=== PATIENT | male | born 1960 | race African-American/Black ===

== ENCOUNTER 2017-03-24 17:47 | Inpatient (IN) | payer SELFPAY ==
--- NOTE | 2017-03-24 20:07 | PDOC ---
History of Present Illness <Ghassan Black - Last Filed: 03/24/17 22:18> - General History Source: Patient, Family (Daughter ) Exam Limitations: No Limitations - History of Present Illness Initial Comments: 03/24/17 21:46 The patient is a 56 year old male, with a significant past medical history of hypertension (on dialysis with recent placement of a dialysis catheter in the right chest), who presents to the emergency department with weakness. The patients daughter is at the bedside. She reports that the patient was discharged 4 days ago from a hospital in [place] (where she lives) after a two week admission. She reports that the patient was initially seen at that hospital due to persistent hypertension and was ultimately admitted because it was found that he needed to have emergent dialysis. While the patient was admitted to the hospital in [place], he had a dialysis catheter placed in the right chest. The patients daughter states that the patient most recently received dialysis 5 days ago while he was admitted to the hospital. After being discharged from the hospital in [place], the patient came home to [place] but has not followed up regarding dialysis nor does he have a PMD to follow-up with. The patient's daughter came to visit the patient today. The patient reported feeling generally weak today so his daughter brought him to the ED for evaluation. Currently in the ED, the patient reports feeling nauseous. The patient denies chest pain or shortness of breath. The patient denies fever, chills, vomiting, diarrhea, melena/bpr or dysuria. The patient is a poor historian, most of the history is provided by the patient's daughter. Allergies: None reported. Past Surgical History: Right Chest Shunt Social History: Non smoker. Denies alcohol or drug use. <Obdulia Lemos - Last Filed: 03/25/17 03:22> - General Chief Complaint: Pain Stated Complaint: WEAK/NAUSEA Past History - Past Medical History Dialysis: Yes (Rt chest shunt) HTN: Yes - Psycho/Social/Smoking Cessation Hx Suicidal Ideation: No Smoking History: Never smoked Information on smoking cessation initiated: No Hx Alcohol Use: No Drug/Substance Use Hx: No Substance Use Type: None <Ghassan Black - Last Filed: 03/24/17 22:18> <Obdulia Lemos - Last Filed: 03/25/17 03:22> - Past Medical History Allergies/Adverse Reactions: Allergies Allergy/AdvReac Type Severity Reaction Status Date / Time No Known Allergies Allergy Verified 03/24/17 17:58 Home Medications: Ambulatory Orders Amlodipine Besylate 10 mg PO DAILY 03/24/17 Calcitriol [Rocaltrol -] 0.25 mcg PO DAILY 03/24/17 Carvedilol 25 mg PO BID 03/24/17 Pantoprazole Sodium 40 mg PO DAILY 03/24/17 Review of Systems - Review of Systems Able to Perform ROS?: Yes Comments:: 03/24/17 20:15 GENERAL/CONSTITUTIONAL: +Weakness. No fever or chills. HEAD, EYES, EARS, NOSE AND THROAT: No change in vision. No ear pain or discharge. No sore throat. CARDIOVASCULAR: No chest pain or shortness of breath. RESPIRATORY: No cough, wheezing, or hemoptysis. GASTROINTESTINAL: +Nausea. No vomiting, diarrhea or constipation. GENITOURINARY: No dysuria, frequency, or change in urination. MUSCULOSKELETAL: No joint or muscle swelling or pain. No neck or back pain. SKIN: No rash. NEUROLOGIC: No headache, vertigo, loss of consciousness, or change in strength/ sensation. ENDOCRINE: No increased thirst. No abnormal weight change. HEMATOLOGIC/LYMPHATIC: No anemia, easy bleeding, or history of blood clots. ALLERGIC/IMMUNOLOGIC: No hives or skin allergy. <Obdulia Lemos - Last Filed: 03/25/17 03:22> *Physical Exam - Vital Signs Last Vital Signs Temp Pulse Resp BP Pulse Ox 98.1 F 81 18 150/97 100 03/24/17 17:56 03/24/17 17:56 03/24/17 17:56 03/24/17 17:56 03/24/17 17:56 <Ghassan Black - Last Filed: 03/24/17 22:18> - Vital Signs Last Vital Signs Temp Pulse Resp BP Pulse Ox 98.1 F 81 18 150/97 100 03/24/17 17:56 03/24/17 17:56 03/24/17 17:56 03/24/17 17:56 03/24/17 17:56 - Physical Exam Comments: 03/24/17 21:11 GENERAL: Awake, alert, and fully oriented, in no acute distress. HEAD: No signs of trauma. EYES: Scleral icterus. PERRLA, EOMI, conjunctiva clear. ENT: Auricles normal inspection, hearing grossly normal, nares patent, oropharynx clear without exudates. Moist mucosa. NECK: Normal ROM, supple, no lymphadenopathy, JVD, or masses. CHEST: Dialysis catheter placed in the right chest. Catheter site is clean, dry and intact with no signs of infection. LUNGS: Breath sounds equal, clear to auscultation bilaterally. No wheezes, and no crackles. HEART: Regular rate and rhythm, normal S1 and S2, no murmurs, rubs or gallops. ABDOMEN: Soft, nontender, normoactive bowel sounds. No guarding, no rebound. No masses. EXTREMITIES: Normal range of motion, no edema. No clubbing or cyanosis. No cords , erythema, or tenderness. NEUROLOGICAL: Cranial nerves II through XII intact. Normal speech, gait deferred. SKIN: Warm, dry, normal turgor, no rashes or lesions noted. <Obdulia Lemos - Last Filed: 03/25/17 03:22> Heart Score/ECG Review #1 ECG reviewed & interpreted by me at: 20:43 (Vent Rate: 68 bpm. Normal sinus rhythm. T wave abnormality, consider lateral ischemia.) <Obdulia Lemos - Last Filed: 03/25/17 03:22> ED Treatment Course - LABORATORY CBC & Chemistry Diagram: 03/24/17 20:30 03/24/17 20:30 <Ghassan Black - Last Filed: 03/24/17 22:18> - LABORATORY CBC & Chemistry Diagram: 03/24/17 20:30 03/24/17 20:30 <Obdulia Lemos - Last Filed: 03/25/17 03:22> Medical Decision Making - Medical Decision Making 03/24/17 22:13 EXAM: RAD/CHEST PA & LAT Reviewed By: Dr. Elaina Manzo IMPRESSION: Borderline cardiomegaly likely due to magnification without evidence of acute lung disease. Call placed to Dr. Adame at 22:08. Connected and case discussed. Call placed to Dr. Ramos at at 22:08. Referred to answering service, awaiting callback. Dr. Damico returned call at 22:11, case discussed. <Obdulia Lemos - Last Filed: 03/25/17 03:22> *DC/Admit/Observation/Transfer - Discharge Dispostion Admit: Yes - Attestations Physician Attestion: 03/24/17 19:58 I, Dr. Ghassan Black, attest that this document has been prepared under my direction and personally reviewed by me in its entirety. I further attest, that it accurately reflects all work, treatment, procedures and medical decision -making performed by me. <Ghassan Black - Last Filed: 03/24/17 22:18> - Attestations Scribe Attestion: 03/24/17 20:14 Documentation prepared by Obdulia Lemos, acting as senior medical technologist for Ghassan Black MD/DO. <Obdulia Lemos - Last Filed: 03/25/17 03:22> Diagnosis at time of Disposition: Hyperkalemia, diminished renal excretion, Acute on chronic kidney failure - Discharge Dispostion Condition at time of disposition: Unchanged/Unknown
[2017-03-24 20:48] LABS: BASOPHIL 1.2 % (0-2.0); EOSINOPHIL 1.5 % (0-4.5); MCH 27.5 pg (25.7-33.7); MCHC 32.8 g/dl (32.0-35.9); MEAN CELL VOLUME 83.8 fl (80-96); MEAN PLT VOLUME 7.2 fl (7.5-11.1); NEUTROPHILS 63.3 % (42.8-82.8); PLATELET COUNT 457 K/MM3 (134-434); RDW 20.3 % (11.9-15.9); WHITE BLOOD COUNT 6.1 K/mm3 (4.0-10.0)
[2017-03-24 20:59] LABS: INR 1.07 (0.82-1.09); PROTHROMBIN TIME (PATIENT) 11.8 SEC (9.98-11.88)
[2017-03-24 21:02] LABS: ACTIVATED PTT 31.5 SECONDS (26.9-34.4)
[2017-03-24 21:05] LABS: VENOUS BLOOD GAS HCO3 20.9 meq/L (19-25); VENOUS PH 7.28 (7.32-7.42)
[2017-03-24 21:08] LABS: ALBUMIN 2.9 g/dl (3.4-5.0); BILIRUBIN,TOTAL 0.3 mg/dL (0.2-1.0)
[2017-03-24 21:13] LABS: COCKROFT - GAULT 6.58; TROPONIN I 0.25 ng/ml (0.00-0.05)
[2017-03-24 22:03] LABS: CREATININE 14.4 mg/dL (0.7-1.3)
[2017-03-24 22:04] LABS: CALCIUM 6.6 mg/dL (8.5-10.1)
[2017-03-25 02:24] VITALS: BMI 23.3
[2017-03-25] MEDS ORDERED: CARVEDILOL 25 MG TABLET (FP) PO ONE (03:00)
--- NOTE | 2017-03-25 09:21 | PN ---
Progress Note (short form) - Note Progress Note: Chief Complaint: Events noted, notes reviewed, progressive weakness with elevated Troponin I level History of Present Illness: Seen and examined on telemetry. Full consult dictated Medications: Current Medications Amlodipine Besylate (Norvasc -) 10 mg PO DAILY [facility] Carvedilol (Coreg -) 25 mg PO BID [facility] Review of Systems - Review of Systems Constitutional: denies: Chills, Fever Cardiovascular: As noted above Respiratory: denies: Cough or Sputum Production Gastrointestinal: denies: Nausea, Vomiting, Diarrhea, Constipation or Abdominal Pain Musculoskeletal: No symptoms reported Neurological: denies: Dizziness or Headaches Vital Signs: Last Vital Signs Temp Pulse Resp BP Pulse Ox 98.6 F 72 18 152/90 100 03/25/17 06:00 03/25/17 06:00 03/25/17 06:00 03/25/17 06:00 03/25/17 02:23 Intake & Output 03/22/17 03/23/17 03/24/17 03/25/17 23:59 23:59 23:59 23:59 Weight 175 lb 162 lb 12.8 oz Constitutional: No Distress, Calm Neck: Supple Negative JVD Respiratory: Clear to A&P Bilaterally Cardiovascular: S1 S2 Regular Rate and Rhythm Gastrointestinal: Soft Benign Normal Bowel Sounds Ext: Negative Edema Lab Data: CBC, BMP 03/24/17 20:30 03/24/17 20:30 Hepatic Panel Total Bilirubin 0.3 mg/dL (0.2-1.0) 03/24/17 20:30 AST 9 U/L (15-37) L 03/24/17 20:30 ALT 12 U/L (12-78) 03/24/17 20:30 Alkaline Phosphatase 76 U/L (45-117) 03/24/17 20:30 Albumin 2.9 g/dl (3.4-5.0) L 03/24/17 20:30 Assessment/Plan ASSESSMENT: 1. Progressive weakness related to acute renal failure, recently initiated on HD , missed dialysis sessions 2. Probable diastolic LV dysfunction with class I-II NYHA classification LV failure, compensated 3. CAD angina pectoris abnormal EKG with evidence of demand ischemia 4. HTN 5. Anemia PLAN: 1. Continue Coreg 2. Continue Norvasc 3. Add ACEI or ARBS since patient has been initiated on HD 4. Echocardiography to evaluate LV function and valvular function 5. HD as per renal service Isabelle Murcia MD
[2017-03-25] MEDS: amLODIPine BESYLATE 5 MG TABLET (FP) PO SCH (09:44)
[2017-03-25] MEDS: CARVEDILOL 25 MG TABLET (FP) PO SCH ×2 (09:44→21:27)
--- NOTE | 2017-03-25 10:49 | CONS ---
DATE OF CONSULTATION: 03/25/2017 REQUESTING PHYSICIAN: Kai Adame MD CHIEF COMPLAINT: Progressive weakness, elevated troponin I, cardiovascular evaluation. HISTORY OF PRESENT ILLNESS: History was obtained from the patient, a 56-year-old male of -[place] descent, with known history of hypertensive cardiovascular disease, recently noted acute renal failure initiated on hemodialysis, who denied diabetes mellitus, hypercholesterolemia, tobacco abuse, or family history of premature coronary artery disease, who presented to [facility] with progressive weakness. Patient apparently was recently hospitalized at a hospital in the [facility] where hemodialysis was initiated in view of progressive renal failure. Patient subsequently was discharged after placement of a permacath. Presenting to [facility] with progressive weakness. Patient denied any chest discomfort. Patient denied any dyspnea, orthopnea, paroxysmal nocturnal dyspnea, or peripheral edema. Patient denied any palpitations, dizziness, lightheadedness, or syncope. PAST MEDICAL HISTORY: Hypertensive cardiovascular disease, recently initiated hemodialysis for progressive renal failure. PAST SURGICAL HISTORY: None. SOCIAL HISTORY: Remote history of tobacco abuse. FAMILY HISTORY: No history of premature coronary artery disease. ALLERGIES: None reported. MEDICAL THERAPY: Currently includes: 1. Coreg 25 mg twice a day. 2. Amlodipine 10 mg once a day. REVIEW OF SYSTEMS: Head and neck: Denies headache, photophobia, blurring of vision. Respiratory: No cough or sputum production. Cardiovascular: As noted above. Gastrointestinal: Denies nausea, vomiting, diarrhea, abdominal discomfort. Genitourinary: No symptoms reported. Musculoskeletal: No symptoms reported. PHYSICAL EXAMINATION: Vital signs: Blood pressure is 152/90 mmHg, pulse rate is 72 beats per minute. Head and neck: Pupils are equally reactive to light and accommodation. Extraocular muscles are intact. Anicteric sclerae. Negative JVD. No bruit appreciated. Chest: Clear to auscultation and percussion. Cardiovascular: S1, S2 regular. No murmurs, clicks, or gallops. Abdomen: Soft, benign. Normoactive bowel sounds. Extremities: Negative edema. Intact distal pulses. No calf tenderness. STUDIES: Electrocardiogram reveals sinus rhythm, poor R-wave progression with non-specific T-wave abnormality. No prior EKG available for comparison. CBC revealed a white cell count of 6.1, hemoglobin 9.9, platelet count 457. Basic metabolic profile revealed a sodium 140, potassium 5.0, BUN 66, creatinine 14.4, glucose 113, AST 9, ALT 12. ASSESSMENT: 1. Progressive weakness, related to acute renal failure. Recently initiated on hemodialysis. Missed dialysis sessions. 2. Probable diastolic left ventricular dysfunction with class 1-2 [place] [employer] classification left ventricular failure, compensated. 3. Coronary artery disease angina pectoris, abnormal electrocardiogram with evidence of demand ischemia. 4. Hypertensive cardiovascular disease. 5. Anemia. PLAN: 1. Continuation of Coreg. 2. Continuation of Norvasc. 3. Addition of LARRY inhibitors or angiotensin receptor blockers since patient has been initiated on hemodialysis. 4. Echocardiography to evaluate left ventricular size and function and valvular function. 5. Hemodialysis as per renal service. Thank you for the kind referral. ONEYDA MENDOZA M.D. [id number]
[2017-03-25] MEDS: VALSARTAN 80 MG TABLET (UD) PO SCH ×2 (12:16→21:27)
[2017-03-25] MEDS ORDERED: HEPARIN NA (PORCINE) 5,000 UNITS/ML 1ML VIAL IVPUSH ONE (12:59)
--- NOTE | 2017-03-25 14:46 | CONSULT ---
Consult Consult Specialty:: Nephrology Reason for Consultation:: ESRD - History of Present Illness Chief Complaint: ESRD on HD History of Present Illness: Pt is a 56 year old male with pmhx of HTN and ESRD who presents to the ER last night as he has not had HD in five days. He was hospitalized in [place] for hypertensive urgency. He was started on HD in the hospital and discharged with a permacath. He has not followed up with anyone. He last dialyzed on . He denies chest pain or shortness of breath. He is a poor historian. He lives in [place] and will need HD placement. - History Source History Provided By: Patient, Medical Record - Past Medical History Cardio/Vascular: Yes: HTN Gastrointestinal: Yes: GERD Renal/: Yes: Renal Failure, Hemodialysis - Past Surgical History Additional Surgical History: permacath - Alcohol/Substance Use Hx Alcohol Use: No - Smoking History Smoking history: Never smoked Have you smoked in the past 12 months: No Home Medications - Allergies Allergies/Adverse Reactions: Allergies Allergy/AdvReac Type Severity Reaction Status Date / Time No Known Allergies Allergy Verified 03/24/17 17:58 - Home Medications Home Medications: Ambulatory Orders Amlodipine Besylate 10 mg PO DAILY 03/24/17 Calcitriol [Rocaltrol -] 0.25 mcg PO DAILY 03/24/17 Carvedilol 25 mg PO BID 03/24/17 Pantoprazole Sodium 40 mg PO DAILY 03/24/17 Family Disease History - Family Disease History Family History: Denies Review of Systems - Review of Systems Constitutional: reports: Malaise Eyes: reports: No Symptoms HENT: reports: No Symptoms Neck: reports: No Symptoms Cardiovascular: reports: No Symptoms Respiratory: reports: No Symptoms Gastrointestinal: reports: No Symptoms Genitourinary: reports: No Symptoms Musculoskeletal: reports: No Symptoms Integumentary: reports: No Symptoms Neurological: reports: No Symptoms Endocrine: reports: No Symptoms Hematology/Lymphatic: reports: No Symptoms Psychiatric: reports: No Symptoms Physical Exam Vital Signs: Vital Signs Temperature 97.8 F 03/25/17 09:00 Pulse Rate 79 03/25/17 09:00 Respiratory Rate 18 03/25/17 09:00 Blood Pressure 121/63 03/25/17 09:00 O2 Sat by Pulse Oximetry (%) 100 03/25/17 09:00 Constitutional: Yes: Calm Eyes: Yes: Conjunctiva Clear HENT: Yes: Atraumatic Neck: Yes: Supple Cardiovascular: Yes: S1, S2 Respiratory: Yes: CTA Bilaterally Gastrointestinal: Yes: Normal Bowel Sounds, Soft Renal/: Yes: WNL Musculoskeletal: Yes: WNL Edema: No Neurological: Yes: Oriented Psychiatric: Yes: Oriented Labs: Laboratory Tests 03/24/17 03/24/17 20:30 20:30 WBC 6.1 Hgb 9.9 L Plt Count 457 H Sodium 140 Potassium 5.0 Chloride 105 Carbon Dioxide 23 Anion Gap 12 BUN 66 H Creatinine 14.4 H* Calcium 6.6 L* Imaging - Results Chest X-ray: Report Reviewed Problem List - Problems (1) ESRD (end stage renal disease) Code(s): N18.6 - END STAGE RENAL DISEASE (2) Hypertension Code(s): I10 - ESSENTIAL (PRIMARY) HYPERTENSION Assessment/Plan Current Medications Generic Name Dose Route Start Last Admin Trade Name Freq PRN Reason Stop Dose Admin Amlodipine Besylate 10 mg 03/25/17 10:00 03/25/17 09:44 Norvasc - PO 10 mg DAILY [facility]TER Administration Carvedilol 25 mg 03/25/17 10:00 03/25/17 09:44 Coreg - PO 25 mg BID WALTER Administration Valsartan 80 mg 03/25/17 10:00 03/25/17 12:16 Diovan - PO 80 mg BID WALTER Administration Impression 1. ESRD 2. HTN 3. hypocalcemia 4. anemia Plan - will arrange for HD today - monitor bp - check phos level - start calcitriol and calcium supplements - check pth level - will need outpt records - check iron studies - please send packet to Jeannie Ramos
[2017-03-25 15:13] LABS: URINE APPEARANCE CLEAR; URINE BILIRUBIN NEGATIVE (NEGATIVE); URINE COLOR STRAW; URINE GLUCOSE (UA) NEGATIVE (NEGATIVE); URINE KETONE NEGATIVE (NEGATIVE); URINE LEUK ESTERASE NEGATIVE (NEGATIVE); URINE NITRITE NEGATIVE (NEGATIVE); URINE UROBILINOGEN NEGATIVE E.U./dl (0.2-1.0)
[2017-03-25 15:27] LABS: URINE BLOOD 1+ (NEGATIVE); URINE PROTEIN 2+ (NEGATIVE)
--- NOTE | 2017-03-25 15:31 | HP ---
Admitting History and Physical - Primary Care Physician PCP: Campos Adame - Admission History of Present Illness: -56 year old male with pmhx of HTN and ESRD who presents to the ER last night as he has not had HD in five days. He was hospitalized in [place] for hypertensive urgency. He was started on HD in the hospital and discharged with a permacath. He has not followed up with anyone. He last dialyzed on . He denies chest pain or shortness of breath. He is a poor historian. He lives in [place] and will need HD placement. - Past Medical History Cardiovascular: Yes: HTN Gastrointestinal: Yes: GERD Renal/: Yes: Renal Failure, Hemodialysis - Smoking History Smoking history: Never smoked Have you smoked in the past 12 months: No - Alcohol/Substance Use Hx Alcohol Use: No Home Medications - Allergies Allergies/Adverse Reactions: Allergies Allergy/AdvReac Type Severity Reaction Status Date / Time No Known Allergies Allergy Verified 03/24/17 17:58 - Home Medications Home Medications: Ambulatory Orders Amlodipine Besylate 10 mg PO DAILY 03/24/17 Calcitriol [Rocaltrol -] 0.25 mcg PO DAILY 03/24/17 Carvedilol 25 mg PO BID 03/24/17 Pantoprazole Sodium 40 mg PO DAILY 03/24/17 Family Disease History - Family Disease History Family History: Denies Physical Examination Vital Signs: Vital Signs Temperature 98.1 F 03/25/17 14:48 Pulse Rate 60 03/25/17 14:50 Respiratory Rate 18 03/25/17 14:50 Blood Pressure 155/100 03/25/17 14:50 O2 Sat by Pulse Oximetry (%) 100 03/25/17 09:00 Constitutional: Yes: No Distress HENT: Yes: Atraumatic Neck: Yes: Supple Cardiovascular: Yes: Regular Rate and Rhythm Respiratory: Yes: CTA Bilaterally Gastrointestinal: Yes: Normal Bowel Sounds Extremities: Yes: WNL Neurological: Yes: Alert, Oriented Problem List - Problems (1) Acute on chronic kidney failure Assessment/Plan: ON HD WILL GET RENAL INVOLVED Code(s): N17.9 - ACUTE KIDNEY FAILURE, UNSPECIFIED N18.9 - CHRONIC KIDNEY DISEASE, UNSPECIFIED (2) ESRD (end stage renal disease) Code(s): N18.6 - END STAGE RENAL DISEASE (3) Hypertension Assessment/Plan: ON MEDS STABLE Code(s): I10 - ESSENTIAL (PRIMARY) HYPERTENSION Assessment/Plan Laboratory Tests 03/24/17 03/24/17 03/24/17 20:30 20:30 20:30 WBC 6.1 RBC 3.60 L Hgb 9.9 L Hct 30.2 L MCV 83.8 MCHC 32.8 RDW 20.3 H Plt Count 457 H MPV 7.2 L Neutrophils % 63.3 Lymphocytes % 21.9 Monocytes % 12.1 H Eosinophils % 1.5 Basophils % 1.2 INR 1.07 PTT (Actin FS) 31.5 VBG pH POC VBG pCO2 POC VBG pO2 Mixed VBG HCO3 Sodium 140 Potassium 5.0 Chloride 105 Carbon Dioxide 23 Anion Gap 12 BUN 66 H Creatinine 14.4 H* Creat Clearance w eGFR 3.59 Random Glucose 113 H Lactic Acid Calcium 6.6 L* Total Bilirubin 0.3 AST 9 L ALT 12 Alkaline Phosphatase 76 Creatine Kinase 66 Troponin I 0.25 H Total Protein 6.0 L Albumin 2.9 L Urine Color Urine Appearance Urine pH Ur Specific Jordan Urine Protein Urine Glucose (UA) Urine Ketones Urine Blood Urine Nitrite Urine Bilirubin Urine Urobilinogen Ur Leukocyte Esterase Blood Type Antibody Screen 03/24/17 03/24/17 03/24/17 20:30 20:30 20:53 WBC RBC Hgb Hct MCV MCHC RDW Plt Count MPV Neutrophils % Lymphocytes % Monocytes % Eosinophils % Basophils % INR PTT (Actin FS) VBG pH 7.28 L POC VBG pCO2 45.9 POC VBG pO2 32.0 Mixed VBG HCO3 20.9 Sodium Potassium Chloride Carbon Dioxide Anion Gap BUN Creatinine Creat Clearance w eGFR Random Glucose Lactic Acid 0.698 Calcium Total Bilirubin AST ALT Alkaline Phosphatase Creatine Kinase Troponin I Total Protein Albumin Urine Color Urine Appearance Urine pH Ur Specific Jordan Urine Protein Urine Glucose (UA) Urine Ketones Urine Blood Urine Nitrite Urine Bilirubin Urine Urobilinogen Ur Leukocyte Esterase Blood Type B POSITIVE Antibody Screen Negative 03/25/17 14:30 WBC RBC Hgb Hct MCV MCHC RDW Plt Count MPV Neutrophils % Lymphocytes % Monocytes % Eosinophils % Basophils % INR PTT (Actin FS) VBG pH POC VBG pCO2 POC VBG pO2 Mixed VBG HCO3 Sodium Potassium Chloride Carbon Dioxide Anion Gap BUN Creatinine Creat Clearance w eGFR Random Glucose Lactic Acid Calcium Total Bilirubin AST ALT Alkaline Phosphatase Creatine Kinase Troponin I Total Protein Albumin Urine Color Straw Urine Appearance Clear Urine pH 6.0 Ur Specific Jordan 1.009 Urine Protein 2+ H Urine Glucose (UA) Negative Urine Ketones Negative Urine Blood 1+ H Urine Nitrite Negative Urine Bilirubin Negative Urine Urobilinogen Negative Ur Leukocyte Esterase Negative Blood Type Antibody Screen Active Medications Generic Name Dose Route Start Last Admin Trade Name Freq PRN Reason Stop Dose Admin Amlodipine Besylate 10 mg 03/25/17 10:00 03/25/17 09:44 Norvasc - PO 10 mg DAILY [facility] Administration Calcitriol 0.25 mcg 03/25/17 15:00 Rocaltrol - PO DAILY [facility] Calcium Acetate 667 mg 03/25/17 17:30 Phoslo - PO TIDCM [facility] Calcium Carbonate/Cholecalciferol 2 tab 03/25/17 15:00 Os-Justin 500+D - PO DAILY [facility] Carvedilol 25 mg 03/25/17 10:00 03/25/17 09:44 Coreg - PO 25 mg BID [facility] Administration Valsartan 80 mg 03/25/17 10:00 03/25/17 12:16 Diovan - PO 80 mg BID [facility] Administration
[2017-03-25 15:57] LABS: COCKROFT - GAULT 5.88
[2017-03-25] MEDS: CALCIUM ACETATE 667 MG CAPSULE (FP) PO SCH (17:57)
[2017-03-25] MEDS: CALCITRIOL 0.25 MCG CAPSULE (FP) PO SCH (17:58)
[2017-03-25] MEDS: CALCIUM 500MG/VIT-D 200 UNITS COMBO TABLET (FP) PO SCH (17:58)
[2017-03-25 19:08] LABS: CALCIUM 7.1 mg/dL (8.5-10.1); COCKROFT - GAULT 13.56; CREATININE 6.5 mg/dL (0.7-1.3)
[2017-03-26] MEDS: CALCIUM ACETATE 667 MG CAPSULE (FP) PO SCH ×3 (07:59→17:26)
--- NOTE | 2017-03-26 08:19 | EKG ---
Test Reason : Blood Pressure : / mmHG Vent. Rate : 068 BPM Atrial Rate : 068 BPM P-R Int : 170 ms QRS Dur : 074 ms QT Int : 408 ms P-R-T Axes : 068 -29 103 degrees QTc Int : 433 ms NORMAL SINUS RHYTHM T WAVE ABNORMALITY, CONSIDER LATERAL ISCHEMIA ABNORMAL ECG NO PREVIOUS ECGS AVAILABLE Confirmed by FRANKIE GARCIA MD ([id number]) on 03/26/2017 8:19:12 AM Referred By: Confirmed By:FRANKIE GARCIA MD
[2017-03-26 09:12] LABS: ALBUMIN 2.6 g/dl (3.4-5.0); BILIRUBIN,TOTAL 0.4 mg/dL (0.2-1.0); CALCIUM 7.1 mg/dL (8.5-10.1); COCKROFT - GAULT 8.25; TOT PROT 5.6 g/dl (6.4-8.2)
[2017-03-26 09:24] LABS: CREATININE 10.5 mg/dL (0.7-1.3)
--- NOTE | 2017-03-26 09:55 | PN ---
Progress Note, Physician History of Present Illness: No chest pain or dyspnea. - Current Medication List Current Medications: Active Medications Amlodipine Besylate (Norvasc -) 10 mg PO DAILY [facility] Last Admin: 03/25/17 09:44 Dose: 10 mg Calcitriol (Rocaltrol -) 0.25 mcg PO DAILY [facility] Last Admin: 03/25/17 17:58 Dose: 0.25 mcg Calcium Acetate (Phoslo -) 667 mg PO TIDCM [facility] Last Admin: 03/26/17 07:59 Dose: 667 mg Calcium Carbonate/Cholecalciferol (Os-Justin 500+D -) 2 tab PO DAILY [facility] Last Admin: 03/25/17 17:58 Dose: 2 tab Carvedilol (Coreg -) 25 mg PO BID [facility] Last Admin: 03/25/17 21:27 Dose: 25 mg Valsartan (Diovan -) 80 mg PO BID [facility] Last Admin: 03/25/17 21:27 Dose: 80 mg - Objective Vital Signs: Vital Signs Temperature 98.5 F 03/26/17 06:00 Pulse Rate 91 H 03/26/17 06:00 Respiratory Rate 18 03/26/17 06:00 Blood Pressure 156/72 03/26/17 06:00 O2 Sat by Pulse Oximetry (%) 98 03/26/17 06:00 Constitutional: Yes: No Distress, Calm Neck: Yes: Supple Cardiovascular: Yes: Regular Rate and Rhythm Respiratory: Yes: Regular, Diminished Gastrointestinal: Yes: Normal Bowel Sounds, Soft Edema: No Labs: CBC, BMP 03/26/17 05:40 INR, PTT INR 1.07 (0.82-1.09) 03/24/17 20:30 - ....Imaging EKG: Report Reviewed (Tele: [facility]) Problem List - Problems (1) Acute on chronic kidney failure Code(s): N17.9 - ACUTE KIDNEY FAILURE, UNSPECIFIED N18.9 - CHRONIC KIDNEY DISEASE, UNSPECIFIED (2) ESRD (end stage renal disease) Code(s): N18.6 - END STAGE RENAL DISEASE (3) Hypertensive cardiomyopathy Code(s): I11.9 - HYPERTENSIVE HEART DISEASE WITHOUT HEART FAILURE I42.9 - CARDIOMYOPATHY, UNSPECIFIED Qualifiers: Heart failure presence: without heart failure Qualified Code(s): I11.9 - Hypertensive heart disease without heart failure (4) Diastolic dysfunction Code(s): I51.9 - HEART DISEASE, UNSPECIFIED (5) Hypocalcemia Code(s): E83.51 - HYPOCALCEMIA Assessment/Plan 03/25/2017 Echo: Normal LV size and fxn, mod cLVH, mild LAE, mild TR, RVSP 30-40 mmHg, mild AR, Tr-mild MI 1. Progressive weakness related to acute renal failure, recently initiated on HD , missed dialysis sessions 2. LV diastolic dysfunction with class I-II NYHA classification LV failure, compensated 3. CAD angina pectoris abnormal EKG with evidence of demand ischemia 4. HTN/HCVD 5. Anemia 6. Hypocalcemia PLAN: 1. Continue Coreg 25 bid 2. Continue Norvasc 10 qd 3. Diovan 80 bid since patient has been initiated on HD 4. HD as per renal service
[2017-03-26] MEDS: VALSARTAN 80 MG TABLET (UD) PO SCH ×2 (09:56→21:43)
[2017-03-26] MEDS: amLODIPine BESYLATE 5 MG TABLET (FP) PO SCH (09:56)
[2017-03-26] MEDS: CALCIUM 500MG/VIT-D 200 UNITS COMBO TABLET (FP) PO SCH (09:56)
[2017-03-26] MEDS: CALCITRIOL 0.25 MCG CAPSULE (FP) PO SCH (09:56)
[2017-03-26] MEDS: CARVEDILOL 25 MG TABLET (FP) PO SCH ×2 (09:56→21:43)
--- NOTE | 2017-03-26 12:45 | PN ---
Progress Note, Physician History of Present Illness: Pt seen and examined at bedside. He is awake and alert. He denies shortness of breath. - Current Medication List Current Medications: Active Medications Amlodipine Besylate (Norvasc -) 10 mg PO DAILY [facility] Last Admin: 03/26/17 09:56 Dose: 10 mg Calcitriol (Rocaltrol -) 0.25 mcg PO DAILY [facility] Last Admin: 03/26/17 09:56 Dose: 0.25 mcg Calcium Acetate (Phoslo -) 667 mg PO TIDCM [facility] Last Admin: 03/26/17 12:07 Dose: 667 mg Calcium Carbonate/Cholecalciferol (Os-Justin 500+D -) 2 tab PO DAILY [facility] Last Admin: 03/26/17 09:56 Dose: 2 tab Carvedilol (Coreg -) 25 mg PO BID [facility] Last Admin: 03/26/17 09:56 Dose: 25 mg Valsartan (Diovan -) 80 mg PO BID [facility] Last Admin: 03/26/17 09:56 Dose: 80 mg - Objective Vital Signs: Vital Signs Temperature 98.7 F 03/26/17 09:00 Pulse Rate 74 03/26/17 09:00 Respiratory Rate 18 03/26/17 09:00 Blood Pressure 135/81 03/26/17 09:00 O2 Sat by Pulse Oximetry (%) 98 03/26/17 09:00 Constitutional: Yes: Calm Eyes: Yes: Conjunctiva Clear HENT: Yes: Atraumatic Cardiovascular: Yes: S1, S2 Respiratory: Yes: CTA Bilaterally Gastrointestinal: Yes: Soft Genitourinary: Yes: WNL Extremities: Yes: WNL Edema: No Neurological: Yes: Oriented Psychiatric: Yes: Oriented Labs: CBC, BMP 03/26/17 05:40 INR, PTT INR 1.07 (0.82-1.09) 03/24/17 20:30 Problem List - Problems (1) ESRD (end stage renal disease) Code(s): N18.6 - END STAGE RENAL DISEASE (2) Hypertension Code(s): I10 - ESSENTIAL (PRIMARY) HYPERTENSION Assessment/Plan Current Medications Generic Name Dose Route Start Last Admin Trade Name Freq PRN Reason Stop Dose Admin Amlodipine Besylate 10 mg 03/25/17 10:00 03/26/17 09:56 Norvasc - PO 10 mg DAILY [facility] Administration Calcitriol 0.25 mcg 03/25/17 15:00 03/26/17 09:56 Rocaltrol - PO 0.25 mcg DAILY [facility] Administration Calcium Acetate 667 mg 03/25/17 17:30 03/26/17 12:07 Phoslo - PO 667 mg TIDCM [facility] Administration Calcium Carbonate/Cholecalciferol 2 tab 03/25/17 15:00 03/26/17 09:56 Os-Justin 500+D - PO 2 tab DAILY [facility] Administration Carvedilol 25 mg 03/25/17 10:00 03/26/17 09:56 Coreg - PO 25 mg BID [facility] Administration Valsartan 80 mg 03/25/17 10:00 03/26/17 09:56 Diovan - PO 80 mg BID [facility] Administration Laboratory Tests 03/25/17 03/26/17 15:45 05:40 Phospholipids Pending PTH Intact Pending PTH Intact Intraop 0 m Pending Impression 1. ESRD 2. HTN 3. hypocalcemia 4. anemia Plan - pt tolerated HD yesterday - will arrange for HD in am - discussed with returned case inspector - will need outpt HD to be set up - check phos levels - monitor bp - will need outpt records - check iron studies Dr Ramos
--- NOTE | 2017-03-26 18:09 | PN ---
Progress Note, Physician - Current Medication List Current Medications: Active Medications Amlodipine Besylate (Norvasc -) 10 mg PO DAILY [facility] Last Admin: 03/26/17 09:56 Dose: 10 mg Calcitriol (Rocaltrol -) 0.25 mcg PO DAILY [facility] Last Admin: 03/26/17 09:56 Dose: 0.25 mcg Calcium Acetate (Phoslo -) 667 mg PO TIDCM [facility] Last Admin: 03/26/17 17:26 Dose: 667 mg Calcium Carbonate/Cholecalciferol (Os-Justin 500+D -) 2 tab PO DAILY [facility] Last Admin: 03/26/17 09:56 Dose: 2 tab Carvedilol (Coreg -) 25 mg PO BID [facility] Last Admin: 03/26/17 09:56 Dose: 25 mg Valsartan (Diovan -) 80 mg PO BID [facility] Last Admin: 03/26/17 09:56 Dose: 80 mg - Objective Vital Signs: Vital Signs Temperature 98 F 03/26/17 14:10 Pulse Rate 71 03/26/17 14:10 Respiratory Rate 18 03/26/17 14:10 Blood Pressure 142/80 03/26/17 14:10 O2 Sat by Pulse Oximetry (%) 98 03/26/17 09:00 Constitutional: Yes: No Distress HENT: Yes: Atraumatic Neck: Yes: Supple Cardiovascular: Yes: Regular Rate and Rhythm Respiratory: Yes: CTA Bilaterally Gastrointestinal: Yes: Normal Bowel Sounds Extremities: Yes: WNL Neurological: Yes: Alert, Oriented Labs: CBC, BMP 03/26/17 05:40 INR, PTT INR 1.07 (0.82-1.09) 03/24/17 20:30 Problem List - Problems (1) Acute on chronic kidney failure Assessment/Plan: ON HD WILL GET RENAL INVOLVED Code(s): N17.9 - ACUTE KIDNEY FAILURE, UNSPECIFIED N18.9 - CHRONIC KIDNEY DISEASE, UNSPECIFIED (2) ESRD (end stage renal disease) Code(s): N18.6 - END STAGE RENAL DISEASE (3) Hypertension Assessment/Plan: ON MEDS STABLE Code(s): I10 - ESSENTIAL (PRIMARY) HYPERTENSION
[2017-03-27 06:11] LABS: HEP B SURFACE AB Non Reactive (.)
[2017-03-27 07:44] LABS: BASOPHIL 1.6 % (0-2.0); MEAN CELL VOLUME 84.3 fl (80-96); MEAN PLT VOLUME 7.4 fl (7.5-11.1); PLATELET COUNT 300 K/MM3 (134-434); RDW 19.8 % (11.9-15.9); WHITE BLOOD COUNT 6.9 K/mm3 (4.0-10.0)
[2017-03-27 08:36] LABS: CALCIUM 7.1 mg/dL (8.5-10.1); COCKROFT - GAULT 7.25; FERRITIN 69.461 ng/ml (16.4-293.9); PHOSPHOROUS 5.4 mg/dL (2.5-4.9)
[2017-03-27 08:57] LABS: CREATININE 12.1 mg/dL (0.7-1.3)
[2017-03-27] MEDS: amLODIPine BESYLATE 5 MG TABLET (FP) PO SCH (09:28)
[2017-03-27] MEDS: CALCITRIOL 0.25 MCG CAPSULE (FP) PO SCH (09:28)
[2017-03-27] MEDS: CALCIUM 500MG/VIT-D 200 UNITS COMBO TABLET (FP) PO SCH (09:28)
[2017-03-27] MEDS: CALCIUM ACETATE 667 MG CAPSULE (FP) PO SCH ×3 (09:28→18:33)
[2017-03-27] MEDS: CARVEDILOL 25 MG TABLET (FP) PO SCH ×2 (09:28→21:22)
[2017-03-27] MEDS: VALSARTAN 80 MG TABLET (UD) PO SCH (09:28)
--- NOTE | 2017-03-27 11:49 | PN ---
Progress Note, Physician History of Present Illness: No chest pain or dyspnea. - Current Medication List Current Medications: Active Medications Amlodipine Besylate (Norvasc -) 10 mg PO DAILY [facility] Last Admin: 03/27/17 09:28 Dose: 10 mg Calcitriol (Rocaltrol -) 0.25 mcg PO DAILY [facility] Last Admin: 03/27/17 09:28 Dose: 0.25 mcg Calcium Acetate (Phoslo -) 667 mg PO TIDCM [facility] Last Admin: 03/27/17 09:28 Dose: 667 mg Calcium Carbonate/Cholecalciferol (Os-Justin 500+D -) 2 tab PO DAILY [facility] Last Admin: 03/27/17 09:28 Dose: 2 tab Carvedilol (Coreg -) 25 mg PO BID [facility] Last Admin: 03/27/17 09:28 Dose: 25 mg Valsartan (Diovan -) 80 mg PO BID [facility] Last Admin: 03/27/17 09:28 Dose: 80 mg - Objective Vital Signs: Vital Signs Temperature 97.8 F 03/27/17 10:57 Pulse Rate 63 03/27/17 10:35 Respiratory Rate 18 03/27/17 10:35 Blood Pressure 152/103 03/27/17 10:35 O2 Sat by Pulse Oximetry (%) 97 03/27/17 09:00 Constitutional: Yes: No Distress, Calm Neck: Yes: Supple Cardiovascular: Yes: Regular Rate and Rhythm Respiratory: Yes: Regular, Diminished Gastrointestinal: Yes: Normal Bowel Sounds, Soft Edema: No Labs: CBC, BMP 03/27/17 05:35 03/27/17 05:35 INR, PTT INR 1.07 (0.82-1.09) 03/24/17 20:30 - ....Imaging EKG: [place] Reviewed [place] [facility] [place] Problem List - Problems (1) Acute on chronic kidney failure Code(s): N17.9 - ACUTE KIDNEY FAILURE, UNSPECIFIED N18.9 - CHRONIC KIDNEY DISEASE, UNSPECIFIED (2) ESRD (end stage renal disease) Code(s): N18.6 - END STAGE RENAL DISEASE (3) Hypertensive cardiomyopathy Code(s): I11.9 - HYPERTENSIVE HEART DISEASE WITHOUT HEART FAILURE I42.9 - CARDIOMYOPATHY, UNSPECIFIED Qualifiers: Heart failure presence: without heart failure Qualified Code(s): I11.9 - Hypertensive heart disease without heart failure (4) Diastolic dysfunction Code(s): I51.9 - HEART DISEASE, UNSPECIFIED (5) Hypocalcemia Code(s): E83.51 - HYPOCALCEMIA Assessment/Plan 03/25/2017 Echo: Normal LV size and fxn, mod cLVH, mild LAE, mild TR, RVSP 30-40 mmHg, mild AR, Tr-mild [place] 1. Progressive weakness related to acute renal failure, recently initiated on HD , missed dialysis sessions 2. LV diastolic dysfunction with class I-II NYHA classification LV failure, compensated 3. CAD angina pectoris abnormal EKG with evidence of demand ischemia 4. HTN/HCVD, BP not at goal 5. Anemia 6. Hypocalcemia PLAN: 1. Continue Coreg 25 bid 2. Continue Norvasc 10 qd 3. Increase Diovan 160 bid as patient has been initiated on HD 4. HD as per renal service, outpatient HD arrangement pending insurance coverage , d/c telemetry
[2017-03-27] MEDS ORDERED: VALSARTAN 80 MG TABLET (UD) PO ONE (12:00)
--- NOTE | 2017-03-27 13:39 | PN ---
Progress Note, Physician History of Present Illness: Pt seen and examined at bedside. He is awake and alert. He tolerated HD today. - Current Medication List Current Medications: Active Medications Amlodipine Besylate (Norvasc -) 10 mg PO DAILY [facility] Last Admin: 03/27/17 09:28 Dose: 10 mg Calcitriol (Rocaltrol -) 0.25 mcg PO DAILY [facility] Last Admin: 03/27/17 09:28 Dose: 0.25 mcg Calcium Acetate (Phoslo -) 667 mg PO TIDCM [facility] Last Admin: 03/27/17 12:22 Dose: 667 mg Calcium Carbonate/Cholecalciferol (Os-Justin 500+D -) 2 tab PO DAILY [facility] Last Admin: 03/27/17 09:28 Dose: 2 tab Carvedilol (Coreg -) 25 mg PO BID [facility] Last Admin: 03/27/17 09:28 Dose: 25 mg Valsartan (Diovan -) 160 mg PO BID [facility] - Objective Vital Signs: Vital Signs Temperature 97.8 F 03/27/17 10:57 Pulse Rate 63 03/27/17 10:35 Respiratory Rate 18 03/27/17 10:35 Blood Pressure 152/103 03/27/17 10:35 O2 Sat by Pulse Oximetry (%) 97 03/27/17 09:00 Constitutional: Yes: Calm Eyes: Yes: Conjunctiva Clear HENT: Yes: Atraumatic Neck: Yes: Supple Cardiovascular: Yes: S1, S2 Respiratory: Yes: CTA Bilaterally Genitourinary: Yes: WNL Musculoskeletal: Yes: WNL Edema: No Neurological: Yes: Oriented Psychiatric: Yes: Oriented Labs: CBC, BMP 03/27/17 05:35 03/27/17 05:35 INR, PTT INR 1.07 (0.82-1.09) 03/24/17 20:30 Problem List - Problems (1) ESRD (end stage renal disease) Code(s): N18.6 - END STAGE RENAL DISEASE (2) Hypertension Code(s): I10 - ESSENTIAL (PRIMARY) HYPERTENSION Assessment/Plan Current Medications Generic Name Dose Route Start Last Admin Trade Name Freq PRN Reason Stop Dose Admin Amlodipine Besylate 10 mg 03/25/17 10:00 03/27/17 09:28 Norvasc - PO 10 mg DAILY [facility] Administration Calcitriol 0.25 mcg 03/25/17 15:00 03/27/17 09:28 Rocaltrol - PO 0.25 mcg DAILY [facility] Administration Calcium Acetate 667 mg 03/25/17 17:30 03/27/17 12:22 Phoslo - PO 667 mg TIDCM [facility] Administration Calcium Carbonate/Cholecalciferol 2 tab 03/25/17 15:00 03/27/17 09:28 Os-Justin 500+D - PO 2 tab DAILY [facility] Administration Carvedilol 25 mg 03/25/17 10:00 03/27/17 09:28 Coreg - PO 25 mg BID [facility] Administration Valsartan 160 mg 03/27/17 22:00 Diovan - PO BID [facility] Laboratory Tests 03/25/17 03/26/17 03/27/17 15:45 05:40 05:35 Phosphorus 5.4 H Phospholipids Pending PTH Intact Pending PTH Intact Intraop 0 m Pending Laboratory Tests 03/27/17 03/27/17 05:35 05:35 Iron Pending Ferritin 69.461 Impression 1. ESRD 2. HTN 3. hypocalcemia 4. anemia Plan - pt tolerated HD - will seed HD set up for outpt - cont current meds - diovan dose increasd - cont phoslo - monitor bp - will need outpt records - check iron studies Dr Ramos
[2017-03-27 14:13] LABS: CALCIUM 7.3 mg/dL (8.7-10.2)
--- NOTE | 2017-03-27 17:31 | PN ---
Progress Note, Physician - Current Medication List Current Medications: Active Medications Amlodipine Besylate (Norvasc -) 10 mg PO DAILY [facility] Last Admin: 03/27/17 09:28 Dose: 10 mg Calcitriol (Rocaltrol -) 0.25 mcg PO DAILY [facility] Last Admin: 03/27/17 09:28 Dose: 0.25 mcg Calcium Acetate (Phoslo -) 667 mg PO TIDCM [facility] Last Admin: 03/27/17 12:22 Dose: 667 mg Calcium Carbonate/Cholecalciferol (Os-Justin 500+D -) 2 tab PO DAILY [facility] Last Admin: 03/27/17 09:28 Dose: 2 tab Carvedilol (Coreg -) 25 mg PO BID [facility] Last Admin: 03/27/17 09:28 Dose: 25 mg Valsartan (Diovan -) 160 mg PO BID [facility] - Objective Vital Signs: Vital Signs Temperature 99.2 F 03/27/17 15:52 Pulse Rate 73 03/27/17 15:52 Respiratory Rate 18 03/27/17 15:52 Blood Pressure 153/95 03/27/17 15:52 O2 Sat by Pulse Oximetry (%) 97 03/27/17 09:00 Constitutional: Yes: No Distress HENT: Yes: Atraumatic Neck: Yes: Supple Cardiovascular: Yes: Regular Rate and Rhythm Respiratory: Yes: CTA Bilaterally Gastrointestinal: Yes: Normal Bowel Sounds Extremities: Yes: WNL Neurological: Yes: Alert, Oriented Labs: CBC, BMP 03/27/17 05:35 03/27/17 05:35 INR, PTT INR 1.07 (0.82-1.09) 03/24/17 20:30 Problem List - Problems (1) Acute on chronic kidney failure Assessment/Plan: ON HD WILL GET RENAL INVOLVED Code(s): N17.9 - ACUTE KIDNEY FAILURE, UNSPECIFIED N18.9 - CHRONIC KIDNEY DISEASE, UNSPECIFIED (2) ESRD (end stage renal disease) Code(s): N18.6 - END STAGE RENAL DISEASE (3) Hypertension Assessment/Plan: ON MEDS STABLE Code(s): I10 - ESSENTIAL (PRIMARY) HYPERTENSION Assessment/Plan pt awaiting insurance...dc planning
[2017-03-27] MEDS: VALSARTAN 160 MG TABLET (UD) PO SCH (21:22)
[2017-03-28] MEDS: CALCIUM ACETATE 667 MG CAPSULE (FP) PO SCH ×3 (08:50→17:29)
[2017-03-28] MEDS: CALCIUM 500MG/VIT-D 200 UNITS COMBO TABLET (FP) PO SCH (09:10)
[2017-03-28] MEDS: amLODIPine BESYLATE 5 MG TABLET (FP) PO SCH (09:10)
[2017-03-28] MEDS: CARVEDILOL 25 MG TABLET (FP) PO SCH ×2 (09:10→21:48)
[2017-03-28] MEDS: VALSARTAN 160 MG TABLET (UD) PO SCH ×2 (09:11→21:48)
[2017-03-28] MEDS: CALCITRIOL 0.25 MCG CAPSULE (FP) PO SCH (09:11)
[2017-03-28] MEDS ORDERED: PT OWN MED DRAWER 7, Y5N ONE (10:02)
--- NOTE | 2017-03-28 15:15 | PN ---
Progress Note, Physician History of Present Illness: No chest pain or dyspnea. - Current Medication List Current Medications: Active Medications Amlodipine Besylate (Norvasc -) 10 mg PO DAILY [facility] Last Admin: 03/28/17 09:10 Dose: 10 mg Calcitriol (Rocaltrol -) 0.25 mcg PO DAILY [facility] Last Admin: 03/28/17 09:11 Dose: 0.25 mcg Calcium Acetate (Phoslo -) 667 mg PO TIDCM [facility] Last Admin: 03/28/17 13:12 Dose: 667 mg Calcium Carbonate/Cholecalciferol (Os-Justin 500+D -) 2 tab PO DAILY [facility] Last Admin: 03/28/17 09:10 Dose: 2 tab Carvedilol (Coreg -) 25 mg PO BID [facility] Last Admin: 03/28/17 09:10 Dose: 25 mg Valsartan (Diovan -) 160 mg PO BID [facility] Last Admin: 03/28/17 09:11 Dose: 160 mg - Objective Vital Signs: Vital Signs Temperature 98.6 F 03/28/17 14:08 Pulse Rate 69 03/28/17 14:08 Respiratory Rate 20 03/28/17 14:08 Blood Pressure 141/89 03/28/17 14:08 O2 Sat by Pulse Oximetry (%) 98 03/28/17 09:00 Constitutional: Yes: No Distress, Calm Neck: Yes: Supple Cardiovascular: Yes: Regular Rate and Rhythm, Murmur (1/6 SM) Respiratory: Yes: Regular, Diminished Gastrointestinal: Yes: Normal Bowel Sounds, Soft Edema: No Labs: CBC, BMP 03/27/17 05:35 03/27/17 05:35 INR, PTT INR 1.07 (0.82-1.09) 03/24/17 20:30 Problem List - Problems (1) Acute on chronic kidney failure Code(s): N17.9 - ACUTE KIDNEY FAILURE, UNSPECIFIED N18.9 - CHRONIC KIDNEY DISEASE, UNSPECIFIED (2) ESRD (end stage renal disease) Code(s): N18.6 - END STAGE RENAL DISEASE (3) Hypertensive cardiomyopathy Code(s): I11.9 - HYPERTENSIVE HEART DISEASE WITHOUT HEART FAILURE I42.9 - CARDIOMYOPATHY, UNSPECIFIED Qualifiers: Heart failure presence: without heart failure Qualified Code(s): I11.9 - Hypertensive heart disease without heart failure (4) Diastolic dysfunction Code(s): I51.9 - HEART DISEASE, UNSPECIFIED (5) Hypocalcemia Code(s): E83.51 - HYPOCALCEMIA Assessment/Plan 03/25/2017 Echo: Normal LV size and fxn, mod cLVH, mild LAE, mild TR, RVSP 30-40 mmHg, mild AR, Tr-mild [place] 1. Progressive weakness related to acute renal failure, recently initiated on HD , missed dialysis sessions 2. LV diastolic dysfunction with class I-II NYHA classification LV failure, compensated 3. CAD angina pectoris abnormal EKG with evidence of demand ischemia 4. HTN/HCVD, BP control improved 5. Anemia 6. Hypocalcemia PLAN: 1. Continue Coreg 25 bid 2. Continue Norvasc 10 qd 3. Maintain on Diovan 160 bid as patient has been initiated on HD 4. HD as per renal service, outpatient HD arrangement pending insurance coverage
--- NOTE | 2017-03-28 15:47 | PN ---
Progress Note, Physician History of Present Illness: Pt seen and examined at bedside. He is awake and alert. - Current Medication List Current Medications: Active Medications Amlodipine Besylate (Norvasc -) 10 mg PO DAILY [facility] Last Admin: 03/28/17 09:10 Dose: 10 mg Calcitriol (Rocaltrol -) 0.25 mcg PO DAILY [facility] Last Admin: 03/28/17 09:11 Dose: 0.25 mcg Calcium Acetate (Phoslo -) 667 mg PO TIDCM [facility] Last Admin: 03/28/17 13:12 Dose: 667 mg Calcium Carbonate/Cholecalciferol (Os-Justin 500+D -) 2 tab PO DAILY [facility] Last Admin: 03/28/17 09:10 Dose: 2 tab Carvedilol (Coreg -) 25 mg PO BID [facility] Last Admin: 03/28/17 09:10 Dose: 25 mg Valsartan (Diovan -) 160 mg PO BID [facility] Last Admin: 03/28/17 09:11 Dose: 160 mg - Objective Vital Signs: Vital Signs Temperature 98.6 F 03/28/17 14:08 Pulse Rate 69 03/28/17 14:08 Respiratory Rate 20 03/28/17 14:08 Blood Pressure 141/89 03/28/17 14:08 O2 Sat by Pulse Oximetry (%) 98 03/28/17 09:00 Constitutional: Yes: Calm Eyes: Yes: Conjunctiva Clear HENT: Yes: Atraumatic Neck: Yes: Supple Cardiovascular: Yes: S1, S2 Respiratory: Yes: CTA Bilaterally Gastrointestinal: Yes: Soft Musculoskeletal: Yes: WNL Edema: No Neurological: Yes: Oriented Psychiatric: Yes: Oriented Labs: CBC, BMP 03/27/17 05:35 03/27/17 05:35 INR, PTT INR 1.07 (0.82-1.09) 03/24/17 20:30 Problem List - Problems (1) ESRD (end stage renal disease) Code(s): N18.6 - END STAGE RENAL DISEASE (2) Hypertension Code(s): I10 - ESSENTIAL (PRIMARY) HYPERTENSION Assessment/Plan Current Medications Generic Name Dose Route Start Last Admin Trade Name Freq PRN Reason Stop Dose Admin Amlodipine Besylate 10 mg 03/25/17 10:00 03/28/17 09:10 Norvasc - PO 10 mg DAILY [facility] Administration Calcitriol 0.25 mcg 03/25/17 15:00 03/28/17 09:11 Rocaltrol - PO 0.25 mcg DAILY [facility] Administration Calcium Acetate 667 mg 03/25/17 17:30 03/28/17 13:12 Phoslo - PO 667 mg TIDCM [facility] Administration Calcium Carbonate/Cholecalciferol 2 tab 03/25/17 15:00 03/28/17 09:10 Os-Justin 500+D - PO 2 tab DAILY [facility] Administration Carvedilol 25 mg 03/25/17 10:00 03/28/17 09:10 Coreg - PO 25 mg BID [facility] Administration Valsartan 160 mg 03/27/17 22:00 03/28/17 09:11 Diovan - PO 160 mg BID [facility] Administration Laboratory Tests 03/25/17 15:45 PTH Intact 746 H Laboratory Tests 03/27/17 03/27/17 05:35 05:35 Iron 34 L Ferritin 69.461 Impression 1. ESRD 2. HTN 3. hypocalcemia 4. anemia Plan - HD in am - cont calcitriol - pending outpt HD placement - cont phoslo - monitor bp - start iron supplements Dr Ramos
[2017-03-28] MEDS: FERROUS SO4 325 MG TABLET (FP) PO SCH (17:29)
--- NOTE | 2017-03-28 19:55 | PN ---
Progress Note, Physician History of Present Illness: no complaints - Current Medication List Current Medications: Active Medications Amlodipine Besylate (Norvasc -) 10 mg PO DAILY [facility] Last Admin: 03/28/17 09:10 Dose: 10 mg Calcitriol (Rocaltrol -) 0.25 mcg PO DAILY [facility] Last Admin: 03/28/17 09:11 Dose: 0.25 mcg Calcium Acetate (Phoslo -) 667 mg PO TIDCM [facility] Last Admin: 03/28/17 17:29 Dose: 667 mg Calcium Carbonate/Cholecalciferol (Os-Justin 500+D -) 2 tab PO DAILY [facility] Last Admin: 03/28/17 09:10 Dose: 2 tab Carvedilol (Coreg -) 25 mg PO BID [facility] Last Admin: 03/28/17 09:10 Dose: 25 mg Ferrous Sulfate (Feosol -) 325 mg PO BIDWM [facility] Last Admin: 03/28/17 17:29 Dose: 325 mg Valsartan (Diovan -) 160 mg PO BID [facility] Last Admin: 03/28/17 09:11 Dose: 160 mg - Objective Vital Signs: Vital Signs Temperature 98.6 F 03/28/17 14:08 Pulse Rate 69 03/28/17 14:08 Respiratory Rate 20 03/28/17 14:08 Blood Pressure 141/89 03/28/17 14:08 O2 Sat by Pulse Oximetry (%) 98 03/28/17 09:00 Constitutional: Yes: No Distress HENT: Yes: Atraumatic Neck: Yes: Supple Cardiovascular: Yes: Regular Rate and Rhythm Respiratory: Yes: CTA Bilaterally Gastrointestinal: Yes: Normal Bowel Sounds Extremities: Yes: WNL Neurological: Yes: Alert, Oriented Labs: CBC, BMP 03/27/17 05:35 03/27/17 05:35 INR, PTT INR 1.07 (0.82-1.09) 03/24/17 20:30 Problem List - Problems (1) Acute on chronic kidney failure Assessment/Plan: ON HD renal on board Code(s): N17.9 - ACUTE KIDNEY FAILURE, UNSPECIFIED N18.9 - CHRONIC KIDNEY DISEASE, UNSPECIFIED (2) ESRD (end stage renal disease) Code(s): N18.6 - END STAGE RENAL DISEASE (3) Hypertension Assessment/Plan: ON MEDS STABLE Code(s): I10 - ESSENTIAL (PRIMARY) HYPERTENSION
[2017-03-29 07:39] LABS: BASOPHIL 1.5 % (0-2.0); EOSINOPHIL 1.4 % (0-4.5); MCHC 32.3 g/dl (32.0-35.9); MEAN CELL VOLUME 83.5 fl (80-96); MEAN PLT VOLUME 7.4 fl (7.5-11.1); NEUTROPHILS 67.4 % (42.8-82.8); PLATELET COUNT 239 K/MM3 (134-434); RDW 19.1 % (11.9-15.9); WHITE BLOOD COUNT 8.6 K/mm3 (4.0-10.0)
[2017-03-29 08:04] LABS: CALCIUM 7.7 mg/dL (8.5-10.1)
[2017-03-29 08:14] LABS: COCKROFT - GAULT 8.51
[2017-03-29 08:17] LABS: CREATININE 10.5 mg/dL (0.7-1.3)
--- NOTE | 2017-03-29 10:50 | PN ---
Progress Note, Physician Chief Complaint: Events noted Seen during dialysis History of Present Illness: Patient was seen and examined. Awake and alert. Chart was reviewed Denies chest pain, SOB or palpitations - Current Medication List Current Medications: Active Medications Amlodipine Besylate (Norvasc -) 10 mg PO DAILY [facility] Last Admin: 03/28/17 09:10 Dose: 10 mg Calcitriol (Rocaltrol -) 0.25 mcg PO DAILY [facility] Last Admin: 03/28/17 09:11 Dose: 0.25 mcg Calcium Acetate (Phoslo -) 667 mg PO TIDCM [facility] Last Admin: 03/28/17 17:29 Dose: 667 mg Calcium Carbonate/Cholecalciferol (Os-Justin 500+D -) 2 tab PO DAILY [facility] Last Admin: 03/28/17 09:10 Dose: 2 tab Carvedilol (Coreg -) 25 mg PO BID [facility] Last Admin: 03/28/17 21:48 Dose: 25 mg Ferrous Sulfate (Feosol -) 325 mg PO BIDWM [facility] Last Admin: 03/28/17 17:29 Dose: 325 mg Valsartan (Diovan -) 160 mg PO BID [facility] Last Admin: 03/28/17 21:48 Dose: 160 mg - Objective Vital Signs: Vital Signs Temperature 97.8 F H 03/29/17 07:10 Pulse Rate 70 03/29/17 10:45 Respiratory Rate 18 03/29/17 10:45 Blood Pressure 162/103 03/29/17 10:45 O2 Sat by Pulse Oximetry (%) 99 03/28/17 21:00 Neck: Yes: Supple Cardiovascular: Yes: Regular Rate and Rhythm, Murmur (aSoft SM), S1, S2 Respiratory: Yes: Diminished Gastrointestinal: Yes: Normal Bowel Sounds, Soft. No: Tenderness Edema: No Labs: CBC, BMP 03/29/17 07:20 03/29/17 07:20 Problem List - Problems (1) Acute on chronic kidney failure Code(s): N17.9 - ACUTE KIDNEY FAILURE, UNSPECIFIED N18.9 - CHRONIC KIDNEY DISEASE, UNSPECIFIED (2) Diastolic dysfunction Code(s): I51.9 - HEART DISEASE, UNSPECIFIED (3) Hypertension Code(s): I10 - ESSENTIAL (PRIMARY) HYPERTENSION Qualifiers: Hypertension type: essential hypertension Qualified Code(s): I10 - Essential (primary) hypertension Assessment/Plan 1. Progressive weakness related to acute renal failure, recently initiated on HD 2. LV diastolic dysfunction with class I-II NYHA classification LV failure, compensated 3. CAD angina pectoris abnormal EKG with evidence of demand ischemia 4. HTN/HCVD 5. Anemia 6. Hypocalcemia PLAN: 1. Continue Coreg 25 mg bid 2. Continue Norvasc 10 mg qd and Diovan 160 bid 3. HD as per renal service Further plans are to follow Mateus Singh MD
[2017-03-29] MEDS: amLODIPine BESYLATE 5 MG TABLET (FP) PO SCH (11:48)
[2017-03-29] MEDS: FERROUS SO4 325 MG TABLET (FP) PO SCH ×2 (11:49→17:21)
[2017-03-29] MEDS: VALSARTAN 160 MG TABLET (UD) PO SCH ×2 (11:49→21:56)
[2017-03-29] MEDS: CALCIUM ACETATE 667 MG CAPSULE (FP) PO SCH ×3 (11:49→17:21)
[2017-03-29] MEDS: CALCIUM 500MG/VIT-D 200 UNITS COMBO TABLET (FP) PO SCH (11:49)
[2017-03-29] MEDS: CARVEDILOL 25 MG TABLET (FP) PO SCH ×2 (11:49→21:56)
[2017-03-29] MEDS: CALCITRIOL 0.25 MCG CAPSULE (FP) PO SCH (11:50)
--- NOTE | 2017-03-29 18:08 | PN ---
Progress Note, Physician History of Present Illness: Pt seen and examined at bedside. He is awake and alert. - Current Medication List Current Medications: Active Medications Amlodipine Besylate (Norvasc -) 10 mg PO DAILY [facility] Last Admin: 03/29/17 11:48 Dose: 10 mg Calcitriol (Rocaltrol -) 0.25 mcg PO DAILY [facility] Last Admin: 03/29/17 11:50 Dose: 0.25 mcg Calcium Acetate (Phoslo -) 667 mg PO TIDCM [facility] Last Admin: 03/29/17 17:21 Dose: 667 mg Calcium Carbonate/Cholecalciferol (Os-Justin 500+D -) 2 tab PO DAILY [facility] Last Admin: 03/29/17 11:49 Dose: 2 tab Carvedilol (Coreg -) 25 mg PO BID [facility] Last Admin: 03/29/17 11:49 Dose: 25 mg Ferrous Sulfate (Feosol -) 325 mg PO BIDWM [facility] Last Admin: 03/29/17 17:21 Dose: 325 mg Valsartan (Diovan -) 160 mg PO BID [facility] Last Admin: 03/29/17 11:49 Dose: 160 mg - Objective Vital Signs: Vital Signs Temperature 98.2 F 03/29/17 17:25 Pulse Rate 72 03/29/17 17:25 Respiratory Rate 20 03/29/17 17:25 Blood Pressure 128/71 03/29/17 17:25 O2 Sat by Pulse Oximetry (%) 99 03/29/17 09:00 Constitutional: Yes: Calm Eyes: Yes: Conjunctiva Clear HENT: Yes: Atraumatic Neck: Yes: Supple Cardiovascular: Yes: S1, S2 Respiratory: Yes: CTA Bilaterally Gastrointestinal: Yes: Normal Bowel Sounds, Soft Genitourinary: Yes: WNL Musculoskeletal: Yes: WNL Edema: No Neurological: Yes: Oriented Psychiatric: Yes: Oriented Labs: CBC, BMP 03/29/17 07:20 03/29/17 07:20 INR, PTT INR 1.07 (0.82-1.09) 03/24/17 20:30 Problem List - Problems (1) ESRD (end stage renal disease) Code(s): N18.6 - END STAGE RENAL DISEASE (2) Hypertension Code(s): I10 - ESSENTIAL (PRIMARY) HYPERTENSION Assessment/Plan Current Medications Generic Name Dose Route Start Last Admin Trade Name Freq PRN Reason Stop Dose Admin Amlodipine Besylate 10 mg 03/25/17 10:00 03/29/17 11:48 Norvasc - PO 10 mg DAILY [facility] Administration Calcitriol 0.25 mcg 03/25/17 15:00 03/29/17 11:50 Rocaltrol - PO 0.25 mcg DAILY [facility] Administration Calcium Acetate 667 mg 03/25/17 17:30 03/29/17 17:21 Phoslo - PO 667 mg TIDCM [facility] Administration Calcium Carbonate/Cholecalciferol 2 tab 03/25/17 15:00 03/29/17 11:49 Os-Justin 500+D - PO 2 tab DAILY [facility] Administration Carvedilol 25 mg 03/25/17 10:00 03/29/17 11:49 Coreg - PO 25 mg BID [facility] Administration Ferrous Sulfate 325 mg 03/28/17 17:30 03/29/17 17:21 Feosol - PO 325 mg BIDWM [facility] Administration Valsartan 160 mg 03/27/17 22:00 03/29/17 11:49 Diovan - PO 160 mg BID [facility] Administration Impression 1. ESRD 2. HTN 3. hypocalcemia improving 4. anemia Plan - pt tolerated HD - blood pressure is improved - cont current meds - cont phoslo - cont iron supplements Dr Ramos
--- NOTE | 2017-03-29 18:23 | PN ---
Progress Note, Physician History of Present Illness: no complaints - Current Medication List Current Medications: Active Medications Amlodipine Besylate (Norvasc -) 10 mg PO DAILY [facility] Last Admin: 03/29/17 11:48 Dose: 10 mg Calcitriol (Rocaltrol -) 0.25 mcg PO DAILY [facility] Last Admin: 03/29/17 11:50 Dose: 0.25 mcg Calcium Acetate (Phoslo -) 667 mg PO TIDCM [facility] Last Admin: 03/29/17 17:21 Dose: 667 mg Calcium Carbonate/Cholecalciferol (Os-Justin 500+D -) 2 tab PO DAILY [facility] Last Admin: 03/29/17 11:49 Dose: 2 tab Carvedilol (Coreg -) 25 mg PO BID [facility] Last Admin: 03/29/17 11:49 Dose: 25 mg Ferrous Sulfate (Feosol -) 325 mg PO BIDWM [facility] Last Admin: 03/29/17 17:21 Dose: 325 mg Valsartan (Diovan -) 160 mg PO BID [facility] Last Admin: 03/29/17 11:49 Dose: 160 mg - Objective Vital Signs: Vital Signs Temperature 98.2 F 03/29/17 17:25 Pulse Rate 72 03/29/17 17:25 Respiratory Rate 20 03/29/17 17:25 Blood Pressure 128/71 03/29/17 17:25 O2 Sat by Pulse Oximetry (%) 99 03/29/17 09:00 Constitutional: Yes: No Distress HENT: Yes: Atraumatic Neck: Yes: Supple Cardiovascular: Yes: Regular Rate and Rhythm Respiratory: Yes: CTA Bilaterally Gastrointestinal: Yes: Normal Bowel Sounds Extremities: Yes: WNL Labs: CBC, BMP 03/29/17 07:20 03/29/17 07:20 INR, PTT INR 1.07 (0.82-1.09) 03/24/17 20:30 Problem List - Problems (1) Acute on chronic kidney failure Assessment/Plan: ON HD renal on board Code(s): N17.9 - ACUTE KIDNEY FAILURE, UNSPECIFIED N18.9 - CHRONIC KIDNEY DISEASE, UNSPECIFIED (2) ESRD (end stage renal disease) Code(s): N18.6 - END STAGE RENAL DISEASE (3) Hypertension Assessment/Plan: ON MEDS STABLE Code(s): I10 - ESSENTIAL (PRIMARY) HYPERTENSION Qualifiers: Hypertension type: essential hypertension Qualified Code(s): I10 - Essential (primary) hypertension Assessment/Plan pt awaiting insurance...dc planning
[2017-03-30] MEDS: FERROUS SO4 325 MG TABLET (FP) PO SCH ×2 (08:52→17:12)
[2017-03-30] MEDS: CALCIUM ACETATE 667 MG CAPSULE (FP) PO SCH ×3 (08:52→17:12)
[2017-03-30] MEDS: CALCIUM 500MG/VIT-D 200 UNITS COMBO TABLET (FP) PO SCH (09:01)
[2017-03-30] MEDS: VALSARTAN 160 MG TABLET (UD) PO SCH ×2 (09:01→21:38)
[2017-03-30] MEDS: CALCITRIOL 0.25 MCG CAPSULE (FP) PO SCH (09:01)
[2017-03-30] MEDS: amLODIPine BESYLATE 5 MG TABLET (FP) PO SCH (09:01)
[2017-03-30] MEDS: CARVEDILOL 25 MG TABLET (FP) PO SCH ×2 (09:01→21:38)
--- NOTE | 2017-03-30 10:23 | PN ---
Progress Note, Physician History of Present Illness: Pt seen and examined. No new events. - Current Medication List Current Medications: Active Medications Amlodipine Besylate (Norvasc -) 10 mg PO DAILY [facility] Last Admin: 03/30/17 09:01 Dose: 10 mg Calcitriol (Rocaltrol -) 0.25 mcg PO DAILY [facility] Last Admin: 03/30/17 09:01 Dose: 0.25 mcg Calcium Acetate (Phoslo -) 667 mg PO TIDCM [facility] Last Admin: 03/30/17 08:52 Dose: 667 mg Calcium Carbonate/Cholecalciferol (Os-Justin 500+D -) 2 tab PO DAILY [facility] Last Admin: 03/30/17 09:01 Dose: 2 tab Carvedilol (Coreg -) 25 mg PO BID [facility] Last Admin: 03/30/17 09:01 Dose: 25 mg Ferrous Sulfate (Feosol -) 325 mg PO BIDWM [facility] Last Admin: 03/30/17 08:52 Dose: 325 mg Valsartan (Diovan -) 160 mg PO BID [facility] Last Admin: 03/30/17 09:01 Dose: 160 mg - Objective Vital Signs: Vital Signs Temperature 98.8 F 03/30/17 06:00 Pulse Rate 72 03/30/17 06:00 Respiratory Rate 18 03/30/17 06:00 Blood Pressure 152/96 03/30/17 06:00 O2 Sat by Pulse Oximetry (%) 998 H 03/29/17 21:00 Constitutional: Yes: Calm Eyes: Yes: Conjunctiva Clear HENT: Yes: Atraumatic Cardiovascular: Yes: S1, S2 Respiratory: Yes: CTA Bilaterally Gastrointestinal: Yes: Soft Genitourinary: Yes: WNL Edema: No Neurological: Yes: Oriented Psychiatric: Yes: Oriented Labs: CBC, BMP 03/29/17 07:20 03/29/17 07:20 INR, PTT INR 1.07 (0.82-1.09) 03/24/17 20:30 Problem List - Problems (1) ESRD (end stage renal disease) Code(s): N18.6 - END STAGE RENAL DISEASE (2) Hypertension Code(s): I10 - ESSENTIAL (PRIMARY) HYPERTENSION Qualifiers: Hypertension type: essential hypertension Qualified Code(s): I10 - Essential (primary) hypertension (3) Hyperparathyroidism due to renal insufficiency Code(s): N25.81 - SECONDARY HYPERPARATHYROIDISM OF RENAL ORIGIN Assessment/Plan Current Medications Generic Name Dose Route Start Last Admin Trade Name Jenelle PRN Reason Stop Dose Admin Amlodipine Besylate 10 mg 03/25/17 10:00 03/30/17 09:01 Norvasc - PO 10 mg DAILY [facility] Administration Calcitriol 0.25 mcg 03/25/17 15:00 03/30/17 09:01 Rocaltrol - PO 0.25 mcg DAILY [facility] Administration Calcium Acetate 667 mg 03/25/17 17:30 03/30/17 08:52 Phoslo - PO 667 mg TIDCM [facility] Administration Calcium Carbonate/Cholecalciferol 2 tab 03/25/17 15:00 03/30/17 09:01 Os-Justin 500+D - PO 2 tab DAILY [facility] Administration Carvedilol 25 mg 03/25/17 10:00 03/30/17 09:01 Coreg - PO 25 mg BID [facility] Administration Ferrous Sulfate 325 mg 03/28/17 17:30 03/30/17 08:52 Feosol - PO 325 mg BIDWM [facility] Administration Valsartan 160 mg 03/27/17 22:00 03/30/17 09:01 Diovan - PO 160 mg BID [facility] Administration Laboratory Tests 03/25/17 15:45 PTH Intact 746 H Impression 1. ESRD 2. HTN 3. hypocalcemia improving 4. anemia 5. hyperparathyroidism due to renal disease Plan - next Friday - cont current meds - repeat BP after am meds - cont phoslo - cont iron supplements Dr Ramos
--- NOTE | 2017-03-30 14:19 | PN ---
Progress Note, Physician History of Present Illness: no complaints - Current Medication List Current Medications: Active Medications Amlodipine Besylate (Norvasc -) 10 mg PO DAILY [facility] Last Admin: 03/30/17 09:01 Dose: 10 mg Calcitriol (Rocaltrol -) 0.25 mcg PO DAILY [facility] Last Admin: 03/30/17 09:01 Dose: 0.25 mcg Calcium Acetate (Phoslo -) 667 mg PO TIDCM [facility] Last Admin: 03/30/17 12:14 Dose: 667 mg Calcium Carbonate/Cholecalciferol (Os-Justin 500+D -) 2 tab PO DAILY [facility] Last Admin: 03/30/17 09:01 Dose: 2 tab Carvedilol (Coreg -) 25 mg PO BID [facility] Last Admin: 03/30/17 09:01 Dose: 25 mg Ferrous Sulfate (Feosol -) 325 mg PO BIDWM [facility] Last Admin: 03/30/17 08:52 Dose: 325 mg Valsartan (Diovan -) 160 mg PO BID [facility] Last Admin: 03/30/17 09:01 Dose: 160 mg - Objective Vital Signs: Vital Signs Temperature 98.8 F 03/30/17 06:00 Pulse Rate 72 03/30/17 06:00 Respiratory Rate 18 03/30/17 06:00 Blood Pressure 152/96 03/30/17 06:00 O2 Sat by Pulse Oximetry (%) 998 H 03/29/17 21:00 HENT: Yes: Atraumatic Neck: Yes: Supple Cardiovascular: Yes: Regular Rate and Rhythm Respiratory: Yes: CTA Bilaterally Gastrointestinal: Yes: Normal Bowel Sounds Extremities: Yes: WNL Neurological: Yes: Alert, Oriented Labs: CBC, BMP 03/29/17 07:20 03/29/17 07:20 INR, PTT INR 1.07 (0.82-1.09) 03/24/17 20:30 Problem List - Problems (1) Acute on chronic kidney failure Assessment/Plan: ON HD renal on board Code(s): N17.9 - ACUTE KIDNEY FAILURE, UNSPECIFIED N18.9 - CHRONIC KIDNEY DISEASE, UNSPECIFIED (2) ESRD (end stage renal disease) Code(s): N18.6 - END STAGE RENAL DISEASE (3) Hypertension Assessment/Plan: ON MEDS STABLE Code(s): I10 - ESSENTIAL (PRIMARY) HYPERTENSION Qualifiers: Hypertension type: essential hypertension Qualified Code(s): I10 - Essential (primary) hypertension
[2017-03-31] MEDS: CALCIUM ACETATE 667 MG CAPSULE (FP) PO SCH ×3 (08:16→17:40)
[2017-03-31] MEDS: FERROUS SO4 325 MG TABLET (FP) PO SCH ×2 (08:16→17:41)
[2017-03-31] MEDS: amLODIPine BESYLATE 5 MG TABLET (FP) PO SCH (09:41)
[2017-03-31] MEDS: CALCITRIOL 0.25 MCG CAPSULE (FP) PO SCH (09:41)
[2017-03-31] MEDS: CARVEDILOL 25 MG TABLET (FP) PO SCH ×2 (09:42→21:27)
[2017-03-31] MEDS: CALCIUM 500MG/VIT-D 200 UNITS COMBO TABLET (FP) PO SCH (09:42)
[2017-03-31] MEDS: VALSARTAN 160 MG TABLET (UD) PO SCH ×2 (09:42→21:27)
--- NOTE | 2017-03-31 11:08 | PN ---
Progress Note, Physician History of Present Illness: No chest pain or dyspnea. - Current Medication List Current Medications: Active Medications Amlodipine Besylate (Norvasc -) 10 mg PO DAILY [facility] Last Admin: 03/31/17 09:41 Dose: 10 mg Calcitriol (Rocaltrol -) 0.25 mcg PO DAILY [facility] Last Admin: 03/31/17 09:41 Dose: 0.25 mcg Calcium Acetate (Phoslo -) 667 mg PO TIDCM [facility] Last Admin: 03/31/17 08:16 Dose: 667 mg Calcium Carbonate/Cholecalciferol (Os-Justin 500+D -) 2 tab PO DAILY [facility] Last Admin: 03/31/17 09:42 Dose: 2 tab Carvedilol (Coreg -) 25 mg PO BID [facility] Last Admin: 03/31/17 09:42 Dose: 25 mg Ferrous Sulfate (Feosol -) 325 mg PO BIDWM [facility] Last Admin: 03/31/17 08:16 Dose: 325 mg Valsartan (Diovan -) 160 mg PO BID [facility] Last Admin: 03/31/17 09:42 Dose: 160 mg - Objective Vital Signs: Vital Signs Temperature 98.1 F 03/31/17 06:00 Pulse Rate 72 03/31/17 06:00 Respiratory Rate 16 03/31/17 06:00 Blood Pressure 144/86 03/31/17 06:00 O2 Sat by Pulse Oximetry (%) 100 03/30/17 21:00 Constitutional: Yes: No Distress, Calm Neck: Yes: Supple Cardiovascular: Yes: Regular Rate and Rhythm Respiratory: Yes: Regular, Diminished Gastrointestinal: Yes: Normal Bowel Sounds, Soft Edema: No Labs: CBC, BMP 03/29/17 07:20 03/29/17 07:20 INR, PTT INR 1.07 (0.82-1.09) 03/24/17 20:30 Problem List - Problems (1) Acute on chronic kidney failure Code(s): N17.9 - ACUTE KIDNEY FAILURE, UNSPECIFIED N18.9 - CHRONIC KIDNEY DISEASE, UNSPECIFIED (2) ESRD (end stage renal disease) Code(s): N18.6 - END STAGE RENAL DISEASE (3) Hypertensive cardiomyopathy Code(s): I11.9 - HYPERTENSIVE HEART DISEASE WITHOUT HEART FAILURE I42.9 - CARDIOMYOPATHY, UNSPECIFIED Qualifiers: Heart failure presence: without heart failure Qualified Code(s): I11.9 - Hypertensive heart disease without heart failure (4) Diastolic dysfunction Code(s): I51.9 - HEART DISEASE, UNSPECIFIED (5) Hypocalcemia Code(s): E83.51 - HYPOCALCEMIA (6) Hyperparathyroidism due to renal insufficiency Code(s): N25.81 - SECONDARY HYPERPARATHYROIDISM OF RENAL ORIGIN Assessment/Plan 03/25/2017 Echo: Normal LV size and fxn, mod cLVH, mild LAE, mild TR, RVSP 30-40 mmHg, mild [place], Tr-mild [place] 1. Progressive weakness related to acute renal failure, recently initiated on HD , missed dialysis sessions 2. LV diastolic dysfunction with class I-II NYHA classification LV failure, compensated 3. CAD angina pectoris abnormal EKG with evidence of demand ischemia 4. HTN/HCVD, BP control improved 5. Anemia 6. Hypocalcemia 7. Hyperparathyroidism due to renal disease PLAN: 1. Continue Coreg 25 mg bid 2. Continue Norvasc 10 mg qd and Diovan 160 bid 3. HD as per renal service, outpatient HD arrangement pending insurance coverage
--- NOTE | 2017-03-31 15:59 | PN ---
Progress Note, Physician History of Present Illness: Pt seen and examined at bedside. He is awake and alert. - Current Medication List Current Medications: Active Medications Amlodipine Besylate (Norvasc -) 10 mg PO DAILY [facility] Last Admin: 03/31/17 09:41 Dose: 10 mg Calcitriol (Rocaltrol -) 0.25 mcg PO DAILY [facility] Last Admin: 03/31/17 09:41 Dose: 0.25 mcg Calcium Acetate (Phoslo -) 667 mg PO TIDCM [facility] Last Admin: 03/31/17 12:47 Dose: 667 mg Calcium Carbonate/Cholecalciferol (Os-Justin 500+D -) 2 tab PO DAILY [facility] Last Admin: 03/31/17 09:42 Dose: 2 tab Carvedilol (Coreg -) 25 mg PO BID [facility] Last Admin: 03/31/17 09:42 Dose: 25 mg Ferrous Sulfate (Feosol -) 325 mg PO BIDWM [facility] Last Admin: 03/31/17 08:16 Dose: 325 mg Valsartan (Diovan -) 160 mg PO BID [facility] Last Admin: 03/31/17 09:42 Dose: 160 mg - Objective Vital Signs: Vital Signs Temperature 98.2 F 03/31/17 14:31 Pulse Rate 70 03/31/17 14:31 Respiratory Rate 18 03/31/17 14:31 Blood Pressure 148/82 03/31/17 14:31 O2 Sat by Pulse Oximetry (%) 100 03/31/17 09:00 Constitutional: Yes: Calm Eyes: Yes: Conjunctiva Clear HENT: Yes: Atraumatic Neck: Yes: Supple Cardiovascular: Yes: S1, S2 Respiratory: Yes: CTA Bilaterally Gastrointestinal: Yes: Normal Bowel Sounds, Soft Genitourinary: Yes: WNL Musculoskeletal: Yes: WNL Extremities: Yes: WNL Edema: No Neurological: Yes: Oriented Psychiatric: Yes: Oriented Labs: CBC, BMP 03/29/17 07:20 03/29/17 07:20 INR, PTT INR 1.07 (0.82-1.09) 03/24/17 20:30 Problem List - Problems (1) ESRD (end stage renal disease) Code(s): N18.6 - END STAGE RENAL DISEASE (2) Hypertension Code(s): I10 - ESSENTIAL (PRIMARY) HYPERTENSION Qualifiers: Hypertension type: essential hypertension Qualified Code(s): I10 - Essential (primary) hypertension (3) Hyperparathyroidism due to renal insufficiency Code(s): N25.81 - SECONDARY HYPERPARATHYROIDISM OF RENAL ORIGIN Assessment/Plan Current Medications Generic Name Dose Route Start Last Admin Trade Name Jenelle PRN Reason Stop Dose Admin Amlodipine Besylate 10 mg 03/25/17 10:00 03/31/17 09:41 Norvasc - PO 10 mg DAILY [facility] Administration Calcitriol 0.25 mcg 03/25/17 15:00 03/31/17 09:41 Rocaltrol - PO 0.25 mcg DAILY [facility] Administration Calcium Acetate 667 mg 03/25/17 17:30 03/31/17 12:47 Phoslo - PO 667 mg TIDCM [facility] Administration Calcium Carbonate/Cholecalciferol 2 tab 03/25/17 15:00 03/31/17 09:42 Os-Justin 500+D - PO 2 tab DAILY [facility] Administration Carvedilol 25 mg 03/25/17 10:00 03/31/17 09:42 Coreg - PO 25 mg BID [facility] Administration Ferrous Sulfate 325 mg 03/28/17 17:30 03/31/17 08:16 Feosol - PO 325 mg BIDWM [facility] Administration Valsartan 160 mg 03/27/17 22:00 03/31/17 09:42 Diovan - PO 160 mg BID [facility] Administration Impression 1. ESRD 2. HTN 3. hypocalcemia improving 4. anemia 5. hyperparathyroidism due to renal disease Plan - HD in am - cont current meds - cont phoslo - cont iron supplements Dr Ramos
--- NOTE | 2017-03-31 19:52 | PN ---
Progress Note, Physician History of Present Illness: no complaints - Current Medication List Current Medications: Active Medications Amlodipine Besylate (Norvasc -) 10 mg PO DAILY [facility] Last Admin: 03/31/17 09:41 Dose: 10 mg Calcitriol (Rocaltrol -) 0.25 mcg PO DAILY [facility] Last Admin: 03/31/17 09:41 Dose: 0.25 mcg Calcium Acetate (Phoslo -) 667 mg PO TIDCM [facility] Last Admin: 03/31/17 17:40 Dose: 667 mg Calcium Carbonate/Cholecalciferol (Os-Justin 500+D -) 2 tab PO DAILY [facility] Last Admin: 03/31/17 09:42 Dose: 2 tab Carvedilol (Coreg -) 25 mg PO BID [facility] Last Admin: 03/31/17 09:42 Dose: 25 mg Ferrous Sulfate (Feosol -) 325 mg PO BIDWM [facility] Last Admin: 03/31/17 17:41 Dose: 325 mg Heparin Sodium (Porcine) (Heparin -) 1,000 unit IVPUSH ONCE ONE Stop: 04/01/17 16:00 Paricalcitol (Zemplar -) 2 mcg IVPUSH ONCE ONE Stop: 04/01/17 16:00 Valsartan (Diovan -) 160 mg PO BID [facility] Last Admin: 03/31/17 09:42 Dose: 160 mg - Objective Vital Signs: Vital Signs Temperature 97.0 F L 03/31/17 17:45 Pulse Rate 66 03/31/17 17:45 Respiratory Rate 18 03/31/17 17:45 Blood Pressure 140/78 03/31/17 17:45 O2 Sat by Pulse Oximetry (%) 100 03/31/17 09:00 Constitutional: Yes: No Distress HENT: Yes: Atraumatic Neck: Yes: Supple Cardiovascular: Yes: Regular Rate and Rhythm Respiratory: Yes: CTA Bilaterally Gastrointestinal: Yes: Normal Bowel Sounds Extremities: Yes: WNL Neurological: Yes: Alert, Oriented Labs: CBC, BMP 03/29/17 07:20 03/29/17 07:20 INR, PTT INR 1.07 (0.82-1.09) 03/24/17 20:30 Problem List - Problems (1) Acute on chronic kidney failure Assessment/Plan: ON HD renal on board Code(s): N17.9 - ACUTE KIDNEY FAILURE, UNSPECIFIED N18.9 - CHRONIC KIDNEY DISEASE, UNSPECIFIED (2) ESRD (end stage renal disease) Code(s): N18.6 - END STAGE RENAL DISEASE (3) Hypertension Assessment/Plan: ON MEDS STABLE Code(s): I10 - ESSENTIAL (PRIMARY) HYPERTENSION Qualifiers: Hypertension type: essential hypertension Qualified Code(s): I10 - Essential (primary) hypertension Assessment/Plan pt awaiting insurance...dc planning
[2017-04-01] MEDS: VALSARTAN 160 MG TABLET (UD) PO SCH ×2 (09:12→22:11)
[2017-04-01] MEDS: CALCIUM ACETATE 667 MG CAPSULE (FP) PO SCH ×3 (09:12→18:19)
[2017-04-01] MEDS: CARVEDILOL 25 MG TABLET (FP) PO SCH ×2 (09:12→22:11)
[2017-04-01] MEDS: CALCIUM 500MG/VIT-D 200 UNITS COMBO TABLET (FP) PO SCH (09:12)
[2017-04-01] MEDS: FERROUS SO4 325 MG TABLET (FP) PO SCH ×2 (09:12→18:19)
[2017-04-01] MEDS: CALCITRIOL 0.25 MCG CAPSULE (FP) PO SCH (09:12)
[2017-04-01] MEDS: amLODIPine BESYLATE 5 MG TABLET (FP) PO SCH (09:13)
[2017-04-01 15:35] LABS: MCH 26.7 pg (25.7-33.7); MCHC 32.1 g/dl (32.0-35.9); MEAN CELL VOLUME 83.2 fl (80-96); MEAN PLT VOLUME 7.8 fl (7.5-11.1); PLATELET COUNT 239 K/MM3 (134-434); RDW 17.9 % (11.9-15.9); WHITE BLOOD COUNT 5.4 K/mm3 (4.0-10.0)
[2017-04-01] MEDS ORDERED: PARICALCITOL 5 MCG/ML VIAL IVPUSH ONE (15:59)
[2017-04-01] MEDS ORDERED: HEPARIN NA (PORCINE) 5,000 UNITS/ML 1ML VIAL IVPUSH ONE (15:59)
[2017-04-01 16:02] LABS: ALBUMIN 2.8 g/dl (3.4-5.0); BILIRUBIN,TOTAL 0.3 mg/dL (0.2-1.0); CALCIUM 7.5 mg/dL (8.5-10.1); COCKROFT - GAULT 8.13; TOT PROT 6.1 g/dl (6.4-8.2)
--- NOTE | 2017-04-01 17:39 | PN ---
Progress Note, Physician History of Present Illness: Pt seen and examined at bedside. He tolerated HD today. - Current Medication List Current Medications: Active Medications Amlodipine Besylate (Norvasc -) 10 mg PO DAILY [facility] Last Admin: 04/01/17 09:13 Dose: 10 mg Calcitriol (Rocaltrol -) 0.25 mcg PO DAILY [facility] Last Admin: 04/01/17 09:12 Dose: 0.25 mcg Calcium Acetate (Phoslo -) 667 mg PO TIDCM [facility] Last Admin: 04/01/17 12:02 Dose: 667 mg Calcium Carbonate/Cholecalciferol (Os-Justin 500+D -) 2 tab PO DAILY [facility] Last Admin: 04/01/17 09:12 Dose: 2 tab Carvedilol (Coreg -) 25 mg PO BID [facility] Last Admin: 04/01/17 09:12 Dose: 25 mg Ferrous Sulfate (Feosol -) 325 mg PO BIDWM [facility] Last Admin: 04/01/17 09:12 Dose: 325 mg Valsartan (Diovan -) 160 mg PO BID [facility] Last Admin: 04/01/17 09:12 Dose: 160 mg - Objective Vital Signs: Vital Signs Temperature 97.9 F 04/01/17 14:25 Pulse Rate 68 04/01/17 17:00 Respiratory Rate 18 04/01/17 17:00 Blood Pressure 157/102 04/01/17 17:00 O2 Sat by Pulse Oximetry (%) 100 04/01/17 09:00 Constitutional: Yes: Calm Eyes: Yes: Conjunctiva Clear HENT: Yes: Atraumatic Neck: Yes: Supple Cardiovascular: Yes: S1, S2 Respiratory: Yes: CTA Bilaterally Gastrointestinal: Yes: Normal Bowel Sounds, Soft Genitourinary: Yes: WNL Musculoskeletal: Yes: WNL Edema: No Neurological: Yes: Oriented Psychiatric: Yes: Oriented Labs: CBC, BMP 04/01/17 14:45 04/01/17 14:45 INR, PTT INR 1.07 (0.82-1.09) 03/24/17 20:30 Problem List - Problems (1) ESRD (end stage renal disease) Code(s): N18.6 - END STAGE RENAL DISEASE (2) Hypertension Code(s): I10 - ESSENTIAL (PRIMARY) HYPERTENSION Qualifiers: Hypertension type: essential hypertension Qualified Code(s): I10 - Essential (primary) hypertension (3) Hyperparathyroidism due to renal insufficiency Code(s): N25.81 - SECONDARY HYPERPARATHYROIDISM OF RENAL ORIGIN Assessment/Plan Current Medications Generic Name Dose Route Start Last Admin Trade Name Jenelle PRN Reason Stop Dose Admin Amlodipine Besylate 10 mg 03/25/17 10:00 04/01/17 09:13 Norvasc - PO 10 mg DAILY [facility] Administration Calcitriol 0.25 mcg 03/25/17 15:00 04/01/17 09:12 Rocaltrol - PO 0.25 mcg DAILY [facility] Administration Calcium Acetate 667 mg 03/25/17 17:30 04/01/17 12:02 Phoslo - PO 667 mg TIDCM [facility] Administration Calcium Carbonate/Cholecalciferol 2 tab 03/25/17 15:00 04/01/17 09:12 Os-Justin 500+D - PO 2 tab DAILY [facility] Administration Carvedilol 25 mg 03/25/17 10:00 04/01/17 09:12 Coreg - PO 25 mg BID [facility] Administration Ferrous Sulfate 325 mg 03/28/17 17:30 04/01/17 09:12 Feosol - PO 325 mg BIDWM [facility] Administration Valsartan 160 mg 03/27/17 22:00 04/01/17 09:12 Diovan - PO 160 mg BID [facility] Administration Impression 1. ESRD 2. HTN 3. hypocalcemia improving 4. anemia 5. hyperparathyroidism due to renal disease Plan - pt tolerated HD - cont current meds - still pending outp placement - cont phoslo - cont iron supplements Dr Ramos
--- NOTE | 2017-04-01 18:58 | PN ---
Progress Note, Physician History of Present Illness: no complaints - Current Medication List Current Medications: Active Medications Amlodipine Besylate (Norvasc -) 10 mg PO DAILY [facility] Last Admin: 04/01/17 09:13 Dose: 10 mg Calcitriol (Rocaltrol -) 0.25 mcg PO DAILY [facility] Last Admin: 04/01/17 09:12 Dose: 0.25 mcg Calcium Acetate (Phoslo -) 667 mg PO TIDCM [facility] Last Admin: 04/01/17 18:19 Dose: 667 mg Calcium Carbonate/Cholecalciferol (Os-Justin 500+D -) 2 tab PO DAILY [facility] Last Admin: 04/01/17 09:12 Dose: 2 tab Carvedilol (Coreg -) 25 mg PO BID [facility] Last Admin: 04/01/17 09:12 Dose: 25 mg Ferrous Sulfate (Feosol -) 325 mg PO BIDWM [facility] Last Admin: 04/01/17 18:19 Dose: 325 mg Valsartan (Diovan -) 160 mg PO BID [facility] Last Admin: 04/01/17 09:12 Dose: 160 mg - Objective Vital Signs: Vital Signs Temperature 97.9 F 04/01/17 14:25 Pulse Rate 62 04/01/17 17:35 Respiratory Rate 18 04/01/17 17:35 Blood Pressure 163/106 04/01/17 17:35 O2 Sat by Pulse Oximetry (%) 100 04/01/17 09:00 Constitutional: Yes: No Distress HENT: Yes: Atraumatic Neck: Yes: Supple Cardiovascular: Yes: Regular Rate and Rhythm Respiratory: Yes: CTA Bilaterally Gastrointestinal: Yes: Normal Bowel Sounds Extremities: Yes: WNL Neurological: Yes: Alert, Oriented Labs: CBC, BMP 04/01/17 14:45 04/01/17 14:45 INR, PTT INR 1.07 (0.82-1.09) 03/24/17 20:30 Problem List - Problems (1) Acute on chronic kidney failure Assessment/Plan: ON HD renal on board Code(s): N17.9 - ACUTE KIDNEY FAILURE, UNSPECIFIED N18.9 - CHRONIC KIDNEY DISEASE, UNSPECIFIED (2) ESRD (end stage renal disease) Code(s): N18.6 - END STAGE RENAL DISEASE (3) Hypertension Assessment/Plan: ON MEDS STABLE Code(s): I10 - ESSENTIAL (PRIMARY) HYPERTENSION Qualifiers: Hypertension type: essential hypertension Qualified Code(s): I10 - Essential (primary) hypertension Assessment/Plan pt awaiting insurance...dc planning
[2017-04-02] MEDS: CALCIUM ACETATE 667 MG CAPSULE (FP) PO SCH ×3 (09:23→17:04)
[2017-04-02] MEDS: FERROUS SO4 325 MG TABLET (FP) PO SCH ×2 (09:23→17:04)
[2017-04-02] MEDS: CALCITRIOL 0.25 MCG CAPSULE (FP) PO SCH (09:37)
[2017-04-02] MEDS: VALSARTAN 160 MG TABLET (UD) PO SCH ×2 (09:37→22:10)
[2017-04-02] MEDS: CARVEDILOL 25 MG TABLET (FP) PO SCH ×2 (09:37→22:10)
[2017-04-02] MEDS: CALCIUM 500MG/VIT-D 200 UNITS COMBO TABLET (FP) PO SCH (09:37)
[2017-04-02] MEDS: amLODIPine BESYLATE 5 MG TABLET (FP) PO SCH (09:37)
--- NOTE | 2017-04-02 12:28 | PN ---
Progress Note, Physician History of Present Illness: No chest pain or dyspnea. - Current Medication List Current Medications: Active Medications Amlodipine Besylate (Norvasc -) 10 mg PO DAILY [facility] Last Admin: 04/02/17 09:37 Dose: 10 mg Calcitriol (Rocaltrol -) 0.25 mcg PO DAILY [facility] Last Admin: 04/02/17 09:37 Dose: 0.25 mcg Calcium Acetate (Phoslo -) 667 mg PO TIDCM [facility] Last Admin: 04/02/17 09:23 Dose: 667 mg Calcium Carbonate/Cholecalciferol (Os-Justin 500+D -) 2 tab PO DAILY [facility] Last Admin: 04/02/17 09:37 Dose: 2 tab Carvedilol (Coreg -) 25 mg PO BID [facility] Last Admin: 04/02/17 09:37 Dose: 25 mg Ferrous Sulfate (Feosol -) 325 mg PO BIDWM [facility] Last Admin: 04/02/17 09:23 Dose: 325 mg Valsartan (Diovan -) 160 mg PO BID [facility] Last Admin: 04/02/17 09:37 Dose: 160 mg - Objective Vital Signs: Vital Signs Temperature 97.7 F 04/02/17 10:00 Pulse Rate 70 04/02/17 10:00 Respiratory Rate 20 04/02/17 10:00 Blood Pressure 154/112 04/02/17 10:00 O2 Sat by Pulse Oximetry (%) 100 04/02/17 09:00 Constitutional: Yes: No Distress, Calm Neck: Yes: Supple Cardiovascular: Yes: Regular Rate and Rhythm Respiratory: Yes: Regular, CTA Bilaterally Gastrointestinal: Yes: Normal Bowel Sounds, Soft Edema: No Labs: CBC, BMP 04/01/17 14:45 04/01/17 14:45 INR, PTT INR 1.07 (0.82-1.09) 03/24/17 20:30 Problem List - Problems (1) Acute on chronic kidney failure Code(s): N17.9 - ACUTE KIDNEY FAILURE, UNSPECIFIED N18.9 - CHRONIC KIDNEY DISEASE, UNSPECIFIED (2) ESRD (end stage renal disease) Code(s): N18.6 - END STAGE RENAL DISEASE (3) Hypertensive cardiomyopathy Code(s): I11.9 - HYPERTENSIVE HEART DISEASE WITHOUT HEART FAILURE I42.9 - CARDIOMYOPATHY, UNSPECIFIED Qualifiers: Heart failure presence: without heart failure Qualified Code(s): I11.9 - Hypertensive heart disease without heart failure (4) Diastolic dysfunction Code(s): I51.9 - HEART DISEASE, UNSPECIFIED (5) Hypocalcemia Code(s): E83.51 - HYPOCALCEMIA (6) Hyperparathyroidism due to renal insufficiency Code(s): N25.81 - SECONDARY HYPERPARATHYROIDISM OF RENAL ORIGIN Assessment/Plan 03/25/2017 Echo: Normal LV size and fxn, mod cLVH, mild LAE, mild TR, RVSP 30-40 mmHg, mild [place], Tr-mild [place] 1. Progressive weakness related to acute renal failure, recently initiated on HD , missed dialysis sessions 2. LV diastolic dysfunction with class I-II NYHA classification LV failure, compensated 3. CAD angina pectoris abnormal EKG with evidence of demand ischemia 4. HTN/HCVD, BP control improved 5. Anemia 6. Hypocalcemia 7. Hyperparathyroidism due to renal disease PLAN: 1. Continue Coreg 25 mg bid 2. Continue Norvasc 10 mg qd and Diovan 160 bid 3. HD as per renal service, outpatient HD arrangement pending insurance coverage
--- NOTE | 2017-04-02 12:46 | PN ---
Progress Note, Physician History of Present Illness: Pt seen and examined at bedside. He is awake and alert. He tolerated HD yesterday. - Current Medication List Current Medications: Active Medications Amlodipine Besylate (Norvasc -) 10 mg PO DAILY [facility] Last Admin: 04/02/17 09:37 Dose: 10 mg Calcitriol (Rocaltrol -) 0.25 mcg PO DAILY [facility] Last Admin: 04/02/17 09:37 Dose: 0.25 mcg Calcium Acetate (Phoslo -) 667 mg PO TIDCM [facility] Last Admin: 04/02/17 09:23 Dose: 667 mg Calcium Carbonate/Cholecalciferol (Os-Justin 500+D -) 2 tab PO DAILY [facility] Last Admin: 04/02/17 09:37 Dose: 2 tab Carvedilol (Coreg -) 25 mg PO BID [facility] Last Admin: 04/02/17 09:37 Dose: 25 mg Ferrous Sulfate (Feosol -) 325 mg PO BIDWM [facility] Last Admin: 04/02/17 09:23 Dose: 325 mg Valsartan (Diovan -) 160 mg PO BID [facility] Last Admin: 04/02/17 09:37 Dose: 160 mg - Objective Vital Signs: Vital Signs Temperature 97.7 F 04/02/17 10:00 Pulse Rate 70 04/02/17 10:00 Respiratory Rate 20 04/02/17 10:00 Blood Pressure 154/112 04/02/17 10:00 O2 Sat by Pulse Oximetry (%) 100 04/02/17 09:00 Constitutional: Yes: Calm Eyes: Yes: Conjunctiva Clear HENT: Yes: Atraumatic Neck: Yes: Supple Cardiovascular: Yes: S1, S2 Respiratory: Yes: CTA Bilaterally Gastrointestinal: Yes: Soft Genitourinary: Yes: WNL Musculoskeletal: Yes: WNL Edema: No Neurological: Yes: Oriented Psychiatric: Yes: Oriented Labs: CBC, BMP 04/01/17 14:45 04/01/17 14:45 INR, PTT INR 1.07 (0.82-1.09) 03/24/17 20:30 Problem List - Problems (1) ESRD (end stage renal disease) Code(s): N18.6 - END STAGE RENAL DISEASE (2) Hypertension Code(s): I10 - ESSENTIAL (PRIMARY) HYPERTENSION Qualifiers: Hypertension type: essential hypertension Qualified Code(s): I10 - Essential (primary) hypertension (3) Hyperparathyroidism due to renal insufficiency Code(s): N25.81 - SECONDARY HYPERPARATHYROIDISM OF RENAL ORIGIN Assessment/Plan Current Medications Generic Name Dose Route Start Last Admin Trade Name Jenelle PRN Reason Stop Dose Admin Amlodipine Besylate 10 mg 03/25/17 10:00 04/02/17 09:37 Norvasc - PO 10 mg DAILY [facility] Administration Calcitriol 0.25 mcg 03/25/17 15:00 04/02/17 09:37 Rocaltrol - PO 0.25 mcg DAILY [facility] Administration Calcium Acetate 667 mg 03/25/17 17:30 04/02/17 09:23 Phoslo - PO 667 mg TIDCM [facility] Administration Calcium Carbonate/Cholecalciferol 2 tab 03/25/17 15:00 04/02/17 09:37 Os-Justin 500+D - PO 2 tab DAILY [facility] Administration Carvedilol 25 mg 03/25/17 10:00 04/02/17 09:37 Coreg - PO 25 mg BID [facility] Administration Ferrous Sulfate 325 mg 03/28/17 17:30 04/02/17 09:23 Feosol - PO 325 mg BIDWM [facility] Administration Valsartan 160 mg 03/27/17 22:00 04/02/17 09:37 Diovan - PO 160 mg BID [facility] Administration Impression 1. ESRD 2. HTN 3. hypocalcemia improving 4. anemia 5. hyperparathyroidism due to renal disease Plan - HD tomorrow - pending placement - cont phoslo - cont iron supplements Dr Ramos
--- NOTE | 2017-04-02 18:12 | PN ---
Progress Note, Physician History of Present Illness: no complaints - Current Medication List Current Medications: Active Medications Amlodipine Besylate (Norvasc -) 10 mg PO DAILY [facility] Last Admin: 04/02/17 09:37 Dose: 10 mg Calcitriol (Rocaltrol -) 0.25 mcg PO DAILY [facility] Last Admin: 04/02/17 09:37 Dose: 0.25 mcg Calcium Acetate (Phoslo -) 667 mg PO TIDCM [facility] Last Admin: 04/02/17 17:04 Dose: 667 mg Calcium Carbonate/Cholecalciferol (Os-Justin 500+D -) 2 tab PO DAILY [facility] Last Admin: 04/02/17 09:37 Dose: 2 tab Carvedilol (Coreg -) 25 mg PO BID [facility] Last Admin: 04/02/17 09:37 Dose: 25 mg Ferrous Sulfate (Feosol -) 325 mg PO BIDWM [facility] Last Admin: 04/02/17 17:04 Dose: 325 mg Valsartan (Diovan -) 160 mg PO BID [facility] Last Admin: 04/02/17 09:37 Dose: 160 mg - Objective Vital Signs: Vital Signs Temperature 98.8 F 04/02/17 14:35 Pulse Rate 80 04/02/17 14:35 Respiratory Rate 20 04/02/17 14:35 Blood Pressure 154/112 04/02/17 10:00 O2 Sat by Pulse Oximetry (%) 100 04/02/17 09:00 Constitutional: Yes: No Distress HENT: Yes: Atraumatic Neck: Yes: Supple Cardiovascular: Yes: Regular Rate and Rhythm Respiratory: Yes: CTA Bilaterally Gastrointestinal: Yes: Normal Bowel Sounds Extremities: Yes: WNL Neurological: Yes: Alert, Oriented Labs: CBC, BMP 04/01/17 14:45 04/01/17 14:45 INR, PTT INR 1.07 (0.82-1.09) 03/24/17 20:30 Problem List - Problems (1) Acute on chronic kidney failure Assessment/Plan: ON HD renal on board Code(s): N17.9 - ACUTE KIDNEY FAILURE, UNSPECIFIED N18.9 - CHRONIC KIDNEY DISEASE, UNSPECIFIED (2) ESRD (end stage renal disease) Code(s): N18.6 - END STAGE RENAL DISEASE (3) Hypertension Assessment/Plan: ON MEDS STABLE Code(s): I10 - ESSENTIAL (PRIMARY) HYPERTENSION Qualifiers: Hypertension type: essential hypertension Qualified Code(s): I10 - Essential (primary) hypertension Assessment/Plan pt awaiting insurance...dc planning
[2017-04-03] MEDS: FERROUS SO4 325 MG TABLET (FP) PO SCH ×2 (09:41→18:04)
[2017-04-03] MEDS: CALCIUM ACETATE 667 MG CAPSULE (FP) PO SCH ×3 (09:41→18:04)
--- NOTE | 2017-04-03 12:35 | PN ---
Progress Note, Physician History of Present Illness: No chest pain or dyspnea. - Current Medication List Current Medications: Active Medications Amlodipine Besylate (Norvasc -) 10 mg PO DAILY [facility] Last Admin: 04/02/17 09:37 Dose: 10 mg Calcitriol (Rocaltrol -) 0.25 mcg PO DAILY [facility] Last Admin: 04/02/17 09:37 Dose: 0.25 mcg Calcium Acetate (Phoslo -) 667 mg PO TIDCM [facility] Last Admin: 04/03/17 09:41 Dose: Not Given Calcium Carbonate/Cholecalciferol (Os-Justin 500+D -) 2 tab PO DAILY [facility] Last Admin: 04/02/17 09:37 Dose: 2 tab Carvedilol (Coreg -) 25 mg PO BID [facility] Last Admin: 04/02/17 22:10 Dose: 25 mg Ferrous Sulfate (Feosol -) 325 mg PO BIDWM [facility] Last Admin: 04/03/17 09:41 Dose: Not Given Valsartan (Diovan -) 160 mg PO BID [facility] Last Admin: 04/02/17 22:10 Dose: 160 mg - Objective Vital Signs: Vital Signs Temperature 97.8 F 04/03/17 09:25 Pulse Rate 62 04/03/17 12:00 Respiratory Rate 18 04/03/17 12:00 Blood Pressure 162/105 04/03/17 12:00 O2 Sat by Pulse Oximetry (%) 100 04/02/17 21:00 Constitutional: Yes: No Distress, Calm Neck: Yes: Supple Cardiovascular: Yes: Regular Rate and Rhythm Respiratory: Yes: Regular, CTA Bilaterally Gastrointestinal: Yes: Normal Bowel Sounds, Soft Edema: No Labs: CBC, BMP 04/01/17 14:45 04/01/17 14:45 INR, PTT INR 1.07 (0.82-1.09) 03/24/17 20:30 Problem List - Problems (1) Acute on chronic kidney failure Code(s): N17.9 - ACUTE KIDNEY FAILURE, UNSPECIFIED N18.9 - CHRONIC KIDNEY DISEASE, UNSPECIFIED (2) ESRD (end stage renal disease) Code(s): N18.6 - END STAGE RENAL DISEASE (3) Hypertensive cardiomyopathy Code(s): I11.9 - HYPERTENSIVE HEART DISEASE WITHOUT HEART FAILURE I42.9 - CARDIOMYOPATHY, UNSPECIFIED Qualifiers: Heart failure presence: without heart failure Qualified Code(s): I11.9 - Hypertensive heart disease without heart failure (4) Diastolic dysfunction Code(s): I51.9 - HEART DISEASE, UNSPECIFIED (5) Hypocalcemia Code(s): E83.51 - HYPOCALCEMIA (6) Hyperparathyroidism due to renal insufficiency Code(s): N25.81 - SECONDARY HYPERPARATHYROIDISM OF RENAL ORIGIN Assessment/Plan 03/25/2017 Echo: Normal LV size and fxn, mod cLVH, mild LAE, mild TR, RVSP 30-40 mmHg, mild [place], Tr-mild [place] 1. Progressive weakness related to acute renal failure, recently initiated on HD , missed dialysis sessions 2. LV diastolic dysfunction with class I-II NYHA classification LV failure, compensated 3. CAD angina pectoris abnormal EKG with evidence of demand ischemia 4. HTN/HCVD, BP control improved 5. Anemia 6. Hypocalcemia 7. Hyperparathyroidism due to renal disease PLAN: 1. Continue Coreg 25 mg bid 2. Change Norvasc to Procardia XL 60 qd and Diovan 160 bid and uptitrate as tolerated 3. HD as per renal service, outpatient HD arrangement pending insurance coverage
[2017-04-03] MEDS: amLODIPine BESYLATE 5 MG TABLET (FP) PO SCH (13:23)
[2017-04-03] MEDS: VALSARTAN 160 MG TABLET (UD) PO SCH ×2 (14:52→22:26)
[2017-04-03] MEDS: CALCIUM 500MG/VIT-D 200 UNITS COMBO TABLET (FP) PO SCH (14:53)
[2017-04-03] MEDS: CARVEDILOL 25 MG TABLET (FP) PO SCH ×2 (14:54→22:26)
[2017-04-03] MEDS: CALCITRIOL 0.25 MCG CAPSULE (FP) PO SCH (14:54)
--- NOTE | 2017-04-03 15:30 | PN ---
Progress Note, Physician History of Present Illness: Pt seen and examined at bedside. He is awake and alert. He tolerated HD. - Current Medication List Current Medications: Active Medications Calcitriol (Rocaltrol -) 0.25 mcg PO DAILY [facility] Last Admin: 04/03/17 14:54 Dose: 0.25 mcg Calcium Acetate (Phoslo -) 667 mg PO TIDCM [facility] Last Admin: 04/03/17 13:22 Dose: Not Given Calcium Carbonate/Cholecalciferol (Os-Justin 500+D -) 2 tab PO DAILY [facility] Last Admin: 04/03/17 14:53 Dose: 2 tab Carvedilol (Coreg -) 25 mg PO BID [facility] Last Admin: 04/03/17 14:54 Dose: 25 mg Ferrous Sulfate (Feosol -) 325 mg PO BIDWM [facility] Last Admin: 04/03/17 09:41 Dose: Not Given Nifedipine (Procardia Xl -) 60 mg PO DAILY [facility] Valsartan (Diovan -) 160 mg PO BID [facility] Last Admin: 04/03/17 14:52 Dose: 160 mg - Objective Vital Signs: Vital Signs Temperature 98.2 F 04/03/17 15:16 Pulse Rate 88 04/03/17 15:16 Respiratory Rate 16 04/03/17 15:16 Blood Pressure 141/69 04/03/17 15:16 O2 Sat by Pulse Oximetry (%) 100 04/02/17 21:00 Constitutional: Yes: Calm Eyes: Yes: Conjunctiva Clear HENT: Yes: Atraumatic Neck: Yes: Supple Cardiovascular: Yes: S1, S2 Respiratory: Yes: CTA Bilaterally Gastrointestinal: Yes: Soft Genitourinary: Yes: WNL Musculoskeletal: Yes: WNL Edema: No Neurological: Yes: Oriented Psychiatric: Yes: Oriented Labs: CBC, BMP 04/01/17 14:45 04/01/17 14:45 INR, PTT INR 1.07 (0.82-1.09) 03/24/17 20:30 Problem List - Problems (1) ESRD (end stage renal disease) Code(s): N18.6 - END STAGE RENAL DISEASE (2) Hypertension Code(s): I10 - ESSENTIAL (PRIMARY) HYPERTENSION Qualifiers: Hypertension type: essential hypertension Qualified Code(s): I10 - Essential (primary) hypertension (3) Hyperparathyroidism due to renal insufficiency Code(s): N25.81 - SECONDARY HYPERPARATHYROIDISM OF RENAL ORIGIN Assessment/Plan Current Medications Generic Name Dose Route Start Last Admin Trade Name Jenelle PRN Reason Stop Dose Admin Calcitriol 0.25 mcg 03/25/17 15:00 04/03/17 14:54 Rocaltrol - PO 0.25 mcg DAILY [facility] Administration Calcium Acetate 667 mg 03/25/17 17:30 04/03/17 13:22 Phoslo - PO Not Given TIDCM [facility] Calcium Carbonate/Cholecalciferol 2 tab 03/25/17 15:00 04/03/17 14:53 Os-Justin 500+D - PO 2 tab DAILY [facility] Administration Carvedilol 25 mg 03/25/17 10:00 04/03/17 14:54 Coreg - PO 25 mg BID [facility] Administration Ferrous Sulfate 325 mg 03/28/17 17:30 04/03/17 09:41 Feosol - PO Not Given BIDWM [facility] Nifedipine 60 mg 04/04/17 10:00 Procardia Xl - PO DAILY [facility] Valsartan 160 mg 03/27/17 22:00 04/03/17 14:52 Diovan - PO 160 mg BID [facility] Administration Impression 1. ESRD 2. HTN 3. hypocalcemia improving 4. anemia 5. hyperparathyroidism due to renal disease Plan - HD today - cardio input appreciated - pending placement - cont phoslo - cont iron supplements Dr Ramos
--- NOTE | 2017-04-03 16:08 | PN ---
Progress Note, Physician History of Present Illness: no complaints - Current Medication List Current Medications: Active Medications Calcitriol (Rocaltrol -) 0.25 mcg PO DAILY [facility] Last Admin: 04/03/17 14:54 Dose: 0.25 mcg Calcium Acetate (Phoslo -) 667 mg PO TIDCM [facility] Last Admin: 04/03/17 13:22 Dose: Not Given Calcium Carbonate/Cholecalciferol (Os-Justin 500+D -) 2 tab PO DAILY [facility] Last Admin: 04/03/17 14:53 Dose: 2 tab Carvedilol (Coreg -) 25 mg PO BID [facility] Last Admin: 04/03/17 14:54 Dose: 25 mg Ferrous Sulfate (Feosol -) 325 mg PO BIDWM [facility] Last Admin: 04/03/17 09:41 Dose: Not Given Nifedipine (Procardia Xl -) 60 mg PO DAILY [facility] Valsartan (Diovan -) 160 mg PO BID [facility] Last Admin: 04/03/17 14:52 Dose: 160 mg - Objective Vital Signs: Vital Signs Temperature 98.2 F 04/03/17 15:16 Pulse Rate 88 04/03/17 15:16 Respiratory Rate 16 04/03/17 15:16 Blood Pressure 141/69 04/03/17 15:16 O2 Sat by Pulse Oximetry (%) 100 04/02/17 21:00 Constitutional: Yes: No Distress HENT: Yes: Atraumatic Neck: Yes: Supple Cardiovascular: Yes: Regular Rate and Rhythm Respiratory: Yes: CTA Bilaterally Gastrointestinal: Yes: Normal Bowel Sounds Extremities: Yes: WNL Neurological: Yes: Alert, Oriented Labs: CBC, BMP 04/01/17 14:45 04/01/17 14:45 INR, PTT INR 1.07 (0.82-1.09) 03/24/17 20:30 Problem List - Problems (1) Acute on chronic kidney failure Assessment/Plan: ON HD renal on board Code(s): N17.9 - ACUTE KIDNEY FAILURE, UNSPECIFIED N18.9 - CHRONIC KIDNEY DISEASE, UNSPECIFIED (2) ESRD (end stage renal disease) Code(s): N18.6 - END STAGE RENAL DISEASE (3) Hypertension Assessment/Plan: ON MEDS STABLE Code(s): I10 - ESSENTIAL (PRIMARY) HYPERTENSION Qualifiers: Hypertension type: essential hypertension Qualified Code(s): I10 - Essential (primary) hypertension Assessment/Plan pt awaiting insurance...dc planning
[2017-04-04] MEDS: CALCITRIOL 0.25 MCG CAPSULE (FP) PO SCH ×2 (08:45→11:36)
[2017-04-04] MEDS: CARVEDILOL 25 MG TABLET (FP) PO SCH ×3 (08:45→21:31)
[2017-04-04] MEDS: FERROUS SO4 325 MG TABLET (FP) PO SCH ×2 (08:45→18:08)
[2017-04-04] MEDS: CALCIUM 500MG/VIT-D 200 UNITS COMBO TABLET (FP) PO SCH ×2 (08:45→11:36)
[2017-04-04] MEDS: CALCIUM ACETATE 667 MG CAPSULE (FP) PO SCH ×3 (08:45→18:08)
[2017-04-04] MEDS: NIFEdipine E.R 60 MG TABLET (UD) PO SCH ×2 (08:46→11:36)
[2017-04-04] MEDS: VALSARTAN 160 MG TABLET (UD) PO SCH ×3 (08:46→21:31)
--- NOTE | 2017-04-04 15:24 | PN ---
Progress Note, Physician History of Present Illness: Pt seen and examined at bedside. He is awake and alert. He denies shortness of breath. - Current Medication List Current Medications: Active Medications Calcitriol (Rocaltrol -) 0.25 mcg PO DAILY [facility] Last Admin: 04/04/17 11:36 Dose: Not Given Calcium Acetate (Phoslo -) 667 mg PO TIDCM [facility] Last Admin: 04/04/17 13:08 Dose: 667 mg Calcium Carbonate/Cholecalciferol (Os-Justin 500+D -) 2 tab PO DAILY [facility] Last Admin: 04/04/17 11:36 Dose: Not Given Carvedilol (Coreg -) 25 mg PO BID [facility] Last Admin: 04/04/17 11:36 Dose: Not Given Ferrous Sulfate (Feosol -) 325 mg PO BIDWM [facility] Last Admin: 04/04/17 08:45 Dose: 325 mg Nifedipine (Procardia Xl -) 60 mg PO DAILY [facility] Last Admin: 04/04/17 11:36 Dose: Not Given Valsartan (Diovan -) 160 mg PO BID [facility] Last Admin: 04/04/17 11:36 Dose: Not Given - Objective Vital Signs: Vital Signs Temperature 98.7 F 04/04/17 15:09 Pulse Rate 74 04/04/17 15:09 Respiratory Rate 18 04/04/17 15:09 Blood Pressure 124/76 04/04/17 15:09 O2 Sat by Pulse Oximetry (%) 100 04/04/17 10:00 Constitutional: Yes: Calm Eyes: Yes: Conjunctiva Clear HENT: Yes: Atraumatic Cardiovascular: Yes: S1, S2 Respiratory: Yes: CTA Bilaterally Gastrointestinal: Yes: Normal Bowel Sounds, Soft Genitourinary: Yes: WNL Musculoskeletal: Yes: WNL Edema: No Neurological: Yes: Oriented Psychiatric: Yes: Oriented Labs: CBC, BMP 04/01/17 14:45 04/01/17 14:45 INR, PTT INR 1.07 (0.82-1.09) 03/24/17 20:30 Problem List - Problems (1) ESRD (end stage renal disease) Code(s): N18.6 - END STAGE RENAL DISEASE (2) Hypertension Code(s): I10 - ESSENTIAL (PRIMARY) HYPERTENSION Qualifiers: Hypertension type: essential hypertension Qualified Code(s): I10 - Essential (primary) hypertension (3) Hyperparathyroidism due to renal insufficiency Code(s): N25.81 - SECONDARY HYPERPARATHYROIDISM OF RENAL ORIGIN Assessment/Plan Current Medications Generic Name Dose Route Start Last Admin Trade Name Jenelle PRN Reason Stop Dose Admin Calcitriol 0.25 mcg 03/25/17 15:00 04/04/17 11:36 Rocaltrol - PO Not Given DAILY [facility] Calcium Acetate 667 mg 03/25/17 17:30 04/04/17 13:08 Phoslo - PO 667 mg TIDCM [facility] Administration Calcium Carbonate/Cholecalciferol 2 tab 03/25/17 15:00 04/04/17 11:36 Os-Justin 500+D - PO Not Given DAILY [facility] Carvedilol 25 mg 03/25/17 10:00 04/04/17 11:36 Coreg - PO Not Given BID [facility] Ferrous Sulfate 325 mg 03/28/17 17:30 04/04/17 08:45 Feosol - PO 325 mg BIDWM [facility] Administration Nifedipine 60 mg 04/04/17 10:00 04/04/17 11:36 Procardia Xl - PO Not Given DAILY [facility] Valsartan 160 mg 03/27/17 22:00 04/04/17 11:36 Diovan - PO Not Given BID [facility] Selected Entries 04/04/17 04/04/17 10:00 15:09 Blood Pressure 167/97 124/76 Impression 1. ESRD 2. HTN 3. hypocalcemia improving 4. anemia 5. hyperparathyroidism due to renal disease Plan - cont current meds - can increase procardia to 90 mg - HD in am - pending placement - cont phoslo - cont iron supplements Dr Ramos
--- NOTE | 2017-04-04 16:56 | PN ---
Progress Note, Physician History of Present Illness: no complaints - Current Medication List Current Medications: Active Medications Calcitriol (Rocaltrol -) 0.25 mcg PO DAILY [facility] Last Admin: 04/04/17 11:36 Dose: Not Given Calcium Acetate (Phoslo -) 667 mg PO TIDCM [facility] Last Admin: 04/04/17 13:08 Dose: 667 mg Calcium Carbonate/Cholecalciferol (Os-Justin 500+D -) 2 tab PO DAILY [facility] Last Admin: 04/04/17 11:36 Dose: Not Given Carvedilol (Coreg -) 25 mg PO BID [facility] Last Admin: 04/04/17 11:36 Dose: Not Given Ferrous Sulfate (Feosol -) 325 mg PO BIDWM [facility] Last Admin: 04/04/17 08:45 Dose: 325 mg Nifedipine (Procardia Xl -) 90 mg PO DAILY [facility] Valsartan (Diovan -) 160 mg PO BID [facility] Last Admin: 04/04/17 11:36 Dose: Not Given - Objective Vital Signs: Vital Signs Temperature 98.7 F 04/04/17 15:09 Pulse Rate 74 04/04/17 15:09 Respiratory Rate 18 04/04/17 15:09 Blood Pressure 124/76 04/04/17 15:09 O2 Sat by Pulse Oximetry (%) 100 04/04/17 10:00 Constitutional: Yes: No Distress Eyes: Yes: Conjunctiva Clear HENT: Yes: Atraumatic Neck: Yes: Supple Cardiovascular: Yes: Regular Rate and Rhythm Respiratory: Yes: CTA Bilaterally Gastrointestinal: Yes: Normal Bowel Sounds Extremities: Yes: WNL Neurological: Yes: Alert, Oriented Labs: CBC, BMP 04/01/17 14:45 04/01/17 14:45 INR, PTT INR 1.07 (0.82-1.09) 03/24/17 20:30 Problem List - Problems (1) Acute on chronic kidney failure Assessment/Plan: ON HD renal on board Code(s): N17.9 - ACUTE KIDNEY FAILURE, UNSPECIFIED N18.9 - CHRONIC KIDNEY DISEASE, UNSPECIFIED (2) ESRD (end stage renal disease) Code(s): N18.6 - END STAGE RENAL DISEASE (3) Hypertension Assessment/Plan: ON MEDS STABLE Code(s): I10 - ESSENTIAL (PRIMARY) HYPERTENSION Qualifiers: Hypertension type: essential hypertension Qualified Code(s): I10 - Essential (primary) hypertension Assessment/Plan pt awaiting insurance...dc planning
--- NOTE | 2017-04-04 16:59 | PN ---
Progress Note, Physician History of Present Illness: No chest pain or dyspnea. - Current Medication List Current Medications: Active Medications Calcitriol (Rocaltrol -) 0.25 mcg PO DAILY [facility] Last Admin: 04/04/17 11:36 Dose: Not Given Calcium Acetate (Phoslo -) 667 mg PO TIDCM [facility] Last Admin: 04/04/17 13:08 Dose: 667 mg Calcium Carbonate/Cholecalciferol (Os-Justin 500+D -) 2 tab PO DAILY [facility] Last Admin: 04/04/17 11:36 Dose: Not Given Carvedilol (Coreg -) 25 mg PO BID [facility] Last Admin: 04/04/17 11:36 Dose: Not Given Ferrous Sulfate (Feosol -) 325 mg PO BIDWM [facility] Last Admin: 04/04/17 08:45 Dose: 325 mg Nifedipine (Procardia Xl -) 90 mg PO DAILY [facility] Valsartan (Diovan -) 160 mg PO BID [facility] Last Admin: 04/04/17 11:36 Dose: Not Given - Objective Vital Signs: Vital Signs Temperature 98.7 F 04/04/17 15:09 Pulse Rate 74 04/04/17 15:09 Respiratory Rate 18 04/04/17 15:09 Blood Pressure 124/76 04/04/17 15:09 O2 Sat by Pulse Oximetry (%) 100 04/04/17 10:00 Constitutional: Yes: No Distress, Calm Neck: Yes: Supple Cardiovascular: Yes: Regular Rate and Rhythm Respiratory: Yes: Regular, CTA Bilaterally Gastrointestinal: Yes: Normal Bowel Sounds, Soft Edema: No Labs: CBC, BMP 04/01/17 14:45 04/01/17 14:45 INR, PTT INR 1.07 (0.82-1.09) 03/24/17 20:30 Problem List - Problems (1) Acute on chronic kidney failure Code(s): N17.9 - ACUTE KIDNEY FAILURE, UNSPECIFIED N18.9 - CHRONIC KIDNEY DISEASE, UNSPECIFIED (2) ESRD (end stage renal disease) Code(s): N18.6 - END STAGE RENAL DISEASE (3) Hypertensive cardiomyopathy Code(s): I11.9 - HYPERTENSIVE HEART DISEASE WITHOUT HEART FAILURE I42.9 - CARDIOMYOPATHY, UNSPECIFIED Qualifiers: Heart failure presence: without heart failure Qualified Code(s): I11.9 - Hypertensive heart disease without heart failure (4) Diastolic dysfunction Code(s): I51.9 - HEART DISEASE, UNSPECIFIED (5) Hypocalcemia Code(s): E83.51 - HYPOCALCEMIA (6) Hyperparathyroidism due to renal insufficiency Code(s): N25.81 - SECONDARY HYPERPARATHYROIDISM OF RENAL ORIGIN Assessment/Plan 03/25/2017 Echo: Normal LV size and fxn, mod cLVH, mild LAE, mild TR, RVSP 30-40 mmHg, mild AR, Tr-mild [place] 1. Progressive weakness related to acute renal failure, recently initiated on HD , missed dialysis sessions 2. LV diastolic dysfunction with class I-II NYHA classification LV failure, compensated 3. CAD angina pectoris abnormal EKG with evidence of demand ischemia 4. HTN/HCVD, BP control improved 5. Anemia 6. Hypocalcemia 7. Hyperparathyroidism due to renal disease PLAN: 1. Continue Coreg 25 mg bid 2. Increased Procardia XL 90 qd and Diovan 160 bid 3. HD as per renal service, outpatient HD arrangement pending insurance coverage
[2017-04-05] MEDS: CARVEDILOL 25 MG TABLET (FP) PO SCH ×2 (09:25→21:43)
--- NOTE | 2017-04-05 09:54 | PN ---
Progress Note (short form) - Note Progress Note: RENAL Pt is awake and alert denies complaints he is currently on hemodialysis BP is high 170/122 Last Vital Signs Temp Pulse Resp BP Pulse Ox 98.3 F 67 18 177/102 99 04/05/17 06:40 04/05/17 09:11 04/05/17 09:11 04/05/17 09:11 04/04/17 21:00 lungs clear cvs s1s2 rr abd soft ext no edema has a perm cath on right neuro a+o CBC, BMP 04/01/17 14:45 04/01/17 14:45 Current Medications Generic Name Dose Route Start Last Admin Trade Name Frevidya PRN Reason Stop Dose Admin Calcitriol 0.25 mcg 03/25/17 15:00 04/04/17 11:36 Rocaltrol - PO Not Given DAILY [facility] Calcium Acetate 667 mg 03/25/17 17:30 04/04/17 18:08 Phoslo - PO 667 mg TIDCM [facility] Administration Calcium Carbonate/Cholecalciferol 2 tab 03/25/17 15:00 04/04/17 11:36 Os-Justin 500+D - PO Not Given DAILY [facility] Carvedilol 25 mg 03/25/17 10:00 04/05/17 09:25 Coreg - PO 25 mg BID [facility] Administration Ferrous Sulfate 325 mg 03/28/17 17:30 04/04/17 18:08 Feosol - PO 325 mg BIDWM [facility] Administration Nifedipine 90 mg 04/05/17 10:00 Procardia Xl - PO DAILY [facility] Valsartan 160 mg 03/27/17 22:00 04/04/17 21:31 Diovan - PO 160 mg BID [facility] Administration Impression 1. ESRD 2. HTN 3. hypocalcemia improving 4. anemia 5. hyperparathyroidism due to renal disease Plan - cont current meds - can increase procardia to 90 mg - pending placement - cont phoslo - cont iron supplements - will give carvedilol now and add more meds if BP remains high. He is on schedule to have 2.5 kg removed which will help his BP MV
[2017-04-05] MEDS: NIFEdipine E.R. 90 MG TABLET (FP) PO SCH (10:19)
[2017-04-05] MEDS: FERROUS SO4 325 MG TABLET (FP) PO SCH ×2 (10:19→17:14)
[2017-04-05] MEDS: CALCIUM ACETATE 667 MG CAPSULE (FP) PO SCH ×3 (10:20→17:14)
[2017-04-05] MEDS: CALCIUM 500MG/VIT-D 200 UNITS COMBO TABLET (FP) PO SCH (11:11)
[2017-04-05] MEDS: CALCITRIOL 0.25 MCG CAPSULE (FP) PO SCH (11:12)
[2017-04-05] MEDS: VALSARTAN 160 MG TABLET (UD) PO SCH ×2 (11:12→21:43)
--- NOTE | 2017-04-05 13:35 | PN ---
Progress Note (short form) - Note Progress Note: Chief Complaint: Events noted, notes reviewed, denies any chest pain or dyspnea , seen in HD unit earlier History of Present Illness: Seen and examined on telemetry. Events noted, notes reviewed, denies any chest pain or dyspnea, seen in HD unit earlier Echocardiography dated 03/25/2017 revealed normal LV size and function, moderate cLVH, mild LAE, mild AR and TR, RVSP 30-40 mmHg Medications: Current Medications Calcitriol (Rocaltrol -) 0.25 mcg PO DAILY [facility] Last Admin: 04/05/17 11:12 Dose: 0.25 mcg Calcium Acetate (Phoslo -) 667 mg PO TIDCM [facility] Last Admin: 04/05/17 11:11 Dose: 667 mg Calcium Carbonate/Cholecalciferol (Os-Justin 500+D -) 2 tab PO DAILY [facility] Last Admin: 04/05/17 11:11 Dose: 2 tab Carvedilol (Coreg -) 25 mg PO BID [facility] Last Admin: 04/05/17 09:25 Dose: 25 mg Ferrous Sulfate (Feosol -) 325 mg PO BIDWM [facility] Last Admin: 04/05/17 10:19 Dose: Not Given Nifedipine (Procardia Xl -) 90 mg PO DAILY [facility] Last Admin: 04/05/17 10:19 Dose: 90 mg Valsartan (Diovan -) 160 mg PO BID [facility] Last Admin: 04/05/17 11:12 Dose: 160 mg Vital Signs: Last Vital Signs Temp Pulse Resp BP Pulse Ox 98.6 F 72 18 152/90 100 03/25/17 06:00 03/25/17 06:00 03/25/17 06:00 03/25/17 06:00 03/25/17 02:23 Intake & Output 03/22/17 03/23/17 03/24/17 03/25/17 23:59 23:59 23:59 23:59 Weight 175 lb 162 lb 12.8 oz Constitutional: No Distress, Calm Neck: Supple Negative JVD Respiratory: Clear to A&P Bilaterally Cardiovascular: S1 S2 Regular Rate and Rhythm Gastrointestinal: Soft Benign Normal Bowel Sounds Ext: Negative Edema Lab Data: CBC, BMP 04/01/17 14:45 04/01/17 14:45 Hepatic Panel Total Bilirubin 0.3 mg/dL (0.2-1.0) D 04/01/17 14:45 AST 12 U/L (15-37) L D 04/01/17 14:45 ALT 11 U/L (12-78) L 04/01/17 14:45 Alkaline Phosphatase 74 U/L (45-117) 04/01/17 14:45 Albumin 2.8 g/dl (3.4-5.0) L 04/01/17 14:45 Assessment/Plan ASSESSMENT: 1. Acute renal failure on HD 2. Diastolic LV dysfunction with class I-II NYHA classification LV failure, compensated 3. CAD angina pectoris abnormal EKG with evidence of demand ischemia 4. HTN 5. Anemia PLAN: 1. Continue Coreg 2. Continue Procardia XL 3. Continue Diovan 4. Add Hydralazine 5. HD as per renal service Isabelle Murcia MD
--- NOTE | 2017-04-05 17:18 | PN ---
Progress Note, Physician History of Present Illness: no complaints - Current Medication List Current Medications: Active Medications Calcitriol (Rocaltrol -) 0.25 mcg PO DAILY [facility] Last Admin: 04/05/17 11:12 Dose: 0.25 mcg Calcium Acetate (Phoslo -) 667 mg PO TIDCM [facility] Last Admin: 04/05/17 17:14 Dose: 667 mg Calcium Carbonate/Cholecalciferol (Os-Justin 500+D -) 2 tab PO DAILY [facility] Last Admin: 04/05/17 11:11 Dose: 2 tab Carvedilol (Coreg -) 25 mg PO BID [facility] Last Admin: 04/05/17 09:25 Dose: 25 mg Ferrous Sulfate (Feosol -) 325 mg PO BIDWM [facility] Last Admin: 04/05/17 17:14 Dose: 325 mg Hydralazine HCl (Apresoline -) 25 mg PO BID [facility] Nifedipine (Procardia Xl -) 90 mg PO DAILY [facility] Last Admin: 04/05/17 10:19 Dose: 90 mg Valsartan (Diovan -) 160 mg PO BID [facility] Last Admin: 04/05/17 11:12 Dose: 160 mg - Objective Vital Signs: Vital Signs Temperature 98.7 F 04/05/17 17:15 Pulse Rate 66 04/05/17 17:15 Respiratory Rate 18 04/05/17 17:15 Blood Pressure 152/99 04/05/17 17:15 O2 Sat by Pulse Oximetry (%) 99 04/05/17 09:00 Constitutional: Yes: No Distress HENT: Yes: Atraumatic Neck: Yes: Supple Cardiovascular: Yes: Regular Rate and Rhythm Respiratory: Yes: CTA Bilaterally Gastrointestinal: Yes: Normal Bowel Sounds Extremities: Yes: WNL Labs: CBC, BMP 04/01/17 14:45 04/01/17 14:45 INR, PTT INR 1.07 (0.82-1.09) 03/24/17 20:30 Problem List - Problems (1) Acute on chronic kidney failure Assessment/Plan: ON HD renal on board Code(s): N17.9 - ACUTE KIDNEY FAILURE, UNSPECIFIED N18.9 - CHRONIC KIDNEY DISEASE, UNSPECIFIED (2) ESRD (end stage renal disease) Assessment/Plan: on hd Code(s): N18.6 - END STAGE RENAL DISEASE (3) Hypertension Assessment/Plan: ON MEDS STABLE Code(s): I10 - ESSENTIAL (PRIMARY) HYPERTENSION Qualifiers: Hypertension type: essential hypertension Qualified Code(s): I10 - Essential (primary) hypertension Assessment/Plan pt awaiting insurance...dc planning
[2017-04-05] MEDS ORDERED: hydrALAZINE HCL 25 MG TABLET (FP) PO SCH (22:00)
--- NOTE | 2017-04-06 08:44 | PN ---
Progress Note (short form) - Note Progress Note: Chief Complaint: Events noted, notes reviewed, denies any chest pain or dyspnea History of Present Illness: Seen and examined. Events noted, notes reviewed, denies any chest pain or dyspnea Echocardiography dated 03/25/2017 revealed normal LV size and function, moderate cLVH, mild LAE, mild AR and TR, RVSP 30-40 mmHg Medications: Current Medications Calcitriol (Rocaltrol -) 0.25 mcg PO DAILY [facility] Last Admin: 04/05/17 11:12 Dose: 0.25 mcg Calcium Acetate (Phoslo -) 667 mg PO TIDCM [facility] Last Admin: 04/05/17 17:14 Dose: 667 mg Calcium Carbonate/Cholecalciferol (Os-Justin 500+D -) 2 tab PO DAILY [facility] Last Admin: 04/05/17 11:11 Dose: 2 tab Carvedilol (Coreg -) 25 mg PO BID [facility] Last Admin: 04/05/17 21:43 Dose: 25 mg Ferrous Sulfate (Feosol -) 325 mg PO BIDWM [facility] Last Admin: 04/05/17 17:14 Dose: 325 mg Hydralazine HCl (Apresoline -) 25 mg PO BID [facility] Last Admin: 04/05/17 21:44 Dose: 25 mg Nifedipine (Procardia Xl -) 90 mg PO DAILY [facility] Last Admin: 04/05/17 10:19 Dose: 90 mg Valsartan (Diovan -) 160 mg PO BID [facility] Last Admin: 04/05/17 21:43 Dose: 160 mg Vital Signs: Last Vital Signs Temp Pulse Resp BP Pulse Ox 99.2 F 72 18 151/98 99 04/06/17 06:00 04/06/17 06:00 04/06/17 06:00 04/06/17 06:00 04/05/17 21:00 Intake & Output 04/03/17 04/04/17 04/05/17 04/06/17 23:59 23:59 23:59 23:59 Intake Total 0 520 690 Balance 0 520 690 Weight 163 lb 6 oz 161 lb 161 lb 7 oz 163 lb 5 oz Constitutional: No Distress, Calm Neck: Supple Negative JVD Respiratory: Clear to A&P Bilaterally Cardiovascular: S1 S2 Regular Rate and Rhythm Gastrointestinal: Soft Benign Normal Bowel Sounds Ext: Negative Edema Lab Data: CBC, BMP 04/01/17 14:45 05/02/17 14:45 Assessment/Plan ASSESSMENT: 1. Acute renal failure on HD 2. Diastolic LV dysfunction with class I-II NYHA classification LV failure, compensated 3. CAD angina pectoris abnormal EKG with evidence of demand ischemia 4. HTN, not at goal 5. Anemia PLAN: 1. Continue Coreg 2. Continue Procardia XL 3. Continue Diovan 4. Continue Hydralazine and titrate 5. HD as per renal service Isabelle Murcia MD
[2017-04-06] MEDS ORDERED: PT OWN MED DRAWER 7, Y5N ONE (09:54)
[2017-04-06] MEDS: CARVEDILOL 25 MG TABLET (FP) PO SCH ×2 (09:56→21:32)
[2017-04-06] MEDS: CALCITRIOL 0.25 MCG CAPSULE (FP) PO SCH (09:56)
[2017-04-06] MEDS: VALSARTAN 160 MG TABLET (UD) PO SCH ×2 (09:56→21:33)
[2017-04-06] MEDS: CALCIUM 500MG/VIT-D 200 UNITS COMBO TABLET (FP) PO SCH (09:56)
[2017-04-06] MEDS: NIFEdipine E.R. 90 MG TABLET (FP) PO SCH (09:56)
[2017-04-06] MEDS: FERROUS SO4 325 MG TABLET (FP) PO SCH ×2 (09:56→17:03)
[2017-04-06] MEDS: CALCIUM ACETATE 667 MG CAPSULE (FP) PO SCH ×3 (09:56→17:03)
--- NOTE | 2017-04-06 11:41 | PN ---
Progress Note (short form) - Note Progress Note: RENAL Pt is awake and alert denies complaints he is currently in bed Last Vital Signs Temp Pulse Resp BP Pulse Ox 98.2 F 64 16 154/91 99 04/06/17 09:46 04/06/17 09:46 04/06/17 09:46 04/06/17 09:46 04/05/17 21:00 lungs clear cvs s1s2 rr abd soft ext no edema has a perm cath on right neuro a+o CBC, BMP 04/01/17 14:45 04/01/17 14:45 Current Medications Generic Name Dose Route Start Last Admin Trade Name Jenelle PRN Reason Stop Dose Admin Calcitriol 0.25 mcg 03/25/17 15:00 04/06/17 09:56 Rocaltrol - PO 0.25 mcg DAILY [facility] Administration Calcium Acetate 667 mg 03/25/17 17:30 04/06/17 09:56 Phoslo - PO 667 mg TIDCM [facility] Administration Calcium Carbonate/Cholecalciferol 2 tab 03/25/17 15:00 04/06/17 09:56 Os-Justin 500+D - PO 2 tab DAILY [facility] Administration Carvedilol 25 mg 03/25/17 10:00 04/06/17 09:56 Coreg - PO 25 mg BID [facility] Administration Ferrous Sulfate 325 mg 03/28/17 17:30 04/06/17 09:56 Feosol - PO 325 mg BIDWM [facility] Administration Hydralazine HCl 50 mg 04/06/17 14:00 Apresoline - PO TID [facility] Nifedipine 90 mg 04/05/17 10:00 04/06/17 09:56 Procardia Xl - PO 90 mg DAILY [facility] Administration Valsartan 160 mg 03/27/17 22:00 04/06/17 09:56 Diovan - PO 160 mg BID [facility] Administration Impression 1. ESRD 2. HTN better controlled 3. hypocalcemia improving 4. anemia 5. hyperparathyroidism due to renal disease Plan - cont current meds - can increase procardia to 90 mg - pending placement - cont phoslo - cont iron supplements -increase calcitriol MV
[2017-04-06] MEDS: hydrALAZINE HCL 25 MG TABLET (FP) PO SCH ×2 (14:59→21:32)
--- NOTE | 2017-04-06 20:55 | PN ---
Progress Note, Physician History of Present Illness: no complaints - Current Medication List Current Medications: Active Medications Calcitriol (Rocaltrol -) 0.5 mcg PO DAILY [facility] Calcium Acetate (Phoslo -) 667 mg PO TIDCM [facility] Last Admin: 04/06/17 17:03 Dose: 667 mg Calcium Carbonate/Cholecalciferol (Os-Justin 500+D -) 2 tab PO DAILY [facility] Last Admin: 04/06/17 09:56 Dose: 2 tab Carvedilol (Coreg -) 25 mg PO BID [facility] Last Admin: 04/06/17 09:56 Dose: 25 mg Ferrous Sulfate (Feosol -) 325 mg PO BIDWM [facility] Last Admin: 04/06/17 17:03 Dose: 325 mg Hydralazine HCl (Apresoline -) 50 mg PO TID [facility] Last Admin: 04/06/17 14:59 Dose: 50 mg Nifedipine (Procardia Xl -) 90 mg PO DAILY [facility] Last Admin: 04/06/17 09:56 Dose: 90 mg Valsartan (Diovan -) 160 mg PO BID [facility] Last Admin: 04/06/17 09:56 Dose: 160 mg - Objective Vital Signs: Vital Signs Temperature 97.7 F 04/06/17 17:13 Pulse Rate 66 04/06/17 17:13 Respiratory Rate 18 04/06/17 17:13 Blood Pressure 143/86 04/06/17 17:13 O2 Sat by Pulse Oximetry (%) 97 04/06/17 09:00 Constitutional: Yes: No Distress HENT: Yes: Atraumatic Neck: Yes: Supple Cardiovascular: Yes: Regular Rate and Rhythm Respiratory: Yes: CTA Bilaterally Gastrointestinal: Yes: Normal Bowel Sounds Extremities: Yes: WNL Neurological: Yes: Alert, Oriented Labs: CBC, BMP 04/01/17 14:45 04/01/17 14:45 INR, PTT INR 1.07 (0.82-1.09) 03/24/17 20:30 Problem List - Problems (1) Acute on chronic kidney failure Assessment/Plan: ON HD renal on board Code(s): N17.9 - ACUTE KIDNEY FAILURE, UNSPECIFIED N18.9 - CHRONIC KIDNEY DISEASE, UNSPECIFIED (2) ESRD (end stage renal disease) Assessment/Plan: on hd Code(s): N18.6 - END STAGE RENAL DISEASE (3) Hypertension Assessment/Plan: ON MEDS STABLE Code(s): I10 - ESSENTIAL (PRIMARY) HYPERTENSION Qualifiers: Hypertension type: essential hypertension Qualified Code(s): I10 - Essential (primary) hypertension Assessment/Plan pt awaiting insurance...dc planning
[2017-04-07] MEDS: hydrALAZINE HCL 25 MG TABLET (FP) PO SCH ×3 (06:18→21:57)
[2017-04-07] MEDS ORDERED: PT OWN MED DRAWER 7, Y5N ONE (08:33)
[2017-04-07] MEDS: CALCIUM ACETATE 667 MG CAPSULE (FP) PO SCH ×3 (08:37→18:03)
[2017-04-07] MEDS: FERROUS SO4 325 MG TABLET (FP) PO SCH ×2 (08:37→18:03)
[2017-04-07] MEDS: NIFEdipine E.R. 90 MG TABLET (FP) PO SCH (10:05)
[2017-04-07] MEDS: CALCIUM 500MG/VIT-D 200 UNITS COMBO TABLET (FP) PO SCH (10:05)
[2017-04-07] MEDS: VALSARTAN 160 MG TABLET (UD) PO SCH ×2 (10:05→21:56)
[2017-04-07] MEDS: CARVEDILOL 25 MG TABLET (FP) PO SCH ×2 (10:05→21:57)
[2017-04-07] MEDS: CALCITRIOL 0.25 MCG CAPSULE (FP) PO SCH (10:08)
--- NOTE | 2017-04-07 11:47 | PN ---
Progress Note, Physician History of Present Illness: No chest pain or dyspnea. BP improved. - Current Medication List Current Medications: Active Medications Calcitriol (Rocaltrol -) 0.5 mcg PO DAILY [facility] Last Admin: 04/07/17 10:08 Dose: 0.5 mcg Calcium Acetate (Phoslo -) 667 mg PO TIDCM [facility] Last Admin: 04/07/17 08:37 Dose: 667 mg Calcium Carbonate/Cholecalciferol (Os-Justin 500+D -) 2 tab PO DAILY [facility] Last Admin: 04/07/17 10:05 Dose: 2 tab Carvedilol (Coreg -) 25 mg PO BID [facility] Last Admin: 04/07/17 10:05 Dose: 25 mg Ferrous Sulfate (Feosol -) 325 mg PO BIDWM [facility] Last Admin: 04/07/17 08:37 Dose: 325 mg Hydralazine HCl (Apresoline -) 50 mg PO TID [facility] Last Admin: 04/07/17 06:18 Dose: 50 mg Nifedipine (Procardia Xl -) 90 mg PO DAILY [facility] Last Admin: 04/07/17 10:05 Dose: 90 mg Valsartan (Diovan -) 160 mg PO BID [facility] Last Admin: 04/07/17 10:05 Dose: 160 mg - Objective Vital Signs: Vital Signs Temperature 97.9 F 04/07/17 06:00 Pulse Rate 70 04/07/17 06:00 Respiratory Rate 20 04/07/17 06:00 Blood Pressure 143/79 04/07/17 06:00 O2 Sat by Pulse Oximetry (%) 97 04/06/17 21:00 Constitutional: Yes: No Distress, Calm Neck: Yes: Supple Cardiovascular: Yes: Regular Rate and Rhythm Respiratory: Yes: Regular, CTA Bilaterally Gastrointestinal: Yes: Normal Bowel Sounds, Soft Edema: No Labs: CBC, BMP 04/01/17 14:45 04/01/17 14:45 INR, PTT INR 1.07 (0.82-1.09) 03/24/17 20:30 Problem List - Problems (1) Acute on chronic kidney failure Code(s): N17.9 - ACUTE KIDNEY FAILURE, UNSPECIFIED N18.9 - CHRONIC KIDNEY DISEASE, UNSPECIFIED (2) ESRD (end stage renal disease) Code(s): N18.6 - END STAGE RENAL DISEASE (3) Hypertensive cardiomyopathy Code(s): I11.9 - HYPERTENSIVE HEART DISEASE WITHOUT HEART FAILURE I42.9 - CARDIOMYOPATHY, UNSPECIFIED Qualifiers: Heart failure presence: without heart failure Qualified Code(s): I11.9 - Hypertensive heart disease without heart failure (4) Diastolic dysfunction Code(s): I51.9 - HEART DISEASE, UNSPECIFIED (5) Hypocalcemia Code(s): E83.51 - HYPOCALCEMIA (6) Hyperparathyroidism due to renal insufficiency Code(s): N25.81 - SECONDARY HYPERPARATHYROIDISM OF RENAL ORIGIN Assessment/Plan 03/25/2017 Echo: Normal LV size and fxn, mod cLVH, mild LAE, mild TR, RVSP 30-40 mmHg, mild AR, Tr-mild [place] 1. Progressive weakness related to acute renal failure, recently initiated on HD , missed dialysis sessions 2. LV diastolic dysfunction with class I-II NYHA classification LV failure, compensated 3. CAD angina pectoris abnormal EKG with evidence of demand ischemia 4. HTN/HCVD, BP control improved 5. Anemia 6. Hypocalcemia improving 7. Hyperparathyroidism due to renal disease PLAN: 1. Continue Coreg 25 mg bid, Procardia XL 90 qd, Diovan 160 bid and hydralazine 50 tid 2. HD as per renal service, outpatient HD arrangement pending insurance coverage
--- NOTE | 2017-04-07 12:28 | PN ---
Progress Note, Physician History of Present Illness: Pt seen and examined at bedside. He has no complaints. - Current Medication List Current Medications: Active Medications Calcitriol (Rocaltrol -) 0.5 mcg PO DAILY [facility] Last Admin: 04/07/17 10:08 Dose: 0.5 mcg Calcium Acetate (Phoslo -) 667 mg PO TIDCM [facility] Last Admin: 04/07/17 08:37 Dose: 667 mg Calcium Carbonate/Cholecalciferol (Os-Justin 500+D -) 2 tab PO DAILY [facility] Last Admin: 04/07/17 10:05 Dose: 2 tab Carvedilol (Coreg -) 25 mg PO BID [facility] Last Admin: 04/07/17 10:05 Dose: 25 mg Ferrous Sulfate (Feosol -) 325 mg PO BIDWM [facility] Last Admin: 04/07/17 08:37 Dose: 325 mg Hydralazine HCl (Apresoline -) 50 mg PO TID [facility] Last Admin: 04/07/17 06:18 Dose: 50 mg Nifedipine (Procardia Xl -) 90 mg PO DAILY [facility] Last Admin: 04/07/17 10:05 Dose: 90 mg Valsartan (Diovan -) 160 mg PO BID [facility] Last Admin: 04/07/17 10:05 Dose: 160 mg - Objective Vital Signs: Vital Signs Temperature 97.9 F 04/07/17 06:00 Pulse Rate 70 04/07/17 06:00 Respiratory Rate 20 04/07/17 06:00 Blood Pressure 143/79 04/07/17 06:00 O2 Sat by Pulse Oximetry (%) 97 04/06/17 21:00 Constitutional: Yes: Calm Eyes: Yes: Conjunctiva Clear HENT: Yes: Atraumatic Cardiovascular: Yes: S1, S2 Respiratory: Yes: CTA Bilaterally Gastrointestinal: Yes: Soft Genitourinary: Yes: WNL Musculoskeletal: Yes: WNL Edema: No Neurological: Yes: Oriented Psychiatric: Yes: Oriented Labs: CBC, BMP 04/01/17 14:45 04/01/17 14:45 INR, PTT INR 1.07 (0.82-1.09) 03/24/17 20:30 Problem List - Problems (1) ESRD (end stage renal disease) Code(s): N18.6 - END STAGE RENAL DISEASE (2) Hypertension Code(s): I10 - ESSENTIAL (PRIMARY) HYPERTENSION Qualifiers: Hypertension type: essential hypertension Qualified Code(s): I10 - Essential (primary) hypertension (3) Hyperparathyroidism due to renal insufficiency Code(s): N25.81 - SECONDARY HYPERPARATHYROIDISM OF RENAL ORIGIN Assessment/Plan Current Medications Generic Name Dose Route Start Last Admin Trade Name Freq PRN Reason Stop Dose Admin Calcitriol 0.5 mcg 04/06/17 11:42 04/07/17 10:08 Rocaltrol - PO 0.5 mcg DAILY [facility] Administration Calcium Acetate 667 mg 03/25/17 17:30 04/07/17 08:37 Phoslo - PO 667 mg TIDCM [facility] Administration Calcium Carbonate/Cholecalciferol 2 tab 03/25/17 15:00 04/07/17 10:05 Os-Justin 500+D - PO 2 tab DAILY [facility] Administration Carvedilol 25 mg 03/25/17 10:00 04/07/17 10:05 Coreg - PO 25 mg BID [facility] Administration Ferrous Sulfate 325 mg 03/28/17 17:30 04/07/17 08:37 Feosol - PO 325 mg BIDWM [facility] Administration Hydralazine HCl 50 mg 04/06/17 14:00 04/07/17 06:18 Apresoline - PO 50 mg TID [facility] Administration Nifedipine 90 mg 04/05/17 10:00 04/07/17 10:05 Procardia Xl - PO 90 mg DAILY [facility] Administration Valsartan 160 mg 03/27/17 22:00 04/07/17 10:05 Diovan - PO 160 mg BID [facility] Administration Impression 1. ESRD 2. HTN 3. hypocalcemia improving 4. anemia 5. hyperparathyroidism due to renal disease Plan - cont current meds - will arrange for HD in am - bp is better controlled - pending placement - cont phoslo - cont iron supplements Dr Ramos
--- NOTE | 2017-04-07 18:12 | PN ---
Progress Note, Physician History of Present Illness: no complaints - Current Medication List Current Medications: Active Medications Calcitriol (Rocaltrol -) 0.5 mcg PO DAILY [facility] Last Admin: 04/07/17 10:08 Dose: 0.5 mcg Calcium Acetate (Phoslo -) 667 mg PO TIDCM [facility] Last Admin: 04/07/17 18:03 Dose: 667 mg Calcium Carbonate/Cholecalciferol (Os-Justin 500+D -) 2 tab PO DAILY [facility] Last Admin: 04/07/17 10:05 Dose: 2 tab Carvedilol (Coreg -) 25 mg PO BID [facility] Last Admin: 04/07/17 10:05 Dose: 25 mg Ferrous Sulfate (Feosol -) 325 mg PO BIDWM [facility] Last Admin: 04/07/17 18:03 Dose: 325 mg Hydralazine HCl (Apresoline -) 50 mg PO TID [facility] Last Admin: 04/07/17 13:23 Dose: 50 mg Nifedipine (Procardia Xl -) 90 mg PO DAILY [facility] Last Admin: 04/07/17 10:05 Dose: 90 mg Valsartan (Diovan -) 160 mg PO BID [facility] Last Admin: 04/07/17 10:05 Dose: 160 mg - Objective Vital Signs: Vital Signs Temperature 97.9 F 04/07/17 14:40 Pulse Rate 90 04/07/17 14:40 Respiratory Rate 16 04/07/17 14:40 Blood Pressure 130/82 04/07/17 14:40 O2 Sat by Pulse Oximetry (%) 97 04/06/17 21:00 Constitutional: Yes: No Distress HENT: Yes: Atraumatic Neck: Yes: Supple Cardiovascular: Yes: Regular Rate and Rhythm Respiratory: Yes: CTA Bilaterally Gastrointestinal: Yes: Normal Bowel Sounds Extremities: Yes: WNL Neurological: Yes: Alert, Oriented Labs: CBC, BMP 04/01/17 14:45 04/01/17 14:45 INR, PTT INR 1.07 (0.82-1.09) 03/24/17 20:30 Problem List - Problems (1) Acute on chronic kidney failure Assessment/Plan: ON HD renal on board Code(s): N17.9 - ACUTE KIDNEY FAILURE, UNSPECIFIED N18.9 - CHRONIC KIDNEY DISEASE, UNSPECIFIED (2) ESRD (end stage renal disease) Assessment/Plan: on hd Code(s): N18.6 - END STAGE RENAL DISEASE (3) Hypertension Assessment/Plan: ON MEDS STABLE Code(s): I10 - ESSENTIAL (PRIMARY) HYPERTENSION Qualifiers: Hypertension type: essential hypertension Qualified Code(s): I10 - Essential (primary) hypertension Assessment/Plan pt awaiting insurance...dc planning
[2017-04-08] MEDS: hydrALAZINE HCL 25 MG TABLET (FP) PO SCH ×3 (06:04→21:31)
[2017-04-08] MEDS ORDERED: HEPARIN NA (PORCINE) 5,000 UNITS/ML 1ML VIAL IVPUSH ONE ×2 (07:30)
[2017-04-08] MEDS: FERROUS SO4 325 MG TABLET (FP) PO SCH ×2 (08:02→18:09)
[2017-04-08] MEDS: CALCIUM ACETATE 667 MG CAPSULE (FP) PO SCH ×3 (08:03→18:09)
[2017-04-08 09:17] LABS: CALCIUM 8.1 mg/dL (8.5-10.1)
[2017-04-08] MEDS: CARVEDILOL 25 MG TABLET (FP) PO SCH ×2 (10:11→21:31)
[2017-04-08] MEDS: VALSARTAN 160 MG TABLET (UD) PO SCH ×2 (10:12→21:31)
[2017-04-08] MEDS: CALCITRIOL 0.25 MCG CAPSULE (FP) PO SCH (10:12)
[2017-04-08] MEDS: NIFEdipine E.R. 90 MG TABLET (FP) PO SCH ×2 (10:12→12:53)
[2017-04-08] MEDS: CALCIUM 500MG/VIT-D 200 UNITS COMBO TABLET (FP) PO SCH ×2 (10:12→12:54)
[2017-04-08 10:14] LABS: CREATININE 10.8 mg/dL (0.7-1.3)
[2017-04-08] MEDS ORDERED: PT OWN MED DRAWER 7, Y5N ONE (12:44)
--- NOTE | 2017-04-08 14:55 | PN ---
Progress Note, Physician History of Present Illness: Pt seen and examined at bedside. He tolerated HD today. - Current Medication List Current Medications: Active Medications Calcitriol (Rocaltrol -) 0.5 mcg PO DAILY [facility] Last Admin: 04/08/17 10:12 Dose: Not Given Calcium Acetate (Phoslo -) 667 mg PO TIDCM [facility] Last Admin: 04/08/17 12:52 Dose: 667 mg Calcium Carbonate/Cholecalciferol (Os-Justin 500+D -) 2 tab PO DAILY [facility] Last Admin: 04/08/17 12:54 Dose: 2 tab Carvedilol (Coreg -) 25 mg PO BID [facility] Last Admin: 04/08/17 10:11 Dose: Not Given Ferrous Sulfate (Feosol -) 325 mg PO BIDWM [facility] Last Admin: 04/08/17 08:02 Dose: Not Given Hydralazine HCl (Apresoline -) 50 mg PO TID [facility] Last Admin: 04/08/17 13:01 Dose: 50 mg Nifedipine (Procardia Xl -) 90 mg PO DAILY [facility] Last Admin: 04/08/17 12:53 Dose: 90 mg Valsartan (Diovan -) 160 mg PO BID [facility] Last Admin: 04/08/17 10:12 Dose: Not Given - Objective Vital Signs: Vital Signs Temperature 98.1 F 04/08/17 14:35 Pulse Rate 75 04/08/17 14:35 Respiratory Rate 16 04/08/17 14:35 Blood Pressure 174/71 04/08/17 14:35 O2 Sat by Pulse Oximetry (%) 97 04/08/17 09:00 Constitutional: Yes: Calm Eyes: Yes: Conjunctiva Clear HENT: Yes: Atraumatic Neck: Yes: Supple Cardiovascular: Yes: S1, S2 Respiratory: Yes: CTA Bilaterally Gastrointestinal: Yes: Soft Genitourinary: Yes: WNL Musculoskeletal: Yes: WNL Edema: No Neurological: Yes: Oriented Psychiatric: Yes: Oriented Labs: CBC, BMP 04/01/17 14:45 04/08/17 08:00 INR, PTT INR 1.07 (0.82-1.09) 03/24/17 20:30 Problem List - Problems (1) ESRD (end stage renal disease) Code(s): N18.6 - END STAGE RENAL DISEASE (2) Hypertension Code(s): I10 - ESSENTIAL (PRIMARY) HYPERTENSION Qualifiers: Hypertension type: essential hypertension Qualified Code(s): I10 - Essential (primary) hypertension (3) Hyperparathyroidism due to renal insufficiency Code(s): N25.81 - SECONDARY HYPERPARATHYROIDISM OF RENAL ORIGIN Assessment/Plan Current Medications Generic Name Dose Route Start Last Admin Trade Name Freq PRN Reason Stop Dose Admin Calcitriol 0.5 mcg 04/06/17 11:42 04/08/17 10:12 Rocaltrol - PO Not Given DAILY [facility] Calcium Acetate 667 mg 03/25/17 17:30 04/08/17 12:52 Phoslo - PO 667 mg TIDCM [facility] Administration Calcium Carbonate/Cholecalciferol 2 tab 03/25/17 15:00 04/08/17 12:54 Os-Justin 500+D - PO 2 tab DAILY [facility] Administration Carvedilol 25 mg 03/25/17 10:00 04/08/17 10:11 Coreg - PO Not Given BID [facility] Ferrous Sulfate 325 mg 03/28/17 17:30 04/08/17 08:02 Feosol - PO Not Given BIDWM [facility] Hydralazine HCl 50 mg 04/06/17 14:00 04/08/17 13:01 Apresoline - PO 50 mg TID [facility] Administration Nifedipine 90 mg 04/05/17 10:00 04/08/17 12:53 Procardia Xl - PO 90 mg DAILY [facility] Administration Valsartan 160 mg 03/27/17 22:00 04/08/17 10:12 Diovan - PO Not Given BID [facility] Impression 1. ESRD 2. HTN 3. hypocalcemia improving 4. anemia 5. hyperparathyroidism due to renal disease Plan - HD today - pending outpt placement - will need fistula - cont phoslo - cont iron supplements Dr Ramos
--- NOTE | 2017-04-08 17:00 | PN ---
Progress Note, Physician History of Present Illness: no complaints - Current Medication List Current Medications: Active Medications Calcitriol (Rocaltrol -) 0.5 mcg PO DAILY [facility] Last Admin: 04/08/17 10:12 Dose: Not Given Calcium Acetate (Phoslo -) 667 mg PO TIDCM [facility] Last Admin: 04/08/17 12:52 Dose: 667 mg Calcium Carbonate/Cholecalciferol (Os-Justin 500+D -) 2 tab PO DAILY [facility] Last Admin: 04/08/17 12:54 Dose: 2 tab Carvedilol (Coreg -) 25 mg PO BID [facility] Last Admin: 04/08/17 10:11 Dose: Not Given Ferrous Sulfate (Feosol -) 325 mg PO BIDWM [facility] Last Admin: 04/08/17 08:02 Dose: Not Given Hydralazine HCl (Apresoline -) 50 mg PO TID [facility] Last Admin: 04/08/17 13:01 Dose: 50 mg Nifedipine (Procardia Xl -) 90 mg PO DAILY [facility] Last Admin: 04/08/17 12:53 Dose: 90 mg Valsartan (Diovan -) 160 mg PO BID [facility] Last Admin: 04/08/17 10:12 Dose: Not Given - Objective Vital Signs: Vital Signs Temperature 98.1 F 04/08/17 14:35 Pulse Rate 75 04/08/17 14:35 Respiratory Rate 16 04/08/17 14:35 Blood Pressure 174/71 04/08/17 14:35 O2 Sat by Pulse Oximetry (%) 97 04/08/17 09:00 Constitutional: Yes: No Distress HENT: Yes: Atraumatic Neck: Yes: Supple Cardiovascular: Yes: Regular Rate and Rhythm Respiratory: Yes: CTA Bilaterally Gastrointestinal: Yes: Normal Bowel Sounds Extremities: Yes: WNL Neurological: Yes: Alert, Oriented Labs: CBC, BMP 04/01/17 14:45 04/08/17 08:00 INR, PTT INR 1.07 (0.82-1.09) 03/24/17 20:30 Problem List - Problems (1) Acute on chronic kidney failure Assessment/Plan: ON HD renal on board Code(s): N17.9 - ACUTE KIDNEY FAILURE, UNSPECIFIED N18.9 - CHRONIC KIDNEY DISEASE, UNSPECIFIED (2) ESRD (end stage renal disease) Assessment/Plan: on hd Code(s): N18.6 - END STAGE RENAL DISEASE (3) Hypertension Assessment/Plan: ON MEDS STABLE Code(s): I10 - ESSENTIAL (PRIMARY) HYPERTENSION Qualifiers: Hypertension type: essential hypertension Qualified Code(s): I10 - Essential (primary) hypertension Assessment/Plan pt awaiting insurance...dc planning
[2017-04-09] MEDS: hydrALAZINE HCL 25 MG TABLET (FP) PO SCH ×3 (09:21→21:43)
[2017-04-09] MEDS: FERROUS SO4 325 MG TABLET (FP) PO SCH ×2 (09:21→17:29)
[2017-04-09] MEDS: CALCIUM ACETATE 667 MG CAPSULE (FP) PO SCH ×3 (09:21→17:29)
[2017-04-09] MEDS: CALCIUM 500MG/VIT-D 200 UNITS COMBO TABLET (FP) PO SCH (10:19)
[2017-04-09] MEDS: CARVEDILOL 25 MG TABLET (FP) PO SCH ×2 (10:19→21:43)
[2017-04-09] MEDS: VALSARTAN 160 MG TABLET (UD) PO SCH ×2 (10:19→21:43)
[2017-04-09] MEDS: CALCITRIOL 0.25 MCG CAPSULE (FP) PO SCH (10:19)
[2017-04-09] MEDS: NIFEdipine E.R. 90 MG TABLET (FP) PO SCH (10:20)
--- NOTE | 2017-04-09 11:10 | PN ---
Progress Note, Physician History of Present Illness: No chest pain or dyspnea. BP improved. - Current Medication List Current Medications: Active Medications Calcitriol (Rocaltrol -) 0.5 mcg PO DAILY [facility] Last Admin: 04/09/17 10:19 Dose: 0.5 mcg Calcium Acetate (Phoslo -) 667 mg PO TIDCM [facility] Last Admin: 04/09/17 09:21 Dose: 667 mg Calcium Carbonate/Cholecalciferol (Os-Justin 500+D -) 2 tab PO DAILY [facility] Last Admin: 04/09/17 10:19 Dose: 2 tab Carvedilol (Coreg -) 25 mg PO BID [facility] Last Admin: 04/09/17 10:19 Dose: 25 mg Ferrous Sulfate (Feosol -) 325 mg PO BIDWM [facility] Last Admin: 04/09/17 09:21 Dose: 325 mg Hydralazine HCl (Apresoline -) 50 mg PO TID [facility] Last Admin: 04/09/17 09:21 Dose: 50 mg Nifedipine (Procardia Xl -) 90 mg PO DAILY [facility] Last Admin: 04/09/17 10:20 Dose: 90 mg Valsartan (Diovan -) 160 mg PO BID [facility] Last Admin: 04/09/17 10:19 Dose: 160 mg - Objective Vital Signs: Vital Signs Temperature 98.7 F 04/09/17 08:36 Pulse Rate 77 04/09/17 08:36 Respiratory Rate 18 04/09/17 08:36 Blood Pressure 150/87 04/09/17 08:36 O2 Sat by Pulse Oximetry (%) 100 04/09/17 09:00 Constitutional: Yes: No Distress, Calm, Thin Neck: Yes: Supple Cardiovascular: Yes: Regular Rate and Rhythm Respiratory: Yes: Regular, CTA Bilaterally Gastrointestinal: Yes: Normal Bowel Sounds, Soft Edema: No Labs: CBC, BMP 04/01/17 14:45 04/08/17 08:00 INR, PTT INR 1.07 (0.82-1.09) 03/24/17 20:30 Problem List - Problems (1) Acute on chronic kidney failure Code(s): N17.9 - ACUTE KIDNEY FAILURE, UNSPECIFIED N18.9 - CHRONIC KIDNEY DISEASE, UNSPECIFIED (2) ESRD (end stage renal disease) Code(s): N18.6 - END STAGE RENAL DISEASE (3) Hypertensive cardiomyopathy Code(s): I11.9 - HYPERTENSIVE HEART DISEASE WITHOUT HEART FAILURE I42.9 - CARDIOMYOPATHY, UNSPECIFIED Qualifiers: Heart failure presence: without heart failure Qualified Code(s): I11.9 - Hypertensive heart disease without heart failure; I43 - Cardiomyopathy in diseases classified elsewhere (4) Diastolic dysfunction Code(s): I51.9 - HEART DISEASE, UNSPECIFIED (5) Hypocalcemia Code(s): E83.51 - HYPOCALCEMIA (6) Hyperparathyroidism due to renal insufficiency Code(s): N25.81 - SECONDARY HYPERPARATHYROIDISM OF RENAL ORIGIN Assessment/Plan 03/25/2017 Echo: Normal LV size and fxn, mod cLVH, mild LAE, mild TR, RVSP 30-40 mmHg, mild AR, Tr-mild IA 1. Progressive weakness related to acute renal failure, recently initiated on HD , missed dialysis sessions 2. LV diastolic dysfunction with class I-II NYHA classification LV failure, compensated 3. CAD angina pectoris abnormal EKG with evidence of demand ischemia 4. HTN/HCVD, BP control improved 5. Anemia 6. Hypocalcemia improving 7. Hyperparathyroidism due to renal disease PLAN: 1. Continue Coreg 25 mg bid, Procardia XL 90 qd, Diovan 160 bid and hydralazine 50 tid 2. HD as per renal service, outpatient HD arrangement pending insurance coverage
--- NOTE | 2017-04-09 17:43 | PN ---
Progress Note, Physician History of Present Illness: no complaints - Current Medication List Current Medications: Active Medications Calcitriol (Rocaltrol -) 0.5 mcg PO DAILY [facility] Last Admin: 04/09/17 10:19 Dose: 0.5 mcg Calcium Acetate (Phoslo -) 667 mg PO TIDCM [facility] Last Admin: 04/09/17 17:29 Dose: 667 mg Calcium Carbonate/Cholecalciferol (Os-Justin 500+D -) 2 tab PO DAILY [facility] Last Admin: 04/09/17 10:19 Dose: 2 tab Carvedilol (Coreg -) 25 mg PO BID [facility] Last Admin: 04/09/17 10:19 Dose: 25 mg Ferrous Sulfate (Feosol -) 325 mg PO BIDWM [facility] Last Admin: 04/09/17 17:29 Dose: 325 mg Hydralazine HCl (Apresoline -) 50 mg PO TID [facility] Last Admin: 04/09/17 15:05 Dose: 50 mg Nifedipine (Procardia Xl -) 90 mg PO DAILY [facility] Last Admin: 04/09/17 10:20 Dose: 90 mg Valsartan (Diovan -) 160 mg PO BID [facility] Last Admin: 04/09/17 10:19 Dose: 160 mg - Objective Vital Signs: Vital Signs Temperature 98.4 F 04/09/17 17:00 Pulse Rate 69 04/09/17 17:00 Respiratory Rate 20 04/09/17 17:00 Blood Pressure 121/66 04/09/17 17:00 O2 Sat by Pulse Oximetry (%) 100 04/09/17 09:00 Constitutional: Yes: No Distress HENT: Yes: Atraumatic Neck: Yes: Supple Cardiovascular: Yes: Regular Rate and Rhythm Respiratory: Yes: CTA Bilaterally Gastrointestinal: Yes: Normal Bowel Sounds Extremities: Yes: WNL Neurological: Yes: Alert, Oriented Labs: CBC, BMP 04/01/17 14:45 04/08/17 08:00 INR, PTT INR 1.07 (0.82-1.09) 03/24/17 20:30 Problem List - Problems (1) Acute on chronic kidney failure Assessment/Plan: ON HD renal on board Code(s): N17.9 - ACUTE KIDNEY FAILURE, UNSPECIFIED N18.9 - CHRONIC KIDNEY DISEASE, UNSPECIFIED (2) ESRD (end stage renal disease) Assessment/Plan: on hd Code(s): N18.6 - END STAGE RENAL DISEASE (3) Hypertension Assessment/Plan: ON MEDS STABLE Code(s): I10 - ESSENTIAL (PRIMARY) HYPERTENSION Qualifiers: Hypertension type: essential hypertension Qualified Code(s): I10 - Essential (primary) hypertension Assessment/Plan pt awaiting insurance...dc planning CM NOTES REVIEWED
--- NOTE | 2017-04-09 18:00 | PN ---
Progress Note, Physician History of Present Illness: Pt seen and examined at bedside. He is awake and alert. - Current Medication List Current Medications: Active Medications Calcitriol (Rocaltrol -) 0.5 mcg PO DAILY [facility] Last Admin: 04/09/17 10:19 Dose: 0.5 mcg Calcium Acetate (Phoslo -) 667 mg PO TIDCM [facility] Last Admin: 04/09/17 17:29 Dose: 667 mg Calcium Carbonate/Cholecalciferol (Os-Justin 500+D -) 2 tab PO DAILY [facility] Last Admin: 04/09/17 10:19 Dose: 2 tab Carvedilol (Coreg -) 25 mg PO BID [facility] Last Admin: 04/09/17 10:19 Dose: 25 mg Ferrous Sulfate (Feosol -) 325 mg PO BIDWM [facility] Last Admin: 04/09/17 17:29 Dose: 325 mg Hydralazine HCl (Apresoline -) 50 mg PO TID [facility] Last Admin: 04/09/17 15:05 Dose: 50 mg Nifedipine (Procardia Xl -) 90 mg PO DAILY [facility] Last Admin: 04/09/17 10:20 Dose: 90 mg Valsartan (Diovan -) 160 mg PO BID [facility] Last Admin: 04/09/17 10:19 Dose: 160 mg - Objective Vital Signs: Vital Signs Temperature 98.4 F 04/09/17 17:00 Pulse Rate 69 04/09/17 17:00 Respiratory Rate 20 04/09/17 17:00 Blood Pressure 121/66 04/09/17 17:00 O2 Sat by Pulse Oximetry (%) 100 04/09/17 09:00 Constitutional: Yes: Calm Eyes: Yes: Conjunctiva Clear HENT: Yes: Atraumatic Neck: Yes: Supple Cardiovascular: Yes: S1, S2 Respiratory: Yes: CTA Bilaterally Gastrointestinal: Yes: Normal Bowel Sounds, Soft Genitourinary: Yes: WNL Musculoskeletal: Yes: WNL Neurological: Yes: Oriented Psychiatric: Yes: Oriented Labs: CBC, BMP 04/01/17 14:45 04/08/17 08:00 INR, PTT INR 1.07 (0.82-1.09) 03/24/17 20:30 Problem List - Problems (1) ESRD (end stage renal disease) Code(s): N18.6 - END STAGE RENAL DISEASE (2) Hypertension Code(s): I10 - ESSENTIAL (PRIMARY) HYPERTENSION Qualifiers: Hypertension type: essential hypertension Qualified Code(s): I10 - Essential (primary) hypertension (3) Hyperparathyroidism due to renal insufficiency Code(s): N25.81 - SECONDARY HYPERPARATHYROIDISM OF RENAL ORIGIN Assessment/Plan Current Medications Generic Name Dose Route Start Last Admin Trade Name Freq PRN Reason Stop Dose Admin Calcitriol 0.5 mcg 04/06/17 11:42 04/09/17 10:19 Rocaltrol - PO 0.5 mcg DAILY [facility] Administration Calcium Acetate 667 mg 03/25/17 17:30 04/09/17 17:29 Phoslo - PO 667 mg TIDCM [facility] Administration Calcium Carbonate/Cholecalciferol 2 tab 03/25/17 15:00 04/09/17 10:19 Os-Justin 500+D - PO 2 tab DAILY [facility] Administration Carvedilol 25 mg 03/25/17 10:00 04/09/17 10:19 Coreg - PO 25 mg BID [facility] Administration Ferrous Sulfate 325 mg 03/28/17 17:30 04/09/17 17:29 Feosol - PO 325 mg BIDWM [facility] Administration Hydralazine HCl 50 mg 04/06/17 14:00 04/09/17 15:05 Apresoline - PO 50 mg TID [facility] Administration Nifedipine 90 mg 04/05/17 10:00 04/09/17 10:20 Procardia Xl - PO 90 mg DAILY [facility] Administration Valsartan 160 mg 03/27/17 22:00 04/09/17 10:19 Diovan - PO 160 mg BID [facility] Administration Impression 1. ESRD 2. HTN 3. hypocalcemia improving 4. anemia 5. hyperparathyroidism due to renal disease Plan - HD in am - orders written - will need fistula - cont phoslo - cont iron supplements Dr Ramos
[2017-04-10] MEDS: hydrALAZINE HCL 25 MG TABLET (FP) PO SCH ×3 (06:08→21:31)
[2017-04-10] MEDS ORDERED: HEPARIN NA (PORCINE) 5,000 UNITS/ML 1ML VIAL IVPUSH ONE ×3 (07:00→18:00)
[2017-04-10 07:04] LABS: MCH 26.7 pg (25.7-33.7); MCHC 32.9 g/dl (32.0-35.9); MEAN CELL VOLUME 81.1 fl (80-96); PLATELET COUNT 185 K/MM3 (134-434); RDW 18.1 % (11.9-15.9); WHITE BLOOD COUNT 5.8 K/mm3 (4.0-10.0)
[2017-04-10 07:44] LABS: ALBUMIN 3.1 g/dl (3.4-5.0); CALCIUM 8.3 mg/dL (8.5-10.1)
[2017-04-10 07:56] LABS: BILIRUBIN,TOTAL 0.3 mg/dL (0.2-1.0); COCKROFT - GAULT 8.49; TOT PROT 6.2 g/dl (6.4-8.2)
[2017-04-10] MEDS: CALCIUM ACETATE 667 MG CAPSULE (FP) PO SCH ×3 (08:34→17:56)
[2017-04-10] MEDS: FERROUS SO4 325 MG TABLET (FP) PO SCH ×2 (08:34→17:56)
[2017-04-10 09:20] LABS: CREATININE 9.7 mg/dL (0.7-1.3)
[2017-04-10] MEDS: VALSARTAN 160 MG TABLET (UD) PO SCH ×3 (12:44→21:32)
[2017-04-10] MEDS: CARVEDILOL 25 MG TABLET (FP) PO SCH ×3 (12:44→21:32)
[2017-04-10] MEDS: NIFEdipine E.R. 90 MG TABLET (FP) PO SCH (12:45)
[2017-04-10] MEDS: CALCIUM 500MG/VIT-D 200 UNITS COMBO TABLET (FP) PO SCH (12:45)
[2017-04-10] MEDS: CALCITRIOL 0.25 MCG CAPSULE (FP) PO SCH (12:45)
--- NOTE | 2017-04-10 13:44 | PN ---
Progress Note, Physician History of Present Illness: Pt seen and examined at bedside. He has no complaints. - Current Medication List Current Medications: Active Medications Calcitriol (Rocaltrol -) 0.5 mcg PO DAILY [facility] Last Admin: 04/10/17 12:45 Dose: 0.5 mcg Calcium Acetate (Phoslo -) 667 mg PO TIDCM [facility] Last Admin: 04/10/17 12:45 Dose: 667 mg Calcium Carbonate/Cholecalciferol (Os-Justin 500+D -) 2 tab PO DAILY [facility] Last Admin: 04/10/17 12:45 Dose: 2 tab Carvedilol (Coreg -) 25 mg PO BID [facility] Last Admin: 04/10/17 12:44 Dose: Not Given Ferrous Sulfate (Feosol -) 325 mg PO BIDWM [facility] Last Admin: 04/10/17 08:34 Dose: Not Given Hydralazine HCl (Apresoline -) 50 mg PO TID [facility] Last Admin: 04/10/17 06:08 Dose: Not Given Nifedipine (Procardia Xl -) 90 mg PO DAILY [facility] Last Admin: 04/10/17 12:45 Dose: 90 mg Valsartan (Diovan -) 160 mg PO BID [facility] Last Admin: 04/10/17 12:44 Dose: Not Given - Objective Vital Signs: Vital Signs Temperature 98 F 04/10/17 10:00 Pulse Rate 78 04/10/17 10:45 Respiratory Rate 18 04/10/17 10:45 Blood Pressure 120/72 04/10/17 10:45 O2 Sat by Pulse Oximetry (%) 98 04/10/17 09:00 Constitutional: Yes: Calm Eyes: Yes: Conjunctiva Clear HENT: Yes: Atraumatic Neck: Yes: Supple Cardiovascular: Yes: S1, S2 Respiratory: Yes: CTA Bilaterally Gastrointestinal: Yes: Soft Genitourinary: Yes: WNL Musculoskeletal: Yes: WNL Edema: No Neurological: Yes: Oriented Psychiatric: Yes: Oriented Labs: CBC, BMP 04/10/17 06:30 04/10/17 06:30 INR, PTT INR 1.07 (0.82-1.09) 03/24/17 20:30 Problem List - Problems (1) ESRD (end stage renal disease) Code(s): N18.6 - END STAGE RENAL DISEASE (2) Hypertension Code(s): I10 - ESSENTIAL (PRIMARY) HYPERTENSION Qualifiers: Hypertension type: essential hypertension Qualified Code(s): I10 - Essential (primary) hypertension (3) Hyperparathyroidism due to renal insufficiency Code(s): N25.81 - SECONDARY HYPERPARATHYROIDISM OF RENAL ORIGIN Assessment/Plan Current Medications Generic Name Dose Route Start Last Admin Trade Name Freq PRN Reason Stop Dose Admin Calcitriol 0.5 mcg 04/06/17 11:42 04/10/17 12:45 Rocaltrol - PO 0.5 mcg DAILY [facility] Administration Calcium Acetate 667 mg 03/25/17 17:30 04/10/17 12:45 Phoslo - PO 667 mg TIDCM [facility] Administration Calcium Carbonate/Cholecalciferol 2 tab 03/25/17 15:00 04/10/17 12:45 Os-Justin 500+D - PO 2 tab DAILY [facility] Administration Carvedilol 25 mg 03/25/17 10:00 04/10/17 12:44 Coreg - PO Not Given BID [facility] Ferrous Sulfate 325 mg 03/28/17 17:30 04/10/17 08:34 Feosol - PO Not Given BIDWM [facility] Hydralazine HCl 50 mg 04/06/17 14:00 04/10/17 06:08 Apresoline - PO Not Given TID [facility] Nifedipine 90 mg 04/05/17 10:00 04/10/17 12:45 Procardia Xl - PO 90 mg DAILY [facility] Administration Valsartan 160 mg 03/27/17 22:00 04/10/17 12:44 Diovan - PO Not Given BID [facility] Impression 1. ESRD 2. HTN 3. hypocalcemia improving 4. anemia 5. hyperparathyroidism due to renal disease Plan - HD today - monitor bp after hd - will need fistula - cont phoslo - cont iron supplements Dr Ramos
--- NOTE | 2017-04-10 16:44 | PN ---
Progress Note, Physician History of Present Illness: No chest pain or dyspnea. BP improved. - Current Medication List Current Medications: Active Medications Calcitriol (Rocaltrol -) 0.5 mcg PO DAILY [facility] Last Admin: 04/10/17 12:45 Dose: 0.5 mcg Calcium Acetate (Phoslo -) 667 mg PO TIDCM [facility] Last Admin: 04/10/17 12:45 Dose: 667 mg Calcium Carbonate/Cholecalciferol (Os-Justin 500+D -) 2 tab PO DAILY [facility] Last Admin: 04/10/17 12:45 Dose: 2 tab Carvedilol (Coreg -) 25 mg PO BID [facility] Last Admin: 04/10/17 12:44 Dose: Not Given Ferrous Sulfate (Feosol -) 325 mg PO BIDWM [facility] Last Admin: 04/10/17 08:34 Dose: Not Given Hydralazine HCl (Apresoline -) 50 mg PO TID [facility] Last Admin: 04/10/17 14:36 Dose: 50 mg Nifedipine (Procardia Xl -) 90 mg PO DAILY [facility] Last Admin: 04/10/17 12:45 Dose: 90 mg Valsartan (Diovan -) 160 mg PO BID [facility] Last Admin: 04/10/17 12:44 Dose: Not Given - Objective Vital Signs: Vital Signs Temperature 98.0 F 04/10/17 14:16 Pulse Rate 92 H 04/10/17 14:16 Respiratory Rate 16 04/10/17 14:16 Blood Pressure 118/87 04/10/17 14:16 O2 Sat by Pulse Oximetry (%) 98 04/10/17 09:00 Constitutional: Yes: No Distress, Calm Neck: Yes: Supple Cardiovascular: Yes: Regular Rate and Rhythm Respiratory: Yes: Regular, CTA Bilaterally Gastrointestinal: Yes: Normal Bowel Sounds, Soft Edema: No Labs: CBC, BMP 04/10/17 06:30 04/10/17 06:30 INR, PTT INR 1.07 (0.82-1.09) 03/24/17 20:30 Problem List - Problems (1) Acute on chronic kidney failure Code(s): N17.9 - ACUTE KIDNEY FAILURE, UNSPECIFIED N18.9 - CHRONIC KIDNEY DISEASE, UNSPECIFIED (2) ESRD (end stage renal disease) Code(s): N18.6 - END STAGE RENAL DISEASE (3) Hypertensive cardiomyopathy Code(s): I11.9 - HYPERTENSIVE HEART DISEASE WITHOUT HEART FAILURE I42.9 - CARDIOMYOPATHY, UNSPECIFIED Qualifiers: Heart failure presence: without heart failure Qualified Code(s): I11.9 - Hypertensive heart disease without heart failure; I43 - Cardiomyopathy in diseases classified elsewhere (4) Diastolic dysfunction Code(s): I51.9 - HEART DISEASE, UNSPECIFIED (5) Hypocalcemia Code(s): E83.51 - HYPOCALCEMIA (6) Hyperparathyroidism due to renal insufficiency Code(s): N25.81 - SECONDARY HYPERPARATHYROIDISM OF RENAL ORIGIN Assessment/Plan 03/25/2017 Echo: Normal LV size and fxn, mod cLVH, mild LAE, mild TR, RVSP 30-40 mmHg, mild AR, Tr-mild IA 1. Progressive weakness related to acute renal failure, recently initiated on HD , missed dialysis sessions 2. LV diastolic dysfunction with class I-II NYHA classification LV failure, compensated 3. CAD angina pectoris abnormal EKG with evidence of demand ischemia 4. HTN/HCVD, BP control improved 5. Anemia 6. Hypocalcemia improving 7. Hyperparathyroidism due to renal disease PLAN: 1. Continue Coreg 25 mg bid, Procardia XL 90 qd, Diovan 160 bid and hydralazine 50 tid 2. HD as per renal service, outpatient HD arrangement pending insurance coverage
[2017-04-10] MEDS ORDERED: CARVEDILOL 25 MG TABLET (FP) PO ONE (18:00)
[2017-04-10] MEDS ORDERED: VALSARTAN 160 MG TABLET (UD) PO ONE (18:00)
--- NOTE | 2017-04-10 19:43 | PN ---
Progress Note, Physician History of Present Illness: no complaints - Current Medication List Current Medications: Active Medications Calcitriol (Rocaltrol -) 0.5 mcg PO DAILY [facility] Last Admin: 04/10/17 12:45 Dose: 0.5 mcg Calcium Acetate (Phoslo -) 667 mg PO TIDCM [facility] Last Admin: 04/10/17 17:56 Dose: 667 mg Calcium Carbonate/Cholecalciferol (Os-Justin 500+D -) 2 tab PO DAILY [facility] Last Admin: 04/10/17 12:45 Dose: 2 tab Carvedilol (Coreg -) 25 mg PO BID [facility] Last Admin: 04/10/17 17:56 Dose: 25 mg Ferrous Sulfate (Feosol -) 325 mg PO BIDWM [facility] Last Admin: 04/10/17 17:56 Dose: Not Given Hydralazine HCl (Apresoline -) 50 mg PO TID [facility] Last Admin: 04/10/17 14:36 Dose: 50 mg Nifedipine (Procardia Xl -) 90 mg PO DAILY [facility] Last Admin: 04/10/17 12:45 Dose: 90 mg Valsartan (Diovan -) 160 mg PO BID [facility] Last Admin: 04/10/17 17:56 Dose: 160 mg - Objective Vital Signs: Vital Signs Temperature 98.4 F 04/10/17 17:23 Pulse Rate 84 04/10/17 18:13 Respiratory Rate 18 04/10/17 18:13 Blood Pressure 194/107 04/10/17 18:13 O2 Sat by Pulse Oximetry (%) 98 04/10/17 09:00 Constitutional: Yes: No Distress HENT: Yes: Atraumatic Neck: Yes: Supple Cardiovascular: Yes: Regular Rate and Rhythm Respiratory: Yes: CTA Bilaterally Gastrointestinal: Yes: Normal Bowel Sounds Extremities: Yes: WNL Neurological: Yes: Alert, Oriented Labs: CBC, BMP 04/10/17 06:30 04/10/17 06:30 INR, PTT INR 1.07 (0.82-1.09) 03/24/17 20:30 Problem List - Problems (1) Acute on chronic kidney failure Assessment/Plan: ON HD renal on board Code(s): N17.9 - ACUTE KIDNEY FAILURE, UNSPECIFIED N18.9 - CHRONIC KIDNEY DISEASE, UNSPECIFIED (2) ESRD (end stage renal disease) Assessment/Plan: on hd Code(s): N18.6 - END STAGE RENAL DISEASE (3) Hypertension Assessment/Plan: ON MEDS STABLE Code(s): I10 - ESSENTIAL (PRIMARY) HYPERTENSION Qualifiers: Hypertension type: essential hypertension Qualified Code(s): I10 - Essential (primary) hypertension Assessment/Plan pt awaiting insurance...dc planning CM NOTES REVIEWED
[2017-04-11] MEDS: hydrALAZINE HCL 25 MG TABLET (FP) PO SCH ×3 (06:07→21:46)
[2017-04-11] MEDS: FERROUS SO4 325 MG TABLET (FP) PO SCH ×2 (08:03→16:54)
[2017-04-11] MEDS: CALCIUM ACETATE 667 MG CAPSULE (FP) PO SCH ×3 (08:03→16:54)
[2017-04-11] MEDS ORDERED: PT OWN MED DRAWER 7, Y5N ONE (09:33)
[2017-04-11] MEDS: NIFEdipine E.R. 90 MG TABLET (FP) PO SCH (09:35)
[2017-04-11] MEDS: CARVEDILOL 25 MG TABLET (FP) PO SCH ×2 (09:35→21:47)
[2017-04-11] MEDS: VALSARTAN 160 MG TABLET (UD) PO SCH ×2 (09:35→21:50)
[2017-04-11] MEDS: CALCITRIOL 0.25 MCG CAPSULE (FP) PO SCH (09:35)
[2017-04-11] MEDS: CALCIUM 500MG/VIT-D 200 UNITS COMBO TABLET (FP) PO SCH (09:35)
--- NOTE | 2017-04-11 13:07 | PN ---
Progress Note, Physician History of Present Illness: No chest pain or dyspnea. BP improved. - Current Medication List Current Medications: Active Medications Calcitriol (Rocaltrol -) 0.5 mcg PO DAILY [facility] Last Admin: 04/11/17 09:35 Dose: 0.5 mcg Calcium Acetate (Phoslo -) 667 mg PO TIDCM [facility] Last Admin: 04/11/17 11:57 Dose: 667 mg Calcium Carbonate/Cholecalciferol (Os-Justin 500+D -) 2 tab PO DAILY [facility] Last Admin: 04/11/17 09:35 Dose: 2 tab Carvedilol (Coreg -) 25 mg PO BID [facility] Last Admin: 04/11/17 09:35 Dose: 25 mg Ferrous Sulfate (Feosol -) 325 mg PO BIDWM [facility] Last Admin: 04/11/17 08:03 Dose: 325 mg Hydralazine HCl (Apresoline -) 50 mg PO TID [facility] Last Admin: 04/11/17 06:07 Dose: 50 mg Nifedipine (Procardia Xl -) 90 mg PO DAILY [facility] Last Admin: 04/11/17 09:35 Dose: 90 mg Valsartan (Diovan -) 160 mg PO BID [facility] Last Admin: 04/11/17 09:35 Dose: 160 mg - Objective Vital Signs: Vital Signs Temperature 98.8 F 04/11/17 10:20 Pulse Rate 78 04/11/17 10:20 Respiratory Rate 16 04/11/17 10:20 Blood Pressure 140/101 04/11/17 10:20 O2 Sat by Pulse Oximetry (%) 100 04/11/17 09:00 Constitutional: Yes: No Distress, Calm Neck: Yes: Supple Cardiovascular: Yes: Regular Rate and Rhythm Respiratory: Yes: Regular, CTA Bilaterally Gastrointestinal: Yes: Normal Bowel Sounds, Soft Edema: No Labs: CBC, BMP 04/10/17 06:30 04/10/17 06:30 INR, PTT INR 1.07 (0.82-1.09) 03/24/17 20:30 Problem List - Problems (1) Acute on chronic kidney failure Code(s): N17.9 - ACUTE KIDNEY FAILURE, UNSPECIFIED N18.9 - CHRONIC KIDNEY DISEASE, UNSPECIFIED (2) ESRD (end stage renal disease) Code(s): N18.6 - END STAGE RENAL DISEASE (3) Hypertensive cardiomyopathy Code(s): I11.9 - HYPERTENSIVE HEART DISEASE WITHOUT HEART FAILURE I42.9 - CARDIOMYOPATHY, UNSPECIFIED Qualifiers: Heart failure presence: without heart failure Qualified Code(s): I11.9 - Hypertensive heart disease without heart failure; I43 - Cardiomyopathy in diseases classified elsewhere (4) Diastolic dysfunction Code(s): I51.9 - HEART DISEASE, UNSPECIFIED (5) Hypocalcemia Code(s): E83.51 - HYPOCALCEMIA (6) Hyperparathyroidism due to renal insufficiency Code(s): N25.81 - SECONDARY HYPERPARATHYROIDISM OF RENAL ORIGIN Assessment/Plan 03/25/2017 Echo: Normal LV size and fxn, mod cLVH, mild LAE, mild TR, RVSP 30-40 mmHg, mild [place], Tr-mild [place] 1. Progressive weakness related to acute renal failure, recently initiated on HD , missed dialysis sessions 2. LV diastolic dysfunction with class I-II NYHA classification LV failure, compensated 3. CAD angina pectoris abnormal EKG with evidence of demand ischemia 4. HTN/HCVD, BP control improved 5. Anemia 6. Hypocalcemia improving 7. Hyperparathyroidism due to renal disease PLAN: 1. Continue Coreg 25 mg bid, Procardia XL 90 qd, Diovan 160 bid and hydralazine 50 tid 2. HD as per renal service, outpatient HD arrangement pending insurance coverage
--- NOTE | 2017-04-11 18:56 | PN ---
Progress Note, Physician History of Present Illness: no complaints - Current Medication List Current Medications: Active Medications Calcitriol (Rocaltrol -) 0.5 mcg PO DAILY [facility] Last Admin: 04/11/17 09:35 Dose: 0.5 mcg Calcium Acetate (Phoslo -) 667 mg PO TIDCM [facility] Last Admin: 04/11/17 16:54 Dose: 667 mg Calcium Carbonate/Cholecalciferol (Os-Justin 500+D -) 2 tab PO DAILY [facility] Last Admin: 04/11/17 09:35 Dose: 2 tab Carvedilol (Coreg -) 25 mg PO BID [facility] Last Admin: 04/11/17 09:35 Dose: 25 mg Ferrous Sulfate (Feosol -) 325 mg PO BIDWM [facility] Last Admin: 04/11/17 16:54 Dose: 325 mg Hydralazine HCl (Apresoline -) 50 mg PO TID [facility] Last Admin: 04/11/17 13:50 Dose: 50 mg Nifedipine (Procardia Xl -) 90 mg PO DAILY [facility] Last Admin: 04/11/17 09:35 Dose: 90 mg Valsartan (Diovan -) 160 mg PO BID [facility] Last Admin: 04/11/17 09:35 Dose: 160 mg - Objective Vital Signs: Vital Signs Temperature 98.6 F 04/11/17 15:11 Pulse Rate 75 04/11/17 15:11 Respiratory Rate 16 04/11/17 15:11 Blood Pressure 126/68 04/11/17 15:11 O2 Sat by Pulse Oximetry (%) 100 04/11/17 09:00 Constitutional: Yes: No Distress HENT: Yes: Atraumatic Neck: Yes: Supple Cardiovascular: Yes: Regular Rate and Rhythm Respiratory: Yes: CTA Bilaterally Gastrointestinal: Yes: Normal Bowel Sounds Extremities: Yes: WNL Neurological: Yes: Alert, Oriented Labs: CBC, BMP 04/10/17 06:30 04/10/17 06:30 INR, PTT INR 1.07 (0.82-1.09) 03/24/17 20:30 Problem List - Problems (1) Acute on chronic kidney failure Assessment/Plan: ON HD renal on board Code(s): N17.9 - ACUTE KIDNEY FAILURE, UNSPECIFIED N18.9 - CHRONIC KIDNEY DISEASE, UNSPECIFIED (2) ESRD (end stage renal disease) Assessment/Plan: on hd Code(s): N18.6 - END STAGE RENAL DISEASE (3) Hypertension Assessment/Plan: ON MEDS STABLE Code(s): I10 - ESSENTIAL (PRIMARY) HYPERTENSION Qualifiers: Hypertension type: essential hypertension Qualified Code(s): I10 - Essential (primary) hypertension Assessment/Plan pt awaiting insurance...dc planning CM NOTES REVIEWED
--- NOTE | 2017-04-11 19:12 | PN ---
Progress Note, Physician History of Present Illness: Pt seen and examined at bedside. He is awake and alert. He has no complaints. - Current Medication List Current Medications: Active Medications Calcitriol (Rocaltrol -) 0.5 mcg PO DAILY [facility] Last Admin: 04/11/17 09:35 Dose: 0.5 mcg Calcium Acetate (Phoslo -) 667 mg PO TIDCM [facility] Last Admin: 04/11/17 16:54 Dose: 667 mg Calcium Carbonate/Cholecalciferol (Os-Justin 500+D -) 2 tab PO DAILY [facility] Last Admin: 04/11/17 09:35 Dose: 2 tab Carvedilol (Coreg -) 25 mg PO BID [facility] Last Admin: 04/11/17 09:35 Dose: 25 mg Ferrous Sulfate (Feosol -) 325 mg PO BIDWM [facility] Last Admin: 04/11/17 16:54 Dose: 325 mg Hydralazine HCl (Apresoline -) 50 mg PO TID [facility] Last Admin: 04/11/17 13:50 Dose: 50 mg Nifedipine (Procardia Xl -) 90 mg PO DAILY [facility] Last Admin: 04/11/17 09:35 Dose: 90 mg Valsartan (Diovan -) 160 mg PO BID [facility] Last Admin: 04/11/17 09:35 Dose: 160 mg - Objective Vital Signs: Vital Signs Temperature 98.6 F 04/11/17 15:11 Pulse Rate 75 04/11/17 15:11 Respiratory Rate 16 04/11/17 15:11 Blood Pressure 126/68 04/11/17 15:11 O2 Sat by Pulse Oximetry (%) 100 04/11/17 09:00 Constitutional: Yes: Calm Eyes: Yes: Conjunctiva Clear HENT: Yes: Atraumatic Neck: Yes: Supple Cardiovascular: Yes: S1, S2 Respiratory: Yes: CTA Bilaterally Gastrointestinal: Yes: Soft Genitourinary: Yes: WNL Musculoskeletal: Yes: WNL Edema: No Neurological: Yes: Oriented Psychiatric: Yes: Oriented Labs: CBC, BMP 04/10/17 06:30 04/10/17 06:30 INR, PTT INR 1.07 (0.82-1.09) 03/24/17 20:30 Problem List - Problems (1) ESRD (end stage renal disease) Code(s): N18.6 - END STAGE RENAL DISEASE (2) Hypertension Code(s): I10 - ESSENTIAL (PRIMARY) HYPERTENSION Qualifiers: Hypertension type: essential hypertension Qualified Code(s): I10 - Essential (primary) hypertension (3) Hyperparathyroidism due to renal insufficiency Code(s): N25.81 - SECONDARY HYPERPARATHYROIDISM OF RENAL ORIGIN Assessment/Plan Current Medications Generic Name Dose Route Start Last Admin Trade Name Murtazaq PRN Reason Stop Dose Admin Calcitriol 0.5 mcg 04/06/17 11:42 04/11/17 09:35 Rocaltrol - PO 0.5 mcg DAILY [facility] Administration Calcium Acetate 667 mg 03/25/17 17:30 04/11/17 16:54 Phoslo - PO 667 mg TIDCM [facility] Administration Calcium Carbonate/Cholecalciferol 2 tab 03/25/17 15:00 04/11/17 09:35 Os-Justin 500+D - PO 2 tab DAILY [facility] Administration Carvedilol 25 mg 03/25/17 10:00 04/11/17 09:35 Coreg - PO 25 mg BID [facility] Administration Ferrous Sulfate 325 mg 03/28/17 17:30 04/11/17 16:54 Feosol - PO 325 mg BIDWM [facility] Administration Hydralazine HCl 50 mg 04/06/17 14:00 04/11/17 13:50 Apresoline - PO 50 mg TID [facility] Administration Nifedipine 90 mg 04/05/17 10:00 04/11/17 09:35 Procardia Xl - PO 90 mg DAILY [facility] Administration Valsartan 160 mg 03/27/17 22:00 04/11/17 09:35 Diovan - PO 160 mg BID [facility] Administration Impression 1. ESRD 2. HTN 3. hypocalcemia improving 4. anemia 5. hyperparathyroidism due to renal disease Plan - will arrange for HD in am - cont current meds - bp is better controlled - will need fistula - cont phoslo - cont iron supplements Dr Ramos
[2017-04-12] MEDS: hydrALAZINE HCL 25 MG TABLET (FP) PO SCH ×3 (05:58→21:31)
[2017-04-12] MEDS ORDERED: HEPARIN NA (PORCINE) 5,000 UNITS/ML 1ML VIAL IVPUSH ONE (07:30)
[2017-04-12] MEDS ORDERED: PARICALCITOL 5 MCG/ML VIAL IVPUSH ONE (07:30)
[2017-04-12 08:48] LABS: MCH 26.3 pg (25.7-33.7); MEAN CELL VOLUME 82.1 fl (80-96); MEAN PLT VOLUME 8.8 fl (7.5-11.1); PLATELET COUNT 209 K/MM3 (134-434); RDW 17.8 % (11.9-15.9); WHITE BLOOD COUNT 5.9 K/mm3 (4.0-10.0)
[2017-04-12 09:05] LABS: ALBUMIN 3.2 g/dl (3.4-5.0); CALCIUM 8.6 mg/dL (8.5-10.1); COCKROFT - GAULT 8.89
[2017-04-12 09:12] LABS: BILIRUBIN,TOTAL 0.6 mg/dL (0.2-1.0); PHOSPHOROUS 4.1 mg/dL (2.5-4.9); TOT PROT 6.3 g/dl (6.4-8.2)
[2017-04-12 09:36] LABS: CREATININE 9.4 mg/dL (0.7-1.3)
[2017-04-12] MEDS: CARVEDILOL 25 MG TABLET (FP) PO SCH ×2 (10:18→21:31)
[2017-04-12] MEDS: FERROUS SO4 325 MG TABLET (FP) PO SCH ×2 (10:18→17:45)
[2017-04-12] MEDS: VALSARTAN 160 MG TABLET (UD) PO SCH ×2 (10:18→21:31)
[2017-04-12] MEDS: CALCIUM ACETATE 667 MG CAPSULE (FP) PO SCH ×3 (10:19→17:45)
[2017-04-12] MEDS ORDERED: PT OWN MED DRAWER 7, Y5N ONE (11:16)
[2017-04-12] MEDS: NIFEdipine E.R. 90 MG TABLET (FP) PO SCH (11:17)
[2017-04-12] MEDS: CALCIUM 500MG/VIT-D 200 UNITS COMBO TABLET (FP) PO SCH (11:17)
[2017-04-12] MEDS: CALCITRIOL 0.25 MCG CAPSULE (FP) PO SCH (11:17)
--- NOTE | 2017-04-12 12:43 | PN ---
Progress Note, Physician History of Present Illness: Pt seen and examined at bedside at bedside. He tolerated HD today. - Current Medication List Current Medications: Active Medications Calcitriol (Rocaltrol -) 0.5 mcg PO DAILY [facility] Last Admin: 04/12/17 11:17 Dose: 0.5 mcg Calcium Acetate (Phoslo -) 667 mg PO TIDCM [facility] Last Admin: 04/12/17 12:37 Dose: 667 mg Calcium Carbonate/Cholecalciferol (Os-Justin 500+D -) 2 tab PO DAILY [facility] Last Admin: 04/12/17 11:17 Dose: 2 tab Carvedilol (Coreg -) 25 mg PO BID [facility] Last Admin: 04/12/17 10:18 Dose: Not Given Ferrous Sulfate (Feosol -) 325 mg PO BIDWM [facility] Last Admin: 04/12/17 10:18 Dose: Not Given Hydralazine HCl (Apresoline -) 50 mg PO TID [facility] Last Admin: 04/12/17 05:58 Dose: 50 mg Nifedipine (Procardia Xl -) 90 mg PO DAILY [facility] Last Admin: 04/12/17 11:17 Dose: 90 mg Valsartan (Diovan -) 160 mg PO BID [facility] Last Admin: 04/12/17 10:18 Dose: Not Given - Objective Vital Signs: Vital Signs Temperature 97.2 F L 04/12/17 11:10 Pulse Rate 69 04/12/17 11:10 Respiratory Rate 18 04/12/17 11:10 Blood Pressure 143/84 04/12/17 11:10 O2 Sat by Pulse Oximetry (%) 100 04/11/17 21:00 Constitutional: Yes: Calm Cardiovascular: Yes: S1, S2 Respiratory: Yes: CTA Bilaterally Gastrointestinal: Yes: Soft Genitourinary: Yes: WNL Musculoskeletal: Yes: WNL Extremities: Yes: WNL Edema: No Integumentary: Yes: WNL Neurological: Yes: Oriented Psychiatric: Yes: Oriented Labs: CBC, BMP 04/12/17 08:33 04/12/17 08:33 INR, PTT INR 1.07 (0.82-1.09) 03/24/17 20:30 Problem List - Problems (1) ESRD (end stage renal disease) Code(s): N18.6 - END STAGE RENAL DISEASE (2) Hypertension Code(s): I10 - ESSENTIAL (PRIMARY) HYPERTENSION Qualifiers: Hypertension type: essential hypertension Qualified Code(s): I10 - Essential (primary) hypertension (3) Hyperparathyroidism due to renal insufficiency Code(s): N25.81 - SECONDARY HYPERPARATHYROIDISM OF RENAL ORIGIN Assessment/Plan Current Medications Generic Name Dose Route Start Last Admin Trade Name Freq PRN Reason Stop Dose Admin Calcitriol 0.5 mcg 04/06/17 11:42 04/12/17 11:17 Rocaltrol - PO 0.5 mcg DAILY [facility] Administration Calcium Acetate 667 mg 03/25/17 17:30 04/12/17 12:37 Phoslo - PO 667 mg TIDCM [facility] Administration Calcium Carbonate/Cholecalciferol 2 tab 03/25/17 15:00 04/12/17 11:17 Os-Justin 500+D - PO 2 tab DAILY [facility] Administration Carvedilol 25 mg 03/25/17 10:00 04/12/17 10:18 Coreg - PO Not Given BID [facility] Ferrous Sulfate 325 mg 03/28/17 17:30 04/12/17 10:18 Feosol - PO Not Given BIDWM [facility] Hydralazine HCl 50 mg 04/06/17 14:00 04/12/17 05:58 Apresoline - PO 50 mg TID [facility] Administration Nifedipine 90 mg 04/05/17 10:00 04/12/17 11:17 Procardia Xl - PO 90 mg DAILY [facility] Administration Valsartan 160 mg 03/27/17 22:00 04/12/17 10:18 Diovan - PO Not Given BID [facility] Impression 1. ESRD 2. HTN 3. hypocalcemia improving 4. anemia 5. hyperparathyroidism due to renal disease Plan - HD today - cont current meds - BP is stable - will need fistula - cont phoslo - cont iron supplements - pending placement Dr Ramos
--- NOTE | 2017-04-12 13:23 | PN ---
Progress Note, Physician Chief Complaint: THIS IS MY FIRST ENCOUNTER WITH THIS PATIENT PATIENT'S CHART AND EVENTS REVIEWED COMFORTABLE COMPLETE HD SESSION TODAY - Current Medication List Current Medications: Active Medications Calcitriol (Rocaltrol -) 0.5 mcg PO DAILY [facility] Last Admin: 04/12/17 11:17 Dose: 0.5 mcg Calcium Acetate (Phoslo -) 667 mg PO TIDCM [facility] Last Admin: 04/12/17 12:37 Dose: 667 mg Calcium Carbonate/Cholecalciferol (Os-Justin 500+D -) 2 tab PO DAILY [facility] Last Admin: 04/12/17 11:17 Dose: 2 tab Carvedilol (Coreg -) 25 mg PO BID [facility] Last Admin: 04/12/17 10:18 Dose: Not Given Ferrous Sulfate (Feosol -) 325 mg PO BIDWM [facility] Last Admin: 04/12/17 10:18 Dose: Not Given Hydralazine HCl (Apresoline -) 50 mg PO TID [facility] Last Admin: 04/12/17 05:58 Dose: 50 mg Nifedipine (Procardia Xl -) 90 mg PO DAILY [facility] Last Admin: 04/12/17 11:17 Dose: 90 mg Valsartan (Diovan -) 160 mg PO BID [facility] Last Admin: 04/12/17 10:18 Dose: Not Given - Objective Vital Signs: Vital Signs Temperature 97.2 F L 04/12/17 11:10 Pulse Rate 69 04/12/17 11:10 Respiratory Rate 18 04/12/17 11:10 Blood Pressure 143/84 04/12/17 11:10 O2 Sat by Pulse Oximetry (%) 100 04/11/17 21:00 Constitutional: Yes: No Distress Eyes: Yes: WNL HENT: Yes: WNL Neck: Yes: WNL Cardiovascular: Yes: WNL Respiratory: Yes: WNL Gastrointestinal: Yes: WNL Genitourinary: Yes: Other Musculoskeletal: Yes: Muscle Weakness Extremities: Yes: WNL Edema: No Peripheral Pulses WNL: Yes Integumentary: Yes: WNL Wound/Incision: Yes: Clean/Dry Neurological: Yes: Pre-Existing Deficit ...Motor Strength: LLE, RLE Psychiatric: Yes: Other Labs: CBC, BMP 04/12/17 08:33 04/12/17 08:33 INR, PTT INR 1.07 (0.82-1.09) 04/24/17 20:30 Problem List - Problems (1) Acute on chronic kidney failure Code(s): N17.9 - ACUTE KIDNEY FAILURE, UNSPECIFIED N18.9 - CHRONIC KIDNEY DISEASE, UNSPECIFIED (2) Diastolic dysfunction Code(s): I51.9 - HEART DISEASE, UNSPECIFIED (3) ESRD (end stage renal disease) Code(s): N18.6 - END STAGE RENAL DISEASE (4) Hyperparathyroidism due to renal insufficiency Code(s): N25.81 - SECONDARY HYPERPARATHYROIDISM OF RENAL ORIGIN (5) Hypertension Code(s): I10 - ESSENTIAL (PRIMARY) HYPERTENSION Qualifiers: Hypertension type: essential hypertension Qualified Code(s): I10 - Essential (primary) hypertension (6) Hypertensive cardiomyopathy Code(s): I11.9 - HYPERTENSIVE HEART DISEASE WITHOUT HEART FAILURE I42.9 - CARDIOMYOPATHY, UNSPECIFIED Qualifiers: Heart failure presence: without heart failure Qualified Code(s): I11.9 - Hypertensive heart disease without heart failure; I43 - Cardiomyopathy in diseases classified elsewhere Assessment/Plan ESRD ON HD RENAL F/U APPRECCIATED POOR PO INTAKE TODAY, I HAVE ASKED THE NURSES AIDS TO ASSIST IN FEEDS PLACEMENT TO SNF WITH HD OUTPATIENT
[2017-04-13] MEDS: hydrALAZINE HCL 25 MG TABLET (FP) PO SCH ×3 (06:27→21:37)
[2017-04-13] MEDS: FERROUS SO4 325 MG TABLET (FP) PO SCH ×2 (08:09→17:57)
[2017-04-13] MEDS: CALCIUM ACETATE 667 MG CAPSULE (FP) PO SCH ×3 (08:10→17:57)
[2017-04-13] MEDS: CARVEDILOL 25 MG TABLET (FP) PO SCH ×2 (09:14→21:37)
[2017-04-13] MEDS: CALCITRIOL 0.25 MCG CAPSULE (FP) PO SCH (09:15)
[2017-04-13] MEDS: VALSARTAN 160 MG TABLET (UD) PO SCH ×2 (09:15→21:37)
[2017-04-13] MEDS: CALCIUM 500MG/VIT-D 200 UNITS COMBO TABLET (FP) PO SCH (09:15)
[2017-04-13] MEDS ORDERED: PT OWN MED DRAWER 7, Y5N ONE (09:16)
[2017-04-13] MEDS: NIFEdipine E.R. 90 MG TABLET (FP) PO SCH (09:17)
--- NOTE | 2017-04-13 13:10 | PN ---
Progress Note, Physician History of Present Illness: No chest pain or dyspnea. BP improved. - Current Medication List Current Medications: Active Medications Calcitriol (Rocaltrol -) 0.5 mcg PO DAILY [facility] Last Admin: 04/13/17 09:15 Dose: 0.5 mcg Calcium Acetate (Phoslo -) 667 mg PO TIDCM [facility] Last Admin: 04/13/17 12:28 Dose: 667 mg Calcium Carbonate/Cholecalciferol (Os-Justin 500+D -) 2 tab PO DAILY [facility] Last Admin: 04/13/17 09:15 Dose: 2 tab Carvedilol (Coreg -) 25 mg PO BID [facility] Last Admin: 04/13/17 09:14 Dose: 25 mg Ferrous Sulfate (Feosol -) 325 mg PO BIDWM [facility] Last Admin: 04/13/17 08:09 Dose: 325 mg Hydralazine HCl (Apresoline -) 50 mg PO TID [facility] Last Admin: 04/13/17 06:27 Dose: 50 mg Nifedipine (Procardia Xl -) 90 mg PO DAILY [facility] Last Admin: 04/13/17 09:17 Dose: 90 mg Valsartan (Diovan -) 160 mg PO BID [facility] Last Admin: 04/13/17 09:15 Dose: 160 mg - Objective Vital Signs: Vital Signs Temperature 98.1 F 04/13/17 08:45 Pulse Rate 76 04/13/17 08:45 Respiratory Rate 19 04/13/17 08:45 Blood Pressure 145/85 04/13/17 08:45 O2 Sat by Pulse Oximetry (%) 100 04/12/17 21:00 Constitutional: Yes: No Distress, Calm Neck: Yes: Supple Cardiovascular: Yes: Regular Rate and Rhythm Respiratory: Yes: Regular, CTA Bilaterally Gastrointestinal: Yes: Normal Bowel Sounds, Soft Edema: No Labs: CBC, BMP 04/12/17 08:33 04/12/17 08:33 INR, PTT INR 1.07 (0.82-1.09) 03/24/17 20:30 Problem List - Problems (1) Acute on chronic kidney failure Code(s): N17.9 - ACUTE KIDNEY FAILURE, UNSPECIFIED N18.9 - CHRONIC KIDNEY DISEASE, UNSPECIFIED (2) ESRD (end stage renal disease) Code(s): N18.6 - END STAGE RENAL DISEASE (3) Hypertensive cardiomyopathy Code(s): I11.9 - HYPERTENSIVE HEART DISEASE WITHOUT HEART FAILURE I42.9 - CARDIOMYOPATHY, UNSPECIFIED Qualifiers: Heart failure presence: without heart failure Qualified Code(s): I11.9 - Hypertensive heart disease without heart failure; I43 - Cardiomyopathy in diseases classified elsewhere (4) Diastolic dysfunction Code(s): I51.9 - HEART DISEASE, UNSPECIFIED (5) Hypocalcemia Code(s): E83.51 - HYPOCALCEMIA (6) Hyperparathyroidism due to renal insufficiency Code(s): N25.81 - SECONDARY HYPERPARATHYROIDISM OF RENAL ORIGIN Assessment/Plan 03/25/2017 Echo: Normal LV size and fxn, mod cLVH, mild LAE, mild TR, RVSP 30-40 mmHg, mild [place], Tr-mild [place] 1. ESRD->HD 2. LV diastolic dysfunction with class I-II NYHA classification LV failure, compensated 3. CAD angina pectoris abnormal EKG with evidence of demand ischemia 4. HTN/HCVD, BP control improved 5. Anemia 6. Hypocalcemia improving 7. Hyperparathyroidism due to renal disease PLAN: 1. Continue Coreg 25 mg bid, Procardia XL 90 qd, Diovan 160 bid and hydralazine 50 tid 2. HD as per renal service, outpatient HD arrangement pending insurance coverage
--- NOTE | 2017-04-13 21:38 | PN ---
Progress Note, Physician Chief Complaint: THIS IS MY FIRST ENCOUNTER WITH THIS PATIENT PATIENT'S CHART AND EVENTS REVIEWED COMFORTABLE COMPLETE HD SESSION TODAY - Current Medication List Current Medications: Active Medications Calcitriol (Rocaltrol -) 0.5 mcg PO DAILY [facility] Last Admin: 04/13/17 09:15 Dose: 0.5 mcg Calcium Acetate (Phoslo -) 667 mg PO TIDCM [facility] Last Admin: 04/13/17 17:57 Dose: 667 mg Calcium Carbonate/Cholecalciferol (Os-Justin 500+D -) 2 tab PO DAILY [facility] Last Admin: 04/13/17 09:15 Dose: 2 tab Carvedilol (Coreg -) 25 mg PO BID [facility] Last Admin: 04/13/17 09:14 Dose: 25 mg Ferrous Sulfate (Feosol -) 325 mg PO BIDWM [facility] Last Admin: 04/13/17 17:57 Dose: 325 mg Hydralazine HCl (Apresoline -) 50 mg PO TID [facility] Last Admin: 04/13/17 13:28 Dose: 50 mg Nifedipine (Procardia Xl -) 90 mg PO DAILY [facility] Last Admin: 04/13/17 09:17 Dose: 90 mg Valsartan (Diovan -) 160 mg PO BID [facility] Last Admin: 04/13/17 09:15 Dose: 160 mg - Objective Vital Signs: Vital Signs Temperature 97.4 F L 04/13/17 18:00 Pulse Rate 77 04/13/17 18:00 Respiratory Rate 21 04/13/17 18:00 Blood Pressure 130/75 04/13/17 18:00 O2 Sat by Pulse Oximetry (%) 100 04/12/17 21:00 Constitutional: Yes: No Distress Eyes: Yes: WNL HENT: Yes: WNL Neck: Yes: WNL Cardiovascular: Yes: WNL Respiratory: Yes: WNL Gastrointestinal: Yes: WNL Genitourinary: Yes: Other Musculoskeletal: Yes: Muscle Weakness Extremities: Yes: WNL Edema: No Peripheral Pulses WNL: Yes Integumentary: Yes: WNL Wound/Incision: Yes: Clean/Dry Neurological: Yes: Other ...Motor Strength: LLE, RLE Psychiatric: Yes: Other Labs: CBC, BMP 04/12/17 08:33 04/12/17 08:33 INR, PTT INR 1.07 (0.82-1.09) 03/24/17 20:30 Problem List - Problems (1) Acute on chronic kidney failure Code(s): N17.9 - ACUTE KIDNEY FAILURE, UNSPECIFIED N18.9 - CHRONIC KIDNEY DISEASE, UNSPECIFIED (2) Diastolic dysfunction Code(s): I51.9 - HEART DISEASE, UNSPECIFIED (3) ESRD (end stage renal disease) Code(s): N18.6 - END STAGE RENAL DISEASE (4) Hyperparathyroidism due to renal insufficiency Code(s): N25.81 - SECONDARY HYPERPARATHYROIDISM OF RENAL ORIGIN (5) Hypertension Code(s): I10 - ESSENTIAL (PRIMARY) HYPERTENSION Qualifiers: Hypertension type: essential hypertension Qualified Code(s): I10 - Essential (primary) hypertension (6) Hypertensive cardiomyopathy Code(s): I11.9 - HYPERTENSIVE HEART DISEASE WITHOUT HEART FAILURE I42.9 - CARDIOMYOPATHY, UNSPECIFIED Qualifiers: Heart failure presence: without heart failure Qualified Code(s): I11.9 - Hypertensive heart disease without heart failure; I43 - Cardiomyopathy in diseases classified elsewhere Assessment/Plan ESRD ON HD RENAL F/U APPRECCIATED POOR PO INTAKE TODAY, I HAVE ASKED THE NURSES AIDS TO ASSIST IN FEEDS PLACEMENT TO SNF WITH HD OUTPATIENT
[2017-04-14] MEDS: hydrALAZINE HCL 25 MG TABLET (FP) PO SCH ×3 (06:10→22:52)
[2017-04-14] MEDS: FERROUS SO4 325 MG TABLET (FP) PO SCH ×2 (08:24→17:36)
[2017-04-14] MEDS: CALCIUM ACETATE 667 MG CAPSULE (FP) PO SCH ×3 (08:25→17:36)
[2017-04-14] MEDS ORDERED: PT OWN MED DRAWER 7, Y5N ONE (08:46)
[2017-04-14] MEDS: CALCITRIOL 0.25 MCG CAPSULE (FP) PO SCH (09:23)
[2017-04-14] MEDS: VALSARTAN 160 MG TABLET (UD) PO SCH ×2 (09:24→22:53)
[2017-04-14] MEDS: CALCIUM 500MG/VIT-D 200 UNITS COMBO TABLET (FP) PO SCH (09:24)
[2017-04-14] MEDS: CARVEDILOL 25 MG TABLET (FP) PO SCH ×2 (09:25→22:52)
[2017-04-14] MEDS: NIFEdipine E.R. 90 MG TABLET (FP) PO SCH ×2 (09:26→12:12)
--- NOTE | 2017-04-14 11:08 | PN ---
Progress Note, Physician History of Present Illness: No chest pain or dyspnea. - Current Medication List Current Medications: Active Medications Calcitriol (Rocaltrol -) 0.5 mcg PO DAILY [facility] Last Admin: 04/14/17 09:23 Dose: 0.5 mcg Calcium Acetate (Phoslo -) 667 mg PO TIDCM [facility] Last Admin: 04/14/17 08:25 Dose: 667 mg Calcium Carbonate/Cholecalciferol (Os-Justin 500+D -) 2 tab PO DAILY [facility] Last Admin: 04/14/17 09:24 Dose: 2 tab Carvedilol (Coreg -) 25 mg PO BID [facility] Last Admin: 04/14/17 09:25 Dose: 25 mg Ferrous Sulfate (Feosol -) 325 mg PO BIDWM [facility] Last Admin: 04/14/17 08:24 Dose: 325 mg Hydralazine HCl (Apresoline -) 50 mg PO TID [facility] Last Admin: 04/14/17 06:10 Dose: 50 mg Nifedipine (Procardia Xl -) 90 mg PO DAILY [facility] Last Admin: 04/14/17 09:26 Dose: Not Given Valsartan (Diovan -) 160 mg PO BID [facility] Last Admin: 04/14/17 09:24 Dose: 160 mg - Objective Vital Signs: Vital Signs Temperature 98.9 F 04/14/17 05:59 Pulse Rate 70 04/14/17 05:59 Respiratory Rate 20 04/14/17 05:59 Blood Pressure 182/98 04/14/17 05:59 O2 Sat by Pulse Oximetry (%) 100 04/12/17 21:00 Constitutional: Yes: No Distress, Calm Neck: Yes: Supple Cardiovascular: Yes: Regular Rate and Rhythm Respiratory: Yes: Regular, Diminished Gastrointestinal: Yes: Normal Bowel Sounds, Soft Edema: No Labs: CBC, BMP 04/12/17 08:33 04/12/17 08:33 INR, PTT INR 1.07 (0.82-1.09) 03/24/17 20:30 Problem List - Problems (1) Acute on chronic kidney failure Code(s): N17.9 - ACUTE KIDNEY FAILURE, UNSPECIFIED N18.9 - CHRONIC KIDNEY DISEASE, UNSPECIFIED (2) ESRD (end stage renal disease) Code(s): N18.6 - END STAGE RENAL DISEASE (3) Hypertensive cardiomyopathy Code(s): I11.9 - HYPERTENSIVE HEART DISEASE WITHOUT HEART FAILURE I42.9 - CARDIOMYOPATHY, UNSPECIFIED Qualifiers: Heart failure presence: without heart failure Qualified Code(s): I11.9 - Hypertensive heart disease without heart failure; I43 - Cardiomyopathy in diseases classified elsewhere (4) Diastolic dysfunction Code(s): I51.9 - HEART DISEASE, UNSPECIFIED (5) Hypocalcemia Code(s): E83.51 - HYPOCALCEMIA (6) Hyperparathyroidism due to renal insufficiency Code(s): N25.81 - SECONDARY HYPERPARATHYROIDISM OF RENAL ORIGIN Assessment/Plan 03/25/2017 Echo: Normal LV size and fxn, mod cLVH, mild LAE, mild TR, RVSP 30-40 mmHg, mild [place], Tr-mild [place] 1. ESRD->HD 2. LV diastolic dysfunction with class I-II NYHA classification LV failure, compensated 3. CAD angina pectoris abnormal EKG with evidence of demand ischemia 4. HTN/HCVD, BP control improved 5. Anemia 6. Hypocalcemia improving 7. Hyperparathyroidism due to renal disease PLAN: 1. Continue Coreg 25 mg bid, Procardia XL 90 qd, Diovan 160 bid and hydralazine 50 tid 2. HD as per renal service, outpatient HD arrangement pending insurance coverage
--- NOTE | 2017-04-14 15:03 | PN ---
Progress Note, Physician History of Present Illness: Pt seen and examined at bedside. He is awake and alert. - Current Medication List Current Medications: Active Medications Calcitriol (Rocaltrol -) 0.5 mcg PO DAILY [facility] Last Admin: 04/14/17 09:23 Dose: 0.5 mcg Calcium Acetate (Phoslo -) 667 mg PO TIDCM [facility] Last Admin: 04/14/17 12:12 Dose: 667 mg Calcium Carbonate/Cholecalciferol (Os-Ujstin 500+D -) 2 tab PO DAILY [facility] Last Admin: 04/14/17 09:24 Dose: 2 tab Carvedilol (Coreg -) 25 mg PO BID [facility] Last Admin: 04/14/17 09:25 Dose: 25 mg Ferrous Sulfate (Feosol -) 325 mg PO BIDWM [facility] Last Admin: 04/14/17 08:24 Dose: 325 mg Hydralazine HCl (Apresoline -) 50 mg PO TID [facility] Last Admin: 04/14/17 06:10 Dose: 50 mg Nifedipine (Procardia Xl -) 90 mg PO DAILY [facility] Last Admin: 04/14/17 12:12 Dose: 90 mg Valsartan (Diovan -) 160 mg PO BID [facility] Last Admin: 04/14/17 09:24 Dose: 160 mg - Objective Vital Signs: Vital Signs Temperature 99.0 F 04/14/17 14:51 Pulse Rate 82 04/14/17 14:51 Respiratory Rate 18 04/14/17 14:51 Blood Pressure 152/86 04/14/17 14:51 O2 Sat by Pulse Oximetry (%) 100 04/12/17 21:00 Constitutional: Yes: Calm Eyes: Yes: Conjunctiva Clear HENT: Yes: Atraumatic Neck: Yes: Supple Cardiovascular: Yes: S1, S2 Respiratory: Yes: CTA Bilaterally Gastrointestinal: Yes: Soft Genitourinary: Yes: WNL Musculoskeletal: Yes: WNL Edema: No Integumentary: Yes: WNL Neurological: Yes: Oriented Psychiatric: Yes: Oriented Labs: CBC, BMP 04/12/17 08:33 04/12/17 08:33 INR, PTT INR 1.07 (0.82-1.09) 03/24/17 20:30 Problem List - Problems (1) ESRD (end stage renal disease) Code(s): N18.6 - END STAGE RENAL DISEASE (2) Hypertension Code(s): I10 - ESSENTIAL (PRIMARY) HYPERTENSION Qualifiers: Hypertension type: essential hypertension Qualified Code(s): I10 - Essential (primary) hypertension (3) Hyperparathyroidism due to renal insufficiency Code(s): N25.81 - SECONDARY HYPERPARATHYROIDISM OF RENAL ORIGIN Assessment/Plan Current Medications Generic Name Dose Route Start Last Admin Trade Name Jenelle PRN Reason Stop Dose Admin Calcitriol 0.5 mcg 04/06/17 11:42 04/14/17 09:23 Rocaltrol - PO 0.5 mcg DAILY [facility] Administration Calcium Acetate 667 mg 03/25/17 17:30 04/14/17 12:12 Phoslo - PO 667 mg TIDCM [facility] Administration Calcium Carbonate/Cholecalciferol 2 tab 03/25/17 15:00 04/14/17 09:24 Os-Justin 500+D - PO 2 tab DAILY [facility] Administration Carvedilol 25 mg 03/25/17 10:00 04/14/17 09:25 Coreg - PO 25 mg BID [facility] Administration Ferrous Sulfate 325 mg 03/28/17 17:30 04/14/17 08:24 Feosol - PO 325 mg BIDWM [facility] Administration Hydralazine HCl 50 mg 04/06/17 14:00 04/14/17 06:10 Apresoline - PO 50 mg TID [facility] Administration Nifedipine 90 mg 04/05/17 10:00 04/14/17 12:12 Procardia Xl - PO 90 mg DAILY [facility] Administration Valsartan 160 mg 03/27/17 22:00 04/14/17 09:24 Diovan - PO 160 mg BID [facility] Administration Impression 1. ESRD 2. HTN 3. hypocalcemia improving 4. anemia 5. hyperparathyroidism due to renal disease Plan - will arrange for HD in am - check labs tomorrow - check phos level - will follow - cont current meds - cont iron supplements - pending placement Dr aRmos
--- NOTE | 2017-04-14 19:51 | PN ---
Progress Note, Physician History of Present Illness: no complaints - Current Medication List Current Medications: Active Medications Calcitriol (Rocaltrol -) 0.5 mcg PO DAILY [facility] Last Admin: 04/14/17 09:23 Dose: 0.5 mcg Calcium Acetate (Phoslo -) 667 mg PO TIDCM [facility] Last Admin: 04/14/17 17:36 Dose: 667 mg Calcium Carbonate/Cholecalciferol (Os-Justin 500+D -) 2 tab PO DAILY [facility] Last Admin: 04/14/17 09:24 Dose: 2 tab Carvedilol (Coreg -) 25 mg PO BID [facility] Last Admin: 04/14/17 09:25 Dose: 25 mg Ferrous Sulfate (Feosol -) 325 mg PO BIDWM [facility] Last Admin: 04/14/17 17:36 Dose: 325 mg Heparin Sodium (Porcine) (Heparin -) 1,000 unit IVPUSH ONCE ONE Stop: 04/15/17 15:04 Hydralazine HCl (Apresoline -) 50 mg PO TID [facility] Last Admin: 04/14/17 15:26 Dose: 50 mg Nifedipine (Procardia Xl -) 90 mg PO DAILY [facility] Last Admin: 04/14/17 12:12 Dose: 90 mg Valsartan (Diovan -) 160 mg PO BID [facility] Last Admin: 04/14/17 09:24 Dose: 160 mg - Objective Vital Signs: Vital Signs Temperature 99.0 F 04/14/17 14:51 Pulse Rate 82 04/14/17 14:51 Respiratory Rate 18 04/14/17 14:51 Blood Pressure 152/86 04/14/17 14:51 O2 Sat by Pulse Oximetry (%) 100 04/12/17 21:00 Constitutional: Yes: No Distress HENT: Yes: Atraumatic Neck: Yes: Supple Cardiovascular: Yes: Regular Rate and Rhythm Respiratory: Yes: Rhonchi Gastrointestinal: Yes: Normal Bowel Sounds Extremities: Yes: WNL Neurological: Yes: Alert, Oriented Labs: CBC, BMP 04/12/17 08:33 04/12/17 08:33 INR, PTT INR 1.07 (0.82-1.09) 03/24/17 20:30 Problem List - Problems (1) Acute on chronic kidney failure Assessment/Plan: ON HD renal on board Code(s): N17.9 - ACUTE KIDNEY FAILURE, UNSPECIFIED N18.9 - CHRONIC KIDNEY DISEASE, UNSPECIFIED (2) ESRD (end stage renal disease) Assessment/Plan: on hd Code(s): N18.6 - END STAGE RENAL DISEASE (3) Hypertension Assessment/Plan: ON MEDS STABLE Code(s): I10 - ESSENTIAL (PRIMARY) HYPERTENSION Qualifiers: Hypertension type: essential hypertension Qualified Code(s): I10 - Essential (primary) hypertension Assessment/Plan pt awaiting insurance...dc planning CM NOTES REVIEWED
[2017-04-15] MEDS: hydrALAZINE HCL 25 MG TABLET (FP) PO SCH ×3 (06:52→21:42)
[2017-04-15] MEDS: CALCIUM ACETATE 667 MG CAPSULE (FP) PO SCH ×3 (08:30→17:29)
[2017-04-15] MEDS: FERROUS SO4 325 MG TABLET (FP) PO SCH ×2 (08:30→17:29)
[2017-04-15] MEDS: CARVEDILOL 25 MG TABLET (FP) PO SCH ×3 (09:04→21:42)
[2017-04-15] MEDS: CALCIUM 500MG/VIT-D 200 UNITS COMBO TABLET (FP) PO SCH ×2 (09:05→14:55)
[2017-04-15] MEDS: VALSARTAN 160 MG TABLET (UD) PO SCH ×2 (09:05→21:42)
[2017-04-15] MEDS: CALCITRIOL 0.25 MCG CAPSULE (FP) PO SCH ×2 (09:05→14:56)
[2017-04-15] MEDS: NIFEdipine E.R. 90 MG TABLET (FP) PO SCH (09:05)
[2017-04-15] MEDS ORDERED: HEPARIN NA (PORCINE) 5,000 UNITS/ML 1ML VIAL IVPUSH ONE (09:30)
[2017-04-15 09:47] LABS: BASOPHIL 2.8 % (0-2.0); EOSINOPHIL 5.3 % (0-4.5); MCH 26.6 pg (25.7-33.7); MCHC 32.8 g/dl (32.0-35.9); MEAN PLT VOLUME 8.3 fl (7.5-11.1); NEUTROPHILS 53.6 % (42.8-82.8); PLATELET COUNT 264 K/MM3 (134-434); RDW 17.8 % (11.9-15.9); WHITE BLOOD COUNT 5.2 K/mm3 (4.0-10.0)
[2017-04-15 10:17] LABS: ALBUMIN 3.4 g/dl (3.4-5.0); BILIRUBIN,TOTAL 0.3 mg/dL (0.2-1.0); CALCIUM 8.4 mg/dL (8.5-10.1); PHOSPHOROUS 4.6 mg/dL (2.5-4.9); TOT PROT 6.8 g/dl (6.4-8.2)
[2017-04-15 10:22] LABS: COCKROFT - GAULT 7.74
[2017-04-15 10:42] LABS: CREATININE 10.8 mg/dL (0.7-1.3)
--- NOTE | 2017-04-15 13:31 | PN ---
Progress Note, Physician History of Present Illness: Pt seen and examined at bedside. He is awake and alert. He is currently getting HD. - Current Medication List Current Medications: Active Medications Calcitriol (Rocaltrol -) 0.5 mcg PO DAILY [facility] Last Admin: 04/15/17 09:05 Dose: Not Given Calcium Acetate (Phoslo -) 667 mg PO TIDCM [facility] Last Admin: 04/15/17 08:30 Dose: 667 mg Calcium Carbonate/Cholecalciferol (Os-Justin 500+D -) 2 tab PO DAILY [facility] Last Admin: 04/15/17 09:05 Dose: Not Given Carvedilol (Coreg -) 25 mg PO BID [facility] Last Admin: 04/15/17 09:04 Dose: Not Given Ferrous Sulfate (Feosol -) 325 mg PO BIDWM [facility] Last Admin: 04/15/17 08:30 Dose: 325 mg Hydralazine HCl (Apresoline -) 50 mg PO TID [facility] Last Admin: 04/15/17 06:52 Dose: 50 mg Nifedipine (Procardia Xl -) 90 mg PO DAILY [facility] Last Admin: 04/15/17 09:05 Dose: Not Given Valsartan (Diovan -) 160 mg PO BID [facility] Last Admin: 04/15/17 09:05 Dose: Not Given - Objective Vital Signs: Vital Signs Temperature 97.8 F 04/15/17 08:45 Pulse Rate 67 04/15/17 13:00 Respiratory Rate 18 04/15/17 13:00 Blood Pressure 151/90 04/15/17 13:00 O2 Sat by Pulse Oximetry (%) 99 04/15/17 09:00 Constitutional: Yes: Calm Eyes: Yes: Conjunctiva Clear HENT: Yes: Atraumatic Neck: Yes: Supple Cardiovascular: Yes: S1, S2 Respiratory: Yes: CTA Bilaterally Gastrointestinal: Yes: Normal Bowel Sounds, Soft Genitourinary: Yes: WNL Musculoskeletal: Yes: WNL Edema: No Neurological: Yes: Oriented Psychiatric: Yes: Oriented Labs: CBC, BMP 04/15/17 08:50 04/15/17 08:50 INR, PTT INR 1.07 (0.82-1.09) 03/24/17 20:30 Problem List - Problems (1) ESRD (end stage renal disease) Code(s): N18.6 - END STAGE RENAL DISEASE (2) Hypertension Code(s): I10 - ESSENTIAL (PRIMARY) HYPERTENSION Qualifiers: Hypertension type: essential hypertension Qualified Code(s): I10 - Essential (primary) hypertension (3) Hyperparathyroidism due to renal insufficiency Code(s): N25.81 - SECONDARY HYPERPARATHYROIDISM OF RENAL ORIGIN Assessment/Plan Current Medications Generic Name Dose Route Start Last Admin Trade Name Freq PRN Reason Stop Dose Admin Calcitriol 0.5 mcg 04/06/17 11:42 04/15/17 09:05 Rocaltrol - PO Not Given DAILY [facility] Calcium Acetate 667 mg 03/25/17 17:30 04/15/17 08:30 Phoslo - PO 667 mg TIDCM [facility] Administration Calcium Carbonate/Cholecalciferol 2 tab 03/25/17 15:00 04/15/17 09:05 Os-Justin 500+D - PO Not Given DAILY [facility] Carvedilol 25 mg 03/25/17 10:00 04/15/17 09:04 Coreg - PO Not Given BID [facility] Ferrous Sulfate 325 mg 03/28/17 17:30 04/15/17 08:30 Feosol - PO 325 mg BIDWM [facility] Administration Hydralazine HCl 50 mg 04/06/17 14:00 04/15/17 06:52 Apresoline - PO 50 mg TID [facility] Administration Nifedipine 90 mg 04/05/17 10:00 04/15/17 09:05 Procardia Xl - PO Not Given DAILY [facility] Valsartan 160 mg 03/27/17 22:00 04/15/17 09:05 Diovan - PO Not Given BID [facility] Laboratory Tests 04/15/17 04/15/17 08:50 08:50 Hgb 9.9 L Phosphorus 4.6 Impression 1. ESRD 2. HTN 3. hypocalcemia improving 4. anemia 5. hyperparathyroidism due to renal disease Plan - HD today - cont current meds - labs reviewed - cont current meds - cont iron supplements - pending placement Dr Ramos
--- NOTE | 2017-04-15 14:39 | PN ---
Progress Note, Physician History of Present Illness: no complaints - Current Medication List Current Medications: Active Medications Calcitriol (Rocaltrol -) 0.5 mcg PO DAILY [facility] Last Admin: 04/15/17 09:05 Dose: Not Given Calcium Acetate (Phoslo -) 667 mg PO TIDCM [facility] Last Admin: 04/15/17 08:30 Dose: 667 mg Calcium Carbonate/Cholecalciferol (Os-Justin 500+D -) 2 tab PO DAILY [facility] Last Admin: 04/15/17 09:05 Dose: Not Given Carvedilol (Coreg -) 25 mg PO BID [facility] Last Admin: 04/15/17 09:04 Dose: Not Given Ferrous Sulfate (Feosol -) 325 mg PO BIDWM [facility] Last Admin: 04/15/17 08:30 Dose: 325 mg Hydralazine HCl (Apresoline -) 50 mg PO TID [facility] Last Admin: 04/15/17 06:52 Dose: 50 mg Nifedipine (Procardia Xl -) 90 mg PO DAILY [facility] Last Admin: 04/15/17 09:05 Dose: Not Given Valsartan (Diovan -) 160 mg PO BID [facility] Last Admin: 04/15/17 09:05 Dose: Not Given - Objective Vital Signs: Vital Signs Temperature 97.8 F 04/15/17 08:45 Pulse Rate 67 04/15/17 13:00 Respiratory Rate 18 04/15/17 13:00 Blood Pressure 151/90 04/15/17 13:00 O2 Sat by Pulse Oximetry (%) 99 04/15/17 09:00 Constitutional: Yes: No Distress HENT: Yes: Atraumatic Neck: Yes: Supple Cardiovascular: Yes: Regular Rate and Rhythm Respiratory: Yes: CTA Bilaterally Gastrointestinal: Yes: Normal Bowel Sounds Extremities: Yes: WNL Neurological: Yes: Alert, Oriented Labs: CBC, BMP 04/15/17 08:50 04/15/17 08:50 INR, PTT INR 1.07 (0.82-1.09) 03/24/17 20:30 Problem List - Problems (1) Acute on chronic kidney failure Assessment/Plan: ON HD renal on board Code(s): N17.9 - ACUTE KIDNEY FAILURE, UNSPECIFIED N18.9 - CHRONIC KIDNEY DISEASE, UNSPECIFIED (2) ESRD (end stage renal disease) Assessment/Plan: on hd Code(s): N18.6 - END STAGE RENAL DISEASE (3) Hypertension Assessment/Plan: ON MEDS STABLE Code(s): I10 - ESSENTIAL (PRIMARY) HYPERTENSION Qualifiers: Hypertension type: essential hypertension Qualified Code(s): I10 - Essential (primary) hypertension Assessment/Plan pt awaiting insurance...dc planning CM NOTES REVIEWED
[2017-04-16] MEDS: hydrALAZINE HCL 25 MG TABLET (FP) PO SCH ×3 (05:55→21:00)
[2017-04-16] MEDS: CALCIUM ACETATE 667 MG CAPSULE (FP) PO SCH ×3 (08:27→17:34)
[2017-04-16] MEDS: FERROUS SO4 325 MG TABLET (FP) PO SCH ×2 (08:27→17:34)
[2017-04-16] MEDS: CALCIUM 500MG/VIT-D 200 UNITS COMBO TABLET (FP) PO SCH (09:35)
[2017-04-16] MEDS: CALCITRIOL 0.25 MCG CAPSULE (FP) PO SCH (09:35)
[2017-04-16] MEDS: VALSARTAN 160 MG TABLET (UD) PO SCH ×2 (09:35→21:00)
[2017-04-16] MEDS: CARVEDILOL 25 MG TABLET (FP) PO SCH ×2 (09:36→21:00)
[2017-04-16] MEDS ORDERED: PT OWN MED DRAWER 7, Y5N ONE (09:37)
[2017-04-16] MEDS: NIFEdipine E.R. 90 MG TABLET (FP) PO SCH (09:38)
--- NOTE | 2017-04-16 12:07 | PN ---
Progress Note, Physician History of Present Illness: Pt seen and examined at bedside. He is awake and alert. He has no complaints. - Current Medication List Current Medications: Active Medications Calcitriol (Rocaltrol -) 0.5 mcg PO DAILY [facility] Last Admin: 04/16/17 09:35 Dose: 0.5 mcg Calcium Acetate (Phoslo -) 667 mg PO TIDCM [facility] Last Admin: 04/16/17 08:27 Dose: 667 mg Calcium Carbonate/Cholecalciferol (Os-Justin 500+D -) 2 tab PO DAILY [facility] Last Admin: 04/16/17 09:35 Dose: 2 tab Carvedilol (Coreg -) 25 mg PO BID [facility] Last Admin: 04/16/17 09:36 Dose: 25 mg Ferrous Sulfate (Feosol -) 325 mg PO BIDWM [facility] Last Admin: 04/16/17 08:27 Dose: 325 mg Hydralazine HCl (Apresoline -) 50 mg PO TID [facility] Last Admin: 04/16/17 05:55 Dose: 50 mg Nifedipine (Procardia Xl -) 90 mg PO DAILY [facility] Last Admin: 04/16/17 09:38 Dose: 90 mg Valsartan (Diovan -) 160 mg PO BID [facility] Last Admin: 04/16/17 09:35 Dose: 160 mg - Objective Vital Signs: Vital Signs Temperature 98.4 F 04/16/17 09:00 Pulse Rate 78 04/16/17 09:00 Respiratory Rate 16 04/16/17 09:00 Blood Pressure 130/72 04/16/17 09:00 O2 Sat by Pulse Oximetry (%) 99 04/16/17 09:00 Constitutional: Yes: Calm Eyes: Yes: Conjunctiva Clear HENT: Yes: Atraumatic Neck: Yes: Supple Cardiovascular: Yes: S1, S2 Respiratory: Yes: CTA Bilaterally Gastrointestinal: Yes: Normal Bowel Sounds, Soft Genitourinary: Yes: WNL Musculoskeletal: Yes: WNL Edema: No Neurological: Yes: Oriented Psychiatric: Yes: Oriented Labs: CBC, BMP 04/15/17 08:50 04/15/17 08:50 INR, PTT INR 1.07 (0.82-1.09) 03/24/17 20:30 Problem List - Problems (1) ESRD (end stage renal disease) Code(s): N18.6 - END STAGE RENAL DISEASE (2) Hypertension Code(s): I10 - ESSENTIAL (PRIMARY) HYPERTENSION Qualifiers: Hypertension type: essential hypertension Qualified Code(s): I10 - Essential (primary) hypertension (3) Hyperparathyroidism due to renal insufficiency Code(s): N25.81 - SECONDARY HYPERPARATHYROIDISM OF RENAL ORIGIN Assessment/Plan Current Medications Generic Name Dose Route Start Last Admin Trade Name Murtazaq PRN Reason Stop Dose Admin Calcitriol 0.5 mcg 04/06/17 11:42 04/16/17 09:35 Rocaltrol - PO 0.5 mcg DAILY [facility] Administration Calcium Acetate 667 mg 03/25/17 17:30 04/16/17 08:27 Phoslo - PO 667 mg TIDCM [facility] Administration Calcium Carbonate/Cholecalciferol 2 tab 03/25/17 15:00 04/16/17 09:35 Os-Justin 500+D - PO 2 tab DAILY [facility] Administration Carvedilol 25 mg 03/25/17 10:00 04/16/17 09:36 Coreg - PO 25 mg BID [facility] Administration Ferrous Sulfate 325 mg 03/28/17 17:30 04/16/17 08:27 Feosol - PO 325 mg BIDWM [facility] Administration Hydralazine HCl 50 mg 04/06/17 14:00 04/16/17 05:55 Apresoline - PO 50 mg TID [facility] Administration Nifedipine 90 mg 04/05/17 10:00 04/16/17 09:38 Procardia Xl - PO 90 mg DAILY [facility] Administration Valsartan 160 mg 03/27/17 22:00 04/16/17 09:35 Diovan - PO 160 mg BID [facility] Administration Impression 1. ESRD 2. HTN 3. hypocalcemia improving 4. anemia 5. hyperparathyroidism due to renal disease Plan - HD in am - cont current meds - cont iron supplements - pending placement Dr Ramos
--- NOTE | 2017-04-16 12:23 | PN ---
Progress Note, Physician History of Present Illness: No chest pain or dyspnea. - Current Medication List Current Medications: Active Medications Calcitriol (Rocaltrol -) 0.5 mcg PO DAILY [facility] Last Admin: 04/16/17 09:35 Dose: 0.5 mcg Calcium Acetate (Phoslo -) 667 mg PO TIDCM [facility] Last Admin: 04/16/17 08:27 Dose: 667 mg Calcium Carbonate/Cholecalciferol (Os-Justin 500+D -) 2 tab PO DAILY [facility] Last Admin: 04/16/17 09:35 Dose: 2 tab Carvedilol (Coreg -) 25 mg PO BID [facility] Last Admin: 04/16/17 09:36 Dose: 25 mg Ferrous Sulfate (Feosol -) 325 mg PO BIDWM [facility] Last Admin: 04/16/17 08:27 Dose: 325 mg Heparin Sodium (Porcine) (Heparin -) 1,000 unit IVPUSH ONCE ONE Stop: 04/17/17 12:08 Hydralazine HCl (Apresoline -) 50 mg PO TID [facility] Last Admin: 04/16/17 05:55 Dose: 50 mg Nifedipine (Procardia Xl -) 90 mg PO DAILY [facility] Last Admin: 04/16/17 09:38 Dose: 90 mg Valsartan (Diovan -) 160 mg PO BID [facility] Last Admin: 04/16/17 09:35 Dose: 160 mg - Objective Vital Signs: Vital Signs Temperature 98.4 F 04/16/17 09:00 Pulse Rate 78 04/16/17 09:00 Respiratory Rate 16 04/16/17 09:00 Blood Pressure 130/72 04/16/17 09:00 O2 Sat by Pulse Oximetry (%) 99 04/16/17 09:00 Constitutional: Yes: No Distress, Calm, Thin Neck: Yes: Supple Cardiovascular: Yes: Regular Rate and Rhythm Respiratory: Yes: Regular, CTA Bilaterally Gastrointestinal: Yes: Normal Bowel Sounds, Soft Edema: No Labs: CBC, BMP 04/15/17 08:50 04/15/17 08:50 INR, PTT INR 1.07 (0.82-1.09) 03/24/17 20:30 Problem List - Problems (1) Acute on chronic kidney failure Code(s): N17.9 - ACUTE KIDNEY FAILURE, UNSPECIFIED N18.9 - CHRONIC KIDNEY DISEASE, UNSPECIFIED (2) ESRD (end stage renal disease) Code(s): N18.6 - END STAGE RENAL DISEASE (3) Hypertensive cardiomyopathy Code(s): I11.9 - HYPERTENSIVE HEART DISEASE WITHOUT HEART FAILURE I42.9 - CARDIOMYOPATHY, UNSPECIFIED Qualifiers: Heart failure presence: without heart failure Qualified Code(s): I11.9 - Hypertensive heart disease without heart failure; I43 - Cardiomyopathy in diseases classified elsewhere (4) Diastolic dysfunction Code(s): I51.9 - HEART DISEASE, UNSPECIFIED (5) Hypocalcemia Code(s): E83.51 - HYPOCALCEMIA (6) Hyperparathyroidism due to renal insufficiency Code(s): N25.81 - SECONDARY HYPERPARATHYROIDISM OF RENAL ORIGIN Assessment/Plan 03/25/2017 Echo: Normal LV size and fxn, mod cLVH, mild LAE, mild TR, RVSP 30-40 mmHg, mild [place], Tr-mild [place] 1. ESRD->HD 2. LV diastolic dysfunction with class I-II NYHA classification LV failure, compensated 3. CAD angina pectoris abnormal EKG with evidence of demand ischemia 4. HTN/HCVD, BP control improved 5. Anemia 6. Hypocalcemia improving 7. Hyperparathyroidism due to renal disease PLAN: 1. Continue Coreg 25 mg bid, Procardia XL 90 qd, Diovan 160 bid and hydralazine 50 tid 2. HD as per renal service, outpatient HD arrangement pending insurance coverage
--- NOTE | 2017-04-16 18:39 | PN ---
Progress Note, Physician History of Present Illness: no complaints - Current Medication List Current Medications: Active Medications Calcitriol (Rocaltrol -) 0.5 mcg PO DAILY [facility] Last Admin: 04/16/17 09:35 Dose: 0.5 mcg Calcium Acetate (Phoslo -) 667 mg PO TIDCM [facility] Last Admin: 04/16/17 17:34 Dose: 667 mg Calcium Carbonate/Cholecalciferol (Os-Justin 500+D -) 2 tab PO DAILY [facility] Last Admin: 04/16/17 09:35 Dose: 2 tab Carvedilol (Coreg -) 25 mg PO BID [facility] Last Admin: 04/16/17 09:36 Dose: 25 mg Ferrous Sulfate (Feosol -) 325 mg PO BIDWM [facility] Last Admin: 04/16/17 17:34 Dose: 325 mg Heparin Sodium (Porcine) (Heparin -) 1,000 unit IVPUSH ONCE ONE Stop: 04/17/17 12:08 Hydralazine HCl (Apresoline -) 50 mg PO TID [facility] Last Admin: 04/16/17 12:59 Dose: 50 mg Nifedipine (Procardia Xl -) 90 mg PO DAILY [facility] Last Admin: 04/16/17 09:38 Dose: 90 mg Valsartan (Diovan -) 160 mg PO BID [facility] Last Admin: 04/16/17 09:35 Dose: 160 mg - Objective Vital Signs: Vital Signs Temperature 98.1 F 04/16/17 17:25 Pulse Rate 77 04/16/17 17:25 Respiratory Rate 20 04/16/17 17:25 Blood Pressure 130/83 04/16/17 17:25 O2 Sat by Pulse Oximetry (%) 99 04/16/17 09:00 Constitutional: Yes: No Distress HENT: Yes: Atraumatic Neck: Yes: Supple Cardiovascular: Yes: Regular Rate and Rhythm Respiratory: Yes: CTA Bilaterally Gastrointestinal: Yes: Normal Bowel Sounds Extremities: Yes: WNL Neurological: Yes: Alert, Oriented Labs: CBC, BMP 04/15/17 08:50 04/15/17 08:50 INR, PTT INR 1.07 (0.82-1.09) 03/24/17 20:30 Problem List - Problems (1) Acute on chronic kidney failure Assessment/Plan: ON HD renal on board Code(s): N17.9 - ACUTE KIDNEY FAILURE, UNSPECIFIED N18.9 - CHRONIC KIDNEY DISEASE, UNSPECIFIED (2) ESRD (end stage renal disease) Assessment/Plan: on hd Code(s): N18.6 - END STAGE RENAL DISEASE (3) Hypertension Assessment/Plan: ON MEDS STABLE Code(s): I10 - ESSENTIAL (PRIMARY) HYPERTENSION Qualifiers: Hypertension type: essential hypertension Qualified Code(s): I10 - Essential (primary) hypertension Assessment/Plan pt awaiting insurance...dc planning CM NOTES REVIEWED
[2017-04-17] MEDS: hydrALAZINE HCL 25 MG TABLET (FP) PO SCH ×3 (05:55→21:20)
[2017-04-17] MEDS: CALCIUM ACETATE 667 MG CAPSULE (FP) PO SCH ×3 (08:35→18:23)
[2017-04-17] MEDS: FERROUS SO4 325 MG TABLET (FP) PO SCH ×2 (08:35→18:23)
[2017-04-17] MEDS ORDERED: HEPARIN NA (PORCINE) 5,000 UNITS/ML 1ML VIAL IVPUSH ONE (09:00)
[2017-04-17] MEDS ORDERED: PT OWN MED DRAWER 7, Y5N ONE (11:04)
[2017-04-17] MEDS: CARVEDILOL 25 MG TABLET (FP) PO SCH ×2 (11:16→21:20)
[2017-04-17] MEDS: NIFEdipine E.R. 90 MG TABLET (FP) PO SCH (11:16)
[2017-04-17] MEDS: CALCITRIOL 0.25 MCG CAPSULE (FP) PO SCH (11:16)
[2017-04-17] MEDS: VALSARTAN 160 MG TABLET (UD) PO SCH ×2 (11:16→21:20)
[2017-04-17] MEDS: CALCIUM 500MG/VIT-D 200 UNITS COMBO TABLET (FP) PO SCH (11:16)
--- NOTE | 2017-04-17 15:48 | PN ---
Progress Note, Physician History of Present Illness: No chest pain or dyspnea. - Current Medication List Current Medications: Active Medications Calcitriol (Rocaltrol -) 0.5 mcg PO DAILY [facility] Last Admin: 04/17/17 11:16 Dose: 0.5 mcg Calcium Acetate (Phoslo -) 667 mg PO TIDCM [facility] Last Admin: 04/17/17 12:43 Dose: 667 mg Calcium Carbonate/Cholecalciferol (Os-Justin 500+D -) 2 tab PO DAILY [facility] Last Admin: 04/17/17 11:16 Dose: 2 tab Carvedilol (Coreg -) 25 mg PO BID [facility] Last Admin: 04/17/17 11:16 Dose: 25 mg Ferrous Sulfate (Feosol -) 325 mg PO BIDWM [facility] Last Admin: 04/17/17 08:35 Dose: 325 mg Hydralazine HCl (Apresoline -) 50 mg PO TID [facility] Last Admin: 04/17/17 15:18 Dose: 50 mg Nifedipine (Procardia Xl -) 90 mg PO DAILY [facility] Last Admin: 04/17/17 11:16 Dose: 90 mg Valsartan (Diovan -) 160 mg PO BID [facility] Last Admin: 04/17/17 11:16 Dose: 160 mg - Objective Vital Signs: Vital Signs Temperature 98.6 F 04/17/17 14:50 Pulse Rate 74 04/17/17 14:50 Respiratory Rate 18 04/17/17 14:50 Blood Pressure 130/78 04/17/17 14:50 O2 Sat by Pulse Oximetry (%) 98 04/17/17 11:35 Constitutional: Yes: No Distress, Calm Neck: Yes: Supple Cardiovascular: Yes: Regular Rate and Rhythm Respiratory: Yes: Regular, CTA Bilaterally Gastrointestinal: Yes: Normal Bowel Sounds, Soft Edema: No Labs: CBC, BMP 04/15/17 08:50 04/15/17 08:50 INR, PTT INR 1.07 (0.82-1.09) 03/24/17 20:30 Problem List - Problems (1) Acute on chronic kidney failure Code(s): N17.9 - ACUTE KIDNEY FAILURE, UNSPECIFIED N18.9 - CHRONIC KIDNEY DISEASE, UNSPECIFIED (2) ESRD (end stage renal disease) Code(s): N18.6 - END STAGE RENAL DISEASE (3) Hypertensive cardiomyopathy Code(s): I11.9 - HYPERTENSIVE HEART DISEASE WITHOUT HEART FAILURE I42.9 - CARDIOMYOPATHY, UNSPECIFIED Qualifiers: Heart failure presence: without heart failure Qualified Code(s): I11.9 - Hypertensive heart disease without heart failure; I43 - Cardiomyopathy in diseases classified elsewhere (4) Diastolic dysfunction Code(s): I51.9 - HEART DISEASE, UNSPECIFIED (5) Hypocalcemia Code(s): E83.51 - HYPOCALCEMIA (6) Hyperparathyroidism due to renal insufficiency Code(s): N25.81 - SECONDARY HYPERPARATHYROIDISM OF RENAL ORIGIN Assessment/Plan 03/25/2017 Echo: Normal LV size and fxn, mod cLVH, mild LAE, mild TR, RVSP 30-40 mmHg, mild [place], Tr-mild [place] 1. ESRD->HD 2. LV diastolic dysfunction with class I-II NYHA classification LV failure, compensated 3. CAD angina pectoris abnormal EKG with evidence of demand ischemia 4. HTN/HCVD, BP control improved 5. Anemia 6. Hypocalcemia improving 7. Hyperparathyroidism due to renal disease PLAN: 1. Continue Coreg 25 mg bid, Procardia XL 90 qd, Diovan 160 bid and hydralazine 50 tid 2. HD as per renal service, outpatient HD arrangement pending insurance coverage
--- NOTE | 2017-04-17 16:57 | PN ---
Progress Note, Physician History of Present Illness: Pt seen and examined at bedside. He is awake and alert. He denies shortness of breath. - Current Medication List Current Medications: Active Medications Calcitriol (Rocaltrol -) 0.5 mcg PO DAILY [facility] Last Admin: 04/17/17 11:16 Dose: 0.5 mcg Calcium Acetate (Phoslo -) 667 mg PO TIDCM [facility] Last Admin: 04/17/17 12:43 Dose: 667 mg Calcium Carbonate/Cholecalciferol (Os-Justin 500+D -) 2 tab PO DAILY [facility] Last Admin: 04/17/17 11:16 Dose: 2 tab Carvedilol (Coreg -) 25 mg PO BID [facility] Last Admin: 04/17/17 11:16 Dose: 25 mg Ferrous Sulfate (Feosol -) 325 mg PO BIDWM [facility] Last Admin: 04/17/17 08:35 Dose: 325 mg Hydralazine HCl (Apresoline -) 50 mg PO TID [facility] Last Admin: 04/17/17 15:18 Dose: 50 mg Nifedipine (Procardia Xl -) 90 mg PO DAILY [facility] Last Admin: 04/17/17 11:16 Dose: 90 mg Valsartan (Diovan -) 160 mg PO BID [facility] Last Admin: 04/17/17 11:16 Dose: 160 mg - Objective Vital Signs: Vital Signs Temperature 98.6 F 04/17/17 14:50 Pulse Rate 74 04/17/17 14:50 Respiratory Rate 18 04/17/17 14:50 Blood Pressure 130/78 04/17/17 14:50 O2 Sat by Pulse Oximetry (%) 98 04/17/17 11:35 Constitutional: Yes: Calm Eyes: Yes: Conjunctiva Clear HENT: Yes: Atraumatic Neck: Yes: Supple Cardiovascular: Yes: S1, S2 Respiratory: Yes: CTA Bilaterally Gastrointestinal: Yes: Soft Genitourinary: Yes: WNL Musculoskeletal: Yes: WNL Edema: No Neurological: Yes: Oriented Psychiatric: Yes: Oriented Labs: CBC, BMP 04/15/17 08:50 04/15/17 08:50 INR, PTT INR 1.07 (0.82-1.09) 03/24/17 20:30 Problem List - Problems (1) ESRD (end stage renal disease) Code(s): N18.6 - END STAGE RENAL DISEASE (2) Hypertension Code(s): I10 - ESSENTIAL (PRIMARY) HYPERTENSION Qualifiers: Hypertension type: essential hypertension Qualified Code(s): I10 - Essential (primary) hypertension (3) Hyperparathyroidism due to renal insufficiency Code(s): N25.81 - SECONDARY HYPERPARATHYROIDISM OF RENAL ORIGIN Assessment/Plan Current Medications Generic Name Dose Route Start Last Admin Trade Name Murtazaq PRN Reason Stop Dose Admin Calcitriol 0.5 mcg 04/06/17 11:42 04/17/17 11:16 Rocaltrol - PO 0.5 mcg DAILY [facility] Administration Calcium Acetate 667 mg 03/25/17 17:30 04/17/17 12:43 Phoslo - PO 667 mg TIDCM [facility] Administration Calcium Carbonate/Cholecalciferol 2 tab 03/25/17 15:00 04/17/17 11:16 Os-Justin 500+D - PO 2 tab DAILY [facility] Administration Carvedilol 25 mg 03/25/17 10:00 04/17/17 11:16 Coreg - PO 25 mg BID [facility] Administration Ferrous Sulfate 325 mg 03/28/17 17:30 04/17/17 08:35 Feosol - PO 325 mg BIDWM [facility] Administration Hydralazine HCl 50 mg 04/06/17 14:00 04/17/17 15:18 Apresoline - PO 50 mg TID [facility] Administration Nifedipine 90 mg 04/05/17 10:00 04/17/17 11:16 Procardia Xl - PO 90 mg DAILY [facility] Administration Valsartan 160 mg 03/27/17 22:00 04/17/17 11:16 Diovan - PO 160 mg BID [facility] Administration Impression 1. ESRD 2. HTN 3. hypocalcemia improving 4. anemia 5. hyperparathyroidism due to renal disease Plan - pt tolerated HD - cont current meds - cont iron supplements - pending placement Dr Ramos
--- NOTE | 2017-04-17 17:02 | PN ---
Progress Note, Physician History of Present Illness: no complaints - Current Medication List Current Medications: Active Medications Calcitriol (Rocaltrol -) 0.5 mcg PO DAILY [facility] Last Admin: 04/17/17 11:16 Dose: 0.5 mcg Calcium Acetate (Phoslo -) 667 mg PO TIDCM [facility] Last Admin: 04/17/17 12:43 Dose: 667 mg Calcium Carbonate/Cholecalciferol (Os-Justin 500+D -) 2 tab PO DAILY [facility] Last Admin: 04/17/17 11:16 Dose: 2 tab Carvedilol (Coreg -) 25 mg PO BID [facility] Last Admin: 04/17/17 11:16 Dose: 25 mg Ferrous Sulfate (Feosol -) 325 mg PO BIDWM [facility] Last Admin: 04/17/17 08:35 Dose: 325 mg Hydralazine HCl (Apresoline -) 50 mg PO TID [facility] Last Admin: 04/17/17 15:18 Dose: 50 mg Nifedipine (Procardia Xl -) 90 mg PO DAILY [facility] Last Admin: 04/17/17 11:16 Dose: 90 mg Valsartan (Diovan -) 160 mg PO BID [facility] Last Admin: 04/17/17 11:16 Dose: 160 mg - Objective Vital Signs: Vital Signs Temperature 98.6 F 04/17/17 14:50 Pulse Rate 74 04/17/17 14:50 Respiratory Rate 18 04/17/17 14:50 Blood Pressure 130/78 04/17/17 14:50 O2 Sat by Pulse Oximetry (%) 98 04/17/17 11:35 Constitutional: Yes: No Distress HENT: Yes: Atraumatic Neck: Yes: Supple Cardiovascular: Yes: Regular Rate and Rhythm Respiratory: Yes: CTA Bilaterally Gastrointestinal: Yes: Normal Bowel Sounds Extremities: Yes: WNL Neurological: Yes: Alert, Oriented Labs: CBC, BMP 04/15/17 08:50 04/15/17 08:50 INR, PTT INR 1.07 (0.82-1.09) 03/24/17 20:30 Problem List - Problems (1) Acute on chronic kidney failure Assessment/Plan: ON HD renal on board Code(s): N17.9 - ACUTE KIDNEY FAILURE, UNSPECIFIED N18.9 - CHRONIC KIDNEY DISEASE, UNSPECIFIED (2) ESRD (end stage renal disease) Assessment/Plan: on hd Code(s): N18.6 - END STAGE RENAL DISEASE (3) Hypertension Assessment/Plan: ON MEDS STABLE Code(s): I10 - ESSENTIAL (PRIMARY) HYPERTENSION Qualifiers: Hypertension type: essential hypertension Qualified Code(s): I10 - Essential (primary) hypertension Assessment/Plan pt awaiting insurance...dc planning CM NOTES REVIEWED
[2017-04-18] MEDS: hydrALAZINE HCL 25 MG TABLET (FP) PO SCH ×3 (05:34→21:29)
[2017-04-18] MEDS: FERROUS SO4 325 MG TABLET (FP) PO SCH ×2 (08:17→17:32)
[2017-04-18] MEDS: CALCIUM ACETATE 667 MG CAPSULE (FP) PO SCH ×3 (08:18→17:32)
[2017-04-18] MEDS ORDERED: PT OWN MED DRAWER 7, Y5N ONE (09:49)
[2017-04-18] MEDS: NIFEdipine E.R. 90 MG TABLET (FP) PO SCH (09:53)
[2017-04-18] MEDS: CALCITRIOL 0.25 MCG CAPSULE (FP) PO SCH (09:54)
[2017-04-18] MEDS: CARVEDILOL 25 MG TABLET (FP) PO SCH ×2 (09:54→21:29)
[2017-04-18] MEDS: VALSARTAN 160 MG TABLET (UD) PO SCH ×2 (09:54→21:29)
[2017-04-18] MEDS: CALCIUM 500MG/VIT-D 200 UNITS COMBO TABLET (FP) PO SCH (09:54)
--- NOTE | 2017-04-18 14:29 | PN ---
Progress Note, Physician History of Present Illness: No chest pain or dyspnea. - Current Medication List Current Medications: Active Medications Calcitriol (Rocaltrol -) 0.5 mcg PO DAILY [facility] Last Admin: 04/18/17 09:54 Dose: 0.5 mcg Calcium Acetate (Phoslo -) 667 mg PO TIDCM [facility] Last Admin: 04/18/17 13:42 Dose: 667 mg Calcium Carbonate/Cholecalciferol (Os-Justin 500+D -) 2 tab PO DAILY [facility] Last Admin: 04/18/17 09:54 Dose: 2 tab Carvedilol (Coreg -) 25 mg PO BID [facility] Last Admin: 04/18/17 09:54 Dose: 25 mg Ferrous Sulfate (Feosol -) 325 mg PO BIDWM [facility] Last Admin: 04/18/17 08:17 Dose: 325 mg Hydralazine HCl (Apresoline -) 50 mg PO TID [facility] Last Admin: 04/18/17 13:42 Dose: 50 mg Nifedipine (Procardia Xl -) 90 mg PO DAILY [facility] Last Admin: 04/18/17 09:53 Dose: 90 mg Valsartan (Diovan -) 160 mg PO BID [facility] Last Admin: 04/18/17 09:54 Dose: 160 mg - Objective Vital Signs: Vital Signs Temperature 98.4 F 04/18/17 06:24 Pulse Rate 77 04/18/17 06:24 Respiratory Rate 20 04/18/17 06:24 Blood Pressure 164/92 04/18/17 06:24 O2 Sat by Pulse Oximetry (%) 98 04/17/17 21:00 Constitutional: Yes: No Distress, Calm Neck: Yes: Supple Cardiovascular: Yes: Regular Rate and Rhythm Respiratory: Yes: Regular, CTA Bilaterally Gastrointestinal: Yes: Normal Bowel Sounds, Soft Edema: No Labs: CBC, BMP 04/15/17 08:50 04/15/17 08:50 INR, PTT INR 1.07 (0.82-1.09) 03/24/17 20:30 Problem List - Problems (1) Acute on chronic kidney failure Code(s): N17.9 - ACUTE KIDNEY FAILURE, UNSPECIFIED N18.9 - CHRONIC KIDNEY DISEASE, UNSPECIFIED (2) ESRD (end stage renal disease) Code(s): N18.6 - END STAGE RENAL DISEASE (3) Hypertensive cardiomyopathy Code(s): I11.9 - HYPERTENSIVE HEART DISEASE WITHOUT HEART FAILURE I42.9 - CARDIOMYOPATHY, UNSPECIFIED Qualifiers: Heart failure presence: without heart failure Qualified Code(s): I11.9 - Hypertensive heart disease without heart failure; I43 - Cardiomyopathy in diseases classified elsewhere (4) Diastolic dysfunction Code(s): I51.9 - HEART DISEASE, UNSPECIFIED (5) Hypocalcemia Code(s): E83.51 - HYPOCALCEMIA (6) Hyperparathyroidism due to renal insufficiency Code(s): N25.81 - SECONDARY HYPERPARATHYROIDISM OF RENAL ORIGIN Assessment/Plan 03/25/2017 Echo: Normal LV size and fxn, mod cLVH, mild LAE, mild TR, RVSP 30-40 mmHg, mild AR, Tr-mild NM 1. ESRD->HD 2. LV diastolic dysfunction with class I-II NYHA classification LV failure, compensated 3. CAD angina pectoris abnormal EKG with evidence of demand ischemia 4. HTN/HCVD, BP control improved 5. Anemia 6. Hypocalcemia improving 7. Hyperparathyroidism due to renal disease PLAN: 1. Continue Coreg 25 mg bid, Procardia XL 90 qd, Diovan 160 bid and hydralazine 50 tid 2. HD as per renal service, outpatient HD arrangement pending insurance coverage
--- NOTE | 2017-04-18 15:27 | PN ---
Progress Note, Physician History of Present Illness: Pt seen and examined, he has no complaints. - Current Medication List Current Medications: Active Medications Calcitriol (Rocaltrol -) 0.5 mcg PO DAILY [facility] Last Admin: 04/18/17 09:54 Dose: 0.5 mcg Calcium Acetate (Phoslo -) 667 mg PO TIDCM [facility] Last Admin: 04/18/17 13:42 Dose: 667 mg Calcium Carbonate/Cholecalciferol (Os-Justin 500+D -) 2 tab PO DAILY [facility] Last Admin: 04/18/17 09:54 Dose: 2 tab Carvedilol (Coreg -) 25 mg PO BID [facility] Last Admin: 04/18/17 09:54 Dose: 25 mg Ferrous Sulfate (Feosol -) 325 mg PO BIDWM [facility] Last Admin: 04/18/17 08:17 Dose: 325 mg Hydralazine HCl (Apresoline -) 50 mg PO TID [facility] Last Admin: 04/18/17 13:42 Dose: 50 mg Nifedipine (Procardia Xl -) 90 mg PO DAILY [facility] Last Admin: 04/18/17 09:53 Dose: 90 mg Valsartan (Diovan -) 160 mg PO BID [facility] Last Admin: 04/18/17 09:54 Dose: 160 mg - Objective Vital Signs: Vital Signs Temperature 98.4 F 04/18/17 06:24 Pulse Rate 77 04/18/17 06:24 Respiratory Rate 20 04/18/17 06:24 Blood Pressure 164/92 04/18/17 06:24 O2 Sat by Pulse Oximetry (%) 98 04/17/17 21:00 Constitutional: Yes: Calm Eyes: Yes: Conjunctiva Clear HENT: Yes: Atraumatic Neck: Yes: Supple Cardiovascular: Yes: S1, S2 Respiratory: Yes: CTA Bilaterally Gastrointestinal: Yes: Normal Bowel Sounds, Soft Musculoskeletal: Yes: WNL Extremities: Yes: WNL Edema: No Neurological: Yes: Oriented Psychiatric: Yes: Oriented Labs: CBC, BMP 04/15/17 08:50 04/15/17 08:50 INR, PTT INR 1.07 (0.82-1.09) 03/24/17 20:30 Problem List - Problems (1) ESRD (end stage renal disease) Code(s): N18.6 - END STAGE RENAL DISEASE (2) Hypertension Code(s): I10 - ESSENTIAL (PRIMARY) HYPERTENSION Qualifiers: Hypertension type: essential hypertension Qualified Code(s): I10 - Essential (primary) hypertension (3) Hyperparathyroidism due to renal insufficiency Code(s): N25.81 - SECONDARY HYPERPARATHYROIDISM OF RENAL ORIGIN Assessment/Plan Current Medications Generic Name Dose Route Start Last Admin Trade Name Freq PRN Reason Stop Dose Admin Calcitriol 0.5 mcg 04/06/17 11:42 04/18/17 09:54 Rocaltrol - PO 0.5 mcg DAILY [facility] Administration Calcium Acetate 667 mg 03/25/17 17:30 04/18/17 13:42 Phoslo - PO 667 mg TIDCM [facility] Administration Calcium Carbonate/Cholecalciferol 2 tab 03/25/17 15:00 04/18/17 09:54 Os-Justin 500+D - PO 2 tab DAILY [facility] Administration Carvedilol 25 mg 03/25/17 10:00 04/18/17 09:54 Coreg - PO 25 mg BID [facility] Administration Ferrous Sulfate 325 mg 03/28/17 17:30 04/18/17 08:17 Feosol - PO 325 mg BIDWM [facility] Administration Hydralazine HCl 50 mg 04/06/17 14:00 04/18/17 13:42 Apresoline - PO 50 mg TID [facility] Administration Nifedipine 90 mg 04/05/17 10:00 04/18/17 09:53 Procardia Xl - PO 90 mg DAILY [facility] Administration Valsartan 160 mg 03/27/17 22:00 04/18/17 09:54 Diovan - PO 160 mg BID [facility] Administration Impression 1. ESRD 2. HTN 3. hypocalcemia improving 4. anemia 5. hyperparathyroidism due to renal disease Plan - HD in am - orders written - cont current meds - cont iron supplements - pending placement Dr Ramos
--- NOTE | 2017-04-18 16:36 | PN ---
Progress Note, Physician History of Present Illness: no complaints - Current Medication List Current Medications: Active Medications Calcitriol (Rocaltrol -) 0.5 mcg PO DAILY [facility] Last Admin: 04/18/17 09:54 Dose: 0.5 mcg Calcium Acetate (Phoslo -) 667 mg PO TIDCM [facility] Last Admin: 04/18/17 13:42 Dose: 667 mg Calcium Carbonate/Cholecalciferol (Os-Justin 500+D -) 2 tab PO DAILY [facility] Last Admin: 04/18/17 09:54 Dose: 2 tab Carvedilol (Coreg -) 25 mg PO BID [facility] Last Admin: 04/18/17 09:54 Dose: 25 mg Ferrous Sulfate (Feosol -) 325 mg PO BIDWM [facility] Last Admin: 04/18/17 08:17 Dose: 325 mg Hydralazine HCl (Apresoline -) 50 mg PO TID [facility] Last Admin: 04/18/17 13:42 Dose: 50 mg Nifedipine (Procardia Xl -) 90 mg PO DAILY [facility] Last Admin: 04/18/17 09:53 Dose: 90 mg Valsartan (Diovan -) 160 mg PO BID [facility] Last Admin: 04/18/17 09:54 Dose: 160 mg - Objective Vital Signs: Vital Signs Temperature 97.8 F 04/18/17 10:00 Pulse Rate 74 04/18/17 10:00 Respiratory Rate 18 04/18/17 10:00 Blood Pressure 136/77 04/18/17 10:00 O2 Sat by Pulse Oximetry (%) 99 04/18/17 09:00 Constitutional: Yes: No Distress HENT: Yes: Atraumatic Neck: Yes: Supple Cardiovascular: Yes: Regular Rate and Rhythm Respiratory: Yes: CTA Bilaterally Gastrointestinal: Yes: Normal Bowel Sounds Extremities: Yes: WNL Neurological: Yes: Alert, Oriented Labs: CBC, BMP 04/15/17 08:50 04/15/17 08:50 INR, PTT INR 1.07 (0.82-1.09) 03/24/17 20:30 Problem List - Problems (1) Acute on chronic kidney failure Assessment/Plan: ON HD renal on board Code(s): N17.9 - ACUTE KIDNEY FAILURE, UNSPECIFIED N18.9 - CHRONIC KIDNEY DISEASE, UNSPECIFIED (2) ESRD (end stage renal disease) Assessment/Plan: on hd Code(s): N18.6 - END STAGE RENAL DISEASE (3) Hypertension Assessment/Plan: ON MEDS STABLE Code(s): I10 - ESSENTIAL (PRIMARY) HYPERTENSION Qualifiers: Hypertension type: essential hypertension Qualified Code(s): I10 - Essential (primary) hypertension Assessment/Plan pt awaiting insurance...dc planning CM NOTES REVIEWED
[2017-04-19] MEDS: hydrALAZINE HCL 25 MG TABLET (FP) PO SCH ×3 (06:06→20:59)
[2017-04-19] MEDS: CALCIUM ACETATE 667 MG CAPSULE (FP) PO SCH ×3 (08:38→17:26)
[2017-04-19] MEDS: FERROUS SO4 325 MG TABLET (FP) PO SCH ×2 (08:38→17:26)
[2017-04-19] MEDS ORDERED: PT OWN MED DRAWER 7, Y5N ONE (09:35)
[2017-04-19] MEDS: CALCITRIOL 0.25 MCG CAPSULE (FP) PO SCH (09:36)
[2017-04-19] MEDS: NIFEdipine E.R. 90 MG TABLET (FP) PO SCH (09:36)
[2017-04-19] MEDS: CALCIUM 500MG/VIT-D 200 UNITS COMBO TABLET (FP) PO SCH (09:36)
[2017-04-19] MEDS: CARVEDILOL 25 MG TABLET (FP) PO SCH ×2 (09:36→20:59)
[2017-04-19] MEDS: VALSARTAN 160 MG TABLET (UD) PO SCH ×2 (09:36→20:59)
--- NOTE | 2017-04-19 12:08 | PN ---
Progress Note, Physician History of Present Illness: no complaints - Current Medication List Current Medications: Active Medications Calcitriol (Rocaltrol -) 0.5 mcg PO DAILY [facility] Last Admin: 04/19/17 09:36 Dose: 0.5 mcg Calcium Acetate (Phoslo -) 667 mg PO TIDCM [facility] Last Admin: 04/19/17 08:38 Dose: 667 mg Calcium Carbonate/Cholecalciferol (Os-Justin 500+D -) 2 tab PO DAILY [facility] Last Admin: 04/19/17 09:36 Dose: 2 tab Carvedilol (Coreg -) 25 mg PO BID [facility] Last Admin: 04/19/17 09:36 Dose: 25 mg Ferrous Sulfate (Feosol -) 325 mg PO BIDWM [facility] Last Admin: 04/19/17 08:38 Dose: 325 mg Hydralazine HCl (Apresoline -) 50 mg PO TID [facility] Last Admin: 04/19/17 06:06 Dose: Not Given Nifedipine (Procardia Xl -) 90 mg PO DAILY [facility] Last Admin: 04/19/17 09:36 Dose: 90 mg Valsartan (Diovan -) 160 mg PO BID [facility] Last Admin: 04/19/17 09:36 Dose: 160 mg - Objective Vital Signs: Vital Signs Temperature 97.5 F L 04/19/17 06:00 Pulse Rate 68 04/19/17 06:00 Respiratory Rate 18 04/19/17 06:00 Blood Pressure 145/90 04/19/17 06:00 O2 Sat by Pulse Oximetry (%) 99 04/18/17 21:00 Constitutional: Yes: No Distress HENT: Yes: Atraumatic Neck: Yes: Supple Cardiovascular: Yes: Regular Rate and Rhythm Respiratory: Yes: CTA Bilaterally Gastrointestinal: Yes: Normal Bowel Sounds Extremities: Yes: WNL Neurological: Yes: Alert, Oriented Labs: CBC, BMP 04/15/17 08:50 04/15/17 08:50 INR, PTT INR 1.07 (0.82-1.09) 03/24/17 20:30 Problem List - Problems (1) Acute on chronic kidney failure Assessment/Plan: ON HD renal on board Code(s): N17.9 - ACUTE KIDNEY FAILURE, UNSPECIFIED N18.9 - CHRONIC KIDNEY DISEASE, UNSPECIFIED (2) ESRD (end stage renal disease) Assessment/Plan: on hd Code(s): N18.6 - END STAGE RENAL DISEASE (3) Hypertension Assessment/Plan: ON MEDS STABLE Code(s): I10 - ESSENTIAL (PRIMARY) HYPERTENSION Qualifiers: Hypertension type: essential hypertension Qualified Code(s): I10 - Essential (primary) hypertension Assessment/Plan pt awaiting insurance...dc planning CM NOTES REVIEWED
[2017-04-19 14:08] LABS: CALCIUM 8.5 mg/dL (8.5-10.1); COCKROFT - GAULT 8.21
[2017-04-19 14:28] LABS: CREATININE 10.5 mg/dL (0.7-1.3)
--- NOTE | 2017-04-19 17:16 | PN ---
Progress Note, Physician History of Present Illness: Pt seen and examined on HD. He is awake and alert. - Current Medication List Current Medications: Active Medications Calcitriol (Rocaltrol -) 0.5 mcg PO DAILY [facility] Last Admin: 04/19/17 09:36 Dose: 0.5 mcg Calcium Acetate (Phoslo -) 667 mg PO TIDCM [facility] Last Admin: 04/19/17 12:08 Dose: 667 mg Calcium Carbonate/Cholecalciferol (Os-Justin 500+D -) 2 tab PO DAILY [facility] Last Admin: 04/19/17 09:36 Dose: 2 tab Carvedilol (Coreg -) 25 mg PO BID [facility] Last Admin: 04/19/17 09:36 Dose: 25 mg Ferrous Sulfate (Feosol -) 325 mg PO BIDWM [facility] Last Admin: 04/19/17 08:38 Dose: 325 mg Hydralazine HCl (Apresoline -) 50 mg PO TID [facility] Last Admin: 04/19/17 14:16 Dose: Not Given Nifedipine (Procardia Xl -) 90 mg PO DAILY [facility] Last Admin: 04/19/17 09:36 Dose: 90 mg Valsartan (Diovan -) 160 mg PO BID [facility] Last Admin: 04/19/17 09:36 Dose: 160 mg - Objective Vital Signs: Vital Signs Temperature 97.9 F 04/19/17 16:25 Pulse Rate 62 04/19/17 16:40 Respiratory Rate 18 04/19/17 16:40 Blood Pressure 128/95 04/19/17 16:40 O2 Sat by Pulse Oximetry (%) 100 04/19/17 09:00 Constitutional: Yes: Calm Eyes: Yes: Conjunctiva Clear HENT: Yes: Atraumatic Neck: Yes: Supple Cardiovascular: Yes: S1, S2 Respiratory: Yes: CTA Bilaterally Gastrointestinal: Yes: Soft Musculoskeletal: Yes: WNL Extremities: Yes: WNL Edema: No Neurological: Yes: Oriented Psychiatric: Yes: Oriented Labs: CBC, BMP 04/15/17 08:50 04/19/17 12:30 INR, PTT INR 1.07 (0.82-1.09) 03/24/17 20:30 Problem List - Problems (1) ESRD (end stage renal disease) Code(s): N18.6 - END STAGE RENAL DISEASE (2) Hypertension Code(s): I10 - ESSENTIAL (PRIMARY) HYPERTENSION Qualifiers: Hypertension type: essential hypertension Qualified Code(s): I10 - Essential (primary) hypertension (3) Hyperparathyroidism due to renal insufficiency Code(s): N25.81 - SECONDARY HYPERPARATHYROIDISM OF RENAL ORIGIN Assessment/Plan Current Medications Generic Name Dose Route Start Last Admin Trade Name Freq PRN Reason Stop Dose Admin Calcitriol 0.5 mcg 04/06/17 11:42 04/19/17 09:36 Rocaltrol - PO 0.5 mcg DAILY [facility] Administration Calcium Acetate 667 mg 03/25/17 17:30 04/19/17 12:08 Phoslo - PO 667 mg TIDCM [facility] Administration Calcium Carbonate/Cholecalciferol 2 tab 03/25/17 15:00 04/19/17 09:36 Os-Justin 500+D - PO 2 tab DAILY [facility] Administration Carvedilol 25 mg 03/25/17 10:00 04/19/17 09:36 Coreg - PO 25 mg BID [facility] Administration Ferrous Sulfate 325 mg 03/28/17 17:30 04/19/17 08:38 Feosol - PO 325 mg BIDWM [facility] Administration Hydralazine HCl 50 mg 04/06/17 14:00 04/19/17 14:16 Apresoline - PO Not Given TID [facility] Nifedipine 90 mg 04/05/17 10:00 04/19/17 09:36 Procardia Xl - PO 90 mg DAILY [facility] Administration Valsartan 160 mg 03/27/17 22:00 04/19/17 09:36 Diovan - PO 160 mg BID [facility] Administration Impression 1. ESRD 2. HTN 3. hypocalcemia improving 4. anemia 5. hyperparathyroidism due to renal disease Plan - HD today - cont current meds - cont iron supplements - pending placement Dr Ramos
[2017-04-20] MEDS: hydrALAZINE HCL 25 MG TABLET (FP) PO SCH ×3 (06:13→21:21)
[2017-04-20] MEDS: CALCIUM ACETATE 667 MG CAPSULE (FP) PO SCH ×3 (08:37→16:44)
[2017-04-20] MEDS: FERROUS SO4 325 MG TABLET (FP) PO SCH ×2 (08:38→16:44)
[2017-04-20] MEDS: CARVEDILOL 25 MG TABLET (FP) PO SCH ×2 (09:37→21:22)
[2017-04-20] MEDS: CALCIUM 500MG/VIT-D 200 UNITS COMBO TABLET (FP) PO SCH (09:37)
[2017-04-20] MEDS: VALSARTAN 160 MG TABLET (UD) PO SCH ×2 (09:38→21:22)
[2017-04-20] MEDS: CALCITRIOL 0.25 MCG CAPSULE (FP) PO SCH (09:38)
[2017-04-20] MEDS: NIFEdipine E.R. 90 MG TABLET (FP) PO SCH (09:42)
[2017-04-20] MEDS ORDERED: PT OWN MED DRAWER 7, Y5N ONE (09:42)
--- NOTE | 2017-04-20 15:49 | PN ---
Progress Note, Physician History of Present Illness: Pt has no complaints. - Current Medication List Current Medications: Active Medications Calcitriol (Rocaltrol -) 0.5 mcg PO DAILY [facility] Last Admin: 04/20/17 09:38 Dose: 0.5 mcg Calcium Acetate (Phoslo -) 667 mg PO TIDCM [facility] Last Admin: 04/20/17 12:57 Dose: 667 mg Calcium Carbonate/Cholecalciferol (Os-Justin 500+D -) 2 tab PO DAILY [facility] Last Admin: 04/20/17 09:37 Dose: 2 tab Carvedilol (Coreg -) 25 mg PO BID [facility] Last Admin: 04/20/17 09:37 Dose: 25 mg Ferrous Sulfate (Feosol -) 325 mg PO BIDWM [facility] Last Admin: 04/20/17 08:38 Dose: 325 mg Hydralazine HCl (Apresoline -) 50 mg PO TID [facility] Last Admin: 04/20/17 13:01 Dose: 50 mg Nifedipine (Procardia Xl -) 90 mg PO DAILY [facility] Last Admin: 04/20/17 09:42 Dose: 90 mg Valsartan (Diovan -) 160 mg PO BID [facility] Last Admin: 04/20/17 09:38 Dose: 160 mg - Objective Vital Signs: Vital Signs Temperature 98.5 F 04/20/17 14:13 Pulse Rate 75 04/20/17 14:13 Respiratory Rate 16 04/20/17 14:13 Blood Pressure 124/81 04/20/17 14:13 O2 Sat by Pulse Oximetry (%) 100 04/20/17 09:00 Constitutional: Yes: Calm Eyes: Yes: Conjunctiva Clear HENT: Yes: Atraumatic Neck: Yes: Supple Cardiovascular: Yes: S1, S2 Respiratory: Yes: CTA Bilaterally Gastrointestinal: Yes: WNL Genitourinary: Yes: WNL Musculoskeletal: Yes: WNL Edema: No Neurological: Yes: Oriented Psychiatric: Yes: Oriented Labs: CBC, BMP 04/15/17 08:50 04/19/17 12:30 INR, PTT INR 1.07 (0.82-1.09) 03/24/17 20:30 Problem List - Problems (1) ESRD (end stage renal disease) Code(s): N18.6 - END STAGE RENAL DISEASE (2) Hypertension Code(s): I10 - ESSENTIAL (PRIMARY) HYPERTENSION Qualifiers: Hypertension type: essential hypertension Qualified Code(s): I10 - Essential (primary) hypertension (3) Hyperparathyroidism due to renal insufficiency Code(s): N25.81 - SECONDARY HYPERPARATHYROIDISM OF RENAL ORIGIN Assessment/Plan Current Medications Generic Name Dose Route Start Last Admin Trade Name Jenelle PRN Reason Stop Dose Admin Calcitriol 0.5 mcg 04/06/17 11:42 04/20/17 09:38 Rocaltrol - PO 0.5 mcg DAILY [facility] Administration Calcium Acetate 667 mg 03/25/17 17:30 04/20/17 12:57 Phoslo - PO 667 mg TIDCM [facility] Administration Calcium Carbonate/Cholecalciferol 2 tab 03/25/17 15:00 04/20/17 09:37 Os-Justin 500+D - PO 2 tab DAILY [facility] Administration Carvedilol 25 mg 03/25/17 10:00 04/20/17 09:37 Coreg - PO 25 mg BID [facility] Administration Ferrous Sulfate 325 mg 03/28/17 17:30 04/20/17 08:38 Feosol - PO 325 mg BIDWM [facility] Administration Hydralazine HCl 50 mg 04/06/17 14:00 04/20/17 13:01 Apresoline - PO 50 mg TID [facility] Administration Nifedipine 90 mg 04/05/17 10:00 04/20/17 09:42 Procardia Xl - PO 90 mg DAILY [facility] Administration Valsartan 160 mg 03/27/17 22:00 04/20/17 09:38 Diovan - PO 160 mg BID [facility] Administration Impression 1. ESRD 2. HTN 3. hypocalcemia improving 4. anemia 5. hyperparathyroidism due to renal disease Plan - next HD friday - cont current meds - cont iron supplements - BP is stable - pending placement Dr Ramos
--- NOTE | 2017-04-20 22:01 | PN ---
Progress Note, Physician History of Present Illness: No new complaints - Current Medication List Current Medications: Active Medications Calcitriol (Rocaltrol -) 0.5 mcg PO DAILY [facility] Last Admin: 04/20/17 09:38 Dose: 0.5 mcg Calcium Acetate (Phoslo -) 667 mg PO TIDCM [facility] Last Admin: 04/20/17 16:44 Dose: 667 mg Calcium Carbonate/Cholecalciferol (Os-Justin 500+D -) 2 tab PO DAILY [facility] Last Admin: 04/20/17 09:37 Dose: 2 tab Carvedilol (Coreg -) 25 mg PO BID [facility] Last Admin: 04/20/17 21:22 Dose: 25 mg Ferrous Sulfate (Feosol -) 325 mg PO BIDWM [facility] Last Admin: 04/20/17 16:44 Dose: 325 mg Hydralazine HCl (Apresoline -) 50 mg PO TID [facility] Last Admin: 04/20/17 21:21 Dose: 50 mg Nifedipine (Procardia Xl -) 90 mg PO DAILY [facility] Last Admin: 04/20/17 09:42 Dose: 90 mg Valsartan (Diovan -) 160 mg PO BID [facility] Last Admin: 04/20/17 21:22 Dose: 160 mg - Objective Vital Signs: Vital Signs Temperature 97.7 F 04/20/17 17:25 Pulse Rate 67 04/20/17 17:25 Respiratory Rate 18 04/20/17 17:25 Blood Pressure 141/97 04/20/17 17:25 O2 Sat by Pulse Oximetry (%) 100 04/20/17 09:00 Constitutional: Yes: Well Nourished Eyes: Yes: WNL HENT: Yes: Pharyngeal Erythema Neck: Yes: WNL, Supple Respiratory: Yes: WNL, Regular, CTA Bilaterally Gastrointestinal: Yes: WNL, Normal Bowel Sounds, Soft Labs: CBC, BMP 04/15/17 08:50 04/19/17 12:30 INR, PTT INR 1.07 (0.82-1.09) 03/24/17 20:30 Problem List - Problems (1) Anemia Code(s): D64.9 - ANEMIA, UNSPECIFIED (2) ESRD (end stage renal disease) Code(s): N18.6 - END STAGE RENAL DISEASE (3) Hypertension Code(s): I10 - ESSENTIAL (PRIMARY) HYPERTENSION Qualifiers: Hypertension type: essential hypertension Qualified Code(s): I10 - Essential (primary) hypertension (4) Hypocalcemia Code(s): E83.51 - HYPOCALCEMIA
[2017-04-21] MEDS: hydrALAZINE HCL 25 MG TABLET (FP) PO SCH ×3 (06:15→22:21)
[2017-04-21] MEDS ORDERED: PT OWN MED DRAWER 7, Y5N ONE (09:17)
[2017-04-21] MEDS: FERROUS SO4 325 MG TABLET (FP) PO SCH ×2 (09:18→17:52)
[2017-04-21] MEDS: CALCITRIOL 0.25 MCG CAPSULE (FP) PO SCH (09:18)
[2017-04-21] MEDS: CALCIUM 500MG/VIT-D 200 UNITS COMBO TABLET (FP) PO SCH (09:18)
[2017-04-21] MEDS: VALSARTAN 160 MG TABLET (UD) PO SCH ×2 (09:19→22:22)
[2017-04-21] MEDS: NIFEdipine E.R. 90 MG TABLET (FP) PO SCH (09:19)
[2017-04-21] MEDS: CALCIUM ACETATE 667 MG CAPSULE (FP) PO SCH ×3 (09:19→17:52)
[2017-04-21] MEDS: CARVEDILOL 25 MG TABLET (FP) PO SCH ×2 (09:19→22:22)
--- NOTE | 2017-04-21 12:02 | PN ---
Progress Note, Physician History of Present Illness: No chest pain or dyspnea. - Current Medication List Current Medications: Active Medications Calcitriol (Rocaltrol -) 0.5 mcg PO DAILY [facility] Last Admin: 04/21/17 09:18 Dose: 0.5 mcg Calcium Acetate (Phoslo -) 667 mg PO TIDCM [facility] Last Admin: 04/21/17 09:19 Dose: 667 mg Calcium Carbonate/Cholecalciferol (Os-Justin 500+D -) 2 tab PO DAILY [facility] Last Admin: 04/21/17 09:18 Dose: 2 tab Carvedilol (Coreg -) 25 mg PO BID [facility] Last Admin: 04/21/17 09:19 Dose: 25 mg Ferrous Sulfate (Feosol -) 325 mg PO BIDWM [facility] Last Admin: 04/21/17 09:18 Dose: 325 mg Hydralazine HCl (Apresoline -) 50 mg PO TID [facility] Last Admin: 04/21/17 06:15 Dose: 50 mg Nifedipine (Procardia Xl -) 90 mg PO DAILY [facility] Last Admin: 04/21/17 09:19 Dose: 90 mg Valsartan (Diovan -) 160 mg PO BID [facility] Last Admin: 04/21/17 09:19 Dose: 160 mg - Objective Vital Signs: Vital Signs Temperature 98.3 F 04/21/17 10:00 Pulse Rate 75 04/21/17 10:00 Respiratory Rate 18 04/21/17 10:00 Blood Pressure 164/92 04/21/17 10:00 O2 Sat by Pulse Oximetry (%) 100 04/21/17 09:00 Constitutional: Yes: No Distress, Calm Neck: Yes: Supple Cardiovascular: Yes: Regular Rate and Rhythm Respiratory: Yes: Regular, CTA Bilaterally Gastrointestinal: Yes: Normal Bowel Sounds, Soft Edema: No Labs: CBC, BMP 04/15/17 08:50 04/19/17 12:30 INR, PTT INR 1.07 (0.82-1.09) 03/24/17 20:30 Problem List - Problems (1) Acute on chronic kidney failure Code(s): N17.9 - ACUTE KIDNEY FAILURE, UNSPECIFIED N18.9 - CHRONIC KIDNEY DISEASE, UNSPECIFIED (2) ESRD (end stage renal disease) Code(s): N18.6 - END STAGE RENAL DISEASE (3) Hypertensive cardiomyopathy Code(s): I11.9 - HYPERTENSIVE HEART DISEASE WITHOUT HEART FAILURE I42.9 - CARDIOMYOPATHY, UNSPECIFIED Qualifiers: Heart failure presence: without heart failure Qualified Code(s): I11.9 - Hypertensive heart disease without heart failure; I43 - Cardiomyopathy in diseases classified elsewhere (4) Diastolic dysfunction Code(s): I51.9 - HEART DISEASE, UNSPECIFIED (5) Hypocalcemia Code(s): E83.51 - HYPOCALCEMIA (6) Hyperparathyroidism due to renal insufficiency Code(s): N25.81 - SECONDARY HYPERPARATHYROIDISM OF RENAL ORIGIN Assessment/Plan 03/25/2017 Echo: Normal LV size and fxn, mod cLVH, mild LAE, mild TR, RVSP 30-40 mmHg, mild AR, Tr-mild MA 1. ESRD->HD 2. LV diastolic dysfunction with class I-II NYHA classification LV failure, compensated 3. CAD angina pectoris abnormal EKG with evidence of demand ischemia 4. HTN/HCVD, BP control improved 5. Anemia 6. Hypocalcemia improving 7. Hyperparathyroidism due to renal disease PLAN: 1. Continue Coreg 25 mg bid, Procardia XL 90 qd, Diovan 160 bid and hydralazine 50 tid 2. HD as per renal service, outpatient HD arrangement pending insurance coverage
--- NOTE | 2017-04-21 14:50 | PN ---
Progress Note, Physician History of Present Illness: Pt seen and examined at bedside. He is awake and alert. - Current Medication List Current Medications: Active Medications Calcitriol (Rocaltrol -) 0.5 mcg PO DAILY [facility] Last Admin: 04/21/17 09:18 Dose: 0.5 mcg Calcium Acetate (Phoslo -) 667 mg PO TIDCM [facility] Last Admin: 04/21/17 12:49 Dose: 667 mg Calcium Carbonate/Cholecalciferol (Os-Justin 500+D -) 2 tab PO DAILY [facility] Last Admin: 04/21/17 09:18 Dose: 2 tab Carvedilol (Coreg -) 25 mg PO BID [facility] Last Admin: 04/21/17 09:19 Dose: 25 mg Ferrous Sulfate (Feosol -) 325 mg PO BIDWM [facility] Last Admin: 04/21/17 09:18 Dose: 325 mg Hydralazine HCl (Apresoline -) 50 mg PO TID [facility] Last Admin: 04/21/17 13:21 Dose: 50 mg Nifedipine (Procardia Xl -) 90 mg PO DAILY [facility] Last Admin: 04/21/17 09:19 Dose: 90 mg Valsartan (Diovan -) 160 mg PO BID [facility] Last Admin: 04/21/17 09:19 Dose: 160 mg - Objective Vital Signs: Vital Signs Temperature 98.3 F 04/21/17 14:43 Pulse Rate 81 04/21/17 14:43 Respiratory Rate 18 04/21/17 14:43 Blood Pressure 130/91 04/21/17 14:43 O2 Sat by Pulse Oximetry (%) 100 04/21/17 09:00 Constitutional: Yes: Calm Eyes: Yes: Conjunctiva Clear HENT: Yes: Atraumatic Neck: Yes: Supple Cardiovascular: Yes: S1, S2 Respiratory: Yes: CTA Bilaterally Gastrointestinal: Yes: Normal Bowel Sounds, Soft Genitourinary: Yes: WNL Musculoskeletal: Yes: WNL Edema: No Neurological: Yes: Oriented Psychiatric: Yes: Oriented Labs: CBC, BMP 04/15/17 08:50 04/19/17 12:30 INR, PTT INR 1.07 (0.82-1.09) 03/24/17 20:30 Problem List - Problems (1) ESRD (end stage renal disease) Code(s): N18.6 - END STAGE RENAL DISEASE (2) Hypertension Code(s): I10 - ESSENTIAL (PRIMARY) HYPERTENSION Qualifiers: Hypertension type: essential hypertension Qualified Code(s): I10 - Essential (primary) hypertension (3) Hyperparathyroidism due to renal insufficiency Code(s): N25.81 - SECONDARY HYPERPARATHYROIDISM OF RENAL ORIGIN Assessment/Plan Current Medications Generic Name Dose Route Start Last Admin Trade Name Murtazaq PRN Reason Stop Dose Admin Calcitriol 0.5 mcg 04/06/17 11:42 04/21/17 09:18 Rocaltrol - PO 0.5 mcg DAILY [facility] Administration Calcium Acetate 667 mg 03/25/17 17:30 04/21/17 12:49 Phoslo - PO 667 mg TIDCM [facility] Administration Calcium Carbonate/Cholecalciferol 2 tab 03/25/17 15:00 04/21/17 09:18 Os-Justin 500+D - PO 2 tab DAILY [facility] Administration Carvedilol 25 mg 03/25/17 10:00 04/21/17 09:19 Coreg - PO 25 mg BID [facility] Administration Ferrous Sulfate 325 mg 03/28/17 17:30 04/21/17 09:18 Feosol - PO 325 mg BIDWM [facility] Administration Hydralazine HCl 50 mg 04/06/17 14:00 04/21/17 13:21 Apresoline - PO 50 mg TID [facility] Administration Nifedipine 90 mg 04/05/17 10:00 04/21/17 09:19 Procardia Xl - PO 90 mg DAILY [facility] Administration Valsartan 160 mg 03/27/17 22:00 04/21/17 09:19 Diovan - PO 160 mg BID [facility] Administration Impression 1. ESRD 2. HTN 3. hypocalcemia improving 4. anemia 5. hyperparathyroidism due to renal disease Plan - HD in am - cont current meds - cont iron supplements - BP is stable - pending placement Dr Ramos
--- NOTE | 2017-04-21 17:52 | PN ---
Progress Note, Physician History of Present Illness: no complaints - Current Medication List Current Medications: Active Medications Calcitriol (Rocaltrol -) 0.5 mcg PO DAILY [facility] Last Admin: 04/21/17 09:18 Dose: 0.5 mcg Calcium Acetate (Phoslo -) 667 mg PO TIDCM [facility] Last Admin: 04/21/17 12:49 Dose: 667 mg Calcium Carbonate/Cholecalciferol (Os-Justin 500+D -) 2 tab PO DAILY [facility] Last Admin: 04/21/17 09:18 Dose: 2 tab Carvedilol (Coreg -) 25 mg PO BID [facility] Last Admin: 04/21/17 09:19 Dose: 25 mg Ferrous Sulfate (Feosol -) 325 mg PO BIDWM [facility] Last Admin: 04/21/17 09:18 Dose: 325 mg Heparin Sodium (Porcine) (Heparin -) 1,000 unit IVPUSH ONCE ONE Stop: 04/22/17 14:52 Hydralazine HCl (Apresoline -) 50 mg PO TID [facility] Last Admin: 04/21/17 13:21 Dose: 50 mg Nifedipine (Procardia Xl -) 90 mg PO DAILY [facility] Last Admin: 04/21/17 09:19 Dose: 90 mg Valsartan (Diovan -) 160 mg PO BID [facility] Last Admin: 04/21/17 09:19 Dose: 160 mg - Objective Vital Signs: Vital Signs Temperature 99 F 04/21/17 17:15 Pulse Rate 83 04/21/17 17:15 Respiratory Rate 20 04/21/17 17:15 Blood Pressure 124/81 04/21/17 17:15 O2 Sat by Pulse Oximetry (%) 100 04/21/17 09:00 Constitutional: Yes: No Distress HENT: Yes: Atraumatic Neck: Yes: Supple Cardiovascular: Yes: Regular Rate and Rhythm Respiratory: Yes: CTA Bilaterally Gastrointestinal: Yes: Normal Bowel Sounds Extremities: Yes: WNL Neurological: Yes: Alert, Oriented Labs: CBC, BMP 04/15/17 08:50 04/19/17 12:30 INR, PTT INR 1.07 (0.82-1.09) 03/24/17 20:30 Problem List - Problems (1) Acute on chronic kidney failure Assessment/Plan: ON HD renal on board Code(s): N17.9 - ACUTE KIDNEY FAILURE, UNSPECIFIED N18.9 - CHRONIC KIDNEY DISEASE, UNSPECIFIED (2) ESRD (end stage renal disease) Assessment/Plan: on hd Code(s): N18.6 - END STAGE RENAL DISEASE (3) Hypertension Assessment/Plan: ON MEDS STABLE Code(s): I10 - ESSENTIAL (PRIMARY) HYPERTENSION Qualifiers: Hypertension type: essential hypertension Qualified Code(s): I10 - Essential (primary) hypertension Assessment/Plan pt awaiting insurance...dc planning CM NOTES REVIEWED
[2017-04-22] MEDS: hydrALAZINE HCL 25 MG TABLET (FP) PO SCH ×4 (06:00→21:46)
[2017-04-22] MEDS: FERROUS SO4 325 MG TABLET (FP) PO SCH ×2 (08:48→17:07)
[2017-04-22] MEDS: CALCIUM ACETATE 667 MG CAPSULE (FP) PO SCH ×3 (08:48→17:07)
[2017-04-22] MEDS: CALCIUM 500MG/VIT-D 200 UNITS COMBO TABLET (FP) PO SCH ×3 (08:49→12:07)
[2017-04-22] MEDS: CALCITRIOL 0.25 MCG CAPSULE (FP) PO SCH ×2 (08:49→12:07)
[2017-04-22] MEDS: VALSARTAN 160 MG TABLET (UD) PO SCH ×3 (08:49→21:46)
[2017-04-22] MEDS: CARVEDILOL 25 MG TABLET (FP) PO SCH ×3 (08:50→21:46)
[2017-04-22 10:25] LABS: MCH 26.3 pg (25.7-33.7); MCHC 32.8 g/dl (32.0-35.9); MEAN CELL VOLUME 80.2 fl (80-96); MEAN PLT VOLUME 7.3 fl (7.5-11.1); PLATELET COUNT 178 K/MM3 (134-434); RDW 17.6 % (11.9-15.9); WHITE BLOOD COUNT 4.6 K/mm3 (4.0-10.0)
[2017-04-22 11:59] LABS: ALBUMIN 3.3 g/dl (3.4-5.0); BILIRUBIN,TOTAL 0.3 mg/dL (0.2-1.0); CALCIUM 8.1 mg/dL (8.5-10.1); COCKROFT - GAULT 11.44; TOT PROT 6.6 g/dl (6.4-8.2)
[2017-04-22 12:02] LABS: CREATININE 7.7 mg/dL (0.7-1.3)
[2017-04-22] MEDS ORDERED: HEPARIN NA (PORCINE) 5,000 UNITS/ML 1ML VIAL IVPUSH ONE (12:15)
[2017-04-22] MEDS: NIFEdipine E.R. 90 MG TABLET (FP) PO SCH (14:23)
--- NOTE | 2017-04-22 15:04 | PN ---
Progress Note, Physician History of Present Illness: Pt seen and examined at bedside. He is awake and alert. He is currently getting HD. - Current Medication List Current Medications: Active Medications Calcitriol (Rocaltrol -) 0.5 mcg PO DAILY [facility] Last Admin: 04/22/17 12:07 Dose: Not Given Calcium Acetate (Phoslo -) 667 mg PO TIDCM [facility] Last Admin: 04/22/17 14:19 Dose: Not Given Calcium Carbonate/Cholecalciferol (Os-Justin 500+D -) 2 tab PO DAILY [facility] Last Admin: 04/22/17 12:07 Dose: Not Given Carvedilol (Coreg -) 25 mg PO BID [facility] Last Admin: 04/22/17 12:07 Dose: Not Given Ferrous Sulfate (Feosol -) 325 mg PO BIDWM [facility] Last Admin: 04/22/17 08:48 Dose: 325 mg Hydralazine HCl (Apresoline -) 50 mg PO TID [facility] Last Admin: 04/22/17 08:50 Dose: 50 mg Nifedipine (Procardia Xl -) 90 mg PO DAILY [facility] Last Admin: 04/22/17 14:23 Dose: 90 mg Valsartan (Diovan -) 160 mg PO BID [facility] Last Admin: 04/22/17 12:07 Dose: Not Given - Objective Vital Signs: Vital Signs Temperature 97.7 F 04/22/17 10:00 Pulse Rate 64 04/22/17 14:30 Respiratory Rate 18 04/22/17 14:30 Blood Pressure 150/99 04/22/17 14:30 O2 Sat by Pulse Oximetry (%) 100 04/21/17 21:00 Constitutional: Yes: Calm Eyes: Yes: Conjunctiva Clear HENT: Yes: Atraumatic Neck: Yes: Supple Cardiovascular: Yes: S1, S2 Respiratory: Yes: CTA Bilaterally Gastrointestinal: Yes: Normal Bowel Sounds Genitourinary: Yes: WNL Musculoskeletal: Yes: WNL Edema: No Neurological: Yes: Oriented Psychiatric: Yes: Oriented Labs: CBC, BMP 04/22/17 10:00 04/22/17 10:00 INR, PTT INR 1.07 (0.82-1.09) 03/24/17 20:30 Problem List - Problems (1) ESRD (end stage renal disease) Code(s): N18.6 - END STAGE RENAL DISEASE (2) Hypertension Code(s): I10 - ESSENTIAL (PRIMARY) HYPERTENSION Qualifiers: Hypertension type: essential hypertension Qualified Code(s): I10 - Essential (primary) hypertension (3) Hyperparathyroidism due to renal insufficiency Code(s): N25.81 - SECONDARY HYPERPARATHYROIDISM OF RENAL ORIGIN Assessment/Plan Current Medications Generic Name Dose Route Start Last Admin Trade Name Freq PRN Reason Stop Dose Admin Calcitriol 0.5 mcg 04/06/17 11:42 04/22/17 12:07 Rocaltrol - PO Not Given DAILY [facility] Calcium Acetate 667 mg 03/25/17 17:30 04/22/17 14:19 Phoslo - PO Not Given TIDCM [facility] Calcium Carbonate/Cholecalciferol 2 tab 03/25/17 15:00 04/22/17 12:07 Os-Justin 500+D - PO Not Given DAILY [facility] Carvedilol 25 mg 03/25/17 10:00 04/22/17 12:07 Coreg - PO Not Given BID [facility] Ferrous Sulfate 325 mg 03/28/17 17:30 04/22/17 08:48 Feosol - PO 325 mg BIDWM [facility] Administration Hydralazine HCl 50 mg 04/06/17 14:00 04/22/17 08:50 Apresoline - PO 50 mg TID [facility] Administration Nifedipine 90 mg 04/05/17 10:00 04/22/17 14:23 Procardia Xl - PO 90 mg DAILY [facility] Administration Valsartan 160 mg 03/27/17 22:00 04/22/17 12:07 Diovan - PO Not Given BID [facility] Impression 1. ESRD 2. HTN 3. hypocalcemia improving 4. anemia 5. hyperparathyroidism due to renal disease Plan - HD today - cont current meds - cont iron supplements - BP is stable - pending placement Dr Ramos
--- NOTE | 2017-04-22 16:32 | PN ---
Progress Note, Physician History of Present Illness: no complaints - Current Medication List Current Medications: Active Medications Calcitriol (Rocaltrol -) 0.5 mcg PO DAILY [facility] Last Admin: 04/22/17 12:07 Dose: Not Given Calcium Acetate (Phoslo -) 667 mg PO TIDCM [facility] Last Admin: 04/22/17 14:19 Dose: Not Given Calcium Carbonate/Cholecalciferol (Os-Justin 500+D -) 2 tab PO DAILY [facility] Last Admin: 04/22/17 12:07 Dose: Not Given Carvedilol (Coreg -) 25 mg PO BID [facility] Last Admin: 04/22/17 12:07 Dose: Not Given Ferrous Sulfate (Feosol -) 325 mg PO BIDWM [facility] Last Admin: 04/22/17 08:48 Dose: 325 mg Hydralazine HCl (Apresoline -) 50 mg PO TID [facility] Last Admin: 04/22/17 15:39 Dose: 50 mg Nifedipine (Procardia Xl -) 90 mg PO DAILY [facility] Last Admin: 04/22/17 14:23 Dose: 90 mg Valsartan (Diovan -) 160 mg PO BID [facility] Last Admin: 04/22/17 12:07 Dose: Not Given - Objective Vital Signs: Vital Signs Temperature 97.7 F 04/22/17 10:00 Pulse Rate 64 04/22/17 14:30 Respiratory Rate 18 04/22/17 14:30 Blood Pressure 150/99 04/22/17 14:30 O2 Sat by Pulse Oximetry (%) 100 04/22/17 09:00 Constitutional: Yes: No Distress HENT: Yes: Atraumatic Neck: Yes: Supple Cardiovascular: Yes: Regular Rate and Rhythm Respiratory: Yes: CTA Bilaterally Gastrointestinal: Yes: Normal Bowel Sounds Extremities: Yes: WNL Neurological: Yes: Alert, Oriented Labs: CBC, BMP 04/22/17 10:00 04/22/17 10:00 INR, PTT INR 1.07 (0.82-1.09) 03/24/17 20:30 Problem List - Problems (1) Acute on chronic kidney failure Assessment/Plan: ON HD renal on board Code(s): N17.9 - ACUTE KIDNEY FAILURE, UNSPECIFIED N18.9 - CHRONIC KIDNEY DISEASE, UNSPECIFIED (2) ESRD (end stage renal disease) Assessment/Plan: on hd Code(s): N18.6 - END STAGE RENAL DISEASE (3) Hypertension Assessment/Plan: ON MEDS STABLE Code(s): I10 - ESSENTIAL (PRIMARY) HYPERTENSION Qualifiers: Hypertension type: essential hypertension Qualified Code(s): I10 - Essential (primary) hypertension Assessment/Plan pt awaiting insurance...dc planning CM NOTES REVIEWED
[2017-04-23] MEDS: hydrALAZINE HCL 25 MG TABLET (FP) PO SCH ×3 (06:10→21:19)
[2017-04-23] MEDS ORDERED: PT OWN MED DRAWER 7, Y5N ONE (08:35)
[2017-04-23] MEDS: CALCIUM ACETATE 667 MG CAPSULE (FP) PO SCH ×3 (08:42→18:04)
[2017-04-23] MEDS: FERROUS SO4 325 MG TABLET (FP) PO SCH ×2 (08:42→18:04)
[2017-04-23] MEDS: CALCIUM 500MG/VIT-D 200 UNITS COMBO TABLET (FP) PO SCH ×2 (08:43→11:59)
[2017-04-23] MEDS: CARVEDILOL 25 MG TABLET (FP) PO SCH ×3 (08:44→21:19)
[2017-04-23] MEDS: CALCITRIOL 0.25 MCG CAPSULE (FP) PO SCH ×2 (08:44→12:00)
[2017-04-23] MEDS: VALSARTAN 160 MG TABLET (UD) PO SCH ×3 (08:44→21:19)
[2017-04-23] MEDS: NIFEdipine E.R. 90 MG TABLET (FP) PO SCH ×2 (08:45→11:59)
--- NOTE | 2017-04-23 11:50 | PN ---
Progress Note (short form) - Note Progress Note: S: 56 year male, with history of end stage renal disease, hemodialysis dependent, hypertension, hypertensive cardiovascular disease, anemia, history of hypocalcemia. Patient denies having chest pain or discomfort no history of dyspnea, PND or orthopnea, no palpitations were reported. Active Medications Generic Name Dose Route Start Last Admin Trade Name Freq PRN Reason Stop Dose Admin Calcitriol 0.5 mcg 04/06/17 11:42 04/23/17 08:44 Rocaltrol - PO 0.5 mcg DAILY [facility] Administration Calcium Acetate 667 mg 03/25/17 17:30 04/23/17 08:42 Phoslo - PO 667 mg TIDCM [facility] Administration Calcium Carbonate/Cholecalciferol 2 tab 03/25/17 15:00 04/23/17 08:43 Os-Justin 500+D - PO 2 tab DAILY [facility] Administration Carvedilol 25 mg 03/25/17 10:00 04/23/17 08:44 Coreg - PO 25 mg BID [facility] Administration Ferrous Sulfate 325 mg 03/28/17 17:30 04/23/17 08:42 Feosol - PO 325 mg BIDWM [facility] Administration Hydralazine HCl 50 mg 04/06/17 14:00 04/23/17 06:10 Apresoline - PO 50 mg TID [facility] Administration Nifedipine 90 mg 04/05/17 10:00 04/23/17 08:45 Procardia Xl - PO 90 mg DAILY [facility] Administration Valsartan 160 mg 03/27/17 22:00 04/23/17 08:44 Diovan - PO 160 mg BID [facility] Administration O: 56 year old male was in no acute distress, no pallor, cyanosis, clubbing, or jaundice. Last Vital Signs Temp Pulse Resp BP Pulse Ox 98 F 70 Regular 20 137/89 100 04/23/17 06:00 04/23/17 06:00 04/23/17 06:00 04/23/17 06:00 04/22/17 21:00 Neck: Supple, no JVD, negative HJR, carotids were equal and upstrokes were normal, no thyromegaly appreciated. Heart: PMI was in the 5th intercostal space, no heaves or thrills, S1 and S2 were normal. Grade I/ apical systolic murmur. No gallops were appreciated. Lungs: Clear on auscultation bilaterally. Chest: Right upper chest permacath, expansion is symmetrical. Abdomen: Soft, nontender, no hepatosplenomegaly appreciated, and no palpable masses were felt. Extremities: No calf tenderness or dependent edema. Pulses are normal. CBC, BMP 04/22/17 10:00 04/22/17 10:00 Laboratory Results - last 24 hr 04/22/17 10:00 Sodium 139 Potassium 3.9 Chloride 99 Carbon Dioxide 30 Anion Gap 10 BUN 68 H D Creatinine 7.7 H* D Creat Clearance w eGFR 7.39 Random Glucose 140 H D Calcium 8.1 L Total Bilirubin 0.3 AST 14 L ALT 14 D Alkaline Phosphatase 98 Total Protein 6.6 Albumin 3.3 L Impression: (1) Hypertension, Hypertensive cardiovascular disease Code(s): I11.9 - HYPERTENSIVE HEART DISEASE WITHOUT HEART FAILURE I42.9 - CARDIOMYOPATHY, UNSPECIFIED Qualifiers: Heart failure presence: without heart failure Qualified Code(s): I11.9 - Hypertensive heart disease without heart failure; I43 - Cardiomyopathy in diseases classified elsewhere (2) ESRD (end stage renal disease) Code(s): N18.6 - END STAGE RENAL DISEASE (4) Diastolic dysfunction Code(s): I51.9 - HEART DISEASE, UNSPECIFIED (5) Hypocalcemia Code(s): E83.51 - HYPOCALCEMIA (6) Hyperparathyroidism due to renal insufficiency Code(s): N25.81 - SECONDARY HYPERPARATHYROIDISM OF RENAL ORIGIN Recommendations: 1. Continue antihypertensive medications. 2. Risk modifications. 3. Increase ambulation. Attestation: Documentation prepared by Valente Reyes, acting as medical technologist prn for Cresencio Salgado MD.
--- NOTE | 2017-04-23 13:05 | PN ---
Progress Note, Physician History of Present Illness: Pt seen and examined at bedside. He is awake and alert. - Current Medication List Current Medications: Active Medications Calcitriol (Rocaltrol -) 0.5 mcg PO DAILY [facility] Last Admin: 04/23/17 12:00 Dose: Not Given Calcium Acetate (Phoslo -) 667 mg PO TIDCM [facility] Last Admin: 04/23/17 12:00 Dose: 667 mg Calcium Carbonate/Cholecalciferol (Os-Justin 500+D -) 2 tab PO DAILY [facility] Last Admin: 04/23/17 11:59 Dose: Not Given Carvedilol (Coreg -) 25 mg PO BID [facility] Last Admin: 04/23/17 11:59 Dose: Not Given Ferrous Sulfate (Feosol -) 325 mg PO BIDWM [facility] Last Admin: 04/23/17 08:42 Dose: 325 mg Hydralazine HCl (Apresoline -) 50 mg PO TID [facility] Last Admin: 04/23/17 06:10 Dose: 50 mg Nifedipine (Procardia Xl -) 90 mg PO DAILY [facility] Last Admin: 04/23/17 11:59 Dose: Not Given Valsartan (Diovan -) 160 mg PO BID [facility] Last Admin: 04/23/17 11:59 Dose: Not Given - Objective Vital Signs: Vital Signs Temperature 97.7 F 04/23/17 10:00 Pulse Rate 72 04/23/17 10:00 Respiratory Rate 18 04/23/17 10:00 Blood Pressure 137/82 04/23/17 10:00 O2 Sat by Pulse Oximetry (%) 100 04/22/17 21:00 Constitutional: Yes: Calm Eyes: Yes: Conjunctiva Clear HENT: Yes: Atraumatic Neck: Yes: Supple Cardiovascular: Yes: S1, S2 Respiratory: Yes: CTA Bilaterally Genitourinary: Yes: WNL Musculoskeletal: Yes: WNL Extremities: Yes: WNL Edema: No Neurological: Yes: Oriented Psychiatric: Yes: Oriented Labs: CBC, BMP 04/22/17 10:00 04/22/17 10:00 INR, PTT INR 1.07 (0.82-1.09) 03/24/17 20:30 Problem List - Problems (1) ESRD (end stage renal disease) Code(s): N18.6 - END STAGE RENAL DISEASE (2) Hypertension Code(s): I10 - ESSENTIAL (PRIMARY) HYPERTENSION Qualifiers: Hypertension type: essential hypertension Qualified Code(s): I10 - Essential (primary) hypertension (3) Hyperparathyroidism due to renal insufficiency Code(s): N25.81 - SECONDARY HYPERPARATHYROIDISM OF RENAL ORIGIN Assessment/Plan Current Medications Generic Name Dose Route Start Last Admin Trade Name Freq PRN Reason Stop Dose Admin Calcitriol 0.5 mcg 04/06/17 11:42 04/23/17 12:00 Rocaltrol - PO Not Given DAILY [facility] Calcium Acetate 667 mg 03/25/17 17:30 04/23/17 12:00 Phoslo - PO 667 mg TIDCM [facility] Administration Calcium Carbonate/Cholecalciferol 2 tab 03/25/17 15:00 04/23/17 11:59 Os-Justin 500+D - PO Not Given DAILY [facility] Carvedilol 25 mg 03/25/17 10:00 04/23/17 11:59 Coreg - PO Not Given BID [facility] Ferrous Sulfate 325 mg 03/28/17 17:30 04/23/17 08:42 Feosol - PO 325 mg BIDWM [facility] Administration Hydralazine HCl 50 mg 04/06/17 14:00 04/23/17 06:10 Apresoline - PO 50 mg TID [facility] Administration Nifedipine 90 mg 04/05/17 10:00 04/23/17 11:59 Procardia Xl - PO Not Given DAILY [facility] Valsartan 160 mg 03/27/17 22:00 04/23/17 11:59 Diovan - PO Not Given BID [facility] Impression 1. ESRD 2. HTN 3. hypocalcemia improving 4. anemia 5. hyperparathyroidism due to renal disease Plan - HD in am - orders written - cont current meds - cont iron supplements - BP is stable - pending placement Dr Ramos
--- NOTE | 2017-04-23 17:00 | PN ---
Progress Note, Physician History of Present Illness: no complaints - Current Medication List Current Medications: Active Medications Calcitriol (Rocaltrol -) 0.5 mcg PO DAILY [facility] Last Admin: 04/23/17 12:00 Dose: Not Given Calcium Acetate (Phoslo -) 667 mg PO TIDCM [facility] Last Admin: 04/23/17 12:00 Dose: 667 mg Calcium Carbonate/Cholecalciferol (Os-Justin 500+D -) 2 tab PO DAILY [facility] Last Admin: 04/23/17 11:59 Dose: Not Given Carvedilol (Coreg -) 25 mg PO BID [facility] Last Admin: 04/23/17 11:59 Dose: Not Given Ferrous Sulfate (Feosol -) 325 mg PO BIDWM [facility] Last Admin: 04/23/17 08:42 Dose: 325 mg Heparin Sodium (Porcine) (Heparin -) 1,000 unit IVPUSH ONCE ONE Stop: 04/24/17 13:06 Hydralazine HCl (Apresoline -) 50 mg PO TID [facility] Last Admin: 04/23/17 14:44 Dose: 50 mg Nifedipine (Procardia Xl -) 90 mg PO DAILY [facility] Last Admin: 04/23/17 11:59 Dose: Not Given Valsartan (Diovan -) 160 mg PO BID [facility] Last Admin: 04/23/17 11:59 Dose: Not Given - Objective Vital Signs: Vital Signs Temperature 98.0 F 04/23/17 14:48 Pulse Rate 86 04/23/17 14:48 Respiratory Rate 16 04/23/17 14:48 Blood Pressure 120/76 04/23/17 14:48 O2 Sat by Pulse Oximetry (%) 100 04/23/17 09:00 Constitutional: Yes: No Distress HENT: Yes: Atraumatic Neck: Yes: Supple Cardiovascular: Yes: Regular Rate and Rhythm Respiratory: Yes: CTA Bilaterally Gastrointestinal: Yes: Normal Bowel Sounds Extremities: Yes: WNL Neurological: Yes: Alert, Oriented Labs: CBC, BMP 04/22/17 10:00 04/22/17 10:00 INR, PTT INR 1.07 (0.82-1.09) 03/24/17 20:30 Problem List - Problems (1) Acute on chronic kidney failure Assessment/Plan: ON HD renal on board Code(s): N17.9 - ACUTE KIDNEY FAILURE, UNSPECIFIED N18.9 - CHRONIC KIDNEY DISEASE, UNSPECIFIED (2) ESRD (end stage renal disease) Assessment/Plan: on hd Code(s): N18.6 - END STAGE RENAL DISEASE (3) Hypertension Assessment/Plan: ON MEDS STABLE Code(s): I10 - ESSENTIAL (PRIMARY) HYPERTENSION Qualifiers: Hypertension type: essential hypertension Qualified Code(s): I10 - Essential (primary) hypertension Assessment/Plan pt awaiting insurance...dc planning CM NOTES REVIEWED
[2017-04-24] MEDS: hydrALAZINE HCL 25 MG TABLET (FP) PO SCH ×4 (06:23→21:16)
[2017-04-24] MEDS: HEPARIN NA (PORCINE) 5,000 UNITS/ML 1ML VIAL IVPUSH ONE ×2 (06:50→09:42)
[2017-04-24] MEDS ORDERED: PT OWN MED DRAWER 7, Y5N ONE (09:39)
[2017-04-24] MEDS: FERROUS SO4 325 MG TABLET (FP) PO SCH ×2 (09:40→17:40)
[2017-04-24] MEDS: VALSARTAN 160 MG TABLET (UD) PO SCH ×3 (09:41→21:17)
[2017-04-24] MEDS: CALCIUM 500MG/VIT-D 200 UNITS COMBO TABLET (FP) PO SCH ×2 (09:41→11:43)
[2017-04-24] MEDS: NIFEdipine E.R. 90 MG TABLET (FP) PO SCH ×2 (09:41→11:43)
[2017-04-24] MEDS: CARVEDILOL 25 MG TABLET (FP) PO SCH ×3 (09:41→21:16)
[2017-04-24] MEDS: CALCITRIOL 0.25 MCG CAPSULE (FP) PO SCH ×2 (09:41→11:43)
[2017-04-24] MEDS: CALCIUM ACETATE 667 MG CAPSULE (FP) PO SCH ×3 (09:41→17:40)
--- NOTE | 2017-04-24 13:48 | PN ---
Progress Note, Physician History of Present Illness: No chest pain or dyspnea. - Current Medication List Current Medications: Active Medications Calcitriol (Rocaltrol -) 0.5 mcg PO DAILY [facility] Last Admin: 04/24/17 11:43 Dose: 0.5 mcg Calcium Acetate (Phoslo -) 667 mg PO TIDCM [facility] Last Admin: 04/24/17 11:42 Dose: 667 mg Calcium Carbonate/Cholecalciferol (Os-Justin 500+D -) 2 tab PO DAILY [facility] Last Admin: 04/24/17 11:43 Dose: 2 tab Carvedilol (Coreg -) 25 mg PO BID [facility] Last Admin: 04/24/17 11:42 Dose: 25 mg Ferrous Sulfate (Feosol -) 325 mg PO BIDWM [facility] Last Admin: 04/24/17 09:40 Dose: Not Given Hydralazine HCl (Apresoline -) 50 mg PO TID [facility] Last Admin: 04/24/17 06:37 Dose: Not Given Nifedipine (Procardia Xl -) 90 mg PO DAILY [facility] Last Admin: 04/24/17 11:43 Dose: 90 mg Valsartan (Diovan -) 160 mg PO BID [facility] Last Admin: 04/24/17 11:43 Dose: 160 mg - Objective Vital Signs: Vital Signs Temperature 98.2 F 04/24/17 10:00 Pulse Rate 62 04/24/17 11:00 Respiratory Rate 18 04/24/17 11:00 Blood Pressure 144/105 04/24/17 11:00 O2 Sat by Pulse Oximetry (%) 98 04/24/17 09:00 Constitutional: Yes: No Distress, Calm Neck: Yes: Supple Cardiovascular: Yes: Regular Rate and Rhythm Respiratory: Yes: Regular, CTA Bilaterally Gastrointestinal: Yes: Normal Bowel Sounds, Soft Edema: No Labs: CBC, BMP 04/22/17 10:00 04/22/17 10:00 INR, PTT INR 1.07 (0.82-1.09) 03/24/17 20:30 Problem List - Problems (1) Acute on chronic kidney failure Code(s): N17.9 - ACUTE KIDNEY FAILURE, UNSPECIFIED N18.9 - CHRONIC KIDNEY DISEASE, UNSPECIFIED (2) ESRD (end stage renal disease) Code(s): N18.6 - END STAGE RENAL DISEASE (3) Hypertensive cardiomyopathy Code(s): I11.9 - HYPERTENSIVE HEART DISEASE WITHOUT HEART FAILURE I42.9 - CARDIOMYOPATHY, UNSPECIFIED Qualifiers: Heart failure presence: without heart failure Qualified Code(s): I11.9 - Hypertensive heart disease without heart failure; I43 - Cardiomyopathy in diseases classified elsewhere (4) Diastolic dysfunction Code(s): I51.9 - HEART DISEASE, UNSPECIFIED (5) Hypocalcemia Code(s): E83.51 - HYPOCALCEMIA (6) Hyperparathyroidism due to renal insufficiency Code(s): N25.81 - SECONDARY HYPERPARATHYROIDISM OF RENAL ORIGIN Assessment/Plan 03/25/2017 Echo: Normal LV size and fxn, mod cLVH, mild LAE, mild TR, RVSP 30-40 mmHg, mild [place], Tr-mild [place] 1. ESRD->HD 2. LV diastolic dysfunction with class I-II NYHA classification LV failure, compensated 3. CAD angina pectoris abnormal EKG with evidence of demand ischemia 4. HTN/HCVD, BP control improved 5. Anemia 6. Hypocalcemia improving 7. Hyperparathyroidism due to renal disease PLAN: 1. Continue Coreg 25 mg bid, Procardia XL 90 qd, Diovan 160 bid and hydralazine 50 tid 2. HD as per renal service, outpatient HD arrangement pending insurance coverage
--- NOTE | 2017-04-24 14:33 | PN ---
Progress Note, Physician History of Present Illness: Pt seen and examined at bedside. He is awake and alert. He tolerated HD today. - Current Medication List Current Medications: Active Medications Calcitriol (Rocaltrol -) 0.5 mcg PO DAILY [facility] Last Admin: 04/24/17 11:43 Dose: 0.5 mcg Calcium Acetate (Phoslo -) 667 mg PO TIDCM [facility] Last Admin: 04/24/17 11:42 Dose: 667 mg Calcium Carbonate/Cholecalciferol (Os-Justin 500+D -) 2 tab PO DAILY [facility] Last Admin: 04/24/17 11:43 Dose: 2 tab Carvedilol (Coreg -) 25 mg PO BID [facility] Last Admin: 04/24/17 11:42 Dose: 25 mg Ferrous Sulfate (Feosol -) 325 mg PO BIDWM [facility] Last Admin: 04/24/17 09:40 Dose: Not Given Hydralazine HCl (Apresoline -) 50 mg PO TID [facility] Last Admin: 04/24/17 14:08 Dose: 50 mg Nifedipine (Procardia Xl -) 90 mg PO DAILY [facility] Last Admin: 04/24/17 11:43 Dose: 90 mg Valsartan (Diovan -) 160 mg PO BID [facility] Last Admin: 04/24/17 11:43 Dose: 160 mg - Objective Vital Signs: Vital Signs Temperature 98.5 F 04/24/17 14:08 Pulse Rate 82 04/24/17 14:08 Respiratory Rate 16 04/24/17 14:08 Blood Pressure 123/82 04/24/17 14:08 O2 Sat by Pulse Oximetry (%) 98 04/24/17 09:00 Constitutional: Yes: Calm Eyes: Yes: Conjunctiva Clear HENT: Yes: Atraumatic Neck: Yes: Supple Cardiovascular: Yes: S1, S2 Respiratory: Yes: CTA Bilaterally Gastrointestinal: Yes: WNL Genitourinary: Yes: WNL Edema: No Neurological: Yes: Oriented Psychiatric: Yes: Oriented Labs: CBC, BMP 04/22/17 10:00 04/22/17 10:00 INR, PTT INR 1.07 (0.82-1.09) 03/24/17 20:30 Problem List - Problems (1) ESRD (end stage renal disease) Code(s): N18.6 - END STAGE RENAL DISEASE (2) Hypertension Code(s): I10 - ESSENTIAL (PRIMARY) HYPERTENSION Qualifiers: Hypertension type: essential hypertension Qualified Code(s): I10 - Essential (primary) hypertension (3) Hyperparathyroidism due to renal insufficiency Code(s): N25.81 - SECONDARY HYPERPARATHYROIDISM OF RENAL ORIGIN Assessment/Plan Current Medications Generic Name Dose Route Start Last Admin Trade Name Freq PRN Reason Stop Dose Admin Calcitriol 0.5 mcg 04/06/17 11:42 04/24/17 11:43 Rocaltrol - PO 0.5 mcg DAILY [facility] Administration Calcium Acetate 667 mg 03/25/17 17:30 04/24/17 11:42 Phoslo - PO 667 mg TIDCM [facility] Administration Calcium Carbonate/Cholecalciferol 2 tab 03/25/17 15:00 04/24/17 11:43 Os-Justin 500+D - PO 2 tab DAILY [facility] Administration Carvedilol 25 mg 03/25/17 10:00 04/24/17 11:42 Coreg - PO 25 mg BID [facility] Administration Ferrous Sulfate 325 mg 03/28/17 17:30 04/24/17 09:40 Feosol - PO Not Given BIDWM [facility] Hydralazine HCl 50 mg 04/06/17 14:00 04/24/17 14:08 Apresoline - PO 50 mg TID [facility] Administration Nifedipine 90 mg 04/05/17 10:00 04/24/17 11:43 Procardia Xl - PO 90 mg DAILY [facility] Administration Valsartan 160 mg 03/27/17 22:00 04/24/17 11:43 Diovan - PO 160 mg BID [facility] Administration Impression 1. ESRD 2. HTN 3. hypocalcemia improving 4. anemia 5. hyperparathyroidism due to renal disease Plan - pt tolerated HD - cont iron supplements - BP is stable - pending placement - cont current meds Dr aRmos
--- NOTE | 2017-04-24 18:59 | PN ---
Progress Note, Physician History of Present Illness: no complaints - Current Medication List Current Medications: Active Medications Calcitriol (Rocaltrol -) 0.5 mcg PO DAILY [facility] Last Admin: 04/24/17 11:43 Dose: 0.5 mcg Calcium Acetate (Phoslo -) 667 mg PO TIDCM [facility] Last Admin: 04/24/17 17:40 Dose: 667 mg Calcium Carbonate/Cholecalciferol (Os-Justin 500+D -) 2 tab PO DAILY [facility] Last Admin: 04/24/17 11:43 Dose: 2 tab Carvedilol (Coreg -) 25 mg PO BID [facility] Last Admin: 04/24/17 11:42 Dose: 25 mg Ferrous Sulfate (Feosol -) 325 mg PO BIDWM [facility] Last Admin: 04/24/17 17:40 Dose: 325 mg Hydralazine HCl (Apresoline -) 50 mg PO TID [facility] Last Admin: 04/24/17 14:08 Dose: 50 mg Nifedipine (Procardia Xl -) 90 mg PO DAILY [facility] Last Admin: 04/24/17 11:43 Dose: 90 mg Valsartan (Diovan -) 160 mg PO BID [facility] Last Admin: 04/24/17 11:43 Dose: 160 mg - Objective Vital Signs: Vital Signs Temperature 98.4 F 04/24/17 17:01 Pulse Rate 76 04/24/17 17:01 Respiratory Rate 20 04/24/17 17:01 Blood Pressure 135/81 04/24/17 17:01 O2 Sat by Pulse Oximetry (%) 98 04/24/17 09:00 Constitutional: Yes: No Distress HENT: Yes: Atraumatic Neck: Yes: Supple Cardiovascular: Yes: Regular Rate and Rhythm Respiratory: Yes: CTA Bilaterally Gastrointestinal: Yes: Normal Bowel Sounds Extremities: Yes: WNL Neurological: Yes: Alert, Oriented Labs: CBC, BMP 04/22/17 10:00 04/22/17 10:00 INR, PTT INR 1.07 (0.82-1.09) 03/24/17 20:30 Problem List - Problems (1) Acute on chronic kidney failure Assessment/Plan: ON HD renal on board Code(s): N17.9 - ACUTE KIDNEY FAILURE, UNSPECIFIED N18.9 - CHRONIC KIDNEY DISEASE, UNSPECIFIED (2) ESRD (end stage renal disease) Assessment/Plan: on hd Code(s): N18.6 - END STAGE RENAL DISEASE (3) Hypertension Assessment/Plan: ON MEDS STABLE Code(s): I10 - ESSENTIAL (PRIMARY) HYPERTENSION Qualifiers: Hypertension type: essential hypertension Qualified Code(s): I10 - Essential (primary) hypertension Assessment/Plan pt awaiting insurance...dc planning CM NOTES REVIEWED
[2017-04-25] MEDS: hydrALAZINE HCL 25 MG TABLET (FP) PO SCH ×3 (06:18→21:41)
[2017-04-25] MEDS: FERROUS SO4 325 MG TABLET (FP) PO SCH ×2 (08:39→17:32)
[2017-04-25] MEDS: CALCIUM ACETATE 667 MG CAPSULE (FP) PO SCH ×3 (08:39→17:32)
[2017-04-25] MEDS ORDERED: PT OWN MED DRAWER 7, Y5N ONE (09:04)
[2017-04-25] MEDS: CALCIUM 500MG/VIT-D 200 UNITS COMBO TABLET (FP) PO SCH (09:14)
[2017-04-25] MEDS: CARVEDILOL 25 MG TABLET (FP) PO SCH ×2 (09:14→21:41)
[2017-04-25] MEDS: VALSARTAN 160 MG TABLET (UD) PO SCH ×2 (09:14→21:41)
[2017-04-25] MEDS: CALCITRIOL 0.25 MCG CAPSULE (FP) PO SCH (09:14)
[2017-04-25] MEDS: NIFEdipine E.R. 90 MG TABLET (FP) PO SCH (09:15)
--- NOTE | 2017-04-25 12:03 | PN ---
Progress Note, Physician History of Present Illness: No chest pain or dyspnea. - Current Medication List Current Medications: Active Medications Calcitriol (Rocaltrol -) 0.5 mcg PO DAILY [facility] Last Admin: 04/25/17 09:14 Dose: 0.5 mcg Calcium Acetate (Phoslo -) 667 mg PO TIDCM [facility] Last Admin: 04/25/17 08:39 Dose: 667 mg Calcium Carbonate/Cholecalciferol (Os-Justin 500+D -) 2 tab PO DAILY [facility] Last Admin: 04/25/17 09:14 Dose: 2 tab Carvedilol (Coreg -) 25 mg PO BID [facility] Last Admin: 04/25/17 09:14 Dose: 25 mg Ferrous Sulfate (Feosol -) 325 mg PO BIDWM [facility] Last Admin: 04/25/17 08:39 Dose: 325 mg Hydralazine HCl (Apresoline -) 50 mg PO TID [facility] Last Admin: 04/25/17 06:18 Dose: 50 mg Nifedipine (Procardia Xl -) 90 mg PO DAILY [facility] Last Admin: 04/25/17 09:15 Dose: 90 mg Valsartan (Diovan -) 160 mg PO BID [facility] Last Admin: 04/25/17 09:14 Dose: 160 mg - Objective Vital Signs: Vital Signs Temperature 98.2 F 04/25/17 10:00 Pulse Rate 71 04/25/17 10:00 Respiratory Rate 18 04/25/17 10:00 Blood Pressure 144/87 04/25/17 10:00 O2 Sat by Pulse Oximetry (%) 98 04/25/17 09:00 Constitutional: Yes: No Distress, Calm, Thin Neck: Yes: Supple Cardiovascular: Yes: Regular Rate and Rhythm Respiratory: Yes: Regular, CTA Bilaterally Gastrointestinal: Yes: Normal Bowel Sounds, Soft Edema: No Labs: CBC, BMP 04/22/17 10:00 04/22/17 10:00 INR, PTT INR 1.07 (0.82-1.09) 03/24/17 20:30 Problem List - Problems (1) Acute on chronic kidney failure Code(s): N17.9 - ACUTE KIDNEY FAILURE, UNSPECIFIED N18.9 - CHRONIC KIDNEY DISEASE, UNSPECIFIED (2) ESRD (end stage renal disease) Code(s): N18.6 - END STAGE RENAL DISEASE (3) Hypertensive cardiomyopathy Code(s): I11.9 - HYPERTENSIVE HEART DISEASE WITHOUT HEART FAILURE I42.9 - CARDIOMYOPATHY, UNSPECIFIED Qualifiers: Heart failure presence: without heart failure Qualified Code(s): I11.9 - Hypertensive heart disease without heart failure; I43 - Cardiomyopathy in diseases classified elsewhere (4) Diastolic dysfunction Code(s): I51.9 - HEART DISEASE, UNSPECIFIED (5) Hypocalcemia Code(s): E83.51 - HYPOCALCEMIA (6) Hyperparathyroidism due to renal insufficiency Code(s): N25.81 - SECONDARY HYPERPARATHYROIDISM OF RENAL ORIGIN Assessment/Plan 03/25/2017 Echo: Normal LV size and fxn, mod cLVH, mild LAE, mild TR, RVSP 30-40 mmHg, mild [place], Tr-mild [place] 1. ESRD->HD 2. LV diastolic dysfunction with class I-II NYHA classification LV failure, compensated 3. CAD angina pectoris abnormal EKG with evidence of demand ischemia 4. HTN/HCVD, BP control improved 5. Anemia 6. Hypocalcemia improving 7. Hyperparathyroidism due to renal disease PLAN: 1. Continue Coreg 25 mg bid, Procardia XL 90 qd, Diovan 160 bid and hydralazine 50 tid 2. HD as per renal service, outpatient HD arrangement pending insurance coverage
--- NOTE | 2017-04-25 12:20 | PN ---
Progress Note, Physician History of Present Illness: Pt seen and examined at bedside. He is awake and alert. - Current Medication List Current Medications: Active Medications Calcitriol (Rocaltrol -) 0.5 mcg PO DAILY [facility] Last Admin: 04/25/17 09:14 Dose: 0.5 mcg Calcium Acetate (Phoslo -) 667 mg PO TIDCM [facility] Last Admin: 04/25/17 08:39 Dose: 667 mg Calcium Carbonate/Cholecalciferol (Os-Justin 500+D -) 2 tab PO DAILY [facility] Last Admin: 04/25/17 09:14 Dose: 2 tab Carvedilol (Coreg -) 25 mg PO BID [facility] Last Admin: 04/25/17 09:14 Dose: 25 mg Ferrous Sulfate (Feosol -) 325 mg PO BIDWM [facility] Last Admin: 04/25/17 08:39 Dose: 325 mg Hydralazine HCl (Apresoline -) 50 mg PO TID [facility] Last Admin: 04/25/17 06:18 Dose: 50 mg Nifedipine (Procardia Xl -) 90 mg PO DAILY [facility] Last Admin: 04/25/17 09:15 Dose: 90 mg Valsartan (Diovan -) 160 mg PO BID [facility] Last Admin: 04/25/17 09:14 Dose: 160 mg - Objective Vital Signs: Vital Signs Temperature 98.2 F 04/25/17 10:00 Pulse Rate 71 04/25/17 10:00 Respiratory Rate 18 04/25/17 10:00 Blood Pressure 144/87 04/25/17 10:00 O2 Sat by Pulse Oximetry (%) 98 04/25/17 09:00 Constitutional: Yes: Calm Eyes: Yes: Conjunctiva Clear HENT: Yes: Atraumatic Neck: Yes: Supple Cardiovascular: Yes: S1, S2 Respiratory: Yes: CTA Bilaterally Gastrointestinal: Yes: Soft Genitourinary: Yes: WNL Extremities: Yes: WNL Edema: No Neurological: Yes: Oriented Psychiatric: Yes: Oriented Labs: CBC, BMP 04/22/17 10:00 04/22/17 10:00 INR, PTT INR 1.07 (0.82-1.09) 03/24/17 20:30 Problem List - Problems (1) ESRD (end stage renal disease) Code(s): N18.6 - END STAGE RENAL DISEASE (2) Hypertension Code(s): I10 - ESSENTIAL (PRIMARY) HYPERTENSION Qualifiers: Hypertension type: essential hypertension Qualified Code(s): I10 - Essential (primary) hypertension (3) Hyperparathyroidism due to renal insufficiency Code(s): N25.81 - SECONDARY HYPERPARATHYROIDISM OF RENAL ORIGIN Assessment/Plan Current Medications Generic Name Dose Route Start Last Admin Trade Name Freq PRN Reason Stop Dose Admin Calcitriol 0.5 mcg 04/06/17 11:42 04/25/17 09:14 Rocaltrol - PO 0.5 mcg DAILY [facility] Administration Calcium Acetate 667 mg 03/25/17 17:30 04/25/17 08:39 Phoslo - PO 667 mg TIDCM [facility] Administration Calcium Carbonate/Cholecalciferol 2 tab 03/25/17 15:00 04/25/17 09:14 Os-Justin 500+D - PO 2 tab DAILY [facility] Administration Carvedilol 25 mg 03/25/17 10:00 04/25/17 09:14 Coreg - PO 25 mg BID [facility] Administration Ferrous Sulfate 325 mg 03/28/17 17:30 04/25/17 08:39 Feosol - PO 325 mg BIDWM [facility] Administration Hydralazine HCl 50 mg 04/06/17 14:00 04/25/17 06:18 Apresoline - PO 50 mg TID [facility] Administration Nifedipine 90 mg 04/05/17 10:00 04/25/17 09:15 Procardia Xl - PO 90 mg DAILY [facility] Administration Valsartan 160 mg 03/27/17 22:00 04/25/17 09:14 Diovan - PO 160 mg BID [facility] Administration Impression 1. ESRD 2. HTN 3. hypocalcemia improving 4. anemia 5. hyperparathyroidism due to renal disease Plan - HD in am - orders written - cont iron supplements - BP is stable - pending placement - cont current meds Dr Ramos
--- NOTE | 2017-04-25 18:15 | PN ---
Progress Note, Physician History of Present Illness: no complaints - Current Medication List Current Medications: Active Medications Calcitriol (Rocaltrol -) 0.5 mcg PO DAILY [facility] Last Admin: 04/25/17 09:14 Dose: 0.5 mcg Calcium Acetate (Phoslo -) 667 mg PO TIDCM [facility] Last Admin: 04/25/17 17:32 Dose: 667 mg Calcium Carbonate/Cholecalciferol (Os-Justin 500+D -) 2 tab PO DAILY [facility] Last Admin: 04/25/17 09:14 Dose: 2 tab Carvedilol (Coreg -) 25 mg PO BID [facility] Last Admin: 04/25/17 09:14 Dose: 25 mg Ferrous Sulfate (Feosol -) 325 mg PO BIDWM [facility] Last Admin: 04/25/17 17:32 Dose: 325 mg Heparin Sodium (Porcine) (Heparin -) 1,000 unit IVPUSH ONCE ONE Stop: 04/26/17 12:21 Hydralazine HCl (Apresoline -) 50 mg PO TID [facility] Last Admin: 04/25/17 14:07 Dose: 50 mg Nifedipine (Procardia Xl -) 90 mg PO DAILY [facility] Last Admin: 04/25/17 09:15 Dose: 90 mg Valsartan (Diovan -) 160 mg PO BID [facility] Last Admin: 04/25/17 09:14 Dose: 160 mg - Objective Vital Signs: Vital Signs Temperature 98.4 F 04/25/17 14:08 Pulse Rate 76 04/25/17 14:08 Respiratory Rate 18 04/25/17 14:08 Blood Pressure 143/90 04/25/17 14:08 O2 Sat by Pulse Oximetry (%) 98 04/25/17 09:00 Constitutional: Yes: No Distress HENT: Yes: Atraumatic Neck: Yes: Supple Cardiovascular: Yes: Regular Rate and Rhythm Respiratory: Yes: CTA Bilaterally Gastrointestinal: Yes: Normal Bowel Sounds Extremities: Yes: WNL Neurological: Yes: Alert, Oriented Labs: CBC, BMP 04/22/17 10:00 04/22/17 10:00 INR, PTT INR 1.07 (0.82-1.09) 03/24/17 20:30 Problem List - Problems (1) Acute on chronic kidney failure Assessment/Plan: ON HD renal on board Code(s): N17.9 - ACUTE KIDNEY FAILURE, UNSPECIFIED N18.9 - CHRONIC KIDNEY DISEASE, UNSPECIFIED (2) ESRD (end stage renal disease) Assessment/Plan: on hd Code(s): N18.6 - END STAGE RENAL DISEASE (3) Hypertension Assessment/Plan: ON MEDS STABLE Code(s): I10 - ESSENTIAL (PRIMARY) HYPERTENSION Qualifiers: Hypertension type: essential hypertension Qualified Code(s): I10 - Essential (primary) hypertension Assessment/Plan pt awaiting insurance...dc planning CM NOTES REVIEWED
[2017-04-26 00:06] LABS: HEP B SURFACE AB Non Reactive (.)
[2017-04-26] MEDS: hydrALAZINE HCL 25 MG TABLET (FP) PO SCH ×3 (05:40→21:08)
[2017-04-26 08:45] LABS: MCH 26.2 pg (25.7-33.7); MCHC 32.7 g/dl (32.0-35.9); MEAN CELL VOLUME 80.2 fl (80-96); MEAN PLT VOLUME 8.5 fl (7.5-11.1); PLATELET COUNT 172 K/MM3 (134-434); RDW 17.8 % (11.9-15.9); WHITE BLOOD COUNT 4.9 K/mm3 (4.0-10.0)
[2017-04-26] MEDS: CALCIUM ACETATE 667 MG CAPSULE (FP) PO SCH ×3 (08:45→18:06)
[2017-04-26] MEDS: FERROUS SO4 325 MG TABLET (FP) PO SCH ×2 (08:45→18:06)
[2017-04-26] MEDS ORDERED: HEPARIN NA (PORCINE) 5,000 UNITS/ML 1ML VIAL IVPUSH ONE (09:00)
[2017-04-26 09:58] LABS: CALCIUM 8.8 mg/dL (8.5-10.1); COCKROFT - GAULT 8.13
[2017-04-26 10:16] LABS: CREATININE 10.4 mg/dL (0.7-1.3)
--- NOTE | 2017-04-26 10:17 | PN ---
Progress Note (short form) - Note Progress Note: RENAL Pt is awake and alert denies complaints he is currently on HD Last Vital Signs Temp Pulse Resp BP Pulse Ox 97.7 F 61 18 154/105 98 04/26/17 06:24 04/26/17 08:30 04/26/17 08:30 04/26/17 08:30 04/25/17 21:00 lungs clear cvs s1s2 rr abd soft ext no edema has a perm cath on right neuro a+o CBC, BMP 04/26/17 08:36 Current Medications Generic Name Dose Route Start Last Admin Trade Name Jenelle PRN Reason Stop Dose Admin Calcitriol 0.5 mcg 04/06/17 11:42 04/25/17 09:14 Rocaltrol - PO 0.5 mcg DAILY [facility] Administration Calcium Acetate 667 mg 03/25/17 17:30 04/26/17 08:45 Phoslo - PO 667 mg TIDCM [facility] Administration Calcium Carbonate/Cholecalciferol 2 tab 03/25/17 15:00 04/25/17 09:14 Os-Justin 500+D - PO 2 tab DAILY [facility] Administration Carvedilol 25 mg 03/25/17 10:00 04/25/17 21:41 Coreg - PO 25 mg BID [facility] Administration Ferrous Sulfate 325 mg 03/28/17 17:30 04/26/17 08:45 Feosol - PO 325 mg BIDWM [facility] Administration Hydralazine HCl 50 mg 04/06/17 14:00 04/26/17 05:40 Apresoline - PO Not Given TID [facility] Nifedipine 90 mg 04/05/17 10:00 04/25/17 09:15 Procardia Xl - PO 90 mg DAILY [facility] Administration Valsartan 160 mg 03/27/17 22:00 04/25/17 21:41 Diovan - PO 160 mg BID [facility] Administration Impression 1. ESRD 2. HTN better controlled 3. hypocalcemia improving 4. anemia 5. hyperparathyroidism due to renal disease Plan HD tiw BP currently on HD is 138/89 awaiting placement will need more fluid removal with HD MV
[2017-04-26] MEDS ORDERED: PT OWN MED DRAWER 7, Y5N ONE (11:40)
[2017-04-26] MEDS: CALCITRIOL 0.25 MCG CAPSULE (FP) PO SCH (11:45)
[2017-04-26] MEDS: VALSARTAN 160 MG TABLET (UD) PO SCH ×2 (11:45→21:08)
[2017-04-26] MEDS: NIFEdipine E.R. 90 MG TABLET (FP) PO SCH (11:45)
[2017-04-26] MEDS: CARVEDILOL 25 MG TABLET (FP) PO SCH ×2 (11:46→21:08)
[2017-04-26] MEDS: CALCIUM 500MG/VIT-D 200 UNITS COMBO TABLET (FP) PO SCH (11:46)
--- NOTE | 2017-04-26 11:54 | PN ---
Progress Note, Physician History of Present Illness: No new complaints - Current Medication List Current Medications: Active Medications Calcitriol (Rocaltrol -) 0.5 mcg PO DAILY [facility] Last Admin: 04/26/17 11:45 Dose: 0.5 mcg Calcium Acetate (Phoslo -) 667 mg PO TIDCM [facility] Last Admin: 04/26/17 11:46 Dose: 667 mg Calcium Carbonate/Cholecalciferol (Os-Justin 500+D -) 2 tab PO DAILY [facility] Last Admin: 04/26/17 11:46 Dose: 2 tab Carvedilol (Coreg -) 25 mg PO BID [facility] Last Admin: 04/26/17 11:46 Dose: 25 mg Ferrous Sulfate (Feosol -) 325 mg PO BIDWM [facility] Last Admin: 04/26/17 08:45 Dose: 325 mg Hydralazine HCl (Apresoline -) 50 mg PO TID [facility] Last Admin: 04/26/17 05:40 Dose: Not Given Nifedipine (Procardia Xl -) 90 mg PO DAILY [facility] Last Admin: 04/26/17 11:45 Dose: 90 mg Valsartan (Diovan -) 160 mg PO BID [facility] Last Admin: 04/26/17 11:45 Dose: 160 mg - Objective Vital Signs: Vital Signs Temperature 97.7 F 04/26/17 06:24 Pulse Rate 66 04/26/17 10:00 Respiratory Rate 18 04/26/17 10:00 Blood Pressure 138/89 04/26/17 10:00 O2 Sat by Pulse Oximetry (%) 98 04/25/17 21:00 Constitutional: Yes: No Distress HENT: Yes: WNL Neck: Yes: WNL, Supple Cardiovascular: Yes: WNL, Regular Rate and Rhythm Respiratory: Yes: WNL, Regular, CTA Bilaterally Gastrointestinal: Yes: WNL, Normal Bowel Sounds, Soft Labs: CBC, BMP 04/26/17 08:36 04/26/17 08:36 INR, PTT INR 1.07 (0.82-1.09) 03/24/17 20:30 Problem List - Problems (1) Anemia Code(s): D64.9 - ANEMIA, UNSPECIFIED (2) ESRD (end stage renal disease) Code(s): N18.6 - END STAGE RENAL DISEASE (3) Hypertension Code(s): I10 - ESSENTIAL (PRIMARY) HYPERTENSION Qualifiers: Hypertension type: essential hypertension Qualified Code(s): I10 - Essential (primary) hypertension (4) Hypocalcemia Code(s): E83.51 - HYPOCALCEMIA
--- NOTE | 2017-04-26 12:47 | PN ---
Progress Note, Physician History of Present Illness: No chest pain or dyspnea. - Current Medication List Current Medications: Active Medications Calcitriol (Rocaltrol -) 0.5 mcg PO DAILY [facility] Last Admin: 04/26/17 11:45 Dose: 0.5 mcg Calcium Acetate (Phoslo -) 667 mg PO TIDCM [facility] Last Admin: 04/26/17 11:46 Dose: 667 mg Calcium Carbonate/Cholecalciferol (Os-Justin 500+D -) 2 tab PO DAILY [facility] Last Admin: 04/26/17 11:46 Dose: 2 tab Carvedilol (Coreg -) 25 mg PO BID [facility] Last Admin: 04/26/17 11:46 Dose: 25 mg Ferrous Sulfate (Feosol -) 325 mg PO BIDWM [facility] Last Admin: 04/26/17 08:45 Dose: 325 mg Hydralazine HCl (Apresoline -) 50 mg PO TID [facility] Last Admin: 04/26/17 05:40 Dose: Not Given Nifedipine (Procardia Xl -) 90 mg PO DAILY [facility] Last Admin: 04/26/17 11:45 Dose: 90 mg Valsartan (Diovan -) 160 mg PO BID [facility] Last Admin: 04/26/17 11:45 Dose: 160 mg - Objective Vital Signs: Vital Signs Temperature 97.7 F 04/26/17 06:24 Pulse Rate 72 04/26/17 11:20 Respiratory Rate 18 04/26/17 12:00 Blood Pressure 135/85 04/26/17 11:20 O2 Sat by Pulse Oximetry (%) 98 04/26/17 12:00 Constitutional: Yes: No Distress, Calm, Thin Neck: Yes: Supple Cardiovascular: Yes: Regular Rate and Rhythm Respiratory: Yes: Regular, CTA Bilaterally Gastrointestinal: Yes: Normal Bowel Sounds, Soft Edema: No Labs: CBC, BMP 04/26/17 08:36 04/26/17 08:36 INR, PTT INR 1.07 (0.82-1.09) 03/24/17 20:30 Problem List - Problems (1) Acute on chronic kidney failure Code(s): N17.9 - ACUTE KIDNEY FAILURE, UNSPECIFIED N18.9 - CHRONIC KIDNEY DISEASE, UNSPECIFIED (2) ESRD (end stage renal disease) Code(s): N18.6 - END STAGE RENAL DISEASE (3) Hypertensive cardiomyopathy Code(s): I11.9 - HYPERTENSIVE HEART DISEASE WITHOUT HEART FAILURE I42.9 - CARDIOMYOPATHY, UNSPECIFIED Qualifiers: Heart failure presence: without heart failure Qualified Code(s): I11.9 - Hypertensive heart disease without heart failure; I43 - Cardiomyopathy in diseases classified elsewhere (4) Diastolic dysfunction Code(s): I51.9 - HEART DISEASE, UNSPECIFIED (5) Hypocalcemia Code(s): E83.51 - HYPOCALCEMIA (6) Hyperparathyroidism due to renal insufficiency Code(s): N25.81 - SECONDARY HYPERPARATHYROIDISM OF RENAL ORIGIN Assessment/Plan 03/25/2017 Echo: Normal LV size and fxn, mod cLVH, mild LAE, mild TR, RVSP 30-40 mmHg, mild AR, Tr-mild [place] 1. ESRD->HD 2. LV diastolic dysfunction with class I-II NYHA classification LV failure, compensated 3. CAD angina pectoris abnormal EKG with evidence of demand ischemia 4. HTN/HCVD, BP control improved 5. Anemia 6. Hypocalcemia improving 7. Hyperparathyroidism due to renal disease PLAN: 1. Continue Coreg 25 mg bid, Procardia XL 90 qd, Diovan 160 bid and hydralazine 50 tid 2. HD as per renal service, outpatient HD arrangement pending insurance coverage
[2017-04-27] MEDS: hydrALAZINE HCL 25 MG TABLET (FP) PO SCH ×3 (05:53→21:33)
[2017-04-27] MEDS ORDERED: PT OWN MED DRAWER 7, Y5N ONE (10:31)
[2017-04-27] MEDS: NIFEdipine E.R. 90 MG TABLET (FP) PO SCH (10:34)
[2017-04-27] MEDS: VALSARTAN 160 MG TABLET (UD) PO SCH ×2 (10:34→21:33)
[2017-04-27] MEDS: CALCIUM 500MG/VIT-D 200 UNITS COMBO TABLET (FP) PO SCH (10:34)
[2017-04-27] MEDS: CALCITRIOL 0.25 MCG CAPSULE (FP) PO SCH (10:34)
[2017-04-27] MEDS: CARVEDILOL 25 MG TABLET (FP) PO SCH ×2 (10:34→21:33)
[2017-04-27] MEDS: FERROUS SO4 325 MG TABLET (FP) PO SCH ×2 (10:34→17:47)
[2017-04-27] MEDS: CALCIUM ACETATE 667 MG CAPSULE (FP) PO SCH ×3 (10:35→17:48)
--- NOTE | 2017-04-27 13:12 | PN ---
Progress Note, Physician History of Present Illness: No chest pain or dyspnea. - Current Medication List Current Medications: Active Medications Calcitriol (Rocaltrol -) 0.5 mcg PO DAILY [facility] Last Admin: 04/27/17 10:34 Dose: 0.5 mcg Calcium Acetate (Phoslo -) 667 mg PO TIDCM [facility] Last Admin: 04/27/17 12:42 Dose: 667 mg Calcium Carbonate/Cholecalciferol (Os-Justin 500+D -) 2 tab PO DAILY [facility] Last Admin: 04/27/17 10:34 Dose: 2 tab Carvedilol (Coreg -) 25 mg PO BID [facility] Last Admin: 04/27/17 10:34 Dose: 25 mg Ferrous Sulfate (Feosol -) 325 mg PO BIDWM [facility] Last Admin: 04/27/17 10:34 Dose: 325 mg Hydralazine HCl (Apresoline -) 50 mg PO TID [facility] Last Admin: 04/27/17 05:53 Dose: 50 mg Nifedipine (Procardia Xl -) 90 mg PO DAILY [facility] Last Admin: 04/27/17 10:34 Dose: 90 mg Valsartan (Diovan -) 160 mg PO BID [facility] Last Admin: 04/27/17 10:34 Dose: 160 mg - Objective Vital Signs: Vital Signs Temperature 98.0 F 04/27/17 10:00 Pulse Rate 84 04/27/17 10:00 Respiratory Rate 20 04/27/17 10:00 Blood Pressure 131/83 04/27/17 10:00 O2 Sat by Pulse Oximetry (%) 98 04/26/17 21:00 Constitutional: Yes: No Distress, Calm Neck: Yes: Supple Cardiovascular: Yes: Regular Rate and Rhythm Respiratory: Yes: Regular, CTA Bilaterally Gastrointestinal: Yes: Normal Bowel Sounds, Soft Edema: No Labs: CBC, BMP 04/26/17 08:36 04/26/17 08:36 INR, PTT INR 1.07 (0.82-1.09) 03/24/17 20:30 Problem List - Problems (1) Acute on chronic kidney failure Code(s): N17.9 - ACUTE KIDNEY FAILURE, UNSPECIFIED N18.9 - CHRONIC KIDNEY DISEASE, UNSPECIFIED (2) ESRD (end stage renal disease) Code(s): N18.6 - END STAGE RENAL DISEASE (3) Hypertensive cardiomyopathy Code(s): I11.9 - HYPERTENSIVE HEART DISEASE WITHOUT HEART FAILURE I42.9 - CARDIOMYOPATHY, UNSPECIFIED Qualifiers: Heart failure presence: without heart failure Qualified Code(s): I11.9 - Hypertensive heart disease without heart failure; I43 - Cardiomyopathy in diseases classified elsewhere (4) Diastolic dysfunction Code(s): I51.9 - HEART DISEASE, UNSPECIFIED (5) Hypocalcemia Code(s): E83.51 - HYPOCALCEMIA (6) Hyperparathyroidism due to renal insufficiency Code(s): N25.81 - SECONDARY HYPERPARATHYROIDISM OF RENAL ORIGIN Assessment/Plan 03/25/2017 Echo: Normal LV size and fxn, mod cLVH, mild LAE, mild TR, RVSP 30-40 mmHg, mild AR, Tr-mild [place] 1. ESRD->HD 2. LV diastolic dysfunction with class I-II NYHA classification LV failure, compensated 3. CAD angina pectoris abnormal EKG with evidence of demand ischemia 4. HTN/HCVD, BP control improved 5. Anemia 6. Hypocalcemia improving 7. Hyperparathyroidism due to renal disease PLAN: 1. Continue Coreg 25 mg bid, Procardia XL 90 qd, Diovan 160 bid and hydralazine 50 tid 2. HD as per renal service, outpatient HD arrangement pending insurance coverage
--- NOTE | 2017-04-27 21:11 | PN ---
Progress Note, Physician History of Present Illness: No new complaints - Current Medication List Current Medications: Active Medications Calcitriol (Rocaltrol -) 0.5 mcg PO DAILY [facility] Last Admin: 04/27/17 10:34 Dose: 0.5 mcg Calcium Acetate (Phoslo -) 667 mg PO TIDCM [facility] Last Admin: 04/27/17 17:48 Dose: 667 mg Calcium Carbonate/Cholecalciferol (Os-Justin 500+D -) 2 tab PO DAILY [facility] Last Admin: 04/27/17 10:34 Dose: 2 tab Carvedilol (Coreg -) 25 mg PO BID [facility] Last Admin: 04/27/17 10:34 Dose: 25 mg Ferrous Sulfate (Feosol -) 325 mg PO BIDWM [facility] Last Admin: 04/27/17 17:47 Dose: 325 mg Hydralazine HCl (Apresoline -) 50 mg PO TID [facility] Last Admin: 04/27/17 15:32 Dose: 50 mg Nifedipine (Procardia Xl -) 90 mg PO DAILY [facility] Last Admin: 04/27/17 10:34 Dose: 90 mg Valsartan (Diovan -) 160 mg PO BID [facility] Last Admin: 04/27/17 10:34 Dose: 160 mg - Objective Vital Signs: Vital Signs Temperature 98.0 F 04/27/17 14:58 Pulse Rate 74 04/27/17 14:58 Respiratory Rate 16 04/27/17 14:58 Blood Pressure 137/77 04/27/17 14:58 O2 Sat by Pulse Oximetry (%) 99 04/27/17 09:00 Constitutional: Yes: No Distress Eyes: Yes: WNL HENT: Yes: WNL Neck: Yes: WNL, Supple Cardiovascular: Yes: WNL, Regular Rate and Rhythm Respiratory: Yes: WNL, Regular, CTA Bilaterally Labs: CBC, BMP 04/26/17 08:36 04/26/17 08:36 INR, PTT INR 1.07 (0.82-1.09) 03/24/17 20:30
[2017-04-28] MEDS: hydrALAZINE HCL 25 MG TABLET (FP) PO SCH ×3 (05:55→22:04)
[2017-04-28] MEDS: FERROUS SO4 325 MG TABLET (FP) PO SCH ×2 (07:56→16:47)
[2017-04-28] MEDS: CALCIUM ACETATE 667 MG CAPSULE (FP) PO SCH ×3 (07:56→16:48)
[2017-04-28] MEDS ORDERED: PT OWN MED DRAWER 7, Y5N ONE (09:57)
[2017-04-28] MEDS: CALCITRIOL 0.25 MCG CAPSULE (FP) PO SCH (10:00)
[2017-04-28] MEDS: NIFEdipine E.R. 90 MG TABLET (FP) PO SCH (10:01)
[2017-04-28] MEDS: CARVEDILOL 25 MG TABLET (FP) PO SCH ×2 (10:01→22:04)
[2017-04-28] MEDS: VALSARTAN 160 MG TABLET (UD) PO SCH ×2 (10:01→22:04)
[2017-04-28] MEDS: CALCIUM 500MG/VIT-D 200 UNITS COMBO TABLET (FP) PO SCH (10:01)
--- NOTE | 2017-04-28 10:28 | PN ---
Progress Note (short form) - Note Progress Note: RENAL Pt is awake and alert denies complaints Last Vital Signs Temp Pulse Resp BP Pulse Ox 97.7 F 70 18 140/93 99 04/28/17 06:00 04/28/17 06:00 04/28/17 06:00 04/28/17 06:00 04/27/17 21:00 lungs clear cvs s1s2 rr abd soft ext no edema has a perm cath on right neuro a+o CBC, BMP 04/26/17 08:36 04/26/17 08:36 Current Medications Generic Name Dose Route Start Last Admin Trade Name Jenelle PRN Reason Stop Dose Admin Calcitriol 0.5 mcg 04/06/17 11:42 04/28/17 10:00 Rocaltrol - PO 0.5 mcg DAILY [facility] Administration Calcium Acetate 667 mg 03/25/17 17:30 04/28/17 07:56 Phoslo - PO 667 mg TIDCM [facility] Administration Calcium Carbonate/Cholecalciferol 2 tab 03/25/17 15:00 04/28/17 10:01 Os-Justin 500+D - PO 2 tab DAILY [facility] Administration Carvedilol 25 mg 03/25/17 10:00 04/28/17 10:01 Coreg - PO 25 mg BID [facility] Administration Ferrous Sulfate 325 mg 03/28/17 17:30 04/28/17 07:56 Feosol - PO 325 mg BIDWM [facility] Administration Hydralazine HCl 50 mg 04/06/17 14:00 04/28/17 05:55 Apresoline - PO 50 mg TID [facility] Administration Nifedipine 90 mg 04/05/17 10:00 04/28/17 10:01 Procardia Xl - PO 90 mg DAILY [facility] Administration Valsartan 160 mg 03/27/17 22:00 04/28/17 10:01 Diovan - PO 160 mg BID [facility] Administration Impression 1. ESRD 2. HTN better controlled 3. hypocalcemia improving 4. anemia 5. hyperparathyroidism due to renal disease Plan HD tiw awaiting placement re hd tomorrow MV
--- NOTE | 2017-04-28 13:15 | PN ---
Progress Note, Physician History of Present Illness: No chest pain or dyspnea. - Current Medication List Current Medications: Active Medications Calcitriol (Rocaltrol -) 0.5 mcg PO DAILY [facility] Last Admin: 04/28/17 10:00 Dose: 0.5 mcg Calcium Acetate (Phoslo -) 667 mg PO TIDCM [facility] Last Admin: 04/28/17 11:44 Dose: 667 mg Calcium Carbonate/Cholecalciferol (Os-Justin 500+D -) 2 tab PO DAILY [facility] Last Admin: 04/28/17 10:01 Dose: 2 tab Carvedilol (Coreg -) 25 mg PO BID [facility] Last Admin: 04/28/17 10:01 Dose: 25 mg Ferrous Sulfate (Feosol -) 325 mg PO BIDWM [facility] Last Admin: 04/28/17 07:56 Dose: 325 mg Hydralazine HCl (Apresoline -) 50 mg PO TID [facility] Last Admin: 04/28/17 05:55 Dose: 50 mg Nifedipine (Procardia Xl -) 90 mg PO DAILY [facility] Last Admin: 04/28/17 10:01 Dose: 90 mg Valsartan (Diovan -) 160 mg PO BID [facility] Last Admin: 04/28/17 10:01 Dose: 160 mg - Objective Vital Signs: Vital Signs Temperature 97.7 F 04/28/17 09:00 Pulse Rate 65 04/28/17 09:00 Respiratory Rate 18 04/28/17 09:00 Blood Pressure 142/87 04/28/17 09:00 O2 Sat by Pulse Oximetry (%) 99 04/28/17 09:00 Constitutional: Yes: No Distress, Calm, Thin Neck: Yes: Supple Cardiovascular: Yes: Regular Rate and Rhythm Respiratory: Yes: Regular, CTA Bilaterally Gastrointestinal: Yes: Normal Bowel Sounds, Soft Edema: No Labs: CBC, BMP 04/26/17 08:36 04/26/17 08:36 INR, PTT INR 1.07 (0.82-1.09) 03/24/17 20:30 Problem List - Problems (1) Acute on chronic kidney failure Code(s): N17.9 - ACUTE KIDNEY FAILURE, UNSPECIFIED N18.9 - CHRONIC KIDNEY DISEASE, UNSPECIFIED (2) ESRD (end stage renal disease) Code(s): N18.6 - END STAGE RENAL DISEASE (3) Hypertensive cardiomyopathy Code(s): I11.9 - HYPERTENSIVE HEART DISEASE WITHOUT HEART FAILURE I42.9 - CARDIOMYOPATHY, UNSPECIFIED Qualifiers: Heart failure presence: without heart failure Qualified Code(s): I11.9 - Hypertensive heart disease without heart failure; I43 - Cardiomyopathy in diseases classified elsewhere (4) Diastolic dysfunction Code(s): I51.9 - HEART DISEASE, UNSPECIFIED (5) Hypocalcemia Code(s): E83.51 - HYPOCALCEMIA (6) Hyperparathyroidism due to renal insufficiency Code(s): N25.81 - SECONDARY HYPERPARATHYROIDISM OF RENAL ORIGIN Assessment/Plan 03/25/2017 Echo: Normal LV size and fxn, mod cLVH, mild LAE, mild TR, RVSP 30-40 mmHg, mild [place], Tr-mild [place] 1. ESRD->HD 2. LV diastolic dysfunction with class I-II NYHA classification LV failure, compensated 3. CAD angina pectoris abnormal EKG with evidence of demand ischemia 4. HTN/HCVD, BP control improved 5. Anemia 6. Hypocalcemia improving 7. Hyperparathyroidism due to renal disease PLAN: 1. Continue Coreg 25 mg bid, Procardia XL 90 qd, Diovan 160 bid and hydralazine 50 tid 2. HD as per renal service, outpatient HD arrangement pending insurance coverage
--- NOTE | 2017-04-28 22:30 | PN ---
Progress Note, Physician History of Present Illness: no complaints - Current Medication List Current Medications: Active Medications Calcitriol (Rocaltrol -) 0.5 mcg PO DAILY [facility] Last Admin: 04/28/17 10:00 Dose: 0.5 mcg Calcium Acetate (Phoslo -) 667 mg PO TIDCM [facility] Last Admin: 04/28/17 16:48 Dose: 667 mg Calcium Carbonate/Cholecalciferol (Os-Justin 500+D -) 2 tab PO DAILY [facility] Last Admin: 04/28/17 10:01 Dose: 2 tab Carvedilol (Coreg -) 25 mg PO BID [facility] Last Admin: 04/28/17 22:04 Dose: 25 mg Ferrous Sulfate (Feosol -) 325 mg PO BIDWM [facility] Last Admin: 04/28/17 16:47 Dose: 325 mg Hydralazine HCl (Apresoline -) 50 mg PO TID [facility] Last Admin: 04/28/17 22:04 Dose: 50 mg Nifedipine (Procardia Xl -) 90 mg PO DAILY [facility] Last Admin: 04/28/17 10:01 Dose: 90 mg Valsartan (Diovan -) 160 mg PO BID [facility] Last Admin: 04/28/17 22:04 Dose: 160 mg - Objective Vital Signs: Vital Signs Temperature 97.6 F 04/28/17 16:15 Pulse Rate 76 04/28/17 16:15 Respiratory Rate 20 04/28/17 21:00 Blood Pressure 140/85 04/28/17 16:15 O2 Sat by Pulse Oximetry (%) 99 04/28/17 21:00 Constitutional: Yes: No Distress HENT: Yes: Atraumatic Neck: Yes: Supple Cardiovascular: Yes: Regular Rate and Rhythm Respiratory: Yes: CTA Bilaterally Gastrointestinal: Yes: Normal Bowel Sounds Extremities: Yes: WNL Neurological: Yes: Alert, Oriented Labs: CBC, BMP 04/26/17 08:36 04/26/17 08:36 INR, PTT INR 1.07 (0.82-1.09) 03/24/17 20:30 Problem List - Problems (1) Acute on chronic kidney failure Assessment/Plan: ON HD renal on board Code(s): N17.9 - ACUTE KIDNEY FAILURE, UNSPECIFIED N18.9 - CHRONIC KIDNEY DISEASE, UNSPECIFIED (2) ESRD (end stage renal disease) Assessment/Plan: on hd Code(s): N18.6 - END STAGE RENAL DISEASE (3) Hypertension Assessment/Plan: ON MEDS STABLE Code(s): I10 - ESSENTIAL (PRIMARY) HYPERTENSION Qualifiers: Hypertension type: essential hypertension Qualified Code(s): I10 - Essential (primary) hypertension Assessment/Plan pt awaiting insurance...dc planning CM NOTES REVIEWED
[2017-04-29] MEDS: hydrALAZINE HCL 25 MG TABLET (FP) PO SCH ×3 (06:11→21:23)
[2017-04-29] MEDS: FERROUS SO4 325 MG TABLET (FP) PO SCH ×2 (08:41→17:22)
[2017-04-29] MEDS: CALCIUM ACETATE 667 MG CAPSULE (FP) PO SCH ×3 (08:42→17:23)
[2017-04-29] MEDS ORDERED: EPOETIN ALFA 3,000 UNIT/1 ML ML IVPUSH ONE (12:30)
--- NOTE | 2017-04-29 14:19 | PN ---
Progress Note, Physician History of Present Illness: Pt seen and examined at bedside. He is getting HD. - Current Medication List Current Medications: Active Medications Calcitriol (Rocaltrol -) 0.5 mcg PO DAILY [facility] Last Admin: 04/28/17 10:00 Dose: 0.5 mcg Calcium Acetate (Phoslo -) 667 mg PO TIDCM [facility] Last Admin: 04/29/17 12:59 Dose: 667 mg Calcium Carbonate/Cholecalciferol (Os-Justin 500+D -) 2 tab PO DAILY [facility] Last Admin: 04/28/17 10:01 Dose: 2 tab Carvedilol (Coreg -) 25 mg PO BID [facility] Last Admin: 04/28/17 22:04 Dose: 25 mg Ferrous Sulfate (Feosol -) 325 mg PO BIDWM [facility] Last Admin: 04/29/17 08:41 Dose: 325 mg Hydralazine HCl (Apresoline -) 50 mg PO TID [facility] Last Admin: 04/29/17 06:11 Dose: 50 mg Nifedipine (Procardia Xl -) 90 mg PO DAILY [facility] Last Admin: 04/28/17 10:01 Dose: 90 mg Valsartan (Diovan -) 160 mg PO BID [facility] Last Admin: 04/28/17 22:04 Dose: 160 mg - Objective Vital Signs: Vital Signs Temperature 97.8 F 04/29/17 10:00 Pulse Rate 62 04/29/17 13:30 Respiratory Rate 18 04/29/17 13:30 Blood Pressure 155/102 04/29/17 13:30 O2 Sat by Pulse Oximetry (%) 99 04/28/17 21:00 Constitutional: Yes: Calm Eyes: Yes: Conjunctiva Clear HENT: Yes: Atraumatic Neck: Yes: Supple Cardiovascular: Yes: S1, S2 Respiratory: Yes: CTA Bilaterally Gastrointestinal: Yes: Normal Bowel Sounds, Soft Genitourinary: Yes: WNL Edema: No Neurological: Yes: Oriented Psychiatric: Yes: Oriented Labs: CBC, BMP 04/26/17 08:36 04/26/17 08:36 INR, PTT INR 1.07 (0.82-1.09) 03/24/17 20:30 Problem List - Problems (1) ESRD (end stage renal disease) Code(s): N18.6 - END STAGE RENAL DISEASE (2) Hypertension Code(s): I10 - ESSENTIAL (PRIMARY) HYPERTENSION Qualifiers: Hypertension type: essential hypertension Qualified Code(s): I10 - Essential (primary) hypertension (3) Hyperparathyroidism due to renal insufficiency Code(s): N25.81 - SECONDARY HYPERPARATHYROIDISM OF RENAL ORIGIN Assessment/Plan Current Medications Generic Name Dose Route Start Last Admin Trade Name Freq PRN Reason Stop Dose Admin Calcitriol 0.5 mcg 04/06/17 11:42 04/28/17 10:00 Rocaltrol - PO 0.5 mcg DAILY [facility] Administration Calcium Acetate 667 mg 03/25/17 17:30 04/29/17 12:59 Phoslo - PO 667 mg TIDCM [facility] Administration Calcium Carbonate/Cholecalciferol 2 tab 03/25/17 15:00 04/28/17 10:01 Os-Justin 500+D - PO 2 tab DAILY [facility] Administration Carvedilol 25 mg 03/25/17 10:00 04/28/17 22:04 Coreg - PO 25 mg BID [facility] Administration Ferrous Sulfate 325 mg 03/28/17 17:30 04/29/17 08:41 Feosol - PO 325 mg BIDWM [facility] Administration Hydralazine HCl 50 mg 04/06/17 14:00 04/29/17 06:11 Apresoline - PO 50 mg TID [facility] Administration Nifedipine 90 mg 04/05/17 10:00 04/28/17 10:01 Procardia Xl - PO 90 mg DAILY [facility] Administration Valsartan 160 mg 03/27/17 22:00 04/28/17 22:04 Diovan - PO 160 mg BID [facility] Administration Impression 1. ESRD 2. HTN 3. hypocalcemia improving 4. anemia 5. hyperparathyroidism due to renal disease Plan - HD today - cont iron supplements - BP is stable - pending placement - cont current meds Dr Ramos
[2017-04-29] MEDS ORDERED: PT OWN MED DRAWER 7, Y5N ONE (15:07)
[2017-04-29] MEDS: CALCIUM 500MG/VIT-D 200 UNITS COMBO TABLET (FP) PO SCH (15:18)
[2017-04-29] MEDS: CARVEDILOL 25 MG TABLET (FP) PO SCH ×2 (15:18→21:24)
[2017-04-29] MEDS: CALCITRIOL 0.25 MCG CAPSULE (FP) PO SCH (15:18)
[2017-04-29] MEDS: VALSARTAN 160 MG TABLET (UD) PO SCH ×2 (15:19→21:23)
[2017-04-29] MEDS: NIFEdipine E.R. 90 MG TABLET (FP) PO SCH (15:19)
--- NOTE | 2017-04-29 19:15 | PN ---
Progress Note, Physician History of Present Illness: no complaints - Current Medication List Current Medications: Active Medications Calcitriol (Rocaltrol -) 0.5 mcg PO DAILY [facility] Last Admin: 04/29/17 15:18 Dose: 0.5 mcg Calcium Acetate (Phoslo -) 667 mg PO TIDCM [facility] Last Admin: 04/29/17 17:23 Dose: 667 mg Calcium Carbonate/Cholecalciferol (Os-Justin 500+D -) 2 tab PO DAILY [facility] Last Admin: 04/29/17 15:18 Dose: 2 tab Carvedilol (Coreg -) 25 mg PO BID [facility] Last Admin: 04/29/17 15:18 Dose: 25 mg Ferrous Sulfate (Feosol -) 325 mg PO BIDWM [facility] Last Admin: 04/29/17 17:22 Dose: 325 mg Hydralazine HCl (Apresoline -) 50 mg PO TID [facility] Last Admin: 04/29/17 15:18 Dose: 50 mg Nifedipine (Procardia Xl -) 90 mg PO DAILY [facility] Last Admin: 04/29/17 15:19 Dose: 90 mg Valsartan (Diovan -) 160 mg PO BID [facility] Last Admin: 04/29/17 15:19 Dose: 160 mg - Objective Vital Signs: Vital Signs Temperature 98.2 F 04/29/17 15:18 Pulse Rate 64 04/29/17 15:18 Respiratory Rate 18 04/29/17 15:18 Blood Pressure 155/93 04/29/17 15:18 O2 Sat by Pulse Oximetry (%) 99 04/29/17 09:00 Constitutional: Yes: No Distress HENT: Yes: Atraumatic Neck: Yes: Supple Cardiovascular: Yes: Regular Rate and Rhythm Respiratory: Yes: CTA Bilaterally Gastrointestinal: Yes: Normal Bowel Sounds Extremities: Yes: WNL Edema: No Neurological: Yes: Alert, Oriented Labs: CBC, BMP 04/26/17 08:36 04/26/17 08:36 INR, PTT INR 1.07 (0.82-1.09) 03/24/17 20:30 Problem List - Problems (1) Acute on chronic kidney failure Assessment/Plan: ON HD renal on board Code(s): N17.9 - ACUTE KIDNEY FAILURE, UNSPECIFIED N18.9 - CHRONIC KIDNEY DISEASE, UNSPECIFIED (2) ESRD (end stage renal disease) Assessment/Plan: on hd Code(s): N18.6 - END STAGE RENAL DISEASE (3) Hypertension Assessment/Plan: ON MEDS STABLE Code(s): I10 - ESSENTIAL (PRIMARY) HYPERTENSION Qualifiers: Hypertension type: essential hypertension Qualified Code(s): I10 - Essential (primary) hypertension Assessment/Plan pt awaiting insurance...dc planning CM NOTES REVIEWED
[2017-04-30] MEDS: hydrALAZINE HCL 25 MG TABLET (FP) PO SCH ×3 (06:03→21:57)
[2017-04-30] MEDS: FERROUS SO4 325 MG TABLET (FP) PO SCH ×2 (08:31→18:03)
[2017-04-30] MEDS: CALCIUM ACETATE 667 MG CAPSULE (FP) PO SCH ×3 (08:31→18:03)
[2017-04-30] MEDS: CARVEDILOL 25 MG TABLET (FP) PO SCH ×2 (10:16→21:57)
[2017-04-30] MEDS: VALSARTAN 160 MG TABLET (UD) PO SCH ×2 (10:16→21:57)
[2017-04-30] MEDS: CALCITRIOL 0.25 MCG CAPSULE (FP) PO SCH (10:17)
[2017-04-30] MEDS: CALCIUM 500MG/VIT-D 200 UNITS COMBO TABLET (FP) PO SCH (10:17)
[2017-04-30] MEDS: NIFEdipine E.R. 90 MG TABLET (FP) PO SCH (10:17)
--- NOTE | 2017-04-30 13:11 | PN ---
Progress Note, Physician History of Present Illness: Pt has no complaints. - Current Medication List Current Medications: Active Medications Calcitriol (Rocaltrol -) 0.5 mcg PO DAILY [facility] Last Admin: 04/30/17 10:17 Dose: 0.5 mcg Calcium Acetate (Phoslo -) 667 mg PO TIDCM [facility] Last Admin: 04/30/17 11:52 Dose: 667 mg Calcium Carbonate/Cholecalciferol (Os-Justin 500+D -) 2 tab PO DAILY [facility] Last Admin: 04/30/17 10:17 Dose: 2 tab Carvedilol (Coreg -) 25 mg PO BID [facility] Last Admin: 04/30/17 10:16 Dose: 25 mg Ferrous Sulfate (Feosol -) 325 mg PO BIDWM [facility] Last Admin: 04/30/17 08:31 Dose: 325 mg Hydralazine HCl (Apresoline -) 50 mg PO TID [facility] Last Admin: 04/30/17 06:03 Dose: 50 mg Nifedipine (Procardia Xl -) 90 mg PO DAILY [facility] Last Admin: 04/30/17 10:17 Dose: 90 mg Valsartan (Diovan -) 160 mg PO BID [facility] Last Admin: 04/30/17 10:16 Dose: 160 mg - Objective Vital Signs: Vital Signs Temperature 98.7 F 04/30/17 06:29 Pulse Rate 72 04/30/17 06:29 Respiratory Rate 20 04/30/17 06:29 Blood Pressure 135/85 04/30/17 06:29 O2 Sat by Pulse Oximetry (%) 99 04/30/17 12:43 Constitutional: Yes: Calm Eyes: Yes: Conjunctiva Clear HENT: Yes: Atraumatic Neck: Yes: Supple Cardiovascular: Yes: S1, S2 Gastrointestinal: Yes: Normal Bowel Sounds Musculoskeletal: Yes: WNL Extremities: Yes: WNL Neurological: Yes: Oriented Labs: CBC, BMP 04/26/17 08:36 04/26/17 08:36 INR, PTT INR 1.07 (0.82-1.09) 03/24/17 20:30 Problem List - Problems (1) ESRD (end stage renal disease) Code(s): N18.6 - END STAGE RENAL DISEASE (2) Hypertension Code(s): I10 - ESSENTIAL (PRIMARY) HYPERTENSION Qualifiers: Hypertension type: essential hypertension Qualified Code(s): I10 - Essential (primary) hypertension (3) Hyperparathyroidism due to renal insufficiency Code(s): N25.81 - SECONDARY HYPERPARATHYROIDISM OF RENAL ORIGIN Assessment/Plan Current Medications Generic Name Dose Route Start Last Admin Trade Name Jenelle PRN Reason Stop Dose Admin Calcitriol 0.5 mcg 04/06/17 11:42 04/30/17 10:17 Rocaltrol - PO 0.5 mcg DAILY [facility] Administration Calcium Acetate 667 mg 03/25/17 17:30 04/30/17 11:52 Phoslo - PO 667 mg TIDCM [facility] Administration Calcium Carbonate/Cholecalciferol 2 tab 03/25/17 15:00 04/30/17 10:17 Os-Justin 500+D - PO 2 tab DAILY [facility] Administration Carvedilol 25 mg 03/25/17 10:00 04/30/17 10:16 Coreg - PO 25 mg BID [facility] Administration Ferrous Sulfate 325 mg 03/28/17 17:30 04/30/17 08:31 Feosol - PO 325 mg BIDWM [facility] Administration Hydralazine HCl 50 mg 04/06/17 14:00 04/30/17 06:03 Apresoline - PO 50 mg TID [facility] Administration Nifedipine 90 mg 04/05/17 10:00 04/30/17 10:17 Procardia Xl - PO 90 mg DAILY [facility] Administration Valsartan 160 mg 03/27/17 22:00 04/30/17 10:16 Diovan - PO 160 mg BID [facility] Administration Impression 1. ESRD 2. HTN 3. hypocalcemia improving 4. anemia 5. hyperparathyroidism due to renal disease Plan - HD In am - cont iron supplements - BP is stable - pending placement - cont current meds Dr Ramos
--- NOTE | 2017-04-30 18:00 | PN ---
Progress Note, Physician History of Present Illness: no complaints - Current Medication List Current Medications: Active Medications Calcitriol (Rocaltrol -) 0.5 mcg PO DAILY [facility] Last Admin: 04/30/17 10:17 Dose: 0.5 mcg Calcium Acetate (Phoslo -) 667 mg PO TIDCM [facility] Last Admin: 04/30/17 11:52 Dose: 667 mg Calcium Carbonate/Cholecalciferol (Os-Justin 500+D -) 2 tab PO DAILY [facility] Last Admin: 04/30/17 10:17 Dose: 2 tab Carvedilol (Coreg -) 25 mg PO BID [facility] Last Admin: 04/30/17 10:16 Dose: 25 mg Epoetin Refugio (Procrit -) 3,000 unit IVPUSH ONCE ONE Stop: 05/01/17 13:12 Ferrous Sulfate (Feosol -) 325 mg PO BIDWM [facility] Last Admin: 04/30/17 08:31 Dose: 325 mg Heparin Sodium (Porcine) (Heparin -) 1,000 unit IVPUSH ONCE ONE Stop: 05/01/17 13:12 Hydralazine HCl (Apresoline -) 50 mg PO TID [facility] Last Admin: 04/30/17 14:38 Dose: 50 mg Nifedipine (Procardia Xl -) 90 mg PO DAILY [facility] Last Admin: 04/30/17 10:17 Dose: 90 mg Valsartan (Diovan -) 160 mg PO BID [facility] Last Admin: 04/30/17 10:16 Dose: 160 mg - Objective Vital Signs: Vital Signs Temperature 98.4 F 04/30/17 14:54 Pulse Rate 75 04/30/17 14:54 Respiratory Rate 18 04/30/17 14:54 Blood Pressure 130/73 04/30/17 14:54 O2 Sat by Pulse Oximetry (%) 99 04/30/17 12:43 Constitutional: Yes: No Distress HENT: Yes: Atraumatic Neck: Yes: Supple Cardiovascular: Yes: Regular Rate and Rhythm Respiratory: Yes: CTA Bilaterally Gastrointestinal: Yes: Normal Bowel Sounds Extremities: Yes: WNL Neurological: Yes: Alert, Oriented Labs: CBC, BMP 04/26/17 08:36 04/26/17 08:36 INR, PTT INR 1.07 (0.82-1.09) 03/24/17 20:30 Problem List - Problems (1) Acute on chronic kidney failure Assessment/Plan: ON HD renal on board Code(s): N17.9 - ACUTE KIDNEY FAILURE, UNSPECIFIED N18.9 - CHRONIC KIDNEY DISEASE, UNSPECIFIED (2) ESRD (end stage renal disease) Assessment/Plan: on hd Code(s): N18.6 - END STAGE RENAL DISEASE (3) Hypertension Assessment/Plan: ON MEDS STABLE Code(s): I10 - ESSENTIAL (PRIMARY) HYPERTENSION Qualifiers: Hypertension type: essential hypertension Qualified Code(s): I10 - Essential (primary) hypertension Assessment/Plan pt awaiting insurance...dc planning CM NOTES REVIEWED
[2017-05-01] MEDS: hydrALAZINE HCL 25 MG TABLET (FP) PO SCH ×3 (05:31→21:25)
[2017-05-01] MEDS: FERROUS SO4 325 MG TABLET (FP) PO SCH ×3 (07:59→17:47)
[2017-05-01] MEDS: CALCIUM ACETATE 667 MG CAPSULE (FP) PO SCH ×4 (07:59→17:47)
[2017-05-01] MEDS ORDERED: EPOETIN ALFA 3,000 UNIT/1 ML ML IVPUSH ONE (09:00)
[2017-05-01] MEDS ORDERED: HEPARIN NA (PORCINE) 5,000 UNITS/ML 1ML VIAL IVPUSH ONE (09:00)
[2017-05-01] MEDS: CARVEDILOL 25 MG TABLET (FP) PO SCH ×2 (12:59→21:25)
[2017-05-01] MEDS: VALSARTAN 160 MG TABLET (UD) PO SCH ×2 (13:00→21:25)
[2017-05-01] MEDS: CALCIUM 500MG/VIT-D 200 UNITS COMBO TABLET (FP) PO SCH (13:00)
[2017-05-01] MEDS: NIFEdipine E.R. 90 MG TABLET (FP) PO SCH (13:01)
[2017-05-01] MEDS: CALCITRIOL 0.25 MCG CAPSULE (FP) PO SCH (13:01)
--- NOTE | 2017-05-01 14:43 | PN ---
Progress Note, Physician History of Present Illness: Pt seen and examined at bedside. He is awake and alert. He is currently getting HD. - Current Medication List Current Medications: Active Medications Calcitriol (Rocaltrol -) 0.5 mcg PO DAILY [facility] Last Admin: 05/01/17 13:01 Dose: 0.5 mcg Calcium Acetate (Phoslo -) 667 mg PO TIDCM [facility] Last Admin: 05/01/17 13:02 Dose: 667 mg Calcium Carbonate/Cholecalciferol (Os-Justin 500+D -) 2 tab PO DAILY [facility] Last Admin: 05/01/17 13:00 Dose: 2 tab Carvedilol (Coreg -) 25 mg PO BID [facility] Last Admin: 05/01/17 12:59 Dose: Not Given Ferrous Sulfate (Feosol -) 325 mg PO BIDWM [facility] Last Admin: 05/01/17 08:31 Dose: 325 mg Hydralazine HCl (Apresoline -) 50 mg PO TID [facility] Last Admin: 05/01/17 13:05 Dose: 50 mg Nifedipine (Procardia Xl -) 90 mg PO DAILY [facility] Last Admin: 05/01/17 13:01 Dose: Not Given Valsartan (Diovan -) 160 mg PO BID [facility] Last Admin: 05/01/17 13:00 Dose: Not Given - Objective Vital Signs: Vital Signs Temperature 97.4 F L 05/01/17 06:55 Pulse Rate 67 05/01/17 11:30 Respiratory Rate 18 05/01/17 11:30 Blood Pressure 141/93 05/01/17 11:30 O2 Sat by Pulse Oximetry (%) 99 04/30/17 21:00 Constitutional: Yes: Calm Eyes: Yes: Conjunctiva Clear HENT: Yes: Atraumatic Neck: Yes: Supple Cardiovascular: Yes: S1, S2 Respiratory: Yes: CTA Bilaterally Gastrointestinal: Yes: Soft Genitourinary: Yes: WNL Musculoskeletal: Yes: WNL Edema: No Neurological: Yes: Oriented Psychiatric: Yes: Oriented Labs: CBC, BMP 04/26/17 08:36 04/26/17 08:36 INR, PTT INR 1.07 (0.82-1.09) 03/24/17 20:30 Problem List - Problems (1) ESRD (end stage renal disease) Code(s): N18.6 - END STAGE RENAL DISEASE (2) Hypertension Code(s): I10 - ESSENTIAL (PRIMARY) HYPERTENSION Qualifiers: Hypertension type: essential hypertension Qualified Code(s): I10 - Essential (primary) hypertension (3) Hyperparathyroidism due to renal insufficiency Code(s): N25.81 - SECONDARY HYPERPARATHYROIDISM OF RENAL ORIGIN Assessment/Plan Current Medications Generic Name Dose Route Start Last Admin Trade Name Murtazaq PRN Reason Stop Dose Admin Calcitriol 0.5 mcg 04/06/17 11:42 05/01/17 13:01 Rocaltrol - PO 0.5 mcg DAILY [facility] Administration Calcium Acetate 667 mg 03/25/17 17:30 05/01/17 13:02 Phoslo - PO 667 mg TIDCM [facility] Administration Calcium Carbonate/Cholecalciferol 2 tab 03/25/17 15:00 05/01/17 13:00 Os-Justin 500+D - PO 2 tab DAILY [facility] Administration Carvedilol 25 mg 03/25/17 10:00 05/01/17 12:59 Coreg - PO Not Given BID [facility] Ferrous Sulfate 325 mg 03/28/17 17:30 05/01/17 08:31 Feosol - PO 325 mg BIDWM [facility] Administration Hydralazine HCl 50 mg 04/06/17 14:00 05/01/17 13:05 Apresoline - PO 50 mg TID [facility] Administration Nifedipine 90 mg 04/05/17 10:00 05/01/17 13:01 Procardia Xl - PO Not Given DAILY [facility] Valsartan 160 mg 03/27/17 22:00 05/01/17 13:00 Diovan - PO Not Given BID [facility] Impression 1. ESRD 2. HTN 3. hypocalcemia improving 4. anemia 5. hyperparathyroidism due to renal disease Plan - HD today - cont iron supplements - BP is stable - pending placement - cont current meds Dr Ramos
--- NOTE | 2017-05-01 20:06 | PN ---
Progress Note, Physician History of Present Illness: no complaints - Current Medication List Current Medications: Active Medications Calcitriol (Rocaltrol -) 0.5 mcg PO DAILY [facility] Last Admin: 05/01/17 13:01 Dose: 0.5 mcg Calcium Acetate (Phoslo -) 667 mg PO TIDCM [facility] Last Admin: 05/01/17 17:47 Dose: 667 mg Calcium Carbonate/Cholecalciferol (Os-Justin 500+D -) 2 tab PO DAILY [facility] Last Admin: 05/01/17 13:00 Dose: 2 tab Carvedilol (Coreg -) 25 mg PO BID [facility] Last Admin: 05/01/17 12:59 Dose: Not Given Ferrous Sulfate (Feosol -) 325 mg PO BIDWM [facility] Last Admin: 05/01/17 17:47 Dose: 325 mg Hydralazine HCl (Apresoline -) 50 mg PO TID [facility] Last Admin: 05/01/17 13:05 Dose: 50 mg Nifedipine (Procardia Xl -) 90 mg PO DAILY [facility] Last Admin: 05/01/17 13:01 Dose: Not Given Valsartan (Diovan -) 160 mg PO BID [facility] Last Admin: 05/01/17 13:00 Dose: Not Given - Objective Vital Signs: Vital Signs Temperature 98.3 F 05/01/17 14:46 Pulse Rate 69 05/01/17 14:46 Respiratory Rate 18 05/01/17 14:46 Blood Pressure 146/91 05/01/17 14:46 O2 Sat by Pulse Oximetry (%) 99 05/01/17 09:00 Constitutional: Yes: No Distress HENT: Yes: Atraumatic Neck: Yes: Supple Cardiovascular: Yes: Regular Rate and Rhythm Respiratory: Yes: CTA Bilaterally Gastrointestinal: Yes: Normal Bowel Sounds Extremities: Yes: WNL Peripheral Pulses WNL: Yes Neurological: Yes: Alert, Oriented Labs: CBC, BMP 04/26/17 08:36 04/26/17 08:36 INR, PTT INR 1.07 (0.82-1.09) 03/24/17 20:30 Problem List - Problems (1) Acute on chronic kidney failure Assessment/Plan: ON HD renal on board Code(s): N17.9 - ACUTE KIDNEY FAILURE, UNSPECIFIED N18.9 - CHRONIC KIDNEY DISEASE, UNSPECIFIED (2) ESRD (end stage renal disease) Assessment/Plan: on hd Code(s): N18.6 - END STAGE RENAL DISEASE (3) Hypertension Assessment/Plan: ON MEDS STABLE Code(s): I10 - ESSENTIAL (PRIMARY) HYPERTENSION Qualifiers: Hypertension type: essential hypertension Qualified Code(s): I10 - Essential (primary) hypertension Assessment/Plan pt awaiting insurance...dc planing pt [facility] [place] [facility] [facility]
[2017-05-02] MEDS: hydrALAZINE HCL 25 MG TABLET (FP) PO SCH ×3 (05:59→22:12)
[2017-05-02] MEDS: CALCIUM ACETATE 667 MG CAPSULE (FP) PO SCH ×3 (08:54→17:11)
[2017-05-02] MEDS: FERROUS SO4 325 MG TABLET (FP) PO SCH ×2 (08:54→17:11)
[2017-05-02] MEDS ORDERED: PT OWN MED DRAWER 7, Y5N ONE (09:27)
[2017-05-02] MEDS: CALCIUM 500MG/VIT-D 200 UNITS COMBO TABLET (FP) PO SCH (09:33)
[2017-05-02] MEDS: VALSARTAN 160 MG TABLET (UD) PO SCH ×2 (09:33→22:14)
[2017-05-02] MEDS: CARVEDILOL 25 MG TABLET (FP) PO SCH ×2 (09:33→22:12)
[2017-05-02] MEDS: NIFEdipine E.R. 90 MG TABLET (FP) PO SCH (09:33)
[2017-05-02] MEDS: CALCITRIOL 0.25 MCG CAPSULE (FP) PO SCH (09:33)
--- NOTE | 2017-05-02 14:38 | PN ---
Progress Note, Physician History of Present Illness: Pt has no complaints. - Current Medication List Current Medications: Active Medications Calcitriol (Rocaltrol -) 0.5 mcg PO DAILY [facility] Last Admin: 05/02/17 09:33 Dose: 0.5 mcg Calcium Acetate (Phoslo -) 667 mg PO TIDCM [facility] Last Admin: 05/02/17 11:45 Dose: 667 mg Calcium Carbonate/Cholecalciferol (Os-Justin 500+D -) 2 tab PO DAILY [facility] Last Admin: 05/02/17 09:33 Dose: 2 tab Carvedilol (Coreg -) 25 mg PO BID [facility] Last Admin: 05/02/17 09:33 Dose: 25 mg Ferrous Sulfate (Feosol -) 325 mg PO BIDWM [facility] Last Admin: 05/02/17 08:54 Dose: 325 mg Hydralazine HCl (Apresoline -) 50 mg PO TID [facility] Last Admin: 05/02/17 13:33 Dose: 50 mg Nifedipine (Procardia Xl -) 90 mg PO DAILY [facility] Last Admin: 05/02/17 09:33 Dose: 90 mg Valsartan (Diovan -) 160 mg PO BID [facility] Last Admin: 05/02/17 09:33 Dose: 160 mg - Objective Vital Signs: Vital Signs Temperature 98.8 F 05/02/17 13:48 Pulse Rate 80 05/02/17 13:48 Respiratory Rate 18 05/02/17 13:48 Blood Pressure 133/88 05/02/17 13:48 O2 Sat by Pulse Oximetry (%) 99 05/02/17 09:00 Constitutional: Yes: Calm Eyes: Yes: Conjunctiva Clear HENT: Yes: Atraumatic Neck: Yes: Supple Cardiovascular: Yes: S1, S2 Respiratory: Yes: CTA Bilaterally Gastrointestinal: Yes: Normal Bowel Sounds, Soft Genitourinary: Yes: WNL Musculoskeletal: Yes: WNL Edema: No Neurological: Yes: Oriented Psychiatric: Yes: Oriented Labs: CBC, BMP 04/26/17 08:36 04/26/17 08:36 INR, PTT INR 1.07 (0.82-1.09) 03/24/17 20:30 Problem List - Problems (1) ESRD (end stage renal disease) Code(s): N18.6 - END STAGE RENAL DISEASE (2) Hypertension Code(s): I10 - ESSENTIAL (PRIMARY) HYPERTENSION Qualifiers: Hypertension type: essential hypertension Qualified Code(s): I10 - Essential (primary) hypertension (3) Hyperparathyroidism due to renal insufficiency Code(s): N25.81 - SECONDARY HYPERPARATHYROIDISM OF RENAL ORIGIN Assessment/Plan Current Medications Generic Name Dose Route Start Last Admin Trade Name Freq PRN Reason Stop Dose Admin Calcitriol 0.5 mcg 04/06/17 11:42 05/02/17 09:33 Rocaltrol - PO 0.5 mcg DAILY [facility] Administration Calcium Acetate 667 mg 03/25/17 17:30 05/02/17 11:45 Phoslo - PO 667 mg TIDCM [facility] Administration Calcium Carbonate/Cholecalciferol 2 tab 03/25/17 15:00 05/02/17 09:33 Os-Justin 500+D - PO 2 tab DAILY [facility] Administration Carvedilol 25 mg 03/25/17 10:00 05/02/17 09:33 Coreg - PO 25 mg BID [facility] Administration Ferrous Sulfate 325 mg 03/28/17 17:30 05/02/17 08:54 Feosol - PO 325 mg BIDWM [facility] Administration Hydralazine HCl 50 mg 04/06/17 14:00 05/02/17 13:33 Apresoline - PO 50 mg TID [facility] Administration Nifedipine 90 mg 04/05/17 10:00 05/02/17 09:33 Procardia Xl - PO 90 mg DAILY [facility] Administration Valsartan 160 mg 03/27/17 22:00 05/02/17 09:33 Diovan - PO 160 mg BID [facility] Administration Impression 1. ESRD 2. HTN 3. hypocalcemia improving 4. anemia 5. hyperparathyroidism due to renal disease Plan - will arrange for HD in am - cont iron supplements - BP is stable - pending placement - cont current meds Dr Ramos
--- NOTE | 2017-05-02 15:42 | PN ---
Progress Note, Physician History of Present Illness: No chest pain or dyspnea. - Current Medication List Current Medications: Active Medications Calcitriol (Rocaltrol -) 0.5 mcg PO DAILY [facility] Last Admin: 05/02/17 09:33 Dose: 0.5 mcg Calcium Acetate (Phoslo -) 667 mg PO TIDCM [facility] Last Admin: 05/02/17 11:45 Dose: 667 mg Calcium Carbonate/Cholecalciferol (Os-Justin 500+D -) 2 tab PO DAILY [facility] Last Admin: 05/02/17 09:33 Dose: 2 tab Carvedilol (Coreg -) 25 mg PO BID [facility] Last Admin: 05/02/17 09:33 Dose: 25 mg Epoetin Refugio (Epogen -) 3,000 units IVPUSH ONCE ONE Stop: 05/03/17 14:39 Ferrous Sulfate (Feosol -) 325 mg PO BIDWM [facility] Last Admin: 05/02/17 08:54 Dose: 325 mg Heparin Sodium (Porcine) (Heparin -) 1,000 unit IVPUSH ONCE ONE Stop: 05/03/17 14:39 Hydralazine HCl (Apresoline -) 50 mg PO TID [facility] Last Admin: 05/02/17 13:33 Dose: 50 mg Nifedipine (Procardia Xl -) 90 mg PO DAILY [facility] Last Admin: 05/02/17 09:33 Dose: 90 mg Valsartan (Diovan -) 160 mg PO BID [facility] Last Admin: 05/02/17 09:33 Dose: 160 mg - Objective Vital Signs: Vital Signs Temperature 98.8 F 05/02/17 13:48 Pulse Rate 80 05/02/17 13:48 Respiratory Rate 18 05/02/17 13:48 Blood Pressure 133/88 05/02/17 13:48 O2 Sat by Pulse Oximetry (%) 99 05/02/17 09:00 Constitutional: Yes: No Distress, Calm Neck: Yes: Supple Cardiovascular: Yes: Regular Rate and Rhythm Respiratory: Yes: Regular, CTA Bilaterally Gastrointestinal: Yes: Normal Bowel Sounds, Soft Edema: No Labs: CBC, BMP 04/26/17 08:36 04/26/17 08:36 INR, PTT INR 1.07 (0.82-1.09) 03/24/17 20:30 Problem List - Problems (1) Acute on chronic kidney failure Code(s): N17.9 - ACUTE KIDNEY FAILURE, UNSPECIFIED N18.9 - CHRONIC KIDNEY DISEASE, UNSPECIFIED (2) ESRD (end stage renal disease) Code(s): N18.6 - END STAGE RENAL DISEASE (3) Hypertensive cardiomyopathy Code(s): I11.9 - HYPERTENSIVE HEART DISEASE WITHOUT HEART FAILURE I42.9 - CARDIOMYOPATHY, UNSPECIFIED Qualifiers: Heart failure presence: without heart failure Qualified Code(s): I11.9 - Hypertensive heart disease without heart failure; I43 - Cardiomyopathy in diseases classified elsewhere (4) Diastolic dysfunction Code(s): I51.9 - HEART DISEASE, UNSPECIFIED (5) Hypocalcemia Code(s): E83.51 - HYPOCALCEMIA (6) Hyperparathyroidism due to renal insufficiency Code(s): N25.81 - SECONDARY HYPERPARATHYROIDISM OF RENAL ORIGIN Assessment/Plan 03/25/2017 Echo: Normal LV size and fxn, mod cLVH, mild LAE, mild TR, RVSP 30-40 mmHg, mild AR, Tr-mild FL 1. ESRD->HD 2. LV diastolic dysfunction with class I-II NYHA classification LV failure, compensated 3. CAD angina pectoris abnormal EKG with evidence of demand ischemia 4. HTN/HCVD, BP control improved 5. Anemia 6. Hypocalcemia improving 7. Hyperparathyroidism due to renal disease PLAN: 1. Continue Coreg 25 mg bid, Procardia XL 90 qd, Diovan 160 bid and hydralazine 50 tid 2. HD as per renal service, outpatient HD arrangement pending insurance coverage
--- NOTE | 2017-05-02 18:41 | PN ---
Progress Note, Physician History of Present Illness: no complaints - Current Medication List Current Medications: Active Medications Calcitriol (Rocaltrol -) 0.5 mcg PO DAILY [facility] Last Admin: 05/02/17 09:33 Dose: 0.5 mcg Calcium Acetate (Phoslo -) 667 mg PO TIDCM [facility] Last Admin: 05/02/17 17:11 Dose: 667 mg Calcium Carbonate/Cholecalciferol (Os-Justin 500+D -) 2 tab PO DAILY [facility] Last Admin: 05/02/17 09:33 Dose: 2 tab Carvedilol (Coreg -) 25 mg PO BID [facility] Last Admin: 05/02/17 09:33 Dose: 25 mg Epoetin Refugio (Epogen -) 3,000 units IVPUSH ONCE ONE Stop: 05/03/17 14:39 Ferrous Sulfate (Feosol -) 325 mg PO BIDWM [facility] Last Admin: 05/02/17 17:11 Dose: 325 mg Heparin Sodium (Porcine) (Heparin -) 1,000 unit IVPUSH ONCE ONE Stop: 05/03/17 14:39 Hydralazine HCl (Apresoline -) 50 mg PO TID [facility] Last Admin: 05/02/17 13:33 Dose: 50 mg Nifedipine (Procardia Xl -) 90 mg PO DAILY [facility] Last Admin: 05/02/17 09:33 Dose: 90 mg Valsartan (Diovan -) 160 mg PO BID [facility] Last Admin: 05/02/17 09:33 Dose: 160 mg - Objective Vital Signs: Vital Signs Temperature 98.8 F 05/02/17 13:48 Pulse Rate 80 05/02/17 13:48 Respiratory Rate 18 05/02/17 13:48 Blood Pressure 133/88 05/02/17 13:48 O2 Sat by Pulse Oximetry (%) 99 05/02/17 09:00 Constitutional: Yes: No Distress HENT: Yes: Atraumatic Neck: Yes: Supple Cardiovascular: Yes: Regular Rate and Rhythm Respiratory: Yes: CTA Bilaterally Gastrointestinal: Yes: Normal Bowel Sounds Extremities: Yes: WNL Neurological: Yes: Alert, Oriented Labs: CBC, BMP 04/26/17 08:36 04/26/17 08:36 INR, PTT INR 1.07 (0.82-1.09) 03/24/17 20:30 Problem List - Problems (1) Acute on chronic kidney failure Assessment/Plan: ON HD renal on board Code(s): N17.9 - ACUTE KIDNEY FAILURE, UNSPECIFIED N18.9 - CHRONIC KIDNEY DISEASE, UNSPECIFIED (2) ESRD (end stage renal disease) Assessment/Plan: on hd Code(s): N18.6 - END STAGE RENAL DISEASE (3) Hypertension Assessment/Plan: ON MEDS STABLE Code(s): I10 - ESSENTIAL (PRIMARY) HYPERTENSION Qualifiers: Hypertension type: essential hypertension Qualified Code(s): I10 - Essential (primary) hypertension Assessment/Plan pt awaiting insurance...dc planing [facility]
[2017-05-03] MEDS: hydrALAZINE HCL 25 MG TABLET (FP) PO SCH ×3 (05:32→22:09)
[2017-05-03] MEDS: CALCIUM ACETATE 667 MG CAPSULE (FP) PO SCH ×3 (08:29→17:40)
[2017-05-03] MEDS: FERROUS SO4 325 MG TABLET (FP) PO SCH ×2 (08:29→17:40)
[2017-05-03] MEDS ORDERED: HEPARIN NA (PORCINE) 5,000 UNITS/ML 1ML VIAL IVPUSH ONE (08:30)
[2017-05-03] MEDS ORDERED: EPOETIN ALFA 3,000 UNIT/1 ML ML IVPUSH ONE (09:00)
[2017-05-03 09:39] LABS: MCH 26.4 pg (25.7-33.7); MCHC 32.9 g/dl (32.0-35.9); MEAN CELL VOLUME 80.1 fl (80-96); MEAN PLT VOLUME 8.2 fl (7.5-11.1); PLATELET COUNT 196 K/MM3 (134-434); RDW 17.8 % (11.9-15.9); WHITE BLOOD COUNT 5.5 K/mm3 (4.0-10.0)
[2017-05-03] MEDS: VALSARTAN 160 MG TABLET (UD) PO SCH ×2 (10:14→22:09)
[2017-05-03] MEDS: CARVEDILOL 25 MG TABLET (FP) PO SCH ×2 (10:14→22:09)
[2017-05-03] MEDS: NIFEdipine E.R. 90 MG TABLET (FP) PO SCH (10:15)
[2017-05-03] MEDS: CALCITRIOL 0.25 MCG CAPSULE (FP) PO SCH (10:15)
[2017-05-03] MEDS: CALCIUM 500MG/VIT-D 200 UNITS COMBO TABLET (FP) PO SCH (10:15)
[2017-05-03 10:23] LABS: ALBUMIN 3.7 g/dl (3.4-5.0); CALCIUM 8.7 mg/dL (8.5-10.1)
[2017-05-03 10:34] LABS: BILIRUBIN,TOTAL 0.3 mg/dL (0.2-1.0); COCKROFT - GAULT 8.4
[2017-05-03 10:52] LABS: CREATININE 9.7 mg/dL (0.7-1.3)
--- NOTE | 2017-05-03 11:32 | PN ---
Progress Note, Physician History of Present Illness: Renal f/u Pt seen at HD earlier No complaints offered at that time BP diastolic was ~ 100 - Current Medication List Current Medications: Active Medications Calcitriol (Rocaltrol -) 0.5 mcg PO DAILY [facility] Last Admin: 05/03/17 10:15 Dose: Not Given Calcium Acetate (Phoslo -) 667 mg PO TIDCM [facility] Last Admin: 05/03/17 08:29 Dose: 667 mg Calcium Carbonate/Cholecalciferol (Os-Justin 500+D -) 2 tab PO DAILY [facility] Last Admin: 05/03/17 10:15 Dose: Not Given Carvedilol (Coreg -) 25 mg PO BID [facility] Last Admin: 05/03/17 10:14 Dose: Not Given Ferrous Sulfate (Feosol -) 325 mg PO BIDWM [facility] Last Admin: 05/03/17 08:29 Dose: 325 mg Hydralazine HCl (Apresoline -) 50 mg PO TID [facility] Last Admin: 05/03/17 05:32 Dose: 50 mg Nifedipine (Procardia Xl -) 90 mg PO DAILY [facility] Last Admin: 05/03/17 10:15 Dose: Not Given Valsartan (Diovan -) 160 mg PO BID [facility] Last Admin: 05/03/17 10:14 Dose: Not Given - Objective Vital Signs: Vital Signs Temperature 98.3 F 05/03/17 08:55 Pulse Rate 73 05/03/17 09:00 Respiratory Rate 18 05/03/17 09:00 Blood Pressure 167/104 05/03/17 09:00 O2 Sat by Pulse Oximetry (%) 99 05/02/17 09:00 Constitutional: Yes: No Distress Cardiovascular: Yes: Murmur, S1, S2 Respiratory: Yes: CTA Bilaterally Gastrointestinal: Yes: Soft. No: Tenderness, Rebound Edema: No Labs: CBC, BMP 05/03/17 09:00 05/03/17 09:00 INR, PTT INR 1.07 (0.82-1.09) 03/24/17 20:30 Assessment/Plan Impression 1. ESRD 2. HTN 3. S/P hypocalcemia 4. Anemia stable 5. Secondary hyperparathyroidism Plan - Increase hydralazine to [address] Damico
--- NOTE | 2017-05-03 17:03 | PN ---
Progress Note, Physician History of Present Illness: no complaints - Current Medication List Current Medications: Active Medications Calcitriol (Rocaltrol -) 0.5 mcg PO DAILY [facility] Last Admin: 05/03/17 10:15 Dose: Not Given Calcium Acetate (Phoslo -) 667 mg PO TIDCM [facility] Last Admin: 05/03/17 12:30 Dose: Not Given Calcium Carbonate/Cholecalciferol (Os-Justin 500+D -) 2 tab PO DAILY [facility] Last Admin: 05/03/17 10:15 Dose: Not Given Carvedilol (Coreg -) 25 mg PO BID [facility] Last Admin: 05/03/17 10:14 Dose: Not Given Ferrous Sulfate (Feosol -) 325 mg PO BIDWM [facility] Last Admin: 05/03/17 08:29 Dose: 325 mg Hydralazine HCl (Apresoline -) 100 mg PO TID [facility] Last Admin: 05/03/17 14:32 Dose: 100 mg Nifedipine (Procardia Xl -) 90 mg PO DAILY [facility] Last Admin: 05/03/17 10:15 Dose: Not Given Valsartan (Diovan -) 160 mg PO BID [facility] Last Admin: 05/03/17 10:14 Dose: Not Given - Objective Vital Signs: Vital Signs Temperature 97.5 F L 05/03/17 14:49 Pulse Rate 72 05/03/17 14:49 Respiratory Rate 18 05/03/17 14:49 Blood Pressure 145/82 05/03/17 14:49 O2 Sat by Pulse Oximetry (%) 99 05/03/17 14:48 Constitutional: Yes: No Distress HENT: Yes: Atraumatic Neck: Yes: Supple Cardiovascular: Yes: Regular Rate and Rhythm Respiratory: Yes: CTA Bilaterally Gastrointestinal: Yes: Normal Bowel Sounds Extremities: Yes: WNL Neurological: Yes: Alert, Oriented Labs: CBC, BMP 05/03/17 09:00 05/03/17 09:00 INR, PTT INR 1.07 (0.82-1.09) 03/24/17 20:30 Problem List - Problems (1) Acute on chronic kidney failure Assessment/Plan: ON HD renal on board Code(s): N17.9 - ACUTE KIDNEY FAILURE, UNSPECIFIED N18.9 - CHRONIC KIDNEY DISEASE, UNSPECIFIED (2) ESRD (end stage renal disease) Assessment/Plan: on hd Code(s): N18.6 - END STAGE RENAL DISEASE (3) Hypertension Assessment/Plan: ON MEDS STABLE Code(s): I10 - ESSENTIAL (PRIMARY) HYPERTENSION Qualifiers: Hypertension type: essential hypertension Qualified Code(s): I10 - Essential (primary) hypertension Assessment/Plan pt awaiting insurance...dc planing [facility]
--- NOTE | 2017-05-03 20:25 | PN ---
Progress Note, Physician Chief Complaint: Events noted Seen during dialysis History of Present Illness: Patient was seen and examined. Awake and alert. Chart was reviewed Denies chest pain, SOB or palpitations - Current Medication List Current Medications: Active Medications Calcitriol (Rocaltrol -) 0.5 mcg PO DAILY [facility] Last Admin: 05/03/17 10:15 Dose: Not Given Calcium Acetate (Phoslo -) 667 mg PO TIDCM [facility] Last Admin: 05/03/17 17:40 Dose: 667 mg Calcium Carbonate/Cholecalciferol (Os-Justin 500+D -) 2 tab PO DAILY [facility] Last Admin: 05/03/17 10:15 Dose: Not Given Carvedilol (Coreg -) 25 mg PO BID [facility] Last Admin: 05/03/17 10:14 Dose: Not Given Ferrous Sulfate (Feosol -) 325 mg PO BIDWM [facility] Last Admin: 05/03/17 17:40 Dose: 325 mg Hydralazine HCl (Apresoline -) 100 mg PO TID [facility] Last Admin: 05/03/17 14:32 Dose: 100 mg Nifedipine (Procardia Xl -) 90 mg PO DAILY [facility] Last Admin: 05/03/17 10:15 Dose: Not Given Valsartan (Diovan -) 160 mg PO BID [facility] Last Admin: 05/03/17 10:14 Dose: Not Given - Objective Vital Signs: Vital Signs Temperature 98.8 F 05/03/17 17:06 Pulse Rate 72 05/03/17 14:49 Respiratory Rate 18 05/03/17 14:49 Blood Pressure 145/82 05/03/17 14:49 O2 Sat by Pulse Oximetry (%) 99 05/03/17 14:48 HENT: Yes: Atraumatic Neck: Yes: Supple Cardiovascular: Yes: Regular Rate and Rhythm, S1, S2. No: Murmur Respiratory: Yes: CTA Bilaterally Gastrointestinal: Yes: Normal Bowel Sounds, Soft. No: Tenderness Edema: No Labs: CBC, BMP 05/03/17 09:00 05/03/17 09:00 Problem List - Problems (1) Acute on chronic kidney failure Code(s): N17.9 - ACUTE KIDNEY FAILURE, UNSPECIFIED N18.9 - CHRONIC KIDNEY DISEASE, UNSPECIFIED (2) Diastolic dysfunction Code(s): I51.9 - HEART DISEASE, UNSPECIFIED (3) Hypertension Code(s): I10 - ESSENTIAL (PRIMARY) HYPERTENSION Qualifiers: Hypertension type: essential hypertension Qualified Code(s): I10 - Essential (primary) hypertension Assessment/Plan 1. ESRD on HD 2. LV diastolic dysfunction with class I-II NYHA classification LV failure, compensated 3. CAD angina pectoris abnormal EKG with evidence of demand ischemia 4. HTN/HCVD 5. Anemia 6. Hypocalcemia improving 7. Hyperparathyroidism due to renal disease PLAN: 1. Continue Coreg, Procardia XL, Diovan and Hydralazine 2. HD as per renal service, outpatient HD arrangement pending insurance coverage Mateus Singh MD
[2017-05-04] MEDS: hydrALAZINE HCL 25 MG TABLET (FP) PO SCH ×3 (06:00→21:38)
[2017-05-04] MEDS: FERROUS SO4 325 MG TABLET (FP) PO SCH ×2 (08:04→17:54)
[2017-05-04] MEDS: CALCIUM ACETATE 667 MG CAPSULE (FP) PO SCH ×3 (08:04→17:54)
[2017-05-04] MEDS ORDERED: PT OWN MED DRAWER 7, Y5N ONE (08:52)
[2017-05-04] MEDS: CALCIUM 500MG/VIT-D 200 UNITS COMBO TABLET (FP) PO SCH (09:20)
[2017-05-04] MEDS: CALCITRIOL 0.25 MCG CAPSULE (FP) PO SCH (09:20)
[2017-05-04] MEDS: VALSARTAN 160 MG TABLET (UD) PO SCH ×2 (09:20→21:38)
[2017-05-04] MEDS: NIFEdipine E.R. 90 MG TABLET (FP) PO SCH (09:20)
[2017-05-04] MEDS: CARVEDILOL 25 MG TABLET (FP) PO SCH ×2 (09:20→21:38)
--- NOTE | 2017-05-04 11:12 | PN ---
Progress Note, Physician - Current Medication List Current Medications: Active Medications Calcitriol (Rocaltrol -) 0.5 mcg PO DAILY [facility] Last Admin: 05/04/17 09:20 Dose: 0.5 mcg Calcium Acetate (Phoslo -) 667 mg PO TIDCM [facility] Last Admin: 05/04/17 08:04 Dose: 667 mg Calcium Carbonate/Cholecalciferol (Os-Justin 500+D -) 2 tab PO DAILY [facility] Last Admin: 05/04/17 09:20 Dose: 2 tab Carvedilol (Coreg -) 25 mg PO BID [facility] Last Admin: 05/04/17 09:20 Dose: 25 mg Ferrous Sulfate (Feosol -) 325 mg PO BIDWM [facility] Last Admin: 05/04/17 08:04 Dose: 325 mg Hydralazine HCl (Apresoline -) 100 mg PO TID [facility] Last Admin: 05/04/17 06:00 Dose: 100 mg Nifedipine (Procardia Xl -) 90 mg PO DAILY [facility] Last Admin: 05/04/17 09:20 Dose: 90 mg Valsartan (Diovan -) 160 mg PO BID [facility] Last Admin: 05/04/17 09:20 Dose: 160 mg - Objective Vital Signs: Vital Signs Temperature 98.4 F 05/04/17 10:00 Pulse Rate 81 05/04/17 10:00 Respiratory Rate 18 05/04/17 10:00 Blood Pressure 150/94 05/04/17 10:00 O2 Sat by Pulse Oximetry (%) 99 05/03/17 21:00 Constitutional: Yes: No Distress HENT: Yes: Atraumatic Neck: Yes: Supple Cardiovascular: Yes: Regular Rate and Rhythm Respiratory: Yes: CTA Bilaterally Gastrointestinal: Yes: Normal Bowel Sounds Extremities: Yes: WNL Neurological: Yes: Alert, Oriented Labs: CBC, BMP 05/03/17 09:00 05/03/17 09:00 INR, PTT INR 1.07 (0.82-1.09) 03/24/17 20:30 Problem List - Problems (1) Acute on chronic kidney failure Assessment/Plan: ON HD renal on board Code(s): N17.9 - ACUTE KIDNEY FAILURE, UNSPECIFIED N18.9 - CHRONIC KIDNEY DISEASE, UNSPECIFIED (2) ESRD (end stage renal disease) Assessment/Plan: on hd Code(s): N18.6 - END STAGE RENAL DISEASE (3) Hypertension Assessment/Plan: ON MEDS STABLE Code(s): I10 - ESSENTIAL (PRIMARY) HYPERTENSION Qualifiers: Hypertension type: essential hypertension Qualified Code(s): I10 - Essential (primary) hypertension Assessment/Plan pt awaiting insurance...dc planing pt [place] with her dc planning please
--- NOTE | 2017-05-04 13:08 | PN ---
Progress Note, Physician History of Present Illness: Renal f/u Pt without complaints BP better today - Current Medication List Current Medications: Active Medications Calcitriol (Rocaltrol -) 0.5 mcg PO DAILY [facility] Last Admin: 05/04/17 09:20 Dose: 0.5 mcg Calcium Acetate (Phoslo -) 667 mg PO TIDCM [facility] Last Admin: 05/04/17 11:58 Dose: 667 mg Calcium Carbonate/Cholecalciferol (Os-Justin 500+D -) 2 tab PO DAILY [facility] Last Admin: 05/04/17 09:20 Dose: 2 tab Carvedilol (Coreg -) 25 mg PO BID [facility] Last Admin: 05/04/17 09:20 Dose: 25 mg Ferrous Sulfate (Feosol -) 325 mg PO BIDWM [facility] Last Admin: 05/04/17 08:04 Dose: 325 mg Hydralazine HCl (Apresoline -) 100 mg PO TID [facility] Last Admin: 05/04/17 06:00 Dose: 100 mg Nifedipine (Procardia Xl -) 90 mg PO DAILY [facility] Last Admin: 05/04/17 09:20 Dose: 90 mg Valsartan (Diovan -) 160 mg PO BID [facility] Last Admin: 05/04/17 09:20 Dose: 160 mg - Objective Vital Signs: Vital Signs Temperature 98.4 F 05/04/17 10:00 Pulse Rate 81 05/04/17 10:00 Respiratory Rate 18 05/04/17 11:31 Blood Pressure 150/94 05/04/17 10:00 O2 Sat by Pulse Oximetry (%) 99 05/04/17 11:31 Constitutional: Yes: No Distress Cardiovascular: Yes: S1, S2 Respiratory: Yes: CTA Bilaterally Gastrointestinal: Yes: Soft. No: Tenderness, Rebound Edema: No Labs: CBC, BMP 05/03/17 09:00 05/03/17 09:00 INR, PTT INR 1.07 (0.82-1.09) 03/24/17 20:30 Assessment/Plan Impression 1. ESRD 2. HTN 3. S/P hypocalcemia 4. Anemia stable 5. Secondary hyperparathyroidism Plan - Next HD 05/06 Dr Damico
[2017-05-05] MEDS: hydrALAZINE HCL 25 MG TABLET (FP) PO SCH ×3 (06:20→21:37)
[2017-05-05] MEDS: CALCIUM ACETATE 667 MG CAPSULE (FP) PO SCH ×3 (08:25→17:21)
[2017-05-05] MEDS: FERROUS SO4 325 MG TABLET (FP) PO SCH ×2 (08:25→17:21)
[2017-05-05] MEDS ORDERED: PT OWN MED DRAWER 7, Y5N ONE (09:28)
[2017-05-05] MEDS: CALCIUM 500MG/VIT-D 200 UNITS COMBO TABLET (FP) PO SCH (09:30)
[2017-05-05] MEDS: NIFEdipine E.R. 90 MG TABLET (FP) PO SCH (09:30)
[2017-05-05] MEDS: CALCITRIOL 0.25 MCG CAPSULE (FP) PO SCH (09:30)
[2017-05-05] MEDS: VALSARTAN 160 MG TABLET (UD) PO SCH ×2 (09:30→21:37)
[2017-05-05] MEDS: CARVEDILOL 25 MG TABLET (FP) PO SCH ×2 (09:30→21:37)
--- NOTE | 2017-05-05 12:41 | PN ---
Progress Note, Physician History of Present Illness: Pt seen and examined. He has no complaints. - Current Medication List Current Medications: Active Medications Calcitriol (Rocaltrol -) 0.5 mcg PO DAILY [facility] Last Admin: 05/05/17 09:30 Dose: 0.5 mcg Calcium Acetate (Phoslo -) 667 mg PO TIDCM [facility] Last Admin: 05/05/17 12:11 Dose: 667 mg Calcium Carbonate/Cholecalciferol (Os-Justin 500+D -) 2 tab PO DAILY [facility] Last Admin: 05/05/17 09:30 Dose: 2 tab Carvedilol (Coreg -) 25 mg PO BID [facility] Last Admin: 05/05/17 09:30 Dose: 25 mg Ferrous Sulfate (Feosol -) 325 mg PO BIDWM [facility] Last Admin: 05/05/17 08:25 Dose: 325 mg Hydralazine HCl (Apresoline -) 100 mg PO TID [facility] Last Admin: 05/05/17 06:20 Dose: 100 mg Nifedipine (Procardia Xl -) 90 mg PO DAILY [facility] Last Admin: 05/05/17 09:30 Dose: 90 mg Valsartan (Diovan -) 160 mg PO BID [facility] Last Admin: 05/05/17 09:30 Dose: 160 mg - Objective Vital Signs: Vital Signs Temperature 97.9 F 05/05/17 06:00 Pulse Rate 68 05/05/17 06:00 Respiratory Rate 18 05/05/17 06:00 Blood Pressure 138/84 05/05/17 06:00 O2 Sat by Pulse Oximetry (%) 99 05/04/17 21:00 Constitutional: Yes: Calm Eyes: Yes: Conjunctiva Clear HENT: Yes: Atraumatic Neck: Yes: Supple Cardiovascular: Yes: S1, S2 Gastrointestinal: Yes: Normal Bowel Sounds Genitourinary: Yes: WNL Musculoskeletal: Yes: WNL Edema: No Neurological: Yes: Oriented Psychiatric: Yes: Oriented Labs: CBC, BMP 05/03/17 09:00 05/03/17 09:00 INR, PTT INR 1.07 (0.82-1.09) 03/24/17 20:30 Problem List - Problems (1) ESRD (end stage renal disease) Code(s): N18.6 - END STAGE RENAL DISEASE (2) Hypertension Code(s): I10 - ESSENTIAL (PRIMARY) HYPERTENSION Qualifiers: Hypertension type: essential hypertension Qualified Code(s): I10 - Essential (primary) hypertension (3) Hyperparathyroidism due to renal insufficiency Code(s): N25.81 - SECONDARY HYPERPARATHYROIDISM OF RENAL ORIGIN Assessment/Plan Current Medications Generic Name Dose Route Start Last Admin Trade Name Jenelle PRN Reason Stop Dose Admin Calcitriol 0.5 mcg 04/06/17 11:42 05/05/17 09:30 Rocaltrol - PO 0.5 mcg DAILY [facility] Administration Calcium Acetate 667 mg 03/25/17 17:30 05/05/17 12:11 Phoslo - PO 667 mg TIDCM [facility] Administration Calcium Carbonate/Cholecalciferol 2 tab 03/25/17 15:00 05/05/17 09:30 Os-Justin 500+D - PO 2 tab DAILY [facility] Administration Carvedilol 25 mg 03/25/17 10:00 05/05/17 09:30 Coreg - PO 25 mg BID [facility] Administration Ferrous Sulfate 325 mg 03/28/17 17:30 05/05/17 08:25 Feosol - PO 325 mg BIDWM [facility] Administration Hydralazine HCl 100 mg 05/03/17 11:36 05/05/17 06:20 Apresoline - PO 100 mg TID [facility] Administration Nifedipine 90 mg 04/05/17 10:00 05/05/17 09:30 Procardia Xl - PO 90 mg DAILY [facility] Administration Valsartan 160 mg 03/27/17 22:00 05/05/17 09:30 Diovan - PO 160 mg BID [facility] Administration Impression 1. ESRD 2. HTN 3. hypocalcemia improving 4. anemia 5. hyperparathyroidism due to renal disease Plan - HD tomorrow - cont iron supplements - pending placement - cont current meds Dr Ramos
--- NOTE | 2017-05-05 20:29 | PN ---
Progress Note, Physician History of Present Illness: no complaints - Current Medication List Current Medications: Active Medications Calcitriol (Rocaltrol -) 0.5 mcg PO DAILY [facility] Last Admin: 05/05/17 09:30 Dose: 0.5 mcg Calcium Acetate (Phoslo -) 667 mg PO TIDCM [facility] Last Admin: 05/05/17 17:21 Dose: 667 mg Calcium Carbonate/Cholecalciferol (Os-Justin 500+D -) 2 tab PO DAILY [facility] Last Admin: 05/05/17 09:30 Dose: 2 tab Carvedilol (Coreg -) 25 mg PO BID [facility] Last Admin: 05/05/17 09:30 Dose: 25 mg Epoetin Refugio (Epogen -) 3,000 units IVPUSH ONCE ONE Stop: 05/06/17 12:42 Ferrous Sulfate (Feosol -) 325 mg PO BIDWM [facility] Last Admin: 05/05/17 17:21 Dose: 325 mg Heparin Sodium (Porcine) (Heparin -) 1,000 unit IVPUSH ONCE ONE Stop: 05/06/17 12:42 Hydralazine HCl (Apresoline -) 100 mg PO TID [facility] Last Admin: 05/05/17 15:06 Dose: 100 mg Nifedipine (Procardia Xl -) 90 mg PO DAILY [facility] Last Admin: 05/05/17 09:30 Dose: 90 mg Valsartan (Diovan -) 160 mg PO BID [facility] Last Admin: 05/05/17 09:30 Dose: 160 mg - Objective Vital Signs: Vital Signs Temperature 98.9 F 05/05/17 17:11 Pulse Rate 83 05/05/17 17:11 Respiratory Rate 20 05/05/17 17:11 Blood Pressure 141/90 05/05/17 17:11 O2 Sat by Pulse Oximetry (%) 100 05/05/17 09:00 Constitutional: Yes: No Distress HENT: Yes: Atraumatic Neck: Yes: Supple Cardiovascular: Yes: Regular Rate and Rhythm Respiratory: Yes: CTA Bilaterally Gastrointestinal: Yes: Normal Bowel Sounds Extremities: Yes: WNL Neurological: Yes: Alert, Oriented Labs: CBC, BMP 05/03/17 09:00 05/03/17 09:00 INR, PTT INR 1.07 (0.82-1.09) 03/24/17 20:30 Problem List - Problems (1) Acute on chronic kidney failure Assessment/Plan: ON HD renal on board Code(s): N17.9 - ACUTE KIDNEY FAILURE, UNSPECIFIED N18.9 - CHRONIC KIDNEY DISEASE, UNSPECIFIED (2) ESRD (end stage renal disease) Assessment/Plan: on hd Code(s): N18.6 - END STAGE RENAL DISEASE (3) Hypertension Assessment/Plan: ON MEDS STABLE Code(s): I10 - ESSENTIAL (PRIMARY) HYPERTENSION Qualifiers: Hypertension type: essential hypertension Qualified Code(s): I10 - Essential (primary) hypertension Assessment/Plan pt awaiting insurance...dc planing [place] [facility] [place] [facility] dc planning please
[2017-05-06] MEDS ORDERED: PT OWN MED DRAWER 7, Y5N ONE ×2 (05:29→12:45)
[2017-05-06] MEDS: hydrALAZINE HCL 50 MG TABLET (FP) PO SCH ×3 (05:41→21:39)
[2017-05-06] MEDS: CALCIUM ACETATE 667 MG CAPSULE (FP) PO SCH ×3 (08:29→18:53)
[2017-05-06] MEDS: FERROUS SO4 325 MG TABLET (FP) PO SCH ×2 (08:30→18:53)
[2017-05-06] MEDS ORDERED: HEPARIN NA (PORCINE) 5,000 UNITS/ML 1ML VIAL IVPUSH ONE (09:00)
[2017-05-06] MEDS ORDERED: EPOETIN ALFA 3,000 UNIT/1 ML ML IVPUSH ONE (09:00)
[2017-05-06 10:21] LABS: MCH 26.6 pg (25.7-33.7); MEAN CELL VOLUME 80.4 fl (80-96); MEAN PLT VOLUME 7.8 fl (7.5-11.1); PLATELET COUNT 183 K/MM3 (134-434); RDW 17.5 % (11.9-15.9); WHITE BLOOD COUNT 6.1 K/mm3 (4.0-10.0)
[2017-05-06 10:42] LABS: CALCIUM 8.8 mg/dL (8.5-10.1); COCKROFT - GAULT 7.54
[2017-05-06 11:00] LABS: CREATININE 11.7 mg/dL (0.7-1.3)
[2017-05-06] MEDS: CARVEDILOL 25 MG TABLET (FP) PO SCH ×2 (12:46→21:39)
[2017-05-06] MEDS: CALCITRIOL 0.25 MCG CAPSULE (FP) PO SCH (12:46)
[2017-05-06] MEDS: VALSARTAN 160 MG TABLET (UD) PO SCH ×2 (12:46→21:39)
[2017-05-06] MEDS: NIFEdipine E.R. 90 MG TABLET (FP) PO SCH (12:46)
[2017-05-06] MEDS: CALCIUM 500MG/VIT-D 200 UNITS COMBO TABLET (FP) PO SCH (12:46)
[2017-05-06 13:34] LABS: CREATININE 4.1 mg/dL (0.7-1.3)
--- NOTE | 2017-05-06 14:30 | PN ---
Progress Note, Physician History of Present Illness: Pt seen and examined at bedside. He tolerated HD today. - Current Medication List Current Medications: Active Medications Calcitriol (Rocaltrol -) 0.5 mcg PO DAILY [facility] Last Admin: 05/06/17 12:46 Dose: 0.5 mcg Calcium Acetate (Phoslo -) 667 mg PO TIDCM [facility] Last Admin: 05/06/17 12:46 Dose: 667 mg Calcium Carbonate/Cholecalciferol (Os-Justin 500+D -) 2 tab PO DAILY [facility] Last Admin: 05/06/17 12:46 Dose: 2 tab Carvedilol (Coreg -) 25 mg PO BID [facility] Last Admin: 05/06/17 12:46 Dose: 25 mg Ferrous Sulfate (Feosol -) 325 mg PO BIDWM [facility] Last Admin: 05/06/17 08:30 Dose: 325 mg Hydralazine HCl (Apresoline -) 100 mg PO TID [facility] Last Admin: 05/06/17 05:41 Dose: 100 mg Nifedipine (Procardia Xl -) 90 mg PO DAILY [facility] Last Admin: 05/06/17 12:46 Dose: 90 mg Valsartan (Diovan -) 160 mg PO BID [facility] Last Admin: 05/06/17 12:46 Dose: 160 mg - Objective Vital Signs: Vital Signs Temperature 99.1 F 05/06/17 12:52 Pulse Rate 61 05/06/17 12:52 Respiratory Rate 20 05/06/17 12:52 Blood Pressure 168/106 05/06/17 12:52 O2 Sat by Pulse Oximetry (%) 100 05/05/17 21:00 Constitutional: Yes: Calm Eyes: Yes: Conjunctiva Clear HENT: Yes: Atraumatic Neck: Yes: Supple Cardiovascular: Yes: S1, S2 Respiratory: Yes: CTA Bilaterally Gastrointestinal: Yes: Normal Bowel Sounds, Soft Genitourinary: Yes: WNL Musculoskeletal: Yes: WNL Edema: No Neurological: Yes: Oriented Psychiatric: Yes: Oriented Labs: CBC, BMP 05/06/17 07:30 05/06/17 11:55 INR, PTT INR 1.07 (0.82-1.09) 03/24/17 20:30 Problem List - Problems (1) ESRD (end stage renal disease) Code(s): N18.6 - END STAGE RENAL DISEASE (2) Hypertension Code(s): I10 - ESSENTIAL (PRIMARY) HYPERTENSION Qualifiers: Hypertension type: essential hypertension Qualified Code(s): I10 - Essential (primary) hypertension (3) Hyperparathyroidism due to renal insufficiency Code(s): N25.81 - SECONDARY HYPERPARATHYROIDISM OF RENAL ORIGIN Assessment/Plan Current Medications Generic Name Dose Route Start Last Admin Trade Name Murtazaq PRN Reason Stop Dose Admin Calcitriol 0.5 mcg 04/06/17 11:42 05/06/17 12:46 Rocaltrol - PO 0.5 mcg DAILY [facility] Administration Calcium Acetate 667 mg 03/25/17 17:30 05/06/17 12:46 Phoslo - PO 667 mg TIDCM [facility] Administration Calcium Carbonate/Cholecalciferol 2 tab 03/25/17 15:00 05/06/17 12:46 Os-Justin 500+D - PO 2 tab DAILY [facility] Administration Carvedilol 25 mg 03/25/17 10:00 05/06/17 12:46 Coreg - PO 25 mg BID [facility] Administration Ferrous Sulfate 325 mg 03/28/17 17:30 05/06/17 08:30 Feosol - PO 325 mg BIDWM [facility] Administration Hydralazine HCl 100 mg 05/06/17 05:31 05/06/17 05:41 Apresoline - PO 100 mg TID [facility] Administration Nifedipine 90 mg 04/05/17 10:00 05/06/17 12:46 Procardia Xl - PO 90 mg DAILY [facility] Administration Valsartan 160 mg 03/27/17 22:00 05/06/17 12:46 Diovan - PO 160 mg BID [facility] Administration Impression 1. ESRD 2. HTN 3. hypocalcemia improving 4. anemia 5. hyperparathyroidism due to renal disease Plan - pt tolerated HD - epogen for anemia - cont iron supplements - pending placement - cont current meds Dr Ramos
--- NOTE | 2017-05-06 16:57 | PN ---
Progress Note, Physician Chief Complaint: Events noted Not in distress History of Present Illness: Patient was seen and examined. Awake and alert. Chart was reviewed Denies chest pain, SOB or palpitations - Current Medication List Current Medications: Active Medications Calcitriol (Rocaltrol -) 0.5 mcg PO DAILY [facility] Last Admin: 05/06/17 12:46 Dose: 0.5 mcg Calcium Acetate (Phoslo -) 667 mg PO TIDCM [facility] Last Admin: 05/06/17 12:46 Dose: 667 mg Calcium Carbonate/Cholecalciferol (Os-Justin 500+D -) 2 tab PO DAILY [facility] Last Admin: 05/06/17 12:46 Dose: 2 tab Carvedilol (Coreg -) 25 mg PO BID [facility] Last Admin: 05/06/17 12:46 Dose: 25 mg Ferrous Sulfate (Feosol -) 325 mg PO BIDWM [facility] Last Admin: 05/06/17 08:30 Dose: 325 mg Hydralazine HCl (Apresoline -) 100 mg PO TID [facility] Last Admin: 05/06/17 15:29 Dose: 100 mg Nifedipine (Procardia Xl -) 90 mg PO DAILY [facility] Last Admin: 05/06/17 12:46 Dose: 90 mg Valsartan (Diovan -) 160 mg PO BID [facility] Last Admin: 05/06/17 12:46 Dose: 160 mg - Objective Vital Signs: Vital Signs Temperature 98.6 F 05/06/17 15:59 Pulse Rate 90 05/06/17 15:59 Respiratory Rate 16 05/06/17 15:59 Blood Pressure 116/78 05/06/17 15:59 O2 Sat by Pulse Oximetry (%) 100 05/06/17 12:30 Neck: Yes: Supple Cardiovascular: Yes: Regular Rate and Rhythm, S1, S2 Respiratory: Yes: CTA Bilaterally Gastrointestinal: Yes: Normal Bowel Sounds, Soft. No: Tenderness Edema: No Labs: CBC, BMP 05/06/17 07:30 05/06/17 11:55 Problem List - Problems (1) Acute on chronic kidney failure Code(s): N17.9 - ACUTE KIDNEY FAILURE, UNSPECIFIED N18.9 - CHRONIC KIDNEY DISEASE, UNSPECIFIED (2) Diastolic dysfunction Code(s): I51.9 - HEART DISEASE, UNSPECIFIED (3) Hypertension Code(s): I10 - ESSENTIAL (PRIMARY) HYPERTENSION Qualifiers: Hypertension type: essential hypertension Qualified Code(s): I10 - Essential (primary) hypertension Assessment/Plan 1. ESRD on HD 2. LV diastolic dysfunction with class I-II NYHA classification LV failure, compensated 3. CAD angina pectoris abnormal EKG with evidence of demand ischemia 4. HTN/HCVD 5. Anemia 6. Hypocalcemia improving 7. Hyperparathyroidism due to renal disease PLAN: 1. Continue Coreg, Procardia XL, Diovan and Hydralazine 2. HD as per renal service, outpatient HD arrangement pending insurance coverage Mateus Singh MD
--- NOTE | 2017-05-06 16:58 | PN ---
Progress Note, Physician History of Present Illness: no complaints - Current Medication List Current Medications: Active Medications Calcitriol (Rocaltrol -) 0.5 mcg PO DAILY [facility] Last Admin: 05/06/17 12:46 Dose: 0.5 mcg Calcium Acetate (Phoslo -) 667 mg PO TIDCM [facility] Last Admin: 05/06/17 12:46 Dose: 667 mg Calcium Carbonate/Cholecalciferol (Os-Justin 500+D -) 2 tab PO DAILY [facility] Last Admin: 05/06/17 12:46 Dose: 2 tab Carvedilol (Coreg -) 25 mg PO BID [facility] Last Admin: 05/06/17 12:46 Dose: 25 mg Ferrous Sulfate (Feosol -) 325 mg PO BIDWM [facility] Last Admin: 05/06/17 08:30 Dose: 325 mg Hydralazine HCl (Apresoline -) 100 mg PO TID [facility] Last Admin: 05/06/17 15:29 Dose: 100 mg Nifedipine (Procardia Xl -) 90 mg PO DAILY [facility] Last Admin: 05/06/17 12:46 Dose: 90 mg Valsartan (Diovan -) 160 mg PO BID [facility] Last Admin: 05/06/17 12:46 Dose: 160 mg - Objective Vital Signs: Vital Signs Temperature 98.6 F 05/06/17 15:59 Pulse Rate 90 05/06/17 15:59 Respiratory Rate 16 05/06/17 15:59 Blood Pressure 116/78 05/06/17 15:59 O2 Sat by Pulse Oximetry (%) 100 05/06/17 12:30 HENT: Yes: Atraumatic Neck: Yes: Supple Cardiovascular: Yes: Regular Rate and Rhythm Respiratory: Yes: CTA Bilaterally Gastrointestinal: Yes: Normal Bowel Sounds Extremities: Yes: WNL Neurological: Yes: Alert, Oriented Labs: CBC, BMP 05/06/17 07:30 05/06/17 11:55 INR, PTT INR 1.07 (0.82-1.09) 03/24/17 20:30 Problem List - Problems (1) Acute on chronic kidney failure Assessment/Plan: ON HD renal on board Code(s): N17.9 - ACUTE KIDNEY FAILURE, UNSPECIFIED N18.9 - CHRONIC KIDNEY DISEASE, UNSPECIFIED (2) ESRD (end stage renal disease) Assessment/Plan: on hd Code(s): N18.6 - END STAGE RENAL DISEASE (3) Hypertension Assessment/Plan: ON MEDS STABLE Code(s): I10 - ESSENTIAL (PRIMARY) HYPERTENSION Qualifiers: Qualified Code(s): I10 - Essential (primary) hypertension Assessment/Plan pt awaiting insurance...dc planing [place] [facility] [place] [facility] dc planning please
[2017-05-07] MEDS: hydrALAZINE HCL 50 MG TABLET (FP) PO SCH ×3 (06:10→21:49)
[2017-05-07] MEDS: CALCIUM ACETATE 667 MG CAPSULE (FP) PO SCH ×3 (08:44→17:49)
[2017-05-07] MEDS: FERROUS SO4 325 MG TABLET (FP) PO SCH ×2 (08:44→17:48)
[2017-05-07] MEDS ORDERED: PT OWN MED DRAWER 7, Y5N ONE (09:10)
[2017-05-07] MEDS: CARVEDILOL 25 MG TABLET (FP) PO SCH ×2 (09:12→21:49)
[2017-05-07] MEDS: CALCIUM 500MG/VIT-D 200 UNITS COMBO TABLET (FP) PO SCH (09:12)
[2017-05-07] MEDS: VALSARTAN 160 MG TABLET (UD) PO SCH ×2 (09:12→21:49)
[2017-05-07] MEDS: NIFEdipine E.R. 90 MG TABLET (FP) PO SCH (09:12)
[2017-05-07] MEDS: CALCITRIOL 0.25 MCG CAPSULE (FP) PO SCH (09:12)
--- NOTE | 2017-05-07 11:23 | PN ---
Progress Note, Physician History of Present Illness: Pt seen and examined at bedside. He has no complaints. - Current Medication List Current Medications: Active Medications Calcitriol (Rocaltrol -) 0.5 mcg PO DAILY [facility] Last Admin: 05/07/17 09:12 Dose: 0.5 mcg Calcium Acetate (Phoslo -) 667 mg PO TIDCM [facility] Last Admin: 05/07/17 08:44 Dose: 667 mg Calcium Carbonate/Cholecalciferol (Os-Justin 500+D -) 2 tab PO DAILY [facility] Last Admin: 05/07/17 09:12 Dose: 2 tab Carvedilol (Coreg -) 25 mg PO BID [facility] Last Admin: 05/07/17 09:12 Dose: 25 mg Ferrous Sulfate (Feosol -) 325 mg PO BIDWM [facility] Last Admin: 05/07/17 08:44 Dose: 325 mg Hydralazine HCl (Apresoline -) 100 mg PO TID [facility] Last Admin: 05/07/17 06:10 Dose: 100 mg Nifedipine (Procardia Xl -) 90 mg PO DAILY [facility] Last Admin: 05/07/17 09:12 Dose: 90 mg Valsartan (Diovan -) 160 mg PO BID [facility] Last Admin: 05/07/17 09:12 Dose: 160 mg - Objective Vital Signs: Vital Signs Temperature 98.6 F 05/07/17 09:05 Pulse Rate 82 05/07/17 09:05 Respiratory Rate 20 05/07/17 09:05 Blood Pressure 136/90 05/07/17 09:05 O2 Sat by Pulse Oximetry (%) 100 05/06/17 21:00 Constitutional: Yes: Calm Eyes: Yes: Conjunctiva Clear Neck: Yes: Supple Cardiovascular: Yes: S1, S2 Respiratory: Yes: CTA Bilaterally Gastrointestinal: Yes: Normal Bowel Sounds, Soft Genitourinary: Yes: WNL Musculoskeletal: Yes: WNL Edema: No Neurological: Yes: Oriented Psychiatric: Yes: Oriented Labs: CBC, BMP 05/06/17 07:30 05/06/17 11:55 INR, PTT INR 1.07 (0.82-1.09) 03/24/17 20:30 Problem List - Problems (1) ESRD (end stage renal disease) Code(s): N18.6 - END STAGE RENAL DISEASE (2) Hypertension Code(s): I10 - ESSENTIAL (PRIMARY) HYPERTENSION Qualifiers: Hypertension type: essential hypertension Qualified Code(s): I10 - Essential (primary) hypertension (3) Hyperparathyroidism due to renal insufficiency Code(s): N25.81 - SECONDARY HYPERPARATHYROIDISM OF RENAL ORIGIN Assessment/Plan Current Medications Generic Name Dose Route Start Last Admin Trade Name Murtazaq PRN Reason Stop Dose Admin Calcitriol 0.5 mcg 04/06/17 11:42 05/07/17 09:12 Rocaltrol - PO 0.5 mcg DAILY [facility] Administration Calcium Acetate 667 mg 03/25/17 17:30 05/07/17 08:44 Phoslo - PO 667 mg TIDCM [facility] Administration Calcium Carbonate/Cholecalciferol 2 tab 03/25/17 15:00 05/07/17 09:12 Os-Justin 500+D - PO 2 tab DAILY [facility] Administration Carvedilol 25 mg 03/25/17 10:00 05/07/17 09:12 Coreg - PO 25 mg BID [facility] Administration Ferrous Sulfate 325 mg 03/28/17 17:30 05/07/17 08:44 Feosol - PO 325 mg BIDWM [facility] Administration Hydralazine HCl 100 mg 05/06/17 05:31 05/07/17 06:10 Apresoline - PO 100 mg TID [facility] Administration Nifedipine 90 mg 04/05/17 10:00 05/07/17 09:12 Procardia Xl - PO 90 mg DAILY [facility] Administration Valsartan 160 mg 03/27/17 22:00 05/07/17 09:12 Diovan - PO 160 mg BID [facility] Administration Impression 1. ESRD 2. HTN 3. hypocalcemia improving 4. anemia 5. hyperparathyroidism due to renal disease Plan - HD in am - epogen for anemia - cont iron supplements - pending placement - cont current meds Dr Ramos
--- NOTE | 2017-05-07 13:03 | PN ---
Progress Note, Physician History of Present Illness: No chest pain or dyspnea. - Current Medication List Current Medications: Active Medications Calcitriol (Rocaltrol -) 0.5 mcg PO DAILY [facility] Last Admin: 05/07/17 09:12 Dose: 0.5 mcg Calcium Acetate (Phoslo -) 667 mg PO TIDCM [facility] Last Admin: 05/07/17 08:44 Dose: 667 mg Calcium Carbonate/Cholecalciferol (Os-Justin 500+D -) 2 tab PO DAILY [facility] Last Admin: 05/07/17 09:12 Dose: 2 tab Carvedilol (Coreg -) 25 mg PO BID [facility] Last Admin: 05/07/17 09:12 Dose: 25 mg Epoetin Refugio (Epogen -) 5,000 units IVPUSH ONCE ONE Stop: 05/08/17 11:24 Ferrous Sulfate (Feosol -) 325 mg PO BIDWM [facility] Last Admin: 05/07/17 08:44 Dose: 325 mg Heparin Sodium (Porcine) (Heparin -) 1,000 unit IVPUSH ONCE ONE Stop: 05/08/17 11:24 Hydralazine HCl (Apresoline -) 100 mg PO TID [facility] Last Admin: 05/07/17 06:10 Dose: 100 mg Nifedipine (Procardia Xl -) 90 mg PO DAILY [facility] Last Admin: 05/07/17 09:12 Dose: 90 mg Valsartan (Diovan -) 160 mg PO BID [facility] Last Admin: 05/07/17 09:12 Dose: 160 mg - Objective Vital Signs: Vital Signs Temperature 98.6 F 05/07/17 09:05 Pulse Rate 82 05/07/17 09:05 Respiratory Rate 20 05/07/17 09:05 Blood Pressure 136/90 05/07/17 09:05 O2 Sat by Pulse Oximetry (%) 99 05/07/17 09:00 Constitutional: Yes: No Distress, Calm Neck: Yes: Supple Cardiovascular: Yes: Regular Rate and Rhythm Respiratory: Yes: Regular, CTA Bilaterally Gastrointestinal: Yes: Normal Bowel Sounds, Soft Edema: No Labs: CBC, BMP 05/06/17 07:30 05/06/17 11:55 INR, PTT INR 1.07 (0.82-1.09) 03/24/17 20:30 Problem List - Problems (1) Acute on chronic kidney failure Code(s): N17.9 - ACUTE KIDNEY FAILURE, UNSPECIFIED N18.9 - CHRONIC KIDNEY DISEASE, UNSPECIFIED (2) ESRD (end stage renal disease) Code(s): N18.6 - END STAGE RENAL DISEASE (3) Hypertensive cardiomyopathy Code(s): I11.9 - HYPERTENSIVE HEART DISEASE WITHOUT HEART FAILURE I42.9 - CARDIOMYOPATHY, UNSPECIFIED Qualifiers: Heart failure presence: without heart failure Qualified Code(s): I11.9 - Hypertensive heart disease without heart failure; I43 - Cardiomyopathy in diseases classified elsewhere (4) Diastolic dysfunction Code(s): I51.9 - HEART DISEASE, UNSPECIFIED (5) Hypocalcemia Code(s): E83.51 - HYPOCALCEMIA (6) Hyperparathyroidism due to renal insufficiency Code(s): N25.81 - SECONDARY HYPERPARATHYROIDISM OF RENAL ORIGIN Assessment/Plan 03/25/2017 Echo: Normal LV size and fxn, mod cLVH, mild LAE, mild TR, RVSP 30-40 mmHg, mild AR, Tr-mild [place] 1. ESRD->HD 2. LV diastolic dysfunction with class I-II NYHA classification LV failure, compensated 3. CAD angina pectoris abnormal EKG with evidence of demand ischemia 4. HTN/HCVD, BP control improved 5. Anemia 6. Hypocalcemia improving 7. Hyperparathyroidism due to renal disease PLAN: 1. Continue Coreg 25 mg bid, Procardia XL 90 qd, Diovan 160 bid and hydralazine 50 tid 2. HD as per renal service, outpatient HD arrangement pending insurance coverage
--- NOTE | 2017-05-07 14:38 | PN ---
Progress Note, Physician History of Present Illness: no complaints - Current Medication List Current Medications: Active Medications Calcitriol (Rocaltrol -) 0.5 mcg PO DAILY [facility] Last Admin: 05/07/17 09:12 Dose: 0.5 mcg Calcium Acetate (Phoslo -) 667 mg PO TIDCM [facility] Last Admin: 05/07/17 13:34 Dose: 667 mg Calcium Carbonate/Cholecalciferol (Os-Justin 500+D -) 2 tab PO DAILY [facility] Last Admin: 05/07/17 09:12 Dose: 2 tab Carvedilol (Coreg -) 25 mg PO BID [facility] Last Admin: 05/07/17 09:12 Dose: 25 mg Epoetin Refugio (Epogen -) 5,000 units IVPUSH ONCE ONE Stop: 05/08/17 11:24 Ferrous Sulfate (Feosol -) 325 mg PO BIDWM [facility] Last Admin: 05/07/17 08:44 Dose: 325 mg Heparin Sodium (Porcine) (Heparin -) 1,000 unit IVPUSH ONCE ONE Stop: 05/08/17 11:24 Hydralazine HCl (Apresoline -) 100 mg PO TID [facility] Last Admin: 05/07/17 13:34 Dose: 100 mg Nifedipine (Procardia Xl -) 90 mg PO DAILY [facility] Last Admin: 05/07/17 09:12 Dose: 90 mg Valsartan (Diovan -) 160 mg PO BID [facility] Last Admin: 05/07/17 09:12 Dose: 160 mg - Objective Vital Signs: Vital Signs Temperature 98.7 F 05/07/17 14:28 Pulse Rate 72 05/07/17 14:28 Respiratory Rate 16 05/07/17 14:28 Blood Pressure 125/80 05/07/17 14:28 O2 Sat by Pulse Oximetry (%) 99 05/07/17 09:00 Constitutional: Yes: No Distress HENT: Yes: Atraumatic Neck: Yes: Supple Cardiovascular: Yes: Regular Rate and Rhythm Respiratory: Yes: CTA Bilaterally Gastrointestinal: Yes: Normal Bowel Sounds Extremities: Yes: WNL Neurological: Yes: Alert, Oriented Labs: CBC, BMP 05/06/17 07:30 05/06/17 11:55 INR, PTT INR 1.07 (0.82-1.09) 03/24/17 20:30 Problem List - Problems (1) Acute on chronic kidney failure Assessment/Plan: ON HD renal on board Code(s): N17.9 - ACUTE KIDNEY FAILURE, UNSPECIFIED N18.9 - CHRONIC KIDNEY DISEASE, UNSPECIFIED (2) ESRD (end stage renal disease) Assessment/Plan: on hd Code(s): N18.6 - END STAGE RENAL DISEASE (3) Hypertension Assessment/Plan: ON MEDS STABLE Code(s): I10 - ESSENTIAL (PRIMARY) HYPERTENSION Qualifiers: Hypertension type: essential hypertension Qualified Code(s): I10 - Essential (primary) hypertension Assessment/Plan pt awaiting insurance...[facility] plan[facility] please
[2017-05-08] MEDS: hydrALAZINE HCL 50 MG TABLET (FP) PO SCH ×3 (06:41→22:02)
[2017-05-08] MEDS: CALCIUM ACETATE 667 MG CAPSULE (FP) PO SCH ×3 (08:25→17:50)
[2017-05-08] MEDS: FERROUS SO4 325 MG TABLET (FP) PO SCH ×2 (08:26→17:50)
[2017-05-08] MEDS ORDERED: EPOETIN ALFA 3,000 UNIT/1 ML ML IVPUSH ONE (11:30)
[2017-05-08] MEDS ORDERED: HEPARIN NA (PORCINE) 5,000 UNITS/ML 1ML VIAL IVPUSH ONE (11:30)
[2017-05-08] MEDS ORDERED: EPOETIN ALFA 2,000 UNITS/1 ML VIAL IVPUSH ONE (11:30)
--- NOTE | 2017-05-08 14:44 | PN ---
Progress Note, Physician History of Present Illness: no complaints - Current Medication List Current Medications: Active Medications Calcitriol (Rocaltrol -) 0.5 mcg PO DAILY [facility] Last Admin: 05/07/17 09:12 Dose: 0.5 mcg Calcium Acetate (Phoslo -) 667 mg PO TIDCM [facility] Last Admin: 05/08/17 12:21 Dose: 667 mg Calcium Carbonate/Cholecalciferol (Os-Justin 500+D -) 2 tab PO DAILY [facility] Last Admin: 05/07/17 09:12 Dose: 2 tab Carvedilol (Coreg -) 25 mg PO BID [facility] Last Admin: 05/07/17 21:49 Dose: 25 mg Ferrous Sulfate (Feosol -) 325 mg PO BIDWM [facility] Last Admin: 05/08/17 08:26 Dose: 325 mg Hydralazine HCl (Apresoline -) 100 mg PO TID [facility] Last Admin: 05/08/17 06:41 Dose: 100 mg Nifedipine (Procardia Xl -) 90 mg PO DAILY [facility] Last Admin: 05/07/17 09:12 Dose: 90 mg Valsartan (Diovan -) 160 mg PO BID [facility] Last Admin: 05/07/17 21:49 Dose: 160 mg - Objective Vital Signs: Vital Signs Temperature 97.9 F 05/08/17 09:50 Pulse Rate 78 05/08/17 14:00 Respiratory Rate 18 05/08/17 14:00 Blood Pressure 134/85 05/08/17 14:00 O2 Sat by Pulse Oximetry (%) 99 05/07/17 21:00 Constitutional: Yes: No Distress HENT: Yes: Atraumatic Neck: Yes: Supple Cardiovascular: Yes: Regular Rate and Rhythm Respiratory: Yes: CTA Bilaterally Gastrointestinal: Yes: Normal Bowel Sounds Extremities: Yes: WNL Edema: No Neurological: Yes: Alert Labs: CBC, BMP 05/06/17 07:30 05/06/17 11:55 INR, PTT INR 1.07 (0.82-1.09) 03/24/17 20:30 Problem List - Problems (1) Acute on chronic kidney failure Assessment/Plan: ON HD renal on board Code(s): N17.9 - ACUTE KIDNEY FAILURE, UNSPECIFIED N18.9 - CHRONIC KIDNEY DISEASE, UNSPECIFIED (2) ESRD (end stage renal disease) Assessment/Plan: on hd Code(s): N18.6 - END STAGE RENAL DISEASE (3) Hypertension Assessment/Plan: ON MEDS STABLE Code(s): I10 - ESSENTIAL (PRIMARY) HYPERTENSION Qualifiers: Hypertension type: essential hypertension Qualified Code(s): I10 - Essential (primary) hypertension Assessment/Plan pt awaiting insurance...dc planing pt [place] a [place] with her dc planning please
[2017-05-08] MEDS ORDERED: PT OWN MED DRAWER 7, Y5N ONE (15:04)
[2017-05-08] MEDS: NIFEdipine E.R. 90 MG TABLET (FP) PO SCH (15:07)
[2017-05-08] MEDS: CALCIUM 500MG/VIT-D 200 UNITS COMBO TABLET (FP) PO SCH (15:07)
[2017-05-08] MEDS: CALCITRIOL 0.25 MCG CAPSULE (FP) PO SCH (15:07)
[2017-05-08] MEDS: VALSARTAN 160 MG TABLET (UD) PO SCH ×2 (15:07→22:02)
[2017-05-08] MEDS: CARVEDILOL 25 MG TABLET (FP) PO SCH ×2 (15:08→22:02)
--- NOTE | 2017-05-08 16:20 | PN ---
Progress Note, Physician History of Present Illness: Pt seen and examined at bedside. He is awake and alert. - Current Medication List Current Medications: Active Medications Calcitriol (Rocaltrol -) 0.5 mcg PO DAILY [facility] Last Admin: 05/08/17 15:07 Dose: 0.5 mcg Calcium Acetate (Phoslo -) 667 mg PO TIDCM [facility] Last Admin: 05/08/17 12:21 Dose: 667 mg Calcium Carbonate/Cholecalciferol (Os-Justin 500+D -) 2 tab PO DAILY [facility] Last Admin: 05/08/17 15:07 Dose: 2 tab Carvedilol (Coreg -) 25 mg PO BID [facility] Last Admin: 05/08/17 15:08 Dose: 25 mg Ferrous Sulfate (Feosol -) 325 mg PO BIDWM [facility] Last Admin: 05/08/17 08:26 Dose: 325 mg Hydralazine HCl (Apresoline -) 100 mg PO TID [facility] Last Admin: 05/08/17 15:07 Dose: 100 mg Nifedipine (Procardia Xl -) 90 mg PO DAILY [facility] Last Admin: 05/08/17 15:07 Dose: 90 mg Valsartan (Diovan -) 160 mg PO BID [facility] Last Admin: 05/08/17 15:07 Dose: 160 mg - Objective Vital Signs: Vital Signs Temperature 98.4 F 05/08/17 14:56 Pulse Rate 81 05/08/17 14:56 Respiratory Rate 16 05/08/17 14:56 Blood Pressure 157/97 05/08/17 14:56 O2 Sat by Pulse Oximetry (%) 99 05/07/17 21:00 Constitutional: Yes: Calm Eyes: Yes: Conjunctiva Clear HENT: Yes: Atraumatic Cardiovascular: Yes: S1, S2 Respiratory: Yes: CTA Bilaterally Gastrointestinal: Yes: Soft Genitourinary: Yes: WNL Musculoskeletal: Yes: WNL Edema: No Neurological: Yes: Oriented Psychiatric: Yes: Oriented Labs: CBC, BMP 05/06/17 07:30 05/06/17 11:55 INR, PTT INR 1.07 (0.82-1.09) 03/24/17 20:30 Problem List - Problems (1) ESRD (end stage renal disease) Code(s): N18.6 - END STAGE RENAL DISEASE (2) Hypertension Code(s): I10 - ESSENTIAL (PRIMARY) HYPERTENSION Qualifiers: Hypertension type: essential hypertension Qualified Code(s): I10 - Essential (primary) hypertension (3) Hyperparathyroidism due to renal insufficiency Code(s): N25.81 - SECONDARY HYPERPARATHYROIDISM OF RENAL ORIGIN Assessment/Plan Current Medications Generic Name Dose Route Start Last Admin Trade Name Murtazaq PRN Reason Stop Dose Admin Calcitriol 0.5 mcg 04/06/17 11:42 05/08/17 15:07 Rocaltrol - PO 0.5 mcg DAILY [facility] Administration Calcium Acetate 667 mg 03/25/17 17:30 05/08/17 12:21 Phoslo - PO 667 mg TIDCM [facility] Administration Calcium Carbonate/Cholecalciferol 2 tab 03/25/17 15:00 05/08/17 15:07 Os-Justin 500+D - PO 2 tab DAILY [facility] Administration Carvedilol 25 mg 03/25/17 10:00 05/08/17 15:08 Coreg - PO 25 mg BID [facility] Administration Ferrous Sulfate 325 mg 03/28/17 17:30 05/08/17 08:26 Feosol - PO 325 mg BIDWM [facility] Administration Hydralazine HCl 100 mg 05/06/17 05:31 05/08/17 15:07 Apresoline - PO 100 mg TID [facility] Administration Nifedipine 90 mg 04/05/17 10:00 05/08/17 15:07 Procardia Xl - PO 90 mg DAILY [facility] Administration Valsartan 160 mg 03/27/17 22:00 05/08/17 15:07 Diovan - PO 160 mg BID [facility] Administration Impression 1. ESRD 2. HTN 3. hypocalcemia improving 4. anemia 5. hyperparathyroidism due to renal disease Plan - pt tolerated HD today - epogen for anemia - cont iron supplements - pending placement - cont current meds Dr Ramos
[2017-05-09] MEDS: hydrALAZINE HCL 50 MG TABLET (FP) PO SCH ×3 (06:28→21:51)
[2017-05-09] MEDS ORDERED: PT OWN MED DRAWER 7, Y5N ONE (10:42)
[2017-05-09] MEDS: FERROUS SO4 325 MG TABLET (FP) PO SCH ×2 (10:43→17:31)
[2017-05-09] MEDS: CARVEDILOL 25 MG TABLET (FP) PO SCH ×2 (10:43→21:51)
[2017-05-09] MEDS: CALCIUM ACETATE 667 MG CAPSULE (FP) PO SCH ×3 (10:43→17:31)
[2017-05-09] MEDS: CALCIUM 500MG/VIT-D 200 UNITS COMBO TABLET (FP) PO SCH (10:44)
[2017-05-09] MEDS: VALSARTAN 160 MG TABLET (UD) PO SCH ×2 (10:44→21:51)
[2017-05-09] MEDS: NIFEdipine E.R. 90 MG TABLET (FP) PO SCH (10:44)
[2017-05-09] MEDS: CALCITRIOL 0.25 MCG CAPSULE (FP) PO SCH (10:45)
--- NOTE | 2017-05-09 14:08 | PN ---
Progress Note, Physician History of Present Illness: no complaints - Current Medication List Current Medications: Active Medications Calcitriol (Rocaltrol -) 0.5 mcg PO DAILY [facility] Last Admin: 05/09/17 10:45 Dose: 0.5 mcg Calcium Acetate (Phoslo -) 667 mg PO TIDCM [facility] Last Admin: 05/09/17 12:40 Dose: 667 mg Calcium Carbonate/Cholecalciferol (Os-Justin 500+D -) 2 tab PO DAILY [facility] Last Admin: 05/09/17 10:44 Dose: 2 tab Carvedilol (Coreg -) 25 mg PO BID [facility] Last Admin: 05/09/17 10:43 Dose: 25 mg Ferrous Sulfate (Feosol -) 325 mg PO BIDWM [facility] Last Admin: 05/09/17 10:43 Dose: 325 mg Hydralazine HCl (Apresoline -) 100 mg PO TID [facility] Last Admin: 05/09/17 06:28 Dose: 100 mg Nifedipine (Procardia Xl -) 90 mg PO DAILY [facility] Last Admin: 05/09/17 10:44 Dose: 90 mg Valsartan (Diovan -) 160 mg PO BID [facility] Last Admin: 05/09/17 10:44 Dose: 160 mg - Objective Vital Signs: Vital Signs Temperature 99.1 F 05/09/17 06:00 Pulse Rate 81 05/09/17 06:00 Respiratory Rate 18 05/09/17 06:00 Blood Pressure 134/88 05/09/17 06:00 O2 Sat by Pulse Oximetry (%) 100 05/08/17 21:00 Constitutional: Yes: No Distress HENT: Yes: Atraumatic Neck: Yes: Supple Cardiovascular: Yes: Regular Rate and Rhythm Respiratory: Yes: CTA Bilaterally Gastrointestinal: Yes: Normal Bowel Sounds Extremities: Yes: WNL Edema: No Neurological: Yes: Alert, Oriented Labs: CBC, BMP 05/06/17 07:30 05/06/17 11:55 INR, PTT INR 1.07 (0.82-1.09) 03/24/17 20:30 Problem List - Problems (1) Acute on chronic kidney failure Assessment/Plan: ON HD renal on board Code(s): N17.9 - ACUTE KIDNEY FAILURE, UNSPECIFIED N18.9 - CHRONIC KIDNEY DISEASE, UNSPECIFIED (2) ESRD (end stage renal disease) Code(s): N18.6 - END STAGE RENAL DISEASE (3) Hypertension Code(s): I10 - ESSENTIAL (PRIMARY) HYPERTENSION Qualifiers: Hypertension type: essential hypertension Qualified Code(s): I10 - Essential (primary) hypertension Assessment/Plan pt awaiting insurance...dc planing pt has a daughter in [place] lives with her dc planning please
--- NOTE | 2017-05-09 15:06 | PN ---
Progress Note, Physician History of Present Illness: Pt seen and examined at bedside. He is awake and alert. He has no complaints. - Current Medication List Current Medications: Active Medications Calcitriol (Rocaltrol -) 0.5 mcg PO DAILY [facility] Last Admin: 05/09/17 10:45 Dose: 0.5 mcg Calcium Acetate (Phoslo -) 667 mg PO TIDCM [facility] Last Admin: 05/09/17 12:40 Dose: 667 mg Calcium Carbonate/Cholecalciferol (Os-Justin 500+D -) 2 tab PO DAILY [facility] Last Admin: 05/09/17 10:44 Dose: 2 tab Carvedilol (Coreg -) 25 mg PO BID [facility] Last Admin: 05/09/17 10:43 Dose: 25 mg Ferrous Sulfate (Feosol -) 325 mg PO BIDWM [facility] Last Admin: 05/09/17 10:43 Dose: 325 mg Hydralazine HCl (Apresoline -) 100 mg PO TID [facility] Last Admin: 05/09/17 14:34 Dose: 100 mg Nifedipine (Procardia Xl -) 90 mg PO DAILY [facility] Last Admin: 05/09/17 10:44 Dose: 90 mg Valsartan (Diovan -) 160 mg PO BID [facility] Last Admin: 05/09/17 10:44 Dose: 160 mg - Objective Vital Signs: Vital Signs Temperature 99 F 05/09/17 14:43 Pulse Rate 86 05/09/17 14:43 Respiratory Rate 20 05/09/17 14:43 Blood Pressure 141/83 05/09/17 14:43 O2 Sat by Pulse Oximetry (%) 100 05/08/17 21:00 Constitutional: Yes: Calm Eyes: Yes: Conjunctiva Clear HENT: Yes: Atraumatic Neck: Yes: Supple Cardiovascular: Yes: S1, S2 Respiratory: Yes: CTA Bilaterally Gastrointestinal: Yes: Normal Bowel Sounds, Soft Genitourinary: Yes: WNL Musculoskeletal: Yes: WNL Edema: No Neurological: Yes: Oriented Psychiatric: Yes: Oriented Labs: CBC, BMP 05/06/17 07:30 05/06/17 11:55 INR, PTT INR 1.07 (0.82-1.09) 03/24/17 20:30 Problem List - Problems (1) ESRD (end stage renal disease) Code(s): N18.6 - END STAGE RENAL DISEASE (2) Hypertension Code(s): I10 - ESSENTIAL (PRIMARY) HYPERTENSION Qualifiers: Hypertension type: essential hypertension Qualified Code(s): I10 - Essential (primary) hypertension (3) Hyperparathyroidism due to renal insufficiency Code(s): N25.81 - SECONDARY HYPERPARATHYROIDISM OF RENAL ORIGIN Assessment/Plan Current Medications Generic Name Dose Route Start Last Admin Trade Name Murtazaq PRN Reason Stop Dose Admin Calcitriol 0.5 mcg 04/06/17 11:42 05/09/17 10:45 Rocaltrol - PO 0.5 mcg DAILY [facility] Administration Calcium Acetate 667 mg 03/25/17 17:30 05/09/17 12:40 Phoslo - PO 667 mg TIDCM [facility] Administration Calcium Carbonate/Cholecalciferol 2 tab 03/25/17 15:00 05/09/17 10:44 Os-Justin 500+D - PO 2 tab DAILY [facility] Administration Carvedilol 25 mg 03/25/17 10:00 05/09/17 10:43 Coreg - PO 25 mg BID [facility] Administration Ferrous Sulfate 325 mg 03/28/17 17:30 05/09/17 10:43 Feosol - PO 325 mg BIDWM [facility] Administration Hydralazine HCl 100 mg 05/06/17 05:31 05/09/17 14:34 Apresoline - PO 100 mg TID [facility] Administration Nifedipine 90 mg 04/05/17 10:00 05/09/17 10:44 Procardia Xl - PO 90 mg DAILY [facility] Administration Valsartan 160 mg 03/27/17 22:00 05/09/17 10:44 Diovan - PO 160 mg BID [facility] Administration Impression 1. ESRD 2. HTN 3. hypocalcemia improving 4. anemia 5. hyperparathyroidism due to renal disease Plan - HD in am - epogen for anemia - cont iron supplements - pending placement - cont current meds Dr Ramos
--- NOTE | 2017-05-09 16:33 | PN ---
Progress Note, Physician History of Present Illness: No chest pain or dyspnea. - Current Medication List Current Medications: Active Medications Calcitriol (Rocaltrol -) 0.5 mcg PO DAILY [facility] Last Admin: 05/09/17 10:45 Dose: 0.5 mcg Calcium Acetate (Phoslo -) 667 mg PO TIDCM [facility] Last Admin: 05/09/17 12:40 Dose: 667 mg Calcium Carbonate/Cholecalciferol (Os-Justin 500+D -) 2 tab PO DAILY [facility] Last Admin: 05/09/17 10:44 Dose: 2 tab Carvedilol (Coreg -) 25 mg PO BID [facility] Last Admin: 05/09/17 10:43 Dose: 25 mg Epoetin Refugio (Procrit -) 3,000 unit IVPUSH ONCE ONE Stop: 05/10/17 15:07 Ferrous Sulfate (Feosol -) 325 mg PO BIDWM [facility] Last Admin: 05/09/17 10:43 Dose: 325 mg Heparin Sodium (Porcine) (Heparin -) 1,000 unit IVPUSH ONCE ONE Stop: 05/10/17 15:07 Hydralazine HCl (Apresoline -) 100 mg PO TID [facility] Last Admin: 05/09/17 14:34 Dose: 100 mg Nifedipine (Procardia Xl -) 90 mg PO DAILY [facility] Last Admin: 05/09/17 10:44 Dose: 90 mg Valsartan (Diovan -) 160 mg PO BID [facility] Last Admin: 05/09/17 10:44 Dose: 160 mg - Objective Vital Signs: Vital Signs Temperature 99 F 05/09/17 14:43 Pulse Rate 86 05/09/17 14:43 Respiratory Rate 20 05/09/17 14:43 Blood Pressure 141/83 05/09/17 14:43 O2 Sat by Pulse Oximetry (%) 100 05/09/17 09:00 Constitutional: Yes: No Distress, Calm Neck: Yes: Supple Cardiovascular: Yes: Regular Rate and Rhythm Respiratory: Yes: Regular, CTA Bilaterally Gastrointestinal: Yes: Normal Bowel Sounds, Soft Edema: No Labs: CBC, BMP 05/06/17 07:30 05/06/17 11:55 INR, PTT INR 1.07 (0.82-1.09) 03/24/17 20:30 Problem List - Problems (1) Acute on chronic kidney failure Code(s): N17.9 - ACUTE KIDNEY FAILURE, UNSPECIFIED N18.9 - CHRONIC KIDNEY DISEASE, UNSPECIFIED (2) ESRD (end stage renal disease) Code(s): N18.6 - END STAGE RENAL DISEASE (3) Hypertensive cardiomyopathy Code(s): I11.9 - HYPERTENSIVE HEART DISEASE WITHOUT HEART FAILURE I42.9 - CARDIOMYOPATHY, UNSPECIFIED Qualifiers: Heart failure presence: without heart failure Qualified Code(s): I11.9 - Hypertensive heart disease without heart failure; I43 - Cardiomyopathy in diseases classified elsewhere (4) Diastolic dysfunction Code(s): I51.9 - HEART DISEASE, UNSPECIFIED (5) Hypocalcemia Code(s): E83.51 - HYPOCALCEMIA (6) Hyperparathyroidism due to renal insufficiency Code(s): N25.81 - SECONDARY HYPERPARATHYROIDISM OF RENAL ORIGIN Assessment/Plan 03/25/2017 Echo: Normal LV size and fxn, mod cLVH, mild LAE, mild TR, RVSP 30-40 mmHg, mild AR, Tr-mild [place] 1. ESRD->HD 2. LV diastolic dysfunction with class I-II NYHA classification LV failure, compensated 3. CAD angina pectoris abnormal EKG with evidence of demand ischemia 4. HTN/HCVD, BP control improved 5. Anemia 6. Hypocalcemia improving 7. Hyperparathyroidism due to renal disease PLAN: 1. Continue Coreg 25 mg bid, Procardia XL 90 qd, Diovan 160 bid and hydralazine 50 tid 2. HD as per renal service, outpatient HD arrangement pending insurance coverage
[2017-05-10] MEDS: hydrALAZINE HCL 50 MG TABLET (FP) PO SCH ×3 (06:27→21:29)
[2017-05-10] MEDS ORDERED: HEPARIN NA (PORCINE) 5,000 UNITS/ML 1ML VIAL IVPUSH ONE (08:00)
[2017-05-10] MEDS ORDERED: EPOETIN ALFA 3,000 UNIT/1 ML ML IVPUSH ONE (08:00)
[2017-05-10] MEDS: FERROUS SO4 325 MG TABLET (FP) PO SCH ×2 (09:38→17:25)
[2017-05-10] MEDS: CALCIUM ACETATE 667 MG CAPSULE (FP) PO SCH ×3 (09:39→17:25)
[2017-05-10] MEDS ORDERED: PT OWN MED DRAWER 7, Y5N ONE (11:43)
[2017-05-10] MEDS: CARVEDILOL 25 MG TABLET (FP) PO SCH ×2 (12:17→21:29)
[2017-05-10] MEDS: VALSARTAN 160 MG TABLET (UD) PO SCH ×2 (12:17→21:29)
[2017-05-10] MEDS: CALCITRIOL 0.25 MCG CAPSULE (FP) PO SCH (12:17)
[2017-05-10] MEDS: CALCIUM 500MG/VIT-D 200 UNITS COMBO TABLET (FP) PO SCH (12:18)
[2017-05-10] MEDS: NIFEdipine E.R. 90 MG TABLET (FP) PO SCH (12:19)
--- NOTE | 2017-05-10 15:50 | PN ---
Progress Note, Physician History of Present Illness: Pt seen and examined at bedside. He is awake and alert. He tolerated HD today. - Current Medication List Current Medications: Active Medications Calcitriol (Rocaltrol -) 0.5 mcg PO DAILY [facility] Last Admin: 05/10/17 12:17 Dose: 0.5 mcg Calcium Acetate (Phoslo -) 667 mg PO TIDCM [facility] Last Admin: 05/10/17 12:17 Dose: 667 mg Calcium Carbonate/Cholecalciferol (Os-Justin 500+D -) 2 tab PO DAILY [facility] Last Admin: 05/10/17 12:18 Dose: 2 tab Carvedilol (Coreg -) 25 mg PO BID [facility] Last Admin: 05/10/17 12:17 Dose: 25 mg Ferrous Sulfate (Feosol -) 325 mg PO BIDWM [facility] Last Admin: 05/10/17 09:38 Dose: Not Given Hydralazine HCl (Apresoline -) 100 mg PO TID [facility] Last Admin: 05/10/17 14:39 Dose: 100 mg Nifedipine (Procardia Xl -) 90 mg PO DAILY [facility] Last Admin: 05/10/17 12:19 Dose: 90 mg Valsartan (Diovan -) 160 mg PO BID [facility] Last Admin: 05/10/17 12:17 Dose: 160 mg - Objective Vital Signs: Vital Signs Temperature 98.0 F 05/10/17 15:07 Pulse Rate 78 05/10/17 15:07 Respiratory Rate 16 05/10/17 15:07 Blood Pressure 140/86 05/10/17 15:07 O2 Sat by Pulse Oximetry (%) 100 05/09/17 20:28 Constitutional: Yes: Calm Eyes: Yes: Conjunctiva Clear HENT: Yes: Atraumatic Cardiovascular: Yes: S1, S2 Respiratory: Yes: CTA Bilaterally Gastrointestinal: Yes: Soft Genitourinary: Yes: WNL Musculoskeletal: Yes: WNL Edema: No Neurological: Yes: Oriented Psychiatric: Yes: Oriented Labs: CBC, BMP 05/06/17 07:30 05/06/17 11:55 INR, PTT INR 1.07 (0.82-1.09) 03/24/17 20:30 Problem List - Problems (1) ESRD (end stage renal disease) Code(s): N18.6 - END STAGE RENAL DISEASE (2) Hypertension Code(s): I10 - ESSENTIAL (PRIMARY) HYPERTENSION Qualifiers: Hypertension type: essential hypertension Qualified Code(s): I10 - Essential (primary) hypertension (3) Hyperparathyroidism due to renal insufficiency Code(s): N25.81 - SECONDARY HYPERPARATHYROIDISM OF RENAL ORIGIN Assessment/Plan Current Medications Generic Name Dose Route Start Last Admin Trade Name Freq PRN Reason Stop Dose Admin Calcitriol 0.5 mcg 04/06/17 11:42 05/10/17 12:17 Rocaltrol - PO 0.5 mcg DAILY [facility] Administration Calcium Acetate 667 mg 03/25/17 17:30 05/10/17 12:17 Phoslo - PO 667 mg TIDCM [facility] Administration Calcium Carbonate/Cholecalciferol 2 tab 03/25/17 15:00 05/10/17 12:18 Os-Justin 500+D - PO 2 tab DAILY [facility] Administration Carvedilol 25 mg 03/25/17 10:00 05/10/17 12:17 Coreg - PO 25 mg BID [facility] Administration Ferrous Sulfate 325 mg 03/28/17 17:30 05/10/17 09:38 Feosol - PO Not Given BIDWM [facility] Hydralazine HCl 100 mg 05/06/17 05:31 05/10/17 14:39 Apresoline - PO 100 mg TID [facility] Administration Nifedipine 90 mg 04/05/17 10:00 05/10/17 12:19 Procardia Xl - PO 90 mg DAILY [facility] Administration Valsartan 160 mg 03/27/17 22:00 05/10/17 12:17 Diovan - PO 160 mg BID [facility] Administration Impression 1. ESRD 2. HTN 3. hypocalcemia improving 4. anemia 5. hyperparathyroidism due to renal disease Plan - pt tolerated HD - epogen for anemia - cont iron supplements - pending placement - cont current meds Dr Ramos
--- NOTE | 2017-05-10 18:21 | PN ---
Progress Note (short form) - Note Progress Note: Chief Complaint: Events noted, notes reviewed, denies any chest pain or dyspnea History of Present Illness: Seen and examined. Events noted, notes reviewed, denies any chest pain or dyspnea Echocardiography dated 03/25/2017 revealed normal LV size and function, moderate cLVH, mild LAE, mild AR and TR, RVSP 30-40 mmHg Medications: Current Medications Calcitriol (Rocaltrol -) 0.5 mcg PO DAILY [facility] Last Admin: 05/10/17 12:17 Dose: 0.5 mcg Calcium Acetate (Phoslo -) 667 mg PO TIDCM [facility] Last Admin: 05/10/17 17:25 Dose: 667 mg Calcium Carbonate/Cholecalciferol (Os-Justin 500+D -) 2 tab PO DAILY [facility] Last Admin: 05/10/17 12:18 Dose: 2 tab Carvedilol (Coreg -) 25 mg PO BID [facility] Last Admin: 05/10/17 12:17 Dose: 25 mg Ferrous Sulfate (Feosol -) 325 mg PO BIDWM [facility] Last Admin: 05/10/17 17:25 Dose: 325 mg Hydralazine HCl (Apresoline -) 100 mg PO TID [facility] Last Admin: 05/10/17 14:39 Dose: 100 mg Nifedipine (Procardia Xl -) 90 mg PO DAILY [facility] Last Admin: 05/10/17 12:19 Dose: 90 mg Valsartan (Diovan -) 160 mg PO BID [facility] Last Admin: 05/10/17 12:17 Dose: 160 mg Vital Signs: Last Vital Signs Temp Pulse Resp BP Pulse Ox 98.6 F 77 20 123/70 100 05/10/17 16:59 05/10/17 16:59 05/10/17 16:59 05/10/17 16:59 05/09/17 20:28 Constitutional: No Distress, Calm Neck: Supple Negative JVD Respiratory: Clear to A&P Bilaterally Cardiovascular: S1 S2 Regular Rate and Rhythm Gastrointestinal: Soft Benign Normal Bowel Sounds Ext: Negative Edema Lab Data: CBC, BMP 05/06/17 07:30 05/06/17 11:55 Hepatic Panel Total Bilirubin 0.3 mg/dL (0.2-1.0) 05/03/17 09:00 AST 12 U/L (15-37) L 05/03/17 09:00 ALT 12 U/L (12-78) 05/03/17 09:00 Alkaline Phosphatase 102 U/L (45-117) 05/03/17 09:00 Albumin 3.7 g/dl (3.4-5.0) 05/03/17 09:00 Assessment/Plan ASSESSMENT: 1. Acute renal failure on HD 2. Diastolic LV dysfunction with class I-II NYHA classification LV failure, compensated 3. CAD angina pectoris abnormal EKG with evidence of demand ischemia 4. HTN, at goal 5. Anemia PLAN: 1. Continue Coreg 2. Continue Procardia XL 3. Continue Diovan 4. Continue Hydralazine 5. HD as per renal service Isabelle Murcia MD
--- NOTE | 2017-05-10 18:25 | PN ---
Progress Note, Physician History of Present Illness: no complaints - Current Medication List Current Medications: Active Medications Calcitriol (Rocaltrol -) 0.5 mcg PO DAILY [facility] Last Admin: 05/10/17 12:17 Dose: 0.5 mcg Calcium Acetate (Phoslo -) 667 mg PO TIDCM [facility] Last Admin: 05/10/17 17:25 Dose: 667 mg Calcium Carbonate/Cholecalciferol (Os-Justin 500+D -) 2 tab PO DAILY [facility] Last Admin: 05/10/17 12:18 Dose: 2 tab Carvedilol (Coreg -) 25 mg PO BID [facility] Last Admin: 05/10/17 12:17 Dose: 25 mg Ferrous Sulfate (Feosol -) 325 mg PO BIDWM [facility] Last Admin: 05/10/17 17:25 Dose: 325 mg Hydralazine HCl (Apresoline -) 100 mg PO TID [facility] Last Admin: 05/10/17 14:39 Dose: 100 mg Nifedipine (Procardia Xl -) 90 mg PO DAILY [facility] Last Admin: 05/10/17 12:19 Dose: 90 mg Valsartan (Diovan -) 160 mg PO BID [facility] Last Admin: 05/10/17 12:17 Dose: 160 mg - Objective Vital Signs: Vital Signs Temperature 98.6 F 05/10/17 16:59 Pulse Rate 77 05/10/17 16:59 Respiratory Rate 20 05/10/17 16:59 Blood Pressure 123/70 05/10/17 16:59 O2 Sat by Pulse Oximetry (%) 100 05/09/17 20:28 Constitutional: Yes: No Distress HENT: Yes: Atraumatic Neck: Yes: Supple Cardiovascular: Yes: Regular Rate and Rhythm Respiratory: Yes: CTA Bilaterally Gastrointestinal: Yes: Normal Bowel Sounds Extremities: Yes: WNL Neurological: Yes: Alert, Oriented Labs: CBC, BMP 05/06/17 07:30 05/06/17 11:55 INR, PTT INR 1.07 (0.82-1.09) 03/24/17 20:30 Problem List - Problems (1) Acute on chronic kidney failure Assessment/Plan: ON HD renal on board Code(s): N17.9 - ACUTE KIDNEY FAILURE, UNSPECIFIED N18.9 - CHRONIC KIDNEY DISEASE, UNSPECIFIED (2) ESRD (end stage renal disease) Assessment/Plan: on hd Code(s): N18.6 - END STAGE RENAL DISEASE (3) Hypertension Assessment/Plan: ON MEDS STABLE Code(s): I10 - ESSENTIAL (PRIMARY) HYPERTENSION Qualifiers: Hypertension type: essential hypertension Qualified Code(s): I10 - Essential (primary) hypertension Assessment/Plan pt awaiting insurance...dc planing pt has a daughter in [place] dc planning please
[2017-05-11] MEDS: hydrALAZINE HCL 50 MG TABLET (FP) PO SCH ×3 (05:47→21:47)
[2017-05-11] MEDS: CALCIUM ACETATE 667 MG CAPSULE (FP) PO SCH ×3 (08:58→17:30)
[2017-05-11] MEDS: FERROUS SO4 325 MG TABLET (FP) PO SCH ×2 (08:58→17:30)
[2017-05-11] MEDS ORDERED: PT OWN MED DRAWER 7, Y5N ONE (09:05)
[2017-05-11] MEDS: CARVEDILOL 25 MG TABLET (FP) PO SCH ×2 (09:13→21:47)
[2017-05-11] MEDS: VALSARTAN 160 MG TABLET (UD) PO SCH ×2 (09:13→21:47)
[2017-05-11] MEDS: CALCITRIOL 0.25 MCG CAPSULE (FP) PO SCH (09:13)
[2017-05-11] MEDS: CALCIUM 500MG/VIT-D 200 UNITS COMBO TABLET (FP) PO SCH (09:13)
[2017-05-11] MEDS: NIFEdipine E.R. 90 MG TABLET (FP) PO SCH (09:14)
--- NOTE | 2017-05-11 14:06 | PN ---
Progress Note (short form) - Note Progress Note: Chief Complaint: Events noted, notes reviewed, denies any chest pain or dyspnea History of Present Illness: Seen and examined. Events noted, notes reviewed, denies any chest pain or dyspnea Echocardiography dated 03/25/2017 revealed normal LV size and function, moderate cLVH, mild LAE, mild AR and TR, RVSP 30-40 mmHg Medications: Current Medications Calcitriol (Rocaltrol -) 0.5 mcg PO DAILY [facility] Last Admin: 05/11/17 09:13 Dose: 0.5 mcg Calcium Acetate (Phoslo -) 667 mg PO TIDCM [facility] Last Admin: 05/11/17 12:31 Dose: 667 mg Calcium Carbonate/Cholecalciferol (Os-Justin 500+D -) 2 tab PO DAILY [facility] Last Admin: 05/11/17 09:13 Dose: 2 tab Carvedilol (Coreg -) 25 mg PO BID [facility] Last Admin: 05/11/17 09:13 Dose: 25 mg Ferrous Sulfate (Feosol -) 325 mg PO BIDWM [facility] Last Admin: 05/11/17 08:58 Dose: 325 mg Hydralazine HCl (Apresoline -) 100 mg PO TID [facility] Last Admin: 05/11/17 05:47 Dose: 100 mg Nifedipine (Procardia Xl -) 90 mg PO DAILY [facility] Last Admin: 05/11/17 09:14 Dose: 90 mg Valsartan (Diovan -) 160 mg PO BID [facility] Last Admin: 05/11/17 09:13 Dose: 160 mg Vital Signs: Last Vital Signs Temp Pulse Resp BP Pulse Ox 98.1 F 80 20 122/76 99 05/11/17 10:00 05/11/17 10:00 05/11/17 10:00 05/11/17 10:00 05/11/17 09:00 Constitutional: No Distress, Calm Neck: Supple Negative JVD Respiratory: Clear to A&P Bilaterally Cardiovascular: S1 S2 Regular Rate and Rhythm Gastrointestinal: Soft Benign Normal Bowel Sounds Ext: Negative Edema Lab Data: CBC, BMP 05/06/17 07:30 05/06/17 11:55 Assessment/Plan ASSESSMENT: 1. Acute renal failure on HD 2. Diastolic LV dysfunction with class I-II NYHA classification LV failure, compensated 3. CAD angina pectoris abnormal EKG with evidence of demand ischemia 4. HTN, at goal 5. Anemia PLAN: 1. Continue Coreg 2. Continue Procardia XL 3. Continue Diovan 4. Continue Hydralazine 5. HD as per renal service Isabelle Murcia MD
--- NOTE | 2017-05-11 17:02 | PN ---
Progress Note, Physician History of Present Illness: Pt seen and examined. No complaints. - Current Medication List Current Medications: Active Medications Calcitriol (Rocaltrol -) 0.5 mcg PO DAILY [facility] Last Admin: 05/11/17 09:13 Dose: 0.5 mcg Calcium Acetate (Phoslo -) 667 mg PO TIDCM [facility] Last Admin: 05/11/17 12:31 Dose: 667 mg Calcium Carbonate/Cholecalciferol (Os-Justin 500+D -) 2 tab PO DAILY [facility] Last Admin: 05/11/17 09:13 Dose: 2 tab Carvedilol (Coreg -) 25 mg PO BID [facility] Last Admin: 05/11/17 09:13 Dose: 25 mg Ferrous Sulfate (Feosol -) 325 mg PO BIDWM [facility] Last Admin: 05/11/17 08:58 Dose: 325 mg Hydralazine HCl (Apresoline -) 100 mg PO TID [facility] Last Admin: 05/11/17 14:48 Dose: Not Given Nifedipine (Procardia Xl -) 90 mg PO DAILY [facility] Last Admin: 05/11/17 09:14 Dose: 90 mg Valsartan (Diovan -) 160 mg PO BID [facility] Last Admin: 05/11/17 09:13 Dose: 160 mg - Objective Vital Signs: Vital Signs Temperature 98.4 F 05/11/17 14:24 Pulse Rate 57 L 05/11/17 14:24 Respiratory Rate 16 05/11/17 14:24 Blood Pressure 117/71 05/11/17 14:24 O2 Sat by Pulse Oximetry (%) 99 05/11/17 09:00 Constitutional: Yes: Calm Eyes: Yes: Conjunctiva Clear HENT: Yes: Atraumatic Neck: Yes: Supple Cardiovascular: Yes: S1, S2 Musculoskeletal: Yes: WNL Edema: No Neurological: Yes: Oriented Psychiatric: Yes: Oriented Labs: CBC, BMP 05/06/17 07:30 05/06/17 11:55 INR, PTT INR 1.07 (0.82-1.09) 03/24/17 20:30 Problem List - Problems (1) ESRD (end stage renal disease) Code(s): N18.6 - END STAGE RENAL DISEASE (2) Hypertension Code(s): I10 - ESSENTIAL (PRIMARY) HYPERTENSION Qualifiers: Hypertension type: essential hypertension Qualified Code(s): I10 - Essential (primary) hypertension (3) Hyperparathyroidism due to renal insufficiency Code(s): N25.81 - SECONDARY HYPERPARATHYROIDISM OF RENAL ORIGIN Assessment/Plan Current Medications Generic Name Dose Route Start Last Admin Trade Name Jenelle PRN Reason Stop Dose Admin Calcitriol 0.5 mcg 04/06/17 11:42 05/11/17 09:13 Rocaltrol - PO 0.5 mcg DAILY [facility] Administration Calcium Acetate 667 mg 03/25/17 17:30 05/11/17 12:31 Phoslo - PO 667 mg TIDCM [facility] Administration Calcium Carbonate/Cholecalciferol 2 tab 03/25/17 15:00 05/11/17 09:13 Os-Justin 500+D - PO 2 tab DAILY [facility] Administration Carvedilol 25 mg 03/25/17 10:00 05/11/17 09:13 Coreg - PO 25 mg BID [facility] Administration Ferrous Sulfate 325 mg 03/28/17 17:30 05/11/17 08:58 Feosol - PO 325 mg BIDWM [facility] Administration Hydralazine HCl 100 mg 05/06/17 05:31 05/11/17 14:48 Apresoline - PO Not Given TID [facility] Nifedipine 90 mg 04/05/17 10:00 05/11/17 09:14 Procardia Xl - PO 90 mg DAILY [facility] Administration Valsartan 160 mg 03/27/17 22:00 05/11/17 09:13 Diovan - PO 160 mg BID [facility] Administration Impression 1. ESRD 2. HTN 3. hypocalcemia improving 4. anemia 5. hyperparathyroidism due to renal disease Plan - HD in Friday - pending outpt placement - epogen for anemia - cont iron supplements - cont current meds Dr Ramos
--- NOTE | 2017-05-11 17:54 | PN ---
Progress Note, Physician History of Present Illness: No new complaints - Current Medication List Current Medications: Active Medications Calcitriol (Rocaltrol -) 0.5 mcg PO DAILY [facility] Last Admin: 05/11/17 09:13 Dose: 0.5 mcg Calcium Acetate (Phoslo -) 667 mg PO TIDCM [facility] Last Admin: 05/11/17 17:30 Dose: 667 mg Calcium Carbonate/Cholecalciferol (Os-Justin 500+D -) 2 tab PO DAILY [facility] Last Admin: 05/11/17 09:13 Dose: 2 tab Carvedilol (Coreg -) 25 mg PO BID [facility] Last Admin: 05/11/17 09:13 Dose: 25 mg Ferrous Sulfate (Feosol -) 325 mg PO BIDWM [facility] Last Admin: 05/11/17 17:30 Dose: 325 mg Hydralazine HCl (Apresoline -) 100 mg PO TID [facility] Last Admin: 05/11/17 14:48 Dose: Not Given Nifedipine (Procardia Xl -) 90 mg PO DAILY [facility] Last Admin: 05/11/17 09:14 Dose: 90 mg Valsartan (Diovan -) 160 mg PO BID [facility] Last Admin: 05/11/17 09:13 Dose: 160 mg - Objective Vital Signs: Vital Signs Temperature 98.3 F 05/11/17 17:07 Pulse Rate 73 05/11/17 17:07 Respiratory Rate 20 05/11/17 17:07 Blood Pressure 130/83 05/11/17 17:07 O2 Sat by Pulse Oximetry (%) 99 05/11/17 09:00 Constitutional: Yes: No Distress Eyes: Yes: WNL HENT: Yes: WNL Neck: Yes: WNL, Supple Cardiovascular: Yes: WNL, Regular Rate and Rhythm Respiratory: Yes: WNL, Regular, CTA Bilaterally Labs: CBC, BMP 05/06/17 07:30 05/06/17 11:55 INR, PTT INR 1.07 (0.82-1.09) 03/24/17 20:30 Problem List - Problems (1) Anemia Code(s): D64.9 - ANEMIA, UNSPECIFIED (2) ESRD (end stage renal disease) Code(s): N18.6 - END STAGE RENAL DISEASE (3) Hypertension Code(s): I10 - ESSENTIAL (PRIMARY) HYPERTENSION Qualifiers: Hypertension type: essential hypertension Qualified Code(s): I10 - Essential (primary) hypertension
[2017-05-12] MEDS: hydrALAZINE HCL 50 MG TABLET (FP) PO SCH ×3 (05:50→21:44)
[2017-05-12] MEDS ORDERED: PT OWN MED DRAWER 7, Y5N ONE (09:32)
[2017-05-12] MEDS: VALSARTAN 160 MG TABLET (UD) PO SCH ×2 (09:39→21:44)
[2017-05-12] MEDS: CALCITRIOL 0.25 MCG CAPSULE (FP) PO SCH (09:40)
[2017-05-12] MEDS: CALCIUM ACETATE 667 MG CAPSULE (FP) PO SCH ×3 (09:40→16:56)
[2017-05-12] MEDS: CARVEDILOL 25 MG TABLET (FP) PO SCH ×2 (09:40→21:44)
[2017-05-12] MEDS: CALCIUM 500MG/VIT-D 200 UNITS COMBO TABLET (FP) PO SCH (09:40)
[2017-05-12] MEDS: NIFEdipine E.R. 90 MG TABLET (FP) PO SCH (09:41)
[2017-05-12] MEDS: FERROUS SO4 325 MG TABLET (FP) PO SCH ×2 (09:41→16:56)
--- NOTE | 2017-05-12 11:18 | PN ---
Progress Note, Physician History of Present Illness: No chest pain or dyspnea. - Current Medication List Current Medications: Active Medications Calcitriol (Rocaltrol -) 0.5 mcg PO DAILY [facility] Last Admin: 05/12/17 09:40 Dose: 0.5 mcg Calcium Acetate (Phoslo -) 667 mg PO TIDCM [facility] Last Admin: 05/12/17 09:40 Dose: 667 mg Calcium Carbonate/Cholecalciferol (Os-Justin 500+D -) 2 tab PO DAILY [facility] Last Admin: 05/12/17 09:40 Dose: 2 tab Carvedilol (Coreg -) 25 mg PO BID [facility] Last Admin: 05/12/17 09:40 Dose: 25 mg Ferrous Sulfate (Feosol -) 325 mg PO BIDWM [facility] Last Admin: 05/12/17 09:41 Dose: 325 mg Hydralazine HCl (Apresoline -) 100 mg PO TID [facility] Last Admin: 05/12/17 05:50 Dose: 100 mg Nifedipine (Procardia Xl -) 90 mg PO DAILY [facility] Last Admin: 05/12/17 09:41 Dose: 90 mg Valsartan (Diovan -) 160 mg PO BID [facility] Last Admin: 05/12/17 09:39 Dose: 160 mg - Objective Vital Signs: Vital Signs Temperature 98.2 F 05/12/17 09:00 Pulse Rate 93 H 05/12/17 09:00 Respiratory Rate 18 05/12/17 09:00 Blood Pressure 148/86 05/12/17 09:00 O2 Sat by Pulse Oximetry (%) 99 05/12/17 09:00 Constitutional: Yes: No Distress, Calm Neck: Yes: Supple Cardiovascular: Yes: Regular Rate and Rhythm Respiratory: Yes: Regular, CTA Bilaterally Gastrointestinal: Yes: Normal Bowel Sounds, Soft Edema: No Labs: CBC, BMP 05/06/17 07:30 05/06/17 11:55 INR, PTT INR 1.07 (0.82-1.09) 03/24/17 20:30 Problem List - Problems (1) Acute on chronic kidney failure Code(s): N17.9 - ACUTE KIDNEY FAILURE, UNSPECIFIED N18.9 - CHRONIC KIDNEY DISEASE, UNSPECIFIED (2) ESRD (end stage renal disease) Code(s): N18.6 - END STAGE RENAL DISEASE (3) Hypertensive cardiomyopathy Code(s): I11.9 - HYPERTENSIVE HEART DISEASE WITHOUT HEART FAILURE I42.9 - CARDIOMYOPATHY, UNSPECIFIED Qualifiers: Heart failure presence: without heart failure Qualified Code(s): I11.9 - Hypertensive heart disease without heart failure; I43 - Cardiomyopathy in diseases classified elsewhere (4) Diastolic dysfunction Code(s): I51.9 - HEART DISEASE, UNSPECIFIED (5) Hypocalcemia Code(s): E83.51 - HYPOCALCEMIA (6) Hyperparathyroidism due to renal insufficiency Code(s): N25.81 - SECONDARY HYPERPARATHYROIDISM OF RENAL ORIGIN Assessment/Plan 03/25/2017 Echo: Normal LV size and fxn, mod cLVH, mild LAE, mild TR, RVSP 30-40 mmHg, mild AR, Tr-mild NC 1. ESRD->HD 2. LV diastolic dysfunction with class I-II NYHA classification LV failure, compensated 3. CAD angina pectoris abnormal EKG with evidence of demand ischemia 4. HTN/HCVD, BP control improved 5. Anemia 6. Hypocalcemia improving 7. Hyperparathyroidism due to renal disease PLAN: 1. Continue Coreg 25 mg bid, Procardia XL 90 qd, Diovan 160 bid and hydralazine 50 tid 2. HD as per renal service, outpatient HD arrangement pending insurance coverage
--- NOTE | 2017-05-12 15:02 | PN ---
Progress Note, Physician History of Present Illness: Pt seen and examined. No complaints. - Current Medication List Current Medications: Active Medications Calcitriol (Rocaltrol -) 0.5 mcg PO DAILY [facility] Last Admin: 05/12/17 09:40 Dose: 0.5 mcg Calcium Acetate (Phoslo -) 667 mg PO TIDCM [facility] Last Admin: 05/12/17 12:25 Dose: 667 mg Calcium Carbonate/Cholecalciferol (Os-Justin 500+D -) 2 tab PO DAILY [facility] Last Admin: 05/12/17 09:40 Dose: 2 tab Carvedilol (Coreg -) 25 mg PO BID [facility] Last Admin: 05/12/17 09:40 Dose: 25 mg Ferrous Sulfate (Feosol -) 325 mg PO BIDWM [facility] Last Admin: 05/12/17 09:41 Dose: 325 mg Hydralazine HCl (Apresoline -) 100 mg PO TID [facility] Last Admin: 05/12/17 14:20 Dose: 100 mg Nifedipine (Procardia Xl -) 90 mg PO DAILY [facility] Last Admin: 05/12/17 09:41 Dose: 90 mg Valsartan (Diovan -) 160 mg PO BID [facility] Last Admin: 05/12/17 09:39 Dose: 160 mg - Objective Vital Signs: Vital Signs Temperature 99 F 05/12/17 14:35 Pulse Rate 83 05/12/17 14:35 Respiratory Rate 18 05/12/17 14:35 Blood Pressure 128/73 05/12/17 14:35 O2 Sat by Pulse Oximetry (%) 99 05/12/17 09:00 Constitutional: Yes: Calm Eyes: Yes: Conjunctiva Clear HENT: Yes: Atraumatic Neck: Yes: Supple Cardiovascular: Yes: S1, S2 Respiratory: Yes: CTA Bilaterally Gastrointestinal: Yes: Soft Genitourinary: Yes: WNL Musculoskeletal: Yes: WNL Edema: No Neurological: Yes: Oriented Psychiatric: Yes: Oriented Labs: CBC, BMP 05/06/17 07:30 05/06/17 11:55 INR, PTT INR 1.07 (0.82-1.09) 03/24/17 20:30 Problem List - Problems (1) ESRD (end stage renal disease) Code(s): N18.6 - END STAGE RENAL DISEASE (2) Hypertension Code(s): I10 - ESSENTIAL (PRIMARY) HYPERTENSION Qualifiers: Hypertension type: essential hypertension Qualified Code(s): I10 - Essential (primary) hypertension (3) Hyperparathyroidism due to renal insufficiency Code(s): N25.81 - SECONDARY HYPERPARATHYROIDISM OF RENAL ORIGIN Assessment/Plan Current Medications Generic Name Dose Route Start Last Admin Trade Name Jenelle PRN Reason Stop Dose Admin Calcitriol 0.5 mcg 04/06/17 11:42 05/12/17 09:40 Rocaltrol - PO 0.5 mcg DAILY [facility] Administration Calcium Acetate 667 mg 03/25/17 17:30 05/12/17 12:25 Phoslo - PO 667 mg TIDCM [facility] Administration Calcium Carbonate/Cholecalciferol 2 tab 03/25/17 15:00 05/12/17 09:40 Os-Justin 500+D - PO 2 tab DAILY [facility] Administration Carvedilol 25 mg 03/25/17 10:00 05/12/17 09:40 Coreg - PO 25 mg BID [facility] Administration Ferrous Sulfate 325 mg 03/28/17 17:30 05/12/17 09:41 Feosol - PO 325 mg BIDWM [facility] Administration Hydralazine HCl 100 mg 05/06/17 05:31 05/12/17 14:20 Apresoline - PO 100 mg TID [facility] Administration Nifedipine 90 mg 04/05/17 10:00 05/12/17 09:41 Procardia Xl - PO 90 mg DAILY [facility] Administration Valsartan 160 mg 03/27/17 22:00 05/12/17 09:39 Diovan - PO 160 mg BID [facility] Administration Impression 1. ESRD 2. HTN 3. hypocalcemia improving 4. anemia 5. hyperparathyroidism due to renal disease Plan - HD in am - epogen for anemia - cont iron supplements - cont current meds - BP is stable, reviewed values - will need placement Dr Ramos
--- NOTE | 2017-05-12 19:31 | PN ---
Progress Note, Physician History of Present Illness: no complaints - Current Medication List Current Medications: Active Medications Calcitriol (Rocaltrol -) 0.5 mcg PO DAILY [facility] Last Admin: 05/12/17 09:40 Dose: 0.5 mcg Calcium Acetate (Phoslo -) 667 mg PO TIDCM [facility] Last Admin: 05/12/17 16:56 Dose: 667 mg Calcium Carbonate/Cholecalciferol (Os-Justin 500+D -) 2 tab PO DAILY [facility] Last Admin: 05/12/17 09:40 Dose: 2 tab Carvedilol (Coreg -) 25 mg PO BID [facility] Last Admin: 05/12/17 09:40 Dose: 25 mg Epoetin Refugio (Epogen -) 4,000 units IVPUSH ONCE ONE Stop: 05/13/17 15:04 Ferrous Sulfate (Feosol -) 325 mg PO BIDWM [facility] Last Admin: 05/12/17 16:56 Dose: 325 mg Heparin Sodium (Porcine) (Heparin -) 1,000 unit IVPUSH ONCE ONE Stop: 05/13/17 15:04 Hydralazine HCl (Apresoline -) 100 mg PO TID [facility] Last Admin: 05/12/17 14:20 Dose: 100 mg Nifedipine (Procardia Xl -) 90 mg PO DAILY [facility] Last Admin: 05/12/17 09:41 Dose: 90 mg Valsartan (Diovan -) 160 mg PO BID [facility] Last Admin: 05/12/17 09:39 Dose: 160 mg - Objective Vital Signs: Vital Signs Temperature 99 F 05/12/17 14:35 Pulse Rate 83 05/12/17 14:35 Respiratory Rate 18 05/12/17 14:35 Blood Pressure 128/73 05/12/17 14:35 O2 Sat by Pulse Oximetry (%) 99 05/12/17 09:00 Constitutional: Yes: No Distress HENT: Yes: Atraumatic Neck: Yes: Supple Cardiovascular: Yes: Regular Rate and Rhythm Respiratory: Yes: CTA Bilaterally Gastrointestinal: Yes: Normal Bowel Sounds Extremities: Yes: WNL Edema: No Peripheral Pulses WNL: Yes Neurological: Yes: Alert, Oriented Labs: CBC, BMP 05/06/17 07:30 05/06/17 11:55 INR, PTT INR 1.07 (0.82-1.09) 03/24/17 20:30 Problem List - Problems (1) Acute on chronic kidney failure Assessment/Plan: ON HD renal on board Code(s): N17.9 - ACUTE KIDNEY FAILURE, UNSPECIFIED N18.9 - CHRONIC KIDNEY DISEASE, UNSPECIFIED (2) ESRD (end stage renal disease) Assessment/Plan: on hd Code(s): N18.6 - END STAGE RENAL DISEASE (3) Hypertension Assessment/Plan: ON MEDS STABLE Code(s): I10 - ESSENTIAL (PRIMARY) HYPERTENSION Qualifiers: Hypertension type: essential hypertension Qualified Code(s): I10 - Essential (primary) hypertension Assessment/Plan pt awaiting insurance...dc planing [facility] please
[2017-05-13] MEDS: hydrALAZINE HCL 50 MG TABLET (FP) PO SCH ×3 (06:36→22:04)
[2017-05-13] MEDS: FERROUS SO4 325 MG TABLET (FP) PO SCH ×2 (08:26→17:52)
[2017-05-13] MEDS: CALCIUM ACETATE 667 MG CAPSULE (FP) PO SCH ×3 (08:26→17:53)
[2017-05-13 08:37] LABS: MCH 26.8 pg (25.7-33.7); MCHC 32.9 g/dl (32.0-35.9); MEAN CELL VOLUME 81.5 fl (80-96); MEAN PLT VOLUME 7.3 fl (7.5-11.1); PLATELET COUNT 208 K/MM3 (134-434); RDW 19.9 % (11.9-15.9); WHITE BLOOD COUNT 6.8 K/mm3 (4.0-10.0)
[2017-05-13 08:58] LABS: ALBUMIN 3.7 g/dl (3.4-5.0); CALCIUM 9.3 mg/dL (8.5-10.1)
[2017-05-13 09:05] LABS: BILIRUBIN,TOTAL 0.4 mg/dL (0.2-1.0); COCKROFT - GAULT 7.66; TOT PROT 7.1 g/dl (6.4-8.2)
[2017-05-13] MEDS ORDERED: PT OWN MED DRAWER 7, Y5N ONE (09:55)
[2017-05-13] MEDS: VALSARTAN 160 MG TABLET (UD) PO SCH ×2 (09:57→22:04)
[2017-05-13] MEDS: NIFEdipine E.R. 90 MG TABLET (FP) PO SCH (09:57)
[2017-05-13] MEDS: CALCITRIOL 0.25 MCG CAPSULE (FP) PO SCH (09:57)
[2017-05-13] MEDS: CARVEDILOL 25 MG TABLET (FP) PO SCH ×2 (09:58→22:04)
[2017-05-13] MEDS: CALCIUM 500MG/VIT-D 200 UNITS COMBO TABLET (FP) PO SCH (09:58)
[2017-05-13 10:03] LABS: CREATININE 11.6 mg/dL (0.7-1.3)
[2017-05-13] MEDS ORDERED: EPOETIN ALFA 2,000 UNITS/1 ML VIAL IVPUSH ONE (12:00)
[2017-05-13] MEDS ORDERED: HEPARIN NA (PORCINE) 5,000 UNITS/ML 1ML VIAL IVPUSH ONE (12:00)
--- NOTE | 2017-05-13 14:30 | PN ---
Progress Note, Physician History of Present Illness: Pt seen and examined at bedside. He is awake and alert. He is getting HD. - Current Medication List Current Medications: Active Medications Calcitriol (Rocaltrol -) 0.5 mcg PO DAILY [facility] Last Admin: 05/13/17 09:57 Dose: 0.5 mcg Calcium Acetate (Phoslo -) 667 mg PO TIDCM [facility] Last Admin: 05/13/17 12:48 Dose: Not Given Calcium Carbonate/Cholecalciferol (Os-Justin 500+D -) 2 tab PO DAILY [facility] Last Admin: 05/13/17 09:58 Dose: 2 tab Carvedilol (Coreg -) 25 mg PO BID [facility] Last Admin: 05/13/17 09:58 Dose: 25 mg Ferrous Sulfate (Feosol -) 325 mg PO BIDWM [facility] Last Admin: 05/13/17 08:26 Dose: 325 mg Hydralazine HCl (Apresoline -) 100 mg PO TID [facility] Last Admin: 05/13/17 06:36 Dose: 100 mg Nifedipine (Procardia Xl -) 90 mg PO DAILY [facility] Last Admin: 05/13/17 09:57 Dose: 90 mg Valsartan (Diovan -) 160 mg PO BID [facility] Last Admin: 05/13/17 09:57 Dose: 160 mg - Objective Vital Signs: Vital Signs Temperature 98.7 F 05/13/17 11:00 Pulse Rate 75 05/13/17 14:05 Respiratory Rate 18 05/13/17 14:05 Blood Pressure 140/101 05/13/17 14:05 O2 Sat by Pulse Oximetry (%) 100 05/13/17 09:00 Constitutional: Yes: Calm Eyes: Yes: Conjunctiva Clear HENT: Yes: Atraumatic Neck: Yes: Supple Cardiovascular: Yes: S1, S2 Respiratory: Yes: CTA Bilaterally Gastrointestinal: Yes: Soft Genitourinary: Yes: WNL Musculoskeletal: Yes: WNL Extremities: Yes: WNL Edema: No Neurological: Yes: Oriented Psychiatric: Yes: Oriented Labs: CBC, BMP 05/13/17 08:10 05/13/17 08:10 INR, PTT INR 1.07 (0.82-1.09) 03/24/17 20:30 Problem List - Problems (1) ESRD (end stage renal disease) Code(s): N18.6 - END STAGE RENAL DISEASE (2) Hypertension Code(s): I10 - ESSENTIAL (PRIMARY) HYPERTENSION Qualifiers: Hypertension type: essential hypertension Qualified Code(s): I10 - Essential (primary) hypertension (3) Hyperparathyroidism due to renal insufficiency Code(s): N25.81 - SECONDARY HYPERPARATHYROIDISM OF RENAL ORIGIN Assessment/Plan Current Medications Generic Name Dose Route Start Last Admin Trade Name Murtazaq PRN Reason Stop Dose Admin Calcitriol 0.5 mcg 04/06/17 11:42 05/13/17 09:57 Rocaltrol - PO 0.5 mcg DAILY [facility] Administration Calcium Acetate 667 mg 03/25/17 17:30 05/13/17 12:48 Phoslo - PO Not Given TIDCM [facility] Calcium Carbonate/Cholecalciferol 2 tab 03/25/17 15:00 05/13/17 09:58 Os-Justin 500+D - PO 2 tab DAILY [facility] Administration Carvedilol 25 mg 03/25/17 10:00 05/13/17 09:58 Coreg - PO 25 mg BID [facility] Administration Ferrous Sulfate 325 mg 03/28/17 17:30 05/13/17 08:26 Feosol - PO 325 mg BIDWM [facility] Administration Hydralazine HCl 100 mg 05/06/17 05:31 05/13/17 14:29 Apresoline - PO Not Given TID [facility] Nifedipine 90 mg 04/05/17 10:00 05/13/17 09:57 Procardia Xl - PO 90 mg DAILY [facility] Administration Valsartan 160 mg 03/27/17 22:00 05/13/17 09:57 Diovan - PO 160 mg BID [facility] Administration Impression 1. ESRD 2. HTN 3. hypocalcemia improving 4. anemia 5. hyperparathyroidism due to renal disease Plan - HD today - epogen for anemia - monitor blood pressure - no acute change in management Dr Ramos
--- NOTE | 2017-05-13 18:35 | PN ---
Progress Note, Physician History of Present Illness: no complaints - Current Medication List Current Medications: Active Medications Calcitriol (Rocaltrol -) 0.5 mcg PO DAILY [facility] Last Admin: 05/13/17 09:57 Dose: 0.5 mcg Calcium Acetate (Phoslo -) 667 mg PO TIDCM [facility] Last Admin: 05/13/17 17:53 Dose: 667 mg Calcium Carbonate/Cholecalciferol (Os-Justin 500+D -) 2 tab PO DAILY [facility] Last Admin: 05/13/17 09:58 Dose: 2 tab Carvedilol (Coreg -) 25 mg PO BID [facility] Last Admin: 05/13/17 09:58 Dose: 25 mg Ferrous Sulfate (Feosol -) 325 mg PO BIDWM [facility] Last Admin: 05/13/17 17:52 Dose: 325 mg Hydralazine HCl (Apresoline -) 100 mg PO TID [facility] Last Admin: 05/13/17 14:29 Dose: Not Given Nifedipine (Procardia Xl -) 90 mg PO DAILY [facility] Last Admin: 05/13/17 09:57 Dose: 90 mg Valsartan (Diovan -) 160 mg PO BID [facility] Last Admin: 05/13/17 09:57 Dose: 160 mg - Objective Vital Signs: Vital Signs Temperature 98.8 F 05/13/17 17:37 Pulse Rate 84 05/13/17 17:37 Respiratory Rate 20 05/13/17 17:37 Blood Pressure 151/87 05/13/17 17:37 O2 Sat by Pulse Oximetry (%) 100 05/13/17 09:00 Constitutional: Yes: No Distress HENT: Yes: Atraumatic Neck: Yes: Supple Cardiovascular: Yes: Regular Rate and Rhythm Respiratory: Yes: CTA Bilaterally Gastrointestinal: Yes: Normal Bowel Sounds Extremities: Yes: WNL Neurological: Yes: Alert, Oriented Labs: CBC, BMP 05/13/17 08:10 05/13/17 08:10 INR, PTT INR 1.07 (0.82-1.09) 03/24/17 20:30 Problem List - Problems (1) Acute on chronic kidney failure Assessment/Plan: ON HD renal on board Code(s): N17.9 - ACUTE KIDNEY FAILURE, UNSPECIFIED N18.9 - CHRONIC KIDNEY DISEASE, UNSPECIFIED (2) ESRD (end stage renal disease) Assessment/Plan: on hd Code(s): N18.6 - END STAGE RENAL DISEASE (3) Hypertension Assessment/Plan: ON MEDS STABLE Code(s): I10 - ESSENTIAL (PRIMARY) HYPERTENSION Qualifiers: Hypertension type: essential hypertension Qualified Code(s): I10 - Essential (primary) hypertension Assessment/Plan pt awaiting insurance.. dc planning please
[2017-05-14] MEDS: hydrALAZINE HCL 50 MG TABLET (FP) PO SCH ×3 (06:07→22:27)
[2017-05-14] MEDS: FERROUS SO4 325 MG TABLET (FP) PO SCH ×2 (08:34→18:11)
[2017-05-14] MEDS: CALCIUM ACETATE 667 MG CAPSULE (FP) PO SCH ×3 (08:36→18:16)
[2017-05-14] MEDS ORDERED: PT OWN MED DRAWER 7, Y5N ONE (08:40)
[2017-05-14] MEDS: VALSARTAN 160 MG TABLET (UD) PO SCH ×3 (08:41→22:27)
[2017-05-14] MEDS: CARVEDILOL 25 MG TABLET (FP) PO SCH ×3 (08:41→22:27)
[2017-05-14] MEDS: NIFEdipine E.R. 90 MG TABLET (FP) PO SCH ×2 (08:41→10:00)
--- NOTE | 2017-05-14 10:14 | PN ---
Progress Note, Physician History of Present Illness: No chest pain or dyspnea. - Current Medication List Current Medications: Active Medications Calcitriol (Rocaltrol -) 0.5 mcg PO DAILY [facility] Last Admin: 05/13/17 09:57 Dose: 0.5 mcg Calcium Acetate (Phoslo -) 667 mg PO TIDCM [facility] Last Admin: 05/14/17 08:36 Dose: 667 mg Calcium Carbonate/Cholecalciferol (Os-Justin 500+D -) 2 tab PO DAILY [facility] Last Admin: 05/13/17 09:58 Dose: 2 tab Carvedilol (Coreg -) 25 mg PO BID [facility] Last Admin: 05/14/17 10:00 Dose: Not Given Ferrous Sulfate (Feosol -) 325 mg PO BIDWM [facility] Last Admin: 05/14/17 08:34 Dose: 325 mg Hydralazine HCl (Apresoline -) 100 mg PO TID [facility] Last Admin: 05/14/17 06:07 Dose: 100 mg Nifedipine (Procardia Xl -) 90 mg PO DAILY [facility] Last Admin: 05/14/17 10:00 Dose: Not Given Valsartan (Diovan -) 160 mg PO BID [facility] Last Admin: 05/14/17 10:00 Dose: Not Given - Objective Vital Signs: Vital Signs Temperature 97.3 F L 05/14/17 08:42 Pulse Rate 81 05/14/17 09:59 Respiratory Rate 18 05/14/17 09:59 Blood Pressure 150/72 05/14/17 09:59 O2 Sat by Pulse Oximetry (%) 100 05/13/17 09:00 Constitutional: Yes: No Distress, Calm Neck: Yes: Supple Cardiovascular: Yes: Regular Rate and Rhythm Respiratory: Yes: Regular, Diminished Gastrointestinal: Yes: Normal Bowel Sounds, Soft Edema: No Labs: CBC, BMP 05/13/17 08:10 05/13/17 08:10 INR, PTT INR 1.07 (0.82-1.09) 03/24/17 20:30 Problem List - Problems (1) Acute on chronic kidney failure Code(s): N17.9 - ACUTE KIDNEY FAILURE, UNSPECIFIED N18.9 - CHRONIC KIDNEY DISEASE, UNSPECIFIED (2) ESRD (end stage renal disease) Code(s): N18.6 - END STAGE RENAL DISEASE (3) Hypertensive cardiomyopathy Code(s): I11.9 - HYPERTENSIVE HEART DISEASE WITHOUT HEART FAILURE I42.9 - CARDIOMYOPATHY, UNSPECIFIED Qualifiers: Heart failure presence: without heart failure Qualified Code(s): I11.9 - Hypertensive heart disease without heart failure; I43 - Cardiomyopathy in diseases classified elsewhere (4) Diastolic dysfunction Code(s): I51.9 - HEART DISEASE, UNSPECIFIED (5) Hypocalcemia Code(s): E83.51 - HYPOCALCEMIA (6) Hyperparathyroidism due to renal insufficiency Code(s): N25.81 - SECONDARY HYPERPARATHYROIDISM OF RENAL ORIGIN Assessment/Plan 03/25/2017 Echo: Normal LV size and fxn, mod cLVH, mild LAE, mild TR, RVSP 30-40 mmHg, mild AR, Tr-mild [place] 1. ESRD->HD 2. LV diastolic dysfunction with class I-II NYHA classification LV failure, compensated 3. CAD angina pectoris abnormal EKG with evidence of demand ischemia 4. HTN/HCVD, BP control improved 5. Anemia 6. Hypocalcemia improving 7. Hyperparathyroidism due to renal disease PLAN: 1. Continue Coreg 25 mg bid, Procardia XL 90 qd, Diovan 160 bid and hydralazine 50 tid 2. HD as per renal service, outpatient HD arrangement pending insurance coverage
[2017-05-14] MEDS: CALCIUM 500MG/VIT-D 200 UNITS COMBO TABLET (FP) PO SCH (10:17)
[2017-05-14] MEDS: CALCITRIOL 0.25 MCG CAPSULE (FP) PO SCH (10:17)
--- NOTE | 2017-05-14 13:21 | PN ---
Progress Note, Physician History of Present Illness: no complaints - Current Medication List Current Medications: Active Medications Calcitriol (Rocaltrol -) 0.5 mcg PO DAILY [facility] Last Admin: 05/14/17 10:17 Dose: 0.5 mcg Calcium Acetate (Phoslo -) 667 mg PO TIDCM [facility] Last Admin: 05/14/17 11:50 Dose: 667 mg Calcium Carbonate/Cholecalciferol (Os-Justin 500+D -) 2 tab PO DAILY [facility] Last Admin: 05/14/17 10:17 Dose: 2 tab Carvedilol (Coreg -) 25 mg PO BID [facility] Last Admin: 05/14/17 10:00 Dose: Not Given Ferrous Sulfate (Feosol -) 325 mg PO BIDWM [facility] Last Admin: 05/14/17 08:34 Dose: 325 mg Hydralazine HCl (Apresoline -) 100 mg PO TID [facility] Last Admin: 05/14/17 06:07 Dose: 100 mg Nifedipine (Procardia Xl -) 90 mg PO DAILY [facility] Last Admin: 05/14/17 10:00 Dose: Not Given Valsartan (Diovan -) 160 mg PO BID [facility] Last Admin: 05/14/17 10:00 Dose: Not Given - Objective Vital Signs: Vital Signs Temperature 97.3 F L 05/14/17 08:42 Pulse Rate 81 05/14/17 09:59 Respiratory Rate 18 05/14/17 09:59 Blood Pressure 150/72 05/14/17 09:59 O2 Sat by Pulse Oximetry (%) 100 05/14/17 10:00 Constitutional: Yes: No Distress HENT: Yes: Atraumatic Neck: Yes: Supple Cardiovascular: Yes: Regular Rate and Rhythm Respiratory: Yes: CTA Bilaterally Gastrointestinal: Yes: Normal Bowel Sounds Extremities: Yes: WNL Neurological: Yes: Alert, Oriented Labs: CBC, BMP 05/13/17 08:10 05/13/17 08:10 INR, PTT INR 1.07 (0.82-1.09) 03/24/17 20:30 Problem List - Problems (1) Acute on chronic kidney failure Assessment/Plan: ON HD renal on board Code(s): N17.9 - ACUTE KIDNEY FAILURE, UNSPECIFIED N18.9 - CHRONIC KIDNEY DISEASE, UNSPECIFIED (2) ESRD (end stage renal disease) Assessment/Plan: on hd Code(s): N18.6 - END STAGE RENAL DISEASE (3) Hypertension Assessment/Plan: ON MEDS STABLE Code(s): I10 - ESSENTIAL (PRIMARY) HYPERTENSION Qualifiers: Hypertension type: essential hypertension Qualified Code(s): I10 - Essential (primary) hypertension Assessment/Plan pt awaiting insurance.. dc planning please
--- NOTE | 2017-05-14 18:14 | PN ---
Progress Note, Physician History of Present Illness: Pt seen and examined at bedside. No complaints. - Current Medication List Current Medications: Active Medications Calcitriol (Rocaltrol -) 0.5 mcg PO DAILY [facility] Last Admin: 05/14/17 10:17 Dose: 0.5 mcg Calcium Acetate (Phoslo -) 667 mg PO TIDCM [facility] Last Admin: 05/14/17 11:50 Dose: 667 mg Calcium Carbonate/Cholecalciferol (Os-Justin 500+D -) 2 tab PO DAILY [facility] Last Admin: 05/14/17 10:17 Dose: 2 tab Carvedilol (Coreg -) 25 mg PO BID [facility] Last Admin: 05/14/17 10:00 Dose: Not Given Ferrous Sulfate (Feosol -) 325 mg PO BIDWM [facility] Last Admin: 05/14/17 08:34 Dose: 325 mg Hydralazine HCl (Apresoline -) 100 mg PO TID [facility] Last Admin: 05/14/17 16:03 Dose: 100 mg Nifedipine (Procardia Xl -) 90 mg PO DAILY [facility] Last Admin: 05/14/17 10:00 Dose: Not Given Valsartan (Diovan -) 160 mg PO BID [facility] Last Admin: 05/14/17 10:00 Dose: Not Given - Objective Vital Signs: Vital Signs Temperature 98.1 F 05/14/17 17:18 Pulse Rate 75 05/14/17 16:03 Respiratory Rate 18 05/14/17 16:03 Blood Pressure 129/82 05/14/17 16:03 O2 Sat by Pulse Oximetry (%) 100 05/14/17 10:00 Constitutional: Yes: Calm Eyes: Yes: Conjunctiva Clear HENT: Yes: Atraumatic Neck: Yes: Supple Cardiovascular: Yes: S1, S2 Respiratory: Yes: CTA Bilaterally Genitourinary: Yes: WNL Musculoskeletal: Yes: WNL Edema: No Neurological: Yes: Oriented Psychiatric: Yes: Oriented Labs: CBC, BMP 05/13/17 08:10 05/13/17 08:10 INR, PTT INR 1.07 (0.82-1.09) 03/24/17 20:30 Problem List - Problems (1) ESRD (end stage renal disease) Code(s): N18.6 - END STAGE RENAL DISEASE (2) Hypertension Code(s): I10 - ESSENTIAL (PRIMARY) HYPERTENSION Qualifiers: Hypertension type: essential hypertension Qualified Code(s): I10 - Essential (primary) hypertension (3) Hyperparathyroidism due to renal insufficiency Code(s): N25.81 - SECONDARY HYPERPARATHYROIDISM OF RENAL ORIGIN Assessment/Plan Current Medications Generic Name Dose Route Start Last Admin Trade Name Murtazaq PRN Reason Stop Dose Admin Calcitriol 0.5 mcg 04/06/17 11:42 05/14/17 10:17 Rocaltrol - PO 0.5 mcg DAILY [facility] Administration Calcium Acetate 667 mg 03/25/17 17:30 05/14/17 11:50 Phoslo - PO 667 mg TIDCM [facility] Administration Calcium Carbonate/Cholecalciferol 2 tab 03/25/17 15:00 05/14/17 10:17 Os-Justin 500+D - PO 2 tab DAILY [facility] Administration Carvedilol 25 mg 03/25/17 10:00 05/14/17 10:00 Coreg - PO Not Given BID [facility] Ferrous Sulfate 325 mg 03/28/17 17:30 05/14/17 08:34 Feosol - PO 325 mg BIDWM [facility] Administration Hydralazine HCl 100 mg 05/06/17 05:31 05/14/17 16:03 Apresoline - PO 100 mg TID [facility] Administration Nifedipine 90 mg 04/05/17 10:00 05/14/17 10:00 Procardia Xl - PO Not Given DAILY [facility] Valsartan 160 mg 03/27/17 22:00 05/14/17 10:00 Diovan - PO Not Given BID [facility] Impression 1. ESRD 2. HTN 3. hypocalcemia improving 4. anemia 5. hyperparathyroidism due to renal disease Plan - HD in am - will need fistula - epogen for anemia - monitor blood pressure - no acute change in management Dr Ramos
[2017-05-15] MEDS: hydrALAZINE HCL 50 MG TABLET (FP) PO SCH ×3 (05:51→20:59)
[2017-05-15 08:27] LABS: MCH 27.1 pg (25.7-33.7); MCHC 33.3 g/dl (32.0-35.9); MEAN CELL VOLUME 81.5 fl (80-96); MEAN PLT VOLUME 7.6 fl (7.5-11.1); PLATELET COUNT 168 K/MM3 (134-434); RDW 20.1 % (11.9-15.9); WHITE BLOOD COUNT 4.7 K/mm3 (4.0-10.0)
[2017-05-15] MEDS ORDERED: HEPARIN NA (PORCINE) 5,000 UNITS/ML 1ML VIAL IVPUSH ONE (09:00)
[2017-05-15] MEDS ORDERED: EPOETIN ALFA 2,000 UNITS/1 ML VIAL IVPUSH ONE (09:00)
[2017-05-15 09:24] LABS: CALCIUM 8.5 mg/dL (8.5-10.1); COCKROFT - GAULT 9.33
[2017-05-15 10:25] LABS: CREATININE 9.4 mg/dL (0.7-1.3)
--- NOTE | 2017-05-15 13:19 | PN ---
Progress Note, Physician History of Present Illness: No chest pain or dyspnea. - Current Medication List Current Medications: Active Medications Calcitriol (Rocaltrol -) 0.5 mcg PO DAILY [facility] Last Admin: 05/14/17 10:17 Dose: 0.5 mcg Calcium Acetate (Phoslo -) 667 mg PO TIDCM [facility] Last Admin: 05/14/17 18:16 Dose: 667 mg Calcium Carbonate/Cholecalciferol (Os-Justin 500+D -) 2 tab PO DAILY [facility] Last Admin: 05/14/17 10:17 Dose: 2 tab Carvedilol (Coreg -) 25 mg PO BID [facility] Last Admin: 05/14/17 22:27 Dose: 25 mg Ferrous Sulfate (Feosol -) 325 mg PO BIDWM [facility] Last Admin: 05/14/17 18:11 Dose: 325 mg Hydralazine HCl (Apresoline -) 100 mg PO TID [facility] Last Admin: 05/15/17 05:51 Dose: 100 mg Nifedipine (Procardia Xl -) 90 mg PO DAILY [facility] Last Admin: 05/14/17 10:00 Dose: Not Given Valsartan (Diovan -) 160 mg PO BID [facility] Last Admin: 05/14/17 22:27 Dose: 160 mg - Objective Vital Signs: Vital Signs Temperature 97.7 F 05/15/17 06:45 Pulse Rate 67 05/15/17 11:15 Respiratory Rate 18 05/15/17 11:15 Blood Pressure 151/99 05/15/17 11:15 O2 Sat by Pulse Oximetry (%) 100 05/14/17 10:00 Constitutional: Yes: No Distress, Calm Neck: Yes: Supple Cardiovascular: Yes: Regular Rate and Rhythm Respiratory: Yes: Regular, CTA Bilaterally Gastrointestinal: Yes: Normal Bowel Sounds, Soft Edema: No Labs: CBC, BMP 05/15/17 07:00 05/15/17 07:00 INR, PTT INR 1.07 (0.82-1.09) 03/24/17 20:30 Problem List - Problems (1) Acute on chronic kidney failure Code(s): N17.9 - ACUTE KIDNEY FAILURE, UNSPECIFIED N18.9 - CHRONIC KIDNEY DISEASE, UNSPECIFIED (2) ESRD (end stage renal disease) Code(s): N18.6 - END STAGE RENAL DISEASE (3) Hypertensive cardiomyopathy Code(s): I11.9 - HYPERTENSIVE HEART DISEASE WITHOUT HEART FAILURE I42.9 - CARDIOMYOPATHY, UNSPECIFIED Qualifiers: Heart failure presence: without heart failure Qualified Code(s): I11.9 - Hypertensive heart disease without heart failure; I43 - Cardiomyopathy in diseases classified elsewhere (4) Diastolic dysfunction Code(s): I51.9 - HEART DISEASE, UNSPECIFIED (5) Hypocalcemia Code(s): E83.51 - HYPOCALCEMIA (6) Hyperparathyroidism due to renal insufficiency Code(s): N25.81 - SECONDARY HYPERPARATHYROIDISM OF RENAL ORIGIN Assessment/Plan 03/25/2017 Echo: Normal LV size and fxn, mod cLVH, mild LAE, mild TR, RVSP 30-40 mmHg, mild AR, Tr-mild [place] 1. ESRD->HD 2. LV diastolic dysfunction with class I-II NYHA classification LV failure, compensated 3. CAD angina pectoris abnormal EKG with evidence of demand ischemia 4. HTN/HCVD, BP control improved 5. Anemia 6. Hypocalcemia improving 7. Hyperparathyroidism due to renal disease PLAN: 1. Continue Coreg 25 mg bid, Procardia XL 90 qd, Diovan 160 bid and hydralazine 50 tid 2. HD as per renal service, outpatient HD arrangement pending insurance coverage
[2017-05-15] MEDS: CALCIUM ACETATE 667 MG CAPSULE (FP) PO SCH ×3 (13:28→17:48)
[2017-05-15] MEDS: FERROUS SO4 325 MG TABLET (FP) PO SCH ×2 (13:28→17:48)
[2017-05-15] MEDS: VALSARTAN 160 MG TABLET (UD) PO SCH ×2 (13:40→20:59)
[2017-05-15] MEDS: CALCIUM 500MG/VIT-D 200 UNITS COMBO TABLET (FP) PO SCH (13:40)
[2017-05-15] MEDS: CARVEDILOL 25 MG TABLET (FP) PO SCH ×2 (13:41→20:59)
[2017-05-15] MEDS: CALCITRIOL 0.25 MCG CAPSULE (FP) PO SCH (13:41)
[2017-05-15] MEDS: NIFEdipine E.R. 90 MG TABLET (FP) PO SCH (13:42)
--- NOTE | 2017-05-15 16:05 | PN ---
Progress Note, Physician History of Present Illness: no complaints - Current Medication List Current Medications: Active Medications Calcitriol (Rocaltrol -) 0.5 mcg PO DAILY [facility] Last Admin: 05/15/17 13:41 Dose: 0.5 mcg Calcium Acetate (Phoslo -) 667 mg PO TIDCM [facility] Last Admin: 05/15/17 13:40 Dose: 667 mg Calcium Carbonate/Cholecalciferol (Os-Justin 500+D -) 2 tab PO DAILY [facility] Last Admin: 05/15/17 13:40 Dose: 2 tab Carvedilol (Coreg -) 25 mg PO BID [facility] Last Admin: 05/15/17 13:41 Dose: 25 mg Ferrous Sulfate (Feosol -) 325 mg PO BIDWM [facility] Last Admin: 05/15/17 13:28 Dose: Not Given Hydralazine HCl (Apresoline -) 100 mg PO TID [facility] Last Admin: 05/15/17 13:42 Dose: 100 mg Nifedipine (Procardia Xl -) 90 mg PO DAILY [facility] Last Admin: 05/15/17 13:42 Dose: 90 mg Valsartan (Diovan -) 160 mg PO BID [facility] Last Admin: 05/15/17 13:40 Dose: 160 mg - Objective Vital Signs: Vital Signs Temperature 98.2 F 05/15/17 13:43 Pulse Rate 92 H 05/15/17 13:43 Respiratory Rate 18 05/15/17 13:43 Blood Pressure 151/91 05/15/17 13:43 O2 Sat by Pulse Oximetry (%) 100 05/15/17 10:00 Constitutional: Yes: No Distress HENT: Yes: Atraumatic Neck: Yes: Supple Cardiovascular: Yes: Regular Rate and Rhythm Respiratory: Yes: CTA Bilaterally Gastrointestinal: Yes: Normal Bowel Sounds Extremities: Yes: WNL Neurological: Yes: Alert, Oriented Labs: CBC, BMP 05/15/17 07:00 05/15/17 07:00 INR, PTT INR 1.07 (0.82-1.09) 03/24/17 20:30 Problem List - Problems (1) Acute on chronic kidney failure Assessment/Plan: ON HD renal on board Code(s): N17.9 - ACUTE KIDNEY FAILURE, UNSPECIFIED N18.9 - CHRONIC KIDNEY DISEASE, UNSPECIFIED (2) ESRD (end stage renal disease) Assessment/Plan: on hd Code(s): N18.6 - END STAGE RENAL DISEASE (3) Hypertension Assessment/Plan: ON MEDS STABLE Code(s): I10 - ESSENTIAL (PRIMARY) HYPERTENSION Qualifiers: Hypertension type: essential hypertension Qualified Code(s): I10 - Essential (primary) hypertension Assessment/Plan pt awaiting insurance.. dc planning please
--- NOTE | 2017-05-15 17:08 | PN ---
Progress Note, Physician History of Present Illness: Pt seen and examined at bedside. He is awake and alert. He tolerated HD . - Current Medication List Current Medications: Active Medications Calcitriol (Rocaltrol -) 0.5 mcg PO DAILY [facility] Last Admin: 05/15/17 13:41 Dose: 0.5 mcg Calcium Acetate (Phoslo -) 667 mg PO TIDCM [facility] Last Admin: 05/15/17 13:40 Dose: 667 mg Calcium Carbonate/Cholecalciferol (Os-Justin 500+D -) 2 tab PO DAILY [facility] Last Admin: 05/15/17 13:40 Dose: 2 tab Carvedilol (Coreg -) 25 mg PO BID [facility] Last Admin: 05/15/17 13:41 Dose: 25 mg Ferrous Sulfate (Feosol -) 325 mg PO BIDWM [facility] Last Admin: 05/15/17 13:28 Dose: Not Given Hydralazine HCl (Apresoline -) 100 mg PO TID [facility] Last Admin: 05/15/17 13:42 Dose: 100 mg Nifedipine (Procardia Xl -) 90 mg PO DAILY [facility] Last Admin: 05/15/17 13:42 Dose: 90 mg Valsartan (Diovan -) 160 mg PO BID [facility] Last Admin: 05/15/17 13:40 Dose: 160 mg - Objective Vital Signs: Vital Signs Temperature 98.2 F 05/15/17 13:43 Pulse Rate 92 H 05/15/17 13:43 Respiratory Rate 18 05/15/17 13:43 Blood Pressure 151/91 05/15/17 13:43 O2 Sat by Pulse Oximetry (%) 100 05/15/17 10:00 Constitutional: Yes: Calm Eyes: Yes: Conjunctiva Clear HENT: Yes: Atraumatic Neck: Yes: Supple Cardiovascular: Yes: S1, S2 Respiratory: Yes: CTA Bilaterally Gastrointestinal: Yes: Normal Bowel Sounds, Soft Genitourinary: Yes: WNL Musculoskeletal: Yes: WNL Edema: No Neurological: Yes: Oriented Psychiatric: Yes: Oriented Labs: CBC, BMP 05/15/17 07:00 05/15/17 07:00 INR, PTT INR 1.07 (0.82-1.09) 03/24/17 20:30 Problem List - Problems (1) ESRD (end stage renal disease) Code(s): N18.6 - END STAGE RENAL DISEASE (2) Hypertension Code(s): I10 - ESSENTIAL (PRIMARY) HYPERTENSION Qualifiers: Hypertension type: essential hypertension Qualified Code(s): I10 - Essential (primary) hypertension (3) Hyperparathyroidism due to renal insufficiency Code(s): N25.81 - SECONDARY HYPERPARATHYROIDISM OF RENAL ORIGIN Assessment/Plan Current Medications Generic Name Dose Route Start Last Admin Trade Name Murtazaq PRN Reason Stop Dose Admin Calcitriol 0.5 mcg 04/06/17 11:42 05/15/17 13:41 Rocaltrol - PO 0.5 mcg DAILY [facility] Administration Calcium Acetate 667 mg 03/25/17 17:30 05/15/17 13:40 Phoslo - PO 667 mg TIDCM [facility] Administration Calcium Carbonate/Cholecalciferol 2 tab 03/25/17 15:00 05/15/17 13:40 Os-Justin 500+D - PO 2 tab DAILY [facility] Administration Carvedilol 25 mg 03/25/17 10:00 05/15/17 13:41 Coreg - PO 25 mg BID [facility] Administration Ferrous Sulfate 325 mg 03/28/17 17:30 05/15/17 13:28 Feosol - PO Not Given BIDWM [facility] Hydralazine HCl 100 mg 05/06/17 05:31 05/15/17 13:42 Apresoline - PO 100 mg TID [facility] Administration Nifedipine 90 mg 04/05/17 10:00 05/15/17 13:42 Procardia Xl - PO 90 mg DAILY [facility] Administration Valsartan 160 mg 03/27/17 22:00 05/15/17 13:40 Diovan - PO 160 mg BID [facility] Administration Impression 1. ESRD 2. HTN 3. hypocalcemia improving 4. anemia 5. hyperparathyroidism due to renal disease Plan - pt tolerated HD today - needs placement - will need fistula - epogen for anemia - monitor blood pressure - no acute change in management Dr Ramos
[2017-05-16] MEDS: hydrALAZINE HCL 50 MG TABLET (FP) PO SCH ×3 (06:20→21:11)
[2017-05-16] MEDS: CALCIUM ACETATE 667 MG CAPSULE (FP) PO SCH ×3 (08:26→16:51)
[2017-05-16] MEDS: FERROUS SO4 325 MG TABLET (FP) PO SCH ×2 (08:26→16:51)
[2017-05-16] MEDS ORDERED: PT OWN MED DRAWER 7, Y5N ONE (10:14)
[2017-05-16] MEDS: CARVEDILOL 25 MG TABLET (FP) PO SCH ×2 (10:15→21:11)
[2017-05-16] MEDS: VALSARTAN 160 MG TABLET (UD) PO SCH ×2 (10:15→21:12)
[2017-05-16] MEDS: CALCIUM 500MG/VIT-D 200 UNITS COMBO TABLET (FP) PO SCH (10:15)
[2017-05-16] MEDS: NIFEdipine E.R. 90 MG TABLET (FP) PO SCH (10:15)
[2017-05-16] MEDS: CALCITRIOL 0.25 MCG CAPSULE (FP) PO SCH (10:16)
--- NOTE | 2017-05-16 12:20 | PN ---
Progress Note, Physician History of Present Illness: No chest pain or dyspnea. - Current Medication List Current Medications: Active Medications Calcitriol (Rocaltrol -) 0.5 mcg PO DAILY [facility] Last Admin: 05/16/17 10:16 Dose: 0.5 mcg Calcium Acetate (Phoslo -) 667 mg PO TIDCM [facility] Last Admin: 05/16/17 08:26 Dose: 667 mg Calcium Carbonate/Cholecalciferol (Os-Justin 500+D -) 2 tab PO DAILY [facility] Last Admin: 05/16/17 10:15 Dose: 2 tab Carvedilol (Coreg -) 25 mg PO BID [facility] Last Admin: 05/16/17 10:15 Dose: 25 mg Ferrous Sulfate (Feosol -) 325 mg PO BIDWM [facility] Last Admin: 05/16/17 08:26 Dose: 325 mg Hydralazine HCl (Apresoline -) 100 mg PO TID [facility] Last Admin: 05/16/17 06:20 Dose: 100 mg Nifedipine (Procardia Xl -) 90 mg PO DAILY [facility] Last Admin: 05/16/17 10:15 Dose: 90 mg Valsartan (Diovan -) 160 mg PO BID [facility] Last Admin: 05/16/17 10:15 Dose: 160 mg - Objective Vital Signs: Vital Signs Temperature 98.2 F 05/16/17 09:07 Pulse Rate 78 05/16/17 09:07 Respiratory Rate 18 05/16/17 09:07 Blood Pressure 145/91 05/16/17 09:07 O2 Sat by Pulse Oximetry (%) 100 05/15/17 21:00 Constitutional: Yes: No Distress, Calm Neck: Yes: Supple Cardiovascular: Yes: Regular Rate and Rhythm Respiratory: Yes: Regular, CTA Bilaterally Gastrointestinal: Yes: Normal Bowel Sounds, Soft Edema: No Labs: CBC, BMP 05/15/17 07:00 05/15/17 07:00 INR, PTT INR 1.07 (0.82-1.09) 03/24/17 20:30 Problem List - Problems (1) Acute on chronic kidney failure Code(s): N17.9 - ACUTE KIDNEY FAILURE, UNSPECIFIED N18.9 - CHRONIC KIDNEY DISEASE, UNSPECIFIED (2) ESRD (end stage renal disease) Code(s): N18.6 - END STAGE RENAL DISEASE (3) Hypertensive cardiomyopathy Code(s): I11.9 - HYPERTENSIVE HEART DISEASE WITHOUT HEART FAILURE I42.9 - CARDIOMYOPATHY, UNSPECIFIED Qualifiers: Heart failure presence: without heart failure Qualified Code(s): I11.9 - Hypertensive heart disease without heart failure; I43 - Cardiomyopathy in diseases classified elsewhere (4) Diastolic dysfunction Code(s): I51.9 - HEART DISEASE, UNSPECIFIED (5) Hypocalcemia Code(s): E83.51 - HYPOCALCEMIA (6) Hyperparathyroidism due to renal insufficiency Code(s): N25.81 - SECONDARY HYPERPARATHYROIDISM OF RENAL ORIGIN Assessment/Plan 03/25/2017 Echo: Normal LV size and fxn, mod cLVH, mild LAE, mild TR, RVSP 30-40 mmHg, mild [place], Tr-mild [place] 1. ESRD->HD 2. LV diastolic dysfunction with class I-II NYHA classification LV failure, compensated 3. CAD angina pectoris abnormal EKG with evidence of demand ischemia 4. HTN/HCVD, BP control improved 5. Anemia 6. Hypocalcemia improving 7. Hyperparathyroidism due to renal disease PLAN: 1. Continue Coreg 25 mg bid, Procardia XL 90 qd, Diovan 160 bid and hydralazine 50 tid 2. HD as per renal service, outpatient HD arrangement pending insurance coverage
--- NOTE | 2017-05-16 17:15 | PN ---
Progress Note, Physician History of Present Illness: no complaints - Current Medication List Current Medications: Active Medications Calcitriol (Rocaltrol -) 0.5 mcg PO DAILY [facility] Last Admin: 05/16/17 10:16 Dose: 0.5 mcg Calcium Acetate (Phoslo -) 667 mg PO TIDCM [facility] Last Admin: 05/16/17 16:51 Dose: 667 mg Calcium Carbonate/Cholecalciferol (Os-Justin 500+D -) 2 tab PO DAILY [facility] Last Admin: 05/16/17 10:15 Dose: 2 tab Carvedilol (Coreg -) 25 mg PO BID [facility] Last Admin: 05/16/17 10:15 Dose: 25 mg Ferrous Sulfate (Feosol -) 325 mg PO BIDWM [facility] Last Admin: 05/16/17 16:51 Dose: 325 mg Hydralazine HCl (Apresoline -) 100 mg PO TID [facility] Last Admin: 05/16/17 14:22 Dose: 100 mg Nifedipine (Procardia Xl -) 90 mg PO DAILY [facility] Last Admin: 05/16/17 10:15 Dose: 90 mg Valsartan (Diovan -) 160 mg PO BID [facility] Last Admin: 05/16/17 10:15 Dose: 160 mg - Objective Vital Signs: Vital Signs Temperature 97.8 F 05/16/17 15:01 Pulse Rate 82 05/16/17 15:01 Respiratory Rate 18 05/16/17 15:01 Blood Pressure 134/74 05/16/17 15:01 O2 Sat by Pulse Oximetry (%) 100 05/15/17 21:00 Constitutional: Yes: No Distress HENT: Yes: Atraumatic Neck: Yes: Supple Cardiovascular: Yes: Regular Rate and Rhythm Respiratory: Yes: CTA Bilaterally Extremities: Yes: WNL Edema: No Neurological: Yes: Alert, Oriented Labs: CBC, BMP 05/15/17 07:00 05/15/17 07:00 INR, PTT INR 1.07 (0.82-1.09) 03/24/17 20:30 Problem List - Problems (1) Acute on chronic kidney failure Assessment/Plan: ON HD renal on board Code(s): N17.9 - ACUTE KIDNEY FAILURE, UNSPECIFIED N18.9 - CHRONIC KIDNEY DISEASE, UNSPECIFIED (2) ESRD (end stage renal disease) Assessment/Plan: on hd Code(s): N18.6 - END STAGE RENAL DISEASE (3) Hypertension Assessment/Plan: ON MEDS STABLE Code(s): I10 - ESSENTIAL (PRIMARY) HYPERTENSION Qualifiers: Hypertension type: essential hypertension Qualified Code(s): I10 - Essential (primary) hypertension Assessment/Plan pt awaiting insurance.. dc planning please
--- NOTE | 2017-05-16 17:34 | PN ---
Progress Note, Physician History of Present Illness: Pt seen and examined. No complaints. - Current Medication List Current Medications: Active Medications Calcitriol (Rocaltrol -) 0.5 mcg PO DAILY [facility] Last Admin: 05/16/17 10:16 Dose: 0.5 mcg Calcium Acetate (Phoslo -) 667 mg PO TIDCM [facility] Last Admin: 05/16/17 16:51 Dose: 667 mg Calcium Carbonate/Cholecalciferol (Os-Justin 500+D -) 2 tab PO DAILY [facility] Last Admin: 05/16/17 10:15 Dose: 2 tab Carvedilol (Coreg -) 25 mg PO BID [facility] Last Admin: 05/16/17 10:15 Dose: 25 mg Ferrous Sulfate (Feosol -) 325 mg PO BIDWM [facility] Last Admin: 05/16/17 16:51 Dose: 325 mg Hydralazine HCl (Apresoline -) 100 mg PO TID [facility] Last Admin: 05/16/17 14:22 Dose: 100 mg Nifedipine (Procardia Xl -) 90 mg PO DAILY [facility] Last Admin: 05/16/17 10:15 Dose: 90 mg Valsartan (Diovan -) 160 mg PO BID [facility] Last Admin: 05/16/17 10:15 Dose: 160 mg - Objective Vital Signs: Vital Signs Temperature 97.8 F 05/16/17 15:01 Pulse Rate 82 05/16/17 15:01 Respiratory Rate 18 05/16/17 15:01 Blood Pressure 134/74 05/16/17 15:01 O2 Sat by Pulse Oximetry (%) 100 05/15/17 21:00 Constitutional: Yes: Calm Eyes: Yes: Conjunctiva Clear HENT: Yes: Atraumatic Neck: Yes: Supple Cardiovascular: Yes: S1, S2 Respiratory: Yes: CTA Bilaterally Gastrointestinal: Yes: Soft Genitourinary: Yes: WNL Edema: No Neurological: Yes: Oriented Labs: CBC, BMP 05/15/17 07:00 05/15/17 07:00 INR, PTT INR 1.07 (0.82-1.09) 03/24/17 20:30 Problem List - Problems (1) ESRD (end stage renal disease) Code(s): N18.6 - END STAGE RENAL DISEASE (2) Hypertension Code(s): I10 - ESSENTIAL (PRIMARY) HYPERTENSION Qualifiers: Hypertension type: essential hypertension Qualified Code(s): I10 - Essential (primary) hypertension (3) Hyperparathyroidism due to renal insufficiency Code(s): N25.81 - SECONDARY HYPERPARATHYROIDISM OF RENAL ORIGIN Assessment/Plan Current Medications Generic Name Dose Route Start Last Admin Trade Name Jenelle PRN Reason Stop Dose Admin Calcitriol 0.5 mcg 04/06/17 11:42 05/16/17 10:16 Rocaltrol - PO 0.5 mcg DAILY [facility] Administration Calcium Acetate 667 mg 03/25/17 17:30 05/16/17 16:51 Phoslo - PO 667 mg TIDCM [facility] Administration Calcium Carbonate/Cholecalciferol 2 tab 03/25/17 15:00 05/16/17 10:15 Os-Justin 500+D - PO 2 tab DAILY [facility] Administration Carvedilol 25 mg 03/25/17 10:00 05/16/17 10:15 Coreg - PO 25 mg BID [facility] Administration Ferrous Sulfate 325 mg 03/28/17 17:30 05/16/17 16:51 Feosol - PO 325 mg BIDWM [facility] Administration Hydralazine HCl 100 mg 05/06/17 05:31 05/16/17 14:22 Apresoline - PO 100 mg TID [facility] Administration Nifedipine 90 mg 04/05/17 10:00 05/16/17 10:15 Procardia Xl - PO 90 mg DAILY [facility] Administration Valsartan 160 mg 03/27/17 22:00 05/16/17 10:15 Diovan - PO 160 mg BID [facility] Administration Impression 1. ESRD 2. HTN 3. hypocalcemia improving 4. anemia 5. hyperparathyroidism due to renal disease Plan - HD in am - needs placement - will need fistula - epogen for anemia - monitor blood pressure - no acute change in management Dr Ramos
[2017-05-17] MEDS: hydrALAZINE HCL 50 MG TABLET (FP) PO SCH ×3 (06:23→21:12)
[2017-05-17] MEDS: FERROUS SO4 325 MG TABLET (FP) PO SCH ×2 (08:27→17:54)
[2017-05-17] MEDS: CALCIUM ACETATE 667 MG CAPSULE (FP) PO SCH ×3 (08:27→17:54)
[2017-05-17 08:31] LABS: MCH 27.4 pg (25.7-33.7); MCHC 33.2 g/dl (32.0-35.9); MEAN CELL VOLUME 82.4 fl (80-96); MEAN PLT VOLUME 7.8 fl (7.5-11.1); PLATELET COUNT 175 K/MM3 (134-434); RDW 20.2 % (11.9-15.9); WHITE BLOOD COUNT 5.6 K/mm3 (4.0-10.0)
[2017-05-17 08:51] LABS: ANION GAP 14 (8-16); CALCIUM 8.4 mg/dL (8.5-10.1); CO2 28 mmol/L (21-32); GLUCOSE,RANDOM 90 mg/dL (74-106)
[2017-05-17] MEDS ORDERED: EPOETIN ALFA 2,000 UNITS/1 ML VIAL IVPUSH ONE (09:00)
[2017-05-17] MEDS ORDERED: HEPARIN NA (PORCINE) 5,000 UNITS/ML 1ML VIAL IVPUSH ONE (09:00)
[2017-05-17 09:36] LABS: CREATININE 10.1 mg/dL (0.7-1.3)
--- NOTE | 2017-05-17 10:16 | PN ---
Progress Note (short form) - Note Progress Note: RENAL Pt is awake and alert denies complaints currently on hemodialysis Last Vital Signs Temp Pulse Resp BP Pulse Ox 98.6 F 80 20 156/99 100 05/17/17 06:00 05/17/17 06:00 05/17/17 06:00 05/17/17 06:00 05/15/17 21:00 lungs clear cvs s1s2 rr abd soft ext no edema has a perm cath on right neuro a+o CBC, BMP 05/17/17 07:00 05/17/17 07:00 Current Medications Generic Name Dose Route Start Last Admin Trade Name Murtazaq PRN Reason Stop Dose Admin Calcitriol 0.5 mcg 04/06/17 11:42 05/16/17 10:16 Rocaltrol - PO 0.5 mcg DAILY [facility] Administration Calcium Acetate 667 mg 03/25/17 17:30 05/17/17 08:27 Phoslo - PO Not Given TIDCM [facility] Calcium Carbonate/Cholecalciferol 2 tab 03/25/17 15:00 05/16/17 10:15 Os-Justin 500+D - PO 2 tab DAILY [facility] Administration Carvedilol 25 mg 03/25/17 10:00 05/16/17 21:11 Coreg - PO 25 mg BID [facility] Administration Ferrous Sulfate 325 mg 03/28/17 17:30 05/17/17 08:27 Feosol - PO Not Given BIDWM [facility] Hydralazine HCl 100 mg 05/06/17 05:31 05/17/17 06:23 Apresoline - PO 100 mg TID [facility] Administration Nifedipine 90 mg 04/05/17 10:00 05/16/17 10:15 Procardia Xl - PO 90 mg DAILY [facility] Administration Valsartan 160 mg 03/27/17 22:00 05/16/17 21:12 Diovan - PO 160 mg BID [facility] Administration Impression 1. ESRD 2. HTN better controlled 3. hypocalcemia improving 4. anemia 5. hyperparathyroidism due to renal disease Plan HD tiw awaiting placement UF for BP control MV
[2017-05-17] MEDS: CALCIUM 500MG/VIT-D 200 UNITS COMBO TABLET (FP) PO SCH (10:27)
[2017-05-17] MEDS: CARVEDILOL 25 MG TABLET (FP) PO SCH ×2 (10:27→21:12)
[2017-05-17] MEDS: VALSARTAN 160 MG TABLET (UD) PO SCH ×2 (10:27→21:12)
[2017-05-17] MEDS: CALCITRIOL 0.25 MCG CAPSULE (FP) PO SCH (10:28)
[2017-05-17] MEDS: NIFEdipine E.R. 90 MG TABLET (FP) PO SCH (10:28)
--- NOTE | 2017-05-17 18:36 | PN ---
Progress Note, Physician History of Present Illness: no complaints - Current Medication List Current Medications: Active Medications Calcitriol (Rocaltrol -) 0.5 mcg PO DAILY [facility] Last Admin: 05/17/17 10:28 Dose: Not Given Calcium Acetate (Phoslo -) 667 mg PO TIDCM [facility] Last Admin: 05/17/17 17:54 Dose: 667 mg Calcium Carbonate/Cholecalciferol (Os-Justin 500+D -) 2 tab PO DAILY [facility] Last Admin: 05/17/17 10:27 Dose: Not Given Carvedilol (Coreg -) 25 mg PO BID [facility] Last Admin: 05/17/17 10:27 Dose: Not Given Ferrous Sulfate (Feosol -) 325 mg PO BIDWM [facility] Last Admin: 05/17/17 17:54 Dose: 325 mg Hydralazine HCl (Apresoline -) 100 mg PO TID [facility] Last Admin: 05/17/17 13:50 Dose: 100 mg Nifedipine (Procardia Xl -) 90 mg PO DAILY [facility] Last Admin: 05/17/17 10:28 Dose: Not Given Valsartan (Diovan -) 160 mg PO BID [facility] Last Admin: 05/17/17 10:27 Dose: Not Given - Objective Vital Signs: Vital Signs Temperature 99.0 F 05/17/17 16:20 Pulse Rate 81 05/17/17 16:20 Respiratory Rate 18 05/17/17 16:20 Blood Pressure 110/67 05/17/17 16:20 O2 Sat by Pulse Oximetry (%) 100 05/15/17 21:00 Constitutional: Yes: No Distress HENT: Yes: Atraumatic Neck: Yes: Supple Cardiovascular: Yes: Regular Rate and Rhythm Respiratory: Yes: CTA Bilaterally Gastrointestinal: Yes: Normal Bowel Sounds Extremities: Yes: WNL Neurological: Yes: Alert, Oriented Labs: CBC, BMP 05/17/17 07:00 05/17/17 07:00 INR, PTT INR 1.07 (0.82-1.09) 03/24/17 20:30 Problem List - Problems (1) Acute on chronic kidney failure Assessment/Plan: ON HD renal on board Code(s): N17.9 - ACUTE KIDNEY FAILURE, UNSPECIFIED N18.9 - CHRONIC KIDNEY DISEASE, UNSPECIFIED (2) ESRD (end stage renal disease) Assessment/Plan: on hd Code(s): N18.6 - END STAGE RENAL DISEASE (3) Hypertension Assessment/Plan: ON MEDS STABLE Code(s): I10 - ESSENTIAL (PRIMARY) HYPERTENSION Qualifiers: Hypertension type: essential hypertension Qualified Code(s): I10 - Essential (primary) hypertension Assessment/Plan pt awaiting insurance.. dc planning please
[2017-05-18] MEDS: hydrALAZINE HCL 50 MG TABLET (FP) PO SCH ×3 (06:23→21:59)
[2017-05-18] MEDS: FERROUS SO4 325 MG TABLET (FP) PO SCH ×2 (08:43→16:49)
[2017-05-18] MEDS: CALCIUM ACETATE 667 MG CAPSULE (FP) PO SCH ×3 (08:43→16:49)
[2017-05-18] MEDS: CALCITRIOL 0.25 MCG CAPSULE (FP) PO SCH (09:24)
[2017-05-18] MEDS: CARVEDILOL 25 MG TABLET (FP) PO SCH ×2 (09:24→22:02)
[2017-05-18] MEDS: VALSARTAN 160 MG TABLET (UD) PO SCH ×2 (09:24→22:03)
[2017-05-18] MEDS: CALCIUM 500MG/VIT-D 200 UNITS COMBO TABLET (FP) PO SCH (09:24)
[2017-05-18] MEDS ORDERED: PT OWN MED DRAWER 7, Y5N ONE (09:26)
[2017-05-18] MEDS: NIFEdipine E.R. 90 MG TABLET (FP) PO SCH (09:27)
--- NOTE | 2017-05-18 12:54 | PN ---
Progress Note, Physician History of Present Illness: No chest pain or dyspnea. - Current Medication List Current Medications: Active Medications Calcitriol (Rocaltrol -) 0.5 mcg PO DAILY [facility] Last Admin: 05/18/17 09:24 Dose: 0.5 mcg Calcium Acetate (Phoslo -) 667 mg PO TIDCM [facility] Last Admin: 05/18/17 12:08 Dose: 667 mg Calcium Carbonate/Cholecalciferol (Os-Justin 500+D -) 2 tab PO DAILY [facility] Last Admin: 05/18/17 09:24 Dose: 2 tab Carvedilol (Coreg -) 25 mg PO BID [facility] Last Admin: 05/18/17 09:24 Dose: 25 mg Ferrous Sulfate (Feosol -) 325 mg PO BIDWM [facility] Last Admin: 05/18/17 08:43 Dose: 325 mg Hydralazine HCl (Apresoline -) 100 mg PO TID [facility] Last Admin: 05/18/17 06:23 Dose: 100 mg Nifedipine (Procardia Xl -) 90 mg PO DAILY [facility] Last Admin: 05/18/17 09:27 Dose: 90 mg Valsartan (Diovan -) 160 mg PO BID [facility] Last Admin: 05/18/17 09:24 Dose: 160 mg - Objective Vital Signs: Vital Signs Temperature 99.2 F 05/18/17 06:00 Pulse Rate 76 05/18/17 06:00 Respiratory Rate 20 05/18/17 06:00 Blood Pressure 155/94 05/18/17 06:00 O2 Sat by Pulse Oximetry (%) 100 05/15/17 21:00 Constitutional: Yes: No Distress, Calm Neck: Yes: Supple Cardiovascular: Yes: Regular Rate and Rhythm Respiratory: Yes: Regular, Diminished Gastrointestinal: Yes: Normal Bowel Sounds, Soft Edema: No Labs: CBC, BMP 05/17/17 07:00 05/17/17 07:00 INR, PTT INR 1.07 (0.82-1.09) 03/24/17 20:30 Problem List - Problems (1) Acute on chronic kidney failure Code(s): N17.9 - ACUTE KIDNEY FAILURE, UNSPECIFIED N18.9 - CHRONIC KIDNEY DISEASE, UNSPECIFIED (2) ESRD (end stage renal disease) Code(s): N18.6 - END STAGE RENAL DISEASE (3) Hypertensive cardiomyopathy Code(s): I11.9 - HYPERTENSIVE HEART DISEASE WITHOUT HEART FAILURE I42.9 - CARDIOMYOPATHY, UNSPECIFIED Qualifiers: Heart failure presence: without heart failure Qualified Code(s): I11.9 - Hypertensive heart disease without heart failure; I43 - Cardiomyopathy in diseases classified elsewhere (4) Diastolic dysfunction Code(s): I51.9 - HEART DISEASE, UNSPECIFIED (5) Hypocalcemia Code(s): E83.51 - HYPOCALCEMIA (6) Hyperparathyroidism due to renal insufficiency Code(s): N25.81 - SECONDARY HYPERPARATHYROIDISM OF RENAL ORIGIN Assessment/Plan 03/25/2017 Echo: Normal LV size and fxn, mod cLVH, mild LAE, mild TR, RVSP 30-40 mmHg, mild AR, Tr-mild NM 1. ESRD->HD 2. LV diastolic dysfunction with class I-II NYHA classification LV failure, compensated 3. CAD angina pectoris abnormal EKG with evidence of demand ischemia 4. HTN/HCVD, BP control improved 5. Anemia 6. Hypocalcemia improving 7. Hyperparathyroidism due to renal disease PLAN: 1. Continue Coreg 25 mg bid, Procardia XL 90 qd, Diovan 160 bid and hydralazine 50 tid 2. HD as per renal service, outpatient HD arrangement pending insurance coverage
--- NOTE | 2017-05-18 15:03 | PN ---
Progress Note, Physician History of Present Illness: no complaints - Current Medication List Current Medications: Active Medications Calcitriol (Rocaltrol -) 0.5 mcg PO DAILY [facility] Last Admin: 05/18/17 09:24 Dose: 0.5 mcg Calcium Acetate (Phoslo -) 667 mg PO TIDCM [facility] Last Admin: 05/18/17 12:08 Dose: 667 mg Calcium Carbonate/Cholecalciferol (Os-Justin 500+D -) 2 tab PO DAILY [facility] Last Admin: 05/18/17 09:24 Dose: 2 tab Carvedilol (Coreg -) 25 mg PO BID [facility] Last Admin: 05/18/17 09:24 Dose: 25 mg Ferrous Sulfate (Feosol -) 325 mg PO BIDWM [facility] Last Admin: 05/18/17 08:43 Dose: 325 mg Hydralazine HCl (Apresoline -) 100 mg PO TID [facility] Last Admin: 05/18/17 13:19 Dose: 100 mg Nifedipine (Procardia Xl -) 90 mg PO DAILY [facility] Last Admin: 05/18/17 09:27 Dose: 90 mg Valsartan (Diovan -) 160 mg PO BID [facility] Last Admin: 05/18/17 09:24 Dose: 160 mg - Objective Vital Signs: Vital Signs Temperature 98.1 F 05/18/17 10:00 Pulse Rate 78 05/18/17 10:00 Respiratory Rate 18 05/18/17 10:00 Blood Pressure 148/73 05/18/17 10:00 O2 Sat by Pulse Oximetry (%) 100 05/15/17 21:00 Constitutional: Yes: No Distress HENT: Yes: Atraumatic Cardiovascular: Yes: Regular Rate and Rhythm Respiratory: Yes: CTA Bilaterally Gastrointestinal: Yes: Normal Bowel Sounds Extremities: Yes: WNL Edema: No Neurological: Yes: Alert Labs: CBC, BMP 05/17/17 07:00 05/17/17 07:00 INR, PTT INR 1.07 (0.82-1.09) 03/24/17 20:30 Problem List - Problems (1) Acute on chronic kidney failure Assessment/Plan: ON HD renal on board Code(s): N17.9 - ACUTE KIDNEY FAILURE, UNSPECIFIED N18.9 - CHRONIC KIDNEY DISEASE, UNSPECIFIED (2) ESRD (end stage renal disease) Assessment/Plan: on hd Code(s): N18.6 - END STAGE RENAL DISEASE (3) Hypertension Assessment/Plan: ON MEDS STABLE Code(s): I10 - ESSENTIAL (PRIMARY) HYPERTENSION Qualifiers: Hypertension type: essential hypertension Qualified Code(s): I10 - Essential (primary) hypertension Assessment/Plan pt awaiting insurance.. dc planning please
[2017-05-19] MEDS: hydrALAZINE HCL 50 MG TABLET (FP) PO SCH ×3 (06:39→22:00)
[2017-05-19] MEDS: FERROUS SO4 325 MG TABLET (FP) PO SCH ×2 (08:25→18:07)
[2017-05-19] MEDS: CALCIUM ACETATE 667 MG CAPSULE (FP) PO SCH ×3 (08:25→18:07)
[2017-05-19] MEDS ORDERED: PT OWN MED DRAWER 7, Y5N ONE (09:10)
[2017-05-19] MEDS: VALSARTAN 160 MG TABLET (UD) PO SCH ×2 (09:14→22:00)
[2017-05-19] MEDS: CARVEDILOL 25 MG TABLET (FP) PO SCH ×2 (09:14→22:00)
[2017-05-19] MEDS: CALCITRIOL 0.25 MCG CAPSULE (FP) PO SCH (09:14)
[2017-05-19] MEDS: NIFEdipine E.R. 90 MG TABLET (FP) PO SCH (09:14)
[2017-05-19] MEDS: CALCIUM 500MG/VIT-D 200 UNITS COMBO TABLET (FP) PO SCH (09:14)
--- NOTE | 2017-05-19 10:32 | PN ---
Progress Note, Physician History of Present Illness: No chest pain or dyspnea. - Current Medication List Current Medications: Active Medications Calcitriol (Rocaltrol -) 0.5 mcg PO DAILY [facility] Last Admin: 05/19/17 09:14 Dose: 0.5 mcg Calcium Acetate (Phoslo -) 667 mg PO TIDCM [facility] Last Admin: 05/19/17 08:25 Dose: 667 mg Calcium Carbonate/Cholecalciferol (Os-Justin 500+D -) 2 tab PO DAILY [facility] Last Admin: 05/19/17 09:14 Dose: 2 tab Carvedilol (Coreg -) 25 mg PO BID [facility] Last Admin: 05/19/17 09:14 Dose: 25 mg Ferrous Sulfate (Feosol -) 325 mg PO BIDWM [facility] Last Admin: 05/19/17 08:25 Dose: 325 mg Hydralazine HCl (Apresoline -) 100 mg PO TID [facility] Last Admin: 05/19/17 06:39 Dose: 100 mg Nifedipine (Procardia Xl -) 90 mg PO DAILY [facility] Last Admin: 05/19/17 09:14 Dose: 90 mg Valsartan (Diovan -) 160 mg PO BID [facility] Last Admin: 05/19/17 09:14 Dose: 160 mg - Objective Vital Signs: Vital Signs Temperature 99 F 05/19/17 07:34 Pulse Rate 72 05/19/17 07:34 Respiratory Rate 20 05/19/17 07:34 Blood Pressure 188/100 05/19/17 07:34 O2 Sat by Pulse Oximetry (%) 100 05/15/17 21:00 Constitutional: Yes: No Distress, Calm Neck: Yes: Supple Cardiovascular: Yes: Regular Rate and Rhythm Respiratory: Yes: Regular, CTA Bilaterally Gastrointestinal: Yes: Normal Bowel Sounds, Soft Edema: No Labs: CBC, BMP 05/17/17 07:00 05/17/17 07:00 INR, PTT INR 1.07 (0.82-1.09) 03/24/17 20:30 Problem List - Problems (1) Acute on chronic kidney failure Code(s): N17.9 - ACUTE KIDNEY FAILURE, UNSPECIFIED N18.9 - CHRONIC KIDNEY DISEASE, UNSPECIFIED (2) ESRD (end stage renal disease) Code(s): N18.6 - END STAGE RENAL DISEASE (3) Hypertensive cardiomyopathy Code(s): I11.9 - HYPERTENSIVE HEART DISEASE WITHOUT HEART FAILURE I42.9 - CARDIOMYOPATHY, UNSPECIFIED Qualifiers: Heart failure presence: without heart failure Qualified Code(s): I11.9 - Hypertensive heart disease without heart failure; I43 - Cardiomyopathy in diseases classified elsewhere (4) Diastolic dysfunction Code(s): I51.9 - HEART DISEASE, UNSPECIFIED (5) Hypocalcemia Code(s): E83.51 - HYPOCALCEMIA (6) Hyperparathyroidism due to renal insufficiency Code(s): N25.81 - SECONDARY HYPERPARATHYROIDISM OF RENAL ORIGIN Assessment/Plan 03/25/2017 Echo: Normal LV size and fxn, mod cLVH, mild LAE, mild TR, RVSP 30-40 mmHg, mild AR, Tr-mild [place] 1. ESRD->HD 2. LV diastolic dysfunction with class I-II NYHA classification LV failure, compensated 3. CAD angina pectoris abnormal EKG with evidence of demand ischemia 4. HTN/HCVD, BP control improved 5. Anemia 6. Hypocalcemia improving 7. Hyperparathyroidism due to renal disease PLAN: 1. Continue Coreg 25 mg bid, Procardia XL 90 qd, Diovan 160 bid and hydralazine 100 tid, may add Imdur if further BP reduction needed 2. HD as per renal service, outpatient HD arrangement pending insurance coverage
--- NOTE | 2017-05-19 14:27 | PN ---
Progress Note, Physician History of Present Illness: Pt seen and examined at bedside. He has no complaints. - Current Medication List Current Medications: Active Medications Calcitriol (Rocaltrol -) 0.5 mcg PO DAILY [facility] Last Admin: 05/19/17 09:14 Dose: 0.5 mcg Calcium Acetate (Phoslo -) 667 mg PO TIDCM [facility] Last Admin: 05/19/17 12:13 Dose: 667 mg Calcium Carbonate/Cholecalciferol (Os-Justin 500+D -) 2 tab PO DAILY [facility] Last Admin: 05/19/17 09:14 Dose: 2 tab Carvedilol (Coreg -) 25 mg PO BID [facility] Last Admin: 05/19/17 09:14 Dose: 25 mg Ferrous Sulfate (Feosol -) 325 mg PO BIDWM [facility] Last Admin: 05/19/17 08:25 Dose: 325 mg Hydralazine HCl (Apresoline -) 100 mg PO TID [facility] Last Admin: 05/19/17 13:30 Dose: 100 mg Nifedipine (Procardia Xl -) 90 mg PO DAILY [facility] Last Admin: 05/19/17 09:14 Dose: 90 mg Valsartan (Diovan -) 160 mg PO BID [facility] Last Admin: 05/19/17 09:14 Dose: 160 mg - Objective Vital Signs: Vital Signs Temperature 98.1 F 05/19/17 08:00 Pulse Rate 74 05/19/17 08:00 Respiratory Rate 20 05/19/17 08:00 Blood Pressure 168/95 05/19/17 08:00 O2 Sat by Pulse Oximetry (%) 100 05/15/17 21:00 Constitutional: Yes: Calm Eyes: Yes: Conjunctiva Clear HENT: Yes: Atraumatic Neck: Yes: Supple Cardiovascular: Yes: S1, S2 Respiratory: Yes: CTA Bilaterally Gastrointestinal: Yes: Normal Bowel Sounds, Soft Genitourinary: Yes: WNL Musculoskeletal: Yes: WNL Edema: No Neurological: Yes: Oriented Psychiatric: Yes: Oriented Labs: CBC, BMP 05/17/17 07:00 05/17/17 07:00 INR, PTT INR 1.07 (0.82-1.09) 03/24/17 20:30 Problem List - Problems (1) ESRD (end stage renal disease) Code(s): N18.6 - END STAGE RENAL DISEASE (2) Hypertension Code(s): I10 - ESSENTIAL (PRIMARY) HYPERTENSION Qualifiers: Hypertension type: essential hypertension Qualified Code(s): I10 - Essential (primary) hypertension (3) Hyperparathyroidism due to renal insufficiency Code(s): N25.81 - SECONDARY HYPERPARATHYROIDISM OF RENAL ORIGIN Assessment/Plan Current Medications Generic Name Dose Route Start Last Admin Trade Name Murtazaq PRN Reason Stop Dose Admin Calcitriol 0.5 mcg 04/06/17 11:42 05/19/17 09:14 Rocaltrol - PO 0.5 mcg DAILY [facility] Administration Calcium Acetate 667 mg 03/25/17 17:30 05/19/17 12:13 Phoslo - PO 667 mg TIDCM [facility] Administration Calcium Carbonate/Cholecalciferol 2 tab 03/25/17 15:00 05/19/17 09:14 Os-Justin 500+D - PO 2 tab DAILY [facility] Administration Carvedilol 25 mg 03/25/17 10:00 05/19/17 09:14 Coreg - PO 25 mg BID [facility] Administration Ferrous Sulfate 325 mg 03/28/17 17:30 05/19/17 08:25 Feosol - PO 325 mg BIDWM [facility] Administration Hydralazine HCl 100 mg 05/06/17 05:31 05/19/17 13:30 Apresoline - PO 100 mg TID [facility] Administration Nifedipine 90 mg 04/05/17 10:00 05/19/17 09:14 Procardia Xl - PO 90 mg DAILY [facility] Administration Valsartan 160 mg 03/27/17 22:00 05/19/17 09:14 Diovan - PO 160 mg BID [facility] Administration Impression 1. ESRD 2. HTN 3. hypocalcemia improving 4. anemia 5. hyperparathyroidism due to renal disease Plan - will arrange for HD in am - will need fistula - epogen for anemia - monitor blood pressure - no acute change in management Dr Ramos
--- NOTE | 2017-05-19 19:38 | PN ---
Progress Note, Physician History of Present Illness: no complaints - Current Medication List Current Medications: Active Medications Calcitriol (Rocaltrol -) 0.5 mcg PO DAILY [facility] Last Admin: 05/19/17 09:14 Dose: 0.5 mcg Calcium Acetate (Phoslo -) 667 mg PO TIDCM [facility] Last Admin: 05/19/17 18:07 Dose: 667 mg Calcium Carbonate/Cholecalciferol (Os-Jutsin 500+D -) 2 tab PO DAILY [facility] Last Admin: 05/19/17 09:14 Dose: 2 tab Carvedilol (Coreg -) 25 mg PO BID [facility] Last Admin: 05/19/17 09:14 Dose: 25 mg Epoetin Refugio (Epogen -) 4,000 units IVPUSH ONCE ONE Stop: 05/20/17 14:28 Ferrous Sulfate (Feosol -) 325 mg PO BIDWM [facility] Last Admin: 05/19/17 18:07 Dose: 325 mg Heparin Sodium (Porcine) (Heparin -) 1,000 unit IVPUSH ONCE ONE Stop: 05/20/17 14:28 Hydralazine HCl (Apresoline -) 100 mg PO TID [facility] Last Admin: 05/19/17 13:30 Dose: 100 mg Nifedipine (Procardia Xl -) 90 mg PO DAILY [facility] Last Admin: 05/19/17 09:14 Dose: 90 mg Valsartan (Diovan -) 160 mg PO BID [facility] Last Admin: 05/19/17 09:14 Dose: 160 mg - Objective Vital Signs: Vital Signs Temperature 99.5 F 05/19/17 17:26 Pulse Rate 82 05/19/17 17:26 Respiratory Rate 20 05/19/17 17:26 Blood Pressure 137/80 05/19/17 17:26 O2 Sat by Pulse Oximetry (%) 100 05/15/17 21:00 Constitutional: Yes: No Distress HENT: Yes: Atraumatic Neck: Yes: Supple Cardiovascular: Yes: Regular Rate and Rhythm Respiratory: Yes: CTA Bilaterally Gastrointestinal: Yes: Normal Bowel Sounds Extremities: Yes: WNL Neurological: Yes: Alert, Oriented Labs: CBC, BMP 05/17/17 07:00 05/17/17 07:00 INR, PTT INR 1.07 (0.82-1.09) 03/24/17 20:30 Problem List - Problems (1) Acute on chronic kidney failure Assessment/Plan: ON HD renal on board Code(s): N17.9 - ACUTE KIDNEY FAILURE, UNSPECIFIED N18.9 - CHRONIC KIDNEY DISEASE, UNSPECIFIED (2) ESRD (end stage renal disease) Assessment/Plan: on hd Code(s): N18.6 - END STAGE RENAL DISEASE (3) Hypertension Assessment/Plan: ON MEDS STABLE Code(s): I10 - ESSENTIAL (PRIMARY) HYPERTENSION Qualifiers: Hypertension type: essential hypertension Qualified Code(s): I10 - Essential (primary) hypertension Assessment/Plan pt awaiting insurance.. dc planning please
[2017-05-20] MEDS: hydrALAZINE HCL 50 MG TABLET (FP) PO SCH ×3 (06:21→21:50)
[2017-05-20] MEDS: FERROUS SO4 325 MG TABLET (FP) PO SCH ×2 (08:02→17:40)
[2017-05-20] MEDS: CALCIUM ACETATE 667 MG CAPSULE (FP) PO SCH ×3 (08:03→17:40)
[2017-05-20] MEDS: VALSARTAN 160 MG TABLET (UD) PO SCH ×3 (09:02→21:51)
[2017-05-20] MEDS: CALCIUM 500MG/VIT-D 200 UNITS COMBO TABLET (FP) PO SCH ×2 (09:02→12:43)
[2017-05-20] MEDS: CARVEDILOL 25 MG TABLET (FP) PO SCH ×3 (09:02→21:51)
[2017-05-20] MEDS: NIFEdipine E.R. 90 MG TABLET (FP) PO SCH (09:03)
[2017-05-20] MEDS: CALCITRIOL 0.25 MCG CAPSULE (FP) PO SCH (09:03)
[2017-05-20 09:17] LABS: ANION GAP 12 (8-16); CALCIUM 8.6 mg/dL (8.5-10.1); CO2 25 mmol/L (21-32); GLUCOSE,RANDOM 88 mg/dL (74-106)
[2017-05-20 09:24] LABS: CREATININE 11.6 mg/dL (0.7-1.3)
[2017-05-20] MEDS: HEPARIN NA (PORCINE) 5,000 UNITS/ML 1ML VIAL IVPUSH ONE ×3 (11:38→12:46)
[2017-05-20] MEDS: EPOETIN ALFA 2,000 UNITS/1 ML VIAL IVPUSH ONE ×2 (11:38→12:41)
--- NOTE | 2017-05-20 17:51 | PN ---
Progress Note, Physician History of Present Illness: Pt seen and examined at bedside. He is awake and alert. He denies shortness of breath. He tolerated HD. - Current Medication List Current Medications: Active Medications Calcitriol (Rocaltrol -) 0.5 mcg PO DAILY [facility] Last Admin: 05/20/17 09:03 Dose: Not Given Calcium Acetate (Phoslo -) 667 mg PO TIDCM [facility] Last Admin: 05/20/17 17:40 Dose: 667 mg Calcium Carbonate/Cholecalciferol (Os-Justin 500+D -) 2 tab PO DAILY [facility] Last Admin: 05/20/17 12:43 Dose: 2 tab Carvedilol (Coreg -) 25 mg PO BID [facility] Last Admin: 05/20/17 12:43 Dose: 25 mg Ferrous Sulfate (Feosol -) 325 mg PO BIDWM [facility] Last Admin: 05/20/17 17:40 Dose: 325 mg Hydralazine HCl (Apresoline -) 100 mg PO TID [facility] Last Admin: 05/20/17 13:37 Dose: 100 mg Nifedipine (Procardia Xl -) 90 mg PO DAILY [facility] Last Admin: 05/20/17 09:03 Dose: Not Given Valsartan (Diovan -) 160 mg PO BID [facility] Last Admin: 05/20/17 12:43 Dose: 160 mg - Objective Vital Signs: Vital Signs Temperature 98.7 F 05/20/17 17:11 Pulse Rate 76 05/20/17 17:11 Respiratory Rate 20 05/20/17 17:11 Blood Pressure 144/87 05/20/17 17:11 O2 Sat by Pulse Oximetry (%) 100 05/15/17 21:00 Constitutional: Yes: Calm Eyes: Yes: Conjunctiva Clear HENT: Yes: Atraumatic Neck: Yes: Supple Cardiovascular: Yes: S1, S2 Respiratory: Yes: CTA Bilaterally Gastrointestinal: Yes: Soft Genitourinary: Yes: WNL Musculoskeletal: Yes: WNL Edema: No Neurological: Yes: Oriented Psychiatric: Yes: Oriented Labs: CBC, BMP 05/17/17 07:00 05/20/17 06:45 INR, PTT INR 1.07 (0.82-1.09) 03/24/17 20:30 Problem List - Problems (1) ESRD (end stage renal disease) Code(s): N18.6 - END STAGE RENAL DISEASE (2) Hypertension Code(s): I10 - ESSENTIAL (PRIMARY) HYPERTENSION Qualifiers: Hypertension type: essential hypertension Qualified Code(s): I10 - Essential (primary) hypertension (3) Hyperparathyroidism due to renal insufficiency Code(s): N25.81 - SECONDARY HYPERPARATHYROIDISM OF RENAL ORIGIN Assessment/Plan Current Medications Generic Name Dose Route Start Last Admin Trade Name Freq PRN Reason Stop Dose Admin Calcitriol 0.5 mcg 04/06/17 11:42 05/20/17 09:03 Rocaltrol - PO Not Given DAILY [facility] Calcium Acetate 667 mg 03/25/17 17:30 05/20/17 17:40 Phoslo - PO 667 mg TIDCM [facility] Administration Calcium Carbonate/Cholecalciferol 2 tab 03/25/17 15:00 05/20/17 12:43 Os-Justin 500+D - PO 2 tab DAILY [facility] Administration Carvedilol 25 mg 03/25/17 10:00 05/20/17 12:43 Coreg - PO 25 mg BID [facility] Administration Ferrous Sulfate 325 mg 03/28/17 17:30 05/20/17 17:40 Feosol - PO 325 mg BIDWM [facility] Administration Hydralazine HCl 100 mg 05/06/17 05:31 05/20/17 13:37 Apresoline - PO 100 mg TID [facility] Administration Nifedipine 90 mg 04/05/17 10:00 05/20/17 09:03 Procardia Xl - PO Not Given DAILY [facility] Valsartan 160 mg 03/27/17 22:00 05/20/17 12:43 Diovan - PO 160 mg BID [facility] Administration Impression 1. ESRD 2. HTN 3. hypocalcemia improving 4. anemia 5. hyperparathyroidism due to renal disease Plan - pt tolerated HD - will need fistula - epogen for anemia - monitor blood pressure - no acute change in management Dr Ramos
--- NOTE | 2017-05-20 23:47 | PN ---
Progress Note, Physician History of Present Illness: No new complaints - Current Medication List Current Medications: Active Medications Calcitriol (Rocaltrol -) 0.5 mcg PO DAILY [facility] Last Admin: 05/20/17 09:03 Dose: Not Given Calcium Acetate (Phoslo -) 667 mg PO TIDCM [facility] Last Admin: 05/20/17 17:40 Dose: 667 mg Calcium Carbonate/Cholecalciferol (Os-Justin 500+D -) 2 tab PO DAILY [facility] Last Admin: 05/20/17 12:43 Dose: 2 tab Carvedilol (Coreg -) 25 mg PO BID [facility] Last Admin: 05/20/17 21:51 Dose: 25 mg Ferrous Sulfate (Feosol -) 325 mg PO BIDWM [facility] Last Admin: 05/20/17 17:40 Dose: 325 mg Hydralazine HCl (Apresoline -) 100 mg PO TID [facility] Last Admin: 05/20/17 21:50 Dose: 100 mg Nifedipine (Procardia Xl -) 90 mg PO DAILY [facility] Last Admin: 05/20/17 09:03 Dose: Not Given Valsartan (Diovan -) 160 mg PO BID [facility] Last Admin: 05/20/17 21:51 Dose: 160 mg - Objective Vital Signs: Vital Signs Temperature 98.7 F 05/20/17 17:11 Pulse Rate 76 05/20/17 17:11 Respiratory Rate 20 05/20/17 21:00 Blood Pressure 144/87 05/20/17 17:11 O2 Sat by Pulse Oximetry (%) 100 05/15/17 21:00 Constitutional: Yes: No Distress Eyes: Yes: WNL HENT: Yes: WNL Neck: Yes: WNL, Supple Cardiovascular: Yes: WNL, Regular Rate and Rhythm Respiratory: Yes: WNL, Regular, CTA Bilaterally Gastrointestinal: Yes: WNL, Normal Bowel Sounds, Soft Labs: CBC, BMP 05/17/17 07:00 05/20/17 06:45 INR, PTT INR 1.07 (0.82-1.09) 03/24/17 20:30 Problem List - Problems (1) Anemia Code(s): D64.9 - ANEMIA, UNSPECIFIED (2) ESRD (end stage renal disease) Code(s): N18.6 - END STAGE RENAL DISEASE (3) Hypertension Code(s): I10 - ESSENTIAL (PRIMARY) HYPERTENSION Qualifiers: Hypertension type: essential hypertension Qualified Code(s): I10 - Essential (primary) hypertension
[2017-05-21] MEDS: hydrALAZINE HCL 50 MG TABLET (FP) PO SCH ×3 (06:16→22:27)
[2017-05-21] MEDS: FERROUS SO4 325 MG TABLET (FP) PO SCH ×2 (08:17→17:34)
[2017-05-21] MEDS: CALCIUM ACETATE 667 MG CAPSULE (FP) PO SCH ×3 (09:00→17:34)
[2017-05-21] MEDS: VALSARTAN 160 MG TABLET (UD) PO SCH ×2 (09:17→22:27)
[2017-05-21] MEDS: CALCITRIOL 0.25 MCG CAPSULE (FP) PO SCH (09:17)
[2017-05-21] MEDS: CALCIUM 500MG/VIT-D 200 UNITS COMBO TABLET (FP) PO SCH (09:17)
[2017-05-21] MEDS: CARVEDILOL 25 MG TABLET (FP) PO SCH ×2 (09:17→22:27)
[2017-05-21] MEDS: NIFEdipine E.R. 90 MG TABLET (FP) PO SCH (09:17)
--- NOTE | 2017-05-21 13:03 | PN ---
Progress Note, Physician History of Present Illness: No chest pain or dyspnea. - Current Medication List Current Medications: Active Medications Calcitriol (Rocaltrol -) 0.5 mcg PO DAILY [facility] Last Admin: 05/21/17 09:17 Dose: 0.5 mcg Calcium Acetate (Phoslo -) 667 mg PO TIDCM [facility] Last Admin: 05/21/17 12:12 Dose: 667 mg Calcium Carbonate/Cholecalciferol (Os-Justin 500+D -) 2 tab PO DAILY [facility] Last Admin: 05/21/17 09:17 Dose: 2 tab Carvedilol (Coreg -) 25 mg PO BID [facility] Last Admin: 05/21/17 09:17 Dose: 25 mg Ferrous Sulfate (Feosol -) 325 mg PO BIDWM [facility] Last Admin: 05/21/17 08:17 Dose: 325 mg Hydralazine HCl (Apresoline -) 100 mg PO TID [facility] Last Admin: 05/21/17 06:16 Dose: 100 mg Nifedipine (Procardia Xl -) 90 mg PO DAILY [facility] Last Admin: 05/21/17 09:17 Dose: 90 mg Valsartan (Diovan -) 160 mg PO BID [facility] Last Admin: 05/21/17 09:17 Dose: 160 mg - Objective Vital Signs: Vital Signs Temperature 98.4 F 05/21/17 08:58 Pulse Rate 79 05/21/17 08:58 Respiratory Rate 16 05/21/17 09:00 Blood Pressure 176/115 05/21/17 08:58 O2 Sat by Pulse Oximetry (%) 100 05/15/17 21:00 Constitutional: Yes: No Distress, Calm Neck: Yes: Supple Respiratory: Yes: Regular, CTA Bilaterally Gastrointestinal: Yes: Normal Bowel Sounds, Soft Edema: No Labs: CBC, BMP 05/17/17 07:00 05/20/17 06:45 INR, PTT INR 1.07 (0.82-1.09) 03/24/17 20:30 Problem List - Problems (1) Acute on chronic kidney failure Code(s): N17.9 - ACUTE KIDNEY FAILURE, UNSPECIFIED N18.9 - CHRONIC KIDNEY DISEASE, UNSPECIFIED (2) ESRD (end stage renal disease) Code(s): N18.6 - END STAGE RENAL DISEASE (3) Hypertensive cardiomyopathy Code(s): I11.9 - HYPERTENSIVE HEART DISEASE WITHOUT HEART FAILURE I42.9 - CARDIOMYOPATHY, UNSPECIFIED Qualifiers: Heart failure presence: without heart failure Qualified Code(s): I11.9 - Hypertensive heart disease without heart failure; I43 - Cardiomyopathy in diseases classified elsewhere (4) Diastolic dysfunction Code(s): I51.9 - HEART DISEASE, UNSPECIFIED (5) Hypocalcemia Code(s): E83.51 - HYPOCALCEMIA (6) Hyperparathyroidism due to renal insufficiency Code(s): N25.81 - SECONDARY HYPERPARATHYROIDISM OF RENAL ORIGIN Assessment/Plan 03/25/2017 Echo: Normal LV size and fxn, mod cLVH, mild LAE, mild TR, RVSP 30-40 mmHg, mild AR, Tr-mild [place] 1. ESRD->HD 2. LV diastolic dysfunction with class I-II NYHA classification LV failure, compensated 3. CAD angina pectoris abnormal EKG with evidence of demand ischemia 4. HTN/HCVD, BP control not at goal 5. Anemia 6. Hypocalcemia improving 7. Hyperparathyroidism due to renal disease PLAN: 1. Continue Coreg 25 mg bid, increase Procardia XL 120 qd, Diovan 160 bid and hydralazine 100 tid, may add Imdur if further BP reduction needed 2. HD as per renal service, outpatient HD arrangement pending insurance coverage
--- NOTE | 2017-05-21 15:59 | PN ---
Progress Note, Physician History of Present Illness: Pt seen and examined at bedside. He is awake and alert. - Current Medication List Current Medications: Active Medications Calcitriol (Rocaltrol -) 0.5 mcg PO DAILY [facility] Last Admin: 05/21/17 09:17 Dose: 0.5 mcg Calcium Acetate (Phoslo -) 667 mg PO TIDCM [facility] Last Admin: 05/21/17 12:12 Dose: 667 mg Calcium Carbonate/Cholecalciferol (Os-Justin 500+D -) 2 tab PO DAILY [facility] Last Admin: 05/21/17 09:17 Dose: 2 tab Carvedilol (Coreg -) 25 mg PO BID [facility] Last Admin: 05/21/17 09:17 Dose: 25 mg Ferrous Sulfate (Feosol -) 325 mg PO BIDWM [facility] Last Admin: 05/21/17 08:17 Dose: 325 mg Hydralazine HCl (Apresoline -) 100 mg PO TID [facility] Last Admin: 05/21/17 14:55 Dose: 100 mg Nifedipine (Procardia Xl -) 120 mg PO DAILY [facility] Valsartan (Diovan -) 160 mg PO BID [facility] Last Admin: 05/21/17 09:17 Dose: 160 mg - Objective Vital Signs: Vital Signs Temperature 98.7 F 05/21/17 15:48 Pulse Rate 86 05/21/17 15:48 Respiratory Rate 18 05/21/17 15:48 Blood Pressure 142/82 05/21/17 15:48 O2 Sat by Pulse Oximetry (%) 100 05/15/17 21:00 Constitutional: Yes: Calm Eyes: Yes: Conjunctiva Clear HENT: Yes: Atraumatic Neck: Yes: Supple Cardiovascular: Yes: S1, S2 Respiratory: Yes: CTA Bilaterally Gastrointestinal: Yes: Soft Musculoskeletal: Yes: WNL Edema: No Neurological: Yes: Oriented Psychiatric: Yes: Oriented Labs: CBC, BMP 05/17/17 07:00 05/20/17 06:45 INR, PTT INR 1.07 (0.82-1.09) 03/24/17 20:30 Problem List - Problems (1) ESRD (end stage renal disease) Code(s): N18.6 - END STAGE RENAL DISEASE (2) Hypertension Code(s): I10 - ESSENTIAL (PRIMARY) HYPERTENSION Qualifiers: Hypertension type: essential hypertension Qualified Code(s): I10 - Essential (primary) hypertension (3) Hyperparathyroidism due to renal insufficiency Code(s): N25.81 - SECONDARY HYPERPARATHYROIDISM OF RENAL ORIGIN Assessment/Plan Current Medications Generic Name Dose Route Start Last Admin Trade Name Jenelle PRN Reason Stop Dose Admin Calcitriol 0.5 mcg 04/06/17 11:42 05/21/17 09:17 Rocaltrol - PO 0.5 mcg DAILY [facility] Administration Calcium Acetate 667 mg 03/25/17 17:30 05/21/17 12:12 Phoslo - PO 667 mg TIDCM [facility] Administration Calcium Carbonate/Cholecalciferol 2 tab 03/25/17 15:00 05/21/17 09:17 Os-Justin 500+D - PO 2 tab DAILY [facility] Administration Carvedilol 25 mg 03/25/17 10:00 05/21/17 09:17 Coreg - PO 25 mg BID [facility] Administration Ferrous Sulfate 325 mg 03/28/17 17:30 05/21/17 08:17 Feosol - PO 325 mg BIDWM [facility] Administration Hydralazine HCl 100 mg 05/06/17 05:31 05/21/17 14:55 Apresoline - PO 100 mg TID [facility] Administration Nifedipine 120 mg 05/21/17 13:06 Procardia Xl - PO DAILY [facility] Valsartan 160 mg 03/27/17 22:00 05/21/17 09:17 Diovan - PO 160 mg BID [facility] Administration Impression 1. ESRD 2. HTN 3. hypocalcemia improving 4. anemia 5. hyperparathyroidism due to renal disease Plan - HD in am - will need fistula - epogen for anemia - monitor blood pressure - no acute change in management Dr Ramos
[2017-05-21] MEDS ORDERED: PT OWN MED DRAWER 7, Y5N ONE (17:49)
--- NOTE | 2017-05-21 22:09 | PN ---
Progress Note, Physician History of Present Illness: No new complaints - Current Medication List Current Medications: Active Medications Calcitriol (Rocaltrol -) 0.5 mcg PO DAILY [facility] Last Admin: 05/21/17 09:17 Dose: 0.5 mcg Calcium Acetate (Phoslo -) 667 mg PO TIDCM [facility] Last Admin: 05/21/17 17:34 Dose: 667 mg Calcium Carbonate/Cholecalciferol (Os-Justin 500+D -) 2 tab PO DAILY [facility] Last Admin: 05/21/17 09:17 Dose: 2 tab Carvedilol (Coreg -) 25 mg PO BID [facility] Last Admin: 05/21/17 09:17 Dose: 25 mg Epoetin Refugio (Epogen -) 4,000 units IVPUSH ONCE ONE Stop: 05/22/17 16:00 Ferrous Sulfate (Feosol -) 325 mg PO BIDWM [facility] Last Admin: 05/21/17 17:34 Dose: 325 mg Heparin Sodium (Porcine) (Heparin -) 1,000 unit IVPUSH ONCE ONE Stop: 05/22/17 16:00 Hydralazine HCl (Apresoline -) 100 mg PO TID [facility] Last Admin: 05/21/17 14:55 Dose: 100 mg Nifedipine (Procardia Xl -) 120 mg PO DAILY [facility] Valsartan (Diovan -) 160 mg PO BID [facility] Last Admin: 05/21/17 09:17 Dose: 160 mg - Objective Vital Signs: Vital Signs Temperature 98.4 F 05/21/17 17:11 Pulse Rate 85 05/21/17 17:11 Respiratory Rate 20 05/21/17 17:11 Blood Pressure 145/104 05/21/17 17:11 O2 Sat by Pulse Oximetry (%) 100 05/15/17 21:00 Constitutional: Yes: Calm Eyes: Yes: WNL HENT: Yes: WNL Neck: Yes: Supple Cardiovascular: Yes: WNL, Regular Rate and Rhythm Respiratory: Yes: WNL, Regular, CTA Bilaterally Gastrointestinal: Yes: WNL, Normal Bowel Sounds, Soft Labs: CBC, BMP 05/17/17 07:00 05/20/17 06:45 INR, PTT INR 1.07 (0.82-1.09) 03/24/17 20:30 Problem List - Problems (1) ESRD (end stage renal disease) Assessment/Plan: Cont dialysis as per renal awaiting insurance for DC Code(s): N18.6 - END STAGE RENAL DISEASE (2) Diastolic dysfunction Assessment/Plan: Cont to monitor for fluid overload Code(s): I51.9 - HEART DISEASE, UNSPECIFIED (3) Hypertension Assessment/Plan: BP stable Cont coreg/hydralazine/diovan/procardia Code(s): I10 - ESSENTIAL (PRIMARY) HYPERTENSION Qualifiers: Hypertension type: essential hypertension Qualified Code(s): I10 - Essential (primary) hypertension (4) Anemia Assessment/Plan: Due to chronic/renal dz Cont feosol Code(s): D64.9 - ANEMIA, UNSPECIFIED (5) Hyperparathyroidism due to renal insufficiency Code(s): N25.81 - SECONDARY HYPERPARATHYROIDISM OF RENAL ORIGIN
[2017-05-22] MEDS: hydrALAZINE HCL 50 MG TABLET (FP) PO SCH ×3 (05:34→21:56)
[2017-05-22] MEDS: FERROUS SO4 325 MG TABLET (FP) PO SCH ×2 (08:05→18:02)
[2017-05-22] MEDS: CALCIUM ACETATE 667 MG CAPSULE (FP) PO SCH ×3 (08:05→18:02)
[2017-05-22] MEDS ORDERED: PT OWN MED DRAWER 7, Y5N ONE (09:17)
[2017-05-22] MEDS: CALCIUM 500MG/VIT-D 200 UNITS COMBO TABLET (FP) PO SCH (09:21)
[2017-05-22] MEDS: VALSARTAN 160 MG TABLET (UD) PO SCH ×2 (09:21→21:56)
[2017-05-22] MEDS: CARVEDILOL 25 MG TABLET (FP) PO SCH ×2 (09:21→21:56)
[2017-05-22] MEDS: CALCITRIOL 0.25 MCG CAPSULE (FP) PO SCH (09:22)
[2017-05-22] MEDS: NIFEdipine E.R 60 MG TABLET (UD) PO SCH (09:22)
[2017-05-22] MEDS ORDERED: EPOETIN ALFA 2,000 UNITS/1 ML VIAL IVPUSH ONE (11:15)
[2017-05-22] MEDS ORDERED: HEPARIN NA (PORCINE) 5,000 UNITS/ML 1ML VIAL IVPUSH ONE (11:15)
--- NOTE | 2017-05-22 16:51 | PN ---
Progress Note, Physician History of Present Illness: Pt seen and examined at bedside. He is awake and alert. He tolerated HD. - Current Medication List Current Medications: Active Medications Calcitriol (Rocaltrol -) 0.5 mcg PO DAILY [facility] Last Admin: 05/22/17 09:22 Dose: 0.5 mcg Calcium Acetate (Phoslo -) 667 mg PO TIDCM [facility] Last Admin: 05/22/17 12:30 Dose: Not Given Calcium Carbonate/Cholecalciferol (Os-Justin 500+D -) 2 tab PO DAILY [facility] Last Admin: 05/22/17 09:21 Dose: 2 tab Carvedilol (Coreg -) 25 mg PO BID [facility] Last Admin: 05/22/17 09:21 Dose: 25 mg Ferrous Sulfate (Feosol -) 325 mg PO BIDWM [facility] Last Admin: 05/22/17 08:05 Dose: 325 mg Hydralazine HCl (Apresoline -) 100 mg PO TID [facility] Last Admin: 05/22/17 15:07 Dose: 100 mg Nifedipine (Procardia Xl -) 120 mg PO DAILY [facility] Last Admin: 05/22/17 09:22 Dose: 120 mg Valsartan (Diovan -) 160 mg PO BID [facility] Last Admin: 05/22/17 09:21 Dose: 160 mg - Objective Vital Signs: Vital Signs Temperature 97.9 F 05/22/17 08:30 Pulse Rate 81 05/22/17 14:40 Respiratory Rate 18 05/22/17 14:40 Blood Pressure 130/80 05/22/17 14:40 O2 Sat by Pulse Oximetry (%) 100 05/15/17 21:00 Constitutional: Yes: Calm Eyes: Yes: Conjunctiva Clear HENT: Yes: Atraumatic Neck: Yes: Supple Cardiovascular: Yes: S1, S2 Respiratory: Yes: CTA Bilaterally Gastrointestinal: Yes: Normal Bowel Sounds, Soft Genitourinary: Yes: WNL Edema: No Neurological: Yes: Oriented Psychiatric: Yes: Oriented Labs: CBC, BMP 05/17/17 07:00 05/20/17 06:45 INR, PTT INR 1.07 (0.82-1.09) 03/24/17 20:30 Problem List - Problems (1) ESRD (end stage renal disease) Code(s): N18.6 - END STAGE RENAL DISEASE (2) Hypertension Code(s): I10 - ESSENTIAL (PRIMARY) HYPERTENSION Qualifiers: Hypertension type: essential hypertension Qualified Code(s): I10 - Essential (primary) hypertension (3) Hyperparathyroidism due to renal insufficiency Code(s): N25.81 - SECONDARY HYPERPARATHYROIDISM OF RENAL ORIGIN Assessment/Plan Current Medications Generic Name Dose Route Start Last Admin Trade Name Freq PRN Reason Stop Dose Admin Calcitriol 0.5 mcg 04/06/17 11:42 05/22/17 09:22 Rocaltrol - PO 0.5 mcg DAILY [facility] Administration Calcium Acetate 667 mg 03/25/17 17:30 05/22/17 12:30 Phoslo - PO Not Given TIDCM [facility] Calcium Carbonate/Cholecalciferol 2 tab 03/25/17 15:00 05/22/17 09:21 Os-Justin 500+D - PO 2 tab DAILY [facility] Administration Carvedilol 25 mg 03/25/17 10:00 05/22/17 09:21 Coreg - PO 25 mg BID [facility] Administration Ferrous Sulfate 325 mg 03/28/17 17:30 05/22/17 08:05 Feosol - PO 325 mg BIDWM [facility] Administration Hydralazine HCl 100 mg 05/06/17 05:31 05/22/17 15:07 Apresoline - PO 100 mg TID [facility] Administration Nifedipine 120 mg 05/21/17 13:06 05/22/17 09:22 Procardia Xl - PO 120 mg DAILY [facility] Administration Valsartan 160 mg 03/27/17 22:00 05/22/17 09:21 Diovan - PO 160 mg BID [facility] Administration Impression 1. ESRD 2. HTN 3. hypocalcemia improving 4. anemia 5. hyperparathyroidism due to renal disease Plan - pt tolerated HD - discharge planning - epogen for anemia - monitor blood pressure - no acute change in management Dr Ramos
--- NOTE | 2017-05-23 00:46 | PN ---
Progress Note, Physician History of Present Illness: No new complaints Pt seen and examined 05/22/17 however note is being entered now - Current Medication List Current Medications: Active Medications Calcitriol (Rocaltrol -) 0.5 mcg PO DAILY [facility] Last Admin: 05/22/17 09:22 Dose: 0.5 mcg Calcium Acetate (Phoslo -) 667 mg PO TIDCM [facility] Last Admin: 05/22/17 18:02 Dose: 667 mg Calcium Carbonate/Cholecalciferol (Os-Justin 500+D -) 2 tab PO DAILY [facility] Last Admin: 05/22/17 09:21 Dose: 2 tab Carvedilol (Coreg -) 25 mg PO BID [facility] Last Admin: 05/22/17 21:56 Dose: 25 mg Ferrous Sulfate (Feosol -) 325 mg PO BIDWM [facility] Last Admin: 05/22/17 18:02 Dose: 325 mg Hydralazine HCl (Apresoline -) 100 mg PO TID [facility] Last Admin: 05/22/17 21:56 Dose: 100 mg Nifedipine (Procardia Xl -) 120 mg PO DAILY [facility] Last Admin: 05/22/17 09:22 Dose: 120 mg Valsartan (Diovan -) 160 mg PO BID [facility] Last Admin: 05/22/17 21:56 Dose: 160 mg - Objective Vital Signs: Vital Signs Temperature 98.5 F 05/22/17 22:00 Pulse Rate 80 05/22/17 22:00 Respiratory Rate 20 05/22/17 22:00 Blood Pressure 149/79 05/22/17 22:00 O2 Sat by Pulse Oximetry (%) 100 05/15/17 21:00 Constitutional: Yes: No Distress Eyes: Yes: WNL HENT: Yes: WNL Neck: Yes: WNL, Supple Cardiovascular: Yes: WNL, Regular Rate and Rhythm Respiratory: Yes: WNL, Regular, CTA Bilaterally Gastrointestinal: Yes: WNL, Normal Bowel Sounds, Soft Labs: CBC, BMP 05/17/17 07:00 05/20/17 06:45 INR, PTT INR 1.07 (0.82-1.09) 03/24/17 20:30 Problem List - Problems (1) ESRD (end stage renal disease) Code(s): N18.6 - END STAGE RENAL DISEASE (2) Diastolic dysfunction Code(s): I51.9 - HEART DISEASE, UNSPECIFIED (3) Hypertension Code(s): I10 - ESSENTIAL (PRIMARY) HYPERTENSION Qualifiers: Hypertension type: essential hypertension Qualified Code(s): I10 - Essential (primary) hypertension (4) Anemia Code(s): D64.9 - ANEMIA, UNSPECIFIED (5) Hyperparathyroidism due to renal insufficiency Code(s): N25.81 - SECONDARY HYPERPARATHYROIDISM OF RENAL ORIGIN
[2017-05-23] MEDS: hydrALAZINE HCL 50 MG TABLET (FP) PO SCH ×3 (05:13→21:47)
[2017-05-23] MEDS: CALCIUM ACETATE 667 MG CAPSULE (FP) PO SCH ×3 (08:36→17:23)
[2017-05-23] MEDS: FERROUS SO4 325 MG TABLET (FP) PO SCH ×2 (08:36→17:23)
[2017-05-23] MEDS ORDERED: PT OWN MED DRAWER 7, Y5N ONE (09:04)
[2017-05-23] MEDS: NIFEdipine E.R 60 MG TABLET (UD) PO SCH (09:13)
[2017-05-23] MEDS: CARVEDILOL 25 MG TABLET (FP) PO SCH ×2 (09:14→21:48)
[2017-05-23] MEDS: VALSARTAN 160 MG TABLET (UD) PO SCH ×2 (09:14→21:47)
[2017-05-23] MEDS: CALCITRIOL 0.25 MCG CAPSULE (FP) PO SCH (09:14)
[2017-05-23] MEDS: CALCIUM 500MG/VIT-D 200 UNITS COMBO TABLET (FP) PO SCH (09:15)
--- NOTE | 2017-05-23 12:39 | PN ---
Progress Note, Physician History of Present Illness: Pt seen and examined. No complaints. - Current Medication List Current Medications: Active Medications Calcitriol (Rocaltrol -) 0.5 mcg PO DAILY [facility] Last Admin: 05/23/17 09:14 Dose: 0.5 mcg Calcium Acetate (Phoslo -) 667 mg PO TIDCM [facility] Last Admin: 05/23/17 08:36 Dose: 667 mg Calcium Carbonate/Cholecalciferol (Os-Justin 500+D -) 2 tab PO DAILY [facility] Last Admin: 05/23/17 09:15 Dose: 2 tab Carvedilol (Coreg -) 25 mg PO BID [facility] Last Admin: 05/23/17 09:14 Dose: 25 mg Ferrous Sulfate (Feosol -) 325 mg PO BIDWM [facility] Last Admin: 05/23/17 08:36 Dose: 325 mg Hydralazine HCl (Apresoline -) 100 mg PO TID [facility] Last Admin: 05/23/17 05:13 Dose: 100 mg Nifedipine (Procardia Xl -) 120 mg PO DAILY [facility] Last Admin: 05/23/17 09:13 Dose: 120 mg Valsartan (Diovan -) 160 mg PO BID [facility] Last Admin: 05/23/17 09:14 Dose: 160 mg - Objective Vital Signs: Vital Signs Temperature 98.4 F 05/23/17 10:00 Pulse Rate 80 05/23/17 10:00 Respiratory Rate 16 05/23/17 10:00 Blood Pressure 148/96 05/23/17 10:00 O2 Sat by Pulse Oximetry (%) 100 05/23/17 09:00 Constitutional: Yes: Calm Eyes: Yes: Conjunctiva Clear HENT: Yes: Atraumatic Neck: Yes: Supple Cardiovascular: Yes: S1, S2 Respiratory: Yes: CTA Bilaterally Gastrointestinal: Yes: Normal Bowel Sounds, Soft Genitourinary: Yes: WNL Musculoskeletal: Yes: WNL Neurological: Yes: Oriented Labs: CBC, BMP 05/17/17 07:00 05/20/17 06:45 INR, PTT INR 1.07 (0.82-1.09) 03/24/17 20:30 Problem List - Problems (1) ESRD (end stage renal disease) Code(s): N18.6 - END STAGE RENAL DISEASE (2) Hypertension Code(s): I10 - ESSENTIAL (PRIMARY) HYPERTENSION Qualifiers: Hypertension type: essential hypertension Qualified Code(s): I10 - Essential (primary) hypertension (3) Hyperparathyroidism due to renal insufficiency Code(s): N25.81 - SECONDARY HYPERPARATHYROIDISM OF RENAL ORIGIN Assessment/Plan Current Medications Generic Name Dose Route Start Last Admin Trade Name Jenelle PRN Reason Stop Dose Admin Calcitriol 0.5 mcg 04/06/17 11:42 05/23/17 09:14 Rocaltrol - PO 0.5 mcg DAILY [facility] Administration Calcium Acetate 667 mg 03/25/17 17:30 05/23/17 08:36 Phoslo - PO 667 mg TIDCM [facility] Administration Calcium Carbonate/Cholecalciferol 2 tab 03/25/17 15:00 05/23/17 09:15 Os-Justin 500+D - PO 2 tab DAILY [facility] Administration Carvedilol 25 mg 03/25/17 10:00 05/23/17 09:14 Coreg - PO 25 mg BID [facility] Administration Ferrous Sulfate 325 mg 03/28/17 17:30 05/23/17 08:36 Feosol - PO 325 mg BIDWM [facility] Administration Hydralazine HCl 100 mg 05/06/17 05:31 05/23/17 05:13 Apresoline - PO 100 mg TID [facility] Administration Nifedipine 120 mg 05/21/17 13:06 05/23/17 09:13 Procardia Xl - PO 120 mg DAILY [facility] Administration Valsartan 160 mg 03/27/17 22:00 05/23/17 09:14 Diovan - PO 160 mg BID [facility] Administration Impression 1. ESRD 2. HTN 3. hypocalcemia improving 4. anemia 5. hyperparathyroidism due to renal disease Plan - HD in am - discharge planning - epogen for anemia - monitor blood pressure - no acute change in management Dr Ramos
--- NOTE | 2017-05-23 14:18 | PN ---
Progress Note, Physician History of Present Illness: No chest pain or dyspnea. - Current Medication List Current Medications: Active Medications Calcitriol (Rocaltrol -) 0.5 mcg PO DAILY [facility] Last Admin: 05/23/17 09:14 Dose: 0.5 mcg Calcium Acetate (Phoslo -) 667 mg PO TIDCM [facility] Last Admin: 05/23/17 12:57 Dose: 667 mg Calcium Carbonate/Cholecalciferol (Os-Justin 500+D -) 2 tab PO DAILY [facility] Last Admin: 05/23/17 09:15 Dose: 2 tab Carvedilol (Coreg -) 25 mg PO BID [facility] Last Admin: 05/23/17 09:14 Dose: 25 mg Epoetin Refugio (Epogen -) 4,000 units IVPUSH ONCE ONE Stop: 05/24/17 12:40 Ferrous Sulfate (Feosol -) 325 mg PO BIDWM [facility] Last Admin: 05/23/17 08:36 Dose: 325 mg Heparin Sodium (Porcine) (Heparin -) 1,000 unit IVPUSH ONCE ONE Stop: 05/24/17 12:40 Hydralazine HCl (Apresoline -) 100 mg PO TID [facility] Last Admin: 05/23/17 05:13 Dose: 100 mg Nifedipine (Procardia Xl -) 120 mg PO DAILY [facility] Last Admin: 05/23/17 09:13 Dose: 120 mg Valsartan (Diovan -) 160 mg PO BID [facility] Last Admin: 05/23/17 09:14 Dose: 160 mg - Objective Vital Signs: Vital Signs Temperature 98.4 F 05/23/17 10:00 Pulse Rate 80 05/23/17 10:00 Respiratory Rate 16 05/23/17 10:00 Blood Pressure 148/96 05/23/17 10:00 O2 Sat by Pulse Oximetry (%) 100 05/23/17 09:00 Constitutional: Yes: No Distress, Calm Neck: Yes: Supple Cardiovascular: Yes: Regular Rate and Rhythm Respiratory: Yes: Regular, CTA Bilaterally Gastrointestinal: Yes: Normal Bowel Sounds, Soft Edema: No Labs: CBC, BMP 05/17/17 07:00 05/20/17 06:45 INR, PTT INR 1.07 (0.82-1.09) 03/24/17 20:30 Problem List - Problems (1) Acute on chronic kidney failure Code(s): N17.9 - ACUTE KIDNEY FAILURE, UNSPECIFIED N18.9 - CHRONIC KIDNEY DISEASE, UNSPECIFIED (2) ESRD (end stage renal disease) Code(s): N18.6 - END STAGE RENAL DISEASE (3) Hypertensive cardiomyopathy Code(s): I11.9 - HYPERTENSIVE HEART DISEASE WITHOUT HEART FAILURE I42.9 - CARDIOMYOPATHY, UNSPECIFIED Qualifiers: Heart failure presence: without heart failure Qualified Code(s): I11.9 - Hypertensive heart disease without heart failure; I43 - Cardiomyopathy in diseases classified elsewhere (4) Diastolic dysfunction Code(s): I51.9 - HEART DISEASE, UNSPECIFIED (5) Hypocalcemia Code(s): E83.51 - HYPOCALCEMIA (6) Hyperparathyroidism due to renal insufficiency Code(s): N25.81 - SECONDARY HYPERPARATHYROIDISM OF RENAL ORIGIN Assessment/Plan 03/25/2017 Echo: Normal LV size and fxn, mod cLVH, mild LAE, mild TR, RVSP 30-40 mmHg, mild [place], Tr-mild [place] 1. ESRD->HD 2. LV diastolic dysfunction with class I-II NYHA classification LV failure, compensated 3. CAD angina pectoris abnormal EKG with evidence of demand ischemia 4. HTN/HCVD, BP control not at goal 5. Anemia 6. Hypocalcemia improving 7. Hyperparathyroidism due to renal disease PLAN: 1. Continue Coreg 25 mg bid, Procardia XL 120 qd, Diovan 160 bid and hydralazine 100 tid, may add Imdur if further BP reduction needed 2. HD as per renal service, outpatient HD arrangement pending insurance coverage
--- NOTE | 2017-05-23 23:50 | PN ---
Progress Note, Physician History of Present Illness: No new complaints - Current Medication List Current Medications: Active Medications Calcitriol (Rocaltrol -) 0.5 mcg PO DAILY [facility] Last Admin: 05/23/17 09:14 Dose: 0.5 mcg Calcium Acetate (Phoslo -) 667 mg PO TIDCM [facility] Last Admin: 05/23/17 17:23 Dose: 667 mg Calcium Carbonate/Cholecalciferol (Os-Justin 500+D -) 2 tab PO DAILY [facility] Last Admin: 05/23/17 09:15 Dose: 2 tab Carvedilol (Coreg -) 25 mg PO BID [facility] Last Admin: 05/23/17 21:48 Dose: 25 mg Epoetin Refugio (Epogen -) 4,000 units IVPUSH ONCE ONE Stop: 05/24/17 12:40 Ferrous Sulfate (Feosol -) 325 mg PO BIDWM [facility] Last Admin: 05/23/17 17:23 Dose: 325 mg Heparin Sodium (Porcine) (Heparin -) 1,000 unit IVPUSH ONCE ONE Stop: 05/24/17 12:40 Hydralazine HCl (Apresoline -) 100 mg PO TID [facility] Last Admin: 05/23/17 21:47 Dose: 100 mg Nifedipine (Procardia Xl -) 120 mg PO DAILY [facility] Last Admin: 05/23/17 09:13 Dose: 120 mg Valsartan (Diovan -) 160 mg PO BID [facility] Last Admin: 05/23/17 21:47 Dose: 160 mg - Objective Vital Signs: Vital Signs Temperature 98.5 F 05/23/17 16:20 Pulse Rate 100 H 05/23/17 16:20 Respiratory Rate 20 05/23/17 16:20 Blood Pressure 130/81 05/23/17 16:20 O2 Sat by Pulse Oximetry (%) 100 05/23/17 09:00 Constitutional: Yes: No Distress Eyes: Yes: WNL HENT: Yes: WNL Neck: Yes: WNL, Supple Cardiovascular: Yes: WNL, Regular Rate and Rhythm Respiratory: Yes: WNL, Regular, CTA Bilaterally Gastrointestinal: Yes: WNL, Normal Bowel Sounds, Soft Labs: CBC, BMP 05/17/17 07:00 05/20/17 06:45 INR, PTT INR 1.07 (0.82-1.09) 03/24/17 20:30 Problem List - Problems (1) ESRD (end stage renal disease) Code(s): N18.6 - END STAGE RENAL DISEASE (2) Diastolic dysfunction Code(s): I51.9 - HEART DISEASE, UNSPECIFIED (3) Hypertension Code(s): I10 - ESSENTIAL (PRIMARY) HYPERTENSION Qualifiers: Hypertension type: essential hypertension Qualified Code(s): I10 - Essential (primary) hypertension (4) Anemia Code(s): D64.9 - ANEMIA, UNSPECIFIED (5) Hyperparathyroidism due to renal insufficiency Code(s): N25.81 - SECONDARY HYPERPARATHYROIDISM OF RENAL ORIGIN
[2017-05-24] MEDS: hydrALAZINE HCL 50 MG TABLET (FP) PO SCH ×3 (06:16→22:00)
[2017-05-24] MEDS ORDERED: HEPARIN NA (PORCINE) 5,000 UNITS/ML 1ML VIAL IVPUSH ONE (08:30)
[2017-05-24] MEDS ORDERED: EPOETIN ALFA 2,000 UNITS/1 ML VIAL IVPUSH ONE (08:30)
[2017-05-24] MEDS: FERROUS SO4 325 MG TABLET (FP) PO SCH ×2 (08:30→17:33)
[2017-05-24] MEDS: CALCIUM ACETATE 667 MG CAPSULE (FP) PO SCH ×3 (08:30→17:33)
[2017-05-24 08:53] LABS: BASOPHIL 1.3 % (0-2.0); EOSINOPHIL 2.8 % (0-4.5); MCH 27.2 pg (25.7-33.7); MCHC 32.8 g/dl (32.0-35.9); MEAN CELL VOLUME 83.1 fl (80-96); MEAN PLT VOLUME 7.9 fl (7.5-11.1); NEUTROPHILS 49.7 % (42.8-82.8); PLATELET COUNT 185 K/MM3 (134-434); RDW 20.4 % (11.9-15.9); WHITE BLOOD COUNT 5.3 K/mm3 (4.0-10.0)
[2017-05-24 09:17] LABS: ALBUMIN 3.4 g/dl (3.4-5.0); ANION GAP 13 (8-16); BILIRUBIN,TOTAL 0.4 mg/dL (0.2-1.0); CALCIUM 8.6 mg/dL (8.5-10.1); CO2 28 mmol/L (21-32); GLUCOSE,RANDOM 92 mg/dL (74-106); SGOT/AST 12 U/L (15-37); SGPT/ALT 10 U/L (12-78); TOT PROT 6.5 g/dl (6.4-8.2)
[2017-05-24 09:22] LABS: ALK PHOS 84 U/L (45-117)
[2017-05-24 09:28] LABS: CREATININE 9.8 mg/dL (0.7-1.3)
[2017-05-24 09:35] LABS: ANISOCYTOSIS 2+
[2017-05-24] MEDS: CARVEDILOL 25 MG TABLET (FP) PO SCH ×2 (12:07→22:01)
[2017-05-24] MEDS: CALCIUM 500MG/VIT-D 200 UNITS COMBO TABLET (FP) PO SCH (12:07)
[2017-05-24] MEDS: NIFEdipine E.R 60 MG TABLET (UD) PO SCH (12:07)
[2017-05-24] MEDS: VALSARTAN 160 MG TABLET (UD) PO SCH ×2 (12:07→22:00)
[2017-05-24] MEDS: CALCITRIOL 0.25 MCG CAPSULE (FP) PO SCH (12:08)
--- NOTE | 2017-05-24 13:20 | PN ---
Progress Note, Physician History of Present Illness: Renal f/u Pt without complaints Dialysis completed earlier - Current Medication List Current Medications: Active Medications Calcitriol (Rocaltrol -) 0.5 mcg PO DAILY [facility] Last Admin: 05/24/17 12:08 Dose: 0.5 mcg Calcium Acetate (Phoslo -) 667 mg PO TIDCM [facility] Last Admin: 05/24/17 12:06 Dose: 667 mg Calcium Carbonate/Cholecalciferol (Os-Justin 500+D -) 2 tab PO DAILY [facility] Last Admin: 05/24/17 12:07 Dose: 2 tab Carvedilol (Coreg -) 25 mg PO BID [facility] Last Admin: 05/24/17 12:07 Dose: 25 mg Ferrous Sulfate (Feosol -) 325 mg PO BIDWM [facility] Last Admin: 05/24/17 08:30 Dose: 325 mg Hydralazine HCl (Apresoline -) 100 mg PO TID [facility] Last Admin: 05/24/17 06:16 Dose: 100 mg Nifedipine (Procardia Xl -) 120 mg PO DAILY [facility] Last Admin: 05/24/17 12:07 Dose: 120 mg Valsartan (Diovan -) 160 mg PO BID [facility] Last Admin: 05/24/17 12:07 Dose: 160 mg - Objective Vital Signs: Vital Signs Temperature 97.9 F 05/24/17 06:35 Pulse Rate 74 05/24/17 11:00 Respiratory Rate 18 05/24/17 11:00 Blood Pressure 153/101 05/24/17 11:00 O2 Sat by Pulse Oximetry (%) 100 05/23/17 21:00 Constitutional: Yes: No Distress Cardiovascular: Yes: S1, S2 Respiratory: Yes: CTA Bilaterally Gastrointestinal: Yes: Soft. No: Tenderness, Rebound Edema: No Labs: CBC, BMP 05/24/17 06:48 05/24/17 06:48 INR, PTT INR 1.07 (0.82-1.09) 03/24/17 20:30 Laboratory Tests 05/24/17 06:48 Calcium 8.6 Assessment/Plan Impression 1. ESRD 2. HTN 3.Anemia stable 4.. Secondary hyperparathyroidism Plan - Add Clonidine for the HTN - Rail Car Driver Dr Damico
[2017-05-24] MEDS ORDERED: cloNIDine HCL 0.1 MG TABLET PO ONE (13:22)
--- NOTE | 2017-05-25 01:23 | PN ---
Progress Note, Physician History of Present Illness: Pt seen and examined 05/24/17 however note is being entered late - Current Medication List Current Medications: Active Medications Calcitriol (Rocaltrol -) 0.5 mcg PO DAILY [facility] Last Admin: 05/24/17 12:08 Dose: 0.5 mcg Calcium Acetate (Phoslo -) 667 mg PO TIDCM [facility] Last Admin: 05/24/17 17:33 Dose: 667 mg Calcium Carbonate/Cholecalciferol (Os-Justin 500+D -) 2 tab PO DAILY [facility] Last Admin: 05/24/17 12:07 Dose: 2 tab Carvedilol (Coreg -) 25 mg PO BID [facility] Last Admin: 05/24/17 22:01 Dose: 25 mg Ferrous Sulfate (Feosol -) 325 mg PO BIDWM [facility] Last Admin: 05/24/17 17:33 Dose: 325 mg Hydralazine HCl (Apresoline -) 100 mg PO TID [facility] Last Admin: 05/24/17 22:00 Dose: 100 mg Nifedipine (Procardia Xl -) 120 mg PO DAILY [facility] Last Admin: 05/24/17 12:07 Dose: 120 mg Valsartan (Diovan -) 160 mg PO BID [facility] Last Admin: 05/24/17 22:00 Dose: 160 mg - Objective Vital Signs: Vital Signs Temperature 98.7 F 05/24/17 22:00 Pulse Rate 78 05/24/17 22:00 Respiratory Rate 20 05/24/17 22:00 Blood Pressure 132/71 05/24/17 22:00 O2 Sat by Pulse Oximetry (%) 100 05/24/17 21:00 Constitutional: Yes: No Distress Eyes: Yes: WNL HENT: Yes: WNL Neck: Yes: WNL, Supple Cardiovascular: Yes: WNL, Regular Rate and Rhythm Respiratory: Yes: WNL, Regular, CTA Bilaterally Gastrointestinal: Yes: WNL, Normal Bowel Sounds, Soft Labs: CBC, BMP 05/24/17 06:48 05/24/17 06:48 INR, PTT INR 1.07 (0.82-1.09) 03/24/17 20:30 Problem List - Problems (1) ESRD (end stage renal disease) Code(s): N18.6 - END STAGE RENAL DISEASE (2) Diastolic dysfunction Code(s): I51.9 - HEART DISEASE, UNSPECIFIED (3) Hypertension Code(s): I10 - ESSENTIAL (PRIMARY) HYPERTENSION Qualifiers: Hypertension type: essential hypertension Qualified Code(s): I10 - Essential (primary) hypertension (4) Anemia Code(s): D64.9 - ANEMIA, UNSPECIFIED (5) Hyperparathyroidism due to renal insufficiency Code(s): N25.81 - SECONDARY HYPERPARATHYROIDISM OF RENAL ORIGIN
[2017-05-25] MEDS: hydrALAZINE HCL 50 MG TABLET (FP) PO SCH ×3 (05:40→21:07)
[2017-05-25] MEDS: FERROUS SO4 325 MG TABLET (FP) PO SCH ×2 (08:11→17:31)
[2017-05-25] MEDS: CALCIUM ACETATE 667 MG CAPSULE (FP) PO SCH ×3 (08:11→17:31)
[2017-05-25] MEDS ORDERED: PT OWN MED DRAWER 7, Y5N ONE (09:16)
[2017-05-25] MEDS: NIFEdipine E.R 60 MG TABLET (UD) PO SCH (09:18)
[2017-05-25] MEDS: VALSARTAN 160 MG TABLET (UD) PO SCH ×2 (09:18→21:07)
[2017-05-25] MEDS: CALCITRIOL 0.25 MCG CAPSULE (FP) PO SCH (09:18)
[2017-05-25] MEDS: CARVEDILOL 25 MG TABLET (FP) PO SCH ×2 (09:18→21:07)
[2017-05-25] MEDS: CALCIUM 500MG/VIT-D 200 UNITS COMBO TABLET (FP) PO SCH (09:18)
--- NOTE | 2017-05-25 12:03 | PN ---
Progress Note, Physician History of Present Illness: Renal f/u Pt without complaints Pt's diastolic BP better today No c/o MCKINNEY or epistaxis - Current Medication List Current Medications: Active Medications Calcitriol (Rocaltrol -) 0.5 mcg PO DAILY [facility] Last Admin: 05/25/17 09:18 Dose: 0.5 mcg Calcium Acetate (Phoslo -) 667 mg PO TIDCM [facility] Last Admin: 05/25/17 08:11 Dose: 667 mg Calcium Carbonate/Cholecalciferol (Os-Justin 500+D -) 2 tab PO DAILY [facility] Last Admin: 05/25/17 09:18 Dose: 2 tab Carvedilol (Coreg -) 25 mg PO BID [facility] Last Admin: 05/25/17 09:18 Dose: 25 mg Ferrous Sulfate (Feosol -) 325 mg PO BIDWM [facility] Last Admin: 05/25/17 08:11 Dose: 325 mg Hydralazine HCl (Apresoline -) 100 mg PO TID [facility] Last Admin: 05/25/17 05:40 Dose: 100 mg Nifedipine (Procardia Xl -) 120 mg PO DAILY [facility] Last Admin: 05/25/17 09:18 Dose: 120 mg Valsartan (Diovan -) 160 mg PO BID [facility] Last Admin: 05/25/17 09:18 Dose: 160 mg - Objective Vital Signs: Vital Signs Temperature 98 F 05/25/17 06:55 Pulse Rate 74 05/25/17 06:55 Respiratory Rate 20 05/25/17 06:55 Blood Pressure 173/92 05/25/17 06:55 O2 Sat by Pulse Oximetry (%) 100 05/24/17 21:00 Selected Entries 05/24/17 05/24/17 17:01 22:00 Pulse Rate 83 78 Blood Pressure 123/68 132/71 Blood Pressure 86 91 Mean Cardiovascular: Yes: Murmur (SSEM), S1, S2 Respiratory: Yes: CTA Bilaterally Gastrointestinal: Yes: Soft. No: Tenderness, Rebound Edema: No Labs: CBC, BMP 05/24/17 06:48 05/24/17 06:48 INR, PTT INR 1.07 (0.82-1.09) 03/24/17 20:30 Assessment/Plan Impression 1. ESRD 2. HTN improved 3.Anemia stable 4.. Secondary hyperparathyroidism Plan - Clonidine with parameters - Next HD 05/27 - Medical Photographer Dr Damico
--- NOTE | 2017-05-25 22:01 | PN ---
Progress Note, Physician History of Present Illness: No new complaints - Current Medication List Current Medications: Active Medications Calcitriol (Rocaltrol -) 0.5 mcg PO DAILY [facility] Last Admin: 05/25/17 09:18 Dose: 0.5 mcg Calcium Acetate (Phoslo -) 667 mg PO TIDCM [facility] Last Admin: 05/25/17 17:31 Dose: 667 mg Calcium Carbonate/Cholecalciferol (Os-Justin 500+D -) 2 tab PO DAILY [facility] Last Admin: 05/25/17 09:18 Dose: 2 tab Carvedilol (Coreg -) 25 mg PO BID [facility] Last Admin: 05/25/17 21:07 Dose: 25 mg Ferrous Sulfate (Feosol -) 325 mg PO BIDWM [facility] Last Admin: 05/25/17 17:31 Dose: 325 mg Hydralazine HCl (Apresoline -) 100 mg PO TID [facility] Last Admin: 05/25/17 21:07 Dose: 100 mg Nifedipine (Procardia Xl -) 120 mg PO DAILY [facility] Last Admin: 05/25/17 09:18 Dose: 120 mg Valsartan (Diovan -) 160 mg PO BID [facility] Last Admin: 05/25/17 21:07 Dose: 160 mg - Objective Vital Signs: Vital Signs Temperature 98.8 F 05/25/17 17:05 Pulse Rate 82 05/25/17 17:05 Respiratory Rate 20 05/25/17 17:05 Blood Pressure 139/77 05/25/17 17:05 O2 Sat by Pulse Oximetry (%) 100 05/24/17 21:00 Eyes: Yes: WNL HENT: Yes: WNL Neck: Yes: WNL, Supple Cardiovascular: Yes: WNL, Regular Rate and Rhythm Respiratory: Yes: WNL, Regular, CTA Bilaterally Gastrointestinal: Yes: WNL, Normal Bowel Sounds, Soft Labs: CBC, BMP 05/24/17 06:48 05/24/17 06:48 INR, PTT INR 1.07 (0.82-1.09) 03/24/17 20:30 Problem List - Problems (1) ESRD (end stage renal disease) Code(s): N18.6 - END STAGE RENAL DISEASE (2) Diastolic dysfunction Code(s): I51.9 - HEART DISEASE, UNSPECIFIED (3) Hypertension Code(s): I10 - ESSENTIAL (PRIMARY) HYPERTENSION Qualifiers: Hypertension type: essential hypertension Qualified Code(s): I10 - Essential (primary) hypertension (4) Anemia Code(s): D64.9 - ANEMIA, UNSPECIFIED (5) Hyperparathyroidism due to renal insufficiency Code(s): N25.81 - SECONDARY HYPERPARATHYROIDISM OF RENAL ORIGIN
[2017-05-26] MEDS: hydrALAZINE HCL 50 MG TABLET (FP) PO SCH ×3 (05:21→21:52)
[2017-05-26] MEDS ORDERED: PT OWN MED DRAWER 7, Y5N ONE ×2 (09:39→10:32)
[2017-05-26] MEDS: CARVEDILOL 25 MG TABLET (FP) PO SCH ×2 (09:40→21:52)
[2017-05-26] MEDS: FERROUS SO4 325 MG TABLET (FP) PO SCH ×2 (09:40→17:56)
[2017-05-26] MEDS: VALSARTAN 160 MG TABLET (UD) PO SCH ×2 (09:40→21:53)
[2017-05-26] MEDS: CALCIUM 500MG/VIT-D 200 UNITS COMBO TABLET (FP) PO SCH (09:40)
[2017-05-26] MEDS: CALCIUM ACETATE 667 MG CAPSULE (FP) PO SCH ×3 (09:40→17:56)
[2017-05-26] MEDS: NIFEdipine E.R 60 MG TABLET (UD) PO SCH (09:41)
--- NOTE | 2017-05-26 11:39 | PN ---
Progress Note, Physician History of Present Illness: No chest pain or dyspnea. - Current Medication List Current Medications: Active Medications Calcitriol (Rocaltrol -) 0.5 mcg PO DAILY [facility] Last Admin: 05/25/17 09:18 Dose: 0.5 mcg Calcium Acetate (Phoslo -) 667 mg PO TIDCM [facility] Last Admin: 05/26/17 09:40 Dose: 667 mg Calcium Carbonate/Cholecalciferol (Os-Justin 500+D -) 2 tab PO DAILY [facility] Last Admin: 05/26/17 09:40 Dose: 2 tab Carvedilol (Coreg -) 25 mg PO BID [facility] Last Admin: 05/26/17 09:40 Dose: 25 mg Ferrous Sulfate (Feosol -) 325 mg PO BIDWM [facility] Last Admin: 05/26/17 09:40 Dose: 325 mg Hydralazine HCl (Apresoline -) 100 mg PO TID [facility] Last Admin: 05/26/17 05:21 Dose: 100 mg Nifedipine (Procardia Xl -) 120 mg PO DAILY [facility] Last Admin: 05/26/17 09:41 Dose: 120 mg Valsartan (Diovan -) 160 mg PO BID [facility] Last Admin: 05/26/17 09:40 Dose: 160 mg - Objective Vital Signs: Vital Signs Temperature 98.6 F 05/26/17 06:30 Pulse Rate 78 05/26/17 06:30 Respiratory Rate 20 05/26/17 06:30 Blood Pressure 182/100 05/26/17 07:02 O2 Sat by Pulse Oximetry (%) 100 05/26/17 09:00 Constitutional: Yes: No Distress, Calm Neck: Yes: Supple Cardiovascular: Yes: Regular Rate and Rhythm Respiratory: Yes: Regular, Diminished Gastrointestinal: Yes: Normal Bowel Sounds, Soft Edema: No Labs: CBC, BMP 05/24/17 06:48 05/24/17 06:48 INR, PTT INR 1.07 (0.82-1.09) 03/24/17 20:30 Problem List - Problems (1) Acute on chronic kidney failure Code(s): N17.9 - ACUTE KIDNEY FAILURE, UNSPECIFIED N18.9 - CHRONIC KIDNEY DISEASE, UNSPECIFIED (2) ESRD (end stage renal disease) Code(s): N18.6 - END STAGE RENAL DISEASE (3) Hypertensive cardiomyopathy Code(s): I11.9 - HYPERTENSIVE HEART DISEASE WITHOUT HEART FAILURE I42.9 - CARDIOMYOPATHY, UNSPECIFIED Qualifiers: Heart failure presence: without heart failure Qualified Code(s): I11.9 - Hypertensive heart disease without heart failure; I43 - Cardiomyopathy in diseases classified elsewhere (4) Diastolic dysfunction Code(s): I51.9 - HEART DISEASE, UNSPECIFIED (5) Hypocalcemia Code(s): E83.51 - HYPOCALCEMIA (6) Hyperparathyroidism due to renal insufficiency Code(s): N25.81 - SECONDARY HYPERPARATHYROIDISM OF RENAL ORIGIN Assessment/Plan 03/25/2017 Echo: Normal LV size and fxn, mod cLVH, mild LAE, mild TR, RVSP 30-40 mmHg, mild [place], Tr-mild [place] 1. ESRD->HD 2. LV diastolic dysfunction with class I-II NYHA classification LV failure, compensated 3. CAD angina pectoris abnormal EKG with evidence of demand ischemia 4. HTN/HCVD, BP control not at goal 5. Anemia 6. Hypocalcemia improving 7. Hyperparathyroidism due to renal disease PLAN: 1. Continue Coreg 25 mg bid, Procardia XL 120 qd, Diovan 160 bid and hydralazine 100 tid, may add Imdur if further BP reduction needed 2. HD as per renal service, outpatient HD arrangement pending insurance coverage
[2017-05-26] MEDS: CALCITRIOL 0.25 MCG CAPSULE (FP) PO SCH (12:56)
--- NOTE | 2017-05-26 17:35 | PN ---
Progress Note, Physician History of Present Illness: Pt seen and examined at bedside. He is awake and alert. - Current Medication List Current Medications: Active Medications Calcitriol (Rocaltrol -) 0.5 mcg PO DAILY [facility] Last Admin: 05/26/17 12:56 Dose: 0.5 mcg Calcium Acetate (Phoslo -) 667 mg PO TIDCM [facility] Last Admin: 05/26/17 12:56 Dose: 667 mg Calcium Carbonate/Cholecalciferol (Os-Justin 500+D -) 2 tab PO DAILY [facility] Last Admin: 05/26/17 09:40 Dose: 2 tab Carvedilol (Coreg -) 25 mg PO BID [facility] Last Admin: 05/26/17 09:40 Dose: 25 mg Ferrous Sulfate (Feosol -) 325 mg PO BIDWM [facility] Last Admin: 05/26/17 09:40 Dose: 325 mg Hydralazine HCl (Apresoline -) 100 mg PO TID [facility] Last Admin: 05/26/17 14:33 Dose: 100 mg Nifedipine (Procardia Xl -) 120 mg PO DAILY [facility] Last Admin: 05/26/17 09:41 Dose: 120 mg Valsartan (Diovan -) 160 mg PO BID [facility] Last Admin: 05/26/17 09:40 Dose: 160 mg - Objective Vital Signs: Vital Signs Temperature 98.2 F 05/26/17 16:15 Pulse Rate 81 05/26/17 16:15 Respiratory Rate 18 05/26/17 16:15 Blood Pressure 142/79 05/26/17 16:15 O2 Sat by Pulse Oximetry (%) 100 05/26/17 09:00 Constitutional: Yes: Calm Eyes: Yes: Conjunctiva Clear HENT: Yes: Atraumatic Cardiovascular: Yes: S1, S2 Respiratory: Yes: CTA Bilaterally Gastrointestinal: Yes: WNL Genitourinary: Yes: WNL Musculoskeletal: Yes: WNL Edema: No Neurological: Yes: Oriented Psychiatric: Yes: Oriented Labs: CBC, BMP 05/24/17 06:48 05/24/17 06:48 INR, PTT INR 1.07 (0.82-1.09) 03/24/17 20:30 Problem List - Problems (1) ESRD (end stage renal disease) Code(s): N18.6 - END STAGE RENAL DISEASE (2) Hypertension Code(s): I10 - ESSENTIAL (PRIMARY) HYPERTENSION Qualifiers: Hypertension type: essential hypertension Qualified Code(s): I10 - Essential (primary) hypertension (3) Hyperparathyroidism due to renal insufficiency Code(s): N25.81 - SECONDARY HYPERPARATHYROIDISM OF RENAL ORIGIN Assessment/Plan Current Medications Generic Name Dose Route Start Last Admin Trade Name Freq PRN Reason Stop Dose Admin Calcitriol 0.5 mcg 04/06/17 11:42 05/26/17 12:56 Rocaltrol - PO 0.5 mcg DAILY [facility] Administration Calcium Acetate 667 mg 03/25/17 17:30 05/26/17 12:56 Phoslo - PO 667 mg TIDCM [facility] Administration Calcium Carbonate/Cholecalciferol 2 tab 03/25/17 15:00 05/26/17 09:40 Os-Justin 500+D - PO 2 tab DAILY [facility] Administration Carvedilol 25 mg 03/25/17 10:00 05/26/17 09:40 Coreg - PO 25 mg BID [facility] Administration Ferrous Sulfate 325 mg 03/28/17 17:30 05/26/17 09:40 Feosol - PO 325 mg BIDWM [facility] Administration Hydralazine HCl 100 mg 05/06/17 05:31 05/26/17 14:33 Apresoline - PO 100 mg TID [facility] Administration Nifedipine 120 mg 05/21/17 13:06 05/26/17 09:41 Procardia Xl - PO 120 mg DAILY [facility] Administration Valsartan 160 mg 03/27/17 22:00 05/26/17 09:40 Diovan - PO 160 mg BID [facility] Administration Impression 1. ESRD 2. HTN 3. hypocalcemia improving 4. anemia 5. hyperparathyroidism due to renal disease Plan - HD in am - discharge planning - epogen for anemia - monitor blood pressure - no acute change in management - spoke to case management Dr Ramos
--- NOTE | 2017-05-26 20:42 | PN ---
Progress Note, Physician History of Present Illness: no complaints - Current Medication List Current Medications: Active Medications Calcitriol (Rocaltrol -) 0.5 mcg PO DAILY [facility] Last Admin: 05/26/17 12:56 Dose: 0.5 mcg Calcium Acetate (Phoslo -) 667 mg PO TIDCM [facility] Last Admin: 05/26/17 17:56 Dose: 667 mg Calcium Carbonate/Cholecalciferol (Os-Justin 500+D -) 2 tab PO DAILY [facility] Last Admin: 05/26/17 09:40 Dose: 2 tab Carvedilol (Coreg -) 25 mg PO BID [facility] Last Admin: 05/26/17 09:40 Dose: 25 mg Epoetin Refugio (Epogen -) 4,000 units IVPUSH ONCE ONE Stop: 05/27/17 17:36 Ferrous Sulfate (Feosol -) 325 mg PO BIDWM [facility] Last Admin: 05/26/17 17:56 Dose: 325 mg Heparin Sodium (Porcine) (Heparin -) 1,000 unit IVPUSH ONCE ONE Stop: 05/27/17 17:36 Hydralazine HCl (Apresoline -) 100 mg PO TID [facility] Last Admin: 05/26/17 14:33 Dose: 100 mg Nifedipine (Procardia Xl -) 120 mg PO DAILY [facility] Last Admin: 05/26/17 09:41 Dose: 120 mg Valsartan (Diovan -) 160 mg PO BID [facility] Last Admin: 05/26/17 09:40 Dose: 160 mg - Objective Vital Signs: Vital Signs Temperature 98.2 F 05/26/17 16:15 Pulse Rate 81 05/26/17 16:15 Respiratory Rate 18 05/26/17 16:15 Blood Pressure 142/79 05/26/17 16:15 O2 Sat by Pulse Oximetry (%) 100 05/26/17 09:00 Constitutional: Yes: No Distress HENT: Yes: Atraumatic Neck: Yes: Supple Cardiovascular: Yes: Regular Rate and Rhythm Respiratory: Yes: CTA Bilaterally Gastrointestinal: Yes: Normal Bowel Sounds Extremities: Yes: WNL Edema: No Neurological: Yes: Alert, Oriented Labs: CBC, BMP 05/24/17 06:48 05/24/17 06:48 INR, PTT INR 1.07 (0.82-1.09) 03/24/17 20:30 Problem List - Problems (1) Acute on chronic kidney failure Assessment/Plan: ON HD renal on board Code(s): N17.9 - ACUTE KIDNEY FAILURE, UNSPECIFIED N18.9 - CHRONIC KIDNEY DISEASE, UNSPECIFIED (2) ESRD (end stage renal disease) Assessment/Plan: on hd Code(s): N18.6 - END STAGE RENAL DISEASE (3) Hypertension Assessment/Plan: ON MEDS STABLE Code(s): I10 - ESSENTIAL (PRIMARY) HYPERTENSION Qualifiers: Hypertension type: essential hypertension Qualified Code(s): I10 - Essential (primary) hypertension Assessment/Plan pt awaiting insurance.. dc planning please
[2017-05-27] MEDS: hydrALAZINE HCL 50 MG TABLET (FP) PO SCH ×3 (06:01→21:49)
[2017-05-27 08:56] LABS: MCH 27.6 pg (25.7-33.7); MCHC 33.3 g/dl (32.0-35.9); MEAN CELL VOLUME 82.8 fl (80-96); MEAN PLT VOLUME 7.6 fl (7.5-11.1); PLATELET COUNT 143 K/MM3 (134-434); RDW 20.4 % (11.9-15.9); WHITE BLOOD COUNT 5.1 K/mm3 (4.0-10.0)
[2017-05-27] MEDS: CALCIUM 500MG/VIT-D 200 UNITS COMBO TABLET (FP) PO SCH (09:15)
[2017-05-27] MEDS: CARVEDILOL 25 MG TABLET (FP) PO SCH ×2 (09:15→21:49)
[2017-05-27] MEDS: CALCIUM ACETATE 667 MG CAPSULE (FP) PO SCH ×3 (09:16→17:19)
[2017-05-27] MEDS: CALCITRIOL 0.25 MCG CAPSULE (FP) PO SCH (09:16)
[2017-05-27] MEDS: VALSARTAN 160 MG TABLET (UD) PO SCH ×2 (09:16→21:49)
[2017-05-27] MEDS: FERROUS SO4 325 MG TABLET (FP) PO SCH ×2 (09:16→17:19)
[2017-05-27] MEDS: NIFEdipine E.R 60 MG TABLET (UD) PO SCH (09:16)
--- NOTE | 2017-05-27 11:49 | PN ---
Progress Note, Physician Chief Complaint: Events noted Not in distress History of Present Illness: Patient was seen and examined. Awake and alert. Chart was reviewed Denies chest pain, SOB or palpitations - Current Medication List Current Medications: Active Medications Calcitriol (Rocaltrol -) 0.5 mcg PO DAILY [facility] Last Admin: 05/27/17 09:16 Dose: 0.5 mcg Calcium Acetate (Phoslo -) 667 mg PO TIDCM [facility] Last Admin: 05/27/17 09:16 Dose: 667 mg Calcium Carbonate/Cholecalciferol (Os-Justin 500+D -) 2 tab PO DAILY [facility] Last Admin: 05/27/17 09:15 Dose: 2 tab Carvedilol (Coreg -) 25 mg PO BID [facility] Last Admin: 05/27/17 09:15 Dose: 25 mg Epoetin Refugio (Epogen -) 4,000 units IVPUSH ONCE ONE Stop: 05/27/17 17:36 Ferrous Sulfate (Feosol -) 325 mg PO BIDWM [facility] Last Admin: 05/27/17 09:16 Dose: 325 mg Heparin Sodium (Porcine) (Heparin -) 1,000 unit IVPUSH ONCE ONE Stop: 05/27/17 17:36 Hydralazine HCl (Apresoline -) 100 mg PO TID [facility] Last Admin: 05/27/17 06:01 Dose: 100 mg Nifedipine (Procardia Xl -) 120 mg PO DAILY [facility] Last Admin: 05/27/17 09:16 Dose: 120 mg Valsartan (Diovan -) 160 mg PO BID [facility] Last Admin: 05/27/17 09:16 Dose: 160 mg - Objective Vital Signs: Vital Signs Temperature 98.6 F 05/27/17 06:00 Pulse Rate 72 05/27/17 06:00 Respiratory Rate 18 05/27/17 06:00 Blood Pressure 152/88 05/27/17 06:00 O2 Sat by Pulse Oximetry (%) 100 05/26/17 21:00 Neck: Yes: Supple Cardiovascular: Yes: Regular Rate and Rhythm, S1, S2 Respiratory: Yes: CTA Bilaterally Gastrointestinal: Yes: Normal Bowel Sounds, Soft. No: Tenderness Edema: No Labs: CBC, BMP 05/27/17 08:35 Problem List - Problems (1) Acute on chronic kidney failure Code(s): N17.9 - ACUTE KIDNEY FAILURE, UNSPECIFIED N18.9 - CHRONIC KIDNEY DISEASE, UNSPECIFIED (2) Diastolic dysfunction Code(s): I51.9 - HEART DISEASE, UNSPECIFIED (3) Hypertension Code(s): I10 - ESSENTIAL (PRIMARY) HYPERTENSION Qualifiers: Hypertension type: essential hypertension Qualified Code(s): I10 - Essential (primary) hypertension Assessment/Plan 1. ESRD on HD 2. LV diastolic dysfunction with class I-II NYHA classification LV failure, compensated 3. CAD angina pectoris abnormal EKG with evidence of demand ischemia 4. HTN/HCVD 5. Anemia 6. Hypocalcemia improving 7. Hyperparathyroidism due to renal disease PLAN: 1. Continue Coreg, Procardia XL, Diovan and Hydralazine 2. HD as per renal service, outpatient HD arrangement pending insurance coverage Mateus Singh MD
--- NOTE | 2017-05-27 15:33 | PN ---
Progress Note, Physician History of Present Illness: Pt seen and examined at bedside. He is awake and alert. - Current Medication List Current Medications: Active Medications Calcitriol (Rocaltrol -) 0.5 mcg PO DAILY [facility] Last Admin: 05/27/17 09:16 Dose: 0.5 mcg Calcium Acetate (Phoslo -) 667 mg PO TIDCM [facility] Last Admin: 05/27/17 13:18 Dose: 667 mg Calcium Carbonate/Cholecalciferol (Os-Justin 500+D -) 2 tab PO DAILY [facility] Last Admin: 05/27/17 09:15 Dose: 2 tab Carvedilol (Coreg -) 25 mg PO BID [facility] Last Admin: 05/27/17 09:15 Dose: 25 mg Epoetin Refugio (Epogen -) 4,000 units IVPUSH ONCE ONE Stop: 05/27/17 17:36 Ferrous Sulfate (Feosol -) 325 mg PO BIDWM [facility] Last Admin: 05/27/17 09:16 Dose: 325 mg Heparin Sodium (Porcine) (Heparin -) 1,000 unit IVPUSH ONCE ONE Stop: 05/27/17 17:36 Hydralazine HCl (Apresoline -) 100 mg PO TID [facility] Last Admin: 05/27/17 13:17 Dose: 100 mg Nifedipine (Procardia Xl -) 120 mg PO DAILY [facility] Last Admin: 05/27/17 09:16 Dose: 120 mg Valsartan (Diovan -) 160 mg PO BID [facility] Last Admin: 05/27/17 09:16 Dose: 160 mg - Objective Vital Signs: Vital Signs Temperature 98.4 F 05/27/17 09:00 Pulse Rate 70 05/27/17 09:00 Respiratory Rate 16 05/27/17 09:00 Blood Pressure 182/111 05/27/17 09:00 O2 Sat by Pulse Oximetry (%) 100 05/27/17 09:00 Constitutional: Yes: Calm Eyes: Yes: Conjunctiva Clear HENT: Yes: Atraumatic Neck: Yes: Supple Cardiovascular: Yes: S1, S2 Respiratory: Yes: CTA Bilaterally Gastrointestinal: Yes: Soft Genitourinary: Yes: WNL Musculoskeletal: Yes: WNL Extremities: Yes: WNL Edema: No Neurological: Yes: Oriented Psychiatric: Yes: Oriented Labs: CBC, BMP 05/27/17 08:35 05/24/17 06:48 INR, PTT INR 1.07 (0.82-1.09) 03/24/17 20:30 Problem List - Problems (1) ESRD (end stage renal disease) Code(s): N18.6 - END STAGE RENAL DISEASE (2) Hypertension Code(s): I10 - ESSENTIAL (PRIMARY) HYPERTENSION Qualifiers: Hypertension type: essential hypertension Qualified Code(s): I10 - Essential (primary) hypertension (3) Hyperparathyroidism due to renal insufficiency Code(s): N25.81 - SECONDARY HYPERPARATHYROIDISM OF RENAL ORIGIN Assessment/Plan Current Medications Generic Name Dose Route Start Last Admin Trade Name Freq PRN Reason Stop Dose Admin Calcitriol 0.5 mcg 04/06/17 11:42 05/27/17 09:16 Rocaltrol - PO 0.5 mcg DAILY [facility] Administration Calcium Acetate 667 mg 03/25/17 17:30 05/27/17 13:18 Phoslo - PO 667 mg TIDCM [facility] Administration Calcium Carbonate/Cholecalciferol 2 tab 03/25/17 15:00 05/27/17 09:15 Os-Justin 500+D - PO 2 tab DAILY [facility] Administration Carvedilol 25 mg 03/25/17 10:00 05/27/17 09:15 Coreg - PO 25 mg BID [facility] Administration Epoetin Refugio 4,000 units 05/27/17 17:35 Epogen - IVPUSH 05/27/17 17:36 ONCE ONE Ferrous Sulfate 325 mg 03/28/17 17:30 05/27/17 09:16 Feosol - PO 325 mg BIDWM [facility] Administration Heparin Sodium (Porcine) 1,000 unit 05/27/17 17:35 Heparin - IVPUSH 05/27/17 17:36 ONCE ONE Hydralazine HCl 100 mg 05/06/17 05:31 05/27/17 13:17 Apresoline - PO 100 mg TID [facility] Administration Nifedipine 120 mg 05/21/17 13:06 05/27/17 09:16 Procardia Xl - PO 120 mg DAILY [facility] Administration Valsartan 160 mg 03/27/17 22:00 05/27/17 09:16 Diovan - PO 160 mg BID [facility] Administration Impression 1. ESRD 2. HTN 3. hypocalcemia improving 4. anemia 5. hyperparathyroidism due to renal disease Plan - pt tolerated HD today - discharge planning - epogen for anemia - monitor blood pressure - no acute change in management - spoke to case management Dr Ramos
[2017-05-27] MEDS ORDERED: EPOETIN ALFA 2,000 UNITS/1 ML VIAL IVPUSH ONE (15:45)
[2017-05-27] MEDS ORDERED: HEPARIN NA (PORCINE) 5,000 UNITS/ML 1ML VIAL IVPUSH ONE (15:45)
--- NOTE | 2017-05-27 15:53 | PN ---
Progress Note, Physician History of Present Illness: no complaints - Current Medication List Current Medications: Active Medications Calcitriol (Rocaltrol -) 0.5 mcg PO DAILY [facility] Last Admin: 05/27/17 09:16 Dose: 0.5 mcg Calcium Acetate (Phoslo -) 667 mg PO TIDCM [facility] Last Admin: 05/27/17 13:18 Dose: 667 mg Calcium Carbonate/Cholecalciferol (Os-Justin 500+D -) 2 tab PO DAILY [facility] Last Admin: 05/27/17 09:15 Dose: 2 tab Carvedilol (Coreg -) 25 mg PO BID [facility] Last Admin: 05/27/17 09:15 Dose: 25 mg Ferrous Sulfate (Feosol -) 325 mg PO BIDWM [facility] Last Admin: 05/27/17 09:16 Dose: 325 mg Hydralazine HCl (Apresoline -) 100 mg PO TID [facility] Last Admin: 05/27/17 13:17 Dose: 100 mg Nifedipine (Procardia Xl -) 120 mg PO DAILY [facility] Last Admin: 05/27/17 09:16 Dose: 120 mg Valsartan (Diovan -) 160 mg PO BID [facility] Last Admin: 05/27/17 09:16 Dose: 160 mg - Objective Vital Signs: Vital Signs Temperature 98.4 F 05/27/17 09:00 Pulse Rate 70 05/27/17 09:00 Respiratory Rate 16 05/27/17 09:00 Blood Pressure 182/111 05/27/17 09:00 O2 Sat by Pulse Oximetry (%) 100 05/27/17 09:00 Constitutional: Yes: No Distress HENT: Yes: Atraumatic Neck: Yes: Supple Cardiovascular: Yes: Regular Rate and Rhythm Respiratory: Yes: CTA Bilaterally Gastrointestinal: Yes: Normal Bowel Sounds Extremities: Yes: WNL Neurological: Yes: Alert, Oriented Labs: CBC, BMP 05/27/17 08:35 05/24/17 06:48 INR, PTT INR 1.07 (0.82-1.09) 03/24/17 20:30 Problem List - Problems (1) Acute on chronic kidney failure Assessment/Plan: ON HD renal on board Code(s): N17.9 - ACUTE KIDNEY FAILURE, UNSPECIFIED N18.9 - CHRONIC KIDNEY DISEASE, UNSPECIFIED (2) ESRD (end stage renal disease) Assessment/Plan: on hd Code(s): N18.6 - END STAGE RENAL DISEASE (3) Hypertension Assessment/Plan: ON MEDS STABLE Code(s): I10 - ESSENTIAL (PRIMARY) HYPERTENSION Qualifiers: Hypertension type: essential hypertension Qualified Code(s): I10 - Essential (primary) hypertension Assessment/Plan pt awaiting insurance.. dc planning please
[2017-05-27 17:50] LABS: ALBUMIN 3.4 g/dl (3.4-5.0); ANION GAP 12 (8-16); CALCIUM 8.8 mg/dL (8.5-10.1); CO2 25 mmol/L (21-32); GLUCOSE,RANDOM 110 mg/dL (74-106); TOT PROT 6.7 g/dl (6.4-8.2)
[2017-05-27 17:51] LABS: BILIRUBIN,TOTAL 0.3 mg/dL (0.2-1.0); SGOT/AST 11 U/L (15-37); SGPT/ALT 10 U/L (12-78)
[2017-05-27 17:56] LABS: ALK PHOS 88 U/L (45-117)
[2017-05-28] MEDS: hydrALAZINE HCL 50 MG TABLET (FP) PO SCH ×3 (06:07→21:28)
[2017-05-28] MEDS: CALCITRIOL 0.25 MCG CAPSULE (FP) PO SCH ×2 (08:45→11:41)
[2017-05-28] MEDS: CALCIUM ACETATE 667 MG CAPSULE (FP) PO SCH ×3 (08:45→17:57)
[2017-05-28] MEDS: CALCIUM 500MG/VIT-D 200 UNITS COMBO TABLET (FP) PO SCH ×2 (08:45→11:41)
[2017-05-28] MEDS: VALSARTAN 160 MG TABLET (UD) PO SCH ×3 (08:46→21:27)
[2017-05-28] MEDS: FERROUS SO4 325 MG TABLET (FP) PO SCH ×2 (08:46→17:58)
[2017-05-28] MEDS: NIFEdipine E.R 60 MG TABLET (UD) PO SCH ×2 (08:46→11:41)
[2017-05-28] MEDS: CARVEDILOL 25 MG TABLET (FP) PO SCH ×3 (08:47→21:27)
--- NOTE | 2017-05-28 10:46 | PN ---
Progress Note, Physician History of Present Illness: No chest pain or dyspnea. - Current Medication List Current Medications: Active Medications Calcitriol (Rocaltrol -) 0.5 mcg PO DAILY [facility] Last Admin: 05/28/17 08:45 Dose: 0.5 mcg Calcium Acetate (Phoslo -) 667 mg PO TIDCM [facility] Last Admin: 05/28/17 08:45 Dose: 667 mg Calcium Carbonate/Cholecalciferol (Os-Justin 500+D -) 2 tab PO DAILY [facility] Last Admin: 05/28/17 08:45 Dose: 2 tab Carvedilol (Coreg -) 25 mg PO BID [facility] Last Admin: 05/28/17 08:47 Dose: 25 mg Ferrous Sulfate (Feosol -) 325 mg PO BIDWM [facility] Last Admin: 05/28/17 08:46 Dose: 325 mg Hydralazine HCl (Apresoline -) 100 mg PO TID [facility] Last Admin: 05/28/17 06:07 Dose: 100 mg Nifedipine (Procardia Xl -) 120 mg PO DAILY [facility] Last Admin: 05/28/17 08:46 Dose: 120 mg Valsartan (Diovan -) 160 mg PO BID [facility] Last Admin: 05/28/17 08:46 Dose: 160 mg - Objective Vital Signs: Vital Signs Temperature 97.9 F 05/27/17 15:00 Pulse Rate 81 05/27/17 20:20 Respiratory Rate 18 05/27/17 20:20 Blood Pressure 159/99 05/27/17 20:20 O2 Sat by Pulse Oximetry (%) 100 05/27/17 21:00 Constitutional: Yes: No Distress, Calm Neck: Yes: Supple Cardiovascular: Yes: Regular Rate and Rhythm Respiratory: Yes: Regular, CTA Bilaterally Gastrointestinal: Yes: Normal Bowel Sounds, Soft Edema: No Labs: CBC, BMP 05/27/17 08:35 05/27/17 16:30 INR, PTT INR 1.07 (0.82-1.09) 03/24/17 20:30 Problem List - Problems (1) Acute on chronic kidney failure Code(s): N17.9 - ACUTE KIDNEY FAILURE, UNSPECIFIED N18.9 - CHRONIC KIDNEY DISEASE, UNSPECIFIED (2) ESRD (end stage renal disease) Code(s): N18.6 - END STAGE RENAL DISEASE (3) Hypertensive cardiomyopathy Code(s): I11.9 - HYPERTENSIVE HEART DISEASE WITHOUT HEART FAILURE I42.9 - CARDIOMYOPATHY, UNSPECIFIED Qualifiers: Heart failure presence: without heart failure Qualified Code(s): I11.9 - Hypertensive heart disease without heart failure; I43 - Cardiomyopathy in diseases classified elsewhere (4) Diastolic dysfunction Code(s): I51.9 - HEART DISEASE, UNSPECIFIED (5) Hypocalcemia Code(s): E83.51 - HYPOCALCEMIA (6) Hyperparathyroidism due to renal insufficiency Code(s): N25.81 - SECONDARY HYPERPARATHYROIDISM OF RENAL ORIGIN Assessment/Plan 03/25/2017 Echo: Normal LV size and fxn, mod cLVH, mild LAE, mild TR, RVSP 30-40 mmHg, mild [place], Tr-mild [place] 1. ESRD->HD 2. LV diastolic dysfunction with class I-II NYHA classification LV failure, compensated 3. CAD angina pectoris abnormal EKG with evidence of demand ischemia 4. HTN/HCVD, BP control not at goal 5. Anemia 6. Hypocalcemia improving 7. Hyperparathyroidism due to renal disease PLAN: 1. Continue Coreg 25 mg bid, Procardia XL 120 qd, Diovan 160 bid and hydralazine 100 tid, may add Imdur if further BP reduction needed 2. HD as per renal service, outpatient HD arrangement pending insurance coverage
--- NOTE | 2017-05-28 17:26 | PN ---
Progress Note, Physician History of Present Illness: no complaints - Current Medication List Current Medications: Active Medications Calcitriol (Rocaltrol -) 0.5 mcg PO DAILY [facility] Last Admin: 05/28/17 11:41 Dose: Not Given Calcium Acetate (Phoslo -) 667 mg PO TIDCM [facility] Last Admin: 05/28/17 11:44 Dose: 667 mg Calcium Carbonate/Cholecalciferol (Os-Justin 500+D -) 2 tab PO DAILY [facility] Last Admin: 05/28/17 11:41 Dose: Not Given Carvedilol (Coreg -) 25 mg PO BID [facility] Last Admin: 05/28/17 11:40 Dose: Not Given Ferrous Sulfate (Feosol -) 325 mg PO BIDWM [facility] Last Admin: 05/28/17 08:46 Dose: 325 mg Hydralazine HCl (Apresoline -) 100 mg PO TID [facility] Last Admin: 05/28/17 16:20 Dose: 100 mg Nifedipine (Procardia Xl -) 120 mg PO DAILY [facility] Last Admin: 05/28/17 11:41 Dose: Not Given Valsartan (Diovan -) 160 mg PO BID [facility] Last Admin: 05/28/17 11:41 Dose: Not Given - Objective Vital Signs: Vital Signs Temperature 98.4 F 05/28/17 15:21 Pulse Rate 79 05/28/17 15:21 Respiratory Rate 16 05/28/17 15:21 Blood Pressure 128/74 05/28/17 15:21 O2 Sat by Pulse Oximetry (%) 100 05/28/17 10:00 Constitutional: Yes: No Distress HENT: Yes: Atraumatic Neck: Yes: Supple Cardiovascular: Yes: Regular Rate and Rhythm Respiratory: Yes: CTA Bilaterally Gastrointestinal: Yes: Normal Bowel Sounds Extremities: Yes: WNL Neurological: Yes: Alert, Oriented Labs: CBC, BMP 05/27/17 08:35 05/27/17 16:30 INR, PTT INR 1.07 (0.82-1.09) 03/24/17 20:30 Problem List - Problems (1) Acute on chronic kidney failure Assessment/Plan: ON HD renal on board Code(s): N17.9 - ACUTE KIDNEY FAILURE, UNSPECIFIED N18.9 - CHRONIC KIDNEY DISEASE, UNSPECIFIED (2) ESRD (end stage renal disease) Assessment/Plan: on hd Code(s): N18.6 - END STAGE RENAL DISEASE (3) Hypertension Assessment/Plan: ON MEDS STABLE Code(s): I10 - ESSENTIAL (PRIMARY) HYPERTENSION Qualifiers: Hypertension type: essential hypertension Qualified Code(s): I10 - Essential (primary) hypertension Assessment/Plan dc planning please
--- NOTE | 2017-05-28 21:28 | PN ---
Progress Note, Physician History of Present Illness: Pt seen and examined at bedside. He is awake and alert. - Current Medication List Current Medications: Active Medications Calcitriol (Rocaltrol -) 0.5 mcg PO DAILY [facility] Last Admin: 05/28/17 11:41 Dose: Not Given Calcium Acetate (Phoslo -) 667 mg PO TIDCM [facility] Last Admin: 05/28/17 17:57 Dose: 667 mg Calcium Carbonate/Cholecalciferol (Os-Justin 500+D -) 2 tab PO DAILY [facility] Last Admin: 05/28/17 11:41 Dose: Not Given Carvedilol (Coreg -) 25 mg PO BID [facility] Last Admin: 05/28/17 11:40 Dose: Not Given Ferrous Sulfate (Feosol -) 325 mg PO BIDWM [facility] Last Admin: 05/28/17 17:58 Dose: 325 mg Hydralazine HCl (Apresoline -) 100 mg PO TID [facility] Last Admin: 05/28/17 16:20 Dose: 100 mg Nifedipine (Procardia Xl -) 120 mg PO DAILY [facility] Last Admin: 05/28/17 11:41 Dose: Not Given Valsartan (Diovan -) 160 mg PO BID [facility] Last Admin: 05/28/17 11:41 Dose: Not Given - Objective Vital Signs: Vital Signs Temperature 98.4 F 05/28/17 15:21 Pulse Rate 79 05/28/17 15:21 Respiratory Rate 16 05/28/17 15:21 Blood Pressure 128/74 05/28/17 15:21 O2 Sat by Pulse Oximetry (%) 100 05/28/17 10:00 Constitutional: Yes: Calm Eyes: Yes: Conjunctiva Clear HENT: Yes: Atraumatic Cardiovascular: Yes: S1, S2 Respiratory: Yes: CTA Bilaterally Gastrointestinal: Yes: WNL Genitourinary: Yes: WNL Musculoskeletal: Yes: WNL Edema: No Neurological: Yes: Oriented Psychiatric: Yes: Oriented Labs: CBC, BMP 05/27/17 08:35 05/27/17 16:30 INR, PTT INR 1.07 (0.82-1.09) 03/24/17 20:30 Problem List - Problems (1) ESRD (end stage renal disease) Code(s): N18.6 - END STAGE RENAL DISEASE (2) Hypertension Code(s): I10 - ESSENTIAL (PRIMARY) HYPERTENSION Qualifiers: Hypertension type: essential hypertension Qualified Code(s): I10 - Essential (primary) hypertension (3) Hyperparathyroidism due to renal insufficiency Code(s): N25.81 - SECONDARY HYPERPARATHYROIDISM OF RENAL ORIGIN Assessment/Plan Current Medications Generic Name Dose Route Start Last Admin Trade Name Freq PRN Reason Stop Dose Admin Calcitriol 0.5 mcg 04/06/17 11:42 05/28/17 11:41 Rocaltrol - PO Not Given DAILY [facility] Calcium Acetate 667 mg 03/25/17 17:30 05/28/17 17:57 Phoslo - PO 667 mg TIDCM [facility] Administration Calcium Carbonate/Cholecalciferol 2 tab 03/25/17 15:00 05/28/17 11:41 Os-Justin 500+D - PO Not Given DAILY [facility] Carvedilol 25 mg 03/25/17 10:00 05/28/17 11:40 Coreg - PO Not Given BID [facility] Ferrous Sulfate 325 mg 03/28/17 17:30 05/28/17 17:58 Feosol - PO 325 mg BIDWM [facility] Administration Hydralazine HCl 100 mg 05/06/17 05:31 05/28/17 16:20 Apresoline - PO 100 mg TID [facility] Administration Nifedipine 120 mg 05/21/17 13:06 05/28/17 11:41 Procardia Xl - PO Not Given DAILY [facility] Valsartan 160 mg 03/27/17 22:00 05/28/17 11:41 Diovan - PO Not Given BID [facility] Impression 1. ESRD 2. HTN 3. hypocalcemia improving 4. anemia 5. hyperparathyroidism due to renal disease Plan - HD in am - discharge planning - epogen for anemia - monitor blood pressure - no acute change in management - spoke to case management Dr Ramos
[2017-05-29 00:06] LABS: HEP B SURFACE AB Non Reactive (.)
[2017-05-29] MEDS: hydrALAZINE HCL 50 MG TABLET (FP) PO SCH ×3 (05:24→22:12)
[2017-05-29] MEDS: FERROUS SO4 325 MG TABLET (FP) PO SCH ×2 (08:21→17:30)
[2017-05-29] MEDS: CALCIUM ACETATE 667 MG CAPSULE (FP) PO SCH ×3 (08:21→17:30)
[2017-05-29] MEDS: CARVEDILOL 25 MG TABLET (FP) PO SCH ×2 (09:29→22:12)
[2017-05-29] MEDS: NIFEdipine E.R 60 MG TABLET (UD) PO SCH (09:29)
[2017-05-29] MEDS: VALSARTAN 160 MG TABLET (UD) PO SCH ×2 (09:29→22:12)
[2017-05-29] MEDS: CALCIUM 500MG/VIT-D 200 UNITS COMBO TABLET (FP) PO SCH (09:29)
[2017-05-29] MEDS: CALCITRIOL 0.25 MCG CAPSULE (FP) PO SCH (09:30)
--- NOTE | 2017-05-29 11:54 | PN ---
Progress Note, Physician History of Present Illness: No chest pain or dyspnea. - Current Medication List Current Medications: Active Medications Calcitriol (Rocaltrol -) 0.5 mcg PO DAILY [facility] Last Admin: 05/29/17 09:30 Dose: 0.5 mcg Calcium Acetate (Phoslo -) 667 mg PO TIDCM [facility] Last Admin: 05/29/17 08:21 Dose: 667 mg Calcium Carbonate/Cholecalciferol (Os-Justin 500+D -) 2 tab PO DAILY [facility] Last Admin: 05/29/17 09:29 Dose: 2 tab Carvedilol (Coreg -) 25 mg PO BID [facility] Last Admin: 05/29/17 09:29 Dose: 25 mg Epoetin Refugio (Epogen -) 4,000 units IVPUSH ONCE ONE Stop: 05/29/17 21:29 Ferrous Sulfate (Feosol -) 325 mg PO BIDWM [facility] Last Admin: 05/29/17 08:21 Dose: 325 mg Heparin Sodium (Porcine) (Heparin -) 1,000 unit IVPUSH ONCE ONE Stop: 05/29/17 21:29 Hydralazine HCl (Apresoline -) 100 mg PO TID [facility] Last Admin: 05/29/17 05:24 Dose: 100 mg Nifedipine (Procardia Xl -) 120 mg PO DAILY [facility] Last Admin: 05/29/17 09:29 Dose: 120 mg Valsartan (Diovan -) 160 mg PO BID [facility] Last Admin: 05/29/17 09:29 Dose: 160 mg - Objective Vital Signs: Vital Signs Temperature 98.6 F 05/29/17 08:34 Pulse Rate 74 05/29/17 08:34 Respiratory Rate 20 05/29/17 08:34 Blood Pressure 185/110 05/29/17 08:34 O2 Sat by Pulse Oximetry (%) 100 05/28/17 21:00 Constitutional: Yes: No Distress, Calm, Thin Neck: Yes: Supple Cardiovascular: Yes: Regular Rate and Rhythm Respiratory: Yes: Regular, CTA Bilaterally Gastrointestinal: Yes: Normal Bowel Sounds, Soft Edema: No Labs: CBC, BMP 05/27/17 08:35 05/27/17 16:30 INR, PTT INR 1.07 (0.82-1.09) 03/24/17 20:30 Problem List - Problems (1) Acute on chronic kidney failure Code(s): N17.9 - ACUTE KIDNEY FAILURE, UNSPECIFIED N18.9 - CHRONIC KIDNEY DISEASE, UNSPECIFIED (2) ESRD (end stage renal disease) Code(s): N18.6 - END STAGE RENAL DISEASE (3) Hypertensive cardiomyopathy Code(s): I11.9 - HYPERTENSIVE HEART DISEASE WITHOUT HEART FAILURE I42.9 - CARDIOMYOPATHY, UNSPECIFIED Qualifiers: Heart failure presence: without heart failure Qualified Code(s): I11.9 - Hypertensive heart disease without heart failure; I43 - Cardiomyopathy in diseases classified elsewhere (4) Diastolic dysfunction Code(s): I51.9 - HEART DISEASE, UNSPECIFIED (5) Hypocalcemia Code(s): E83.51 - HYPOCALCEMIA (6) Hyperparathyroidism due to renal insufficiency Code(s): N25.81 - SECONDARY HYPERPARATHYROIDISM OF RENAL ORIGIN Assessment/Plan 03/25/2017 Echo: Normal LV size and fxn, mod cLVH, mild LAE, mild TR, RVSP 30-40 mmHg, mild [place], Tr-mild [place] 1. ESRD->HD 2. LV diastolic dysfunction with class I-II NYHA classification LV failure, compensated 3. CAD angina pectoris abnormal EKG with evidence of demand ischemia 4. HTN/HCVD, BP control not at goal 5. Anemia 6. Hypocalcemia improving 7. Hyperparathyroidism due to renal disease PLAN: 1. Continue Coreg 25 mg bid, Procardia XL 120 qd, Diovan 160 bid and hydralazine 100 tid, may add Imdur if further BP reduction needed 2. HD as per renal service, outpatient HD arrangement pending insurance coverage
--- NOTE | 2017-05-29 14:17 | PN ---
Progress Note, Physician History of Present Illness: Pt seen and examined at bedside. He is awake and alert. He denies shortness of breath. - Current Medication List Current Medications: Active Medications Calcitriol (Rocaltrol -) 0.5 mcg PO DAILY [facility] Last Admin: 05/29/17 09:30 Dose: 0.5 mcg Calcium Acetate (Phoslo -) 667 mg PO TIDCM [facility] Last Admin: 05/29/17 12:40 Dose: Not Given Calcium Carbonate/Cholecalciferol (Os-Justin 500+D -) 2 tab PO DAILY [facility] Last Admin: 05/29/17 09:29 Dose: 2 tab Carvedilol (Coreg -) 25 mg PO BID [facility] Last Admin: 05/29/17 09:29 Dose: 25 mg Epoetin Refugio (Epogen -) 4,000 units IVPUSH ONCE ONE Stop: 05/29/17 21:29 Ferrous Sulfate (Feosol -) 325 mg PO BIDWM [facility] Last Admin: 05/29/17 08:21 Dose: 325 mg Heparin Sodium (Porcine) (Heparin -) 1,000 unit IVPUSH ONCE ONE Stop: 05/29/17 21:29 Hydralazine HCl (Apresoline -) 100 mg PO TID [facility] Last Admin: 05/29/17 05:24 Dose: 100 mg Nifedipine (Procardia Xl -) 120 mg PO DAILY [facility] Last Admin: 05/29/17 09:29 Dose: 120 mg Valsartan (Diovan -) 160 mg PO BID [facility] Last Admin: 05/29/17 09:29 Dose: 160 mg - Objective Vital Signs: Vital Signs Temperature 98.6 F 05/29/17 08:34 Pulse Rate 74 05/29/17 08:34 Respiratory Rate 20 05/29/17 08:34 Blood Pressure 185/110 05/29/17 08:34 O2 Sat by Pulse Oximetry (%) 100 05/28/17 21:00 Constitutional: Yes: Calm Eyes: Yes: Conjunctiva Clear HENT: Yes: Atraumatic Neck: Yes: Supple Cardiovascular: Yes: Regular Rate and Rhythm, S1, S2 Respiratory: Yes: CTA Bilaterally Gastrointestinal: Yes: Normal Bowel Sounds, Soft Genitourinary: Yes: WNL Musculoskeletal: Yes: WNL Edema: No Neurological: Yes: Oriented Psychiatric: Yes: Oriented Labs: CBC, BMP 05/27/17 08:35 05/27/17 16:30 INR, PTT INR 1.07 (0.82-1.09) 03/24/17 20:30 Problem List - Problems (1) ESRD (end stage renal disease) Code(s): N18.6 - END STAGE RENAL DISEASE (2) Hypertension Code(s): I10 - ESSENTIAL (PRIMARY) HYPERTENSION Qualifiers: Hypertension type: essential hypertension Qualified Code(s): I10 - Essential (primary) hypertension (3) Hyperparathyroidism due to renal insufficiency Code(s): N25.81 - SECONDARY HYPERPARATHYROIDISM OF RENAL ORIGIN Assessment/Plan Current Medications Generic Name Dose Route Start Last Admin Trade Name Murtazaq PRN Reason Stop Dose Admin Calcitriol 0.5 mcg 04/06/17 11:42 05/29/17 09:30 Rocaltrol - PO 0.5 mcg DAILY [facility] Administration Calcium Acetate 667 mg 03/25/17 17:30 05/29/17 12:40 Phoslo - PO Not Given TIDCM [facility] Calcium Carbonate/Cholecalciferol 2 tab 03/25/17 15:00 05/29/17 09:29 Os-Justin 500+D - PO 2 tab DAILY [facility] Administration Carvedilol 25 mg 03/25/17 10:00 05/29/17 09:29 Coreg - PO 25 mg BID [facility] Administration Epoetin Refugio 4,000 units 05/29/17 21:28 Epogen - IVPUSH 05/29/17 21:29 ONCE ONE Ferrous Sulfate 325 mg 03/28/17 17:30 05/29/17 08:21 Feosol - PO 325 mg BIDWM [facility] Administration Heparin Sodium (Porcine) 1,000 unit 05/29/17 21:28 Heparin - IVPUSH 05/29/17 21:29 ONCE ONE Hydralazine HCl 100 mg 05/06/17 05:31 05/29/17 05:24 Apresoline - PO 100 mg TID [facility] Administration Nifedipine 120 mg 05/21/17 13:06 05/29/17 09:29 Procardia Xl - PO 120 mg DAILY [facility] Administration Valsartan 160 mg 03/27/17 22:00 05/29/17 09:29 Diovan - PO 160 mg BID [facility] Administration Impression 1. ESRD 2. HTN 3. hypocalcemia improving 4. anemia 5. hyperparathyroidism due to renal disease Plan - HD today - discharge planning - epogen for anemia - monitor blood pressure Dr Ramos
[2017-05-29] MEDS ORDERED: HEPARIN NA (PORCINE) 5,000 UNITS/ML 1ML VIAL IVPUSH ONE (14:45)
[2017-05-29] MEDS ORDERED: EPOETIN ALFA 2,000 UNITS/1 ML VIAL IVPUSH ONE (15:00)
--- NOTE | 2017-05-29 17:46 | PN ---
Progress Note, Physician History of Present Illness: no complaints - Current Medication List Current Medications: Active Medications Calcitriol (Rocaltrol -) 0.5 mcg PO DAILY [facility] Last Admin: 05/29/17 09:30 Dose: 0.5 mcg Calcium Acetate (Phoslo -) 667 mg PO TIDCM [facility] Last Admin: 05/29/17 17:30 Dose: 667 mg Calcium Carbonate/Cholecalciferol (Os-Justin 500+D -) 2 tab PO DAILY [facility] Last Admin: 05/29/17 09:29 Dose: 2 tab Carvedilol (Coreg -) 25 mg PO BID [facility] Last Admin: 05/29/17 09:29 Dose: 25 mg Ferrous Sulfate (Feosol -) 325 mg PO BIDWM [facility] Last Admin: 05/29/17 17:30 Dose: 325 mg Hydralazine HCl (Apresoline -) 100 mg PO TID [facility] Last Admin: 05/29/17 17:19 Dose: Not Given Nifedipine (Procardia Xl -) 120 mg PO DAILY [facility] Last Admin: 05/29/17 09:29 Dose: 120 mg Valsartan (Diovan -) 160 mg PO BID [facility] Last Admin: 05/29/17 09:29 Dose: 160 mg - Objective Vital Signs: Vital Signs Temperature 98.6 F 05/29/17 17:36 Pulse Rate 79 05/29/17 17:36 Respiratory Rate 18 05/29/17 17:36 Blood Pressure 152/82 05/29/17 17:36 O2 Sat by Pulse Oximetry (%) 100 05/29/17 09:00 Constitutional: Yes: No Distress HENT: Yes: Atraumatic Neck: Yes: Supple Cardiovascular: Yes: Regular Rate and Rhythm Respiratory: Yes: CTA Bilaterally Gastrointestinal: Yes: Normal Bowel Sounds Extremities: Yes: WNL Neurological: Yes: Alert, Oriented Labs: CBC, BMP 05/27/17 08:35 05/27/17 16:30 INR, PTT INR 1.07 (0.82-1.09) 03/24/17 20:30 Problem List - Problems (1) Acute on chronic kidney failure Assessment/Plan: ON HD renal on board Code(s): N17.9 - ACUTE KIDNEY FAILURE, UNSPECIFIED N18.9 - CHRONIC KIDNEY DISEASE, UNSPECIFIED (2) ESRD (end stage renal disease) Assessment/Plan: on hd Code(s): N18.6 - END STAGE RENAL DISEASE (3) Hypertension Assessment/Plan: ON MEDS STABLE Code(s): I10 - ESSENTIAL (PRIMARY) HYPERTENSION Qualifiers: Hypertension type: essential hypertension Qualified Code(s): I10 - Essential (primary) hypertension (4) Hyperparathyroidism due to renal insufficiency Code(s): N25.81 - SECONDARY HYPERPARATHYROIDISM OF RENAL ORIGIN (5) Anemia Code(s): D64.9 - ANEMIA, UNSPECIFIED
[2017-05-30] MEDS: hydrALAZINE HCL 50 MG TABLET (FP) PO SCH ×3 (06:08→22:26)
[2017-05-30] MEDS: CALCIUM ACETATE 667 MG CAPSULE (FP) PO SCH ×3 (08:19→17:47)
[2017-05-30] MEDS: FERROUS SO4 325 MG TABLET (FP) PO SCH ×2 (08:19→17:47)
[2017-05-30] MEDS ORDERED: PT OWN MED DRAWER 7, Y5N ONE (09:32)
[2017-05-30] MEDS: VALSARTAN 160 MG TABLET (UD) PO SCH ×2 (09:34→22:26)
[2017-05-30] MEDS: CARVEDILOL 25 MG TABLET (FP) PO SCH ×2 (09:34→22:26)
[2017-05-30] MEDS: CALCITRIOL 0.25 MCG CAPSULE (FP) PO SCH (09:34)
[2017-05-30] MEDS: CALCIUM 500MG/VIT-D 200 UNITS COMBO TABLET (FP) PO SCH (09:34)
[2017-05-30] MEDS: NIFEdipine E.R 60 MG TABLET (UD) PO SCH (09:36)
--- NOTE | 2017-05-30 11:42 | PN ---
Progress Note, Physician History of Present Illness: No chest pain or dyspnea. BP elevated. - Current Medication List Current Medications: Active Medications Calcitriol (Rocaltrol -) 0.5 mcg PO DAILY [facility] Last Admin: 05/30/17 09:34 Dose: 0.5 mcg Calcium Acetate (Phoslo -) 667 mg PO TIDCM [facility] Last Admin: 05/30/17 08:19 Dose: 667 mg Calcium Carbonate/Cholecalciferol (Os-Justin 500+D -) 2 tab PO DAILY [facility] Last Admin: 05/30/17 09:34 Dose: 2 tab Carvedilol (Coreg -) 25 mg PO BID [facility] Last Admin: 05/30/17 09:34 Dose: 25 mg Ferrous Sulfate (Feosol -) 325 mg PO BIDWM [facility] Last Admin: 05/30/17 08:19 Dose: 325 mg Hydralazine HCl (Apresoline -) 100 mg PO TID [facility] Last Admin: 05/30/17 06:08 Dose: 100 mg Nifedipine (Procardia Xl -) 120 mg PO DAILY [facility] Last Admin: 05/30/17 09:36 Dose: 120 mg Valsartan (Diovan -) 160 mg PO BID [facility] Last Admin: 05/30/17 09:34 Dose: 160 mg - Objective Vital Signs: Vital Signs Temperature 99 F 05/29/17 22:00 Pulse Rate 84 05/29/17 22:00 Respiratory Rate 16 05/29/17 22:00 Blood Pressure 191/102 05/30/17 07:47 O2 Sat by Pulse Oximetry (%) 100 05/29/17 21:00 Constitutional: Yes: No Distress, Calm Neck: Yes: Supple Cardiovascular: Yes: Regular Rate and Rhythm Respiratory: Yes: Regular, CTA Bilaterally Gastrointestinal: Yes: Normal Bowel Sounds, Soft Edema: No Labs: CBC, BMP 05/27/17 08:35 05/27/17 16:30 INR, PTT INR 1.07 (0.82-1.09) 03/24/17 20:30 Problem List - Problems (1) Acute on chronic kidney failure Code(s): N17.9 - ACUTE KIDNEY FAILURE, UNSPECIFIED N18.9 - CHRONIC KIDNEY DISEASE, UNSPECIFIED (2) ESRD (end stage renal disease) Code(s): N18.6 - END STAGE RENAL DISEASE (3) Hypertensive cardiomyopathy Code(s): I11.9 - HYPERTENSIVE HEART DISEASE WITHOUT HEART FAILURE I42.9 - CARDIOMYOPATHY, UNSPECIFIED Qualifiers: Heart failure presence: without heart failure Qualified Code(s): I11.9 - Hypertensive heart disease without heart failure; I43 - Cardiomyopathy in diseases classified elsewhere (4) Diastolic dysfunction Code(s): I51.9 - HEART DISEASE, UNSPECIFIED (5) Hypocalcemia Code(s): E83.51 - HYPOCALCEMIA (6) Hyperparathyroidism due to renal insufficiency Code(s): N25.81 - SECONDARY HYPERPARATHYROIDISM OF RENAL ORIGIN Assessment/Plan 03/25/2017 Echo: Normal LV size and fxn, mod cLVH, mild LAE, mild TR, RVSP 30-40 mmHg, mild AR, Tr-mild MT 1. ESRD->HD 2. LV diastolic dysfunction with class I-II NYHA classification LV failure, compensated 3. CAD angina pectoris abnormal EKG with evidence of demand ischemia 4. HTN/HCVD, BP control not at goal 5. Anemia 6. Hypocalcemia improving 7. Hyperparathyroidism due to renal disease PLAN: 1. Continue Coreg 25 mg bid, Procardia XL 120 qd, Diovan 160 bid and hydralazine 100 tid, add Imdur 30 qd with uptitration as further BP reduction is needed 2. HD as per renal service, outpatient HD arrangement pending insurance coverage
[2017-05-30] MEDS: ISOSORBIDE MONONITRATE 30 MG TAB.SR.24H (FP) PO SCH (11:59)
--- NOTE | 2017-05-30 15:08 | PN ---
Progress Note, Physician History of Present Illness: Pt seen and examined at bedside. He has no complaints. - Current Medication List Current Medications: Active Medications Calcitriol (Rocaltrol -) 0.5 mcg PO DAILY [facility] Last Admin: 05/30/17 09:34 Dose: 0.5 mcg Calcium Acetate (Phoslo -) 667 mg PO TIDCM [facility] Last Admin: 05/30/17 12:35 Dose: 667 mg Calcium Carbonate/Cholecalciferol (Os-Justin 500+D -) 2 tab PO DAILY [facility] Last Admin: 05/30/17 09:34 Dose: 2 tab Carvedilol (Coreg -) 25 mg PO BID [facility] Last Admin: 05/30/17 09:34 Dose: 25 mg Ferrous Sulfate (Feosol -) 325 mg PO BIDWM [facility] Last Admin: 05/30/17 08:19 Dose: 325 mg Hydralazine HCl (Apresoline -) 100 mg PO TID [facility] Last Admin: 05/30/17 14:23 Dose: 100 mg Isosorbide Mononitrate (Imdur -) 30 mg PO DAILY [facility] Last Admin: 05/30/17 11:59 Dose: 30 mg Nifedipine (Procardia Xl -) 120 mg PO DAILY [facility] Last Admin: 05/30/17 09:36 Dose: 120 mg Valsartan (Diovan -) 160 mg PO BID [facility] Last Admin: 05/30/17 09:34 Dose: 160 mg - Objective Vital Signs: Vital Signs Temperature 98.6 F 05/30/17 08:40 Pulse Rate 82 05/30/17 11:40 Respiratory Rate 18 05/30/17 08:40 Blood Pressure 132/72 05/30/17 11:40 O2 Sat by Pulse Oximetry (%) 100 05/29/17 21:00 Constitutional: Yes: Calm Eyes: Yes: Conjunctiva Clear HENT: Yes: Atraumatic Cardiovascular: Yes: S1, S2 Respiratory: Yes: CTA Bilaterally Gastrointestinal: Yes: Soft Genitourinary: Yes: WNL Musculoskeletal: Yes: WNL Edema: No Neurological: Yes: Oriented Psychiatric: Yes: Oriented Labs: CBC, BMP 05/27/17 08:35 05/27/17 16:30 INR, PTT INR 1.07 (0.82-1.09) 03/24/17 20:30 Problem List - Problems (1) ESRD (end stage renal disease) Code(s): N18.6 - END STAGE RENAL DISEASE (2) Hypertension Code(s): I10 - ESSENTIAL (PRIMARY) HYPERTENSION Qualifiers: Hypertension type: essential hypertension Qualified Code(s): I10 - Essential (primary) hypertension (3) Hyperparathyroidism due to renal insufficiency Code(s): N25.81 - SECONDARY HYPERPARATHYROIDISM OF RENAL ORIGIN Assessment/Plan Current Medications Generic Name Dose Route Start Last Admin Trade Name Freq PRN Reason Stop Dose Admin Calcitriol 0.5 mcg 04/06/17 11:42 05/30/17 09:34 Rocaltrol - PO 0.5 mcg DAILY [facility] Administration Calcium Acetate 667 mg 03/25/17 17:30 05/30/17 12:35 Phoslo - PO 667 mg TIDCM [facility] Administration Calcium Carbonate/Cholecalciferol 2 tab 03/25/17 15:00 05/30/17 09:34 Os-Justin 500+D - PO 2 tab DAILY [facility] Administration Carvedilol 25 mg 03/25/17 10:00 05/30/17 09:34 Coreg - PO 25 mg BID [facility] Administration Ferrous Sulfate 325 mg 03/28/17 17:30 05/30/17 08:19 Feosol - PO 325 mg BIDWM [facility] Administration Hydralazine HCl 100 mg 05/06/17 05:31 05/30/17 14:23 Apresoline - PO 100 mg TID [facility] Administration Isosorbide Mononitrate 30 mg 05/30/17 11:45 05/30/17 11:59 Imdur - PO 30 mg DAILY [facility] Administration Nifedipine 120 mg 05/21/17 13:06 05/30/17 09:36 Procardia Xl - PO 120 mg DAILY [facility] Administration Valsartan 160 mg 03/27/17 22:00 05/30/17 09:34 Diovan - PO 160 mg BID [facility] Administration Impression 1. ESRD 2. HTN 3. hypocalcemia improving 4. anemia 5. hyperparathyroidism due to renal disease Plan - HD in am - discharge planning - epogen for anemia - monitor blood pressure - HD set up for 06/05 for 2nd shift in [facility] Dr Ramos
--- NOTE | 2017-05-30 21:09 | PN ---
Progress Note, Physician History of Present Illness: no complaints - Current Medication List Current Medications: Active Medications Calcitriol (Rocaltrol -) 0.5 mcg PO DAILY [facility] Last Admin: 05/30/17 09:34 Dose: 0.5 mcg Calcium Acetate (Phoslo -) 667 mg PO TIDCM [facility] Last Admin: 05/30/17 17:47 Dose: 667 mg Calcium Carbonate/Cholecalciferol (Os-Justin 500+D -) 2 tab PO DAILY [facility] Last Admin: 05/30/17 09:34 Dose: 2 tab Carvedilol (Coreg -) 25 mg PO BID [facility] Last Admin: 05/30/17 09:34 Dose: 25 mg Epoetin Refugio (Epogen -) 4,000 units IVPUSH ONCE ONE Stop: 05/31/17 15:09 Ferrous Sulfate (Feosol -) 325 mg PO BIDWM [facility] Last Admin: 05/30/17 17:47 Dose: 325 mg Heparin Sodium (Porcine) (Heparin -) 1,000 unit IVPUSH ONCE ONE Stop: 05/31/17 15:09 Hydralazine HCl (Apresoline -) 100 mg PO TID [facility] Last Admin: 05/30/17 14:23 Dose: 100 mg Isosorbide Mononitrate (Imdur -) 30 mg PO DAILY [facility] Last Admin: 05/30/17 11:59 Dose: 30 mg Nifedipine (Procardia Xl -) 120 mg PO DAILY [facility] Last Admin: 05/30/17 09:36 Dose: 120 mg Valsartan (Diovan -) 160 mg PO BID [facility] Last Admin: 05/30/17 09:34 Dose: 160 mg - Objective Vital Signs: Vital Signs Temperature 98.6 F 05/30/17 08:40 Pulse Rate 82 05/30/17 11:40 Respiratory Rate 18 05/30/17 08:40 Blood Pressure 132/72 05/30/17 11:40 O2 Sat by Pulse Oximetry (%) 100 05/29/17 21:00 Constitutional: Yes: No Distress HENT: Yes: Atraumatic Neck: Yes: Supple Cardiovascular: Yes: Regular Rate and Rhythm Respiratory: Yes: CTA Bilaterally Gastrointestinal: Yes: Normal Bowel Sounds Extremities: Yes: WNL Neurological: Yes: Alert, Oriented Labs: CBC, BMP 05/27/17 08:35 05/27/17 16:30 INR, PTT INR 1.07 (0.82-1.09) 03/24/17 20:30 Problem List - Problems (1) Acute on chronic kidney failure Assessment/Plan: ON HD renal on board Code(s): N17.9 - ACUTE KIDNEY FAILURE, UNSPECIFIED N18.9 - CHRONIC KIDNEY DISEASE, UNSPECIFIED (2) ESRD (end stage renal disease) Assessment/Plan: on hd Code(s): N18.6 - END STAGE RENAL DISEASE (3) Hypertension Assessment/Plan: ON MEDS STABLE Code(s): I10 - ESSENTIAL (PRIMARY) HYPERTENSION Qualifiers: Hypertension type: essential hypertension Qualified Code(s): I10 - Essential (primary) hypertension (4) Hyperparathyroidism due to renal insufficiency Code(s): N25.81 - SECONDARY HYPERPARATHYROIDISM OF RENAL ORIGIN (5) Anemia Code(s): D64.9 - ANEMIA, UNSPECIFIED Assessment/Plan dc planning please
[2017-05-31] MEDS: hydrALAZINE HCL 50 MG TABLET (FP) PO SCH ×3 (06:11→21:55)
[2017-05-31] MEDS: CALCIUM ACETATE 667 MG CAPSULE (FP) PO SCH ×3 (08:15→18:13)
[2017-05-31] MEDS: FERROUS SO4 325 MG TABLET (FP) PO SCH ×2 (08:15→18:13)
[2017-05-31] MEDS ORDERED: HEPARIN NA (PORCINE) 5,000 UNITS/ML 1ML VIAL IVPUSH ONE (09:00)
[2017-05-31] MEDS ORDERED: EPOETIN ALFA 2,000 UNITS/1 ML VIAL IVPUSH ONE (09:00)
[2017-05-31] MEDS: CALCITRIOL 0.25 MCG CAPSULE (FP) PO SCH (12:35)
[2017-05-31] MEDS: NIFEdipine E.R 60 MG TABLET (UD) PO SCH (12:35)
[2017-05-31] MEDS: CALCIUM 500MG/VIT-D 200 UNITS COMBO TABLET (FP) PO SCH (12:35)
[2017-05-31] MEDS: VALSARTAN 160 MG TABLET (UD) PO SCH ×2 (12:36→21:56)
[2017-05-31] MEDS: ISOSORBIDE MONONITRATE 30 MG TAB.SR.24H (FP) PO SCH (12:36)
[2017-05-31] MEDS: CARVEDILOL 25 MG TABLET (FP) PO SCH ×2 (12:36→21:56)
--- NOTE | 2017-05-31 13:05 | PN ---
Progress Note (short form) - Note Progress Note: Chief Complaint: Events noted, notes reviewed, seen post HD session, denies any chest pain or dyspnea History of Present Illness: Seen and examined. Events noted, notes reviewed, seen post HD session, denies any chest pain or dyspnea Echocardiography dated 03/25/2017 revealed normal LV size and function, moderate cLVH, mild LAE, mild AR and TR, RVSP 30-40 mmHg Medications: Current Medications Calcitriol (Rocaltrol -) 0.5 mcg PO DAILY [facility] Last Admin: 05/31/17 12:35 Dose: 0.5 mcg Calcium Acetate (Phoslo -) 667 mg PO TIDCM [facility] Last Admin: 05/31/17 12:34 Dose: 667 mg Calcium Carbonate/Cholecalciferol (Os-Justin 500+D -) 2 tab PO DAILY [facility] Last Admin: 05/31/17 12:35 Dose: 2 tab Carvedilol (Coreg -) 25 mg PO BID [facility] Last Admin: 05/31/17 12:36 Dose: 25 mg Ferrous Sulfate (Feosol -) 325 mg PO BIDWM [facility] Last Admin: 05/31/17 08:15 Dose: Not Given Hydralazine HCl (Apresoline -) 100 mg PO TID [facility] Last Admin: 05/31/17 06:11 Dose: 100 mg Isosorbide Mononitrate (Imdur -) 30 mg PO DAILY [facility] Last Admin: 05/31/17 12:36 Dose: 30 mg Nifedipine (Procardia Xl -) 120 mg PO DAILY [facility] Last Admin: 05/31/17 12:35 Dose: 120 mg Valsartan (Diovan -) 160 mg PO BID [facility] Last Admin: 05/31/17 12:36 Dose: 160 mg Vital Signs: Last Vital Signs Temp Pulse Resp BP Pulse Ox 98.4 F 82 18 183/125 100 05/31/17 07:40 05/31/17 12:37 05/31/17 12:37 05/31/17 12:37 05/30/17 21:00 Constitutional: No Distress, Calm Neck: Supple Negative JVD Respiratory: Clear to A&P Bilaterally Cardiovascular: S1 S2 Regular Rate and Rhythm Gastrointestinal: Soft Benign Normal Bowel Sounds Ext: Negative Edema Lab Data: CBC, BMP 05/27/17 08:35 05/27/17 16:30 Assessment/Plan ASSESSMENT: 1. Acute renal failure on HD 2. Diastolic LV dysfunction with class I-II NYHA classification LV failure, compensated 3. CAD angina pectoris abnormal EKG with evidence of demand ischemia 4. HTN, not at goal 5. Anemia PLAN: 1. Continue Coreg 2. Continue Procardia XL 3. Continue Diovan 4. Continue Hydralazine 5. If blood pressure remains elevated consider the addition of ACEI or Alpha B- Blockers 6. HD as per renal service Isabelle Murcia MD
--- NOTE | 2017-05-31 16:28 | PN ---
Progress Note, Physician History of Present Illness: Pt seen and examined at bedside. He has no complaints. - Current Medication List Current Medications: Active Medications Calcitriol (Rocaltrol -) 0.5 mcg PO DAILY [facility] Last Admin: 05/31/17 12:35 Dose: 0.5 mcg Calcium Acetate (Phoslo -) 667 mg PO TIDCM [facility] Last Admin: 05/31/17 12:34 Dose: 667 mg Calcium Carbonate/Cholecalciferol (Os-Justin 500+D -) 2 tab PO DAILY [facility] Last Admin: 05/31/17 12:35 Dose: 2 tab Carvedilol (Coreg -) 25 mg PO BID [facility] Last Admin: 05/31/17 12:36 Dose: 25 mg Ferrous Sulfate (Feosol -) 325 mg PO BIDWM [facility] Last Admin: 05/31/17 08:15 Dose: Not Given Hydralazine HCl (Apresoline -) 100 mg PO TID [facility] Last Admin: 05/31/17 15:09 Dose: 100 mg Isosorbide Mononitrate (Imdur -) 30 mg PO DAILY [facility] Last Admin: 05/31/17 12:36 Dose: 30 mg Nifedipine (Procardia Xl -) 120 mg PO DAILY [facility] Last Admin: 05/31/17 12:35 Dose: 120 mg Valsartan (Diovan -) 160 mg PO BID [facility] Last Admin: 05/31/17 12:36 Dose: 160 mg - Objective Vital Signs: Vital Signs Temperature 99.0 F 05/31/17 13:51 Pulse Rate 88 05/31/17 13:51 Respiratory Rate 18 05/31/17 13:51 Blood Pressure 133/76 05/31/17 13:51 O2 Sat by Pulse Oximetry (%) 100 05/31/17 10:00 Constitutional: Yes: Calm Eyes: Yes: Conjunctiva Clear HENT: Yes: Atraumatic Neck: Yes: Supple Cardiovascular: Yes: S1, S2 Respiratory: Yes: CTA Bilaterally Gastrointestinal: Yes: Soft Genitourinary: Yes: WNL Musculoskeletal: Yes: WNL Edema: No Neurological: Yes: Oriented Psychiatric: Yes: Oriented Labs: CBC, BMP 05/27/17 08:35 05/27/17 16:30 INR, PTT INR 1.07 (0.82-1.09) 03/24/17 20:30 Problem List - Problems (1) ESRD (end stage renal disease) Code(s): N18.6 - END STAGE RENAL DISEASE (2) Hypertension Code(s): I10 - ESSENTIAL (PRIMARY) HYPERTENSION Qualifiers: Hypertension type: essential hypertension Qualified Code(s): I10 - Essential (primary) hypertension (3) Hyperparathyroidism due to renal insufficiency Code(s): N25.81 - SECONDARY HYPERPARATHYROIDISM OF RENAL ORIGIN Assessment/Plan Current Medications Generic Name Dose Route Start Last Admin Trade Name Jenelle PRN Reason Stop Dose Admin Calcitriol 0.5 mcg 04/06/17 11:42 05/31/17 12:35 Rocaltrol - PO 0.5 mcg DAILY [facility] Administration Calcium Acetate 667 mg 03/25/17 17:30 05/31/17 12:34 Phoslo - PO 667 mg TIDCM [facility] Administration Calcium Carbonate/Cholecalciferol 2 tab 03/25/17 15:00 05/31/17 12:35 Os-Justin 500+D - PO 2 tab DAILY [facility] Administration Carvedilol 25 mg 03/25/17 10:00 05/31/17 12:36 Coreg - PO 25 mg BID [facility] Administration Ferrous Sulfate 325 mg 03/28/17 17:30 05/31/17 08:15 Feosol - PO Not Given BIDWM [facility] Hydralazine HCl 100 mg 05/06/17 05:31 05/31/17 15:09 Apresoline - PO 100 mg TID [facility] Administration Isosorbide Mononitrate 30 mg 05/30/17 11:45 05/31/17 12:36 Imdur - PO 30 mg DAILY [facility] Administration Nifedipine 120 mg 05/21/17 13:06 05/31/17 12:35 Procardia Xl - PO 120 mg DAILY [facility] Administration Valsartan 160 mg 03/27/17 22:00 05/31/17 12:36 Diovan - PO 160 mg BID [facility] Administration Impression 1. ESRD 2. HTN 3. hypocalcemia improving 4. anemia 5. hyperparathyroidism due to renal disease Plan - pt tolerated HD today - discharge planning - epogen for anemia - monitor blood pressure - HD set up for 06/05 for 2nd shift in [facility] Dr Ramos
--- NOTE | 2017-05-31 20:18 | PN ---
Progress Note, Physician History of Present Illness: no complaints - Current Medication List Current Medications: Active Medications Calcitriol (Rocaltrol -) 0.5 mcg PO DAILY [facility] Last Admin: 05/31/17 12:35 Dose: 0.5 mcg Calcium Acetate (Phoslo -) 667 mg PO TIDCM [facility] Last Admin: 05/31/17 18:13 Dose: 667 mg Calcium Carbonate/Cholecalciferol (Os-Justin 500+D -) 2 tab PO DAILY [facility] Last Admin: 05/31/17 12:35 Dose: 2 tab Carvedilol (Coreg -) 25 mg PO BID [facility] Last Admin: 05/31/17 12:36 Dose: 25 mg Epoetin Refugio (Epogen -) 4,000 units IVPUSH ONCE ONE Stop: 06/03/17 16:31 Ferrous Sulfate (Feosol -) 325 mg PO BIDWM [facility] Last Admin: 05/31/17 18:13 Dose: 325 mg Heparin Sodium (Porcine) (Heparin -) 1,000 unit IVPUSH ONCE ONE Stop: 06/03/17 16:31 Hydralazine HCl (Apresoline -) 100 mg PO TID [facility] Last Admin: 05/31/17 15:09 Dose: 100 mg Isosorbide Mononitrate (Imdur -) 30 mg PO DAILY [facility] Last Admin: 05/31/17 12:36 Dose: 30 mg Nifedipine (Procardia Xl -) 120 mg PO DAILY [facility] Last Admin: 05/31/17 12:35 Dose: 120 mg Valsartan (Diovan -) 160 mg PO BID [facility] Last Admin: 05/31/17 12:36 Dose: 160 mg - Objective Vital Signs: Vital Signs Temperature 99.4 F 05/31/17 16:15 Pulse Rate 79 05/31/17 16:15 Respiratory Rate 18 05/31/17 16:15 Blood Pressure 131/72 05/31/17 16:15 O2 Sat by Pulse Oximetry (%) 100 05/31/17 10:00 Constitutional: Yes: No Distress HENT: Yes: Atraumatic Neck: Yes: Supple Cardiovascular: Yes: Regular Rate and Rhythm Respiratory: Yes: CTA Bilaterally Gastrointestinal: Yes: Normal Bowel Sounds Extremities: Yes: WNL Neurological: Yes: Alert, Oriented Labs: CBC, BMP 05/27/17 08:35 05/27/17 16:30 INR, PTT INR 1.07 (0.82-1.09) 03/24/17 20:30 Problem List - Problems (1) Acute on chronic kidney failure Assessment/Plan: ON HD renal on board Code(s): N17.9 - ACUTE KIDNEY FAILURE, UNSPECIFIED N18.9 - CHRONIC KIDNEY DISEASE, UNSPECIFIED (2) ESRD (end stage renal disease) Assessment/Plan: on hd Code(s): N18.6 - END STAGE RENAL DISEASE (3) Hypertension Assessment/Plan: ON MEDS STABLE Code(s): I10 - ESSENTIAL (PRIMARY) HYPERTENSION Qualifiers: Hypertension type: essential hypertension Qualified Code(s): I10 - Essential (primary) hypertension (4) Hyperparathyroidism due to renal insufficiency Code(s): N25.81 - SECONDARY HYPERPARATHYROIDISM OF RENAL ORIGIN (5) Anemia Assessment/Plan: on fe and epogen Code(s): D64.9 - ANEMIA, UNSPECIFIED Assessment/Plan dc planning please
[2017-06-01] MEDS: hydrALAZINE HCL 50 MG TABLET (FP) PO SCH ×3 (06:12→21:44)
[2017-06-01] MEDS: ISOSORBIDE MONONITRATE 30 MG TAB.SR.24H (FP) PO SCH ×2 (06:25→11:59)
[2017-06-01] MEDS: CALCITRIOL 0.25 MCG CAPSULE (FP) PO SCH ×2 (08:44→12:00)
[2017-06-01] MEDS: CALCIUM ACETATE 667 MG CAPSULE (FP) PO SCH ×3 (08:44→17:19)
[2017-06-01] MEDS: VALSARTAN 160 MG TABLET (UD) PO SCH ×3 (08:45→21:44)
[2017-06-01] MEDS: NIFEdipine E.R 60 MG TABLET (UD) PO SCH ×2 (08:45→12:00)
[2017-06-01] MEDS: CARVEDILOL 25 MG TABLET (FP) PO SCH ×3 (08:45→21:44)
[2017-06-01] MEDS: FERROUS SO4 325 MG TABLET (FP) PO SCH ×2 (08:46→17:19)
[2017-06-01] MEDS: CALCIUM 500MG/VIT-D 200 UNITS COMBO TABLET (FP) PO SCH ×2 (08:46→11:59)
--- NOTE | 2017-06-01 11:49 | PN ---
Progress Note (short form) - Note Progress Note: Chief Complaint: Events noted, notes reviewed, resting in bed, denies any chest pain or dyspnea History of Present Illness: Seen and examined. Events noted, notes reviewed, resting in bed, denies any chest pain or dyspnea Echocardiography dated 03/25/2017 revealed normal LV size and function, moderate cLVH, mild LAE, mild AR and TR, RVSP 30-40 mmHg Medications: Current Medications Calcitriol (Rocaltrol -) 0.5 mcg PO DAILY [facility] Last Admin: 06/01/17 08:44 Dose: 0.5 mcg Calcium Acetate (Phoslo -) 667 mg PO TIDCM [facility] Last Admin: 06/01/17 08:44 Dose: 667 mg Calcium Carbonate/Cholecalciferol (Os-Justin 500+D -) 2 tab PO DAILY [facility] Last Admin: 06/01/17 08:46 Dose: 2 tab Carvedilol (Coreg -) 25 mg PO BID [facility] Last Admin: 06/01/17 08:45 Dose: 25 mg Epoetin Refugio (Epogen -) 4,000 units IVPUSH ONCE ONE Stop: 06/03/17 16:31 Ferrous Sulfate (Feosol -) 325 mg PO BIDWM [facility] Last Admin: 06/01/17 08:46 Dose: 325 mg Heparin Sodium (Porcine) (Heparin -) 1,000 unit IVPUSH ONCE ONE Stop: 06/03/17 16:31 Hydralazine HCl (Apresoline -) 100 mg PO TID [facility] Last Admin: 06/01/17 06:12 Dose: 100 mg Isosorbide Mononitrate (Imdur -) 30 mg PO DAILY [facility] Last Admin: 06/01/17 06:25 Dose: 30 mg Nifedipine (Procardia Xl -) 120 mg PO DAILY [facility] Last Admin: 06/01/17 08:45 Dose: 120 mg Valsartan (Diovan -) 160 mg PO BID [facility] Last Admin: 06/01/17 08:45 Dose: 160 mg Vital Signs: Last Vital Signs Temp Pulse Resp BP Pulse Ox 98.7 F 84 18 144/86 100 06/01/17 08:43 06/01/17 11:44 06/01/17 11:44 06/01/17 11:44 05/31/17 21:00 Constitutional: No Distress, Calm Neck: Supple Negative JVD Respiratory: Clear to A&P Bilaterally Cardiovascular: S1 S2 Regular Rate and Rhythm Gastrointestinal: Soft Benign Normal Bowel Sounds Ext: Negative Edema Lab Data: CBC, BMP 05/27/17 08:35 05/27/17 16:30 Assessment/Plan ASSESSMENT: 1. Acute renal failure on HD 2. Diastolic LV dysfunction with class I-II NYHA classification LV failure, compensated 3. CAD angina pectoris abnormal EKG with evidence of demand ischemia 4. HTN 5. Anemia PLAN: 1. Continue Coreg 2. Continue Procardia XL 3. Continue Diovan 4. Continue Hydralazine 5. As outlined in prior notes if blood pressure remains elevated consider the addition of ACEI or Alpha B-Blockers 6. HD as per renal service Isabelle Murcia MD
--- NOTE | 2017-06-01 16:12 | PN ---
Progress Note, Physician History of Present Illness: Pt has no complaints. - Current Medication List Current Medications: Active Medications Calcitriol (Rocaltrol -) 0.5 mcg PO DAILY [facility] Last Admin: 06/01/17 12:00 Dose: Not Given Calcium Acetate (Phoslo -) 667 mg PO TIDCM [facility] Last Admin: 06/01/17 13:05 Dose: 667 mg Calcium Carbonate/Cholecalciferol (Os-Justin 500+D -) 2 tab PO DAILY [facility] Last Admin: 06/01/17 11:59 Dose: Not Given Carvedilol (Coreg -) 25 mg PO BID [facility] Last Admin: 06/01/17 11:59 Dose: Not Given Epoetin Refugio (Epogen -) 4,000 units IVPUSH ONCE ONE Stop: 06/03/17 16:31 Ferrous Sulfate (Feosol -) 325 mg PO BIDWM [facility] Last Admin: 06/01/17 08:46 Dose: 325 mg Heparin Sodium (Porcine) (Heparin -) 1,000 unit IVPUSH ONCE ONE Stop: 06/03/17 16:31 Hydralazine HCl (Apresoline -) 100 mg PO TID [facility] Last Admin: 06/01/17 13:06 Dose: 100 mg Isosorbide Mononitrate (Imdur -) 30 mg PO DAILY [facility] Last Admin: 06/01/17 11:59 Dose: Not Given Nifedipine (Procardia Xl -) 120 mg PO DAILY [facility] Last Admin: 06/01/17 12:00 Dose: Not Given Valsartan (Diovan -) 160 mg PO BID [facility] Last Admin: 06/01/17 11:59 Dose: Not Given - Objective Vital Signs: Vital Signs Temperature 98.7 F 06/01/17 08:43 Pulse Rate 84 06/01/17 11:44 Respiratory Rate 18 06/01/17 11:44 Blood Pressure 144/86 06/01/17 11:44 O2 Sat by Pulse Oximetry (%) 100 05/31/17 21:00 Constitutional: Yes: Calm Eyes: Yes: Conjunctiva Clear HENT: Yes: Atraumatic Neck: Yes: Supple Cardiovascular: Yes: Regular Rate and Rhythm Genitourinary: Yes: WNL Musculoskeletal: Yes: WNL Edema: No Neurological: Yes: Oriented Psychiatric: Yes: Oriented Labs: CBC, BMP 05/27/17 08:35 05/27/17 16:30 INR, PTT INR 1.07 (0.82-1.09) 03/24/17 20:30 Problem List - Problems (1) ESRD (end stage renal disease) Code(s): N18.6 - END STAGE RENAL DISEASE (2) Hypertension Code(s): I10 - ESSENTIAL (PRIMARY) HYPERTENSION Qualifiers: Hypertension type: essential hypertension Qualified Code(s): I10 - Essential (primary) hypertension (3) Hyperparathyroidism due to renal insufficiency Code(s): N25.81 - SECONDARY HYPERPARATHYROIDISM OF RENAL ORIGIN Assessment/Plan Current Medications Generic Name Dose Route Start Last Admin Trade Name Freq PRN Reason Stop Dose Admin Calcitriol 0.5 mcg 04/06/17 11:42 06/01/17 12:00 Rocaltrol - PO Not Given DAILY [facility] Calcium Acetate 667 mg 03/25/17 17:30 06/01/17 13:05 Phoslo - PO 667 mg TIDCM [facility] Administration Calcium Carbonate/Cholecalciferol 2 tab 03/25/17 15:00 06/01/17 11:59 Os-Justin 500+D - PO Not Given DAILY [facility] Carvedilol 25 mg 03/25/17 10:00 06/01/17 11:59 Coreg - PO Not Given BID [facility] Epoetin Refugio 4,000 units 06/03/17 16:30 Epogen - IVPUSH 06/03/17 16:31 ONCE ONE Ferrous Sulfate 325 mg 03/28/17 17:30 06/01/17 08:46 Feosol - PO 325 mg BIDWM [facility] Administration Heparin Sodium (Porcine) 1,000 unit 06/03/17 16:30 Heparin - IVPUSH 06/03/17 16:31 ONCE ONE Hydralazine HCl 100 mg 05/06/17 05:31 06/01/17 13:06 Apresoline - PO 100 mg TID [facility] Administration Isosorbide Mononitrate 30 mg 05/30/17 11:45 06/01/17 11:59 Imdur - PO Not Given DAILY [facility] Nifedipine 120 mg 05/21/17 13:06 06/01/17 12:00 Procardia Xl - PO Not Given DAILY [facility] Valsartan 160 mg 03/27/17 22:00 06/01/17 11:59 Diovan - PO Not Given BID [facility] Impression 1. ESRD 2. HTN 3. hypocalcemia improving 4. anemia 5. hyperparathyroidism due to renal disease Plan - HD on Friday - discharge planning - epogen for anemia - monitor blood pressure - HD set up for 06/05 for 2nd shift in [facility]
--- NOTE | 2017-06-01 22:18 | PN ---
Progress Note, Physician History of Present Illness: no complaints - Current Medication List Current Medications: Active Medications Calcitriol (Rocaltrol -) 0.5 mcg PO DAILY [facility] Last Admin: 06/01/17 12:00 Dose: Not Given Calcium Acetate (Phoslo -) 667 mg PO TIDCM [facility] Last Admin: 06/01/17 17:19 Dose: 667 mg Calcium Carbonate/Cholecalciferol (Os-Justin 500+D -) 2 tab PO DAILY [facility] Last Admin: 06/01/17 11:59 Dose: Not Given Carvedilol (Coreg -) 25 mg PO BID [facility] Last Admin: 06/01/17 21:44 Dose: 25 mg Epoetin Refugio (Epogen -) 4,000 units IVPUSH ONCE ONE Stop: 06/03/17 16:31 Ferrous Sulfate (Feosol -) 325 mg PO BIDWM [facility] Last Admin: 06/01/17 17:19 Dose: 325 mg Heparin Sodium (Porcine) (Heparin -) 1,000 unit IVPUSH ONCE ONE Stop: 06/03/17 16:31 Hydralazine HCl (Apresoline -) 100 mg PO TID [facility] Last Admin: 06/01/17 21:44 Dose: 100 mg Isosorbide Mononitrate (Imdur -) 30 mg PO DAILY [facility] Last Admin: 06/01/17 11:59 Dose: Not Given Nifedipine (Procardia Xl -) 120 mg PO DAILY [facility] Last Admin: 06/01/17 12:00 Dose: Not Given Valsartan (Diovan -) 160 mg PO BID [facility] Last Admin: 06/01/17 21:44 Dose: 160 mg - Objective Vital Signs: Vital Signs Temperature 98.6 F 06/01/17 16:30 Pulse Rate 78 06/01/17 16:30 Respiratory Rate 18 06/01/17 16:30 Blood Pressure 140/73 06/01/17 16:30 O2 Sat by Pulse Oximetry (%) 100 06/01/17 10:00 Constitutional: Yes: No Distress HENT: Yes: Atraumatic Neck: Yes: Supple Cardiovascular: Yes: Regular Rate and Rhythm Respiratory: Yes: CTA Bilaterally Gastrointestinal: Yes: Normal Bowel Sounds Extremities: Yes: WNL Edema: No Neurological: Yes: Alert, Oriented Labs: CBC, BMP 05/27/17 08:35 05/27/17 16:30 INR, PTT INR 1.07 (0.82-1.09) 03/24/17 20:30 Problem List - Problems (1) Acute on chronic kidney failure Assessment/Plan: ON HD renal on board Code(s): N17.9 - ACUTE KIDNEY FAILURE, UNSPECIFIED N18.9 - CHRONIC KIDNEY DISEASE, UNSPECIFIED (2) ESRD (end stage renal disease) Assessment/Plan: on hd Code(s): N18.6 - END STAGE RENAL DISEASE (3) Hypertension Assessment/Plan: ON MEDS STABLE Code(s): I10 - ESSENTIAL (PRIMARY) HYPERTENSION Qualifiers: Hypertension type: essential hypertension Qualified Code(s): I10 - Essential (primary) hypertension (4) Hyperparathyroidism due to renal insufficiency Code(s): N25.81 - SECONDARY HYPERPARATHYROIDISM OF RENAL ORIGIN (5) Anemia Assessment/Plan: on fe and epogen Code(s): D64.9 - ANEMIA, UNSPECIFIED Assessment/Plan dc planning please
--- NOTE | 2017-06-01 22:19 | DS ---
Physical Examination Vital Signs: Vital Signs Temperature 98.6 F 06/01/17 16:30 Pulse Rate 78 06/01/17 16:30 Respiratory Rate 18 06/01/17 16:30 Blood Pressure 140/73 06/01/17 16:30 O2 Sat by Pulse Oximetry (%) 100 06/01/17 10:00 Labs: CBC, BMP 05/27/17 08:35 05/27/17 16:30 Discharge Summary Reason For Visit: ACUTE ON CHRONIC RENAL FAILURE Current Active Problems Acute on chronic kidney failure (Acute) Anemia (Acute) Diastolic dysfunction (Acute) ESRD (end stage renal disease) (Acute) Hyperparathyroidism due to renal insufficiency (Acute) Hypertension (Acute) Hypertensive cardiomyopathy (Acute) Hypocalcemia (Acute) Condition: Unchanged/Unknown - Instructions - Home Medications Comprehensive Discharge Medication List: Ambulatory Orders Carvedilol 25 mg PO BID 03/24/17 Pantoprazole Sodium 40 mg PO DAILY 03/24/17 Amlodipine Besylate [Norvasc -] 10 mg PO DAILY #30 tablet 03/27/17 Calcium 500Mg/Vit-D 200 Units [Os-Justin 500+D -] 2 tab PO DAILY #60 tab 03/27/17 Calcium Acetate [Phoslo -] 667 mg PO TIDCM #90 bottle 03/27/17 Valsartan [Diovan] 160 mg PO BID #60 tablet 03/27/17 Calcitriol [Calcitriol -] 0.5 mcg PO DAILY #60 cap 05/26/17 Ferrous Sulfate [Feosol] 325 mg PO BIDWM #60 tab 05/26/17 Hydralazine HCl [Apresoline -] 100 mg PO TID #90 tablet 05/26/17 Nifedipine ER [Procardia XL -] 120 mg PO DAILY #120 tab 05/26/17 Isosorbide Mononitrate [Imdur -] 30 mg PO DAILY #30 tab 06/01/17 DC HOME FU NEPHROLOGY OUT PATIENT CONTINUE DIALYSIS PLANNED PRESCRIPTIONS SENT
[2017-06-02] MEDS: hydrALAZINE HCL 50 MG TABLET (FP) PO SCH ×3 (06:09→21:51)
[2017-06-02] MEDS: FERROUS SO4 325 MG TABLET (FP) PO SCH ×2 (08:10→17:27)
[2017-06-02] MEDS: CALCIUM ACETATE 667 MG CAPSULE (FP) PO SCH ×3 (08:10→17:27)
[2017-06-02] MEDS: NIFEdipine E.R 60 MG TABLET (UD) PO SCH (10:27)
[2017-06-02] MEDS: CALCIUM 500MG/VIT-D 200 UNITS COMBO TABLET (FP) PO SCH (10:27)
[2017-06-02] MEDS: ISOSORBIDE MONONITRATE 30 MG TAB.SR.24H (FP) PO SCH (10:27)
[2017-06-02] MEDS: CARVEDILOL 25 MG TABLET (FP) PO SCH ×2 (10:27→21:51)
[2017-06-02] MEDS: CALCITRIOL 0.25 MCG CAPSULE (FP) PO SCH (10:27)
[2017-06-02] MEDS: VALSARTAN 160 MG TABLET (UD) PO SCH ×2 (10:27→21:51)
--- NOTE | 2017-06-02 15:16 | PN ---
Progress Note, Physician History of Present Illness: no complaints - Current Medication List Current Medications: Active Medications Calcitriol (Rocaltrol -) 0.5 mcg PO DAILY [facility] Last Admin: 06/02/17 10:27 Dose: 0.5 mcg Calcium Acetate (Phoslo -) 667 mg PO TIDCM [facility] Last Admin: 06/02/17 12:33 Dose: 667 mg Calcium Carbonate/Cholecalciferol (Os-Justin 500+D -) 2 tab PO DAILY [facility] Last Admin: 06/02/17 10:27 Dose: 2 tab Carvedilol (Coreg -) 25 mg PO BID [facility] Last Admin: 06/02/17 10:27 Dose: 25 mg Epoetin Refugio (Epogen -) 4,000 units IVPUSH ONCE ONE Stop: 06/03/17 16:31 Ferrous Sulfate (Feosol -) 325 mg PO BIDWM [facility] Last Admin: 06/02/17 08:10 Dose: 325 mg Heparin Sodium (Porcine) (Heparin -) 1,000 unit IVPUSH ONCE ONE Stop: 06/03/17 16:31 Hydralazine HCl (Apresoline -) 100 mg PO TID [facility] Last Admin: 06/02/17 13:40 Dose: 100 mg Isosorbide Mononitrate (Imdur -) 30 mg PO DAILY [facility] Last Admin: 06/02/17 10:27 Dose: 30 mg Nifedipine (Procardia Xl -) 120 mg PO DAILY [facility] Last Admin: 06/02/17 10:27 Dose: 120 mg Valsartan (Diovan -) 160 mg PO BID [facility] Last Admin: 06/02/17 10:27 Dose: 160 mg - Objective Vital Signs: Vital Signs Temperature 98.4 F 06/02/17 15:05 Pulse Rate 80 06/02/17 15:05 Respiratory Rate 18 06/02/17 15:05 Blood Pressure 136/75 06/02/17 15:05 O2 Sat by Pulse Oximetry (%) 98 06/02/17 09:00 Constitutional: Yes: No Distress HENT: Yes: Atraumatic Neck: Yes: Supple Cardiovascular: Yes: Regular Rate and Rhythm Respiratory: Yes: CTA Bilaterally Gastrointestinal: Yes: Normal Bowel Sounds Extremities: Yes: WNL Neurological: Yes: Alert, Oriented Labs: CBC, BMP 05/27/17 08:35 05/27/17 16:30 INR, PTT INR 1.07 (0.82-1.09) 03/24/17 20:30 Problem List - Problems (1) Acute on chronic kidney failure Assessment/Plan: ON HD renal on board Code(s): N17.9 - ACUTE KIDNEY FAILURE, UNSPECIFIED N18.9 - CHRONIC KIDNEY DISEASE, UNSPECIFIED (2) ESRD (end stage renal disease) Assessment/Plan: on hd Code(s): N18.6 - END STAGE RENAL DISEASE (3) Hypertension Assessment/Plan: ON MEDS STABLE Code(s): I10 - ESSENTIAL (PRIMARY) HYPERTENSION Qualifiers: Hypertension type: essential hypertension Qualified Code(s): I10 - Essential (primary) hypertension (4) Hyperparathyroidism due to renal insufficiency Code(s): N25.81 - SECONDARY HYPERPARATHYROIDISM OF RENAL ORIGIN (5) Anemia Assessment/Plan: on fe and epogen Code(s): D64.9 - ANEMIA, UNSPECIFIED Assessment/Plan dc tomorrow after hd prescriptions sent 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
--- NOTE | 2017-06-02 15:53 | PN ---
Progress Note, Physician History of Present Illness: Pt seen and examined. No complaints. - Current Medication List Current Medications: Active Medications Calcitriol (Rocaltrol -) 0.5 mcg PO DAILY [facility] Last Admin: 06/02/17 10:27 Dose: 0.5 mcg Calcium Acetate (Phoslo -) 667 mg PO TIDCM [facility] Last Admin: 06/02/17 12:33 Dose: 667 mg Calcium Carbonate/Cholecalciferol (Os-Justin 500+D -) 2 tab PO DAILY [facility] Last Admin: 06/02/17 10:27 Dose: 2 tab Carvedilol (Coreg -) 25 mg PO BID [facility] Last Admin: 06/02/17 10:27 Dose: 25 mg Epoetin Refugio (Epogen -) 4,000 units IVPUSH ONCE ONE Stop: 06/03/17 16:31 Ferrous Sulfate (Feosol -) 325 mg PO BIDWM [facility] Last Admin: 06/02/17 08:10 Dose: 325 mg Heparin Sodium (Porcine) (Heparin -) 1,000 unit IVPUSH ONCE ONE Stop: 06/03/17 16:31 Hydralazine HCl (Apresoline -) 100 mg PO TID [facility] Last Admin: 06/02/17 13:40 Dose: 100 mg Isosorbide Mononitrate (Imdur -) 30 mg PO DAILY [facility] Last Admin: 06/02/17 10:27 Dose: 30 mg Nifedipine (Procardia Xl -) 120 mg PO DAILY [facility] Last Admin: 06/02/17 10:27 Dose: 120 mg Valsartan (Diovan -) 160 mg PO BID [facility] Last Admin: 06/02/17 10:27 Dose: 160 mg - Objective Vital Signs: Vital Signs Temperature 98.4 F 06/02/17 15:05 Pulse Rate 80 06/02/17 15:05 Respiratory Rate 18 06/02/17 15:05 Blood Pressure 136/75 06/02/17 15:05 O2 Sat by Pulse Oximetry (%) 98 06/02/17 09:00 Constitutional: Yes: Calm Eyes: Yes: Conjunctiva Clear HENT: Yes: Atraumatic Cardiovascular: Yes: S1, S2 Respiratory: Yes: CTA Bilaterally Gastrointestinal: Yes: Soft Genitourinary: Yes: WNL Edema: No Integumentary: Yes: WNL Neurological: Yes: Oriented Psychiatric: Yes: Oriented Labs: CBC, BMP 05/27/17 08:35 05/27/17 16:30 INR, PTT INR 1.07 (0.82-1.09) 03/24/17 20:30 Problem List - Problems (1) ESRD (end stage renal disease) Code(s): N18.6 - END STAGE RENAL DISEASE (2) Hypertension Code(s): I10 - ESSENTIAL (PRIMARY) HYPERTENSION Qualifiers: Hypertension type: essential hypertension Qualified Code(s): I10 - Essential (primary) hypertension (3) Hyperparathyroidism due to renal insufficiency Code(s): N25.81 - SECONDARY HYPERPARATHYROIDISM OF RENAL ORIGIN Assessment/Plan Current Medications Generic Name Dose Route Start Last Admin Trade Name Freq PRN Reason Stop Dose Admin Calcitriol 0.5 mcg 04/06/17 11:42 06/02/17 10:27 Rocaltrol - PO 0.5 mcg DAILY [facility] Administration Calcium Acetate 667 mg 03/25/17 17:30 06/02/17 12:33 Phoslo - PO 667 mg TIDCM [facility] Administration Calcium Carbonate/Cholecalciferol 2 tab 03/25/17 15:00 06/02/17 10:27 Os-Justin 500+D - PO 2 tab DAILY [facility] Administration Carvedilol 25 mg 03/25/17 10:00 06/02/17 10:27 Coreg - PO 25 mg BID [facility] Administration Epoetin Refugio 4,000 units 06/03/17 16:30 Epogen - IVPUSH 06/03/17 16:31 ONCE ONE Ferrous Sulfate 325 mg 03/28/17 17:30 06/02/17 08:10 Feosol - PO 325 mg BIDWM [facility] Administration Heparin Sodium (Porcine) 1,000 unit 06/03/17 16:30 Heparin - IVPUSH 06/03/17 16:31 ONCE ONE Hydralazine HCl 100 mg 05/06/17 05:31 06/02/17 13:40 Apresoline - PO 100 mg TID [facility] Administration Isosorbide Mononitrate 30 mg 05/30/17 11:45 06/02/17 10:27 Imdur - PO 30 mg DAILY [facility] Administration Nifedipine 120 mg 05/21/17 13:06 06/02/17 10:27 Procardia Xl - PO 120 mg DAILY [facility] Administration Valsartan 160 mg 03/27/17 22:00 06/02/17 10:27 Diovan - PO 160 mg BID [facility] Administration Impression 1. ESRD 2. HTN 3. hypocalcemia improving 4. anemia 5. hyperparathyroidism due to renal disease Plan -HD in am - discussed with PMD - discharge planning - epogen for anemia - monitor blood pressure - HD set up for 06/05 for 2nd shift in [facility]
[2017-06-03] MEDS: hydrALAZINE HCL 50 MG TABLET (FP) PO SCH ×3 (05:42→21:52)
[2017-06-03] MEDS: CALCIUM 500MG/VIT-D 200 UNITS COMBO TABLET (FP) PO SCH (09:12)
[2017-06-03] MEDS: CARVEDILOL 25 MG TABLET (FP) PO SCH ×2 (09:12→21:52)
[2017-06-03] MEDS: VALSARTAN 160 MG TABLET (UD) PO SCH ×2 (09:12→21:52)
[2017-06-03] MEDS: ISOSORBIDE MONONITRATE 30 MG TAB.SR.24H (FP) PO SCH (09:12)
[2017-06-03] MEDS: CALCITRIOL 0.25 MCG CAPSULE (FP) PO SCH (09:12)
[2017-06-03] MEDS: CALCIUM ACETATE 667 MG CAPSULE (FP) PO SCH ×3 (09:12→18:05)
[2017-06-03] MEDS: NIFEdipine E.R 60 MG TABLET (UD) PO SCH (09:12)
[2017-06-03] MEDS: FERROUS SO4 325 MG TABLET (FP) PO SCH ×2 (09:13→18:05)
--- NOTE | 2017-06-03 12:28 | PN ---
Progress Note, Physician History of Present Illness: No chest pain or dyspnea. BP elevated. - Current Medication List Current Medications: Active Medications Calcitriol (Rocaltrol -) 0.5 mcg PO DAILY [facility] Last Admin: 06/03/17 09:12 Dose: 0.5 mcg Calcium Acetate (Phoslo -) 667 mg PO TIDCM [facility] Last Admin: 06/03/17 09:12 Dose: 667 mg Calcium Carbonate/Cholecalciferol (Os-Justin 500+D -) 2 tab PO DAILY [facility] Last Admin: 06/03/17 09:12 Dose: 2 tab Carvedilol (Coreg -) 25 mg PO BID [facility] Last Admin: 06/03/17 09:12 Dose: 25 mg Epoetin Refugio (Epogen -) 4,000 units IVPUSH ONCE ONE Stop: 06/03/17 16:31 Ferrous Sulfate (Feosol -) 325 mg PO BIDWM [facility] Last Admin: 06/03/17 09:13 Dose: 325 mg Heparin Sodium (Porcine) (Heparin -) 1,000 unit IVPUSH ONCE ONE Stop: 06/03/17 16:31 Hydralazine HCl (Apresoline -) 100 mg PO TID [facility] Last Admin: 06/03/17 05:42 Dose: 100 mg Isosorbide Mononitrate (Imdur -) 30 mg PO DAILY [facility] Last Admin: 06/03/17 09:12 Dose: 30 mg Nifedipine (Procardia Xl -) 120 mg PO DAILY [facility] Last Admin: 06/03/17 09:12 Dose: 120 mg Valsartan (Diovan -) 160 mg PO BID [facility] Last Admin: 06/03/17 09:12 Dose: 160 mg - Objective Vital Signs: Vital Signs Temperature 98.1 F 06/03/17 06:13 Pulse Rate 73 06/03/17 06:13 Respiratory Rate 20 06/03/17 06:13 Blood Pressure 202/112 06/03/17 06:13 O2 Sat by Pulse Oximetry (%) 100 06/02/17 21:00 Constitutional: Yes: No Distress, Calm, Thin Neck: Yes: Supple Cardiovascular: Yes: Regular Rate and Rhythm Respiratory: Yes: Regular, CTA Bilaterally Gastrointestinal: Yes: Normal Bowel Sounds, Soft Edema: No Labs: CBC, BMP 05/27/17 08:35 05/27/17 16:30 INR, PTT INR 1.07 (0.82-1.09) 03/24/17 20:30 Problem List - Problems (1) Acute on chronic kidney failure Code(s): N17.9 - ACUTE KIDNEY FAILURE, UNSPECIFIED N18.9 - CHRONIC KIDNEY DISEASE, UNSPECIFIED (2) ESRD (end stage renal disease) Code(s): N18.6 - END STAGE RENAL DISEASE (3) Hypertensive cardiomyopathy Code(s): I11.9 - HYPERTENSIVE HEART DISEASE WITHOUT HEART FAILURE I42.9 - CARDIOMYOPATHY, UNSPECIFIED Qualifiers: Heart failure presence: without heart failure Qualified Code(s): I11.9 - Hypertensive heart disease without heart failure; I43 - Cardiomyopathy in diseases classified elsewhere (4) Diastolic dysfunction Code(s): I51.9 - HEART DISEASE, UNSPECIFIED (5) Hypocalcemia Code(s): E83.51 - HYPOCALCEMIA (6) Hyperparathyroidism due to renal insufficiency Code(s): N25.81 - SECONDARY HYPERPARATHYROIDISM OF RENAL ORIGIN Assessment/Plan 03/25/2017 Echo: Normal LV size and fxn, mod cLVH, mild LAE, mild TR, RVSP 30-40 mmHg, mild AR, Tr-mild [place] 1. ESRD->HD 2. LV diastolic dysfunction with class I-II NYHA classification LV failure, compensated 3. CAD angina pectoris abnormal EKG with evidence of demand ischemia 4. HTN/HCVD, BP control not at goal 5. Anemia 6. Hypocalcemia improving 7. Hyperparathyroidism due to renal disease PLAN: 1. Continue Coreg 25 mg bid, Procardia XL 120 qd, Diovan 160 bid and hydralazine 100 tid, increase Imdur 60 qd with uptitration as further BP reduction is needed 2. HD as per renal service, outpatient HD arrangement made, d/c planning
--- NOTE | 2017-06-03 15:27 | PN ---
Progress Note, Physician History of Present Illness: Pt seen and examined at bedside. He is awake and alert. He is due for HD today. - Current Medication List Current Medications: Active Medications Calcitriol (Rocaltrol -) 0.5 mcg PO DAILY [facility] Last Admin: 06/03/17 09:12 Dose: 0.5 mcg Calcium Acetate (Phoslo -) 667 mg PO TIDCM [facility] Last Admin: 06/03/17 12:34 Dose: 667 mg Calcium Carbonate/Cholecalciferol (Os-Justin 500+D -) 2 tab PO DAILY [facility] Last Admin: 06/03/17 09:12 Dose: 2 tab Carvedilol (Coreg -) 25 mg PO BID [facility] Last Admin: 06/03/17 09:12 Dose: 25 mg Epoetin Refugio (Epogen -) 4,000 units IVPUSH ONCE ONE Stop: 06/03/17 16:31 Ferrous Sulfate (Feosol -) 325 mg PO BIDWM [facility] Last Admin: 06/03/17 09:13 Dose: 325 mg Heparin Sodium (Porcine) (Heparin -) 1,000 unit IVPUSH ONCE ONE Stop: 06/03/17 16:31 Hydralazine HCl (Apresoline -) 100 mg PO TID [facility] Last Admin: 06/03/17 13:42 Dose: 100 mg Isosorbide Mononitrate (Imdur -) 60 mg PO DAILY [facility] Nifedipine (Procardia Xl -) 120 mg PO DAILY [facility] Last Admin: 06/03/17 09:12 Dose: 120 mg Valsartan (Diovan -) 160 mg PO BID [facility] Last Admin: 06/03/17 09:12 Dose: 160 mg - Objective Vital Signs: Vital Signs Temperature 98.4 F 06/03/17 10:00 Pulse Rate 72 06/03/17 10:00 Respiratory Rate 16 06/03/17 10:00 Blood Pressure 171/101 06/03/17 10:00 O2 Sat by Pulse Oximetry (%) 100 06/03/17 09:00 Constitutional: Yes: Calm Eyes: Yes: Conjunctiva Clear HENT: Yes: Atraumatic Cardiovascular: Yes: S1, S2 Respiratory: Yes: CTA Bilaterally Gastrointestinal: Yes: Soft Genitourinary: Yes: WNL Musculoskeletal: Yes: WNL Edema: No Neurological: Yes: Oriented Psychiatric: Yes: Oriented Labs: CBC, BMP 05/27/17 08:35 05/27/17 16:30 INR, PTT INR 1.07 (0.82-1.09) 03/24/17 20:30 Problem List - Problems (1) ESRD (end stage renal disease) Code(s): N18.6 - END STAGE RENAL DISEASE (2) Hypertension Code(s): I10 - ESSENTIAL (PRIMARY) HYPERTENSION Qualifiers: Hypertension type: essential hypertension Qualified Code(s): I10 - Essential (primary) hypertension (3) Hyperparathyroidism due to renal insufficiency Code(s): N25.81 - SECONDARY HYPERPARATHYROIDISM OF RENAL ORIGIN Assessment/Plan Current Medications Generic Name Dose Route Start Last Admin Trade Name Freq PRN Reason Stop Dose Admin Calcitriol 0.5 mcg 04/06/17 11:42 06/03/17 09:12 Rocaltrol - PO 0.5 mcg DAILY [facility] Administration Calcium Acetate 667 mg 03/25/17 17:30 06/03/17 12:34 Phoslo - PO 667 mg TIDCM [facility] Administration Calcium Carbonate/Cholecalciferol 2 tab 03/25/17 15:00 06/03/17 09:12 Os-Justin 500+D - PO 2 tab DAILY [facility] Administration Carvedilol 25 mg 03/25/17 10:00 06/03/17 09:12 Coreg - PO 25 mg BID [facility] Administration Epoetin Refugio 4,000 units 06/03/17 16:30 Epogen - IVPUSH 06/03/17 16:31 ONCE ONE Ferrous Sulfate 325 mg 03/28/17 17:30 06/03/17 09:13 Feosol - PO 325 mg BIDWM [facility] Administration Heparin Sodium (Porcine) 1,000 unit 06/03/17 16:30 Heparin - IVPUSH 06/03/17 16:31 ONCE ONE Hydralazine HCl 100 mg 05/06/17 05:31 06/03/17 13:42 Apresoline - PO 100 mg TID [facility] Administration Isosorbide Mononitrate 60 mg 06/04/17 10:00 Imdur - PO DAILY [facility] Nifedipine 120 mg 05/21/17 13:06 06/03/17 09:12 Procardia Xl - PO 120 mg DAILY [facility] Administration Valsartan 160 mg 03/27/17 22:00 06/03/17 09:12 Diovan - PO 160 mg BID [facility] Administration Impression 1. ESRD 2. HTN 3. hypocalcemia improving 4. anemia 5. hyperparathyroidism due to renal disease Plan - repeat bp after am meds - HD today - discharge planning - HD set up for 06/05 [address] shift in [facility] HD Dr Ramos
[2017-06-03] MEDS ORDERED: EPOETIN ALFA 2,000 UNITS/1 ML VIAL IVPUSH ONE (16:30)
[2017-06-03] MEDS ORDERED: HEPARIN NA (PORCINE) 5,000 UNITS/ML 1ML VIAL IVPUSH ONE (16:30)
[2017-06-04 00:22] VITALS: BP 160/106; PULSE 72; TEMP 98
[2017-06-04] MEDS ORDERED: ISOSORBIDE MONONITRATE 60 MG TAB.SR.24H (FP) PO SCH (10:00)
== END 2017-06-04 01:32 | disposition home or self-care (01) | DRG 460 ==
LOC: JER 17:47 → JERBED 22:19 → UNDOADMOB 22:19 → JERBED 23:15 → OBSVTOIN 03-25 00:26 → JERBED 03-25 00:26 → J4W 03-25 01:47 → J8W 03-27 15:17 → JERBED 05-25 22:34
PROVIDERS: ADMIT Internal Medicine; ATTEND Internal Medicine
PROC: 5A1D60Z (ICD-10-PCS; principal; 2017-06-03)
DX: N17.9 Acute kidney failure, unspecified (principal); Z99.2 Dependence on renal dialysis; N25.81 Secondary hyperparathyroidism of renal origin; E83.51 Hypocalcemia; D64.9 Anemia, unspecified; I25.119 Atherosclerotic heart disease of native coronary artery with unspecified angina pectoris; I13.11 Hypertensive heart and chronic kidney disease without heart failure, with stage 5 chronic kidney disease, or end stage renal disease; N18.6 End stage renal disease
CPT/HCPCS: 36415; 71020-TC; 80048; 80053; 81003; 81015; 82310; 82550; 82565; 82728; 82803; 83540; 83605; 83970; 84100; 84311; 84484; 84520; 85025; 85027; 85610; 85730; 86704; 86706; 86708; 86803; 86850; 86900; 86901; 87040; 87086; 87340; 93005; 93010; 93306-TC; 99283-25; J0885; J1644

== ENCOUNTER 2017-12-15 10:07 | Observation (INO) | payer SELFPAY ==
[2017-12-15 10:36] VITALS: BMI 27.2
[2017-12-15 11:48] LABS: BASO % 0.2 % (0-2.0); EOS % 5.8 % (0-4.5); HEMATOCRIT 31.5 % (35.4-49); LYMPH % 33.4 % (8-40); MCH 27.4 pg (25.7-33.7); MCHC 31.9 g/dl (32.0-35.9); MEAN CELL VOLUME 85.9 fl (80-96); MEAN PLT VOLUME 7.3 fl (7.5-11.1); MONO % 10.6 % (3.8-10.2); PLATELET COUNT 242 K/MM3 (134-434); RBC 3.66 M/mm3 (4.00-5.60); RDW 15.3 % (11.9-15.9); WHITE BLOOD COUNT 5.4 K/mm3 (4.0-10.0)
[2017-12-15 12:16] LABS: PROTHROMBIN TIME (PATIENT) 11.3 SEC (9.98-11.88)
--- NOTE | 2017-12-15 12:16 | PDOC ---
History of Present Illness - General History Source: Patient Exam Limitations: No Limitations - History of Present Illness Initial Comments: 12/15/17 12:23 The patient is a 57 year old male, with a significant past medical history of ESRD(on dialysis T,Th, S), hypertension, and GERD, who presents to the emergency department sent by Echocardiograph Tech Dr. Ramos for evaluation of nonfunctioning permacatheter in right chest. Patient reports he last went to dialysis on Friday and was unable to be dialyzed secondary to non functioning catheter. Patient denies any fever, chills, headache, or dizziness. He denies any abdominal pain, nausea, vomiting, diarrhea, or constipation. He denies any changes in urination. Allergies: NKDA Past Surgical History: Permacatheter Social History: Non smoker. No ETOH or recreational drug use. PCP: Dr. Adame Echocardiograph Tech: Dr. Ramos <Mulugeta Ferreira - Last Filed: 12/15/17 14:44> <Ronal Rothman - Last Filed: 12/15/17 15:32> - General Chief Complaint: Dialysis Shunt Problem Stated Complaint: PCP: SENT/ WOUND CARE Time Seen by Provider: 12/15/17 10:58 Past History <Mulugeta Ferreira - Last Filed: 12/15/17 14:44> - Past Medical History COPD: No DVT: No Dialysis: Yes (Rt chest shunt) HTN: Yes - Immunization History Immunization Up to Date: Yes - Suicide/Smoking/Psychosocial Hx Smoking History: Never smoked Have you smoked in the past 12 months: No Information on smoking cessation initiated: No Hx Alcohol Use: No Drug/Substance Use Hx: No Substance Use Type: None Hx Substance Use Treatment: No <Ronal Rothman - Last Filed: 12/15/17 15:32> - Past Medical History Allergies/Adverse Reactions: Allergies Allergy/AdvReac Type Severity Reaction Status Date / Time No Known Allergies Allergy Verified 12/15/17 10:30 Home Medications: Ambulatory Orders Amlodipine Besylate 10 mg PO DAILY 03/24/17 Carvedilol 25 mg PO BID 03/24/17 Pantoprazole Sodium 40 mg PO DAILY 03/24/17 Amlodipine Besylate [Norvasc -] 10 mg PO DAILY #30 tablet 03/27/17 Calcium 500Mg/Vit-D 200 Units [Os-Justin 500+D -] 2 tab PO DAILY #60 tab 03/27/17 Calcium Acetate [Phoslo -] 667 mg PO TIDCM #90 bottle 03/27/17 Valsartan [Diovan] 160 mg PO BID #60 tablet 03/27/17 Calcitriol [Calcitriol -] 0.5 mcg PO DAILY #60 cap 05/26/17 Ferrous Sulfate [Feosol] 325 mg PO BIDWM #60 tab 05/26/17 Hydralazine HCl [Apresoline -] 100 mg PO TID #90 tablet 05/26/17 Nifedipine ER [Procardia XL -] 120 mg PO DAILY #120 tab 05/26/17 Isosorbide Mononitrate [Imdur -] 30 mg PO DAILY #30 tab 06/01/17 Unobtainable 12/15/17 Review of Systems - Review of Systems Able to Perform ROS?: Yes Comments:: 12/15/17 12:23 ROS: A complete review of 10 out of 10 review of systems is taken and is negative apart from what is previously mentioned below and in the HPI. <Mulugeta Ferreira - Last Filed: 12/15/17 14:44> *Physical Exam - Vital Signs Last Vital Signs Temp Pulse Resp BP Pulse Ox 97.5 F L 71 17 128/79 100 12/15/17 10:31 12/15/17 10:31 12/15/17 10:31 12/15/17 10:31 12/15/17 10:31 - Physical Exam Comments: 12/15/17 12:24 Vitals: Triage vital signs reviewed General Appearance: No acute distress, well nourished, well developed Head: Atraumatic Eyes: Pupils equal reactive round, extraocular movement intact Chest Wall: Indwelling infraclavicular permacath. Nontender Cardiac: Regular rate and rhythm, no murmurs, no rubs, no gallops Lungs: Clear to auscultation bilateral, good air movement bilaterally Abdomen: Soft, nondistended, normal bowel sounds, nontender to palpation Extremities: Full range of motion to all extremities, no cyanosis, clubbing, or edema Skin: Warm and dry, no rashes or lesions, no rash, no petechiae <Mulugeta Ferreira - Last Filed: 12/15/17 14:44> - Vital Signs Last Vital Signs Temp Pulse Resp BP Pulse Ox 97.5 F L 71 17 128/79 100 12/15/17 10:31 12/15/17 10:31 12/15/17 10:31 12/15/17 10:31 12/15/17 10:31 <Ronal Rothman - Last Filed: 12/15/17 15:32> Heart Score/ECG Review - ECG Intrepretation Comment:: 12/15/17 13:24 Vent Rate: 64 bpm IMPRESSION: Normal sinus rhythm. Septal infarct, age undetermined. Abnormal ECG. <Mulugeta Ferreira - Last Filed: 12/15/17 14:44> ED Treatment Course - LABORATORY CBC & Chemistry Diagram: 12/15/17 11:38 12/15/17 11:38 - ADDITIONAL ORDERS Additional order review: Laboratory Results 12/15/17 11:38 PT with INR 11.30 INR 1.00 PTT (Actin FS) 32.9 12/15/17 11:38 RBC 3.66 L MCV 85.9 MCHC 31.9 L RDW 15.3 D MPV 7.3 L Neutrophils % 50.0 Lymphocytes % 33.4 Monocytes % 10.6 H Eosinophils % 5.8 H D Basophils % 0.2 - RADIOLOGY Radiograph Interpretation: 12/15/17 13:18 EXAM: CXR Interpreted By: Dr. Storey Reviewed By: Dr. Rothman Impression: No acute pathology. No significant change since 03/24/2017. - Consult/PCP Time Called: 13:03 (Case discussed with Dr. Adame, who accepts admission.) - Additional Consults Time Called: 12:19 (First call to Dr. Ramos) Consult/PCP: Nephrlogist. Case discussed at this time. Reason/Comments: Nonfunctioning permacath Time Called: 12:28 (First call, case discussed at this time.) Consult/PCP: Consult Dr. Lincoln Reason/Comments: Requested by Dr. Ramos. <Mulugeta Ferreira - Last Filed: 12/15/17 14:44> - LABORATORY CBC & Chemistry Diagram: 12/15/17 11:38 12/15/17 11:38 - ADDITIONAL ORDERS Additional order review: 12/15/17 11:38 RBC 3.66 L MCV 85.9 MCHC 31.9 L RDW 15.3 D MPV 7.3 L Neutrophils % 50.0 Lymphocytes % 33.4 Monocytes % 10.6 H Eosinophils % 5.8 H D Basophils % 0.2 - RADIOLOGY Radiology Studies Ordered: Category Date Time Status CHEST PA & LAT [RAD] Stat Radiology 12/15/17 10:51 Completed <Ronal Rothman - Last Filed: 12/15/17 15:32> Medical Decision Making - Medical Decision Making 12/15/17 15:32 Nonfunctioning dialysis permacath. Case discussed with Dr. Lincoln vascular surgery plan is observation for placement of permacath patient's potassium is normal no EKG changes does not need emergent dialysis if catheter can be placed later today patient can be discharged and follow-up as scheduled for his routine dialysis tomorrow. <Ronal Rothman - Last Filed: 12/15/17 15:32> *DC/Admit/Observation/Transfer - Attestations Scribe Attestion: 12/15/17 12:25 Documentation prepared by Mulugeta Ferreira, acting as medical facilities section director for Ronal Rothman MD. <Mulugeta Ferreira - Last Filed: 12/15/17 14:44> - Discharge Dispostion Admit: Yes <Ronal Rothman - Last Filed: 12/15/17 15:32> Diagnosis at time of Disposition: Dialysis catheter clot or failure - Discharge Dispostion Disposition: HOME
[2017-12-15 12:17] LABS: ALBUMIN 3.5 g/dl (3.4-5.0); ANION GAP 12 (8-16); BILIRUBIN,TOTAL 0.3 mg/dL (0.2-1.0); BLOOD UREA NITROGEN 43 mg/dL (7-18); CALCIUM 7.6 mg/dL (8.5-10.1); CHLORIDE 106 mmol/L (98-107); CO2 23 mmol/L (21-32); GLUCOSE,RANDOM 84 mg/dL (74-106); POTASSIUM 4.9 mmol/L (3.5-5.1); SGOT/AST 10 U/L (15-37); SGPT/ALT 9 U/L (12-78); SODIUM 141 mmol/L (136-145)
[2017-12-15 12:18] LABS: ACTIVATED PTT 32.9 SECONDS (26.9-34.4)
[2017-12-15 12:23] LABS: ALK PHOS 194 U/L (45-117)
[2017-12-15 12:26] LABS: CREATININE 11.9 mg/dL (0.7-1.3)
--- NOTE | 2017-12-15 14:42 | CONSULT ---
Consult Consult Specialty:: Nephrology Reason for Consultation:: ESRD - History of Present Illness Chief Complaint: I sent pt in for catheter malfunction History of Present Illness: Pt is a 57 year old male with pmhx of ESRD, HTN and GERD who I sent in for evaluation of his HD catheter. Pts catheter has been having high pressure alarms on the machine and we are not always able to achieve a flow of 400 ml/ min. He has no complaints. His last HD was on Friday. He also has a scab that developed on the exit site. He has missed several vascular surgery evals. He denies shortness of breath. He denies palpitations. He is due for HD tomorrow. - Past Medical History Cardio/Vascular: Yes: HTN Gastrointestinal: Yes: GERD Renal/: Yes: Renal Failure, Hemodialysis - Alcohol/Substance Use Hx Alcohol Use: No - Smoking History Smoking history: Never smoked Have you smoked in the past 12 months: No Home Medications - Allergies Allergies/Adverse Reactions: Allergies Allergy/AdvReac Type Severity Reaction Status Date / Time No Known Allergies Allergy Verified 12/15/17 10:30 - Home Medications Home Medications: Ambulatory Orders Amlodipine Besylate 10 mg PO DAILY 03/24/17 Carvedilol 25 mg PO BID 03/24/17 Pantoprazole Sodium 40 mg PO DAILY 03/24/17 Amlodipine Besylate [Norvasc -] 10 mg PO DAILY #30 tablet 03/27/17 Calcium 500Mg/Vit-D 200 Units [Os-Justin 500+D -] 2 tab PO DAILY #60 tab 03/27/17 Calcium Acetate [Phoslo -] 667 mg PO TIDCM #90 bottle 03/27/17 Valsartan [Diovan] 160 mg PO BID #60 tablet 03/27/17 Calcitriol [Calcitriol -] 0.5 mcg PO DAILY #60 cap 05/26/17 Ferrous Sulfate [Feosol] 325 mg PO BIDWM #60 tab 05/26/17 Hydralazine HCl [Apresoline -] 100 mg PO TID #90 tablet 05/26/17 Nifedipine ER [Procardia XL -] 120 mg PO DAILY #120 tab 05/26/17 Isosorbide Mononitrate [Imdur -] 30 mg PO DAILY #30 tab 06/01/17 Family Disease History - Family Disease History Family History: Denies Review of Systems - Review of Systems Constitutional: reports: No Symptoms Eyes: reports: No Symptoms HENT: reports: No Symptoms Neck: reports: No Symptoms Cardiovascular: reports: No Symptoms Respiratory: reports: No Symptoms Gastrointestinal: reports: No Symptoms Genitourinary: reports: No Symptoms Musculoskeletal: reports: No Symptoms Integumentary: reports: No Symptoms Neurological: reports: No Symptoms Endocrine: reports: No Symptoms Hematology/Lymphatic: reports: No Symptoms Physical Exam Vital Signs: Vital Signs Temperature 97.5 F L 12/15/17 10:31 Pulse Rate 71 12/15/17 10:31 Respiratory Rate 17 12/15/17 10:31 Blood Pressure 128/79 12/15/17 10:31 O2 Sat by Pulse Oximetry (%) 100 12/15/17 10:31 Constitutional: Yes: Calm Eyes: Yes: Conjunctiva Clear HENT: Yes: Atraumatic Neck: Yes: Supple Cardiovascular: Yes: S1, S2 Respiratory: Yes: CTA Bilaterally Gastrointestinal: Yes: Normal Bowel Sounds Renal/: Yes: WNL Musculoskeletal: Yes: WNL Edema: No Neurological: Yes: Oriented Psychiatric: Yes: Oriented Labs: CBC, BMP 12/15/17 11:38 12/15/17 11:38 Laboratory Tests 12/15/17 12/15/17 11:38 11:38 Hgb 10.0 L Potassium 4.9 D BUN 43 H D Imaging - Results Chest X-ray: Report Reviewed Problem List - Problems (1) Dialysis catheter clot or failure Code(s): [id number] - (2) Anemia Code(s): D64.9 - ANEMIA, UNSPECIFIED (3) ESRD (end stage renal disease) Code(s): N18.6 - END STAGE RENAL DISEASE (4) Hypertension Code(s): I10 - ESSENTIAL (PRIMARY) HYPERTENSION Qualifiers: Assessment/Plan Impression 1. ESRD 2. HTN 3. hypocalcemia 4. anemia 5. HD access malfunction Plan - vascular for catheter exchange - resume home meds - pt has HD set up as outpt if he is discharged today - discussed with ER Dr Ramos
--- NOTE | 2017-12-15 15:47 | HP ---
Admitting History and Physical - Primary Care Physician PCP: Campos Adame - Admission History of Present Illness: 57 year old male, with a significant past medical history of ESRD(on dialysis T, , S), hypertension, and GERD, who presents to the emergency department sent by Radiation Control Worker Dr. Ramos for evaluation of nonfunctioning permacatheter in right chest. Patient reports he last went to dialysis on Friday and was unable to be dialyzed secondary to non functioning catheter. Patient denies any fever, chills, headache, or dizziness. He denies any abdominal pain, nausea, vomiting, diarrhea, or constipation. He denies any changes in urination. - Past Medical History Cardiovascular: Yes: HTN Gastrointestinal: Yes: GERD Renal/: Yes: Renal Failure, Hemodialysis - Smoking History Smoking history: Never smoked Have you smoked in the past 12 months: No - Alcohol/Substance Use Hx Alcohol Use: No Home Medications - Allergies Allergies/Adverse Reactions: Allergies Allergy/AdvReac Type Severity Reaction Status Date / Time No Known Allergies Allergy Verified 12/15/17 10:30 - Home Medications Home Medications: Ambulatory Orders Amlodipine Besylate 10 mg PO DAILY 03/24/17 Carvedilol 25 mg PO BID 03/24/17 Pantoprazole Sodium 40 mg PO DAILY 03/24/17 Amlodipine Besylate [Norvasc -] 10 mg PO DAILY #30 tablet 03/27/17 Calcium 500Mg/Vit-D 200 Units [Os-Justin 500+D -] 2 tab PO DAILY #60 tab 03/27/17 Calcium Acetate [Phoslo -] 667 mg PO TIDCM #90 bottle 03/27/17 Valsartan [Diovan] 160 mg PO BID #60 tablet 03/27/17 Calcitriol [Calcitriol -] 0.5 mcg PO DAILY #60 cap 05/26/17 Ferrous Sulfate [Feosol] 325 mg PO BIDWM #60 tab 05/26/17 Hydralazine HCl [Apresoline -] 100 mg PO TID #90 tablet 05/26/17 Nifedipine ER [Procardia XL -] 120 mg PO DAILY #120 tab 05/26/17 Isosorbide Mononitrate [Imdur -] 30 mg PO DAILY #30 tab 06/01/17 Unobtainable 12/15/17 Physical Examination Vital Signs: Vital Signs Temperature 97.5 F L 12/15/17 10:31 Pulse Rate 60 12/15/17 14:31 Respiratory Rate 17 12/15/17 10:31 Blood Pressure 143/86 12/15/17 14:31 O2 Sat by Pulse Oximetry (%) 100 12/15/17 14:31 Constitutional: Yes: No Distress HENT: Yes: Atraumatic Neck: Yes: Supple Cardiovascular: Yes: Regular Rate and Rhythm Respiratory: Yes: CTA Bilaterally Gastrointestinal: Yes: Normal Bowel Sounds Extremities: Yes: WNL Neurological: Yes: Alert, Oriented Labs: CBC, BMP 12/15/17 11:38 12/15/17 11:38 Problem List - Problems (1) Dialysis catheter clot or failure Assessment/Plan: vascular to look at it in am Code(s): [id number] - (2) Anemia Assessment/Plan: due to ckd monitor Code(s): D64.9 - ANEMIA, UNSPECIFIED (3) ESRD (end stage renal disease) Assessment/Plan: on hd dr ramos aware Code(s): N18.6 - END STAGE RENAL DISEASE (4) Hypertension Assessment/Plan: on meds satble Code(s): I10 - ESSENTIAL (PRIMARY) HYPERTENSION Qualifiers: Assessment/Plan Laboratory Tests 12/15/17 12/15/17 12/15/17 10:50 11:38 11:38 WBC RBC Hgb Hct MCV MCH MCHC RDW Plt Count MPV Neutrophils % Lymphocytes % Monocytes % Eosinophils % Basophils % PT with INR 11.30 INR 1.00 PTT (Actin FS) 32.9 Sodium 141 Potassium 4.9 D Chloride 106 Carbon Dioxide 23 Anion Gap 12 BUN 43 H D Creatinine 11.9 H* Creat Clearance w eGFR 4.45 Random Glucose 84 D Calcium 7.6 L Total Bilirubin 0.3 AST 10 L ALT 9 L Alkaline Phosphatase 194 H D Total Protein 7.0 Albumin 3.5 Blood Type B POSITIVE Antibody Screen Negative 12/15/17 11:38 WBC 5.4 RBC 3.66 L Hgb 10.0 L Hct 31.5 L MCV 85.9 MCH 27.4 MCHC 31.9 L RDW 15.3 D Plt Count 242 D MPV 7.3 L Neutrophils % 50.0 Lymphocytes % 33.4 Monocytes % 10.6 H Eosinophils % 5.8 H D Basophils % 0.2 PT with INR INR PTT (Actin FS) Sodium Potassium Chloride Carbon Dioxide Anion Gap BUN Creatinine Creat Clearance w eGFR Random Glucose Calcium Total Bilirubin AST ALT Alkaline Phosphatase Total Protein Albumin Blood Type Antibody Screen Active Medications Generic Name Dose Route Start Last Admin Trade Name Freq PRN Reason Stop Dose Admin Amlodipine Besylate 10 mg 12/16/17 10:00 Norvasc - PO DAILY [facility] Calcitriol 0.5 mcg 12/16/17 10:00 Rocaltrol - PO DAILY [facility] Calcium Acetate 667 mg 12/15/17 17:30 12/15/17 18:34 Phoslo - PO 667 mg TIDCM [facility] Administration Carvedilol 25 mg 12/15/17 22:00 Coreg - PO BID [facility] Ferrous Sulfate 325 mg 12/15/17 17:30 12/15/17 18:34 Feosol - PO 325 mg BIDWM [facility] Administration Isosorbide Mononitrate 30 mg 12/16/17 10:00 Imdur - PO DAILY [facility] Pantoprazole Sodium 40 mg 12/16/17 10:00 Protonix - PO DAILY [facility]
--- NOTE | 2017-12-15 16:14 | PN ---
Progress Note (short form) - Note Progress Note: [facility] not functioning at last HD visit. Will need permacath exchange. Will do in blanche afternoon. NPO past midnight. Jamal shaver dO
[2017-12-15] MEDS: CALCIUM ACETATE 667 MG CAPSULE (FP) PO SCH (18:34)
[2017-12-15] MEDS: FERROUS SO4 325 MG TABLET (FP) PO SCH (18:34)
[2017-12-15] MEDS: CARVEDILOL 25 MG TABLET (FP) PO SCH (22:13)
[2017-12-16 08:01] LABS: BASO % 1.4 % (0-2.0); EOS % 5.7 % (0-4.5); HEMATOCRIT 28.8 % (35.4-49); HEMOGLOBIN 9.3 GM/dL (11.7-16.9); LYMPH % 34.5 % (8-40); MCH 27.6 pg (25.7-33.7); MCHC 32.2 g/dl (32.0-35.9); MEAN CELL VOLUME 85.9 fl (80-96); MEAN PLT VOLUME 7.2 fl (7.5-11.1); MONO % 8.7 % (3.8-10.2); NEUT % 49.7 % (42.8-82.8); PLATELET COUNT 232 K/MM3 (134-434); RBC 3.36 M/mm3 (4.00-5.60); RDW 14.9 % (11.9-15.9); WHITE BLOOD COUNT 6.2 K/mm3 (4.0-10.0)
[2017-12-16] MEDS: CALCIUM ACETATE 667 MG CAPSULE (FP) PO SCH ×2 (08:46→11:42)
[2017-12-16] MEDS: FERROUS SO4 325 MG TABLET (FP) PO SCH (08:46)
[2017-12-16] MEDS: CARVEDILOL 25 MG TABLET (FP) PO SCH (09:36)
[2017-12-16] MEDS ORDERED: amLODIPine BESYLATE 10 MG TABLET (FP) PO SCH (10:00)
[2017-12-16] MEDS ORDERED: ISOSORBIDE MONONITRATE 30 MG TAB.SR.24H (FP) PO SCH (10:00)
[2017-12-16] MEDS ORDERED: PANTOPRAZOLE 40 MG TABLET (FP) PO SCH (10:00)
[2017-12-16] MEDS ORDERED: CALCITRIOL 0.25 MCG CAPSULE (FP) PO SCH (10:00)
--- NOTE | 2017-12-16 10:52 | EKG ---
Test Reason : Blood Pressure : / mmHG Vent. Rate : 064 BPM Atrial Rate : 064 BPM P-R Int : 166 ms QRS Dur : 076 ms QT Int : 380 ms P-R-T Axes : 085 062 072 degrees QTc Int : 392 ms NORMAL SINUS RHYTHM SEPTAL INFARCT , AGE UNDETERMINED ABNORMAL ECG WHEN COMPARED WITH ECG OF 24-MAR-2017 20:43, QRS AXIS SHIFTED RIGHT T WAVE INVERSION NO LONGER EVIDENT IN LATERAL LEADS Confirmed by MD Trent, Hank ([id number]) on 12/16/2017 10:52:19 AM Referred By: Confirmed By:Hank Newman MD
[2017-12-16] MEDS ORDERED: EPOETIN ALFA 2,000 UNIT/1 ML VIAL IVPUSH ONE (13:42)
[2017-12-16] MEDS ORDERED: EPOETIN ALFA 3,000 UNIT, EPOETIN ALFA 2,000 UNIT IVPUSH ONE (14:15)
[2017-12-16 15:36] LABS: HEMATOCRIT 30.5 % (35.4-49); HEMOGLOBIN 9.7 GM/dL (11.7-16.9); MCH 27.4 pg (25.7-33.7); MCHC 31.9 g/dl (32.0-35.9); MEAN CELL VOLUME 85.9 fl (80-96); MEAN PLT VOLUME 7.8 fl (7.5-11.1); PLATELET COUNT 261 K/MM3 (134-434); RBC 3.55 M/mm3 (4.00-5.60); RDW 15.2 % (11.9-15.9); WHITE BLOOD COUNT 5.1 K/mm3 (4.0-10.0)
--- NOTE | 2017-12-16 15:36 | PN ---
Progress Note, Physician History of Present Illness: Pt seen and examined at bedside. He is awake and alert. He is tolerating HD. - Current Medication List Current Medications: Active Medications Amlodipine Besylate (Norvasc -) 10 mg PO DAILY [facility] Last Admin: 12/16/17 09:36 Dose: Not Given Calcitriol (Rocaltrol -) 0.5 mcg PO DAILY [facility] Last Admin: 12/16/17 09:36 Dose: Not Given Calcium Acetate (Phoslo -) 667 mg PO TIDCM [facility] Last Admin: 12/16/17 11:42 Dose: Not Given Carvedilol (Coreg -) 25 mg PO BID [facility] Last Admin: 12/16/17 09:36 Dose: Not Given Ferrous Sulfate (Feosol -) 325 mg PO BIDWM [facility] Last Admin: 12/16/17 08:46 Dose: Not Given Isosorbide Mononitrate (Imdur -) 30 mg PO DAILY [facility] Last Admin: 12/16/17 09:36 Dose: Not Given Pantoprazole Sodium (Protonix -) 40 mg PO DAILY [facility] Last Admin: 12/16/17 09:36 Dose: Not Given - Objective Vital Signs: Vital Signs Temperature 97.7 F 12/16/17 14:35 Pulse Rate 56 L 12/16/17 15:10 Respiratory Rate 18 12/16/17 15:10 Blood Pressure 125/82 12/16/17 15:10 O2 Sat by Pulse Oximetry (%) 98 12/16/17 08:50 Constitutional: Yes: Calm Eyes: Yes: Conjunctiva Clear HENT: Yes: Atraumatic Neck: Yes: Supple Cardiovascular: Yes: S1, S2 Respiratory: Yes: CTA Bilaterally Gastrointestinal: Yes: Normal Bowel Sounds, Soft Genitourinary: Yes: WNL Musculoskeletal: Yes: WNL Edema: No Neurological: Yes: Oriented Psychiatric: Yes: Oriented Labs: INR, PTT INR 1.00 (0.82-1.09) 12/15/17 11:38 Problem List - Problems (1) Dialysis catheter clot or failure Code(s): [id number] - (2) Anemia Code(s): D64.9 - ANEMIA, UNSPECIFIED (3) ESRD (end stage renal disease) Code(s): N18.6 - END STAGE RENAL DISEASE (4) Hypertension Code(s): I10 - ESSENTIAL (PRIMARY) HYPERTENSION Qualifiers: Assessment/Plan Current Medications Generic Name Dose Route Start Last Admin Trade Name Jenelle PRN Reason Stop Dose Admin Amlodipine Besylate 10 mg 12/16/17 10:00 12/16/17 09:36 Norvasc - PO Not Given DAILY [facility] Calcitriol 0.5 mcg 12/16/17 10:00 12/16/17 09:36 Rocaltrol - PO Not Given DAILY [facility] Calcium Acetate 667 mg 12/15/17 17:30 12/16/17 11:42 Phoslo - PO Not Given TIDCM [facility] Carvedilol 25 mg 12/15/17 22:00 12/16/17 09:36 Coreg - PO Not Given BID [facility] Ferrous Sulfate 325 mg 12/15/17 17:30 12/16/17 08:46 Feosol - PO Not Given BIDWM [facility] Isosorbide Mononitrate 30 mg 12/16/17 10:00 12/16/17 09:36 Imdur - PO Not Given DAILY [facility] Pantoprazole Sodium 40 mg 12/16/17 10:00 12/16/17 09:36 Protonix - PO Not Given DAILY [facility] Impression 1. ESRD 2. HTN 3. hypocalcemia 4. anemia 5. HD access malfunction Plan - will dialyze via old catheter now before pt goes to OR as he is schedule for about 5 pm - unable to get a flow greater than 300 with old catheter - can be discharged after HD and can report to outpt HD on - resume home meds - follow up pre-hd bmp Dr Ramos
[2017-12-16] MEDS ORDERED: LIDOCAINE HCL 1%, 10 MG/ML (20ML VIAL) ONE (15:44)
[2017-12-16 16:04] LABS: ALBUMIN 3.4 g/dl (3.4-5.0); ANION GAP 11 (8-16); BILIRUBIN,TOTAL 0.5 mg/dL (0.2-1.0); BLOOD UREA NITROGEN 62 mg/dL (7-18); CALCIUM 7.9 mg/dL (8.5-10.1); CHLORIDE 105 mmol/L (98-107); CO2 23 mmol/L (21-32); GLUCOSE,RANDOM 67 mg/dL (74-106); POTASSIUM 5.4 mmol/L (3.5-5.1); SGOT/AST 8 U/L (15-37); SGPT/ALT 8 U/L (12-78); SODIUM 139 mmol/L (136-145); TOT PROT 6.9 g/dl (6.4-8.2)
[2017-12-16 16:10] LABS: ALK PHOS 198 U/L (45-117)
[2017-12-16 16:20] LABS: CREATININE 14.3 mg/dL (0.7-1.3)
--- NOTE | 2017-12-16 17:25 | DS ---
Physical Examination Vital Signs: Vital Signs Temperature 97.7 F 12/16/17 14:35 Pulse Rate 64 12/16/17 17:10 Respiratory Rate 18 12/16/17 17:10 Blood Pressure 125/72 12/16/17 17:10 O2 Sat by Pulse Oximetry (%) 98 12/16/17 08:50 Constitutional: Yes: No Distress HENT: Yes: Atraumatic Neck: Yes: Supple Cardiovascular: Yes: Regular Rate and Rhythm Respiratory: Yes: CTA Bilaterally Gastrointestinal: Yes: Normal Bowel Sounds Extremities: Yes: WNL Neurological: Yes: Alert, Oriented Labs: CBC, BMP 12/16/17 14:30 12/16/17 14:30 Discharge Summary Reason For Visit: DIALYSIS CATHETER CLOT OR FAILURE Current Active Problems Dialysis catheter clot or failure (Acute) - Instructions - Home Medications Comprehensive Discharge Medication List: Ambulatory Orders Carvedilol 25 mg PO BID 03/24/17 Pantoprazole Sodium 40 mg PO DAILY 03/24/17 Amlodipine Besylate [Norvasc -] 10 mg PO DAILY #30 tablet 03/27/17 Calcium 500Mg/Vit-D 200 Units [Os-Justin 500+D -] 2 tab PO DAILY #60 tab 03/27/17 Calcium Acetate [Phoslo -] 667 mg PO TIDCM #90 bottle 03/27/17 Valsartan [Diovan] 160 mg PO BID #60 tablet 03/27/17 Calcitriol [Calcitriol -] 0.5 mcg PO DAILY #60 cap 05/26/17 Ferrous Sulfate [Feosol] 325 mg PO BIDWM #60 tab 05/26/17 Hydralazine HCl [Apresoline -] 100 mg PO TID #90 tablet 05/26/17 Nifedipine ER [Procardia XL -] 120 mg PO DAILY #120 tab 05/26/17 Isosorbide Mononitrate [Imdur -] 30 mg PO DAILY #30 tab 06/01/17 getting HD will get procedure done by dr shaver then can be dc
[2017-12-16] MEDS ORDERED: ceFAZolin SODIUM 1 GM VIAL IVPB ONE ×2 (18:25)
[2017-12-16] MEDS ORDERED: LIDOCAINE HCL 1%, 10 MG/ML (20ML VIAL) NR ONE ×2 (18:33)
--- NOTE | 2017-12-16 18:57 | OP ---
Operative Note - Note: Operative Date: 12/16/17 Pre-Operative Diagnosis: malfunctioning permacath Operation: permacath exchange Post-Operative Diagnosis: Same as Pre-op Surgeon: Jamal Lincoln Anesthesia: Fractional Estimated Blood Loss (mls): 5 Operative Report Dictated: Yes
[2017-12-16 19:38] VITALS: TEMP 97.8
[2017-12-16] MEDS ORDERED: ONDANSETRON 4 MG/2 ML VIAL IVPUSH PRN (19:49)
[2017-12-16 20:08] VITALS: BP 137/76; PULSE 69
--- NOTE | 2017-12-16 22:16 | OP ---
DATE OF OPERATION: 12/16/2017 PREOPERATIVE DIAGNOSIS: Malfunctioning PermCath. POSTOPERATIVE DIAGNOSIS: Malfunctioning PermCath. PROCEDURE: PermCath exchange. SURGEON: Jamal Ramos DO ANESTHESIA: Fractional. BLOOD LOSS: 5 mL. INDICATIONS: The patient is a 57-year-old male who came with a malfunctioning PermCath. He went for dialysis in the hospital today and they were having trouble dialyzing him through the catheter and had to reverse his lines. It was decided that he would need a PermCath exchange. DESCRIPTION: The patient was consented for the procedure, understanding all risks, benefits, alternatives. He was then taken to the operating room. Once in the operating room, he was laid on the operating table in supine manner. The area of the right neck and chest were prepped and draped in a sterile surgical manner. We then went ahead and injected 10 mL lidocaine 1% around the cuff of the catheter. We then used Metzenbaum scissors and dissected our cuff away from the skin and the catheter was freed. We then placed our 0.35 floppy guidewire under fluoroscopy into the catheter, and the catheter was removed. We then exchanged our gloves for sterility and prepped the wire with Betadine. We then went ahead and placed a new 23 PermCath over the guidewire into the vein under fluoroscopy. The guidewire was removed. We then went ahead and farhad back on each port of the catheter and there was good flow. Heparinized saline was injected, 2000 units of IV heparin was injected. The catheter was nice and smooth. There was no kink at the angle, and the catheter was located outside the right atrium. We then went ahead and took a 4-0 Biosyn and 2 simple stitches were placed at the exit site, 3-0 nylon used and the catheter was attached to the skin. A BioPatch, 4x4, Tegaderm were placed. Patient tolerated the procedure with no complication. Patient transferred to PACU in stable condition, where a portable chest x-ray will be obtained. JAMAL RAMOS DO [id number]
--- NOTE | 2017-12-18 08:51 | PATH ---
Surgical Pathology Report Patient Name: JAMSHID ABREU [facility]. Rec. #: [id number] /Age/Gender: 1960 (Age: 57) / M Account: [id number] Location: EMERGENCY ROOM Taken: 12/16/2017 Received: 12/17/2017 Reported: 12/18/2017 Physicians: Jamal Lincoln Specimen(s) Received REMOVAL PERMA CATHETER Clinical History ESRF, malfunction permacath Final Diagnosis CATHETER, PERMACATH, REMOVAL: CATHETER, PERMACATH. MACROSCOPIC DIAGNOSIS. Electronically Signed Ines Eason M.D. Gross Description Received fresh labeled "removed permacath," is a 35 cm in length double lumen catheter. No soft tissue is present. No sections are submitted, gross only. /12/17/201712/17/2017
[2017-12-18 14:11] LABS: HBSAG SCREEN Negative (Negative); HEP A AB, IGM Negative (Negative); HEP B CORE AB, TOT Negative (Negative)
== END 2017-12-16 20:09 | disposition home or self-care (01) ==
LOC: JER 10:07 → JERBED 13:08
PROVIDERS: ADMIT Internal Medicine; ATTEND Internal Medicine
PROC: 0J2TXYZ Change Other Device in Trunk Subcutaneous Tissue and Fascia, External Approach (ICD-10-PCS; principal; 2017-12-15)
DX: T82.41XA Breakdown (mechanical) of vascular dialysis catheter, initial encounter (principal); Y82.8 Other medical devices associated with adverse incidents; Y92.9 Unspecified place or not applicable; I12.0 Hypertensive chronic kidney disease with stage 5 chronic kidney disease or end stage renal disease; N18.6 End stage renal disease; Z99.2 Dependence on renal dialysis; K21.9 Gastro-esophageal reflux disease without esophagitis; D64.9 Anemia, unspecified
CPT/HCPCS: 36415; 71045-TC; 71046-TC; 76000-TC; 80053; 85025; 85027; 85610; 85730; 86704; 86706; 86708; 86803; 86850; 86900; 86901; 87340; 88300-TC; 93005; 93010; 94760; 99283-25; G0378; J0885; J1644

== ENCOUNTER 2018-02-09 13:06 | Inpatient (IN) | payer SELFPAY ==
[2018-02-09 13:22] VITALS: BMI 23.6
--- NOTE | 2018-02-09 13:49 | PDOC ---
History of Present Illness - General History Source: Patient Exam Limitations: No Limitations - History of Present Illness Initial Comments: 02/09/18 15:01 The patient is a 57 year old male, with a significant past medical history of hypertension, ESRD(on dialysis , , , last dialysis complete Friday), and GERD, who presents to the emergency department with right chest wall pain at permacath site for several days. The patient reports he was at dialysis 3 days ago, where he was advised to come to the ED for possible infection at permacath site. Patient reports associated pain at catheter site, with yellow discharge. Patient states he recently had his Permacath replaced on 12/16/17. Patient denies any recent fever, chills, cough, headache, or dizziness. He denies any associated shortness of breath, diaphoresis, or palpitations. He denies any abdominal pain, nausea, or vomiting. He denies any changes in urination. He denies any recent travel or sick contacts. Allergies: NKDA Past Surgical History: Right chest permacath Social History: Non smoker. No ETOH or recreational drug use. Pharmacist In Charge: Dr. Ramso Vascular Surgeon: Dr. Lincoln <Mulugeta Ferreira - Last Filed: 02/09/18 16:18> <Celestino Machuca - Last Filed: 02/09/18 16:34> - General Chief Complaint: Dialysis Shunt Problem Stated Complaint: DIALYSIS PERMACATH INFECTION Time Seen by Provider: 02/09/18 13:25 Past History <Mulugeta Ferreira - Last Filed: 02/09/18 16:18> - Past Medical History COPD: No DVT: No Dialysis: Yes () HTN: Yes - Immunization History Immunization Up to Date: Yes - Suicide/Smoking/Psychosocial Hx Smoking History: Never smoked Have you smoked in the past 12 months: No Hx Alcohol Use: No Drug/Substance Use Hx: No Substance Use Type: None Hx Substance Use Treatment: No <Celestino Machuca - Last Filed: 02/09/18 16:34> - Past Medical History Allergies/Adverse Reactions: Allergies Allergy/AdvReac Type Severity Reaction Status Date / Time No Known Allergies Allergy Verified 02/09/18 13:18 Home Medications: Ambulatory Orders Amlodipine Besylate [Norvasc -] 10 mg PO DAILY #30 tablet 04/27/17 Isosorbide Mononitrate [Imdur -] 30 mg PO DAILY #30 tab 06/01/17 Lisinopril 20 mg PO DAILY 02/09/18 Metoprolol Tartrate [Lopressor -] 25 mg PO BID 02/09/18 Review of Systems - Review of Systems Constitutional: No: Chills, Fever Respiratory: No: Shortness of Breath Cardiac (ROS): No: Chest Pain ABD/GI: No: Diarrhea, Vomiting Integumentary: Yes: See HPI All Other Systems: Reviewed and Negative <Celestino Machuca - Last Filed: 02/09/18 16:34> *Physical Exam - Vital Signs Last Vital Signs Temp Pulse Resp BP Pulse Ox 97.9 F 73 19 163/106 100 02/09/18 13:19 02/09/18 13:19 02/09/18 13:19 02/09/18 13:19 02/09/18 13:19 - Physical Exam Comments: 02/09/18 15:01 GENERAL: The patient is awake, alert, and fully oriented, in no acute distress. HEAD:Normal with no signs of trauma. EYES: Scleral icterus. Pupils equal, round and reactive to light, extraocular movements intact, conjunctiva clear. NECK: Normal range of motion, supple without lymphadenopathy, JVD, or masses LUNGS: Breath sounds equal, clear to auscultation bilaterally. No wheeze/ crackles. HEART: Regular rate and rhythm, normal S1 and S2 without murmur or rub. CHEST WALL: Erythema and soft tissue edema around right chest catheter site, with purulent drainage, but not actively bleeding. Mild distended tenderness to palpation without crepitus. EXTREMITIES: Normal range of motion, no edema. NEUROLOGICAL: Normal speech, normal gait. PSYCH: Normal mood, normal affect. <Mulugeta Ferreira - Last Filed: 02/09/18 16:18> - Vital Signs Last Vital Signs Temp Pulse Resp BP Pulse Ox 97.9 F 73 19 163/106 100 02/09/18 13:19 02/09/18 13:19 02/09/18 13:19 02/09/18 13:19 02/09/18 13:19 <Celestino Machuca - Last Filed: 02/09/18 16:34> Heart Score/ECG Review #1 ECG reviewed & interpreted by me at: 14:52 General ECG Interpretation: Sinus Rhythm, Normal Rate (62), Normal Intervals ( qtc 410, qrs 64, tall T V2-V4), No acute ischemic changes <Celestino Machuca - Last Filed: 02/09/18 16:34> ED Treatment Course - LABORATORY CBC & Chemistry Diagram: 02/09/18 14:17 02/09/18 14:17 - ADDITIONAL ORDERS Additional order review: Laboratory Results 02/09/18 02/09/18 14:17 14:17 PT with INR 12.40 H INR 1.10 PTT (Actin FS) 32.1 Sodium 135 L Potassium 5.0 Chloride 102 Carbon Dioxide 25 Anion Gap 8 BUN 45 H D Creatinine 13.3 H* Creat Clearance w eGFR 3.92 Random Glucose 126 H D Calcium 6.9 L* Total Bilirubin 0.4 AST 4 L D ALT < 6 L D Alkaline Phosphatase 140 H D Total Protein 6.8 Albumin 3.5 02/09/18 14:17 RBC 4.02 MCV 87.2 MCHC 33.1 RDW 16.0 H MPV 7.2 L Neutrophils % 61.3 D Lymphocytes % 24.3 D Monocytes % 9.0 Eosinophils % 5.0 H Basophils % 0.4 - Medications Given in the ED: ED Medications Discontinued Medications Generic Name Dose Route Start Last Admin Trade Name Freq PRN Reason Stop Dose Admin Vancomycin HCl 1,000 mg/ 250 mls @ 250 mls/hr 02/09/18 13:54 02/09/18 14:22 Dextrose IVPB 02/09/18 14:53 250 mls/hr ONCE ONE Administration Protocol <Mulugeta Ferreria - Last Filed: 02/09/18 16:18> - LABORATORY CBC & Chemistry Diagram: 02/09/18 14:17 02/09/18 14:17 <Celestino Machuca - Last Filed: 02/09/18 16:34> Medical Decision Making - Medical Decision Making 02/09/18 15:04 First call placed to Dr. Ramos at 15:06. Awaiting call back. First call placed to Dr. Lincoln at 15:08. Awaiting call back. First call placed to Dr. Apple at 16:19. Case discussed at this time. <Mulugeta Ferreira - Last Filed: 02/09/18 16:18> - Medical Decision Making 02/09/18 14:55 A portion of this note was documented by scribe services under my direction. I have reviewed the details of the note, within reason, and agree with the documentation with the following case summary and management plan written by me. 57-year-old male with history of hypertension, end-stage renal disease on Friday//Friday dialysis (last dialyzed on Friday as scheduled) presents per his dialysis center with infected right chest catheter. Patient has had pain around the site for a few weeks, has noted purulent discharge from the area, was diagnosed with an ear infection on Friday but cannot come to the emergency department so he comes today. Catheter was replaced in December after malfunctioning, no complications otherwise. Afebrile. Well-appearing, seated in stretcher Redness and soft tissue swelling around right chest catheter site, positive purulence from the site, some distended tenderness to palpation without crepitus. 57-year-old male with infected right chest catheter site, stable vital signs. Sent from dialysis. Check labs, EKG Chest x-ray Consultation from nephrology and Dr. Lincoln, who replaced the catheter in December. Empirically start antibiotics Likely admission 02/09/18 16:33 clinically unchanged, received abx. lytes at baseline, K 5.0 Dr. Lincoln to see patient. Accepted for admission by Dr. apple. <Celestino Machuca - Last Filed: 02/09/18 16:34> *DC/Admit/Observation/Transfer <Mulugeta Ferreira - Last Filed: 02/09/18 16:18> - Discharge Dispostion Admit: Yes <Celestino Machuca - Last Filed: 02/09/18 16:34> Diagnosis at time of Disposition: ESRD (end stage renal disease) Infection of dialysis vascular access Qualifiers: Encounter type: initial encounter Qualified Code(s): T82.7XXA - Infection and inflammatory reaction due to other cardiac and vascular devices, implants and grafts, initial encounter
[2018-02-09] MEDS ORDERED: PIPERACIL/TAZOB 3.375 GM 3.375 GM/50 ML PREMIX IVPB ONE (13:54)
[2018-02-09] MEDS ORDERED: VANCOMYCIN 1,000 MG in DEXTROSE 5%-WATER - 250 ML IVPB ONE (13:54)
[2018-02-09] MEDS ORDERED: VANCOMYCIN 1 GRAM (PRE-DOCKED) 1,000 MG/250 ML BAG IVPB ONE (14:18)
[2018-02-09] MEDS ORDERED: PIPERACILLIN/TAZOB 2.25 GM/50 ML PREMIX BAG IVPB ONE (14:22)
[2018-02-09 14:24] LABS: BASO % 0.4 % (0-2.0); HEMATOCRIT 35.1 % (35.4-49); HEMOGLOBIN 11.6 GM/dL (11.7-16.9); LYMPH % 24.3 % (8-40); MCH 28.8 pg (25.7-33.7); MCHC 33.1 g/dl (32.0-35.9); MEAN CELL VOLUME 87.2 fl (80-96); MEAN PLT VOLUME 7.2 fl (7.5-11.1); NEUT % 61.3 % (42.8-82.8); PLATELET COUNT 222 K/MM3 (134-434); RBC 4.02 M/mm3 (4.00-5.60); WHITE BLOOD COUNT 6.3 K/mm3 (4.0-10.0)
[2018-02-09] MEDS ORDERED: PIPERACILLIN/TAZOB 2.25 GM 2.25 GM in DEXTROSE 5%-WATER - 50 ML IVPB ONE (14:45)
[2018-02-09 14:48] LABS: INR 1.1 (0.82-1.09); PROTHROMBIN TIME (PATIENT) 12.4 SEC (9.98-11.88)
[2018-02-09 14:49] LABS: ALBUMIN 3.5 g/dl (3.4-5.0); ANION GAP 8 (8-16); BLOOD UREA NITROGEN 45 mg/dL (7-18); CHLORIDE 102 mmol/L (98-107); CO2 25 mmol/L (21-32); GLUCOSE,RANDOM 126 mg/dL (74-106); SGPT/ALT < 6 U/L (12-78); SODIUM 135 mmol/L (136-145)
[2018-02-09 14:50] LABS: ACTIVATED PTT 32.1 SECONDS (26.9-34.4)
[2018-02-09 14:56] LABS: ALK PHOS 140 U/L (45-117); BILIRUBIN,TOTAL 0.4 mg/dL (0.2-1.0); TOT PROT 6.8 g/dl (6.4-8.2)
[2018-02-09 14:57] LABS: SGOT/AST 4 U/L (15-37)
[2018-02-09 14:59] LABS: CALCIUM 6.9 mg/dL (8.5-10.1); CREATININE 13.3 mg/dL (0.7-1.3)
[2018-02-09] MEDS ORDERED: PIPERACILLIN/TAZOBACTAM 2.25 GM VIAL IVPB ONE (14:59)
--- NOTE | 2018-02-09 15:44 | EKG ---
Test Reason : Blood Pressure : / mmHG Vent. Rate : 062 BPM Atrial Rate : 062 BPM P-R Int : 164 ms QRS Dur : 064 ms QT Int : 404 ms P-R-T Axes : 063 -30 063 degrees QTc Int : 410 ms NORMAL SINUS RHYTHM LEFT AXIS DEVIATION ABNORMAL ECG WHEN COMPARED WITH ECG OF 15-DEC-2017 11:31, QRS AXIS SHIFTED LEFT Confirmed by TALISHA MANNING MD ([id number]) on 02/09/2018 3:43:53 PM Referred By: Confirmed By:TALISHA MANNING MD
--- NOTE | 2018-02-09 18:23 | HP ---
Admitting History and Physical - Primary Care Physician PCP: Campos Adame - Admission History of Present Illness: 57 year old male, with a significant past medical history of hypertension, ESRD( on dialysis T, , S, last dialysis complete Friday), and GERD, who presents to the emergency department with right chest wall pain at permacath site for several days. The patient reports he was at dialysis 3 days ago, where he was advised to come to the ED for possible infection at permacath site. Patient reports associated pain at catheter site, with yellow discharge. Patient states he recently had his Permacath replaced on 12/16/17. Patient denies any recent fever, chills, cough, headache, or dizziness. He denies any associated shortness of breath, diaphoresis, or palpitations. He denies any abdominal pain , nausea, or vomiting. He denies any changes in urination. He denies any recent travel or sick contacts. - Past Medical History Cardiovascular: Yes: HTN Gastrointestinal: Yes: GERD Renal/: Yes: Renal Failure, Hemodialysis - Smoking History Smoking history: Never smoked Have you smoked in the past 12 months: No - Alcohol/Substance Use Hx Alcohol Use: No Home Medications - Allergies Allergies/Adverse Reactions: Allergies Allergy/AdvReac Type Severity Reaction Status Date / Time No Known Allergies Allergy Verified 02/09/18 13:18 - Home Medications Home Medications: Ambulatory Orders Amlodipine Besylate [Norvasc -] 10 mg PO DAILY #30 tablet 03/27/17 Isosorbide Mononitrate [Imdur -] 30 mg PO DAILY #30 tab 06/01/17 Lisinopril 20 mg PO DAILY 02/09/18 Metoprolol Tartrate [Lopressor -] 25 mg PO BID 02/09/18 Physical Examination Vital Signs: Vital Signs Temperature 97.9 F 02/09/18 13:19 Pulse Rate 59 L 02/09/18 17:42 Respiratory Rate 18 02/09/18 17:42 Blood Pressure 183/96 02/09/18 17:42 O2 Sat by Pulse Oximetry (%) 100 02/09/18 15:12 Constitutional: Yes: No Distress HENT: Yes: Atraumatic Neck: Yes: Supple Cardiovascular: Yes: Regular Rate and Rhythm Respiratory: Yes: CTA Bilaterally Gastrointestinal: Yes: Normal Bowel Sounds Extremities: Yes: WNL, Other (vascular acess infection) Neurological: Yes: Alert, Oriented Labs: CBC, BMP 02/09/18 14:17 02/09/18 14:17 Problem List - Problems (1) ESRD (end stage renal disease) Assessment/Plan: on Hd stable Code(s): N18.6 - END STAGE RENAL DISEASE (2) Infection of dialysis vascular access Assessment/Plan: on iv abx vascular consult Code(s): T82.7XXA - INFECT/INFLM REACT D/T OTH CARDI/VASC DEV/IMPLNT/GRFT, INIT Qualifiers: Encounter type: initial encounter Qualified Code(s): T82.7XXA - Infection and inflammatory reaction due to other cardiac and vascular devices, implants and grafts, initial encounter (3) Hypertension Assessment/Plan: on meds stable Code(s): I10 - ESSENTIAL (PRIMARY) HYPERTENSION Qualifiers: Assessment/Plan Laboratory Tests 02/09/18 02/09/18 02/09/18 14:02 14:17 14:17 WBC 6.3 RBC 4.02 Hgb 11.6 L D Hct 35.1 L D MCV 87.2 MCH 28.8 MCHC 33.1 RDW 16.0 H Plt Count 222 MPV 7.2 L Neutrophils % 61.3 D Lymphocytes % 24.3 D Monocytes % 9.0 Eosinophils % 5.0 H Basophils % 0.4 PT with INR INR PTT (Actin FS) Sodium 135 L Potassium 5.0 Chloride 102 Carbon Dioxide 25 Anion Gap 8 BUN 45 H D Creatinine 13.3 H* Creat Clearance w eGFR 3.92 Random Glucose 126 H D Calcium 6.9 L* Total Bilirubin 0.4 AST 4 L D ALT < 6 L D Alkaline Phosphatase 140 H D Total Protein 6.8 Albumin 3.5 Blood Type B POSITIVE Antibody Screen Negative 02/09/18 02/10/18 02/10/18 14:17 06:30 07:00 WBC 5.8 RBC 3.89 L Hgb 11.3 L Hct 33.9 L MCV 87.0 MCH 28.9 MCHC 33.3 RDW 15.6 Plt Count 234 MPV 7.4 L Neutrophils % 53.5 Lymphocytes % 27.2 Monocytes % 10.1 Eosinophils % 8.0 H Basophils % 1.2 PT with INR 12.40 H INR 1.10 PTT (Actin FS) 32.1 Sodium 136 Potassium 5.9 H Chloride 103 Carbon Dioxide 21 Anion Gap 12 BUN 53 H Creatinine 14.8 H* Creat Clearance w eGFR 3.46 Random Glucose 70 L D Calcium 6.9 L* Total Bilirubin 0.4 AST 7 L D ALT < 6 L Alkaline Phosphatase 131 H Total Protein 6.2 L Albumin 3.2 L Blood Type Antibody Screen Active Medications Generic Name Dose Route Start Last Admin Trade Name Freq PRN Reason Stop Dose Admin Amlodipine Besylate 10 mg 02/10/18 10:00 02/10/18 10:26 Norvasc - PO 10 mg DAILY [facility]TER Administration Heparin Sodium (Porcine) 5,000 unit 02/09/18 22:00 02/10/18 10:26 Heparin - SQ Not Given BID WALTER Piperacillin Sod/Tazobactam 50 mls @ 100 mls/hr 02/10/18 15:00 02/10/18 17:26 Sod 2.25 gm/ Dextrose IVPB 100 mls/hr Q8H-IV WALTER Administration Protocol Isosorbide Mononitrate 30 mg 02/10/18 10:00 02/10/18 10:26 Imdur - PO 30 mg DAILY WALTER Administration Lisinopril 20 mg 02/10/18 10:00 02/10/18 10:26 Prinivil PO 20 mg DAILY WALTER Administration Metoprolol Tartrate 25 mg 02/09/18 22:00 02/10/18 10:26 Lopressor - PO 25 mg BID WALTER Administration
--- NOTE | 2018-02-09 18:49 | CONSULT ---
Consult Consult Specialty:: Nephrology Reason for Consultation:: ESRD - History of Present Illness Chief Complaint: sent in for catheter malfunction History of Present Illness: Pt is a 57 year old male with pmhx of esrd, htn and anemia who I sent to the ER for catheter malfunction. He had pain and erythema at the catheter site. He denies fevers or chills. He denies chest pain or palpitations. He is on a TTS schedule. He is awake and alert. - History Source History Provided By: Patient - Past Medical History Cardio/Vascular: Yes: HTN Gastrointestinal: Yes: GERD Renal/: Yes: Renal Failure, Hemodialysis - Alcohol/Substance Use Hx Alcohol Use: No - Smoking History Smoking history: Never smoked Have you smoked in the past 12 months: No Home Medications - Allergies Allergies/Adverse Reactions: Allergies Allergy/AdvReac Type Severity Reaction Status Date / Time No Known Allergies Allergy Verified 02/09/18 13:18 - Home Medications Home Medications: Ambulatory Orders Amlodipine Besylate [Norvasc -] 10 mg PO DAILY #30 tablet 03/27/17 Isosorbide Mononitrate [Imdur -] 30 mg PO DAILY #30 tab 06/01/17 Lisinopril 20 mg PO DAILY 02/09/18 Metoprolol Tartrate [Lopressor -] 25 mg PO BID 02/09/18 Family Disease History - Family Disease History Family History: Denies Review of Systems - Review of Systems Constitutional: reports: No Symptoms Eyes: reports: No Symptoms HENT: reports: No Symptoms Neck: reports: No Symptoms Cardiovascular: reports: No Symptoms Respiratory: reports: No Symptoms Gastrointestinal: reports: No Symptoms Genitourinary: reports: No Symptoms Musculoskeletal: reports: No Symptoms Integumentary: reports: No Symptoms Neurological: reports: No Symptoms Endocrine: reports: No Symptoms Hematology/Lymphatic: reports: No Symptoms Psychiatric: reports: No Symptoms Physical Exam Vital Signs: Vital Signs Temperature 98.3 F 02/09/18 18:44 Pulse Rate 64 02/09/18 18:44 Respiratory Rate 20 02/09/18 18:44 Blood Pressure 158/104 02/09/18 18:44 O2 Sat by Pulse Oximetry (%) 100 02/09/18 15:12 Constitutional: Yes: Calm Eyes: Yes: Conjunctiva Clear HENT: Yes: Atraumatic Cardiovascular: Yes: S1, S2 Respiratory: Yes: CTA Bilaterally Gastrointestinal: Yes: Normal Bowel Sounds, Soft Renal/: Yes: WNL Musculoskeletal: Yes: WNL Edema: No Neurological: Yes: Oriented Psychiatric: Yes: Oriented Labs: CBC, BMP 02/09/18 14:17 02/09/18 14:17 Laboratory Tests 02/09/18 02/09/18 14:17 14:17 Hgb 11.6 L D Hct 35.1 L D Sodium 135 L Potassium 5.0 BUN 45 H D Creatinine 13.3 H* Imaging - Results Chest X-ray: Report Reviewed Problem List - Problems (1) ESRD (end stage renal disease) Code(s): N18.6 - END STAGE RENAL DISEASE (2) Anemia Code(s): D64.9 - ANEMIA, UNSPECIFIED Assessment/Plan Current Medications Generic Name Dose Route Start Last Admin Trade Name Freq PRN Reason Stop Dose Admin Amlodipine Besylate 10 mg 02/10/18 10:00 Norvasc - PO DAILY [facility] Heparin Sodium (Porcine) 5,000 unit 02/09/18 22:00 Heparin - SQ BID [facility] Isosorbide Mononitrate 30 mg 02/10/18 10:00 Imdur - PO DAILY WALTER Lisinopril 20 mg 02/10/18 10:00 Prinivil PO DAILY [facility] Metoprolol Tartrate 25 mg 02/09/18 22:00 Lopressor - PO BID [facility] Impression 1. ESRD 2. HTN 3. HD access malfunction 4. anemia Plan - vascular eval for catheter change and for av fistula - resume home meds - will arrange for HD in am - discussed with ER - discussed with vascular Dr Ramos
--- NOTE | 2018-02-09 19:13 | PN ---
Progress Note (short form) - Note Progress Note: Vascular Surgery Pt seen and examined. Cath site looks infected with drainage. Pt can get HD blanche am and then I can pull cath. On I can place PC in left chest and place AVF in right arm. Pt is left handed. No bp , blood draws from left arm. Will order vein mapping. Jamal Lincoln DO
[2018-02-09] MEDS: HEPARIN NA (PORCINE) 5,000 UNITS/ML 1ML VIAL SQ SCH (21:47)
[2018-02-09] MEDS: METOPROLOL TARTRATE 25 MG TABLET (FP) PO SCH (21:47)
[2018-02-10 08:20] LABS: CHLORIDE 103 mmol/L (98-107); POTASSIUM 5.9 mmol/L (3.5-5.1); SODIUM 136 mmol/L (136-145)
[2018-02-10 08:31] LABS: ALBUMIN 3.2 g/dl (3.4-5.0); ALK PHOS 131 U/L (45-117); ANION GAP 12 (8-16); BILIRUBIN,TOTAL 0.4 mg/dL (0.2-1.0); BLOOD UREA NITROGEN 53 mg/dL (7-18); CO2 21 mmol/L (21-32); GLUCOSE,RANDOM 70 mg/dL (74-106); SGOT/AST 7 U/L (15-37); SGPT/ALT < 6 U/L (12-78); TOT PROT 6.2 g/dl (6.4-8.2)
[2018-02-10 08:31] LABS: BASO % 1.2 % (0-2.0); HEMATOCRIT 33.9 % (35.4-49); HEMOGLOBIN 11.3 GM/dL (11.7-16.9); LYMPH % 27.2 % (8-40); MCH 28.9 pg (25.7-33.7); MCHC 33.3 g/dl (32.0-35.9); MEAN PLT VOLUME 7.4 fl (7.5-11.1); MONO % 10.1 % (3.8-10.2); NEUT % 53.5 % (42.8-82.8); PLATELET COUNT 234 K/MM3 (134-434); RBC 3.89 M/mm3 (4.00-5.60); RDW 15.6 % (11.9-15.9); WHITE BLOOD COUNT 5.8 K/mm3 (4.0-10.0)
[2018-02-10 08:59] LABS: CREATININE 14.8 mg/dL (0.7-1.3)
[2018-02-10 09:00] LABS: CALCIUM 6.9 mg/dL (8.5-10.1)
[2018-02-10] MEDS: METOPROLOL TARTRATE 25 MG TABLET (FP) PO SCH ×2 (10:26→21:40)
[2018-02-10] MEDS: LISINOPRIL 20 MG TABLET (FP) PO SCH (10:26)
[2018-02-10] MEDS: amLODIPine BESYLATE 10 MG TABLET (FP) PO SCH (10:26)
[2018-02-10] MEDS: ISOSORBIDE MONONITRATE 30 MG TAB.SR.24H (FP) PO SCH (10:26)
[2018-02-10] MEDS: HEPARIN NA (PORCINE) 5,000 UNITS/ML 1ML VIAL SQ SCH ×2 (10:26→21:40)
--- NOTE | 2018-02-10 13:45 | CON.ID ---
Consult Consult Specialty:: infectious diseases Reason for Consultation:: permacath infection/pus - History of Present Illness Chief Complaint: fever chills History of Present Illness: 57 year old male, with a significant past medical history of hypertension, ESRD( on dialysis T, , S, last dialysis complete Friday), and GERD, admitted because of right chest wall pain at permacath site for several days. The patient reports he was at dialysis 3 days ago, where he was advised to come to the ED for possible infection at permacath site. Patient reports associated pain at catheter site, with yellow discharge. Patient states he recently had his Permacath replaced on 12/16/17. patient mentions that he had chills and fevers on examining the permacath patient has [place] pus through the catheter patient has received abx and currently feels much better - History Source History Provided By: Patient Limitations to Obtaining History: No Limitations - Past Medical History Cardio/Vascular: Yes: HTN Gastrointestinal: Yes: GERD Renal/: Yes: Renal Failure, Hemodialysis - Alcohol/Substance Use Hx Alcohol Use: No - Smoking History Smoking history: Never smoked Have you smoked in the past 12 months: No Home Medications - Allergies Allergies/Adverse Reactions: Allergies Allergy/AdvReac Type Severity Reaction Status Date / Time No Known Allergies Allergy Verified 02/09/18 13:18 - Home Medications Home Medications: Ambulatory Orders Amlodipine Besylate [Norvasc -] 10 mg PO DAILY #30 tablet 03/27/17 Isosorbide Mononitrate [Imdur -] 30 mg PO DAILY #30 tab 06/01/17 Lisinopril 20 mg PO DAILY 02/09/18 Metoprolol Tartrate [Lopressor -] 25 mg PO BID 02/09/18 Review of Systems - Review of Systems Constitutional: reports: Chills, Fever Eyes: reports: No Symptoms HENT: reports: No Symptoms Cardiovascular: reports: No Symptoms Respiratory: reports: No Symptoms Gastrointestinal: reports: No Symptoms Genitourinary: reports: No Symptoms Musculoskeletal: reports: No Symptoms Integumentary: reports: Other (pain at the permacth site) Neurological: reports: No Symptoms Endocrine: reports: No Symptoms Hematology/Lymphatic: reports: No Symptoms Psychiatric: reports: No Symptoms Physical Exam Vital Signs: Vital Signs Temperature 99.3 F 02/10/18 09:00 Pulse Rate 71 02/10/18 09:00 Respiratory Rate 18 03/13/18 09:00 Blood Pressure 170/100 02/10/18 09:00 O2 Sat by Pulse Oximetry (%) 100 02/09/18 21:00 Constitutional: Yes: No Distress, Calm Eyes: Yes: Conjunctiva Clear, EOM Intact HENT: Yes: Other Neck: Yes: Supple, Trachea Midline Cardiovascular: Yes: Regular Rate and Rhythm Respiratory: Yes: Regular, CTA Bilaterally Gastrointestinal: Yes: Normal Bowel Sounds, Soft Musculoskeletal: Yes: WNL Extremities: Yes: WNL Integumentary: Yes: Other Wound/Incision: Yes: Draining (pus from the permacath site) Neurological: Yes: Alert, Oriented Psychiatric: Yes: Alert, Oriented Labs: CBC, BMP 02/10/18 06:30 02/10/18 07:00 Imaging - Results Chest X-ray: Report Reviewed, Image Reviewed Ultrasound: Report Reviewed, Image Reviewed Assessment/Plan Problem List - Problems (1) ESRD (end stage renal disease) Code(s): N18.6 - END STAGE RENAL DISEASE (2) Infection of dialysis vascular access Code(s): T82.7XXA - INFECT/INFLM REACT D/T OTH CARDI/VASC DEV/IMPLNT/GRFT, INIT Qualifiers: Encounter type: initial encounter Qualified Code(s): T82.7XXA - Infection and inflammatory reaction due to other cardiac and vascular devices, implants and grafts, initial encounter (3) Hypertension Assessment/Plan: on meds stable Code(s): I10 - ESSENTIAL (PRIMARY) HYPERTENSION Qualifiers: plan will continue broad spectrum coverage catheter must come out await for blood cx and wound cx depending on that further management rest continue current management
--- NOTE | 2018-02-10 14:54 | PN ---
Progress Note, Physician History of Present Illness: Pt seen and examined at bedside. He is currently getting HD. - Current Medication List Current Medications: Active Medications Amlodipine Besylate (Norvasc -) 10 mg PO DAILY [facility] Last Admin: 02/10/18 10:26 Dose: 10 mg Heparin Sodium (Porcine) (Heparin -) 5,000 unit SQ BID [facility] Last Admin: 02/10/18 10:26 Dose: Not Given Piperacillin Sod/Tazobactam (Sod 2.25 gm/ Dextrose) 50 mls @ 100 mls/hr IVPB Q8H-IV [facility] PRN Reason: Protocol Isosorbide Mononitrate (Imdur -) 30 mg PO DAILY [facility] Last Admin: 02/10/18 10:26 Dose: 30 mg Lisinopril (Prinivil) 20 mg PO DAILY [facility] Last Admin: 02/10/18 10:26 Dose: 20 mg Metoprolol Tartrate (Lopressor -) 25 mg PO BID [facility] Last Admin: 02/10/18 10:26 Dose: 25 mg - Objective Vital Signs: Vital Signs Temperature 98.1 F 02/10/18 11:45 Pulse Rate 57 L 02/10/18 14:20 Respiratory Rate 18 02/10/18 14:20 Blood Pressure 165/98 02/10/18 14:20 O2 Sat by Pulse Oximetry (%) 100 02/09/18 21:00 Constitutional: Yes: Calm Eyes: Yes: Conjunctiva Clear HENT: Yes: Atraumatic Cardiovascular: Yes: S1, S2 Respiratory: Yes: CTA Bilaterally Gastrointestinal: Yes: Soft Genitourinary: Yes: WNL Extremities: Yes: WNL Edema: No Neurological: Yes: Oriented Psychiatric: Yes: Oriented Labs: CBC, BMP 02/10/18 06:30 02/10/18 07:00 INR, PTT INR 1.10 (0.82-1.09) 02/09/18 14:17 Problem List - Problems (1) ESRD (end stage renal disease) Code(s): N18.6 - END STAGE RENAL DISEASE (2) Anemia Code(s): D64.9 - ANEMIA, UNSPECIFIED Assessment/Plan Current Medications Generic Name Dose Route Start Last Admin Trade Name Freq PRN Reason Stop Dose Admin Amlodipine Besylate 10 mg 02/10/18 10:00 02/10/18 10:26 Norvasc - PO 10 mg DAILY [facility] Administration Heparin Sodium (Porcine) 5,000 unit 02/09/18 22:00 02/10/18 10:26 Heparin - SQ Not Given BID [facility] Piperacillin Sod/Tazobactam 50 mls @ 100 mls/hr 02/10/18 15:00 Sod 2.25 gm/ Dextrose IVPB Q8H-IV [facility] Protocol Isosorbide Mononitrate 30 mg 02/10/18 10:00 02/10/18 10:26 Imdur - PO 30 mg DAILY [facility] Administration Lisinopril 20 mg 02/10/18 10:00 02/10/18 10:26 Prinivil PO 20 mg DAILY [facility] Administration Metoprolol Tartrate 25 mg 02/09/18 22:00 02/10/18 10:26 Lopressor - PO 25 mg BID [facility] Administration Impression 1. ESRD 2. HTN 3. HD access malfunction 4. anemia 5. hyperkalemia Plan - follow cultures - permacath to be removed - pt will also need fistula - vascular follow up - potassium treated with HD Dr Ramos
[2018-02-10] MEDS: PIPERACILLIN/TAZOB 2.25 GM 2.25 GM in DEXTROSE 5%-WATER - 50 ML IVPB SCH (17:26)
--- NOTE | 2018-02-10 18:03 | PN ---
Progress Note, Physician - Current Medication List Current Medications: Active Medications Amlodipine Besylate (Norvasc -) 10 mg PO DAILY [facility] Last Admin: 02/10/18 10:26 Dose: 10 mg Heparin Sodium (Porcine) (Heparin -) 5,000 unit SQ BID [facility] Last Admin: 02/10/18 10:26 Dose: Not Given Piperacillin Sod/Tazobactam (Sod 2.25 gm/ Dextrose) 50 mls @ 100 mls/hr IVPB Q8H-IV [facility] PRN Reason: Protocol Last Admin: 02/10/18 17:26 Dose: 100 mls/hr Isosorbide Mononitrate (Imdur -) 30 mg PO DAILY [facility] Last Admin: 02/10/18 10:26 Dose: 30 mg Lisinopril (Prinivil) 20 mg PO DAILY [facility] Last Admin: 02/10/18 10:26 Dose: 20 mg Metoprolol Tartrate (Lopressor -) 25 mg PO BID [facility] Last Admin: 02/10/18 10:26 Dose: 25 mg - Objective Vital Signs: Vital Signs Temperature 98.1 F 02/10/18 11:45 Pulse Rate 62 02/10/18 16:30 Respiratory Rate 18 02/10/18 16:30 Blood Pressure 167/106 02/10/18 16:30 O2 Sat by Pulse Oximetry (%) 100 02/09/18 21:00 Constitutional: Yes: No Distress HENT: Yes: Atraumatic Neck: Yes: Supple Cardiovascular: Yes: Regular Rate and Rhythm Respiratory: Yes: CTA Bilaterally Gastrointestinal: Yes: Normal Bowel Sounds Extremities: Yes: WNL Edema: No Peripheral Pulses WNL: Yes Neurological: Yes: Alert, Oriented Labs: CBC, BMP 02/10/18 06:30 02/10/18 07:00 INR, PTT INR 1.10 (0.82-1.09) 02/09/18 14:17 Problem List - Problems (1) ESRD (end stage renal disease) Assessment/Plan: on Hd stable Code(s): N18.6 - END STAGE RENAL DISEASE (2) Infection of dialysis vascular access Assessment/Plan: on iv abx vascular consult Code(s): T82.7XXA - INFECT/INFLM REACT D/T OTH CARDI/VASC DEV/IMPLNT/GRFT, INIT Qualifiers: Encounter type: initial encounter Qualified Code(s): T82.7XXA - Infection and inflammatory reaction due to other cardiac and vascular devices, implants and grafts, initial encounter (3) Hypertension Assessment/Plan: on meds stable Code(s): I10 - ESSENTIAL (PRIMARY) HYPERTENSION Qualifiers:
[2018-02-11] MEDS: PIPERACILLIN/TAZOB 2.25 GM 2.25 GM in DEXTROSE 5%-WATER - 50 ML IVPB SCH ×3 (02:45→17:32)
--- NOTE | 2018-02-11 09:05 | PN ---
Progress Note (short form) - Note Progress Note: Vascular surgery PC removed today. Blood cx's at 24 hours negative so far[address] place right AVF blanche and permacath to left chest. NPO past midnight. Jamal Lincoln DO
--- NOTE | 2018-02-11 09:24 | PROC ---
Procedure Note Procedure: Right chest permacath removal: A time out with the nursing staff was completed after obtaining consent for the procedure. The area was cleaned with betadine, sutures removed holding the catheter in place. The line was removed easily with gentle pullilng. No dissection was needed. There was purulent material on the catheter. A clean, dry gauze was applied and the patient HOB was elevated. The tip was sent for culture.
[2018-02-11] MEDS ORDERED: PT OWN MED DRAWER 7, Y5N ONE (10:23)
[2018-02-11] MEDS: amLODIPine BESYLATE 10 MG TABLET (FP) PO SCH (10:25)
[2018-02-11] MEDS: HEPARIN NA (PORCINE) 5,000 UNITS/ML 1ML VIAL SQ SCH ×2 (10:26→21:24)
[2018-02-11] MEDS: LISINOPRIL 20 MG TABLET (FP) PO SCH (10:26)
[2018-02-11] MEDS: ISOSORBIDE MONONITRATE 30 MG TAB.SR.24H (FP) PO SCH (10:26)
[2018-02-11] MEDS: METOPROLOL TARTRATE 25 MG TABLET (FP) PO SCH ×2 (10:26→21:24)
--- NOTE | 2018-02-11 12:09 | SPA.PREOP ---
- PRE-OP NOTE Dx: ESRD on HD Planned Procedure: Insertion of permacatheter (LEFT chest) and creation of RUE AVF Surgeon: Jamal Lincoln Consent: To be obtained by surgeon after risks, benefits and alternatives explained to patient. Last Vital Signs Temp Pulse Resp BP Pulse Ox 98.3 F 71 20 156/99 100 02/11/18 09:00 02/11/18 09:00 02/11/18 09:00 02/11/18 09:00 02/11/18 09:00 Lab Results WBC 5.8 K/mm3 (4.0-10.0) 02/10/18 06:30 RBC 3.89 M/mm3 (4.00-5.60) L 02/10/18 06:30 Hgb 11.3 GM/dL (11.7-16.9) L 02/10/18 06:30 Hct 33.9 % (35.4-49) L 02/10/18 06:30 MCV 87.0 fl (80-96) 02/10/18 06:30 MCHC 33.3 g/dl (32.0-35.9) 02/10/18 06:30 RDW 15.6 % (11.9-15.9) 02/10/18 06:30 Plt Count 234 K/MM3 (134-434) 02/10/18 06:30 Sodium 136 mmol/L (136-145) 02/10/18 07:00 Potassium 5.9 mmol/L (3.5-5.1) H 02/10/18 07:00 Chloride 103 mmol/L (98-107) 02/10/18 07:00 Carbon Dioxide 21 mmol/L (21-32) 02/10/18 07:00 Anion Gap 12 (8-16) 02/10/18 07:00 BUN 53 mg/dL (7-18) H 02/10/18 07:00 Creatinine 14.8 mg/dL (0.7-1.3) H* 02/10/18 07:00 Random Glucose 70 mg/dL (74-106) L D 02/10/18 07:00 Calcium 6.9 mg/dL (8.5-10.1) L* 02/10/18 07:00 Blood Type B POSITIVE 02/09/18 14:02 Antibody Screen Negative 02/09/18 14:02 INR 1.10 (0.82-1.09) 02/09/18 14:17 - ASSESSMENT/PLAN Problem List - Problems (1) ESRD (end stage renal disease) Assessment/Plan: 1. NPO after midnight except po meds 2. GI/DVT PPX 3. Medical optimization / clearance 4. RUE limb preservation Code(s): N18.6 - END STAGE RENAL DISEASE (2) Infection of dialysis vascular access Assessment/Plan: So far blood cultures remain negative. f/u culture of distal tip catheter (removed 02/11) Code(s): T82.7XXA - INFECT/INFLM REACT D/T OTH CARDI/VASC DEV/IMPLNT/GRFT, INIT Qualifiers: Encounter type: initial encounter Qualified Code(s): T82.7XXA - Infection and inflammatory reaction due to other cardiac and vascular devices, implants and grafts, initial encounter Visit type - Case Type Case Type: ED Admission - New patient This patient is new to me today: Yes Date on this admission: 02/11/18
--- NOTE | 2018-02-11 12:54 | PN ---
Progress Note, Physician History of Present Illness: Pt seen and examined at bedside. His HD catheter was removed. He denies shortness of breath. He was dialyzed for about 4 hours yesterday. - Current Medication List Current Medications: Active Medications Amlodipine Besylate (Norvasc -) 10 mg PO DAILY [facility] Last Admin: 02/11/18 10:25 Dose: 10 mg Heparin Sodium (Porcine) (Heparin -) 5,000 unit SQ BID [facility] Last Admin: 02/11/18 10:26 Dose: 5,000 unit Piperacillin Sod/Tazobactam (Sod 2.25 gm/ Dextrose) 50 mls @ 100 mls/hr IVPB Q8H-IV [facility] PRN Reason: Protocol Last Admin: 02/11/18 10:30 Dose: 100 mls/hr Isosorbide Mononitrate (Imdur -) 30 mg PO DAILY [facility] Last Admin: 02/11/18 10:26 Dose: 30 mg Lisinopril (Prinivil) 20 mg PO DAILY [facility] Last Admin: 02/11/18 10:26 Dose: 20 mg Metoprolol Tartrate (Lopressor -) 25 mg PO BID [facility] Last Admin: 02/11/18 10:26 Dose: 25 mg - Objective Vital Signs: Vital Signs Temperature 98.3 F 02/11/18 09:00 Pulse Rate 71 02/11/18 09:00 Respiratory Rate 20 02/11/18 09:00 Blood Pressure 156/99 02/11/18 09:00 O2 Sat by Pulse Oximetry (%) 100 02/11/18 09:00 Constitutional: Yes: Calm Eyes: Yes: Conjunctiva Clear HENT: Yes: Atraumatic Neck: Yes: Supple Cardiovascular: Yes: S1, S2 Respiratory: Yes: CTA Bilaterally Gastrointestinal: Yes: Normal Bowel Sounds, Soft Genitourinary: Yes: WNL Musculoskeletal: Yes: WNL Edema: No Neurological: Yes: Oriented Psychiatric: Yes: Oriented Labs: CBC, BMP 02/10/18 06:30 02/10/18 07:00 INR, PTT INR 1.10 (0.82-1.09) 02/09/18 14:17 Problem List - Problems (1) ESRD (end stage renal disease) Code(s): N18.6 - END STAGE RENAL DISEASE (2) Anemia Code(s): D64.9 - ANEMIA, UNSPECIFIED Assessment/Plan Current Medications Generic Name Dose Route Start Last Admin Trade Name Jenelle PRN Reason Stop Dose Admin Amlodipine Besylate 10 mg 02/10/18 10:00 02/11/18 10:25 Norvasc - PO 10 mg DAILY [facility] Administration Heparin Sodium (Porcine) 5,000 unit 02/09/18 22:00 02/11/18 10:26 Heparin - SQ 5,000 unit BID [facility] Administration Piperacillin Sod/Tazobactam 50 mls @ 100 mls/hr 02/10/18 15:00 02/11/18 10:30 Sod 2.25 gm/ Dextrose IVPB 100 mls/hr Q8H-IV [facility] Administration Protocol Isosorbide Mononitrate 30 mg 02/10/18 10:00 02/11/18 10:26 Imdur - PO 30 mg DAILY [facility] Administration Lisinopril 20 mg 02/10/18 10:00 02/11/18 10:26 Prinivil PO 20 mg DAILY [facility] Administration Metoprolol Tartrate 25 mg 02/09/18 22:00 02/11/18 10:26 Lopressor - PO 25 mg BID [facility] Administration Impression 1. ESRD 2. HTN 3. HD access malfunction 4. anemia 5. hyperkalemia Plan - cont to follow blood cultures - permacath removed - pt going for access tomorrow - will need fistula on this admission - repeat labs in am Dr Ramos
[2018-02-11] MEDS ORDERED: SODIUM CHLORIDE 250 ML IV PRN (12:55)
--- NOTE | 2018-02-11 14:39 | PN ---
Progress Note, Physician History of Present Illness: stable no issues catheter removed no new issues site looks good - Current Medication List Current Medications: Active Medications Amlodipine Besylate (Norvasc -) 10 mg PO DAILY [facility] Last Admin: 02/11/18 10:25 Dose: 10 mg Heparin Sodium (Porcine) (Heparin -) 5,000 unit SQ BID [facility] Last Admin: 02/11/18 10:26 Dose: 5,000 unit Piperacillin Sod/Tazobactam (Sod 2.25 gm/ Dextrose) 50 mls @ 100 mls/hr IVPB Q8H-IV [facility] PRN Reason: Protocol Last Admin: 02/11/18 10:30 Dose: 100 mls/hr Sodium Chloride (Normal Saline -) 250 mls @ 3,000 mls/hr IV PRN PRN PRN Reason: Hypotension during Dialysis Stop: 02/12/18 12:55 Isosorbide Mononitrate (Imdur -) 30 mg PO DAILY [facility] Last Admin: 02/11/18 10:26 Dose: 30 mg Lisinopril (Prinivil) 20 mg PO DAILY [facility] Last Admin: 02/11/18 10:26 Dose: 20 mg Metoprolol Tartrate (Lopressor -) 25 mg PO BID [facility] Last Admin: 02/11/18 10:26 Dose: 25 mg - Objective Vital Signs: Vital Signs Temperature 98.3 F 02/11/18 09:00 Pulse Rate 71 02/11/18 09:00 Respiratory Rate 20 02/11/18 09:00 Blood Pressure 156/99 02/11/18 09:00 O2 Sat by Pulse Oximetry (%) 100 02/11/18 09:00 Constitutional: Yes: No Distress, Calm HENT: Yes: Atraumatic, Normocephalic Cardiovascular: Yes: Regular Rate and Rhythm Respiratory: Yes: Regular, CTA Bilaterally Gastrointestinal: Yes: Normal Bowel Sounds, Soft Musculoskeletal: Yes: WNL Extremities: Yes: WNL Wound/Incision: Yes: Dressing Dry and Intact Neurological: Yes: Alert, Oriented Psychiatric: Yes: Alert, Oriented Labs: CBC, BMP 02/10/18 06:30 02/10/18 07:00 INR, PTT INR 1.10 (0.82-1.09) 02/09/18 14:17 Assessment/Plan Problem List - Problems (1) ESRD (end stage renal disease) Code(s): N18.6 - END STAGE RENAL DISEASE (2) Infection of dialysis vascular access Code(s): T82.7XXA - INFECT/INFLM REACT D/T OTH CARDI/VASC DEV/IMPLNT/GRFT, INIT Qualifiers: Encounter type: initial encounter Qualified Code(s): T82.7XXA - Infection and inflammatory reaction due to other cardiac and vascular devices, implants and grafts, initial encounter (3) Hypertension Assessment/Plan: on meds stable Code(s): I10 - ESSENTIAL (PRIMARY) HYPERTENSION Qualifiers: plan continue zosyn cx reports noted blood cx are negative patient will need complete 7 days of abx wound care
--- NOTE | 2018-02-11 16:42 | PN ---
Progress Note, Physician - Current Medication List Current Medications: Active Medications Amlodipine Besylate (Norvasc -) 10 mg PO DAILY [facility] Last Admin: 02/11/18 10:25 Dose: 10 mg Heparin Sodium (Porcine) (Heparin -) 5,000 unit SQ BID [facility] Last Admin: 02/11/18 10:26 Dose: 5,000 unit Piperacillin Sod/Tazobactam (Sod 2.25 gm/ Dextrose) 50 mls @ 100 mls/hr IVPB Q8H-IV [facility] PRN Reason: Protocol Last Admin: 02/11/18 10:30 Dose: 100 mls/hr Sodium Chloride (Normal Saline -) 250 mls @ 3,000 mls/hr IV PRN PRN PRN Reason: Hypotension during Dialysis Stop: 02/12/18 12:55 Isosorbide Mononitrate (Imdur -) 30 mg PO DAILY [facility] Last Admin: 02/11/18 10:26 Dose: 30 mg Lisinopril (Prinivil) 20 mg PO DAILY [facility] Last Admin: 02/11/18 10:26 Dose: 20 mg Metoprolol Tartrate (Lopressor -) 25 mg PO BID [facility] Last Admin: 02/11/18 10:26 Dose: 25 mg - Objective Vital Signs: Vital Signs Temperature 98.5 F 02/11/18 14:00 Pulse Rate 72 02/11/18 14:00 Respiratory Rate 18 02/11/18 14:00 Blood Pressure 142/91 02/11/18 14:00 O2 Sat by Pulse Oximetry (%) 100 02/11/18 09:00 Constitutional: Yes: No Distress HENT: Yes: Atraumatic Neck: Yes: Supple Cardiovascular: Yes: Regular Rate and Rhythm Respiratory: Yes: CTA Bilaterally Gastrointestinal: Yes: Normal Bowel Sounds Extremities: Yes: WNL Edema: No Neurological: Yes: Alert, Oriented Labs: CBC, BMP 02/10/18 06:30 02/10/18 07:00 INR, PTT INR 1.10 (0.82-1.09) 02/09/18 14:17 Problem List - Problems (1) ESRD (end stage renal disease) Assessment/Plan: on Hd stable Code(s): N18.6 - END STAGE RENAL DISEASE (2) Infection of dialysis vascular access Assessment/Plan: on iv abx need to be taken out Code(s): T82.7XXA - INFECT/INFLM REACT D/T OTH CARDI/VASC DEV/IMPLNT/GRFT, INIT Qualifiers: Encounter type: initial encounter Qualified Code(s): T82.7XXA - Infection and inflammatory reaction due to other cardiac and vascular devices, implants and grafts, initial encounter (3) Hypertension Assessment/Plan: on meds stable Code(s): I10 - ESSENTIAL (PRIMARY) HYPERTENSION Qualifiers:
[2018-02-12] MEDS ORDERED: PT OWN MED DRAWER 7, Y5N ONE (01:08)
[2018-02-12] MEDS: PIPERACILLIN/TAZOB 2.25 GM 2.25 GM in DEXTROSE 5%-WATER - 50 ML IVPB SCH ×2 (01:15→17:23)
[2018-02-12] MEDS ORDERED: HEPARIN NA (PORCINE) 5,000 UNITS/ML 1ML VIAL ONE (07:38)
[2018-02-12] MEDS ORDERED: LIDOCAINE HCL 1%, 10 MG/ML (20ML VIAL) ONE ×2 (07:38→07:43)
--- NOTE | 2018-02-12 08:42 | PN ---
Progress Note (short form) - Note Progress Note: RENAL Pt seen and examined he has no complaints will go for PC today Last Vital Signs Temp Pulse Resp BP Pulse Ox 98.2 F 70 20 143/88 100 02/12/18 06:00 02/12/18 06:00 02/12/18 06:00 02/12/18 06:00 02/11/18 20:42 lungs clear has a dressing over right upper chest cvs s1s2 rr+lorena abd soft ext no edema neuro a+ox3 CBC, BMP 02/10/18 06:30 02/10/18 07:00 Current Medications Generic Name Dose Route Start Last Admin Trade Name Freq PRN Reason Stop Dose Admin Amlodipine Besylate 10 mg 02/10/18 10:00 02/11/18 10:25 Norvasc - PO 10 mg DAILY [facility] Administration Heparin Sodium (Porcine) 5,000 unit 02/09/18 22:00 02/11/18 21:24 Heparin - SQ 5,000 unit BID [facility] Administration Piperacillin Sod/Tazobactam 50 mls @ 100 mls/hr 02/10/18 15:00 02/12/18 01:15 Sod 2.25 gm/ Dextrose IVPB 100 mls/hr Q8H-IV [facility] Administration Protocol Sodium Chloride 250 mls @ 3,000 mls/hr 02/11/18 12:55 Normal Saline - IV 02/12/18 12:55 PRN PRN Hypotension during Dialysis Isosorbide Mononitrate 30 mg 02/10/18 10:00 02/11/18 10:26 Imdur - PO 30 mg DAILY [facility] Administration Lisinopril 20 mg 02/10/18 10:00 02/11/18 10:26 Prinivil PO 20 mg DAILY [facility] Administration Metoprolol Tartrate 25 mg 02/09/18 22:00 02/11/18 21:24 Lopressor - PO 25 mg BID [facility] Administration Impression 1. ESRD 2. HTN 3. HD access malfunction 4. anemia 5. hyperkalemia 6. MSSA 7 hypocalcemia Plan for pc, preferrably under local given hypocalcemia hypocalcemia should improve with hd later would start calcitriol MV
[2018-02-12] MEDS ORDERED: BUPIVACAINE HCL/PF 0.5% (5MG/ML) 10 ML VIAL ONE (09:05)
[2018-02-12] MEDS ORDERED: MIDAZOLAM HCL 2 MG/2 ML SINGLE DOSE VIAL ONE ×2 (09:06)
[2018-02-12] MEDS ORDERED: ONDANSETRON 4 MG/2 ML VIAL IVPUSH PRN ×2 (09:30→12:53)
[2018-02-12] MEDS ORDERED: SODIUM CHLORIDE 1,000 ML IV SCH (09:30)
[2018-02-12] MEDS ORDERED: PROMETHAZINE HCL 25 MG/1 ML VIAL IVPUSH PRN ×2 (09:30→12:53)
[2018-02-12] MEDS ORDERED: LIDOCAINE HCL/PF 2% SDV 5ML VIAL ONE (09:41)
[2018-02-12] MEDS ORDERED: PROPOFOL 20 ML ONE ×2 (09:41→10:47)
[2018-02-12] MEDS ORDERED: SODIUM CHLORIDE 0.9% P/F 10 ML VIAL IJ ONE (09:42)
[2018-02-12] MEDS ORDERED: ceFAZolin SODIUM 1 GM VIAL ONE (09:42)
[2018-02-12] MEDS ORDERED: ceFAZolin SODIUM 1 GM VIAL IVPB ONE (09:44)
[2018-02-12] MEDS ORDERED: LIDOCAINE HCL 1%, 10 MG/ML (20ML VIAL) INF ONE ×2 (09:53→10:33)
[2018-02-12] MEDS ORDERED: hydrALAZINE HCL 20 MG/ML VIAL ONE (09:58)
[2018-02-12] MEDS ORDERED: CALCITRIOL 0.25 MCG CAPSULE (FP) PO SCH (10:00)
[2018-02-12] MEDS ORDERED: METOPROLOL TARTRATE 5 MG/5 ML VIAL ONE (10:30)
--- NOTE | 2018-02-12 11:34 | PN ---
Progress Note, Physician History of Present Illness: stable feels much better no complaints - Current Medication List Current Medications: Active Medications Amlodipine Besylate (Norvasc -) 10 mg PO DAILY [facility] Last Admin: 02/11/18 10:25 Dose: 10 mg Calcitriol (Rocaltrol -) 0.25 mcg PO DAILY [facility] Fentanyl (Sublimaze Injection -) 50 mcg IVPUSH [id number] PRN PRN Reason: PAIN-PACU ORDER X 4 DOSES ONLY Heparin Sodium (Porcine) (Heparin -) 5,000 unit SQ BID [facility] Last Admin: 02/11/18 21:24 Dose: 5,000 unit Piperacillin Sod/Tazobactam (Sod 2.25 gm/ Dextrose) 50 mls @ 100 mls/hr IVPB Q8H-IV [facility] PRN Reason: Protocol Last Admin: 02/12/18 01:15 Dose: 100 mls/hr Sodium Chloride (Normal Saline -) 250 mls @ 3,000 mls/hr IV PRN PRN PRN Reason: Hypotension during Dialysis Stop: 02/12/18 12:55 Sodium Chloride (Normal Saline -) 1,000 mls @ 42 mls/hr IV ASDIR [facility] Isosorbide Mononitrate (Imdur -) 30 mg PO DAILY [facility] Last Admin: 02/11/18 10:26 Dose: 30 mg Lisinopril (Prinivil) 20 mg PO DAILY [facility] Last Admin: 02/11/18 10:26 Dose: 20 mg Metoprolol Tartrate (Lopressor -) 25 mg PO BID [facility] Last Admin: 02/11/18 21:24 Dose: 25 mg Ondansetron HCl (Zofran Injection) 4 mg IVPUSH Q6H PRN PRN Reason: NAUSEA AND/OR VOMITING Promethazine HCl (Phenergan Injection -) 12.5 mg IVPUSH Q6H PRN PRN Reason: NAUSEA-FOR RESCUE AFTER 15 MIN - Objective Vital Signs: Vital Signs Temperature 98.4 F 02/12/18 08:39 Pulse Rate 70 02/12/18 08:39 Respiratory Rate 18 02/12/18 08:39 Blood Pressure 155/103 02/12/18 08:39 O2 Sat by Pulse Oximetry (%) 100 02/11/18 20:42 Constitutional: Yes: No Distress, Calm Eyes: Yes: Conjunctiva Clear HENT: Yes: Atraumatic, Normocephalic Cardiovascular: Yes: Regular Rate and Rhythm Respiratory: Yes: Regular, CTA Bilaterally Gastrointestinal: Yes: Normal Bowel Sounds, Soft Musculoskeletal: Yes: WNL Extremities: Yes: WNL Wound/Incision: Yes: Clean/Dry, Dressing Removed Neurological: Yes: Alert, Oriented Psychiatric: Yes: Alert, Oriented Labs: CBC, BMP 02/10/18 06:30 02/10/18 07:00 INR, PTT INR 1.10 (0.82-1.09) 02/09/18 14:17 Assessment/Plan Problem List - Problems (1) ESRD (end stage renal disease) Code(s): N18.6 - END STAGE RENAL DISEASE (2) Infection of dialysis vascular access Code(s): T82.7XXA - INFECT/INFLM REACT D/T OTH CARDI/VASC DEV/IMPLNT/GRFT, INIT Qualifiers: Encounter type: initial encounter Qualified Code(s): T82.7XXA - Infection and inflammatory reaction due to other cardiac and vascular devices, implants and grafts, initial encounter (3) Hypertension Assessment/Plan: on meds stable Code(s): I10 - ESSENTIAL (PRIMARY) HYPERTENSION Qualifiers: plan continue zosyn continue dialysis rest as per primary team patient stable
[2018-02-12] MEDS ORDERED: POVIDONE-IODINE OINTMENT 10% - 28.4 GM TUBE ONE (12:16)
--- NOTE | 2018-02-12 12:34 | OP ---
Operative Note - Note: Operative Date: 02/12/18 Pre-Operative Diagnosis: ESRD Operation: Insertion of permacath, creation of left avf Post-Operative Diagnosis: Same as Pre-op Surgeon: Jamal Lincoln Anesthesia: Fractional Estimated Blood Loss (mls): 50 Operative Report Dictated: Yes
[2018-02-12] MEDS ORDERED: SODIUM CHLORIDE 250 ML IV PRN (12:53)
--- NOTE | 2018-02-12 14:12 | OP ---
DATE OF OPERATION: 02/12/2018 PREOPERATIVE DIAGNOSIS: End-stage renal disease. POSTOPERATIVE DIAGNOSIS: End-stage renal disease. PROCEDURE: Insertion of PermCath and creation of right arteriovenous fistula. SURGEON: Jamal Ramos DO ANESTHESIA: Fractional with supraclavicular nerve block. BLOOD LOSS: 50 mL. The patient is a 57-year-old male who comes in with a right IJ PermCath that was removed due to the fact that it was dislodged and the area looked infected. Patient has negative blood cultures. ID has been following the patient. He now needs permanent dialysis access in his right hand since he is left-handed, and needs a PermCath placed in his left IJ. Patient was consented for the procedure, understanding all risks, benefits, alternatives. He was then brought to OR holding. In OR holding patient received a supraclavicular nerve block for the right upper extremity. The patient was then brought to the operating room and laid down on the operating room table in a supine manner. The area of the left neck and chest were prepped and draped in a sterile surgical manner. We then went ahead and, using our ultrasound guidance, visualized the left internal jugular vein and 10 mL of lidocaine 1% was injected there. We then took our micropuncture needle and punctured the left internal jugular vein and micropuncture wire was inserted under fluoroscopy. Micropuncture sheath was inserted and 0.035 floppy guidewire was inserted. We then injected 10 mL of lidocaine 1% above and below the clavicle. We then used an 11 blade and made a 1 cm incision at the puncture site. We used a 15 blade and made a 1 cm incision below the clavicle. We then tunneled the PermCath up to the puncture site. We the placed our breakaway sheath over the guidewire into the vein under fluoroscopy and the cannula and guidewire were removed. Catheter was placed inside the sheath. The sheath was broken away as the catheter was placed inside the vein. The neck of the catheter was nice and smooth. The tip of the catheter was located outside the right atrium. We then farhad back on each port of the catheter, and there was good flow. Heparinized saline was injected, and 2000 units of IV heparin was injected. A 4-0 Biosyn was used and 2 simple stitches were placed at puncture site, 3-0 nylon used, and the catheter was attached to the skin. BioPatch, Steri-Strips, 4x4, Tegaderm were placed. Patient tolerated the procedure with no complication. We then went ahead and moved on to the right upper extremity. The right upper extremity was prepped and draped in a sterile surgical manner. Under ultrasound guidance, we were able to visualize the right cephalic vein above the antecubital space and that was marked, and then we marked the right brachial vein under ultrasound guidance above the antecubital space. We then farhad a transverse incision of about 5 cm. We then went ahead and took a 15 blade and made a 5 to 6 cm incision. Bovie electrocautery used to control hemostasis. We then went ahead and went through all the subcutaneous tissue and dissected out our cephalic vein. All branches of the cephalic vein were ligated using 4-0 silk, and we were able to free up a good portion of the proximal and distal cephalic vein. We then went medially and we were able to dissect through the fascia and get down to the brachial artery. The brachial artery was dissected out anteriorly and posteriorly and vessel loops were placed. Then 5000 units of IV heparin were administered to patient. We then went ahead and ligated our cephalic vein distally. We then placed a 4-Greek feeding tube in and the vein dilated appropriately and there was good backflow. After 3 minutes of being on IV heparin, we got distal and proximal control on our artery. We then used a 15 blade and made an arteriotomy, extended to 7 mm using Hanks scissors. We then, using Hanks scissors, made a 7-mm venotomy on our vein. We then placed 6-0 Prolene stay sutures on our arterial wall. We then went ahead and used 6-0 Prolene double-armed and went outside-in on the vein and inside-out on the artery and ran the stitch around to form an anastomosis between the artery and the vein. Once completed, we opened the distal artery first, then the proximal artery, and there was a good thrill in our AV fistula. The wound was well irrigated. A 3-0 Vicryl was used and the subcutaneous tissue was approximated in an interrupted manner, and the skin was then closed with skin cristopher. A 4 x 4, Tegaderms were placed. Patient tolerated the procedure with no complications. Patient transferred to PACU in stable condition. There was a good bruit and thrill in our AV fistula. JAMAL RAMOS, DO [employer]/[id number]
[2018-02-12 16:06] LABS: HEMATOCRIT 35.5 % (35.4-49); HEMOGLOBIN 11.8 GM/dL (11.7-16.9); MCH 28.8 pg (25.7-33.7); MCHC 33.1 g/dl (32.0-35.9); MEAN CELL VOLUME 87.1 fl (80-96); MEAN PLT VOLUME 7.8 fl (7.5-11.1); PLATELET COUNT 233 K/MM3 (134-434); RBC 4.08 M/mm3 (4.00-5.60); RDW 15.9 % (11.9-15.9)
[2018-02-12 16:41] LABS: ANION GAP 11 (8-16); BLOOD UREA NITROGEN 32 mg/dL (7-18); CHLORIDE 108 mmol/L (98-107); CO2 24 mmol/L (21-32); GLUCOSE,RANDOM 111 mg/dL (74-106); POTASSIUM 4.5 mmol/L (3.5-5.1); SODIUM 143 mmol/L (136-145)
[2018-02-12 17:56] LABS: CREATININE 12.3 mg/dL (0.7-1.3)
[2018-02-12 17:57] LABS: CALCIUM 6.9 mg/dL (8.5-10.1)
--- NOTE | 2018-02-12 18:59 | PN ---
Progress Note, Physician History of Present Illness: had AV fistula placed by vascular - Current Medication List Current Medications: Active Medications Amlodipine Besylate (Norvasc -) 10 mg PO DAILY [facility] Calcitriol (Rocaltrol -) 0.25 mcg PO DAILY [facility] Heparin Sodium (Porcine) (Heparin -) 5,000 unit SQ BID [facility] Sodium Chloride (Normal Saline -) 1,000 mls @ 42 mls/hr IV ASDIR [facility] Piperacillin Sod/Tazobactam (Sod 2.25 gm/ Dextrose) 50 mls @ 100 mls/hr IVPB Q8H-IV [facility] PRN Reason: Protocol Last Admin: 02/12/18 17:23 Dose: Not Given Isosorbide Mononitrate (Imdur -) 30 mg PO DAILY [facility] Lisinopril (Prinivil) 20 mg PO DAILY [facility] Metoprolol Tartrate (Lopressor -) 25 mg PO BID [facility] Ondansetron HCl (Zofran Injection) 4 mg IVPUSH Q6H PRN PRN Reason: NAUSEA AND/OR VOMITING Stop: 02/13/18 02:00 Promethazine HCl (Phenergan Injection -) 12.5 mg IVPUSH Q6H PRN PRN Reason: NAUSEA-FOR RESCUE AFTER 15 MIN Stop: 02/13/18 02:00 - Objective Vital Signs: Vital Signs Temperature 98.4 F 02/12/18 15:25 Pulse Rate 72 02/12/18 18:30 Respiratory Rate 18 02/12/18 18:30 Blood Pressure 150/90 02/12/18 18:30 O2 Sat by Pulse Oximetry (%) 98 02/12/18 14:36 Constitutional: Yes: No Distress HENT: Yes: Atraumatic Neck: Yes: Supple Cardiovascular: Yes: Regular Rate and Rhythm Respiratory: Yes: CTA Bilaterally Gastrointestinal: Yes: Normal Bowel Sounds Extremities: Yes: WNL Neurological: Yes: Alert, Oriented Labs: CBC, BMP 02/12/18 15:30 02/12/18 15:30 INR, PTT INR 1.10 (0.82-1.09) 02/09/18 14:17 Problem List - Problems (1) ESRD (end stage renal disease) Assessment/Plan: on Hd stable Code(s): N18.6 - END STAGE RENAL DISEASE (2) Infection of dialysis vascular access Assessment/Plan: on iv abx vascular consult Code(s): T82.7XXA - INFECT/INFLM REACT D/T OTH CARDI/VASC DEV/IMPLNT/GRFT, INIT Qualifiers: Encounter type: initial encounter Qualified Code(s): T82.7XXA - Infection and inflammatory reaction due to other cardiac and vascular devices, implants and grafts, initial encounter (3) Hypertension Assessment/Plan: on meds stable Code(s): I10 - ESSENTIAL (PRIMARY) HYPERTENSION Qualifiers:
[2018-02-12] MEDS: METOPROLOL TARTRATE 25 MG TABLET (FP) PO SCH (21:38)
[2018-02-12] MEDS: HEPARIN NA (PORCINE) 5,000 UNITS/ML 1ML VIAL SQ SCH (21:42)
[2018-02-12] MEDS: SODIUM CHLORIDE 1,000 ML IV SCH (21:47)
[2018-02-12] MEDS ORDERED: IBUPROFEN 400 MG TABLET (FP) PO ONE (22:26)
[2018-02-13] MEDS ORDERED: PT OWN MED DRAWER 7, Y5N ONE ×3 (01:20→18:15)
[2018-02-13] MEDS: PIPERACILLIN/TAZOB 2.25 GM 2.25 GM in DEXTROSE 5%-WATER - 50 ML IVPB SCH ×4 (01:24→18:19)
[2018-02-13 06:06] LABS: HBSAG SCREEN Negative (Negative); HEP A AB, IGM Negative (Negative); HEP B CORE AB, TOT Negative (Negative)
[2018-02-13] MEDS: METOPROLOL TARTRATE 25 MG TABLET (FP) PO SCH ×2 (09:57→21:30)
[2018-02-13] MEDS: LISINOPRIL 20 MG TABLET (FP) PO SCH (09:57)
[2018-02-13] MEDS: CALCITRIOL 0.25 MCG CAPSULE (FP) PO SCH (09:57)
[2018-02-13] MEDS: HEPARIN NA (PORCINE) 5,000 UNITS/ML 1ML VIAL SQ SCH ×2 (09:57→21:30)
[2018-02-13] MEDS: ISOSORBIDE MONONITRATE 30 MG TAB.SR.24H (FP) PO SCH (09:57)
[2018-02-13] MEDS: amLODIPine BESYLATE 10 MG TABLET (FP) PO SCH (09:57)
--- NOTE | 2018-02-13 10:48 | PN ---
Progress Note (short form) - Note Progress Note: POD #1 - s/p permacath placement/AVF under MAC with supra-clavicular block. VSS. Pt. doing well, resting comfortably in bed. No complaints. No residual block. No apparent anesthetic complications noted. Continue current care.
--- NOTE | 2018-02-13 11:25 | PN ---
Progress Note, Physician History of Present Illness: stable no complaints on dialysis - Current Medication List Current Medications: Active Medications Amlodipine Besylate (Norvasc -) 10 mg PO DAILY [facility] Last Admin: 02/13/18 09:57 Dose: 10 mg Calcitriol (Rocaltrol -) 0.25 mcg PO DAILY [facility] Last Admin: 02/13/18 09:57 Dose: 0.25 mcg Heparin Sodium (Porcine) (Heparin -) 5,000 unit SQ BID [facility] Last Admin: 02/13/18 09:57 Dose: 5,000 unit Sodium Chloride (Normal Saline -) 1,000 mls @ 42 mls/hr IV ASDIR [facility] Last Admin: 02/12/18 21:47 Dose: 42 mls/hr Piperacillin Sod/Tazobactam (Sod 2.25 gm/ Dextrose) 50 mls @ 100 mls/hr IVPB Q8H-IV [facility] PRN Reason: Protocol Last Admin: 02/13/18 09:58 Dose: 100 mls/hr Isosorbide Mononitrate (Imdur -) 30 mg PO DAILY [facility] Last Admin: 02/13/18 09:57 Dose: 30 mg Lisinopril (Prinivil) 20 mg PO DAILY [facility] Last Admin: 02/13/18 09:57 Dose: 20 mg Metoprolol Tartrate (Lopressor -) 25 mg PO BID [facility] Last Admin: 02/13/18 09:57 Dose: 25 mg - Objective Vital Signs: Vital Signs Temperature 98.3 F 02/13/18 06:00 Pulse Rate 71 02/13/18 06:00 Respiratory Rate 18 02/13/18 06:00 Blood Pressure 143/98 02/13/18 06:00 O2 Sat by Pulse Oximetry (%) 98 02/12/18 20:43 Constitutional: Yes: No Distress, Calm HENT: Yes: Atraumatic Cardiovascular: Yes: Regular Rate and Rhythm Respiratory: Yes: Regular, CTA Bilaterally Gastrointestinal: Yes: Normal Bowel Sounds, Soft Musculoskeletal: Yes: WNL Extremities: Yes: WNL Wound/Incision: Yes: Dressing Dry and Intact Neurological: Yes: Alert, Oriented Psychiatric: Yes: Alert, Oriented Labs: CBC, BMP 02/12/18 15:30 02/12/18 15:30 INR, PTT INR 1.10 (0.82-1.09) 03/12/18 14:17 Assessment/Plan Problem List - Problems (1) ESRD (end stage renal disease) Code(s): N18.6 - END STAGE RENAL DISEASE (2) Infection of dialysis vascular access Code(s): T82.7XXA - INFECT/INFLM REACT D/T OTH CARDI/VASC DEV/IMPLNT/GRFT, INIT Qualifiers: Encounter type: initial encounter Qualified Code(s): T82.7XXA - Infection and inflammatory reaction due to other cardiac and vascular devices, implants and grafts, initial encounter (3) Hypertension Assessment/Plan: on meds stable Code(s): I10 - ESSENTIAL (PRIMARY) HYPERTENSION Qualifiers: plan continue zosyn continue dialysis rest as per primary team patient stable
--- NOTE | 2018-02-13 19:16 | PN ---
Progress Note, Physician History of Present Illness: doing well - Current Medication List Current Medications: Active Medications Amlodipine Besylate (Norvasc -) 10 mg PO DAILY [facility] Last Admin: 02/13/18 09:57 Dose: 10 mg Calcitriol (Rocaltrol -) 0.25 mcg PO DAILY [facility] Last Admin: 02/13/18 09:57 Dose: 0.25 mcg Heparin Sodium (Porcine) (Heparin -) 5,000 unit SQ BID [facility] Last Admin: 02/13/18 09:57 Dose: 5,000 unit Sodium Chloride (Normal Saline -) 1,000 mls @ 42 mls/hr IV ASDIR [facility] Last Admin: 02/12/18 21:47 Dose: 42 mls/hr Piperacillin Sod/Tazobactam (Sod 2.25 gm/ Dextrose) 50 mls @ 100 mls/hr IVPB Q8H-IV [facility] PRN Reason: Protocol Last Admin: 02/13/18 18:19 Dose: 100 mls/hr Isosorbide Mononitrate (Imdur -) 30 mg PO DAILY [facility] Last Admin: 02/13/18 09:57 Dose: 30 mg Lisinopril (Prinivil) 20 mg PO DAILY [facility] Last Admin: 02/13/18 09:57 Dose: 20 mg Metoprolol Tartrate (Lopressor -) 25 mg PO BID [facility] Last Admin: 02/13/18 09:57 Dose: 25 mg - Objective Vital Signs: Vital Signs Temperature 98.8 F 02/13/18 14:00 Pulse Rate 72 02/13/18 09:00 Respiratory Rate 18 02/13/18 09:00 Blood Pressure 133/92 02/13/18 09:00 O2 Sat by Pulse Oximetry (%) 98 02/12/18 20:43 Constitutional: Yes: No Distress HENT: Yes: Atraumatic Neck: Yes: Supple Cardiovascular: Yes: Regular Rate and Rhythm Respiratory: Yes: CTA Bilaterally Gastrointestinal: Yes: Normal Bowel Sounds Extremities: Yes: WNL Neurological: Yes: Alert, Oriented Labs: CBC, BMP 02/12/18 15:30 02/12/18 15:30 INR, PTT INR 1.10 (0.82-1.09) 02/09/18 14:17 Problem List - Problems (1) ESRD (end stage renal disease) Assessment/Plan: on Hd stable Code(s): N18.6 - END STAGE RENAL DISEASE (2) Infection of dialysis vascular access Assessment/Plan: on iv abx vascular consult Code(s): T82.7XXA - INFECT/INFLM REACT D/T OTH CARDI/VASC DEV/IMPLNT/GRFT, INIT Qualifiers: Encounter type: initial encounter Qualified Code(s): T82.7XXA - Infection and inflammatory reaction due to other cardiac and vascular devices, implants and grafts, initial encounter (3) Hypertension Assessment/Plan: on meds stable Code(s): I10 - ESSENTIAL (PRIMARY) HYPERTENSION Qualifiers:
[2018-02-13] MEDS: SODIUM CHLORIDE 1,000 ML IV SCH (19:30)
[2018-02-14] MEDS ORDERED: PT OWN MED DRAWER 7, Y5N ONE (00:17)
[2018-02-14] MEDS: PIPERACILLIN/TAZOB 2.25 GM 2.25 GM in DEXTROSE 5%-WATER - 50 ML IVPB SCH ×3 (02:31→19:22)
--- NOTE | 2018-02-14 09:44 | PN ---
Progress Note (short form) - Note Progress Note: RENAL Pt seen and examined he has no complaints Last Vital Signs Temp Pulse Resp BP Pulse Ox 98.7 F 72 18 149/80 98 02/14/18 08:00 02/14/18 08:00 02/14/18 08:00 02/14/18 08:00 02/13/18 20:51 lungs clear has a dressing over right upper chest cvs s1s2 rr+lorena abd soft ext no LE edema. Has edema of right upper ext at avf site neuro a+ox3 CBC, BMP 02/12/18 15:30 02/12/18 15:30 Current Medications Generic Name Dose Route Start Last Admin Trade Name Freq PRN Reason Stop Dose Admin Amlodipine Besylate 10 mg 02/13/18 10:00 02/13/18 09:57 Norvasc - PO 10 mg DAILY [facility] Administration Calcitriol 0.25 mcg 02/13/18 10:00 02/13/18 09:57 Rocaltrol - PO 0.25 mcg DAILY [facility] Administration Heparin Sodium (Porcine) 5,000 unit 02/12/18 22:00 02/13/18 21:30 Heparin - SQ 5,000 unit BID [facility] Administration Sodium Chloride 1,000 mls @ 42 mls/hr 02/12/18 12:53 02/13/18 19:30 Normal Saline - IV 42 mls/hr ASDIR [facility] Administration Piperacillin Sod/Tazobactam 50 mls @ 100 mls/hr 02/12/18 18:00 02/14/18 02:31 Sod 2.25 gm/ Dextrose IVPB 100 mls/hr Q8H-IV [facility] Administration Protocol Isosorbide Mononitrate 30 mg 02/13/18 10:00 02/13/18 09:57 Imdur - PO 30 mg DAILY [facility] Administration Lisinopril 20 mg 02/13/18 10:00 02/13/18 09:57 Prinivil PO 20 mg DAILY [facility] Administration Metoprolol Tartrate 25 mg 02/12/18 22:00 02/13/18 21:30 Lopressor - PO 25 mg BID [facility] Administration Impression 1. ESRD 2. HTN 3. HD access malfunction 4. anemia 5. hyperkalemia 6. MSSA 7 hypocalcemia Plan will dialyze today repeat bmp to eval calcium check phos as well MV
[2018-02-14] MEDS ORDERED: HEPARIN NA (PORCINE) 5,000 UNITS/ML 1ML VIAL IVPUSH ONE (09:45)
[2018-02-14] MEDS ORDERED: SODIUM CHLORIDE 250 ML IV PRN (09:45)
[2018-02-14] MEDS: CALCITRIOL 0.25 MCG CAPSULE (FP) PO SCH (10:37)
[2018-02-14] MEDS ORDERED: VANCOMYCIN 1,000 MG in DEXTROSE 5%-WATER - 250 ML IVPB ONE (10:38)
--- NOTE | 2018-02-14 13:10 | PN ---
Progress Note, Physician History of Present Illness: Pt seen and examined. Events noted, labs reviewed. Pt is currently afebrile, stating he feels well. Currently in HD unit. Has no new complaints. - Current Medication List Current Medications: Active Medications Amlodipine Besylate (Norvasc -) 10 mg PO DAILY [facility] Last Admin: 02/13/18 09:57 Dose: 10 mg Calcitriol (Rocaltrol -) 0.25 mcg PO DAILY [facility] Last Admin: 02/14/18 10:37 Dose: 0.25 mcg Heparin Sodium (Porcine) (Heparin -) 5,000 unit SQ BID [facility] Last Admin: 02/13/18 21:30 Dose: 5,000 unit Sodium Chloride (Normal Saline -) 1,000 mls @ 42 mls/hr IV ASDIR [facility] Last Admin: 02/13/18 19:30 Dose: 42 mls/hr Piperacillin Sod/Tazobactam (Sod 2.25 gm/ Dextrose) 50 mls @ 100 mls/hr IVPB Q8H-IV [facility] PRN Reason: Protocol Last Admin: 02/14/18 10:37 Dose: 100 mls/hr Sodium Chloride (Normal Saline -) 250 mls @ 3,000 mls/hr IV PRN PRN PRN Reason: Hypotension during Dialysis Stop: 02/15/18 09:45 Isosorbide Mononitrate (Imdur -) 30 mg PO DAILY [facility] Last Admin: 02/13/18 09:57 Dose: 30 mg Lisinopril (Prinivil) 20 mg PO DAILY [facility] Last Admin: 02/13/18 09:57 Dose: 20 mg Metoprolol Tartrate (Lopressor -) 25 mg PO BID [facility] Last Admin: 02/13/18 21:30 Dose: 25 mg - Objective Vital Signs: Vital Signs Temperature 98.7 F 02/14/18 08:00 Pulse Rate 72 02/14/18 08:00 Respiratory Rate 18 02/14/18 08:00 Blood Pressure 149/80 02/14/18 08:00 O2 Sat by Pulse Oximetry (%) 98 02/14/18 09:00 Constitutional: Yes: No Distress, Calm Cardiovascular: Yes: Regular Rate and Rhythm Respiratory: Yes: Regular Gastrointestinal: Yes: Normal Bowel Sounds, Soft Integumentary: Yes: Other (Rt chest wall previous permacath site healing, no purulence/induration Lt permacath site dressed, no erythema) Wound/Incision: Yes: Other (RT AVF site dressing in place, cristopher intact) Neurological: Yes: Alert Labs: CBC, BMP 02/12/18 15:30 02/12/18 15:30 INR, PTT INR 1.10 (0.82-1.09) 02/09/18 14:17 Microbiology 02/11/18 08:40 Catheter Site Gram Stain - Final 02/11/18 08:40 Catheter Site Wound Culture - Final S Aureus 02/09/18 14:10 Blood - Peripheral Venous Blood Culture - Preliminary NO GROWTH OBTAINED AFTER 96 HOURS, INCUBATION TO CONTINUE FOR 1 DAYS. 02/09/18 14:10 Blood - Peripheral Venous Blood Culture - Preliminary NO GROWTH OBTAINED AFTER 96 HOURS, INCUBATION TO CONTINUE FOR 1 DAYS. 02/10/18 11:50 Catheter Site Gram Stain - Final 02/10/18 11:50 Catheter Site Wound Culture - Final Staphylococcus Aureus Problem List - Problems (1) ESRD (end stage renal disease) Code(s): N18.6 - END STAGE RENAL DISEASE (2) Infection of dialysis vascular access Code(s): T82.7XXA - INFECT/INFLM REACT D/T OTH CARDI/VASC DEV/IMPLNT/GRFT, INIT Qualifiers: Encounter type: initial encounter Qualified Code(s): T82.7XXA - Infection and inflammatory reaction due to other cardiac and vascular devices, implants and grafts, initial encounter (3) Dialysis catheter clot or failure Code(s): [id number] - (4) Hypertension Code(s): I10 - ESSENTIAL (PRIMARY) HYPERTENSION Qualifiers: Assessment/Plan 57 y.o. male with ESRD on HD presented with purulent drainage at Rt chest permacath site. Catheter removed, replaced on Lt chest with creation of RUE AVF. MSSA/MRSA infection at previous permacath site - healing Blood cultures no growth -- d/c Zosyn -- start Vancomycin post HD (//Fri) continue monitor
--- NOTE | 2018-02-14 13:41 | PN ---
Progress Note, Physician History of Present Illness: in dialysis - Current Medication List Current Medications: Active Medications Amlodipine Besylate (Norvasc -) 10 mg PO DAILY [facility] Last Admin: 02/13/18 09:57 Dose: 10 mg Calcitriol (Rocaltrol -) 0.25 mcg PO DAILY [facility] Last Admin: 02/14/18 10:37 Dose: 0.25 mcg Heparin Sodium (Porcine) (Heparin -) 5,000 unit SQ BID [facility] Last Admin: 02/13/18 21:30 Dose: 5,000 unit Sodium Chloride (Normal Saline -) 1,000 mls @ 42 mls/hr IV ASDIR [facility] Last Admin: 02/13/18 19:30 Dose: 42 mls/hr Piperacillin Sod/Tazobactam (Sod 2.25 gm/ Dextrose) 50 mls @ 100 mls/hr IVPB Q8H-IV [facility] PRN Reason: Protocol Last Admin: 02/14/18 10:37 Dose: 100 mls/hr Sodium Chloride (Normal Saline -) 250 mls @ 3,000 mls/hr IV PRN PRN PRN Reason: Hypotension during Dialysis Stop: 02/15/18 09:45 Isosorbide Mononitrate (Imdur -) 30 mg PO DAILY [facility] Last Admin: 02/13/18 09:57 Dose: 30 mg Lisinopril (Prinivil) 20 mg PO DAILY [facility] Last Admin: 02/13/18 09:57 Dose: 20 mg Metoprolol Tartrate (Lopressor -) 25 mg PO BID [facility] Last Admin: 02/13/18 21:30 Dose: 25 mg - Objective Vital Signs: Vital Signs Temperature 98.7 F 02/14/18 08:00 Pulse Rate 72 02/14/18 08:00 Respiratory Rate 18 02/14/18 08:00 Blood Pressure 149/80 02/14/18 08:00 O2 Sat by Pulse Oximetry (%) 98 02/14/18 09:00 Constitutional: Yes: No Distress HENT: Yes: Atraumatic Neck: Yes: Supple Cardiovascular: Yes: Regular Rate and Rhythm Respiratory: Yes: CTA Bilaterally Gastrointestinal: Yes: Normal Bowel Sounds Extremities: Yes: WNL Neurological: Yes: Alert, Oriented Labs: CBC, BMP 02/12/18 15:30 INR, PTT INR 1.10 (0.82-1.09) 02/09/18 14:17 Problem List - Problems (1) ESRD (end stage renal disease) Assessment/Plan: on Hd stable Code(s): N18.6 - END STAGE RENAL DISEASE (2) Infection of dialysis vascular access Assessment/Plan: on iv abx vascular consult Code(s): T82.7XXA - INFECT/INFLM REACT D/T OTH CARDI/VASC DEV/IMPLNT/GRFT, INIT Qualifiers: Encounter type: initial encounter Qualified Code(s): T82.7XXA - Infection and inflammatory reaction due to other cardiac and vascular devices, implants and grafts, initial encounter (3) Hypertension Assessment/Plan: on meds stable Code(s): I10 - ESSENTIAL (PRIMARY) HYPERTENSION Qualifiers:
[2018-02-14 13:52] LABS: ANION GAP 12 (8-16); BLOOD UREA NITROGEN 24 mg/dL (7-18); CHLORIDE 103 mmol/L (98-107); CO2 27 mmol/L (21-32); GLUCOSE,RANDOM 114 mg/dL (74-106); PHOSPHOROUS 4.3 mg/dL (2.5-4.9); POTASSIUM 4.5 mmol/L (3.5-5.1); SODIUM 142 mmol/L (136-145)
[2018-02-14 14:00] LABS: CALCIUM 6.7 mg/dL (8.5-10.1); CREATININE 11.5 mg/dL (0.7-1.3)
[2018-02-14] MEDS: SODIUM CHLORIDE 1,000 ML IV SCH ×2 (17:02→17:03)
[2018-02-14] MEDS: METOPROLOL TARTRATE 25 MG TABLET (FP) PO SCH ×2 (17:03→23:00)
[2018-02-14] MEDS: HEPARIN NA (PORCINE) 5,000 UNITS/ML 1ML VIAL SQ SCH ×2 (17:03→23:00)
[2018-02-14] MEDS: ISOSORBIDE MONONITRATE 30 MG TAB.SR.24H (FP) PO SCH (17:12)
[2018-02-14] MEDS: amLODIPine BESYLATE 10 MG TABLET (FP) PO SCH (17:12)
[2018-02-14] MEDS: LISINOPRIL 20 MG TABLET (FP) PO SCH (17:12)
[2018-02-15] MEDS: PIPERACILLIN/TAZOB 2.25 GM 2.25 GM in DEXTROSE 5%-WATER - 50 ML IVPB SCH ×2 (02:46→09:44)
[2018-02-15] MEDS ORDERED: PT OWN MED DRAWER 7, Y5N ONE (09:37)
[2018-02-15] MEDS: CALCITRIOL 0.25 MCG CAPSULE (FP) PO SCH (09:44)
[2018-02-15] MEDS: LISINOPRIL 20 MG TABLET (FP) PO SCH (09:44)
[2018-02-15] MEDS: amLODIPine BESYLATE 10 MG TABLET (FP) PO SCH (09:44)
[2018-02-15] MEDS: METOPROLOL TARTRATE 25 MG TABLET (FP) PO SCH ×2 (09:44→21:29)
[2018-02-15] MEDS: HEPARIN NA (PORCINE) 5,000 UNITS/ML 1ML VIAL SQ SCH ×2 (09:44→21:29)
[2018-02-15] MEDS: ISOSORBIDE MONONITRATE 30 MG TAB.SR.24H (FP) PO SCH (09:44)
--- NOTE | 2018-02-15 10:36 | PN ---
Progress Note (short form) - Note Progress Note: RENAL Pt seen and examined he has no complaints has been transferred to be in isolation Last Vital Signs Temp Pulse Resp BP Pulse Ox 99.3 F 73 20 147/91 96 02/15/18 07:00 02/15/18 07:00 02/15/18 07:00 02/15/18 07:00 02/14/18 21:00 lungs clear has a dressing over right upper chest cvs s1s2 rr+lorena abd soft ext no LE edema. Has edema of right upper ext at avf site neuro a+ox3 CBC, BMP 02/12/18 15:30 02/14/18 12:15 Current Medications Generic Name Dose Route Start Last Admin Trade Name Freq PRN Reason Stop Dose Admin Amlodipine Besylate 10 mg 02/13/18 10:00 02/15/18 09:44 Norvasc - PO 10 mg DAILY [facility] Administration Calcitriol 0.25 mcg 02/13/18 10:00 02/15/18 09:44 Rocaltrol - PO 0.25 mcg DAILY [facility] Administration Heparin Sodium (Porcine) 5,000 unit 02/12/18 22:00 02/15/18 09:44 Heparin - SQ 5,000 unit BID [facility] Administration Sodium Chloride 1,000 mls @ 42 mls/hr 02/12/18 12:53 02/14/18 17:03 Normal Saline - IV Not Given ASDIR [facility] Piperacillin Sod/Tazobactam 50 mls @ 100 mls/hr 02/12/18 18:00 02/15/18 09:44 Sod 2.25 gm/ Dextrose IVPB 100 mls/hr Q8H-IV [facility] Administration Protocol Isosorbide Mononitrate 30 mg 02/13/18 10:00 02/15/18 09:44 Imdur - PO 30 mg DAILY [facility] Administration Lisinopril 20 mg 02/13/18 10:00 02/15/18 09:44 Prinivil PO 20 mg DAILY [facility] Administration Metoprolol Tartrate 25 mg 02/12/18 22:00 02/15/18 09:44 Lopressor - PO 25 mg BID [facility] Administration Impression 1. ESRD 2. HTN 3. HD access malfunction 4. anemia 5. hyperkalemia 6. MRSA 7 hypocalcemia Plan i dialyzed him against a 3 calcium bath after noticing calcium 6,7 yesterday increase calcitriol will need vanco during hd MV
--- NOTE | 2018-02-15 15:15 | PN ---
Progress Note, Physician History of Present Illness: Pt is alert, afebrile. No new complaints. States he feels well. - Current Medication List Current Medications: Active Medications Amlodipine Besylate (Norvasc -) 10 mg PO DAILY [facility] Last Admin: 02/15/18 09:44 Dose: 10 mg Calcitriol (Rocaltrol -) 0.25 mcg PO DAILY [facility] Last Admin: 02/15/18 09:44 Dose: 0.25 mcg Heparin Sodium (Porcine) (Heparin -) 5,000 unit SQ BID [facility] Last Admin: 02/15/18 09:44 Dose: 5,000 unit Sodium Chloride (Normal Saline -) 1,000 mls @ 42 mls/hr IV ASDIR [facility] Last Admin: 02/14/18 17:03 Dose: Not Given Isosorbide Mononitrate (Imdur -) 30 mg PO DAILY [facility] Last Admin: 02/15/18 09:44 Dose: 30 mg Lisinopril (Prinivil) 20 mg PO DAILY [facility] Last Admin: 02/15/18 09:44 Dose: 20 mg Metoprolol Tartrate (Lopressor -) 25 mg PO BID [facility] Last Admin: 02/15/18 09:44 Dose: 25 mg Vancomycin HCl (Vancomycin (Pre-Docked)) 1,000 mg IVPB DAILY [facility] PRN Reason: Protocol - Objective Vital Signs: Vital Signs Temperature 98.0 F 02/15/18 14:16 Pulse Rate 80 02/15/18 14:16 Respiratory Rate 18 02/15/18 14:16 Blood Pressure 130/78 02/15/18 14:16 O2 Sat by Pulse Oximetry (%) 96 02/14/18 21:00 Constitutional: Yes: No Distress, Calm Cardiovascular: Yes: Regular Rate and Rhythm, Other (Lt chest wall permacath site dress, Rt chest wall wound healed, no drainage/fluctuance) Respiratory: Yes: Regular Gastrointestinal: Yes: Normal Bowel Sounds, Soft Wound/Incision: Yes: [place] Intact ( no surrounding erythema/warmth/drainage. 1 fluid filled blister without erythema) Neurological: Yes: Alert Labs: CBC, BMP 02/12/18 15:30 02/14/18 12:15 INR, PTT INR 1.10 (0.82-1.09) 02/09/18 14:17 Problem List - Problems (1) ESRD (end stage renal disease) Code(s): N18.6 - END STAGE RENAL DISEASE (2) Infection of dialysis vascular access Code(s): T82.7XXA - INFECT/INFLM REACT D/T OTH CARDI/VASC DEV/IMPLNT/GRFT, INIT Qualifiers: Encounter type: initial encounter Qualified Code(s): T82.7XXA - Infection and inflammatory reaction due to other cardiac and vascular devices, implants and grafts, initial encounter (3) Dialysis catheter clot or failure Code(s): [id number] - (4) Hypertension Code(s): I10 - ESSENTIAL (PRIMARY) HYPERTENSION Qualifiers: Assessment/Plan 57 y.o. male with ESRD on HD presented with purulent drainage at Rt chest permacath site, removed. New Lt chest permacath with creation of RUE AVF. MSSA/MRSA infection at previous permacath site - healing Vancomycin post HD (//Fri) - monitor new AVF site continue monitor vitals pt currently stable
[2018-02-15] MEDS: SODIUM CHLORIDE 1,000 ML IV SCH (16:27)
--- NOTE | 2018-02-15 19:09 | PN ---
Progress Note, Physician History of Present Illness: stable - Current Medication List Current Medications: Active Medications Amlodipine Besylate (Norvasc -) 10 mg PO DAILY [facility] Last Admin: 02/15/18 09:44 Dose: 10 mg Calcitriol (Rocaltrol -) 0.25 mcg PO DAILY [facility] Last Admin: 02/15/18 09:44 Dose: 0.25 mcg Heparin Sodium (Porcine) (Heparin -) 5,000 unit SQ BID [facility] Last Admin: 02/15/18 09:44 Dose: 5,000 unit Vancomycin HCl 1,000 mg/ (Dextrose) 250 mls @ 250 mls/hr IVPB TuThSa@1000 [facility] Isosorbide Mononitrate (Imdur -) 30 mg PO DAILY [facility] Last Admin: 02/15/18 09:44 Dose: 30 mg Lisinopril (Prinivil) 20 mg PO DAILY [facility] Last Admin: 02/15/18 09:44 Dose: 20 mg Metoprolol Tartrate (Lopressor -) 25 mg PO BID [facility] Last Admin: 02/15/18 09:44 Dose: 25 mg - Objective Vital Signs: Vital Signs Temperature 98.9 F 02/15/18 17:11 Pulse Rate 78 02/15/18 17:11 Respiratory Rate 20 02/15/18 17:11 Blood Pressure 135/99 02/15/18 17:11 O2 Sat by Pulse Oximetry (%) 96 02/15/18 09:00 Constitutional: Yes: No Distress HENT: Yes: Atraumatic Neck: Yes: Supple Cardiovascular: Yes: Regular Rate and Rhythm Respiratory: Yes: CTA Bilaterally Gastrointestinal: Yes: Normal Bowel Sounds Extremities: Yes: WNL Edema: No Neurological: Yes: Alert, Oriented Labs: CBC, BMP 02/12/18 15:30 02/14/18 12:15 INR, PTT INR 1.10 (0.82-1.09) 02/09/18 14:17 Problem List - Problems (1) ESRD (end stage renal disease) Assessment/Plan: on Hd stable Code(s): N18.6 - END STAGE RENAL DISEASE (2) Infection of dialysis vascular access Assessment/Plan: on iv abx vascular consult Code(s): T82.7XXA - INFECT/INFLM REACT D/T OTH CARDI/VASC DEV/IMPLNT/GRFT, INIT Qualifiers: Encounter type: initial encounter Qualified Code(s): T82.7XXA - Infection and inflammatory reaction due to other cardiac and vascular devices, implants and grafts, initial encounter (3) Hypertension Assessment/Plan: on meds stable Code(s): I10 - ESSENTIAL (PRIMARY) HYPERTENSION Qualifiers:
[2018-02-16 06:32] VITALS: BP 144/93; PULSE 72; TEMP 98.5
[2018-02-16] MEDS: METOPROLOL TARTRATE 25 MG TABLET (FP) PO SCH ×2 (07:13→10:14)
[2018-02-16] MEDS: ISOSORBIDE MONONITRATE 30 MG TAB.SR.24H (FP) PO SCH ×2 (07:13→10:14)
[2018-02-16] MEDS: LISINOPRIL 20 MG TABLET (FP) PO SCH ×2 (07:13→10:20)
[2018-02-16] MEDS: amLODIPine BESYLATE 10 MG TABLET (FP) PO SCH ×2 (07:13→10:14)
[2018-02-16] MEDS: HEPARIN NA (PORCINE) 5,000 UNITS/ML 1ML VIAL SQ SCH ×2 (07:13→10:14)
[2018-02-16] MEDS ORDERED: PT OWN MED DRAWER 7, Y5N ONE (09:55)
[2018-02-16] MEDS: CALCITRIOL 0.25 MCG CAPSULE (FP) PO SCH (10:14)
--- NOTE | 2018-02-16 12:27 | PN ---
Progress Note, Physician - Current Medication List Current Medications: Active Medications Amlodipine Besylate (Norvasc -) 10 mg PO DAILY [facility] Last Admin: 02/16/18 10:14 Dose: 10 mg Calcitriol (Rocaltrol -) 0.25 mcg PO DAILY [facility] Last Admin: 02/16/18 10:14 Dose: 0.25 mcg Heparin Sodium (Porcine) (Heparin -) 5,000 unit SQ BID [facility] Last Admin: 02/16/18 10:14 Dose: 5,000 unit Vancomycin HCl 1,000 mg/ (Dextrose) 250 mls @ 250 mls/hr IVPB TuThSa@1000 [facility] Isosorbide Mononitrate (Imdur -) 30 mg PO DAILY [facility] Last Admin: 02/16/18 10:14 Dose: 30 mg Lisinopril (Prinivil) 20 mg PO DAILY [facility] Last Admin: 02/16/18 10:20 Dose: 20 mg Metoprolol Tartrate (Lopressor -) 25 mg PO BID [facility] Last Admin: 02/16/18 10:14 Dose: 25 mg - Objective Vital Signs: Vital Signs Temperature 98.5 F 02/16/18 06:31 Pulse Rate 72 02/16/18 06:31 Respiratory Rate 20 02/16/18 06:31 Blood Pressure 144/93 02/16/18 06:31 O2 Sat by Pulse Oximetry (%) 96 02/15/18 21:00 Labs: CBC, BMP 02/12/18 15:30 02/14/18 12:15 INR, PTT INR 1.10 (0.82-1.09) 02/09/18 14:17 Problem List - Problems (1) ESRD (end stage renal disease) Code(s): N18.6 - END STAGE RENAL DISEASE (2) Infection of dialysis vascular access Code(s): T82.7XXA - INFECT/INFLM REACT D/T OTH CARDI/VASC DEV/IMPLNT/GRFT, INIT Qualifiers: Encounter type: initial encounter Qualified Code(s): T82.7XXA - Infection and inflammatory reaction due to other cardiac and vascular devices, implants and grafts, initial encounter (3) Hypertension Code(s): I10 - ESSENTIAL (PRIMARY) HYPERTENSION Qualifiers:
--- NOTE | 2018-02-16 12:47 | PN ---
Progress Note, Physician History of Present Illness: patient doing well no issues has received vanco couple of doses wound cx noted patient with left sided permacath and rt sided av fistula - Current Medication List Current Medications: Active Medications Amlodipine Besylate (Norvasc -) 10 mg PO DAILY [facility] Last Admin: 02/16/18 10:14 Dose: 10 mg Calcitriol (Rocaltrol -) 0.25 mcg PO DAILY [facility] Last Admin: 02/16/18 10:14 Dose: 0.25 mcg Doxycycline Hyclate (Vibramycin -) 100 mg PO BID@1000,1800 [facility] Heparin Sodium (Porcine) (Heparin -) 5,000 unit SQ BID [facility] Last Admin: 02/16/18 10:14 Dose: 5,000 unit Isosorbide Mononitrate (Imdur -) 30 mg PO DAILY [facility] Last Admin: 02/16/18 10:14 Dose: 30 mg Lisinopril (Prinivil) 20 mg PO DAILY [facility] Last Admin: 02/16/18 10:20 Dose: 20 mg Metoprolol Tartrate (Lopressor -) 25 mg PO BID [facility] Last Admin: 02/16/18 10:14 Dose: 25 mg - Objective Vital Signs: Vital Signs Temperature 98.5 F 02/16/18 06:31 Pulse Rate 72 02/16/18 06:31 Respiratory Rate 20 02/16/18 06:31 Blood Pressure 144/93 02/16/18 06:31 O2 Sat by Pulse Oximetry (%) 96 02/15/18 21:00 Constitutional: Yes: No Distress, Calm Cardiovascular: Yes: Regular Rate and Rhythm Respiratory: Yes: Regular, CTA Bilaterally Gastrointestinal: Yes: Normal Bowel Sounds, Soft Musculoskeletal: Yes: Other Extremities: Yes: Other (swelling of the rt arm with blister noted,slightly warm ) Edema: RUE: 1+ Neurological: Yes: Alert, Oriented Psychiatric: Yes: Alert, Oriented Labs: CBC, BMP 02/12/18 15:30 02/14/18 12:15 INR, PTT INR 1.10 (0.82-1.09) 02/09/18 14:17 Assessment/Plan Problem List - Problems (1) ESRD (end stage renal disease) Code(s): N18.6 - END STAGE RENAL DISEASE (2) Infection of dialysis vascular access Code(s): T82.7XXA - INFECT/INFLM REACT D/T OTH CARDI/VASC DEV/IMPLNT/GRFT, INIT Qualifiers: Encounter type: initial encounter Qualified Code(s): T82.7XXA - Infection and inflammatory reaction due to other cardiac and vascular devices, implants and grafts, initial encounter (3) Hypertension Assessment/Plan: on meds stable Code(s): I10 - ESSENTIAL (PRIMARY) HYPERTENSION Qualifiers: (4) Dialysis catheter clot or failure Code(s): [id number] - 5 mrsa wound infection plan will change from vanco to oral doxy to be given for another 10 days vascular to look at the arm rest as per primary team
--- NOTE | 2018-02-16 14:05 | PN ---
Progress Note (short form) - Note Progress Note: Vascular Surgery Pt seen and examined. Doing well AVf with good bruit and thrill. No need to do anything for blister. Will resorb. Probably from tape. Will remove cristopher in one week in office. Jamal Lincoln DO
--- NOTE | 2018-02-16 15:04 | PN ---
Progress Note, Physician History of Present Illness: Pt seen and examined at bedside. He had a fistula placed. - Objective Vital Signs: Vital Signs Temperature 98.5 F 02/16/18 06:31 Pulse Rate 72 02/16/18 06:31 Respiratory Rate 20 02/16/18 06:31 Blood Pressure 144/93 02/16/18 06:31 O2 Sat by Pulse Oximetry (%) 96 02/15/18 21:00 Constitutional: Yes: Calm Eyes: Yes: Conjunctiva Clear HENT: Yes: Atraumatic Neck: Yes: Supple Cardiovascular: Yes: S1, S2 Respiratory: Yes: CTA Bilaterally Gastrointestinal: Yes: Normal Bowel Sounds, Soft Genitourinary: Yes: WNL Musculoskeletal: Yes: WNL Extremities: Yes: Other (fistula with thrill and bruit) Neurological: Yes: Oriented Psychiatric: Yes: Oriented Labs: CBC, BMP 02/12/18 15:30 02/14/18 12:15 INR, PTT INR 1.10 (0.82-1.09) 02/09/18 14:17 Problem List - Problems (1) ESRD (end stage renal disease) Code(s): N18.6 - END STAGE RENAL DISEASE (2) Anemia Code(s): D64.9 - ANEMIA, UNSPECIFIED Assessment/Plan Impression 1. ESRD 2. HTN 3. HD access malfunction 4. anemia 5. hyperkalemia Plan - HD in am - vascular follow up - abx per ID Dr Ramos
--- NOTE | 2018-02-16 15:10 | DS ---
Physical Examination Vital Signs: Vital Signs Temperature 98.5 F 02/16/18 06:31 Pulse Rate 72 02/16/18 06:31 Respiratory Rate 20 02/16/18 06:31 Blood Pressure 144/93 02/16/18 06:31 O2 Sat by Pulse Oximetry (%) 96 02/15/18 21:00 Constitutional: Yes: No Distress HENT: Yes: Atraumatic Neck: Yes: Supple Cardiovascular: Yes: Regular Rate and Rhythm Respiratory: Yes: CTA Bilaterally Gastrointestinal: Yes: Normal Bowel Sounds Extremities: Yes: WNL Edema: No Neurological: Yes: Alert, Oriented Labs: CBC, BMP 02/12/18 15:30 02/14/18 12:15 Discharge Summary Reason For Visit: ESRD,INFECTION OF DIALYSIS ACCESS Condition: Good - Instructions Diet, Activity, Other Instructions: Please come back to vascular clinic in one week for staple removal 02/23. [phone] Disposition: HOME - Home Medications Comprehensive Discharge Medication List: Ambulatory Orders Amlodipine Besylate [Norvasc -] 10 mg PO DAILY #30 tablet 03/27/17 Isosorbide Mononitrate [Imdur -] 30 mg PO DAILY #30 tab 06/01/17 Lisinopril 20 mg PO DAILY 02/09/18 Metoprolol Tartrate [Lopressor -] 25 mg PO BID 02/09/18 Doxycycline Hyclate 100 mg PO BID #20 tablet 02/16/18 dc home on po doxy for 10 days
[2018-02-16] MEDS ORDERED: DOXYCYCLINE HYCLATE 100 MG CAPSULE PO SCH (18:00)
[2018-02-17] MEDS ORDERED: VANCOMYCIN 1 GRAM (PRE-DOCKED) 1,000 MG/250 ML BAG IVPB SCH (10:00)
[2018-02-17] MEDS ORDERED: VANCOMYCIN 1,000 MG in DEXTROSE 5%-WATER - 250 ML IVPB SCH (10:00)
== END 2018-02-16 15:00 | disposition home or self-care (01) | DRG 444 ==
LOC: JER 13:06 → JERBED 16:34 → J6S 18:39 → JSAMEDAYSX 02-14 11:00 → J8W 02-14 16:12
PROVIDERS: ADMIT Internal Medicine; ATTEND Internal Medicine
PROC: 03170KF Bypass Right Brachial Artery to Lower Arm Vein with Nonautologous Tissue Substitute, Open Approach (ICD-10-PCS; principal; 2018-02-09)
PROC: 05H933Z Insertion of Infusion Device into Right Brachial Vein, Percutaneous Approach (ICD-10-PCS; 2018-02-09)
PROC: B51MZZA Fluoroscopy of Right Upper Extremity Veins, Guidance (ICD-10-PCS; 2018-02-09)
PROC: 02PYX3Z Removal of Infusion Device from Great Vessel, External Approach (ICD-10-PCS; 2018-02-09)
PROC: 5A1D70Z Performance of Urinary Filtration, Intermittent, Less than 6 Hours Per Day (ICD-10-PCS; 2018-02-14)
DX: T82.7XXA Infection and inflammatory reaction due to other cardiac and vascular devices, implants and grafts, initial encounter (principal); Y84.1 Kidney dialysis as the cause of abnormal reaction of the patient, or of later complication, without mention of misadventure at the time of the procedure; Y92.89 Other specified places as the place of occurrence of the external cause; I12.0 Hypertensive chronic kidney disease with stage 5 chronic kidney disease or end stage renal disease; N18.6 End stage renal disease; Z99.2 Dependence on renal dialysis; K21.9 Gastro-esophageal reflux disease without esophagitis; E87.5 Hyperkalemia; E83.51 Hypocalcemia; D64.9 Anemia, unspecified; B95.61 Methicillin susceptible Staphylococcus aureus infection as the cause of diseases classified elsewhere
CPT/HCPCS: 36415; 71045-TC-FY; 76000-TC-FY; 80048; 80053; 84100; 85025; 85027; 85610; 85730; 86704; 86706; 86708; 86850; 86900; 86901; 87040; 87070; 87186; 87205; 87340; 93005; 93010; 93931; 93971; 94760; 99285-25; G0480; J1644; J7030

== ENCOUNTER 2018-02-24 20:23 | Emergency (ER) | payer SELFPAY ==
--- NOTE | 2018-02-24 21:16 | PDOC ---
Rapid Medical Evaluation Time Seen by Provider: 02/24/18 21:11 Medical Evaluation: Allergies Allergy/AdvReac Type Severity Reaction Status Date / Time No Known Allergies Allergy Verified 02/23/18 13:06 I have performed a brief in-person evaluation of this patient. The patient presents with a chief complaint of: port infection Pertinent physical exam findings: port left upper chest. No obvious drainage I have ordered the following: labs, port culture The patient will proceed to the ED for further evaluation.
[2018-02-24 21:17] VITALS: BP 147/104; PULSE 103; TEMP 97.9; BMI 23.9
[2018-02-24 21:33] LABS: BASO % 0.4 % (0-2.0); EOS % 4.2 % (0-4.5); LYMPH % 17.9 % (8-40); MCH 28.8 pg (25.7-33.7); MCHC 33.4 g/dl (32.0-35.9); MEAN CELL VOLUME 86.3 fl (80-96); MEAN PLT VOLUME 7.4 fl (7.5-11.1); MONO % 8.7 % (3.8-10.2); NEUT % 68.8 % (42.8-82.8); PLATELET COUNT 311 K/MM3 (134-434); RBC 3.82 M/mm3 (4.00-5.60); RDW 15.3 % (11.9-15.9); WHITE BLOOD COUNT 6.6 K/mm3 (4.0-10.0)
[2018-02-24 21:57] LABS: ALBUMIN 3.6 g/dl (3.4-5.0); ANION GAP 9 (8-16); BLOOD UREA NITROGEN 27 mg/dL (7-18); CALCIUM 7.6 mg/dL (8.5-10.1); CHLORIDE 100 mmol/L (98-107); CO2 27 mmol/L (21-32); GLUCOSE,RANDOM 120 mg/dL (74-106); POTASSIUM 3.9 mmol/L (3.5-5.1); SGOT/AST 11 U/L (15-37); SODIUM 136 mmol/L (136-145); TOT PROT 7.6 g/dl (6.4-8.2)
[2018-02-24 22:06] LABS: ALK PHOS 141 U/L (45-117); BILIRUBIN,TOTAL 0.2 mg/dL (0.2-1.0); SGPT/ALT 7 U/L (12-78)
[2018-02-24 22:19] LABS: CREATININE 8.4 mg/dL (0.7-1.3)
--- NOTE | 2018-02-24 23:20 | PDOC ---
History of Present Illness <Jennifer Henson - Last Filed: 02/24/18 23:21> - General History Source: Patient Exam Limitations: No Limitations - History of Present Illness Initial Comments: 02/24/18 23:46 The patient is a 57 year old male, with a significant past medical history of hypertension, ESRD (), GERD, who presents to the emergency department with, evaluation of left IJ permacath from dialysis. The patient states he completed a full course of dialysis prior to arrival. However, he reports while at dialysis they were concerned of drainage from the left IJ permacath site and advised the patient to come to the ED for evaluation. He denies any recent fevers, chills, headache or dizziness. He denies any recent nausea, vomit, diarrhea or constipation. He denies any recent chest pain or shortness of breath. He denies any recent dysuria, frequency, urgency or hematuria. Allergies: NKA <Marck Salas - Last Filed: 02/24/18 23:48> - General Chief Complaint: Wound Stated Complaint: REVIST Time Seen by Provider: 02/24/18 21:11 Past History - Past Medical History COPD: No DVT: No Dialysis: Yes () HTN: Yes Other medical history: / / Fri dialysis - Immunization History Immunization Up to Date: Yes - Suicide/Smoking/Psychosocial Hx Smoking History: Never smoked Have you smoked in the past 12 months: No Hx Alcohol Use: No Drug/Substance Use Hx: No Substance Use Type: None Hx Substance Use Treatment: No <Jennifer Henson - Last Filed: 02/24/18 23:21> <Marck Salas - Last Filed: 02/24/18 23:48> - Past Medical History Allergies/Adverse Reactions: Allergies Allergy/AdvReac Type Severity Reaction Status Date / Time No Known Allergies Allergy Verified 02/23/18 13:06 Home Medications: Ambulatory Orders Amlodipine Besylate [Norvasc -] 10 mg PO DAILY #30 tablet 03/27/17 Isosorbide Mononitrate [Imdur -] 30 mg PO DAILY #30 tab 06/01/17 Lisinopril 20 mg PO DAILY 02/09/18 Metoprolol Tartrate [Lopressor -] 25 mg PO BID 02/09/18 Review of Systems - Review of Systems Comments:: 02/24/18 23:46 CONSTITUTIONAL: Absent: fever, no chills, no fatigue EYES: Absent: visual changes ENT: Absent: ear pain, no sore throat CARDIOVASCULAR: Absent: chest pain, no palpitations RESPIRATORY: Absent: cough, no SOB GI: Absent: abdominal pain, no nausea, no vomiting, no constipation, no diarrhea GENITOURINARY: Absent: dysuria, no frequency, no hematuria MUSKULOSKELETAL: Absent: back pain, no arthralgia, no myalgia SKIN: Absent: rash NEURO: Absent: headache <Rosenda Salasian - Last Filed: 02/24/18 23:48> *Physical Exam - Vital Signs Last Vital Signs Temp Pulse Resp BP Pulse Ox 97.9 F 103 H 20 147/104 99 02/24/18 21:14 02/24/18 21:14 02/24/18 21:14 02/24/18 21:14 02/24/18 21:14 <Jennifer Henson - Last Filed: 02/24/18 23:21> - Vital Signs Last Vital Signs Temp Pulse Resp BP Pulse Ox 97.9 F 103 H 20 147/104 99 02/24/18 21:14 02/24/18 21:14 02/24/18 21:14 02/24/18 21:14 02/24/18 21:14 - Physical Exam Comments: 02/24/18 23:47 GENERAL: Well developed, well nourished. Awake and alert. No acute distress. HEENT: Normocephalic, atraumatic. PERRLA, EOMI. No conjunctival pallor. Sclera are non- icteric. Moist mucous membranes. Oropharynx is clear. NECK: Supple. Full ROM. No JVD. Carotid pulses 2+ and symmetric, without bruits. No thyromegaly. No lymphadenopathy. CARDIOVASCULAR: Regular rate and rhythm. No murmurs, rubs, or gallops. Distal pulses are 2+ and symmetric. CHEST: Permcath left IJ. No purulence coming from the area. PULMONARY: No evidence of respiratory distress. Lungs clear to auscultation bilaterally. No wheezing, rales or rhonchi. ABDOMINAL: Soft. Non-tender. Non-distended. No rebound or guarding. No organomegaly. Normoactive bowel sounds. MUSCULOSKELETAL Normal range of motion at all joints. No bony deformities or tenderness. No CVA tenderness. EXTREMITIES: No cyanosis. No clubbing. No edema. No calf tenderness. SKIN: Warm and dry. Normal capillary refill. No rashes. No jaundice. NEUROLOGICAL: Alert, awake, appropriate. Cranial nerves 2-12 intact. No deficits to light touch and temperature in face, upper extremities and lower extremities. No motor deficits in the in face, upper extremities and lower extremities. Normoreflexic in the upper and lower extremities. Normal speech. Toes are down- going bilaterally. Gait is normal without ataxia. PSYCHIATRIC: Cooperative. Good eye contact. Appropriate mood and affect. <Marck Salas - Last Filed: 02/24/18 23:48> ED Treatment Course - LABORATORY CBC & Chemistry Diagram: 02/24/18 21:26 02/24/18 21:26 - ADDITIONAL ORDERS Additional order review: Laboratory Results 02/24/18 21:26 Sodium 136 Potassium 3.9 Chloride 100 Carbon Dioxide 27 Anion Gap 9 BUN 27 H Creatinine 8.4 H* D Creat Clearance w eGFR 6.65 Random Glucose 120 H Calcium 7.6 L Total Bilirubin 0.2 D AST 11 L D ALT 7 L Alkaline Phosphatase 141 H Total Protein 7.6 D Albumin 3.6 02/24/18 21:26 RBC 3.82 L MCV 86.3 MCHC 33.4 RDW 15.3 MPV 7.4 L Neutrophils % 68.8 D Lymphocytes % 17.9 D Monocytes % 8.7 Eosinophils % 4.2 Basophils % 0.4 <Jennifer Henson - Last Filed: 02/24/18 23:21> - LABORATORY CBC & Chemistry Diagram: 02/24/18 21:26 02/24/18 21:26 - ADDITIONAL ORDERS Additional order review: Laboratory Results 02/24/18 21:26 Sodium 136 Potassium 3.9 Chloride 100 Carbon Dioxide 27 Anion Gap 9 BUN 27 H Creatinine 8.4 H* D Creat Clearance w eGFR 6.65 Random Glucose 120 H Calcium 7.6 L Total Bilirubin 0.2 D AST 11 L D ALT 7 L Alkaline Phosphatase 141 H Total Protein 7.6 D Albumin 3.6 02/24/18 21:26 RBC 3.82 L MCV 86.3 MCHC 33.4 RDW 15.3 MPV 7.4 L Neutrophils % 68.8 D Lymphocytes % 17.9 D Monocytes % 8.7 Eosinophils % 4.2 Basophils % 0.4 <Marck Salas - Last Filed: 02/24/18 23:48> Medical Decision Making - Medical Decision Making 02/24/18 23:20 57-year-old male who recently had placement of a left IJ permacath when his old dialysis access was removed had completed dialysis today. At the dialysis center. They're concerned about some drainage from his left IJ permacath site. Patient does not complain of fever or chills and he is afebrile here. There was no drainage appreciated at the new left permacath Labs were done and his electrolytes are unremarkable and his CBC is within normal limits with no leukocytosis Case discussed with Dr. Lincoln and he agreed patient be discharged <Jennifer Henson - Last Filed: 02/24/18 23:21> *DC/Admit/Observation/Transfer <Jennifer Henson - Last Filed: 02/24/18 23:21> - Attestations Scribe Attestion: 02/24/18 23:48 Documentation prepared by Marck Salas, acting as biomedical manager for Jennifer Henson MD. <Marck Salas - Last Filed: 02/24/18 23:48> Diagnosis at time of Disposition: ESRD (end stage renal disease), Encounter regarding vascular access for dialysis for end-stage renal disease, wound - Discharge Dispostion Disposition: HOME Condition at time of disposition: Good - Patient Instructions Additional Instructions: please continue your regular medications Follow up with your doctor Go to your regular dialysis this week
== END 2018-02-24 23:23 | disposition home or self-care (01) ==
LOC: JER 20:23
DX: T82.898A Other specified complication of vascular prosthetic devices, implants and grafts, initial encounter (principal); I12.0 Hypertensive chronic kidney disease with stage 5 chronic kidney disease or end stage renal disease; N18.6 End stage renal disease; N17.8 Other acute kidney failure; Z99.2 Dependence on renal dialysis
CPT/HCPCS: 36415; 80053; 85025; 87070; 87205; 99282-25

== ENCOUNTER 2018-03-05 18:10 | Inpatient (IN) | payer SELFPAY ==
--- NOTE | 2018-03-05 18:18 | PDOC ---
Rapid Medical Evaluation Time Seen by Provider: 03/05/18 18:14 Medical Evaluation: Allergies Allergy/AdvReac Type Severity Reaction Status Date / Time No Known Allergies Allergy Verified 02/23/18 13:06 03/05/18 18:14 I have performed a brief in-person evaluation of this patient. The patient presents with a chief complaint of: had new fistula placed 3 weeks ago, now entire R arm swollen, painful Pertinent physical exam findings: edema to entire R arm, upper arm hot to touch , leaking discharge, denies f/c/n/v/d I have ordered the following: labs, x-ray The patient will proceed to the ED for further evaluation. Discharge Disposition - Diagnosis Swollen arm - Referrals - Patient Instructions - Post Discharge Activity
[2018-03-05 19:08] LABS: BASO % 2.1 % (0-2.0); EOS % 8.8 % (0-4.5); HEMATOCRIT 36.7 % (35.4-49); HEMOGLOBIN 12.2 GM/dL (11.7-16.9); LYMPH % 41.2 % (8-40); MCH 28.6 pg (25.7-33.7); MCHC 33.1 g/dl (32.0-35.9); MEAN CELL VOLUME 86.4 fl (80-96); MEAN PLT VOLUME 7.1 fl (7.5-11.1); MONO % 7.9 % (3.8-10.2); PLATELET COUNT 231 K/MM3 (134-434); RBC 4.25 M/mm3 (4.00-5.60); RDW 15.9 % (11.9-15.9); WHITE BLOOD COUNT 4.5 K/mm3 (4.0-10.0)
[2018-03-05 19:30] LABS: INR 1.12 (0.82-1.09); PROTHROMBIN TIME (PATIENT) 12.7 SEC (9.98-11.88)
[2018-03-05 19:40] LABS: ALBUMIN 3.8 g/dl (3.4-5.0); ALK PHOS 172 U/L (45-117); ANION GAP 11 (8-16); BILIRUBIN,TOTAL 0.3 mg/dL (0.2-1.0); BLOOD UREA NITROGEN 20 mg/dL (7-18); CALCIUM 8.4 mg/dL (8.5-10.1); CHLORIDE 102 mmol/L (98-107); CO2 26 mmol/L (21-32); CREATININE 6.6 mg/dL (0.7-1.3); GLUCOSE,RANDOM 111 mg/dL (74-106); POTASSIUM 3.6 mmol/L (3.5-5.1); SGOT/AST 10 U/L (15-37); SGPT/ALT 12 U/L (12-78); SODIUM 139 mmol/L (136-145); TOT PROT 8.3 g/dl (6.4-8.2)
--- NOTE | 2018-03-05 19:43 | PDOC ---
History of Present Illness - General Chief Complaint: Wound Stated Complaint: PCP ADMIT Time Seen by Provider: 03/05/18 18:14 History Source: Patient - History of Present Illness Initial Comments: 03/05/18 20:04 57-year-old male with end-stage renal disease currently on dialysis Friday complaining of progressive swelling to the right arm and draining liquid from the right arm. Patient denies sensation loss. Patient reports that swelling and warmth has been increasing since surgery on 2017. Patient denies fever, chills, nausea vomiting diarrhea, abdominal pain, urinary symptoms, headache, chest pain, diaphoresis, dizziness 03/05/18 20:14 sheep sticker: dr. mensah Vascular : Dr. shaver Past History - Past Medical History Allergies/Adverse Reactions: Allergies Allergy/AdvReac Type Severity Reaction Status Date / Time No Known Allergies Allergy Verified 03/05/18 18:21 Home Medications: Ambulatory Orders Amlodipine Besylate [Norvasc -] 10 mg PO DAILY #30 tablet 03/27/17 Isosorbide Mononitrate [Imdur -] 30 mg PO DAILY #30 tab 06/01/17 Lisinopril 20 mg PO DAILY 02/09/18 Metoprolol Tartrate [Lopressor -] 25 mg PO BID 02/09/18 COPD: No DVT: No Dialysis: Yes () HTN: Yes - Immunization History Immunization Up to Date: Yes - Suicide/Smoking/Psychosocial Hx Smoking History: Never smoked Have you smoked in the past 12 months: No Hx Alcohol Use: No Drug/Substance Use Hx: No Substance Use Type: None Hx Substance Use Treatment: No Review of Systems - Review of Systems Able to Perform ROS?: Yes Is the patient limited Greenlandic proficient: No Constitutional: No: Symptoms Reported, See HPI, Chills, Diaphoresis, Fever, Loss of Appetite, Malaise, Night Sweats, Weakness, Weight Stable, Unintentional Wgt. Loss, Unexplained wgt Loss, Other Cardiac (ROS): No: Symptoms Reported, See HPI, Chest Pain, Edema, Irregular Heart Rate, Lightheadedness, Palpitations, Syncope, Chest Tightness, Other Integumentary: Yes: Erythema, Other *Physical Exam - Vital Signs Last Vital Signs Temp Pulse Resp BP Pulse Ox 97.2 F L 66 18 166/101 100 03/05/18 18:16 03/05/18 18:16 03/05/18 18:16 03/05/18 18:16 03/05/18 18:16 - Physical Exam General Appearance: Yes: Appropriately Dressed Extremity: positive: Erythema, Inflammation (draining clear liquid.), Other ( right arm proximal end warm to touch with significant s swelling. Distal end of right arm cold to touch faint distal pulses palpated.) Integumentary: positive: Normal Color, Dry, Warm Neurologic: positive: Fully Oriented, Alert, Normal Mood/Affect ED Treatment Course - LABORATORY CBC & Chemistry Diagram: 03/12/18 06:00 03/12/18 06:00 - ADDITIONAL ORDERS Additional order review: Laboratory Results 03/05/18 03/05/18 18:41 18:41 PT with INR 12.70 H INR 1.12 Sodium 139 Potassium 3.6 Chloride 102 Carbon Dioxide 26 Anion Gap 11 BUN 20 H D Creatinine 6.6 H D Creat Clearance w eGFR 8.79 Random Glucose 111 H Calcium 8.4 L Total Bilirubin 0.3 D AST 10 L ALT 12 D Alkaline Phosphatase 172 H D Total Protein 8.3 H Albumin 3.8 03/05/18 18:59 RBC 4.25 MCV 86.4 MCHC 33.1 RDW 15.9 MPV 7.1 L Neutrophils % 40.0 L D Lymphocytes % 41.2 H D Monocytes % 7.9 Eosinophils % 8.8 H D Basophils % 2.1 H D Medical Decision Making - Medical Decision Making 03/05/18 20:12 AV fistula infection Plan: CBC CMP Blood culture X-ray Ultrasound Vascular consult. 03/05/18 21:33 US negative for DVT. Dr. shaver aware. recommends admission for IV antibiotics. 03/05/18 21:44 Dr. Fournier aware. patient to be admitted for IV antibiotics, patient to be admitted under the hospitalist service. *DC/Admit/Observation/Transfer Diagnosis at time of Disposition: Swollen arm, Right arm cellulitis - Discharge Dispostion Disposition: HOME Condition at time of disposition: Improved Admit: Yes - Referrals - Patient Instructions - Post Discharge Activity
--- NOTE | 2018-03-05 20:37 | PDOC ---
*Physical Exam - Vital Signs Last Vital Signs Temp Pulse Resp BP Pulse Ox 97.2 F L 66 18 166/101 100 03/05/18 18:16 03/05/18 18:16 03/05/18 18:16 03/05/18 18:16 03/05/18 18:16 ED Treatment Course - LABORATORY CBC & Chemistry Diagram: 03/05/18 18:59 03/05/18 18:41 - ADDITIONAL ORDERS Additional order review: Laboratory Results 03/05/18 03/05/18 03/05/18 18:41 18:41 18:41 PT with INR 12.70 H INR 1.12 Sodium 139 Potassium 3.6 Chloride 102 Carbon Dioxide 26 Anion Gap 11 BUN 20 H D Creatinine 6.6 H D Creat Clearance w eGFR 8.79 Random Glucose 111 H Lactic Acid 1.4 Calcium 8.4 L Total Bilirubin 0.3 D AST 10 L ALT 12 D Alkaline Phosphatase 172 H D Total Protein 8.3 H Albumin 3.8 03/05/18 18:59 RBC 4.25 MCV 86.4 MCHC 33.1 RDW 15.9 MPV 7.1 L Neutrophils % 40.0 L D Lymphocytes % 41.2 H D Monocytes % 7.9 Eosinophils % 8.8 H D Basophils % 2.1 H D Medical Decision Making - Medical Decision Making 03/05/18 20:37 agree with care from DONELL Henson *DC/Admit/Observation/Transfer Diagnosis at time of Disposition: Swollen arm - Referrals Referrals: Juni Ramos MD [Primary Care Provider] - - Patient Instructions - Post Discharge Activity
[2018-03-05] MEDS ORDERED: VANCOMYCIN 1,000 MG in DEXTROSE 5%-WATER - 250 ML IVPB ONE (21:30)
[2018-03-05] MEDS ORDERED: PIPERACILLIN/TAZOBACTAM 4.5 GM VIAL IVPB ONE (21:30)
[2018-03-05] MEDS ORDERED: PIPERACILLIN/TAZOB 4.5 GM 4.5 GM/100 ML BAG IVPB ONE (21:35)
--- NOTE | 2018-03-05 22:21 | HP ---
CHIEF COMPLAINT:arm swelling. PCP:Dr. Ramos Vascular: Dr. Lincoln HISTORY OF PRESENT ILLNESS: 57 yo M with PMhx of ESRD on dialysis( , , ) and HTN present with two day history of arm swelling. He was dialyzed earlier today and noticed increased right arm swelling and pain. Pain is constant 10/10 pressure pain that radiates down entire arm. He also notes that AV fistula site has been draining clear liquid. Denies CP, MCKINNEY, SOB, fever, chills, abdominal pain. ER course was notable for: (1)Duplex negative for DVT and XRAY (-) for acute process. (2)Vanco and Zosyn X1 (3)Dr. Lincoln vascular surgery contacted. Recent Travel: denies PAST MEDICAL HISTORY: ESRD, HTN PAST SURGICAL HISTORY:AV fistula right arm Social History: Smoking:never Alcohol:denies Drugs:denies Family History:mother and father (HTN- of [place] in their 70's) Allergies No Known Allergies Allergy (Verified 03/05/18 18:21) HOME MEDICATIONS: Home Medications Medication Instructions Recorded Amlodipine Besylate [Norvasc -] 10 mg PO DAILY #30 tablet 03/27/17 Isosorbide Mononitrate [Imdur -] 30 mg PO DAILY #30 tab 06/01/17 Lisinopril 20 mg PO DAILY 02/09/18 Metoprolol Tartrate [Lopressor -] 25 mg PO BID 02/09/18 REVIEW OF SYSTEMS CONSTITUTIONAL: Absent: fever, chills, diaphoresis, generalized weakness, malaise, loss of appetite, weight change HEENT: Absent: rhinorrhea, nasal congestion, throat pain, throat swelling, difficulty swallowing, mouth swelling, ear pain, eye pain, visual changes CARDIOVASCULAR: Absent: chest pain, syncope, palpitations, irregular heart rate, lightheadedness , peripheral edema RESPIRATORY: Absent: cough, shortness of breath, dyspnea with exertion, orthopnea, wheezing, stridor, hemoptysis GASTROINTESTINAL: Absent: abdominal pain, abdominal distension, nausea, vomiting, diarrhea, constipation, melena, hematochezia GENITOURINARY: Absent: dysuria, frequency, urgency, hesitancy, hematuria, flank pain, genital pain MUSCULOSKELETAL: + Right arm swelling with pain. Absent: myalgia, arthralgia, joint swelling, back pain, neck pain SKIN: Absent: rash, itching, pallor HEMATOLOGIC/IMMUNOLOGIC: Absent: easy bleeding, easy bruising, lymphadenopathy, frequent infections ENDOCRINE: Absent: unexplained weight gain, unexplained weight loss, heat intolerance, cold intolerance NEUROLOGIC: Absent: headache, focal weakness or paresthesias, dizziness, unsteady gait, seizure, mental status changes, bladder or bowel incontinence PSYCHIATRIC: Absent: anxiety, depression, suicidal or homicidal ideation, hallucinations. PHYSICAL EXAMINATION Vital Signs - 24 hr 03/05/18 18:16 Temperature 97.2 F L Pulse Rate 66 Respiratory 18 Rate Blood Pressure 166/101 O2 Sat by Pulse 100 Oximetry (%) GENERAL: AAOx3 , NAD HEAD: NC/AT EYES:PERRLA, EOMI EARS, NOSE, THROAT: Moist mucous membranes. NECK: supple, No JVD LUNGS:CTAB, no wheezing or rales. HEART: RRR, NL S1S2, No M/G/R ABDOMEN: Soft, NT/ND, NL BS, no guarding, no rebound, no masses. No hepatomegaly or splenomegaly. MUSCULOSKELETAL: Normal range of motion at all joints. No bony deformities or tenderness. No CVA tenderness. UPPER EXTREMITIES: 2+ pulses, warm, well-perfused. No cyanosis. No clubbing. 3+ EDEMA of Right arm LOWER EXTREMITIES: 2+ pulses, warm, well-perfused. No calf tenderness. No peripheral edema. NEUROLOGICAL: Cranial nerves II-XII intact. Normal speech. PSYCHIATRIC: Cooperative. Good eye contact. Appropriate mood and affect. SKIN: Warm, dry, normal turgor, no rashes or lesions noted, normal capillary refill. Laboratory Results - last 24 hr 03/05/18 03/05/18 03/05/18 18:41 18:41 18:41 WBC RBC Hgb Hct MCV MCH MCHC RDW Plt Count MPV Neutrophils % Lymphocytes % Monocytes % Eosinophils % Basophils % ESR PT with INR 12.70 H INR 1.12 Sodium 139 Potassium 3.6 Chloride 102 Carbon Dioxide 26 Anion Gap 11 BUN 20 H D Creatinine 6.6 H D Creat Clearance w eGFR 8.79 Random Glucose 111 H Lactic Acid 1.4 Calcium 8.4 L Total Bilirubin 0.3 D AST 10 L ALT 12 D Alkaline Phosphatase 172 H D Total Protein 8.3 H Albumin 3.8 03/05/18 03/05/18 18:41 18:59 WBC 4.5 D RBC 4.25 Hgb 12.2 D Hct 36.7 MCV 86.4 MCH 28.6 MCHC 33.1 RDW 15.9 Plt Count 231 D MPV 7.1 L Neutrophils % 40.0 L D Lymphocytes % 41.2 H D Monocytes % 7.9 Eosinophils % 8.8 H D Basophils % 2.1 H D ESR 13 PT with INR INR Sodium Potassium Chloride Carbon Dioxide Anion Gap BUN Creatinine Creat Clearance w eGFR Random Glucose Lactic Acid Calcium Total Bilirubin AST ALT Alkaline Phosphatase Total Protein Albumin IMAGING: * XRAY-FOREARM- RIGHT /HUMERUS-RIGHT Indication: Clinical suspicion for osteomyelitis. Technique: 1. AP and lateral views of the right humerus. 2. AP and lateral views of the right forearm. Comparison: None available. Findings: Radiograph is not sensitive in detecting osteomyelitis. There is no acute fracture or evidence of bone destruction in the right humerus, radius or ulna. Osseous alignment is anatomic. There is negative ulnar variance. Osseous mineralization is within normal. There is irregularity of the ventral soft tissues overlying the distal humerus with three small radiopaque bodies. There is suggestion of soft tissue gas in this region which could be secondary to skin laceration. There are prominent soft tissues overlying the entire left forearm extending proximally over the distal humerus and extending distally towards the wrist. IMPRESSION: 1. Prominent soft tissues throughout the right forearm extending over the distal humerus and extending into the wrist. Please correlate with clinical exam for etiology. 2. Three small radiopaque bodies in the ventral antecubital soft tissues. Overlying skin surface irregularity and gas locules may be secondary to laceration. Please correlate clinically. 3. No evidence of acute fracture, dislocation or bone destruction. MRI and triple phase nuclear bone scintigraphy a more sensitive in detecting osteomyelitis. Reported By: Corine Ignacio DO 03/05/181935 * US/DUPLEX VASCUL US-1 ARM Indication: History of right upper extremity aVF with cellulitis. Technique: Real-time grayscale, color Doppler and spectral Doppler sonogram of the right upper extremity arteriovenous fistula and right upper extremity deep veins was performed by the technologist. Images are submitted for review. Comparison: None available. Findings: The right upper extremity aVF is patent. Velocity is within the aVF are as follows: 176-190 cm/ s at the elbow, 85 cm/s in the mid upper arm and 134 cm/s in the proximal upper arm. Peak systolic velocity in the right axillary vein measures 101 cm/s. There is no evidence of thrombosis in the interrogated portion of the right internal jugular vein, subclavian, cephalic, radial or ulnar veins. There is fluid/edema in the subcutaneous fat of the right upper extremity. Impression: Patent right upper extremity aVF. No evidence of right upper extremity deep vein thrombosis. Fluid/edema in the right upper extremity subcutaneous fat compatible with provided clinical history of cellulitis. Reported By: Corine Ignacio DO [id number] ASSESSMENT/PLAN: 57 yo M with PMhx of ESRD on dialysis( , , ) and HTN admitted to med/surg for further management of cellulitis and AV fistula problems. Problem List - Problem (1) Right arm cellulitis Assessment/Plan: Comfirmed by US of RUE as above. * Given Vanco and Zosyn x1 in ED * ID consulted Dr. Echeverria. * Will continue with Cefepime and Vanco * First dose of Cefepime with be 03/06/18 @ 0400 * repeat CBC in AM (2) ESRD (end stage renal disease) Assessment/Plan: Consulted Dr. Ramos * He was dialyzed today * Next scheduled for Sat. * May need to replace tunneled cath (3) Hypertension Assessment/Plan: Will continue with oral home medications. * Amlodipine Besylate (Norvasc -) 10 mg PO DAILY * Isosorbide Mononitrate (Imdur -) 30 mg PO DAILY * Lisinopril (Prinivil) 20 mg PO DAILY * Metoprolol Tartrate (Lopressor -) 25 mg PO BID (4) DVT prophylaxis Assessment/Plan: Heparin 5000 Units SQ TID. * hold if procedure planned for tomorrow. * SCD's bilateral LE. Visit type - Emergency Visit Emergency Visit: Yes ED Registration Date: 03/05/18 Care time: The patient presented to the Emergency Department on the above date and was hospitalized for further evaluation of their emergent condition. - New Patient This patient is new to me today: Yes Date on this admission: 03/09/18 - Critical Care Critical Care patient: No Hospitalist Screening - Colonoscopy Questionnaire Colonoscopy Questionnaire: Colonoscopy Questionnaire - Patient: 50 - 75 years old and never had a screening colonoscopy: No History of colon or rectal polyps, or CA: No History of IBD, Crohn's disease or UC: No History of abdominal radiation therapy as a child: No - Relative: 1 with colon or rectal CA, or polyps at age 60 or younger: No Colon or rectal CA diagnosed at age 45 or younger: No Multiple relatives with colon or rectal CA: No - Outcome: Screening Result: Negative Screen
[2018-03-05] MEDS ORDERED: VANCOMYCIN 1 GRAM (PRE-DOCKED) 1,000 MG/250 ML BAG IVPB ONE (22:44)
[2018-03-05 23:36] VITALS: BMI 24.0
--- NOTE | 2018-03-06 01:57 | PN ---
Teaching Attending Note Name of Resident: Leo Valdez ATTENDING PHYSICIAN STATEMENT I saw and evaluated the patient. Chart, data, imaging reviewed. I reviewed the resident's note and discussed the case with the resident. I agree with the resident's findings and plan as documented. SUBJECTIVE: 57 yo M with PMhx of ESRD on dialysis( , , ) and HTN present with 2-4 day history of arm swelling. Patient with new right arm fistula formation earlier this week and shortly after developed swelling, warmth, and pain around this AVF site. He denied any chills or fevers. Noticed some scant pale yellow discharge. In ER he received vancomycin and zosyn, duplex US r/o DVT. ROS- negative except for above OBJECTIVE: Last Vital Signs Temp Pulse Resp BP Pulse Ox 97.3 F L 76 20 165/101 100 03/05/18 23:30 03/05/18 23:30 03/05/18 23:30 03/05/18 23:30 03/05/18 23:35 General - nad, aaox3 HEENT- no scleral pallor, no sinus tenderness Chest- left chest HD catheter, CTA b/l abdomen- soft, NT, BS + Ext- right upper ext AVF with some scant yellowish d/c, swollen, edematous, warm to touch right arm Ext -no joint swelling Abnormal Lab Results 03/05/18 03/05/18 03/05/18 18:41 18:41 18:59 MPV 7.1 L Neutrophils % 40.0 L D Lymphocytes % 41.2 H D Eosinophils % 8.8 H D Basophils % 2.1 H D PT with INR 12.70 H BUN 20 H D Creatinine 6.6 H D Random Glucose 111 H Calcium 8.4 L AST 10 L Alkaline Phosphatase 172 H D Total Protein 8.3 H ASSESSMENT AND PLAN: #57yo man w/ ESRD on hemodialysis with sudden right upper extremity swelling and warmth, likely surgical site infection of recent AV fistula creation with surrounding cellulitis. Some scant discharge from skin opening in right arm. Infection is likely localized to right upper extremity as patient is otherwise afebrile w/ normal BP. S/p vancomycin and pip/tazo in ER. Thrombus was r/o with right upper extremity duplex. -blood cultures x2 -sent culture swab from wound discharge -lactic acid -warm compresses -right upper extremity elevation -continue vancomycin and pip/tazo -local wound care -vascular consult -ID consult #ESRD - on HD via left chest HD catheter -renal consult for reinstitution of HD -restart renal medications #DVT ppx with heparin sc
[2018-03-06] MEDS ORDERED: CEFEPIME HCL/D5W 1 GM/50 ML BAG IVPB ONE (04:00)
[2018-03-06] MEDS: HEPARIN NA (PORCINE) 5,000 UNITS/ML 1ML VIAL SQ SCH ×3 (06:12→21:22)
[2018-03-06 07:35] LABS: BASO % 2.5 % (0-2.0); EOS % 8.8 % (0-4.5); HEMATOCRIT 33.5 % (35.4-49); LYMPH % 30.8 % (8-40); MCH 28.4 pg (25.7-33.7); MCHC 32.8 g/dl (32.0-35.9); MEAN CELL VOLUME 86.5 fl (80-96); MEAN PLT VOLUME 7.3 fl (7.5-11.1); MONO % 10.6 % (3.8-10.2); NEUT % 47.3 % (42.8-82.8); PLATELET COUNT 215 K/MM3 (134-434); RBC 3.87 M/mm3 (4.00-5.60); RDW 15.8 % (11.9-15.9); WHITE BLOOD COUNT 5.1 K/mm3 (4.0-10.0)
[2018-03-06 08:02] LABS: INR 1.18 (0.82-1.09); PROTHROMBIN TIME (PATIENT) 13.3 SEC (9.98-11.88)
[2018-03-06 08:05] LABS: CHLORIDE 103 mmol/L (98-107); POTASSIUM 4.3 mmol/L (3.5-5.1); SODIUM 138 mmol/L (136-145)
[2018-03-06 08:23] LABS: ALBUMIN 3.2 g/dl (3.4-5.0); ALK PHOS 139 U/L (45-117); ANION GAP 10 (8-16); BILIRUBIN,TOTAL 0.4 mg/dL (0.2-1.0); BLOOD UREA NITROGEN 29 mg/dL (7-18); CALCIUM 7.4 mg/dL (8.5-10.1); CO2 25 mmol/L (21-32); GLUCOSE,RANDOM 86 mg/dL (74-106); MAGNESIUM 1.9 mg/dL (1.8-2.4); PHOSPHOROUS 5.3 mg/dL (2.5-4.9); SGOT/AST 9 U/L (15-37); SGPT/ALT 9 U/L (12-78); TOT PROT 6.8 g/dl (6.4-8.2)
[2018-03-06] MEDS: LISINOPRIL 20 MG TABLET (FP) PO SCH (09:22)
[2018-03-06] MEDS: ISOSORBIDE MONONITRATE 30 MG TAB.SR.24H (FP) PO SCH (09:22)
[2018-03-06] MEDS: amLODIPine BESYLATE 10 MG TABLET (FP) PO SCH (09:22)
[2018-03-06] MEDS: METOPROLOL TARTRATE 25 MG TABLET (FP) PO SCH ×2 (09:22→21:23)
[2018-03-06 09:32] LABS: CREATININE 8.8 mg/dL (0.7-1.3)
[2018-03-06] MEDS ORDERED: SODIUM CHLORIDE 250 ML IV PRN (12:19)
--- NOTE | 2018-03-06 15:15 | CON.ID ---
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 patient had initially come to the er last month and was send back.from the ER . he denies any fever or chills currently patient is feeling well also patients tunnel site is draining - History Source History Provided By: Patient Limitations to Obtaining History: No Limitations - Past Medical History Cardio/Vascular: Yes: HTN Gastrointestinal: Yes: GERD Renal/: Yes: Renal Failure, Hemodialysis - Alcohol/Substance Use Hx Alcohol Use: No - Smoking History Smoking history: Never smoked Have you smoked in the past 12 months: No Home Medications - Allergies Allergies/Adverse Reactions: Allergies Allergy/AdvReac Type Severity Reaction Status Date / Time No Known Allergies Allergy Verified 03/05/18 18:21 - Home Medications Home Medications: Ambulatory Orders Amlodipine Besylate [Norvasc -] 10 mg PO DAILY #30 tablet 03/27/17 Isosorbide Mononitrate [Imdur -] 30 mg PO DAILY #30 tab 06/01/17 Lisinopril 20 mg PO DAILY 02/09/18 Metoprolol Tartrate [Lopressor -] 25 mg PO BID 02/09/18 Review of Systems - Review of Systems Constitutional: reports: No Symptoms Eyes: reports: No Symptoms HENT: reports: No Symptoms Neck: reports: No Symptoms Cardiovascular: reports: No Symptoms Respiratory: reports: No Symptoms Gastrointestinal: reports: No Symptoms Genitourinary: reports: No Symptoms Musculoskeletal: reports: Joint Swelling Integumentary: reports: Change in Color, Erythema (rt cubital fossa) Neurological: reports: No Symptoms Endocrine: reports: No Symptoms Hematology/Lymphatic: reports: No Symptoms Psychiatric: reports: No Symptoms Physical Exam Vital Signs: Vital Signs Temperature 97.9 F 03/06/18 14:25 Pulse Rate 76 03/06/18 14:25 Respiratory Rate 16 03/06/18 14:25 Blood Pressure 106/67 03/06/18 14:25 O2 Sat by Pulse Oximetry (%) 100 03/05/18 23:35 Constitutional: Yes: Well Nourished, No Distress, Calm HENT: Yes: Other ([place]) Cardiovascular: Yes: Regular Rate and Rhythm Respiratory: Yes: Regular, CTA Bilaterally Gastrointestinal: Yes: Normal Bowel Sounds, Soft Musculoskeletal: Yes: WNL Extremities: Yes: Other (rt cubital fossa infection) Integumentary: Yes: Erythema, Other Wound/Incision: Yes: Draining, Other (dressing presnt) Neurological: Yes: Alert, Oriented Psychiatric: Yes: Alert, Oriented Labs: CBC, BMP 03/06/18 06:30 03/06/18 06:30 Imaging - Results Chest X-ray: Report Reviewed, Image Reviewed Ultrasound: Report Reviewed, Image Reviewed Assessment/Plan Problem List - Problems (1) Right arm cellulitis Code(s): L03.113 - CELLULITIS OF RIGHT UPPER LIMB (2) Swollen arm Code(s): M79.89 - OTHER SPECIFIED SOFT TISSUE DISORDERS (3) Anemia Code(s): D64.9 - ANEMIA, UNSPECIFIED (4) Dialysis catheter clot or failure Code(s): BMN5924 - (5) ESRD (end stage renal disease) Code(s): N18.6 - END STAGE RENAL DISEASE (6) Hypertension Code(s): I10 - ESSENTIAL (PRIMARY) HYPERTENSION Qualifiers: Hypertension type: essential hypertension Qualified Code(s): I10 - Essential (primary) hypertension plan probably wound needs drainage will d/w vascular surgery vanco during dialysis zosyn started will await for cx might also need to remove the permacath blood cx awaited
--- NOTE | 2018-03-06 15:33 | PN ---
Teaching Attending Note Name of Resident: Rustam Licona ATTENDING PHYSICIAN STATEMENT I saw and evaluated the patient. I reviewed the resident's note and discussed the case with the resident. I agree with the resident's findings and plan as documented. SUBJECTIVE: The patient complains of pain in his right arm. He says there is slight improvement. OBJECTIVE: Vital Signs Period Temp Pulse Resp BP Sys/Beyer Pulse Ox Last 24 Hr 97.2 F-98.0 F 66-76 16-20 106-166/67-103 100-100 HEART: S1S2, RRR LUNGS: Clear ABDOMEN: Soft, non-tender, non-distended, normal BS EXTREMITIES: RUE edematous, erythematous, indurated Laboratory Results - last 24 hr 03/05/18 03/05/18 03/05/18 18:41 18:41 18:41 WBC RBC Hgb Hct MCV MCH MCHC RDW Plt Count MPV Neutrophils % Lymphocytes % Monocytes % Eosinophils % Basophils % ESR PT with INR 12.70 H INR 1.12 Sodium 139 Potassium 3.6 Chloride 102 Carbon Dioxide 26 Anion Gap 11 BUN 20 H D Creatinine 6.6 H D Creat Clearance w eGFR 8.79 Random Glucose 111 H Lactic Acid 1.4 Calcium 8.4 L Phosphorus Magnesium Total Bilirubin 0.3 D AST 10 L ALT 12 D Alkaline Phosphatase 172 H D Total Protein 8.3 H Albumin 3.8 03/05/18 03/05/18 03/06/18 18:41 18:59 06:30 WBC 4.5 D 5.1 RBC 4.25 3.87 L Hgb 12.2 D 11.0 L Hct 36.7 33.5 L MCV 86.4 86.5 MCH 28.6 28.4 MCHC 33.1 32.8 RDW 15.9 15.8 Plt Count 231 D 215 MPV 7.1 L 7.3 L Neutrophils % 40.0 L D 47.3 Lymphocytes % 41.2 H D 30.8 D Monocytes % 7.9 10.6 H Eosinophils % 8.8 H D 8.8 H Basophils % 2.1 H D 2.5 H ESR 13 PT with INR INR Sodium Potassium Chloride Carbon Dioxide Anion Gap BUN Creatinine Creat Clearance w eGFR Random Glucose Lactic Acid Calcium Phosphorus Magnesium Total Bilirubin AST ALT Alkaline Phosphatase Total Protein Albumin 03/06/18 03/06/18 06:30 06:30 WBC RBC Hgb Hct MCV MCH MCHC RDW Plt Count MPV Neutrophils % Lymphocytes % Monocytes % Eosinophils % Basophils % ESR PT with INR 13.30 H INR 1.18 H Sodium 138 Potassium 4.3 Chloride 103 Carbon Dioxide 25 Anion Gap 10 BUN 29 H D Creatinine 8.8 H* D Creat Clearance w eGFR 6.31 Random Glucose 86 D Lactic Acid Calcium 7.4 L Phosphorus 5.3 H D Magnesium 1.9 Total Bilirubin 0.4 D AST 9 L ALT 9 L D Alkaline Phosphatase 139 H Total Protein 6.8 Albumin 3.2 L Current Medications Generic Name Dose Route Start Last Admin Trade Name Freq PRN Reason Stop Dose Admin Amlodipine Besylate 10 mg 03/06/18 10:00 03/06/18 09:22 Norvasc - PO 10 mg DAILY WALTER Administration Heparin Sodium (Porcine) 5,000 unit 03/06/18 06:00 03/06/18 13:39 Heparin - SQ 5,000 unit TID WALTER Administration Isosorbide Mononitrate 30 mg 03/06/18 10:00 03/06/18 09:22 Imdur - PO 30 mg DAILY WALTER Administration Lisinopril 20 mg 03/06/18 10:00 03/06/18 09:22 Prinivil PO 20 mg DAILY WALTER Administration Metoprolol Tartrate 25 mg 03/06/18 10:00 03/06/18 09:22 Lopressor - PO 25 mg BID WALTER Administration ASSESSMENT AND PLAN: This is a 57 year old man with a history of ESRD, HTN who presented to the ED with pain and swelling of his right arm. 1. Right arm cellulitis - Has received Zosyn, Vancomycin, Cefepime - US shows no evidence of DVT, AVF is patent - Blood cultures pending - Awaiting ID consult 2. ESRD - Nephrology consult for HD 3. Hypertension - Continue Norvasc, Lisinopril, Lopresor, Imdur
--- NOTE | 2018-03-06 15:36 | PN ---
Physical Exam: SUBJECTIVE: Patient seen and examined at bedside. No new complaints. Patient states he feels better to day. OBJECTIVE: Vital Signs Period Temp Pulse Resp BP Sys/Beyer Pulse Ox Last 24 Hr 97.2 F-98.2 F 66-76 16-20 106-166/67-103 98-100 GENERAL: The patient is awake, alert, and fully oriented, in no acute distress. NECK: Trachea midline, full range of motion, supple. LUNGS: Breath sounds equal, clear to auscultation bilaterally, no wheezes, no crackles, no accessory muscle use. HEART: Regular rate and rhythm, S1, S2 without murmur, rub or gallop. ABDOMEN: Soft, nontender, nondistended, normoactive bowel sounds, no guarding, no rebound, no hepatosplenomegaly, no masses. EXTREMITIES: 2+ pulses, warm, well-perfused, The right upper extremity is erythematous, warm, indurated and tender to palpation. The swelling is concentrated over the area of the AV fistula. NEUROLOGICAL: Cranial nerves II through X grossly intact. Normal speech, gait not observed. SKIN: Warm, dry, normal turgor, no rashes or lesions noted except as above Laboratory Results - last 24 hr 03/05/18 03/05/18 03/05/18 18:41 18:41 18:41 WBC RBC Hgb Hct MCV MCH MCHC RDW Plt Count MPV Neutrophils % Lymphocytes % Monocytes % Eosinophils % Basophils % ESR PT with INR 12.70 H INR 1.12 Sodium 139 Potassium 3.6 Chloride 102 Carbon Dioxide 26 Anion Gap 11 BUN 20 H D Creatinine 6.6 H D Creat Clearance w eGFR 8.79 Random Glucose 111 H Lactic Acid 1.4 Calcium 8.4 L Phosphorus Magnesium Total Bilirubin 0.3 D AST 10 L ALT 12 D Alkaline Phosphatase 172 H D Total Protein 8.3 H Albumin 3.8 03/05/18 03/05/18 03/06/18 18:41 18:59 06:30 WBC 4.5 D 5.1 RBC 4.25 3.87 L Hgb 12.2 D 11.0 L Hct 36.7 33.5 L MCV 86.4 86.5 MCH 28.6 28.4 MCHC 33.1 32.8 RDW 15.9 15.8 Plt Count 231 D 215 MPV 7.1 L 7.3 L Neutrophils % 40.0 L D 47.3 Lymphocytes % 41.2 H D 30.8 D Monocytes % 7.9 10.6 H Eosinophils % 8.8 H D 8.8 H Basophils % 2.1 H D 2.5 H ESR 13 PT with INR INR Sodium Potassium Chloride Carbon Dioxide Anion Gap BUN Creatinine Creat Clearance w eGFR Random Glucose Lactic Acid Calcium Phosphorus Magnesium Total Bilirubin AST ALT Alkaline Phosphatase Total Protein Albumin 03/06/18 03/06/18 06:30 06:30 WBC RBC Hgb Hct MCV MCH MCHC RDW Plt Count MPV Neutrophils % Lymphocytes % Monocytes % Eosinophils % Basophils % ESR PT with INR 13.30 H INR 1.18 H Sodium 138 Potassium 4.3 Chloride 103 Carbon Dioxide 25 Anion Gap 10 BUN 29 H D Creatinine 8.8 H* D Creat Clearance w eGFR 6.31 Random Glucose 86 D Lactic Acid Calcium 7.4 L Phosphorus 5.3 H D Magnesium 1.9 Total Bilirubin 0.4 D AST 9 L ALT 9 L D Alkaline Phosphatase 139 H Total Protein 6.8 Albumin 3.2 L Active Medications Generic Name Dose Route Start Last Admin Trade Name Freq PRN Reason Stop Dose Admin Amlodipine Besylate 10 mg 03/06/18 10:00 03/06/18 09:22 Norvasc - PO 10 mg DAILY WALTER Administration Heparin Sodium (Porcine) 5,000 unit 03/06/18 06:00 03/06/18 13:39 Heparin - SQ 5,000 unit TID WALTER Administration Isosorbide Mononitrate 30 mg 03/06/18 10:00 03/06/18 09:22 Imdur - PO 30 mg DAILY WALTER Administration Lisinopril 20 mg 03/06/18 10:00 03/06/18 09:22 Prinivil PO 20 mg DAILY WALTER Administration Metoprolol Tartrate 25 mg 03/06/18 10:00 03/06/18 09:22 Lopressor - PO 25 mg BID WALTER Administration ASSESSMENT/PLAN: This is a 57 yo m w/ PMH ESRD and HTN who is admitted for cellulitis at the site of a recent AV fistula placement #Right arm cellulitis -US RUE negative for DVT -ID onboard, f/u reccs -monitor cbc -abx as per ID -vascular sx consult #ESRD -nephro consult -dialyzed yesterday #HTN -c/w home norvasc 10mg -c/w home indur 30mg -c/w home lisinopril 20mg -c/w home lopressor 25mg BID #FEN -no fluids indicated -monitor lytes -sodium controlled diet #prophy -Hep SQ 5ku TID #Dispo -admit to med-surg Visit type - Emergency Visit Emergency Visit: Yes ED Registration Date: 03/05/18 Care time: The patient presented to the Emergency Department on the above date and was hospitalized for further evaluation of their emergent condition. - New Patient This patient is new to me today: Yes Date on this admission: 03/06/18 - Critical Care Critical Care patient: No
--- NOTE | 2018-03-06 16:08 | CONSULT ---
Consult Consult Specialty:: Nephrology Reason for Consultation:: ESRD - History of Present Illness Chief Complaint: sent in for access evaluation History of Present Illness: Pt is a 57 year old male with pmhx of ESRD, anemia, and HTN who I sent in for evaluation of HD access. He has a fistula placed in his arm that is swollen and drainage. His permacath also had discharge coming out of the tunnel. He has been on vanco as an outpt. He was sent to the ER and was discharged from the ER last month. He then refused to come back for eval afterwards. He denies fevers or chills. - Past Medical History Cardio/Vascular: Yes: HTN Gastrointestinal: Yes: GERD Renal/: Yes: Renal Failure, Hemodialysis - Alcohol/Substance Use Hx Alcohol Use: No - Smoking History Smoking history: Never smoked Have you smoked in the past 12 months: No Home Medications - Allergies Allergies/Adverse Reactions: Allergies Allergy/AdvReac Type Severity Reaction Status Date / Time No Known Allergies Allergy Verified 03/05/18 18:21 - Home Medications Home Medications: Ambulatory Orders Amlodipine Besylate [Norvasc -] 10 mg PO DAILY #30 tablet 03/27/17 Isosorbide Mononitrate [Imdur -] 30 mg PO DAILY #30 tab 06/01/17 Lisinopril 20 mg PO DAILY 02/09/18 Metoprolol Tartrate [Lopressor -] 25 mg PO BID 02/09/18 Family Disease History - Family Disease History Family History: Denies Review of Systems - Review of Systems Constitutional: reports: No Symptoms Eyes: reports: No Symptoms HENT: reports: No Symptoms Neck: reports: No Symptoms Cardiovascular: reports: No Symptoms Respiratory: reports: No Symptoms Gastrointestinal: reports: No Symptoms Genitourinary: reports: No Symptoms Musculoskeletal: reports: No Symptoms Integumentary: reports: No Symptoms Neurological: reports: No Symptoms Endocrine: reports: No Symptoms Hematology/Lymphatic: reports: No Symptoms Physical Exam Vital Signs: Vital Signs Temperature 97.9 F 03/06/18 14:25 Pulse Rate 76 03/06/18 14:25 Respiratory Rate 16 03/06/18 14:25 Blood Pressure 106/67 03/06/18 14:25 O2 Sat by Pulse Oximetry (%) 98 03/06/18 09:00 Constitutional: Yes: Calm Eyes: Yes: Conjunctiva Clear HENT: Yes: Atraumatic Cardiovascular: Yes: S1, S2 Respiratory: Yes: CTA Bilaterally Gastrointestinal: Yes: Soft Renal/: Yes: WNL Musculoskeletal: Yes: WNL Extremities: Yes: Other (fistula with erythema and drainage) Neurological: Yes: Oriented Psychiatric: Yes: Oriented Labs: CBC, BMP 03/06/18 06:30 03/06/18 06:30 Laboratory Tests 03/05/18 03/05/18 03/06/18 18:41 18:59 06:30 WBC 4.5 D 5.1 Hgb 12.2 D 11.0 L Plt Count 231 D 215 Sodium Potassium Chloride Carbon Dioxide Anion Gap BUN 20 H D Creatinine 6.6 H D Calcium 03/06/18 06:30 WBC Hgb Plt Count Sodium 138 Potassium 4.3 Chloride 103 Carbon Dioxide 25 Anion Gap 10 BUN 29 H D Creatinine 8.8 H* D Calcium 7.4 L Imaging - Results Ultrasound: Report Reviewed Problem List - Problems (1) Right arm cellulitis Code(s): L03.113 - CELLULITIS OF RIGHT UPPER LIMB (2) Swollen arm Code(s): M79.89 - OTHER SPECIFIED SOFT TISSUE DISORDERS (3) Anemia Code(s): D64.9 - ANEMIA, UNSPECIFIED (4) Dialysis catheter clot or failure Code(s): KZZ9629 - (5) ESRD (end stage renal disease) Code(s): N18.6 - END STAGE RENAL DISEASE (6) Hypertension Code(s): I10 - ESSENTIAL (PRIMARY) HYPERTENSION Qualifiers: Hypertension type: essential hypertension Qualified Code(s): I10 - Essential (primary) hypertension Assessment/Plan Current Medications Generic Name Dose Route Start Last Admin Trade Name Jenelle PRN Reason Stop Dose Admin Amlodipine Besylate 10 mg 03/06/18 10:00 03/06/18 09:22 Norvasc - PO 10 mg DAILY [facility] Administration Heparin Sodium (Porcine) 5,000 unit 03/06/18 06:00 03/06/18 13:39 Heparin - SQ 5,000 unit TID [facility] Administration Isosorbide Mononitrate 30 mg 03/06/18 10:00 03/06/18 09:22 Imdur - PO 30 mg DAILY [facility] Administration Lisinopril 20 mg 03/06/18 10:00 03/06/18 09:22 Prinivil PO 20 mg DAILY [facility] Administration Metoprolol Tartrate 25 mg 03/06/18 10:00 03/06/18 09:22 Lopressor - PO 25 mg BID [facility] Administration Impression 1. ESRD 2. HTN 3. HD access malfunction 4. anemia Plan - will arrange for HD in am - vascular eval - resume home meds - cont abx - follow cultures - discussed with ID Dr Ramos
[2018-03-06] MEDS ORDERED: PIPERACILLIN/TAZOBACTAM 2.25 GM VIAL IVPB ONE (16:51)
[2018-03-06] MEDS ORDERED: DEXTROSE 5%-WATER - 50 ML IVPB ONE (16:51)
[2018-03-06] MEDS: PIPERACILLIN/TAZOB 2.25 GM 2.25 GM in DEXTROSE 5%-WATER - 50 ML IVPB SCH (17:38)
--- NOTE | 2018-03-06 18:41 | PN ---
Progress Note (short form) - Note Progress Note: Vascular Surgery Pt seen and examined. Doing well. Left arm dressing changed. Please place bacitracin to area daily. Area of PC changed. The cuff of the pc is exposed. Please do HD blanche. Will change permacath on friday morning. NPO past midnight on friday. Jamal Lincoln DO
[2018-03-06] MEDS: BACITRACIN 15 GM TUBE TOPICAL OINTMENT TP SCH (21:23)
[2018-03-06] MEDS ORDERED: PT OWN MED DRAWER 7, Y5N ONE (22:03)
[2018-03-07] MEDS ORDERED: PIPERACILLIN/TAZOBACTAM 2.25 GM VIAL IVPB ONE ×4 (01:51→21:28)
[2018-03-07] MEDS ORDERED: DEXTROSE 5%-WATER - 50 ML IVPB ONE ×4 (01:52→21:29)
[2018-03-07] MEDS: PIPERACILLIN/TAZOB 2.25 GM 2.25 GM in DEXTROSE 5%-WATER - 50 ML IVPB SCH ×3 (01:54→18:25)
[2018-03-07] MEDS: HEPARIN NA (PORCINE) 5,000 UNITS/ML 1ML VIAL SQ SCH ×3 (05:29→23:14)
[2018-03-07] MEDS: amLODIPine BESYLATE 10 MG TABLET (FP) PO SCH (09:50)
[2018-03-07] MEDS: BACITRACIN 15 GM TUBE TOPICAL OINTMENT TP SCH (09:50)
[2018-03-07] MEDS: LISINOPRIL 20 MG TABLET (FP) PO SCH (09:50)
[2018-03-07] MEDS: METOPROLOL TARTRATE 25 MG TABLET (FP) PO SCH ×2 (09:50→23:15)
[2018-03-07] MEDS: ISOSORBIDE MONONITRATE 30 MG TAB.SR.24H (FP) PO SCH (09:50)
--- NOTE | 2018-03-07 09:51 | PN ---
Progress Note (short form) - Note Progress Note: RENAL Pt is awake and alert responding to questions appears comfortable lying down will have HD later today Last Vital Signs Temp Pulse Resp BP Pulse Ox 98.5 F 70 20 135/85 98 03/07/18 06:59 03/07/18 06:59 03/07/18 06:59 03/07/18 06:59 03/06/18 09:00 lungs clear cvs s1s2 no rub abd soft ext no le edema, +right upper ext edema neuro a+ox3 CBC, BMP 03/06/18 06:30 03/06/18 06:30 Current Medications Generic Name Dose Route Start Last Admin Trade Name Freq PRN Reason Stop Dose Admin Amlodipine Besylate 10 mg 03/06/18 10:00 03/06/18 09:22 Norvasc - PO 10 mg DAILY [facility] Administration Bacitracin 1 applic 03/06/18 19:00 03/06/18 21:23 Bacitracin - TP 1 applic DAILY [facility] Administration Epoetin Refugio 2,000 unit 03/07/18 16:10 Epogen - IVPUSH 03/07/18 16:11 ONCE ONE Heparin Sodium (Porcine) 5,000 unit 03/06/18 06:00 03/07/18 05:29 Heparin - SQ 5,000 unit TID [facility] Administration Sodium Chloride 250 mls @ 3,000 mls/hr 03/06/18 16:10 Normal Saline - IV 03/07/18 16:10 PRN PRN Hypotension during Dialysis Piperacillin Sod/Tazobactam 50 mls @ 100 mls/hr 03/06/18 18:00 03/07/18 01:54 Sod 2.25 gm/ Dextrose IVPB 100 mls/hr Q8H-IV [facility] Administration Protocol Isosorbide Mononitrate 30 mg 03/06/18 10:00 03/06/18 09:22 Imdur - PO 30 mg DAILY [facility] Administration Lisinopril 20 mg 03/06/18 10:00 03/06/18 09:22 Prinivil PO 20 mg DAILY [facility] Administration Metoprolol Tartrate 25 mg 03/06/18 10:00 03/06/18 21:23 Lopressor - PO 25 mg BID [facility] Administration Impression 1. ESRD 2. HTN 3. HD access malfunction 4. anemia Plan hd today catheter can be changed over wire since cultures are neg continue other management MV
--- NOTE | 2018-03-07 11:26 | PN ---
Progress Note, Physician History of Present Illness: clinically patient stable no complaints still draining from the wound improving - Current Medication List Current Medications: Active Medications Amlodipine Besylate (Norvasc -) 10 mg PO DAILY [facility] Last Admin: 03/07/18 09:50 Dose: 10 mg Bacitracin (Bacitracin -) 1 applic TP DAILY [facility] Last Admin: 03/07/18 09:50 Dose: 1 applic Epoetin Refugio (Epogen -) 2,000 unit IVPUSH ONCE ONE Stop: 03/07/18 16:11 Heparin Sodium (Porcine) (Heparin -) 5,000 unit SQ TID [facility] Last Admin: 03/07/18 05:29 Dose: 5,000 unit Sodium Chloride (Normal Saline -) 250 mls @ 3,000 mls/hr IV PRN PRN PRN Reason: Hypotension during Dialysis Stop: 03/07/18 16:10 Piperacillin Sod/Tazobactam (Sod 2.25 gm/ Dextrose) 50 mls @ 100 mls/hr IVPB Q8H-IV [facility] PRN Reason: Protocol Last Admin: 03/07/18 09:51 Dose: 100 mls/hr Isosorbide Mononitrate (Imdur -) 30 mg PO DAILY [facility] Last Admin: 03/07/18 09:50 Dose: 30 mg Lisinopril (Prinivil) 20 mg PO DAILY [facility] Last Admin: 03/07/18 09:50 Dose: 20 mg Metoprolol Tartrate (Lopressor -) 25 mg PO BID [facility] Last Admin: 03/07/18 09:50 Dose: 25 mg - Objective Vital Signs: Vital Signs Temperature 98.5 F 03/07/18 06:59 Pulse Rate 70 03/07/18 06:59 Respiratory Rate 20 03/07/18 06:59 Blood Pressure 135/85 03/07/18 06:59 O2 Sat by Pulse Oximetry (%) 98 03/06/18 09:00 Constitutional: Yes: No Distress, Calm HENT: Yes: Atraumatic Neck: Yes: Supple Cardiovascular: Yes: Regular Rate and Rhythm Respiratory: Yes: Regular, CTA Bilaterally Gastrointestinal: Yes: Normal Bowel Sounds, Soft Musculoskeletal: Yes: Other Extremities: Yes: Other Integumentary: Yes: Other Wound/Incision: Yes: Dressing Dry and Intact Neurological: Yes: Alert, Oriented Psychiatric: Yes: Alert, Oriented Labs: CBC, BMP 03/06/18 06:30 03/06/18 06:30 INR, PTT INR 1.18 (0.82-1.09) H 03/06/18 06:30 Assessment/Plan Problem List - Problems (1) Right arm cellulitis Code(s): L03.113 - CELLULITIS OF RIGHT UPPER LIMB (2) Swollen arm Code(s): M79.89 - OTHER SPECIFIED SOFT TISSUE DISORDERS (3) Anemia Code(s): D64.9 - ANEMIA, UNSPECIFIED (4) Dialysis catheter clot or failure Code(s): [id number] - (5) ESRD (end stage renal disease) Code(s): N18.6 - END STAGE RENAL DISEASE (6) Hypertension Code(s): I10 - ESSENTIAL (PRIMARY) HYPERTENSION Qualifiers: Hypertension type: essential hypertension Qualified Code(s): I10 - Essential (primary) hypertension plan awaiting for vascular await for cx continue abx rest as per the team
[2018-03-07] MEDS ORDERED: EPOETIN ALFA 2,000 UNIT/1 ML VIAL IVPUSH ONE (13:00)
[2018-03-07 14:03] LABS: HEMATOCRIT 30.8 % (35.4-49); MCH 28.4 pg (25.7-33.7); MCHC 32.6 g/dl (32.0-35.9); MEAN CELL VOLUME 87.3 fl (80-96); MEAN PLT VOLUME 7.6 fl (7.5-11.1); PLATELET COUNT 235 K/MM3 (134-434); RBC 3.53 M/mm3 (4.00-5.60); RDW 15.6 % (11.9-15.9); WHITE BLOOD COUNT 5.5 K/mm3 (4.0-10.0)
--- NOTE | 2018-03-07 14:06 | PN ---
Physical Exam: SUBJECTIVE: Patient seen and examined. He says his right arm feels better. OBJECTIVE: Vital Signs Period Temp Pulse Resp BP Sys/Beyer Pulse Ox Last 24 Hr 97.6 F-98.5 F 69-76 16-20 106-138/67-85 98 GENERAL: The patient is awake, alert, and fully oriented, in no acute distress. LUNGS: Breath sounds equal, clear to auscultation bilaterally, no wheezes, no crackles, no accessory muscle use. HEART: Regular rate and rhythm, S1, S2 without murmur, rub or gallop. ABDOMEN: Soft, nontender, nondistended, normoactive bowel sounds, no guarding, no rebound, no hepatosplenomegaly, no masses. EXTREMITIES: RUE edematous, erythematous, indurated Active Medications Generic Name Dose Route Start Last Admin Trade Name Freq PRN Reason Stop Dose Admin Amlodipine Besylate 10 mg 03/06/18 10:00 03/07/18 09:50 Norvasc - PO 10 mg DAILY [facility] Administration Bacitracin 1 applic 03/06/18 19:00 03/07/18 09:50 Bacitracin - TP 1 applic DAILY [facility] Administration Heparin Sodium (Porcine) 5,000 unit 03/06/18 06:00 03/07/18 13:43 Heparin - SQ Not Given TID [facility] Piperacillin Sod/Tazobactam 50 mls @ 100 mls/hr 03/06/18 18:00 03/07/18 09:51 Sod 2.25 gm/ Dextrose IVPB 100 mls/hr Q8H-IV [facility] Administration Protocol Isosorbide Mononitrate 30 mg 03/06/18 10:00 03/07/18 09:50 Imdur - PO 30 mg DAILY [facility] Administration Lisinopril 20 mg 03/06/18 10:00 03/07/18 09:50 Prinivil PO 20 mg DAILY [facility] Administration Metoprolol Tartrate 25 mg 03/06/18 10:00 03/07/18 09:50 Lopressor - PO 25 mg BID [facility] Administration ASSESSMENT/PLAN: This is a 57 year old man with a history of ESRD, HTN who presented to the ED with pain and swelling of his right arm. 1. Right arm cellulitis - Continue [facility] with HD (day 2) - Continue Bacitracin to RUE wound - US shows no evidence of DVT, AVF is patent - Blood cultures negative after 24 hrs - Wound culture growing rare gram neg rods 2. ESRD - Continue HD 3. Hypertension - Continue Norvasc, Lisinopril, Lopresor, Imdur Visit type - Emergency Visit Emergency Visit: Yes ED Registration Date: 03/05/18 Care time: The patient presented to the Emergency Department on the above date and was hospitalized for further evaluation of their emergent condition. - New Patient This patient is new to me today: No - Critical Care Critical Care patient: No - Discharge Referral Referred to [facility] No
[2018-03-08] MEDS: PIPERACILLIN/TAZOB 2.25 GM 2.25 GM in DEXTROSE 5%-WATER - 50 ML IVPB SCH ×3 (02:23→18:13)
[2018-03-08] MEDS: HEPARIN NA (PORCINE) 5,000 UNITS/ML 1ML VIAL SQ SCH ×3 (06:49→22:37)
--- NOTE | 2018-03-08 09:53 | PN ---
Progress Note (short form) - Note Progress Note: RENAL Pt is awake and alert responding to questions appears comfortable lying down denies complaints Last Vital Signs Temp Pulse Resp BP Pulse Ox 97.9 F 74 20 147/90 98 03/08/18 06:39 03/08/18 06:39 03/08/18 06:39 03/08/18 06:39 03/07/18 21:00 lungs clear cvs s1s2 no rub abd soft ext no le edema, +right upper ext edema neuro a+ox3 CBC, BMP 03/07/18 13:20 03/06/18 06:30 Current Medications Generic Name Dose Route Start Last Admin Trade Name Freivdya PRN Reason Stop Dose Admin Amlodipine Besylate 10 mg 03/06/18 10:00 03/07/18 09:50 Norvasc - PO 10 mg DAILY [facility] Administration Bacitracin 1 applic 03/06/18 19:00 03/07/18 09:50 Bacitracin - TP 1 applic DAILY [facility] Administration Heparin Sodium (Porcine) 5,000 unit 03/06/18 06:00 03/08/18 06:49 Heparin - SQ 5,000 unit TID [facility] Administration Piperacillin Sod/Tazobactam 50 mls @ 100 mls/hr 03/06/18 18:00 03/08/18 02:23 Sod 2.25 gm/ Dextrose IVPB 100 mls/hr Q8H-IV [facility] Administration Protocol Isosorbide Mononitrate 30 mg 03/06/18 10:00 03/07/18 09:50 Imdur - PO 30 mg DAILY [facility] Administration Lisinopril 20 mg 03/06/18 10:00 03/07/18 09:50 Prinivil PO 20 mg DAILY [facility] Administration Metoprolol Tartrate 25 mg 03/06/18 10:00 03/07/18 23:15 Lopressor - PO 25 mg BID [facility] Administration Impression 1. ESRD 2. HTN 3. HD access malfunction 4. anemia Plan for catheter exchange tomorrow continue current management MV
[2018-03-08] MEDS ORDERED: DEXTROSE 5%-WATER - 50 ML IVPB ONE ×3 (10:58→21:01)
[2018-03-08] MEDS ORDERED: PIPERACILLIN/TAZOBACTAM 2.25 GM VIAL IVPB ONE ×3 (10:58→21:01)
[2018-03-08] MEDS: METOPROLOL TARTRATE 25 MG TABLET (FP) PO SCH ×2 (11:08→22:38)
[2018-03-08] MEDS: amLODIPine BESYLATE 10 MG TABLET (FP) PO SCH (11:08)
[2018-03-08] MEDS: ISOSORBIDE MONONITRATE 30 MG TAB.SR.24H (FP) PO SCH (11:08)
[2018-03-08] MEDS: LISINOPRIL 20 MG TABLET (FP) PO SCH (11:08)
[2018-03-08] MEDS: BACITRACIN 15 GM TUBE TOPICAL OINTMENT TP SCH (11:10)
--- NOTE | 2018-03-08 12:25 | PN ---
Physical Exam: SUBJECTIVE: Patient seen and examined. No complaints. OBJECTIVE: Vital Signs Period Temp Pulse Resp BP Sys/Beyer Pulse Ox Last 24 Hr 97.9 F-98.3 F 62-82 18-20 118-147/70-90 98 GENERAL: The patient is awake, alert, and fully oriented, in no acute distress. LUNGS: Breath sounds equal, clear to auscultation bilaterally, no wheezes, no crackles, no accessory muscle use. HEART: Regular rate and rhythm, S1, S2 without murmur, rub or gallop. ABDOMEN: Soft, nontender, nondistended, normoactive bowel sounds, no guarding, no rebound, no hepatosplenomegaly, no masses. EXTREMITIES: RUE less edematous, erythematous, indurated Laboratory Results - last 24 hr 03/07/18 13:20 WBC 5.5 RBC 3.53 L Hgb 10.0 L Hct 30.8 L MCV 87.3 MCH 28.4 MCHC 32.6 RDW 15.6 Plt Count 235 MPV 7.6 Active Medications Generic Name Dose Route Start Last Admin Trade Name Freq PRN Reason Stop Dose Admin Amlodipine Besylate 10 mg 03/06/18 10:00 03/08/18 11:08 Norvasc - PO 10 mg DAILY [facility] Administration Bacitracin 1 applic 03/06/18 19:00 03/08/18 11:10 Bacitracin - TP 1 applic DAILY [facility] Administration Heparin Sodium (Porcine) 5,000 unit 03/06/18 06:00 03/08/18 06:49 Heparin - SQ 5,000 unit TID [facility] Administration Piperacillin Sod/Tazobactam 50 mls @ 100 mls/hr 03/06/18 18:00 03/08/18 11:08 Sod 2.25 gm/ Dextrose IVPB 100 mls/hr Q8H-IV [facility] Administration Protocol Isosorbide Mononitrate 30 mg 03/06/18 10:00 03/08/18 11:08 Imdur - PO 30 mg DAILY [facility] Administration Lisinopril 20 mg 03/06/18 10:00 03/08/18 11:08 Prinivil PO 20 mg DAILY [facility] Administration Metoprolol Tartrate 25 mg 03/06/18 10:00 03/08/18 11:08 Lopressor - PO 25 mg BID [facility] Administration ASSESSMENT/PLAN: This is a 57 year old man with a history of ESRD, HTN who presented to the ED with pain and swelling of his right arm. 1. Right arm cellulitis - Continue Zosyn, Vanco with HD (day 3) - Continue Bacitracin to RUE wound - US shows no evidence of DVT, AVF is patent - Blood cultures negative after 48 hrs - Wound culture growing Enterobacter 2. ESRD - Continue HD // - Plan for Permacath change tomorrow 3. Hypertension - Continue Norvasc, Lisinopril, Lopresor, Imdur Visit type - Emergency Visit Emergency Visit: Yes ED Registration Date: 03/05/18 Care time: The patient presented to the Emergency Department on the above date and was hospitalized for further evaluation of their emergent condition. - New Patient This patient is new to me today: No - Critical Care Critical Care patient: No - Discharge Referral Referred to [facility] No
--- NOTE | 2018-03-08 13:03 | PN ---
Progress Note, Physician History of Present Illness: clinically patient stable no complaints vascular on case - Current Medication List Current Medications: Active Medications Amlodipine Besylate (Norvasc -) 10 mg PO DAILY [facility] Last Admin: 03/08/18 11:08 Dose: 10 mg Bacitracin (Bacitracin -) 1 applic TP DAILY [facility] Last Admin: 03/08/18 11:10 Dose: 1 applic Heparin Sodium (Porcine) (Heparin -) 5,000 unit SQ TID [facility] Last Admin: 03/08/18 06:49 Dose: 5,000 unit Piperacillin Sod/Tazobactam (Sod 2.25 gm/ Dextrose) 50 mls @ 100 mls/hr IVPB Q8H-IV [facility] PRN Reason: Protocol Last Admin: 03/08/18 11:08 Dose: 100 mls/hr Isosorbide Mononitrate (Imdur -) 30 mg PO DAILY [facility] Last Admin: 03/08/18 11:08 Dose: 30 mg Lisinopril (Prinivil) 20 mg PO DAILY [facility] Last Admin: 03/08/18 11:08 Dose: 20 mg Metoprolol Tartrate (Lopressor -) 25 mg PO BID [facility] Last Admin: 03/08/18 11:08 Dose: 25 mg - Objective Vital Signs: Vital Signs Temperature 97.9 F 03/08/18 06:39 Pulse Rate 74 03/08/18 06:39 Respiratory Rate 20 03/08/18 06:39 Blood Pressure 147/90 03/08/18 06:39 O2 Sat by Pulse Oximetry (%) 98 03/07/18 21:00 Constitutional: Yes: No Distress, Calm Cardiovascular: Yes: Regular Rate and Rhythm Respiratory: Yes: Regular, CTA Bilaterally Gastrointestinal: Yes: Normal Bowel Sounds, Soft Extremities: Yes: Other Wound/Incision: Yes: Dressing Dry and Intact Neurological: Yes: Alert, Oriented Psychiatric: Yes: Alert, Oriented Labs: CBC, BMP 03/07/18 13:20 03/06/18 06:30 INR, PTT INR 1.18 (0.82-1.09) H 03/06/18 06:30 Assessment/Plan Problem List - Problems (1) Right arm cellulitis Code(s): L03.113 - CELLULITIS OF RIGHT UPPER LIMB (2) Swollen arm Code(s): M79.89 - OTHER SPECIFIED SOFT TISSUE DISORDERS (3) Anemia Code(s): D64.9 - ANEMIA, UNSPECIFIED (4) Dialysis catheter clot or failure Code(s): [id number] - (5) ESRD (end stage renal disease) Code(s): N18.6 - END STAGE RENAL DISEASE (6) Hypertension Code(s): I10 - ESSENTIAL (PRIMARY) HYPERTENSION Qualifiers: Hypertension type: essential hypertension Qualified Code(s): I10 - Essential (primary) hypertension plan vascular note noted change of permacath cx result noted vanco stopped continue zosyn
[2018-03-09] MEDS: PIPERACILLIN/TAZOB 2.25 GM 2.25 GM in DEXTROSE 5%-WATER - 50 ML IVPB SCH ×3 (02:20→17:15)
[2018-03-09] MEDS: HEPARIN NA (PORCINE) 5,000 UNITS/ML 1ML VIAL SQ SCH ×3 (06:50→22:32)
[2018-03-09 08:36] LABS: BASO % 1.7 % (0-2.0); EOS % 10.6 % (0-4.5); HEMATOCRIT 31.9 % (35.4-49); HEMOGLOBIN 10.4 GM/dL (11.7-16.9); LYMPH % 35.4 % (8-40); MCH 28.4 pg (25.7-33.7); MCHC 32.6 g/dl (32.0-35.9); MEAN CELL VOLUME 87.1 fl (80-96); MONO % 9.7 % (3.8-10.2); NEUT % 42.6 % (42.8-82.8); PLATELET COUNT 199 K/MM3 (134-434); RBC 3.67 M/mm3 (4.00-5.60); RDW 15.5 % (11.9-15.9); WHITE BLOOD COUNT 5.7 K/mm3 (4.0-10.0)
[2018-03-09 08:39] LABS: ANION GAP 12 (8-16); BLOOD UREA NITROGEN 35 mg/dL (7-18); CALCIUM 7.6 mg/dL (8.5-10.1); CHLORIDE 100 mmol/L (98-107); CO2 28 mmol/L (21-32); GLUCOSE,RANDOM 79 mg/dL (74-106); POTASSIUM 4.7 mmol/L (3.5-5.1); SODIUM 140 mmol/L (136-145)
[2018-03-09 09:01] LABS: CREATININE 10.5 mg/dL (0.7-1.3)
[2018-03-09] MEDS ORDERED: DEXTROSE 5%-WATER - 50 ML IVPB ONE ×2 (10:48→17:12)
[2018-03-09] MEDS ORDERED: PIPERACILLIN/TAZOBACTAM 2.25 GM VIAL IVPB ONE ×2 (10:48→17:12)
[2018-03-09] MEDS: ISOSORBIDE MONONITRATE 30 MG TAB.SR.24H (FP) PO SCH (10:52)
[2018-03-09] MEDS: METOPROLOL TARTRATE 25 MG TABLET (FP) PO SCH ×2 (10:53→22:32)
[2018-03-09] MEDS: amLODIPine BESYLATE 10 MG TABLET (FP) PO SCH (10:53)
[2018-03-09] MEDS: LISINOPRIL 20 MG TABLET (FP) PO SCH (10:53)
[2018-03-09] MEDS: BACITRACIN 15 GM TUBE TOPICAL OINTMENT TP SCH (10:55)
[2018-03-09] MEDS ORDERED: PT OWN MED DRAWER 7, Y5N ONE (13:36)
--- NOTE | 2018-03-09 14:54 | PN ---
Progress Note, Physician History of Present Illness: Pt seen and examined at bedside. He is awake and alert. He denies shortness of breath. He is going for catheter change today. - Current Medication List Current Medications: Active Medications Amlodipine Besylate (Norvasc -) 10 mg PO DAILY [facility] Last Admin: 03/09/18 10:53 Dose: 10 mg Bacitracin (Bacitracin -) 1 applic TP DAILY [facility] Last Admin: 03/09/18 10:55 Dose: 1 applic Heparin Sodium (Porcine) (Heparin -) 5,000 unit SQ TID [facility] Last Admin: 03/09/18 14:26 Dose: Not Given Piperacillin Sod/Tazobactam (Sod 2.25 gm/ Dextrose) 50 mls @ 100 mls/hr IVPB Q8H-IV [facility] PRN Reason: Protocol Last Admin: 03/09/18 10:53 Dose: 100 mls/hr Isosorbide Mononitrate (Imdur -) 30 mg PO DAILY [facility] Last Admin: 03/09/18 10:52 Dose: 30 mg Lisinopril (Prinivil) 20 mg PO DAILY [facility] Last Admin: 03/09/18 10:53 Dose: 20 mg Metoprolol Tartrate (Lopressor -) 25 mg PO BID [facility] Last Admin: 03/09/18 10:53 Dose: 25 mg - Objective Vital Signs: Vital Signs Temperature 97.9 F 03/09/18 09:15 Pulse Rate 67 03/09/18 09:15 Respiratory Rate 18 03/09/18 09:15 Blood Pressure 152/87 03/09/18 09:15 O2 Sat by Pulse Oximetry (%) 98 03/08/18 22:00 Constitutional: Yes: Calm Eyes: Yes: Conjunctiva Clear HENT: Yes: Atraumatic Neck: Yes: Supple Cardiovascular: Yes: S1, S2 Respiratory: Yes: CTA Bilaterally Gastrointestinal: Yes: Normal Bowel Sounds, Soft Genitourinary: Yes: WNL Extremities: Yes: Other (right arm swelling) Edema: Yes Edema: RUE: 1+ Neurological: Yes: Oriented Psychiatric: Yes: Oriented Labs: CBC, BMP 03/09/18 06:30 03/09/18 06:30 INR, PTT INR 1.18 (0.82-1.09) H 03/06/18 06:30 Problem List - Problems (1) Right arm cellulitis Code(s): L03.113 - CELLULITIS OF RIGHT UPPER LIMB (2) Swollen arm Code(s): M79.89 - OTHER SPECIFIED SOFT TISSUE DISORDERS (3) Anemia Code(s): D64.9 - ANEMIA, UNSPECIFIED (4) Dialysis catheter clot or failure Code(s): [id number] - (5) ESRD (end stage renal disease) Code(s): N18.6 - END STAGE RENAL DISEASE (6) Hypertension Code(s): I10 - ESSENTIAL (PRIMARY) HYPERTENSION Qualifiers: Hypertension type: essential hypertension Qualified Code(s): I10 - Essential (primary) hypertension Assessment/Plan Current Medications Generic Name Dose Route Start Last Admin Trade Name Freq PRN Reason Stop Dose Admin Amlodipine Besylate 10 mg 03/06/18 10:00 03/09/18 10:53 Norvasc - PO 10 mg DAILY [facility] Administration Bacitracin 1 applic 03/06/18 19:00 03/09/18 10:55 Bacitracin - TP 1 applic DAILY [facility] Administration Heparin Sodium (Porcine) 5,000 unit 03/06/18 06:00 03/09/18 14:26 Heparin - SQ Not Given TID [facility] Piperacillin Sod/Tazobactam 50 mls @ 100 mls/hr 03/06/18 18:00 03/09/18 10:53 Sod 2.25 gm/ Dextrose IVPB 100 mls/hr Q8H-IV [facility] Administration Protocol Isosorbide Mononitrate 30 mg 03/06/18 10:00 03/09/18 10:52 Imdur - PO 30 mg DAILY [facility] Administration Lisinopril 20 mg 03/06/18 10:00 03/09/18 10:53 Prinivil PO 20 mg DAILY [facility] Administration Metoprolol Tartrate 25 mg 03/06/18 10:00 03/09/18 10:53 Lopressor - PO 25 mg BID [facility] Administration Impression 1. ESRD 2. HTN 3. HD access malfunction 4. anemia Plan - permacath to be changed today - vascular surgery follow up - monitor bp - cont abx per ID - blood cultures no growth to date - HD in am Dr Ramos
--- NOTE | 2018-03-09 18:55 | PN ---
Teaching Attending Note Name of Resident: Rustam Licona ATTENDING PHYSICIAN STATEMENT I saw and evaluated the patient. I reviewed the resident's note and discussed the case with the resident. I agree with the resident's findings and plan as documented. SUBJECTIVE: No complaints. OBJECTIVE: Vital Signs Period Temp Pulse Resp BP Sys/Beyer Pulse Ox Last 24 Hr 97.9 F-98.2 F 67-84 18-20 118-152/53-87 98-98 HEART: S1S2, RRR LUNGS: Clear ABDOMEN: Soft, non-tender, non-distended, normal BS EXTREMITIES: Improving RUE edema, erythema, induration Laboratory Results - last 24 hr 03/09/18 03/09/18 06:30 06:30 WBC 5.7 RBC 3.67 L Hgb 10.4 L Hct 31.9 L MCV 87.1 MCH 28.4 MCHC 32.6 RDW 15.5 Plt Count 199 MPV 8.0 Neutrophils % 42.6 L Lymphocytes % 35.4 Monocytes % 9.7 Eosinophils % 10.6 H Basophils % 1.7 Sodium 140 Potassium 4.7 Chloride 100 Carbon Dioxide 28 Anion Gap 12 BUN 35 H D Creatinine 10.5 H* Random Glucose 79 Calcium 7.6 L Current Medications Generic Name Dose Route Start Last Admin Trade Name Freq PRN Reason Stop Dose Admin Amlodipine Besylate 10 mg 03/06/18 10:00 03/09/18 10:53 Norvasc - PO 10 mg DAILY [facility] Administration Bacitracin 1 applic 03/06/18 19:00 03/09/18 10:55 Bacitracin - TP 1 applic DAILY [facility] Administration Epoetin Refugio 4,000 unit 03/10/18 14:55 Epogen - IVPUSH 03/10/18 14:56 ONCE ONE Heparin Sodium (Porcine) 5,000 unit 03/06/18 06:00 03/09/18 14:26 Heparin - SQ Not Given TID [facility] Piperacillin Sod/Tazobactam 50 mls @ 100 mls/hr 03/06/18 18:00 03/09/18 17:15 Sod 2.25 gm/ Dextrose IVPB 100 mls/hr Q8H-IV [facility] Administration Protocol Sodium Chloride 250 mls @ 3,000 mls/hr 03/09/18 14:55 Normal Saline - IV 03/10/18 14:55 PRN PRN Hypotension during Dialysis Isosorbide Mononitrate 30 mg 03/06/18 10:00 03/09/18 10:52 Imdur - PO 30 mg DAILY [facility] Administration Lisinopril 20 mg 03/06/18 10:00 03/09/18 10:53 Prinivil PO 20 mg DAILY [facility] Administration Metoprolol Tartrate 25 mg 03/06/18 10:00 03/09/18 10:53 Lopressor - PO 25 mg BID [facility] Administration ASSESSMENT AND PLAN: This is a 57 year old man with a history of ESRD, HTN who presented to the ED with pain and swelling of his right arm. 1. Right arm cellulitis - Continue Zosyn, Vanco with HD (day 3) - Continue Bacitracin to RUE wound - US shows no evidence of DVT, AVF is patent - Blood cultures negative after 72 hrs - Wound culture growing Enterobacter 2. ESRD - Continue HD - Plan for Permacath change today 3. Hypertension - Continue Norvasc, Lisinopril, Lopresor, Imdur
--- NOTE | 2018-03-09 20:09 | PN ---
Progress Note (short form) - Note Progress Note: VAscular Surgery Pt seen and examined. Fed pt today because I could not do the case until 10pm due to the OR being busy. Pt has a exposed cuff of permacath. Pt will get HD blanche. Will do exchange on fri. Jamal shaver DO
--- NOTE | 2018-03-09 20:47 | PN ---
Physical Exam: SUBJECTIVE: Patient seen and examined at bedside. Patient states arm feels better. No events overnight. no new complaints. OBJECTIVE: Vital Signs Period Temp Pulse Resp BP Sys/Beyer Pulse Ox Last 24 Hr 97.9 F-98.2 F 67-84 18-20 118-152/53-87 98-98 GENERAL: The patient is awake, alert, and fully oriented, in no acute distress. NECK: Trachea midline, full range of motion, supple. LUNGS: Breath sounds equal, clear to auscultation bilaterally, no wheezes, no crackles, no accessory muscle use. HEART: Regular rate and rhythm, S1, S2 without murmur, rub or gallop. ABDOMEN: Soft, nontender, nondistended, normoactive bowel sounds, no guarding, no rebound, no hepatosplenomegaly, no masses. EXTREMITIES: 2+ pulses, warm, well-perfused, warmth, erythema nd induration of right arm greatly improved since admission. NEUROLOGICAL: Cranial nerves II through X grossly intact. Normal speech, gait not observed. PSYCH: Normal mood, normal affect. SKIN: Warm, dry, normal turgor, no rashes or lesions noted Laboratory Results - last 24 hr 03/09/18 03/09/18 06:30 06:30 WBC 5.7 RBC 3.67 L Hgb 10.4 L Hct 31.9 L MCV 87.1 MCH 28.4 MCHC 32.6 RDW 15.5 Plt Count 199 MPV 8.0 Neutrophils % 42.6 L Lymphocytes % 35.4 Monocytes % 9.7 Eosinophils % 10.6 H Basophils % 1.7 Sodium 140 Potassium 4.7 Chloride 100 Carbon Dioxide 28 Anion Gap 12 BUN 35 H D Creatinine 10.5 H* Random Glucose 79 Calcium 7.6 L Active Medications Generic Name Dose Route Start Last Admin Trade Name Freq PRN Reason Stop Dose Admin Amlodipine Besylate 10 mg 03/06/18 10:00 03/09/18 10:53 Norvasc - PO 10 mg DAILY [facility] Administration Bacitracin 1 applic 03/06/18 19:00 03/09/18 10:55 Bacitracin - TP 1 applic DAILY [facility] Administration Epoetin Refugio 4,000 unit 03/10/18 14:55 Epogen - IVPUSH 03/10/18 14:56 ONCE ONE Heparin Sodium (Porcine) 5,000 unit 03/06/18 06:00 04/09/18 14:26 Heparin - SQ Not Given TID [facility] Piperacillin Sod/Tazobactam 50 mls @ 100 mls/hr 03/06/18 18:00 03/09/18 17:15 Sod 2.25 gm/ Dextrose IVPB 100 mls/hr Q8H-IV [facility] Administration Protocol Sodium Chloride 250 mls @ 3,000 mls/hr 03/09/18 14:55 Normal Saline - IV 03/10/18 14:55 PRN PRN Hypotension during Dialysis Isosorbide Mononitrate 30 mg 03/06/18 10:00 03/09/18 10:52 Imdur - PO 30 mg DAILY [facility] Administration Lisinopril 20 mg 03/06/18 10:00 03/09/18 10:53 Prinivil PO 20 mg DAILY [facility] Administration Metoprolol Tartrate 25 mg 03/06/18 10:00 03/09/18 10:53 Lopressor - PO 25 mg BID [facility] Administration ASSESSMENT/PLAN: This is a 57 year old man with a history of ESRD, HTN who is admitted for right arm cellulitis and permacath exchange. #Right arm cellulitis -C/w Zosyn (Day 3) -c/w Vanco with HD (day 3) -Bacitracin to RUE wound -doppler negative for DVT, shows patent AVF -BCX NGTD -Wound cx growing Enterobacter #Dislodged permacath -could not go to OR today 2/2 delays -pt fed. -per Dr. Lincoln, jalen for exchange wed #ESRD -HD // -will dialyze through dislodged cath tomorrow #Hypertension -c/w home Norvasc, Lisinopril, Lopresor, Imdur #FEN -no fluids indicated -monitor lytes -renal diet #prophy -hep SQ 5ku TID #dispo -admit to med surg Visit type - Emergency Visit Emergency Visit: Yes ED Registration Date: 03/05/18 Care time: The patient presented to the Emergency Department on the above date and was hospitalized for further evaluation of their emergent condition. - New Patient This patient is new to me today: No - Critical Care Critical Care patient: No
--- NOTE | 2018-03-09 21:38 | PN ---
Progress Note, Physician History of Present Illness: stable no issues vascular note noted or was busy - Current Medication List Current Medications: Active Medications Amlodipine Besylate (Norvasc -) 10 mg PO DAILY [facility] Last Admin: 03/09/18 10:53 Dose: 10 mg Bacitracin (Bacitracin -) 1 applic TP DAILY [facility] Last Admin: 03/09/18 10:55 Dose: 1 applic Epoetin Refugio (Epogen -) 4,000 unit IVPUSH ONCE ONE Stop: 03/10/18 14:56 Heparin Sodium (Porcine) (Heparin -) 5,000 unit SQ TID [facility] Last Admin: 03/09/18 14:26 Dose: Not Given Piperacillin Sod/Tazobactam (Sod 2.25 gm/ Dextrose) 50 mls @ 100 mls/hr IVPB Q8H-IV [facility] PRN Reason: Protocol Last Admin: 03/09/18 17:15 Dose: 100 mls/hr Sodium Chloride (Normal Saline -) 250 mls @ 3,000 mls/hr IV PRN PRN PRN Reason: Hypotension during Dialysis Stop: 03/10/18 14:55 Isosorbide Mononitrate (Imdur -) 30 mg PO DAILY [facility] Last Admin: 03/09/18 10:52 Dose: 30 mg Lisinopril (Prinivil) 20 mg PO DAILY [facility] Last Admin: 03/09/18 10:53 Dose: 20 mg Metoprolol Tartrate (Lopressor -) 25 mg PO BID [facility] Last Admin: 03/09/18 10:53 Dose: 25 mg - Objective Vital Signs: Vital Signs Temperature 98 F 03/09/18 16:30 Pulse Rate 84 03/09/18 16:30 Respiratory Rate 20 03/09/18 16:30 Blood Pressure 152/83 03/09/18 16:30 O2 Sat by Pulse Oximetry (%) 98 03/08/18 22:00 Constitutional: Yes: No Distress, Calm Cardiovascular: Yes: Regular Rate and Rhythm Respiratory: Yes: Regular, CTA Bilaterally Gastrointestinal: Yes: Normal Bowel Sounds, Soft Musculoskeletal: Yes: WNL Extremities: Yes: Other Wound/Incision: Yes: Dressing Dry and Intact Neurological: Yes: Alert, Oriented Psychiatric: Yes: Alert, Oriented Labs: CBC, BMP 03/09/18 06:30 03/09/18 06:30 INR, PTT INR 1.18 (0.82-1.09) H 03/06/18 06:30 Assessment/Plan Problem List - Problems (1) Right arm cellulitis Code(s): L03.113 - CELLULITIS OF RIGHT UPPER LIMB (2) Swollen arm Code(s): M79.89 - OTHER SPECIFIED SOFT TISSUE DISORDERS (3) Anemia Code(s): D64.9 - ANEMIA, UNSPECIFIED (4) Dialysis catheter clot or failure Code(s): [id number] - (5) ESRD (end stage renal disease) Code(s): N18.6 - END STAGE RENAL DISEASE (6) Hypertension Code(s): I10 - ESSENTIAL (PRIMARY) HYPERTENSION Qualifiers: Hypertension type: essential hypertension Qualified Code(s): I10 - Essential (primary) hypertension plan vascular note noted change of permacath continue zosyn once cleared from vascular will change abx to oral rest as per the team
[2018-03-10] MEDS ORDERED: DEXTROSE 5%-WATER - 50 ML IVPB ONE ×3 (01:54→17:58)
[2018-03-10] MEDS ORDERED: PIPERACILLIN/TAZOBACTAM 2.25 GM VIAL IVPB ONE ×3 (01:54→17:57)
[2018-03-10] MEDS: PIPERACILLIN/TAZOB 2.25 GM 2.25 GM in DEXTROSE 5%-WATER - 50 ML IVPB SCH ×3 (02:25→18:03)
[2018-03-10] MEDS: HEPARIN NA (PORCINE) 5,000 UNITS/ML 1ML VIAL SQ SCH ×3 (05:27→21:47)
[2018-03-10] MEDS ORDERED: VANCOMYCIN 1,000 MG in DEXTROSE 5%-WATER - 250 ML IVPB ONE (06:00)
[2018-03-10] MEDS ORDERED: SODIUM CHLORIDE 250 ML IV PRN (09:09)
[2018-03-10] MEDS: BACITRACIN 15 GM TUBE TOPICAL OINTMENT TP SCH ×2 (10:25→18:08)
[2018-03-10] MEDS: ISOSORBIDE MONONITRATE 30 MG TAB.SR.24H (FP) PO SCH ×2 (10:26→18:04)
[2018-03-10] MEDS: amLODIPine BESYLATE 10 MG TABLET (FP) PO SCH (10:26)
[2018-03-10] MEDS: LISINOPRIL 20 MG TABLET (FP) PO SCH (10:26)
[2018-03-10] MEDS: METOPROLOL TARTRATE 25 MG TABLET (FP) PO SCH ×2 (10:26→22:21)
[2018-03-10 11:20] LABS: HEMATOCRIT 33.2 % (35.4-49); HEMOGLOBIN 10.9 GM/dL (11.7-16.9); MCH 28.6 pg (25.7-33.7); MCHC 32.9 g/dl (32.0-35.9); MEAN PLT VOLUME 7.8 fl (7.5-11.1); PLATELET COUNT 215 K/MM3 (134-434); RBC 3.82 M/mm3 (4.00-5.60); RDW 15.9 % (11.9-15.9); WHITE BLOOD COUNT 4.4 K/mm3 (4.0-10.0)
[2018-03-10 11:52] LABS: ANION GAP 12 (8-16); BLOOD UREA NITROGEN 48 mg/dL (7-18); CALCIUM 7.8 mg/dL (8.5-10.1); CHLORIDE 99 mmol/L (98-107); CO2 27 mmol/L (21-32); GLUCOSE,RANDOM 97 mg/dL (74-106); POTASSIUM 5.7 mmol/L (3.5-5.1); SODIUM 138 mmol/L (136-145)
[2018-03-10 12:49] LABS: CREATININE 12.6 mg/dL (0.7-1.3)
--- NOTE | 2018-03-10 13:13 | PN ---
Progress Note, Physician History of Present Illness: patient stable awaiting for catheter change all cx result noted patient for dialysis - Current Medication List Current Medications: Active Medications Amlodipine Besylate (Norvasc -) 10 mg PO DAILY [facility] Last Admin: 03/10/18 10:26 Dose: Not Given Bacitracin (Bacitracin -) 1 applic TP DAILY [facility] Last Admin: 03/10/18 10:25 Dose: Not Given Heparin Sodium (Porcine) (Heparin -) 5,000 unit SQ TID [facility] Last Admin: 03/10/18 05:27 Dose: 5,000 unit Piperacillin Sod/Tazobactam (Sod 2.25 gm/ Dextrose) 50 mls @ 100 mls/hr IVPB Q8H-IV [facility] PRN Reason: Protocol Last Admin: 03/10/18 10:27 Dose: Not Given Isosorbide Mononitrate (Imdur -) 30 mg PO DAILY [facility] Last Admin: 03/10/18 10:26 Dose: Not Given Lisinopril (Prinivil) 20 mg PO DAILY [facility] Last Admin: 03/10/18 10:26 Dose: Not Given Metoprolol Tartrate (Lopressor -) 25 mg PO BID [facility] Last Admin: 03/10/18 10:26 Dose: Not Given - Objective Vital Signs: Vital Signs Temperature 97.6 F 03/10/18 06:58 Pulse Rate 60 03/10/18 11:55 Respiratory Rate 18 03/10/18 11:55 Blood Pressure 152/99 03/10/18 11:55 O2 Sat by Pulse Oximetry (%) 98 03/09/18 21:00 Constitutional: Yes: No Distress, Calm HENT: Yes: Other (permacath) Cardiovascular: Yes: Regular Rate and Rhythm Respiratory: Yes: Regular, CTA Bilaterally Gastrointestinal: Yes: Normal Bowel Sounds, Soft Musculoskeletal: Yes: WNL Extremities: Yes: Other Wound/Incision: Yes: Dressing Dry and Intact Neurological: Yes: Alert, Oriented Psychiatric: Yes: Alert, Oriented Labs: CBC, BMP 03/10/18 10:35 03/10/18 10:35 INR, PTT INR 1.18 (0.82-1.09) H 03/06/18 06:30 Assessment/Plan Problem List - Problems (1) Right arm cellulitis Code(s): L03.113 - CELLULITIS OF RIGHT UPPER LIMB (2) Swollen arm Code(s): M79.89 - OTHER SPECIFIED SOFT TISSUE DISORDERS (3) Anemia Code(s): D64.9 - ANEMIA, UNSPECIFIED (4) Dialysis catheter clot or failure Code(s): [id number] - (5) ESRD (end stage renal disease) Code(s): N18.6 - END STAGE RENAL DISEASE (6) Hypertension Code(s): I10 - ESSENTIAL (PRIMARY) HYPERTENSION Qualifiers: Hypertension type: essential hypertension Qualified Code(s): I10 - Essential (primary) hypertension plan vascular note noted awaitig for change of permacath continue zosyn once cleared from vascular will change abx to oral rest as per the team
[2018-03-10] MEDS: EPOETIN ALFA 2,000 UNIT/1 ML VIAL IVPUSH ONE ×2 (14:00→15:00)
--- NOTE | 2018-03-10 14:52 | PN ---
Progress Note, Physician History of Present Illness: Pt seen and examined at bedside. He is getting HD. Catheter was not removed as the OR was busy. - Current Medication List Current Medications: Active Medications Amlodipine Besylate (Norvasc -) 10 mg PO DAILY [facility] Last Admin: 03/10/18 10:26 Dose: Not Given Bacitracin (Bacitracin -) 1 applic TP DAILY [facility] Last Admin: 03/10/18 10:25 Dose: Not Given Heparin Sodium (Porcine) (Heparin -) 5,000 unit SQ TID [facility] Last Admin: 03/10/18 05:27 Dose: 5,000 unit Piperacillin Sod/Tazobactam (Sod 2.25 gm/ Dextrose) 50 mls @ 100 mls/hr IVPB Q8H-IV [facility] PRN Reason: Protocol Last Admin: 03/10/18 10:27 Dose: Not Given Isosorbide Mononitrate (Imdur -) 30 mg PO DAILY [facility] Last Admin: 03/10/18 10:26 Dose: Not Given Lisinopril (Prinivil) 20 mg PO DAILY [facility] Last Admin: 03/10/18 10:26 Dose: Not Given Metoprolol Tartrate (Lopressor -) 25 mg PO BID [facility] Last Admin: 03/10/18 10:26 Dose: Not Given - Objective Vital Signs: Vital Signs Temperature 97.6 F 03/10/18 06:58 Pulse Rate 61 03/10/18 12:55 Respiratory Rate 18 03/10/18 12:55 Blood Pressure 143/94 03/10/18 12:55 O2 Sat by Pulse Oximetry (%) 98 03/09/18 21:00 Constitutional: Yes: Calm Eyes: Yes: Conjunctiva Clear HENT: Yes: Atraumatic Neck: Yes: Supple Cardiovascular: Yes: S1, S2 Respiratory: Yes: CTA Bilaterally Gastrointestinal: Yes: Normal Bowel Sounds, Soft Genitourinary: Yes: WNL Musculoskeletal: Yes: WNL Edema: Yes Edema: RUE: 1+ Neurological: Yes: Oriented Psychiatric: Yes: Oriented Labs: CBC, BMP 03/10/18 10:35 03/10/18 10:35 INR, PTT INR 1.18 (0.82-1.09) H 03/06/18 06:30 Problem List - Problems (1) Right arm cellulitis Code(s): L03.113 - CELLULITIS OF RIGHT UPPER LIMB (2) Swollen arm Code(s): M79.89 - OTHER SPECIFIED SOFT TISSUE DISORDERS (3) Anemia Code(s): D64.9 - ANEMIA, UNSPECIFIED (4) Dialysis catheter clot or failure Code(s): [id number] - (5) ESRD (end stage renal disease) Code(s): N18.6 - END STAGE RENAL DISEASE (6) Hypertension Code(s): I10 - ESSENTIAL (PRIMARY) HYPERTENSION Qualifiers: Hypertension type: essential hypertension Qualified Code(s): I10 - Essential (primary) hypertension Assessment/Plan Current Medications Generic Name Dose Route Start Last Admin Trade Name Freq PRN Reason Stop Dose Admin Amlodipine Besylate 10 mg 03/06/18 10:00 03/10/18 10:26 Norvasc - PO Not Given DAILY [facility] Bacitracin 1 applic 03/06/18 19:00 03/10/18 10:25 Bacitracin - TP Not Given DAILY [facility] Heparin Sodium (Porcine) 5,000 unit 03/06/18 06:00 03/10/18 05:27 Heparin - SQ 5,000 unit TID [facility] Administration Piperacillin Sod/Tazobactam 50 mls @ 100 mls/hr 03/06/18 18:00 03/10/18 10:27 Sod 2.25 gm/ Dextrose IVPB Not Given Q8H-IV [facility] Protocol Isosorbide Mononitrate 30 mg 03/06/18 10:00 03/10/18 10:26 Imdur - PO Not Given DAILY [facility] Lisinopril 20 mg 03/06/18 10:00 03/10/18 10:26 Prinivil PO Not Given DAILY [facility] Metoprolol Tartrate 25 mg 03/06/18 10:00 03/10/18 10:26 Lopressor - PO Not Given BID [facility] Impression 1. ESRD 2. HTN 3. HD access malfunction 4. anemia Plan - HD today - permacath to be changed tomorrow, vascular following - monitor bp - cont abx per ID - follow cultures Dr Ramos
--- NOTE | 2018-03-10 17:17 | PN ---
Teaching Attending Note Name of Resident: Rustam Licona ATTENDING PHYSICIAN STATEMENT I saw and evaluated the patient. I reviewed the resident's note and discussed the case with the resident. I agree with the resident's findings and plan as documented. SUBJECTIVE: No complaints. OBJECTIVE: Vital Signs Period Temp Pulse Resp BP Sys/Beyer Pulse Ox Last 24 Hr 97.6 F-98.2 F 59-82 16-68 125-160/76-105 98-98 HEART: S1S2, RRR LUNGS: Clear ABDOMEN: Soft, non-tender, non-distended, normal BS EXTREMITIES: Improving RUE edema, erythema, induration Laboratory Results - last 24 hr 03/10/18 03/10/18 03/10/18 10:35 10:35 15:00 WBC 4.4 RBC 3.82 L Hgb 10.9 L Hct 33.2 L MCV 87.0 MCH 28.6 MCHC 32.9 RDW 15.9 Plt Count 215 MPV 7.8 Sodium 138 Potassium 5.7 H D Chloride 99 Carbon Dioxide 27 Anion Gap 12 BUN 48 H D 13 D Creatinine 12.6 H* Random Glucose 97 D Calcium 7.8 L Current Medications Generic Name Dose Route Start Last Admin Trade Name Freq PRN Reason Stop Dose Admin Amlodipine Besylate 10 mg 03/06/18 10:00 03/10/18 10:26 Norvasc - PO Not Given [facility]ILY [facility] Bacitracin 1 applic 03/06/18 19:00 03/10/18 10:25 Bacitracin - TP Not Given DAILY [facility] Heparin Sodium (Porcine) 5,000 unit 03/06/18 06:00 03/10/18 15:01 Heparin - SQ Not Given TID [facility] Piperacillin Sod/Tazobactam 50 mls @ 100 mls/hr 03/06/18 18:00 03/10/18 10:27 Sod 2.25 gm/ Dextrose IVPB Not Given Q8H-IV [facility] Protocol Isosorbide Mononitrate 30 mg 03/06/18 10:00 03/10/18 10:26 Imdur - PO Not Given DAILY [facility] Lisinopril 20 mg 03/06/18 10:00 03/10/18 10:26 Prinivil PO Not Given DAILY [facility] Metoprolol Tartrate 25 mg 03/06/18 10:00 03/10/18 10:26 Lopressor - PO Not Given BID [facility] ASSESSMENT AND PLAN: This is a 57 year old man with a history of ESRD, HTN who presented to the ED with pain and swelling of his right arm. 1. Right arm cellulitis - Continue Zosyn (day 4) - Continue Bacitracin to RUE wound - US shows no evidence of DVT, AVF is patent - Blood cultures negative after 96 hrs - Wound culture growing Enterobacter 2. ESRD - Continue HD // - Plan for Permacath change tomorrow 3. Hypertension - Continue Norvasc, Lisinopril, Lopresor, Imdur
[2018-03-10 21:02] LABS: CREATININE 4.4 mg/dL (0.7-1.3)
--- NOTE | 2018-03-10 21:57 | PN ---
Physical Exam: SUBJECTIVE: Patient seen and examined at bedside. States arm better today. still with mild amount of pain. for HD today. OBJECTIVE: Vital Signs Period Temp Pulse Resp BP Sys/Beyer Pulse Ox Last 24 Hr 97.6 F-98.2 F 59-82 16-68 125-160/72-105 98 GENERAL: The patient is awake, alert, and fully oriented, in no acute distress. NECK: Trachea midline, full range of motion, supple. LUNGS: Breath sounds equal, clear to auscultation bilaterally, no wheezes, no crackles, no accessory muscle use. HEART: Regular rate and rhythm, S1, S2 without murmur, rub or gallop. ABDOMEN: Soft, nontender, nondistended, normoactive bowel sounds, no guarding, no rebound, no hepatosplenomegaly, no masses. EXTREMITIES: 2+ pulses, warm, well-perfused, warmth, erythema and induration of right arm continues to improve. NEUROLOGICAL: Cranial nerves II through X grossly intact. Normal speech, gait not observed. PSYCH: Normal mood, normal affect. SKIN: Warm, dry, normal turgor, no rashes or lesions noted Laboratory Results - last 24 hr 03/10/18 03/10/18 03/10/18 10:35 10:35 15:00 WBC 4.4 RBC 3.82 L Hgb 10.9 L Hct 33.2 L MCV 87.0 MCH 28.6 MCHC 32.9 RDW 15.9 Plt Count 215 MPV 7.8 Sodium 138 Potassium 5.7 H D Chloride 99 Carbon Dioxide 27 Anion Gap 12 BUN 48 H D 13 D Creatinine 12.6 H* 4.4 H D Random Glucose 97 D Calcium 7.8 L 03/10/18 15:00 WBC RBC Hgb Hct MCV MCH MCHC RDW Plt Count MPV Sodium Potassium Chloride Carbon Dioxide Anion Gap BUN Creatinine Cancelled Random Glucose Calcium Active Medications Generic Name Dose Route Start Last Admin Trade Name Freq PRN Reason Stop Dose Admin Amlodipine Besylate 10 mg 03/06/18 10:00 03/10/18 10:26 Norvasc - PO Not Given DAILY [facility] Bacitracin 1 applic 03/06/18 19:00 03/10/18 18:08 Bacitracin - TP 1 applic DAILY [facility] Administration Heparin Sodium (Porcine) 5,000 unit 03/06/18 06:00 03/10/18 21:47 Heparin - SQ 5,000 unit TID [facility] Administration Piperacillin Sod/Tazobactam 50 mls @ 100 mls/hr 03/06/18 18:00 03/10/18 18:03 Sod 2.25 gm/ Dextrose IVPB 100 mls/hr Q8H-IV [facility] Administration Protocol Isosorbide Mononitrate 30 mg 03/06/18 10:00 03/10/18 18:04 Imdur - PO 30 mg DAILY [facility] Administration Lisinopril 20 mg 03/06/18 10:00 03/10/18 10:26 Prinivil PO Not Given DAILY [facility] Metoprolol Tartrate 25 mg 03/06/18 10:00 03/10/18 10:26 Lopressor - PO Not Given BID [facility] ASSESSMENT/PLAN: This is a 57 year old man with a history of ESRD, HTN who is admitted for right arm cellulitis and permacath exchange. #Right arm cellulitis -C/w Zosyn (Day 3) -d/c Vanco -Bacitracin to RUE wound -Wound cx growing Enterobacter #Dislodged permacath -per Dr. Lincoln, schduled for exchange tomorrow -NPO past midnight #ESRD -HD //Sa -s/p HD today #Hypertension -c/w home Norvasc, Lisinopril, Lopresor, Imdur #FEN -no fluids indicated -monitor lytes -renal diet #prophy -hep SQ 5ku TID #dispo -admit to med surg Visit type - Emergency Visit Emergency Visit: Yes ED Registration Date: 03/05/18 Care time: The patient presented to the Emergency Department on the above date and was hospitalized for further evaluation of their emergent condition. - New Patient This patient is new to me today: No - Critical Care Critical Care patient: No
[2018-03-11] MEDS ORDERED: PIPERACILLIN/TAZOBACTAM 2.25 GM VIAL IVPB ONE ×3 (01:19→20:27)
[2018-03-11] MEDS ORDERED: DEXTROSE 5%-WATER - 50 ML IVPB ONE ×3 (01:20→20:27)
[2018-03-11] MEDS: PIPERACILLIN/TAZOB 2.25 GM 2.25 GM in DEXTROSE 5%-WATER - 50 ML IVPB SCH ×3 (01:46→20:43)
[2018-03-11] MEDS: HEPARIN NA (PORCINE) 5,000 UNITS/ML 1ML VIAL SQ SCH ×3 (05:39→21:24)
[2018-03-11 07:25] LABS: ANION GAP 8 (8-16); BLOOD UREA NITROGEN 26 mg/dL (7-18); CALCIUM 7.5 mg/dL (8.5-10.1); CHLORIDE 100 mmol/L (98-107); CO2 32 mmol/L (21-32); GLUCOSE,RANDOM 81 mg/dL (74-106); MAGNESIUM 1.9 mg/dL (1.8-2.4); PHOSPHOROUS 5.6 mg/dL (2.5-4.9); POTASSIUM 4.4 mmol/L (3.5-5.1); SODIUM 140 mmol/L (136-145)
[2018-03-11 07:26] LABS: INR 1.14 (0.82-1.09); PROTHROMBIN TIME (PATIENT) 12.9 SEC (9.98-11.88)
[2018-03-11 07:28] LABS: HEMATOCRIT 31.4 % (35.4-49); HEMOGLOBIN 10.5 GM/dL (11.7-16.9); MCH 29.1 pg (25.7-33.7); MCHC 33.3 g/dl (32.0-35.9); MEAN CELL VOLUME 87.4 fl (80-96); MEAN PLT VOLUME 7.9 fl (7.5-11.1); PLATELET COUNT 180 K/MM3 (134-434); RDW 15.4 % (11.9-15.9); WHITE BLOOD COUNT 5.1 K/mm3 (4.0-10.0)
[2018-03-11 07:29] LABS: ACTIVATED PTT 32.3 SECONDS (26.9-34.4)
[2018-03-11 08:21] LABS: CREATININE 8.4 mg/dL (0.7-1.3)
[2018-03-11] MEDS: BACITRACIN 15 GM TUBE TOPICAL OINTMENT TP SCH (10:35)
[2018-03-11] MEDS: amLODIPine BESYLATE 10 MG TABLET (FP) PO SCH (10:35)
[2018-03-11] MEDS: ISOSORBIDE MONONITRATE 30 MG TAB.SR.24H (FP) PO SCH (10:35)
[2018-03-11] MEDS: LISINOPRIL 20 MG TABLET (FP) PO SCH (10:35)
[2018-03-11] MEDS: METOPROLOL TARTRATE 25 MG TABLET (FP) PO SCH ×2 (10:35→21:24)
--- NOTE | 2018-03-11 13:20 | PN ---
Progress Note, Physician History of Present Illness: patient doing well wound stable on the hand no complaints no fever - Current Medication List Current Medications: Active Medications Amlodipine Besylate (Norvasc -) 10 mg PO DAILY [facility] Last Admin: 03/11/18 10:35 Dose: Not Given Bacitracin (Bacitracin -) 1 applic TP DAILY [facility] Last Admin: 03/11/18 10:35 Dose: 1 applic Heparin Sodium (Porcine) (Heparin -) 5,000 unit SQ TID [facility] Last Admin: 03/11/18 05:39 Dose: Not Given Piperacillin Sod/Tazobactam (Sod 2.25 gm/ Dextrose) 50 mls @ 100 mls/hr IVPB Q8H-IV [facility] PRN Reason: Protocol Last Admin: 03/11/18 10:35 Dose: 100 mls/hr Isosorbide Mononitrate (Imdur -) 30 mg PO DAILY [facility] Last Admin: 03/11/18 10:35 Dose: Not Given Lisinopril (Prinivil) 20 mg PO DAILY [facility] Last Admin: 03/11/18 10:35 Dose: Not Given Metoprolol Tartrate (Lopressor -) 25 mg PO BID [facility] Last Admin: 03/11/18 10:35 Dose: Not Given - Objective Vital Signs: Vital Signs Temperature 98.6 F 03/11/18 07:11 Pulse Rate 78 03/11/18 07:11 Respiratory Rate 20 03/11/18 07:11 Blood Pressure 104/64 03/11/18 07:11 O2 Sat by Pulse Oximetry (%) 98 03/10/18 21:00 Constitutional: Yes: No Distress, Calm Neck: Yes: Other (left permacath) Cardiovascular: Yes: Regular Rate and Rhythm Respiratory: Yes: Regular, CTA Bilaterally Gastrointestinal: Yes: Normal Bowel Sounds, Soft Musculoskeletal: Yes: WNL Extremities: Yes: Other Wound/Incision: Yes: Dressing Dry and Intact Neurological: Yes: Alert, Oriented Labs: CBC, BMP 03/11/18 05:35 03/11/18 05:35 INR, PTT INR 1.14 (0.82-1.09) 03/11/18 05:35 Assessment/Plan Problem List - Problems (1) Right arm cellulitis Code(s): L03.113 - CELLULITIS OF RIGHT UPPER LIMB (2) Swollen arm Code(s): M79.89 - OTHER SPECIFIED SOFT TISSUE DISORDERS (3) Anemia Code(s): D64.9 - ANEMIA, UNSPECIFIED (4) Dialysis catheter clot or failure Code(s): [id number] - (5) ESRD (end stage renal disease) Code(s): N18.6 - END STAGE RENAL DISEASE (6) Hypertension Code(s): I10 - ESSENTIAL (PRIMARY) HYPERTENSION Qualifiers: Hypertension type: essential hypertension Qualified Code(s): I10 - Essential (primary) hypertension plan awaiting for vascular plan once vascular plan in place then will change abx to oral rest as per primary
--- NOTE | 2018-03-11 13:40 | PN ---
<Rustam Licona - Last Filed: 03/11/18 13:33> Physical Exam: SUBJECTIVE: Patient seen and examined at bedside. No new complaints. States that his arm is improved today. For permacath exchange today. OBJECTIVE: Vital Signs Period Temp Pulse Resp BP Sys/Beyer Pulse Ox Last 24 Hr 98 F-98.6 F 61-80 16-20 104-160/64-101 98 GENERAL: The patient is awake, alert, and fully oriented, in no acute distress. HEAD: Normal with no signs of trauma. NECK: Trachea midline, full range of motion, supple. LUNGS: Breath sounds equal, clear to auscultation bilaterally, no wheezes, no crackles, no accessory muscle use. HEART: Regular rate and rhythm, S1, S2 without murmur, rub or gallop. ABDOMEN: Soft, nontender, nondistended, normoactive bowel sounds, no guarding, no rebound, no hepatosplenomegaly, no masses. EXTREMITIES: 2+ pulses, warm, well-perfused, no edema. NEUROLOGICAL: Cranial nerves II through X grossly intact. Normal speech, gait not observed. PSYCH: Normal mood, normal affect. SKIN: Warm, dry, normal turgor, no rashes or lesions noted Laboratory Results - last 24 hr 03/10/18 03/10/18 03/11/18 15:00 15:00 05:35 WBC 5.1 RBC 3.60 L Hgb 10.5 L Hct 31.4 L MCV 87.4 MCH 29.1 MCHC 33.3 RDW 15.4 Plt Count 180 MPV 7.9 PT with INR INR PTT (Actin FS) Sodium Potassium Chloride Carbon Dioxide Anion Gap BUN 13 D Creatinine 4.4 H D Cancelled Random Glucose Calcium Phosphorus Magnesium 03/11/18 03/11/18 05:35 05:35 WBC RBC Hgb Hct MCV MCH MCHC RDW Plt Count MPV PT with INR 12.90 H INR 1.14 PTT (Actin FS) 32.3 Sodium 140 Potassium 4.4 D Chloride 100 Carbon Dioxide 32 Anion Gap 8 BUN 26 H D Creatinine 8.4 H* D Random Glucose 81 Calcium 7.5 L Phosphorus 5.6 H Magnesium 1.9 Active Medications Generic Name Dose Route Start Last Admin Trade Name Freq PRN Reason Stop Dose Admin Amlodipine Besylate 10 mg 03/06/18 10:00 03/11/18 10:35 Norvasc - PO Not Given DAILY [facility] Bacitracin 1 applic 03/06/18 19:00 03/11/18 10:35 Bacitracin - TP 1 applic DAILY [facility] Administration Heparin Sodium (Porcine) 5,000 unit 03/06/18 06:00 03/11/18 05:39 Heparin - SQ Not Given TID [facility] Piperacillin Sod/Tazobactam 50 mls @ 100 mls/hr 03/06/18 18:00 03/11/18 10:35 Sod 2.25 gm/ Dextrose IVPB 100 mls/hr Q8H-IV [facility] Administration Protocol Isosorbide Mononitrate 30 mg 03/06/18 10:00 03/11/18 10:35 Imdur - PO Not Given DAILY [facility] Lisinopril 20 mg 03/06/18 10:00 03/11/18 10:35 Prinivil PO Not Given DAILY [facility] Metoprolol Tartrate 25 mg 03/06/18 10:00 03/11/18 10:35 Lopressor - PO Not Given BID [facility] ASSESSMENT/PLAN: This is a 57 year old man with a history of ESRD, HTN who is admitted for right arm cellulitis and permacath exchange. #Right arm cellulitis -C/w Zosyn (Day 4) -Plan to conver to to PO abx after surgery -Bacitracin to RUE wound -Wound cx growing Enterobacter #Dislodged permacath -per Dr. Lincoln, schduled for exchange today -NPO past midnight #ESRD -HD //Sa -s/p HD yesterday #Hypertension -c/w home Norvasc, Lisinopril, Lopresor, Imdur #FEN -no fluids indicated -monitor lytes -renal diet #prophy -hep SQ 5ku TID #dispo -admit to med surg Visit type - Emergency Visit Emergency Visit: Yes ED Registration Date: 03/05/18 Care time: The patient presented to the Emergency Department on the above date and was hospitalized for further evaluation of their emergent condition. - New Patient This patient is new to me today: No - Critical Care Critical Care patient: No <Ivana Ward - Last Filed: 03/11/18 19:26> Physical Exam: Patient is going to sx as per . Vital Signs Temperature 98.4 F 03/11/18 18:00 Pulse Rate 72 03/11/18 18:00 Respiratory Rate 13 03/11/18 18:00 Blood Pressure 147/87 03/11/18 18:00 O2 Sat by Pulse Oximetry (%) 98 03/11/18 18:00 CBCD WBC 5.1 K/mm3 (4.0-10.0) 03/11/18 05:35 RBC 3.60 M/mm3 (4.00-5.60) L 03/11/18 05:35 Hgb 10.5 GM/dL (11.7-16.9) L 03/11/18 05:35 Hct 31.4 % (35.4-49) L 03/11/18 05:35 MCV 87.4 fl (80-96) 03/11/18 05:35 MCHC 33.3 g/dl (32.0-35.9) 03/11/18 05:35 RDW 15.4 % (11.9-15.9) 03/11/18 05:35 Plt Count 180 K/MM3 (134-434) 03/11/18 05:35 MPV 7.9 fl (7.5-11.1) 03/11/18 05:35 CMP Sodium 140 mmol/L (136-145) 03/11/18 05:35 Potassium 4.4 mmol/L (3.5-5.1) D 03/11/18 05:35 Chloride 100 mmol/L (98-107) 03/11/18 05:35 Carbon Dioxide 32 mmol/L (21-32) 03/11/18 05:35 Anion Gap 8 (8-16) 03/11/18 05:35 BUN 26 mg/dL (7-18) H D 03/11/18 05:35 Creatinine 8.4 mg/dL (0.7-1.3) H* D 03/11/18 05:35 Creat Clearance w eGFR 6.31 (>60) 03/06/18 06:30 Random Glucose 81 mg/dL (74-106) 03/11/18 05:35 Calcium 7.5 mg/dL (8.5-10.1) L 03/11/18 05:35 Total Bilirubin 0.4 mg/dL (0.2-1.0) D 03/06/18 06:30 AST 9 U/L (15-37) L 03/06/18 06:30 ALT 9 U/L (12-78) L D 03/06/18 06:30 Alkaline Phosphatase 139 U/L (45-117) H 03/06/18 06:30 Total Protein 6.8 g/dl (6.4-8.2) 03/06/18 06:30 Albumin 3.2 g/dl (3.4-5.0) L 03/06/18 06:30 Current Medications Generic Name Dose Route Start Last Admin Trade Name Freq PRN Reason Stop Dose Admin Amlodipine Besylate 10 mg 03/06/18 10:00 03/11/18 10:35 Norvasc - PO Not Given DAILY [facility] Bacitracin 1 applic 03/06/18 19:00 03/11/18 10:35 Bacitracin - TP 1 applic DAILY [facility] Administration Epoetin Refugio 4,000 unit 03/12/18 17:08 Epogen - IVPUSH 03/12/18 17:09 ONCE ONE Fentanyl 25 mcg 03/11/18 17:06 Sublimaze Injection - IVPUSH [id number] PRN PAIN-PACU ORDER X 4 DOSES ONLY Heparin Sodium (Porcine) 5,000 unit 03/06/18 06:00 03/11/18 14:06 Heparin - SQ Not Given TID [facility] Piperacillin Sod/Tazobactam 50 mls @ 100 mls/hr 03/06/18 18:00 03/11/18 10:35 Sod 2.25 gm/ Dextrose IVPB 100 mls/hr Q8H-IV [facility] Administration Protocol Sodium Chloride 250 mls @ 3,000 mls/hr 03/11/18 17:08 Normal Saline - IV 03/12/18 17:08 PRN PRN Hypotension during Dialysis Isosorbide Mononitrate 30 mg 03/06/18 10:00 03/11/18 10:35 Imdur - PO Not Given DAILY [facility] Lisinopril 20 mg 03/06/18 10:00 03/11/18 10:35 Prinivil PO Not Given DAILY [facility] Metoprolol Tartrate 25 mg 03/06/18 10:00 03/11/18 10:35 Lopressor - PO Not Given BID [facility] Paricalcitol 2 mcg 03/12/18 17:08 Zemplar - IVPUSH 03/12/18 17:09 ONCE ONE Home Medications Medication Instructions Recorded Amlodipine Besylate [Norvasc -] 10 mg PO DAILY #30 tablet 03/27/17 Isosorbide Mononitrate [Imdur -] 30 mg PO DAILY #30 tab 06/01/17 Lisinopril 20 mg PO DAILY 02/09/18 Metoprolol Tartrate [Lopressor -] 25 mg PO BID 02/09/18
[2018-03-11] MEDS ORDERED: HEPARIN NA (PORCINE) 5,000 UNITS/ML 1ML VIAL ONE ×2 (15:59→16:03)
[2018-03-11] MEDS ORDERED: LIDOCAINE HCL 1%, 10 MG/ML (20ML VIAL) ONE (16:03)
[2018-03-11] MEDS ORDERED: ceFAZolin SODIUM 1 GM VIAL IVPB ONE (16:42)
--- NOTE | 2018-03-11 17:03 | OP ---
Operative Note - Note: Operative Date: 03/11/18 Pre-Operative Diagnosis: malfunctioning permacath Operation: permacath exchange Post-Operative Diagnosis: Same as Pre-op Surgeon: Jamal Lincoln Anesthesia: Fractional Estimated Blood Loss (mls): 10 Operative Report Dictated: Yes
--- NOTE | 2018-03-11 17:08 | PN ---
Progress Note, Physician History of Present Illness: Pt seen and examined at bedside. He is awake and alert. He denies shortness of breath. - Current Medication List Current Medications: Active Medications Amlodipine Besylate (Norvasc -) 10 mg PO DAILY [facility] Last Admin: 03/11/18 10:35 Dose: Not Given Bacitracin (Bacitracin -) 1 applic TP DAILY [facility] Last Admin: 03/11/18 10:35 Dose: 1 applic Fentanyl (Sublimaze Injection -) 25 mcg IVPUSH [id number] PRN PRN Reason: PAIN-PACU ORDER X 4 DOSES ONLY Heparin Sodium (Porcine) (Heparin -) 5,000 unit SQ TID [facility] Last Admin: 03/11/18 14:06 Dose: Not Given Piperacillin Sod/Tazobactam (Sod 2.25 gm/ Dextrose) 50 mls @ 100 mls/hr IVPB Q8H-IV [facility] PRN Reason: Protocol Last Admin: 03/11/18 10:35 Dose: 100 mls/hr Isosorbide Mononitrate (Imdur -) 30 mg PO DAILY [facility] Last Admin: 03/11/18 10:35 Dose: Not Given Lisinopril (Prinivil) 20 mg PO DAILY [facility] Last Admin: 03/11/18 10:35 Dose: Not Given Metoprolol Tartrate (Lopressor -) 25 mg PO BID [facility] Last Admin: 03/11/18 10:35 Dose: Not Given - Objective Vital Signs: Vital Signs Temperature 98.1 F 03/11/18 15:50 Pulse Rate 98 H 03/11/18 15:50 Respiratory Rate 18 03/11/18 15:50 Blood Pressure 120/74 03/11/18 15:50 O2 Sat by Pulse Oximetry (%) 98 03/10/18 21:00 Constitutional: Yes: Calm Eyes: Yes: Conjunctiva Clear HENT: Yes: Atraumatic Neck: Yes: Supple Cardiovascular: Yes: S1, S2 Respiratory: Yes: CTA Bilaterally Gastrointestinal: Yes: Soft Genitourinary: Yes: WNL Musculoskeletal: Yes: WNL Edema: Yes Edema: RUE: Trace Wound/Incision: Yes: Dressing Dry and Intact Neurological: Yes: Oriented Psychiatric: Yes: Oriented Labs: CBC, BMP 03/11/18 05:35 03/11/18 05:35 INR, PTT INR 1.14 (0.82-1.09) 03/11/18 05:35 Problem List - Problems (1) Right arm cellulitis Code(s): L03.113 - CELLULITIS OF RIGHT UPPER LIMB (2) Swollen arm Code(s): M79.89 - OTHER SPECIFIED SOFT TISSUE DISORDERS (3) Anemia Code(s): D64.9 - ANEMIA, UNSPECIFIED (4) Dialysis catheter clot or failure Code(s): FBT9206 - (5) ESRD (end stage renal disease) Code(s): N18.6 - END STAGE RENAL DISEASE (6) Hypertension Code(s): I10 - ESSENTIAL (PRIMARY) HYPERTENSION Qualifiers: Hypertension type: essential hypertension Qualified Code(s): I10 - Essential (primary) hypertension Assessment/Plan Current Medications Generic Name Dose Route Start Last Admin Trade Name Freq PRN Reason Stop Dose Admin Amlodipine Besylate 10 mg 03/06/18 10:00 03/11/18 10:35 Norvasc - PO Not Given DAILY [facility] Bacitracin 1 applic 03/06/18 19:00 03/11/18 10:35 Bacitracin - TP 1 applic DAILY [facility] Administration Fentanyl 25 mcg 03/11/18 17:06 Sublimaze Injection - IVPUSH [id number] PRN PAIN-PACU ORDER X 4 DOSES ONLY Heparin Sodium (Porcine) 5,000 unit 03/06/18 06:00 03/11/18 14:06 Heparin - SQ Not Given TID [facility] Piperacillin Sod/Tazobactam 50 mls @ 100 mls/hr 03/06/18 18:00 03/11/18 10:35 Sod 2.25 gm/ Dextrose IVPB 100 mls/hr Q8H-IV [facility] Administration Protocol Isosorbide Mononitrate 30 mg 03/06/18 10:00 03/11/18 10:35 Imdur - PO Not Given DAILY [facility] Lisinopril 20 mg 03/06/18 10:00 03/11/18 10:35 Prinivil PO Not Given DAILY [facility] Metoprolol Tartrate 25 mg 03/06/18 10:00 03/11/18 10:35 Lopressor - PO Not Given BID [facility] Impression 1. ESRD 2. HTN 3. HD access malfunction 4. anemia Plan - permacath change today - HD in am - abx per ID - follow cultures Dr Ramos
[2018-03-11] MEDS ORDERED: PT OWN MED DRAWER 7, Y5N ONE (18:34)
[2018-03-12] MEDS ORDERED: PIPERACILLIN/TAZOBACTAM 2.25 GM VIAL IVPB ONE ×3 (01:02→17:15)
[2018-03-12] MEDS ORDERED: DEXTROSE 5%-WATER - 50 ML IVPB ONE ×3 (01:02→17:15)
[2018-03-12] MEDS: PIPERACILLIN/TAZOB 2.25 GM 2.25 GM in DEXTROSE 5%-WATER - 50 ML IVPB SCH ×3 (01:51→17:27)
[2018-03-12] MEDS: HEPARIN NA (PORCINE) 5,000 UNITS/ML 1ML VIAL SQ SCH ×2 (06:19→15:01)
[2018-03-12 07:52] LABS: HEMATOCRIT 33.6 % (35.4-49); HEMOGLOBIN 11.1 GM/dL (11.7-16.9); MCH 28.7 pg (25.7-33.7); MEAN CELL VOLUME 86.9 fl (80-96); MEAN PLT VOLUME 8.2 fl (7.5-11.1); PLATELET COUNT 184 K/MM3 (134-434); RBC 3.86 M/mm3 (4.00-5.60); RDW 15.7 % (11.9-15.9); WHITE BLOOD COUNT 5.2 K/mm3 (4.0-10.0)
[2018-03-12 07:54] LABS: CHLORIDE 99 mmol/L (98-107); POTASSIUM 4.5 mmol/L (3.5-5.1); SODIUM 140 mmol/L (136-145)
[2018-03-12 08:15] LABS: ANION GAP 14 (8-16); BLOOD UREA NITROGEN 36 mg/dL (7-18); CALCIUM 7.5 mg/dL (8.5-10.1); CO2 27 mmol/L (21-32); GLUCOSE,RANDOM 68 mg/dL (74-106)
[2018-03-12 09:11] LABS: CREATININE 11.2 mg/dL (0.7-1.3)
[2018-03-12] MEDS ORDERED: PT OWN MED DRAWER 7, Y5N ONE (09:23)
[2018-03-12] MEDS: ISOSORBIDE MONONITRATE 30 MG TAB.SR.24H (FP) PO SCH (09:27)
[2018-03-12] MEDS: METOPROLOL TARTRATE 25 MG TABLET (FP) PO SCH (09:27)
[2018-03-12] MEDS: LISINOPRIL 20 MG TABLET (FP) PO SCH (09:28)
[2018-03-12] MEDS: amLODIPine BESYLATE 10 MG TABLET (FP) PO SCH (09:28)
[2018-03-12] MEDS: BACITRACIN 15 GM TUBE TOPICAL OINTMENT TP SCH (09:28)
--- NOTE | 2018-03-12 10:14 | PN ---
Progress Note (short form) - Note Progress Note: Anesthesia postop note 57y/o M s/p MAC for permacath insertion POD#1, aaox3, vss, no complaints. No anesthesia complications.
[2018-03-12] MEDS ORDERED: PARICALCITOL 5 MCG/ML VIAL IVPUSH ONE (11:00)
[2018-03-12] MEDS ORDERED: EPOETIN ALFA 2,000 UNIT/1 ML VIAL IVPUSH ONE (11:00)
[2018-03-12] MEDS ORDERED: SODIUM CHLORIDE 250 ML IV PRN (11:00)
--- NOTE | 2018-03-12 13:23 | PN ---
Progress Note, Physician History of Present Illness: stable no new issues permacath changed no issues - Current Medication List Current Medications: Active Medications Amlodipine Besylate (Norvasc -) 10 mg PO DAILY [facility] Last Admin: 03/12/18 09:28 Dose: 10 mg Bacitracin (Bacitracin -) 1 applic TP DAILY [facility] Last Admin: 03/12/18 09:28 Dose: 1 applic Fentanyl (Sublimaze Injection -) 25 mcg IVPUSH [id number] PRN PRN Reason: PAIN-PACU ORDER X 4 DOSES ONLY Heparin Sodium (Porcine) (Heparin -) 5,000 unit SQ TID [facility] Last Admin: 03/12/18 06:19 Dose: 5,000 unit Piperacillin Sod/Tazobactam (Sod 2.25 gm/ Dextrose) 50 mls @ 100 mls/hr IVPB Q8H-IV [facility] PRN Reason: Protocol Last Admin: 03/12/18 09:28 Dose: 100 mls/hr Isosorbide Mononitrate (Imdur -) 30 mg PO DAILY [facility] Last Admin: 03/12/18 09:27 Dose: 30 mg Lisinopril (Prinivil) 20 mg PO DAILY [facility] Last Admin: 03/12/18 09:28 Dose: 20 mg Metoprolol Tartrate (Lopressor -) 25 mg PO BID [facility] Last Admin: 03/12/18 09:27 Dose: 25 mg - Objective Vital Signs: Vital Signs Temperature 97.5 F L 03/12/18 10:25 Pulse Rate 61 03/12/18 12:30 Respiratory Rate 18 03/12/18 12:30 Blood Pressure 131/87 03/12/18 12:30 O2 Sat by Pulse Oximetry (%) 96 03/11/18 21:00 Constitutional: Yes: No Distress, Calm HENT: Yes: Other (permacath present) Cardiovascular: Yes: Regular Rate and Rhythm Respiratory: Yes: Regular, CTA Bilaterally Gastrointestinal: Yes: Normal Bowel Sounds, Soft Musculoskeletal: Yes: WNL Extremities: Yes: Other Wound/Incision: Yes: Dressing Dry and Intact Neurological: Yes: Alert, Oriented Psychiatric: Yes: Alert, Oriented Labs: CBC, BMP 03/12/18 06:00 03/12/18 06:00 INR, PTT INR 1.14 (0.82-1.09) 03/11/18 05:35 Assessment/Plan Problem List - Problems (1) Right arm cellulitis Code(s): L03.113 - CELLULITIS OF RIGHT UPPER LIMB (2) Swollen arm Code(s): M79.89 - OTHER SPECIFIED SOFT TISSUE DISORDERS (3) Anemia Code(s): D64.9 - ANEMIA, UNSPECIFIED (4) Dialysis catheter clot or failure Code(s): [id number] - (5) ESRD (end stage renal disease) Code(s): N18.6 - END STAGE RENAL DISEASE (6) Hypertension Code(s): I10 - ESSENTIAL (PRIMARY) HYPERTENSION Qualifiers: Hypertension type: essential hypertension Qualified Code(s): I10 - Essential (primary) hypertension plan stop all abx after afternoon dose continue to monitor the wound on the hand wound care rest as per primary team
[2018-03-12 15:03] VITALS: BP 118/78; PULSE 97; TEMP 98.5
--- NOTE | 2018-03-12 15:53 | PN ---
Progress Note, Physician History of Present Illness: Pt seen and examined at bedside. He tolerated HD. - Current Medication List Current Medications: Active Medications Amlodipine Besylate (Norvasc -) 10 mg PO DAILY [facility] Last Admin: 03/12/18 09:28 Dose: 10 mg Bacitracin (Bacitracin -) 1 applic TP DAILY [facility] Last Admin: 03/12/18 09:28 Dose: 1 applic Fentanyl (Sublimaze Injection -) 25 mcg IVPUSH [id number] PRN PRN Reason: PAIN-PACU ORDER X 4 DOSES ONLY Heparin Sodium (Porcine) (Heparin -) 5,000 unit SQ TID [facility] Last Admin: 03/12/18 15:01 Dose: 5,000 unit Piperacillin Sod/Tazobactam (Sod 2.25 gm/ Dextrose) 50 mls @ 100 mls/hr IVPB Q8H-IV [facility] PRN Reason: Protocol Last Admin: 03/12/18 09:28 Dose: 100 mls/hr Isosorbide Mononitrate (Imdur -) 30 mg PO DAILY [facility] Last Admin: 03/12/18 09:27 Dose: 30 mg Lisinopril (Prinivil) 20 mg PO DAILY [facility] Last Admin: 03/12/18 09:28 Dose: 20 mg Metoprolol Tartrate (Lopressor -) 25 mg PO BID [facility] Last Admin: 03/12/18 09:27 Dose: 25 mg - Objective Vital Signs: Vital Signs Temperature 98.5 F 03/12/18 15:01 Pulse Rate 97 H 03/12/18 15:01 Respiratory Rate 18 03/12/18 15:01 Blood Pressure 118/78 03/12/18 15:01 O2 Sat by Pulse Oximetry (%) 96 03/11/18 21:00 Constitutional: Yes: Calm Eyes: Yes: Conjunctiva Clear HENT: Yes: Atraumatic Cardiovascular: Yes: S1, S2 Respiratory: Yes: CTA Bilaterally Gastrointestinal: Yes: Soft Genitourinary: Yes: WNL Musculoskeletal: Yes: WNL Edema: Yes Edema: RUE: 1+ Wound/Incision: Yes: Dressing Dry and Intact Neurological: Yes: Oriented Labs: CBC, BMP 03/12/18 06:00 03/12/18 06:00 INR, PTT INR 1.14 (0.82-1.09) 03/11/18 05:35 Problem List - Problems (1) Right arm cellulitis Code(s): L03.113 - CELLULITIS OF RIGHT UPPER LIMB (2) Swollen arm Code(s): M79.89 - OTHER SPECIFIED SOFT TISSUE DISORDERS (3) Anemia Code(s): D64.9 - ANEMIA, UNSPECIFIED (4) Dialysis catheter clot or failure Code(s): [id number] - (5) ESRD (end stage renal disease) Code(s): N18.6 - END STAGE RENAL DISEASE (6) Hypertension Code(s): I10 - ESSENTIAL (PRIMARY) HYPERTENSION Qualifiers: Hypertension type: essential hypertension Qualified Code(s): I10 - Essential (primary) hypertension Assessment/Plan Current Medications Generic Name Dose Route Start Last Admin Trade Name Freq PRN Reason Stop Dose Admin Amlodipine Besylate 10 mg 03/06/18 10:00 03/12/18 09:28 Norvasc - PO 10 mg DAILY [facility] Administration Bacitracin 1 applic 03/06/18 19:00 03/12/18 09:28 Bacitracin - TP 1 applic DAILY [facility] Administration Fentanyl 25 mcg 03/11/18 17:06 Sublimaze Injection - IVPUSH [id number] PRN PAIN-PACU ORDER X 4 DOSES ONLY Heparin Sodium (Porcine) 5,000 unit 03/06/18 06:00 03/12/18 15:01 Heparin - SQ 5,000 unit TID [facility] Administration Piperacillin Sod/Tazobactam 50 mls @ 100 mls/hr 03/06/18 18:00 03/12/18 09:28 Sod 2.25 gm/ Dextrose IVPB 100 mls/hr Q8H-IV [facility] Administration Protocol Isosorbide Mononitrate 30 mg 03/06/18 10:00 03/12/18 09:27 Imdur - PO 30 mg DAILY [facility] Administration Lisinopril 20 mg 03/06/18 10:00 03/12/18 09:28 Prinivil PO 20 mg DAILY [facility] Administration Metoprolol Tartrate 25 mg 03/06/18 10:00 03/12/18 09:27 Lopressor - PO 25 mg BID [facility] Administration Impression 1. ESRD 2. HTN 3. HD access malfunction 4. anemia Plan - permacath changed - pt toelrated HD - abx per ID - vascular follow up for fistula Dr Ramos
--- NOTE | 2018-03-12 16:45 | DS ---
Physical Exam: Patient is comfortable with no new complains. per ID can be discharged home since completed IV Zosyn. <Ivana Ward - Last Filed: 03/12/18 19:31> Physical Exam: SUBJECTIVE: Patient seen and examined at bedside. no new complaints. per ID, the patient needs no further ABX as he has completed his course while admitted. OBJECTIVE: Vital Signs Period Temp Pulse Resp BP Sys/Beyer Pulse Ox Last 24 Hr 97.5 F-98.5 F 58-97 10-20 118-152/77-112 96-98 PHYSICAL EXAM GENERAL: The patient is awake, alert, and fully oriented, in no acute distress. HEAD: Normal with no signs of trauma. NECK: Trachea midline, full range of motion, supple. LUNGS: Breath sounds equal, clear to auscultation bilaterally, no wheezes, no crackles, no accessory muscle use. HEART: Regular rate and rhythm, S1, S2 without murmur, rub or gallop. Permacath in place over left chest. ABDOMEN: Soft, nontender, nondistended, normoactive bowel sounds, no guarding, no rebound, no hepatosplenomegaly, no masses. EXTREMITIES: 2+ pulses, warm, well-perfused. Cellulitis of right hand resolving. NEUROLOGICAL: Cranial nerves II through X grossly intact. Normal speech, gait not observed. PSYCH: Normal mood, normal affect. SKIN: Warm, dry, normal turgor, no rashes or lesions noted. LABS Laboratory Results - last 24 hr 03/12/18 03/12/18 03/12/18 06:00 06:00 06:17 WBC 5.2 RBC 3.86 L Hgb 11.1 L Hct 33.6 L MCV 86.9 MCH 28.7 MCHC 33.0 RDW 15.7 Plt Count 184 MPV 8.2 Sodium 140 Potassium 4.5 Chloride 99 Carbon Dioxide 27 Anion Gap 14 BUN 36 H D Creatinine 11.2 H* D POC Glucometer 83 Random Glucose 68 L Calcium 7.5 L HOSPITAL COURSE: Date of Admission:03/05/18 The patient is a 57 yo M with PMhx of ESRD on dialysis( , , ) and HTN present with two day history of arm swelling, pain and drainage from his AV fistula site. In the ED, a duplex of the arm was negative for DVT or occlusion and an xray showed no acute process. The patient's permacath was also noticed to be dislodged. He was admitted for IV abx and exchange of permacath. Vascular surgery was consulted. ID was consulted. Nephrology was consulted. The patient was treated with vancomycin, zosyn and epogen. His permacath was exchanged on with Dr. Lincoln. He completed a full 7 day course of zosyn. The swelling and pain in his arm greatly improved. He was dialyzed while admitted according to his schedule. The patient was discharged with instructions to follow up with a combatant diver officer, Dr. Lincoln and his PCP within 1 week of discharge. Date of Discharge: 03/12/18 Minutes to complete discharge: 43 <Rustam Licona - Last Filed: 03/12/18 21:24> Discharge Summary - Home Medications Comprehensive Discharge Medication List: Ambulatory Orders Amlodipine Besylate [Norvasc -] 10 mg PO DAILY #30 tablet 03/27/17 Isosorbide Mononitrate [Imdur -] 30 mg PO DAILY #30 tab 06/01/17 Lisinopril 20 mg PO DAILY 02/09/18 Metoprolol Tartrate [Lopressor -] 25 mg PO BID 02/09/18 <Ivana Ward - Last Filed: 03/12/18 19:31> Reason For Visit: CELLULITIS OF RT UPPER EXTRMITY Current Active Problems Right arm cellulitis (Acute) Swollen arm (Acute) ESRD (end stage renal disease) (Chronic) Hypertension (Chronic) - Home Medications Comprehensive Discharge Medication List: Ambulatory Orders Amlodipine Besylate [Norvasc -] 10 mg PO DAILY #30 tablet 03/27/17 Isosorbide Mononitrate [Imdur -] 30 mg PO DAILY #30 tab 06/01/17 Lisinopril 20 mg PO DAILY 02/09/18 Metoprolol Tartrate [Lopressor -] 25 mg PO BID 02/09/18 <Rustam Licona - Last Filed: 03/12/18 21:24> Condition: Improved - Instructions Diet, Activity, Other Instructions: You were treated for cellulitis, a skin infection in your arm with IV antibiotics. You do not require any further antibiotics. Follow-up with Dr. Ramos in one week for post-hospital follow-up. You should also follow up with Dr. Lincoln within one week of discharge home. Please resume taking the rest of your medications as prescribed. Please return to your dialysis center as scheduled. Continue with all your home medications. If you develop chest pain, increase arm swelling, discharge from the catheter, notice the catheter out of place, trouble breathing, fever or any new symptoms, please return to the hospital. Referrals: Jamal Lincoln MD [Staff Physician] - 1 Week Juni Ramos MD [Primary Care Provider] - 1 Week Disposition: HOME This patient is new to me today: No Emergency Visit: Yes ED Registration Date: 03/05/18 Care time: The patient presented to the Emergency Department on the above date and was hospitalized for further evaluation of their emergent condition. Critical Care patient: No - Discharge Referral Referred to [facility] Med [facility] No <Rustam Licona - Last Filed: 03/12/18 21:24>
--- NOTE | 2018-03-12 17:58 | OP ---
DATE OF OPERATION: 03/11/2018 PREOPERATIVE DIAGNOSIS: Malfunctioning Permacath. POSTOPERATIVE DIAGNOSIS: Malfunctioning Permacath. PROCEDURE: Permacath exchange. SURGEON: Jamal Ramos DO ANESTHESIA: Fractional. BLOOD LOSS: 2 mL The patient is a 57-year-old male who has a left IJ Permacath with the cuff exposed. It was found that it would need to be exchanged since the cuff is exposed. The patient was consented for the procedure, understanding all risks, benefits and alternatives, and was then brought to the recovery room. Once in the operating room, he was laid on operating table in supine manner. The left neck and chest were prepped and draped in a sterile surgical manner. We then inserted a 0.035 floppy guidewire into the Permacath under fluoroscopy. We then removed the Permacath. We then used a new 23 Permacath and placed it over the guidewire into the vein and it was placed in the distal SVC under fluoroscopy. At this point we then farhad back on each port of the catheter and there was good flow. Heparinized saline was injected and 2000 units of IV heparin was injected into each port. We then used 4-0 Biosyn and 2 simple stitches were placed at the exit site of the Permacath, 3-0 nylon used on the catheter sites of the skin; 4 x 4 Tegaderms were placed. The patient tolerated the procedure with no complications. The patient transferred to PACU in stable condition. Total blood loss 2 mL. Chest x-ray will be obtained in the PACU. JAMAL RAMOS DO ENDORSEMENT CLERK/[id number]
--- NOTE | 2018-03-13 11:04 | PATH ---
Surgical Pathology Report Patient Name: JAMSHID ABREU Med. Rec. #: [id number] /Age/Gender: 1960 (Age: 57) / M Account: [id number] Location: [facility] MED/SURG Taken: 03/11/2018 Received: 03/12/2018 Reported: 03/13/2018 Physicians: Jamal Lincoln Specimen(s) Received PERMA CATHETER Clinical History ESRD Final Diagnosis V BELT SKIVER, REMOVAL: PERMACATH (GROSS ONLY). Electronically Signed Maikel Escalante M.D. Gross Description Received fresh labeled "permacath" is a double lumen catheter consistent with permacath measuring 30 cm in length. (23 cm, [place] XK). No soft tissue identified. For gross examination only. MO/03/12/2018 shruti/03/12/2018
== END 2018-03-12 18:51 | disposition home or self-care (01) | DRG 173 ==
LOC: JER 18:10 → JERBED 21:34 → J4S 23:22 → J8W 03-07 06:43
PROVIDERS: ADMIT Internal Medicine; ATTEND Internal Medicine
PROC: 05HY33Z Insertion of Infusion Device into Upper Vein, Percutaneous Approach (ICD-10-PCS; 2018-03-11)
PROC: 05PY33Z Removal of Infusion Device from Upper Vein, Percutaneous Approach (ICD-10-PCS; principal; 2018-03-11 17:00)
PROC: 5A1D90Z Performance of Urinary Filtration, Continuous, Greater than 18 hours Per Day (ICD-10-PCS; 2018-03-12)
DX: T82.41XA Breakdown (mechanical) of vascular dialysis catheter, initial encounter (principal); I12.0 Hypertensive chronic kidney disease with stage 5 chronic kidney disease or end stage renal disease; N18.6 End stage renal disease; Z99.2 Dependence on renal dialysis; D64.9 Anemia, unspecified; K21.9 Gastro-esophageal reflux disease without esophagitis; L03.113 Cellulitis of right upper limb; M79.89 Other specified soft tissue disorders; Y83.9 Surgical procedure, unspecified as the cause of abnormal reaction of the patient, or of later complication, without mention of misadventure at the time of the procedure
CPT/HCPCS: 36415; 71045-TC-FY; 73060-TC-RT-FY; 73090-TC-RT-FY; 76000-TC-FY; 80048; 80053; 82565; 82962; 83605; 83735; 84100; 84520; 85025; 85027; 85610; 85651; 85730; 87040; 87070; 87186; 87205; 93971; 94760; 97161-GP; 99285-25; J0885; J1644

== ENCOUNTER 2018-04-27 15:28 | Observation (INO) | payer SELFPAY ==
[2018-04-27 17:22] LABS: BASO % 1.4 % (0-2.0); EOS % 4.8 % (0-4.5); HEMATOCRIT 45.7 % (35.4-49); HEMOGLOBIN 14.8 GM/dL (11.7-16.9); LYMPH % 18.8 % (8-40); MCH 27.7 pg (25.7-33.7); MCHC 32.2 g/dl (32.0-35.9); MEAN CELL VOLUME 85.9 fl (80-96); MEAN PLT VOLUME 8.2 fl (7.5-11.1); MONO % 6.4 % (3.8-10.2); NEUT % 68.6 % (42.8-82.8); RBC 5.33 M/mm3 (4.00-5.60); RDW 15.5 % (11.9-15.9)
--- NOTE | 2018-04-27 17:30 | PDOC ---
History of Present Illness - General Chief Complaint: Dialysis Shunt Problem Stated Complaint: DIALYSIS CATHERER PROBLEM Time Seen by Provider: 04/27/18 16:09 History Source: Patient Exam Limitations: No Limitations - History of Present Illness Initial Comments: 04/27/18 17:00 57-year-old male with history of end-stage renal disease presenting to ED for evaluation of left Shiley that was accidentally pulled out during his sleep last night. Patient states received dialysis yesterday which he completed without difficulty and states did not realize until the morning Dr. Segura came out. Patient denies any chest pain, bleeding from the site, or discomfort. Patient denies difficulty breathing, or lower extremity edema. Patient states is followed by Dr. Lincoln who placed patient's Shiley and his AV fistula 2 months ago. Timing/Duration: other Associated Symptoms: reports: denies symptoms Past History - Travel Traveled outside of the country in the last 30 days: No - Past Medical History Allergies/Adverse Reactions: Allergies Allergy/AdvReac Type Severity Reaction Status Date / Time No Known Allergies Allergy Verified 04/27/18 15:43 Home Medications: Ambulatory Orders Amlodipine Besylate [Norvasc -] 10 mg PO DAILY #30 tablet 03/27/17 Isosorbide Mononitrate [Imdur -] 30 mg PO DAILY #30 tab 06/01/17 Lisinopril 20 mg PO DAILY 02/09/18 Metoprolol Tartrate [Lopressor -] 25 mg PO BID 02/09/18 Anemia: No Asthma: Yes (childhood) Cancer: No Cardiac Disorders: No CVA: No COPD: No CHF: No DVT: No Dementia: No Diabetes: No Dialysis: Yes () GI Disorders: No Disorders: No HTN: Yes Hypercholesterolemia: No Liver Disease: No Seizures: No Thyroid Disease: No - Surgical History Abdominal Surgery: No Appendectomy: No Cardiac Surgery: No Cholecystectomy: No Lung Surgery: No Orthopedic Surgery: No - Immunization History Immunization Up to Date: Yes - Suicide/Smoking/Psychosocial Hx Smoking History: Never smoked Have you smoked in the past 12 months: No Information on smoking cessation initiated: No Hx Alcohol Use: No Drug/Substance Use Hx: No Substance Use Type: None Hx Substance Use Treatment: No Patient Lives Alone: No Review of Systems - Review of Systems Able to Perform ROS?: No Constitutional: No: Symptoms Reported HEENTM: No: Symptoms Reported Respiratory: No: Symptoms reported Cardiac (ROS): No: Symptoms Reported ABD/GI: No: Symptoms Reported : No: Symptoms Reported Musculoskeletal: No: Symptoms Reported Integumentary: No: Symptoms Reported Neurological: No: Symptoms reported Endocrine: No: Symptoms Reported Hematologic/Lymphatic: No: Symptoms Reported *Physical Exam - Vital Signs Last Vital Signs Temp Pulse Resp BP Pulse Ox 98.4 F 90 18 161/60 100 04/27/18 15:43 04/27/18 15:43 04/27/18 15:43 04/27/18 15:43 04/27/18 15:43 - Physical Exam General Appearance: Yes: Nourished, Appropriately Dressed. No: Apparent Distress HEENT: positive: EOMI, SHILA, TMs Normal, Pharynx Normal. negative: Pale Conjunctivae Neck: positive: Supple Respiratory/Chest: positive: Lungs Clear, Normal Breath Sounds. negative: Chest Tender (left upper chest Shiley insertion site clean and dry. No erythema) , Respiratory Distress, Accessory Muscle Use Cardiovascular: positive: Regular Rhythm, Regular Rate. negative: Murmur Gastrointestinal/Abdominal: positive: Soft. negative: Tenderness Extremity: positive: Normal Capillary Refill. negative: Pedal Edema Integumentary: positive: Normal Color, Warm, Moist Neurologic: positive: Motor Strength 5/5 (ambulatory) ED Treatment Course - LABORATORY CBC & Chemistry Diagram: 04/27/18 17:10 04/27/18 18:31 Medical Decision Making - Medical Decision Making 04/27/18 17:46 Pt here secondary to shiley falling out last night while in his sleep. Patient on exam had no acute findings including bleeding or signs of infection at shiley site. I will check a CBC comp and contact Dr. Lincoln 04/27/18 18:25 Comp hemolyzed. Arterial stick performed via left radial artery Case discussed with Dr. Lincoln and states patient will require Shiley and possibly may be able to access the ED fistula and is recommending patient be admitted to the he may obtain access tomorrow. 04/27/18 18:[address] apple and will admit to [facility] observe the patient may have access tomorrow and receives dialysis prior to discharge. *DC/Admit/Observation/Transfer Diagnosis at time of Disposition: ESRD (end stage renal disease), Encounter regarding vascular access for dialysis for end-stage renal disease - Discharge Dispostion Disposition: HOME Decision to Admit order: Yes - Referrals - Patient Instructions - Post Discharge Activity
[2018-04-27 18:20] LABS: PLATELET ESTIMATE ADEQUATE
[2018-04-27 19:12] LABS: ALBUMIN 3.8 g/dl (3.4-5.0); ANION GAP 15 (8-16); BILIRUBIN,TOTAL 0.4 mg/dL (0.2-1.0); BLOOD UREA NITROGEN 48 mg/dL (7-18); CALCIUM 7.7 mg/dL (8.5-10.1); CHLORIDE 97 mmol/L (98-107); CO2 26 mmol/L (21-32); GLUCOSE,RANDOM 77 mg/dL (74-106); POTASSIUM 5.7 mmol/L (3.5-5.1); SGOT/AST 11 U/L (15-37); SGPT/ALT 8 U/L (12-78); SODIUM 138 mmol/L (136-145); TOT PROT 8.5 g/dl (6.4-8.2)
[2018-04-27 19:13] LABS: ALK PHOS 164 U/L (45-117)
[2018-04-27 19:17] LABS: CREATININE 13.7 mg/dL (0.7-1.3)
--- NOTE | 2018-04-27 20:52 | HP ---
Admitting History and Physical - Primary Care Physician PCP: Campos Adame - Admission History of Present Illness: 57-year-old male with history of end-stage renal disease presenting to ED for evaluation of left Shiley cath that was accidentally pulled out during his sleep last night. Patient states received dialysis yesterday which she completed without difficulty and states did not realize until the morning Dr. Bautista came out. Patient denies any chest pain, bleeding from the site, or discomfort. Patient denies difficulty breathing, or lower extremity edema. Patient states is followed by Dr. Shaver who placed patient's Shiley and his AV fistula 2 months ago. - Past Medical History Cardiovascular: Yes: HTN Gastrointestinal: Yes: GERD Renal/: Yes: Renal Failure, Hemodialysis - Smoking History Smoking history: Never smoked Have you smoked in the past 12 months: No - Alcohol/Substance Use Hx Alcohol Use: No Home Medications - Allergies Allergies/Adverse Reactions: Allergies Allergy/AdvReac Type Severity Reaction Status Date / Time No Known Allergies Allergy Verified 04/27/18 15:43 - Home Medications Home Medications: Ambulatory Orders Amlodipine Besylate [Norvasc -] 10 mg PO DAILY #30 tablet 03/27/17 Isosorbide Mononitrate [Imdur -] 30 mg PO DAILY #30 tab 06/01/17 Lisinopril 20 mg PO DAILY 02/09/18 Metoprolol Tartrate [Lopressor -] 25 mg PO BID 02/09/18 Physical Examination Vital Signs: Vital Signs Temperature 98.4 F 04/27/18 15:43 Pulse Rate 87 04/27/18 18:34 Respiratory Rate 18 04/27/18 18:34 Blood Pressure 158/60 04/27/18 18:34 O2 Sat by Pulse Oximetry (%) 100 04/27/18 18:34 Constitutional: Yes: No Distress HENT: Yes: Atraumatic Neck: Yes: Supple Cardiovascular: Yes: Regular Rate and Rhythm Respiratory: Yes: CTA Bilaterally Gastrointestinal: Yes: Normal Bowel Sounds Extremities: Yes: WNL Edema: No Peripheral Pulses WNL: Yes Neurological: Yes: Alert, Oriented Labs: CBC, BMP 04/27/18 17:10 04/27/18 18:31 Imaging - Results X-ray: Image Reviewed Problem List - Problems (1) Encounter regarding vascular access for dialysis for end-stage renal disease Assessment/Plan: dr shaver will place shiley tomorrow Code(s): N18.6 - END STAGE RENAL DISEASE; Z99.2 - DEPENDENCE ON RENAL DIALYSIS (2) ESRD (end stage renal disease) Code(s): N18.6 - END STAGE RENAL DISEASE (3) Hypertension Code(s): I10 - ESSENTIAL (PRIMARY) HYPERTENSION Qualifiers: Assessment/Plan Laboratory Tests 04/27/18 04/27/18 04/27/18 17:10 17:10 18:31 WBC 8.0 D RBC 5.33 D Hgb 14.8 D Hct 45.7 D MCV 85.9 MCH 27.7 MCHC 32.2 RDW 15.5 Plt Count No Result Required. MPV 8.2 Neutrophils % 68.6 D Lymphocytes % 18.8 D Monocytes % 6.4 Eosinophils % 4.8 H Basophils % 1.4 Nucleated RBC % 0 Platelet Estimate Adequate Platelet Comment Sodium Cancelled 138 Potassium Cancelled 5.7 H D Chloride Cancelled 97 L Carbon Dioxide Cancelled 26 Anion Gap Cancelled 15 BUN Cancelled 48 H D Creatinine Cancelled 13.7 H* D Creat Clearance w eGFR Cancelled 3.78 Random Glucose Cancelled 77 Calcium Cancelled 7.7 L Total Bilirubin Cancelled 0.4 AST Cancelled 11 L D ALT Cancelled 8 L Alkaline Phosphatase Cancelled 164 H Total Protein Cancelled 8.5 H D Albumin Cancelled 3.8 Active Medications Generic Name Dose Route Start Last Admin Trade Name Freq PRN Reason Stop Dose Admin Amlodipine Besylate 10 mg 04/28/18 10:00 04/28/18 10:22 Norvasc - PO 10 mg DAILY WALTER Administration Sodium Chloride 250 mls @ 3,000 mls/hr 04/28/18 15:56 Normal Saline - IV 04/29/18 15:56 PRN PRN Hypotension during Dialysis Isosorbide Mononitrate 30 mg 04/28/18 10:00 04/28/18 11:17 Imdur - PO 30 mg DAILY WALTER Administration Lisinopril 20 mg 04/28/18 10:00 04/28/18 11:17 Prinivil PO 20 mg DAILY WALTER Administration Metoprolol Tartrate 25 mg 04/27/18 22:00 04/28/18 10:22 Lopressor - PO 25 mg BID WALTER Administration
[2018-04-27] MEDS: METOPROLOL TARTRATE 25 MG TABLET (FP) PO SCH (22:56)
[2018-04-28 02:23] VITALS: BMI 23.9
[2018-04-28] MEDS: amLODIPine BESYLATE 5 MG TABLET (FP) PO SCH (10:22)
[2018-04-28] MEDS: METOPROLOL TARTRATE 25 MG TABLET (FP) PO SCH ×2 (10:22→23:20)
[2018-04-28] MEDS: LISINOPRIL 20 MG TABLET (FP) PO SCH (11:17)
[2018-04-28] MEDS: ISOSORBIDE MONONITRATE 30 MG TAB.SR.24H (FP) PO SCH (11:17)
--- NOTE | 2018-04-28 11:38 | PN ---
Progress Note (short form) - Note Progress Note: Vascular Surgery Pt came in after his PC came out at home. Pt missed last US appt on april 15 for evaluation of aVf. If possible will place PC blanche and do venogram of right avf to mature avf. Renal to see if he pt needs HD today. We can then place shiley if needed. K is 5.7. So might need to medically treat , so that pt can go to OR blanche. Jamal Lincoln DO
--- NOTE | 2018-04-28 11:46 | PN ---
Progress Note (short form) - Note Progress Note: 57yo M h/o ESRD accidently pulled tunneled permacath out on 04/26. Pt states that his last dialysis session was 04/25. Pt denies any fever, chills, n/v. CBC, BMP 04/27/18 17:10 04/27/18 18:31 Last Vital Signs Temp Pulse Resp BP Pulse Ox 98.1 F 74 18 119/76 96 04/28/18 05:49 04/28/18 05:49 04/28/18 05:49 04/28/18 05:49 04/28/18 04:52 PE: Gen: A&O x 3, sitting comfortably in bed. Resp: breathing comfortably Lt chest: shows closed permacath site with no erythema or discharge. Problem List - Problems (1) ESRD (end stage renal disease) Code(s): N18.6 - END STAGE RENAL DISEASE
[2018-04-28] MEDS ORDERED: LIDOCAINE HCL 1%, 10 MG/ML (50 mL VIAL) SQ ONE (15:04)
[2018-04-28] MEDS ORDERED: LIDOCAINE HCL 1%, 10 MG/ML (20ML VIAL) ONE ×2 (15:06→20:08)
--- NOTE | 2018-04-28 15:38 | PROC ---
Central Line Insertion - Procedure Note TIME OUT performed prior to this procedure with verbal confirmation of correct patient identity, correct side, agreement of the procedure, correct patient position, availability of necessary equipment. The consent form is complete and accurate. Risk of possible infection and bleeding have been discussed with the patient. Safety precautions based on patient history or medication use has been addressed. Indication: Other (Permacath dislodged. Last HD session was Sat.) Central Line: Dialysis Cath, Dual Lumen Position: Supine Area prepped with Chlorhexidine solution then draped using sterile barrier protection. Anesthesia: Lidocaine 1% Technique used: Seldinger Ultrasound Guided Assistance: No Site: Right Femoral Dark venous non-pulsatile flow noted from hub of needle. The catheter was introduced. Guide wire removed intact. Each port aspirated then flushed with sterile normal saline and capped. Line secured to skin with silk suture. Biopatch placed around base of line. Sterile occlusive dressing applied. No complications. Patient tolerated the procedure well.
[2018-04-28] MEDS ORDERED: SODIUM CHLORIDE 250 ML IV PRN (15:56)
--- NOTE | 2018-04-28 15:57 | CONSULT ---
Consult Consult Specialty:: Nephrology Reason for Consultation:: ESRD - History of Present Illness Chief Complaint: dislodged permacath History of Present Illness: Pt is a 57 year old male with pmhx of esrd, htn and anemia who presents to the ER with a dislodged permacath. He has poor outpt follow up with vascular appointments. He denies shortness of breath or palpitations. He was last dialyzed on Friday. - History Source History Provided By: Patient - Past Medical History Cardio/Vascular: Yes: HTN Gastrointestinal: Yes: GERD Renal/: Yes: Renal Failure, Hemodialysis - Past Surgical History Past Surgical History: Yes: AV Fistula/Graft - Alcohol/Substance Use Hx Alcohol Use: No - Smoking History Smoking history: Never smoked Have you smoked in the past 12 months: No Home Medications - Allergies Allergies/Adverse Reactions: Allergies Allergy/AdvReac Type Severity Reaction Status Date / Time No Known Allergies Allergy Verified 04/27/18 15:43 - Home Medications Home Medications: Ambulatory Orders Amlodipine Besylate [Norvasc -] 10 mg PO DAILY #30 tablet 03/27/17 Isosorbide Mononitrate [Imdur -] 30 mg PO DAILY #30 tab 06/01/17 Lisinopril 20 mg PO DAILY 02/09/18 Metoprolol Tartrate [Lopressor -] 25 mg PO BID 02/09/18 Family Disease History - Family Disease History Family History: Denies Review of Systems - Review of Systems Constitutional: reports: No Symptoms Eyes: reports: No Symptoms HENT: reports: No Symptoms Neck: reports: No Symptoms Cardiovascular: reports: No Symptoms Respiratory: reports: No Symptoms Gastrointestinal: reports: No Symptoms Genitourinary: reports: No Symptoms Musculoskeletal: reports: No Symptoms Integumentary: reports: No Symptoms Neurological: reports: No Symptoms Endocrine: reports: No Symptoms Hematology/Lymphatic: reports: No Symptoms Psychiatric: reports: No Symptoms Physical Exam Vital Signs: Vital Signs Temperature 98.5 F 04/28/18 14:24 Pulse Rate 77 04/28/18 14:24 Respiratory Rate 18 04/28/18 14:24 Blood Pressure 116/48 04/28/18 14:24 O2 Sat by Pulse Oximetry (%) 96 04/28/18 10:00 Constitutional: Yes: Calm Eyes: Yes: Conjunctiva Clear HENT: Yes: Atraumatic Neck: Yes: Supple Cardiovascular: Yes: S1, S2 Respiratory: Yes: CTA Bilaterally Gastrointestinal: Yes: Normal Bowel Sounds, Soft Musculoskeletal: Yes: WNL Extremities: Yes: Other (filstula with thrill and bruit) Neurological: Yes: Oriented Psychiatric: Yes: Oriented Labs: CBC, BMP 04/27/18 17:10 04/27/18 18:31 Imaging - Results Chest X-ray: Report Reviewed Problem List - Problems (1) ESRD (end stage renal disease) Code(s): N18.6 - END STAGE RENAL DISEASE (2) Anemia Code(s): D64.9 - ANEMIA, UNSPECIFIED (3) Hypertension Code(s): I10 - ESSENTIAL (PRIMARY) HYPERTENSION Qualifiers: Assessment/Plan Current Medications Generic Name Dose Route Start Last Admin Trade Name Freq PRN Reason Stop Dose Admin Amlodipine Besylate 10 mg 04/28/18 10:00 04/28/18 10:22 Norvasc - PO 10 mg DAILY WALTER Administration Sodium Chloride 250 mls @ 3,000 mls/hr 04/28/18 15:56 Normal Saline - IV 04/29/18 15:56 PRN PRN Hypotension during Dialysis Isosorbide Mononitrate 30 mg 04/28/18 10:00 04/28/18 11:17 Imdur - PO 30 mg DAILY WALTER Administration Lisinopril 20 mg 04/28/18 10:00 04/28/18 11:17 Prinivil PO 20 mg DAILY WALTER Administration Metoprolol Tartrate 25 mg 04/27/18 22:00 04/28/18 10:22 Lopressor - PO 25 mg BID WALTER Administration Impression 1. ESRD 2. HTN 3. HD access malfunction 4. anemia 5. hyperkalemia Plan - pt will get shiley for HD today - repeat labs in am - OR tomorrow for permacath placement - discussed with vascular
--- NOTE | 2018-04-28 18:28 | PN ---
Progress Note, Physician - Current Medication List Current Medications: Active Medications Amlodipine Besylate (Norvasc -) 10 mg PO DAILY [facility] Last Admin: 04/28/18 10:22 Dose: 10 mg Sodium Chloride (Normal Saline -) 250 mls @ 3,000 mls/hr IV PRN PRN PRN Reason: Hypotension during Dialysis Stop: 04/29/18 15:56 Isosorbide Mononitrate (Imdur -) 30 mg PO DAILY [facility] Last Admin: 04/28/18 11:17 Dose: 30 mg Lisinopril (Prinivil) 20 mg PO DAILY [facility] Last Admin: 04/28/18 11:17 Dose: 20 mg Metoprolol Tartrate (Lopressor -) 25 mg PO BID [facility] Last Admin: 04/28/18 10:22 Dose: 25 mg - Objective Vital Signs: Vital Signs Temperature 98.3 F 04/28/18 17:50 Pulse Rate 70 04/28/18 17:50 Respiratory Rate 18 04/28/18 17:50 Blood Pressure 98/58 04/28/18 17:50 O2 Sat by Pulse Oximetry (%) 96 04/28/18 10:00 Constitutional: Yes: No Distress HENT: Yes: Atraumatic Neck: Yes: Supple Cardiovascular: Yes: Regular Rate and Rhythm Respiratory: Yes: CTA Bilaterally Gastrointestinal: Yes: Normal Bowel Sounds Extremities: Yes: WNL Edema: No Peripheral Pulses WNL: Yes Neurological: Yes: Alert, Oriented Labs: CBC, BMP 04/27/18 17:10 04/27/18 18:31 Problem List - Problems (1) Encounter regarding vascular access for dialysis for end-stage renal disease Assessment/Plan: dr shaver will place PC tomorrow Code(s): N18.6 - END STAGE RENAL DISEASE; Z99.2 - DEPENDENCE ON RENAL DIALYSIS (2) ESRD (end stage renal disease) Assessment/Plan: for hd today has jeanne in Code(s): N18.6 - END STAGE RENAL DISEASE (3) Hypertension Assessment/Plan: on meds stable Code(s): I10 - ESSENTIAL (PRIMARY) HYPERTENSION Qualifiers:
--- NOTE | 2018-04-28 20:27 | PN ---
Progress Note (short form) - Note Progress Note: Vascular Surgery Pt seen and examined. Right groin shiley removed. Left femoral vein shiley inserted. Guidewire removed. All ports flushed. Can use for HD Jamal Lincoln DO
[2018-04-29] MEDS: ISOSORBIDE MONONITRATE 30 MG TAB.SR.24H (FP) PO SCH (11:06)
[2018-04-29] MEDS: LISINOPRIL 20 MG TABLET (FP) PO SCH (11:07)
[2018-04-29] MEDS: amLODIPine BESYLATE 5 MG TABLET (FP) PO SCH (11:07)
[2018-04-29] MEDS: METOPROLOL TARTRATE 25 MG TABLET (FP) PO SCH (11:07)
[2018-04-29] MEDS ORDERED: HEPARIN NA (PORCINE) 5,000 UNITS/ML 1ML VIAL ONE ×2 (11:51→12:57)
[2018-04-29] MEDS ORDERED: LIDOCAINE HCL 1%, 10 MG/ML (20ML VIAL) ONE (11:51)
[2018-04-29] MEDS ORDERED: MIDAZOLAM HCL 2 MG/2 ML SINGLE DOSE VIAL ONE (12:13)
[2018-04-29] MEDS ORDERED: ceFAZolin SODIUM 1 GM VIAL ONE (12:29)
[2018-04-29] MEDS ORDERED: ceFAZolin SODIUM 1 GM VIAL IVPB ONE (12:30)
[2018-04-29] MEDS ORDERED: LIDOCAINE HCL 1%, 10 MG/ML (20ML VIAL) INF ONE (12:31)
--- NOTE | 2018-04-29 12:33 | PN ---
Progress Note, Physician History of Present Illness: Pt seen and examined at bedside. He was dialyzed last night for hyperkalemia. Pt going to OR for permacath. - Current Medication List Current Medications: Active Medications Amlodipine Besylate (Norvasc -) 10 mg PO DAILY [facility] Last Admin: 04/29/18 11:07 Dose: Not Given Sodium Chloride (Normal Saline -) 250 mls @ 3,000 mls/hr IV PRN PRN PRN Reason: Hypotension during Dialysis Stop: 04/29/18 15:56 Isosorbide Mononitrate (Imdur -) 30 mg PO DAILY [facility] Last Admin: 04/29/18 11:06 Dose: Not Given Lisinopril (Prinivil) 20 mg PO DAILY [facility] Last Admin: 04/29/18 11:07 Dose: Not Given Metoprolol Tartrate (Lopressor -) 25 mg PO BID [facility] Last Admin: 04/29/18 11:07 Dose: Not Given - Objective Vital Signs: Vital Signs Temperature 99.1 F 04/29/18 08:44 Pulse Rate 72 04/29/18 09:15 Respiratory Rate 18 04/29/18 09:15 Blood Pressure 116/65 04/29/18 09:15 O2 Sat by Pulse Oximetry (%) 96 04/29/18 04:00 Constitutional: Yes: Calm Eyes: Yes: Conjunctiva Clear HENT: Yes: Atraumatic Neck: Yes: Supple Cardiovascular: Yes: S1, S2 Respiratory: Yes: CTA Bilaterally Gastrointestinal: Yes: WNL Genitourinary: Yes: WNL Musculoskeletal: Yes: WNL Extremities: Yes: Other (fistula with thrill and bruit) Edema: RUE: Trace Integumentary: Yes: WNL Neurological: Yes: Oriented Psychiatric: Yes: Oriented Labs: CBC, BMP 04/27/18 17:10 04/27/18 18:31 Problem List - Problems (1) ESRD (end stage renal disease) Code(s): N18.6 - END STAGE RENAL DISEASE (2) Anemia Code(s): D64.9 - ANEMIA, UNSPECIFIED (3) Hypertension Code(s): I10 - ESSENTIAL (PRIMARY) HYPERTENSION Qualifiers: Assessment/Plan Current Medications Generic Name Dose Route Start Last Admin Trade Name Freq PRN Reason Stop Dose Admin Amlodipine Besylate 10 mg 04/28/18 10:00 04/29/18 11:07 Norvasc - PO Not Given DAILY [facility] Sodium Chloride 250 mls @ 3,000 mls/hr 04/28/18 15:56 Normal Saline - IV 04/29/18 15:56 PRN PRN Hypotension during Dialysis Isosorbide Mononitrate 30 mg 04/28/18 10:00 04/29/18 11:06 Imdur - PO Not Given DAILY [facility] Lisinopril 20 mg 04/28/18 10:00 04/29/18 11:07 Prinivil PO Not Given DAILY [facility] Metoprolol Tartrate 25 mg 04/27/18 22:00 04/29/18 11:07 Lopressor - PO Not Given BID [facility] Impression 1. ESRD 2. HTN 3. HD access malfunction 4. anemia 5. hyperkalemia Plan - pt dialyzed last night - pt for permacath today - check potassium - has hd scheduled as outpt tomorrow - vascular to ronald/lizz angel before discarge
[2018-04-29] MEDS ORDERED: ACETAMINOPHEN 1000 MG/100 ML VIAL (NON FORMULARY) IVPB ONE (13:37)
[2018-04-29] MEDS ORDERED: ONDANSETRON 4 MG/2 ML VIAL IVPUSH PRN (13:37)
--- NOTE | 2018-04-29 13:37 | OP ---
Operative Note - Note: Operative Date: 04/29/18 Pre-Operative Diagnosis: ESRD Operation: Insertion of permacath, venogram, venoplasty right avf. Findings: central vein stenosis right cephalic vein Post-Operative Diagnosis: Same as Pre-op Surgeon: Jamal Lincoln Anesthesia: Fractional Estimated Blood Loss (mls): 50 Operative Report Dictated: Yes
[2018-04-29] MEDS ORDERED: SODIUM CHLORIDE 250 ML IV PRN (13:53)
--- NOTE | 2018-04-29 15:36 | DS ---
Physical Examination Vital Signs: Vital Signs Temperature 98.9 F 04/29/18 15:07 Pulse Rate 79 04/29/18 15:07 Respiratory Rate 18 04/29/18 15:07 Blood Pressure 146/87 04/29/18 15:07 O2 Sat by Pulse Oximetry (%) 99 04/29/18 14:30 Labs: CBC, BMP 04/27/18 17:10 04/27/18 18:31 Discharge Summary Reason For Visit: ENCOUNTER RE VASCULAR ACCESS FOR DIALYSIS FOR END Current Active Problems Encounter regarding vascular access for dialysis for end-stage renal disease ( Acute) ESRD (end stage renal disease) (Chronic) - Instructions - Home Medications Comprehensive Discharge Medication List: Ambulatory Orders Amlodipine Besylate [Norvasc -] 10 mg PO DAILY #30 tablet 03/27/17 Isosorbide Mononitrate [Imdur -] 30 mg PO DAILY #30 tab 06/01/17 Lisinopril 20 mg PO DAILY 02/09/18 Metoprolol Tartrate [Lopressor -] 25 mg PO BID 02/09/18
[2018-04-29] MEDS ORDERED: METOPROLOL TARTRATE 25 MG TABLET (FP) PO ONE (16:00)
[2018-04-29] MEDS ORDERED: ISOSORBIDE MONONITRATE 30 MG TAB.SR.24H (FP) PO ONE (16:15)
[2018-04-29] MEDS ORDERED: LISINOPRIL 20 MG TABLET (FP) PO ONE (16:15)
[2018-04-29] MEDS ORDERED: amLODIPine BESYLATE 10 MG TABLET (FP) PO ONE (16:15)
[2018-04-29 17:47] VITALS: BP 121/67; PULSE 74; TEMP 98
[2018-04-29] MEDS ORDERED: METOPROLOL TARTRATE 25 MG TABLET (FP) PO SCH (22:00)
[2018-04-30] MEDS ORDERED: LISINOPRIL 20 MG TABLET (FP) PO SCH (10:00)
[2018-04-30] MEDS ORDERED: amLODIPine BESYLATE 10 MG TABLET (FP) PO SCH (10:00)
[2018-04-30] MEDS ORDERED: ISOSORBIDE MONONITRATE 30 MG TAB.SR.24H (FP) PO SCH (10:00)
[2018-05-01 00:07] LABS: HBSAG SCREEN Negative (Negative); HEP A AB, IGM Negative (Negative); HEP B CORE AB, TOT Negative (Negative)
--- NOTE | 2018-05-01 09:13 | PATH ---
Surgical Pathology Report Patient Name: JAMSHID ABREU Med. Rec. #: [id number] /Age/Gender: 1960 (Age: 57) / M Account: [id number] Location: [facility] MED/SURG Taken: 04/29/2018 Received: 04/30/2018 Reported: 05/01/2018 Physicians: Jamal Adame M.D. Specimen(s) Received SHILEY REMOVAL Clinical History ESRD Final Diagnosis CATHETER, SHILEY, REMOVAL: CATHETER. MACROSCOPIC DIAGNOSIS. Electronically Signed Ines Eason M.D. Gross Description Received fresh labeled "Tarynley," is a 34 cm. in length double lumen catheter with attached gauze. No soft tissue is present. No sections are submitted, gross only. /04/30/2018 saudi04/30/2018
== END 2018-04-29 18:22 | disposition home or self-care (01) ==
LOC: JER 15:28 → JERBED 18:36 → J7W 21:48
PROVIDERS: ADMIT Internal Medicine; ATTEND Internal Medicine
PROC: 0JHF3XZ Insertion of Tunneled Vascular Access Device into Left Upper Arm Subcutaneous Tissue and Fascia, Percutaneous Approach (ICD-10-PCS; principal; 2018-04-27)
PROC: 05HN33Z Insertion of Infusion Device into Left Internal Jugular Vein, Percutaneous Approach (ICD-10-PCS; 2018-04-27)
PROC: B514ZZA Fluoroscopy of Left Jugular Veins, Guidance (ICD-10-PCS; 2018-04-27)
DX: T82.49XA Other complication of vascular dialysis catheter, initial encounter (principal); I12.0 Hypertensive chronic kidney disease with stage 5 chronic kidney disease or end stage renal disease; N18.6 End stage renal disease; D64.9 Anemia, unspecified; E87.5 Hyperkalemia; Z99.2 Dependence on renal dialysis; Y83.8 Other surgical procedures as the cause of abnormal reaction of the patient, or of later complication, without mention of misadventure at the time of the procedure
CPT/HCPCS: 36415; 71045-TC-FY; 76000-TC-FY; 80053; 85025; 86704; 86706; 86708; 87340; 88300-TC; 94760; 99282-25; G0378; J0131; J1644

== ENCOUNTER 2018-05-26 19:38 | Observation (INO) | payer SELFPAY ==
--- NOTE | 2018-05-26 19:51 | PDOC ---
Rapid Medical Evaluation Time Seen by Provider: 05/26/18 19:46 Medical Evaluation: Allergies Allergy/AdvReac Type Severity Reaction Status Date / Time No Known Allergies Allergy Verified 04/27/18 15:43 05/26/18 19:46 Pt presents for a clogged dialysis catheter. States he was able to get dialyzed today. No other complaints at this time. Pt with swollen R arm however this is not new per patient. Patient still makes urine Exam: (+) JVD, AAOx3, breathing easily, NAD, Orders: Labs, Urine Pt to proceed to ED for further evaluation Discharge Disposition - Diagnosis Dialysis catheter clot or failure - Referrals - Patient Instructions - Post Discharge Activity
[2018-05-26 19:52] VITALS: BMI 24.7
[2018-05-26 21:42] LABS: BASO % 0.2 % (0-2.0); EOS % 8.2 % (0-4.5); HEMATOCRIT 38.1 % (35.4-49); HEMOGLOBIN 12.4 GM/dL (11.7-16.9); LYMPH % 23.5 % (8-40); MCH 27.8 pg (25.7-33.7); MCHC 32.5 g/dl (32.0-35.9); MEAN CELL VOLUME 85.8 fl (80-96); MEAN PLT VOLUME 7.4 fl (7.5-11.1); MONO % 8.6 % (3.8-10.2); NEUT % 59.5 % (42.8-82.8); PLATELET COUNT 243 K/MM3 (134-434); RBC 4.45 M/mm3 (4.00-5.60); WHITE BLOOD COUNT 5.7 K/mm3 (4.0-10.0)
[2018-05-26 22:08] LABS: ALK PHOS 180 U/L (45-117); ANION GAP 8 (8-16); BILIRUBIN,TOTAL 0.4 mg/dL (0.2-1.0); BLOOD UREA NITROGEN 29 mg/dL (7-18); CALCIUM 7.8 mg/dL (8.5-10.1); CHLORIDE 99 mmol/L (98-107); CO2 32 mmol/L (21-32); GLUCOSE,RANDOM 119 mg/dL (74-106); POTASSIUM 4.2 mmol/L (3.5-5.1); SGOT/AST 12 U/L (15-37); SGPT/ALT 10 U/L (12-78); SODIUM 139 mmol/L (136-145); TOT PROT 8.5 g/dl (6.4-8.2)
[2018-05-26 22:11] LABS: INR 1.12 (0.82-1.09); PROTHROMBIN TIME (PATIENT) 12.6 SEC (9.7-13.0)
[2018-05-26 22:12] LABS: CREATININE 8.8 mg/dL (0.7-1.3)
--- NOTE | 2018-05-26 22:17 | PDOC ---
History of Present Illness - General History Source: Patient Exam Limitations: No Limitations - History of Present Illness Initial Comments: 05/26/18 23:10 The patient is a 58 year old male with a significant PMH of end stage renal disease (on dialysis ), asthma, and hypertension who presents to the emergency department with an issue with his dialysis catheter. The patient reports that his catheter had gotten clogged and he wanted it to be fixed. The patient reports that he was able to complete his dialysis treatment today. He denies any symptoms at time of exam. He denies any fever, chills, nausea, vomit , diarrhea,constipation or urinary symptoms. He denies any chest pain, shortness of breath, headache and dizziness. The patient denies any other complaints. Nephrology: Dr. Ramos Vascular: Dr. Lincoln <Varun Foss - Last Filed: 05/26/18 23:39> - General History Source: Patient <Valente Lux - Last Filed: 05/28/18 19:51> - General Chief Complaint: Dialysis Shunt Problem Stated Complaint: REVIST Time Seen by Provider: 05/26/18 19:46 Past History <Varun Foss - Last Filed: 05/26/18 23:39> - Past Medical History Anemia: No Asthma: Yes (childhood) Cancer: No Cardiac Disorders: No CVA: No COPD: No CHF: No DVT: No Dementia: No Diabetes: No Dialysis: Yes () GI Disorders: No Disorders: No HTN: Yes Hypercholesterolemia: No Liver Disease: No Seizures: No Thyroid Disease: No - Surgical History Abdominal Surgery: No Appendectomy: No Cardiac Surgery: No Cholecystectomy: No Lung Surgery: No Orthopedic Surgery: No - Immunization History Immunization Up to Date: Yes - Suicide/Smoking/Psychosocial Hx Smoking History: Never smoked Have you smoked in the past 12 months: No Information on smoking cessation initiated: No Hx Alcohol Use: No Drug/Substance Use Hx: No Substance Use Type: None Hx Substance Use Treatment: No <Valente Lux - Last Filed: 05/28/18 19:51> - Past Medical History Allergies/Adverse Reactions: Allergies Allergy/AdvReac Type Severity Reaction Status Date / Time No Known Allergies Allergy Verified 05/26/18 19:48 Home Medications: Ambulatory Orders Amlodipine Besylate [Norvasc -] 10 mg PO DAILY #30 tablet 03/27/17 Isosorbide Mononitrate [Imdur -] 30 mg PO DAILY #30 tab 06/01/17 Lisinopril 20 mg PO DAILY 02/09/18 Metoprolol Tartrate [Lopressor -] 25 mg PO BID 02/09/18 Review of Systems - Review of Systems Able to Perform ROS?: Yes Comments:: 05/26/18 23:23 CONSTITUTIONAL: Absent: fever, chills, diaphoresis, generalized weakness, malaise, loss of appetite HEENT: Absent: rhinorrhea, nasal congestion, throat pain, throat swelling, difficulty swallowing, mouth swelling, ear pain, eye pain, visual Changes CARDIOVASCULAR: (+)clogged chest cath Absent: chest pain, syncope, palpitations, irregular heart rate, lightheadedness , peripheral edema RESPIRATORY: Absent: cough, shortness of breath, dyspnea with exertion, orthopnea, wheezing, stridor, hemoptysis GASTROINTESTINAL: Absent: abdominal pain, abdominal distension, nausea, vomiting, diarrhea, constipation, melena, hematochezia GENITOURINARY: Absent: dysuria, frequency, urgency, hesitancy, hematuria, flank pain, genital pain MUSCULOSKELETAL: Absent: myalgia, arthralgia, joint swelling SKIN: Absent: rash, itching, pallor HEMATOLOGIC/IMMUNOLOGIC: Absent: easy bleeding, easy bruising, lymphadenopathy, frequent infections ENDOCRINE: Absent: unexplained weight gain, unexplained weight loss, heat intolerance, cold intolerance NEUROLOGIC: Absent: headache, focal weakness or paresthesias, dizziness, unsteady gait, seizure, mental status changes, bladder or bowel incontinence PSYCHIATRIC: Absent: anxiety, depression, suicidal or homicidal ideation, hallucinations. <Varun Foss - Last Filed: 05/26/18 23:39> *Physical Exam - Vital Signs Last Vital Signs Temp Pulse Resp BP Pulse Ox 97.9 F 103 H 20 151/107 99 05/26/18 19:49 05/26/18 19:49 05/26/18 19:49 05/26/18 19:49 05/26/18 19:49 - Physical Exam Comments: 05/26/18 23:24 GENERAL: Well developed, well nourished. Awake and alert. No acute distress. HEENT: Normocephalic, atraumatic. PERRLA, EOMI. No conjunctival pallor. Sclera are non- icteric. Moist mucous membranes. Oropharynx is clear. NECK: Supple. Full ROM. No JVD. Carotid pulses 2+ and symmetric, without bruits. No thyromegaly. No lymphadenopathy. CARDIOVASCULAR:(+) left chest cath. Regular rate and rhythm. No murmurs, rubs, or gallops. Distal pulses are 2+ and symmetric. PULMONARY: No evidence of respiratory distress. Lungs clear to auscultation bilaterally. No wheezing, rales or rhonchi. ABDOMINAL: Soft. Non-tender. Non-distended. No rebound or guarding. No organomegaly. Normoactive bowel sounds. MUSCULOSKELETAL Normal range of motion at all joints. No bony deformities or tenderness. No CVA tenderness. EXTREMITIES: (+) 2+ non pitting edema in right forearm from the elbow down No cyanosis. No clubbing.No calf tenderness. SKIN: Warm and dry. Normal capillary refill. No rashes. No jaundice. NEUROLOGICAL: Alert, awake, appropriate. Cranial nerves 2-12 intact. No deficits to light touch and temperature in face, upper extremities and lower extremities. No motor deficits in the in face, upper extremities and lower extremities. Normoreflexic in the upper and lower extremities. Normal speech. Toes are down- going bilaterally. Gait is normal without ataxia. PSYCHIATRIC: Cooperative. Good eye contact. Appropriate mood and affect. <Varun Foss - Last Filed: 05/26/18 23:39> - Vital Signs Last Vital Signs Temp Pulse Resp BP Pulse Ox 97.9 F 103 H 20 151/107 99 05/26/18 19:49 05/26/18 19:49 05/26/18 19:49 05/26/18 19:49 05/26/18 19:49 <Valente Lux - Last Filed: 05/28/18 19:51> Heart Score/ECG Review - ECG Intrepretation Comment:: 05/26/18 23:07 Abnormal ECG Vent Rate 75 bpm IL interval 152 ms QRS duration 76 ms QT/QTc 374/417 ms <Varun Foss - Last Filed: 05/26/18 23:39> ED Treatment Course - LABORATORY CBC & Chemistry Diagram: 05/26/18 21:28 05/26/18 21:28 - ADDITIONAL ORDERS Additional order review: Laboratory Results 05/26/18 05/26/18 05/26/18 21:28 21:28 21:28 PT with INR 12.60 INR 1.12 Sodium 139 Potassium 4.2 D Chloride 99 Carbon Dioxide 32 D Anion Gap 8 BUN 29 H Creatinine 8.8 H* Creat Clearance w eGFR 6.28 Random Glucose 119 H D Calcium 7.8 L Total Bilirubin 0.4 AST 12 L ALT 10 L D Alkaline Phosphatase 180 H D Total Protein 8.5 H Albumin 4.0 Blood Type B POSITIVE Antibody Screen Negative 05/26/18 21:28 RBC 4.45 MCV 85.8 MCHC 32.5 RDW 17.0 H MPV 7.4 L Neutrophils % 59.5 Lymphocytes % 23.5 D Monocytes % 8.6 Eosinophils % 8.2 H Basophils % 0.2 <Varun Foss - Last Filed: 05/26/18 23:39> - LABORATORY CBC & Chemistry Diagram: 05/28/18 06:00 05/28/18 06:00 - ADDITIONAL ORDERS Additional order review: Laboratory Results 05/26/18 21:28 Sodium 139 Potassium 4.2 D Chloride 99 Carbon Dioxide 32 D Anion Gap 8 BUN 29 H Creatinine 8.8 H* Creat Clearance w eGFR 6.28 Random Glucose 119 H D Calcium 7.8 L Total Bilirubin 0.4 AST 12 L ALT 10 L D Alkaline Phosphatase 180 H D Total Protein 8.5 H Albumin 4.0 05/26/18 21:28 RBC 4.45 MCV 85.8 MCHC 32.5 RDW 17.0 H MPV 7.4 L Neutrophils % 59.5 Lymphocytes % 23.5 D Monocytes % 8.6 Eosinophils % 8.2 H Basophils % 0.2 <Valente Lux - Last Filed: 05/28/18 19:51> Medical Decision Making - Medical Decision Making 05/28/18 19:50 Dr. Lux: The scribe's documentation has been prepared under my direction and personally reviewed by me in its entirery. I confirm that the note above accurately reflects all work, treatment, procedures, and medical decision making performed by me. <Valente Lux - Last Filed: 05/28/18 19:51> *DC/Admit/Observation/Transfer - Attestations Scribe Attestion: 05/26/18 23:24 Documentation prepared by Varun Foss, acting as medical certification specialist for Valente Lux MD. <Varun Foss - Last Filed: 05/26/18 23:39> - Discharge Dispostion Decision to Admit order: Yes <Valente Lux - Last Filed: 05/28/18 19:51> Diagnosis at time of Disposition: Dialysis catheter clot or failure - Discharge Dispostion Disposition: HOME Condition at time of disposition: Improved
--- NOTE | 2018-05-27 02:00 | HP ---
CHIEF COMPLAINT: Obstructed HD catheter PCP: none HISTORY OF PRESENT ILLNESS: The patient is a 58 yo m w/ PMH ESRD on HD (TThS), HTN who came into the ED c/o because he was told his HD catheter was clogged. The patient states that while receiving HD on Friday, the machine indicated that the catheter was clogged. He was advised to go to the ER at that time, but was not able to. When receiving dialysis today, the HD machine once again indicated a blockage and he was advised to present for evaluation. The patient states that he was able to complete a full HD session on both of the above occasions. The patient's catheter was replaced approx. 3 months ago. The patient also notes RUE swelling for the past 2-3 weeks from the site of his AV fistula to his fingertips. Patient denies any chest pain, SOB, arm pain, abdominal pain, changes in vision , fevers, chills. In addition, the patient notes that he has been unable to take his medications for the past 1 month as he is unemployed without insurance and could not afford his medications. ER course was notable for: (1) BUN 29, Cr 8.8 (2) (3) PAST MEDICAL HISTORY: ESRD on HD for 8 months HTN PAST SURGICAL HISTORY: AV fistula placed 4 months ago Social History: Smoking: denies Alcohol: denies Drugs: denies Lives at home with daughter and grandchildren Family History: none Allergies No Known Allergies Allergy (Verified 05/26/18 19:48) HOME MEDICATIONS: Home Medications Medication Instructions Recorded Amlodipine Besylate [Norvasc -] 10 mg PO DAILY #30 tablet 03/27/17 Isosorbide Mononitrate [Imdur -] 30 mg PO DAILY #30 tab 06/01/17 Lisinopril 20 mg PO DAILY 02/09/18 Metoprolol Tartrate [Lopressor -] 25 mg PO BID 02/09/18 REVIEW OF SYSTEMS CONSTITUTIONAL: Absent: fever, chills, diaphoresis, generalized weakness, malaise, loss of appetite, weight change HEENT: Absent: rhinorrhea, nasal congestion, throat pain, throat swelling, difficulty swallowing, mouth swelling, ear pain, eye pain, visual changes CARDIOVASCULAR: Absent: chest pain, syncope, palpitations, irregular heart rate, lightheadedness , peripheral edema RESPIRATORY: Absent: cough, shortness of breath, dyspnea with exertion, orthopnea, wheezing, stridor, hemoptysis GASTROINTESTINAL: Absent: abdominal pain, abdominal distension, nausea, vomiting, diarrhea, constipation, melena, hematochezia GENITOURINARY: Absent: dysuria, frequency, urgency, hesitancy, hematuria, flank pain, genital pain MUSCULOSKELETAL: Absent: myalgia, arthralgia, joint swelling, back pain, neck pain SKIN: Absent: rash, itching, pallor HEMATOLOGIC/IMMUNOLOGIC: Absent: easy bleeding, easy bruising, lymphadenopathy, frequent infections ENDOCRINE: Absent: unexplained weight gain, unexplained weight loss, heat intolerance, cold intolerance NEUROLOGIC: Absent: headache, focal weakness or paresthesias, dizziness, unsteady gait, seizure, mental status changes, bladder or bowel incontinence PSYCHIATRIC: Absent: anxiety, depression, suicidal or homicidal ideation, hallucinations. PHYSICAL EXAMINATION Vital Signs - 24 hr 05/26/18 05/27/18 19:49 01:52 Temperature 97.9 F 98.6 F Pulse Rate 103 H Pulse Rate [ 89 Right Radial] Respiratory 20 19 Rate Blood Pressure 151/107 Blood Pressure 146/96 [Left Arm] O2 Sat by Pulse 99 Oximetry (%) GENERAL: Awake, alert, and fully oriented, in no acute distress. HEAD: Normal with no signs of trauma. EYES: Pupils equal, round and reactive to light, extraocular movements intact, Sclera jaundiced with prominent vasculature and No lid lag. EARS, NOSE, THROAT: oropharynx clear without exudates. Moist mucous membranes. NECK: Normal range of motion, supple without lymphadenopathy, JVD, or masses. LUNGS: Breath sounds equal, clear to auscultation bilaterally. No wheezes, and no crackles. No accessory muscle use. HEART: Regular rate and rhythm, normal S1 and S2. 3/5 systolic ejection murmur heard at the right sternal border w/ radiation to the carotids. ABDOMEN: Soft, nontender, not distended, normoactive bowel sounds, no guarding, no rebound, no masses. No hepatomegaly or splenomegaly. MUSCULOSKELETAL: Normal range of motion at all joints. No bony deformities or tenderness. No CVA tenderness. UPPER EXTREMITIES: 2+ pulses, warm, well-perfused. No cyanosis. No clubbing. There is 3+ pitting edema of the RUE from the level of the bicep to the fingertips. The swollen area is erythematous and warm to the touch. No tenderness to palpation. LOWER EXTREMITIES: 2+ pulses, warm, well-perfused. No calf tenderness. No peripheral edema. NEUROLOGICAL: Cranial nerves II-X intact. Normal speech. Normal gait. strength 5/5 in all 4 extremities. Sensation preserved. PSYCHIATRIC: Cooperative. Good eye contact. Appropriate mood and affect. SKIN: Warm, dry, normal turgor, no rashes or lesions noted, normal capillary refill. Laboratory Results - last 24 hr 05/26/18 05/26/18 05/26/18 21:28 21:28 21:28 WBC 5.7 RBC 4.45 Hgb 12.4 Hct 38.1 D MCV 85.8 MCH 27.8 MCHC 32.5 RDW 17.0 H Plt Count 243 D MPV 7.4 L Absolute Neuts (auto) 3.4 Neutrophils % 59.5 Lymphocytes % 23.5 D Monocytes % 8.6 Eosinophils % 8.2 H Basophils % 0.2 Nucleated RBC % 0 PT with INR 12.60 INR 1.12 Sodium 139 Potassium 4.2 D Chloride 99 Carbon Dioxide 32 D Anion Gap 8 BUN 29 H Creatinine 8.8 H* Creat Clearance w eGFR 6.28 Random Glucose 119 H D Calcium 7.8 L Total Bilirubin 0.4 AST 12 L ALT 10 L D Alkaline Phosphatase 180 H D Total Protein 8.5 H Albumin 4.0 Blood Type Antibody Screen 05/26/18 21:28 WBC RBC Hgb Hct MCV MCH MCHC RDW Plt Count MPV Absolute Neuts (auto) Neutrophils % Lymphocytes % Monocytes % Eosinophils % Basophils % Nucleated RBC % PT with INR INR Sodium Potassium Chloride Carbon Dioxide Anion Gap BUN Creatinine Creat Clearance w eGFR Random Glucose Calcium Total Bilirubin AST ALT Alkaline Phosphatase Total Protein Albumin Blood Type B POSITIVE Antibody Screen Negative ASSESSMENT/PLAN: The patient is a 58 yo m w/PMH HTN, ESRD on HD who comes into the ED for a clogged HD catheter and found to have elevated blood pressure. #Clogged HD catheter -Vascular surgery consult -consider TpA to loosen potential clot prior to exchange #Right arm swelling -RUE doppler to rule out subclavian DVT -f/u vascular surgery recs #Uncontrolled HTN and subconjunctival hemorrhage 2/2 medication nonadherence -resumed home norvasc 10 daily and metoprolol 25 BID -holding home lisinopril to avoid aggressive drop in BP #ESRD on HD -on schedule for HD -nephro consult #FEN -no fluids indicated -lytes WNL, replete PRN -sodium controlled diet #prophy -low risk for DVT as short length of stay expected #Dipso -admit obs -Home Medications must be verified with the patient's pharmacy Visit type - Emergency Visit Emergency Visit: Yes ED Registration Date: 05/26/18 Care time: The patient presented to the Emergency Department on the above date and was hospitalized for further evaluation of their emergent condition. - New Patient This patient is new to me today: Yes Date on this admission: 05/27/18 - Critical Care Critical Care patient: No Hospitalist Screening - Colonoscopy Questionnaire Colonoscopy Questionnaire: Colonoscopy Questionnaire - Patient: 50 - 75 years old and never had a screening colonoscopy: Unknown History of colon or rectal polyps, or CA: Unknown History of IBD, Crohn's disease or UC: Unknown History of abdominal radiation therapy as a child: Unknown - Relative: 1 with colon or rectal CA, or polyps at age 60 or younger: Unknown Colon or rectal CA diagnosed at age 45 or younger: Unknown Multiple relatives with colon or rectal CA: Unknown - Outcome: Screening Result: Negative Screen
--- NOTE | 2018-05-27 03:18 | PN ---
Teaching Attending Note Name of Resident: Rustam Licona ATTENDING PHYSICIAN STATEMENT I saw and evaluated the patient. I reviewed the resident's note and discussed the case with the resident. I agree with the resident's findings and plan as documented. SUBJECTIVE: Patient is a 58 year old man with a PMH of end stage renal disease for 8 months (on dialysis ), asthma, GERD and hypertension who presents to the ER because of left chest dialysis catheter malfunction. He has had the catheter for about 3 months and says it has never worked well from the outset. He is unclear if they instilled cathflo into the catheter at the dialysis center. The patient reports that he was able to complete his 4 hour hemodialysis treatment today. He denies any symptoms at time of exam. He denies any fever, chills, nausea, vomit, diarrhea,constipation or urinary symptoms. He denies any chest pain, shortness of breath, headache and dizziness. The patient denies any other complaints. OBJECTIVE: Alert and in no distress Vital Signs Period Temp Pulse Resp BP Sys/Beyer Pulse Ox Last 24 Hr 97.9 F-98.6 F 67-103 18-20 141-151/96-107 99-99 HEENT: No Jaundice; has eye redness with bilateral conjuctival injection; no discharge, PERRLA, EOMI. Normocephalic, atraumatic. External ears are normal and hearing is grossly intact. No nasal discharge. Neck: Supple, nontender. No palpable adenopathy or thyromegaly. No JVD Chest: Left chest permacath. Good effort. Clear to auscultation and percussion. Heart: Regular. No S3 or rub;2/6 JONATHAN Abdomen: Not distended, soft, nontender and no HSM. No rebound or guarding. Normoactive bowel sounds. Ext: Edema of right arm. Peripheral pulses intact. No leg edema. Skin: Warm and dry. No petechiae, rash or ecchymosis. Neuro: Alert. Oriented x3. CN 2-12 grossly intact. Sensation grossly intact in all four extremities and DTR are symmetric. Current Medications Generic Name Dose Route Start Last Admin Trade Name Freq PRN Reason Stop Dose Admin Amlodipine Besylate 10 mg 05/27/18 10:00 Norvasc - PO DAILY [facility] Isosorbide Mononitrate 30 mg 05/27/18 10:00 Imdur - PO DAILY [facility] Metoprolol Tartrate 25 mg 05/27/18 02:00 Lopressor - PO BID [facility] Home Medications Medication Instructions Recorded Amlodipine Besylate [Norvasc -] 10 mg PO DAILY #30 tablet 03/27/17 Isosorbide Mononitrate [Imdur -] 30 mg PO DAILY #30 tab 06/01/17 Lisinopril 20 mg PO DAILY 02/09/18 Metoprolol Tartrate [Lopressor -] 25 mg PO BID 02/09/18 Abnormal Lab Results 05/26/18 05/26/18 21:28 21:28 RDW 17.0 H MPV 7.4 L Eosinophils % 8.2 H BUN 29 H Creatinine 8.8 H* Random Glucose 119 H D Calcium 7.8 L AST 12 L ALT 10 L D Alkaline Phosphatase 180 H D Total Protein 8.5 H ASSESSMENT AND PLAN: 1. Dialysis catheter malfunction - Will consult the vascular surgeon. if it has no been done already, will instill cathflo. Consult his form setter and ascertain if he has had mapping of his central veins to rule out subclavian occlusion as the cause of his righ arm edema - since it is chronic. 2. Hypocalcemia - Likely has secondary hyperparathyroidism. get his treatment regimen from the dialysis unit. 3. DVT prophylaxis - Heparin 5000u sq tid. 4. Advance directives - Full code
[2018-05-27] MEDS: METOPROLOL TARTRATE 25 MG TABLET (FP) PO SCH ×3 (04:03→21:50)
[2018-05-27 07:18] LABS: HEMATOCRIT 35.7 % (35.4-49); HEMOGLOBIN 11.7 GM/dL (11.7-16.9); MCH 28.1 pg (25.7-33.7); MCHC 32.6 g/dl (32.0-35.9); MEAN CELL VOLUME 86.2 fl (80-96); MEAN PLT VOLUME 7.2 fl (7.5-11.1); PLATELET COUNT 213 K/MM3 (134-434); RBC 4.15 M/mm3 (4.00-5.60); RDW 16.9 % (11.9-15.9); WHITE BLOOD COUNT 4.9 K/mm3 (4.0-10.0)
[2018-05-27 07:26] LABS: INR 1.13 (0.82-1.09); PROTHROMBIN TIME (PATIENT) 12.8 SEC (9.7-13.0)
[2018-05-27 07:28] LABS: ACTIVATED PTT 34.3 SECONDS (25.2-36.5)
[2018-05-27 07:41] LABS: ALBUMIN 3.4 g/dl (3.4-5.0); ANION GAP 9 (8-16); BLOOD UREA NITROGEN 39 mg/dL (7-18); CALCIUM 7.2 mg/dL (8.5-10.1); CHLORIDE 101 mmol/L (98-107); CO2 29 mmol/L (21-32); GLUCOSE,RANDOM 88 mg/dL (74-106); PHOSPHOROUS 5.1 mg/dL (2.5-4.9); POTASSIUM 4.4 mmol/L (3.5-5.1); SGOT/AST 8 U/L (15-37); SODIUM 139 mmol/L (136-145)
[2018-05-27 08:04] LABS: ALK PHOS 153 U/L (45-117); BILIRUBIN,TOTAL 0.4 mg/dL (0.2-1.0); SGPT/ALT 9 U/L (12-78); TOT PROT 7.3 g/dl (6.4-8.2)
--- NOTE | 2018-05-27 08:27 | SPA.PREOP ---
- PRE-OP NOTE Dx: Malfunctioning permacatheter Planned Procedure: Permacatheter exchange Surgeon: Jamal Lincoln Consent: To be obtained by surgeon after all risks, benefits and alternatives explained to patient. Last Vital Signs Temp Pulse Resp BP Pulse Ox 98 F 70 20 145/101 99 05/27/18 06:00 05/27/18 06:00 05/27/18 06:00 05/27/18 06:00 05/27/18 02:36 Lab Results WBC 4.9 K/mm3 (4.0-10.0) 05/27/18 06:30 RBC 4.15 M/mm3 (4.00-5.60) 05/27/18 06:30 Hgb 11.7 GM/dL (11.7-16.9) 05/27/18 06:30 Hct 35.7 % (35.4-49) 05/27/18 06:30 MCV 86.2 fl (80-96) 05/27/18 06:30 MCHC 32.6 g/dl (32.0-35.9) 05/27/18 06:30 RDW 16.9 % (11.9-15.9) H 05/27/18 06:30 Plt Count 213 K/MM3 (134-434) 05/27/18 06:30 Sodium 139 mmol/L (136-145) 05/27/18 06:30 Potassium 4.4 mmol/L (3.5-5.1) 05/27/18 06:30 Chloride 101 mmol/L (98-107) 05/27/18 06:30 Carbon Dioxide 29 mmol/L (21-32) 05/27/18 06:30 Anion Gap 9 (8-16) 05/27/18 06:30 BUN 39 mg/dL (7-18) H 05/27/18 06:30 Creatinine 8.8 mg/dL (0.7-1.3) H* 05/26/18 21:28 Random Glucose 88 mg/dL (74-106) D 05/27/18 06:30 Calcium 7.2 mg/dL (8.5-10.1) L 05/27/18 06:30 Blood Type B POSITIVE 05/26/18 21:28 Antibody Screen Negative 05/26/18 21:28 INR 1.13 (0.82-1.09) 05/27/18 06:30 - ASSESSMENT/PLAN 1. Make NPO after midnight except po meds 2. GI/DVT PPX 3. Medical optimization / clearance Problem List - Problems (1) Dialysis catheter clot or failure Assessment/Plan: 1. Going to OR today 2. NPO 3. GI/DVT PPX 4. Medical optimization / clearance Code(s): [id number] - Visit type - Case Type Case Type: ED Admission - New patient This patient is new to me today: Yes Date on this admission: 05/27/18
[2018-05-27 08:46] LABS: CREATININE 9.9 mg/dL (0.7-1.3)
[2018-05-27] MEDS ORDERED: amLODIPine BESYLATE 10 MG TABLET (FP) PO SCH (10:00)
[2018-05-27] MEDS ORDERED: ISOSORBIDE MONONITRATE 30 MG TAB.SR.24H (FP) PO SCH (10:00)
--- NOTE | 2018-05-27 13:00 | EKG ---
Test Reason : Blood Pressure : / mmHG Vent. Rate : 075 BPM Atrial Rate : 075 BPM P-R Int : 152 ms QRS Dur : 076 ms QT Int : 374 ms P-R-T Axes : 075 022 077 degrees QTc Int : 417 ms NORMAL SINUS RHYTHM POSSIBLE LEFT ATRIAL ENLARGEMENT SEPTAL INFARCT , AGE UNDETERMINED ABNORMAL ECG WHEN COMPARED WITH ECG OF 09-FEB-2018 14:52, SEPTAL INFARCT IS NOW PRESENT Confirmed by JADA SPIVEY, ANAMARIA ([id number]) on 05/27/2018 1:00:35 PM Referred By: Confirmed By:ANAMARIA ELIAS MD
[2018-05-27] MEDS ORDERED: SODIUM CHLORIDE 250 ML IV PRN ×2 (13:06→15:55)
--- NOTE | 2018-05-27 13:06 | CONSULT ---
Consult Consult Specialty:: Nephrology Reason for Consultation:: ESRD - History of Present Illness Chief Complaint: dislodged permacath History of Present Illness: Pt is a 58 year old male with pmhx of ESRD, HTN, and anemia who was sent in for dislodged permacath. Pt refused to go to the hospital after the last three treatments. He denies shortness of breath, fevers or chills. He is not compliant with HD perscription. He does not take his bp meds. He was last dialyzed yesterday. - History Source History Provided By: Patient, Medical Record - Past Medical History Cardio/Vascular: Yes: HTN Gastrointestinal: Yes: GERD Renal/: Yes: Renal Failure, Hemodialysis - Past Surgical History Past Surgical History: Yes: AV Fistula/Graft - Alcohol/Substance Use Hx Alcohol Use: No - Smoking History Smoking history: Never smoked Have you smoked in the past 12 months: No Home Medications - Allergies Allergies/Adverse Reactions: Allergies Allergy/AdvReac Type Severity Reaction Status Date / Time No Known Allergies Allergy Verified 05/26/18 19:48 - Home Medications Home Medications: Ambulatory Orders Amlodipine Besylate [Norvasc -] 10 mg PO DAILY #30 tablet 03/27/17 Isosorbide Mononitrate [Imdur -] 30 mg PO DAILY #30 tab 06/01/17 Lisinopril 20 mg PO DAILY 02/09/18 Metoprolol Tartrate [Lopressor -] 25 mg PO BID 02/09/18 Family Disease History - Family Disease History Family History: Denies Review of Systems - Review of Systems Constitutional: reports: No Symptoms Eyes: reports: No Symptoms HENT: reports: No Symptoms Neck: reports: No Symptoms Cardiovascular: reports: No Symptoms Gastrointestinal: reports: No Symptoms Genitourinary: reports: No Symptoms Musculoskeletal: reports: No Symptoms Integumentary: reports: No Symptoms Neurological: reports: No Symptoms Endocrine: reports: No Symptoms Hematology/Lymphatic: reports: No Symptoms Psychiatric: reports: No Symptoms Physical Exam Vital Signs: Vital Signs Temperature 98.2 F 05/27/18 10:00 Pulse Rate 75 05/27/18 10:00 Respiratory Rate 20 05/27/18 10:00 Blood Pressure 152/86 05/27/18 10:00 O2 Sat by Pulse Oximetry (%) 99 05/27/18 10:00 Constitutional: Yes: Calm Eyes: Yes: Conjunctiva Clear HENT: Yes: Atraumatic Neck: Yes: Supple Cardiovascular: Yes: S1, S2 Respiratory: Yes: CTA Bilaterally Gastrointestinal: Yes: Soft Renal/: Yes: WNL Extremities: Yes: Other (right arm edema, thrill and bruit present) Neurological: Yes: Oriented Psychiatric: Yes: Oriented Labs: CBC, BMP 05/27/18 06:30 05/27/18 06:30 Laboratory Tests 05/27/18 05/27/18 06:30 06:30 WBC 4.9 Hgb 11.7 Sodium 139 Potassium 4.4 Chloride 101 BUN 39 H Creatinine 9.9 H* Imaging - Results Chest X-ray: Report Reviewed Problem List - Problems (1) Dialysis catheter clot or failure Code(s): QTA1105 - (2) Anemia Code(s): D64.9 - ANEMIA, UNSPECIFIED (3) ESRD (end stage renal disease) Code(s): N18.6 - END STAGE RENAL DISEASE Assessment/Plan Current Medications Generic Name Dose Route Start Last Admin Trade Name Jenelle PRN Reason Stop Dose Admin Amlodipine Besylate 10 mg 05/27/18 10:00 05/27/18 09:21 Norvasc - PO 10 mg DAILY WALTER Administration Isosorbide Mononitrate 30 mg 05/27/18 10:00 05/27/18 09:21 Imdur - PO 30 mg DAILY WALTER Administration Metoprolol Tartrate 25 mg 05/27/18 02:00 05/27/18 09:21 Lopressor - PO 25 mg BID WALTER Administration Impression 1. ESRD 2. HTN 3. HD access malfunction 4. anemia 5. right arm swelling Plan - vascular consult to evaluate permacath and right arm access - resume bp meds - next HD tomorrow - renal diet Dr Ramos
[2018-05-27] MEDS ORDERED: LIDOCAINE HCL 1%, 10 MG/ML (20ML VIAL) ONE (14:11)
[2018-05-27] MEDS ORDERED: MIDAZOLAM HCL 2 MG/2 ML SINGLE DOSE VIAL ONE (14:50)
[2018-05-27] MEDS ORDERED: ceFAZolin SODIUM 1 GM VIAL ONE (14:50)
[2018-05-27] MEDS ORDERED: ceFAZolin SODIUM 1 GM VIAL IVPB ONE (14:55)
[2018-05-27] MEDS ORDERED: LIDOCAINE HCL 1%, 10 MG/ML (50 mL VIAL) IJ ONE (14:58)
[2018-05-27] MEDS ORDERED: ONDANSETRON 4 MG/2 ML VIAL IVPUSH PRN ×2 (15:16→15:55)
--- NOTE | 2018-05-27 15:21 | OP ---
Operative Note - Note: Operative Date: 05/27/18 Pre-Operative Diagnosis: malfunctioning permacath Operation: permacath exchange Post-Operative Diagnosis: Same as Pre-op Surgeon: Jamal Lincoln Anesthesia: Fractional Estimated Blood Loss (mls): 10 Operative Report Dictated: Yes
[2018-05-27] MEDS ORDERED: SODIUM CHLORIDE 1,000 ML IV SCH ×2 (15:30→15:55)
--- NOTE | 2018-05-27 17:57 | PN ---
Teaching Attending Note Name of Resident: Elle Sanchez ATTENDING PHYSICIAN STATEMENT I saw and evaluated the patient. I reviewed the resident's note and discussed the case with the resident. I agree with the resident's findings and plan as documented. SUBJECTIVE: No fever or chills. has no pain. reports swelling in RUE x 2 months now. OBJECTIVE: NAD. CV; RRR Lungs: CTAB Ext: no edema on LE. RUE with 3 + pitting edema . ASSESSMENT AND PLAN: 58 y/o man with h/o , on Hd, asthma, GERD and hypertension who presented with malfunctional permacath 1- Malfunctional permacath: - s/p exchage of permacath today 2- ESRD: for HD tomorrow 3- HTN: cont meds 4- R Upper extremity edema : worse than before. records reviewed. US in 03/18 with no DVt arterial and venous US in 02/15 with no stenosis or clots. - will repeat US . - will ask Dr. Lincoln to evaluate R arm HLOC , need to r/o DVT
--- NOTE | 2018-05-27 18:58 | PN ---
Physical Exam: SUBJECTIVE: Patient seen and examined at bedside. Today, pt states that he has had RUE edema over the last two months. Also states that over his last two dialysis sessions, catheter was clogged. Still was able to receive dialysis. Pt states that while he is ESRD, still produces small void volumes. Denies MCKINNEY, fever, chills, SOB, or changes in bowel function. OBJECTIVE: Vital Signs Period Temp Pulse Resp BP Sys/Beyer Pulse Ox Last 24 Hr 97.9 F-98.6 F 64-103 16-20 126-152/85-107 95-99 GENERAL: The patient is pleasant. resting in bed, awake, alert, and fully oriented, in no acute distress. HEAD: Normal with no signs of trauma. EYES: PERRL, extraocular movements intact, sclera anicteric, conjunctiva clear. ENT: Ears normal, nares patent, oropharynx clear without exudates NECK: Trachea midline, full range of motion, supple. LUNGS: Breath sounds equal, clear to auscultation bilaterally, no wheezes, no crackles, no accessory muscle use. CHEST: +L sided permacath HEART:+tachycardic rate and rhythm, S1, S2 without murmur, rub or gallop. ABDOMEN: Soft, nontender, nondistended, normoactive bowel sounds, no guarding EXTREMITIES: 2+ pt pulses. +RUE edema - 2-3+, without TTP NEUROLOGICAL: Cranial nerves II through XII grossly intact. 4/5 motor strength upper and lower extremities. PSYCH: Normal mood, normal affect. SKIN: Warm, dry, normal turgor Laboratory Results 05/27/18 06:30 BUN 39 H Creatinine 9.9 H* Calcium 7.2 L Phosphorus 5.1 H AST 8 L D ALT 9 L Alkaline Phosphatase 153 H D Active Medications Generic Name Dose Route Start Last Admin Trade Name Freq PRN Reason Stop Dose Admin Amlodipine Besylate 10 mg 05/28/18 10:00 Norvasc - PO DAILY WALTER Sodium Chloride 250 mls @ 3,000 mls/hr 05/27/18 15:55 Normal Saline - IV 05/28/18 13:06 PRN PRN Hypotension during Dialysis Isosorbide Mononitrate 30 mg 05/28/18 10:00 Imdur - PO DAILY WALTER Metoprolol Tartrate 25 mg 05/27/18 22:00 Lopressor - PO BID WALTER Ondansetron HCl 4 mg 05/27/18 15:55 Zofran Injection IVPUSH 05/28/18 03:00 Q6H PRN NAUSEA AND/OR VOMITING IMAGING 05/26/18- CXR: no evidence of CHF, PNA, pleural effusion, or pneumothorax. the tip of the L vascular catheter is in the region of the SVC. 05/27/18: Duplex scan upper extremity artery : taken, pending 05/27/18: CXR: no significant interval change or acute lung disease is present ASSESSMENT/PLAN: 58 y/o M with PMH ESRD on HD (T, Th, Fri), HTN, who came to the ED d/t HD catheter blockage. # Dialysis catheter malfnc -s/p permacath exchange (PO Day 0) -Vascular: Dr. Lincoln #HTN -continue amlodipine 10mg PO qd -metoprolol tartate 25mg PO BID #RUE edema r/o compression or clot -F/u official report- duplex RUE -will be evaluated by vascular #ESRD on HD -for dialysis tomorrow -Nephro: Dr. Ramos #F/E/N -no IVF at this time; avoid overload pt dialysis pt -continue to follow lytes -renal diet #PPX SCD's #Dispo continue monitoring on med-surg Visit type - Emergency Visit Emergency Visit: No - New Patient This patient is new to me today: Yes Date on this admission: 05/27/18 - Critical Care Critical Care patient: No
[2018-05-28 07:26] LABS: MAGNESIUM 2.1 mg/dL (1.8-2.4)
[2018-05-28 07:28] LABS: PHOSPHOROUS 5.4 mg/dL (2.5-4.9)
[2018-05-28 07:30] LABS: BASO % 1.2 % (0-2.0); EOS % 8.2 % (0-4.5); HEMATOCRIT 34.5 % (35.4-49); HEMOGLOBIN 11.3 GM/dL (11.7-16.9); LYMPH % 21.6 % (8-40); MCH 28.6 pg (25.7-33.7); MCHC 32.9 g/dl (32.0-35.9); MEAN CELL VOLUME 86.8 fl (80-96); MEAN PLT VOLUME 7.5 fl (7.5-11.1); MONO % 9.7 % (3.8-10.2); NEUT % 59.3 % (42.8-82.8); PLATELET COUNT 205 K/MM3 (134-434); RBC 3.97 M/mm3 (4.00-5.60); RDW 16.7 % (11.9-15.9); WHITE BLOOD COUNT 6.1 K/mm3 (4.0-10.0)
[2018-05-28 07:35] LABS: ANION GAP 13 (8-16); BLOOD UREA NITROGEN 49 mg/dL (7-18); CHLORIDE 100 mmol/L (98-107); CO2 26 mmol/L (21-32); GLUCOSE,RANDOM 73 mg/dL (74-106); POTASSIUM 4.5 mmol/L (3.5-5.1); SODIUM 139 mmol/L (136-145)
[2018-05-28 07:40] LABS: CALCIUM 6.9 mg/dL (8.5-10.1); CREATININE 12.2 mg/dL (0.7-1.3)
[2018-05-28] MEDS: METOPROLOL TARTRATE 25 MG TABLET (FP) PO SCH (09:50)
[2018-05-28] MEDS ORDERED: amLODIPine BESYLATE 10 MG TABLET (FP) PO SCH (10:00)
[2018-05-28] MEDS ORDERED: ISOSORBIDE MONONITRATE 30 MG TAB.SR.24H (FP) PO SCH (10:00)
--- NOTE | 2018-05-28 10:09 | PN ---
Progress Note (short form) - Note Progress Note: 58yo M s/p Left permacath exchange, pt seen at bedside. Pt states feeling well denies any pain around catheter site. Continues to complain of Right arm swelling, but denies it worsening. Denies fever, chills, n/v. PE: Gen: A&O x3 Resp: breathing comfortably Left chest: permacath in place, no erythema or discharge RUE: +2 edema, AV fistula good thrill Problem List - Problems (1) Dialysis catheter clot or failure Assessment/Plan: Plan: -pt should be have dialysis today and if no issues, no further vascular intervention needed as inpatient. -pt should follow up as outpatient with Dr. Lincoln office for fistulagram to address Rt arm swelling and AV fistula. -please reconsult vascular if any further issues thanks Code(s): [id number] -
[2018-05-28 10:42] VITALS: TEMP 98.5
--- NOTE | 2018-05-28 14:03 | PN ---
Teaching Attending Note Name of Resident: Elle Sanchez ATTENDING PHYSICIAN STATEMENT I saw and evaluated the patient. I reviewed the resident's note and discussed the case with the resident. I agree with the resident's findings and plan as documented. SUBJECTIVE: nopain , no fever or chills OBJECTIVE: NAD. CV; RRR Lungs: CTAB Ext: no edema on LE. RUE with 2 + pitting edema . ASSESSMENT AND PLAN: 58 y/o man with h/o , on Hd, asthma, GERD and hypertension who presented with malfunctional permacath 1- Malfunctional permacath: - s/p exchage of permacath yesterday. functioning well during HD today 2- ESRD: HD today 3- HTN: cont meds 4- R Upper extremity edema : No DVT on US. f/u with vascular as out pt for fistulogram. dc home
[2018-05-28 14:48] VITALS: BP 146/96; PULSE 67
--- NOTE | 2018-05-28 15:38 | PN ---
Progress Note, Physician History of Present Illness: Pt seen and examined at bedside. He is awake and alert. He tolerated HD today. - Objective Vital Signs: Vital Signs Temperature 98.5 F 05/28/18 10:25 Pulse Rate 67 05/28/18 14:40 Respiratory Rate 18 05/28/18 14:40 Blood Pressure 146/96 05/28/18 14:40 O2 Sat by Pulse Oximetry (%) 96 05/28/18 10:00 Constitutional: Yes: Calm Eyes: Yes: Conjunctiva Clear HENT: Yes: Atraumatic Cardiovascular: Yes: S1, S2 Respiratory: Yes: CTA Bilaterally Gastrointestinal: Yes: Soft Genitourinary: Yes: WNL Edema: Yes Edema: RUE: 1+ Neurological: Yes: Oriented Psychiatric: Yes: Oriented Labs: CBC, BMP 05/28/18 06:00 05/28/18 06:00 INR, PTT INR 1.13 (0.82-1.09) 05/27/18 06:30 Problem List - Problems (1) Dialysis catheter clot or failure Code(s): [id number] - (2) Anemia Code(s): D64.9 - ANEMIA, UNSPECIFIED (3) ESRD (end stage renal disease) Code(s): N18.6 - END STAGE RENAL DISEASE Assessment/Plan Impression 1. ESRD 2. HTN 3. HD access malfunction 4. anemia 5. right arm swelling 6. non compliance Plan - HD today - vascular input appreciated - compliance discussed with pt - renal diet Dr Ramos
--- NOTE | 2018-05-28 19:19 | DS ---
Physical Exam: SUBJECTIVE: Patient seen and examined at bedside. No acute events overnight. Today, pt feels well. Completed dialysis without issues with catheter. Denies MCKINNEY , fever, chills, SOB, or changes in urinary or bowel function. OBJECTIVE: Vital Signs Period Temp Pulse Resp BP Sys/Beyer Pulse Ox Last 24 Hr 97.5 F-99.3 F 59-79 18-20 120-159/79-106 96-96 PHYSICAL EXAM GENERAL: The patient is pleasant. resting in bed, awake, alert, and fully oriented, in no acute distress. HEAD: Normal with no signs of trauma. EYES: PERRL, extraocular movements intact, sclera anicteric, conjunctiva clear. ENT: Ears normal, nares patent, oropharynx clear without exudates NECK: Trachea midline, full range of motion, supple. LUNGS: Breath sounds equal, clear to auscultation bilaterally, no wheezes, no crackles, no accessory muscle use. CHEST: +L sided permacath HEART:regular ate and rhythm, S1, S2 without murmur, rub or gallop. ABDOMEN: Soft, nontender, nondistended, normoactive bowel sounds, no guarding EXTREMITIES: 2+ pt pulses. +RUE edema - 2-3+, without TTP . +RUE with AVF site, with bruit noted. NEUROLOGICAL: Cranial nerves II through XII grossly intact. 4/5 motor strength upper and lower extremities. PSYCH: Normal mood, normal affect. SKIN: Warm, dry, normal turgor LABS Laboratory Results - last 24 hr 05/28/18 05/28/18 06:00 06:00 WBC 6.1 RBC 3.97 L Hgb 11.3 L Hct 34.5 L MCV 86.8 MCH 28.6 MCHC 32.9 RDW 16.7 H Plt Count 205 MPV 7.5 Absolute Neuts (auto) 3.6 Neutrophils % 59.3 Lymphocytes % 21.6 Monocytes % 9.7 Eosinophils % 8.2 H Basophils % 1.2 D Nucleated RBC % 0 Sodium 139 Potassium 4.5 Chloride 100 Carbon Dioxide 26 Anion Gap 13 BUN 49 H Creatinine 12.2 H* Creat Clearance w eGFR 4.31 Random Glucose 73 L Calcium 6.9 L* Phosphorus 5.4 H Magnesium 2.1 Additional testing 05/26/18 05/27/18 05/28/18 21:28 06:30 06:00 Creatinine 8.8 H* 9.9 H* 12.2 H* Creat Clearance w eGFR 6.28 5.48 4.31 Calcium 7.8 L 7.2 L 6.9 L* Alkaline Phosphatase 180 H D 153 H D Total Protein 8.5 H 7.3 IMAGING 05/26/18- CXR: no evidence of CHF, PNA, pleural effusion, or pneumothorax. the tip of the L vascular catheter is in the region of the SVC. 05/27/18: Duplex scan upper extremity artery : taken, pending 05/27/18: CXR: no significant interval change or acute lung disease is present HOSPITAL COURSE: Date of Admission:05/26/18 Date of Discharge: 05/28/18 Admit diagnosis: dialysis catheter malfunction 58 y/o man with a PMH of end stage renal disease for 8 months (on dialysis ), asthma, GERD and hypertension who presented to the ER because of left chest dialysis catheter malfunction. He has had the catheter for about 3 months and states that it has never worked well from the outset. He is unclear if they instilled cathflo into the catheter at the dialysis center. The patient reported that he was able to complete his 4 hour hemodialysis treatment on day of admission. He denies any symptoms at time of exam. Pt admitted for dialysis catheter malfunction. Pt was managed as his permacath was exchanged by the vascular team. He will f/u as an outpt. Pt completed dialysis on day of discharge without issue. During this time, pt also with chronic RUE edema. Duplex of RUE did not reveal clot. Pt may need fistulogram to address swelling as an outpatient, as well as AV fistula. He will also f/u with Nephro and [facility] clinic. D/w patient, in agreement. Minutes to complete discharge: 44 Discharge Summary Reason For Visit: DIALYSIS CATHETER CLOT OR FAILURE Condition: Improved - Instructions Diet, Activity, Other Instructions: You were in the hospital because your dialysis catheter was clogged. You were seen by the vascular surgeon and your catheter was exchanged. Your visit You were seen by the medicine and vascular surgery teams Medications You may continue your home medications. Care You may continue your dialysis sessions. Follow-ups Please follow up with the following physicians: -Dr. Lincoln, the vascular surgeon that saw you in the hospital - 1 week. You may need a procedure called a fistulogram to address the swelling in your right arm, as well as AV fistula. -[facility] [address] [place] [address] (to establish primary care)- 1 week: [address] [place] [address]: Please call [phone] to make an appointment. -Dr. Ramos- the over the horizon targeting supervisor (kidney doctor) that saw you in the hospital - 1 week If you develop shortness of breath or chest pain, please go to the hospital. We hope you feel better soon. Referrals: Clinic, [facility] [Other] - 1 Week Jamal Lincoln MD [Staff Physician] - 1 Week Juni Ramos MD [Staff Physician] - 1 Week Disposition: HOME - Home Medications Comprehensive Discharge Medication List: Ambulatory Orders Amlodipine Besylate [Norvasc -] 10 mg PO DAILY #30 tablet 03/27/17 Isosorbide Mononitrate [Imdur -] 30 mg PO DAILY #30 tab 06/01/17 Lisinopril 20 mg PO DAILY 02/09/18 Metoprolol Tartrate [Lopressor -] 25 mg PO BID 02/09/18 This patient is new to me today: No Emergency Visit: No Critical Care patient: No - Discharge Referral Referred to [facility] Med P.C.: No
--- NOTE | 2018-05-29 17:33 | PATH ---
Surgical Pathology Report Patient Name: JAMSHID ABREU Med. Rec. #: [id number] /Age/Gender: 1960 (Age: 58) / M Account: [id number] Location: [facility] MED/SURG Taken: 05/27/2018 Received: 05/28/2018 Reported: 05/29/2018 Physicians: Jamal Tapia M.D. Specimen(s) Received OLD PERMA CATHETER Clinical History Dialysis catheter clot Final Diagnosis OLD PERMACATH, REMOVAL: SEGMENT OF CATHETER. GROSS EXAMINATION ONLY Electronically Signed Cris Yeung M.D. Gross Description Received fresh labeled "old permacath," is a 40 cm in length double lumen catheter. No soft tissue is present. No sections are submitted, gross only. /05/28/2018 saudi/05/28/2018
== END 2018-05-28 15:22 | disposition home or self-care (01) ==
LOC: JER 19:38 → JERBED 22:19 → J7W 05-27 02:18
PROVIDERS: ADMIT Internal Medicine; ATTEND Internal Medicine
CPT/HCPCS: 36415; 71045-TC-FY; 71046-TC-FY; 76000-TC-FY; 80048; 80053; 83735; 84100; 85025; 85027; 85610; 85730; 86704; 86706; 86708; 86850; 86900; 86901; 87340; 93005; 93010; 93971; 99285-25; G0378; J1644

== ENCOUNTER 2018-06-11 19:31 | Inpatient (IN) | payer OTHER ==
--- NOTE | 2018-06-11 19:44 | PDOC ---
Rapid Medical Evaluation Time Seen by Provider: 06/11/18 19:38 Medical Evaluation: Allergies Allergy/AdvReac Type Severity Reaction Status Date / Time No Known Allergies Allergy Verified 05/26/18 19:48 06/11/18 19:38 I have performed a brief-in person evaluation of this patient in triage. The patient presents to the ER c/o: Right Av shunt placed x4 months ago Seen Dr. Lincoln/vascular surgeon/infomred to have pt elevate right arm (X1 month ago while getting permacath) Dialyzed today Painful to right arm now. Seen Dr. Ramos [phone] /consumer sales representative Pertinent PE findings: +extreme swelling to right forearm/hand 2+radial pulse I have ordered the following: doppler RUE, cbc/cmp The patient will proceed to the ED for further evaluation.
[2018-06-11 20:11] LABS: BASO % 2.1 % (0-2.0); HEMOGLOBIN 12.2 GM/dL (11.7-16.9); LYMPH % 28.8 % (8-40); MCH 28.3 pg (25.7-33.7); MCHC 33.1 g/dl (32.0-35.9); MEAN CELL VOLUME 85.7 fl (80-96); MEAN PLT VOLUME 7.4 fl (7.5-11.1); MONO % 10.4 % (3.8-10.2); NEUT % 47.7 % (42.8-82.8); PLATELET COUNT 307 K/MM3 (134-434); RBC 4.32 M/mm3 (4.00-5.60); RDW 17.3 % (11.9-15.9); WHITE BLOOD COUNT 5.6 K/mm3 (4.0-10.0)
[2018-06-11] MEDS ORDERED: morphine SULFATE 4 MG/ML VIAL IVPUSH ONE (20:25)
[2018-06-11] MEDS ORDERED: ONDANSETRON 4 MG/2 ML VIAL IVPUSH ONE (20:28)
--- NOTE | 2018-06-11 20:29 | PDOC ---
History of Present Illness - General Chief Complaint: Pain Stated Complaint: PAIN Time Seen by Provider: 06/11/18 19:38 History Source: Patient Exam Limitations: No Limitations - History of Present Illness Initial Comments: 06/11/18 20:29 58 yo M w a hx asthma, HTN, on dialysis is here with R arm pain and swelling. He had a fistula created on his RUE 4 months ago. The fistula did not work and his arm has been swelling ever since. He is in immense pain. He receives dialysis through a port on his chest and got dialyzed today. He has pain with any motion of the hand. He denies recent fevers, infections, or rashes. Past History - Past Medical History Allergies/Adverse Reactions: Allergies Allergy/AdvReac Type Severity Reaction Status Date / Time No Known Allergies Allergy Verified 06/11/18 19:43 Home Medications: Ambulatory Orders Amlodipine Besylate [Norvasc -] 10 mg PO DAILY #30 tablet 03/27/17 Isosorbide Mononitrate [Imdur -] 30 mg PO DAILY #30 tab 06/01/17 Lisinopril 20 mg PO DAILY 02/09/18 Metoprolol Tartrate [Lopressor -] 25 mg PO BID 02/09/18 Anemia: No Asthma: Yes (childhood) Cancer: No Cardiac Disorders: No CVA: No COPD: No CHF: No DVT: No Dementia: No Diabetes: No Dialysis: Yes () GI Disorders: No Disorders: No HTN: Yes Hypercholesterolemia: No Liver Disease: No Seizures: No Thyroid Disease: No - Surgical History Abdominal Surgery: No Appendectomy: No Cardiac Surgery: No Cholecystectomy: No Lung Surgery: No Orthopedic Surgery: No - Immunization History Immunization Up to Date: Yes - Suicide/Smoking/Psychosocial Hx Smoking History: Former smoker Have you smoked in the past 12 months: No Information on smoking cessation initiated: No Hx Alcohol Use: No Drug/Substance Use Hx: No Substance Use Type: None Hx Substance Use Treatment: No Review of Systems - Review of Systems Comments:: 06/11/18 21:37 MUSCULOSKELETAL: Positive: Arm swelling Absent: myalgia, arthralgia, joint swelling SKIN: Positive: R arm Edema Absent: rash, itching, pallor CONSTITUTIONAL: Absent: fever, chills, diaphoresis, generalized weakness, malaise, loss of appetite HEENT: Absent: rhinorrhea, nasal congestion, throat pain, throat swelling, difficulty swallowing, mouth swelling, ear pain, eye pain, visual Changes CARDIOVASCULAR: Absent: chest pain, syncope, palpitations, irregular heart rate, lightheadedness RESPIRATORY: Absent: cough, shortness of breath, dyspnea with exertion, orthopnea, wheezing, stridor, hemoptysis GASTROINTESTINAL: Absent: abdominal pain, abdominal distension, nausea, vomiting, diarrhea, constipation, melena, hematochezia GENITOURINARY: Absent: dysuria, frequency, urgency, hesitancy, hematuria, flank pain, genital pain HEMATOLOGIC/IMMUNOLOGIC: Absent: easy bleeding, easy bruising, lymphadenopathy, frequent infections ENDOCRINE: Absent: unexplained weight gain, unexplained weight loss, heat intolerance, cold intolerance NEUROLOGIC: Absent: headache, focal weakness or paresthesias, dizziness, unsteady gait, seizure, mental status changes, bladder or bowel incontinence PSYCHIATRIC: Absent: anxiety, depression, suicidal or homicidal ideation, hallucinations. *Physical Exam - Vital Signs Last Vital Signs Temp Pulse Resp BP Pulse Ox 98.4 F 99 H 18 161/122 100 06/11/18 19:40 06/11/18 19:40 06/11/18 19:40 06/11/18 19:40 06/11/18 19:40 - Physical Exam Comments: 06/11/18 21:42 Right arm: The right arm is incredibly swollen and edematous. He has decreased strength and sensation in the R arm compared to the left. ROM is intact. Radial and ulnar pulses are intact, 2+ and equal to the left arm. EXTREMITIES: No cyanosis. No clubbing. No calf tenderness. GENERAL: Patient is in moderate acute distress due to R arm swelling and pain Well developed, well nourished. Awake and alert. HEENT: Normocephalic, atraumatic. PERRLA, EOMI. No conjunctival pallor. Sclera are non- icteric. Moist mucous membranes. Oropharynx is clear. NECK: Supple. Full ROM. No JVD. Carotid pulses 2+ and symmetric, without bruits. No thyromegaly. No lymphadenopathy. CARDIOVASCULAR: Patient has a systolic blowing murmur best heard in the aortic region. Regular rate and rhythm. rubs, or gallops. Distal pulses are 2+ and symmetric. PULMONARY: No evidence of respiratory distress. Lungs clear to auscultation bilaterally. No wheezing, rales or rhonchi. ABDOMINAL: Soft. Non-tender. Non-distended. No rebound or guarding. No organomegaly. Normoactive bowel sounds. MUSCULOSKELETAL Normal range of motion at all joints. No bony deformities or tenderness. No CVA tenderness. SKIN: Warm and dry. Normal capillary refill. No rashes. No jaundice. NEUROLOGICAL: Alert, awake, appropriate. Cranial nerves 2-12 intact. No deficits to light touch and temperature in face, upper extremities and lower extremities. No motor deficits in the in face, upper extremities and lower extremities. Normoreflexic in the upper and lower extremities. Normal speech. Toes are down-going bilaterally. Gait is normal without ataxia. PSYCHIATRIC: Cooperative. Good eye contact. Appropriate mood and affect. ED Treatment Course - LABORATORY CBC & Chemistry Diagram: 06/11/18 19:50 06/11/18 19:50 Medical Decision Making - Medical Decision Making 06/11/18 21:45 58 yo M on dialysis, got dialyzed today is here with a swollen, painful, and edematous right arm concerning for increased compartment pressure. threatened limb, impending vascular compromise. He has decreased strength and sensation. Dr. Lincoln tried putting in an AV fistula 4 months ago but it failed. The arm has been increasing in size and pain ever since. Patient needs an urgent vascular consultation. Plan: AMBROSIO lindo, morphine, zofran, admit. *DC/Admit/Observation/Transfer Diagnosis at time of Disposition: Swelling of right upper extremity, Dialysis catheter clot or failure - Discharge Dispostion Condition at time of disposition: Guarded Decision to Admit order: Yes - Referrals - Patient Instructions - Post Discharge Activity
--- NOTE | 2018-06-11 20:42 | PDOC ---
Attending Attestation - Resident Resident Name: Marck Lin - ED Attending Attestation I have performed the following: I have examined & evaluated the patient, The case was reviewed & discussed with the resident, I agree w/resident's findings & plan, Exceptions are as noted <Valente Lux - Last Filed: 06/11/18 20:42> - HPI HPI: 06/11/18 20:42 The patient is a 58-year-old male, with a past medical history of HTN, DM, ESRD , who presents to the ED with pain, swelling and erythema of the right arm. The patient had a fistula placed 4 months ago. The patient was dialyzed today from the catheter in his left chest. The patient denies any chest pain or shortness of breath. Denies any fever, chills, nausea, vomiting, diarrhea, or abdominal pain. Allergies: [employer] Roofing Apprentice/PCP: Dr. Ramos - Physicial Exam PE: 06/11/18 20:43 GENERAL: Well developed, well nourished. Awake and alert. No acute distress. HEENT: Normocephalic, atraumatic. PERRLA, EOMI. No conjunctival pallor. Sclera are non- icteric. Moist mucous membranes. Oropharynx is clear. NECK: Supple. Full ROM. No JVD. Carotid pulses 2+ and symmetric, without bruits. No thyromegaly. No lymphadenopathy. CARDIOVASCULAR: Regular rate and rhythm. No murmurs, rubs, or gallops. Distal pulses are 2+ and symmetric. PULMONARY: No evidence of respiratory distress. Lungs clear to auscultation bilaterally. No wheezing, rales or rhonchi. ABDOMINAL: Soft. Non-tender. Non-distended. No rebound or guarding. No organomegaly. Normoactive bowel sounds. MUSCULOSKELETAL Normal range of motion at all joints. No bony deformities or tenderness. No CVA tenderness. EXTREMITIES: (+)Very swollen and tender right upper extremity from the shoulder to the fingers. Most of the swelling is localized to the upper arm and mid forearm. No cyanosis. No clubbing. No calf tenderness. SKIN: Warm and dry. Normal capillary refill. No rashes. No jaundice. NEUROLOGICAL: Alert, awake, appropriate. Cranial nerves 2-12 intact. PSYCHIATRIC: Cooperative. Good eye contact. Appropriate mood and affect. - Medical Decision Making 06/11/18 23:25 Right Arm Duplex was reviewed by Dr. Lux and over-read by Radiology. Impression: There is no sonographic evidence of DVT involving the right arm. Soft tissue edema is noted. Right upper extremity arterial Doppler ultrasound Clinical information given: rue swelling The exam was performed utilizing grayscale as well as Doppler sonography. Monophasic waveforms suggestive of diminished flow are noted along the right subclavian, axillary, brachial, radial and ulnar arteries. Soft tissue edema is seen. Impression: Apparent diminished arterial flow is seen along the length of the right arm as discussed above. <Mary Azevedo - Last Filed: 06/11/18 23:26> Attestations - Attestations 06/11/18 20:45 Documentation prepared by Mary Azevedo, acting as medical sales specialist for Valetne Lux DO. <Mary Azevedo - Last Filed: 06/11/18 23:26>
[2018-06-11] MEDS ORDERED: morphine SULFATE 4 MG/ML VIAL ONE (21:02)
[2018-06-11] MEDS ORDERED: ONDANSETRON 4 MG/2 ML VIAL ONE (21:02)
[2018-06-11] MEDS ORDERED: MORPHINE SULFATE 2 MG/ML VIAL ONE (21:02)
[2018-06-11 23:54] LABS: ALBUMIN 3.7 g/dl (3.4-5.0); ALK PHOS 144 U/L (45-117); ANION GAP 7 (8-16); BILIRUBIN,TOTAL 0.2 mg/dL (0.2-1.0); BLOOD UREA NITROGEN 15 mg/dL (7-18); CALCIUM 7.4 mg/dL (8.5-10.1); CHLORIDE 103 mmol/L (98-107); CO2 31 mmol/L (21-32); CREATININE 6.3 mg/dL (0.7-1.3); GLUCOSE,RANDOM 76 mg/dL (74-106); POTASSIUM 4.7 mmol/L (3.5-5.1); SGOT/AST 14 U/L (15-37); SGPT/ALT 10 U/L (12-78); SODIUM 141 mmol/L (136-145); TOT PROT 7.7 g/dl (6.4-8.2)
--- NOTE | 2018-06-12 01:05 | HP ---
CHIEF COMPLAINT:R arm swelling PCP: HISTORY OF PRESENT ILLNESS: 58 yo M w PMhx asthma, HTN, on dialysis is here with R arm pain and swelling. He had a fistula created on his RUE [address] shaver but it did not work and his arm has been swelling ever since, also it has not yet matured (< 6mo). Recently however, he states that the swelling has gotten worse and now he is in immense pain. He receive dialysis through a port on his left chest and got dialyzed today. He has pain with any motion of the hand and says he feels some tingling in the hand. Denies any fevers, infections, rashes, chest pain or shortness of breath. Denies any fever, chills, nausea, vomiting, diarrhea, or abdominal pain. ER course was notable for: (1)zofran, morphine, RUE doppler U/S (2) (3) Recent Travel: PAST MEDICAL HISTORY: PAST SURGICAL HISTORY: Social History: Smoking: Alcohol: Drugs: Family History: Allergies No Known Allergies Allergy (Verified 06/11/18 19:43) HOME MEDICATIONS: Home Medications Medication Instructions Recorded Amlodipine Besylate [Norvasc -] 10 mg PO DAILY #30 tablet 03/27/17 Isosorbide Mononitrate [Imdur -] 30 mg PO DAILY #30 tab 06/01/17 Lisinopril 20 mg PO DAILY 02/09/18 Metoprolol Tartrate [Lopressor -] 25 mg PO BID 02/09/18 REVIEW OF SYSTEMS Reviewed in HPI PHYSICAL EXAMINATION Vital Signs - 24 hr 06/11/18 19:40 Temperature 98.4 F Pulse Rate 99 H Respiratory 18 Rate Blood Pressure 161/122 O2 Sat by Pulse 100 Oximetry (%) GENERAL: Awake, alert, and fully oriented, in no acute distress. HEAD: Normal with no signs of trauma. EYES: PERRLA, extraocular movements intact, sclera anicteric, conjunctival injection. No lid lag. EARS, NOSE, THROAT: oropharynx clear without exudates. Moist mucous membranes. NECK: Normal range of motion, supple without lymphadenopathy, JVD, or masses. LUNGS: Breath sounds equal, clear to auscultation bilaterally. No wheezes, and no crackles. No accessory muscle use. HEART: Regular rate and rhythm, normal S1 and S2 without murmur, rub or gallop. ABDOMEN: Soft, nontender, not distended, normoactive bowel sounds, no guarding, no rebound, no masses. No hepatomegaly or splenomegaly. MUSCULOSKELETAL: Normal range of motion at all joints. No bony deformities or tenderness. No CVA tenderness. UPPER EXTREMITIES: 2+ pulses, warm, well-perfused. No cyanosis. No clubbing. R extremity swelling throughout the limb. R arm AV fistula, thrill palpated. R hand cooler to touch. Strength intact b/l although R is limited due to swelling. RUE is TTP LOWER EXTREMITIES: 2+ pulses, warm, well-perfused. No calf tenderness. No peripheral edema. NEUROLOGICAL: Cranial nerves II-XII intact. Normal speech. PSYCHIATRIC: Cooperative. Good eye contact. Appropriate mood and affect. SKIN: Warm, dry, normal turgor, no rashes or lesions noted, normal capillary refill. Laboratory Results - last 24 hr 06/11/18 06/11/18 06/11/18 19:50 19:50 23:11 WBC 5.6 RBC 4.32 Hgb 12.2 Hct 37.0 MCV 85.7 MCH 28.3 MCHC 33.1 RDW 17.3 H Plt Count 307 D MPV 7.4 L Absolute Neuts (auto) 2.7 Neutrophils % 47.7 Lymphocytes % 28.8 D Monocytes % 10.4 H Eosinophils % 11.0 H Basophils % 2.1 H Nucleated RBC % 0 Sodium Cancelled 141 Potassium Cancelled 4.7 Chloride Cancelled 103 Carbon Dioxide Cancelled 31 Anion Gap Cancelled 7 L BUN Cancelled 15 D Creatinine Cancelled 6.3 H Creat Clearance w eGFR Cancelled 9.24 Random Glucose Cancelled 76 Calcium Cancelled 7.4 L Total Bilirubin Cancelled 0.2 AST Cancelled 14 L D ALT Cancelled 10 L Alkaline Phosphatase Cancelled 144 H Total Protein Cancelled 7.7 Albumin Cancelled 3.7 RUE U/S - no sonographic evidence of DVT involving the right arm. Apparent diminished arterial flow is seen along the length of the right arm ASSESSMENT/PLAN: 58 yo M w PMhx asthma, HTN, on dialysis is here with R arm pain and swelling. RUE lymphedema 2/2 to faulty AV fistula - RUE U/S showed no evidence of DVT -vascular consult ESRD - last dialysis tx was Thursday 7/12 renal consult HTN -c/w home meds #FEN -no IV fluids -replete electrolytes as needed -low sodium diet #DVT ppx -SQH 5000U tid #[facility] type - Emergency Visit Emergency Visit: Yes ED Registration Date: 06/11/18 Care time: The patient presented to the Emergency Department on the above date and was hospitalized for further evaluation of their emergent condition. - New Patient This patient is new to me today: Yes Date on this admission: 06/12/18 - Critical Care Critical Care patient: No Hospitalist Screening - Colonoscopy Questionnaire Colonoscopy Questionnaire: Colonoscopy Questionnaire - Patient: 50 - 75 years old and never had a screening colonoscopy: Unknown History of colon or rectal polyps, or CA: Unknown History of IBD, Crohn's disease or UC: Unknown History of abdominal radiation therapy as a child: Unknown - Relative: 1 with colon or rectal CA, or polyps at age 60 or younger: Unknown Colon or rectal CA diagnosed at age 45 or younger: Unknown Multiple relatives with colon or rectal CA: Unknown - Outcome: Screening Result: Negative Screen
[2018-06-12 01:52] VITALS: BMI 25.4
[2018-06-12] MEDS ORDERED: ACETAMINOPHEN 325 MG TABLET (FP) PO PRN (02:31)
[2018-06-12] MEDS: HEPARIN NA (PORCINE) 5,000 UNITS/ML 1ML VIAL SQ SCH ×3 (06:51→21:14)
--- NOTE | 2018-06-12 06:56 | PN ---
Teaching Attending Note Name of Resident: Hira Segovia ATTENDING PHYSICIAN STATEMENT I saw and evaluated the patient. I reviewed the resident's note and discussed the case with the resident. I agree with the resident's findings and plan as documented. SUBJECTIVE: Patient referred by manager labor delivery after complaining of worsening right arm swelling after Av graft placed 4 months ago. Presented to ED because of pain in right hand. OBJECTIVE: Right hand edematous at wrist and hand and swollen to arm. Palpable thrill . Left permacath. CBCD WBC 5.6 K/mm3 (4.0-10.0) 06/11/18 19:50 RBC 4.32 M/mm3 (4.00-5.60) 06/11/18 19:50 Hgb 12.2 GM/dL (11.7-16.9) 06/11/18 19:50 Hct 37.0 % (35.4-49) 06/11/18 19:50 MCV 85.7 fl (80-96) 06/11/18 19:50 MCHC 33.1 g/dl (32.0-35.9) 06/11/18 19:50 RDW 17.3 % (11.9-15.9) H 06/11/18 19:50 Plt Count 307 K/MM3 (134-434) D 06/11/18 19:50 MPV 7.4 fl (7.5-11.1) L 06/11/18 19:50 CMP Sodium 141 mmol/L (136-145) 06/11/18 23:11 Potassium 4.7 mmol/L (3.5-5.1) 06/11/18 23:11 Chloride 103 mmol/L (98-107) 06/11/18 23:11 Carbon Dioxide 31 mmol/L (21-32) 06/11/18 23:11 Anion Gap 7 (8-16) L 06/11/18 23:11 BUN 15 mg/dL (7-18) D 06/11/18 23:11 Creatinine 6.3 mg/dL (0.7-1.3) H 06/11/18 23:11 Creat Clearance w eGFR 9.24 (>60) 06/11/18 23:11 Calcium 7.4 mg/dL (8.5-10.1) L 06/11/18 23:11 Total Bilirubin 0.2 mg/dL (0.2-1.0) 06/11/18 23:11 AST 14 U/L (15-37) L D 06/11/18 23:11 ALT 10 U/L (12-78) L 06/11/18 23:11 Alkaline Phosphatase 144 U/L (45-117) H 06/11/18 23:11 Total Protein 7.7 g/dl (6.4-8.2) 06/11/18 23:11 Albumin 3.7 g/dl (3.4-5.0) 06/11/18 23:11 ASSESSMENT AND PLAN: Right arm swelling possible AV graft comlication, vascular surgery consult. morphine 2mg q6h prn for pain. Nephrology consult for HD (TTHS)
[2018-06-12] MEDS: METOPROLOL TARTRATE 25 MG TABLET (FP) PO SCH ×2 (10:14→21:14)
[2018-06-12] MEDS: LISINOPRIL 20 MG TABLET (FP) PO SCH (10:14)
[2018-06-12] MEDS: amLODIPine BESYLATE 10 MG TABLET (FP) PO SCH (10:14)
[2018-06-12] MEDS: ISOSORBIDE MONONITRATE 30 MG TAB.SR.24H (FP) PO SCH (10:14)
[2018-06-12 12:30] LABS: BASO % 0.3 % (0-2.0); EOS % 12.5 % (0-4.5); HEMATOCRIT 37.1 % (35.4-49); LYMPH % 30.4 % (8-40); MCHC 32.4 g/dl (32.0-35.9); MEAN CELL VOLUME 86.5 fl (80-96); MEAN PLT VOLUME 7.3 fl (7.5-11.1); MONO % 8.6 % (3.8-10.2); NEUT % 48.2 % (42.8-82.8); PLATELET COUNT 288 K/MM3 (134-434); RBC 4.29 M/mm3 (4.00-5.60); RDW 16.7 % (11.9-15.9)
[2018-06-12 12:53] LABS: ALBUMIN 3.6 g/dl (3.4-5.0); ALK PHOS 151 U/L (45-117); ANION GAP 9 (8-16); BILIRUBIN,TOTAL 0.3 mg/dL (0.2-1.0); BLOOD UREA NITROGEN 18 mg/dL (7-18); CALCIUM 7.4 mg/dL (8.5-10.1); CHLORIDE 101 mmol/L (98-107); CO2 28 mmol/L (21-32); GLUCOSE,RANDOM 100 mg/dL (74-106); SGOT/AST 10 U/L (15-37); SGPT/ALT 11 U/L (12-78); SODIUM 138 mmol/L (136-145); TOT PROT 7.6 g/dl (6.4-8.2)
[2018-06-12 12:55] LABS: CREATININE 7.8 mg/dL (0.7-1.3)
--- NOTE | 2018-06-12 17:00 | PN ---
Physical Exam: SUBJECTIVE: Patient is a 58 y/o male who has a PMHX of asthma, hTN, DM, ESRD (dialysis yesterday) who presents with right arm pain and swelling. Patient has poor compliance outpatient. He had no acute events overnight. His surgery was done by Dr. Lincoln who is out of town, Dr. Forrester was consulted for the AV fistula in his R arm. OBJECTIVE: Vital Signs Period Temp Pulse Resp BP Sys/Beyer Pulse Ox Last 24 Hr 97.7 F-98.4 F 68-99 18-20 132-161/79-122 99-100 GENERAL: Awake, alert, and fully oriented, in no acute distress. EYES: PERRLA, extraocular movements intact EARS, NOSE, THROAT: oropharynx clear without exudates. Moist mucous membranes. NECK: Normal range of motion, supple without lymphadenopathy LUNGS: Breath sounds equal, clear to auscultation bilaterally. HEART: Regular rate and rhythm, normal S1 and S2 ABDOMEN: Soft, nontender, not distended, normoactive bowel sounds, no guarding, no rebound, no masses MUSCULOSKELETAL: Normal range of motion at all joints. UPPER EXTREMITIES: R extremity swelling throughout the limb. R arm AV fistula, thrill palpated. 3+ pitting edema, bruit heard over fistula, 5/5 muscle strength , sensation intact NEUROLOGICAL: Cranial nerves II-XII intact. Laboratory Results - last 24 hr 06/11/18 06/11/18 06/11/18 19:50 19:50 23:11 WBC 5.6 RBC 4.32 Hgb 12.2 Hct 37.0 MCV 85.7 MCH 28.3 MCHC 33.1 RDW 17.3 H Plt Count 307 D MPV 7.4 L Absolute Neuts (auto) 2.7 Neutrophils % 47.7 Lymphocytes % 28.8 D Monocytes % 10.4 H Eosinophils % 11.0 H Basophils % 2.1 H Nucleated RBC % 0 Sodium Cancelled 141 Potassium Cancelled 4.7 Chloride Cancelled 103 Carbon Dioxide Cancelled 31 Anion Gap Cancelled 7 L BUN Cancelled 15 D Creatinine Cancelled 6.3 H Creat Clearance w eGFR Cancelled 9.24 Random Glucose Cancelled 76 Calcium Cancelled 7.4 L Total Bilirubin Cancelled 0.2 AST Cancelled 14 L D ALT Cancelled 10 L Alkaline Phosphatase Cancelled 144 H Total Protein Cancelled 7.7 Albumin Cancelled 3.7 07/13/18 07/13/18 12:08 12:08 WBC 6.0 RBC 4.29 Hgb 12.0 Hct 37.1 MCV 86.5 MCH 28.0 MCHC 32.4 RDW 16.7 H Plt Count 288 MPV 7.3 L Absolute Neuts (auto) 2.9 Neutrophils % 48.2 Lymphocytes % 30.4 Monocytes % 8.6 Eosinophils % 12.5 H Basophils % 0.3 Nucleated RBC % 0 Sodium 138 Potassium 5.0 Chloride 101 Carbon Dioxide 28 Anion Gap 9 BUN 18 Creatinine 7.8 H* Creat Clearance w eGFR 7.22 Random Glucose 100 D Calcium 7.4 L Total Bilirubin 0.3 AST 10 L D ALT 11 L Alkaline Phosphatase 151 H Total Protein 7.6 Albumin 3.6 Active Medications Generic Name Dose Route Start Last Admin Trade Name Freq PRN Reason Stop Dose Admin Acetaminophen 650 mg 06/12/18 02:31 Tylenol - PO Q4H PRN PAIN LEVEL 1-5 Amlodipine Besylate 10 mg 06/12/18 10:00 06/12/18 10:14 Norvasc - PO 10 mg DAILY [facility]TER Administration Heparin Sodium (Porcine) 5,000 unit 06/12/18 06:00 06/12/18 14:45 Heparin - SQ 5,000 unit TID [facility]TER Administration Isosorbide Mononitrate 30 mg 06/12/18 10:00 06/12/18 10:14 Imdur - PO 30 mg DAILY [facility]TER Administration Lisinopril 20 mg 06/12/18 10:00 06/12/18 10:14 Prinivil PO 20 mg DAILY [facility]TER Administration Metoprolol Tartrate 25 mg 06/12/18 10:00 06/12/18 10:14 Lopressor - PO 25 mg BID [facility]TER Administration ASSESSMENT/PLAN: Patient is a 58 y/o male who has a PMHX of asthma, hTN, DM, ESRD (dialysis yesterday) who presents with right arm pain and swelling. #R arm swelling -Consulted Dr. Forrester who is covering for Dr. Lincoln who did the surgery for the fistula - Acetaminophen for pain - fistula thrill palpable and bruit held - keep arm elevated #CKD - Dialysis needed friday, most recent Cr- 7.8 - consulted Dr. Ramos - Terellacat[facility]y okay to use for dialysis #HTN -continue metoprolol, lisinopril, amlodipine #DVT ppx - heparin SQ Visit type - Emergency Visit Emergency Visit: No - New Patient This patient is new to me today: Yes Date on this admission: 06/12/18 - Critical Care Critical Care patient: No
[2018-06-12] MEDS ORDERED: SODIUM CHLORIDE 250 ML IV PRN (17:05)
--- NOTE | 2018-06-12 17:12 | CONSULT ---
Consult Consult Specialty:: Nephrology Reason for Consultation:: ESRD - History of Present Illness Chief Complaint: right arm swelling History of Present Illness: Pt is a 58 year old male with pmhx of ESRD, HTN, and anemia who I sent in for worsening right arm swelling. He has had multiple hospitalization for this. The swelling has not gotten better and he has pain in his right arm. He denies shortness of breath. He was last dialyzed yesterday. - History Source History Provided By: Patient - Past Medical History Cardio/Vascular: Yes: HTN Gastrointestinal: Yes: GERD Renal/: Yes: Renal Failure, Hemodialysis - Past Surgical History Past Surgical History: Yes: AV Fistula/Graft - Alcohol/Substance Use Hx Alcohol Use: No - Smoking History Smoking history: Former smoker Have you smoked in the past 12 months: No If you are a former smoker, when did you quit?: 7 YRS AGO Home Medications - Allergies Allergies/Adverse Reactions: Allergies Allergy/AdvReac Type Severity Reaction Status Date / Time No Known Allergies Allergy Verified 06/11/18 19:43 - Home Medications Home Medications: Ambulatory Orders Amlodipine Besylate [Norvasc -] 10 mg PO DAILY #30 tablet 03/27/17 Isosorbide Mononitrate [Imdur -] 30 mg PO DAILY #30 tab 06/01/17 Lisinopril 20 mg PO DAILY 02/09/18 Metoprolol Tartrate [Lopressor -] 25 mg PO BID 02/09/18 Family Disease History - Family Disease History Family History: Denies Review of Systems - Review of Systems Constitutional: reports: No Symptoms Eyes: reports: No Symptoms HENT: reports: No Symptoms Neck: reports: No Symptoms Cardiovascular: reports: No Symptoms Respiratory: reports: No Symptoms Gastrointestinal: reports: No Symptoms Genitourinary: reports: No Symptoms Musculoskeletal: reports: Other (right arm swelling) Endocrine: reports: No Symptoms Hematology/Lymphatic: reports: No Symptoms Psychiatric: reports: No Symptoms Physical Exam Vital Signs: Vital Signs Temperature 98.0 F 06/12/18 14:11 Pulse Rate 79 06/12/18 14:11 Respiratory Rate 18 06/12/18 09:06 Blood Pressure 132/79 06/12/18 14:11 O2 Sat by Pulse Oximetry (%) 99 06/12/18 01:56 Constitutional: Yes: Calm Eyes: Yes: Conjunctiva Clear HENT: Yes: Atraumatic Neck: Yes: Supple Cardiovascular: Yes: S1, S2 Respiratory: Yes: CTA Bilaterally Gastrointestinal: Yes: Normal Bowel Sounds, Soft Renal/: Yes: WNL Extremities: Yes: Other (right arm swelling) Neurological: Yes: Oriented Labs: CBC, BMP 06/12/18 12:08 06/12/18 12:08 Assessment/Plan Current Medications Generic Name Dose Route Start Last Admin Trade Name Freq PRN Reason Stop Dose Admin Acetaminophen 650 mg 06/12/18 02:31 Tylenol - PO Q4H PRN PAIN LEVEL 1-5 Amlodipine Besylate 10 mg 06/12/18 10:00 06/12/18 10:14 Norvasc - PO 10 mg DAILY WALTER Administration Heparin Sodium (Porcine) 5,000 unit 06/12/18 06:00 06/12/18 14:45 Heparin - SQ 5,000 unit TID WALTER Administration Sodium Chloride 250 mls @ 3,000 mls/hr 06/12/18 17:05 Normal Saline - IV 06/13/18 17:05 PRN PRN Hypotension during Dialysis Isosorbide Mononitrate 30 mg 06/12/18 10:00 06/12/18 10:14 Imdur - PO 30 mg DAILY [facility]TER Administration Lisinopril 20 mg 06/12/18 10:00 06/12/18 10:14 Prinivil PO 20 mg DAILY [facility]TER Administration Metoprolol Tartrate 25 mg 06/12/18 10:00 06/12/18 10:14 Lopressor - PO 25 mg BID [facility]TER Administration Impression 1. ESRD 2. HTN 3. HD access malfunction 4. anemia 5. right arm swelling 6. non compliance Plan - vascular evaluation for intervention - resume home meds - bp is controlled - HD in am, orders written
--- NOTE | 2018-06-12 19:45 | PN ---
Teaching Attending Note Name of Resident: Ines Cuba ATTENDING PHYSICIAN STATEMENT I saw and evaluated the patient. I reviewed the resident's note and discussed the case with the resident. I agree with the resident's findings and plan as documented. SUBJECTIVE: No fever or chills . pain in R arm OBJECTIVE: NAD. CV; RRR Lungs: CTAB Ext: no edema on LE. RUE with 3 + pitting edema including hand, forearm and upper arm .RP 2+ . warm skin ASSESSMENT AND PLAN: 58 y/o man with h/o ESRD on Hd, asthma, GERD and hypertension who presented with worsening RUE edema and pain 1- RUE edema . no DVT on venous doppler but arterial flow is diminished - vascular consult placed and messages were left with service 2- ESRD: HD tomorrow 3- HTN: cont meds dispo : HLOC
[2018-06-13] MEDS: HEPARIN NA (PORCINE) 5,000 UNITS/ML 1ML VIAL SQ SCH ×3 (05:44→21:50)
--- NOTE | 2018-06-13 08:54 | PN ---
Physical Exam: SUBJECTIVE: Patient seen and examined at bedside. Currently states that the dorsum of his R hand is slightly more painful than it was yesterday. Otherwise denies any complaints. OBJECTIVE: Vital Signs Period Temp Pulse Resp BP Sys/Beyer Pulse Ox Last 24 Hr 98 F-98.4 F 65-79 18-21 124-139/66-82 96-96 GENERAL: A&Ox3, no acute distress EYES: PERRLA, EOMI ENT: Moist mucus membranes NECK: No JVD LUNGS: CTA, no wheezes HEART: systolic murmur noted in the 2nd R intercostal space, otherwise RRR, There is a L sided chest wall permacath placed without any surrounding edema or erythema ABDOMEN: Soft, nontender, BS present MUSCULOSKELETAL: No CVA Tenderness EXTREMITIES: 2+ pulses, RUE has 3+ edema and mild tenderness to palpation of the dorsum of the hand, bruit heard over fistula site and thrill is palpated. NEUROLOGICAL: Cranial nerves II-XII intact. Laboratory Results - last 24 hr 06/12/18 06/12/18 12:08 12:08 WBC 6.0 RBC 4.29 Hgb 12.0 Hct 37.1 MCV 86.5 MCH 28.0 MCHC 32.4 RDW 16.7 H Plt Count 288 MPV 7.3 L Absolute Neuts (auto) 2.9 Neutrophils % 48.2 Lymphocytes % 30.4 Monocytes % 8.6 Eosinophils % 12.5 H Basophils % 0.3 Nucleated RBC % 0 Sodium 138 Potassium 5.0 Chloride 101 Carbon Dioxide 28 Anion Gap 9 BUN 18 Creatinine 7.8 H* Creat Clearance w eGFR 7.22 Random Glucose 100 D Calcium 7.4 L Total Bilirubin 0.3 AST 10 L D ALT 11 L Alkaline Phosphatase 151 H Total Protein 7.6 Albumin 3.6 Active Medications Generic Name Dose Route Start Last Admin Trade Name Freq PRN Reason Stop Dose Admin Acetaminophen 650 mg 06/12/18 02:31 Tylenol - PO Q4H PRN PAIN LEVEL 1-5 Amlodipine Besylate 10 mg 06/12/18 10:00 06/12/18 10:14 Norvasc - PO 10 mg DAILY [facility] Administration Heparin Sodium (Porcine) 5,000 unit 06/12/18 06:00 06/13/18 05:44 Heparin - SQ 5,000 unit TID [facility]TER Administration Sodium Chloride 250 mls @ 3,000 mls/hr 06/12/18 17:05 Normal Saline - IV 06/13/18 17:05 PRN PRN Hypotension during Dialysis Isosorbide Mononitrate 30 mg 06/12/18 10:00 06/12/18 10:14 Imdur - PO 30 mg DAILY [facility] Administration Lisinopril 20 mg 06/12/18 10:00 06/12/18 10:14 Prinivil PO 20 mg DAILY [facility] Administration Metoprolol Tartrate 25 mg 06/12/18 10:00 06/12/18 21:14 Lopressor - PO 25 mg BID [facility]TER Administration ASSESSMENT/PLAN: Patient is a 58 y/o male who has a PMHX of asthma, HTN, DM, ESRD (Dialysis / Fri/Fri) who presents with right arm pain and swelling. #R arm swelling: - discussed with Dr. 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 Vein needs to be reopened and will likely be done in the next 2-3 days. - Acetaminophen for pain - keep arm elevated at the moment #CKD - Patient for dialysis today - consulted Dr. Ramos - Donna keller to use for dialysis #HTN -continue metoprolol, lisinopril, amlodipine #DVT ppx - heparin SQ #Disposition - continue to monitor on med surg Visit type - Emergency Visit Emergency Visit: No - New Patient This patient is new to me today: No - Critical Care Critical Care patient: No
[2018-06-13 11:51] LABS: EOS % 9.5 % (0-4.5); HEMATOCRIT 32.5 % (35.4-49); HEMOGLOBIN 10.5 GM/dL (11.7-16.9); LYMPH % 20.8 % (8-40); MCHC 32.2 g/dl (32.0-35.9); MEAN CELL VOLUME 86.9 fl (80-96); MEAN PLT VOLUME 7.5 fl (7.5-11.1); MONO % 8.1 % (3.8-10.2); NEUT % 60.6 % (42.8-82.8); PLATELET COUNT 243 K/MM3 (134-434); RBC 3.73 M/mm3 (4.00-5.60); RDW 17.3 % (11.9-15.9); WHITE BLOOD COUNT 6.4 K/mm3 (4.0-10.0)
[2018-06-13 12:06] LABS: ALBUMIN 3.2 g/dl (3.4-5.0); ALK PHOS 126 U/L (45-117); ANION GAP 8 (8-16); BILIRUBIN,TOTAL 0.3 mg/dL (0.2-1.0); BLOOD UREA NITROGEN 28 mg/dL (7-18); CHLORIDE 103 mmol/L (98-107); CO2 27 mmol/L (21-32); GLUCOSE,RANDOM 105 mg/dL (74-106); MAGNESIUM 2.1 mg/dL (1.8-2.4); PHOSPHOROUS 4.2 mg/dL (2.5-4.9); POTASSIUM 4.9 mmol/L (3.5-5.1); SGOT/AST 10 U/L (15-37); SGPT/ALT 8 U/L (12-78); SODIUM 138 mmol/L (136-145); TOT PROT 6.5 g/dl (6.4-8.2)
[2018-06-13 12:10] LABS: CALCIUM 6.9 mg/dL (8.5-10.1)
--- NOTE | 2018-06-13 12:19 | PN ---
Progress Note, Physician History of Present Illness: Pt seen and examined at bedside. He is awake and alert. He is getting HD. - Current Medication List Current Medications: Active Medications Acetaminophen (Tylenol -) 650 mg PO Q4H PRN PRN Reason: PAIN LEVEL 1-5 Amlodipine Besylate (Norvasc -) 10 mg PO DAILY [facility] Last Admin: 06/12/18 10:14 Dose: 10 mg Heparin Sodium (Porcine) (Heparin -) 5,000 unit SQ TID [facility] Last Admin: 06/13/18 05:44 Dose: 5,000 unit Sodium Chloride (Normal Saline -) 250 mls @ 3,000 mls/hr IV PRN PRN PRN Reason: Hypotension during Dialysis Stop: 06/13/18 17:05 Isosorbide Mononitrate (Imdur -) 30 mg PO DAILY [facility] Last Admin: 06/12/18 10:14 Dose: 30 mg Lisinopril (Prinivil) 20 mg PO DAILY [facility] Last Admin: 06/12/18 10:14 Dose: 20 mg Metoprolol Tartrate (Lopressor -) 25 mg PO BID [facility] Last Admin: 06/12/18 21:14 Dose: 25 mg - Objective Vital Signs: Vital Signs Temperature 98.2 F 06/13/18 08:10 Pulse Rate 65 06/13/18 11:20 Respiratory Rate 18 06/13/18 11:20 Blood Pressure 150/87 06/13/18 11:20 O2 Sat by Pulse Oximetry (%) 96 06/13/18 08:29 Constitutional: Yes: Calm Eyes: Yes: Conjunctiva Clear HENT: Yes: Atraumatic Neck: Yes: Supple Cardiovascular: Yes: S1, S2 Respiratory: Yes: CTA Bilaterally Gastrointestinal: Yes: Normal Bowel Sounds, Soft Genitourinary: Yes: WNL Musculoskeletal: Yes: WNL Edema: Yes Edema: RUE: 2+ Neurological: Yes: Oriented Psychiatric: Yes: Oriented Labs: CBC, BMP 06/13/18 11:00 06/13/18 11:00 Assessment/Plan Current Medications Generic Name Dose Route Start Last Admin Trade Name Freq PRN Reason Stop Dose Admin Acetaminophen 650 mg 06/12/18 02:31 Tylenol - PO Q4H PRN PAIN LEVEL 1-5 Amlodipine Besylate 10 mg 06/12/18 10:00 06/12/18 10:14 Norvasc - PO 10 mg DAILY [facility]TER Administration Heparin Sodium (Porcine) 5,000 unit 06/12/18 06:00 06/13/18 05:44 Heparin - SQ 5,000 unit TID [facility]ALTER Administration Sodium Chloride 250 mls @ 3,000 mls/hr 06/12/18 17:05 Normal Saline - IV 06/13/18 17:05 PRN PRN Hypotension during Dialysis Isosorbide Mononitrate 30 mg 06/12/18 10:00 06/12/18 10:14 Imdur - PO 30 mg DAILY [facility]TER Administration Lisinopril 20 mg 06/12/18 10:00 06/12/18 10:14 Prinivil PO 20 mg DAILY [facility]TER Administration Metoprolol Tartrate 25 mg 06/12/18 10:00 06/12/18 21:14 Lopressor - PO 25 mg BID [facility]TER Administration Impression 1. ESRD 2. HTN 3. HD access malfunction 4. anemia 5. right arm swelling 6. non compliance Plan - HD today - vascular for angiogram and intervention - monitor bp - discussed plan with pt - he is currently getting HD - next HD on Friday
--- NOTE | 2018-06-13 12:21 | PN ---
Teaching Attending Note Name of Resident: Moi Rincon ATTENDING PHYSICIAN STATEMENT I saw and evaluated the patient. I reviewed the resident's note and discussed the case with the resident. I agree with the resident's findings and plan as documented. SUBJECTIVE: No fever or chills. No abd pain , no SOB , no diarrhea. has discomfort inhis hand from swelling . OBJECTIVE: NAD. CV; RRR Lungs: CTAB Ext: no edema on LE. RUE with 3 + pitting edema including hand, forearm up to mid upper arm .RP 2+ bilaterally. warm skin ASSESSMENT AND PLAN: 58 y/o man with h/o ESRD on HD, asthma, GERD and hypertension who presented with worsening RUE edema and pain 1- RUE edema. no DVT on venous doppler but arterial flow is diminished case was d/w vascular by resident. will need procedure for a central vein thrombus on Friday or Friday 2- ESRD: HD today . labs reviewed. 3- HTN: cont meds
[2018-06-13] MEDS ORDERED: PARICALCITOL 5 MCG/ML VIAL IVPUSH ONE (12:45)
[2018-06-13] MEDS ORDERED: CALCIUM GLUCONATE 10% - 1,000 MG/10 ML VIAL IVPB ONE (12:45)
--- NOTE | 2018-06-13 13:18 | CONSULT ---
Consult - History of Present Illness History of Present Illness: 58 year old man with ESRD on HD since March. He has a left sided Permacath and a right AV fistula which was created on 02/12/18. Patient states his right arm has been swollen ever since. A venogram in March documented proximal occlusion of the cephalic vein as well as occlusion of the right subclavian vein. Operative note states the veins were reopened with angioplasty but the x-ray images do not document this. His arm swelling did not improve. - Past Medical History Cardio/Vascular: Yes: HTN Gastrointestinal: Yes: GERD Renal/: Yes: Renal Failure, Hemodialysis - Past Surgical History Past Surgical History: Yes: AV Fistula/Graft - Alcohol/Substance Use Hx Alcohol Use: No - Smoking History Smoking history: Former smoker Have you smoked in the past 12 months: No If you are a former smoker, when did you quit?: 7 YRS AGO Home Medications - Allergies Allergies/Adverse Reactions: Allergies Allergy/AdvReac Type Severity Reaction Status Date / Time No Known Allergies Allergy Verified 06/11/18 19:43 - Home Medications Home Medications: Ambulatory Orders Amlodipine Besylate [Norvasc -] 10 mg PO DAILY #30 tablet 03/27/17 Isosorbide Mononitrate [Imdur -] 30 mg PO DAILY #30 tab 06/01/17 Lisinopril 20 mg PO DAILY 02/09/18 Metoprolol Tartrate [Lopressor -] 25 mg PO BID 02/09/18 Physical Exam Vital Signs: Vital Signs Temperature 98.2 F 06/13/18 08:10 Pulse Rate 61 06/13/18 12:20 Respiratory Rate 18 06/13/18 12:20 Blood Pressure 151/97 06/13/18 12:20 O2 Sat by Pulse Oximetry (%) 96 06/13/18 08:29 Edema: Yes Edema: RUE: 4+ (Brawny edema of upper and lower arm. ) Labs: CBC, BMP 06/13/18 11:00 06/13/18 11:00 Problem List - Problems (1) Venous hypertension of upper extremity Assessment/Plan: Right arm swelling is due to central vein occlusion with functioning AV fistula resulting in severe venous hypertension and swelling. Treatment options include: Revascularization of occluded right subclavian and innominate veins with stent placement to reduce pressure gradient. Placement of HeRO device to cross the occlusion and provide in-line flow from fistula to heart. If the occluded venous segment cannot be crossed then the fistula will need to be ligated and new access placed elsewhere. Code(s): I87.8 - OTHER SPECIFIED DISORDERS OF VEINS (2) ESRD (end stage renal disease) Code(s): N18.6 - END STAGE RENAL DISEASE
[2018-06-13] MEDS: LISINOPRIL 20 MG TABLET (FP) PO SCH (15:24)
[2018-06-13] MEDS: amLODIPine BESYLATE 10 MG TABLET (FP) PO SCH (15:24)
[2018-06-13] MEDS: CALCIUM 500MG/VIT-D 200 UNITS COMBO TABLET (FP) PO SCH ×2 (15:25→21:50)
[2018-06-13] MEDS: ISOSORBIDE MONONITRATE 30 MG TAB.SR.24H (FP) PO SCH (15:25)
[2018-06-13] MEDS: METOPROLOL TARTRATE 25 MG TABLET (FP) PO SCH ×2 (15:25→21:50)
[2018-06-13 16:08] LABS: CREATININE 3.5 mg/dL (0.7-1.3)
[2018-06-13 17:10] LABS: INR 1.06 (0.82-1.09)
[2018-06-13 17:12] LABS: ACTIVATED PTT 36.1 SECONDS (25.2-36.5)
[2018-06-14] MEDS: HEPARIN NA (PORCINE) 5,000 UNITS/ML 1ML VIAL SQ SCH ×3 (05:31→21:58)
[2018-06-14 09:09] LABS: ALBUMIN 3.4 g/dl (3.4-5.0); ANION GAP 7 (8-16); BLOOD UREA NITROGEN 20 mg/dL (7-18); CHLORIDE 99 mmol/L (98-107); CO2 32 mmol/L (21-32); GLUCOSE,RANDOM 93 mg/dL (74-106); POTASSIUM 4.5 mmol/L (3.5-5.1); SODIUM 138 mmol/L (136-145)
[2018-06-14 09:12] LABS: ALK PHOS 130 U/L (45-117); BILIRUBIN,TOTAL 0.4 mg/dL (0.2-1.0); CREATININE 7.1 mg/dL (0.7-1.3); PHOSPHOROUS 3.7 mg/dL (2.5-4.9); SGOT/AST 11 U/L (15-37); SGPT/ALT 9 U/L (12-78)
[2018-06-14] MEDS: CALCIUM 500MG/VIT-D 200 UNITS COMBO TABLET (FP) PO SCH ×2 (09:15→21:58)
[2018-06-14] MEDS: amLODIPine BESYLATE 10 MG TABLET (FP) PO SCH (09:15)
[2018-06-14] MEDS: METOPROLOL TARTRATE 25 MG TABLET (FP) PO SCH ×2 (09:15→21:57)
[2018-06-14] MEDS: ISOSORBIDE MONONITRATE 30 MG TAB.SR.24H (FP) PO SCH (09:16)
[2018-06-14] MEDS: LISINOPRIL 20 MG TABLET (FP) PO SCH (09:16)
--- NOTE | 2018-06-14 14:01 | PN ---
Progress Note, Physician History of Present Illness: Pt seen and examined. Arm still swollen. - Current Medication List Current Medications: Active Medications Acetaminophen (Tylenol -) 650 mg PO Q4H PRN PRN Reason: PAIN LEVEL 1-5 Amlodipine Besylate (Norvasc -) 10 mg PO DAILY [facility] Last Admin: 06/14/18 09:15 Dose: 10 mg Calcium Carbonate/Cholecalciferol (Os-Justin 500+D -) 2 tab PO BID [facility] Last Admin: 06/14/18 09:15 Dose: 2 tab Heparin Sodium (Porcine) (Heparin -) 5,000 unit SQ TID [facility] Last Admin: 06/14/18 13:04 Dose: 5,000 unit Isosorbide Mononitrate (Imdur -) 30 mg PO DAILY [facility] Last Admin: 06/14/18 09:16 Dose: 30 mg Lisinopril (Prinivil) 20 mg PO DAILY [facility] Last Admin: 06/14/18 09:16 Dose: 20 mg Metoprolol Tartrate (Lopressor -) 25 mg PO BID [facility] Last Admin: 06/14/18 09:15 Dose: 25 mg - Objective Vital Signs: Vital Signs Temperature 98.4 F 06/14/18 07:51 Pulse Rate 84 06/14/18 07:51 Respiratory Rate 18 06/14/18 07:51 Blood Pressure 150/90 06/14/18 07:51 O2 Sat by Pulse Oximetry (%) 97 06/14/18 08:36 Constitutional: Yes: Calm Eyes: Yes: Conjunctiva Clear HENT: Yes: Atraumatic Neck: Yes: Supple Cardiovascular: Yes: S1, S2 Respiratory: Yes: CTA Bilaterally Gastrointestinal: Yes: Normal Bowel Sounds, Soft Genitourinary: Yes: WNL Edema: Yes Edema: RUE: 2+ Neurological: Yes: Oriented Psychiatric: Yes: Oriented Labs: CBC, BMP 06/13/18 11:00 06/14/18 07:50 INR, PTT INR 1.06 (0.82-1.09) 06/13/18 16:30 Assessment/Plan Current Medications Generic Name Dose Route Start Last Admin Trade Name Freq PRN Reason Stop Dose Admin Acetaminophen 650 mg 06/12/18 02:31 Tylenol - PO Q4H PRN PAIN LEVEL 1-5 Amlodipine Besylate 10 mg 06/12/18 10:00 06/14/18 09:15 Norvasc - PO 10 mg DAILY [facility] Administration Calcium Carbonate/Cholecalciferol 2 tab 06/13/18 12:45 06/14/18 09:15 Os-Justin 500+D - PO 2 tab BID [facility] Administration Heparin Sodium (Porcine) 5,000 unit 06/12/18 06:00 06/14/18 13:04 Heparin - SQ 5,000 unit TID [facility] Administration Isosorbide Mononitrate 30 mg 06/12/18 10:00 06/14/18 09:16 Imdur - PO 30 mg DAILY [facility] Administration Lisinopril 20 mg 06/12/18 10:00 06/14/18 09:16 Prinivil PO 20 mg DAILY [facility] Administration Metoprolol Tartrate 25 mg 06/12/18 10:00 06/14/18 09:15 Lopressor - PO 25 mg BID [facility] Administration Impression 1. ESRD 2. HTN 3. HD access malfunction 4. anemia 5. right arm swelling 6. non compliance Plan - vascular for intervention - next HD Friday - increase metoprolol to 50 mg bid - discussed plan with pt
--- NOTE | 2018-06-14 17:24 | PN ---
Progress Note (short form) - Note Progress Note: Subjective: no fever or chills. R arm swelling and pain is better Objective: Vital Signs: Last Vital Signs Temp Pulse Resp BP Pulse Ox 98.3 F 84 20 133/87 97 06/14/18 14:30 06/14/18 07:51 06/14/18 14:30 06/14/18 14:30 06/14/18 08:36 Laboratory Results - last 24 hr 06/13/18 06/13/18 06/14/18 16:30 16:30 07:50 PT with INR 12.00 INR 1.06 PTT (Actin FS) 36.1 Sodium 138 Potassium 4.5 Chloride 99 Carbon Dioxide 32 Anion Gap 7 L BUN 20 H Creatinine 7.1 H Creat Clearance w eGFR 8.05 Random Glucose 93 Calcium 8.0 L Phosphorus 3.7 Total Bilirubin 0.4 AST 11 L ALT 9 L Alkaline Phosphatase 130 H Total Protein 7.0 Albumin 3.4 Blood Type B POSITIVE Antibody Screen Negative Physical Exam: NAD. CV; RRR Lungs: CTAB Ext: no edema on LE. RUE with 3 + pitting edema including hand, forearm up to mid upper arm. RP 2+ bilaterally. warm skin. ASSESSMENT AND PLAN: 58 y/o man with h/o ESRD on HD, asthma, GERD and hypertension who presented with worsening RUE edema and pain 1- RUE edema. central vein thrombosis for vascular procedure early this week 2- ESRD: HD per Schedule. 3- HTN: cont meds. lopressor increased HLOC Visit type - Emergency Visit Emergency Visit: Yes ED Registration Date: 06/11/18 Care time: The patient presented to the Emergency Department on the above date and was hospitalized for further evaluation of their emergent condition. - New Patient This patient is new to me today: No - Critical Care Critical Care patient: No
--- NOTE | 2018-06-15 06:16 | PN ---
Physical Exam: SUBJECTIVE: Patient is a 58 y/o male who has a PMHX of asthma, HTN, DM, ESRD on dialysis who presents with a central vein occlusion. Patient is scheduled for procedure with Dr. Forrester today. No acute events over night. Dialysis tomorrow. OBJECTIVE: Vital Signs Period Temp Pulse Resp BP Sys/Beyer Pulse Ox Last 24 Hr 97.8 F-98.4 F 75-84 18-20 133-150/85-90 97-98 GENERAL: Awake, alert, and fully oriented, in no acute distress. EYES: PERRLA, extraocular movements intact EARS, NOSE, THROAT: oropharynx clear without exudates. Moist mucous membranes. NECK: Normal range of motion, supple without lymphadenopathy LUNGS: Breath sounds equal, clear to auscultation bilaterally. HEART: Regular rate and rhythm, normal S1 and S2 ABDOMEN: Soft, nontender, not distended UPPER EXTREMITIES: R extremity swelling throughout the limb. R arm AV fistula, thrill palpated. 3+ pitting edema, bruit heard over fistula, 5/5 muscle strength , sensation intact Laboratory Results - last 24 hr 06/14/18 07:50 Sodium 138 Potassium 4.5 Chloride 99 Carbon Dioxide 32 Anion Gap 7 L BUN 20 H Creatinine 7.1 H Creat Clearance w eGFR 8.05 Random Glucose 93 Calcium 8.0 L Phosphorus 3.7 Total Bilirubin 0.4 AST 11 L ALT 9 L Alkaline Phosphatase 130 H Total Protein 7.0 Albumin 3.4 Active Medications Generic Name Dose Route Start Last Admin Trade Name Freq PRN Reason Stop Dose Admin Acetaminophen 650 mg 06/12/18 02:31 Tylenol - PO Q4H PRN PAIN LEVEL 1-5 Amlodipine Besylate 10 mg 06/12/18 10:00 06/14/18 09:15 Norvasc - PO 10 mg DAILY [facility] Administration Calcium Carbonate/Cholecalciferol 2 tab 06/13/18 12:45 06/14/18 21:58 Os-Justin 500+D - PO 2 tab BID [facility] Administration Heparin Sodium (Porcine) 5,000 unit 06/12/18 06:00 06/14/18 21:58 Heparin - SQ 5,000 unit TID [facility] Administration Isosorbide Mononitrate 30 mg 06/12/18 10:00 06/14/18 09:16 Imdur - PO 30 mg DAILY [facility] Administration Lisinopril 20 mg 06/12/18 10:00 06/14/18 09:16 Prinivil PO 20 mg DAILY [facility] Administration Metoprolol Tartrate 50 mg 06/14/18 22:00 06/14/18 21:57 Lopressor - PO 50 mg BID [facility] Administration ASSESSMENT/PLAN: Patient is a 58 y/o male who has a PMHX of asthma, HTN, DM, ESRD (Dialysis / Fri/Fri) who presents with right arm pain and swelling. #R arm swelling 2/2 to occlusions : - discussed with Dr. Bates - proximal occlusion of the cephalic vein as well as occlusion of the right subclavian vein. Vein needs to be reopened, procedure scheduled for 06/15 - Acetaminophen for pain - keep arm elevated at the moment #CKD - Patient for dialysis friday - consulted Dr. Ramos - Donna keller to use for dialysis #HTN -continue lisinopril and amlodipine, metoprolol increased to 50 BID #DVT ppx - heparin SQ #Disposition - continue to monitor on med surg Visit type - Emergency Visit Emergency Visit: No - New Patient This patient is new to me today: No - Critical Care Critical Care patient: No
[2018-06-15] MEDS: HEPARIN NA (PORCINE) 5,000 UNITS/ML 1ML VIAL SQ SCH ×3 (06:46→21:53)
[2018-06-15 08:18] LABS: EOS % 10.9 % (0-4.5); HEMATOCRIT 32.3 % (35.4-49); HEMOGLOBIN 10.7 GM/dL (11.7-16.9); LYMPH % 25.9 % (8-40); MCH 28.7 pg (25.7-33.7); MCHC 33.2 g/dl (32.0-35.9); MEAN CELL VOLUME 86.2 fl (80-96); MEAN PLT VOLUME 7.3 fl (7.5-11.1); MONO % 9.2 % (3.8-10.2); PLATELET COUNT 191 K/MM3 (134-434); RBC 3.75 M/mm3 (4.00-5.60); RDW 16.9 % (11.9-15.9); WHITE BLOOD COUNT 6.4 K/mm3 (4.0-10.0)
[2018-06-15] MEDS: METOPROLOL TARTRATE 25 MG TABLET (FP) PO SCH (09:42)
[2018-06-15] MEDS: LISINOPRIL 20 MG TABLET (FP) PO SCH (09:42)
[2018-06-15] MEDS: ISOSORBIDE MONONITRATE 30 MG TAB.SR.24H (FP) PO SCH (09:42)
[2018-06-15] MEDS: amLODIPine BESYLATE 10 MG TABLET (FP) PO SCH (09:42)
[2018-06-15] MEDS: CALCIUM 500MG/VIT-D 200 UNITS COMBO TABLET (FP) PO SCH ×2 (09:42→21:53)
--- NOTE | 2018-06-15 11:39 | PN ---
Progress Note, Physician History of Present Illness: Pt seen and examined at bedside. He is awake and alert. He denies shortness of breath. - Current Medication List Current Medications: Active Medications Acetaminophen (Tylenol -) 650 mg PO Q4H PRN PRN Reason: PAIN LEVEL 1-5 Amlodipine Besylate (Norvasc -) 10 mg PO DAILY [facility] Last Admin: 06/15/18 09:42 Dose: 10 mg Calcium Carbonate/Cholecalciferol (Os-Justin 500+D -) 2 tab PO BID [facility] Last Admin: 06/15/18 09:42 Dose: 2 tab Heparin Sodium (Porcine) (Heparin -) 5,000 unit SQ TID [facility] Last Admin: 06/15/18 06:46 Dose: 5,000 unit Isosorbide Mononitrate (Imdur -) 30 mg PO DAILY [facility] Last Admin: 06/15/18 09:42 Dose: 30 mg Lisinopril (Prinivil) 20 mg PO DAILY [facility] Last Admin: 06/15/18 09:42 Dose: 20 mg Metoprolol Tartrate (Lopressor -) 50 mg PO BID [facility] Last Admin: 06/15/18 09:42 Dose: 50 mg - Objective Vital Signs: Vital Signs Temperature 98.2 F 06/15/18 07:27 Pulse Rate 69 06/15/18 07:27 Respiratory Rate 20 06/15/18 07:27 Blood Pressure 150/90 06/15/18 07:27 O2 Sat by Pulse Oximetry (%) 98 06/14/18 21:00 Constitutional: Yes: Calm Eyes: Yes: Conjunctiva Clear HENT: Yes: Atraumatic Neck: Yes: Supple Cardiovascular: Yes: S1, S2 Respiratory: Yes: CTA Bilaterally Gastrointestinal: Yes: Soft Genitourinary: Yes: WNL Musculoskeletal: Yes: Muscle Weakness Edema: RUE: 2+ Neurological: Yes: Oriented Psychiatric: Yes: Oriented Labs: CBC, BMP 06/15/18 06:20 06/14/18 07:50 INR, PTT INR 1.06 (0.82-1.09) 06/13/18 16:30 Assessment/Plan Current Medications Generic Name Dose Route Start Last Admin Trade Name Freq PRN Reason Stop Dose Admin Acetaminophen 650 mg 06/12/18 02:31 Tylenol - PO Q4H PRN PAIN LEVEL 1-5 Amlodipine Besylate 10 mg 06/12/18 10:00 07/16/18 09:42 Norvasc - PO 10 mg DAILY [facility] Administration Calcium Carbonate/Cholecalciferol 2 tab 06/13/18 12:45 06/15/18 09:42 Os-Justin 500+D - PO 2 tab BID [facility] Administration Heparin Sodium (Porcine) 5,000 unit 06/12/18 06:00 06/15/18 06:46 Heparin - SQ 5,000 unit TID [facility] Administration Isosorbide Mononitrate 30 mg 06/12/18 10:00 06/15/18 09:42 Imdur - PO 30 mg DAILY [facility] Administration Lisinopril 20 mg 06/12/18 10:00 06/15/18 09:42 Prinivil PO 20 mg DAILY [facility] Administration Metoprolol Tartrate 50 mg 06/14/18 22:00 06/15/18 09:42 Lopressor - PO 50 mg BID [facility] Administration Impression 1. ESRD 2. HTN 3. HD access malfunction 4. anemia 5. right arm swelling 6. non compliance Plan - HD in am - vascular input appreciated - monitor bp - discussed plan with pt
[2018-06-15] MEDS ORDERED: SODIUM CHLORIDE 250 ML IV PRN (11:41)
--- NOTE | 2018-06-15 14:44 | PN ---
Teaching Attending Note Name of Resident: Ines Cuba ATTENDING PHYSICIAN STATEMENT I saw and evaluated the patient. I reviewed the resident's note and discussed the case with the resident. I agree with the resident's findings and plan as documented. SUBJECTIVE: seen around 10 am No fever or chills . No abd pain , no OSB . has discomfort and edema in R arm . OBJECTIVE: NAD. CV; RRR Lungs: CTAB Ext: no edema on LE. RUE with 2 + pitting edema including hand, forearm up to mid upper arm. RP 2+ bilaterally. warm skin. ASSESSMENT AND PLAN: 58 y/o man with h/o ESRD on HD, asthma, GERD and hypertension who presented with worsening RUE edema and pain 1- RUE edema. central vein thrombosis for vascular procedure today 2- ESRD: HD per Schedule. 3- HTN: cont meds. HLOC
[2018-06-15] MEDS ORDERED: HEPARIN NA (PORCINE) 5,000 UNITS/ML 1ML VIAL ONE ×2 (16:03→18:04)
[2018-06-15] MEDS ORDERED: LIDOCAINE HCL 1%, 10 MG/ML (20ML VIAL) ONE (16:04)
[2018-06-15] MEDS ORDERED: MIDAZOLAM HCL 2 MG/2 ML SINGLE DOSE VIAL ONE ×2 (17:41→18:18)
[2018-06-15] MEDS ORDERED: LIDOCAINE HCL 1%, 10 MG/ML (20ML VIAL) NR ONE (17:53)
[2018-06-15] MEDS ORDERED: hydrALAZINE HCL 20 MG/ML VIAL ONE (18:08)
[2018-06-15] MEDS ORDERED: PROPOFOL 20 ML ONE (19:04)
--- NOTE | 2018-06-15 19:45 | OP ---
Operative Note - Note: Operative Date: 06/15/18 Pre-Operative Diagnosis: Right subclavian vein occlusion with venous hypertension right arm Operation: Venogram right brachial, axillary veins. Venogram superior vena cava. Findings: Total occlusion of right subclavian and innominate veins. Right IJ also occluded. Post-Operative Diagnosis: Same as Pre-op Surgeon: Charlie Bates Anesthesiologist/TREE TAPPING [employer]ORER: Guanakito Moura Anesthesia: Fractional Estimated Blood Loss (mls): 20
[2018-06-15] MEDS ORDERED: ONDANSETRON 4 MG/2 ML VIAL IVPUSH PRN (19:50)
[2018-06-15] MEDS ORDERED: PROMETHAZINE HCL 25 MG/1 ML VIAL IVPUSH PRN (19:50)
[2018-06-15] MEDS ORDERED: SODIUM CHLORIDE 1,000 ML IV SCH (20:00)
[2018-06-15] MEDS ORDERED: ACETAMINOPHEN 325 MG TABLET (FP) PO PRN (20:05)
[2018-06-16] MEDS: HEPARIN NA (PORCINE) 5,000 UNITS/ML 1ML VIAL SQ SCH ×3 (05:39→23:23)
[2018-06-16] MEDS ORDERED: LISINOPRIL 20 MG TABLET (FP) PO SCH ×2 (10:00→12:09)
[2018-06-16 10:38] LABS: HEMATOCRIT 31.3 % (35.4-49); HEMOGLOBIN 10.2 GM/dL (11.7-16.9); MCH 28.2 pg (25.7-33.7); MCHC 32.7 g/dl (32.0-35.9); MEAN CELL VOLUME 86.2 fl (80-96); MEAN PLT VOLUME 7.8 fl (7.5-11.1); PLATELET COUNT 186 K/MM3 (134-434); RBC 3.63 M/mm3 (4.00-5.60); RDW 17.1 % (11.9-15.9); WHITE BLOOD COUNT 6.8 K/mm3 (4.0-10.0)
[2018-06-16 10:57] LABS: ANION GAP 9 (8-16); BLOOD UREA NITROGEN 47 mg/dL (7-18); CALCIUM 7.8 mg/dL (8.5-10.1); CHLORIDE 100 mmol/L (98-107); CO2 27 mmol/L (21-32); GLUCOSE,RANDOM 129 mg/dL (74-106); POTASSIUM 5.5 mmol/L (3.5-5.1); SODIUM 136 mmol/L (136-145)
[2018-06-16 11:22] LABS: CREATININE 11.3 mg/dL (0.7-1.3)
[2018-06-16] MEDS: CALCIUM 500MG/VIT-D 200 UNITS COMBO TABLET (FP) PO SCH ×2 (11:35→23:23)
[2018-06-16] MEDS: ISOSORBIDE MONONITRATE 30 MG TAB.SR.24H (FP) PO SCH ×2 (11:35→14:53)
[2018-06-16] MEDS: amLODIPine BESYLATE 10 MG TABLET (FP) PO SCH ×2 (11:35→14:52)
[2018-06-16] MEDS ORDERED: EPOETIN ALFA 2,000 UNIT/1 ML VIAL IVPUSH ONE ×2 (11:41→12:00)
[2018-06-16] MEDS ORDERED: SODIUM CHLORIDE 250 ML IV PRN (12:00)
--- NOTE | 2018-06-16 12:34 | PN ---
Progress Note (short form) - Note Progress Note: S/p attempted revascularization of right subclavian vein and SVC. No new complaints. Hand feels tight. I have recommended ligation of right AVF and creation of new access in the left arm where venous drainage appears patent. Problem List - Problems (1) Venous hypertension of upper extremity Code(s): I87.8 - OTHER SPECIFIED DISORDERS OF VEINS (2) ESRD (end stage renal disease) Code(s): N18.6 - END STAGE RENAL DISEASE
--- NOTE | 2018-06-16 13:48 | PN ---
Physical Exam: SUBJECTIVE: Patient is a 58 y/o male who has a PMHX of asthma, HTN, DM, ESRD on dialysis who presents with a central vein occlusion. Patient's is scheduled for revascularization of the R AV fistula for 06/19. OBJECTIVE: Vital Signs Period Temp Pulse Resp BP Sys/Beyer Pulse Ox Last 24 Hr 97.9 F-98.5 F 64-85 12-20 127-167/75-109 97-100 GENERAL: Awake, alert, and fully oriented, in no acute distress. EYES: PERRLA, extraocular movements intact EARS, NOSE, THROAT: oropharynx clear without exudates. Moist mucous membranes. NECK: Normal range of motion, supple without lymphadenopathy LUNGS: Breath sounds equal, clear to auscultation bilaterally. HEART: Regular rate and rhythm, normal S1 and S2 ABDOMEN: Soft, nontender, not distended UPPER EXTREMITIES: R extremity swelling throughout the limb. R arm AV fistula, thrill palpated. 3+ pitting edema, bruit heard over fistula, 5/5 muscle strength , sensation intact Laboratory Results - last 24 hr 06/16/18 06/16/18 09:50 09:50 WBC 6.8 RBC 3.63 L Hgb 10.2 L Hct 31.3 L MCV 86.2 MCH 28.2 MCHC 32.7 RDW 17.1 H Plt Count 186 MPV 7.8 Sodium 136 Potassium 5.5 H D Chloride 100 Carbon Dioxide 27 Anion Gap 9 BUN 47 H D Creatinine 11.3 H* Creat Clearance w eGFR 4.71 Random Glucose 129 H D Calcium 7.8 L Active Medications Generic Name Dose Route Start Last Admin Trade Name Murtazaq PRN Reason Stop Dose Admin Acetaminophen 650 mg 06/15/18 20:05 Tylenol - PO Q4H PRN PAIN LEVEL 1-5 Amlodipine Besylate 10 mg 06/16/18 10:00 06/16/18 11:35 Norvasc - PO Not Given DAILY [facility] Calcium Carbonate/Cholecalciferol 2 tab 06/15/18 22:00 06/16/18 11:35 Os-Justin 500+D - PO Not Given BID [facility] Fentanyl 50 mcg 06/15/18 19:50 Sublimaze Injection - IVPUSH [id number] PRN PAIN-PACU ORDER X 4 DOSES ONLY Heparin Sodium (Porcine) 5,000 unit 06/15/18 22:00 06/16/18 05:39 Heparin - SQ 5,000 unit TID [facility] Administration Sodium Chloride 1,000 mls @ 42 mls/hr 06/15/18 20:00 06/15/18 20:30 Normal Saline - IV 0 mls ASDIR [facility] Administration Isosorbide Mononitrate 30 mg 06/16/18 10:00 06/16/18 11:35 Imdur - PO Not Given DAILY [facility] Lisinopril 40 mg 06/16/18 12:09 Prinivil PO DAILY [facility] Metoprolol Succinate 50 mg 06/15/18 22:00 06/16/18 11:36 Toprol Xl - PO Not Given BID [facility] Ondansetron HCl 4 mg 06/15/18 19:50 Zofran Injection IVPUSH Q6H PRN NAUSEA AND/OR VOMITING Promethazine HCl 12.5 mg 06/15/18 19:50 Phenergan Injection - IVPUSH Q6H PRN NAUSEA-FOR RESCUE AFTER 15 MIN ASSESSMENT/PLAN: Patient is a 58 y/o male who has a PMHX of asthma, HTN, DM, ESRD (Dialysis / Fri/Fri) who presents with right arm pain and swelling. #R arm swelling 2/2 to occlusions : - discussed with Dr. Bates - proximal occlusion of the cephalic vein as well as occlusion of the right subclavian vein. -06/19 scheduled for revascularization of R arm fistula, if not possible L arm fistula creation - Acetaminophen for pain - keep arm elevated #CKD - Patient for dialysis - consulted Dr. Ramos - Terellacatsony okay to use for dialysis #HTN -continue lisinopril and amlodipine, metoprolol increased to 50 BID #DVT ppx - heparin SQ #Disposition - continue to monitor on med surg Visit type - Emergency Visit Emergency Visit: No - New Patient This patient is new to me today: No - Critical Care Critical Care patient: No
[2018-06-16] MEDS: LISINOPRIL 20 MG TABLET (FP) PO SCH (14:53)
--- NOTE | 2018-06-16 15:29 | PN ---
Progress Note, Physician History of Present Illness: Pt seen and examined at bedside. He tolerated HD. - Current Medication List Current Medications: Active Medications Acetaminophen (Tylenol -) 650 mg PO Q4H PRN PRN Reason: PAIN LEVEL 1-5 Amlodipine Besylate (Norvasc -) 10 mg PO DAILY [facility] Last Admin: 06/16/18 14:52 Dose: 10 mg Calcium Carbonate/Cholecalciferol (Os-Justin 500+D -) 2 tab PO BID [facility] Last Admin: 06/16/18 11:35 Dose: Not Given Fentanyl (Sublimaze Injection -) 50 mcg IVPUSH [id number] PRN PRN Reason: PAIN-PACU ORDER X 4 DOSES ONLY Heparin Sodium (Porcine) (Heparin -) 5,000 unit SQ TID [facility] Last Admin: 06/16/18 14:52 Dose: 5,000 unit Isosorbide Mononitrate (Imdur -) 30 mg PO DAILY [facility] Last Admin: 06/16/18 14:53 Dose: 30 mg Lisinopril (Prinivil) 20 mg PO DAILY [facility] Last Admin: 06/16/18 14:53 Dose: 20 mg Metoprolol Succinate (Toprol Xl -) 50 mg PO BID [facility] Last Admin: 06/16/18 11:36 Dose: Not Given Ondansetron HCl (Zofran Injection) 4 mg IVPUSH Q6H PRN PRN Reason: NAUSEA AND/OR VOMITING Promethazine HCl (Phenergan Injection -) 12.5 mg IVPUSH Q6H PRN PRN Reason: NAUSEA-FOR RESCUE AFTER 15 MIN - Objective Vital Signs: Vital Signs Temperature 98.8 F 06/16/18 15:19 Pulse Rate 71 06/16/18 15:19 Respiratory Rate 20 06/16/18 15:19 Blood Pressure 165/89 06/16/18 15:19 O2 Sat by Pulse Oximetry (%) 97 06/15/18 21:12 Constitutional: Yes: Calm Eyes: Yes: Conjunctiva Clear HENT: Yes: Atraumatic Neck: Yes: Supple Cardiovascular: Yes: S1, S2 Respiratory: Yes: CTA Bilaterally Gastrointestinal: Yes: Soft Genitourinary: Yes: WNL Musculoskeletal: Yes: WNL Edema: Yes Edema: RUE: 2+ Neurological: Yes: Oriented Psychiatric: Yes: Oriented Labs: CBC, BMP 06/16/18 09:50 06/16/18 09:50 INR, PTT INR 1.06 (0.82-1.09) 06/13/18 16:30 Problem List - Problems (1) Swollen arm Code(s): M79.89 - OTHER SPECIFIED SOFT TISSUE DISORDERS (2) ESRD (end stage renal disease) Code(s): N18.6 - END STAGE RENAL DISEASE Assessment/Plan Current Medications Generic Name Dose Route Start Last Admin Trade Name Freq PRN Reason Stop Dose Admin Acetaminophen 650 mg 06/15/18 20:05 Tylenol - PO Q4H PRN PAIN LEVEL 1-5 Amlodipine Besylate 10 mg 06/16/18 10:00 06/16/18 14:52 Norvasc - PO 10 mg DAILY [facility] Administration Calcium Carbonate/Cholecalciferol 2 tab 06/15/18 22:00 06/16/18 11:35 Os-Justin 500+D - PO Not Given BID [facility] Fentanyl 50 mcg 06/15/18 19:50 Sublimaze Injection - IVPUSH [id number] PRN PAIN-PACU ORDER X 4 DOSES ONLY Heparin Sodium (Porcine) 5,000 unit 06/15/18 22:00 06/16/18 14:52 Heparin - SQ 5,000 unit TID [facility] Administration Isosorbide Mononitrate 30 mg 06/16/18 10:00 06/16/18 14:53 Imdur - PO 30 mg DAILY [facility] Administration Lisinopril 20 mg 06/16/18 14:45 06/16/18 14:53 Prinivil PO 20 mg DAILY [facility] Administration Metoprolol Succinate 50 mg 06/15/18 22:00 06/16/18 11:36 Toprol Xl - PO Not Given BID [facility] Ondansetron HCl 4 mg 06/15/18 19:50 Zofran Injection IVPUSH Q6H PRN NAUSEA AND/OR VOMITING Promethazine HCl 12.5 mg 06/15/18 19:50 Phenergan Injection - IVPUSH Q6H PRN NAUSEA-FOR RESCUE AFTER 15 MIN Impression 1. ESRD 2. HTN 3. HD access malfunction 4. anemia 5. right arm swelling 6. non compliance Plan - HD today - discussed with vascular surgery, pt recommends ligation of fistula - monitor bp - discussed plan with pt
--- NOTE | 2018-06-16 17:28 | PN ---
Teaching Attending Note Name of Resident: Ines Cuba ATTENDING PHYSICIAN STATEMENT I saw and evaluated the patient. I reviewed the resident's note and discussed the case with the resident. I agree with the resident's findings and plan as documented. SUBJECTIVE: No fever or chills. R arm feels tight . No abd pain , no SOB OBJECTIVE: NAD. CV; RRR Lungs: CTAB Ext: no edema on LE. RUE with 2 + pitting edema including hand, forearm up to mid upper arm. RP 2+ bilaterally. warm skin. LARRY wraps ASSESSMENT AND PLAN: 58 y/o man with h/o ESRD on HD, asthma, GERD and hypertension who presented with worsening RUE edema and pain 1- RUE edema. due to thrombosis of extremity proximal veins. s/p attempted revascularization - for ligation of the R AVF and creation of L AVF on Friday 2- ESRD: s/p HD today 3- HTN: cont meds. HLOC
[2018-06-17] MEDS: HEPARIN NA (PORCINE) 5,000 UNITS/ML 1ML VIAL SQ SCH ×3 (05:57→22:13)
--- NOTE | 2018-06-17 06:33 | PN ---
Physical Exam: SUBJECTIVE: Patient is a 58 y/o male who has a PMHX of asthma, HTN, DM, ESRD on dialysis who presents with a central vein occlusion. Patient's is scheduled for revascularization of the R AV fistula for 06/19. OBJECTIVE: Vital Signs Period Temp Pulse Resp BP Sys/Beyer Pulse Ox Last 24 Hr 98.0 F-98.8 F 64-82 18-20 121-172/75-110 98 GENERAL: Awake, alert, and fully oriented, in no acute distress. EYES: PERRLA, extraocular movements intact EARS, NOSE, THROAT: oropharynx clear without exudates. Moist mucous membranes. NECK: Normal range of motion, supple without lymphadenopathy LUNGS: Breath sounds equal, clear to auscultation bilaterally. HEART: Regular rate and rhythm, normal S1 and S2 ABDOMEN: Soft, nontender, not distended UPPER EXTREMITIES: R extremity swelling throughout the limb. R arm AV fistula, thrill palpated. 3+ pitting edema, bruit heard over fistula, 5/5 muscle strength , sensation intact Laboratory Results - last 24 hr 06/16/18 06/16/18 09:50 09:50 WBC 6.8 RBC 3.63 L Hgb 10.2 L Hct 31.3 L MCV 86.2 MCH 28.2 MCHC 32.7 RDW 17.1 H Plt Count 186 MPV 7.8 Sodium 136 Potassium 5.5 H D Chloride 100 Carbon Dioxide 27 Anion Gap 9 BUN 47 H D Creatinine 11.3 H* Creat Clearance w eGFR 4.71 Random Glucose 129 H D Calcium 7.8 L Active Medications Generic Name Dose Route Start Last Admin Trade Name Murtazaq PRN Reason Stop Dose Admin Acetaminophen 650 mg 06/15/18 20:05 Tylenol - PO Q4H PRN PAIN LEVEL 1-5 Amlodipine Besylate 10 mg 06/16/18 10:00 06/16/18 14:52 Norvasc - PO 10 mg DAILY [facility]TER Administration Calcium Carbonate/Cholecalciferol 2 tab 06/15/18 22:00 06/16/18 23:23 Os-Justin 500+D - PO 2 tab BID [facility]TER Administration Fentanyl 50 mcg 06/15/18 19:50 Sublimaze Injection - IVPUSH [id number] PRN PAIN-PACU ORDER X 4 DOSES ONLY Heparin Sodium (Porcine) 5,000 unit 06/15/18 22:00 06/17/18 05:57 Heparin - SQ 5,000 unit TID [facility]TER Administration Isosorbide Mononitrate 30 mg 06/16/18 10:00 06/16/18 14:53 Imdur - PO 30 mg DAILY [facility]TER Administration Lisinopril 20 mg 06/16/18 14:45 06/16/18 14:53 Prinivil PO 20 mg DAILY [facility]TER Administration Metoprolol Succinate 50 mg 06/15/18 22:00 06/16/18 23:23 Toprol Xl - PO 50 mg BID [facility]TER Administration Ondansetron HCl 4 mg 06/15/18 19:50 Zofran Injection IVPUSH Q6H PRN NAUSEA AND/OR VOMITING Promethazine HCl 12.5 mg 06/15/18 19:50 Phenergan Injection - IVPUSH Q6H PRN NAUSEA-FOR RESCUE AFTER 15 MIN ASSESSMENT/PLAN: Patient is a 58 y/o male who has a PMHX of asthma, HTN, DM, ESRD (Dialysis / Fri/Fri) who presents with right arm pain and swelling. #R arm swelling 2/2 to occlusions : - discussed with Dr. Bates - proximal occlusion of the cephalic vein as well as occlusion of the right subclavian vein. -06/19 scheduled for revascularization of R arm fistula, if not possible L arm fistula creation - Acetaminophen for pain - keep arm elevated #CKD - Patient for dialysis - consulted Dr. Richard Thompson okay to use for dialysis #HTN -continue lisinopril 20 mg and amlodipine 10 mg, metoprolol increased to 50 BID #DVT ppx - heparin SQ #Disposition: reevaluate after Friday surgery Visit type - Emergency Visit Emergency Visit: No - New Patient This patient is new to me today: No - Critical Care Critical Care patient: No
[2018-06-17 07:54] LABS: ANION GAP 7 (8-16); BLOOD UREA NITROGEN 22 mg/dL (7-18); CALCIUM 7.8 mg/dL (8.5-10.1); CHLORIDE 98 mmol/L (98-107); CO2 32 mmol/L (21-32); CREATININE 7.5 mg/dL (0.7-1.3); GLUCOSE,RANDOM 81 mg/dL (74-106); POTASSIUM 4.8 mmol/L (3.5-5.1); SODIUM 137 mmol/L (136-145)
[2018-06-17] MEDS ORDERED: SODIUM CHLORIDE 250 ML IV PRN (08:51)
--- NOTE | 2018-06-17 08:55 | PN ---
Teaching Attending Note Name of Resident: Ines Cuba ATTENDING PHYSICIAN STATEMENT I saw and evaluated the patient. I reviewed the resident's note and discussed the case with the resident. I agree with the resident's findings and plan as documented. SUBJECTIVE: Patient is comfortable, has no complains OBJECTIVE: Vital Signs Temperature 98.5 F 06/17/18 06:00 Pulse Rate 70 06/17/18 06:00 Respiratory Rate 18 06/17/18 06:00 Blood Pressure 144/94 06/17/18 06:00 O2 Sat by Pulse Oximetry (%) 98 06/16/18 21:00 CBCD WBC 6.8 K/mm3 (4.0-10.0) 06/16/18 09:50 RBC 3.63 M/mm3 (4.00-5.60) L 06/16/18 09:50 Hgb 10.2 GM/dL (11.7-16.9) L 06/16/18 09:50 Hct 31.3 % (35.4-49) L 06/16/18 09:50 MCV 86.2 fl (80-96) 06/16/18 09:50 MCHC 32.7 g/dl (32.0-35.9) 06/16/18 09:50 RDW 17.1 % (11.9-15.9) H 06/16/18 09:50 Plt Count 186 K/MM3 (134-434) 06/16/18 09:50 MPV 7.8 fl (7.5-11.1) 06/16/18 09:50 CMP Sodium 137 mmol/L (136-145) 06/17/18 06:06 Potassium 4.8 mmol/L (3.5-5.1) 06/17/18 06:06 Chloride 98 mmol/L (98-107) 06/17/18 06:06 Carbon Dioxide 32 mmol/L (21-32) 06/17/18 06:06 Anion Gap 7 (8-16) L 06/17/18 06:06 BUN 22 mg/dL (7-18) H D 06/17/18 06:06 Creatinine 7.5 mg/dL (0.7-1.3) H 06/17/18 06:06 Creat Clearance w eGFR 7.56 (>60) 06/17/18 06:06 Random Glucose 81 mg/dL (74-106) D 06/17/18 06:06 Calcium 7.8 mg/dL (8.5-10.1) L 06/17/18 06:06 Total Bilirubin 0.4 mg/dL (0.2-1.0) 06/14/18 07:50 AST 11 U/L (15-37) L 06/14/18 07:50 ALT 9 U/L (12-78) L 06/14/18 07:50 Alkaline Phosphatase 130 U/L (45-117) H 06/14/18 07:50 Total Protein 7.0 g/dl (6.4-8.2) 06/14/18 07:50 Albumin 3.4 g/dl (3.4-5.0) 06/14/18 07:50 Current Medications Generic Name Dose Route Start Last Admin Trade Name Freq PRN Reason Stop Dose Admin Acetaminophen 650 mg 06/15/18 20:05 Tylenol - PO Q4H PRN PAIN LEVEL 1-5 Amlodipine Besylate 10 mg 06/16/18 10:00 06/16/18 14:52 Norvasc - PO 10 mg DAILY [facility] Administration Calcium Carbonate/Cholecalciferol 2 tab 06/15/18 22:00 06/16/18 23:23 Os-Justin 500+D - PO 2 tab BID [facility] Administration Fentanyl 50 mcg 06/15/18 19:50 Sublimaze Injection - IVPUSH [id number] PRN PAIN-PACU ORDER X 4 DOSES ONLY Heparin Sodium (Porcine) 5,000 unit 06/15/18 22:00 06/17/18 05:57 Heparin - SQ 5,000 unit TID [facility] Administration Isosorbide Mononitrate 30 mg 06/16/18 10:00 06/16/18 14:53 Imdur - PO 30 mg DAILY [facility] Administration Lisinopril 20 mg 06/16/18 14:45 06/16/18 14:53 Prinivil PO 20 mg DAILY [facility] Administration Metoprolol Succinate 50 mg 06/15/18 22:00 06/16/18 23:23 Toprol Xl - PO 50 mg BID [facility] Administration Ondansetron HCl 4 mg 06/15/18 19:50 Zofran Injection IVPUSH Q6H PRN NAUSEA AND/OR VOMITING Promethazine HCl 12.5 mg 06/15/18 19:50 Phenergan Injection - IVPUSH Q6H PRN NAUSEA-FOR RESCUE AFTER 15 MIN Home Medications Medication Instructions Recorded Amlodipine Besylate [Norvasc -] 10 mg PO DAILY #30 tablet 03/27/17 Isosorbide Mononitrate [Imdur -] 30 mg PO DAILY #30 tab 06/01/17 Lisinopril 20 mg PO DAILY 02/09/18 Metoprolol Tartrate [Lopressor -] 25 mg PO BID 02/09/18 PE: per resident's note ASSESSMENT AND PLAN: 58 y/o man with h/o ESRD on HD, asthma, GERD and hypertension who presented with worsening RUE edema and pain # Acute RUE edema. due to thrombosis of extremity proximal veins. s/p attempted revascularization, for ligation of the Right AVF and for new left AVF on Friday. Vascular surgeon is on the case. # ESRD: on HD # HTN: cont home meds. DVT px: heparin
[2018-06-17] MEDS: ISOSORBIDE MONONITRATE 30 MG TAB.SR.24H (FP) PO SCH (10:42)
[2018-06-17] MEDS: LISINOPRIL 20 MG TABLET (FP) PO SCH (10:42)
[2018-06-17] MEDS: amLODIPine BESYLATE 10 MG TABLET (FP) PO SCH (10:42)
[2018-06-17] MEDS: CALCIUM 500MG/VIT-D 200 UNITS COMBO TABLET (FP) PO SCH ×2 (10:42→22:12)
--- NOTE | 2018-06-17 12:20 | PN ---
Progress Note, Physician History of Present Illness: Pt seen and examined at bedside. He is awake and alert. He denies shortness of breath. - Current Medication List Current Medications: Active Medications Acetaminophen (Tylenol -) 650 mg PO Q4H PRN PRN Reason: PAIN LEVEL 1-5 Amlodipine Besylate (Norvasc -) 10 mg PO DAILY [facility] Last Admin: 06/17/18 10:42 Dose: 10 mg Calcium Carbonate/Cholecalciferol (Os-Justin 500+D -) 2 tab PO BID [facility] Last Admin: 06/17/18 10:42 Dose: 2 tab Fentanyl (Sublimaze Injection -) 50 mcg IVPUSH [id number] PRN PRN Reason: PAIN-PACU ORDER X 4 DOSES ONLY Heparin Sodium (Porcine) (Heparin -) 5,000 unit SQ TID [facility] Last Admin: 06/17/18 05:57 Dose: 5,000 unit Isosorbide Mononitrate (Imdur -) 30 mg PO DAILY [facility] Last Admin: 06/17/18 10:42 Dose: 30 mg Lisinopril (Prinivil) 20 mg PO DAILY [facility] Last Admin: 06/17/18 10:42 Dose: 20 mg Metoprolol Succinate (Toprol Xl -) 50 mg PO BID [facility] Last Admin: 06/17/18 10:42 Dose: 50 mg Ondansetron HCl (Zofran Injection) 4 mg IVPUSH Q6H PRN PRN Reason: NAUSEA AND/OR VOMITING Promethazine HCl (Phenergan Injection -) 12.5 mg IVPUSH Q6H PRN PRN Reason: NAUSEA-FOR RESCUE AFTER 15 MIN - Objective Vital Signs: Vital Signs Temperature 98.3 F 06/17/18 09:00 Pulse Rate 74 06/17/18 09:00 Respiratory Rate 20 06/17/18 09:00 Blood Pressure 152/91 06/17/18 09:00 O2 Sat by Pulse Oximetry (%) 98 06/16/18 21:00 Constitutional: Yes: Calm Eyes: Yes: Conjunctiva Clear Cardiovascular: Yes: S1, S2 Respiratory: Yes: CTA Bilaterally Gastrointestinal: Yes: Normal Bowel Sounds, Soft Genitourinary: Yes: WNL Edema: Yes Edema: RUE: 2+ Neurological: Yes: Oriented Psychiatric: Yes: Oriented Labs: CBC, BMP 06/16/18 09:50 06/17/18 06:06 INR, PTT INR 1.06 (0.82-1.09) 06/13/18 16:30 Problem List - Problems (1) Swollen arm Code(s): M79.89 - OTHER SPECIFIED SOFT TISSUE DISORDERS (2) ESRD (end stage renal disease) Code(s): N18.6 - END STAGE RENAL DISEASE Assessment/Plan Current Medications Generic Name Dose Route Start Last Admin Trade Name Freq PRN Reason Stop Dose Admin Acetaminophen 650 mg 06/15/18 20:05 Tylenol - PO Q4H PRN PAIN LEVEL 1-5 Amlodipine Besylate 10 mg 06/16/18 10:00 06/17/18 10:42 Norvasc - PO 10 mg DAILY [facility] Administration Calcium Carbonate/Cholecalciferol 2 tab 06/15/18 22:00 06/17/18 10:42 Os-Justin 500+D - PO 2 tab BID [facility]TER Administration Fentanyl 50 mcg 06/15/18 19:50 Sublimaze Injection - IVPUSH [id number] PRN PAIN-PACU ORDER X 4 DOSES ONLY Heparin Sodium (Porcine) 5,000 unit 06/15/18 22:00 06/17/18 05:57 Heparin - SQ 5,000 unit TID [facility]TER Administration Isosorbide Mononitrate 30 mg 06/16/18 10:00 06/17/18 10:42 Imdur - PO 30 mg DAILY [facility]TER Administration Lisinopril 20 mg 06/16/18 14:45 06/17/18 10:42 Prinivil PO 20 mg DAILY [facility]TER Administration Metoprolol Succinate 50 mg 06/15/18 22:00 06/17/18 10:42 Toprol Xl - PO 50 mg BID [facility]ALTER Administration Ondansetron HCl 4 mg 06/15/18 19:50 Zofran Injection IVPUSH Q6H PRN NAUSEA AND/OR VOMITING Promethazine HCl 12.5 mg 06/15/18 19:50 Phenergan Injection - IVPUSH Q6H PRN NAUSEA-FOR RESCUE AFTER 15 MIN Impression 1. ESRD 2. HTN 3. HD access malfunction 4. anemia 5. right arm swelling 6. non compliance Plan - HD in am - possible OR tomorrow, pending vascular - monitor bp - discussed plan with pt
[2018-06-18] MEDS: HEPARIN NA (PORCINE) 5,000 UNITS/ML 1ML VIAL SQ SCH ×3 (06:16→22:11)
--- NOTE | 2018-06-18 07:18 | PN ---
Physical Exam: SUBJECTIVE: Patient is a 58 y/o male who has a PMHX of asthma, HTN, DM, ESRD on dialysis who presents with a central vein occlusion. Patient's is scheduled for revascularization of the R AV fistula for 06/19. Patient receiving dialysis today. OBJECTIVE: Vital Signs Period Temp Pulse Resp BP Sys/Beyer Pulse Ox Last 24 Hr 97.7 F-98.5 F 66-75 18-20 121-159/84-98 98-98 GENERAL: Awake, alert, and fully oriented, in no acute distress. EYES: PERRLA, extraocular movements intact EARS, NOSE, THROAT: oropharynx clear without exudates. Moist mucous membranes. NECK: Normal range of motion, supple without lymphadenopathy LUNGS: Breath sounds equal, clear to auscultation bilaterally. HEART: Regular rate and rhythm, normal S1 and S2 ABDOMEN: Soft, nontender, not distended UPPER EXTREMITIES: R extremity swelling throughout the limb. R arm AV fistula, thrill palpated. 3+ pitting edema, bruit heard over fistula, 5/5 muscle strength , sensation intact Laboratory Results - last 24 hr 06/17/18 06:06 Sodium 137 Potassium 4.8 Chloride 98 Carbon Dioxide 32 Anion Gap 7 L BUN 22 H D Creatinine 7.5 H Creat Clearance w eGFR 7.56 Random Glucose 81 D Calcium 7.8 L Active Medications Generic Name Dose Route Start Last Admin Trade Name Freq PRN Reason Stop Dose Admin Acetaminophen 650 mg 06/15/18 20:05 Tylenol - PO Q4H PRN PAIN LEVEL 1-5 Amlodipine Besylate 10 mg 06/16/18 10:00 06/17/18 10:42 Norvasc - PO 10 mg DAILY WALTER Administration Calcium Carbonate/Cholecalciferol 2 tab 06/15/18 22:00 06/17/18 22:12 Os-Justin 500+D - PO 2 tab BID WALTER Administration Epoetin Refugio 4,000 unit 06/18/18 12:20 Epogen - IVPUSH 06/18/18 12:21 ONCE ONE Fentanyl 50 mcg 06/15/18 19:50 Sublimaze Injection - IVPUSH [id number] PRN PAIN-PACU ORDER X 4 DOSES ONLY Heparin Sodium (Porcine) 5,000 unit 06/15/18 22:00 06/18/18 06:16 Heparin - SQ 5,000 unit TID WALTER Administration Sodium Chloride 250 mls @ 3,000 mls/hr 06/17/18 12:20 Normal Saline - IV 06/18/18 12:20 PRN PRN Hypotension during Dialysis Isosorbide Mononitrate 30 mg 06/16/18 10:00 06/17/18 10:42 Imdur - PO 30 mg DAILY [facility]TER Administration Lisinopril 20 mg 06/16/18 14:45 06/17/18 10:42 Prinivil PO 20 mg DAILY [facility]TER Administration Metoprolol Succinate 50 mg 06/15/18 22:00 06/17/18 22:12 Toprol Xl - PO 50 mg BID WALTER Administration Ondansetron HCl 4 mg 06/15/18 19:50 Zofran Injection IVPUSH Q6H PRN NAUSEA AND/OR VOMITING Promethazine HCl 12.5 mg 06/15/18 19:50 Phenergan Injection - IVPUSH Q6H PRN NAUSEA-FOR RESCUE AFTER 15 MIN ASSESSMENT/PLAN: Patient is a 58 y/o male who has a PMHX of asthma, HTN, DM, ESRD (Dialysis / Fri/Fri) who presents with right arm pain and swelling. #R arm swelling 2/2 to occlusions : - discussed with Dr. Bates - proximal occlusion of the cephalic vein as well as occlusion of the right subclavian vein. - 06/19 scheduled for revascularization of R arm fistula, if not possible L arm fistula creation - Acetaminophen for pain - keep arm elevated #CKD - Patient for dialysis today - consulted Dr. Ramos - Donna bartonay to use for dialysis #HTN -continue lisinopril 20 mg and amlodipine 10 mg, metoprolol succinate increased to 75 BID #DVT ppx - heparin SQ #Disposition: reevaluate after Friday surgery Visit type - Emergency Visit Emergency Visit: No - New Patient This patient is new to me today: No - Critical Care Critical Care patient: No
[2018-06-18] MEDS ORDERED: EPOETIN ALFA 2,000 UNIT/1 ML VIAL IVPUSH ONE (09:00)
[2018-06-18 09:09] LABS: HEMATOCRIT 31.9 % (35.4-49); HEMOGLOBIN 10.5 GM/dL (11.7-16.9); MCH 28.5 pg (25.7-33.7); MCHC 33.1 g/dl (32.0-35.9); MEAN CELL VOLUME 86.1 fl (80-96); MEAN PLT VOLUME 7.8 fl (7.5-11.1); PLATELET COUNT 164 K/MM3 (134-434); RDW 17.1 % (11.9-15.9); WHITE BLOOD COUNT 4.5 K/mm3 (4.0-10.0)
[2018-06-18 09:36] LABS: ANION GAP 10 (8-16); BLOOD UREA NITROGEN 34 mg/dL (7-18); CALCIUM 7.4 mg/dL (8.5-10.1); CHLORIDE 99 mmol/L (98-107); CO2 28 mmol/L (21-32); GLUCOSE,RANDOM 116 mg/dL (74-106); POTASSIUM 4.6 mmol/L (3.5-5.1); SODIUM 137 mmol/L (136-145)
[2018-06-18 09:43] LABS: CREATININE 9.6 mg/dL (0.7-1.3)
[2018-06-18] MEDS: CALCIUM 500MG/VIT-D 200 UNITS COMBO TABLET (FP) PO SCH ×2 (13:00→22:12)
[2018-06-18] MEDS: amLODIPine BESYLATE 10 MG TABLET (FP) PO SCH (13:01)
[2018-06-18] MEDS: LISINOPRIL 20 MG TABLET (FP) PO SCH (13:01)
[2018-06-18] MEDS: ISOSORBIDE MONONITRATE 30 MG TAB.SR.24H (FP) PO SCH (13:02)
--- NOTE | 2018-06-18 16:15 | PN ---
Teaching Attending Note Name of Resident: Ines Cuba ATTENDING PHYSICIAN STATEMENT I saw and evaluated the patient. I reviewed the resident's note and discussed the case with the resident. I agree with the resident's findings and plan as documented. SUBJECTIVE: No new complains. OBJECTIVE: Vital Signs Temperature 98.5 F 06/18/18 15:58 Pulse Rate 78 06/18/18 15:58 Respiratory Rate 22 06/18/18 15:58 Blood Pressure 138/78 06/18/18 15:58 O2 Sat by Pulse Oximetry (%) 95 06/18/18 09:00 CBCD WBC 4.5 K/mm3 (4.0-10.0) 06/18/18 08:30 RBC 3.70 M/mm3 (4.00-5.60) L 06/18/18 08:30 Hgb 10.5 GM/dL (11.7-16.9) L 06/18/18 08:30 Hct 31.9 % (35.4-49) L 06/18/18 08:30 MCV 86.1 fl (80-96) 06/18/18 08:30 MCHC 33.1 g/dl (32.0-35.9) 06/18/18 08:30 RDW 17.1 % (11.9-15.9) H 06/18/18 08:30 Plt Count 164 K/MM3 (134-434) 06/18/18 08:30 MPV 7.8 fl (7.5-11.1) 06/18/18 08:30 CMP Sodium 137 mmol/L (136-145) 06/18/18 08:30 Potassium 4.6 mmol/L (3.5-5.1) 06/18/18 08:30 Chloride 99 mmol/L (98-107) 06/18/18 08:30 Carbon Dioxide 28 mmol/L (21-32) 06/18/18 08:30 Anion Gap 10 (8-16) 06/18/18 08:30 BUN 34 mg/dL (7-18) H 06/18/18 08:30 Creatinine 9.6 mg/dL (0.7-1.3) H* 06/18/18 08:30 Creat Clearance w eGFR 5.68 (>60) 06/18/18 08:30 Random Glucose 116 mg/dL (74-106) H D 06/18/18 08:30 Calcium 7.4 mg/dL (8.5-10.1) L 06/18/18 08:30 Total Bilirubin 0.4 mg/dL (0.2-1.0) 06/14/18 07:50 AST 11 U/L (15-37) L 06/14/18 07:50 ALT 9 U/L (12-78) L 06/14/18 07:50 Alkaline Phosphatase 130 U/L (45-117) H 06/14/18 07:50 Total Protein 7.0 g/dl (6.4-8.2) 06/14/18 07:50 Albumin 3.4 g/dl (3.4-5.0) 06/14/18 07:50 Current Medications Generic Name Dose Route Start Last Admin Trade Name Freq PRN Reason Stop Dose Admin Acetaminophen 650 mg 06/15/18 20:05 Tylenol - PO Q4H PRN PAIN LEVEL 1-5 Amlodipine Besylate 10 mg 06/16/18 10:00 06/18/18 13:01 Norvasc - PO 10 mg DAILY [facility] Administration Calcium Carbonate/Cholecalciferol 2 tab 06/15/18 22:00 06/18/18 13:00 Os-Justin 500+D - PO 2 tab BID [facility] Administration Fentanyl 50 mcg 06/15/18 19:50 Sublimaze Injection - IVPUSH [id number] PRN PAIN-PACU ORDER X 4 DOSES ONLY Heparin Sodium (Porcine) 5,000 unit 06/15/18 22:00 06/18/18 14:11 Heparin - SQ 5,000 unit TID [facility] Administration Isosorbide Mononitrate 30 mg 06/16/18 10:00 06/18/18 13:02 Imdur - PO 30 mg DAILY [facility] Administration Lisinopril 20 mg 06/16/18 14:45 06/18/18 13:01 Prinivil PO 20 mg DAILY [facility] Administration Metoprolol Succinate 75 mg 06/18/18 07:38 06/18/18 13:00 Toprol Xl - PO 75 mg BID [facility]TER Administration Ondansetron HCl 4 mg 06/15/18 19:50 Zofran Injection IVPUSH Q6H PRN NAUSEA AND/OR VOMITING Promethazine HCl 12.5 mg 06/15/18 19:50 Phenergan Injection - IVPUSH Q6H PRN NAUSEA-FOR RESCUE AFTER 15 MIN Home Medications Medication Instructions Recorded RX: Amlodipine Besylate [Norvasc -] 10 mg PO DAILY #30 tablet 03/27/17 RX: Isosorbide Mononitrate [Imdur 30 mg PO DAILY #30 tab 06/01/17 -] RX: Lisinopril 20 mg PO DAILY 02/09/18 RX: Metoprolol Tartrate [Lopressor 25 mg PO BID 02/09/18 -] PE: per resident's note ASSESSMENT AND PLAN: 58 y/o man with h/o ESRD on HD, asthma, GERD and hypertension who presented with worsening RUE edema and pain # Acute RUE edema. due to thrombosis of extremity proximal veins. s/p attempted revascularization, for ligation of the Right AVF and for new left AVF on Friday06/19/2018. by # ESRD: on HD # HTN: cont home meds. DVT px: heparin
--- NOTE | 2018-06-18 16:52 | PN ---
Progress Note, Physician History of Present Illness: Pt seen and examined at bedside. He is awake and alert. He tolerated HD. - Current Medication List Current Medications: Active Medications Acetaminophen (Tylenol -) 650 mg PO Q4H PRN PRN Reason: PAIN LEVEL 1-5 Amlodipine Besylate (Norvasc -) 10 mg PO DAILY [facility] Last Admin: 06/18/18 13:01 Dose: 10 mg Calcium Carbonate/Cholecalciferol (Os-Justin 500+D -) 2 tab PO BID [facility] Last Admin: 06/18/18 13:00 Dose: 2 tab Fentanyl (Sublimaze Injection -) 50 mcg IVPUSH [id number] PRN PRN Reason: PAIN-PACU ORDER X 4 DOSES ONLY Heparin Sodium (Porcine) (Heparin -) 5,000 unit SQ TID [facility] Last Admin: 06/18/18 14:11 Dose: 5,000 unit Isosorbide Mononitrate (Imdur -) 30 mg PO DAILY [facility] Last Admin: 06/18/18 13:02 Dose: 30 mg Lisinopril (Prinivil) 20 mg PO DAILY [facility] Last Admin: 06/18/18 13:01 Dose: 20 mg Metoprolol Succinate (Toprol Xl -) 75 mg PO BID [facility] Last Admin: 06/18/18 13:00 Dose: 75 mg Ondansetron HCl (Zofran Injection) 4 mg IVPUSH Q6H PRN PRN Reason: NAUSEA AND/OR VOMITING Promethazine HCl (Phenergan Injection -) 12.5 mg IVPUSH Q6H PRN PRN Reason: NAUSEA-FOR RESCUE AFTER 15 MIN - Objective Vital Signs: Vital Signs Temperature 98.5 F 06/18/18 15:58 Pulse Rate 78 06/18/18 15:58 Respiratory Rate 22 06/18/18 15:58 Blood Pressure 138/78 06/18/18 15:58 O2 Sat by Pulse Oximetry (%) 95 06/18/18 09:00 Constitutional: Yes: Calm Eyes: Yes: Conjunctiva Clear HENT: Yes: Atraumatic Neck: Yes: Supple Cardiovascular: Yes: S1, S2 Respiratory: Yes: CTA Bilaterally Gastrointestinal: Yes: Normal Bowel Sounds, Soft Musculoskeletal: Yes: WNL Edema: Yes Edema: RUE: 2+ Neurological: Yes: Oriented Psychiatric: Yes: Oriented Labs: CBC, BMP 06/18/18 08:30 06/18/18 08:30 INR, PTT INR 1.06 (0.82-1.09) 06/13/18 16:30 Problem List - Problems (1) Swollen arm Code(s): M79.89 - OTHER SPECIFIED SOFT TISSUE DISORDERS (2) ESRD (end stage renal disease) Code(s): N18.6 - END STAGE RENAL DISEASE Assessment/Plan Current Medications Generic Name Dose Route Start Last Admin Trade Name Freq PRN Reason Stop Dose Admin Acetaminophen 650 mg 06/15/18 20:05 Tylenol - PO Q4H PRN PAIN LEVEL 1-5 Amlodipine Besylate 10 mg 06/16/18 10:00 06/18/18 13:01 Norvasc - PO 10 mg DAILY [facility] Administration Calcium Carbonate/Cholecalciferol 2 tab 06/15/18 22:00 06/18/18 13:00 Os-Justin 500+D - PO 2 tab BID [facility] Administration Fentanyl 50 mcg 06/15/18 19:50 Sublimaze Injection - IVPUSH [id number] PRN PAIN-PACU ORDER X 4 DOSES ONLY Heparin Sodium (Porcine) 5,000 unit 06/15/18 22:00 06/18/18 14:11 Heparin - SQ 5,000 unit TID [facility] Administration Isosorbide Mononitrate 30 mg 06/16/18 10:00 06/18/18 13:02 Imdur - PO 30 mg DAILY [facility] Administration Lisinopril 20 mg 06/16/18 14:45 06/18/18 13:01 Prinivil PO 20 mg DAILY [facility] Administration Metoprolol Succinate 75 mg 06/18/18 07:38 06/18/18 13:00 Toprol Xl - PO 75 mg BID [facility] Administration Ondansetron HCl 4 mg 06/15/18 19:50 Zofran Injection IVPUSH Q6H PRN NAUSEA AND/OR VOMITING Promethazine HCl 12.5 mg 06/15/18 19:50 Phenergan Injection - IVPUSH Q6H PRN NAUSEA-FOR RESCUE AFTER 15 MIN Impression 1. ESRD 2. HTN 3. HD access malfunction 4. anemia 5. right arm swelling 6. non compliance Plan - HD today - pt schedule for OR tomorrow - monitor bp - discussed plan with pt
--- NOTE | 2018-06-18 22:20 | OP ---
DATE OF OPERATION: 06/15/2018 SURGEON: Charlie Curry MD PROCEDURE: Venogram of the right brachial and axillary veins and venogram of the superior vena cava. PREOPERATIVE DIAGNOSIS: Venous hypertension of right arm with occlusion of the subclavian vein. POSTOPERATIVE DIAGNOSIS: Venous hypertension of right arm with occlusion of the subclavian vein. ANESTHESIA: Fractional. ANESTHESIOLOGIST: Em Moura MD OPERATIVE FINDINGS: There was complete occlusion of the right subclavian innominate veins and superior vena cava with multiple collaterals along the chest wall and neck. OPERATIVE PROCEDURE: Following routine patient identification, intravenous sedation was established. Timeout was performed. The right groin and right arm were prepped with ChloraPrep and sterilely draped. Using real-time duplex imaging, the right common femoral vein was identified. Lidocaine was infiltrated in the skin over the vein. The vein was cannulated with a micropuncture needle. A wire was passed proximally under fluoroscopic guidance, and the needle was exchanged for a 5-Mont[place]grin catheter. A J-wire was then advanced through the catheter, and the catheter exchanged for a 6-[place] sheath. An angled wire and catheter were then advanced proximally through the inferior vena cava and into the right atrium and into the superior vena cava. Venography was performed which showed patency of the left innominate vein but no identifiable right innominate or subclavian vein was seen. Attempts to cannulate an orifice with the wire was unsuccessful. Therefore, the right arm was imaged with ultrasound and the brachial vein identified. Lidocaine was administered in the skin, and the micropuncture needled used to cannulate the vein under direct visualization. Wire was passed proximally, and then a catheter was exchanged for the wire, and then the catheter was examined over the wire for a 5-Montenegrin sheath. Venography was performed with the above-noted findings. A wire and catheter were then passed to the point of occlusion in the subclavian vein. The wire and catheter were then advanced into the occluded segment with great resistance to passage of the wire and catheter. Eventually, the wire was advanced into the occluded portion of the superior vena cava to the level of the entry of the left innominate vein. Attempts to get the wire to gain intraluminal position were unsuccessful. The tract around the wire was dilated but again, a catheter could not be passed over the wire into the superior vena cava. After multiple attempts, decision was made to terminate the procedure. All wires and catheters were removed. Pressure was applied at both sites until bleeding ceased. Sterile dressings were applied, and the patient was taken to the recovery room in stable condition. CHARLIE CURRY M.D. [id number]
[2018-06-19] MEDS: HEPARIN NA (PORCINE) 5,000 UNITS/ML 1ML VIAL SQ SCH ×2 (05:59→22:07)
[2018-06-19 06:57] LABS: HEMATOCRIT 32.9 % (35.4-49); HEMOGLOBIN 10.9 GM/dL (11.7-16.9); MCH 28.6 pg (25.7-33.7); MCHC 33.2 g/dl (32.0-35.9); MEAN CELL VOLUME 86.1 fl (80-96); MEAN PLT VOLUME 7.9 fl (7.5-11.1); PLATELET COUNT 161 K/MM3 (134-434); RBC 3.82 M/mm3 (4.00-5.60); RDW 17.5 % (11.9-15.9); WHITE BLOOD COUNT 5.1 K/mm3 (4.0-10.0)
[2018-06-19 07:22] LABS: ANION GAP 8 (8-16); BLOOD UREA NITROGEN 26 mg/dL (7-18); CHLORIDE 98 mmol/L (98-107); CO2 32 mmol/L (21-32); CREATININE 7.5 mg/dL (0.7-1.3); GLUCOSE,RANDOM 82 mg/dL (74-106); POTASSIUM 4.4 mmol/L (3.5-5.1); SODIUM 138 mmol/L (136-145)
--- NOTE | 2018-06-19 08:06 | PN ---
Teaching Attending Note Name of Resident: Ines Cuba ATTENDING PHYSICIAN STATEMENT I saw and evaluated the patient. I reviewed the resident's note and discussed the case with the resident. I agree with the resident's findings and plan as documented. SUBJECTIVE: Patient is feeling better with no acute distress, going for his procedure this morning. OBJECTIVE: Vital Signs Temperature 98.4 F 06/19/18 05:58 Pulse Rate 64 06/19/18 05:58 Respiratory Rate 20 06/19/18 05:58 Blood Pressure 145/82 06/19/18 05:58 O2 Sat by Pulse Oximetry (%) 95 06/18/18 22:00 CBCD WBC 5.1 K/mm3 (4.0-10.0) 06/19/18 06:30 RBC 3.82 M/mm3 (4.00-5.60) L 06/19/18 06:30 Hgb 10.9 GM/dL (11.7-16.9) L 06/19/18 06:30 Hct 32.9 % (35.4-49) L 06/19/18 06:30 MCV 86.1 fl (80-96) 06/19/18 06:30 MCHC 33.2 g/dl (32.0-35.9) 06/19/18 06:30 RDW 17.5 % (11.9-15.9) H 06/19/18 06:30 Plt Count 161 K/MM3 (134-434) 06/19/18 06:30 MPV 7.9 fl (7.5-11.1) 06/19/18 06:30 CMP Sodium 138 mmol/L (136-145) 06/19/18 06:30 Potassium 4.4 mmol/L (3.5-5.1) 06/19/18 06:30 Chloride 98 mmol/L (98-107) 06/19/18 06:30 Carbon Dioxide 32 mmol/L (21-32) 06/19/18 06:30 Anion Gap 8 (8-16) 06/19/18 06:30 BUN 26 mg/dL (7-18) H 06/19/18 06:30 Creatinine 7.5 mg/dL (0.7-1.3) H 06/19/18 06:30 Creat Clearance w eGFR 7.56 (>60) 06/19/18 06:30 Random Glucose 82 mg/dL (74-106) D 06/19/18 06:30 Calcium 8.0 mg/dL (8.5-10.1) L 06/19/18 06:30 Total Bilirubin 0.4 mg/dL (0.2-1.0) 06/14/18 07:50 AST 11 U/L (15-37) L 06/14/18 07:50 ALT 9 U/L (12-78) L 06/14/18 07:50 Alkaline Phosphatase 130 U/L (45-117) H 06/14/18 07:50 Total Protein 7.0 g/dl (6.4-8.2) 06/14/18 07:50 Albumin 3.4 g/dl (3.4-5.0) 06/14/18 07:50 Current Medications Generic Name Dose Route Start Last Admin Trade Name Freq PRN Reason Stop Dose Admin Acetaminophen 650 mg 06/15/18 20:05 Tylenol - PO Q4H PRN PAIN LEVEL 1-5 Amlodipine Besylate 10 mg 06/16/18 10:00 06/18/18 13:01 Norvasc - PO 10 mg DAILY [facility] Administration Calcium Carbonate/Cholecalciferol 2 tab 06/15/18 22:00 06/18/18 22:12 Os-Justin 500+D - PO 2 tab BID [facility] Administration Fentanyl 50 mcg 06/15/18 19:50 Sublimaze Injection - IVPUSH [id number] PRN PAIN-PACU ORDER X 4 DOSES ONLY Heparin Sodium (Porcine) 5,000 unit 06/15/18 22:00 06/19/18 05:59 Heparin - SQ 5,000 unit TID [facility] Administration Isosorbide Mononitrate 30 mg 06/16/18 10:00 06/18/18 13:02 Imdur - PO 30 mg DAILY [facility] Administration Lisinopril 20 mg 06/16/18 14:45 06/18/18 13:01 Prinivil PO 20 mg DAILY [facility] Administration Metoprolol Succinate 75 mg 06/18/18 07:38 06/18/18 22:12 Toprol Xl - PO 75 mg BID [facility] Administration Ondansetron HCl 4 mg 06/15/18 19:50 Zofran Injection IVPUSH Q6H PRN NAUSEA AND/OR VOMITING Promethazine HCl 12.5 mg 06/15/18 19:50 Phenergan Injection - IVPUSH Q6H PRN NAUSEA-FOR RESCUE AFTER 15 MIN Home Medications Medication Instructions Recorded Amlodipine Besylate [Norvasc -] 10 mg PO DAILY #30 tablet 03/27/17 Isosorbide Mononitrate [Imdur -] 30 mg PO DAILY #30 tab 06/01/17 Lisinopril 20 mg PO DAILY 02/09/18 Metoprolol Tartrate [Lopressor -] 25 mg PO BID 02/09/18 PE: per resident's note ASSESSMENT AND PLAN: 58 y/o man with h/o ESRD on HD, asthma, GERD and hypertension who presented with worsening RUE edema and pain # Acute RUE edema due to thrombosis of extremity proximal veins. s/p attempted revascularization, for ligation of the Right AVF. Patient is going for new left AVF on Friday. Vascular surgeon is on the case. # ESRD: on HD # HTN: cont home meds. DVT px: heparin will hold the dose now.
[2018-06-19] MEDS: amLODIPine BESYLATE 10 MG TABLET (FP) PO SCH (10:02)
[2018-06-19] MEDS: LISINOPRIL 20 MG TABLET (FP) PO SCH (10:02)
[2018-06-19] MEDS: CALCIUM 500MG/VIT-D 200 UNITS COMBO TABLET (FP) PO SCH ×2 (10:02→21:07)
[2018-06-19] MEDS: ISOSORBIDE MONONITRATE 30 MG TAB.SR.24H (FP) PO SCH (10:02)
[2018-06-19] MEDS ORDERED: LIDOCAINE HCL 1%, 10 MG/ML (20ML VIAL) ONE (10:45)
[2018-06-19] MEDS ORDERED: PAPAVERINE HCL 30 MG/1 ML 10 ML VIAL NR ONE (10:45)
[2018-06-19] MEDS ORDERED: HEPARIN NA (PORCINE) 5,000 UNITS/ML 1ML VIAL ONE (10:45)
[2018-06-19] MEDS ORDERED: POVIDONE-IODINE OINTMENT 10% - 28.4 GM TUBE ONE (10:45)
[2018-06-19] MEDS ORDERED: LIDOCAINE HCL 1%, 10 MG/ML (20ML VIAL) INF ONE (11:23)
[2018-06-19] MEDS ORDERED: MIDAZOLAM HCL 2 MG/2 ML SINGLE DOSE VIAL ONE ×2 (11:25→11:32)
[2018-06-19] MEDS ORDERED: PROPOFOL 20 ML ONE ×2 (11:33→12:36)
--- NOTE | 2018-06-19 13:37 | OP ---
Operative Note - Note: Operative Date: 06/19/18 Pre-Operative Diagnosis: Venous hypertension right arm. ESRD on HD Operation: Ligation right arm AV fistula. Creation left arm AV fistula with balloon angioplasty of cephalic vein. Findings: Right arm brachial-cephalic fistula with central vein occlusion and arm swelling. Left cephalic vein patent from wrist to elbow with basilic vein runoff. Vein was stenotic in the forearm. Post-Operative Diagnosis: Same as Pre-op Surgeon: Charlie Bates Press Operator Assistant: Lennie Ramírez Anesthesiologist/BILLING CLERK: Deanna Bryson MD Anesthesia: Fractional Estimated Blood Loss (mls): 25
[2018-06-19] MEDS ORDERED: ACETAMINOPHEN 325 MG TABLET (FP) PO PRN ×2 (13:55)
[2018-06-19] MEDS ORDERED: oxyCODONE HCL 5 MG TABLET PO PRN ×2 (13:55)
--- NOTE | 2018-06-19 14:34 | PN ---
Physical Exam: SUBJECTIVE: Patient is a 58 y/o male who has a PMHX of asthma, HTN, DM, ESRD on dialysis who presents with a central vein occlusion. Patient's surgery scheduled for today. OBJECTIVE: Vital Signs Period Temp Pulse Resp BP Sys/Beyer Pulse Ox Last 24 Hr 97.7 F-98.5 F 64-88 18-22 117-146/49-98 95-96 GENERAL: Awake, alert, and fully oriented, in no acute distress. EYES: PERRLA, extraocular movements intact EARS, NOSE, THROAT: oropharynx clear without exudates. Moist mucous membranes. NECK: Normal range of motion, supple without lymphadenopathy LUNGS: Breath sounds equal, clear to auscultation bilaterally. HEART: Regular rate and rhythm, normal S1 and S2 ABDOMEN: Soft, nontender, not distended UPPER EXTREMITIES: R extremity swelling throughout the limb. R arm AV fistula, thrill palpated. 3+ pitting edema, bruit heard over fistula, 5/5 muscle strength , sensation intact Laboratory Results - last 24 hr 06/19/18 06/19/18 06:30 06:30 WBC 5.1 RBC 3.82 L Hgb 10.9 L Hct 32.9 L MCV 86.1 MCH 28.6 MCHC 33.2 RDW 17.5 H Plt Count 161 MPV 7.9 Sodium 138 Potassium 4.4 Chloride 98 Carbon Dioxide 32 Anion Gap 8 BUN 26 H Creatinine 7.5 H Creat Clearance w eGFR 7.56 Random Glucose 82 D Calcium 8.0 L Active Medications Generic Name Dose Route Start Last Admin Trade Name Freq PRN Reason Stop Dose Admin Acetaminophen 325 mg 06/19/18 13:55 Tylenol - PO 06/22/18 13:54 Q4H PRN PAIN 1-5 Acetaminophen 650 mg 06/19/18 13:55 Tylenol - PO 06/22/18 13:54 Q4H PRN PAIN 6-10 Amlodipine Besylate 10 mg 06/16/18 10:00 06/19/18 10:02 Norvasc - PO 10 mg DAILY [facility] Administration Calcium Carbonate/Cholecalciferol 2 tab 06/15/18 22:00 06/19/18 10:02 Os-Justin 500+D - PO Not Given BID [facility] Fentanyl 50 mcg 06/15/18 19:50 Sublimaze Injection - IVPUSH [id number] PRN PAIN-PACU ORDER X 4 DOSES ONLY Heparin Sodium (Porcine) 5,000 unit 06/15/18 22:00 06/19/18 05:59 Heparin - SQ 5,000 unit TID [facility] Administration Isosorbide Mononitrate 30 mg 06/16/18 10:00 06/19/18 10:02 Imdur - PO 30 mg DAILY [facility] Administration Lisinopril 20 mg 06/16/18 14:45 06/19/18 10:02 Prinivil PO 20 mg DAILY [facility] Administration Metoprolol Succinate 75 mg 06/18/18 07:38 06/19/18 10:01 Toprol Xl - PO 75 mg BID [facility] Administration Ondansetron HCl 4 mg 06/15/18 19:50 Zofran Injection IVPUSH Q6H PRN NAUSEA AND/OR VOMITING Oxycodone HCl 5 mg 06/19/18 13:55 Roxicodone - PO Q4H PRN PAIN 1-5 Oxycodone HCl 10 mg 06/19/18 13:55 Roxicodone - PO Q4H PRN PAIN 6-10 ASSESSMENT/PLAN: Patient is a 58 y/o male who has a PMHX of asthma, HTN, DM, ESRD (Dialysis / Fri/Fri) who presents with right arm pain and swelling. #R arm swelling 2/2 to occlusions : - discussed with Dr. Bates - proximal occlusion of the cephalic vein as well as occlusion of the right subclavian vein. - 06/20 scheduled for revascularization of R arm fistula, if not possible L arm fistula creation - Acetaminophen for pain - keep arm elevated #CKD - Patient for dialysis today - consulted Dr. Richard keller to use for dialysis #HTN -continue lisinopril 20 mg and amlodipine 10 mg, metoprolol succinate increased to 75 BID #DVT ppx - heparin SQ #Disposition: reevaluate after Friday surgery Visit type - Emergency Visit Emergency Visit: No - New Patient This patient is new to me today: No - Critical Care Critical Care patient: No
[2018-06-19] MEDS ORDERED: ONDANSETRON 4 MG/2 ML VIAL IVPUSH PRN (14:35)
[2018-06-19] MEDS ORDERED: SODIUM CHLORIDE 250 ML IV PRN (15:44)
--- NOTE | 2018-06-19 15:44 | PN ---
Progress Note, Physician History of Present Illness: Pt seen and examined at bedside. He is in the recovery room. - Current Medication List Current Medications: Active Medications Acetaminophen (Tylenol -) 325 mg PO Q4H PRN PRN Reason: PAIN 1-5 Stop: 06/22/18 13:54 Acetaminophen (Tylenol -) 650 mg PO Q4H PRN PRN Reason: PAIN 6-10 Stop: 06/22/18 13:54 Amlodipine Besylate (Norvasc -) 10 mg PO DAILY [facility] Calcium Carbonate/Cholecalciferol (Os-Justin 500+D -) 2 tab PO BID [facility] Fentanyl (Sublimaze Injection -) 50 mcg IVPUSH [id number] PRN PRN Reason: PAIN-PACU ORDER X 4 DOSES ONLY Heparin Sodium (Porcine) (Heparin -) 5,000 unit SQ TID [facility] Isosorbide Mononitrate (Imdur -) 30 mg PO DAILY [facility] Lisinopril (Prinivil) 20 mg PO DAILY [facility] Metoprolol Succinate (Toprol Xl -) 75 mg PO BID [facility] Ondansetron HCl (Zofran Injection) 4 mg IVPUSH Q6H PRN PRN Reason: NAUSEA AND/OR VOMITING Oxycodone HCl (Roxicodone -) 5 mg PO Q4H PRN PRN Reason: PAIN 1-5 Oxycodone HCl (Roxicodone -) 10 mg PO Q4H PRN PRN Reason: PAIN 6-10 - Objective Vital Signs: Vital Signs Temperature 98.7 F 06/19/18 14:35 Pulse Rate 63 06/19/18 14:35 Respiratory Rate 16 06/19/18 14:35 Blood Pressure 153/89 06/19/18 14:35 O2 Sat by Pulse Oximetry (%) 96 06/19/18 14:35 Constitutional: Yes: Calm Eyes: Yes: Conjunctiva Clear HENT: Yes: Atraumatic Neck: Yes: Supple Cardiovascular: Yes: S1, S2 Respiratory: Yes: CTA Bilaterally Gastrointestinal: Yes: Normal Bowel Sounds, Soft Genitourinary: Yes: WNL Musculoskeletal: Yes: WNL Edema: RUE: 1+ Neurological: Yes: Oriented Psychiatric: Yes: Oriented Labs: CBC, BMP 06/19/18 06:30 06/19/18 06:30 INR, PTT INR 1.06 (0.82-1.09) 06/13/18 16:30 Problem List - Problems (1) Swollen arm Code(s): M79.89 - OTHER SPECIFIED SOFT TISSUE DISORDERS (2) ESRD (end stage renal disease) Code(s): N18.6 - END STAGE RENAL DISEASE Assessment/Plan Current Medications Generic Name Dose Route Start Last Admin Trade Name Freq PRN Reason Stop Dose Admin Acetaminophen 325 mg 06/19/18 13:55 Tylenol - PO 06/22/18 13:54 Q4H PRN PAIN 1-5 Acetaminophen 650 mg 06/19/18 13:55 Tylenol - PO 06/22/18 13:54 Q4H PRN PAIN 6-10 Amlodipine Besylate 10 mg 06/20/18 10:00 Norvasc - PO DAILY [facility] Calcium Carbonate/Cholecalciferol 2 tab 06/19/18 22:00 Os-Justin 500+D - PO BID [facility] Fentanyl 50 mcg 06/19/18 14:35 Sublimaze Injection - IVPUSH [id number] PRN PAIN-PACU ORDER X 4 DOSES ONLY Heparin Sodium (Porcine) 5,000 unit 06/19/18 22:00 Heparin - SQ TID [facility] Isosorbide Mononitrate 30 mg 06/20/18 10:00 Imdur - PO DAILY [facility] Lisinopril 20 mg 06/20/18 10:00 Prinivil PO DAILY [facility] Metoprolol Succinate 75 mg 06/19/18 22:00 Toprol Xl - PO BID [facility] Ondansetron HCl 4 mg 06/19/18 14:35 Zofran Injection IVPUSH Q6H PRN NAUSEA AND/OR VOMITING Oxycodone HCl 5 mg 06/19/18 13:55 Roxicodone - PO Q4H PRN PAIN 1-5 Oxycodone HCl 10 mg 06/19/18 13:55 Roxicodone - PO Q4H PRN PAIN 6-10 Impression 1. ESRD 2. HTN 3. HD access malfunction 4. anemia 5. right arm swelling 6. non compliance Plan - ligation or right arm fistula - s/p creation of left arm fistula - HD in am - monitor bp - discussed plan with pt
--- NOTE | 2018-06-19 16:23 | SURG ---
Surgery Chief Technician Note Chief Technician: Lennie Ramírez PA-C Date of Service: 06/19/18 Diagnosis: Venous hypertension right arm. ESRD on HD Procedure: Ligation right arm AV fistula. Creation left arm AV fistula with balloon angioplasty of cephalic vein I was present for the entirety of the operative procedure. For further detail, please refer to operative report. Visit type - Case Type Case Type: ED Admission - Emergency Emergency Visit: Yes ED Registration Date: 06/11/18 Care time: The patient presented to the Emergency Department on the above date and was hospitalized for further evaluation of their emergent condition. - New patient This patient is new to me today: Yes Date on this admission: 06/19/18
[2018-06-20] MEDS: HEPARIN NA (PORCINE) 5,000 UNITS/ML 1ML VIAL SQ SCH ×3 (05:46→22:24)
[2018-06-20 10:04] LABS: HEMOGLOBIN 10.5 GM/dL (11.7-16.9); MCH 28.5 pg (25.7-33.7); MEAN CELL VOLUME 86.4 fl (80-96); PLATELET COUNT 183 K/MM3 (134-434); RDW 17.1 % (11.9-15.9); WHITE BLOOD COUNT 6.2 K/mm3 (4.0-10.0)
--- NOTE | 2018-06-20 10:15 | PN ---
Progress Note (short form) - Note Progress Note: RENAL Awake and alert being dialyzed now denies complaints Last Vital Signs Temp Pulse Resp BP Pulse Ox 98.4 F 63 18 181/98 96 06/20/18 06:00 06/20/18 06:00 06/20/18 06:00 06/20/18 06:00 06/19/18 21:00 lungs clear cvs s1s2 rr abd soft ext right upper ext is bandaged permcath os on left chest Current Medications Generic Name Dose Route Start Last Admin Trade Name Freq PRN Reason Stop Dose Admin Acetaminophen 325 mg 06/19/18 13:55 Tylenol - PO 06/22/18 13:54 Q4H PRN PAIN 1-5 Acetaminophen 650 mg 06/19/18 13:55 06/19/18 22:06 Tylenol - PO 06/22/18 13:54 650 mg Q4H PRN Administration PAIN 6-10 Amlodipine Besylate 10 mg 06/20/18 10:00 Norvasc - PO DAILY [facility] Calcium Carbonate/Cholecalciferol 2 tab 06/19/18 22:00 06/19/18 21:07 Os-Justin 500+D - PO 2 tab BID [facility] Administration Epoetin Refugio 4,000 unit 06/20/18 15:44 Epogen - IVPUSH 06/20/18 15:45 ONCE ONE Fentanyl 50 mcg 06/19/18 14:35 Sublimaze Injection - IVPUSH [id number] PRN PAIN-PACU ORDER X 4 DOSES ONLY Heparin Sodium (Porcine) 5,000 unit 06/19/18 22:00 06/20/18 05:46 Heparin - SQ 5,000 unit TID [facility] Administration Sodium Chloride 250 mls @ 3,000 mls/hr 06/19/18 15:44 Normal Saline - IV 06/20/18 15:44 PRN PRN Hypotension during Dialysis Isosorbide Mononitrate 30 mg 06/20/18 10:00 Imdur - PO DAILY [facility] Lisinopril 20 mg 06/20/18 10:00 Prinivil PO DAILY [facility] Metoprolol Succinate 75 mg 06/19/18 22:00 06/19/18 21:07 Toprol Xl - PO 75 mg BID [facility] Administration Ondansetron HCl 4 mg 06/19/18 14:35 Zofran Injection IVPUSH Q6H PRN NAUSEA AND/OR VOMITING Oxycodone HCl 5 mg 06/19/18 13:55 Roxicodone - PO Q4H PRN PAIN 1-5 Oxycodone HCl 10 mg 06/19/18 13:55 06/19/18 22:04 Roxicodone - PO 10 mg Q4H PRN Administration PAIN 6-10 Impression 1. ESRD 2. HTN 3. HD access malfunction 4. anemia 5. right arm swelling 6. non compliance Plan - ligation or right arm fistula - s/p creation of left arm fistula - HD using left PC - monitor bp -possible dc today MV
[2018-06-20 10:35] LABS: CHLORIDE 104 mmol/L (98-107); POTASSIUM 4.3 mmol/L (3.5-5.1); SODIUM 141 mmol/L (136-145)
[2018-06-20 10:40] LABS: ANION GAP 9 (8-16); BLOOD UREA NITROGEN 42 mg/dL (7-18); CALCIUM 7.5 mg/dL (8.5-10.1); CO2 28 mmol/L (21-32); GLUCOSE,RANDOM 155 mg/dL (74-106)
[2018-06-20] MEDS: LISINOPRIL 20 MG TABLET (FP) PO SCH (11:15)
[2018-06-20] MEDS: amLODIPine BESYLATE 10 MG TABLET (FP) PO SCH (11:15)
[2018-06-20 11:54] LABS: CREATININE 10.2 mg/dL (0.7-1.3)
[2018-06-20] MEDS ORDERED: EPOETIN ALFA 2,000 UNIT/1 ML VIAL IVPUSH ONE (12:00)
[2018-06-20] MEDS: LABETALOL HCL 200 MG TABLET (FP) PO SCH ×2 (14:17→22:24)
[2018-06-20] MEDS: CALCIUM 500MG/VIT-D 200 UNITS COMBO TABLET (FP) PO SCH ×2 (14:55→22:24)
[2018-06-20] MEDS: ISOSORBIDE MONONITRATE 30 MG TAB.SR.24H (FP) PO SCH (14:55)
--- NOTE | 2018-06-20 19:21 | PN ---
Progress Note (short form) - Note Progress Note: Patient is having an elevated blood pressure, was called by the nurse. Patient denies having any chest pain or palpitations. no nausea or vomiting. Vital Signs Temperature 97.8 F 06/20/18 15:04 Pulse Rate 68 06/20/18 15:04 Respiratory Rate 18 06/20/18 15:04 Blood Pressure 160/96 06/20/18 18:15 O2 Sat by Pulse Oximetry (%) 96 06/20/18 09:00 GENERAL: Awake, alert, and fully oriented, in no acute distress. EYES: PERRLA, extraocular movements intact EARS, NOSE, THROAT: oropharynx clear without exudates. Moist mucous membranes. NECK: Normal range of motion, supple without lymphadenopathy LUNGS: Breath sounds equal, clear to auscultation bilaterally. HEART: Regular rate and rhythm, normal S1 and S2 ABDOMEN: Soft, nontender, not distended EXTREMITIES: R extremity positive for AV fistula, with left new fistula by Dr. Friedman 06/19/2018 CBCD WBC 6.2 K/mm3 (4.0-10.0) 06/20/18 09:20 RBC 3.70 M/mm3 (4.00-5.60) L 06/20/18 09:20 Hgb 10.5 GM/dL (11.7-16.9) L 06/20/18 09:20 Hct 32.0 % (35.4-49) L 06/20/18 09:20 MCV 86.4 fl (80-96) 06/20/18 09:20 MCHC 33.0 g/dl (32.0-35.9) 06/20/18 09:20 RDW 17.1 % (11.9-15.9) H 06/20/18 09:20 Plt Count 183 K/MM3 (134-434) 06/20/18 09:20 MPV 8.0 fl (7.5-11.1) 06/20/18 09:20 CMP Sodium 141 mmol/L (136-145) 06/20/18 09:20 Potassium 4.3 mmol/L (3.5-5.1) 06/20/18 09:20 Chloride 104 mmol/L (98-107) 06/20/18 09:20 Carbon Dioxide 28 mmol/L (21-32) 06/20/18 09:20 Anion Gap 9 (8-16) 06/20/18 09:20 BUN 42 mg/dL (7-18) H 06/20/18 09:20 Creatinine 10.2 mg/dL (0.7-1.3) H* 06/20/18 09:20 Creat Clearance w eGFR 5.30 (>60) 06/20/18 09:20 Random Glucose 155 mg/dL (74-106) H D 06/20/18 09:20 Calcium 7.5 mg/dL (8.5-10.1) L 06/20/18 09:20 Total Bilirubin 0.4 mg/dL (0.2-1.0) 06/14/18 07:50 AST 11 U/L (15-37) L 06/14/18 07:50 ALT 9 U/L (12-78) L 06/14/18 07:50 Alkaline Phosphatase 130 U/L (45-117) H 06/14/18 07:50 Total Protein 7.0 g/dl (6.4-8.2) 06/14/18 07:50 Albumin 3.4 g/dl (3.4-5.0) 06/14/18 07:50 Current Medications Generic Name Dose Route Start Last Admin Trade Name Freq PRN Reason Stop Dose Admin Acetaminophen 325 mg 06/19/18 13:55 Tylenol - PO 06/22/18 13:54 Q4H PRN PAIN 1-5 Acetaminophen 650 mg 06/19/18 13:55 06/19/18 22:06 Tylenol - PO 06/22/18 13:54 650 mg Q4H PRN Administration PAIN 6-10 Amlodipine Besylate 10 mg 06/20/18 10:00 06/20/18 11:15 Norvasc - PO 10 mg DAILY [facility] Administration Calcium Carbonate/Cholecalciferol 2 tab 06/19/18 22:00 06/20/18 14:55 Os-Justin 500+D - PO 2 tab BID [facility] Administration Fentanyl 50 mcg 06/19/18 14:35 Sublimaze Injection - IVPUSH [id number] PRN PAIN-PACU ORDER X 4 DOSES ONLY Heparin Sodium (Porcine) 5,000 unit 06/19/18 22:00 06/20/18 14:17 Heparin - SQ 5,000 unit TID [facility] Administration Isosorbide Mononitrate 30 mg 06/20/18 10:00 06/20/18 14:55 Imdur - PO 30 mg DAILY [facility] Administration Labetalol HCl 200 mg 06/20/18 14:15 06/20/18 14:17 Normodyne - PO 200 mg TID [facility] Administration Lisinopril 20 mg 06/20/18 10:00 06/20/18 11:15 Prinivil PO 20 mg DAILY [facility] Administration Ondansetron HCl 4 mg 06/19/18 14:35 Zofran Injection IVPUSH Q6H PRN NAUSEA AND/OR VOMITING Oxycodone HCl 5 mg 06/19/18 13:55 Roxicodone - PO Q4H PRN PAIN 1-5 Oxycodone HCl 10 mg 06/19/18 13:55 06/19/18 22:04 Roxicodone - PO 10 mg Q4H PRN Administration PAIN 6-10 Home Medications Medication Instructions Recorded Amlodipine Besylate [Norvasc -] 10 mg PO DAILY #30 tablet 03/27/17 Isosorbide Mononitrate [Imdur -] 30 mg PO DAILY #30 tab 06/01/17 Lisinopril 20 mg PO DAILY 02/09/18 Metoprolol Tartrate [Lopressor -] 25 mg PO BID 02/09/18 ASSESSMENT AND PLAN: 58 y/o man with h/o ESRD on HD, asthma, GERD and hypertension who presented with worsening RUE edema and pain # POD#1 s/p Ligation right arm AV fistula. Creation left arm AV fistula with balloon angioplasty of cephalic vein ( 06/19/2018) Vascular surgeon is on the case. # Hypertensive Urgency: BP meds were changed from Lopressor to Labetolol 200mg tid , as per covering for # ESRD: on HD # HTN: cont home meds. DVT px: heparin will hold the dose now Visit type - Emergency Visit Emergency Visit: Yes ED Registration Date: 06/11/18 Care time: The patient presented to the Emergency Department on the above date and was hospitalized for further evaluation of their emergent condition. - New Patient This patient is new to me today: No - Critical Care Critical Care patient: No - Discharge Referral Referred to [facility] Med P.C.: No
[2018-06-21] MEDS: HEPARIN NA (PORCINE) 5,000 UNITS/ML 1ML VIAL SQ SCH ×2 (05:20→13:09)
[2018-06-21] MEDS: LABETALOL HCL 200 MG TABLET (FP) PO SCH ×2 (05:20→13:09)
[2018-06-21] MEDS: ISOSORBIDE MONONITRATE 30 MG TAB.SR.24H (FP) PO SCH (09:00)
[2018-06-21] MEDS: LISINOPRIL 20 MG TABLET (FP) PO SCH (09:00)
[2018-06-21] MEDS: amLODIPine BESYLATE 10 MG TABLET (FP) PO SCH (09:00)
[2018-06-21] MEDS: CALCIUM 500MG/VIT-D 200 UNITS COMBO TABLET (FP) PO SCH (09:01)
--- NOTE | 2018-06-21 10:29 | DS ---
Physical Exam: SUBJECTIVE: Patient seen and examined at bedside. No current complaints. OBJECTIVE: Vital Signs Period Temp Pulse Resp BP Sys/Beyer Pulse Ox Last 24 Hr 97.8 F-98.3 F 58-98 18-19 149-219/79-157 96 PHYSICAL EXAM GENERAL: Awake, alert, and fully oriented, in no acute distress. EYES: PERRLA, extraocular movements intact EARS, NOSE, THROAT: oropharynx clear without exudates. Moist mucous membranes. NECK: Normal range of motion, supple without lymphadenopathy LUNGS: Breath sounds equal, clear to auscultation bilaterally. HEART: Regular rate and rhythm, normal S1 and S2 ABDOMEN: Soft, nontender, not distended UPPER EXTREMITIES: R extremity swelling improved. R arm AV fistula, thrill palpated. 3+ pitting edema, bruit heard over fistula, 5/5 muscle strength, sensation intact New L arm AV fistula LABS Laboratory Results - last 24 hr 06/20/18 09:20 Sodium 141 Potassium 4.3 Chloride 104 Carbon Dioxide 28 Anion Gap 9 BUN 42 H Creatinine 10.2 H* Creat Clearance w eGFR 5.30 Random Glucose 155 H D Calcium 7.5 L HOSPITAL COURSE: Date of Admission:06/11/18 Date of Discharge: 06/21/18 58 yo M w PMhx asthma, HTN, on dialysis presented to the hospital with R arm pain and swelling. He had a fistula created on his RUE [address] shaver but it did not work and his arm has been swelling ever since, also it has not yet matured (< 6mo). He received dialysis through a port on his left chest and got dialyzed prior to admission. He has pain with any motion of the hand and says he feels some tingling in the hand. Vascular (Dr. Bates) evaluated patient and determined there was an occlusion of central vein. Patient went for attempted recannulization of the vessel, which was not successful, and thus patient went for new AVF creation on the left. Patient's blood pressure was difficult to control and so he was started on labetalol 200mg TID, which semi-successfully controlled his pressure. Patient was discharged on labetalol 300mg TID after his blood pressure was found to be 150/ 93 and told to closely follow with his PCP, his investigative agent, and to make an appointment with the vascular surgeon Dr. Bates for evaluation of fistula within 2 weeks. He was instructed to continue dialysis as previously. Minutes to complete discharge: 36 Discharge Summary Reason For Visit: SWELLING OF UPPER EXTREMITY,DIALYSIS CATHER CLOT O Current Active Problems Dialysis catheter clot or failure (Acute) Swelling of right upper extremity (Acute) Venous hypertension of upper extremity (Acute) Condition: Improved - Instructions Diet, Activity, Other Instructions: You were admitted to the hospital because you had swelling in your right arm. A ultrasound of your arm showed that there was a occlusion in two of your veins and this is what caused the swelling. You underwent surgery by Dr. Forrester who corrected this occlusion. You should continue to keep your arm elevated to help reduce the swelling. Keep incision clean and dry, the cristopher will be removed by Dr Bates in the office. You should follow up with Dr. Bates in 1 week to follow up with your fistula. It could take up to 6-8 weeks for your fistula to mature. You should follow up with Dr. Ramos to monitor your Kidney function. Continue your dialysis appointments as scheduled. For blood pressure, take labetalol 300mg three times a day (every 8 hours). Do not take your old medication metoprolol. You should follow up with your primary care physician within one week to discuss the changes in medication and if they are working for you. You should return to the Emergency Department if you have any worsening of symptoms, chest pain, shortness of breath, vomiting or diarrhea. Referrals: Juni Ramos MD [Staff Physician] - 1 Week Charlie Bates MD [Staff Physician] - 1 Week Disposition: HOME - Home Medications Comprehensive Discharge Medication List: Ambulatory Orders Amlodipine Besylate [Norvasc -] 10 mg PO DAILY #30 tablet 03/27/17 Isosorbide Mononitrate [Imdur -] 30 mg PO DAILY #30 tab 06/01/17 Lisinopril 20 mg PO DAILY 02/09/18 Labetalol HCl 300 mg PO TID #90 tablet 06/21/18 This patient is new to me today: No Emergency Visit: No Critical Care patient: No - Discharge Referral Referred to [facility] Med P.C.: No
--- NOTE | 2018-06-21 11:19 | PN ---
Teaching Attending Note Name of Resident: Moi Rincon ATTENDING PHYSICIAN STATEMENT I saw and evaluated the patient. I reviewed the resident's note and discussed the case with the resident. I agree with the resident's findings and plan as documented. SUBJECTIVE: patient's blood pressure better today , rechecked by me 150/93 , with HR of 78 OBJECTIVE: Vital Signs Temperature 98.0 F 06/21/18 08:29 Pulse Rate 79 06/21/18 08:29 Respiratory Rate 18 06/21/18 08:29 Blood Pressure 150/93 06/21/18 10:05 O2 Sat by Pulse Oximetry (%) 96 06/20/18 22:00 CBCD WBC 6.2 K/mm3 (4.0-10.0) 06/20/18 09:20 RBC 3.70 M/mm3 (4.00-5.60) L 06/20/18 09:20 Hgb 10.5 GM/dL (11.7-16.9) L 06/20/18 09:20 Hct 32.0 % (35.4-49) L 06/20/18 09:20 MCV 86.4 fl (80-96) 06/20/18 09:20 MCHC 33.0 g/dl (32.0-35.9) 06/20/18 09:20 RDW 17.1 % (11.9-15.9) H 06/20/18 09:20 Plt Count 183 K/MM3 (134-434) 06/20/18 09:20 MPV 8.0 fl (7.5-11.1) 06/20/18 09:20 CMP Sodium 141 mmol/L (136-145) 06/20/18 09:20 Potassium 4.3 mmol/L (3.5-5.1) 06/20/18 09:20 Chloride 104 mmol/L (98-107) 06/20/18 09:20 Carbon Dioxide 28 mmol/L (21-32) 06/20/18 09:20 Anion Gap 9 (8-16) 06/20/18 09:20 BUN 42 mg/dL (7-18) H 06/20/18 09:20 Creatinine 10.2 mg/dL (0.7-1.3) H* 06/20/18 09:20 Creat Clearance w eGFR 5.30 (>60) 06/20/18 09:20 Random Glucose 155 mg/dL (74-106) H D 06/20/18 09:20 Calcium 7.5 mg/dL (8.5-10.1) L 06/20/18 09:20 Total Bilirubin 0.4 mg/dL (0.2-1.0) 06/14/18 07:50 AST 11 U/L (15-37) L 06/14/18 07:50 ALT 9 U/L (12-78) L 06/14/18 07:50 Alkaline Phosphatase 130 U/L (45-117) H 06/14/18 07:50 Total Protein 7.0 g/dl (6.4-8.2) 06/14/18 07:50 Albumin 3.4 g/dl (3.4-5.0) 06/14/18 07:50 Current Medications Generic Name Dose Route Start Last Admin Trade Name Freq PRN Reason Stop Dose Admin Acetaminophen 325 mg 06/19/18 13:55 Tylenol - PO 06/22/18 13:54 Q4H PRN PAIN 1-5 Acetaminophen 650 mg 06/19/18 13:55 06/19/18 22:06 Tylenol - PO 06/22/18 13:54 650 mg Q4H PRN Administration PAIN 6-10 Amlodipine Besylate 10 mg 06/20/18 10:00 06/21/18 09:00 Norvasc - PO 10 mg DAILY WALTER Administration Calcium Carbonate/Cholecalciferol 2 tab 06/19/18 22:00 06/21/18 09:01 Os-Justin 500+D - PO 2 tab BID WALTER Administration Fentanyl 50 mcg 06/19/18 14:35 Sublimaze Injection - IVPUSH [id number] PRN PAIN-PACU ORDER X 4 DOSES ONLY Heparin Sodium (Porcine) 5,000 unit 06/19/18 22:00 06/21/18 05:20 Heparin - SQ 5,000 unit TID WALTER Administration Isosorbide Mononitrate 30 mg 06/20/18 10:00 06/21/18 09:00 Imdur - PO 30 mg DAILY WALTER Administration Labetalol HCl 300 mg 06/20/18 14:15 06/21/18 05:20 Normodyne - PO 200 mg TID WALTER Administration Lisinopril 20 mg 06/20/18 10:00 06/21/18 09:00 Prinivil PO 20 mg DAILY WALTER Administration Ondansetron HCl 4 mg 06/19/18 14:35 Zofran Injection IVPUSH Q6H PRN NAUSEA AND/OR VOMITING Oxycodone HCl 5 mg 06/19/18 13:55 Roxicodone - PO Q4H PRN PAIN 1-5 Oxycodone HCl 10 mg 06/19/18 13:55 06/19/18 22:04 Roxicodone - PO 10 mg Q4H PRN Administration PAIN 6-10 Home Medications Medication Instructions Recorded Amlodipine Besylate [Norvasc -] 10 mg PO DAILY #30 tablet 03/27/17 Isosorbide Mononitrate [Imdur -] 30 mg PO DAILY #30 tab 06/01/17 Lisinopril 20 mg PO DAILY 02/09/18 Labetalol HCl 300 mg PO TID #90 tablet 06/21/18 PE: per resident's note ASSESSMENT AND PLAN: 58 y/o man with h/o ESRD on HD, asthma, GERD and hypertension who presented with worsening RUE edema and pain # POD#2 s/p Ligation right arm AV fistula. Creation left arm AV fistula with balloon angioplasty of cephalic vein (06/19/2018) Vascular surgeon is on the case. # Hypertensive Urgency: BP meds were changed from Lopressor to Labetolol 200mg tid as per covering for , recheck blood pressure is 150/ 93, increased labetolol to 300mg po tid. discussed with Dr. Cardenas , will discharge the patient. follow up with on friday. # ESRD: on HD # HTN: cont home meds.
--- NOTE | 2018-06-21 13:42 | PN ---
Progress Note (short form) - Note Progress Note: RENAL Awake and alert denies complaints wants to go home Last Vital Signs Temp Pulse Resp BP Pulse Ox 98.0 F 79 18 172/95 96 06/21/18 08:29 06/21/18 08:29 06/21/18 08:29 06/21/18 08:29 06/21/18 09:00 lungs clear cvs s1s2 rr abd soft ext right upper ext is bandaged permcath os on left chest Current Medications Generic Name Dose Route Start Last Admin Trade Name Freq PRN Reason Stop Dose Admin Acetaminophen 325 mg 06/19/18 13:55 Tylenol - PO 06/22/18 13:54 Q4H PRN PAIN 1-5 Acetaminophen 650 mg 06/19/18 13:55 06/19/18 22:06 Tylenol - PO 06/22/18 13:54 650 mg Q4H PRN Administration PAIN 6-10 Amlodipine Besylate 10 mg 06/20/18 10:00 06/21/18 09:00 Norvasc - PO 10 mg DAILY WALTER Administration Calcium Carbonate/Cholecalciferol 2 tab 06/19/18 22:00 06/21/18 09:01 Os-Justin 500+D - PO 2 tab BID WALTER Administration Fentanyl 50 mcg 06/19/18 14:35 Sublimaze Injection - IVPUSH [id number] PRN PAIN-PACU ORDER X 4 DOSES ONLY Heparin Sodium (Porcine) 5,000 unit 06/19/18 22:00 06/21/18 13:09 Heparin - SQ 5,000 unit TID WALTER Administration Isosorbide Mononitrate 30 mg 06/20/18 10:00 06/21/18 09:00 Imdur - PO 30 mg DAILY WALTER Administration Labetalol HCl 200 mg 06/20/18 14:15 06/21/18 13:09 Normodyne - PO 200 mg TID WALTER Administration Lisinopril 20 mg 06/20/18 10:00 06/21/18 09:00 Prinivil PO 20 mg DAILY WALTER Administration Ondansetron HCl 4 mg 06/19/18 14:35 Zofran Injection IVPUSH Q6H PRN NAUSEA AND/OR VOMITING Oxycodone HCl 5 mg 06/19/18 13:55 Roxicodone - PO Q4H PRN PAIN 1-5 Oxycodone HCl 10 mg 06/19/18 13:55 06/19/18 22:04 Roxicodone - PO 10 mg Q4H PRN Administration PAIN 6-10 CBC, BMP 06/20/18 09:20 06/20/18 09:20 Impression 1. ESRD 2. HTN 3. HD access malfunction 4. anemia 5. right arm swelling 6. non compliance Plan - ligation or right arm fistula - s/p creation of left arm fistula - HD using left PC - monitor bp -possible dc today MV
[2018-06-21 16:37] VITALS: BP 135/82; PULSE 75; TEMP 98.2
--- NOTE | 2018-06-22 21:55 | OP ---
DATE OF OPERATION: 06/19/2018 SURGEON: Charlie Bates MD [employer]: REJI Ramírez PROCEDURE: 1. Ligation of right arm arteriovenous fistula. 2. Creation of left arm arteriovenous fistula. 3. Balloon angioplasty of the left cephalic vein. PREOPERATIVE DIAGNOSES: 1. Venous hypertension of the right arm due to arteriovenous fistula and proximal venous occlusion. 2. End-stage renal disease on hemodialysis. POSTOPERATIVE DIAGNOSES: 1. Venous hypertension of the right arm due to arteriovenous fistula and proximal venous occlusion. 2. End-stage renal disease on hemodialysis. ANESTHESIA: Fractional. ANESTHESIOLOGIST: Deanna Bryson MD OPERATIVE FINDINGS: The right brachiocephalic fistula was patent. There was known proximal occlusion of the right subclavian and innominate veins. In the left arm, the cephalic vein appeared patent on ultrasound from the elbow to the wrist. At exploration, the vein was found to be diffusely narrowed with several areas of severe stenosis. The radial artery was patent. OPERATIVE PROCEDURE: Following routine patient identification, intravenous sedation was established. The right arm was prepped with ChloraPrep. Timeout was performed. Lidocaine 1% was infiltrated over the distal AV fistula near the elbow, and a transverse incision was made. Subcutaneous tissues were divided using cautery for hemostasis. The vein was mobilized from the surrounding tissues with sharp and blunt dissection. The vein was then doubly ligated with 2-0 silk ties. The thrill in the vein fistula ceased. The wounds were then closed with interrupted suture of 3-0 Vicryl and skin cristopher. Sterile dressing was applied. Attention was then turned to the left arm. The left arm and hand were prepped with ChloraPrep. Lidocaine 1% was infiltrated over the cephalic vein distal to the wrist in the snuffbox. The vein was exposed through a longitudinal incision. The vein was mobilized from its bed. All side branches were ligated with silk ties and divided. The vein was ligated distally and incised. It was distended with heparin and papaverine solution. Attempt to pass a number 5 feeding tube met with resistance in the mid-forearm. Gentle distention with the heparin solution, I was able to pass the catheter proximally, but a number 8 feeding tube would not pass. An angle-tip Glidewire was then advanced through the vein and manipulated into the basilic vein at the elbow. A 4-mm x 120-mm angioplasty balloon was then dilated by hand with a 5-mL syringe. This was done from the elbow back to the distal end of the vein. The number 8 feeding tube now would pass easily up the vein, and the vein was filled with heparin solution. During the procedure, the patient was also given heparin intravenously. The wound was then deepened and the radial artery exposed. It was mobilized from its bed and secured proximally and distally with vessel loops. The artery was then occluded with vessel loops and opened on exposed surface with a 6-mm arteriotomy. The vein was spatulated and anastomosed to the side of the artery with running suture of 6-0 Prolene. Prior to completion of the suture line, the artery was allowed to back bleed and flush, and the vein was flushed with heparin solution. Suture line was completed, and the vessels were released. There was flow through the anastomosis with a pulse and thrill palpable in the vein. Bleeding from the suture line was controlled with Surgicel. When hemostasis was adequate, the wound was irrigated and closed with interrupted suture of 3-0 Vicryl and skin cristopher. Sterile dressings were applied. The patient was taken to the recovery room in stable condition. Jose [id number] cc: Juni Ramos MD
== END 2018-06-21 18:20 | disposition home or self-care (01) | DRG 173 ==
LOC: JER 19:31 → JERBED 20:32 → J6S 06-12 01:29
PROVIDERS: ADMIT Internal Medicine; ATTEND Internal Medicine
PROC: B518YZA Fluoroscopy of Superior Vena Cava using Other Contrast, Guidance (ICD-10-PCS; 2018-06-15)
PROC: 03L Upper Arteries, Occlusion (ICD-10-PCS; 2018-06-19)
PROC: 057F3ZZ Dilation of Left Cephalic Vein, Percutaneous Approach (ICD-10-PCS; 2018-06-19)
PROC: 03180JF Bypass Left Brachial Artery to Lower Arm Vein with Synthetic Substitute, Open Approach (ICD-10-PCS; principal; 2018-06-19 11:00)
PROC: 5A1D90Z Performance of Urinary Filtration, Continuous, Greater than 18 hours Per Day (ICD-10-PCS; 2018-06-20)
DX: T82.590A Other mechanical complication of surgically created arteriovenous fistula, initial encounter (principal); Y83.9 Surgical procedure, unspecified as the cause of abnormal reaction of the patient, or of later complication, without mention of misadventure at the time of the procedure; I12.0 Hypertensive chronic kidney disease with stage 5 chronic kidney disease or end stage renal disease; N18.6 End stage renal disease; Z99.2 Dependence on renal dialysis; D64.9 Anemia, unspecified; K21.9 Gastro-esophageal reflux disease without esophagitis; I16.0 Hypertensive urgency; E11.22 Type 2 diabetes mellitus with diabetic chronic kidney disease; I82.B11 Acute embolism and thrombosis of right subclavian vein; I82.210 Acute embolism and thrombosis of superior vena cava; I82.890 Acute embolism and thrombosis of other specified veins; I87.321 Chronic venous hypertension (idiopathic) with inflammation of right lower extremity; I82.C11 Acute embolism and thrombosis of right internal jugular vein
CPT/HCPCS: 36415; 76000-TC-FY; 80048; 80053; 82565; 83735; 84100; 84520; 85025; 85027; 85610; 85730; 86850; 86900; 86901; 93930; 93971; 94760; 99283-25; J0885; J1644; J7030

== ENCOUNTER 2018-09-28 09:04 | Day surgery (SDC) | payer OTHER ==
--- NOTE | 2018-09-28 10:08 | PDOC ---
History of Present Illness - General Chief Complaint: Dialysis Shunt Problem Stated Complaint: FISTUALA PROBLEM Time Seen by Provider: 09/28/18 10:06 History Source: Patient Exam Limitations: No Limitations - History of Present Illness Initial Comments: 09/28/18 10:07 Patient was sent to the emergency department for reevaluation and probable surgical repair redo of AV fistula for dialysis. Denies pain, swelling, fevers, shortness of breath or any other medical issues currently. Not due for dialysis tomorrow. 09/28/18 10:15 09/28/18 17:06 Timing/Duration: unsure Severity: mild, moderate Associated Symptoms: reports: denies symptoms Past History - Travel Traveled outside of the country in the last 30 days: No Close contact w/someone who was outside of country & ill: No - Past Medical History Allergies/Adverse Reactions: Allergies Allergy/AdvReac Type Severity Reaction Status Date / Time No Known Allergies Allergy Verified 09/28/18 09:44 Home Medications: Ambulatory Orders Amlodipine Besylate [Norvasc -] 10 mg PO DAILY #30 tablet 03/27/17 Isosorbide Mononitrate [Imdur -] 30 mg PO DAILY #30 tab 06/01/17 Lisinopril 20 mg PO DAILY 02/09/18 Labetalol HCl 300 mg PO TID #90 tablet 06/21/18 Anemia: No Asthma: Yes (childhood) Cancer: No Cardiac Disorders: No CVA: No COPD: No CHF: No DVT: No Dementia: No Diabetes: No Dialysis: Yes GI Disorders: No Disorders: No HTN: Yes Hypercholesterolemia: No Liver Disease: No Seizures: No Thyroid Disease: No - Surgical History Abdominal Surgery: No Appendectomy: No Cardiac Surgery: No Cholecystectomy: No Lung Surgery: No Orthopedic Surgery: No - Immunization History Immunization Up to Date: Yes - Suicide/Smoking/Psychosocial Hx Smoking History: Former smoker Have you smoked in the past 12 months: No If you are a former smoker, when did you quit?: 7 YRS AGO Information on smoking cessation initiated: No Hx Alcohol Use: No Drug/Substance Use Hx: No Substance Use Type: None Hx Substance Use Treatment: No Review of Systems - Review of Systems Able to Perform ROS?: Yes Is the patient limited [place]an proficient: Yes Constitutional: Yes: See HPI, Malaise. No: Symptoms Reported HEENTM: Yes: See HPI. No: Symptoms Reported Respiratory: Yes: See HPI, Wheezing (states has some chronic wheezing with some COPD but is not short of breath or bothering him currently). No: Symptoms reported, Cough ABD/GI: Yes: See HPI. No: Symptoms Reported : Yes: See HPI. No: Symptoms Reported Integumentary: Yes: See HPI. No: Symptoms Reported, Bruising All Other Systems: Reviewed and Negative *Physical Exam - Vital Signs Last Vital Signs Temp Pulse Resp BP Pulse Ox 98.3 F 87 16 152/96 100 09/28/18 09:44 09/28/18 09:44 09/28/18 09:44 09/28/18 09:44 09/28/18 09:44 - Physical Exam General Appearance: Yes: Nourished, Appropriately Dressed, Mild Distress. No: Apparent Distress HEENT: positive: SHILA, Normal ENT Inspection, Normal Voice, TMs Normal, Pharynx Normal Neck: positive: Supple. negative: Tender Respiratory/Chest: positive: Lungs Clear, Normal Breath Sounds Cardiovascular: positive: Regular Rhythm Gastrointestinal/Abdominal: positive: Soft. 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 Bates who understands patient is waiting for OR, scheduled at approximately 4 PM. Patient is updated to plan, preop labs and her sutures have been completed. Will be admitted for satellite/observation and fistula repair. Patient is resting comfortably *DC/Admit/Observation/Transfer Diagnosis at time of Disposition: Dialysis catheter clot or failure - Discharge Dispostion Condition at time of disposition: Stable Decision to Admit order: Yes - Referrals - Patient Instructions - Post Discharge Activity
[2018-09-28 10:37] LABS: BASO % 0.7 % (0-2.0); EOS % 8.1 % (0-4.5); HEMATOCRIT 35.8 % (35.4-49); HEMOGLOBIN 11.7 GM/dL (11.7-16.9); LYMPH % 24.7 % (8-40); MCH 27.6 pg (25.7-33.7); MCHC 32.6 g/dl (32.0-35.9); MEAN CELL VOLUME 84.7 fl (80-96); MEAN PLT VOLUME 7.4 fl (7.5-11.1); MONO % 8.5 % (3.8-10.2); PLATELET COUNT 252 K/MM3 (134-434); RBC 4.22 M/mm3 (4.00-5.60); RDW 17.1 % (11.9-15.9); WHITE BLOOD COUNT 5.2 K/mm3 (4.0-10.0)
[2018-09-28 11:10] LABS: ALBUMIN 3.7 g/dl (3.4-5.0); ALK PHOS 134 U/L (45-117); ANION GAP 12 MMOL/L (8-16); BILIRUBIN,TOTAL 0.3 mg/dL (0.2-1); BLOOD UREA NITROGEN 49 mg/dL (7-18); CALCIUM 7.5 mg/dL (8.5-10.1); CHLORIDE 105 mmol/L (98-107); CO2 23 mmol/L (21-32); GLUCOSE,RANDOM 81 mg/dL (74-106); POTASSIUM 5.2 mmol/L (3.5-5.1); SGOT/AST 10 U/L (15-37); SGPT/ALT 9 U/L (13-61); SODIUM 139 mmol/L (136-145); TOT PROT 7.6 g/dl (6.4-8.2)
[2018-09-28 11:24] LABS: CREATININE 10.7 mg/dL (0.55-1.3)
--- NOTE | 2018-09-28 15:05 | EKG ---
Test Reason : Blood Pressure : / mmHG Vent. Rate : 077 BPM Atrial Rate : 077 BPM P-R Int : 164 ms QRS Dur : 062 ms QT Int : 378 ms P-R-T Axes : 063 -47 055 degrees QTc Int : 427 ms NORMAL SINUS RHYTHM POSSIBLE LEFT ATRIAL ENLARGEMENT LEFT AXIS DEVIATION ANTEROSEPTAL INFARCT (CITED ON OR BEFORE 26-MAY-2018) ABNORMAL ECG WHEN COMPARED WITH ECG OF 25-JUL-2018 15:41, NO SIGNIFICANT CHANGE WAS FOUND Confirmed by FRANKIE GARCIA MD ([id number]) on 09/28/2018 3:05:05 PM Referred By: Confirmed By:FRANKIE GARCIA MD
[2018-09-28] MEDS ORDERED: ROPIVACAINE HCL 0.5% 30ML VIAL ONE (16:25)
[2018-09-28] MEDS ORDERED: MIDAZOLAM HCL 5 MG/1 ML Single Dose Vial ONE (16:31)
[2018-09-28] MEDS ORDERED: HEPARIN NA (PORCINE) 5,000 UNITS/ML 1ML VIAL ONE (16:37)
[2018-09-28] MEDS ORDERED: LIDOCAINE HCL 1%, 10 MG/ML (20ML VIAL) ONE (16:37)
[2018-09-28] MEDS ORDERED: PAPAVERINE HCL 30 MG/1 ML 10 ML VIAL NR ONE (16:37)
--- NOTE | 2018-09-28 16:38 | HP ---
Satellite H - Chief Complaint History of Present Illness: 58 year old man with ESRD on HD with Permacath. Left wrist AV fistula failed to mature due to vein occlusion in forearm. He has swelling in the hand from venous hypertension. History Source: Patient, Medical Record Limitations to Obtaining History: No Limitations - Past Medical History Allergies/Adverse Reactions: Allergies Allergy/AdvReac Type Severity Reaction Status Date / Time No Known Allergies Allergy Verified 09/28/18 09:44 Cardiovascular: Yes: HTN Gastrointestinal: Yes: GERD Renal/: Yes: Renal Failure, Hemodialysis - Current Medications Current Medications: Home Medications Medication Instructions Recorded Amlodipine Besylate [Norvasc -] 10 mg PO DAILY #30 tablet 03/27/17 Isosorbide Mononitrate [Imdur -] 30 mg PO DAILY #30 tab 06/01/17 Lisinopril 20 mg PO DAILY 02/09/18 Labetalol HCl 300 mg PO TID #90 tablet 06/21/18 Satellite Physical Exam - Physical Examination Vital Signs: Vital Signs Period Temp Pulse Resp BP Sys/Beyer Pulse Ox Last 24 Hr 97.9 F-98.3 F 77-87 16-18 140-152/85-96 97-100 General Appearance: Alert & Oriented x3, No Distress ENT: Clear Lung: Clear to auscultation Heart: Regular rate & rhythm Abdomen: Soft Extremities: Other (Left hand edema.) Satellite Impression/Plan - Impression/Plan Impression: Complication of AV access left arm. Operative Procedure: Creation basilic vein AV fistula left upper arm and ligation of distal cephalic vein fistula. Date to be Performed: 09/28/18
[2018-09-28] MEDS ORDERED: PROPOFOL 20 ML ONE (17:12)
[2018-09-28] MEDS ORDERED: LIDOCAINE HCL 1%, 10 MG/ML (20ML VIAL) INF ONE (17:50)
[2018-09-28] MEDS ORDERED: METOPROLOL TARTRATE 5 MG/5 ML VIAL ONE (18:18)
[2018-09-28] MEDS ORDERED: hydrALAZINE HCL 20 MG/ML VIAL ONE (18:43)
--- NOTE | 2018-09-28 19:06 | OP ---
Operative Note - Note: Operative Date: 09/28/18 Pre-Operative Diagnosis: ESRD on HD Operation: Creation AV fistula left arm, brachial basilic Findings: Patent basilic vein 4-8 mm diameter Post-Operative Diagnosis: Same as Pre-op Surgeon: Charlie Bates Anesthesiologist/PUBLIC HEALTH ADVISOR: Alverto Lema Anesthesia: MAC Estimated Blood Loss (mls): 50
[2018-09-28] MEDS ORDERED: oxyCODONE HCL 5 MG TABLET PO PRN ×2 (19:11→19:12)
[2018-09-28] MEDS ORDERED: ACETAMINOPHEN 325 MG TABLET (FP) PO PRN ×2 (19:11→19:12)
[2018-09-28] MEDS ORDERED: ONDANSETRON 4 MG/2 ML VIAL IVPUSH PRN (19:16)
[2018-09-28] MEDS ORDERED: LABETALOL HCL 5 MG/1 ML (100MG/20 ML VIAL) IVPUSH PRN (19:17)
[2018-09-28] MEDS ORDERED: DESMOPRESSIN ACETATE 4 MCG/ML AMP IVPB ONE (19:18)
[2018-09-28] MEDS ORDERED: DESMOPRESSIN ACETATE IVPB ONE (19:45)
[2018-09-28] MEDS ORDERED: SODIUM CHLORIDE IVPB ONE (19:45)
[2018-09-28] MEDS: LABETALOL HCL 100 MG TABLET (FP) PO SCH (23:00)
[2018-09-29 00:47] VITALS: BMI 24.5
[2018-09-29 06:09] VITALS: TEMP 98.3
[2018-09-29] MEDS: LABETALOL HCL 100 MG TABLET (FP) PO SCH (07:16)
[2018-09-29 08:10] VITALS: BP 157/79; PULSE 93
[2018-09-29] MEDS ORDERED: amLODIPine BESYLATE 10 MG TABLET (FP) PO SCH (10:00)
[2018-09-29] MEDS ORDERED: ISOSORBIDE MONONITRATE 30 MG TAB.SR.24H (FP) PO SCH (10:00)
[2018-09-29] MEDS ORDERED: LISINOPRIL 20 MG TABLET (FP) PO SCH (10:00)
--- NOTE | 2018-09-29 10:21 | PN ---
Progress Note (short form) - Note Progress Note: POD 1 No complaints Incision clean and dry No swelling Pulse in fistula present Stable Home today
--- NOTE | 2018-09-29 11:33 | OP ---
DATE OF OPERATION: 09/28/2018 SURGEON: Charlie Curry MD PROCEDURE: Creation of arteriovenous fistula, left arm, brachial artery to basilic vein. PREOPERATIVE DIAGNOSIS: End-stage renal disease, on hemodialysis. POSTOPERATIVE DIAGNOSIS: End-stage renal disease, on hemodialysis. ANESTHESIA: Axillary block. ANESTHESIOLOGIST: Alverto Lema DO OPERATIVE FINDINGS: The patient had a previous left distal cephalic vein fistula which did not mature, required new AV access. The left basilic vein was patent with a diameter of between 4 and 8 mm in the upper arm. The brachial artery was approximately 3 mm in diameter above the elbow. OPERATIVE PROCEDURE: Following routine patient identification, a left axillary block was established. The left arm was prepped with ChloraPrep. A timeout was performed. An incision made over the basilic vein from the axilla to the antecubital crease after duplex mapping of the vein. The vein was exposed by division of subcutaneous tissue and muscle fascia. Care was taken not to damage the musculocutaneous nerve which was draped over the vein. All side branches of the vein were ligated with silk ties and divided. The vein was ligated distally and cannulated through a distal side branch. It was distended with heparin and papaverine solution. The vein was completely mobilized from its bed for the length of the incision. It was then freed and marked to prevent twisting. A tunneler was passed along the anteromedial aspect of the upper arm between the proximal and distal ends of the incision and the vein was passed through the tunnel with care not to twist it. The brachial artery was then exposed near the distal end of the incision and secured with vessel loops. The side branches were ligated and divided. The artery was then occluded with the vessel loops and opened on exposed surface with a 6-mm arteriotomy. The end of the vein was spatulated, anastomosed to the side of the artery with running sutures of 6-0 Prolene. Following completion of the suture line, the artery was allowed to back-bleed and flush and the vein was flushed with heparin solution. The suture line was completed and the vessels were released. There was good flow through the anastomosis with a palpable pulse in the vein. The wounds were irrigated and then closed in layers using interrupted 3-0 Vicryl on the subcutaneous tissues and fascia and cristopher on the skin. A sterile dressing was applied. The patient was taken to the recovery room in stable condition. CHARLIE CURRY M.D. ISMAEL/[id number]
== END 2018-09-29 11:14 | disposition home or self-care (01) ==
LOC: JER 09:04 → JASUSAT 11:13 → J4W 20:30 → UNDOADMIN 20:30 → JASUSAT 20:30 → J4W 21:28 → JASUSAT 09-29 00:38 → J4W 09-29 00:38 → JASUSAT 09-29 11:14
PROVIDERS: ATTEND Surgery
PROC: 03180ZD Bypass Left Brachial Artery to Upper Arm Vein, Open Approach (ICD-10-PCS; principal; 2018-09-28 17:30)
DX: T82.858A Stenosis of other vascular prosthetic devices, implants and grafts, initial encounter (principal); I12.0 Hypertensive chronic kidney disease with stage 5 chronic kidney disease or end stage renal disease; N18.6 End stage renal disease; Z99.2 Dependence on renal dialysis
CPT/HCPCS: 36415; 71046-TC-FY; 80053; 85025; 86850; 86900; 86901; 93005; 93010; 94760; 99285-25; J1644; J2597

== ENCOUNTER 2018-10-12 17:00 | Inpatient (IN) | payer OTHER ==
--- NOTE | 2018-10-12 17:13 | PDOC ---
Rapid Medical Evaluation Chief Complaint: SIRS, Suspected/Possible Time Seen by Provider: 10/12/18 17:07 Medical Evaluation: Allergies Allergy/AdvReac Type Severity Reaction Status Date / Time No Known Allergies Allergy Verified 10/12/18 17:07 10/12/18 17:08 I have performed a brief in-person evaluation of this patient. The patient presents with a chief complaint of: swelling and pain to left arm- AV fistula placed, Pertinent physical exam findings: grossly swollen and erythema to left hand , able to move fingers but tearful with pain/ I have ordered the following: taken into ER for immediate evaluation The patient will proceed to the ED for further evaluation.
[2018-10-12] MEDS ORDERED: morphine CARPU-JECT 4 MG/1 ML DISP.SYRIN IVPUSH ONE (18:09)
--- NOTE | 2018-10-12 18:54 | PDOC ---
Attending Attestation - Resident Resident Name: AnthonyJerel - ED Attending Attestation I have performed the following: I have examined & evaluated the patient, The case was reviewed & discussed with the resident, I agree w/resident's findings & plan, Exceptions are as noted - HPI HPI: 10/12/18 18:49 58 yo male h/o HTN ESRD on dialysis s/p left basilic av fistula 09/28 dr rousseau here with significant swelling and pain redness left arm. pt states pain has gotten severe. also noted worsenign facial swelling for 3 weeks. did have a tunneled rac on right side, was switched to left subclavian tunneled cath due to infection. pt has h/o staph infections and bactermia. denies fevers at home, but has chils. no cp no sob. no lower ext swelling. no mod factors. entire left arm has been swollen. - Physicial Exam PE: 10/12/18 18:51 awake alert lungs clear bilaterally heart rrr no mrg. abd soft nt nd. ext left upper basilic fistula incision intact. good bruit. diffuse arm erhtyema edema and swelling. lower ext wwp. nuero alert oriented x 3. - Medical Decision Making 10/12/18 18:53 differential cellulitis, abscess clot, sepsis. paige treat with vanco / zosyn. d/ w dr rousseau. will be admitted to hospitalist . soham gibson see pt tomorrow. states no anticoagulants. elevate arm to reduce swelling. last dialysis was 2 days ago. will need dialysis tomorrow. will d/w dr nuñez. lab cultures 10/12/18 18:54
[2018-10-12] MEDS ORDERED: PIPERACILLIN/TAZOB 2.25 GM 2.25 GM in DEXTROSE 5%-WATER - 50 ML IVPB ONE (19:07)
[2018-10-12] MEDS ORDERED: VANCOMYCIN 1,000 MG in DEXTROSE 5%-WATER - 250 ML IVPB ONE (19:07)
[2018-10-12] MEDS ORDERED: MORPHINE SULFATE 10 MG/1 ML *VIAL ONE (19:09)
--- NOTE | 2018-10-12 19:09 | PDOC ---
History of Present Illness - General Chief Complaint: SIRS, Suspected/Possible Stated Complaint: LT ARM SWELLING, DIABETIC, PAIN Time Seen by Provider: 10/12/18 17:07 History Source: Patient Exam Limitations: No Limitations - History of Present Illness Initial Comments: 10/12/18 19:25 58 yo M with a hx of ESRD on HD (/Fri) with recent left arm AV fistula surgery 2 weeks ago and HTN presents to the emergency department with pain and swelling in the left extremity. Per the patient, he has had the pain and swelling for 2 weeks with progressive worsening. States that his left arm has decreased sensation and motor strength. He states he was having a revision surgery by Dr. Bates this Friday and saw him in his office today, but was unable to withstand the pain. In addition, he has been having facial pain and swelling for the past 3 weeks. He has a hx of right dialysis catheter and left dialysis catheter. Denies the following: fever, chills, nausea, vomiting, chest pain, SOB, abdominal pain, headaches, dysuria, hematuria, diarrhea, melana , hematochezia, and leg pain/swelling. Pmhx: Refer to above Shx: left AV fistula 2 weeks ago Meds: does not know which medications hes on. Denies anticoagulants and aspirin. Allergies: NKDA Social: Denies tobacco, alcohol, and substance abuse. Past History - Past Medical History Allergies/Adverse Reactions: Allergies Allergy/AdvReac Type Severity Reaction Status Date / Time No Known Allergies Allergy Verified 10/12/18 19:42 Home Medications: Ambulatory Orders Amlodipine Besylate [Norvasc -] 10 mg PO DAILY #30 tablet 03/27/17 Isosorbide Mononitrate [Imdur -] 30 mg PO DAILY #30 tab 06/01/17 Lisinopril 20 mg PO DAILY 02/09/18 Labetalol HCl 300 mg PO TID #90 tablet 06/21/18 Anemia: No Asthma: Yes (childhood) Cancer: No Cardiac Disorders: No CVA: No COPD: No CHF: No DVT: No Dementia: No Diabetes: No Dialysis: Yes GI Disorders: No Disorders: No HTN: Yes Hypercholesterolemia: No Liver Disease: No Seizures: No Thyroid Disease: No - Surgical History Abdominal Surgery: No Appendectomy: No Cardiac Surgery: No Cholecystectomy: No Lung Surgery: No Orthopedic Surgery: No - Immunization History Immunization Up to Date: Yes - Suicide/Smoking/Psychosocial Hx Smoking History: Former smoker Have you smoked in the past 12 months: No If you are a former smoker, when did you quit?: 7 YRS AGO Hx Alcohol Use: No Drug/Substance Use Hx: No Substance Use Type: None Hx Substance Use Treatment: No Review of Systems - Review of Systems Able to Perform ROS?: Yes Is the patient limited Bangladeshi proficient: No Constitutional: No: Chills, Diaphoresis, Fever HEENTM: No: Recent change in vision, Nose Pain, Throat Pain, Mouth Pain Respiratory: No: Shortness of Breath Cardiac (ROS): No: Chest Pain, Lightheadedness, Palpitations ABD/GI: No: Constipated, Diarrhea, Nausea, Rectal Bleeding, Vomiting, Abdominal cramping, Tarry Stools : No: Burning, Dysuria, Hematuria Musculoskeletal: Yes: Other (swelling of the left arm, hand, and forearm). No: Back Pain Integumentary: No: Rash Neurological: No: Headache Psychiatric: No: Stressors Endocrine: No: Unexplained Weight Gain Hematologic/Lymphatic: No: Anemia *Physical Exam - Physical Exam General Appearance: Yes: Nourished, Appropriately Dressed HEENT: positive: EOMI, SHILA, Other (face was plethoric with swelling in the submandibular space consistent with a central venous occlusion) Neck: positive: Trachea midline. negative: Tender, Lymphadenopathy (R), Lymphadenopathy (L) Respiratory/Chest: positive: Lungs Clear, Normal Breath Sounds. negative: Chest Tender, Respiratory Distress, Accessory Muscle Use Cardiovascular: positive: Regular Rhythm, Regular Rate, S1, S2. negative: Systolic Murmur Gastrointestinal/Abdominal: positive: Normal Bowel Sounds. negative: Tender Musculoskeletal: negative: CVA Tenderness Extremity: positive: Normal Capillary Refill, Tender, Swelling (left hand, forearm, and arm. Warm to the touch. Tenderness to palpation throughout the arm. Intact radial pulse), Other (appropiate bruit. suture line was without discharge and erythema. ). negative: Normal Inspection, Normal Range of Motion , Coldness, Cyanosis Integumentary: positive: Normal Color, Dry, Warm Neurologic: positive: Fully Oriented, Alert, Normal Mood/Affect, Motor Strength 5/5 Heart Score/ECG Review - ECG Intrepretation Comment:: 10/13/18 02:49 ventricular rate 80 bpm, OR is 164 ms, QRS duration is 66 ms, QTc is 415 ms. Normal sinus rhythm without ST elevations or depressions. ED Treatment Course - LABORATORY CBC & Chemistry Diagram: 10/12/18 19:15 10/12/18 21:45 - RADIOLOGY Radiology Studies Ordered: Category Date Time Status CHEST X-RAY PORTABLE* [RAD] Stat Radiology 10/12/18 18:08 Taken Medical Decision Making - Medical Decision Making 58 yo M with a hx of ESRD on HD () with recent left arm AV fistula surgery 2 weeks ago and HTN presents to the emergency department with pain and swelling in the left extremity. Initial vitals: Initial Vital Signs Temp Pulse Resp BP Pulse Ox 97.5 F L 77 16 143/89 99 10/12/18 19:10 10/12/18 19:10 10/12/18 19:10 10/12/18 19:10 10/12/18 19:10 Work up: concerns for sepsis vs cellulitis of the arm vs abscess of the arm vs graft failure Laboratory Tests 10/12/18 10/12/18 10/12/18 19:15 19:15 19:15 WBC 5.9 RBC 3.87 L Hgb 10.9 L Hct 33.2 L MCV 85.9 MCH 28.1 MCHC 32.7 RDW 17.8 H Plt Count 298 MPV 7.3 L Absolute Neuts (auto) 3.3 Neutrophils % 55.1 Lymphocytes % 25.5 Monocytes % 9.9 Eosinophils % 8.2 H Basophils % 1.3 Nucleated RBC % 0 PT with INR 13.80 H INR 1.17 H PTT (Actin FS) 33.8 VBG pH POC VBG pCO2 POC VBG pO2 Mixed VBG HCO3 Sodium Potassium Chloride Carbon Dioxide Anion Gap BUN Creatinine Creat Clearance w eGFR Random Glucose Lactic Acid 0.8 Calcium Total Bilirubin AST ALT Alkaline Phosphatase Creatine Kinase CK-MB (CK-2) Troponin I Total Protein Albumin Blood Type Antibody Screen 10/12/18 10/12/18 10/12/18 19:15 19:20 19:20 WBC RBC Hgb Hct MCV MCH MCHC RDW Plt Count MPV Absolute Neuts (auto) Neutrophils % Lymphocytes % Monocytes % Eosinophils % Basophils % Nucleated RBC % PT with INR INR PTT (Actin FS) VBG pH 7.30 L POC VBG pCO2 53.9 H POC VBG pO2 28.8 Mixed VBG HCO3 25.9 H Sodium Cancelled Potassium Cancelled Chloride Cancelled Carbon Dioxide Cancelled Anion Gap Cancelled BUN Cancelled Creatinine Cancelled Creat Clearance w eGFR Cancelled Random Glucose Cancelled Lactic Acid Calcium Cancelled Total Bilirubin Cancelled AST Cancelled ALT Cancelled Alkaline Phosphatase Cancelled Creatine Kinase Cancelled CK-MB (CK-2) Cancelled Troponin I Cancelled Total Protein Cancelled Albumin Cancelled Blood Type Cancelled Antibody Screen Cancelled 10/12/18 20:30 WBC RBC Hgb Hct MCV MCH MCHC RDW Plt Count MPV Absolute Neuts (auto) Neutrophils % Lymphocytes % Monocytes % Eosinophils % Basophils % Nucleated RBC % PT with INR INR PTT (Actin FS) VBG pH POC VBG pCO2 POC VBG pO2 Mixed VBG HCO3 Sodium Potassium Chloride Carbon Dioxide Anion Gap BUN Creatinine Creat Clearance w eGFR Random Glucose Lactic Acid Calcium Total Bilirubin AST ALT Alkaline Phosphatase Creatine Kinase CK-MB (CK-2) Troponin I Total Protein Albumin Blood Type B POSITIVE Antibody Screen Negative Potassium was within normal limits. Creatinine was 12 (expected since dialysis patient with last treatment on Friday). Patient was given morphine for analgesic control. Spoke to Dr. Bates who recommended admission for the patient to be seen tomorrow by him. He recommended to keep his bed at 45 degrees and the arm elevated. He states no anticoagulants needed at this time. 10/13/18 00:25 spoke to nephrology and will do dialysis tomorrow morning. Patient was reassessed and had adequate pain control. Vanc and zosyn started. Dispo: Admit *DC/Admit/Observation/Transfer Diagnosis at time of Disposition: Swollen arm - Discharge Dispostion Decision to Admit order Date/Time: Decision to Admit Order Category Date Time Status Decision to Admit to Hospital Routine Admission 10/12/18 18:56 Active - Referrals - Patient Instructions - Post Discharge Activity
[2018-10-12 19:41] LABS: BASO % 1.3 % (0-2.0); EOS % 8.2 % (0-4.5); HEMATOCRIT 33.2 % (35.4-49); HEMOGLOBIN 10.9 GM/dL (11.7-16.9); LYMPH % 25.5 % (8-40); MCH 28.1 pg (25.7-33.7); MCHC 32.7 g/dl (32.0-35.9); MEAN CELL VOLUME 85.9 fl (80-96); MEAN PLT VOLUME 7.3 fl (7.5-11.1); MONO % 9.9 % (3.8-10.2); NEUT % 55.1 % (42.8-82.8); PLATELET COUNT 298 K/MM3 (134-434); RBC 3.87 M/mm3 (4.00-5.60); RDW 17.8 % (11.9-15.9); WHITE BLOOD COUNT 5.9 K/mm3 (4.0-10.0)
[2018-10-12 19:50] LABS: VENOUS PC02 53.9 mmHg (38-52); VENOUS PH 7.3 (7.32-7.42); VENOUS PO2 28.8 mmHg (28-48)
[2018-10-12 19:55] LABS: INR 1.17 (0.83-1.09); PROTHROMBIN TIME (PATIENT) 13.8 SEC (9.7-13.0)
[2018-10-12] MEDS ORDERED: PIPERACILLIN/TAZOB 2.25 GM 2.25 GM/50 ML BAG IVPB ONE (19:57)
[2018-10-12 19:58] LABS: ACTIVATED PTT 33.8 SECONDS (25.2-36.5)
[2018-10-12] MEDS ORDERED: VANCOMYCIN 1 GRAM (PRE-DOCKED) 1,000 MG/250 ML BAG IVPB ONE (20:01)
--- NOTE | 2018-10-12 21:44 | HP ---
Admitting History and Physical - Primary Care Physician PCP: Campos Adame - Admission History of Present Illness: 58 yo male h/o HTN ESRD on dialysis s/p left basilic av fistula 09/28 dr rousseau here with significant swelling and pain redness left arm. pt states pain has gotten severe. also noted worsening facial swelling for 3 weeks. did have a tunneled rac on right side, was switched to left subclavian tunneled cath due to infection. pt has h/o staph infections and bacteremia. denies fevers at home, but has chills. no cp no sob. no lower ext swelling. no mod factors. entire left arm has been swollen. - Past Medical History Cardiovascular: Yes: HTN Gastrointestinal: Yes: GERD Renal/: Yes: Renal Failure, Hemodialysis - Past Surgical History Past Surgical History: Yes: AV Fistula/Graft - Smoking History Smoking history: Former smoker Have you smoked in the past 12 months: No If you are a former smoker, when did you quit?: 7 YRS AGO - Alcohol/Substance Use Hx Alcohol Use: No Home Medications - Allergies Allergies/Adverse Reactions: Allergies Allergy/AdvReac Type Severity Reaction Status Date / Time No Known Allergies Allergy Verified 10/12/18 19:42 - Home Medications Home Medications: Ambulatory Orders Amlodipine Besylate [Norvasc -] 10 mg PO DAILY #30 tablet 03/27/17 Isosorbide Mononitrate [Imdur -] 30 mg PO DAILY #30 tab 06/01/17 Lisinopril 20 mg PO DAILY 02/09/18 Labetalol HCl 300 mg PO TID #90 tablet 06/21/18 Physical Examination Vital Signs: Vital Signs Temperature 97.5 F L 10/12/18 19:10 Pulse Rate 77 10/12/18 19:10 Respiratory Rate 16 10/12/18 19:10 Blood Pressure 143/89 10/12/18 19:10 O2 Sat by Pulse Oximetry (%) 99 10/12/18 19:10 HENT: Yes: Other (swelling of face and neck) Cardiovascular: Yes: Regular Rate and Rhythm Respiratory: Yes: CTA Bilaterally Gastrointestinal: Yes: Normal Bowel Sounds Extremities: Yes: WNL (Left arm swollen , warm and tender) Neurological: Yes: Alert, Oriented Labs: CBC, BMP 10/12/18 19:15 10/12/18 19:20 Problem List - Problems (1) Dialysis catheter clot or failure Assessment/Plan: vascular to see patient Code(s): ZJO1471 - (2) ESRD (end stage renal disease) Assessment/Plan: on HD Code(s): N18.6 - END STAGE RENAL DISEASE (3) Hypertension Assessment/Plan: stable continue home meds Code(s): I10 - ESSENTIAL (PRIMARY) HYPERTENSION Qualifiers: Assessment/Plan Laboratory Tests 10/12/18 10/12/18 10/12/18 19:15 19:15 19:15 WBC 5.9 RBC 3.87 L Hgb 10.9 L Hct 33.2 L MCV 85.9 MCH 28.1 MCHC 32.7 RDW 17.8 H Plt Count 298 MPV 7.3 L Absolute Neuts (auto) 3.3 Neutrophils % 55.1 Lymphocytes % 25.5 Monocytes % 9.9 Eosinophils % 8.2 H Basophils % 1.3 Nucleated RBC % 0 PT with INR 13.80 H INR 1.17 H PTT (Actin FS) 33.8 VBG pH POC VBG pCO2 POC VBG pO2 Mixed VBG HCO3 Sodium Potassium Chloride Carbon Dioxide Anion Gap BUN Creatinine Creat Clearance w eGFR Random Glucose Lactic Acid 0.8 Calcium Total Bilirubin AST ALT Alkaline Phosphatase Creatine Kinase CK-MB (CK-2) Troponin I Total Protein Albumin Blood Type Antibody Screen 10/12/18 10/12/18 10/12/18 19:15 19:20 19:20 WBC RBC Hgb Hct MCV MCH MCHC RDW Plt Count MPV Absolute Neuts (auto) Neutrophils % Lymphocytes % Monocytes % Eosinophils % Basophils % Nucleated RBC % PT with INR INR PTT (Actin FS) VBG pH 7.30 L POC VBG pCO2 53.9 H POC VBG pO2 28.8 Mixed VBG HCO3 25.9 H Sodium Cancelled Potassium Cancelled Chloride Cancelled Carbon Dioxide Cancelled Anion Gap Cancelled BUN Cancelled Creatinine Cancelled Creat Clearance w eGFR Cancelled Random Glucose Cancelled Lactic Acid Calcium Cancelled Total Bilirubin Cancelled AST Cancelled ALT Cancelled Alkaline Phosphatase Cancelled Creatine Kinase Cancelled CK-MB (CK-2) Cancelled Troponin I Cancelled Total Protein Cancelled Albumin Cancelled Blood Type Cancelled Antibody Screen Cancelled Active Medications Generic Name Dose Route Start Last Admin Trade Name Freq PRN Reason Stop Dose Admin Acetaminophen 650 mg 10/12/18 21:50 Tylenol - PO Q6H PRN FEVER Amlodipine Besylate 10 mg 10/13/18 10:00 Norvasc - PO DAILY [facility] Enoxaparin Sodium 30 mg 10/13/18 10:00 Lovenox - SQ DAILY [facility] Piperacillin Sod/Tazobactam 50 mls @ 100 mls/hr 10/13/18 12:45 Sod 2.25 gm/ Dextrose IVPB Q8H-IV [facility] Protocol Isosorbide Mononitrate 30 mg 10/13/18 10:00 Imdur - PO DAILY [facility] Labetalol HCl 300 mg 10/13/18 07:57 Normodyne - PO TID [facility] Lisinopril 20 mg 10/13/18 10:00 Prinivil PO DAILY [facility] Morphine Sulfate 3 mg 10/12/18 21:50 10/13/18 03:55 Morphine Sulfate IVPUSH 3 mg Q4H PRN Administration PAIN LEVEL 4 - 6
[2018-10-12] MEDS ORDERED: ACETAMINOPHEN 325 MG TABLET (FP) PO PRN (21:50)
[2018-10-12] MEDS ORDERED: morphine SULFATE 4 MG/ML VIAL IVPUSH PRN (21:50)
[2018-10-12 22:26] LABS: ALBUMIN 3.5 g/dl (3.4-5.0); ALK PHOS 135 U/L (45-117); ANION GAP 12 MMOL/L (8-16); BILIRUBIN,TOTAL 0.3 mg/dL (0.2-1); BLOOD UREA NITROGEN 65 mg/dL (7-18); CALCIUM 7.4 mg/dL (8.5-10.1); CHLORIDE 106 mmol/L (98-107); CO2 23 mmol/L (21-32); GLUCOSE,RANDOM 90 mg/dL (74-106); POTASSIUM 5.1 mmol/L (3.5-5.1); SGOT/AST 9 U/L (15-37); SGPT/ALT 7 U/L (13-61); SODIUM 140 mmol/L (136-145); TOT PROT 7.4 g/dl (6.4-8.2)
[2018-10-13] MEDS: LABETALOL HCL 200 MG TABLET (FP) PO SCH ×2 (01:00→20:12)
[2018-10-13] MEDS ORDERED: LABETALOL HCL 100 MG TABLET (FP) ONE ×2 (02:28→22:16)
[2018-10-13] MEDS ORDERED: MORPHINE SULFATE 10 MG/1 ML *VIAL ONE (03:52)
[2018-10-13] MEDS: amLODIPine BESYLATE 10 MG TABLET (FP) PO SCH (10:00)
[2018-10-13] MEDS: ENOXAPARIN NA (PORCINE) 30 MG/0.3 ML DISP.SYRIN SQ SCH (10:00)
[2018-10-13] MEDS: ISOSORBIDE MONONITRATE 30 MG TAB.SR.24H (FP) PO SCH (10:00)
[2018-10-13] MEDS: LISINOPRIL 20 MG TABLET (FP) PO SCH (10:00)
[2018-10-13] MEDS ORDERED: EPOETIN ALFA 3,000 UNIT, EPOETIN ALFA 2,000 UNIT IVPUSH ONE (12:00)
--- NOTE | 2018-10-13 12:43 | CON.ID ---
Consult - Past Medical History Cardio/Vascular: Yes: HTN Gastrointestinal: Yes: GERD Renal/: Yes: Renal Failure, Hemodialysis - Past Surgical History Past Surgical History: Yes: AV Fistula/Graft - Alcohol/Substance Use Hx Alcohol Use: No - Smoking History Smoking history: Former smoker Have you smoked in the past 12 months: No If you are a former smoker, when did you quit?: 7 YRS AGO Home Medications - Allergies Allergies/Adverse Reactions: Allergies Allergy/AdvReac Type Severity Reaction Status Date / Time No Known Allergies Allergy Verified 10/12/18 19:42 - Home Medications Home Medications: Ambulatory Orders Amlodipine Besylate [Norvasc -] 10 mg PO DAILY #30 tablet 03/27/17 Isosorbide Mononitrate [Imdur -] 30 mg PO DAILY #30 tab 06/01/17 Lisinopril 20 mg PO DAILY 02/09/18 Labetalol HCl 300 mg PO TID #90 tablet 06/21/18 Physical Exam Vital Signs: Vital Signs Temperature 97.6 F 10/13/18 11:25 Pulse Rate 66 10/13/18 11:30 Respiratory Rate 18 10/13/18 11:30 Blood Pressure 146/94 10/13/18 11:30 O2 Sat by Pulse Oximetry (%) 99 10/12/18 19:10 Labs: CBC, BMP 10/12/18 19:15 10/12/18 21:45
[2018-10-13] MEDS: PIPERACILLIN/TAZOB 2.25 GM 2.25 GM in DEXTROSE 5%-WATER - 50 ML IVPB SCH ×2 (12:45→18:56)
--- NOTE | 2018-10-13 13:46 | CONSULT ---
Consultation: CONSULT REQUEST: Nephrology Resident HISTORY OF PRESENT ILLNESS: 58yo M with h/o ESRD (T/T/S) and L AV fistula 09/28 who initially presented with edema and erythema of his L arm. Pt states he was going to undergo a revision with Dr. Bates tomorrow (09/13), but came to the ED due to increased amount of pain. Pt also endorses worsening facial edema for the past 3 weeks. He report his last dialysis day was this past Friday through a L tunneled catheter. He reports having a previous catheter on his R side, however it was replaced due to previous staph bacteremia. PMHx: HTN GERD ESRD (T/T/S) PSHx: AVF fistula creation permacath removals and insertions SoHX: Tobacco: Former; quit about 7 years ago; 1/2-1ppd at his peak Alcohol: Denies Drugs: Denies Allergies: NKDA REVIEW OF SYSTEMS: CONSTITUTIONAL: Absent: fever, chills, diaphoresis, generalized weakness, malaise, loss of appetite, weight change HEENT: Present: Facial swelling Absent: rhinorrhea, nasal congestion, throat pain, throat swelling, difficulty swallowing, ear pain, eye pain, visual changes CARDIOVASCULAR: Absent: chest pain, syncope, palpitations, irregular heart rate, lightheadedness , peripheral edema RESPIRATORY: Absent: cough, shortness of breath, dyspnea with exertion, orthopnea, wheezing, stridor, hemoptysis GASTROINTESTINAL: Absent: abdominal pain, abdominal distension, nausea, vomiting, diarrhea, constipation, melena, hematochezia GENITOURINARY: Absent: dysuria, frequency, urgency, hesitancy, hematuria, flank pain, genital pain MUSCULOSKELETAL: Present: LUE pain Absent: back pain, neck pain SKIN: Absent: rash, itching, pallor HEMATOLOGIC/IMMUNOLOGIC: Absent: easy bleeding, easy bruising, lymphadenopathy, frequent infections ENDOCRINE: Absent: unexplained weight gain, unexplained weight loss, heat intolerance, cold intolerance NEUROLOGIC: Absent: headache, focal weakness or paresthesias, dizziness, unsteady gait, seizure, mental status changes, bladder or bowel incontinence PSYCHIATRIC: Absent: anxiety, depression, suicidal or homicidal ideation, hallucinations. PHYSICAL EXAMINATION Vital Signs - 24 hr 10/12/18 10/13/18 10/13/18 19:10 11:25 11:30 Temperature 97.5 F L 97.6 F Pulse Rate 77 71 66 Pulse Rate [ 77 Left Radial] Respiratory 16 18 18 Rate Blood Pressure 143/89 139/99 146/94 Blood Pressure 143/89 [Right Arm] O2 Sat by Pulse 99 Oximetry (%) 10/13/18 10/13/18 12:00 12:30 Temperature Pulse Rate 69 71 Pulse Rate [ Left Radial] Respiratory 18 18 Rate Blood Pressure 142/79 139/71 Blood Pressure [Right Arm] O2 Sat by Pulse Oximetry (%) GENERAL: NAD, awake, alert, and fully oriented, sitting in dialysis HEENT: NC/AT, EOMI, SAEED, sclera anicteric, moderate facial swelling LUNGS: CTA bilaterally. No wheezes, and no crackles. No accessory muscle use. HEART: RRR, normal S1 and S2 without murmur ABDOMEN: Soft, nontender, not distended, normoactive bowel sounds, no guarding EXTREMITIES: LUE swelling compared to R, AVF with reduced auscultate thrill noted. L subclavian catheter C/D/I, 1+ DP pulses, minimal lower extremity edema at feet PSYCHIATRIC: Cooperative. Good eye contact. Appropriate mood and affect. SKIN: Warm, dry, no rashes Laboratory Results - last 24 hr 10/12/18 10/12/18 10/12/18 19:15 19:15 19:15 WBC 5.9 RBC 3.87 L Hgb 10.9 L Hct 33.2 L MCV 85.9 MCH 28.1 MCHC 32.7 RDW 17.8 H Plt Count 298 MPV 7.3 L Absolute Neuts (auto) 3.3 Neutrophils % 55.1 Lymphocytes % 25.5 Monocytes % 9.9 Eosinophils % 8.2 H Basophils % 1.3 Nucleated RBC % 0 PT with INR 13.80 H INR 1.17 H PTT (Actin FS) 33.8 VBG pH POC VBG pCO2 POC VBG pO2 Mixed VBG HCO3 Sodium Potassium Chloride Carbon Dioxide Anion Gap BUN Creatinine Creat Clearance w eGFR Random Glucose Lactic Acid 0.8 Calcium Total Bilirubin AST ALT Alkaline Phosphatase Creatine Kinase Creatine Kinase Index CK-MB (CK-2) Troponin I Total Protein Albumin Blood Type Antibody Screen 10/12/18 10/12/18 10/12/18 19:15 19:20 19:20 WBC RBC Hgb Hct MCV MCH MCHC RDW Plt Count MPV Absolute Neuts (auto) Neutrophils % Lymphocytes % Monocytes % Eosinophils % Basophils % Nucleated RBC % PT with INR INR PTT (Actin FS) VBG pH 7.30 L POC VBG pCO2 53.9 H POC VBG pO2 28.8 Mixed VBG HCO3 25.9 H Sodium Cancelled Potassium Cancelled Chloride Cancelled Carbon Dioxide Cancelled Anion Gap Cancelled BUN Cancelled Creatinine Cancelled Creat Clearance w eGFR Cancelled Random Glucose Cancelled Lactic Acid Calcium Cancelled Total Bilirubin Cancelled AST Cancelled ALT Cancelled Alkaline Phosphatase Cancelled Creatine Kinase Cancelled Creatine Kinase Index CK-MB (CK-2) Cancelled Troponin I Cancelled Total Protein Cancelled Albumin Cancelled Blood Type Cancelled Antibody Screen Cancelled 10/12/18 10/12/18 10/13/18 20:30 21:45 02:30 WBC RBC Hgb Hct MCV MCH MCHC RDW Plt Count MPV Absolute Neuts (auto) Neutrophils % Lymphocytes % Monocytes % Eosinophils % Basophils % Nucleated RBC % PT with INR INR PTT (Actin FS) VBG pH POC VBG pCO2 POC VBG pO2 Mixed VBG HCO3 Sodium 140 Potassium 5.1 Chloride 106 Carbon Dioxide 23 Anion Gap 12 BUN 65 H Creatinine 12.0 H* Creat Clearance w eGFR 4.39 Random Glucose 90 Lactic Acid 0.7 Calcium 7.4 L Total Bilirubin 0.3 AST 9 L ALT 7 L Alkaline Phosphatase 135 H Creatine Kinase 181 Creatine Kinase Index 0.8 CK-MB (CK-2) 1.5 Troponin I 0.04 Total Protein 7.4 Albumin 3.5 Blood Type B POSITIVE Antibody Screen Negative Active Medications Generic Name Dose Route Start Last Admin Trade Name Freq PRN Reason Stop Dose Admin Acetaminophen 650 mg 10/12/18 21:50 Tylenol - PO Q6H PRN FEVER Amlodipine Besylate 10 mg 10/13/18 10:00 Norvasc - PO DAILY [facility] Enoxaparin Sodium 30 mg 10/13/18 10:00 Lovenox - SQ DAILY [facility] Piperacillin Sod/Tazobactam 50 mls @ 100 mls/hr 10/13/18 12:45 Sod 2.25 gm/ Dextrose IVPB Q8H-IV [facility] Protocol Isosorbide Mononitrate 30 mg 10/13/18 10:00 Imdur - PO DAILY [facility] Labetalol HCl 300 mg 10/13/18 07:57 Normodyne - PO TID [facility] Lisinopril 20 mg 10/13/18 10:00 Prinivil PO DAILY [facility] Morphine Sulfate 3 mg 10/12/18 21:50 10/13/18 03:55 Morphine Sulfate IVPUSH 3 mg Q4H PRN Administration PAIN LEVEL 4 - 6 ASSESSMENT/PLAN: LUE edema ESRD (T/T/S) Normocytic anemia HTN Arranged for dialysis today through catheter --ABX with dialysis today --Epogen for anemia during dialysis --Please give antihypertensive medication prior to dialysis Ordered hepatitis panel prior to dialysis Vascular surgery to perform LUE venogram Rest per primary and ID teams Dispo: HD today; LUE venogram tomorrow Case discussed with Dr. Richard Giang, DO - IM PGY-2 Visit type - Emergency Visit Emergency Visit: Yes ED Registration Date: 10/12/18 Care time: The patient presented to the Emergency Department on the above date and was hospitalized for further evaluation of their emergent condition. - New Patient This patient is new to me today: Yes Date on this admission: 10/13/18 - Critical Care Critical Care patient: No
--- NOTE | 2018-10-13 13:49 | SPA.PREOP ---
- PRE-OP NOTE Dx: ESRD on HD via LUE AVF, LUE swelling Planned Procedure: LUE venogram Surgeon: Jana Consent: To be obtained by surgeon after risks, benefits and alternatives explained to patient. Last Vital Signs Temp Pulse Resp BP Pulse Ox 97.6 F 71 18 139/71 99 10/13/18 11:25 10/13/18 12:30 10/13/18 12:30 10/13/18 12:30 10/12/18 19:10 Lab Results WBC 5.9 K/mm3 (4.0-10.0) 10/12/18 19:15 RBC 3.87 M/mm3 (4.00-5.60) L 10/12/18 19:15 Hgb 10.9 GM/dL (11.7-16.9) L 10/12/18 19:15 Hct 33.2 % (35.4-49) L 10/12/18 19:15 MCV 85.9 fl (80-96) 10/12/18 19:15 MCHC 32.7 g/dl (32.0-35.9) 10/12/18 19:15 RDW 17.8 % (11.9-15.9) H 10/12/18 19:15 Plt Count 298 K/MM3 (134-434) 10/12/18 19:15 Sodium 140 mmol/L (136-145) 10/12/18 21:45 Potassium 5.1 mmol/L (3.5-5.1) 10/12/18 21:45 Chloride 106 mmol/L (98-107) 10/12/18 21:45 Carbon Dioxide 23 mmol/L (21-32) 10/12/18 21:45 Anion Gap 12 MMOL/L (8-16) 10/12/18 21:45 BUN 65 mg/dL (7-18) H 10/12/18 21:45 Creatinine 12.0 mg/dL (0.55-1.3) H* 10/12/18 21:45 Random Glucose 90 mg/dL (74-106) 10/12/18 21:45 Calcium 7.4 mg/dL (8.5-10.1) L 10/12/18 21:45 Blood Type B POSITIVE 10/12/18 20:30 Antibody Screen Negative 10/12/18 20:30 INR 1.17 (0.83-1.09) H 10/12/18 19:15 - ASSESSMENT/PLAN 1. NPO after midnight except po meds 2. GI/DVT PPX 3. Medical optimization / clearance Visit type - Case Type Case Type: ED Admission - New patient This patient is new to me today: Yes Date on this admission: 10/13/18
[2018-10-13] MEDS: LABETALOL HCL 100 MG TABLET (FP) PO SCH ×2 (15:00→22:21)
--- NOTE | 2018-10-13 16:29 | EKG ---
Test Reason : Blood Pressure : / mmHG Vent. Rate : 080 BPM Atrial Rate : 080 BPM P-R Int : 164 ms QRS Dur : 066 ms QT Int : 360 ms P-R-T Axes : 069 -01 059 degrees QTc Int : 415 ms NORMAL SINUS RHYTHM SEPTAL INFARCT (CITED ON OR BEFORE 26-MAY-2018) ABNORMAL ECG WHEN COMPARED WITH ECG OF 28-SEP-2018 10:56, no significant change Confirmed by MD Nora, Aubrey ([id number]) on 10/13/2018 4:28:49 PM Referred By: Confirmed By:Aubrey Melendez MD
--- NOTE | 2018-10-13 16:34 | PN ---
Progress Note, Physician - Current Medication List Current Medications: Active Medications Acetaminophen (Tylenol -) 650 mg PO Q6H PRN PRN Reason: FEVER Amlodipine Besylate (Norvasc -) 10 mg PO DAILY [facility] Enoxaparin Sodium (Lovenox -) 30 mg SQ DAILY [facility] Piperacillin Sod/Tazobactam (Sod 2.25 gm/ Dextrose) 50 mls @ 100 mls/hr IVPB Q8H-IV [facility]; Protocol Isosorbide Mononitrate (Imdur -) 30 mg PO DAILY [facility] Labetalol HCl (Normodyne -) 300 mg PO TID [facility] Lisinopril (Prinivil) 20 mg PO DAILY [facility] Morphine Sulfate (Morphine Sulfate) 3 mg IVPUSH Q4H PRN PRN Reason: PAIN LEVEL 4 - 6 Last Admin: 10/13/18 03:55 Dose: 3 mg - Objective Vital Signs: Vital Signs Temperature 97.6 F 10/13/18 11:25 Pulse Rate 105 H 10/13/18 15:34 Respiratory Rate 18 10/13/18 15:34 Blood Pressure 146/90 10/13/18 15:34 O2 Sat by Pulse Oximetry (%) 99 10/12/18 19:10 Constitutional: Yes: No Distress HENT: Yes: Other (swollen face) Neck: Yes: Supple Cardiovascular: Yes: Regular Rate and Rhythm Respiratory: Yes: CTA Bilaterally Extremities: Yes: WNL Edema: Yes Edema: LUE: 1+ Peripheral Pulses WNL: Yes Neurological: Yes: Alert, Oriented Labs: CBC, BMP 10/12/18 19:15 10/12/18 21:45 INR, PTT INR 1.17 (0.83-1.09) H 10/12/18 19:15 Problem List - Problems (1) Dialysis catheter clot or failure Assessment/Plan: vascular to see patient Code(s): [id number] - (2) ESRD (end stage renal disease) Assessment/Plan: on HD Code(s): N18.6 - END STAGE RENAL DISEASE (3) Hypertension Assessment/Plan: stable continue home meds Code(s): I10 - ESSENTIAL (PRIMARY) HYPERTENSION Qualifiers:
--- NOTE | 2018-10-13 16:40 | PN ---
Teaching Attending Note Name of Resident: Moi Giang (Nephrology) ATTENDING PHYSICIAN STATEMENT I saw and evaluated the patient. I reviewed the resident's note and discussed the case with the resident. I agree with the resident's findings and plan as documented. Renal Pt is a 58 year old male with pmhx of ESRD, anemia, HTN, and non compliance who presents to the ER with with arm pain and has bee worsening.He has had multiple failed fistulas. He has also had long standing catheters. He is due for HD today. pmhx esrd htn anemia pshx avf nkda social denies family hx denies Current Medications Generic Name Dose Route Start Last Admin Trade Name Freq PRN Reason Stop Dose Admin Acetaminophen 650 mg 10/12/18 21:50 Tylenol - PO Q6H PRN FEVER Amlodipine Besylate 10 mg 10/13/18 10:00 Norvasc - PO DAILY [facility] Enoxaparin Sodium 30 mg 10/13/18 10:00 Lovenox - SQ DAILY [facility] Piperacillin Sod/Tazobactam 50 mls @ 100 mls/hr 10/13/18 12:45 Sod 2.25 gm/ Dextrose IVPB Q8H-IV [facility] Protocol Isosorbide Mononitrate 30 mg 10/13/18 10:00 Imdur - PO DAILY [facility] Labetalol HCl 300 mg 10/13/18 07:57 Normodyne - PO TID [facility] Lisinopril 20 mg 10/13/18 10:00 Prinivil PO DAILY [facility] Morphine Sulfate 3 mg 10/12/18 21:50 10/13/18 03:55 Morphine Sulfate IVPUSH 3 mg Q4H PRN Administration PAIN LEVEL 4 - 6 Laboratory Tests 10/12/18 10/12/18 10/13/18 19:15 21:45 11:30 Hgb 10.9 L Sodium 140 Potassium 5.1 BUN 65 H Creatinine 12.0 H* Hepatitis A Ab Total Hep Bs Antigen Hep Bs Antibody Hep B Core Total Ab Hep C Ab Diagnostic Pending 10/13/18 11:30 Hgb Sodium Potassium BUN Creatinine Hepatitis A Ab Total Pending Hep Bs Antigen Pending Hep Bs Antibody Pending Hep B Core Total Ab Pending Hep C Ab Diagnostic Last Vital Signs Temp Pulse Resp BP Pulse Ox 97.6 F 105 H 18 146/90 99 10/13/18 11:25 10/13/18 15:34 10/13/18 15:34 10/13/18 15:34 10/12/18 19:10 cardio s1s1 pulm rhonchi GI soft facial swelling ext left arm swelling neuro awake and alert Impression 1. ESRD 2. HTN 3. HD access malfunction 4. anemia 5. left arm swelling 6. non compliance Plan - HD today - epogen for anemia - pt going for venogram tomorrow - resume bp meds - will follow Dr Ramos
[2018-10-13] MEDS ORDERED: PT OWN MED DRAWER 7, Y5N ONE ×2 (18:30→18:37)
[2018-10-13] MEDS ORDERED: PIPERACILLIN/TAZOB 2.25 GM 2.25 GM/50 ML BAG IVPB ONE (18:52)
[2018-10-14] MEDS ORDERED: ACETAMINOPHEN 325 MG TABLET (FP) ONE (00:07)
[2018-10-14] MEDS ORDERED: PIPERACILLIN/TAZOB 2.25 GM 2.25 GM/50 ML BAG IVPB ONE (02:40)
[2018-10-14] MEDS: PIPERACILLIN/TAZOB 2.25 GM 2.25 GM in DEXTROSE 5%-WATER - 50 ML IVPB SCH ×3 (02:54→17:27)
[2018-10-14 04:12] VITALS: BMI 24.7
[2018-10-14] MEDS: LABETALOL HCL 100 MG TABLET (FP) PO SCH ×2 (05:23→15:32)
[2018-10-14] MEDS ORDERED: PIPERACILLIN/TAZOBACTAM 2.25 GM VIAL IVPB ONE ×2 (09:18→17:26)
[2018-10-14] MEDS ORDERED: DEXTROSE 5%-WATER - 50 ML IVPB ONE ×2 (09:18→17:26)
[2018-10-14] MEDS: ENOXAPARIN NA (PORCINE) 30 MG/0.3 ML DISP.SYRIN SQ SCH (09:20)
[2018-10-14] MEDS: ISOSORBIDE MONONITRATE 30 MG TAB.SR.24H (FP) PO SCH (09:21)
[2018-10-14] MEDS: amLODIPine BESYLATE 10 MG TABLET (FP) PO SCH (09:21)
[2018-10-14] MEDS: LISINOPRIL 20 MG TABLET (FP) PO SCH (09:21)
[2018-10-14] MEDS ORDERED: SODIUM CHLORIDE 250 ML IV PRN ×2 (10:00→12:33)
[2018-10-14] MEDS ORDERED: MIDAZOLAM HCL 2 MG/2 ML SINGLE DOSE VIAL ONE (11:54)
[2018-10-14] MEDS ORDERED: DEXMEDETOMIDINE HCL 200 MCG/2 ML ML IVPB ONE (11:57)
[2018-10-14] MEDS ORDERED: HEPARIN NA (PORCINE) 5,000 UNITS/ML 1ML VIAL ONE (12:14)
--- NOTE | 2018-10-14 12:33 | PN ---
Progress Note, Physician History of Present Illness: Pt seen and examined at bedside. He is awake and alert. He is going to OR today. - Current Medication List Current Medications: Active Medications Acetaminophen (Tylenol -) 650 mg PO Q6H PRN PRN Reason: FEVER Last Admin: 10/14/18 00:07 Dose: 650 mg Amlodipine Besylate (Norvasc -) 10 mg PO DAILY [facility] Last Admin: 10/14/18 09:21 Dose: 10 mg Enoxaparin Sodium (Lovenox -) 30 mg SQ DAILY [facility] Last Admin: 10/14/18 09:20 Dose: 30 mg Piperacillin Sod/Tazobactam (Sod 2.25 gm/ Dextrose) 50 mls @ 100 mls/hr IVPB Q8H-IV [facility]; Protocol Last Admin: 10/14/18 09:21 Dose: 100 mls/hr Isosorbide Mononitrate (Imdur -) 30 mg PO DAILY [facility] Last Admin: 10/14/18 09:21 Dose: 30 mg Labetalol HCl (Normodyne -) 300 mg PO TID [facility] Last Admin: 10/14/18 05:23 Dose: 300 mg Lisinopril (Prinivil) 20 mg PO DAILY [facility] Last Admin: 10/14/18 09:21 Dose: 20 mg Morphine Sulfate (Morphine Sulfate) 3 mg IVPUSH Q4H PRN PRN Reason: PAIN LEVEL 4 - 6 Last Admin: 10/13/18 03:55 Dose: 3 mg - Objective Vital Signs: Vital Signs Temperature 98.1 F 10/14/18 10:00 Pulse Rate 77 10/14/18 10:00 Respiratory Rate 18 10/14/18 10:00 Blood Pressure 117/63 10/14/18 10:00 O2 Sat by Pulse Oximetry (%) 97 10/14/18 04:00 Constitutional: Yes: Calm Eyes: Yes: Conjunctiva Clear HENT: Yes: Other (facial swelling) Cardiovascular: Yes: S1, S2 Respiratory: Yes: CTA Bilaterally Gastrointestinal: Yes: Soft Genitourinary: Yes: WNL Edema: Yes Edema: LUE: 2+ Neurological: Yes: Oriented Psychiatric: Yes: Oriented Labs: CBC, BMP 10/12/18 19:15 10/12/18 21:45 INR, PTT INR 1.17 (0.83-1.09) H 10/12/18 19:15 Problem List - Problems (1) Swollen arm Code(s): M79.89 - OTHER SPECIFIED SOFT TISSUE DISORDERS (2) ESRD (end stage renal disease) Code(s): N18.6 - END STAGE RENAL DISEASE Assessment/Plan Current Medications Generic Name Dose Route Start Last Admin Trade Name Freq PRN Reason Stop Dose Admin Acetaminophen 650 mg 10/12/18 21:50 10/14/18 00:07 Tylenol - PO 650 mg Q6H PRN Administration FEVER Amlodipine Besylate 10 mg 10/13/18 10:00 10/14/18 09:21 Norvasc - PO 10 mg DAILY [facility] Administration Enoxaparin Sodium 30 mg 10/13/18 10:00 10/14/18 09:20 Lovenox - SQ 30 mg DAILY [facility] Administration Piperacillin Sod/Tazobactam 50 mls @ 100 mls/hr 10/13/18 12:45 10/14/18 09:21 Sod 2.25 gm/ Dextrose IVPB 100 mls/hr Q8H-IV [facility] Administration Protocol Isosorbide Mononitrate 30 mg 10/13/18 10:00 10/14/18 09:21 Imdur - PO 30 mg DAILY [facility] Administration Labetalol HCl 300 mg 10/13/18 07:57 10/14/18 05:23 Normodyne - PO 300 mg TID [facility] Administration Lisinopril 20 mg 10/13/18 10:00 10/14/18 09:21 Prinivil PO 20 mg DAILY [facility] Administration Morphine Sulfate 3 mg 10/12/18 21:50 10/13/18 03:55 Morphine Sulfate IVPUSH 3 mg Q4H PRN Administration PAIN LEVEL 4 - 6 Impression 1. ESRD 2. HTN 3. HD access malfunction 4. anemia 5. left arm swelling 6. non compliance Plan - pt going to OR today - will arrange for HD tomorrow - follow up venogram - pt going for venogram tomorrow - monitor bp - will follow Dr Ramos
--- NOTE | 2018-10-14 12:37 | PN ---
Progress Note, Physician - Current Medication List Current Medications: Active Medications Acetaminophen (Tylenol -) 650 mg PO Q6H PRN PRN Reason: FEVER Last Admin: 10/14/18 00:07 Dose: 650 mg Amlodipine Besylate (Norvasc -) 10 mg PO DAILY [facility] Last Admin: 10/14/18 09:21 Dose: 10 mg Enoxaparin Sodium (Lovenox -) 30 mg SQ DAILY [facility] Last Admin: 10/14/18 09:20 Dose: 30 mg Epoetin Refugio (Procrit -) 5,000 unit IVPUSH ONCE ONE Stop: 10/15/18 12:35 Piperacillin Sod/Tazobactam (Sod 2.25 gm/ Dextrose) 50 mls @ 100 mls/hr IVPB Q8H-IV [facility]; Protocol Last Admin: 10/14/18 09:21 Dose: 100 mls/hr Sodium Chloride (Normal Saline -) 250 mls @ 3,000 mls/hr IV PRN PRN PRN Reason: Hypotension during Dialysis Stop: 10/15/18 12:33 Isosorbide Mononitrate (Imdur -) 30 mg PO DAILY [facility] Last Admin: 10/14/18 09:21 Dose: 30 mg Labetalol HCl (Normodyne -) 300 mg PO TID [facility] Last Admin: 10/14/18 05:23 Dose: 300 mg Lisinopril (Prinivil) 20 mg PO DAILY [facility] Last Admin: 10/14/18 09:21 Dose: 20 mg Morphine Sulfate (Morphine Sulfate) 3 mg IVPUSH Q4H PRN PRN Reason: PAIN LEVEL 4 - 6 Last Admin: 10/13/18 03:55 Dose: 3 mg - Objective Vital Signs: Vital Signs Temperature 98.1 F 10/14/18 10:00 Pulse Rate 77 10/14/18 10:00 Respiratory Rate 18 10/14/18 10:00 Blood Pressure 117/63 10/14/18 10:00 O2 Sat by Pulse Oximetry (%) 97 10/14/18 04:00 Labs: CBC, BMP 10/12/18 19:15 10/12/18 21:45 INR, PTT INR 1.17 (0.83-1.09) H 10/12/18 19:15
[2018-10-14] MEDS ORDERED: LIDOCAINE HCL 1%, 10 MG/ML (20ML VIAL) PNB ONE (12:39)
[2018-10-14] MEDS ORDERED: HEPARIN NA (PORCINE) 5,000 UNITS/ML 1ML VIAL SQ ONE (12:40)
--- NOTE | 2018-10-14 13:13 | OP ---
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
[2018-10-14] MEDS ORDERED: morphine SULFATE 4 MG/ML VIAL IVPUSH PRN (13:32)
[2018-10-14] MEDS ORDERED: ACETAMINOPHEN 325 MG TABLET (FP) PO PRN (13:32)
--- NOTE | 2018-10-14 13:42 | SURG ---
Surgery Electrodynamicist Note Electrodynamicist: Lennie Ramírez PA-C Date of Service: 10/14/18 Diagnosis: Venous hypertension left arm Procedure: Venogram left arm and venoplasty of left subclavian and innominate veins I was present for the entirety of the operative procedure. For further detail, please refer to operative report. Visit type - Case Type Case Type: ED Admission - Emergency Emergency Visit: Yes ED Registration Date: 10/12/18 Care time: The patient presented to the Emergency Department on the above date and was hospitalized for further evaluation of their emergent condition. - New patient This patient is new to me today: Yes Date on this admission: 10/14/18
[2018-10-14] MEDS ORDERED: ONDANSETRON 4 MG/2 ML VIAL IVPUSH PRN (13:53)
[2018-10-14] MEDS ORDERED: SODIUM CHLORIDE 1,000 ML IV SCH (14:00)
--- NOTE | 2018-10-14 15:21 | PN ---
Progress Note, Physician - Current Medication List Current Medications: Active Medications Acetaminophen (Tylenol -) 650 mg PO Q6H PRN PRN Reason: FEVER Amlodipine Besylate (Norvasc -) 10 mg PO DAILY [facility] Enoxaparin Sodium (Lovenox -) 30 mg SQ DAILY [facility] Epoetin Refugio (Procrit -) 5,000 unit IVPUSH ONCE ONE Stop: 10/15/18 12:35 Fentanyl (Sublimaze Injection -) 25 mcg IVPUSH [id number] PRN PRN Reason: PAIN-PACU ORDER X 4 DOSES ONLY Sodium Chloride (Normal Saline -) 250 mls @ 3,000 mls/hr IV PRN PRN PRN Reason: Hypotension during Dialysis Stop: 10/15/18 12:33 Piperacillin Sod/Tazobactam (Sod 2.25 gm/ Dextrose) 50 mls @ 100 mls/hr IVPB Q8H-IV [facility]; Protocol Sodium Chloride (Normal Saline -) 1,000 mls @ 42 mls/hr IV ASDIR [facility] Isosorbide Mononitrate (Imdur -) 30 mg PO DAILY [facility] Labetalol HCl (Normodyne -) 300 mg PO TID [facility] Lisinopril (Prinivil) 20 mg PO DAILY [facility] Morphine Sulfate (Morphine Sulfate) 3 mg IVPUSH Q4H PRN PRN Reason: PAIN LEVEL 4 - 6 Ondansetron HCl (Zofran Injection) 4 mg IVPUSH Q6H PRN PRN Reason: NAUSEA AND/OR VOMITING - Objective Vital Signs: Vital Signs Temperature 98.1 F 10/14/18 14:40 Pulse Rate 78 10/14/18 14:40 Respiratory Rate 18 10/14/18 14:40 Blood Pressure 96/55 L 10/14/18 14:40 O2 Sat by Pulse Oximetry (%) 95 10/14/18 14:30 Constitutional: Yes: No Distress HENT: Yes: Atraumatic, Other (face swollen) Neck: Yes: Supple Cardiovascular: Yes: Regular Rate and Rhythm Respiratory: Yes: CTA Bilaterally Gastrointestinal: Yes: Normal Bowel Sounds Extremities: Yes: WNL Edema: No Peripheral Pulses WNL: Yes Neurological: Yes: Alert, Oriented Labs: CBC, BMP 10/12/18 19:15 10/12/18 21:45 INR, PTT INR 1.17 (0.83-1.09) H 10/12/18 19:15 Problem List - Problems (1) Dialysis catheter clot or failure Assessment/Plan: for procedure Code(s): [id number] - (2) ESRD (end stage renal disease) Assessment/Plan: on HD Code(s): N18.6 - END STAGE RENAL DISEASE (3) Hypertension Assessment/Plan: stable continue home meds Code(s): I10 - ESSENTIAL (PRIMARY) HYPERTENSION Qualifiers:
--- NOTE | 2018-10-14 16:13 | OP ---
DATE OF OPERATION: 10/14/2018 SURGEON: Charlie Curry MD BRANCH SERVICE ASSOCIATE: REJI Ramírez PROCEDURE: Left arm venogram with angioplasty of the superior vena cava and innominate vein and left subclavian vein. PREOPERATIVE DIAGNOSIS: Left arm swelling due to venous hypertension. POSTOPERATIVE DIAGNOSIS: Left arm swelling due to venous hypertension with stenosis of the innominate and left subclavian veins. ANESTHESIA: Fractional. FINDINGS: The left basilic vein fistula was patent. There was moderate narrowing between 50% and 70% in the mid subclavian vein at the entry site of the Permacath. There was also narrowing of the junction of the innominate vein and superior vena cava with backfilling of jugular venous collaterals. OPERATIVE PROCEDURE: Following routine patient identification with side and site verification, intravenous sedation was established. The left arm and chest were prepped with ChloraPrep. Using real-time duplex imaging, the left arm fistula was identified in the upper arm. Timeout was performed. One-percent lidocaine was infiltrated over the fistula, and the fistula was cannulated with a micropuncture needle. The needle was exchanged for a 5-Serbian catheter. The catheter was then exchanged over a wire for a 7-Serbian sheath which was later upsized to an 8-Serbian sheath. Venography was then performed with contrast with the above-noted findings. A wire and catheter were advanced up to the innominate vein and repeat imaging of the superior vena cava obtained with direct injection. The wire was then passed into the right atrium. The superior vena cava and innominate vein were then dilated with a 6-mm diameter balloon to nominal pressure. The subclavian vein stenosis was dilated with a 10 mm balloon. Completion imaging revealed patent venous structure with decrease in the degree of stenosis and less filling of the venous collaterals. The wire and sheath were removed, and bleeding controlled with a mattress suture of 3-0 nylon on the skin and sterile dressings were applied. The patient was taken to the recovery room in stable condition. CHARLIE CURRY M.D. ISMAEL/[id number]
[2018-10-14] MEDS ORDERED: INSULIN (NOVOLOG) ASPART 100 UNITS/ML 10ML VIAL ONE (18:34)
[2018-10-14] MEDS ORDERED: PT OWN MED DRAWER 7, Y5N ONE (18:34)
[2018-10-15 00:07] LABS: HBSAG SCREEN Negative (Negative); HEP A AB, IGM Negative (Negative); HEP B CORE AB, TOT Negative (Negative)
[2018-10-15] MEDS ORDERED: PIPERACILLIN/TAZOBACTAM 2.25 GM VIAL IVPB ONE ×2 (01:10→17:33)
[2018-10-15] MEDS ORDERED: DEXTROSE 5%-WATER - 50 ML IVPB ONE ×2 (01:11→17:33)
[2018-10-15] MEDS: PIPERACILLIN/TAZOB 2.25 GM 2.25 GM in DEXTROSE 5%-WATER - 50 ML IVPB SCH ×3 (02:09→19:03)
[2018-10-15] MEDS: LABETALOL HCL 100 MG TABLET (FP) PO SCH ×4 (03:45→22:37)
[2018-10-15 09:08] LABS: BASO % 1.2 % (0-2.0); EOS % 10.2 % (0-4.5); HEMATOCRIT 30.9 % (35.4-49); HEMOGLOBIN 9.9 GM/dL (11.7-16.9); LYMPH % 18.9 % (8-40); MCH 27.6 pg (25.7-33.7); MEAN CELL VOLUME 86.2 fl (80-96); MEAN PLT VOLUME 7.4 fl (7.5-11.1); MONO % 9.5 % (3.8-10.2); NEUT % 60.2 % (42.8-82.8); PLATELET COUNT 200 K/MM3 (134-434); RBC 3.58 M/mm3 (4.00-5.60); WHITE BLOOD COUNT 6.2 K/mm3 (4.0-10.0)
[2018-10-15] MEDS ORDERED: ENOXAPARIN NA (PORCINE) 30 MG/0.3 ML DISP.SYRIN SQ SCH (10:00)
[2018-10-15] MEDS ORDERED: EPOETIN ALFA 3,000 UNIT, EPOETIN ALFA 2,000 UNIT IVPUSH ONE (10:00)
[2018-10-15 10:04] LABS: ANION GAP 11 MMOL/L (8-16); BLOOD UREA NITROGEN 49 mg/dL (7-18); CHLORIDE 102 mmol/L (98-107); CO2 26 mmol/L (21-32); GLUCOSE,RANDOM 100 mg/dL (74-106); SODIUM 140 mmol/L (136-145)
[2018-10-15] MEDS: amLODIPine BESYLATE 10 MG TABLET (FP) PO SCH (10:12)
[2018-10-15] MEDS: ISOSORBIDE MONONITRATE 30 MG TAB.SR.24H (FP) PO SCH (10:12)
[2018-10-15] MEDS: LISINOPRIL 20 MG TABLET (FP) PO SCH (10:13)
[2018-10-15 10:32] LABS: CREATININE 11.4 mg/dL (0.55-1.3)
[2018-10-15 10:33] LABS: CALCIUM 6.4 mg/dL (8.5-10.1)
[2018-10-15] MEDS ORDERED: PARICALCITOL 5 MCG/ML VIAL IVPUSH ONE (11:50)
[2018-10-15] MEDS ORDERED: EPOETIN ALFA 10,000 UNIT/1 ML VIAL IVPUSH ONE ×2 (12:34)
--- NOTE | 2018-10-15 12:45 | PN ---
Progress Note, Physician - Current Medication List Current Medications: Active Medications Acetaminophen (Tylenol -) 650 mg PO Q6H PRN PRN Reason: FEVER Amlodipine Besylate (Norvasc -) 10 mg PO DAILY [facility] Last Admin: 10/15/18 10:12 Dose: Not Given Enoxaparin Sodium (Lovenox -) 30 mg SQ DAILY [facility] Last Admin: 10/15/18 10:12 Dose: Not Given Fentanyl (Sublimaze Injection -) 25 mcg IVPUSH [id number] PRN PRN Reason: PAIN-PACU ORDER X 4 DOSES ONLY Piperacillin Sod/Tazobactam (Sod 2.25 gm/ Dextrose) 50 mls @ 100 mls/hr IVPB Q8H-IV [facility]; Protocol Last Admin: 10/15/18 10:13 Dose: Not Given Isosorbide Mononitrate (Imdur -) 30 mg PO DAILY [facility] Last Admin: 10/15/18 10:12 Dose: Not Given Labetalol HCl (Normodyne -) 300 mg PO TID [facility] Last Admin: 10/15/18 05:53 Dose: Not Given Lisinopril (Prinivil) 20 mg PO DAILY [facility] Last Admin: 10/15/18 10:13 Dose: Not Given Morphine Sulfate (Morphine Sulfate) 3 mg IVPUSH Q4H PRN PRN Reason: PAIN LEVEL 4 - 6 Ondansetron HCl (Zofran Injection) 4 mg IVPUSH Q6H PRN PRN Reason: NAUSEA AND/OR VOMITING - Objective Vital Signs: Vital Signs Temperature 98 F 10/15/18 08:10 Pulse Rate 70 10/15/18 12:20 Respiratory Rate 18 10/15/18 12:20 Blood Pressure 151/91 10/15/18 12:20 O2 Sat by Pulse Oximetry (%) 98 10/14/18 21:00 Labs: CBC, BMP 10/15/18 08:15 10/15/18 08:15 INR, PTT INR 1.17 (0.83-1.09) H 10/12/18 19:15
--- NOTE | 2018-10-15 15:06 | PN ---
Progress Note, Physician History of Present Illness: feeling better - Current Medication List Current Medications: Active Medications Acetaminophen (Tylenol -) 650 mg PO Q6H PRN PRN Reason: FEVER Amlodipine Besylate (Norvasc -) 10 mg PO DAILY [facility] Last Admin: 10/15/18 10:12 Dose: Not Given Enoxaparin Sodium (Lovenox -) 30 mg SQ DAILY [facility] Last Admin: 10/15/18 10:12 Dose: Not Given Fentanyl (Sublimaze Injection -) 25 mcg IVPUSH [id number] PRN PRN Reason: PAIN-PACU ORDER X 4 DOSES ONLY Piperacillin Sod/Tazobactam (Sod 2.25 gm/ Dextrose) 50 mls @ 100 mls/hr IVPB Q8H-IV [facility]; Protocol Last Admin: 10/15/18 10:13 Dose: Not Given Isosorbide Mononitrate (Imdur -) 30 mg PO DAILY [facility] Last Admin: 10/15/18 10:12 Dose: Not Given Labetalol HCl (Normodyne -) 300 mg PO TID [facility] Last Admin: 10/15/18 13:34 Dose: 300 mg Lisinopril (Prinivil) 20 mg PO DAILY [facility] Last Admin: 10/15/18 10:13 Dose: Not Given Morphine Sulfate (Morphine Sulfate) 3 mg IVPUSH Q4H PRN PRN Reason: PAIN LEVEL 4 - 6 Ondansetron HCl (Zofran Injection) 4 mg IVPUSH Q6H PRN PRN Reason: NAUSEA AND/OR VOMITING - Objective Vital Signs: Vital Signs Temperature 97.9 F 10/15/18 13:22 Pulse Rate 92 H 10/15/18 13:22 Respiratory Rate 24 H 10/15/18 13:22 Blood Pressure 156/84 10/15/18 13:22 O2 Sat by Pulse Oximetry (%) 98 10/14/18 21:00 Constitutional: Yes: No Distress HENT: Yes: Other (swelling much imroved on face) Neck: Yes: Supple Cardiovascular: Yes: Regular Rate and Rhythm Respiratory: Yes: CTA Bilaterally Gastrointestinal: Yes: Normal Bowel Sounds Extremities: Yes: WNL Edema: No Neurological: Yes: Alert, Oriented Labs: CBC, BMP 10/15/18 08:15 10/15/18 08:15 INR, PTT INR 1.17 (0.83-1.09) H 10/12/18 19:15 Problem List - Problems (1) Dialysis catheter clot or failure Assessment/Plan: s/p procedure doing well Code(s): GPP1377 - (2) ESRD (end stage renal disease) Assessment/Plan: on HD Code(s): N18.6 - END STAGE RENAL DISEASE (3) Hypertension Assessment/Plan: stable continue home meds Code(s): I10 - ESSENTIAL (PRIMARY) HYPERTENSION Qualifiers:
[2018-10-15] MEDS ORDERED: CALCIUM GLUCONATE 10% - 1,000 MG/10 ML VIAL IVPB ONE (15:28)
--- NOTE | 2018-10-15 15:30 | PN ---
Progress Note, Physician History of Present Illness: Pt seen and examined at bedside. He is tolerating HD. - Current Medication List Current Medications: Active Medications Acetaminophen (Tylenol -) 650 mg PO Q6H PRN PRN Reason: FEVER Amlodipine Besylate (Norvasc -) 10 mg PO DAILY [facility] Last Admin: 10/15/18 10:12 Dose: Not Given Calcium Gluconate (Calcium Gluconate 10% -) 1,000 mg IVPB ONCE ONE Stop: 10/15/18 15:29 Enoxaparin Sodium (Lovenox -) 30 mg SQ DAILY [facility] Last Admin: 10/15/18 10:12 Dose: Not Given Fentanyl (Sublimaze Injection -) 25 mcg IVPUSH [id number] PRN PRN Reason: PAIN-PACU ORDER X 4 DOSES ONLY Piperacillin Sod/Tazobactam (Sod 2.25 gm/ Dextrose) 50 mls @ 100 mls/hr IVPB Q8H-IV [facility]; Protocol Last Admin: 10/15/18 10:13 Dose: Not Given Isosorbide Mononitrate (Imdur -) 30 mg PO DAILY [facility] Last Admin: 10/15/18 10:12 Dose: Not Given Labetalol HCl (Normodyne -) 300 mg PO TID [facility] Last Admin: 10/15/18 13:34 Dose: 300 mg Lisinopril (Prinivil) 20 mg PO DAILY [facility] Last Admin: 10/15/18 10:13 Dose: Not Given Morphine Sulfate (Morphine Sulfate) 3 mg IVPUSH Q4H PRN PRN Reason: PAIN LEVEL 4 - 6 Ondansetron HCl (Zofran Injection) 4 mg IVPUSH Q6H PRN PRN Reason: NAUSEA AND/OR VOMITING - Objective Vital Signs: Vital Signs Temperature 98.4 F 10/15/18 14:24 Pulse Rate 85 10/15/18 14:24 Respiratory Rate 20 10/15/18 14:24 Blood Pressure 133/78 10/15/18 14:24 O2 Sat by Pulse Oximetry (%) 98 10/14/18 21:00 Constitutional: Yes: Calm Eyes: Yes: Conjunctiva Clear HENT: Yes: Atraumatic Cardiovascular: Yes: S1, S2 Respiratory: Yes: CTA Bilaterally Gastrointestinal: Yes: Soft Genitourinary: Yes: WNL Edema: LUE: 2+ Neurological: Yes: Oriented Psychiatric: Yes: Oriented Labs: CBC, BMP 10/15/18 08:15 10/15/18 08:15 INR, PTT INR 1.17 (0.83-1.09) H 10/12/18 19:15 Problem List - Problems (1) Swollen arm Code(s): M79.89 - OTHER SPECIFIED SOFT TISSUE DISORDERS (2) ESRD (end stage renal disease) Code(s): N18.6 - END STAGE RENAL DISEASE Assessment/Plan Current Medications Generic Name Dose Route Start Last Admin Trade Name Freq PRN Reason Stop Dose Admin Acetaminophen 650 mg 10/14/18 13:32 Tylenol - PO Q6H PRN FEVER Amlodipine Besylate 10 mg 10/15/18 10:00 10/15/18 10:12 Norvasc - PO Not Given DAILY [facility] Calcium Carbonate/Cholecalciferol 2 tab 10/15/18 15:28 Os-Justin 500+D - PO DAILY [facility] Calcium Gluconate 1,000 mg 10/15/18 15:28 Calcium Gluconate 10% - IVPB 10/15/18 15:29 ONCE ONE Enoxaparin Sodium 30 mg 10/15/18 10:00 10/15/18 10:12 Lovenox - SQ Not Given DAILY [facility] Fentanyl 25 mcg 10/14/18 13:53 Sublimaze Injection - IVPUSH [id number] PRN PAIN-PACU ORDER X 4 DOSES ONLY Piperacillin Sod/Tazobactam 50 mls @ 100 mls/hr 10/14/18 18:00 10/15/18 10:13 Sod 2.25 gm/ Dextrose IVPB Not Given Q8H-IV [facility] Protocol Isosorbide Mononitrate 30 mg 10/15/18 10:00 10/15/18 10:12 Imdur - PO Not Given DAILY [facility] Labetalol HCl 300 mg 10/14/18 14:00 10/15/18 13:34 Normodyne - PO 300 mg TID [facility] Administration Lisinopril 20 mg 10/15/18 10:00 10/15/18 10:13 Prinivil PO Not Given DAILY [facility] Morphine Sulfate 3 mg 10/14/18 13:32 Morphine Sulfate IVPUSH Q4H PRN PAIN LEVEL 4 - 6 Ondansetron HCl 4 mg 10/14/18 13:53 Zofran Injection IVPUSH Q6H PRN NAUSEA AND/OR VOMITING Impression 1. ESRD 2. HTN 3. HD access malfunction 4. anemia 5. left arm swelling 6. non compliance 7. hypocalcemia Plan - replace calcium - check phos level - start binders - arm is less swollen, vascular surgery follow up - monitor bp - will follow Dr Ramos
--- NOTE | 2018-10-15 15:32 | PN ---
Progress Note (short form) - Note Progress Note: 58yo M s/p LUE fistulagram POD 1. Pt states that he is feeling well. Pt had dialysis through his permacath today without issues. Last Vital Signs Temp Pulse Resp BP Pulse Ox 98.4 F 85 20 133/78 98 10/15/18 14:24 10/15/18 14:24 10/15/18 14:24 10/15/18 14:24 10/14/18 21:00 CBC, BMP 10/15/18 08:15 10/15/18 08:15 PE: Gen: A&O x 3 Resp: breathing comfortably LUE: Fistula has good thrill, incision is clean with no erythema or discharge. Mild swelling to extremity <Marck Byrd - Last Filed: 10/15/18 15:21> - Note Progress Note: Facial and left arm swelling appear improved. Hand pain less. Will see in office next week. Arm edema will need to decrease further before using fistula. <Charlie Bates - Last Filed: 10/15/18 17:51> Problem List - Problems (1) Venous hypertension of upper extremity Assessment/Plan: Plan -swelling is improved, please f/up with Dr. Bates as outpatient -HD as per renal Code(s): I87.8 - OTHER SPECIFIED DISORDERS OF VEINS <Marck Byrd - Last Filed: 10/15/18 15:21>
[2018-10-15] MEDS: CALCIUM 500MG/VIT-D 200 UNITS COMBO TABLET (FP) PO SCH (17:43)
[2018-10-15] MEDS: SEVELAMER CARBONATE 800 MG TAB (FP) PO SCH (17:43)
[2018-10-15] MEDS ORDERED: INSULIN (NOVOLOG) ASPART 100 UNITS/ML 10ML VIAL ONE (22:24)
[2018-10-15] MEDS: HEPARIN NA (PORCINE) 5,000 UNITS/ML 1ML VIAL SQ SCH (22:38)
[2018-10-16] MEDS ORDERED: PIPERACILLIN/TAZOBACTAM 2.25 GM VIAL IVPB ONE ×3 (01:09→18:28)
[2018-10-16] MEDS ORDERED: DEXTROSE 5%-WATER - 50 ML IVPB ONE ×3 (01:09→18:28)
[2018-10-16] MEDS: PIPERACILLIN/TAZOB 2.25 GM 2.25 GM in DEXTROSE 5%-WATER - 50 ML IVPB SCH ×3 (02:47→18:32)
[2018-10-16] MEDS: LABETALOL HCL 100 MG TABLET (FP) PO SCH ×3 (06:42→21:12)
[2018-10-16 08:05] LABS: ALBUMIN 2.9 g/dl (3.4-5.0); ALK PHOS 106 U/L (45-117); ANION GAP 7 MMOL/L (8-16); BILIRUBIN,TOTAL 0.5 mg/dL (0.2-1); BLOOD UREA NITROGEN 27 mg/dL (7-18); CALCIUM 7.5 mg/dL (8.5-10.1); CHLORIDE 101 mmol/L (98-107); CO2 31 mmol/L (21-32); GLUCOSE,RANDOM 84 mg/dL (74-106); PHOSPHOROUS 4.3 mg/dL (2.5-4.9); POTASSIUM 4.3 mmol/L (3.5-5.1); SGOT/AST 10 U/L (15-37); SGPT/ALT 7 U/L (13-61); SODIUM 139 mmol/L (136-145); TOT PROT 6.3 g/dl (6.4-8.2)
[2018-10-16 08:16] LABS: CREATININE 7.8 mg/dL (0.55-1.3)
[2018-10-16] MEDS: SEVELAMER CARBONATE 800 MG TAB (FP) PO SCH ×3 (08:33→18:32)
--- NOTE | 2018-10-16 10:51 | PN ---
Progress Note, Physician History of Present Illness: patient stable no complaints wound dressing present - Current Medication List Current Medications: Active Medications Acetaminophen (Tylenol -) 650 mg PO Q6H PRN PRN Reason: FEVER Amlodipine Besylate (Norvasc -) 10 mg PO DAILY [facility] Last Admin: 10/15/18 10:12 Dose: Not Given Calcium Carbonate/Cholecalciferol (Os-Justin 500+D -) 2 tab PO DAILY [facility] Last Admin: 10/15/18 17:43 Dose: 2 tab Fentanyl (Sublimaze Injection -) 25 mcg IVPUSH [id number] PRN PRN Reason: PAIN-PACU ORDER X 4 DOSES ONLY Heparin Sodium (Porcine) (Heparin -) 5,000 unit SQ BID [facility] Last Admin: 10/15/18 22:38 Dose: Not Given Piperacillin Sod/Tazobactam (Sod 2.25 gm/ Dextrose) 50 mls @ 100 mls/hr IVPB Q8H-IV [facility]; Protocol Last Admin: 10/16/18 02:47 Dose: 100 mls/hr Isosorbide Mononitrate (Imdur -) 30 mg PO DAILY [facility] Last Admin: 10/15/18 10:12 Dose: Not Given Labetalol HCl (Normodyne -) 300 mg PO TID [facility] Last Admin: 10/16/18 06:42 Dose: 300 mg Lisinopril (Prinivil) 20 mg PO DAILY [facility] Last Admin: 10/15/18 10:13 Dose: Not Given Morphine Sulfate (Morphine Sulfate) 3 mg IVPUSH Q4H PRN PRN Reason: PAIN LEVEL 4 - 6 Ondansetron HCl (Zofran Injection) 4 mg IVPUSH Q6H PRN PRN Reason: NAUSEA AND/OR VOMITING Sevelamer Carbonate (Renvela -) 1,600 mg PO TIDCM [facility] Last Admin: 10/16/18 08:33 Dose: 1,600 mg - Objective Vital Signs: Vital Signs Temperature 98.2 F 10/16/18 06:42 Pulse Rate 84 10/16/18 06:42 Respiratory Rate 22 H 10/16/18 06:42 Blood Pressure 148/97 10/16/18 06:42 O2 Sat by Pulse Oximetry (%) 97 10/15/18 21:00 Constitutional: Yes: No Distress, Calm Cardiovascular: Yes: Regular Rate and Rhythm Respiratory: Yes: Regular, CTA Bilaterally Gastrointestinal: Yes: Normal Bowel Sounds, Soft Musculoskeletal: Yes: WNL Extremities: Yes: Other Wound/Incision: Yes: Dressing Dry and Intact Neurological: Yes: Alert, Oriented Psychiatric: Yes: Alert, Oriented Labs: CBC, BMP 10/15/18 08:15 10/16/18 06:30 INR, PTT INR 1.17 (0.83-1.09) H 10/12/18 19:15 Assessment/Plan 1. ESRD 2. HTN 3. HD access malfunction 4. anemia 5. left arm swelling 6. non compliance patient with venogram and venoplasty plan continue dialysis continue abx swelling has decreased tolerating dialysis rest as per the team
[2018-10-16] MEDS: LISINOPRIL 20 MG TABLET (FP) PO SCH (10:58)
[2018-10-16] MEDS: amLODIPine BESYLATE 10 MG TABLET (FP) PO SCH (10:58)
[2018-10-16] MEDS: ISOSORBIDE MONONITRATE 30 MG TAB.SR.24H (FP) PO SCH (10:58)
[2018-10-16] MEDS: CALCIUM 500MG/VIT-D 200 UNITS COMBO TABLET (FP) PO SCH (10:58)
[2018-10-16] MEDS: HEPARIN NA (PORCINE) 5,000 UNITS/ML 1ML VIAL SQ SCH ×2 (10:58→21:12)
--- NOTE | 2018-10-16 16:43 | PN ---
Progress Note (short form) - Note Progress Note: 1. ESRD 2. HTN 3. HD access malfunction 4. anemia 5. left arm swelling 6. non compliance 7. hypocalcemia no complaints left arm is less swollen than before Current Medications Acetaminophen (Tylenol -) 650 mg PO Q6H PRN PRN Reason: FEVER Amlodipine Besylate (Norvasc -) 10 mg PO DAILY [facility] Last Admin: 10/16/18 10:58 Dose: 10 mg Calcium Carbonate/Cholecalciferol (Os-Justin 500+D -) 2 tab PO DAILY [facility] Last Admin: 10/16/18 10:58 Dose: 2 tab Fentanyl (Sublimaze Injection -) 25 mcg IVPUSH [id number] PRN PRN Reason: PAIN-PACU ORDER X 4 DOSES ONLY Heparin Sodium (Porcine) (Heparin -) 5,000 unit SQ BID [facility] Last Admin: 10/16/18 10:58 Dose: 5,000 unit Piperacillin Sod/Tazobactam (Sod 2.25 gm/ Dextrose) 50 mls @ 100 mls/hr IVPB Q8H-IV [facility]; Protocol Last Admin: 10/16/18 10:58 Dose: 100 mls/hr Isosorbide Mononitrate (Imdur -) 30 mg PO DAILY [facility] Last Admin: 10/16/18 10:58 Dose: 30 mg Labetalol HCl (Normodyne -) 300 mg PO TID [facility] Last Admin: 10/16/18 14:35 Dose: 300 mg Lisinopril (Prinivil) 20 mg PO DAILY [facility] Last Admin: 10/16/18 10:58 Dose: 20 mg Morphine Sulfate (Morphine Sulfate) 3 mg IVPUSH Q4H PRN PRN Reason: PAIN LEVEL 4 - 6 Ondansetron HCl (Zofran Injection) 4 mg IVPUSH Q6H PRN PRN Reason: NAUSEA AND/OR VOMITING Sevelamer Carbonate (Renvela -) 1,600 mg PO TIDCM [facility] Last Admin: 10/16/18 12:12 Dose: 1,600 mg Last Vital Signs Temp Pulse Resp BP Pulse Ox 98.3 F 84 20 115/77 97 10/16/18 14:31 10/16/18 14:31 10/16/18 14:31 10/16/18 14:31 10/15/18 21:00 heent no edema Neck no jvd Lungs rhonchi Heart reg Abd soft Ext no edema CBC, BMP 10/15/18 08:15 10/16/18 06:30 IMP esrd av access malfunction
[2018-10-16] MEDS ORDERED: SODIUM CHLORIDE 250 ML IV PRN (16:54)
--- NOTE | 2018-10-16 18:35 | PN ---
Progress Note, Physician History of Present Illness: feeling better - Current Medication List Current Medications: Active Medications Acetaminophen (Tylenol -) 650 mg PO Q6H PRN PRN Reason: FEVER Amlodipine Besylate (Norvasc -) 10 mg PO DAILY [facility] Last Admin: 10/16/18 10:58 Dose: 10 mg Calcium Carbonate/Cholecalciferol (Os-Justin 500+D -) 2 tab PO DAILY [facility] Last Admin: 10/16/18 10:58 Dose: 2 tab Fentanyl (Sublimaze Injection -) 25 mcg IVPUSH [id number] PRN PRN Reason: PAIN-PACU ORDER X 4 DOSES ONLY Heparin Sodium (Porcine) (Heparin -) 5,000 unit SQ BID [facility] Last Admin: 10/16/18 10:58 Dose: 5,000 unit Piperacillin Sod/Tazobactam (Sod 2.25 gm/ Dextrose) 50 mls @ 100 mls/hr IVPB Q8H-IV [facility]; Protocol Last Admin: 10/16/18 18:32 Dose: 100 mls/hr Sodium Chloride (Normal Saline -) 250 mls @ 3,000 mls/hr IV PRN PRN PRN Reason: Hypotension during Dialysis Stop: 10/17/18 16:54 Isosorbide Mononitrate (Imdur -) 30 mg PO DAILY [facility] Last Admin: 10/16/18 10:58 Dose: 30 mg Labetalol HCl (Normodyne -) 300 mg PO TID [facility] Last Admin: 10/16/18 14:35 Dose: 300 mg Lisinopril (Prinivil) 20 mg PO DAILY [facility] Last Admin: 10/16/18 10:58 Dose: 20 mg Morphine Sulfate (Morphine Sulfate) 3 mg IVPUSH Q4H PRN PRN Reason: PAIN LEVEL 4 - 6 Ondansetron HCl (Zofran Injection) 4 mg IVPUSH Q6H PRN PRN Reason: NAUSEA AND/OR VOMITING Sevelamer Carbonate (Renvela -) 1,600 mg PO TIDCM [facility] Last Admin: 10/16/18 18:32 Dose: 1,600 mg - Objective Vital Signs: Vital Signs Temperature 98.3 F 10/16/18 14:31 Pulse Rate 84 10/16/18 14:31 Respiratory Rate 20 10/16/18 14:31 Blood Pressure 115/77 10/16/18 14:31 O2 Sat by Pulse Oximetry (%) 97 10/15/18 21:00 Constitutional: Yes: No Distress HENT: Yes: Other (facial swelling much improved) Neck: Yes: Supple Cardiovascular: Yes: Regular Rate and Rhythm Respiratory: Yes: CTA Bilaterally Gastrointestinal: Yes: Normal Bowel Sounds Extremities: Yes: Other (left arm swelling much improved) Neurological: Yes: Alert, Oriented Labs: CBC, BMP 10/15/18 08:15 10/16/18 06:30 INR, PTT INR 1.17 (0.83-1.09) H 10/12/18 19:15 Problem List - Problems (1) Dialysis catheter clot or failure Assessment/Plan: s/p procedure doing well Code(s): KPR5550 - (2) ESRD (end stage renal disease) Assessment/Plan: on HD Code(s): N18.6 - END STAGE RENAL DISEASE (3) Hypertension Assessment/Plan: stable continue home meds Code(s): I10 - ESSENTIAL (PRIMARY) HYPERTENSION Qualifiers: Assessment/Plan dc planning for tomorrow
[2018-10-17] MEDS ORDERED: DEXTROSE 5%-WATER - 50 ML IVPB ONE ×2 (00:35→12:17)
[2018-10-17] MEDS ORDERED: PIPERACILLIN/TAZOBACTAM 2.25 GM VIAL IVPB ONE ×2 (00:35→12:17)
[2018-10-17] MEDS: PIPERACILLIN/TAZOB 2.25 GM 2.25 GM in DEXTROSE 5%-WATER - 50 ML IVPB SCH ×2 (01:34→12:53)
[2018-10-17] MEDS: LABETALOL HCL 100 MG TABLET (FP) PO SCH ×2 (06:11→16:05)
[2018-10-17] MEDS: SEVELAMER CARBONATE 800 MG TAB (FP) PO SCH ×2 (08:15→12:52)
[2018-10-17 08:39] VITALS: TEMP 98
[2018-10-17] MEDS: HEPARIN NA (PORCINE) 5,000 UNITS/ML 1ML VIAL SQ SCH (10:00)
--- NOTE | 2018-10-17 11:59 | DS ---
Physical Examination Vital Signs: Vital Signs Temperature 98.0 F 10/17/18 08:20 Pulse Rate 74 10/17/18 09:26 Respiratory Rate 18 10/17/18 09:26 Blood Pressure 137/80 10/17/18 09:26 O2 Sat by Pulse Oximetry (%) 98 10/16/18 21:00 Constitutional: Yes: No Distress HENT: Yes: Atraumatic Neck: Yes: Supple Cardiovascular: Yes: Regular Rate and Rhythm Respiratory: Yes: CTA Bilaterally Gastrointestinal: Yes: Normal Bowel Sounds Extremities: Yes: WNL Edema: No Neurological: Yes: Alert, Oriented Labs: CBC, BMP 10/15/18 08:15 10/16/18 06:30 Discharge Summary Reason For Visit: SWELLING OF UPPER EXTREMITY Current Active Problems Swollen arm (Acute) - Instructions Referrals: Charlie Bates MD [Staff Physician] - - Home Medications Comprehensive Discharge Medication List: Ambulatory Orders Amlodipine Besylate [Norvasc -] 10 mg PO DAILY #30 tablet 03/27/17 Isosorbide Mononitrate [Imdur -] 30 mg PO DAILY #30 tab 06/01/17 Lisinopril 20 mg PO DAILY 02/09/18 Labetalol HCl 300 mg PO TID #90 tablet 06/21/18 Amoxicillin/Potassium Clav [Augmentin 875-125 Tablet] 1 each PO BID #10 tablet 10/16/18 [facility]
[2018-10-17 12:33] VITALS: BP 133/82; PULSE 71
[2018-10-17] MEDS: amLODIPine BESYLATE 10 MG TABLET (FP) PO SCH (12:52)
[2018-10-17] MEDS: ISOSORBIDE MONONITRATE 30 MG TAB.SR.24H (FP) PO SCH (12:52)
[2018-10-17] MEDS: CALCIUM 500MG/VIT-D 200 UNITS COMBO TABLET (FP) PO SCH (12:52)
[2018-10-17] MEDS: LISINOPRIL 20 MG TABLET (FP) PO SCH (12:52)
--- NOTE | 2018-10-17 14:06 | PN ---
Progress Note, Physician History of Present Illness: stable no new issues hand looks much better - Current Medication List Current Medications: Active Medications Acetaminophen (Tylenol -) 650 mg PO Q6H PRN PRN Reason: FEVER Amlodipine Besylate (Norvasc -) 10 mg PO DAILY [facility] Last Admin: 10/17/18 12:52 Dose: 10 mg Calcium Carbonate/Cholecalciferol (Os-Justin 500+D -) 2 tab PO DAILY [facility] Last Admin: 10/17/18 12:52 Dose: 2 tab Fentanyl (Sublimaze Injection -) 25 mcg IVPUSH [id number] PRN PRN Reason: PAIN-PACU ORDER X 4 DOSES ONLY Heparin Sodium (Porcine) (Heparin -) 5,000 unit SQ BID [facility] Last Admin: 10/17/18 10:00 Dose: Not Given Piperacillin Sod/Tazobactam (Sod 2.25 gm/ Dextrose) 50 mls @ 100 mls/hr IVPB Q8H-IV [facility]; Protocol Last Admin: 10/17/18 12:53 Dose: 100 mls/hr Sodium Chloride (Normal Saline -) 250 mls @ 3,000 mls/hr IV PRN PRN PRN Reason: Hypotension during Dialysis Stop: 10/17/18 16:54 Isosorbide Mononitrate (Imdur -) 30 mg PO DAILY [facility] Last Admin: 10/17/18 12:52 Dose: 30 mg Labetalol HCl (Normodyne -) 300 mg PO TID [facility] Last Admin: 10/17/18 06:11 Dose: Not Given Lisinopril (Prinivil) 20 mg PO DAILY [facility] Last Admin: 10/17/18 12:52 Dose: 20 mg Ondansetron HCl (Zofran Injection) 4 mg IVPUSH Q6H PRN PRN Reason: NAUSEA AND/OR VOMITING Sevelamer Carbonate (Renvela -) 1,600 mg PO TIDCM [facility] Last Admin: 10/17/18 12:52 Dose: 1,600 mg - Objective Vital Signs: Vital Signs Temperature 98.0 F 10/17/18 12:30 Pulse Rate 71 10/17/18 13:00 Respiratory Rate 18 10/17/18 13:00 Blood Pressure 133/82 10/17/18 13:00 O2 Sat by Pulse Oximetry (%) 98 10/16/18 21:00 Constitutional: Yes: No Distress, Calm Cardiovascular: Yes: Regular Rate and Rhythm Respiratory: Yes: Regular, CTA Bilaterally Gastrointestinal: Yes: Normal Bowel Sounds, Soft Musculoskeletal: Yes: WNL Extremities: Yes: Other (swelling improved) Neurological: Yes: Alert, Oriented Psychiatric: Yes: Alert, Oriented Labs: CBC, BMP 10/15/18 08:15 10/16/18 06:30 INR, PTT INR 1.17 (0.83-1.09) H 10/12/18 19:15 Assessment/Plan 1. ESRD 2. HTN 3. HD access malfunction 4. anemia 5. left arm swelling 6. non compliance plan continue dialysis complete abx course rest as per the team hand care
--- NOTE | 2018-10-17 14:38 | PN ---
Progress Note (short form) - Note Progress Note: 1. ESRD 2. HTN 3. HD access malfunction 4. anemia 5. left arm swelling 6. non compliance 7. hypocalcemia no complaints left arm is less swollen than before Current Medications Acetaminophen (Tylenol -) 650 mg PO Q6H PRN PRN Reason: FEVER Last Admin: 10/17/18 14:04 Dose: 650 mg Amlodipine Besylate (Norvasc -) 10 mg PO DAILY [facility] Last Admin: 10/17/18 12:52 Dose: 10 mg Calcium Carbonate/Cholecalciferol (Os-Justin 500+D -) 2 tab PO DAILY [facility] Last Admin: 10/17/18 12:52 Dose: 2 tab Fentanyl (Sublimaze Injection -) 25 mcg IVPUSH [id number] PRN PRN Reason: PAIN-PACU ORDER X 4 DOSES ONLY Heparin Sodium (Porcine) (Heparin -) 5,000 unit SQ BID [facility] Last Admin: 10/17/18 10:00 Dose: Not Given Piperacillin Sod/Tazobactam (Sod 2.25 gm/ Dextrose) 50 mls @ 100 mls/hr IVPB Q8H-IV [facility]; Protocol Last Admin: 10/17/18 12:53 Dose: 100 mls/hr Sodium Chloride (Normal Saline -) 250 mls @ 3,000 mls/hr IV PRN PRN PRN Reason: Hypotension during Dialysis Stop: 10/17/18 16:54 Isosorbide Mononitrate (Imdur -) 30 mg PO DAILY [facility] Last Admin: 10/17/18 12:52 Dose: 30 mg Labetalol HCl (Normodyne -) 300 mg PO TID [facility] Last Admin: 10/17/18 06:11 Dose: Not Given Lisinopril (Prinivil) 20 mg PO DAILY [facility] Last Admin: 10/17/18 12:52 Dose: 20 mg Ondansetron HCl (Zofran Injection) 4 mg IVPUSH Q6H PRN PRN Reason: NAUSEA AND/OR VOMITING Sevelamer Carbonate (Renvela -) 1,600 mg PO TIDCM [facility] Last Admin: 10/17/18 12:52 Dose: 1,600 mg Last Vital Signs Temp Pulse Resp BP Pulse Ox 98.0 F 71 18 133/82 98 10/17/18 12:30 10/17/18 13:00 10/17/18 13:00 10/17/18 13:00 10/16/18 21:00 heent no edema Neck no jvd Lungs rhonchi Heart reg Abd soft Ext no edema CBC, BMP 10/15/18 08:15 10/16/18 06:30 IMP- esrd av access malfunction Plan- stable during dialysis ok for d/c
== END 2018-10-17 15:49 | disposition home or self-care (01) | DRG 252 ==
LOC: JER 17:00 → JERBED 21:04 → J5S 10-14 04:44
PROVIDERS: ADMIT Internal Medicine; ATTEND Internal Medicine
PROC: 05763ZZ Dilation of Left Subclavian Vein, Percutaneous Approach (ICD-10-PCS; 2018-10-14)
PROC: 05743ZZ Dilation of Left Innominate Vein, Percutaneous Approach (ICD-10-PCS; 2018-10-14)
PROC: B51NYZZ Fluoroscopy of Left Upper Extremity Veins using Other Contrast (ICD-10-PCS; 2018-10-14)
PROC: 5A1D70Z Performance of Urinary Filtration, Intermittent, Less than 6 Hours Per Day (ICD-10-PCS; 2018-10-14)
PROC: 027V3ZZ Dilation of Superior Vena Cava, Percutaneous Approach (ICD-10-PCS; principal; 2018-10-14 12:00)
DX: T82.898A Other specified complication of vascular prosthetic devices, implants and grafts, initial encounter (principal); N18.6 End stage renal disease; I12.0 Hypertensive chronic kidney disease with stage 5 chronic kidney disease or end stage renal disease; I87.1 Compression of vein; T82.858A Stenosis of other vascular prosthetic devices, implants and grafts, initial encounter; I87.8 Other specified disorders of veins; Z99.2 Dependence on renal dialysis; K21.9 Gastro-esophageal reflux disease without esophagitis; D64.9 Anemia, unspecified; Y83.8 Other surgical procedures as the cause of abnormal reaction of the patient, or of later complication, without mention of misadventure at the time of the procedure; Z91.14 Patient's other noncompliance with medication regimen; I87.002 Postthrombotic syndrome without complications of left lower extremity; E83.51 Hypocalcemia
CPT/HCPCS: 36415; 71045-TC-FY; 76000-TC-FY; 80048; 80053; 82550; 82553; 82803; 83605; 84100; 84484; 85025; 85610; 85730; 86704; 86706; 86708; 86803; 86850; 86900; 86901; 87040; 87340; 93005; 93010; 94760; 99285-25; J0885; J1644; J7030

== ENCOUNTER 2019-02-18 12:57 | Observation (INO) | payer OTHER ==
[2019-02-18 13:10] VITALS: BMI 24.9
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
[2019-02-18] MEDS ORDERED: ACETAMINOPHEN 325 MG TABLET (FP) PO ONE (14:09)
[2019-02-18] MEDS ORDERED: ACETAMINOPHEN 325 MG TABLET (FP) ONE (14:44)
[2019-02-18 15:49] LABS: EOS % 4.9 % (0-4.5); HEMATOCRIT 33.6 % (35.4-49); HEMOGLOBIN 11.5 GM/dL (11.7-16.9); LYMPH % 32.2 % (8-40); MCH 29.7 pg (25.7-33.7); MCHC 34.4 g/dl (32.0-35.9); MEAN CELL VOLUME 86.4 fl (80-96); MEAN PLT VOLUME 7.9 fl (7.5-11.1); MONO % 12.1 % (3.8-10.2); NEUT % 49.8 % (42.8-82.8); PLATELET COUNT 233 K/MM3 (134-434); RBC 3.89 M/mm3 (4.00-5.60); WHITE BLOOD COUNT 6.1 K/mm3 (4.0-10.0)
[2019-02-18 18:16] LABS: ALBUMIN 3.4 g/dl (3.4-5.0); ALK PHOS 78 U/L (45-117); ANION GAP 7 MMOL/L (8-16); BILIRUBIN,TOTAL 0.2 mg/dL (0.2-1); BLOOD UREA NITROGEN 46 mg/dL (7-18); CALCIUM 8.2 mg/dL (8.5-10.1); CHLORIDE 106 mmol/L (98-107); CO2 24 mmol/L (21-32); GLUCOSE,RANDOM 71 mg/dL (74-106); SGOT/AST 10 U/L (15-37); SGPT/ALT 9 U/L (13-61); SODIUM 137 mmol/L (136-145); TOT PROT 6.7 g/dl (6.4-8.2)
[2019-02-18 18:20] LABS: CREATININE 12.2 mg/dL (0.55-1.3); POTASSIUM 6.2 mmol/L (3.5-5.1)
--- NOTE | 2019-02-18 18:42 | PDOC ---
*Physical Exam - Vital Signs Last Vital Signs Temp Pulse Resp BP Pulse Ox 98.6 F 70 16 134/74 96 02/18/19 13:08 02/18/19 17:10 02/18/19 17:10 02/18/19 17:10 02/18/19 17:10 - Physical Exam Comments: 02/18/19 18:51 Gen: aaox3, nad head: b/l subconjunctival hematomas, soft tissue swelling around the L eye heart: +s1s2 reg lungs: cta b/l abd: soft, nt/nd +bs ext: no c/c/e, LUE av fistula with thrill and bruit 02/18/19 18:55 Heart Score/ECG Review - ECG Intrepretation Comment:: 02/18/19 19:00 sinus at 75, hyperkalemia on t waves, peaked t waves, L axis, q waves septally which are age indeterminate, t wave inversions septally, abnl ekg ED Treatment Course - LABORATORY CBC & Chemistry Diagram: 02/18/19 14:30 02/18/19 17:20 - ADDITIONAL ORDERS Additional order review: Laboratory Results 02/18/19 02/18/19 17:20 14:30 Sodium 137 Cancelled Potassium 6.2 H* Cancelled Chloride 106 Cancelled Carbon Dioxide 24 Cancelled Anion Gap 7 L Cancelled BUN 46 H Cancelled Creatinine 12.2 H* Cancelled Creat Clearance w eGFR 4.31 Cancelled Random Glucose 71 L Cancelled Calcium 8.2 L Cancelled Total Bilirubin 0.2 Cancelled AST 10 L Cancelled ALT 9 L Cancelled Alkaline Phosphatase 78 Cancelled Total Protein 6.7 Cancelled Albumin 3.4 Cancelled 02/18/19 14:30 RBC 3.89 L MCV 86.4 MCHC 34.4 RDW 17.0 H MPV 7.9 Neutrophils % 49.8 Lymphocytes % 32.2 D Monocytes % 12.1 H Eosinophils % 4.9 H Basophils % 1.0 - Medications Given in the ED: ED Medications Discontinued Medications Generic Name Dose Route Start Last Admin Trade Name Freq PRN Reason Stop Dose Admin Acetaminophen 650 mg 02/18/19 14:09 02/18/19 14:46 Tylenol - PO 02/18/19 14:10 650 mg ONCE ONE Administration Medical Decision Making - Medical Decision Making 02/18/19 18:52 pt signed out by the prior attending pending labs and head/facial bones ct 02/18/19 18:[address] and facial bones were negative potassium 6.[address] Ramos who will arrange for HD tonight no PMD microblog sent to [email or web address] pt with subconjunctival hemorrhages b/l, soft tissue swelling around the R eye 02/18/19 19:55 case discussed with [email or web address] who accepts pt to service for emergent dialysis *DC/Admit/Observation/Transfer Diagnosis at time of Disposition: ESRD (end stage renal disease), Hyperkalemia Subconjunctival hemorrhage Qualifiers: Laterality: right Qualified Code(s): H11.31 - Conjunctival hemorrhage, right eye Head contusion Qualifiers: Encounter type: initial encounter Contusion of head detail: periocular area Laterality: right Qualified Code(s): S00.11XA - Contusion of right eyelid and periocular area, initial encounter - Discharge Dispostion Condition at time of disposition: Fair Decision to Admit order: Yes - Referrals - Patient Instructions - Post Discharge Activity
[2019-02-18] MEDS ORDERED: CALCIUM GLUCONATE 10% - 1,000 MG/10 ML VIAL IVPUSH ONE (18:59)
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
[2019-02-18] MEDS ORDERED: INSULIN REGULAR HUMAN 100 UNITS/ML *VIAL IVPUSH ONE (19:56)
[2019-02-18] MEDS ORDERED: DEXTROSE 50%-WATER - 25 GM/50 ML VIAL IVPUSH ONE (19:56)
[2019-02-18] MEDS ORDERED: CALCIUM GLUCONATE 10% - 1,000 MG/10 ML VIAL ONE (19:57)
[2019-02-18] MEDS ORDERED: INSULIN REGULAR HUMAN 100 UNITS/ML *VIAL ONE (20:00)
[2019-02-18] MEDS ORDERED: DEXTROSE 50%-WATER - 25 GM/50 ML VIAL ONE (20:01)
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
[2019-02-18] MEDS ORDERED: SODIUM CHLORIDE 250 ML IV PRN (21:22)
[2019-02-18] MEDS ORDERED: PARICALCITOL 5 MCG/ML VIAL IVPUSH ONE (21:30)
[2019-02-19 00:13] LABS: ANION GAP 8 MMOL/L (8-16); BLOOD UREA NITROGEN 24 mg/dL (7-18); CALCIUM 8.2 mg/dL (8.5-10.1); CHLORIDE 102 mmol/L (98-107); CO2 29 mmol/L (21-32); CREATININE 6.6 mg/dL (0.55-1.3); GLUCOSE,RANDOM 84 mg/dL (74-106); POTASSIUM 3.9 mmol/L (3.5-5.1); SODIUM 139 mmol/L (136-145)
[2019-02-19] MEDS: LABETALOL HCL 100 MG TABLET (FP) PO SCH ×4 (02:10→21:39)
[2019-02-19] MEDS ORDERED: LABETALOL HCL 100 MG TABLET (FP) ONE ×2 (02:30→06:08)
[2019-02-19 02:36] LABS: ALBUMIN 3.6 g/dl (3.4-5.0); ALK PHOS 76 U/L (45-117); ANION GAP 8 MMOL/L (8-16); BILIRUBIN,TOTAL 0.5 mg/dL (0.2-1); BLOOD UREA NITROGEN 26 mg/dL (7-18); CALCIUM 8.4 mg/dL (8.5-10.1); CHLORIDE 101 mmol/L (98-107); CO2 30 mmol/L (21-32); GLUCOSE,RANDOM 60 mg/dL (74-106); POTASSIUM 4.4 mmol/L (3.5-5.1); SGOT/AST 11 U/L (15-37); SGPT/ALT 9 U/L (13-61); SODIUM 138 mmol/L (136-145); TOT PROT 7.2 g/dl (6.4-8.2)
[2019-02-19 02:39] LABS: CREATININE 7.7 mg/dL (0.55-1.3)
[2019-02-19 06:44] LABS: BASO % 1.3 % (0-2.0); EOS % 4.2 % (0-4.5); HEMOGLOBIN 11.3 GM/dL (11.7-16.9); LYMPH % 30.8 % (8-40); MCH 29.2 pg (25.7-33.7); MCHC 34.2 g/dl (32.0-35.9); MEAN CELL VOLUME 85.4 fl (80-96); MEAN PLT VOLUME 7.4 fl (7.5-11.1); MONO % 9.5 % (3.8-10.2); NEUT % 54.2 % (42.8-82.8); PLATELET COUNT 189 K/MM3 (134-434); RBC 3.86 M/mm3 (4.00-5.60); RDW 16.4 % (11.9-15.9); WHITE BLOOD COUNT 4.7 K/mm3 (4.0-10.0)
[2019-02-19 06:58] LABS: INR 1.12 (0.83-1.09); PROTHROMBIN TIME (PATIENT) 13.2 SEC (9.7-13.0)
[2019-02-19 07:00] LABS: ACTIVATED PTT 33.2 SECONDS (25.2-36.5)
[2019-02-19 07:37] LABS: ALBUMIN 3.4 g/dl (3.4-5.0); ALK PHOS 74 U/L (45-117); ANION GAP 8 MMOL/L (8-16); BILIRUBIN,TOTAL 0.6 mg/dL (0.2-1); BLOOD UREA NITROGEN 28 mg/dL (7-18); CALCIUM 8.2 mg/dL (8.5-10.1); CHLORIDE 100 mmol/L (98-107); CO2 29 mmol/L (21-32); GLUCOSE,RANDOM 76 mg/dL (74-106); MAGNESIUM 2.2 mg/dL (1.8-2.4); PHOSPHOROUS 5.6 mg/dL (2.5-4.9); POTASSIUM 5.2 mmol/L (3.5-5.1); SGOT/AST 9 U/L (15-37); SGPT/ALT 7 U/L (13-61); SODIUM 137 mmol/L (136-145); TOT PROT 6.8 g/dl (6.4-8.2)
[2019-02-19] MEDS: CALCIUM ACETATE 667 MG CAPSULE (FP) PO SCH ×3 (08:19→17:25)
[2019-02-19 08:31] LABS: CREATININE 8.5 mg/dL (0.55-1.3)
[2019-02-19] MEDS ORDERED: SODIUM CHLORIDE 250 ML IV PRN (08:40)
[2019-02-19] MEDS: ISOSORBIDE MONONITRATE 30 MG TAB.SR.24H (FP) PO SCH (09:27)
[2019-02-19] MEDS: amLODIPine BESYLATE 10 MG TABLET (FP) PO SCH (09:27)
[2019-02-19] MEDS ORDERED: LISINOPRIL 20 MG TABLET (FP) PO SCH (10:00)
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
[2019-02-19] MEDS ORDERED: SODIUM POLYSTYRENE SULFONATE 15 GM/60 ML BOTTLE PO ONE (12:12)
[2019-02-19] MEDS ORDERED: CALCIUM GLUCONATE 10% - 1,000 MG/10 ML VIAL IVPUSH ONE (12:13)
[2019-02-19] MEDS ORDERED: DEXTROSE 50%-WATER - 25 GM/50 ML VIAL IVPUSH ONE (12:13)
[2019-02-19] MEDS ORDERED: INSULIN REGULAR HUMAN 100 UNITS/ML *VIAL IVPUSH ONE (12:30)
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
[2019-02-20] MEDS: LABETALOL HCL 100 MG TABLET (FP) PO SCH (06:00)
[2019-02-20 06:01] VITALS: BP 144/84; PULSE 79; TEMP 97.8
[2019-02-20 06:49] LABS: HEMATOCRIT 33.5 % (35.4-49); HEMOGLOBIN 11.5 GM/dL (11.7-16.9); MCH 29.9 pg (25.7-33.7); MCHC 34.4 g/dl (32.0-35.9); MEAN PLT VOLUME 7.7 fl (7.5-11.1); PLATELET COUNT 184 K/MM3 (134-434); RBC 3.85 M/mm3 (4.00-5.60); RDW 16.6 % (11.9-15.9); WHITE BLOOD COUNT 4.4 K/mm3 (4.0-10.0)
[2019-02-20 07:32] LABS: ANION GAP 7 MMOL/L (8-16); BLOOD UREA NITROGEN 16 mg/dL (7-18); CALCIUM 7.7 mg/dL (8.5-10.1); CHLORIDE 100 mmol/L (98-107); CO2 32 mmol/L (21-32); CREATININE 6.1 mg/dL (0.55-1.3); GLUCOSE,RANDOM 78 mg/dL (74-106); MAGNESIUM 2.1 mg/dL (1.8-2.4); PHOSPHOROUS 5.3 mg/dL (2.5-4.9); POTASSIUM 4.4 mmol/L (3.5-5.1); SODIUM 139 mmol/L (136-145)
[2019-02-20] MEDS: ISOSORBIDE MONONITRATE 30 MG TAB.SR.24H (FP) PO SCH (08:47)
[2019-02-20] MEDS: amLODIPine BESYLATE 10 MG TABLET (FP) PO SCH (08:47)
[2019-02-20] MEDS: CALCIUM ACETATE 667 MG CAPSULE (FP) PO SCH (08:47)
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
[2019-02-20 11:15] LABS: HBSAG SCREEN Negative (Negative); HEP A AB, IGM Negative (Negative); HEP B CORE AB, TOT Negative (Negative)
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
--- NOTE | 2019-02-20 17:08 | EKG ---
Test Reason : Blood Pressure : / mmHG Vent. Rate : 080 BPM Atrial Rate : 080 BPM P-R Int : 148 ms QRS Dur : 068 ms QT Int : 360 ms P-R-T Axes : 075 065 072 degrees QTc Int : 415 ms SINUS RHYTHM WITH MARKED SINUS ARRHYTHMIA SEPTAL INFARCT (CITED ON OR BEFORE 26-MAY-2018) ABNORMAL ECG WHEN COMPARED WITH ECG OF 18-FEB-2019 18:57, QRS AXIS SHIFTED RIGHT QUESTIONABLE CHANGE IN INITIAL FORCES OF SEPTAL LEADS Confirmed by ALEJANDRA PUENTE MD ([id number]) on 02/20/2019 5:07:39 PM Referred By: Confirmed By:ALEJANDRA PUENTE MD
--- NOTE | 2019-02-20 17:13 | EKG ---
Test Reason : Blood Pressure : / mmHG Vent. Rate : 075 BPM Atrial Rate : 075 BPM P-R Int : 160 ms QRS Dur : 070 ms QT Int : 358 ms P-R-T Axes : 070 -40 056 degrees QTc Int : 399 ms NORMAL SINUS RHYTHM POSSIBLE LEFT ATRIAL ENLARGEMENT LEFT AXIS DEVIATION SEPTAL INFARCT (CITED ON OR BEFORE 26-MAY-2018) ABNORMAL ECG WHEN COMPARED WITH ECG OF 12-OCT-2018 22:16, QUESTIONABLE CHANGE IN INITIAL FORCES OF SEPTAL LEADS NONSPECIFIC T WAVE ABNORMALITY NO LONGER EVIDENT IN LATERAL LEADS Confirmed by CINDI SPIVEY, ALEJANDRA ([id number]) on 02/20/2019 5:13:32 PM Referred By: Confirmed By:ALEJANDRA PUENTE MD
== END 2019-02-20 09:13 | disposition home or self-care (01) ==
LOC: JER 12:57 → JERBED 18:58 → J4S 02-19 12:02
PROVIDERS: ADMIT Internal Medicine; ATTEND Internal Medicine
PROC: 3E033VG Introduction of Insulin into Peripheral Vein, Percutaneous Approach (ICD-10-PCS; principal; 2019-02-18)
PROC: 3E033GC Introduction of Other Therapeutic Substance into Peripheral Vein, Percutaneous Approach (ICD-10-PCS; 2019-02-18)
DX: E87.5 Hyperkalemia (principal); S00.93XA Contusion of unspecified part of head, initial encounter; S00.11XA Contusion of right eyelid and periocular area, initial encounter; E78.5 Hyperlipidemia, unspecified; E83.52 Hypercalcemia; H11.31 Conjunctival hemorrhage, right eye; I12.0 Hypertensive chronic kidney disease with stage 5 chronic kidney disease or end stage renal disease; N18.6 End stage renal disease; D64.9 Anemia, unspecified; Z99.2 Dependence on renal dialysis; Z91.14 Patient's other noncompliance with medication regimen; V43.62XA Car passenger injured in collision with other type car in traffic accident, initial encounter; Y93.89 Activity, other specified; Y92.488 Other paved roadways as the place of occurrence of the external cause
CPT/HCPCS: 36415; 70450-TC; 70486-TC; 80048; 80053; 83735; 84100; 84132; 85025; 85027; 85610; 85730; 86704; 86706; 86708; 86803; 87340; 93005; 93010; 96374; 96375; 96376; 97116-GP; 97161-GP; 99285-25; G0378

== ENCOUNTER 2019-04-07 10:36 | Emergency (ER) | payer OTHER ==
[2019-04-07 10:43] VITALS: BP 119/64; PULSE 97; TEMP 97.6; BMI 28.0
[2019-04-07] MEDS ORDERED: ACETAMINOPHEN 325 MG TABLET (FP) ONE (11:23)
[2019-04-07] MEDS ORDERED: ACETAMINOPHEN 325 MG TABLET (FP) PO ONE (11:44)
--- NOTE | 2019-04-07 11:51 | PDOC ---
History of Present Illness - General Chief Complaint: Pain Stated Complaint: SORE LF SHOULDER Time Seen by Provider: 04/07/19 11:01 History Source: Patient Exam Limitations: Clinical Condition - History of Present Illness Initial Comments: 04/07/19 11:46 Patient with history of end-stage renal disease with left upper arm shunt for dialysis present with complaint of 4 day history of pain to lateral side of left arm and upper shoulder. Patient reported increased pain with elevation of left arm. Patient denies any trauma or injury to arm. Patient denies numbness or tingling sensation to arm. Patient denies chest pain, shortness of breath, palpitation. Denies any other symptoms Timing/Duration: other (4 days) Past History - Past Medical History Allergies/Adverse Reactions: Allergies Allergy/AdvReac Type Severity Reaction Status Date / Time No Known Allergies Allergy Verified 04/07/19 10:39 Home Medications: Ambulatory Orders Amlodipine Besylate [Norvasc -] 10 mg PO DAILY #30 tablet 03/27/17 Isosorbide Mononitrate [Imdur -] 30 mg PO DAILY #30 tab 06/01/17 Labetalol HCl 300 mg PO TID #90 tablet 06/21/18 Acetaminophen [Tylenol -] 500 mg PO Q4H PRN #20 tablet 04/07/19 Methocarbamol [Robaxin -] 500 mg PO BID PRN #14 tablet 04/07/19 Anemia: No Asthma: Yes (childhood) Cancer: No Cardiac Disorders: No CVA: No COPD: No CHF: No DVT: No Dementia: No Diabetes: No Dialysis: Yes (, , fri) GI Disorders: No Disorders: No HTN: No Hypercholesterolemia: No Liver Disease: No Seizures: No Thyroid Disease: No - Surgical History Abdominal Surgery: No Appendectomy: No Cardiac Surgery: No Cholecystectomy: No Lung Surgery: No Neurologic Surgery: No Orthopedic Surgery: No - Immunization History Immunization Up to Date: Yes - Suicide/Smoking/Psychosocial Hx Smoking History: Never smoked Have you smoked in the past 12 months: No If you are a former smoker, when did you quit?: 7 YRS AGO Information on smoking cessation initiated: No Hx Alcohol Use: No Drug/Substance Use Hx: No Substance Use Type: None Hx Substance Use Treatment: No Review of Systems - Review of Systems Able to Perform ROS?: Yes Is the patient limited Hungarian proficient: No Constitutional: No: Chills, Fever, Malaise HEENTM: No: Symptoms Reported Respiratory: No: Symptoms reported, See HPI, Cough, Orthopnea, Shortness of Breath, SOB with Exertion, SOB at Rest, Stridor, Wheezing, Productive cough, Hemoptysis, Other Cardiac (ROS): No: Symptoms Reported, See HPI, Chest Pain, Edema, Irregular Heart Rate, Lightheadedness, Palpitations, Syncope, Chest Tightness, Other ABD/GI: No: Nausea, Vomiting Musculoskeletal: Yes: Symptoms Reported, See HPI, Joint Pain (left shoulder), Muscle Pain (left upper arm). No: Joint Swelling, Joint Stiffness Integumentary: No: Bruising, Change in Color Neurological: No: Numbness, Paresthesia, Tingling, Weakness All Other Systems: Reviewed and Negative *Physical Exam - Vital Signs Last Vital Signs Temp Pulse Resp BP Pulse Ox 97.6 F 97 H 17 119/64 100 04/07/19 10:39 04/07/19 10:39 04/07/19 10:39 04/07/19 10:39 04/07/19 10:39 - Physical Exam Comments: 04/07/19 11:51 GENERAL: Well developed, well nourished. Awake and alert. No acute distress. CARDIOVASCULAR: Regular rate and rhythm. No murmurs, rubs, or gallops. PULMONARY: No evidence of respiratory distress. Lungs clear to auscultation bilaterally. No wheezing, rales or rhonchi. sounds MUSCULOSKELETAL : Moderate tenderness over lateral deltoid muscle of left shoulder with mild tenderness over before meals joint of left shoulder. Free range of motion of left shoulder and upper arm. 5 out of 5 muscle strength to right upper arm and shoulder. No bony deformities EXTREMITIES: No cyanosis. No clubbing. No edema. No calf tenderness. Palpable pulsation over shunt to medial aspect of left upper arm SKIN: Warm and dry. Normal capillary refill. NEUROLOGICAL: Alert, awake, appropriate. No motor deficits in the lower extremities. Gait is normal without ataxia. PSYCHIATRIC: Cooperative. Good eye contact. Appropriate mood and affect. General Appearance: Yes: Nourished, Appropriately Dressed. No: Apparent Distress ED Treatment Course - RADIOLOGY Radiology Studies Ordered: Category Date Time Status SHOULDER-LEFT [RAD] Stat Radiology 04/07/19 11:05 Ordered DUPLEX VASCUL US-1 ARM [US] Stat Ultrasound 04/07/19 11:44 Ordered Medical Decision Making - Medical Decision Making 04/07/19 11:47 Patient with history of end-stage renal disease with left upper arm shunt for dialysis present with complaint of 4 day history of pain to lateral side of left arm and upper shoulder. Patient reported increased pain with elevation of left arm. Patient denies any trauma or injury to arm. Patient denies numbness or tingling sensation to arm. Patient denies chest pain, shortness of breath, palpitation. Denies any other symptoms Exam significant for moderate tenderness to lateral deltoid muscle of left shoulder and AC joint of left shoulder. Free range of motion of left shoulder. Palpable pulsation over shunt to medial aspect of left upper arm. No ecchymosis or swelling to arm. No increased warmth to arm. Symptoms likely muscle skeletal pain versus thrombosis of shunt. Left shunt thrombosis less likely given probable pores and pain on lateral side of arm and not over area of dialysis port. X-ray of left shoulder and upper arm ordered to rule out acute pathology. Duplex of left upper arm ordered to rule out thrombosis of shunt. Tylenol 975 mg by mouth given for pain. Reassess after imaging 04/07/19 13:40 Duplex of CHACORTA and LT shoulder x-rays unremarkable. Take report improved pain with Tylenol. Patient stable for discharge on robaxin and Tylenol prn for pain as symptoms likely shoulder strain with advise to do hot compresses and follow- up with orthopedics prn *DC/Admit/Observation/Transfer Diagnosis at time of Disposition: Left upper arm pain Strain of left shoulder Qualifiers: Encounter type: initial encounter Qualified Code(s): S46.912A - Strain of unspecified muscle, fascia and tendon at shoulder and upper arm level, left arm , initial encounter - Discharge Dispostion Disposition: HOME Condition at time of disposition: Stable Decision to Admit order: No - Prescriptions Prescriptions: Acetaminophen [Tylenol -] 500 mg PO Q4H PRN #20 tablet PRN Reason: shoulder pain Methocarbamol [Robaxin -] 500 mg PO BID PRN #14 tablet PRN Reason: shoulder pain - Referrals - Patient Instructions Printed Discharge Instructions: Shoulder Sprain Additional Instructions: Your x-rays and ultrasound of arm is normal. Your symptoms is likely muscle strain. Apply heat to upper arm as needed for pain. Rest shoulder and follow-up with PCP - Post Discharge Activity
== END 2019-04-07 13:50 | disposition home or self-care (01) ==
LOC: JER 10:36
DX: S46.812A Strain of other muscles, fascia and tendons at shoulder and upper arm level, left arm, initial encounter (principal); X58.XXXA Exposure to other specified factors, initial encounter; Y93.89 Activity, other specified; Y92.89 Other specified places as the place of occurrence of the external cause; Y99.8 Other external cause status; I12.0 Hypertensive chronic kidney disease with stage 5 chronic kidney disease or end stage renal disease; N18.6 End stage renal disease; N17.8 Other acute kidney failure; Z99.2 Dependence on renal dialysis
CPT/HCPCS: 73030-TC-LT-FY; 93971; 99281-25

== ENCOUNTER 2019-04-29 02:50 | Inpatient (IN) | payer OTHER | END 2019-04-30 13:24 | disposition home or self-care (01) | LOC: JER 02:50 → JERBED 10:08 → J4S 13:50 ==

== ENCOUNTER 2019-08-20 20:46 | Inpatient (IN) | payer OTHER ==
--- NOTE | 2019-08-20 21:10 | PDOC ---
Rapid Medical Evaluation Medical Evaluation: Allergies Allergy/AdvReac Type Severity Reaction Status Date / Time No Known Allergies Allergy Verified 04/29/19 07:50 I have performed a brief in-person evaluation of this patient. The patient presents with a chief complaint of: c/o facial swelling going on for months; states PCP has not done anything for it and decided wants to get it evaluated today; hx of ESRD on HD (//Fri; last session yesterday) Pertinent physical exam findings: +large swelling of anterior neck, lungs clear , in no distress, no pedal edema I have ordered the following: labs The patient will proceed to the ED for further evaluation. 08/20/19 21:09
[2019-08-20 21:35] LABS: BASO % 1.9 % (0-2.0); EOS % 9.1 % (0-4.5); HEMATOCRIT 34.5 % (35.4-49); HEMOGLOBIN 11.3 GM/dL (11.7-16.9); MCHC 32.9 g/dl (32.0-35.9); MEAN CELL VOLUME 88.1 fl (80-96); MEAN PLT VOLUME 7.3 fl (7.5-11.1); MONO % 9.4 % (3.8-10.2); NEUT % 51.6 % (42.8-82.8); PLATELET COUNT 262 K/MM3 (134-434); RBC 3.92 M/mm3 (4.00-5.60); RDW 15.7 % (11.9-15.9); WHITE BLOOD COUNT 4.7 K/mm3 (4.0-10.0)
[2019-08-20 22:17] LABS: ALBUMIN 3.8 g/dl (3.4-5.0); BILIRUBIN,TOTAL 0.3 mg/dL (0.2-1); BLOOD UREA NITROGEN 30.4 mg/dL (7-18); POTASSIUM 4.1 mmol/L (3.5-5.1); TOT PROT 7.1 g/dl (6.4-8.2)
[2019-08-20 22:18] LABS: CREATININE 9.4 mg/dL (0.55-1.3)
--- NOTE | 2019-08-20 22:49 | PDOC ---
History of Present Illness - General Chief Complaint: Edema Stated Complaint: EDEMA Time Seen by Provider: 08/20/19 21:07 - History of Present Illness Initial Comments: 08/20/19 22:41 HPI: 59 y/o M with hx of ESRD on HD (T,,), asthma, GERD, HTN presenting with complaints of 2-3 months of neck and facial swelling. He states he finally came today because he told his dialysis doctor about it and was told to get it checked at the ED. He reports the swelling occasionally improves, however it has been much more edematous that it is today. He denies any pain, SOB, dysphagia with solids or liquids, LH, MCKINNEY, chest pain, abd pain, throat closing sensation, change in vision, brittle hair/skin/nails, constipation, diarrhea. He has not seen a PCP for his complaints and has PMHx: as noted above ROS: as noted SHx: Denies tobacco use; no alcohol use; no rec drugs Allergies: NKDA ROS: GENERAL/CONSTITUTIONAL: No fever or chills. No weakness. HEAD, EYES, EARS, NOSE AND THROAT: No change in vision. No ear pain or discharge. No sore throat. CARDIOVASCULAR: No chest pain or shortness of breath RESPIRATORY: No cough, wheezing, or hemoptysis. GASTROINTESTINAL: No nausea, vomiting, diarrhea or constipation. GENITOURINARY: No dysuria, frequency, or change in urination. MUSCULOSKELETAL: No joint or muscle swelling or pain. No neck or back pain. SKIN: No rash NEUROLOGIC: No headache, vertigo, loss of consciousness, or change in strength/ sensation. ENDOCRINE: No increased thirst. No abnormal weight change HEMATOLOGIC/LYMPHATIC: No anemia, easy bleeding, or history of blood clots. ALLERGIC/IMMUNOLOGIC: No hives or skin allergy. PE: GENERAL: Awake, alert, and fully oriented, no acute distress HEAD: No signs of trauma, normocephalic, atraumatic, moonfacies apppearance EYES: EOMI, sclera anicteric, conjunctiva clear. Exophthalmos ENT: Auricles normal inspection, hearing grossly normal, nares patent, oropharynx clear without exudates. Moist mucosa. Edematous cheeks BL as well as submandibular fullness with no firmness or nodules palpated. Thyroid is normal sized and is not firm or with nodules NECK: Normal ROM, no lymphadenopathy, supraclavicular fullness LUNGS: No increased work of breathing, symmetrical chest rise, clear to auscultation bilaterally, no wheezes, crackles or rhonchi HEART: Regular rate and rhythm, normal S1 and S2, no murmurs, peripheral pulses 2+ and equal bilaterally. ABDOMEN: Soft, nondistended, nontender, normoactive bowel sounds. No guarding, no rebound. No masses EXTREMITIES: Normal inspection, Normal range of motion, no edema. No clubbing or cyanosis. NEUROLOGICAL: Cranial nerves II through XII grossly intact. Normal speech, normal gait, no focal sensorimotor deficits SKIN: Warm, Dry, normal turgor, no rashes or lesions noted Past History - Past Medical History Allergies/Adverse Reactions: Allergies Allergy/AdvReac Type Severity Reaction Status Date / Time No Known Allergies Allergy Verified 08/20/19 21:11 Home Medications: Ambulatory Orders Lisinopril [Prinivil] 20 mg PO DAILY 04/29/19 Metoprolol Tartrate [Lopressor -] 25 mg PO BID 04/29/19 Anemia: No Asthma: Yes (childhood) Cancer: No Cardiac Disorders: No CVA: No COPD: No CHF: No DVT: No Dementia: No Diabetes: No Dialysis: Yes (, , fri) GI Disorders: No Disorders: No HTN: No Hypercholesterolemia: No Liver Disease: No Seizures: No Thyroid Disease: No - Surgical History Abdominal Surgery: No Appendectomy: No Cardiac Surgery: No Cholecystectomy: No Lung Surgery: No Neurologic Surgery: No Orthopedic Surgery: No - Immunization History Immunization Up to Date: Yes - Suicide/Smoking/Psychosocial Hx Smoking History: Former smoker Have you smoked in the past 12 months: No Number of Cigarettes Smoked Daily: 1 If you are a former smoker, when did you quit?: 7 YRS AGO Information on smoking cessation initiated: No Hx Alcohol Use: No Drug/Substance Use Hx: No Substance Use Type: None Hx Substance Use Treatment: No *Physical Exam - Vital Signs Last Vital Signs Temp Pulse Resp BP Pulse Ox 98.1 F 96 H 19 128/84 96 08/20/19 21:08 08/20/19 21:08 08/20/19 21:08 08/20/19 21:08 08/20/19 21:08 ED Treatment Course - LABORATORY CBC & Chemistry Diagram: 08/20/19 21:22 08/20/19 21:22 - ADDITIONAL ORDERS Additional order review: Laboratory Results 08/20/19 21:22 Sodium 141 Potassium 4.1 Chloride 107 Carbon Dioxide 24 Anion Gap 9 BUN 30.4 H Creatinine 9.4 H* Est GFR (CKD-EPI)AfAm 6.42 Est GFR (CKD-EPI)NonAf 5.54 Random Glucose 120 H Calcium 9.0 Total Bilirubin 0.3 AST 11 L ALT 12 L Alkaline Phosphatase 56 Total Protein 7.1 Albumin 3.8 TSH 0.97 D 08/20/19 21:22 RBC 3.92 L MCV 88.1 MCHC 32.9 RDW 15.7 MPV 7.3 L Neutrophils % 51.6 Lymphocytes % 28.0 D Monocytes % 9.4 Eosinophils % 9.1 H Basophils % 1.9 Medical Decision Making - Medical Decision Making 08/20/19 22:57 59 y/o M with hx of ESRD on HD (T,Th,Sa), asthma, GERD, HTN presenting with complaints of 2-3 months of neck and facial swelling. VSS, AF. PE ntoable for moonfacies appearance, exophthalmos, supraclavicular fullness, and submandibular mass. -CT soft tissue neck with contrast: patient with dialysis session tomorrow at 1pm and is therefore able to get a CT scan with contrast given will have treatment within 24 hours 08/20/19 23:[address] Sanchez to follow up CT soft tissue neck with contrast and DC patient if no emergent concerns. Patient is to followup outpatient with PCP for further evaluation of swelling. Patient must attend dialysis tomorrow *DC/Admit/Observation/Transfer Diagnosis at time of Disposition: Facial swelling - Referrals Referrals: Don Pond MD [Staff Physician] - - Patient Instructions Printed Discharge Instructions: Chronic Renal Failure Additional Instructions: Additional Instructions: Please return to the emergency department with any new or worsening symptoms or concerns including facial or neck pain, fainting, persistent fevers. Please follow up with your primary care physician within 72 hours. The primary care office will call you earlier next week to set up an appointment for further evaluation of your facial and neck swelling Please ensure that you attend your dialysis session tomorrow because you received IV contrast today - Post Discharge Activity
--- NOTE | 2019-08-20 23:38 | PDOC ---
*Physical Exam - Vital Signs Last Vital Signs Temp Pulse Resp BP Pulse Ox 98.1 F 96 H 19 128/84 96 08/20/19 21:08 08/20/19 21:08 08/20/19 21:08 08/20/19 21:08 08/20/19 21:08 ED Treatment Course - LABORATORY CBC & Chemistry Diagram: 08/20/19 21:22 08/20/19 21:22 - ADDITIONAL ORDERS Additional order review: Laboratory Results 08/20/19 21:22 Sodium 141 Potassium 4.1 Chloride 107 Carbon Dioxide 24 Anion Gap 9 BUN 30.4 H Creatinine 9.4 H* Est GFR (CKD-EPI)AfAm 6.42 Est GFR (CKD-EPI)NonAf 5.54 Random Glucose 120 H Calcium 9.0 Total Bilirubin 0.3 AST 11 L ALT 12 L Alkaline Phosphatase 56 Total Protein 7.1 Albumin 3.8 TSH 0.97 D 08/20/19 21:22 RBC 3.92 L MCV 88.1 MCHC 32.9 RDW 15.7 MPV 7.3 L Neutrophils % 51.6 Lymphocytes % 28.0 D Monocytes % 9.4 Eosinophils % 9.1 H Basophils % 1.9 Medical Decision Making - Medical Decision Making 08/20/19 23:35 59 y/o m ESRD,on hemodialysis, asthma gerd, HTN with 2-3 mths of facial and neck swelling came in at prompting of 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 Mack 08/21/19 00:[address] neck Retropharyngeal fluid collection up to 1.5 cm thick extending from C1 through C5 levels, suspicios for retropharyngeal abscess or edema. Additional fluid/edema extends into anterior and posterior neck soft tissues. Subcutaneous edema anterior neck Enlarged bilateral cervical lymph nodes Unremarkable tonsillar fossa, epiglottis, thyroid gland, and parotid and submandibular glands. Mucoperiosteal thickening paranasal sinuses. Small left mastoid effusion. Collateral vessels upper chest wall 08/21/19 04:[address] with contrast. Markedly narrowed lower SVC near cavoatrial junction and additional segmental narrowing just above azygos vein origin. No obstructing masses or lymph nodes. Small mediastinal lymph nodes. Small elongated soft tissue density lateral to upper portion of SVC and ill- defined fat stranding around trachea suggest slight possibility of fibrosing mediastinitis. Differential for SVC obstruction also includes Behcet disease, radition-induced fibrosis, and prior dialysis catheter placement. Collateral vessels chest and upper abdominal wall. Small hyperattenuating focus posterior right lobe of liver, possibly focal portosystemic venous shunting sNo definite PE, but evaluation limited by suboptimal contrast opacification . No aortic dissection or aneurysm. No pneumonia or pleural effusions. Small blebs right upper lobe Prominent bilateral axillary lymph nodes, indeterminate 1.4 cm nodule left thyroid lobe and 8 mm right thyroid nodule Atrophic kidneys containing small cysts Thickened left adrenal gland Venous duplex bilateral No evidence for DVT bilateral upper extremities. 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 - microblog sent to admitting team for admission. Pt admitted to Dr. Scott 08/21/19 04:18 08/21/19 06:19 *DC/Admit/Observation/Transfer Diagnosis at time of Disposition: Facial swelling - Referrals - Patient Instructions - Post Discharge Activity
--- NOTE | 2019-08-20 23:40 | PDOC ---
Documentation entered by Gillian Hurd SCRIBE, acting as scribe for Ronal Rothman MD. Ronal Rothman MD: This documentation has been prepared by the Vannessa dean Xhesika, SCRIBE, under my direction and personally reviewed by me in its entirety. I confirm that the documentation accurately reflects all work, treatment, procedures, and medical decision making performed by me. Attending Attestation - Resident Resident Name: FrederickMeganronald - ED Attending Attestation I have performed the following: I have examined & evaluated the patient, The case was reviewed & discussed with the resident, I agree w/resident's findings & plan, Exceptions are as noted - HPI HPI: 08/20/19 22:56 The patient is a 59 year old male with a significant history of ESRD on HD ( /Fri; last session yesterday) who presents to the ED with facial and neck swelling for the past 3 months. Patient states the swelling changes in size. Patient notes he called his PCP and was advised to come to the ED for further evaluations. The patient denies difficulty swallowing, chest pain, shortness of breath. Denies fever, chills, cough, nausea, vomiting, diarrhea and constipation. Denies dysuria, frequency, urgency and hematuria. Allergies:, NKDA Social Hx: Denies current smoking, drinking, or other substance usage. - Physicial Exam PE: 08/20/19 22:56 Exam Vitals: Triage Vital signs reviewed General Appearance: no acute distress, well nourished well developed, Head: Atraumatic, normocephalic Neck: (+) pronounced submandibular soft tissue swelling, facial edema. No warmth. No fluctuance. Non tender. No Stridor Chest Wall: Nontender Chest: CTA BL Cardiac: RRR Extremities: Full range of motion to all extremities, no cyanosis, clubbing, or edema Skin: Warm and dry, no rashes or lesions, no petechiae Neuro: AOX3; Cranial Nerves 2-12 grossly c intact, Strength intact to all extremities, Sensation intact to all extremities, gait normal Psych: normal mood, normal affect 08/22/19 17:50 - Medical Decision Making 08/21/19 01:47 Moderate facial edema, CT neck unremarkable, except for edema, Will CT chest and U/s arms to evaluate for SVC syndrome Dr. Villalobos to follow up CT and dispo
--- NOTE | 2019-08-21 04:18 | PDOC ---
*Physical Exam - Vital Signs Last Vital Signs Temp Pulse Resp BP Pulse Ox 98.1 F 96 H 19 128/84 96 08/20/19 21:08 08/20/19 21:08 08/20/19 21:08 08/20/19 21:08 08/20/19 21:08 ED Treatment Course - LABORATORY CBC & Chemistry Diagram: 08/20/19 21:22 08/20/19 21:22 - ADDITIONAL ORDERS Additional order review: Laboratory Results 08/20/19 21:22 Sodium 141 Potassium 4.1 Chloride 107 Carbon Dioxide 24 Anion Gap 9 BUN 30.4 H Creatinine 9.4 H* Est GFR (CKD-EPI)AfAm 6.42 Est GFR (CKD-EPI)NonAf 5.54 Random Glucose 120 H Calcium 9.0 Total Bilirubin 0.3 AST 11 L ALT 12 L Alkaline Phosphatase 56 Total Protein 7.1 Albumin 3.8 TSH 0.97 D 08/20/19 21:22 RBC 3.92 L MCV 88.1 MCHC 32.9 RDW 15.7 MPV 7.3 L Neutrophils % 51.6 Lymphocytes % 28.0 D Monocytes % 9.4 Eosinophils % 9.1 H Basophils % 1.9 Medical Decision Making - Medical Decision Making 08/21/19 04:18 Patient Name: JAMSHID ABREU THIS IS A 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 No obstructing masses or lymph nodes. Small mediastinal lymph nodes. Small elongated soft tissue density lateral to upper portion of SVC and ill- defined fat stranding around trachea suggest slight possibility of fibrosing mediastinitis. Differential for SVC obstruction also includes Behcet disease, radition-induced fibrosis, and prior dialysis catheter placement. Collateral vessels chest and upper abdominal wall. Small hyperattenuating focus posterior right lobe of liver, possibly focal portosystemic venous shunting sNo definite PE, but evaluation limited by suboptimal contrast opacification . No aortic dissection or aneurysm. No pneumonia or pleural effusions. Small blebs right upper lobe Prominent bilateral axillary lymph nodes, indeterminate 1.4 cm nodule left thyroid lobe and 8 mm right thyroid nodule Atrophic kidneys containing small cysts Thickened left adrenal gland *DC/Admit/Observation/Transfer Diagnosis at time of Disposition: Facial swelling - Referrals Referrals: Don Pond MD [Staff Physician] - - Patient Instructions Printed Discharge Instructions: Chronic Renal Failure Additional Instructions: Additional Instructions: Please return to the emergency department with any new or worsening symptoms or concerns including facial or neck pain, fainting, persistent fevers. Please follow up with your primary care physician within 72 hours. The primary care office will call you earlier next week to set up an appointment for further evaluation of your facial and neck swelling Please ensure that you attend your dialysis session tomorrow because you received IV contrast today - Post Discharge Activity
[2019-08-21] MEDS ORDERED: HEPARIN NA (PORCINE) 5,000 UNITS/ML 1ML VIAL IVPUSH PRN (05:30)
--- NOTE | 2019-08-21 05:45 | HP ---
CHIEF COMPLAINT: Facial puffiness PCP: None HISTORY OF PRESENT ILLNESS: 59 y/o male PMH ESRD ER course was notable for: (1) (2) (3) Recent Travel: PAST MEDICAL HISTORY: PAST SURGICAL HISTORY: Social History: Smoking: Alcohol: Drugs: Allergies No Known Allergies Allergy (Verified 08/20/19 21:11) HOME MEDICATIONS: Home Medications Medication Instructions Recorded Lisinopril [Prinivil] 20 mg PO DAILY 04/29/19 Metoprolol Tartrate [Lopressor -] 25 mg PO BID 04/29/19 REVIEW OF SYSTEMS CONSTITUTIONAL: Absent: fever, chills, diaphoresis, generalized weakness, malaise, loss of appetite, weight change HEENT: Absent: rhinorrhea, nasal congestion, throat pain, throat swelling, difficulty swallowing, mouth swelling, ear pain, eye pain, visual changes CARDIOVASCULAR: Absent: chest pain, syncope, palpitations, irregular heart rate, lightheadedness , peripheral edema RESPIRATORY: Absent: cough, shortness of breath, dyspnea with exertion, orthopnea, wheezing, stridor, hemoptysis GASTROINTESTINAL: Absent: abdominal pain, abdominal distension, nausea, vomiting, diarrhea, constipation, melena, hematochezia GENITOURINARY: Absent: dysuria, frequency, urgency, hesitancy, hematuria, flank pain, genital pain MUSCULOSKELETAL: Absent: myalgia, arthralgia, joint swelling, back pain, neck pain SKIN: Absent: rash, itching, pallor HEMATOLOGIC/IMMUNOLOGIC: Absent: easy bleeding, easy bruising, lymphadenopathy, frequent infections ENDOCRINE: Absent: unexplained weight gain, unexplained weight loss, heat intolerance, cold intolerance NEUROLOGIC: Absent: headache, focal weakness or paresthesias, dizziness, unsteady gait, seizure, mental status changes, bladder or bowel incontinence PSYCHIATRIC: Absent: anxiety, depression, suicidal or homicidal ideation, hallucinations. PHYSICAL EXAMINATION Vital Signs - 24 hr 08/20/19 21:08 Temperature 98.1 F Pulse Rate 96 H Respiratory 19 Rate Blood Pressure 128/84 O2 Sat by Pulse 96 Oximetry (%) GENERAL: Awake, alert, and fully oriented, in no acute distress. HEAD: Large head, plethoric, atraumatic EYES: JAMEEL EOMI, sclera erythematous but anicteric, conjunctiva clear. No lid lag. + pterigum EARS, NOSE, THROAT: Ears normal, nares patent, oropharynx clear without exudates. Moist mucous membranes. NECK: Normal range of motion, supple without lymphadenopathy, JVD, or masses. LUNGS: Breath sounds equal, clear to auscultation bilaterally. No wheezes, and no crackles. No accessory muscle use. HEART: Regular rate and rhythm, normal S1 and S2 with systolic murmur, rub or gallop. ABDOMEN: Soft, nontender, not distended, normoactive bowel sounds, no guarding, no rebound, no masses. No hepatomegaly or splenomegaly. MUSCULOSKELETAL: Normal range of motion at all joints. No bony deformities or tenderness. No CVA tenderness. UPPER EXTREMITIES: 2+ pulses, warm, well-perfused. No cyanosis. No clubbing. No peripheral edema. LOWER EXTREMITIES: AV fistula 2+ pulses, warm, well-perfused. No calf tenderness. No peripheral edema. NEUROLOGICAL: Cranial nerves II-XII intact. Normal speech. Normal gait. PSYCHIATRIC: Cooperative. Good eye contact. Appropriate mood and affect. SKIN: Warm, dry, normal turgor, no rashes or lesions noted, normal capillary refill. Laboratory Results - last 24 hr 08/20/19 08/20/19 21:22 21:22 WBC 4.7 RBC 3.92 L Hgb 11.3 L Hct 34.5 L MCV 88.1 MCH 29.0 MCHC 32.9 RDW 15.7 Plt Count 262 MPV 7.3 L Absolute Neuts (auto) 2.4 Neutrophils % 51.6 Lymphocytes % 28.0 D Monocytes % 9.4 Eosinophils % 9.1 H Basophils % 1.9 Nucleated RBC % 0 Sodium 141 Potassium 4.1 Chloride 107 Carbon Dioxide 24 Anion Gap 9 BUN 30.4 H Creatinine 9.4 H* Est GFR (CKD-EPI)AfAm 6.42 Est GFR (CKD-EPI)NonAf 5.54 Random Glucose 120 H Calcium 9.0 Total Bilirubin 0.3 AST 11 L ALT 12 L Alkaline Phosphatase 56 Total Protein 7.1 Albumin 3.8 TSH 0.97 D ASSESSMENT/PLAN: # SVC syndrome - Place on heparin drip - Consult vascular surgery (Dr. Morrow) Edu Seth MD ATTENDING PHYSICIAN STATEMENT I saw and evaluated the patient. I reviewed the resident's note and discussed the case with the resident. I agree with the resident's findings and plan as documented. SUBJECTIVE: OBJECTIVE: ASSESSMENT AND PLAN:
--- NOTE | 2019-08-21 06:51 | PN ---
Teaching Attending Note Name of Resident: Edu Seth ATTENDING PHYSICIAN STATEMENT I saw and evaluated the patient. I reviewed the resident's note and discussed the case with the resident. I agree with the resident's findings and plan as documented. SUBJECTIVE: 59 year old male with a significant history of ESRD on HD (//Fri; last session ) who presents with facial and neck swelling for the past 3 months. Swelling was insiduous and started worsening. On HD for past 3 years- ESRD from HTN. OBJECTIVE: Last Vital Signs Temp Pulse Resp BP Pulse Ox 98.1 F 96 H 19 128/84 96 08/20/19 21:08 08/20/19 21:08 08/20/19 21:08 08/20/19 21:08 08/20/19 21:08 general - appears comfortable, no respiratory distress, no stridor heent- plethoric, edematous face neck no tenderness cv-s1+s2+rrr chest clear abdomen- obese ext- left upper ext AV fistula Abnormal Lab Results 08/20/19 08/20/19 21:22 21:22 RBC 3.92 L Hgb 11.3 L Hct 34.5 L MPV 7.3 L Eosinophils % 9.1 H BUN 30.4 H Creatinine 9.4 H* Random Glucose 120 H AST 11 L ALT 12 L CTA of chest reviewed -svc narrowing at atrio-cavo junction Upper extremity venous u/s - no dvt identified ASSESSMENT AND PLAN: #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 No difficulty with breathing. No masses identified which would cause obstruction #Retropharyngeal fluid collection - uncertain significance. No fevers or leukocytosis to suggest infection. #ESRD on HD- t,t,s #HTN -admit to med/surg -monitor airway carefully -heparin drip for suspected svc dvt -vascular surgery consult -would obtain venography after HD- (already received one dose of IV contrast ) -ID consult for retropharyngeal fluid collection and need for antibiotics -renal consult for HD -NPO for now -speech and swallow eval in setting of facial edema -dvt ppx - heparin sc
[2019-08-21] MEDS ORDERED: HEPARIN NA (PORCINE) 5,000 UNITS/ML 1ML VIAL ONE (07:28)
[2019-08-21] MEDS ORDERED: HEPARIN INFUSION - 25,000 UNITS/500 ML INFUS.BAG IVPB ONE (07:28)
[2019-08-21] MEDS: HEPARIN - 25,000 UNIT in SODIUM CHLORIDE 495 ML IV SCH (08:04)
[2019-08-21] MEDS: PIPERACILLIN/TAZOB 3.375 GM 3.375 GM in DEXTROSE 5%-WATER - 50 ML IVPB SCH ×2 (09:00→18:16)
[2019-08-21] MEDS ORDERED: PIPERACILLIN/TAZOB 3.375 GM 3.375 GM/50 ML BAG IVPB ONE ×2 (09:10→18:59)
[2019-08-21] MEDS ORDERED: LISINOPRIL 20 MG TABLET (FP) PO SCH (10:00)
[2019-08-21] MEDS: METOPROLOL TARTRATE 25 MG TABLET (FP) PO SCH ×2 (10:07→22:46)
--- NOTE | 2019-08-21 13:09 | CONSULT ---
Consult - text type - Consultation Consultation Note: 59 year old man with ESRD on HD. Has left arm AV fistula. he has recurrent swelling of his face and neck with prior treatment for subclavian vein stenosis with balloon angioplasty in Oct 2018. He now complains of worsening swelling in his face. No problems reported with fistula access or flow. On exam there is severe facial swelling and mild stridor. left arm fistula patent with thrill present CT scan shows stenotic SVC with filling of azogous vein. Imp: SVC syndrome Plan: Schedule venogram of SVC for venoplasty and stenting for Friday. procedure discussed with patient who agrees to proceed.
[2019-08-21 14:28] LABS: INR 1.08 (0.83-1.09); PROTHROMBIN TIME (PATIENT) 12.8 SEC (9.7-13.0)
--- NOTE | 2019-08-21 14:34 | CONSULT ---
Consult Consult Specialty:: Nephrology Reason for Consultation:: ESRD - History of Present Illness Chief Complaint: facial swelling History of Present Illness: Pt is a 59 year old male with pmhx of esrd on hd, anemia and htn who presents to the ER with facial and right arm swelling that has been progressive. He denies shortness of breath. He has history of subclavian vein stenosis. He last went to HD on . He is on a TTS schedule. He denies chest pain or palpitations. He is awake and alert. 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: Yes: Vertigo Cardio/Vascular: Yes: HTN Gastrointestinal: Yes: GERD Renal/: Yes: Renal Failure, Hemodialysis Musculoskeletal: Yes: Other - Past Surgical History Past Surgical History: Yes: AV Fistula/Graft - Alcohol/Substance Use Hx Alcohol Use: No History of Substance Use: reports: None - Smoking History Smoking history: Former smoker Have you smoked in the past 12 months: No Aproximately how many cigarettes per day: 1 If you are a former smoker, when did you quit?: 7 YRS AGO - Social History ADL: Independent History of Recent Travel: No Home Medications - Allergies Allergies/Adverse Reactions: Allergies Allergy/AdvReac Type Severity Reaction Status Date / Time No Known Allergies Allergy Verified 08/20/19 21:11 - Home Medications Home Medications: Ambulatory Orders Lisinopril [Prinivil] 20 mg PO DAILY 04/29/19 Metoprolol Tartrate [Lopressor -] 25 mg PO BID 04/29/19 Family Medical History Family History: Denies Review of Systems - Review of Systems Constitutional: reports: Malaise Eyes: reports: No Symptoms HENT: reports: Other (facial swelling) Neck: reports: No Symptoms Respiratory: reports: No Symptoms Gastrointestinal: reports: No Symptoms Genitourinary: reports: No Symptoms Musculoskeletal: reports: No Symptoms Integumentary: reports: No Symptoms Neurological: reports: No Symptoms Endocrine: reports: No Symptoms Hematology/Lymphatic: reports: No Symptoms Psychiatric: reports: No Symptoms Physical Exam Vital Signs: Vital Signs Temperature 98.1 F 08/21/19 13:45 Pulse Rate 69 08/21/19 13:50 Respiratory Rate 18 08/21/19 13:50 Blood Pressure 151/63 08/21/19 13:50 O2 Sat by Pulse Oximetry (%) 98 08/21/19 13:23 Constitutional: Yes: Calm HENT: Yes: Other (facial edema) Cardiovascular: Yes: S1, S2 Respiratory: Yes: Regular Gastrointestinal: Yes: Normal Bowel Sounds, Soft Renal/: Yes: WNL Extremities: Yes: Other (right arm swelling) Edema: Yes Edema: RUE: 2+, LLE: 1+, RLE: 1+ Neurological: Yes: Oriented Psychiatric: Yes: Oriented Labs: CBC, BMP 08/20/19 21:22 08/20/19 21:22 Laboratory Tests 08/20/19 08/20/19 21:22 21:22 Hgb 11.3 L Potassium 4.1 BUN 30.4 H Creatinine 9.4 H* Imaging - Results Cat Scan: Report Reviewed Problem List - Problems (1) Facial swelling Code(s): R22.0 - LOCALIZED SWELLING, MASS AND LUMP, HEAD (2) Swollen arm Code(s): M79.89 - OTHER SPECIFIED SOFT TISSUE DISORDERS (3) ESRD (end stage renal disease) Code(s): N18.6 - END STAGE RENAL DISEASE (4) Hypertension Code(s): I10 - ESSENTIAL (PRIMARY) HYPERTENSION Qualifiers: Assessment/Plan Current Medications Generic Name Dose Route Start Last Admin Trade Name Freq PRN Reason Stop Dose Admin Heparin Sodium (Porcine) 1,000 unit 08/21/19 05:30 Heparin - IVPUSH PRN PRN Heparin Heparin Sodium (Porcine) 5,000 unit 08/21/19 05:30 08/21/19 08:04 Heparin - IVPUSH 5,000 unit PRN PRN Administration Heparin Heparin Sodium (Porcine) 25, 500 mls @ 20 mls/hr 08/21/19 05:30 08/21/19 08: 04 000 unit/ Sodium Chloride IV 1,000 unit/hr TITR WALTER 20 mls/hr Administration Protocol 1,000 UNIT/HR Piperacillin Sod/Tazobactam 50 mls @ 100 mls/hr 08/21/19 08:00 Sod 3.375 gm/ Dextrose IVPB Q8H-IV WALTER Protocol Piperacillin Sod/Tazobactam 50 mls @ 100 mls/hr 08/21/19 08:00 08/21/19 09:00 Sod 3.375 gm/ Dextrose IVPB 08/22/19 10:29 100 mls/hr Q8H-IV WALTER Administration Metoprolol Tartrate 25 mg 08/21/19 10:00 08/21/19 10:07 Lopressor - PO 25 mg BID WALTER Administration Impression 1. ESRD 2. HTN 3. subclavian vein stonosis 4. anemia Plan - resume home meds - HD today - renal diet - discussed with vascular, angio on friday - monitor bp
[2019-08-21] MEDS ORDERED: SODIUM CHLORIDE 250 ML IV PRN (14:44)
[2019-08-21 15:18] LABS: ACTIVATED PTT 118.4 SECONDS (25.2-36.5)
--- NOTE | 2019-08-21 17:21 | PN ---
Progress Note (short form) - Note Progress Note: ID consult dictated imp/reccd 59 yo man with esrd/hd admitted with worsening facial swelling- felt to have SVC syndrome due to subclavian vein stenosis he has no fever he has no pain with swallowing and is able to eat ct scan of neck with contrast with prevertebral fluid extending to the submandibular fossa and posterior fossa bilaterally clinically he does not appear infected so will not start antiibotics at this time I would suspect this is due to his SVC syndrome- would suggest ENT to comment on this esrd/hd known history of subclavian vein stenosis lung nodule mrsa colonization d/w hospitalist call in to radiology to discuss the findings MRSA contact isolation Problem List - Problems (1) Facial swelling Code(s): R22.0 - LOCALIZED SWELLING, MASS AND LUMP, HEAD (2) SVC syndrome Code(s): I87.1 - COMPRESSION OF VEIN (3) ESRD (end stage renal disease) on dialysis Code(s): N18.6 - END STAGE RENAL DISEASE; Z99.2 - DEPENDENCE ON RENAL DIALYSIS (4) MRSA (methicillin resistant Staphylococcus aureus) colonization Code(s): Z22.322 - CARRIER OR SUSPECTED CARRIER OF METHICILLIN RESIS STAPH
[2019-08-21] MEDS: LISINOPRIL 20 MG TABLET (FP) PO SCH (18:16)
[2019-08-21 23:07] VITALS: BMI 24.9
--- NOTE | 2019-08-21 23:43 | EKG ---
Test Reason : Blood Pressure : / mmHG Vent. Rate : 062 BPM Atrial Rate : 062 BPM P-R Int : 174 ms QRS Dur : 080 ms QT Int : 394 ms P-R-T Axes : 082 011 072 degrees QTc Int : 399 ms NORMAL SINUS RHYTHM SEPTAL INFARCT (CITED ON OR BEFORE 26-MAY-2018) ABNORMAL ECG WHEN COMPARED WITH ECG OF 29-APR-2019 13:00, QUESTIONABLE CHANGE IN INITIAL FORCES OF SEPTAL LEADS T WAVE AMPLITUDE HAS DECREASED IN INFERIOR LEADS Confirmed by ALEJANDRA PEUNTE MD ([id number]) on 08/21/2019 11:42:43 PM Referred By: Confirmed By:ALEJANDRA PUENTE MD
[2019-08-22] MEDS ORDERED: DEXTROSE 5%-WATER - 50 ML IVPB ONE (01:25)
[2019-08-22] MEDS ORDERED: PIPERACILLIN/TAZOBACTAM 3.375 GM VIAL IVPB ONE (01:25)
[2019-08-22] MEDS: ACETAMINOPHEN 325 MG TABLET (FP) PO PRN ×2 (02:36→13:12)
[2019-08-22] MEDS: PIPERACILLIN/TAZOB 3.375 GM 3.375 GM in DEXTROSE 5%-WATER - 50 ML IVPB SCH ×2 (02:38→10:00)
[2019-08-22] MEDS: HEPARIN - 25,000 UNIT in SODIUM CHLORIDE 495 ML IV SCH ×2 (07:43→15:09)
[2019-08-22] MEDS: HEPARIN NA (PORCINE) 5,000 UNITS/ML 1ML VIAL IVPUSH PRN ×2 (08:40→17:48)
--- NOTE | 2019-08-22 09:15 | PN ---
Progress Note (short form) - Note Progress Note: no complaints no difficulty swallowing s/p HD yesterday Vital Signs Period Temp Pulse Resp BP Sys/Beyer Pulse Ox Last 24 Hr 97.7 F-98.3 F 60-97 18-20 135-177/63-109 96-98 opens mouth easily no swelling of tongue neck and parotids are swollen cor-rrr lung clear abd soft,nt ext +right arm AVG with thrill chest with multiple scars from prior PC CBC, BMP 08/20/19 21:22 08/20/19 21:22 imp/reccd 59 yo man with esrd/hd admitted with worsening facial swelling- felt to have SVC syndrome due to subclavian vein stenosis he has no fever he has no pain with swallowing and is able to eat ct scan of neck with contrast with prevertebral fluid extending to the submandibular fossa and posterior fossa bilaterally clinically he does not appear infected observe off antibiotics I would suspect this is due to his SVC syndrome- would suggest ENT to comment on this esrd/hd known history of subclavian vein stenosis d/w radiologist conservation engineer last night- no abscess noted MRSA isolation Problem List - Problems (1) Facial swelling Code(s): R22.0 - LOCALIZED SWELLING, MASS AND LUMP, HEAD (2) SVC syndrome Code(s): I87.1 - COMPRESSION OF VEIN (3) ESRD (end stage renal disease) on dialysis Code(s): N18.6 - END STAGE RENAL DISEASE; Z99.2 - DEPENDENCE ON RENAL DIALYSIS (4) MRSA (methicillin resistant Staphylococcus aureus) colonization Code(s): Z22.322 - CARRIER OR SUSPECTED CARRIER OF METHICILLIN RESIS STAPH
--- NOTE | 2019-08-22 09:44 | PN ---
Physical Exam: SUBJECTIVE: Patient seen and examined OBJECTIVE: Vital Signs Period Temp Pulse Resp BP Sys/Beyer Pulse Ox Last 24 Hr 97.7 F-98.3 F 60-97 18-20 135-177/63-109 96-98 GENERAL: The patient is awake, alert, and fully oriented, in no acute distress. HEAD: Normal with no signs of trauma. EYES: PERRL, extraocular movements intact, sclera anicteric, conjunctiva clear. No ptosis. ENT: Ears normal, nares patent, oropharynx clear without exudates, moist mucous membranes. NECK: Trachea midline, full range of motion, supple. LUNGS: Breath sounds equal, clear to auscultation bilaterally, no wheezes, no crackles, no accessory muscle use. HEART: Regular rate and rhythm, S1, S2 without murmur, rub or gallop. ABDOMEN: Soft, nontender, nondistended, normoactive bowel sounds, no guarding, no rebound, no hepatosplenomegaly, no masses. EXTREMITIES: 2+ pulses, warm, well-perfused, no edema. NEUROLOGICAL: Cranial nerves II through XII grossly intact. Normal speech, gait not observed. PSYCH: Normal mood, normal affect. SKIN: Warm, dry, normal turgor, no rashes or lesions noted Laboratory Results - last 24 hr 08/21/19 08/21/19 08/21/19 09:45 09:45 13:50 ESR 7 PT with INR 12.80 INR 1.08 PTT (Actin FS) 118.4 H C-Reactive Protein < 0.3 08/22/19 08:00 ESR PT with INR INR PTT (Actin FS) 45.5 H C-Reactive Protein Active Medications Generic Name Dose Route Start Last Admin Trade Name Freq PRN Reason Stop Dose Admin Acetaminophen 650 mg 08/22/19 02:12 08/22/19 02:36 Tylenol - PO 650 mg Q6H PRN Administration Fever Heparin Sodium (Porcine) 1,000 unit 08/21/19 05:30 Heparin - IVPUSH PRN PRN Heparin Heparin Sodium (Porcine) 5,000 unit 08/21/19 05:30 08/21/19 08:04 Heparin - IVPUSH 5,000 unit PRN PRN Administration Heparin Heparin Sodium (Porcine) 25, 500 mls @ 20 mls/hr 08/21/19 05:30 08/22/19 08: 41 000 unit/ Sodium Chloride IV 950 unit/hr TITR WALTER 19 mls/hr Titration Protocol 1,000 UNIT/HR Sodium Chloride 250 mls @ 3,000 mls/hr 08/21/19 14:44 Normal Saline - IV 08/22/19 14:44 PRN PRN Hypotension during Dialysis Lisinopril 20 mg 08/21/19 14:36 08/21/19 18:16 Prinivil PO Not Given DAILY [facility] Metoprolol Tartrate 25 mg 08/21/19 10:00 08/21/19 22:46 Lopressor - PO 25 mg BID [facility] Administration ASSESSMENT/PLAN:
--- NOTE | 2019-08-22 10:10 | PN ---
Progress Note (short form) - Note Progress Note: Thoracic Surgery Consultation Consulted regarding possible fibrosing mediastinitis. Imaging does not suggest this or a possible biopsy target. Likely swelling is related to high pressure venous inflow from HD and/or history of stenosis, or position of catheters. Would defer to vascular surgery for further management.
[2019-08-22] MEDS: LISINOPRIL 20 MG TABLET (FP) PO SCH (10:31)
[2019-08-22] MEDS: METOPROLOL TARTRATE 25 MG TABLET (FP) PO SCH ×2 (10:31→21:22)
[2019-08-22] MEDS ORDERED: PT OWN MED DRAWER 7, Y5N ONE (14:38)
--- NOTE | 2019-08-22 15:01 | CONSULT ---
Consult - text type - Consultation Consultation Note: ENT consult I have been asked to comment on the CT finding of fluid in the prevertebral space. After review of the images, I see a relatively dark [id number] area in several contiguous level of the cervical spine region anterior to the prevertebral musculature, which is consistent with fluid or edema in the retropharyngeal space, rather than the prevertebral space. This has been reported as an uncommon component of superior vena cava syndrome. This patient's imaging finding is consistent with his SVC syndrome. However, there are multiple other possible causes of retropharyngeal fluid, as well. Therefore, if the abnormal imaging finding does not resolve following treatment of the SVC issue, it should be worked up further. He is welcome to follow up with me for this, if needed.
--- NOTE | 2019-08-22 15:22 | CONS ---
DATE OF CONSULTATION: DATE OF DICTATION: 08/22/2019 This is a 59-year-old man who was sent from dialysis with facial swelling for the last 3 months. He has been on dialysis for the last 3 years. He has a history of multiple permacaths in his chest and he has a history of subclavian vein stenosis that required balloon angioplasty in October of 2018. He now presents with worsening swelling of his face. There are no problems with his fistula access. He has no difficulty swallowing. He does not feel short of breath. He has had no fevers or chills. He has no trouble swallowing. He is able to eat easily. He has no fevers. He has no sensation of a foreign body in his throat. I am asked to see him for fluid in his retropharynx noted on imaging studies. His past medical history is notable for hypertension, end-stage renal disease. He is on dialysis. He has a left AV fistula. He has had multiple prior permacaths and he has a remote history of MRSA from a catheter site in January of 2018. He has no known drug allergies. His nylon winder is Dr. Ramos. SOCIAL HISTORY: He is a former smoker. He quit 7 years ago. He has no history of substance use. He is originally from [place]. There has been no travel in the last 3 years. Past medical history, as stated before, includes GERD and anemia, as well as end-stage renal disease. His current medications as an outpatient include metoprolol and lisinopril. Review of systems is notable for the progressive facial swelling, otherwise he feels well. PHYSICAL EXAMINATION: General: He is awake and alert. He is on dialysis at the time I saw him. Vital Signs: He had no fever since admission. Temperature is 98.1. Pulse 67. Blood pressure 176/69. Respiratory rate 18. He is saturating 97% on room air. HEENT: His face is swollen, especially of his bilateral parotids extending down his neck. He has no venous engorgement on his chest. He has a good thrill in his AV fistula. He is able to open his mouth easily. He has no tongue swelling and he is not short of breath. He is not drooling. He has no evidence of any discomfort. His lungs are clear to auscultation. Heart: Regular rate and rhythm. Abdomen: Soft, nontender. Extremities: Without edema. Labs are notable for a white count of 4.7, hemoglobin 11.3, platelets 262, BUN 30 and creatinine 9.4. LFTs are normal. CRP was less than 0.3 with a normal sedimentation rate. Imaging studies of his chest were notable for the suggestion of narrowing of the SVC with thickening just above the level of insertion. There is also a suggestion of narrowing at its junction with the right atrium. He also has a 1.3-cm nodule in the right upper lobe. He had a neck CT that was notable for fluid. He had significant amount of fluid extending to the submandibular fossa from the prevertebral area and the posterior triangle bilaterally with diffuse subcutaneous edema. In summary, this is a 59-year-old man admitted with probable SVC syndrome due to subclavian vein stenosis. He has been seen by Vascular Surgery and plans are for intervention on Friday. He has no fever. He has no pain with swallowing and is able to eat. He is not drooling. Clinically he does not appear infected, so will not continue antibiotics at this time. I would suspect this is all due to his SVC syndrome. I had a call in to Radiology, who called me back. There is no evidence of any abscess and, with the diffuse fluid, also feels this is suggestive of his underlying subclavian vein syndrome. I would observe him off antibiotics. End-stage renal disease: Dialysis per Renal. Known history of subclavian vein stenosis: Management per Vascular. Lung nodule, which will need to be addressed as an outpatient. MRSA colonization: Would continue isolation. Case was discussed at length with the hospitalist. MARCOS WHITMAN M.D. [id number]
[2019-08-22] MEDS: LIDOCAINE 5% TOPICAL PATCH TP SCH (15:47)
--- NOTE | 2019-08-22 17:30 | PN ---
Progress Note, Physician History of Present Illness: Pt seen and examined at bedside. He is awake and alert. He is going to the OR tomorrow for angio. - Current Medication List Current Medications: Active Medications Acetaminophen (Tylenol -) 650 mg PO Q6H PRN PRN Reason: Fever Last Admin: 08/22/19 13:12 Dose: 650 mg Heparin Sodium (Porcine) (Heparin -) 1,000 unit IVPUSH PRN PRN PRN Reason: Heparin Heparin Sodium (Porcine) (Heparin -) 5,000 unit IVPUSH PRN PRN PRN Reason: Heparin Last Admin: 08/21/19 08:04 Dose: 5,000 unit Heparin Sodium (Porcine) 25, (000 unit/ Sodium Chloride) 500 mls @ 20 mls/hr IV TITR [facility]; Protocol Last Admin: 08/22/19 15:09 Dose: 950 unit/hr, 19 mls/hr Lidocaine (Lidoderm Patch -) 1 patch TP DAILY [facility] Last Admin: 08/22/19 15:47 Dose: 1 patch Lisinopril (Prinivil) 20 mg PO DAILY [facility] Last Admin: 08/22/19 10:31 Dose: 20 mg Metoprolol Tartrate (Lopressor -) 25 mg PO BID [facility] Last Admin: 08/22/19 10:31 Dose: 25 mg Miscellaneous (Lidoderm Patch Removal) 1 each MC DAILY@2200 [facility] - Objective Vital Signs: Vital Signs Temperature 98.3 F 08/22/19 14:00 Pulse Rate 72 08/22/19 14:00 Respiratory Rate 18 08/22/19 14:00 Blood Pressure 145/79 08/22/19 14:00 O2 Sat by Pulse Oximetry (%) 97 08/22/19 07:00 Constitutional: Yes: Calm Eyes: Yes: Conjunctiva Clear HENT: Yes: Other (facial edema) Cardiovascular: Yes: S1, S2 Respiratory: Yes: CTA Bilaterally Gastrointestinal: Yes: Soft Musculoskeletal: Yes: WNL Edema: Yes Edema: RUE: 1+ Neurological: Yes: Oriented Psychiatric: Yes: Oriented Labs: CBC, BMP 08/20/19 21:22 INR, PTT INR 1.08 (0.83-1.09) 08/21/19 13:50 Problem List - Problems (1) Facial swelling Code(s): R22.0 - LOCALIZED SWELLING, MASS AND LUMP, HEAD (2) Swollen arm Code(s): M79.89 - OTHER SPECIFIED SOFT TISSUE DISORDERS (3) ESRD (end stage renal disease) Code(s): N18.6 - END STAGE RENAL DISEASE (4) Hypertension Code(s): I10 - ESSENTIAL (PRIMARY) HYPERTENSION Qualifiers: Assessment/Plan Current Medications Generic Name Dose Route Start Last Admin Trade Name Freq PRN Reason Stop Dose Admin Acetaminophen 650 mg 08/22/19 02:12 08/22/19 13:12 Tylenol - PO 650 mg Q6H PRN Administration Fever Heparin Sodium (Porcine) 1,000 unit 08/21/19 05:30 Heparin - IVPUSH PRN PRN Heparin Heparin Sodium (Porcine) 5,000 unit 08/21/19 05:30 08/21/19 08:04 Heparin - IVPUSH 5,000 unit PRN PRN Administration Heparin Heparin Sodium (Porcine) 25, 500 mls @ 20 mls/hr 08/21/19 05:30 08/22/19 15: 09 000 unit/ Sodium Chloride IV 950 unit/hr TITR [facility] 19 mls/hr Administration Protocol 1,000 UNIT/HR Lidocaine 1 patch 08/22/19 15:45 08/22/19 15:47 Lidoderm Patch - TP 1 patch DAILY [facility] Administration Lisinopril 20 mg 08/21/19 14:36 08/22/19 10:31 Prinivil PO 20 mg DAILY [facility] Administration Metoprolol Tartrate 25 mg 08/21/19 10:00 08/22/19 10:31 Lopressor - PO 25 mg BID [facility] Administration Miscellaneous 1 each 08/22/19 22:00 Lidoderm Patch Removal MC DAILY@2200 [facility] Impression 1. ESRD 2. HTN 3. subclavian vein stenosis 4. anemia Plan - pt for OR tomorrow - pt on heparin drip - next HD scheduled for Friday - renal diet - monitor bp
[2019-08-22 17:46] LABS: ALBUMIN 3.4 g/dl (3.4-5.0); BLOOD UREA NITROGEN 28.9 mg/dL (7-18); CALCIUM 8.6 mg/dL (8.5-10.1); PHOSPHOROUS 6.7 mg/dL (2.5-4.9); POTASSIUM 3.8 mmol/L (3.5-5.1)
[2019-08-22 18:20] LABS: CREATININE 9.1 mg/dL (0.55-1.3)
[2019-08-22] MEDS: LIDOCAINE PATCH REMOVAL MC SCH (21:23)
[2019-08-23] MEDS: HEPARIN NA (PORCINE) 5,000 UNITS/ML 1ML VIAL IVPUSH PRN (00:55)
[2019-08-23] MEDS: HEPARIN - 25,000 UNIT in SODIUM CHLORIDE 495 ML IV SCH (06:04)
[2019-08-23 07:40] LABS: CALCIUM 8.8 mg/dL (8.5-10.1)
[2019-08-23 07:57] LABS: INR 1.12 (0.83-1.09); PROTHROMBIN TIME (PATIENT) 13.2 SEC (9.7-13.0)
[2019-08-23 08:00] LABS: ACTIVATED PTT 56.8 SECONDS (25.2-36.5)
[2019-08-23 08:02] LABS: BASO % 1.3 % (0-2.0); EOS % 6.5 % (0-4.5); HEMATOCRIT 31.5 % (35.4-49); HEMOGLOBIN 10.4 GM/dL (11.7-16.9); LYMPH % 18.1 % (8-40); MCH 28.9 pg (25.7-33.7); MCHC 33.1 g/dl (32.0-35.9); MEAN CELL VOLUME 87.4 fl (80-96); MEAN PLT VOLUME 7.7 fl (7.5-11.1); MONO % 10.1 % (3.8-10.2); PLATELET COUNT 226 K/MM3 (134-434); RDW 15.4 % (11.9-15.9); WHITE BLOOD COUNT 6.6 K/mm3 (4.0-10.0)
--- NOTE | 2019-08-23 08:56 | PN ---
Physical Exam: SUBJECTIVE: Patient seen and examined; no swallowing issues, no stridor. Going to OR today for angio. Was NPO overnight. Appreciate subspecialty input OBJECTIVE: Vital Signs Period Temp Pulse Resp BP Sys/Beyer Pulse Ox Last 24 Hr 97.4 F-98.3 F 71-82 16-20 139-148/71-91 GENERAL: The patient is awake, alert, and fully oriented, in no acute distress. HEAD: Normal with no signs of trauma. Gross head edema unchanged consistent with dx SVC syndrome. EYES: PERRL, extraocular movements intact, sclera anicteric, conjunctiva clear. No ptosis. ENT: Ears normal, nares patent, oropharynx clear without exudates, moist mucous membranes. NECK: Trachea midline, full range of motion, supple. Swelling same as yesterday , no LN. no firmness or pain to palpation. LUNGS: Breath sounds equal, clear to auscultation bilaterally, no wheezes, no crackles, no accessory muscle use. HEART: Regular rate and rhythm, S1, S2 without murmur, rub or gallop. ABDOMEN: Soft, nontender, nondistended, normoactive bowel sounds, no guarding, no rebound, no hepatosplenomegaly, no masses. EXTREMITIES: 2+ pulses, warm, well-perfused, no edema. NEUROLOGICAL: Cranial nerves II through XII grossly intact. Normal speech, gait not observed. PSYCH: Normal mood, normal affect. SKIN: Warm, dry, normal turgor, no rashes or lesions noted Laboratory Results - last 24 hr 08/22/19 08/22/19 08/22/19 15:25 15:25 17:23 WBC RBC Hgb Hct MCV MCH MCHC RDW Plt Count MPV Absolute Neuts (auto) Neutrophils % Lymphocytes % Monocytes % Eosinophils % Basophils % Nucleated RBC % PT with INR INR PTT (Actin FS) 44.8 H Sodium 137 Potassium 3.8 Chloride 96 L Carbon Dioxide 30 Anion Gap BUN 28.9 H Creatinine 9.1 H* Est GFR (CKD-EPI)AfAm Est GFR (CKD-EPI)NonAf Random Glucose 89 Calcium 8.6 Phosphorus 6.7 H Albumin 3.4 Blood Type B POSITIVE Antibody Screen Negative 08/23/19 08/23/19 08/23/19 00:17 06:10 06:10 WBC 6.6 RBC 3.60 L Hgb 10.4 L Hct 31.5 L MCV 87.4 MCH 28.9 MCHC 33.1 RDW 15.4 Plt Count 226 MPV 7.7 Absolute Neuts (auto) 4.2 Neutrophils % 64.0 D Lymphocytes % 18.1 D Monocytes % 10.1 Eosinophils % 6.5 H Basophils % 1.3 Nucleated RBC % 0 PT with INR Cancelled 13.20 H INR Cancelled 1.12 H PTT (Actin FS) 49.4 H 56.8 H Sodium Potassium Chloride Carbon Dioxide Anion Gap BUN Creatinine Est GFR (CKD-EPI)AfAm Est GFR (CKD-EPI)NonAf Random Glucose Calcium Phosphorus Albumin Blood Type Antibody Screen 08/23/19 06:10 WBC RBC Hgb Hct MCV MCH MCHC RDW Plt Count MPV Absolute Neuts (auto) Neutrophils % Lymphocytes % Monocytes % Eosinophils % Basophils % Nucleated RBC % PT with INR INR PTT (Actin FS) Sodium 136 Potassium 4.0 Chloride 97 L Carbon Dioxide 26 Anion Gap 13 BUN 36.0 H Creatinine Est GFR (CKD-EPI)AfAm 5.62 Est GFR (CKD-EPI)NonAf 4.85 Random Glucose 72 L Calcium 8.8 Phosphorus Albumin Blood Type Antibody Screen Active Medications Generic Name Dose Route Start Last Admin Trade Name Freq PRN Reason Stop Dose Admin Acetaminophen 650 mg 08/22/19 02:12 08/22/19 13:12 Tylenol - PO 650 mg Q6H PRN Administration Fever Heparin Sodium (Porcine) 1,000 unit 08/21/19 05:30 08/23/19 00:55 Heparin - IVPUSH 1,000 unit PRN PRN Administration Heparin Heparin Sodium (Porcine) 5,000 unit 08/21/19 05:30 08/21/19 08:04 Heparin - IVPUSH 5,000 unit PRN PRN Administration Heparin Heparin Sodium (Porcine) 25, 500 mls @ 20 mls/hr 08/21/19 05:30 08/23/19 06: 04 000 unit/ Sodium Chloride IV Not Given TITR [facility] Protocol 1,000 UNIT/HR Lidocaine 1 patch 08/22/19 15:45 08/22/19 15:47 Lidoderm Patch - TP 1 patch DAILY [facility] Administration Lisinopril 20 mg 08/21/19 14:36 08/22/19 10:31 Prinivil PO 20 mg DAILY [facility] Administration Metoprolol Tartrate 25 mg 08/21/19 10:00 08/22/19 21:22 Lopressor - PO 25 mg BID [facility] Administration Miscellaneous 1 each 08/22/19 22:00 08/22/19 21:23 Lidoderm Patch Removal MC Not Given DAILY@2200 [facility] US reports, etc. reviewed in depth and discussed with consulting services ASSESSMENT/PLAN: Patient presents with SVC Syndrome Secondary to Subclavian A. Stenosis. On hep ggt going for angio today with vascular. Nephrology continues to follow; HD tomorrow. ID following; no current treatment for infection indicated. Per ENT consult, the fluid seen in the RP space is not usual (usual fluid being in the prevertebral space with SVC syndrome)-will followup with their service and consider repeat imaging. Per CTS there is no biopsy target for the suspected fibrosing mediastinitus seen on CT. Problems include: -SVC syndrome -Subclavian vein stenosis -HTN -ESRD on HD, next session friday -Less likely fibrosing mediastinitis Consulting: Nephro, Vascular, ID, CTS, ENT. Full Code
[2019-08-23 08:59] LABS: CREATININE 10.5 mg/dL (0.55-1.3)
[2019-08-23] MEDS: LIDOCAINE 5% TOPICAL PATCH TP SCH (09:58)
[2019-08-23] MEDS: METOPROLOL TARTRATE 25 MG TABLET (FP) PO SCH ×2 (09:58→22:36)
[2019-08-23] MEDS: LISINOPRIL 20 MG TABLET (FP) PO SCH (09:58)
--- NOTE | 2019-08-23 11:24 | CONSULT ---
Admitting History and Physical - Primary Care Physician PCP: Jerel Dey - Admission History of Present Illness: Per EMR- 59 year old man with ESRD on HD. Has left arm AV fistula. he has recurrent swelling of his face and neck with prior treatment for subclavian vein stenosis with balloon angioplasty in Oct 2018. He now complains of worsening swelling in his face. No problems reported with fistula access or flow. On exam there is severe facial swelling and mild stridor. left arm fistula patent with thrill present CT scan shows stenotic SVC with filling of azogous vein. Imp: SVC syndrome-venogram of SVC for venoplasty and stenting Procedure today/npo Selected Entries 08/22/19 08/22/19 08/22/19 02:05 06:00 10:00 Breakfast Lunch Supper Temperature 97.7 F 97.8 F 97.8 F 08/22/19 08/22/19 08/22/19 11:31 14:00 17:40 Breakfast 100% Lunch 75% Supper Temperature 98.3 F 97.4 F L 08/22/19 08/22/19 08/23/19 19:01 22:13 05:00 Breakfast Lunch Supper 100% Temperature 98 F 98.3 F Laboratory Tests 08/23/19 06:10 WBC 6.6 History Source: Patient Limitations to Obtaining History: No Limitations - Past Medical History [employer]: Yes: Vertigo Cardiovascular: Yes: HTN Gastrointestinal: Yes: GERD Renal/: Yes: Renal Failure, Hemodialysis Heme/Onc: Yes: Anemia Musculoskeletal: Yes: Other - Past Surgical History Past Surgical History: Yes: AV Fistula/Graft - Smoking History Smoking history: Current some day smoker Have you smoked in the past 12 months: Yes Aproximately how many cigarettes per day: 0.5 If you are a former smoker, when did you quit?: 7 YRS AGO - Alcohol/Substance Use Hx Alcohol Use: No History of Substance Use: reports: None - Social History ADL: Independent History of Recent Travel: No History - Admission Reason For Visit: [employer],END STAGE RENAL - General Mental Status: Alert and Oriented, Awake and Alert, Able to Follow Commands Attention: Intact Ability to Follow Directions: Excellent Head/Neck Control: WFL - Hearing Hearing: Functional Hearing: Normal Speech Evaluation - Communication Primary Language: THAI Oral Expression Ability: Yes: Mild Impairment - Speech Production Able to Make Needs Known: Yes: Mildly Impaired Intelligibility: Yes: Mildly Impaired - Speech Characteristics Voice Loudness: Normal Voice Pitch: Yes: Mildly Low Voice Phonatory-based Quality: Yes: Strident, Harsh, Dysphonia Speech Clarity: < 100% Articulation: Yes: Precise Rate of Speech: Intact - Language/Auditory Comprehension Follows: Yes: 1 Stage Simple Commands - Language/Verbal Expression Able to Respond to Simple Queries: Yes: WNL Able to Communicate Wants and Needs: Yes: WNL Functional Communication Status: Yes: WNL - Swallow Evaluation/Bedside Assessment Current Nutritional Intake: NPO Oral Secretions: Yes: WFL Dentition: Yes: Missing Teeth (few teeth. Reported to tolerate reg food. npo today) Recommendations - Speech Evaluation, Impression/Plan Impression: Significant swelling.Strident, harsh voice. Reported to tolerate reg food. npo today. Pt denies coughing/food sticking. - Dysphagia Impressions/Plan Dysphagia Impressions: Ongoing Evaluation *Silent aspiration: cannot be R/O at bedside
[2019-08-23] MEDS ORDERED: SODIUM CHLORIDE 250 ML IV PRN ×2 (16:06→23:50)
--- NOTE | 2019-08-23 16:06 | PN ---
Progress Note, Physician History of Present Illness: Pt seen and examined at bedside. He is awake and alert. He is going to the OR today. - Current Medication List Current Medications: Active Medications Acetaminophen (Tylenol -) 650 mg PO Q6H PRN PRN Reason: Fever Last Admin: 08/22/19 13:12 Dose: 650 mg Heparin Sodium (Porcine) (Heparin -) 1,000 unit IVPUSH PRN PRN PRN Reason: Heparin Last Admin: 08/23/19 00:55 Dose: 1,000 unit Heparin Sodium (Porcine) (Heparin -) 5,000 unit IVPUSH PRN PRN PRN Reason: Heparin Last Admin: 08/21/19 08:04 Dose: 5,000 unit Heparin Sodium (Porcine) 25, (000 unit/ Sodium Chloride) 500 mls @ 20 mls/hr IV TITR [facility]; Protocol Last Admin: 08/23/19 06:04 Dose: Not Given Lidocaine (Lidoderm Patch -) 1 patch TP DAILY [facility] Last Admin: 08/23/19 09:58 Dose: 1 patch Lisinopril (Prinivil) 20 mg PO DAILY [facility] Last Admin: 08/23/19 09:58 Dose: 20 mg Metoprolol Tartrate (Lopressor -) 25 mg PO BID [facility] Last Admin: 08/23/19 09:58 Dose: 25 mg Miscellaneous (Lidoderm Patch Removal) 1 each MC DAILY@2200 [facility] Last Admin: 08/22/19 21:23 Dose: Not Given - Objective Vital Signs: Vital Signs Temperature 97.9 F 08/23/19 14:00 Pulse Rate 82 08/23/19 14:00 Respiratory Rate 18 08/23/19 14:00 Blood Pressure 159/86 08/23/19 14:00 O2 Sat by Pulse Oximetry (%) 97 08/22/19 07:00 Constitutional: Yes: Calm Eyes: Yes: Conjunctiva Clear HENT: Yes: Atraumatic Neck: Yes: Supple Cardiovascular: Yes: S1, S2 Respiratory: Yes: CTA Bilaterally Gastrointestinal: Yes: Soft Genitourinary: Yes: WNL Musculoskeletal: Yes: WNL Extremities: Yes: WNL Edema: Yes Edema: LUE: 1+, RUE: 1+ Neurological: Yes: Oriented Psychiatric: Yes: Oriented Labs: CBC, BMP 08/23/19 06:10 08/23/19 06:10 INR, PTT INR 1.12 (0.83-1.09) H 08/23/19 06:10 Problem List - Problems (1) Facial swelling Code(s): R22.0 - LOCALIZED SWELLING, MASS AND LUMP, HEAD (2) Swollen arm Code(s): M79.89 - OTHER SPECIFIED SOFT TISSUE DISORDERS (3) ESRD (end stage renal disease) Code(s): N18.6 - END STAGE RENAL DISEASE (4) Hypertension Code(s): I10 - ESSENTIAL (PRIMARY) HYPERTENSION Qualifiers: Assessment/Plan Current Medications Generic Name Dose Route Start Last Admin Trade Name Freq PRN Reason Stop Dose Admin Acetaminophen 650 mg 08/22/19 02:12 08/22/19 13:12 Tylenol - PO 650 mg Q6H PRN Administration Fever Heparin Sodium (Porcine) 1,000 unit 08/21/19 05:30 08/23/19 00:55 Heparin - IVPUSH 1,000 unit PRN PRN Administration Heparin Heparin Sodium (Porcine) 5,000 unit 08/21/19 05:30 08/21/19 08:04 Heparin - IVPUSH 5,000 unit PRN PRN Administration Heparin Heparin Sodium (Porcine) 25, 500 mls @ 20 mls/hr 08/21/19 05:30 08/23/19 06: 04 000 unit/ Sodium Chloride IV Not Given TITR [facility] Protocol 1,000 UNIT/HR Lidocaine 1 patch 08/22/19 15:45 08/23/19 09:58 Lidoderm Patch - TP 1 patch DAILY [facility] Administration Lisinopril 20 mg 08/21/19 14:36 08/23/19 09:58 Prinivil PO 20 mg DAILY [facility] Administration Metoprolol Tartrate 25 mg 08/21/19 10:00 08/23/19 09:58 Lopressor - PO 25 mg BID [facility] Administration Miscellaneous 1 each 08/22/19 22:00 08/22/19 21:23 Lidoderm Patch Removal MC Not Given DAILY@2200 [facility] Impression 1. ESRD 2. HTN 3. subclavian vein stenosis 4. anemia Plan - HD tomorrow - pt going to OR - renal diet - monitor bp
[2019-08-23] MEDS ORDERED: MIDAZOLAM HCL 2 MG/2 ML SINGLE DOSE VIAL ONE (22:10)
[2019-08-23] MEDS ORDERED: ceFAZolin SODIUM 1 GM VIAL ONE (22:19)
[2019-08-23] MEDS ORDERED: LIDOCAINE HCL 1%, 10 MG/ML (20ML VIAL) ONE (22:22)
[2019-08-23] MEDS ORDERED: LIDOCAINE HCL 1%, 10 MG/ML (20ML VIAL) PNB ONE (22:28)
[2019-08-23] MEDS: LIDOCAINE PATCH REMOVAL MC SCH (22:36)
[2019-08-23] MEDS ORDERED: HEPARIN NA (PORCINE) 5,000 UNITS/ML 1ML VIAL ONE (22:46)
--- NOTE | 2019-08-23 23:25 | OP ---
Operative Note - Note: Operative Date: 08/23/19 Pre-Operative Diagnosis: SVC Syndrome Operation: Venoplasty left jugular, innominate vein and SVC Findings: Multiple stenoses of left proximal IJ, Innominate vein and SVC Post-Operative Diagnosis: Same as Pre-op Surgeon: Charlie Bates Anesthesiologist/CLINICAL DOCUMENTATION MANAGER: Jeni Zazueta Anesthesia: Fractional Estimated Blood Loss (mls): 10
[2019-08-23] MEDS ORDERED: ONDANSETRON 4 MG/2 ML VIAL IVPUSH PRN (23:40)
[2019-08-23] MEDS ORDERED: SODIUM CHLORIDE 1,000 ML IV SCH (23:45)
[2019-08-23] MEDS ORDERED: ACETAMINOPHEN 325 MG TABLET (FP) PO PRN ×2 (23:48→23:50)
[2019-08-23] MEDS ORDERED: oxyCODONE HCL 5 MG TABLET PO PRN (23:48)
[2019-08-23] MEDS ORDERED: LIDOCAINE PATCH REMOVAL MC SCH (23:50)
--- NOTE | 2019-08-24 08:40 | PN ---
Progress Note (short form) - Note Progress Note: Anesthesia postop note 59 y/o s/p MAC for venogram venoplasy POD#1, aaox3, vss, no complaints. No anesthesia complications.
[2019-08-24] MEDS ORDERED: EPOETIN ALFA 3,000 UNIT, EPOETIN ALFA 2,000 UNIT IVPUSH ONE (09:15)
--- NOTE | 2019-08-24 09:20 | PN ---
Progress Note (short form) - Note Progress Note: POD 1, s/p Venoplasty left jugular, innominate vein and SVC for SVC Syndrome Pt seen and examined. States he is doing okay this morning. Does not feel any difference if swelling. Continues to have gurgling which he reports has been present x 3 months. Has been oob, tolerating PO. RN bedside reports scheduled HD this AM. Denies cp/sob, n/v/d. Vital Signs Temp 98.9 F 08/24/19 06:00 Pulse 100 H 08/24/19 06:00 Resp 20 08/24/19 06:00 BP 162/78 08/24/19 06:00 Pulse Ox 100 08/24/19 00:30 Intake & Output 08/23/19 08/23/19 08/24/19 11:59 23:59 11:59 Intake Total 147 250 150 Output Total 0 Balance 147 250 150 Weight 172 lb 169 lb 1.6 oz Intake: IV 147 250 150 Heparin - 25,000 Unit In 147 Normal Saline - 495 ml @ 1,000 UNIT/HR 20 mls/hr IV TITR [facility] Rx#: [id number] Normal Saline - 1,000 ml 150 @ 42 mls/hr IV ASDIR [facility] Rx#:[id number] Output: Urine 0 Other: Voiding Method Toilet Toilet # Unmeasured Voids Void 0 Bowel Movement No No Weight Measurement Method Built in Bedscale Built in Bedscale CBC, BMP 08/23/19 06:10 08/23/19 06:10 Gen: awake, alert nad Head/Neck: + facial and upper neck edema (pt reports stable x 3 months) Resp: Unlabored on RA UE: LUE with palpable thrill over AVF. Motor/sensory intact b/l u/e's. Palpable radial b/l. A/P: 59 y/o M w/ PMHx esrd on hd via LUE AVF, anemia and htn a/w worsening facial/neck edema now POD 1, s/p Venoplasty left jugular, innominate vein and SVC for SVC Syndrome. Afebrile, VSS HD this AM -Lovenox 40mg bid d/c'ed -Please re-instate DVT prophylaxis per primary team -Pt should f/u with Dr Bates upon discharge for scheduling of f/u venogram d/w attending Dr Bates Pt aware
[2019-08-24 09:22] VITALS: TEMP 98.3
[2019-08-24 09:38] LABS: HEMATOCRIT 31.1 % (35.4-49); HEMOGLOBIN 10.4 GM/dL (11.7-16.9); MCHC 33.3 g/dl (32.0-35.9); MEAN CELL VOLUME 86.9 fl (80-96); MEAN PLT VOLUME 7.4 fl (7.5-11.1); PLATELET COUNT 238 K/MM3 (134-434); RBC 3.58 M/mm3 (4.00-5.60); RDW 14.8 % (11.9-15.9); WHITE BLOOD COUNT 6.4 K/mm3 (4.0-10.0)
[2019-08-24] MEDS ORDERED: METOPROLOL TARTRATE 25 MG TABLET (FP) PO SCH (10:00)
[2019-08-24] MEDS ORDERED: ENOXAPARIN NA (PORCINE) 40 MG/0.4 ML DISP.SYRIN SQ SCH (10:00)
--- NOTE | 2019-08-24 10:27 | PN ---
Teaching Attending Note Name of Resident: Moi Giang ATTENDING PHYSICIAN STATEMENT I saw and evaluated the patient. I reviewed the resident's note and discussed the case with the resident. I agree with the resident's findings and plan as documented. Seen and examined; please see resident note for further discussion. Seen in HD. He is improved in terms of his presenting sx mildly and tells me that he tolerated the procedure well. Will discuss with nephrology and vascular for DC planning. Noted BID lovenox written by surgical services; will discuss about this vs. PO eliquis given ESRD. 10 sys ROS done and negative aside from HPI VS, labs, imaging reviewed NAD, AAO, resting in bed RRR s1/2 No bleeding from angio site, on HD, fistula OK NT ND +BS CN2-12 wnl, no dyphagia or dyspnea Trachea midline, neck swelling without fluctuance or tenderness. Normal mood, appropriate behavior Operative report noted Followup any post HD labs; will discuss if required with nephrology ASSESSMENT AND PLAN: Overall patient presents with SVC syndrome that has been developing for several months; this is likely 2/2 permacath insertion issues. He is afebrile and hemodynamicaly stable and doing well post op and is POD#1 from angio ( Venoplasty left jugular, innominate vein and SVC with multiple stenotic sites noted in operative report). HD today. No apparent infection. Will discuss ENT followup with their service given the expected prevertebral fluid findings evident with this kind of edema being expected vs. his neck CT findings. Overall he continues to do well. Problems include: -SVC syndrome -Subclavian vein stenosis -HTN -ESRD on HD, next session friday -Less likely fibrosing mediastinitis Full Code
[2019-08-24] MEDS: LIDOCAINE 5% TOPICAL PATCH TP SCH ×2 (10:49→13:29)
[2019-08-24] MEDS: LISINOPRIL 20 MG TABLET (FP) PO SCH ×2 (10:50→13:30)
--- NOTE | 2019-08-24 12:01 | DS ---
Physical Exam: SUBJECTIVE: Patient seen and examined OBJECTIVE: Vital Signs Period Temp Pulse Resp BP Sys/Beyer Pulse Ox Last 24 Hr 97.9 F-99 F 47-100 12-20 120-173/71-97 97-100 PHYSICAL EXAM GENERAL: The patient is awake, alert, and fully oriented, in no acute distress. HEAD: Normal with no signs of trauma. EYES: PERRL, extraocular movements intact, sclera anicteric, conjunctiva clear. ENT: Ears normal, nares patent, oropharynx clear without exudates, moist mucous membranes. NECK: Trachea midline, full range of motion, supple. LUNGS: Breath sounds equal, clear to auscultation bilaterally, no wheezes, no crackles, no accessory muscle use. HEART: Regular rate and rhythm, S1, S2 without murmur, rub or gallop. ABDOMEN: Soft, nontender, nondistended, normoactive bowel sounds, no guarding, no rebound, no hepatosplenomegaly, no masses. EXTREMITIES: 2+ pulses, warm, well-perfused, no edema. NEUROLOGICAL: Cranial nerves II through XII grossly intact. Normal speech, gait not observed. PSYCH: Normal mood, normal affect. SKIN: Warm, dry, normal turgor, no rashes or lesions noted. 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 Please follow-up with Dr. Pond to establish a primary care physician within the next 3-4 days. Please follow-up with your regular dialysis schedule (Friday, , Friday) like you have been doing before this hospitalization. Referrals: Don Pond MD [Staff Physician] - Charlie Bates MD [Staff Physician] - Disposition: HOME - Home Medications Comprehensive Discharge Medication List: Ambulatory Orders Lisinopril [Prinivil] 20 mg PO DAILY 04/29/19 Metoprolol Tartrate [Lopressor -] 25 mg PO BID 04/29/19 ATTENDING PHYSICIAN STATEMENT I saw and evaluated the patient. I reviewed the resident's note and discussed the case with the resident. I agree with the resident's findings and plan as documented. SUBJECTIVE: OBJECTIVE: ASSESSMENT AND PLAN:
[2019-08-24 12:29] VITALS: BP 150/84; PULSE 72
--- NOTE | 2019-08-24 13:40 | PN ---
Progress Note, Physician History of Present Illness: Pt seen and examined at bedside. He is awake and alert. He is tolerating HD. His facial swelling is improving. - Current Medication List Current Medications: Active Medications Acetaminophen (Tylenol -) 325 mg PO Q4H PRN PRN Reason: PAIN LEVEL 1-5 Stop: 08/26/19 23:47 Acetaminophen (Tylenol -) 650 mg PO Q6H PRN PRN Reason: Fever Sodium Chloride (Normal Saline -) 250 mls @ 3,000 mls/hr IV PRN PRN PRN Reason: Hypotension during Dialysis Stop: 08/24/19 16:06 Lidocaine (Lidoderm Patch -) 1 patch TP DAILY [facility] Last Admin: 08/24/19 13:29 Dose: 1 patch Lisinopril (Prinivil) 20 mg PO DAILY [facility] Last Admin: 08/24/19 13:30 Dose: 20 mg Metoprolol Tartrate (Lopressor -) 25 mg PO BID [facility] Last Admin: 08/24/19 10:50 Dose: Not Given Miscellaneous (Lidoderm Patch Removal) 1 each [facility] DAILY@2200 [facility] Ondansetron HCl (Zofran Injection) 4 mg IVPUSH Q6H PRN PRN Reason: NAUSEA AND/OR VOMITING Oxycodone HCl (Roxicodone -) 5 mg PO Q4H PRN PRN Reason: PAIN LEVEL 1-5 - Objective Vital Signs: Vital Signs Temperature 98.3 F 08/24/19 08:45 Pulse Rate 72 08/24/19 12:28 Respiratory Rate 18 08/24/19 12:28 Blood Pressure 150/84 08/24/19 12:28 O2 Sat by Pulse Oximetry (%) 97 08/24/19 09:00 Constitutional: Yes: Calm Eyes: Yes: Conjunctiva Clear HENT: Yes: Atraumatic Neck: Yes: Supple Cardiovascular: Yes: S1, S2 Respiratory: Yes: CTA Bilaterally Gastrointestinal: Yes: Soft Genitourinary: Yes: WNL Musculoskeletal: Yes: WNL Edema: LUE: Trace, RUE: Trace Neurological: Yes: Oriented Psychiatric: Yes: Oriented Labs: CBC, BMP 08/24/19 08:50 08/23/19 06:10 INR, PTT INR 1.12 (0.83-1.09) H 08/23/19 06:10 Problem List - Problems (1) Facial swelling Code(s): R22.0 - LOCALIZED SWELLING, MASS AND LUMP, HEAD (2) Swollen arm Code(s): M79.89 - OTHER SPECIFIED SOFT TISSUE DISORDERS (3) ESRD (end stage renal disease) Code(s): N18.6 - END STAGE RENAL DISEASE (4) Hypertension Code(s): I10 - ESSENTIAL (PRIMARY) HYPERTENSION Qualifiers: Assessment/Plan Current Medications Generic Name Dose Route Start Last Admin Trade Name Freq PRN Reason Stop Dose Admin Acetaminophen 325 mg 08/23/19 23:48 Tylenol - PO 08/26/19 23:47 Q4H PRN PAIN LEVEL 1-5 Acetaminophen 650 mg 08/23/19 23:50 Tylenol - PO Q6H PRN Fever Sodium Chloride 250 mls @ 3,000 mls/hr 08/23/19 23:50 Normal Saline - IV 08/24/19 16:06 PRN PRN Hypotension during Dialysis Lidocaine 1 patch 08/24/19 10:00 08/24/19 13:29 Lidoderm Patch - TP 1 patch DAILY [facility] Administration Lisinopril 20 mg 08/24/19 10:00 08/24/19 13:30 Prinivil PO 20 mg DAILY [facility] Administration Metoprolol Tartrate 25 mg 08/24/19 10:00 08/24/19 10:50 Lopressor - PO Not Given BID [facility] Miscellaneous 1 each 08/24/19 22:00 Lidoderm Patch Removal MC DAILY@2200 [facility] Ondansetron HCl 4 mg 08/23/19 23:40 Zofran Injection IVPUSH Q6H PRN NAUSEA AND/OR VOMITING Oxycodone HCl 5 mg 08/23/19 23:48 Roxicodone - PO Q4H PRN PAIN LEVEL 1-5 Impression 1. ESRD 2. HTN 3. subclavian vein stenosis 4. anemia Plan - HD today - pt has HD set up as outpt - s/p angio - vascular follow up as outpt - discussed with medical team
[2019-08-24] MEDS ORDERED: EPOETIN ALFA 2,000 UNIT/1 ML VIAL IVPUSH ONE ×2 (16:06)
[2019-08-24] MEDS ORDERED: LIDOCAINE PATCH REMOVAL MC SCH (22:00)
== END 2019-08-24 14:08 | disposition home or self-care (01) | DRG 263 ==
LOC: JER 20:46 → JERBED 08-21 03:24 → J8W 08-21 21:50
PROVIDERS: ADMIT Internal Medicine; ATTEND Internal Medicine
PROC: 05QN0ZZ Repair Left Internal Jugular Vein, Open Approach (ICD-10-PCS; principal; 2019-08-23 17:00)
PROC: 5A1D70Z Performance of Urinary Filtration, Intermittent, Less than 6 Hours Per Day (ICD-10-PCS; 2019-08-24)
DX: I87.1 Compression of vein (principal); N18.6 End stage renal disease; I12.0 Hypertensive chronic kidney disease with stage 5 chronic kidney disease or end stage renal disease; Z99.2 Dependence on renal dialysis; M79.89 Other specified soft tissue disorders; K21.9 Gastro-esophageal reflux disease without esophagitis
CPT/HCPCS: 36415; 70491-TC; 71260-TC; 76000-TC-FY; 76705-TC; 80048; 80053; 80069; 84443; 85025; 85027; 85610; 85651; 85730; 86140; 86803; 86850; 86900; 86901; 87040; 87081; 87340; 93005; 93010; 93970-TC; 93971; 94760; 99285-25; J0885; J1644; J7030

== ENCOUNTER 2019-12-16 22:33 | Emergency (ER) | payer OTHER ==
[2019-12-16 22:48] VITALS: TEMP 97.5; BMI 24.6
--- NOTE | 2019-12-17 00:04 | PDOC ---
History of Present Illness - General Chief Complaint: Chest Pain Stated Complaint: CHEST PAIN Time Seen by Provider: 12/16/19 23:35 - History of Present Illness Initial Comments: Jesús Tejeda is a 59yo man with a PMH of ESRD on HD (TThSa), HTN, asthma, GERD, who presents reporting intermittent burning epigastric and abdominal pain that first started 2 days ago. The pain is nonradiating, and 7/10 at worst. It becomes stabbing in nature when he coughs. He has not tried any medication to improve the pain, but he notes that it seems to improve with eating. Mr Tejeda denies any associated chest pain, difficulty breathing, nausea/vomiting, change in bowel habits, cough/congestion, or other new symptoms. Past History - Past Medical History Allergies/Adverse Reactions: Allergies Allergy/AdvReac Type Severity Reaction Status Date / Time No Known Allergies Allergy Verified 08/20/19 21:11 Home Medications: Ambulatory Orders Lisinopril [Prinivil] 20 mg PO DAILY 04/29/19 Metoprolol Tartrate [Lopressor -] 25 mg PO BID 04/29/19 Famotidine [Acid Controller] 20 mg PO DAILY #30 tablet 12/17/19 Anemia: No Asthma: Yes (childhood) Cancer: No Cardiac Disorders: Yes (sob d/t facial swelling) CVA: No COPD: No CHF: No DVT: No Dementia: No Diabetes: No Dialysis: Yes GI Disorders: No Disorders: No HTN: Yes Hypercholesterolemia: No Liver Disease: No Seizures: No Thyroid Disease: No - Surgical History Abdominal Surgery: No Appendectomy: No Cardiac Surgery: No Cholecystectomy: No Lung Surgery: No Neurologic Surgery: No Orthopedic Surgery: No - Immunization History Immunization Up to Date: Yes - Psycho Social/Smoking Cessation Hx Smoking History: Former smoker Have you smoked in the past 12 months: No Number of Cigarettes Smoked Daily: 0.5 If you are a former smoker, when did you quit?: 7 YRS AGO Information on smoking cessation initiated: No 'Breaking Loose' booklet given: 08/21/19 Hx Alcohol Use: No Drug/Substance Use Hx: No Substance Use Type: None Hx Substance Use Treatment: No Review of Systems - Review of Systems Comments:: General: No fevers, no chills, no weight or appetite change, no malaise HEENT: No changes in vision, no changes in hearing, no congestion, no sore throat CV: No chest pain, no palpitations, no LE edema Pulm: No SOB, no cough, no wheezing GI: No nausea or vomiting, no change in bowel habits, no melena : No frequency, no urgency, no dysuria Musc: No back pain, no joint swelling, no recent injury Skin: No rash, no lesions, no erythema Endo: No excessive thirst, no heat/cold intolerance Heme: No unusual bruising or bleeding, no swollen glands Neuro: No syncope, no numbness/tingling, no focal weakness Vasc: No claudication Psych: No recent change in mood, no SI or HI *Physical Exam - Vital Signs Last Vital Signs Temp Pulse Resp BP Pulse Ox 97.5 F L 112 H 21 H 156/88 100 12/16/19 22:44 12/16/19 22:44 12/16/19 22:44 12/16/19 22:44 12/16/19 22:44 - Physical Exam General: Comfortable, no acute distress HEENT: PERRL, EOMI, MMM, voice normal, normal neck ROM, no LAD Cards: RRR, no murmur appreciated Pulm: Comfortable on room air, clear to auscultation bilaterally Abd: Soft, nontender, nondistended : No CVA tenderness Rectal: Normal tone, no blood noted, no perianal lesions Ext: Atraumatic. No LE edema. ROM intact. Strength 5/5 and equal bilaterally Vasc: Extremities WWP. Palpable radial and pedal pulses bilaterally Skin: Normal color, no rashes or lesions Neuro: A&Ox3, CN grossly intact, normal speech, motor/sensory grossly intact and symmetric Psych: Mood appropriate to situation ED Treatment Course - LABORATORY CBC & Chemistry Diagram: 12/17/19 00:15 12/17/19 02:34 Medical Decision Making - Medical Decision Making 12/16/19 23:57 Jesús Tejeda is a 59yo man with a PMH of ESRD on HD (TThSa), HTN, asthma, GERD, who presents reporting intermittent burning epigastric and abdominal pain that first started 2 days ago. It improves with eating and is not associated with any other symptoms. - Ddx includes GERD, less likely cholecystits or biliary colic given improvement with eating. Flu possible given stomach pain and cough. Less likely ACS as he has no chest pain, SOB, or other associated symptoms, but cannot rule out given age and comorbidities - CBC, CMP, trop, EKG, CXR - Famotidine, Maalox for symptoms 12/17/19 01:45 - Chemistry, trop hemolized. Reordered - CBC unremarkable - EKG with NSR, HR 83, normal axis, normal intervals, no t-wave or ST abnormalities 12/17/19 04:38 - Labs reviewed. Notable for Cr over 7, well within pt's normal range. Trop 0.06 is lowest recorded. Patient has seen cardiology with this finding previously with any concerns, and he has had pain for over two days. Will not draw additional labs - Reassessed. Pt feels improved - Will discharge home with famotidine prescription for likely GERD. - Strongly advised to follow up with his primary care doctor if symptoms continue. Will refer to GI. Discussed with Dr Henry Yadav PGY2 Discharge - Discharge Information Problems reviewed: Yes Clinical Impression/Diagnosis: Epigastric burning sensation Condition: Stable Disposition: HOME - Admission No - Additional Discharge Information Prescriptions: Famotidine [Acid Controller] 20 mg PO DAILY #30 tablet - Follow up/Referral - Patient Discharge Instructions Patient Printed Discharge Instructions: DI for Epigastric Pain Additional Instructions: Discharge Instructions: You were seen in the emergency department for burning stomach pain. This is most likely due to stomach acid. Home Care: - You have been prescribed a medication called famotidine. This should be taken every day one hour before dinner to help prevent symptoms. Take it even if you are feeling well - Make an appointment to see your regular doctor within the next week - You have been given contact information for several GI doctors (Dr Dalton, Dr Chavez, Dr Mann). Call one of them and make an appointment for follow up within the next several weeks. Seek immediate care for worsening pain, chest pain, difficulty breathing, persistent vomiting, inability to eat, or any other medical emergency. - Post Discharge Activity
[2019-12-17] MEDS ORDERED: FAMOTIDINE 20 MG/50 ML IVPB 20 MG/50 ML MG IVPB ONE ×2 (00:08→00:18)
[2019-12-17] MEDS ORDERED: MAG HYDROX/AL HYDROX/SIMETH 30 ML UNIT-DOSE CUP PO ONE (00:08)
--- NOTE | 2019-12-17 00:08 | PDOC ---
Attending Attestation - Resident Resident Name: Kelsie Yadav - ED Attending Attestation I have performed the following: I have examined & evaluated the patient, The case was reviewed & discussed with the resident, I agree w/resident's findings & plan, Exceptions are as noted - HPI HPI: 12/17/19 05:21 See resident HPI - Physicial Exam PE: 12/17/19 05:21 Agree with resident exam - Medical Decision Making 12/17/19 05:21 burning epigastric px, consider gerd, gastritis f/u labs symptomatic tx re-eval Labs only with chronic derangements symptoms improved dc
[2019-12-17] MEDS ORDERED: MAG HYDROX/AL HYDROX/SIMETH 30 ML UNIT-DOSE CUP ONE (00:18)
[2019-12-17] MEDS ORDERED: LISINOPRIL 20 MG TABLET (FP) PO ONE (00:19)
[2019-12-17] MEDS ORDERED: METOPROLOL TARTRATE 25 MG TABLET (FP) PO ONE (00:20)
[2019-12-17] MEDS ORDERED: METOPROLOL TARTRATE 25 MG TABLET (FP) ONE (00:34)
[2019-12-17] MEDS ORDERED: LISINOPRIL 20 MG TABLET (FP) ONE (00:35)
[2019-12-17 00:48] LABS: BASO % 1.1 % (0-2.0); EOS % 10.9 % (0-4.5); HEMATOCRIT 35.1 % (35.4-49); HEMOGLOBIN 11.7 GM/dL (11.7-16.9); LYMPH % 31.4 % (8-40); MCH 29.1 pg (25.7-33.7); MCHC 33.2 g/dl (32.0-35.9); MEAN CELL VOLUME 87.6 fl (80-96); MEAN PLT VOLUME 7.8 fl (7.5-11.1); MONO % 7.9 % (3.8-10.2); NEUT % 48.7 % (42.8-82.8); PLATELET COUNT 246 K/MM3 (134-434); RBC 4.01 M/mm3 (4.00-5.60); RDW 15.6 % (11.9-15.9); WHITE BLOOD COUNT 5.1 K/mm3 (4.0-10.0)
[2019-12-17 04:13] LABS: ALBUMIN 3.5 g/dl (3.4-5.0); BILIRUBIN,TOTAL 0.3 mg/dL (0.2-1); BLOOD UREA NITROGEN 27.3 mg/dL (7-18); CALCIUM 8.1 mg/dL (8.5-10.1); POTASSIUM 3.6 mmol/L (3.5-5.1); TOT PROT 6.8 g/dl (6.4-8.2)
[2019-12-17 04:15] LABS: CREATININE 7.4 mg/dL (0.55-1.3)
[2019-12-17 06:31] VITALS: BP 149/83; PULSE 99
--- NOTE | 2019-12-17 13:25 | EKG ---
Test Reason : Blood Pressure : / mmHG Vent. Rate : 106 BPM Atrial Rate : 106 BPM P-R Int : 158 ms QRS Dur : 074 ms QT Int : 334 ms P-R-T Axes : 082 007 076 degrees QTc Int : 443 ms SINUS TACHYCARDIA BIATRIAL ENLARGEMENT POSSIBLE INFERIOR INFARCT , AGE UNDETERMINED CANNOT RULE OUT ANTERIOR INFARCT (CITED ON OR BEFORE 26-MAY-2018) ABNORMAL ECG Confirmed by SHAYNE ZAMAN MD ([id number]) on 12/17/2019 1:24:30 PM Referred By: Confirmed By:SHAYNE ZAMAN MD
--- NOTE | 2019-12-20 12:51 | EKG ---
Test Reason : Blood Pressure : / mmHG Vent. Rate : 083 BPM Atrial Rate : 083 BPM P-R Int : 166 ms QRS Dur : 082 ms QT Int : 358 ms P-R-T Axes : 083 017 068 degrees QTc Int : 420 ms NORMAL SINUS RHYTHM NORMAL ECG WHEN COMPARED WITH ECG OF 16-DEC-2019 22:39, VENT. RATE HAS DECREASED Confirmed by FRANKIE GARCIA MD ([id number]) on 12/20/2019 12:51:10 PM Referred By: Confirmed By:FRANKIE GARCIA MD
== END 2019-12-17 06:05 | disposition home or self-care (01) ==
LOC: JER 22:33
PROC: 3E033GC Introduction of Other Therapeutic Substance into Peripheral Vein, Percutaneous Approach (ICD-10-PCS; principal; 2019-12-16)
DX: R10.13 Epigastric pain (principal); I12.0 Hypertensive chronic kidney disease with stage 5 chronic kidney disease or end stage renal disease; N18.6 End stage renal disease; N17.8 Other acute kidney failure; Z99.2 Dependence on renal dialysis; K21.9 Gastro-esophageal reflux disease without esophagitis; J45.909 Unspecified asthma, uncomplicated; Z87.891 Personal history of nicotine dependence
CPT/HCPCS: 36415; 71046-TC-FY; 80053; 82550; 84484; 85025; 87804; 93005; 93010; 99283-25

== ENCOUNTER 2019-12-28 21:53 | Emergency (ER) | payer OTHER ==
--- NOTE | 2019-12-28 22:56 | PDOC ---
History of Present Illness - General Stated Complaint: ABDOMINAL PAIN Time Seen by Provider: 12/28/19 22:45 History Source: Patient Exam Limitations: No Limitations - History of Present Illness Initial Comments: 12/28/19 23:13 59 yo M with a hx of ESRD on HD (TThSa; last session today)), HTN, asthma, and GERD presents to the emergency department with epigastric pain since 2 pm while at dialysis. Per the patient, he states he had a burning like sensation in his abdomen with radiation to the throat. He states it feels like a burning sensation. denies taking medications to relieve it at the dialysis center. Denies taking H2 blockers and PPIs. Denies the following: chest pain, sOB, headache, lightheadedness, radiation of pain to the arms and neck, back pain, dysuria, hematuria, diarrhea, hematochezia, and leg pain/swelling. Allergies: NKDA Social: Denies tobacco, alcohol, and illicit substance consumption Past History - Past Medical History Allergies/Adverse Reactions: Allergies Allergy/AdvReac Type Severity Reaction Status Date / Time No Known Allergies Allergy Verified 08/20/19 21:11 Home Medications: Ambulatory Orders Lisinopril [Prinivil] 20 mg PO DAILY 04/29/19 Metoprolol Tartrate [Lopressor -] 25 mg PO BID 04/29/19 Famotidine [Acid Controller] 20 mg PO DAILY #30 tablet 12/17/19 Anemia: No Asthma: Yes (childhood) Cancer: No Cardiac Disorders: Yes (sob d/t facial swelling) CVA: No COPD: No CHF: No DVT: No Dementia: No Diabetes: No Dialysis: Yes GI Disorders: No Disorders: No HTN: Yes Hypercholesterolemia: No Liver Disease: No Seizures: No Thyroid Disease: No - Surgical History Abdominal Surgery: No Appendectomy: No Cardiac Surgery: No Cholecystectomy: No Lung Surgery: No Neurologic Surgery: No Orthopedic Surgery: No - Immunization History Immunization Up to Date: Yes - Psycho Social/Smoking Cessation Hx Smoking History: Former smoker Have you smoked in the past 12 months: No Number of Cigarettes Smoked Daily: 0.5 If you are a former smoker, when did you quit?: 7 YRS AGO 'Breaking Loose' booklet given: 08/21/19 Hx Alcohol Use: No Drug/Substance Use Hx: No Substance Use Type: None Hx Substance Use Treatment: No *Physical Exam - Physical Exam General Appearance: Yes: Nourished, Appropriately Dressed. No: Apparent Distress, Intoxicated HEENT: positive: EOMI, SHILA, Normal Voice, Symmetrical, Pharynx Normal, Hearing Grossly Normal. negative: Pale Conjunctivae, Scleral Icterus (R), Scleral Icterus (L), Muffled/Hoarse voice, Pharyngeal Erythema, Tonsillar Exudate, Tonsillar Erythema, Nasal Congestion, Rhinorrhea, Sinus Tenderness, Excessive drooling Neck: positive: Trachea midline, Supple. negative: Tender, Lymphadenopathy (R) , Lymphadenopathy (L), Tender lateral, Tender midline Respiratory/Chest: positive: Lungs Clear, Normal Breath Sounds. negative: Chest Tender, Respiratory Distress, Accessory Muscle Use, Rhonchi, Stridor, Wheezing Cardiovascular: positive: Regular Rhythm, Regular Rate, S1, S2. negative: Systolic Murmur Gastrointestinal/Abdominal: positive: Normal Bowel Sounds, Tender (epigastric region), Flat, Soft. negative: Distended, Guarding, Rebound Lymphatic: negative: Adenopathy Musculoskeletal: positive: Normal Inspection. negative: CVA Tenderness, Vertebral Tenderness Extremity: positive: Normal Capillary Refill, Normal Inspection, Normal Range of Motion, Other (appropriate palpated bruit on AV fistula. no bleeding noted). negative: Tender Integumentary: positive: Normal Color, Dry, Warm. negative: Swelling, Ecchymosis Neurologic: positive: parliamentary librarian II-XII NML intact, Fully Oriented, Alert, Normal Mood/ Affect ED Treatment Course - LABORATORY CBC & Chemistry Diagram: 12/29/19 00:00 12/29/19 00:00 Medical Decision Making - Medical Decision Making 59 yo M with a hx of ESRD on HD (TThSa; last session today)), HTN, asthma, and GERD presents to the emergency department with epigastric pain since 2 pm while at dialysis. Initial vitals: Initial Vital Signs Temp Pulse Resp BP Pulse Ox 97.7 F 68 18 142/68 100 12/28/19 22:40 12/28/19 22:40 12/28/19 22:40 12/28/19 22:40 12/28/19 22:40 Work up: ddx: patient presents with pain in the epigastric region. likely gastritis vs GERD. unlikely to be ACS vs PNA but will rule out. Laboratory Tests 12/29/19 12/29/19 00:00 00:00 WBC 6.6 RBC 3.69 L Hgb 10.7 L Hct 32.2 L MCV 87.3 MCH 28.9 MCHC 33.1 RDW 15.0 Plt Count 246 MPV 7.5 Absolute Neuts (auto) 3.9 Neutrophils % 59.3 D Lymphocytes % 23.0 D Monocytes % 10.3 H Eosinophils % 6.5 H Basophils % 0.9 Nucleated RBC % 0 Sodium 137 Potassium 5.3 H Chloride 103 Carbon Dioxide 26 Anion Gap 8 BUN 21.2 H Creatinine 6.8 H Est GFR (CKD-EPI)AfAm 9.50 Est GFR (CKD-EPI)NonAf 8.19 Random Glucose 72 L Calcium 8.2 L Total Bilirubin 0.4 AST 71 H ALT 52 Alkaline Phosphatase 85 Creatine Kinase 285 Creatine Kinase Index 0.7 CK-MB (CK-2) 2.0 Troponin I 0.05 Total Protein 6.6 Albumin 3.2 L Lipase 322 potassium is appropriate level EKG: ventricular rate is 62 bpm, QTc is [address] elevations or depressions. No T wave peaking. US was negative for cholelithiasis and cholecystitis. No elevation in lipase. Trop negative. No leukocytosis. Patient had resolution of symptoms with pepcid, zofran Patient to be discharged. Discharge - Discharge Information Problems reviewed: Yes Clinical Impression/Diagnosis: Abdominal pain Disposition: HOME - Follow up/Referral Referrals: Juni Ramos MD [Primary Care Provider] - - Patient Discharge Instructions Additional Instructions: You were seen in the emergency for your abdominal pain, Your ultrasound and blood work were within normal limits. Please follow up with your physician within 1 week after discharge for follow up care and management. Thank you. - Post Discharge Activity
[2019-12-28] MEDS ORDERED: ONDANSETRON 4 MG/2 ML VIAL IVPUSH ONE (23:14)
[2019-12-28] MEDS ORDERED: FAMOTIDINE 20 MG/50 ML IVPB 20 MG/50 ML MG IVPB ONE ×2 (23:14→23:53)
[2019-12-28] MEDS ORDERED: ONDANSETRON 4 MG/2 ML VIAL ONE (23:52)
--- NOTE | 2019-12-29 00:06 | PDOC ---
Documentation entered by Gillian Hurd SCRIBE, acting as scribe for Jennifer Henson MD. Jennifer Henson MD: This documentation has been prepared by the Vannessa dean Xhesika, SCRIBE, under my direction and personally reviewed by me in its entirety. I confirm that the documentation accurately reflects all work, treatment, procedures, and medical decision making performed by me. Attending Attestation - Resident Resident Name: Jerel Cruz - ED Attending Attestation I have performed the following: I have examined & evaluated the patient, The case was reviewed & discussed with the resident, I agree w/resident's findings & plan, Exceptions are as noted - HPI HPI: 12/28/19 23:08 The patient is a 59 year old male with a significant history of ESRD on HD (; last session today), HTN, asthma, GERD who presents to the ED with epigastric pain since 2pm. The patient states he finished his session of dialysis today. Pt states his epigastric pain began while in dialysis, described as constant, burning sensation. The patient denies difficulty swallowing, chest pain, shortness of breath. Denies fever, chills, cough, nausea, vomiting, diarrhea and constipation. Denies dysuria, frequency, urgency and hematuria. Allergies:, NKDA Social Hx: Denies current smoking, drinking, or other substance usage. - Physicial Exam PE: 12/29/19 00:04 59-year-old male presents with epigastric pain that started earlier today during dialysis Head normocephalic atraumatic Neck is supple Lungs clear to auscultation bilaterally CVS regular rate and rhythm S1-S2 Abdomen abdomen is soft, no rebound or guarding, mild epigastric pain to deep palpation Skin he has a left arm AV fistula with a bruit and thrill Neuro he is alert and conversant moving all extremities - Medical Decision Making 12/29/19 00:14 59-year-old male with a history of end-stage renal disease with dialysis on Friday and Friday, he completed his dialysis today but developed epigastric pain which is been persistent since that time. Does not have a fever and he has no active vomiting 12/29/19 02:20 his ultrasound is pending case signed out to Dr Early
[2019-12-29 00:34] LABS: BASO % 0.9 % (0-2.0); EOS % 6.5 % (0-4.5); HEMATOCRIT 32.2 % (35.4-49); HEMOGLOBIN 10.7 GM/dL (11.7-16.9); MCH 28.9 pg (25.7-33.7); MCHC 33.1 g/dl (32.0-35.9); MEAN CELL VOLUME 87.3 fl (80-96); MEAN PLT VOLUME 7.5 fl (7.5-11.1); MONO % 10.3 % (3.8-10.2); NEUT % 59.3 % (42.8-82.8); PLATELET COUNT 246 K/MM3 (134-434); RBC 3.69 M/mm3 (4.00-5.60); WHITE BLOOD COUNT 6.6 K/mm3 (4.0-10.0)
[2019-12-29 00:35] VITALS: PULSE 68; BMI 29.5
[2019-12-29 01:09] LABS: ALBUMIN 3.2 g/dl (3.4-5.0); BILIRUBIN,TOTAL 0.4 mg/dL (0.2-1); BLOOD UREA NITROGEN 21.2 mg/dL (7-18); CALCIUM 8.2 mg/dL (8.5-10.1); CREATININE 6.8 mg/dL (0.55-1.3); POTASSIUM 5.3 mmol/L (3.5-5.1); TOT PROT 6.6 g/dl (6.4-8.2)
[2019-12-29 05:48] VITALS: BP 127/75; TEMP 97.6
--- NOTE | 2019-12-29 15:36 | EKG ---
Test Reason : Blood Pressure : / mmHG Vent. Rate : 062 BPM Atrial Rate : 062 BPM P-R Int : 182 ms QRS Dur : 082 ms QT Int : 390 ms P-R-T Axes : 080 016 065 degrees QTc Int : 395 ms NORMAL SINUS RHYTHM ANTEROSEPTAL INFARCT , AGE UNDETERMINED ABNORMAL ECG WHEN COMPARED WITH ECG OF 17-DEC-2019 00:16, NO SIGNIFICANT CHANGE WAS FOUND Confirmed by MD Nora, Aubrey ([id number]) on 12/29/2019 3:35:53 PM Referred By: Confirmed By:Aubrey Melendez MD
== END 2019-12-29 05:40 | disposition home or self-care (01) ==
LOC: SUPCPDRO 21:53 → JER 21:53
PROC: 3E033GC Introduction of Other Therapeutic Substance into Peripheral Vein, Percutaneous Approach (ICD-10-PCS; principal; 2019-12-28)
PROC: 3E033GC Introduction of Other Therapeutic Substance into Peripheral Vein, Percutaneous Approach (ICD-10-PCS; 2019-12-28)
DX: R10.9 Unspecified abdominal pain (principal); I12.0 Hypertensive chronic kidney disease with stage 5 chronic kidney disease or end stage renal disease; N18.6 End stage renal disease; N17.8 Other acute kidney failure; Z99.2 Dependence on renal dialysis; J45.909 Unspecified asthma, uncomplicated; K21.9 Gastro-esophageal reflux disease without esophagitis; Z87.891 Personal history of nicotine dependence
CPT/HCPCS: 36415; 76705-TC; 80053; 82550; 82553; 83690; 84484; 85025; 93005; 93010; 96365; 96375; 99284-25

== ENCOUNTER 2020-07-06 14:47 | Emergency (ER) | payer OTHER ==
[2020-07-06 15:10] VITALS: BP 152/93; PULSE 66; TEMP 97.8; BMI 26.0
--- NOTE | 2020-07-06 15:24 | PDOC ---
History of Present Illness - General Chief Complaint: Edema Stated Complaint: SWOLLEN FACE Time Seen by Provider: 07/06/20 15:24 History Source: Patient Exam Limitations: No Limitations - History of Present Illness Initial Comments: 07/06/20 15:26 60yM w PMHx ESRD on HD (//), HTN, asthma, and GERD presenting w 1d mild facial swelling. Completed dialysis today. Didn't take any meds for swelling, no known allergies. Denies difficulty breathing/eating, fever, headache, n/v, cough, visual changes, extremity swelling. Was evaluated for facial swelling in Aug 2019 and 01/1620 which resolved in ED, f/u w Dr Forrester Past History - Medical History Allergies/Adverse Reactions: Allergies Allergy/AdvReac Type Severity Reaction Status Date / Time No Known Allergies Allergy Verified 07/06/20 15:10 Home Medications: Ambulatory Orders Lisinopril [Prinivil] 20 mg PO DAILY 04/29/19 Metoprolol Tartrate [Lopressor -] 25 mg PO BID 04/29/19 Famotidine [Acid Controller] 20 mg PO DAILY #30 tablet 12/17/19 Anemia: No Asthma: Yes (childhood) Cancer: No Cardiac Disorders: Yes (sob d/t facial swelling) CVA: No COPD: No CHF: No DVT: No Dementia: No Diabetes: No Dialysis: Yes GI Disorders: No Disorders: No HTN: Yes Hypercholesterolemia: No Liver Disease: No Seizures: No Thyroid Disease: No - Surgical History Abdominal Surgery: No Appendectomy: No Cardiac Surgery: No Cholecystectomy: No Lung Surgery: No Neurologic Surgery: No Orthopedic Surgery: No - Immunization History Immunization Up to Date: Yes - Psycho-Social/Smoking History Smoking History: Former smoker Have you smoked in the past 12 months: No Number of Cigarettes Smoked Daily: 0.5 If you are a former smoker, when did you quit?: 7 YRS AGO Information on smoking cessation initiated: No 'Breaking Loose' booklet given: 08/21/19 - Substance Abuse Hx (Audit-C & DAST Scrn) How often the patient has a drink containing alcohol: Never Score: In Men: 4 or > Positive; In Women: 3 or > Positive: 0 Screen Result (Pos requires Nsg. Audit-10AR): Negative In the last yr the pt used illegal drug/Rx for NonMed reason: No Score: Yes response is considered Positive: 0 Screen Result (Positive result requires Nsg. DAST-10): Negative Review of Systems - Review of Systems Constitutional: No: Chills, Fever HEENTM: No: Eye Pain, Nose Pain Respiratory: No: Cough, Shortness of Breath Cardiac (ROS): No: Chest Pain, Palpitations ABD/GI: No: Constipated, Diarrhea : No: Burning, Dysuria Musculoskeletal: No: Back Pain, Joint Pain Integumentary: No: Bruising, Flushing Neurological: No: Headache, Seizure Psychiatric: No: Anxiety, Depression Endocrine: No: Intolerance to Cold, Intolerance to Heat Hematologic/Lymphatic: No: Anemia, Blood Clots *Physical Exam - Vital Signs Last Vital Signs Temp Pulse Resp BP Pulse Ox 97.8 F 66 17 152/93 100 07/06/20 15:07 07/06/20 15:07 07/06/20 15:07 07/06/20 15:07 07/06/20 15:07 - Physical Exam General Appearance: Yes: Nourished, Appropriately Dressed. No: Apparent Distress HEENT: positive: EOMI, SHILA, Normal Voice, Pharynx Normal, Hearing Grossly Normal, Other (mild facial swelling, no tongue/palate swelling, clear oropharynx). negative: Scleral Icterus (R), Scleral Icterus (L), Pharyngeal Erythema, Tonsillar Exudate, Tonsillar Erythema, Rhinorrhea Neck: positive: Supple. negative: Tender, Rigid Respiratory/Chest: positive: Lungs Clear, Normal Breath Sounds. negative: Chest Tender, Respiratory Distress Cardiovascular: positive: Regular Rhythm, Regular Rate, S1, S2. negative: Edema, Murmur Gastrointestinal/Abdominal: positive: Normal Bowel Sounds, Flat, Soft. negative: Tender, Organomegaly Extremity: negative: Pedal Edema Integumentary: positive: Normal Color, Warm. negative: Dry Neurologic: positive: Fully Oriented, Alert, Normal Mood/Affect, Normal Response, Responsive Medical Decision Making - Medical Decision Making 07/06/20 15:42 60yM w PMHx ESRD on HD (//), HTN, asthma, and GERD presenting w 1d mild facial swelling. Vitals stable, no respiratory compromise, able to tolerate PO. 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
--- NOTE | 2020-07-06 16:46 | PDOC ---
Attending Attestation - Resident Resident Name: Arnel Lacey - ED Attending Attestation I have performed the following: I have examined & evaluated the patient, The case was reviewed & discussed with the resident, I agree w/resident's findings & plan - HPI HPI: 07/06/20 16:46 60yM w PMHx ESRD on HD (//), HTN, asthma, and GERD presenting w 1d mild facial swelling. Completed dialysis today. Didn't take any meds for swelling, no known allergies. Denies difficulty breathing/eating, fever, headache, n/v, cough, visual changes, extremity swelling. Was evaluated for facial swelling in Aug 2019 and 01/1620 which resolved in ED, f/u w Dr Forrester - Physicial Exam PE: 07/06/20 16:46 agree with resident PE as documented - Medical Decision Making 07/06/20 16:46 Vital Signs Temp Pulse Resp BP Pulse Ox 97.8 F 66 17 152/93 100 07/06/20 15:07 07/06/20 15:07 07/06/20 15:07 07/06/20 15:07 07/06/20 15:07 vitals reviewed, wnl airway intact, breathing fine. no respiratory distress Not angioedema (not allergic rxn) vs Leonard (no neck swelling) no infectious sx baseline has facial swellling, with prior ed visits, related to svc syndrome. 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
== END 2020-07-06 16:14 | disposition home or self-care (01) ==
LOC: JER 14:47
DX: R22.0 Localized swelling, mass and lump, head (principal)
CPT/HCPCS: 99282-25

== ENCOUNTER 2020-09-19 14:18 | Emergency (ER) | payer OTHER ==
[2020-09-19 14:48] VITALS: TEMP 97.6; BMI 27.6
--- OUTSIDE RECORDS SUMMARY | 2020-09-19 14:54 | XMS ---
:1960 Author Organization [facility] Care Team Providers Name Role Phone ED STAFF PHYSICIAN Unavailable Unavailable Re-disclosure Warning The records that you are about to access may contain information from federally- assisted alcohol or drug abuse programs. If such information is present, then the following federally mandated warning applies: This information has been disclosed to you from records protected by federal confidentiality rules (42 CFR part 2). The federal rules prohibit you from making any further disclosure of this information unless further disclosure is expressly permitted by the written consent of the person to whom it pertains or as otherwise permitted by 42 CFR part 2. A general authorization for the release of medical or other information is NOT sufficient for this purpose. The Federal rules restrict any use of the information to criminally investigate or prosecute any alcohol or drug abuse patient.The records that you are about to access may contain highly sensitive health information, the redisclosure of which is protected by Article 27-F of the [place] State Public Health law. If you continue you may haveaccess to information: Regarding HIV / AIDS; Provided by facilities licensed or operated by the [facility] Office of Mental Health; or Provided by the [facility] Office for People With Developmental Disabilities. If such information is present, then the following [facility] mandated warning applies: This information has been disclosed to you from confidential records which are protected by state law. State law prohibits you from making any further disclosure of this information without the specific written consent of the person to whom it pertains, or as otherwise permitted by law. Any unauthorized further disclosure in violation of state law may result in a fine or usp sentence or both. A general authorization for the release of medical or other information is NOT sufficient authorization for further disclosure. Encounters Encounter Providers Location Date Indications Data Source(s ) Emergency Attender: STAFF ED H 12/28/2019 [facility] STAFF PHYSICIAN 04:11:00 AM EST [facility] - 12/28/2019 09:05:00 AM EST Patient discharged. Insurance Providers Payer name Policy type Policy ID Covered Covered green party's Policy P amadou / Coverage green party ID relationship to Oneill Inf ormation type oneill MEDICAID [id number] SP [id number] MEDICARE [id number] SP [id number] MEDICARE [id number] SP [id number] A MEDICAID [id number] SP [id number] MEDICARE [id number] SP [id number] MEDICARE [id number] SP [id number] [id number] MEDICAID [id number] SP [id number] Medicaid Medicaid [id number] Problems, Conditions, and Diagnoses Code Display Name Description Problem Type Effective Data Sour ce(s) Dates F17.210 Nicotine NICOTINE Diagnosis 12/28/2019 [facility] dependence, DEPENDENCE, 04:11:[address] cigarettes, CIGARETTES, EST uncomplicated UNCOMPLICATED I10 Essential ESSENTIAL Diagnosis 12/28/2019 [facility] (primary) (PRIMARY) 04:11:00 [facility] hypertension HYPERTENSION EST N18.6 End stage renal END STAGE RENAL Diagnosis 12/28/2019 [facility]na t Randy disease DISEASE 04:11:00 AM [facility] EST M79.18 MYALGIA, OTHER MYALGIA, OTHER Diagnosis 12/28/2019 [facility] SITE SITE 04:11:00 AM Medical Cent[facility] EST R25.2 Cramp and spasm CRAMP AND SPASM Diagnosis 12/28/2019 Bhavna Padilla 04:11:00 AM [facility] EST Results ID Date Data Source [id number] 08/21/2020 02:16:00 PM EDT [facility] Name Value Range Interpretation Description Data Sup porting Code Source(s) Document(s ) SARS [facility] coronavirus 2 RNA This lab was ordered by Chica jaeger/Altaf and reported by [facility]. Procedure Social History Code Duration Value Status Description Data Source(s ) Smoking 12/28/2019 04:20:00 Daily Smoker completed Daily Smoker S [facility] Smoking 12/28/2019 04:15:00 Daily Smoker completed Daily Smoker S [facility] Vital Signs ID Date Data Source UNK Name Value Range Interpretation Code Description Data Source(s) Body temperature 36.211947 36.933184 [facility] Respiratory rate 18 /min 18 /min [facility] Oxygen saturation 97 % 97 % [facility] Arterial blood [facility] by Pulse oximetry Heart rate 68 /min 68 /min [facility] Diastolic blood 78 mm[Hg] 78 mm[Hg] [facility] Systolic blood 134 mm[Hg] 134 mm[Hg] [facility] Body weight 73.746030 kg 73.389061 kg [facility] Body temperature 36.938569 36.351159 [facility] Respiratory rate 18 /min 18 /min [facility] Oxygen saturation 95 % 95 % [facility] by Pulse oximetry Heart rate 72 /min 72 /min [facility] Diastolic blood 89 mm[Hg] 89 mm[Hg] [facility] Systolic blood 148 mm[Hg] 148 mm[Hg] [facility]
--- NOTE | 2020-09-19 14:56 | PDOC ---
History of Present Illness - General Chief Complaint: Edema Stated Complaint: SWOLLEN FACE Time Seen by Provider: 09/19/20 14:55 - History of Present Illness Initial Comments: 09/19/20 15:35 60yo M PMHx ESRD on HD reportedly sent here by [facility] after his treatment for recurrence of and worsening neck edema. He states this episode started 7wks ago and has been getting worse. He does not know the cause. His chart reflects an Rx for lisinopril, but a call to his pharmacy showed that they have not dispensed the medicine, and the pt denies taking it. He endoreses taking metoprolol and amlodipine only. Location: submental area mostly, with edema spreading to the buccal regions b/l. it is symmetric. Duration: worsening Past History - Medical History Allergies/Adverse Reactions: Allergies Allergy/AdvReac Type Severity Reaction Status Date / Time No Known Allergies Allergy Verified 09/19/20 14:23 Home Medications: Ambulatory Orders Metoprolol Tartrate [Lopressor -] 25 mg PO BID 04/29/19 Amlodipine Besylate 10 mg PO DAILY 09/19/20 Calcium Acetate [Phoslo -] 1,334 mg PO TID 09/19/20 Anemia: No Asthma: Yes (childhood) Cancer: No Cardiac Disorders: Yes (sob d/t facial swelling) CVA: No COPD: No CHF: No DVT: No Dementia: No Diabetes: No Dialysis: Yes (//fri) GI Disorders: No Disorders: No HTN: Yes Hypercholesterolemia: No Liver Disease: No Seizures: No Thyroid Disease: No - Surgical History Abdominal Surgery: No Appendectomy: No Cardiac Surgery: No Cholecystectomy: No Lung Surgery: No Neurologic Surgery: No Orthopedic Surgery: No - Immunization History Immunization Up to Date: Yes - Psycho-Social/Smoking History Smoking History: Former smoker Have you smoked in the past 12 months: No Number of Cigarettes Smoked Daily: 0 If you are a former smoker, when did you quit?: 7 YRS AGO Information on smoking cessation initiated: No 'Breaking Loose' booklet given: 08/21/19 - Substance Abuse Hx (Audit-C & DAST Scrn) How often the patient has a drink containing alcohol: Never Score: In Men: 4 or > Positive; In Women: 3 or > Positive: 0 Screen Result (Pos requires Nsg. Audit-10AR): Negative In the last yr the pt used illegal drug/Rx for NonMed reason: No Score: Yes response is considered Positive: 0 Screen Result (Positive result requires Nsg. DAST-10): Negative Review of Systems - Review of Systems Able to Perform ROS?: Yes Is the patient limited Trinidadian proficient: Yes Constitutional: No: Chills, Diaphoresis, Fever HEENTM: Yes: Recent change in vision (this morning the face was so edematous the fluid was affecting his vision) Respiratory: Yes: Wheezing. No: Cough, Productive cough, Hemoptysis Cardiac (ROS): Yes: Edema. No: Chest Pain, Lightheadedness, Palpitations, Sync ope, Chest Tightness ABD/GI: No: Symptoms Reported, Constipated, Diarrhea, Nausea : No: Burning, Dysuria, Discharge Musculoskeletal: No: Back Pain Integumentary: Yes: Dryness. No: Change in Color, Rash Neurological: No: Headache, Weakness Endocrine: No: Symptoms Reported Hematologic/Lymphatic: No: Symptoms Reported All Other Systems: Reviewed and Negative *Physical Exam - Vital Signs Last Vital Signs Temp Pulse Resp BP Pulse Ox 97.6 F 67 18 172/107 H 100 09/19/20 14:25 09/19/20 14:25 09/19/20 14:25 09/19/20 14:25 09/19/20 14:25 - Physical Exam General Appearance: Yes: Nourished, Appropriately Dressed HEENT: positive: EOMI, SHLIA, Scleral Icterus (R), Scleral Icterus (L) Neck: positive: Supple. negative: Tender Respiratory/Chest: positive: Wheezing. negative: Chest Tender, Lungs Clear Cardiovascular: positive: Regular Rhythm, Regular Rate Gastrointestinal/Abdominal: positive: Normal Bowel Sounds, Soft Musculoskeletal: positive: Normal Inspection. negative: CVA Tenderness Extremity: positive: Normal Capillary Refill Integumentary: positive: Normal Color, Dry, Warm Neurologic: positive: Fully Oriented, Alert, Normal Response ED Treatment Course - LABORATORY CBC & Chemistry Diagram: 09/19/20 15:50 09/19/20 15:50 Medical Decision Making - Medical Decision Making 09/19/20 16:22 60yo M w/ esrd presents with recurrent face and neck swelling. Spoke with Dr. Ramos - pt was swollen to the point of obstructing vision this AM. He received full dialysis tx today. Pt still had swelling so was sent here for repeat venoplasty by Dr. Sage. Spoke with Dr. Sage - since pt denies respiratory sx and is SpO2 99% on room air, pt can be d/c with follow up in Alona's office on 09/21 or 09/22. Discharge - Discharge Information Problems reviewed: Yes Clinical Impression/Diagnosis: Facial edema, SVC syndrome - Admission No - Follow up/Referral Referrals: Charlie Bates MD [Staff Physician] - [facility] [Provider Group] - Patient Discharge Instructions Patient Printed Discharge Instructions: DI for Peripheral Vascular Stent Additional Instructions: You were seen in the ED for face and neck swelling. Per Dr. Bates, you may go home and follow up with him in his office on (09/21) or Friday (09/22). You must call his office tomorrow and make an appointment for one of those two days. Follow up with the [facility] within 2 days of leaving the ED. They are a primary care center, and you can establish medical care there. Come back to the ED if you develop any difficulty breathing, swallowing, chest pain, or any other severe symptom. - Post Discharge Activity
--- NOTE | 2020-09-19 16:16 | PDOC ---
Documentation entered by Martir Mooney SCRIBE, acting as scribe for Denisse Lundberg MD. Denisse Lundberg MD: This documentation has been prepared by the felixibe, Martir Mooney SCRIBE, under my direction and personally reviewed by me in its entirety. I confirm that the documentation accurately reflects all work, treatment, procedures, and medical decision making performed by me. Attending Attestation - Resident Resident Name: Hank Gresham - ED Attending Attestation I have performed the following: I have examined & evaluated the patient, The case was reviewed & discussed with the resident, I agree w/resident's findings & plan, Exceptions are as noted - HPI HPI: 09/19/20 15:22 The patient is a 60 year old male with a significant past medical history of ESRD (on HD /; last: today), HTN, asthma, and GERD who presents to the emergency department, sent from dialysis, for evaluation of progressive lower facial and anterior neck edema that began two months ago. The patient denies pain, vocal changes, or known triggers. The patient denies chest/abdominal/back pain, cough, and shortness of breath. Denies fever, chills, nausea, vomiting, and/or any GI symptoms. Denies any symptoms. Denies any other symptoms. Allergies: NKDA Social Hx: The patient reports he quit smoking seven years ago. Denies alcohol consumption or other substance usage. Surgical Hx: None reported - Physicial Exam PE: 09/19/20 15:00 GENERAL: nontoxic-appearing, A/Ox4, no distress, answers questions appropriately HEENT: +facial edema, PERRLA, EOMI, moist mucous membranes NECK/BACK: no midline ttp, no spinal stepoff or deformity, no hematoma, full ROM, neck supple CARDIOVASCULAR: regular rate/rhythm, no MGR, strong peripheral pulses, capillary refill <2 seconds, extremities wwp, AV fistula with good bruit and thrill LUNGS/RESPIRATORY: no respiratory distress, CTAB GI/ABDOMEN: symmetric [id number], normoactive BS, soft, no ttp, no midline pulsatile masses : no CVA tenderness MSK/EXTREMITIES: no muscle atrophy, no acute deformity SKIN: warm and dry, no pallor, no jaundice, no rash, no pathologic-appearing bruising, no skin breakdown, no cuts, no lesions NEUROLOGICAL: GCS 15, CN II-XII grossly intact, 5/5 strength proximally and distally, no facial droop - Medical Decision Making 09/19/20 16:07 [id number] with h/o ESRD on HD T//Sat with last today which was normal tx for him, SVC syndrome s/p surgical repair, HTN, asthma, and GERD, who p/w worsened chronic facial edema reporting he was sent in by Dr. Ramos because he was so swollen he could not see out of one of his eyes, even after full HD treatment. Planning for admission and eval for repeat venoplasty. Initial Vital Signs Temp Pulse Resp BP Pulse Ox 97.6 F 67 18 172/107 H 100 09/19/20 14:25 09/19/20 14:25 09/19/20 14:25 09/19/20 14:25 09/19/20 14:25 Most likely acute on chronic vascular issue/SVC syndrome. Possible venous thromboembolism. Less likely CHF. Possible contributing hypoalbuminemia. Provider Orders Category Date Time Status EKG [ELECTROCARDIOGRAM] [CARD] Stat Cardiology 09/19/20 15:38 Completed EKG needed NOW Care 09/19/20 15:38 Completed Isolation Precautions As directed Care 09/19/20 15:38 Active Renal Diet [DT] Diet 09/19/20 Dinner Completed CBC WITH DIFFERENTIAL Stat Lab 09/19/20 15:50 Completed CMP [COMP METABOLIC PANEL] Stat Lab 09/19/20 15:50 Completed COVID-19 Stat Lab 09/19/20 15:50 Completed PT & APTT Stat Lab 09/19/20 15:50 Completed Acetaminophen Injection [Ofirmev Injection -] Medication 09/19/20 17:29 Discontinued 1,000 mg IVPB ONCE ONE Medications Discontinued Medications Generic Name Dose Route Start Last Admin Trade Name Freq PRN Reason Stop Dose Admin Acetaminophen 1,000 mg 09/19/20 17:29 09/19/20 17:36 Ofirmev Injection - IVPB 09/19/20 17:30 Not Given ONCE ONE Lab Results WBC 5.5 K/mm3 (4.0-10.0) 09/19/20 15:50 RBC 3.53 M/mm3 (4.00-5.60) L 09/19/20 15:50 Hgb 10.0 GM/dL (11.7-16.9) L 09/19/20 15:50 Hct 30.3 % (35.4-49) L 09/19/20 15:50 MCV 85.9 fl (80-96) 09/19/20 15:50 MCH 28.3 pg (25.7-33.7) 09/19/20 15:50 MCHC 32.9 g/dl (32.0-35.9) 09/19/20 15:50 RDW 16.2 % (11.9-15.9) H 09/19/20 15:50 Plt Count 205 K/MM3 (134-434) 09/19/20 15:50 MPV 8.0 fl (7.5-11.1) 09/19/20 15:50 Absolute Neuts (auto) 2.6 K/mm3 (1.5-8.0) 09/19/20 15:50 Neutrophils % 46.3 % (42.8-82.8) D 09/19/20 15:50 Lymphocytes % 24.6 % (8-40) 09/19/20 15:50 Monocytes % 11.0 % (3.8-10.2) H 09/19/20 15:50 Eosinophils % 16.7 % (0-4.5) H D 09/19/20 15:50 Basophils % 1.4 % (0-2.0) 09/19/20 15:50 Nucleated RBC % 0 % (0-0) 09/19/20 15:50 PT with INR 12.30 SEC (9.7-13.0) 09/19/20 15:50 INR 1.00 (0.83-1.09) 09/19/20 15:50 PTT (Actin FS) 35.5 SECONDS (25.2-36.5) 09/19/20 15:50 Sodium 138 mmol/L (136-145) 09/19/20 15:50 Potassium 4.2 mmol/L (3.5-5.1) 09/19/20 15:50 Chloride 102 mmol/L (98-107) 09/19/20 15:50 Carbon Dioxide 28 mmol/L (21-32) 09/19/20 15:50 Anion Gap 8 MMOL/L (8-16) 09/19/20 15:50 BUN 25.0 mg/dL (7-18) H 09/19/20 15:50 Creatinine 6.4 mg/dL (0.55-1.3) H 09/19/20 15:50 Est GFR (CKD-EPI)AfAm 10.15 09/19/20 15:50 Est GFR (CKD-EPI)NonAf 8.76 09/19/20 15:50 Random Glucose 125 mg/dL (74-106) H 09/19/20 15:50 Calcium 8.2 mg/dL (8.5-10.1) L 09/19/20 15:50 Total Bilirubin 0.4 mg/dL (0.2-1) 09/19/20 15:50 AST 47 U/L (15-37) H 09/19/20 15:50 ALT 34 U/L (13-61) 09/19/20 15:50 Alkaline Phosphatase 62 U/L (45-117) 09/19/20 15:50 Total Protein 6.3 g/dl (6.4-8.2) L 09/19/20 15:50 Albumin 3.1 g/dl (3.4-5.0) L 09/19/20 15:50 COVID-19 ([facility]) Not detected (Not Detected) 09/19/20 15:50 Blood Type Cancelled 09/19/20 15:50 Antibody Screen Cancelled 09/19/20 15:50 We have spoken with Drs. Ramos and Jana, patient will f/u in Dr. Bates's office or Friday. All on board with this plan including the patient. He is appropriate for DC home with close outpatient f/u. Return precautions discussed. Last Vital Signs Temp Pulse Resp BP Pulse Ox 97.6 F 70 20 155/79 100 09/19/20 14:25 09/19/20 17:30 09/19/20 17:30 09/19/20 17:30 09/19/20 17:30 Heart Score/ECG Review #1 Sinus rhythm, rate 76, normal axis and intervals, wandering baseline but no acute ischemic ST-T changes Discharge - Discharge Information Problems reviewed: Yes Clinical Impression/Diagnosis: Facial edema, SVC syndrome Condition: Stable Disposition: HOME - Admission No - Follow up/Referral Referrals: [facility] [place] [Provider Group] Charlie Bates MD [Staff Physician] - - Patient Discharge Instructions Patient Printed Discharge Instructions: DI for Peripheral Vascular Stent Additional Instructions: You were seen in the ED for face and neck swelling. Per Dr. Bates, you may go home and follow up with him in his office on (09/21) or Friday (09/22). You must call his office tomorrow and make an appointment for one of those two days. Follow up with the [facility] within 2 days of leaving the ED. They are a primary care center, and you can establish medical care there. Come back to the ED if you develop any difficulty breathing, swallowing, chest pain, or any other severe symptom. - Post Discharge Activity
[2020-09-19 16:18] LABS: BASO % 1.4 % (0-2.0); EOS % 16.7 % (0-4.5); HEMATOCRIT 30.3 % (35.4-49); LYMPH % 24.6 % (8-40); MCH 28.3 pg (25.7-33.7); MCHC 32.9 g/dl (32.0-35.9); MEAN CELL VOLUME 85.9 fl (80-96); NEUT % 46.3 % (42.8-82.8); PLATELET COUNT 205 K/MM3 (134-434); RBC 3.53 M/mm3 (4.00-5.60); RDW 16.2 % (11.9-15.9); WHITE BLOOD COUNT 5.5 K/mm3 (4.0-10.0)
[2020-09-19 16:42] LABS: POTASSIUM 4.2 mmol/L (3.5-5.1)
[2020-09-19 16:43] LABS: CALCIUM 8.2 mg/dL (8.5-10.1)
[2020-09-19 16:44] LABS: ALBUMIN 3.1 g/dl (3.4-5.0)
[2020-09-19 16:48] LABS: CREATININE 6.4 mg/dL (0.55-1.3)
[2020-09-19 16:49] LABS: BILIRUBIN,TOTAL 0.4 mg/dL (0.2-1); TOT PROT 6.3 g/dl (6.4-8.2)
[2020-09-19 17:03] LABS: PROTHROMBIN TIME (PATIENT) 12.3 SEC (9.7-13.0)
[2020-09-19 17:06] LABS: ACTIVATED PTT 35.5 SECONDS (25.2-36.5)
[2020-09-19] MEDS ORDERED: ACETAMINOPHEN 1000 MG/100 ML VIAL (NON FORMULARY) IVPB ONE (17:29)
[2020-09-19 18:10] VITALS: BP 155/79; PULSE 70
--- NOTE | 2020-09-20 12:53 | EKG ---
Test Reason : Blood Pressure : / mmHG Vent. Rate : 076 BPM Atrial Rate : 076 BPM P-R Int : 174 ms QRS Dur : 072 ms QT Int : 400 ms P-R-T Axes : 077 -02 064 degrees QTc Int : 450 ms NORMAL SINUS RHYTHM ANTEROSEPTAL INFARCT (CITED ON OR BEFORE 29-DEC-2019) ABNORMAL ECG WHEN COMPARED WITH ECG OF 29-DEC-2019 04:00, QUESTIONABLE CHANGE IN INITIAL FORCES OF ANTERIOR LEADS QT HAS LENGTHENED Confirmed by MD WATSON, CHUCHO ([id number]) on 09/20/2020 12:53:24 PM Referred By: Confirmed By:CHUCHO CHAUDHARI MD
== END 2020-09-19 17:45 | disposition home or self-care (01) ==
LOC: JER 14:18
DX: R60.9 Edema, unspecified (principal); I87.1 Compression of vein
CPT/HCPCS: 36415; 80053; 85025; 85610; 85730; 93005; 93010; 99285-25; C9803; U0003

== ENCOUNTER 2020-11-22 15:11 | Emergency (ER) | payer OTHER ==
[2020-11-22 15:26] VITALS: BP 189/100; PULSE 69; TEMP 98.2; BMI 26.4
== END 2020-11-22 16:18 | disposition home or self-care (01) ==
LOC: JER 15:11
DX: R60.9 Edema, unspecified (principal)
CPT/HCPCS: 99281-25

== ENCOUNTER 2021-02-26 20:30 | Inpatient (IN) | payer OTHER ==
[2021-02-26 20:39] VITALS: BMI 25.1
[2021-02-26] MEDS ORDERED: SODIUM CHLORIDE 0.9% 500 ML INFUS.BAG IV ONE (20:52)
[2021-02-26] MEDS ORDERED: ONDANSETRON 4 MG/2 ML VIAL IVPUSH ONE (20:52)
[2021-02-26] MEDS ORDERED: FAMOTIDINE 20 MG/50 ML IVPB 20 MG/50 ML MG IVPB ONE ×2 (20:52→21:04)
[2021-02-26] MEDS ORDERED: ACETAMINOPHEN 1000 MG/100 ML VIAL (NON FORMULARY) IVPB ONE (20:52)
[2021-02-26] MEDS ORDERED: ONDANSETRON 4 MG/2 ML VIAL ONE (21:04)
[2021-02-26] MEDS ORDERED: ACETAMINOPHEN INJECTION 100 ML IVPB ONE (21:04)
[2021-02-26] MEDS ORDERED: metoPROLOL SUCCINATE 25 MG TAB.SR.24H (FP) PO ONE (21:07)
[2021-02-26] MEDS ORDERED: amLODIPine BESYLATE 10 MG TABLET (FP) PO ONE (21:07)
[2021-02-26] MEDS ORDERED: amLODIPine BESYLATE 5 MG TABLET (FP) ONE (21:13)
[2021-02-26] MEDS ORDERED: metoPROLOL SUCCINATE 25 MG TAB.SR.24H (FP) ONE (21:14)
[2021-02-26 22:10] LABS: BASO % 0.9 % (0-2.0); EOS % 11.6 % (0-4.5); HEMATOCRIT 29.8 % (35.4-49); HEMOGLOBIN 9.8 GM/dL (11.7-16.9); LYMPH % 28.9 % (8-40); MCHC 32.8 g/dl (32.0-35.9); MEAN CELL VOLUME 85.3 fl (80-96); MEAN PLT VOLUME 8.7 fl (7.5-11.1); MONO % 7.6 % (3.8-10.2); PLATELET COUNT 207 K/MM3 (134-434); RDW 18.2 % (11.9-15.9); WHITE BLOOD COUNT 5.3 K/mm3 (4.0-10.0)
[2021-02-26 22:16] LABS: INR 1.03 (0.83-1.09); PROTHROMBIN TIME (PATIENT) 12.6 SEC (9.7-13.0)
[2021-02-26 22:19] LABS: ACTIVATED PTT 37.3 SECONDS (25.2-36.5)
[2021-02-26 22:20] LABS: CHLORIDE 103 mmol/L (98-107); SODIUM 143 mmol/L (136-145)
[2021-02-26 22:27] LABS: ALBUMIN 3.5 g/dl (3.4-5.0); ANION GAP 8 MMOL/L (8-16); CALCIUM 9.3 mg/dL (8.5-10.1); CO2 32 mmol/L (21-32); GLUCOSE,RANDOM 75 mg/dL (74-106); LIPASE 508 U/L (73-393); SGPT/ALT 191 U/L (13-61)
[2021-02-26 22:28] LABS: ALK PHOS 103 U/L (45-117); BILIRUBIN,DIRECT 0.1 mg/dL (0.0-0.2); BILIRUBIN,TOTAL 0.5 mg/dL (0.2-1); LDH 432 U/L (87-246); MAGNESIUM 2.9 mg/dL (1.8-2.4); SGOT/AST 171 U/L (15-37); TOT PROT 7.2 g/dl (6.4-8.2)
[2021-02-26 22:29] LABS: PHOSPHOROUS 3.5 mg/dL (2.5-4.9)
[2021-02-26] MEDS ORDERED: ALBUTEROL SO4 2.5/IPRATROPIUM 0.5 INH SOL 3 ML VIAL.NEB. NEB ONE (22:43)
[2021-02-26] MEDS: ALBUTEROL SO4 2.5/IPRATROPIUM 0.5 INH SOL 3 ML VIAL.NEB. NEB SCH ×2 (22:46→23:03)
[2021-02-26 23:20] LABS: CHLORIDE 103 mmol/L (98-107); SODIUM 142 mmol/L (136-145)
[2021-02-26 23:22] LABS: CALCIUM 9.4 mg/dL (8.5-10.1)
[2021-02-26 23:23] LABS: ALBUMIN 3.3 g/dl (3.4-5.0); BLOOD UREA NITROGEN 81.6 mg/dL (7-18); CO2 32 mmol/L (21-32); GLUCOSE,RANDOM 83 mg/dL (74-106); MAGNESIUM 2.8 mg/dL (1.8-2.4)
[2021-02-26 23:26] LABS: PHOSPHOROUS 3.4 mg/dL (2.5-4.9); SGOT/AST 137 U/L (15-37); SGPT/ALT 171 U/L (13-61)
[2021-02-26 23:27] LABS: BILIRUBIN,TOTAL 0.4 mg/dL (0.2-1); LDH 284 U/L (87-246)
[2021-02-26 23:28] LABS: TOT PROT 6.5 g/dl (6.4-8.2)
[2021-02-26 23:29] LABS: ALK PHOS 94 U/L (45-117)
[2021-02-26 23:50] LABS: ANION GAP 7 MMOL/L (8-16); CREATININE 12.6 mg/dL (0.55-1.3); POTASSIUM 6.2 mmol/L (3.5-5.1)
[2021-02-26] MEDS ORDERED: DEXTROSE 50%-WATER - 25 GM/50 ML VIAL IVPUSH ONE (23:54)
[2021-02-26] MEDS ORDERED: CALCIUM GLUCONATE 10% - 1,000 MG/10 ML VIAL IVPUSH ONE (23:54)
[2021-02-26] MEDS ORDERED: INSULIN REGULAR HUMAN 100 UNITS/ML *VIAL IVPUSH ONE (23:54)
[2021-02-27] MEDS ORDERED: DEXTROSE 50%-WATER 25 GM/50 ML DISP.SYRIN ONE (00:28)
[2021-02-27] MEDS ORDERED: CALCIUM GLUC IN NACL, ISO-OSM 1 GM/50 ML BAG IVPB ONE (00:29)
[2021-02-27] MEDS ORDERED: SODIUM ZIRCONIUM CYCLOSILICATE (LOKELMA) 5 GM PACKET PO SCH (02:05)
[2021-02-27] MEDS ORDERED: SODIUM ZIRCONIUM CYCLOSILICATE (LOKELMA) 5 GM PACKET PO ONE (02:27)
[2021-02-27] MEDS ORDERED: ALBUTEROL SO4 2.5/IPRATROPIUM 0.5 INH SOL 3 ML VIAL.NEB. NEB PRN (02:28)
[2021-02-27 02:38] LABS: ARTERIAL BLD GAS O2 SATURATION 90.7 mmHg (95-98); ARTERIAL BLOOD GAS BASE EXCESS 0.7 mmol/L (-2-2); ARTERIAL BLOOD GAS PO2 63.9 mmHg (80-100); ARTERIAL BLOOD GAS pH 7.333 (7.350-7.450)
[2021-02-27 02:39] LABS: ALLENS TEST POSITIVE
[2021-02-27] MEDS ORDERED: HYDROmorphone HCl 2 MG/ML VIAL ONE (03:07)
[2021-02-27] MEDS ORDERED: SODIUM ZIRCONIUM CYCLOSILICATE (LOKELMA) 5 GM PACKET ONE (03:32)
[2021-02-27] MEDS ORDERED: HEPARIN NA (PORCINE) 5,000 UNITS/ML 1ML VIAL ONE (03:32)
[2021-02-27] MEDS: HEPARIN NA (PORCINE) 5,000 UNITS/ML 1ML VIAL SQ SCH ×3 (03:42→18:37)
[2021-02-27] MEDS ORDERED: hydrALAZINE HCL 50 MG TABLET (FP) PO SCH ×2 (06:00)
[2021-02-27] MEDS: hydrALAZINE HCL 50 MG TABLET (FP) PO SCH ×3 (06:12→21:07)
[2021-02-27] MEDS ORDERED: SODIUM CHLORIDE 250 ML IV PRN (06:57)
[2021-02-27] MEDS: DOCUSATE SODIUM 100 MG CAPSULE (FP) PO SCH (10:00)
[2021-02-27] MEDS ORDERED: EPOETIN ALFA-EPBX 4,000 UNIT/ML VIAL IVPUSH ONE (10:00)
[2021-02-27] MEDS ORDERED: HEPARIN NA (PORCINE) 5,000 UNITS/ML 1ML VIAL IVPUSH ONE (10:15)
[2021-02-27 11:11] LABS: HEMATOCRIT 30.3 % (35.4-49); HEMOGLOBIN 10.1 GM/dL (11.7-16.9); MCH 27.9 pg (25.7-33.7); MCHC 33.3 g/dl (32.0-35.9); MEAN CELL VOLUME 83.9 fl (80-96); MEAN PLT VOLUME 8.2 fl (7.5-11.1); PLATELET COUNT 207 K/MM3 (134-434); RBC 3.61 M/mm3 (4.00-5.60); WHITE BLOOD COUNT 5.8 K/mm3 (4.0-10.0)
[2021-02-27 11:47] LABS: CHLORIDE 102 mmol/L (98-107); POTASSIUM 5.4 mmol/L (3.5-5.1); SODIUM 139 mmol/L (136-145)
[2021-02-27 11:58] LABS: CALCIUM 9.2 mg/dL (8.5-10.1)
[2021-02-27 11:59] LABS: ALBUMIN 3.3 g/dl (3.4-5.0); ANION GAP 10 MMOL/L (8-16); CO2 28 mmol/L (21-32); GLUCOSE,RANDOM 84 mg/dL (74-106); MAGNESIUM 2.7 mg/dL (1.8-2.4)
[2021-02-27 12:00] LABS: IRON SERUM 86 ug/dL (50-175)
[2021-02-27 12:01] LABS: PHOSPHOROUS 4.4 mg/dL (2.5-4.9); TOTAL IRON BINDING CAPACITY 179 ug/dL (250-450)
[2021-02-27 12:02] LABS: SGOT/AST 80 U/L (15-37); SGPT/ALT 129 U/L (13-61)
[2021-02-27 12:03] LABS: BILIRUBIN,TOTAL 0.5 mg/dL (0.2-1); TOT PROT 6.5 g/dl (6.4-8.2)
[2021-02-27 12:04] LABS: ALK PHOS 87 U/L (45-117)
[2021-02-27 12:08] LABS: CREATININE 13.9 mg/dL (0.55-1.3)
[2021-02-27 12:38] LABS: LDH 229 U/L (87-246)
[2021-02-27] MEDS: METOPROLOL TARTRATE 25 MG TABLET (FP) PO SCH ×2 (15:06→21:07)
[2021-02-27] MEDS: amLODIPine BESYLATE 5 MG TABLET (FP) PO SCH (15:06)
[2021-02-27] MEDS: ISOSORBIDE MONONITRATE 30 MG TAB.SR.24H (FP) PO SCH (15:07)
[2021-02-27] MEDS: PANTOPRAZOLE SODIUM 40 MG VIAL IVPUSH SCH (15:19)
[2021-02-28] MEDS ORDERED: ACETAMINOPHEN 325 MG TABLET (FP) PO ONE (01:18)
[2021-02-28] MEDS ORDERED: traMADol HCL 50 MG TABLET PO ONE (01:26)
[2021-02-28] MEDS: hydrALAZINE HCL 50 MG TABLET (FP) PO SCH ×3 (06:15→22:02)
[2021-02-28] MEDS: HEPARIN NA (PORCINE) 5,000 UNITS/ML 1ML VIAL SQ SCH ×3 (06:17→22:02)
[2021-02-28 07:25] LABS: HEMOGLOBIN 9.7 GM/dL (11.7-16.9); MCH 28.4 pg (25.7-33.7); MCHC 33.6 g/dl (32.0-35.9); MEAN CELL VOLUME 84.5 fl (80-96); PLATELET COUNT 190 K/MM3 (134-434); RBC 3.43 M/mm3 (4.00-5.60); RDW 17.7 % (11.9-15.9); WHITE BLOOD COUNT 5.1 K/mm3 (4.0-10.0)
[2021-02-28 07:44] LABS: CHLORIDE 102 mmol/L (98-107); POTASSIUM 4.9 mmol/L (3.5-5.1); SODIUM 142 mmol/L (136-145)
[2021-02-28 08:15] LABS: ANION GAP 7 MMOL/L (8-16); CO2 33 mmol/L (21-32)
[2021-02-28 08:17] LABS: PHOSPHOROUS 3.1 mg/dL (2.5-4.9); SGOT/AST 40 U/L (15-37); SGPT/ALT 79 U/L (13-61)
[2021-02-28 08:18] LABS: BILIRUBIN,TOTAL 0.7 mg/dL (0.2-1); MAGNESIUM 2.1 mg/dL (1.8-2.4); TOT PROT 6.1 g/dl (6.4-8.2)
[2021-02-28 08:20] LABS: ALK PHOS 78 U/L (45-117); BLOOD UREA NITROGEN 39.5 mg/dL (7-18); GLUCOSE,RANDOM 78 mg/dL (74-106)
[2021-02-28 10:12] LABS: CREATININE 9.7 mg/dL (0.55-1.3)
[2021-02-28] MEDS: ISOSORBIDE MONONITRATE 30 MG TAB.SR.24H (FP) PO SCH (11:16)
[2021-02-28] MEDS: amLODIPine BESYLATE 5 MG TABLET (FP) PO SCH (11:17)
[2021-02-28] MEDS: PANTOPRAZOLE SODIUM 40 MG VIAL IVPUSH SCH (11:17)
[2021-02-28] MEDS: METOPROLOL TARTRATE 25 MG TABLET (FP) PO SCH ×2 (11:17→22:02)
[2021-02-28] MEDS: DOCUSATE SODIUM 100 MG CAPSULE (FP) PO SCH (11:25)
[2021-02-28] MEDS ORDERED: SODIUM CHLORIDE 250 ML IV PRN (12:33)
[2021-02-28] MEDS ORDERED: EPOETIN ALFA-EPBX 4,000 UNIT/ML VIAL SQ ONE (13:00)
[2021-02-28] MEDS ORDERED: HEPARIN NA (PORCINE) 5,000 UNITS/ML 1ML VIAL IVPUSH ONE (13:00)
[2021-03-01] MEDS: hydrALAZINE HCL 50 MG TABLET (FP) PO SCH ×2 (06:08→14:43)
[2021-03-01] MEDS: HEPARIN NA (PORCINE) 5,000 UNITS/ML 1ML VIAL SQ SCH ×2 (06:08→14:43)
[2021-03-01 07:53] LABS: HEMATOCRIT 31.4 % (35.4-49); HEMOGLOBIN 10.5 GM/dL (11.7-16.9); MCH 28.3 pg (25.7-33.7); MCHC 33.4 g/dl (32.0-35.9); MEAN CELL VOLUME 84.8 fl (80-96); MEAN PLT VOLUME 8.3 fl (7.5-11.1); PLATELET COUNT 198 K/MM3 (134-434); RDW 17.6 % (11.9-15.9); WHITE BLOOD COUNT 4.8 K/mm3 (4.0-10.0)
[2021-03-01 08:17] LABS: POTASSIUM 4.3 mmol/L (3.5-5.1)
[2021-03-01 08:25] LABS: CALCIUM 9.8 mg/dL (8.5-10.1)
[2021-03-01 08:26] LABS: ALBUMIN 3.3 g/dl (3.4-5.0); BLOOD UREA NITROGEN 19.7 mg/dL (7-18)
[2021-03-01 08:29] LABS: CREATININE 7.3 mg/dL (0.55-1.3)
[2021-03-01 08:30] LABS: BILIRUBIN,TOTAL 0.6 mg/dL (0.2-1)
[2021-03-01 08:31] LABS: TOT PROT 6.4 g/dl (6.4-8.2)
[2021-03-01] MEDS ORDERED: PANTOPRAZOLE 40 MG TABLET PO SCH (10:00)
[2021-03-01] MEDS: ISOSORBIDE MONONITRATE 30 MG TAB.SR.24H (FP) PO SCH (10:56)
[2021-03-01] MEDS: DOCUSATE SODIUM 100 MG CAPSULE (FP) PO SCH (10:57)
[2021-03-01] MEDS: METOPROLOL TARTRATE 25 MG TABLET (FP) PO SCH (10:57)
[2021-03-01] MEDS: amLODIPine BESYLATE 5 MG TABLET (FP) PO SCH (10:57)
[2021-03-01] MEDS ORDERED: ONDANSETRON 4 MG/2 ML VIAL IVPUSH PRN (11:08)
[2021-03-01 15:31] VITALS: BP 121/64; PULSE 72; TEMP 98.2
[2021-03-02 13:13] LABS: HEP B CORE AB, TOT Negative (Negative)
== END 2021-03-01 17:25 | disposition home or self-care (01) | DRG 291 ==
LOC: JER 20:30 → JERBED 21:59 → J4W 02-27 14:45
PROVIDERS: ADMIT Internal Medicine; ATTEND Internal Medicine
PROC: 5A1D70Z Performance of Urinary Filtration, Intermittent, Less than 6 Hours Per Day (ICD-10-PCS; principal; 2021-02-28)
DX: I13.2 Hypertensive heart and chronic kidney disease with heart failure and with stage 5 chronic kidney disease, or end stage renal disease (principal); N18.6 End stage renal disease; I50.32 Chronic diastolic (congestive) heart failure; I24.8 Other forms of acute ischemic heart disease; I16.0 Hypertensive urgency; Z99.2 Dependence on renal dialysis; R74.01 Elevation of levels of liver transaminase levels; E87.5 Hyperkalemia; K21.9 Gastro-esophageal reflux disease without esophagitis; D63.1 Anemia in chronic kidney disease; R10.11 Right upper quadrant pain
CPT/HCPCS: 36415; 36600; 71045-TC-FY; 74177-TC; 76705-TC; 80053; 80074; 82140; 82248; 82550; 82553; 82728; 82803; 82962; 83540; 83550; 83605; 83615; 83690; 83735; 84100; 84443; 84484; 85025; 85027; 85045; 85379; 85610; 85730; 86140; 86704; 86706; 86707; 86708; 86709; 86769; 86803; 87040; 87340; 93005; 93010; 93306-TC; 93975; 97116-GP; 97161-GP; 99285-25; C9803; J0131; J1644; Q5106; U0003; U0005

== ENCOUNTER 2022-05-09 16:58 | Emergency (ER) | payer OTHER ==
[2022-05-09 17:15] VITALS: BP 165/89; PULSE 82; TEMP 98.6; BMI 24.0
[2022-05-09] MEDS ORDERED: LIDOCAINE 5% TOPICAL PATCH TP ONE (17:55)
[2022-05-09] MEDS ORDERED: LIDOCAINE 5% TOPICAL PATCH ONE (18:11)
[2022-05-09] MEDS ORDERED: LIDOCAINE PATCH REMOVAL MC SCH (22:00)
== END 2022-05-09 18:15 | disposition home or self-care (01) ==
LOC: JERFT 16:58 → JER 16:58 → JERFT 18:15
DX: M54.32 Sciatica, left side (principal)
CPT/HCPCS: 99283-25

== ENCOUNTER 2022-08-30 01:36 | Emergency (ER) | payer OTHER ==
[2022-08-30 02:20] VITALS: BP 153/89; PULSE 109; RESP 20; BMI 25.9
[2022-08-30] MEDS ORDERED: ACETAMINOPHEN 500 MG TABLET (FP) PO ONE (03:26)
[2022-08-30] MEDS ORDERED: LIDOCAINE 5% TOPICAL PATCH TP ONE (03:26)
[2022-08-30] MEDS ORDERED: LIDOCAINE 5% TOPICAL PATCH ONE (03:46)
[2022-08-30] MEDS ORDERED: ACETAMINOPHEN 500 MG TABLET (FP) ONE (03:46)
[2022-08-30] MEDS ORDERED: LIDOCAINE PATCH REMOVAL MC SCH (22:00)
== END 2022-08-30 05:44 | disposition home or self-care (01) ==
LOC: JER 01:36
DX: M25.551 Pain in right hip (principal); M79.604 Pain in right leg
CPT/HCPCS: 73502-TC-RT-FY; 99283-25

== ENCOUNTER 2022-09-13 18:46 | Observation (INO) | payer OTHER ==
[2022-09-13 22:10] LABS: BASO % 1.4 % (0-2.0); EOS % 5.3 % (0-4.5); HEMATOCRIT 26.6 % (35.4-49); HEMOGLOBIN 8.9 GM/dL (11.7-16.9); LYMPH % 17.2 % (8-40); MCH 29.3 pg (25.7-33.7); MCHC 33.4 g/dl (32.0-35.9); MEAN CELL VOLUME 87.8 fl (80-96); MEAN PLT VOLUME 7.6 fl (7.5-11.1); MONO % 13.4 % (3.8-10.2); NEUT % 62.7 % (42.8-82.8); PLATELET COUNT 286 10^3/uL (134-434); RBC 3.03 M/mm3 (4.00-5.60); RDW 18.5 % (11.9-15.9); WHITE BLOOD COUNT 5.8 K/mm3 (4.0-10.0)
[2022-09-13 22:42] LABS: CHLORIDE 105 mmol/L (98-107); SODIUM 144 mmol/L (136-145)
[2022-09-13 22:44] LABS: CALCIUM 8.1 mg/dL (8.5-10.1)
[2022-09-13 22:46] LABS: ALBUMIN 3.3 g/dl (3.4-5.0); ANION GAP 11 MMOL/L (8-16); BLOOD UREA NITROGEN 41.9 mg/dL (7-18); CO2 28 mmol/L (21-32); GLUCOSE,RANDOM 102 mg/dL (74-106)
[2022-09-13 22:49] LABS: BILIRUBIN,TOTAL 0.4 mg/dL (0.2-1); SGOT/AST 25 U/L (15-37); SGPT/ALT 19 U/L (13-61)
[2022-09-13 22:50] LABS: TOT PROT 6.7 g/dl (6.4-8.2)
[2022-09-13 22:51] LABS: ALK PHOS 102 U/L (45-117)
[2022-09-13 22:53] LABS: N-TERMINAL BNP 17779.7 pg/ml (5-125)
[2022-09-13] MEDS ORDERED: METOPROLOL TARTRATE 25 MG TABLET (FP) PO ONE (23:13)
[2022-09-13] MEDS ORDERED: amLODIPine BESYLATE 10 MG TABLET (FP) PO ONE (23:13)
[2022-09-13] MEDS ORDERED: METOPROLOL TARTRATE 25 MG TABLET (FP) ONE (23:41)
[2022-09-13] MEDS ORDERED: amLODIPine BESYLATE 10 MG TABLET (FP) ONE (23:41)
[2022-09-14] MEDS ORDERED: DEXTROSE 50%-WATER - 25 GM/50 ML VIAL IVPUSH ONE (01:55)
[2022-09-14] MEDS ORDERED: DEXTROSE 50%-WATER 25 GM/50 ML DISP.SYRIN ONE (01:56)
[2022-09-14 06:22] VITALS: BMI 27.8
[2022-09-14] MEDS: HEPARIN NA (PORCINE) 5,000 UNITS/ML 1ML VIAL SQ SCH ×3 (06:32→22:32)
[2022-09-14] MEDS ORDERED: SODIUM CHLORIDE 250 ML IV PRN (08:56)
[2022-09-14] MEDS ORDERED: HEPARIN NA (PORCINE) 5,000 UNITS/ML 1ML VIAL IVPUSH ONE (09:00)
[2022-09-14] MEDS ORDERED: EPOETIN ALFA-EPBX 10,000 UNIT/ML VIAL SQ ONE (09:15)
[2022-09-14 09:40] LABS: BASO % 1.4 % (0-2.0); HEMATOCRIT 27.5 % (35.4-49); LYMPH % 20.5 % (8-40); MCH 28.4 pg (25.7-33.7); MCHC 32.7 g/dl (32.0-35.9); MEAN CELL VOLUME 86.9 fl (80-96); MEAN PLT VOLUME 7.6 fl (7.5-11.1); MONO % 12.4 % (3.8-10.2); NEUT % 60.7 % (42.8-82.8); PLATELET COUNT 305 10^3/uL (134-434); RBC 3.16 M/mm3 (4.00-5.60); RDW 17.6 % (11.9-15.9); WHITE BLOOD COUNT 5.8 K/mm3 (4.0-10.0)
[2022-09-14 09:49] LABS: CHLORIDE 106 mmol/L (98-107); SODIUM 144 mmol/L (136-145)
[2022-09-14 09:55] LABS: CALCIUM 8.1 mg/dL (8.5-10.1); IRON SERUM 37 ug/dL (50-175); TOTAL IRON BINDING CAPACITY 189 ug/dL (250-450)
[2022-09-14 09:56] LABS: ANION GAP 10 MMOL/L (8-16); BLOOD UREA NITROGEN 46.1 mg/dL (7-18); CO2 28 mmol/L (21-32); GLUCOSE,RANDOM 117 mg/dL (74-106); MAGNESIUM 2.5 mg/dL (1.8-2.4)
[2022-09-14 09:58] LABS: CHOLESTEROL 97 mg/dL (50-200)
[2022-09-14 09:59] LABS: BILIRUBIN,TOTAL 0.4 mg/dL (0.2-1); PHOSPHOROUS 4.5 mg/dL (2.5-4.9); SGPT/ALT 14 U/L (13-61); TOT PROT 6.1 g/dl (6.4-8.2); TRIGLYCERIDES 36 mg/dL (0-150)
[2022-09-14 10:00] LABS: ALK PHOS 100 U/L (45-117); HDL CHOLESTEROL 56 mg/dL (40-60); LDL CHOLESTEROL (ONLY SJRH) 34 mg/dL (5-100); SGOT/AST 16 U/L (15-37)
[2022-09-14 10:08] LABS: CREATININE 10.9 mg/dL (0.55-1.3)
[2022-09-14] MEDS: ALBUMIN HUMAN 25% 12.5 GM/50 ML VIAL IV SCH ×2 (13:16→13:17)
[2022-09-14] MEDS: amLODIPine BESYLATE 10 MG TABLET (FP) PO SCH (13:53)
[2022-09-14] MEDS: LISINOPRIL 10 MG TABLET PO SCH (13:53)
[2022-09-14] MEDS: metoPROLOL SUCCINATE 25 MG TAB.SR.24H (FP) PO SCH (17:41)
[2022-09-15] MEDS: HEPARIN NA (PORCINE) 5,000 UNITS/ML 1ML VIAL SQ SCH ×3 (06:02→21:40)
[2022-09-15] MEDS: amLODIPine BESYLATE 10 MG TABLET (FP) PO SCH (10:33)
[2022-09-15] MEDS: LISINOPRIL 10 MG TABLET PO SCH (10:33)
[2022-09-15] MEDS: metoPROLOL SUCCINATE 25 MG TAB.SR.24H (FP) PO SCH (10:33)
[2022-09-15 14:16] LABS: HEMATOCRIT 29.5 % (35.4-49); HEMOGLOBIN 9.6 GM/dL (11.7-16.9); MCH 28.8 pg (25.7-33.7); MCHC 32.7 g/dl (32.0-35.9); MEAN PLT VOLUME 7.6 fl (7.5-11.1); PLATELET COUNT 306 10^3/uL (134-434); RBC 3.35 M/mm3 (4.00-5.60); RDW 17.8 % (11.9-15.9); WHITE BLOOD COUNT 6.7 K/mm3 (4.0-10.0)
[2022-09-15] MEDS: hydrALAZINE HCL 25 MG TABLET (FP) PO SCH ×2 (14:21→21:40)
[2022-09-15 14:47] LABS: CHLORIDE 103 mmol/L (98-107); SODIUM 144 mmol/L (136-145)
[2022-09-15 14:48] LABS: CALCIUM 8.9 mg/dL (8.5-10.1)
[2022-09-15 14:49] LABS: ANION GAP 10 MMOL/L (8-16); BLOOD UREA NITROGEN 28.5 mg/dL (7-18); CO2 32 mmol/L (21-32); GLUCOSE,RANDOM 94 mg/dL (74-106); MAGNESIUM 2.4 mg/dL (1.8-2.4)
[2022-09-15 14:52] LABS: PHOSPHOROUS 3.9 mg/dL (2.5-4.9)
[2022-09-15 14:53] LABS: CREATININE 8.3 mg/dL (0.55-1.3)
[2022-09-16] MEDS: hydrALAZINE HCL 25 MG TABLET (FP) PO SCH (05:53)
[2022-09-16] MEDS: HEPARIN NA (PORCINE) 5,000 UNITS/ML 1ML VIAL SQ SCH (05:53)
[2022-09-16] MEDS ORDERED: SODIUM CHLORIDE 250 ML IV PRN (08:58)
[2022-09-16] MEDS ORDERED: HEPARIN NA (PORCINE) 5,000 UNITS/ML 1ML VIAL IVPUSH ONE (09:00)
[2022-09-16 10:11] VITALS: RESP 18; TEMP 98.8
[2022-09-16 10:16] LABS: HEMATOCRIT 29.2 % (35.4-49); HEMOGLOBIN 9.6 GM/dL (11.7-16.9); MCH 28.6 pg (25.7-33.7); MCHC 32.7 g/dl (32.0-35.9); MEAN CELL VOLUME 87.4 fl (80-96); MEAN PLT VOLUME 7.9 fl (7.5-11.1); PLATELET COUNT 312 10^3/uL (134-434); RBC 3.34 M/mm3 (4.00-5.60); RDW 17.7 % (11.9-15.9); WHITE BLOOD COUNT 5.6 K/mm3 (4.0-10.0)
[2022-09-16 10:33] LABS: CHLORIDE 103 mmol/L (98-107); SODIUM 143 mmol/L (136-145)
[2022-09-16 10:39] LABS: ANION GAP 9 MMOL/L (8-16); BLOOD UREA NITROGEN 37.1 mg/dL (7-18); CO2 31 mmol/L (21-32); GLUCOSE,RANDOM 141 mg/dL (74-106)
[2022-09-16 10:59] LABS: CREATININE 10.1 mg/dL (0.55-1.3)
[2022-09-16] MEDS: metoPROLOL SUCCINATE 25 MG TAB.SR.24H (FP) PO SCH (12:56)
[2022-09-16] MEDS: LISINOPRIL 10 MG TABLET PO SCH (12:56)
[2022-09-16] MEDS: amLODIPine BESYLATE 10 MG TABLET (FP) PO SCH (12:56)
[2022-09-16 12:58] VITALS: BP 170/105; PULSE 86
== END 2022-09-16 15:12 | disposition home or self-care (01) ==
LOC: JERFT 18:46 → JER 18:46 → JERBED 23:11 → J7W 09-14 02:10
PROVIDERS: ADMIT Internal Medicine; ATTEND Internal Medicine
PROC: 3E033GC Introduction of Other Therapeutic Substance into Peripheral Vein, Percutaneous Approach (ICD-10-PCS; principal; 2022-09-13)
PROC: 3E023GC Introduction of Other Therapeutic Substance into Muscle, Percutaneous Approach (ICD-10-PCS; 2022-09-13)
PROC: 3E0337Z Introduction of Electrolytic and Water Balance Substance into Peripheral Vein, Percutaneous Approach (ICD-10-PCS; 2022-09-13)
DX: I12.0 Hypertensive chronic kidney disease with stage 5 chronic kidney disease or end stage renal disease (principal); N18.6 End stage renal disease; R22.0 Localized swelling, mass and lump, head; D64.9 Anemia, unspecified; Z29.8 Encounter for other specified prophylactic measures; Z99.2 Dependence on renal dialysis
CPT/HCPCS: 36415; 71045-TC-FY; 80048; 80053; 80061; 82728; 82962; 83540; 83550; 83735; 83880; 84100; 84443; 84466; 84484; 85025; 85027; 85045; 86803; 87340; 87517; 93005; 93010; 93970-TC; 96361; 96372; 96374; 96376; 97116-GP; 99285-25; C9803-CS; G0378; J1644; Q5106; U0003; U0005

== ENCOUNTER 2023-03-27 12:11 | Emergency (ER) | payer OTHER ==
[2023-03-27 12:17] VITALS: BMI 27.3
[2023-03-27] MEDS ORDERED: LIDOCAINE 2.5%/PRILOCAINE 2.5% 30 GRAM TUBE TP ONE (12:46)
[2023-03-27] MEDS ORDERED: LIDOCAINE 2.5%/PRILOCAINE 2.5% (5 Gram/TUBE) TP ONE (12:47)
[2023-03-27 14:06] VITALS: BP 163/83; PULSE 86; RESP 20; TEMP 97.8
== END 2023-03-27 14:07 | disposition home or self-care (01) ==
LOC: JER 12:11
DX: K64.9 Unspecified hemorrhoids (principal); K59.00 Constipation, unspecified
CPT/HCPCS: 99282-25

== ENCOUNTER 2023-03-30 00:17 | Inpatient (IN) | payer OTHER ==
[2023-03-30] MEDS ORDERED: MAGNESIUM SULF 50% (8.12 MEQ/2 ML-1 GM VIAL) IVPB ONE (00:28)
[2023-03-30] MEDS: ALBUTEROL SO4 2.5/IPRATROPIUM 0.5 INH SOL 3 ML VIAL.NEB. NEB SCH ×3 (00:32→00:52)
[2023-03-30] MEDS ORDERED: MAGNESIUM SULFATE IN WATER 2 GM/50 ML IVPB IVPB ONE (00:35)
[2023-03-30 01:31] LABS: BASO % 1.3 % (0-2.0); EOS % 4.7 % (0-4.5); HEMATOCRIT 35.8 % (35.4-49); HEMOGLOBIN 11.8 GM/dL (11.7-16.9); LYMPH % 29.6 % (8-40); MCH 28.4 pg (25.7-33.7); MEAN PLT VOLUME 8.2 fl (7.5-11.1); MONO % 12.8 % (3.8-10.2); NEUT % 51.6 % (42.8-82.8); PLATELET COUNT 203 10^3/uL (134-434); RBC 4.16 M/mm3 (4.00-5.60); RDW 15.9 % (11.9-15.9)
[2023-03-30 01:39] LABS: INR 1.08 (0.83-1.09); PROTHROMBIN TIME (PATIENT) 12.5 SEC (9.7-13.0); VENOUS BASE EXCESS -0.9 mmol/L (-2-2); VENOUS O2 SATURATION 43.6 % (70-80); VENOUS PCO2 62.2 mmHg (38-52); VENOUS PH 7.261 (7.310-7.410)
[2023-03-30 01:42] LABS: ACTIVATED PTT 33.3 SECONDS (25.2-36.5)
[2023-03-30 01:49] LABS: CHLORIDE 104 mmol/L (98-107); POTASSIUM 3.8 mmol/L (3.5-5.1); SODIUM 139 mmol/L (136-145)
[2023-03-30 01:51] LABS: CALCIUM 8.3 mg/dL (8.5-10.1)
[2023-03-30 01:52] LABS: ALBUMIN 3.5 g/dl (3.4-5.0); ANION GAP 6 MMOL/L (8-16); BLOOD UREA NITROGEN 23.8 mg/dL (7-18); CO2 29 mmol/L (21-32); GLUCOSE,RANDOM 72 mg/dL (74-106)
[2023-03-30 01:55] LABS: SGOT/AST 21 U/L (15-37); SGPT/ALT 12 U/L (13-61)
[2023-03-30 01:56] LABS: BILIRUBIN,TOTAL 0.3 mg/dL (0.2-1)
[2023-03-30 01:57] LABS: ALK PHOS 147 U/L (45-117); TOT PROT 7.1 g/dl (6.4-8.2)
[2023-03-30 02:00] LABS: N-TERMINAL BNP 14552.2 pg/ml (5-125)
[2023-03-30] MEDS ORDERED: FUROSEMIDE 40 MG/4 ML INJECTABLE VIAL IVPUSH ONE ×2 (02:25→02:29)
[2023-03-30] MEDS ORDERED: FUROSEMIDE 40 MG/4 ML INJECTABLE VIAL ONE (02:29)
[2023-03-30 03:43] LABS: CREATININE 7.7 mg/dL (0.55-1.3)
[2023-03-30] MEDS ORDERED: ISOSORBIDE MONONITRATE 30 MG TAB.SR.24H (FP) PO SCH ×2 (06:00→10:00)
[2023-03-30] MEDS ORDERED: LISINOPRIL 20 MG TABLET PO SCH ×3 (06:00→10:00)
[2023-03-30] MEDS ORDERED: amLODIPine BESYLATE 10 MG TABLET (FP) PO SCH ×2 (06:00→10:00)
[2023-03-30] MEDS: hydrALAZINE HCL 50 MG TABLET (FP) PO SCH ×3 (06:26→21:29)
[2023-03-30] MEDS: LISINOPRIL 20 MG TABLET PO SCH (06:26)
[2023-03-30] MEDS: HEPARIN NA (PORCINE) 5,000 UNITS/ML 1ML VIAL SQ SCH ×3 (06:26→21:29)
[2023-03-30 06:59] LABS: HEMATOCRIT 38.2 % (35.4-49); HEMOGLOBIN 12.7 GM/dL (11.7-16.9); MCH 28.7 pg (25.7-33.7); MCHC 33.3 g/dl (32.0-35.9); MEAN CELL VOLUME 86.2 fl (80-96); MEAN PLT VOLUME 8.1 fl (7.5-11.1); PLATELET COUNT 200 10^3/uL (134-434); RBC 4.43 M/mm3 (4.00-5.60); RDW 15.9 % (11.9-15.9); WHITE BLOOD COUNT 5.7 K/mm3 (4.0-10.0)
[2023-03-30 07:12] VITALS: BMI 17.7
[2023-03-30 07:20] LABS: CHLORIDE 106 mmol/L (98-107); POTASSIUM 4.1 mmol/L (3.5-5.1); SODIUM 141 mmol/L (136-145)
[2023-03-30 07:22] LABS: ALBUMIN 3.4 g/dl (3.4-5.0); ANION GAP 7 MMOL/L (8-16); CALCIUM 8.5 mg/dL (8.5-10.1); CO2 28 mmol/L (21-32)
[2023-03-30 07:23] LABS: BLOOD UREA NITROGEN 24.9 mg/dL (7-18); GLUCOSE,RANDOM 94 mg/dL (74-106); MAGNESIUM 2.6 mg/dL (1.8-2.4)
[2023-03-30 07:25] LABS: PHOSPHOROUS 4.7 mg/dL (2.5-4.9); SGOT/AST 19 U/L (15-37)
[2023-03-30 07:26] LABS: SGPT/ALT 13 U/L (13-61)
[2023-03-30 07:27] LABS: BILIRUBIN,TOTAL 0.4 mg/dL (0.2-1)
[2023-03-30 07:28] LABS: ALK PHOS 153 U/L (45-117)
[2023-03-30 07:33] LABS: CREATININE 8.1 mg/dL (0.55-1.3)
[2023-03-30 07:37] LABS: ARTERIAL BLD GAS O2 SATURATION 99.1 % (95-98); ARTERIAL BLOOD GAS BASE EXCESS -1.6 mmol/L (-2-2); ARTERIAL BLOOD GAS PO2 163.4 mmHg (80-100); ARTERIAL BLOOD GAS pH 7.385 (7.350-7.450)
[2023-03-30 07:39] LABS: ALLENS TEST POSITIVE
[2023-03-30 07:40] LABS: VENT RATE 16
[2023-03-30] MEDS: ISOSORBIDE MONONITRATE 30 MG TAB.SR.24H (FP) PO SCH (10:02)
[2023-03-30] MEDS: METOPROLOL TARTRATE 25 MG TABLET (FP) PO SCH ×2 (10:02→21:29)
[2023-03-30] MEDS: CALCIUM ACETATE 667 MG CAPSULE (FP) PO SCH ×3 (10:02→17:08)
[2023-03-30] MEDS: amLODIPine BESYLATE 10 MG TABLET (FP) PO SCH (10:02)
[2023-03-30] MEDS ORDERED: SODIUM CHLORIDE 250 ML IV PRN (12:31)
[2023-03-31] MEDS ORDERED: ACETAMINOPHEN 325 MG TABLET (FP) PO ONE (02:42)
[2023-03-31] MEDS: HEPARIN NA (PORCINE) 5,000 UNITS/ML 1ML VIAL SQ SCH ×3 (05:29→22:14)
[2023-03-31] MEDS: hydrALAZINE HCL 50 MG TABLET (FP) PO SCH ×3 (05:29→22:14)
[2023-03-31] MEDS: LISINOPRIL 20 MG TABLET PO SCH (05:29)
[2023-03-31 07:10] LABS: CHLORIDE 105 mmol/L (98-107); POTASSIUM 3.6 mmol/L (3.5-5.1); SODIUM 139 mmol/L (136-145)
[2023-03-31 07:13] LABS: ANION GAP 8 MMOL/L (8-16); CALCIUM 8.3 mg/dL (8.5-10.1); CO2 26 mmol/L (21-32); GLUCOSE,RANDOM 82 mg/dL (74-106)
[2023-03-31 07:14] LABS: ALBUMIN 3.2 g/dl (3.4-5.0); BLOOD UREA NITROGEN 34.5 mg/dL (7-18)
[2023-03-31 07:16] LABS: SGPT/ALT 10 U/L (13-61)
[2023-03-31 07:17] LABS: SGOT/AST 18 U/L (15-37)
[2023-03-31 07:18] LABS: BILIRUBIN,TOTAL 0.6 mg/dL (0.2-1); TOT PROT 6.5 g/dl (6.4-8.2)
[2023-03-31 07:19] LABS: ALK PHOS 129 U/L (45-117)
[2023-03-31] MEDS ORDERED: WITCH HAZEL 50% (TUCKS) 40 PAD/JAR PAD TP ONE (07:42)
[2023-03-31] MEDS ORDERED: ACETAMINOPHEN 500 MG TABLET (FP) PO PRN (08:23)
[2023-03-31] MEDS ORDERED: oxyCODONE HCL 5 MG TABLET PO ONE (08:23)
[2023-03-31 08:30] LABS: CREATININE 10.6 mg/dL (0.55-1.3)
[2023-03-31] MEDS: CALCIUM ACETATE 667 MG CAPSULE (FP) PO SCH ×3 (08:39→17:30)
[2023-03-31] MEDS ORDERED: POTASSIUM CHLORIDE TABS 20 MEQ TABLET.ER (FP) PO ONE (08:50)
[2023-03-31] MEDS ORDERED: BENZOCAINE 28 GM HEMORRHOIDAL OINTMENT RC PRN (09:22)
[2023-03-31] MEDS: ISOSORBIDE MONONITRATE 30 MG TAB.SR.24H (FP) PO SCH (12:06)
[2023-03-31] MEDS: amLODIPine BESYLATE 10 MG TABLET (FP) PO SCH (12:07)
[2023-03-31] MEDS: METOPROLOL TARTRATE 25 MG TABLET (FP) PO SCH ×2 (12:07→22:14)
[2023-03-31] MEDS: PHENYLEPHRINE HCL/COCOA BUTTER 1 EACH SUPP.RECT RC SCH ×2 (12:09→22:14)
[2023-03-31 12:15] LABS: GAMMA GLUTAMYL TRANSPEPTIDASE 15 U/L (5-85)
[2023-03-31] MEDS ORDERED: SODIUM CHLORIDE 250 ML IV PRN (12:36)
[2023-03-31] MEDS: POLYETHYLENE GLYCOL (HEALTHYLAX) 3350 17 GM PACKET PO SCH (14:18)
[2023-04-01] MEDS: HEPARIN NA (PORCINE) 5,000 UNITS/ML 1ML VIAL SQ SCH ×3 (05:06→21:41)
[2023-04-01] MEDS: hydrALAZINE HCL 50 MG TABLET (FP) PO SCH ×3 (05:06→21:42)
[2023-04-01] MEDS: LISINOPRIL 20 MG TABLET PO SCH (05:06)
[2023-04-01] MEDS: CALCIUM ACETATE 667 MG CAPSULE (FP) PO SCH ×3 (08:35→17:43)
[2023-04-01] MEDS ORDERED: MAG HYDROX/AL HYDROX/SIMETH 30 ML UNIT-DOSE CUP PO PRN (10:57)
[2023-04-01] MEDS: amLODIPine BESYLATE 10 MG TABLET (FP) PO SCH (11:05)
[2023-04-01] MEDS: ISOSORBIDE MONONITRATE 30 MG TAB.SR.24H (FP) PO SCH (11:05)
[2023-04-01] MEDS: METOPROLOL TARTRATE 25 MG TABLET (FP) PO SCH ×2 (11:06→21:42)
[2023-04-01] MEDS: POLYETHYLENE GLYCOL (HEALTHYLAX) 3350 17 GM PACKET PO SCH (11:06)
[2023-04-01] MEDS: PHENYLEPHRINE HCL/COCOA BUTTER 1 EACH SUPP.RECT RC SCH ×2 (11:18→21:42)
[2023-04-01] MEDS: PANTOPRAZOLE 40 MG TABLET PO SCH (12:18)
[2023-04-02] MEDS: LISINOPRIL 20 MG TABLET PO SCH (05:55)
[2023-04-02] MEDS: HEPARIN NA (PORCINE) 5,000 UNITS/ML 1ML VIAL SQ SCH (05:55)
[2023-04-02] MEDS: hydrALAZINE HCL 50 MG TABLET (FP) PO SCH ×3 (05:55→21:17)
[2023-04-02] MEDS: CALCIUM ACETATE 667 MG CAPSULE (FP) PO SCH ×3 (08:37→17:09)
[2023-04-02 08:42] LABS: BASO % 0.9 % (0-2.0); EOS % 0.8 % (0-4.5); HEMATOCRIT 35.2 % (35.4-49); HEMOGLOBIN 12.1 GM/dL (11.7-16.9); LYMPH % 11.9 % (8-40); MCH 29.1 pg (25.7-33.7); MCHC 34.5 g/dl (32.0-35.9); MEAN CELL VOLUME 84.4 fl (80-96); MEAN PLT VOLUME 8.2 fl (7.5-11.1); MONO % 11.3 % (3.8-10.2); NEUT % 75.1 % (42.8-82.8); PLATELET COUNT 183 10^3/uL (134-434); RBC 4.17 M/mm3 (4.00-5.60); RDW 15.2 % (11.9-15.9); WHITE BLOOD COUNT 8.1 K/mm3 (4.0-10.0)
[2023-04-02 09:06] LABS: CHLORIDE 98 mmol/L (98-107); SODIUM 135 mmol/L (136-145)
[2023-04-02 09:08] LABS: CALCIUM 8.6 mg/dL (8.5-10.1)
[2023-04-02 09:09] LABS: ALBUMIN 3.2 g/dl (3.4-5.0); ANION GAP 8 MMOL/L (8-16); BLOOD UREA NITROGEN 28.3 mg/dL (7-18); CO2 29 mmol/L (21-32); GLUCOSE,RANDOM 115 mg/dL (74-106); MAGNESIUM 2.4 mg/dL (1.8-2.4)
[2023-04-02] MEDS ORDERED: HEPARIN NA (PORCINE) 5,000 UNITS/ML 1ML VIAL IVPUSH PRN ×2 (09:09)
[2023-04-02 09:11] LABS: SGOT/AST 18 U/L (15-37); SGPT/ALT 12 U/L (13-61)
[2023-04-02 09:13] LABS: BILIRUBIN,TOTAL 0.5 mg/dL (0.2-1); TOT PROT 6.8 g/dl (6.4-8.2)
[2023-04-02 09:14] LABS: ALK PHOS 128 U/L (45-117)
[2023-04-02] MEDS ORDERED: HEPARIN INFUSION - 25,000 UNITS/500 ML INFUS.BAG IVPB SCH (09:15)
[2023-04-02 09:20] LABS: CREATININE 7.8 mg/dL (0.55-1.3)
[2023-04-02] MEDS: ISOSORBIDE MONONITRATE 30 MG TAB.SR.24H (FP) PO SCH (09:33)
[2023-04-02] MEDS: METOPROLOL TARTRATE 25 MG TABLET (FP) PO SCH ×2 (09:33→21:17)
[2023-04-02] MEDS: amLODIPine BESYLATE 10 MG TABLET (FP) PO SCH (09:33)
[2023-04-02] MEDS: POLYETHYLENE GLYCOL (HEALTHYLAX) 3350 17 GM PACKET PO SCH (09:33)
[2023-04-02] MEDS: PANTOPRAZOLE 40 MG TABLET PO SCH (09:33)
[2023-04-02] MEDS: PHENYLEPHRINE HCL/COCOA BUTTER 1 EACH SUPP.RECT RC SCH ×2 (09:34→21:18)
[2023-04-02] MEDS: NITROGLYCERIN 2% OINTMENT - 1GM PACKET TD SCH ×3 (10:09→17:05)
[2023-04-02] MEDS ORDERED: NITROGLYCERIN 2% OINTMENT - 1GM PACKET TD SCH (12:00)
[2023-04-02 20:55] VITALS: RESP 18
[2023-04-02 22:25] VITALS: BP 108/58; PULSE 90; TEMP 97.9
[2023-04-03] MEDS: NITROGLYCERIN 2% OINTMENT - 1GM PACKET TD SCH (00:25)
== END 2023-04-03 01:00 | disposition short-term general hospital (02) | DRG 291 ==
LOC: JER 00:17 → JERBED 04:16 → J4S 06:02
PROVIDERS: ADMIT Internal Medicine; ATTEND Family Medicine
PROC: 5A1D70Z Performance of Urinary Filtration, Intermittent, Less than 6 Hours Per Day (ICD-10-PCS; principal; 2023-04-01)
DX: I13.2 Hypertensive heart and chronic kidney disease with heart failure and with stage 5 chronic kidney disease, or end stage renal disease (principal); I50.33 Acute on chronic diastolic (congestive) heart failure; N18.6 End stage renal disease; I24.8 Other forms of acute ischemic heart disease; I47.20 Ventricular tachycardia, unspecified; Z99.2 Dependence on renal dialysis; I16.0 Hypertensive urgency; K21.9 Gastro-esophageal reflux disease without esophagitis; K62.89 Other specified diseases of anus and rectum
CPT/HCPCS: 0241U-QW; 36415; 36600; 71045-TC-FY; 71250-TC; 80053; 82803; 82962; 82977; 83735; 83880; 84100; 84443; 84484; 85025; 85027; 85610; 85730; 86803; 87340; 93005; 93010; 93306-TC; 94660; 99285-25; C9803-CS; J1644; U0003; U0005

== ENCOUNTER 2023-04-08 11:06 | Emergency (ER) | payer OTHER ==
[2023-04-08 11:13] VITALS: BP 119/62; PULSE 71; RESP 18; TEMP 97.6; BMI 24.9
== END 2023-04-08 12:30 | disposition home or self-care (01) ==
LOC: JER 11:06
DX: T82.590A Other mechanical complication of surgically created arteriovenous fistula, initial encounter (principal); Y84.6 Urinary catheterization as the cause of abnormal reaction of the patient, or of later complication, without mention of misadventure at the time of the procedure
CPT/HCPCS: 99282-25

== ENCOUNTER 2023-04-09 05:15 | Observation (INO) | payer OTHER ==
[2023-04-09 05:22] VITALS: BMI 28.0
[2023-04-09 06:32] LABS: BASO % 1.4 % (0-2.0); EOS % 2.9 % (0-4.5); HEMATOCRIT 33.4 % (35.4-49); HEMOGLOBIN 11.4 GM/dL (11.7-16.9); LYMPH % 11.1 % (8-40); MCH 29.4 pg (25.7-33.7); MCHC 34.1 g/dl (32.0-35.9); MEAN CELL VOLUME 86.2 fl (80-96); MEAN PLT VOLUME 8.2 fl (7.5-11.1); NEUT % 75.6 % (42.8-82.8); PLATELET COUNT 308 10^3/uL (134-434); RBC 3.88 M/mm3 (4.00-5.60); RDW 15.2 % (11.9-15.9); WHITE BLOOD COUNT 7.5 K/mm3 (4.0-10.0)
[2023-04-09 06:50] LABS: CHLORIDE 104 mmol/L (98-107); POTASSIUM 5.3 mmol/L (3.5-5.1); SODIUM 141 mmol/L (136-145)
[2023-04-09 06:52] LABS: INR 1.13 (0.83-1.09); PROTHROMBIN TIME (PATIENT) 13.1 SEC (9.7-13.0)
[2023-04-09 06:54] LABS: ALBUMIN 3.1 g/dl (3.4-5.0); CALCIUM 8.6 mg/dL (8.5-10.1); LIPASE 397 U/L (73-393)
[2023-04-09 06:55] LABS: ACTIVATED PTT 35.1 SECONDS (25.2-36.5); ANION GAP 7 MMOL/L (8-16); CO2 29 mmol/L (21-32); GLUCOSE,RANDOM 82 mg/dL (74-106)
[2023-04-09 06:57] LABS: SGPT/ALT 12 U/L (13-61)
[2023-04-09 06:58] LABS: SGOT/AST 17 U/L (15-37)
[2023-04-09 06:59] LABS: BILIRUBIN,TOTAL 0.3 mg/dL (0.2-1); TOT PROT 6.8 g/dl (6.4-8.2)
[2023-04-09 07:00] LABS: ALK PHOS 137 U/L (45-117)
[2023-04-09 07:02] LABS: CREATININE 8.1 mg/dL (0.55-1.3)
[2023-04-09] MEDS ORDERED: NALOXONE HCL 0.4 MG/ML VIAL ONE (07:28)
[2023-04-09] MEDS ORDERED: NALOXONE HCL 0.4 MG/ML VIAL IVPUSH ONE (07:34)
[2023-04-09] MEDS ORDERED: SODIUM CHLORIDE 250 ML IV PRN (12:00)
[2023-04-09] MEDS ORDERED: SODIUM ZIRCONIUM CYCLOSILICATE (LOKELMA) 5 GM PACKET ONE (15:09)
[2023-04-09] MEDS: SODIUM ZIRCONIUM CYCLOSILICATE (LOKELMA) 5 GM PACKET PO SCH (15:10)
[2023-04-09] MEDS: CALCIUM ACETATE 667 MG CAPSULE (FP) PO SCH (18:40)
[2023-04-09] MEDS: PANTOPRAZOLE SODIUM 40 MG VIAL IVPUSH SCH (18:40)
[2023-04-09] MEDS ORDERED: PANTOPRAZOLE SODIUM 40 MG VIAL ONE (18:41)
[2023-04-10] MEDS ORDERED: METOPROLOL TARTRATE 25 MG TABLET (FP) ONE (00:40)
[2023-04-10] MEDS ORDERED: hydrALAZINE HCL 50 MG TABLET (FP) ONE (00:40)
[2023-04-10] MEDS ORDERED: HEPARIN NA (PORCINE) 5,000 UNITS/ML 1ML VIAL ONE (00:41)
[2023-04-10] MEDS: hydrALAZINE HCL 50 MG TABLET (FP) PO SCH ×4 (00:47→23:08)
[2023-04-10] MEDS: METOPROLOL TARTRATE 25 MG TABLET (FP) PO SCH ×3 (00:47→23:08)
[2023-04-10] MEDS: HEPARIN NA (PORCINE) 5,000 UNITS/ML 1ML VIAL SQ SCH ×3 (00:47→23:08)
[2023-04-10] MEDS ORDERED: ACETAMINOPHEN INJECTION 100 ML IVPB ONE (02:36)
[2023-04-10] MEDS ORDERED: ACETAMINOPHEN 1000 MG/100 ML BAG IVPB ONE ×2 (02:40→23:00)
[2023-04-10 07:30] LABS: BASO % 1.2 % (0-2.0); EOS % 2.2 % (0-4.5); HEMATOCRIT 34.9 % (35.4-49); HEMOGLOBIN 12.1 GM/dL (11.7-16.9); LYMPH % 17.1 % (8-40); MCH 29.2 pg (25.7-33.7); MCHC 34.5 g/dl (32.0-35.9); MEAN CELL VOLUME 84.4 fl (80-96); MEAN PLT VOLUME 8.1 fl (7.5-11.1); NEUT % 69.5 % (42.8-82.8); PLATELET COUNT 349 10^3/uL (134-434); RBC 4.14 M/mm3 (4.00-5.60); RDW 14.8 % (11.9-15.9); WHITE BLOOD COUNT 7.2 K/mm3 (4.0-10.0)
[2023-04-10 07:41] LABS: CHLORIDE 102 mmol/L (98-107); POTASSIUM 4.8 mmol/L (3.5-5.1); SODIUM 136 mmol/L (136-145)
[2023-04-10 07:44] LABS: ANION GAP 7 MMOL/L (8-16); BLOOD UREA NITROGEN 41.4 mg/dL (7-18); CO2 26 mmol/L (21-32); GLUCOSE,RANDOM 76 mg/dL (74-106); LIPASE 243 U/L (73-393)
[2023-04-10 07:45] LABS: ALBUMIN 3.1 g/dl (3.4-5.0)
[2023-04-10 07:46] LABS: AMYLASE 410 U/L (25-115); CALCIUM 8.4 mg/dL (8.5-10.1); SGOT/AST 14 U/L (15-37)
[2023-04-10 07:47] LABS: SGPT/ALT 10 U/L (13-61)
[2023-04-10 07:48] LABS: BILIRUBIN,TOTAL 0.4 mg/dL (0.2-1); TOT PROT 6.4 g/dl (6.4-8.2)
[2023-04-10 07:49] LABS: ALK PHOS 143 U/L (45-117)
[2023-04-10 08:02] LABS: CREATININE 10.5 mg/dL (0.55-1.3)
[2023-04-10] MEDS ORDERED: LISINOPRIL 20 MG TABLET PO SCH (10:00)
[2023-04-10 10:06] LABS: BASO % 1.8 % (0-2.0); EOS % 2.1 % (0-4.5); HEMATOCRIT 35.1 % (35.4-49); HEMOGLOBIN 11.6 GM/dL (11.7-16.9); LYMPH % 19.9 % (8-40); MCH 28.4 pg (25.7-33.7); MCHC 33.2 g/dl (32.0-35.9); MEAN CELL VOLUME 85.5 fl (80-96); MEAN PLT VOLUME 8.5 fl (7.5-11.1); NEUT % 66.2 % (42.8-82.8); PLATELET COUNT 355 10^3/uL (134-434); WHITE BLOOD COUNT 6.9 K/mm3 (4.0-10.0)
[2023-04-10 10:24] LABS: CHLORIDE 104 mmol/L (98-107); POTASSIUM 5.1 mmol/L (3.5-5.1); SODIUM 138 mmol/L (136-145)
[2023-04-10 10:26] LABS: CALCIUM 8.4 mg/dL (8.5-10.1); GLUCOSE,RANDOM 64 mg/dL (74-106)
[2023-04-10 10:27] LABS: ANION GAP 6 MMOL/L (8-16); BLOOD UREA NITROGEN 43.3 mg/dL (7-18); CO2 27 mmol/L (21-32)
[2023-04-10 10:29] LABS: SGPT/ALT 11 U/L (13-61)
[2023-04-10 10:30] LABS: SGOT/AST 12 U/L (15-37)
[2023-04-10 10:31] LABS: BILIRUBIN,TOTAL 0.4 mg/dL (0.2-1); TOT PROT 6.2 g/dl (6.4-8.2)
[2023-04-10 10:32] LABS: ALK PHOS 144 U/L (45-117)
[2023-04-10 10:41] LABS: CREATININE 10.5 mg/dL (0.55-1.3)
[2023-04-10] MEDS: CALCIUM ACETATE 667 MG CAPSULE (FP) PO SCH ×3 (12:01→17:22)
[2023-04-10] MEDS: PANTOPRAZOLE SODIUM 40 MG VIAL IVPUSH SCH (12:08)
[2023-04-10] MEDS: amLODIPine BESYLATE 10 MG TABLET (FP) PO SCH (12:09)
[2023-04-10] MEDS: ASPIRIN 81 MG CHEWABLE TABLETS PO SCH (12:09)
[2023-04-10] MEDS: SODIUM ZIRCONIUM CYCLOSILICATE (LOKELMA) 5 GM PACKET PO SCH (12:09)
[2023-04-10] MEDS: ISOSORBIDE MONONITRATE 30 MG TAB.SR.24H (FP) PO SCH (14:55)
[2023-04-10] MEDS ORDERED: ATORVASTATIN CA 40 MG TABLET (FP) PO SCH (22:00)
[2023-04-10] MEDS: POLYETHYLENE GLYCOL (HEALTHYLAX) 3350 17 GM PACKET PO SCH (23:08)
[2023-04-11] MEDS: hydrALAZINE HCL 50 MG TABLET (FP) PO SCH ×2 (06:27→13:47)
[2023-04-11] MEDS: CALCIUM ACETATE 667 MG CAPSULE (FP) PO SCH ×2 (08:23→12:20)
[2023-04-11 10:00] VITALS: RESP 18
[2023-04-11] MEDS: ISOSORBIDE MONONITRATE 30 MG TAB.SR.24H (FP) PO SCH (10:01)
[2023-04-11] MEDS: METOPROLOL TARTRATE 25 MG TABLET (FP) PO SCH (10:01)
[2023-04-11] MEDS: amLODIPine BESYLATE 10 MG TABLET (FP) PO SCH (10:01)
[2023-04-11] MEDS: POLYETHYLENE GLYCOL (HEALTHYLAX) 3350 17 GM PACKET PO SCH ×3 (10:01→13:52)
[2023-04-11] MEDS: HEPARIN NA (PORCINE) 5,000 UNITS/ML 1ML VIAL SQ SCH (10:01)
[2023-04-11] MEDS: ASPIRIN 81 MG CHEWABLE TABLETS PO SCH (10:01)
[2023-04-11] MEDS: PANTOPRAZOLE SODIUM 40 MG VIAL IVPUSH SCH (10:03)
[2023-04-11] MEDS ORDERED: SODIUM CHLORIDE 250 ML IV PRN (13:50)
[2023-04-11 15:37] VITALS: BP 124/61; PULSE 71; TEMP 98.6
== END 2023-04-11 16:09 | disposition home or self-care (01) ==
LOC: JER 05:15 → JERBED 14:42 → J4W 04-10 05:11
PROVIDERS: ADMIT Internal Medicine; ATTEND Family Medicine
PROC: 3E033NZ Introduction of Analgesics, Hypnotics, Sedatives into Peripheral Vein, Percutaneous Approach (ICD-10-PCS; principal; 2023-04-09)
PROC: 3E023GC Introduction of Other Therapeutic Substance into Muscle, Percutaneous Approach (ICD-10-PCS; 2023-04-09)
PROC: 3E033GC Introduction of Other Therapeutic Substance into Peripheral Vein, Percutaneous Approach (ICD-10-PCS; 2023-04-09)
DX: I12.0 Hypertensive chronic kidney disease with stage 5 chronic kidney disease or end stage renal disease (principal); N18.6 End stage renal disease; Z99.2 Dependence on renal dialysis; Z87.891 Personal history of nicotine dependence; R18.8 Other ascites
CPT/HCPCS: 0241U-QW; 36415; 70450-TC; 71045-TC-FY; 74177-TC; 76705-TC; 80053; 82150; 83690; 84443; 84484; 85025; 85610; 85730; 93005; 93010; 96372; 96374; 96375; 96376; 99285-25; G0378; J1644; Q9967

== ENCOUNTER 2023-04-13 22:16 | Inpatient (IN) | payer OTHER ==
[2023-04-13] MEDS ORDERED: ACETAMINOPHEN 1000 MG/100 ML BAG IVPB ONE (23:47)
[2023-04-13] MEDS ORDERED: FAMOTIDINE 20 MG/50 ML IVPB 20 MG/50 ML MG IVPB ONE ×2 (23:47→23:57)
[2023-04-13] MEDS ORDERED: ONDANSETRON 4 MG/2 ML VIAL IVPUSH ONE (23:47)
[2023-04-13] MEDS ORDERED: MAG HYDROX/AL HYDROX/SIMETH 30 ML UNIT-DOSE CUP PO ONE (23:47)
[2023-04-13] MEDS ORDERED: MAG HYDROX/AL HYDROX/SIMETH 30 ML UNIT-DOSE CUP ONE (23:56)
[2023-04-13] MEDS ORDERED: ACETAMINOPHEN INJECTION 100 ML IVPB ONE (23:56)
[2023-04-13] MEDS ORDERED: ONDANSETRON 4 MG/2 ML VIAL ONE (23:57)
[2023-04-14 01:07] LABS: BASO % 0.9 % (0-2.0); EOS % 1.5 % (0-4.5); HEMATOCRIT 34.2 % (35.4-49); HEMOGLOBIN 11.4 GM/dL (11.7-16.9); LYMPH % 11.5 % (8-40); MCH 28.1 pg (25.7-33.7); MCHC 33.3 g/dl (32.0-35.9); MEAN CELL VOLUME 84.6 fl (80-96); MEAN PLT VOLUME 7.6 fl (7.5-11.1); NEUT % 77.1 % (42.8-82.8); PLATELET COUNT 334 10^3/uL (134-434); RBC 4.05 M/mm3 (4.00-5.60); RDW 14.9 % (11.9-15.9)
[2023-04-14 01:17] LABS: INR 1.16 (0.83-1.09); PROTHROMBIN TIME (PATIENT) 13.4 SEC (9.7-13.0)
[2023-04-14 01:20] LABS: ACTIVATED PTT 34.6 SECONDS (25.2-36.5)
[2023-04-14 01:25] LABS: CHLORIDE 102 mmol/L (98-107); POTASSIUM 4.2 mmol/L (3.5-5.1); SODIUM 138 mmol/L (136-145)
[2023-04-14 01:27] LABS: CALCIUM 8.4 mg/dL (8.5-10.1)
[2023-04-14 01:28] LABS: ALBUMIN 3.2 g/dl (3.4-5.0); ANION GAP 10 MMOL/L (8-16); BLOOD UREA NITROGEN 24.2 mg/dL (7-18); CO2 26 mmol/L (21-32); GLUCOSE,RANDOM 85 mg/dL (74-106); LIPASE 1021 U/L (73-393); MAGNESIUM 2.1 mg/dL (1.8-2.4)
[2023-04-14 01:31] LABS: PHOSPHOROUS 4.2 mg/dL (2.5-4.9); SGOT/AST 15 U/L (15-37); SGPT/ALT 11 U/L (13-61)
[2023-04-14 01:32] LABS: BILIRUBIN,TOTAL 0.4 mg/dL (0.2-1); TOT PROT 6.7 g/dl (6.4-8.2)
[2023-04-14 01:33] LABS: ALK PHOS 146 U/L (45-117)
[2023-04-14 01:52] LABS: CREATININE 8.3 mg/dL (0.55-1.3)
[2023-04-14] MEDS ORDERED: SODIUM CHLORIDE 500 ML IV STA (02:52)
[2023-04-14] MEDS ORDERED: ONDANSETRON 4 MG/2 ML VIAL IVPUSH PRN (06:00)
[2023-04-14] MEDS ORDERED: ACETAMINOPHEN 1000 MG/100 ML BAG IVPB PRN (06:00)
[2023-04-14] MEDS ORDERED: HEPARIN NA (PORCINE) 5,000 UNITS/ML 1ML VIAL SQ SCH (06:00)
[2023-04-14 06:37] LABS: BASO % 1.3 % (0-2.0); EOS % 3.3 % (0-4.5); HEMATOCRIT 32.4 % (35.4-49); HEMOGLOBIN 10.9 GM/dL (11.7-16.9); LYMPH % 18.1 % (8-40); MCH 28.4 pg (25.7-33.7); MCHC 33.6 g/dl (32.0-35.9); MEAN CELL VOLUME 84.6 fl (80-96); MONO % 9.4 % (3.8-10.2); NEUT % 67.9 % (42.8-82.8); PLATELET COUNT 301 10^3/uL (134-434); RBC 3.83 M/mm3 (4.00-5.60); RDW 14.8 % (11.9-15.9); WHITE BLOOD COUNT 6.3 K/mm3 (4.0-10.0)
[2023-04-14] MEDS ORDERED: CALCIUM ACETATE 667 MG CAPSULE (FP) PO SCH (08:00)
[2023-04-14] MEDS: hydrALAZINE HCL 50 MG TABLET (FP) PO SCH ×2 (08:24→15:18)
[2023-04-14] MEDS ORDERED: POLYETHYLENE GLYCOL (HEALTHYLAX) 3350 17 GM PACKET PO SCH (10:00)
[2023-04-14] MEDS: HEPARIN NA (PORCINE) 5,000 UNITS/ML 1ML VIAL SQ SCH ×2 (10:52→22:00)
[2023-04-14] MEDS: METOPROLOL TARTRATE 25 MG TABLET (FP) PO SCH (10:53)
[2023-04-14] MEDS: SODIUM ZIRCONIUM CYCLOSILICATE (LOKELMA) 5 GM PACKET PO SCH (10:53)
[2023-04-14] MEDS: amLODIPine BESYLATE 10 MG TABLET (FP) PO SCH (10:53)
[2023-04-14] MEDS: POLYETHYLENE GLYCOL (HEALTHYLAX) 3350 17 GM PACKET PO SCH ×3 (10:53→21:59)
[2023-04-14] MEDS: LISINOPRIL 20 MG TABLET PO SCH (10:53)
[2023-04-14] MEDS: ISOSORBIDE MONONITRATE 30 MG TAB.SR.24H (FP) PO SCH (10:53)
[2023-04-14 12:19] VITALS: BMI 23.9
[2023-04-14] MEDS ORDERED: SODIUM CHLORIDE 250 ML IV PRN (15:16)
[2023-04-14] MEDS: ATORVASTATIN CA 40 MG TABLET (FP) PO SCH (22:02)
[2023-04-15] MEDS: hydrALAZINE HCL 50 MG TABLET (FP) PO SCH ×4 (00:16→22:25)
[2023-04-15] MEDS: METOPROLOL TARTRATE 25 MG TABLET (FP) PO SCH ×3 (00:16→22:24)
[2023-04-15] MEDS: POLYETHYLENE GLYCOL (HEALTHYLAX) 3350 17 GM PACKET PO SCH ×3 (06:34→22:24)
[2023-04-15] MEDS ORDERED: EPOETIN ALFA-EPBX 4,000 UNIT/ML VIAL IVPUSH ONE (08:00)
[2023-04-15 08:46] LABS: CHLORIDE 99 mmol/L (98-107); SODIUM 134 mmol/L (136-145)
[2023-04-15 08:48] LABS: ANION GAP 11 MMOL/L (8-16); BLOOD UREA NITROGEN 30.2 mg/dL (7-18); CALCIUM 7.9 mg/dL (8.5-10.1); CO2 24 mmol/L (21-32)
[2023-04-15 08:49] LABS: ALBUMIN 3.1 g/dl (3.4-5.0); GLUCOSE,RANDOM 112 mg/dL (74-106)
[2023-04-15 08:51] LABS: SGPT/ALT 8 U/L (13-61)
[2023-04-15 08:52] LABS: SGOT/AST 13 U/L (15-37)
[2023-04-15 08:53] LABS: BILIRUBIN,TOTAL 0.4 mg/dL (0.2-1); TOT PROT 6.4 g/dl (6.4-8.2)
[2023-04-15 08:54] LABS: ALK PHOS 133 U/L (45-117)
[2023-04-15 09:05] LABS: CREATININE 10.6 mg/dL (0.55-1.3)
[2023-04-15 09:11] LABS: HEMATOCRIT 33.6 % (35.4-49); MCH 27.9 pg (25.7-33.7); MCHC 32.8 g/dl (32.0-35.9); MEAN CELL VOLUME 84.9 fl (80-96); MEAN PLT VOLUME 7.8 fl (7.5-11.1); PLATELET COUNT 326 10^3/uL (134-434); RBC 3.95 M/mm3 (4.00-5.60); RDW 14.8 % (11.9-15.9); WHITE BLOOD COUNT 4.7 K/mm3 (4.0-10.0)
[2023-04-15] MEDS: HEPARIN NA (PORCINE) 5,000 UNITS/ML 1ML VIAL SQ SCH ×2 (10:03→22:22)
[2023-04-15] MEDS: SODIUM ZIRCONIUM CYCLOSILICATE (LOKELMA) 5 GM PACKET PO SCH (10:04)
[2023-04-15] MEDS: LISINOPRIL 20 MG TABLET PO SCH (10:05)
[2023-04-15] MEDS: amLODIPine BESYLATE 10 MG TABLET (FP) PO SCH (10:05)
[2023-04-15] MEDS: ISOSORBIDE MONONITRATE 30 MG TAB.SR.24H (FP) PO SCH (12:21)
[2023-04-15] MEDS: ATORVASTATIN CA 40 MG TABLET (FP) PO SCH (22:24)
[2023-04-16] MEDS: hydrALAZINE HCL 50 MG TABLET (FP) PO SCH ×3 (06:06→23:37)
[2023-04-16] MEDS: POLYETHYLENE GLYCOL (HEALTHYLAX) 3350 17 GM PACKET PO SCH ×3 (06:07→23:38)
[2023-04-16] MEDS: ISOSORBIDE MONONITRATE 30 MG TAB.SR.24H (FP) PO SCH (09:37)
[2023-04-16] MEDS: amLODIPine BESYLATE 10 MG TABLET (FP) PO SCH (09:37)
[2023-04-16] MEDS: METOPROLOL TARTRATE 25 MG TABLET (FP) PO SCH ×2 (09:37→23:37)
[2023-04-16] MEDS: HEPARIN NA (PORCINE) 5,000 UNITS/ML 1ML VIAL SQ SCH ×2 (09:37→23:38)
[2023-04-16] MEDS: PANTOPRAZOLE 40 MG TABLET PO SCH (09:40)
[2023-04-16] MEDS: LISINOPRIL 20 MG TABLET PO SCH (09:40)
[2023-04-16] MEDS ORDERED: SODIUM CHLORIDE 250 ML IV PRN (12:59)
[2023-04-16] MEDS: ATORVASTATIN CA 40 MG TABLET (FP) PO SCH (23:38)
[2023-04-17] MEDS: hydrALAZINE HCL 50 MG TABLET (FP) PO SCH ×3 (06:43→21:55)
[2023-04-17] MEDS: POLYETHYLENE GLYCOL (HEALTHYLAX) 3350 17 GM PACKET PO SCH ×3 (06:43→21:58)
[2023-04-17] MEDS ORDERED: PEG 3350/NA SULF BICARB CL/KCL 4000 ML SOLN.RECON PO ONE (10:00)
[2023-04-17] MEDS: HEPARIN NA (PORCINE) 5,000 UNITS/ML 1ML VIAL SQ SCH ×2 (12:35→21:57)
[2023-04-17] MEDS: amLODIPine BESYLATE 10 MG TABLET (FP) PO SCH (12:36)
[2023-04-17] MEDS: PANTOPRAZOLE 40 MG TABLET PO SCH (12:36)
[2023-04-17] MEDS: METOPROLOL TARTRATE 25 MG TABLET (FP) PO SCH ×2 (12:36→21:55)
[2023-04-17] MEDS: LISINOPRIL 20 MG TABLET PO SCH (12:36)
[2023-04-17] MEDS: ISOSORBIDE MONONITRATE 30 MG TAB.SR.24H (FP) PO SCH (12:42)
[2023-04-17] MEDS ORDERED: BISACODYL 5 MG TABLET.DR (FP) PO ONE (20:00)
[2023-04-17] MEDS: ATORVASTATIN CA 40 MG TABLET (FP) PO SCH (21:55)
[2023-04-18] MEDS: hydrALAZINE HCL 50 MG TABLET (FP) PO SCH ×3 (06:18→22:04)
[2023-04-18] MEDS: POLYETHYLENE GLYCOL (HEALTHYLAX) 3350 17 GM PACKET PO SCH ×2 (06:18→14:54)
[2023-04-18] MEDS: PANTOPRAZOLE 40 MG TABLET PO SCH ×2 (09:09→22:06)
[2023-04-18] MEDS: amLODIPine BESYLATE 10 MG TABLET (FP) PO SCH (09:09)
[2023-04-18] MEDS: ISOSORBIDE MONONITRATE 30 MG TAB.SR.24H (FP) PO SCH (09:09)
[2023-04-18] MEDS: METOPROLOL TARTRATE 25 MG TABLET (FP) PO SCH ×2 (09:09→22:06)
[2023-04-18] MEDS: LISINOPRIL 20 MG TABLET PO SCH (09:09)
[2023-04-18 10:00] LABS: BASO % 0.7 % (0-2.0); EOS % 3.5 % (0-4.5); HEMATOCRIT 34.7 % (35.4-49); HEMOGLOBIN 11.7 GM/dL (11.7-16.9); LYMPH % 17.3 % (8-40); MCH 28.6 pg (25.7-33.7); MCHC 33.7 g/dl (32.0-35.9); MEAN PLT VOLUME 7.7 fl (7.5-11.1); NEUT % 67.5 % (42.8-82.8); PLATELET COUNT 277 10^3/uL (134-434); RBC 4.09 M/mm3 (4.00-5.60); RDW 14.5 % (11.9-15.9); WHITE BLOOD COUNT 5.7 K/mm3 (4.0-10.0)
[2023-04-18 10:01] LABS: INR 1.16 (0.83-1.09); PROTHROMBIN TIME (PATIENT) 13.4 SEC (9.7-13.0)
[2023-04-18 10:22] LABS: CHLORIDE 102 mmol/L (98-107); POTASSIUM 3.9 mmol/L (3.5-5.1); SODIUM 141 mmol/L (136-145)
[2023-04-18 10:25] LABS: ANION GAP 9 MMOL/L (8-16); CO2 30 mmol/L (21-32); GLUCOSE,RANDOM 70 mg/dL (74-106)
[2023-04-18 10:26] LABS: ALBUMIN 3.2 g/dl (3.4-5.0); BLOOD UREA NITROGEN 15.7 mg/dL (7-18)
[2023-04-18 10:28] LABS: SGPT/ALT 8 U/L (13-61)
[2023-04-18 10:29] LABS: SGOT/AST 12 U/L (15-37)
[2023-04-18 10:30] LABS: ALK PHOS 132 U/L (45-117); BILIRUBIN,TOTAL 0.7 mg/dL (0.2-1); TOT PROT 6.7 g/dl (6.4-8.2)
[2023-04-18 10:32] LABS: CALCIUM 9.4 mg/dL (8.5-10.1); CREATININE 8.1 mg/dL (0.55-1.3)
[2023-04-18] MEDS ORDERED: ACETAMINOPHEN 1000 MG/100 ML BAG IVPB ONE (10:44)
[2023-04-18] MEDS ORDERED: KETAMINE HCL 500 MG/10 ML VIAL ONE (12:05)
[2023-04-18] MEDS ORDERED: LIDOCAINE VISCOUS 2% ORAL/TOP 15 ML UNIT-DOSE CUP ONE (12:06)
[2023-04-18] MEDS ORDERED: MIDAZOLAM HCL 2 MG/2 ML SINGLE DOSE VIAL ONE (12:06)
[2023-04-18] MEDS ORDERED: IRON SUCROSE INJECTION 200 MG in SODIUM CHLORIDE 90 ML IVPB ONE (15:30)
[2023-04-18] MEDS ORDERED: SODIUM CHLORIDE 250 ML IV PRN (16:56)
[2023-04-18] MEDS: ATORVASTATIN CA 40 MG TABLET (FP) PO SCH (22:06)
[2023-04-19] MEDS: hydrALAZINE HCL 50 MG TABLET (FP) PO SCH ×3 (06:49→21:54)
[2023-04-19 09:33] LABS: BASO % 1.3 % (0-2.0); EOS % 2.2 % (0-4.5); HEMATOCRIT 34.8 % (35.4-49); HEMOGLOBIN 11.6 GM/dL (11.7-16.9); MCH 28.1 pg (25.7-33.7); MCHC 33.4 g/dl (32.0-35.9); MEAN CELL VOLUME 84.2 fl (80-96); MEAN PLT VOLUME 8.2 fl (7.5-11.1); MONO % 8.1 % (3.8-10.2); NEUT % 77.4 % (42.8-82.8); PLATELET COUNT 264 10^3/uL (134-434); RBC 4.13 M/mm3 (4.00-5.60); RDW 14.5 % (11.9-15.9); WHITE BLOOD COUNT 8.8 K/mm3 (4.0-10.0)
[2023-04-19] MEDS: LISINOPRIL 20 MG TABLET PO SCH ×2 (09:37→13:53)
[2023-04-19] MEDS: POLYETHYLENE GLYCOL (HEALTHYLAX) 3350 17 GM PACKET PO SCH ×2 (09:37→13:49)
[2023-04-19] MEDS: amLODIPine BESYLATE 10 MG TABLET (FP) PO SCH ×2 (09:37→13:53)
[2023-04-19] MEDS: METOPROLOL TARTRATE 25 MG TABLET (FP) PO SCH ×3 (09:37→21:56)
[2023-04-19] MEDS: ISOSORBIDE MONONITRATE 30 MG TAB.SR.24H (FP) PO SCH ×2 (09:37→13:54)
[2023-04-19 09:38] LABS: INR 1.23 (0.83-1.09); PROTHROMBIN TIME (PATIENT) 14.2 SEC (9.7-13.0)
[2023-04-19] MEDS: PANTOPRAZOLE 40 MG TABLET PO SCH ×3 (09:38→21:55)
[2023-04-19 09:50] LABS: CHLORIDE 99 mmol/L (98-107); POTASSIUM 3.9 mmol/L (3.5-5.1); SODIUM 138 mmol/L (136-145)
[2023-04-19 10:16] LABS: CALCIUM 8.9 mg/dL (8.5-10.1)
[2023-04-19 10:18] LABS: ALBUMIN 3.2 g/dl (3.4-5.0); ANION GAP 12 MMOL/L (8-16); CO2 27 mmol/L (21-32); GLUCOSE,RANDOM 143 mg/dL (74-106)
[2023-04-19 10:21] LABS: SGOT/AST 10 U/L (15-37); SGPT/ALT 6 U/L (13-61)
[2023-04-19 10:22] LABS: BILIRUBIN,TOTAL 0.5 mg/dL (0.2-1); TOT PROT 6.7 g/dl (6.4-8.2)
[2023-04-19 10:24] LABS: ALK PHOS 129 U/L (45-117)
[2023-04-19 10:28] LABS: CREATININE 10.4 mg/dL (0.55-1.3)
[2023-04-19 12:19] VITALS: RESP 18
[2023-04-19] MEDS: ATORVASTATIN CA 40 MG TABLET (FP) PO SCH (21:55)
[2023-04-20] MEDS: hydrALAZINE HCL 50 MG TABLET (FP) PO SCH ×3 (06:27→23:14)
[2023-04-20] MEDS: POLYETHYLENE GLYCOL (HEALTHYLAX) 3350 17 GM PACKET PO SCH (10:46)
[2023-04-20] MEDS: LISINOPRIL 20 MG TABLET PO SCH (10:47)
[2023-04-20] MEDS: ISOSORBIDE MONONITRATE 30 MG TAB.SR.24H (FP) PO SCH (10:47)
[2023-04-20] MEDS: METOPROLOL TARTRATE 25 MG TABLET (FP) PO SCH ×2 (10:47→23:14)
[2023-04-20] MEDS: amLODIPine BESYLATE 10 MG TABLET (FP) PO SCH (10:47)
[2023-04-20] MEDS: PANTOPRAZOLE 40 MG TABLET PO SCH ×2 (10:47→23:14)
[2023-04-20] MEDS: ATORVASTATIN CA 40 MG TABLET (FP) PO SCH (23:13)
[2023-04-21 08:01] VITALS: BP 106/56; PULSE 86; TEMP 98.7
[2023-04-21] MEDS: hydrALAZINE HCL 50 MG TABLET (FP) PO SCH (08:19)
[2023-04-21] MEDS: PANTOPRAZOLE 40 MG TABLET PO SCH (09:41)
[2023-04-21] MEDS: LISINOPRIL 20 MG TABLET PO SCH (09:41)
[2023-04-21] MEDS: ISOSORBIDE MONONITRATE 30 MG TAB.SR.24H (FP) PO SCH (09:41)
[2023-04-21] MEDS: METOPROLOL TARTRATE 25 MG TABLET (FP) PO SCH (09:42)
[2023-04-21] MEDS: amLODIPine BESYLATE 10 MG TABLET (FP) PO SCH (09:42)
[2023-04-21] MEDS: HEPARIN NA (PORCINE) 5,000 UNITS/ML 1ML VIAL SQ SCH (09:42)
[2023-04-21] MEDS: POLYETHYLENE GLYCOL (HEALTHYLAX) 3350 17 GM PACKET PO SCH (13:04)
== END 2023-04-21 13:55 | disposition home or self-care (01) | DRG 383 ==
LOC: JER 22:16 → JERBED 23:29 → J8W 04-14 06:49
PROVIDERS: ADMIT Internal Medicine; ATTEND Family Medicine
PROC: 5A1D70Z Performance of Urinary Filtration, Intermittent, Less than 6 Hours Per Day (ICD-10-PCS; 2023-04-14)
PROC: 5A1D70Z Performance of Urinary Filtration, Intermittent, Less than 6 Hours Per Day (ICD-10-PCS; 2023-04-16)
PROC: 0DBK8ZX Excision of Ascending Colon, Via Natural or Artificial Opening Endoscopic, Diagnostic (ICD-10-PCS; 2023-04-18)
PROC: 0DBP8ZX Excision of Rectum, Via Natural or Artificial Opening Endoscopic, Diagnostic (ICD-10-PCS; 2023-04-18)
PROC: 0W3P8ZZ Control Bleeding in Gastrointestinal Tract, Via Natural or Artificial Opening Endoscopic (ICD-10-PCS; 2023-04-18)
PROC: 5A1D70Z Performance of Urinary Filtration, Intermittent, Less than 6 Hours Per Day (ICD-10-PCS; 2023-04-18)
PROC: 0DB68ZX Excision of Stomach, Via Natural or Artificial Opening Endoscopic, Diagnostic (ICD-10-PCS; principal; 2023-04-18 12:30)
DX: K26.9 Duodenal ulcer, unspecified as acute or chronic, without hemorrhage or perforation (principal); N18.6 End stage renal disease; I50.32 Chronic diastolic (congestive) heart failure; I13.2 Hypertensive heart and chronic kidney disease with heart failure and with stage 5 chronic kidney disease, or end stage renal disease; Z99.2 Dependence on renal dialysis; K21.9 Gastro-esophageal reflux disease without esophagitis; D64.9 Anemia, unspecified; R91.1 Solitary pulmonary nodule; E87.5 Hyperkalemia; K59.00 Constipation, unspecified; K29.70 Gastritis, unspecified, without bleeding; K29.80 Duodenitis without bleeding; K57.30 Diverticulosis of large intestine without perforation or abscess without bleeding; K64.8 Other hemorrhoids; R11.2 Nausea with vomiting, unspecified; R63.4 Abnormal weight loss; Z68.23 Body mass index [BMI] 23.0-23.9, adult
CPT/HCPCS: 0241U-QW; 36415; 71045-TC-FY; 74177-TC; 74181-TC; 76705-TC; 80053; 82941; 83605; 83690; 83735; 84100; 85025; 85027; 85045; 85610; 85730; 86140; 86301; 86850; 86900; 86901; 88305-TC; 93005; 93010; 93975; 94010; 99285-25; C9803-CS; J1644; J1756; Q5106; U0003; U0005

== ENCOUNTER 2023-04-24 18:46 | Emergency (ER) | payer OTHER ==
[2023-04-24 18:52] VITALS: BMI 23.6
[2023-04-24] MEDS ORDERED: ACETAMINOPHEN 1000 MG/100 ML BAG IVPB ONE (19:42)
[2023-04-24] MEDS ORDERED: PANTOPRAZOLE SODIUM 40 MG VIAL IVPUSH ONE (19:42)
[2023-04-24] MEDS ORDERED: FAMOTIDINE 20 MG/50 ML IVPB 20 MG/50 ML MG IVPB ONE ×2 (19:42→20:18)
[2023-04-24] MEDS ORDERED: MAG HYDROX/AL HYDROX/SIMETH 30 ML UNIT-DOSE CUP PO ONE (19:43)
[2023-04-24] MEDS ORDERED: MAG HYDROX/AL HYDROX/SIMETH 30 ML UNIT-DOSE CUP ONE (20:18)
[2023-04-24] MEDS ORDERED: PANTOPRAZOLE SODIUM 40 MG VIAL ONE (20:18)
[2023-04-24] MEDS ORDERED: ACETAMINOPHEN INJECTION 100 ML IVPB ONE (20:18)
[2023-04-24 20:24] LABS: VENOUS BASE EXCESS 1.4 mmol/L (-2-2); VENOUS O2 SATURATION 26.9 % (70-80); VENOUS PCO2 58.9 mmHg (38-52); VENOUS PH 7.307 (7.310-7.410)
[2023-04-24 20:37] LABS: BASO % 0.9 % (0-2.0); EOS % 1.8 % (0-4.5); HEMATOCRIT 34.5 % (35.4-49); HEMOGLOBIN 11.3 GM/dL (11.7-16.9); LYMPH % 15.6 % (8-40); MCH 28.3 pg (25.7-33.7); MCHC 32.6 g/dl (32.0-35.9); MEAN CELL VOLUME 86.7 fl (80-96); MEAN PLT VOLUME 7.9 fl (7.5-11.1); MONO % 10.8 % (3.8-10.2); NEUT % 70.9 % (42.8-82.8); PLATELET COUNT 225 10^3/uL (134-434); RBC 3.98 M/mm3 (4.00-5.60); RDW 15.1 % (11.9-15.9); WHITE BLOOD COUNT 6.4 K/mm3 (4.0-10.0)
[2023-04-24 20:44] LABS: INR 1.1 (0.83-1.09); PROTHROMBIN TIME (PATIENT) 12.8 SEC (9.7-13.0)
[2023-04-24 20:47] LABS: ACTIVATED PTT 33.5 SECONDS (25.2-36.5)
[2023-04-24 20:49] LABS: POTASSIUM 4.3 mmol/L (3.5-5.1)
[2023-04-24 20:51] LABS: CALCIUM 8.9 mg/dL (8.5-10.1)
[2023-04-24 20:52] LABS: ALBUMIN 3.4 g/dl (3.4-5.0); BLOOD UREA NITROGEN 15.3 mg/dL (7-18)
[2023-04-24 20:55] LABS: CREATININE 6.3 mg/dL (0.55-1.3); MAGNESIUM 1.9 mg/dL (1.8-2.4)
[2023-04-24 20:56] LABS: BILIRUBIN,TOTAL 0.3 mg/dL (0.2-1); TOT PROT 7.4 g/dl (6.4-8.2)
[2023-04-25 02:56] VITALS: BP 102/64; PULSE 83; RESP 15; TEMP 98.2
== END 2023-04-25 06:42 | disposition home or self-care (01) ==
LOC: JER 18:46
PROC: 3E033GC Introduction of Other Therapeutic Substance into Peripheral Vein, Percutaneous Approach (ICD-10-PCS; principal; 2023-04-24)
PROC: 3E033NZ Introduction of Analgesics, Hypnotics, Sedatives into Peripheral Vein, Percutaneous Approach (ICD-10-PCS; 2023-04-24)
PROC: 3E033GC Introduction of Other Therapeutic Substance into Peripheral Vein, Percutaneous Approach (ICD-10-PCS; 2023-04-24)
DX: R10.13 Epigastric pain (principal); R11.2 Nausea with vomiting, unspecified; Z20.822 Contact with and (suspected) exposure to COVID-19
CPT/HCPCS: 0241U-QW; 36415; 71045-TC-FY; 80053; 82803; 83605; 83690; 83735; 84484; 85025; 85610; 85730; 93005; 93010; 99285-25

== ENCOUNTER 2023-04-28 19:24 | Observation (INO) | payer OTHER ==
[2023-04-28 19:34] VITALS: BMI 28.8
[2023-04-28] MEDS ORDERED: MAG HYDROX/AL HYDROX/SIMETH -MYLANTA- ORAL SUSPENSION PO ONE (20:06)
[2023-04-28] MEDS ORDERED: PANTOPRAZOLE SODIUM 40 MG VIAL IVPUSH ONE (20:06)
[2023-04-28] MEDS ORDERED: PANTOPRAZOLE SODIUM 40 MG VIAL ONE (20:30)
[2023-04-28] MEDS ORDERED: MAG HYDROX/AL HYDROX/SIMETH 30 ML UNIT-DOSE CUP ONE (20:30)
[2023-04-28 20:38] LABS: EOS % 3.3 % (0-4.5); HEMATOCRIT 30.1 % (35.4-49); HEMOGLOBIN 9.8 GM/dL (11.7-16.9); LYMPH % 17.9 % (8-40); MCHC 32.5 g/dl (32.0-35.9); MEAN PLT VOLUME 7.9 fl (7.5-11.1); MONO % 12.1 % (3.8-10.2); NEUT % 65.7 % (42.8-82.8); PLATELET COUNT 219 10^3/uL (134-434); RDW 15.6 % (11.9-15.9); WHITE BLOOD COUNT 6.3 K/mm3 (4.0-10.0)
[2023-04-28] MEDS ORDERED: SODIUM CHLORIDE 0.9% 500 ML INFUS.BAG IV ONE (20:53)
[2023-04-28 20:55] LABS: CHLORIDE 110 mmol/L (98-107); POTASSIUM 4.5 mmol/L (3.5-5.1); SODIUM 143 mmol/L (136-145)
[2023-04-28 20:58] LABS: ALBUMIN 3.2 g/dl (3.4-5.0); ANION GAP 6 MMOL/L (8-16); BLOOD UREA NITROGEN 39.1 mg/dL (7-18); CALCIUM 8.4 mg/dL (8.5-10.1); CO2 27 mmol/L (21-32); GLUCOSE,RANDOM 76 mg/dL (74-106); LIPASE 303 U/L (73-393)
[2023-04-28 21:01] LABS: SGOT/AST 10 U/L (15-37); SGPT/ALT 11 U/L (13-61)
[2023-04-28 21:03] LABS: BILIRUBIN,TOTAL 0.4 mg/dL (0.2-1); TOT PROT 6.5 g/dl (6.4-8.2)
[2023-04-28 21:04] LABS: ALK PHOS 126 U/L (45-117)
[2023-04-28 21:05] LABS: CREATININE 9.9 mg/dL (0.55-1.3)
[2023-04-28 21:23] LABS: MAGNESIUM 2.2 mg/dL (1.8-2.4)
[2023-04-29] MEDS ORDERED: morphine CARPU-JECT 2 MG/1 ML DISP.SYRIN IVPUSH ONE (00:50)
[2023-04-29] MEDS ORDERED: ACETAMINOPHEN 1000 MG/100 ML BAG IVPB PRN (02:22)
[2023-04-29] MEDS ORDERED: ACETAMINOPHEN 325 MG TABLET (FP) PO PRN (02:22)
[2023-04-29 02:34] LABS: PHOSPHOROUS 2.9 mg/dL (2.5-4.9)
[2023-04-29] MEDS ORDERED: ONDANSETRON *ODT* 4 MG TABLET SL PRN (03:07)
[2023-04-29] MEDS ORDERED: POLYETHYLENE GLYCOL (HEALTHYLAX) 3350 17 GM PACKET PO SCH (06:00)
[2023-04-29] MEDS ORDERED: POLYETHYLENE GLYCOL (HEALTHYLAX) 3350 17 GM PACKET ONE (06:21)
[2023-04-29] MEDS ORDERED: hydrALAZINE HCL 50 MG TABLET (FP) ONE (06:28)
[2023-04-29] MEDS: hydrALAZINE HCL 50 MG TABLET (FP) PO SCH ×3 (06:32→22:07)
[2023-04-29 06:44] LABS: BASO % 2.1 % (0-2.0); EOS % 4.6 % (0-4.5); HEMATOCRIT 29.4 % (35.4-49); MCH 29.1 pg (25.7-33.7); MCHC 34.1 g/dl (32.0-35.9); MEAN CELL VOLUME 85.3 fl (80-96); MEAN PLT VOLUME 8.3 fl (7.5-11.1); MONO % 11.1 % (3.8-10.2); NEUT % 59.2 % (42.8-82.8); PLATELET COUNT 218 10^3/uL (134-434); RBC 3.44 M/mm3 (4.00-5.60); RDW 15.3 % (11.9-15.9); RETICULOCYTES 0.61 % (0.5-1.5); WHITE BLOOD COUNT 5.9 K/mm3 (4.0-10.0)
[2023-04-29 06:47] LABS: INR 1.1 (0.83-1.09); PROTHROMBIN TIME (PATIENT) 12.7 SEC (9.7-13.0)
[2023-04-29 06:57] LABS: IRON SERUM 93 ug/dL (50-175); TOTAL IRON BINDING CAPACITY 165 ug/dL (250-450)
[2023-04-29] MEDS ORDERED: SODIUM CHLORIDE 250 ML IV PRN (07:01)
[2023-04-29] MEDS ORDERED: EPOETIN ALFA-EPBX 10,000 UNIT/ML VIAL SQ ONE (07:01)
[2023-04-29] MEDS ORDERED: METOPROLOL TARTRATE 25 MG TABLET (FP) ONE (11:17)
[2023-04-29] MEDS ORDERED: PANTOPRAZOLE 40 MG TABLET PO ONE (11:17)
[2023-04-29] MEDS ORDERED: amLODIPine BESYLATE 10 MG TABLET (FP) ONE (11:18)
[2023-04-29] MEDS ORDERED: ISOSORBIDE MONONITRATE 30 MG TAB.SR.24H (FP) PO ONE (11:18)
[2023-04-29] MEDS ORDERED: LISINOPRIL 20 MG TABLET ONE (11:18)
[2023-04-29 12:48] LABS: AMYLASE 202 U/L (25-115)
[2023-04-29 12:50] LABS: LIPASE 276 U/L (73-393)
[2023-04-29] MEDS: LISINOPRIL 20 MG TABLET PO SCH (13:02)
[2023-04-29] MEDS: amLODIPine BESYLATE 10 MG TABLET (FP) PO SCH (13:02)
[2023-04-29] MEDS: METOPROLOL TARTRATE 25 MG TABLET (FP) PO SCH ×2 (13:02→22:06)
[2023-04-29] MEDS: CALCIUM ACETATE 667 MG CAPSULE (FP) PO SCH ×3 (13:02→17:51)
[2023-04-29] MEDS: ISOSORBIDE MONONITRATE 30 MG TAB.SR.24H (FP) PO SCH (13:02)
[2023-04-29] MEDS: PANTOPRAZOLE 40 MG TABLET PO SCH ×2 (13:03→22:06)
[2023-04-29] MEDS: ATORVASTATIN CA 40 MG TABLET (FP) PO SCH (22:06)
[2023-04-29] MEDS: POLYETHYLENE GLYCOL (HEALTHYLAX) 3350 17 GM PACKET PO SCH (22:06)
[2023-04-30] MEDS: hydrALAZINE HCL 50 MG TABLET (FP) PO SCH ×3 (06:17→21:16)
[2023-04-30] MEDS: CALCIUM ACETATE 667 MG CAPSULE (FP) PO SCH ×3 (09:02→17:58)
[2023-04-30] MEDS: PANTOPRAZOLE 40 MG TABLET PO SCH ×2 (09:07→21:16)
[2023-04-30] MEDS: METOPROLOL TARTRATE 25 MG TABLET (FP) PO SCH ×2 (10:19→21:16)
[2023-04-30] MEDS: ISOSORBIDE MONONITRATE 30 MG TAB.SR.24H (FP) PO SCH (10:20)
[2023-04-30] MEDS: LISINOPRIL 20 MG TABLET PO SCH (10:20)
[2023-04-30] MEDS: amLODIPine BESYLATE 10 MG TABLET (FP) PO SCH (10:20)
[2023-04-30] MEDS: POLYETHYLENE GLYCOL (HEALTHYLAX) 3350 17 GM PACKET PO SCH ×3 (10:25→21:24)
[2023-04-30 10:54] LABS: CHLORIDE 106 mmol/L (98-107); POTASSIUM 4.4 mmol/L (3.5-5.1); SODIUM 141 mmol/L (136-145)
[2023-04-30 11:10] LABS: GLUCOSE,RANDOM 70 mg/dL (74-106)
[2023-04-30 11:12] LABS: ANION GAP 5 MMOL/L (8-16); BLOOD UREA NITROGEN 27.5 mg/dL (7-18); CALCIUM 8.7 mg/dL (8.5-10.1); CO2 31 mmol/L (21-32); MAGNESIUM 2.3 mg/dL (1.8-2.4); PHOSPHOROUS 3.2 mg/dL (2.5-4.9)
[2023-04-30 11:18] LABS: CREATININE 8.6 mg/dL (0.55-1.3)
[2023-04-30] MEDS: ATORVASTATIN CA 40 MG TABLET (FP) PO SCH (21:16)
[2023-05-01] MEDS: hydrALAZINE HCL 50 MG TABLET (FP) PO SCH ×3 (06:41→15:08)
[2023-05-01] MEDS ORDERED: SUCRALFATE 1 GM/10 ML UNIT DOSE CUPS PO SCH ×2 (07:30→16:30)
[2023-05-01] MEDS ORDERED: SODIUM CHLORIDE 250 ML IV PRN (08:30)
[2023-05-01] MEDS ORDERED: EPOETIN ALFA-EPBX 10,000 UNIT/ML VIAL SQ ONE (09:00)
[2023-05-01 09:01] LABS: HEMATOCRIT 32.3 % (35.4-49); MCH 28.9 pg (25.7-33.7); MEAN CELL VOLUME 85.1 fl (80-96); MEAN PLT VOLUME 8.5 fl (7.5-11.1); PLATELET COUNT 248 10^3/uL (134-434); RBC 3.79 M/mm3 (4.00-5.60); RDW 15.1 % (11.9-15.9); WHITE BLOOD COUNT 5.6 K/mm3 (4.0-10.0)
[2023-05-01 09:20] LABS: CHLORIDE 103 mmol/L (98-107); POTASSIUM 3.9 mmol/L (3.5-5.1); SODIUM 140 mmol/L (136-145)
[2023-05-01 09:23] LABS: ANION GAP 8 MMOL/L (8-16); CALCIUM 8.7 mg/dL (8.5-10.1); CO2 29 mmol/L (21-32)
[2023-05-01 09:24] LABS: BLOOD UREA NITROGEN 28.7 mg/dL (7-18); GLUCOSE,RANDOM 107 mg/dL (74-106)
[2023-05-01 10:01] LABS: CREATININE 8.6 mg/dL (0.55-1.3)
[2023-05-01 11:36] VITALS: RESP 18; TEMP 98.1
[2023-05-01] MEDS: POLYETHYLENE GLYCOL (HEALTHYLAX) 3350 17 GM PACKET PO SCH ×2 (11:50→11:52)
[2023-05-01] MEDS: LISINOPRIL 20 MG TABLET PO SCH (11:50)
[2023-05-01] MEDS: CALCIUM ACETATE 667 MG CAPSULE (FP) PO SCH ×2 (11:50→11:54)
[2023-05-01] MEDS: ISOSORBIDE MONONITRATE 30 MG TAB.SR.24H (FP) PO SCH (11:51)
[2023-05-01] MEDS: METOPROLOL TARTRATE 25 MG TABLET (FP) PO SCH (11:51)
[2023-05-01] MEDS: PANTOPRAZOLE 40 MG TABLET PO SCH (11:51)
[2023-05-01] MEDS: amLODIPine BESYLATE 10 MG TABLET (FP) PO SCH (11:51)
[2023-05-01 15:13] VITALS: BP 102/61; PULSE 77
== END 2023-05-01 16:18 | disposition home or self-care (01) ==
LOC: JER 19:24 → UNDOADMOB 04-29 01:05 → JERBED 04-29 01:05 → INTOOBSV 04-29 01:05 → JERBED 04-29 11:12 → J6S 04-29 15:21
PROVIDERS: ADMIT Internal Medicine; ATTEND Family Medicine
PROC: 3E033NZ Introduction of Analgesics, Hypnotics, Sedatives into Peripheral Vein, Percutaneous Approach (ICD-10-PCS; principal; 2023-04-29)
PROC: 3E0337Z Introduction of Electrolytic and Water Balance Substance into Peripheral Vein, Percutaneous Approach (ICD-10-PCS; 2023-04-29)
PROC: 3E033GC Introduction of Other Therapeutic Substance into Peripheral Vein, Percutaneous Approach (ICD-10-PCS; 2023-04-29)
PROC: 3E013GC Introduction of Other Therapeutic Substance into Subcutaneous Tissue, Percutaneous Approach (ICD-10-PCS; 2023-04-29)
DX: R10.84 Generalized abdominal pain (principal); E11.22 Type 2 diabetes mellitus with diabetic chronic kidney disease; I12.0 Hypertensive chronic kidney disease with stage 5 chronic kidney disease or end stage renal disease; N18.6 End stage renal disease; F17.210 Nicotine dependence, cigarettes, uncomplicated; Z99.2 Dependence on renal dialysis; R18.8 Other ascites; D64.9 Anemia, unspecified; K26.9 Duodenal ulcer, unspecified as acute or chronic, without hemorrhage or perforation; K29.60 Other gastritis without bleeding; I87.1 Compression of vein; K59.00 Constipation, unspecified; Z95.820 Peripheral vascular angioplasty status with implants and grafts; Z86.14 Personal history of Methicillin resistant Staphylococcus aureus infection
CPT/HCPCS: 0241U-QW; 36415; 71046-TC-FY; 74176-TC; 80048; 80053; 82150; 82784; 83540; 83550; 83605; 83690; 83735; 84100; 84155; 84165; 84484; 85025; 85027; 85045; 85384; 85610; 85730; 86140; 86334; 86803; 86850; 86900; 86901; 87340; 93005; 93010; 96372; 96374; 96375; 99285-25; G0378; Q5106

== ENCOUNTER 2023-05-03 19:25 | Observation (INO) | payer OTHER ==
[2023-05-03 19:46] VITALS: BMI 26.9
[2023-05-03] MEDS ORDERED: ACETAMINOPHEN 1000 MG/100 ML BAG IVPB ONE (20:46)
[2023-05-03] MEDS ORDERED: FAMOTIDINE 20 MG/50 ML IVPB 20 MG/50 ML MG IVPB ONE ×2 (20:46→22:13)
[2023-05-03] MEDS ORDERED: ONDANSETRON 4 MG/2 ML VIAL IVPUSH ONE (20:47)
[2023-05-03] MEDS ORDERED: MAG HYDROX/AL HYDROX/SIMETH 30 ML UNIT-DOSE CUP PO ONE (20:47)
[2023-05-03 21:52] LABS: BASO % 1.2 % (0-2.0); EOS % 4.1 % (0-4.5); HEMATOCRIT 32.8 % (35.4-49); HEMOGLOBIN 10.9 GM/dL (11.7-16.9); LYMPH % 14.1 % (8-40); MCH 28.9 pg (25.7-33.7); MCHC 33.2 g/dl (32.0-35.9); MEAN CELL VOLUME 87.3 fl (80-96); MEAN PLT VOLUME 7.5 fl (7.5-11.1); MONO % 10.7 % (3.8-10.2); NEUT % 69.9 % (42.8-82.8); PLATELET COUNT 243 10^3/uL (134-434); RBC 3.75 M/mm3 (4.00-5.60); RDW 15.3 % (11.9-15.9); WHITE BLOOD COUNT 6.6 K/mm3 (4.0-10.0)
[2023-05-03] MEDS ORDERED: MAG HYDROX/AL HYDROX/SIMETH 30 ML UNIT-DOSE CUP ONE (22:13)
[2023-05-03] MEDS ORDERED: ACETAMINOPHEN INJECTION 100 ML IVPB ONE (22:13)
[2023-05-03] MEDS ORDERED: ONDANSETRON 4 MG/2 ML VIAL ONE (22:13)
[2023-05-03 22:26] LABS: ALBUMIN 3.4 g/dl (3.4-5.0); CALCIUM 8.7 mg/dL (8.5-10.1)
[2023-05-03 22:27] LABS: BLOOD UREA NITROGEN 12.7 mg/dL (7-18)
[2023-05-03 22:29] LABS: CREATININE 5.6 mg/dL (0.55-1.3)
[2023-05-03 22:31] LABS: BILIRUBIN,TOTAL 0.3 mg/dL (0.2-1)
[2023-05-04] MEDS ORDERED: ACETAMINOPHEN 1000 MG/100 ML BAG IVPB PRN (09:28)
[2023-05-04] MEDS ORDERED: ONDANSETRON 4 MG/2 ML VIAL IVPUSH PRN (09:28)
[2023-05-04] MEDS ORDERED: PANTOPRAZOLE SODIUM 40 MG VIAL IVPUSH SCH (10:00)
[2023-05-04] MEDS: amLODIPine BESYLATE 5 MG TABLET (FP) PO SCH (10:36)
[2023-05-04] MEDS: SUCRALFATE 1 GM TABLET (FP) PO SCH ×4 (14:22→21:04)
[2023-05-05] MEDS: POLYETHYLENE GLYCOL (HEALTHYLAX) 3350 17 GM PACKET PO SCH (09:47)
[2023-05-05] MEDS: SUCRALFATE 1 GM TABLET (FP) PO SCH ×4 (09:50→21:16)
[2023-05-05] MEDS: amLODIPine BESYLATE 5 MG TABLET (FP) PO SCH (09:50)
[2023-05-05] MEDS: PANTOPRAZOLE 40 MG TABLET PO SCH (09:50)
[2023-05-05] MEDS ORDERED: SODIUM CHLORIDE 250 ML IV PRN (15:44)
[2023-05-06] MEDS: SUCRALFATE 1 GM TABLET (FP) PO SCH (10:49)
[2023-05-06] MEDS: POLYETHYLENE GLYCOL (HEALTHYLAX) 3350 17 GM PACKET PO SCH (10:49)
[2023-05-06] MEDS: amLODIPine BESYLATE 5 MG TABLET (FP) PO SCH (10:49)
[2023-05-06] MEDS: PANTOPRAZOLE 40 MG TABLET PO SCH (10:50)
[2023-05-06 15:53] VITALS: PULSE 86; TEMP 97.8
[2023-05-06 16:54] VITALS: BP 157/86; RESP 20
== END 2023-05-06 18:18 | disposition home or self-care (01) ==
LOC: JER 19:25 → INTOOBSV 05-04 05:13 → UNDOADMOB 05-04 05:13 → JERBED 05-04 05:13 → J8W 05-04 07:01 → JERBED 05-05 11:52 → J8W 05-05 11:52
PROVIDERS: ADMIT Family Medicine; ATTEND Family Medicine
PROC: 3E033GC Introduction of Other Therapeutic Substance into Peripheral Vein, Percutaneous Approach (ICD-10-PCS; principal; 2023-05-05)
PROC: 3E033NZ Introduction of Analgesics, Hypnotics, Sedatives into Peripheral Vein, Percutaneous Approach (ICD-10-PCS; 2023-05-05)
DX: R10.84 Generalized abdominal pain (principal); I13.2 Hypertensive heart and chronic kidney disease with heart failure and with stage 5 chronic kidney disease, or end stage renal disease; N18.6 End stage renal disease; I50.9 Heart failure, unspecified; Z99.2 Dependence on renal dialysis; K21.9 Gastro-esophageal reflux disease without esophagitis; E87.5 Hyperkalemia; D35.00 Benign neoplasm of unspecified adrenal gland; K26.9 Duodenal ulcer, unspecified as acute or chronic, without hemorrhage or perforation; K59.00 Constipation, unspecified; K29.80 Duodenitis without bleeding; Z98.61 Coronary angioplasty status
CPT/HCPCS: 36415; 74174-TC; 80053; 83605; 83690; 85025; 87635; 93005; 93010; 96365; 96375; 99285-25; G0378

== ENCOUNTER 2023-05-08 01:00 | Emergency (ER) | payer OTHER ==
[2023-05-08 01:06] VITALS: RESP 18; BMI 26.6
[2023-05-08] MEDS ORDERED: ONDANSETRON 4 MG/2 ML VIAL IVPUSH ONE (01:19)
[2023-05-08] MEDS ORDERED: FAMOTIDINE 20 MG/50 ML IVPB 20 MG/50 ML MG IVPB ONE ×2 (01:19→01:58)
[2023-05-08] MEDS ORDERED: MAG HYDROX/AL HYDROX/SIMETH 30 ML UNIT-DOSE CUP PO ONE (01:27)
[2023-05-08] MEDS ORDERED: ACETAMINOPHEN 1000 MG/100 ML BAG IVPB ONE (01:27)
[2023-05-08] MEDS ORDERED: MAG HYDROX/AL HYDROX/SIMETH 30 ML UNIT-DOSE CUP ONE (01:58)
[2023-05-08] MEDS ORDERED: ACETAMINOPHEN INJECTION 100 ML IVPB ONE (01:58)
[2023-05-08] MEDS ORDERED: ONDANSETRON 4 MG/2 ML VIAL ONE (01:58)
[2023-05-08 02:13] LABS: BASO % 0.8 % (0-2.0); EOS % 3.9 % (0-4.5); HEMATOCRIT 34.9 % (35.4-49); HEMOGLOBIN 11.3 GM/dL (11.7-16.9); LYMPH % 15.2 % (8-40); MCH 28.3 pg (25.7-33.7); MCHC 32.5 g/dl (32.0-35.9); MEAN CELL VOLUME 87.1 fl (80-96); MEAN PLT VOLUME 7.4 fl (7.5-11.1); MONO % 8.8 % (3.8-10.2); NEUT % 71.3 % (42.8-82.8); PLATELET COUNT 223 10^3/uL (134-434); RBC 4.01 M/mm3 (4.00-5.60); WHITE BLOOD COUNT 7.4 K/mm3 (4.0-10.0)
[2023-05-08 02:21] LABS: INR 1.13 (0.83-1.09); PROTHROMBIN TIME (PATIENT) 13.1 SEC (9.7-13.0)
[2023-05-08 02:24] LABS: ACTIVATED PTT 36.4 SECONDS (25.2-36.5)
[2023-05-08 02:29] LABS: CHLORIDE 102 mmol/L (98-107); POTASSIUM 4.2 mmol/L (3.5-5.1); SODIUM 143 mmol/L (136-145)
[2023-05-08 02:31] LABS: CALCIUM 8.8 mg/dL (8.5-10.1)
[2023-05-08 02:32] LABS: ALBUMIN 3.7 g/dl (3.4-5.0); ANION GAP 9 MMOL/L (8-16); BLOOD UREA NITROGEN 23.3 mg/dL (7-18); CO2 32 mmol/L (21-32); GLUCOSE,RANDOM 87 mg/dL (74-106); LIPASE 319 U/L (73-393); MAGNESIUM 2.5 mg/dL (1.8-2.4)
[2023-05-08 02:34] LABS: SGPT/ALT 7 U/L (13-61)
[2023-05-08 02:35] LABS: PHOSPHOROUS 3.8 mg/dL (2.5-4.9); SGOT/AST 11 U/L (15-37)
[2023-05-08 02:36] LABS: BILIRUBIN,TOTAL 0.4 mg/dL (0.2-1); TOT PROT 7.3 g/dl (6.4-8.2)
[2023-05-08 02:37] LABS: ALK PHOS 158 U/L (45-117)
[2023-05-08 02:43] LABS: CREATININE 8.8 mg/dL (0.55-1.3)
[2023-05-08 05:37] VITALS: BP 127/84; PULSE 81; TEMP 96.7
== END 2023-05-08 06:17 | disposition home or self-care (01) ==
LOC: JER 01:00
PROC: 3E033GC Introduction of Other Therapeutic Substance into Peripheral Vein, Percutaneous Approach (ICD-10-PCS; principal; 2023-05-08)
PROC: 3E033NZ Introduction of Analgesics, Hypnotics, Sedatives into Peripheral Vein, Percutaneous Approach (ICD-10-PCS; 2023-05-08)
PROC: 3E033GC Introduction of Other Therapeutic Substance into Peripheral Vein, Percutaneous Approach (ICD-10-PCS; 2023-05-08)
DX: R10.84 Generalized abdominal pain (principal); R06.02 Shortness of breath; Z20.822 Contact with and (suspected) exposure to COVID-19
CPT/HCPCS: 0241U-QW; 36415; 71045-TC-FY; 80053; 83605; 83690; 83735; 84100; 84484; 85025; 85610; 85730; 86850; 86900; 86901; 93005; 93010; 96365; 96375; 99285-25

== ENCOUNTER 2023-05-11 05:01 | Emergency (ER) | payer OTHER ==
[2023-05-11 05:10] VITALS: BMI 27.6
[2023-05-11] MEDS ORDERED: MAG HYDROX/AL HYDROX/SIMETH 30 ML UNIT-DOSE CUP PO ONE (06:16)
[2023-05-11] MEDS ORDERED: ONDANSETRON 4 MG/2 ML VIAL IVPUSH ONE (06:16)
[2023-05-11] MEDS ORDERED: FAMOTIDINE 20 MG/50 ML IVPB 20 MG/50 ML MG IVPB ONE ×2 (06:16→06:23)
[2023-05-11] MEDS ORDERED: ONDANSETRON 4 MG/2 ML VIAL ONE (06:23)
[2023-05-11] MEDS ORDERED: MAG HYDROX/AL HYDROX/SIMETH 30 ML UNIT-DOSE CUP ONE (06:23)
[2023-05-11] MEDS ORDERED: ACETAMINOPHEN INJECTION 100 ML IVPB ONE (06:24)
[2023-05-11] MEDS ORDERED: ACETAMINOPHEN 1000 MG/100 ML BAG IVPB ONE (06:24)
[2023-05-11 06:50] LABS: BASO % 2.5 % (0-2.0); EOS % 5.6 % (0-4.5); HEMATOCRIT 32.5 % (35.4-49); HEMOGLOBIN 10.4 GM/dL (11.7-16.9); LYMPH % 28.4 % (8-40); MCH 28.5 pg (25.7-33.7); MCHC 32.1 g/dl (32.0-35.9); MEAN PLT VOLUME 8.3 fl (7.5-11.1); MONO % 13.1 % (3.8-10.2); NEUT % 50.4 % (42.8-82.8); PLATELET COUNT 197 10^3/uL (134-434); RBC 3.65 M/mm3 (4.00-5.60); RDW 15.8 % (11.9-15.9); WHITE BLOOD COUNT 5.1 K/mm3 (4.0-10.0)
[2023-05-11 07:08] LABS: INR 1.12 (0.83-1.09)
[2023-05-11 07:11] LABS: ACTIVATED PTT 34.5 SECONDS (25.2-36.5)
[2023-05-11 07:17] LABS: POTASSIUM 4.1 mmol/L (3.5-5.1)
[2023-05-11 07:20] LABS: ALBUMIN 3.4 g/dl (3.4-5.0); BLOOD UREA NITROGEN 20.9 mg/dL (7-18); CALCIUM 8.4 mg/dL (8.5-10.1); MAGNESIUM 2.3 mg/dL (1.8-2.4)
[2023-05-11 07:23] LABS: CREATININE 6.6 mg/dL (0.55-1.3); PHOSPHOROUS 2.7 mg/dL (2.5-4.9)
[2023-05-11 07:24] LABS: TOT PROT 7.1 g/dl (6.4-8.2)
[2023-05-11 07:26] LABS: BILIRUBIN,TOTAL 0.4 mg/dL (0.2-1)
[2023-05-11 09:38] VITALS: BP 116/64; PULSE 68; RESP 16; TEMP 98.5
== END 2023-05-11 10:10 | disposition home or self-care (01) ==
LOC: JER 05:01
PROC: 3E033GC Introduction of Other Therapeutic Substance into Peripheral Vein, Percutaneous Approach (ICD-10-PCS; principal; 2023-05-11)
PROC: 3E033NZ Introduction of Analgesics, Hypnotics, Sedatives into Peripheral Vein, Percutaneous Approach (ICD-10-PCS; 2023-05-11)
PROC: 3E033GC Introduction of Other Therapeutic Substance into Peripheral Vein, Percutaneous Approach (ICD-10-PCS; 2023-05-11)
DX: R10.84 Generalized abdominal pain (principal); R11.2 Nausea with vomiting, unspecified
CPT/HCPCS: 36415; 80053; 82550; 83605; 83690; 83735; 84100; 84484; 85025; 85610; 85730; 86850; 86900; 86901; 93005; 93010; 96365; 96375; 99284-25

== ENCOUNTER 2023-05-11 19:42 | Emergency (ER) | payer OTHER ==
[2023-05-11 19:52] VITALS: BP 135/89; PULSE 76; RESP 18; TEMP 97.3; BMI 23.6
[2023-05-11] MEDS ORDERED: MAG HYDROX/AL HYDROX/SIMETH 30 ML UNIT-DOSE CUP PO ONE (20:53)
[2023-05-11] MEDS ORDERED: FAMOTIDINE 20 MG TABLET PO ONE (20:53)
[2023-05-11] MEDS ORDERED: PANTOPRAZOLE 40 MG TABLET PO ONE ×2 (20:53→21:09)
[2023-05-11] MEDS ORDERED: ACETAMINOPHEN 500 MG TABLET (FP) PO ONE (20:53)
[2023-05-11] MEDS ORDERED: ONDANSETRON *ODT* 4 MG TABLET SL ONE (20:55)
[2023-05-11] MEDS ORDERED: MELATONIN 5 MG TABLETS PO ONE (20:59)
[2023-05-11] MEDS ORDERED: ACETAMINOPHEN 325 MG TABLET (FP) ONE (21:10)
[2023-05-11] MEDS ORDERED: ONDANSETRON *ODT* 4 MG TABLET ONE ×2 (21:10→21:13)
[2023-05-11] MEDS ORDERED: MAG HYDROX/AL HYDROX/SIMETH 30 ML UNIT-DOSE CUP ONE (21:10)
[2023-05-11] MEDS ORDERED: FAMOTIDINE 20 MG TABLET ONE (21:10)
[2023-05-11] MEDS ORDERED: MELATONIN 5 MG TABLETS ONE (21:10)
[2023-05-12 02:25] LABS: BASO % 0.8 % (0-2.0); EOS % 4.9 % (0-4.5); HEMATOCRIT 30.1 % (35.4-49); HEMOGLOBIN 9.9 GM/dL (11.7-16.9); LYMPH % 32.5 % (8-40); MCH 28.5 pg (25.7-33.7); MCHC 32.9 g/dl (32.0-35.9); MEAN CELL VOLUME 86.6 fl (80-96); MEAN PLT VOLUME 7.1 fl (7.5-11.1); MONO % 10.2 % (3.8-10.2); NEUT % 51.6 % (42.8-82.8); PLATELET COUNT 179 10^3/uL (134-434); RBC 3.47 M/mm3 (4.00-5.60); RDW 16.3 % (11.9-15.9)
[2023-05-12 02:44] LABS: CHLORIDE 108 mmol/L (98-107); POTASSIUM 4.1 mmol/L (3.5-5.1); SODIUM 145 mmol/L (136-145)
[2023-05-12 02:46] LABS: CALCIUM 8.2 mg/dL (8.5-10.1)
[2023-05-12 02:47] LABS: ANION GAP 9 MMOL/L (8-16); BLOOD UREA NITROGEN 27.3 mg/dL (7-18); CO2 29 mmol/L (21-32); GLUCOSE,RANDOM 87 mg/dL (74-106); LIPASE 285 U/L (73-393)
[2023-05-12 02:50] LABS: SGOT/AST 9 U/L (15-37); SGPT/ALT 8 U/L (13-61)
[2023-05-12 02:51] LABS: BILIRUBIN,TOTAL 0.2 mg/dL (0.2-1); TOT PROT 6.1 g/dl (6.4-8.2)
[2023-05-12 02:53] LABS: ALK PHOS 128 U/L (45-117)
== END 2023-05-12 06:05 | disposition home or self-care (01) ==
LOC: JER 19:42
DX: R10.84 Generalized abdominal pain (principal); R11.0 Nausea
CPT/HCPCS: 36415; 80053; 83690; 85025; 93005; 93010; 99284-25; Q0162

== ENCOUNTER 2023-05-14 13:09 | Observation (INO) | payer OTHER ==
[2023-05-14] MEDS ORDERED: MAG HYDROX/AL HYDROX/SIMETH -MYLANTA- ORAL SUSPENSION PO ONE (13:51)
[2023-05-14] MEDS ORDERED: FAMOTIDINE 20 MG/50 ML IVPB 20 MG/50 ML MG IVPB ONE ×2 (13:52→14:03)
[2023-05-14] MEDS ORDERED: ACETAMINOPHEN 1000 MG/100 ML BAG IVPB ONE (13:52)
[2023-05-14] MEDS ORDERED: ONDANSETRON 4 MG/2 ML VIAL IVPUSH ONE (13:55)
[2023-05-14] MEDS ORDERED: morphine SULFATE 4 MG/ML VIAL IVPUSH ONE (14:01)
[2023-05-14] MEDS ORDERED: PANTOPRAZOLE SODIUM 40 MG VIAL IVPUSH ONE (14:01)
[2023-05-14] MEDS ORDERED: ACETAMINOPHEN INJECTION 100 ML IVPB ONE (14:03)
[2023-05-14] MEDS ORDERED: MAG HYDROX/AL HYDROX/SIMETH 30 ML UNIT-DOSE CUP ONE (14:03)
[2023-05-14] MEDS ORDERED: ONDANSETRON 4 MG/2 ML VIAL ONE (14:03)
[2023-05-14] MEDS ORDERED: PANTOPRAZOLE SODIUM 40 MG VIAL ONE (14:51)
[2023-05-14] MEDS ORDERED: morphine SULFATE 4 MG/ML VIAL ONE (14:51)
[2023-05-14 15:33] LABS: BASO % 1.2 % (0-2.0); EOS % 3.8 % (0-4.5); HEMATOCRIT 31.5 % (35.4-49); LYMPH % 25.9 % (8-40); MCH 28.3 pg (25.7-33.7); MCHC 31.9 g/dl (32.0-35.9); MEAN CELL VOLUME 88.9 fl (80-96); MEAN PLT VOLUME 8.7 fl (7.5-11.1); MONO % 8.9 % (3.8-10.2); NEUT % 60.2 % (42.8-82.8); PLATELET COUNT 218 10^3/uL (134-434); RBC 3.54 M/mm3 (4.00-5.60); RDW 16.4 % (11.9-15.9); WHITE BLOOD COUNT 4.6 K/mm3 (4.0-10.0)
[2023-05-14 15:51] LABS: CHLORIDE 104 mmol/L (98-107); SODIUM 139 mmol/L (136-145)
[2023-05-14 15:53] LABS: CALCIUM 8.6 mg/dL (8.5-10.1)
[2023-05-14 15:54] LABS: ALBUMIN 3.4 g/dl (3.4-5.0); BLOOD UREA NITROGEN 23.7 mg/dL (7-18); CO2 29 mmol/L (21-32); GLUCOSE,RANDOM 72 mg/dL (74-106); LIPASE 285 U/L (73-393); MAGNESIUM 2.5 mg/dL (1.8-2.4)
[2023-05-14 15:57] LABS: PHOSPHOROUS 3.2 mg/dL (2.5-4.9)
[2023-05-14 15:58] LABS: BILIRUBIN,TOTAL 0.3 mg/dL (0.2-1)
[2023-05-14 15:59] LABS: SGOT/AST 32 U/L (15-37); SGPT/ALT 12 U/L (13-61)
[2023-05-14 16:02] LABS: ALK PHOS 139 U/L (45-117)
[2023-05-14 16:03] LABS: ANION GAP 6 MMOL/L (8-16); CREATININE 8.3 mg/dL (0.55-1.3); POTASSIUM 6.6 mmol/L (3.5-5.1)
[2023-05-14 16:25] LABS: INR 1.13 (0.83-1.09); PROTHROMBIN TIME (PATIENT) 13.1 SEC (9.7-13.0)
[2023-05-14 16:27] LABS: ACTIVATED PTT 36.2 SECONDS (25.2-36.5)
[2023-05-14 16:39] LABS: CHLORIDE 105 mmol/L (98-107); SODIUM 139 mmol/L (136-145)
[2023-05-14 16:40] LABS: CALCIUM 8.7 mg/dL (8.5-10.1)
[2023-05-14 16:41] LABS: BLOOD UREA NITROGEN 25.2 mg/dL (7-18); CO2 27 mmol/L (21-32); GLUCOSE,RANDOM 74 mg/dL (74-106)
[2023-05-14 17:16] LABS: ANION GAP 8 MMOL/L (8-16); CREATININE 8.3 mg/dL (0.55-1.3); POTASSIUM 6.9 mmol/L (3.5-5.1)
[2023-05-14] MEDS ORDERED: ONDANSETRON 4 MG/2 ML VIAL IVPUSH PRN (20:24)
[2023-05-14] MEDS ORDERED: ACETAMINOPHEN 325 MG TABLET (FP) PO PRN (20:24)
[2023-05-14] MEDS ORDERED: DOCUSATE SODIUM 100 MG CAPSULE (FP) PO PRN (20:24)
[2023-05-14 20:47] LABS: POTASSIUM 7.9 mmol/L (3.5-5.1)
[2023-05-15 00:33] LABS: POTASSIUM 4.2 mmol/L (3.5-5.1)
[2023-05-15 05:21] LABS: MAGNESIUM 2.4 mg/dL (1.8-2.4)
[2023-05-15] MEDS: hydrALAZINE HCL 50 MG TABLET (FP) PO SCH ×2 (06:21→15:43)
[2023-05-15] MEDS ORDERED: SUCRALFATE 1 GM/10 ML UNIT DOSE CUPS PO SCH (07:00)
[2023-05-15 08:32] LABS: BASO % 2.5 % (0-2.0); EOS % 7.1 % (0-4.5); HEMATOCRIT 32.7 % (35.4-49); HEMOGLOBIN 10.6 GM/dL (11.7-16.9); LYMPH % 34.4 % (8-40); MCH 28.4 pg (25.7-33.7); MCHC 32.3 g/dl (32.0-35.9); MEAN CELL VOLUME 87.8 fl (80-96); MEAN PLT VOLUME 8.4 fl (7.5-11.1); MONO % 10.8 % (3.8-10.2); NEUT % 45.2 % (42.8-82.8); PLATELET COUNT 243 10^3/uL (134-434); RBC 3.72 M/mm3 (4.00-5.60); RDW 16.2 % (11.9-15.9); WHITE BLOOD COUNT 3.8 K/mm3 (4.0-10.0)
[2023-05-15] MEDS: CALCIUM ACETATE 667 MG CAPSULE (FP) PO SCH ×2 (08:33→15:44)
[2023-05-15 08:45] LABS: CHLORIDE 105 mmol/L (98-107); POTASSIUM 4.5 mmol/L (3.5-5.1); SODIUM 141 mmol/L (136-145)
[2023-05-15 08:49] LABS: ANION GAP 8 MMOL/L (8-16); BLOOD UREA NITROGEN 30.1 mg/dL (7-18); CALCIUM 8.5 mg/dL (8.5-10.1); CO2 28 mmol/L (21-32); GLUCOSE,RANDOM 68 mg/dL (74-106)
[2023-05-15 09:00] LABS: CREATININE 9.8 mg/dL (0.55-1.3)
[2023-05-15] MEDS ORDERED: METOPROLOL TARTRATE 25 MG TABLET (FP) PO SCH (10:00)
[2023-05-15] MEDS ORDERED: ISOSORBIDE MONONITRATE 30 MG TAB.SR.24H (FP) PO SCH (10:00)
[2023-05-15] MEDS ORDERED: PANTOPRAZOLE 40 MG TABLET PO SCH (10:00)
[2023-05-15] MEDS ORDERED: ASPIRIN 81 MG CHEWABLE TABLETS PO SCH (10:00)
[2023-05-15] MEDS ORDERED: amLODIPine BESYLATE 10 MG TABLET (FP) PO SCH (10:00)
[2023-05-15] MEDS ORDERED: POLYETHYLENE GLYCOL (HEALTHYLAX) 3350 17 GM PACKET PO SCH (10:00)
[2023-05-15] MEDS ORDERED: LISINOPRIL 20 MG TABLET PO SCH (10:00)
[2023-05-15] MEDS ORDERED: SODIUM CHLORIDE 250 ML IV PRN (10:31)
[2023-05-15] MEDS ORDERED: EPOETIN ALFA-EPBX 4,000 UNIT/ML VIAL SQ ONE (14:45)
[2023-05-15 15:24] VITALS: BMI 23.1
[2023-05-15 16:01] VITALS: TEMP 98.2
[2023-05-15 16:04] VITALS: RESP 18
[2023-05-15 16:18] VITALS: BP 122/80; PULSE 60
[2023-05-15] MEDS ORDERED: HEPARIN NA (PORCINE) 5,000 UNITS/ML 1ML VIAL SQ SCH (22:00)
== END 2023-05-15 15:40 | disposition home or self-care (01) ==
LOC: JER 13:09 → JERBED 19:45 → J7W 21:49
PROVIDERS: ADMIT Internal Medicine; ATTEND Family Medicine
PROC: 3E033NZ Introduction of Analgesics, Hypnotics, Sedatives into Peripheral Vein, Percutaneous Approach (ICD-10-PCS; principal; 2023-05-14)
PROC: 3E023GC Introduction of Other Therapeutic Substance into Muscle, Percutaneous Approach (ICD-10-PCS; 2023-05-14)
PROC: 3E033NZ Introduction of Analgesics, Hypnotics, Sedatives into Peripheral Vein, Percutaneous Approach (ICD-10-PCS; 2023-05-14)
PROC: 3E033GC Introduction of Other Therapeutic Substance into Peripheral Vein, Percutaneous Approach (ICD-10-PCS; 2023-05-14)
DX: R10.9 Unspecified abdominal pain (principal); N18.6 End stage renal disease; R77.8 Other specified abnormalities of plasma proteins; K26.9 Duodenal ulcer, unspecified as acute or chronic, without hemorrhage or perforation; K29.60 Other gastritis without bleeding; K29.80 Duodenitis without bleeding; Z87.19 Personal history of other diseases of the digestive system; Z87.891 Personal history of nicotine dependence; R42 Dizziness and giddiness; I11.0 Hypertensive heart disease with heart failure; I50.9 Heart failure, unspecified; I27.20 Pulmonary hypertension, unspecified
CPT/HCPCS: 36415; 76705-TC; 80048; 80053; 83605; 83690; 83735; 84100; 84132; 84484; 85025; 85610; 85730; 86850; 86900; 86901; 93005; 93010; 96372; 96374; 96375; 99285-25; G0378; Q5106

== ENCOUNTER 2023-05-19 10:47 | Emergency (ER) | payer OTHER ==
[2023-05-19 11:16] VITALS: BMI 24.3
[2023-05-19] MEDS ORDERED: MAG HYDROX/AL HYDROX/SIMETH -MYLANTA- ORAL SUSPENSION PO ONE (11:28)
[2023-05-19] MEDS ORDERED: FAMOTIDINE 10 MG TABLET PO ONE (11:29)
[2023-05-19 12:37] LABS: BASO % 1.2 % (0-2.0); EOS % 5.1 % (0-4.5); HEMATOCRIT 32.8 % (35.4-49); HEMOGLOBIN 10.7 GM/dL (11.7-16.9); LYMPH % 23.3 % (8-40); MCH 28.5 pg (25.7-33.7); MCHC 32.6 g/dl (32.0-35.9); MEAN CELL VOLUME 87.4 fl (80-96); MEAN PLT VOLUME 7.3 fl (7.5-11.1); MONO % 10.7 % (3.8-10.2); NEUT % 59.7 % (42.8-82.8); PLATELET COUNT 267 10^3/uL (134-434); RBC 3.76 M/mm3 (4.00-5.60); RDW 16.3 % (11.9-15.9); WHITE BLOOD COUNT 5.8 K/mm3 (4.0-10.0)
[2023-05-19 12:45] LABS: CHLORIDE 105 mmol/L (98-107); POTASSIUM 4.4 mmol/L (3.5-5.1); SODIUM 142 mmol/L (136-145)
[2023-05-19 12:49] LABS: ALBUMIN 3.3 g/dl (3.4-5.0); ANION GAP 9 MMOL/L (8-16); BLOOD UREA NITROGEN 25.7 mg/dL (7-18); CALCIUM 8.7 mg/dL (8.5-10.1); CO2 29 mmol/L (21-32); GLUCOSE,RANDOM 59 mg/dL (74-106); LIPASE 225 U/L (73-393)
[2023-05-19 12:52] LABS: SGOT/AST 10 U/L (15-37); SGPT/ALT 10 U/L (13-61)
[2023-05-19 12:53] LABS: BILIRUBIN,TOTAL 0.4 mg/dL (0.2-1)
[2023-05-19 12:54] LABS: TOT PROT 6.9 g/dl (6.4-8.2)
[2023-05-19 12:55] LABS: ALK PHOS 143 U/L (45-117); CREATININE 9.4 mg/dL (0.55-1.3)
[2023-05-19 13:50] VITALS: BP 134/78; PULSE 60; RESP 20; TEMP 98
== END 2023-05-19 13:50 | disposition home or self-care (01) ==
LOC: JER 10:47
DX: R10.84 Generalized abdominal pain (principal)
CPT/HCPCS: 36415; 80053; 82962; 83690; 83735; 85025; 99283-25

== ENCOUNTER 2023-05-21 12:44 | Emergency (ER) | payer OTHER ==
[2023-05-21 12:51] VITALS: TEMP 97.2; BMI 23.6
[2023-05-21] MEDS ORDERED: ACETAMINOPHEN 1000 MG/100 ML BAG IVPB ONE (13:59)
[2023-05-21] MEDS ORDERED: FAMOTIDINE 20 MG/50 ML IVPB 20 MG/50 ML MG IVPB ONE ×3 (13:59→14:23)
[2023-05-21] MEDS ORDERED: LACTATED RINGERS SOLUTION 1000 ML INFUS.BAG IV ONE (13:59)
[2023-05-21] MEDS ORDERED: MAG HYDROX/AL HYDROX/SIMETH 30 ML UNIT-DOSE CUP PO ONE (13:59)
[2023-05-21] MEDS ORDERED: PANTOPRAZOLE SODIUM 40 MG VIAL IVPUSH ONE (14:00)
[2023-05-21] MEDS ORDERED: MAG HYDROX/AL HYDROX/SIMETH 30 ML UNIT-DOSE CUP ONE (14:21)
[2023-05-21] MEDS ORDERED: ACETAMINOPHEN INJECTION 100 ML IVPB ONE (14:21)
[2023-05-21] MEDS ORDERED: ALBUTEROL SO4 2.5/IPRATROPIUM 0.5 INH SOL 3 ML VIAL.NEB. NEB ONE ×2 (14:21→15:00)
[2023-05-21] MEDS ORDERED: PANTOPRAZOLE SODIUM 40 MG VIAL ONE (14:22)
[2023-05-21 14:56] LABS: BASO % 1.1 % (0-2.0); EOS % 5.1 % (0-4.5); HEMATOCRIT 34.5 % (35.4-49); HEMOGLOBIN 11.1 GM/dL (11.7-16.9); LYMPH % 24.6 % (8-40); MCH 28.7 pg (25.7-33.7); MCHC 32.3 g/dl (32.0-35.9); MEAN CELL VOLUME 88.8 fl (80-96); MEAN PLT VOLUME 8.5 fl (7.5-11.1); MONO % 9.8 % (3.8-10.2); NEUT % 59.4 % (42.8-82.8); PLATELET COUNT 312 10^3/uL (134-434); RBC 3.88 M/mm3 (4.00-5.60); RDW 16.9 % (11.9-15.9); WHITE BLOOD COUNT 5.5 K/mm3 (4.0-10.0)
[2023-05-21 15:02] LABS: INR 1.07 (0.83-1.09); PROTHROMBIN TIME (PATIENT) 12.4 SEC (9.7-13.0)
[2023-05-21 15:05] LABS: ACTIVATED PTT 34.5 SECONDS (25.2-36.5)
[2023-05-21 15:24] LABS: CHLORIDE 104 mmol/L (98-107); POTASSIUM 5.4 mmol/L (3.5-5.1); SODIUM 139 mmol/L (136-145)
[2023-05-21 15:27] LABS: ALBUMIN 3.5 g/dl (3.4-5.0); ANION GAP 6 MMOL/L (8-16); BLOOD UREA NITROGEN 19.7 mg/dL (7-18); CALCIUM 8.9 mg/dL (8.5-10.1); CO2 29 mmol/L (21-32); GLUCOSE,RANDOM 76 mg/dL (74-106); LIPASE 239 U/L (73-393)
[2023-05-21 15:30] LABS: SGOT/AST 31 U/L (15-37); SGPT/ALT 12 U/L (13-61)
[2023-05-21 15:31] LABS: BILIRUBIN,TOTAL 0.4 mg/dL (0.2-1)
[2023-05-21 15:32] LABS: TOT PROT 7.3 g/dl (6.4-8.2)
[2023-05-21 15:33] LABS: ALK PHOS 150 U/L (45-117)
[2023-05-21 15:35] LABS: CREATININE 8.1 mg/dL (0.55-1.3)
[2023-05-21 15:42] VITALS: BP 143/93; PULSE 72; RESP 16
[2023-05-21] MEDS ORDERED: SUCRALFATE 1 GM TABLET (FP) PO ONE (15:54)
[2023-05-21] MEDS ORDERED: SUCRALFATE 1 GM TABLET (FP) ONE (16:36)
== END 2023-05-21 16:57 | disposition home or self-care (01) ==
LOC: JER 12:44
PROC: 3E0F7GC Introduction of Other Therapeutic Substance into Respiratory Tract, Via Natural or Artificial Opening (ICD-10-PCS; principal; 2023-05-21)
PROC: 3E033GC Introduction of Other Therapeutic Substance into Peripheral Vein, Percutaneous Approach (ICD-10-PCS; 2023-05-21)
PROC: 3E033NZ Introduction of Analgesics, Hypnotics, Sedatives into Peripheral Vein, Percutaneous Approach (ICD-10-PCS; 2023-05-21)
PROC: 3E033GC Introduction of Other Therapeutic Substance into Peripheral Vein, Percutaneous Approach (ICD-10-PCS; 2023-05-21)
DX: R10.84 Generalized abdominal pain (principal)
CPT/HCPCS: 36415; 71046-TC-FY; 80053; 83690; 84484; 85025; 85610; 85730; 93005; 93010; 99285-25

== ENCOUNTER 2023-05-27 10:55 | Observation (INO) | payer OTHER ==
[2023-05-27 11:02] VITALS: RESP 18
[2023-05-27] MEDS ORDERED: ONDANSETRON 4 MG/2 ML VIAL IVPUSH ONE (12:15)
[2023-05-27] MEDS ORDERED: FAMOTIDINE 20 MG/50 ML IVPB 20 MG/50 ML MG IVPB ONE ×2 (12:15→12:36)
[2023-05-27] MEDS ORDERED: ACETAMINOPHEN 1000 MG/100 ML BAG IVPB ONE (12:15)
[2023-05-27] MEDS ORDERED: METOCLOPRAMIDE HCL INJECTION 10 MG/2 ML VIAL ONE (12:36)
[2023-05-27] MEDS ORDERED: ACETAMINOPHEN INJECTION 100 ML IVPB ONE (12:36)
[2023-05-27] MEDS ORDERED: ONDANSETRON 4 MG/2 ML VIAL ONE (12:38)
[2023-05-27 13:03] LABS: BASO % 0.8 % (0-2.0); EOS % 4.9 % (0-4.5); HEMATOCRIT 35.1 % (35.4-49); HEMOGLOBIN 11.5 GM/dL (11.7-16.9); LYMPH % 26.6 % (8-40); MCH 28.5 pg (25.7-33.7); MCHC 32.7 g/dl (32.0-35.9); MEAN CELL VOLUME 87.1 fl (80-96); MEAN PLT VOLUME 7.6 fl (7.5-11.1); MONO % 9.9 % (3.8-10.2); NEUT % 57.8 % (42.8-82.8); PLATELET COUNT 220 10^3/uL (134-434); RBC 4.04 M/mm3 (4.00-5.60); RDW 17.7 % (11.9-15.9); WHITE BLOOD COUNT 5.5 K/mm3 (4.0-10.0)
[2023-05-27 13:09] LABS: INR 1.03 (0.83-1.09)
[2023-05-27 13:11] LABS: ACTIVATED PTT 35.1 SECONDS (25.2-36.5)
[2023-05-27 13:26] LABS: POTASSIUM 3.5 mmol/L (3.5-5.1)
[2023-05-27 13:29] LABS: CALCIUM 8.6 mg/dL (8.5-10.1)
[2023-05-27 13:30] LABS: ALBUMIN 3.4 g/dl (3.4-5.0); BLOOD UREA NITROGEN 14.2 mg/dL (7-18)
[2023-05-27 13:33] LABS: CREATININE 5.7 mg/dL (0.55-1.3)
[2023-05-27 13:34] LABS: BILIRUBIN,TOTAL 0.4 mg/dL (0.2-1)
[2023-05-27] MEDS ORDERED: morphine CARPU-JECT 4 MG/1 ML DISP.SYRIN IVPUSH ONE (14:21)
[2023-05-27] MEDS ORDERED: ACETAMINOPHEN 325 MG TABLET (FP) PO PRN (20:31)
[2023-05-27] MEDS ORDERED: DOCUSATE SODIUM 100 MG CAPSULE (FP) PO PRN (20:31)
[2023-05-27] MEDS ORDERED: ONDANSETRON 4 MG/2 ML VIAL IVPUSH PRN (20:31)
[2023-05-28 03:00] VITALS: BMI 24.0
[2023-05-28 07:47] VITALS: BP 149/88; PULSE 74; TEMP 97.8
[2023-05-28 09:56] LABS: BASO % 2.6 % (0-2.0); EOS % 5.8 % (0-4.5); HEMATOCRIT 34.2 % (35.4-49); HEMOGLOBIN 11.3 GM/dL (11.7-16.9); LYMPH % 34.4 % (8-40); MCH 28.6 pg (25.7-33.7); MCHC 33.1 g/dl (32.0-35.9); MEAN CELL VOLUME 86.4 fl (80-96); MEAN PLT VOLUME 7.9 fl (7.5-11.1); MONO % 8.8 % (3.8-10.2); NEUT % 48.4 % (42.8-82.8); PLATELET COUNT 219 10^3/uL (134-434); RBC 3.96 M/mm3 (4.00-5.60); RDW 17.2 % (11.9-15.9); WHITE BLOOD COUNT 3.8 K/mm3 (4.0-10.0)
[2023-05-28] MEDS ORDERED: amLODIPine BESYLATE 10 MG TABLET (FP) PO SCH (10:00)
[2023-05-28] MEDS ORDERED: METOPROLOL TARTRATE 25 MG TABLET (FP) PO SCH (10:00)
[2023-05-28] MEDS ORDERED: PANTOPRAZOLE 40 MG TABLET PO SCH (10:00)
[2023-05-28] MEDS ORDERED: ASPIRIN 81 MG CHEWABLE TABLETS PO SCH (10:00)
[2023-05-28] MEDS ORDERED: SUCRALFATE 1 GM TABLET (FP) PO SCH ×3 (10:00→11:00)
[2023-05-28 10:17] LABS: BLOOD UREA NITROGEN 19.9 mg/dL (7-18); CALCIUM 8.7 mg/dL (8.5-10.1)
[2023-05-28 10:21] LABS: CREATININE 7.3 mg/dL (0.55-1.3)
[2023-05-28] MEDS ORDERED: CALCIUM ACETATE 667 MG CAPSULE (FP) PO SCH (12:00)
== END 2023-05-28 10:55 | disposition left against medical advice (07) ==
LOC: JER 10:55 → JERBED 14:50 → J8W 05-28 00:37
PROVIDERS: ADMIT Internal Medicine; ATTEND Internal Medicine
PROC: 3E033NZ Introduction of Analgesics, Hypnotics, Sedatives into Peripheral Vein, Percutaneous Approach (ICD-10-PCS; principal; 2023-05-27)
PROC: 3E033NZ Introduction of Analgesics, Hypnotics, Sedatives into Peripheral Vein, Percutaneous Approach (ICD-10-PCS; 2023-05-27)
DX: R10.84 Generalized abdominal pain (principal); R11.2 Nausea with vomiting, unspecified; N18.6 End stage renal disease; Z99.2 Dependence on renal dialysis; D64.9 Anemia, unspecified; K21.9 Gastro-esophageal reflux disease without esophagitis; K29.70 Gastritis, unspecified, without bleeding
CPT/HCPCS: 36415; 74176-TC; 80048; 80053; 83605; 83690; 84484; 85025; 85610; 85730; 93005; 93010; 96365; 96375; 99285-25; G0378

== ENCOUNTER 2023-12-06 10:20 | Inpatient (IN) | payer OTHER ==
[2023-12-06 10:46] VITALS: BMI 20.6
[2023-12-06] MEDS ORDERED: NITROGLYCERIN SUBLINGUAL 1/150 0.4 MG TAB SL ONE (11:08)
[2023-12-06] MEDS ORDERED: methylPREDNISolone NA SUCC 125 MG/2 ML VIAL IVPUSH ONE (11:36)
[2023-12-06] MEDS: ALBUTEROL SO4 2.5/IPRATROPIUM 0.5 INH SOL 3 ML VIAL.NEB. NEB SCH ×2 (11:43→12:21)
[2023-12-06] MEDS ORDERED: methylPREDNISolone NA SUCC 125 MG/2 ML VIAL ONE (11:54)
[2023-12-06 12:08] LABS: BASO % 1.1 % (0-2.0); EOS % 0.8 % (0-4.5); HEMOGLOBIN 13.8 GM/dL (11.7-16.9); LYMPH % 8.6 % (8-40); MCH 28.8 pg (25.7-33.7); MCHC 32.9 g/dl (32.0-35.9); MEAN CELL VOLUME 87.7 fl (80-96); MEAN PLT VOLUME 7.4 fl (7.5-11.1); NEUT % 78.5 % (42.8-82.8); PLATELET COUNT 241 10^3/uL (134-434); RBC 4.79 M/mm3 (4.00-5.60); RDW 15.3 % (11.9-15.9); WHITE BLOOD COUNT 8.8 K/mm3 (4.0-10.0)
[2023-12-06 12:11] LABS: INR 1.1 (0.83-1.09); PROTHROMBIN TIME (PATIENT) 12.8 SEC (9.7-13.0)
[2023-12-06 12:13] LABS: VENOUS BASE EXCESS 1.1 mmol/L (-2-2); VENOUS PCO2 66.3 mmHg (38-52); VENOUS PH 7.27 (7.310-7.410)
[2023-12-06 12:14] LABS: ACTIVATED PTT 31.9 SECONDS (25.2-36.5)
[2023-12-06 12:28] LABS: POTASSIUM 3.7 mmol/L (3.5-5.1)
[2023-12-06 12:30] LABS: CALCIUM 9.9 mg/dL (8.5-10.1)
[2023-12-06 12:31] LABS: ALBUMIN 3.8 g/dl (3.4-5.0); MAGNESIUM 2.1 mg/dL (1.8-2.4)
[2023-12-06 12:34] LABS: CREATININE 5.3 mg/dL (0.55-1.3)
[2023-12-06 12:35] LABS: BILIRUBIN,TOTAL 0.5 mg/dL (0.2-1)
[2023-12-06 12:36] LABS: TOT PROT 8.1 g/dl (6.4-8.2)
[2023-12-06 12:39] LABS: N-TERMINAL BNP 16494.1 pg/ml (5-125)
[2023-12-06] MEDS ORDERED: ACETAMINOPHEN 1000 MG/100 ML BAG IVPB ONE (14:16)
[2023-12-06] MEDS ORDERED: PIPERACILLIN/TAZOB 3.375 GM 3.375 GM in DEXTROSE 5%-WATER - 50 ML IVPB ONE (14:21)
[2023-12-06] MEDS ORDERED: VANCOMYCIN 1,000 MG in DEXTROSE 5%-WATER - 250 ML IVPB ONE (14:21)
[2023-12-06] MEDS ORDERED: VANCOMYCIN 1 GRAM (PRE-DOCKED) 1,000 MG/250 ML BAG IVPB ONE ×2 (14:46→15:13)
[2023-12-06] MEDS ORDERED: PIPERACILLIN/TAZOB 3.375 GM 3.375 GM/50 ML BAG IVPB ONE (14:46)
[2023-12-06] MEDS ORDERED: ACETAMINOPHEN INJECTION 100 ML IVPB ONE (14:46)
[2023-12-06 15:20] LABS: ALLENS TEST POSITIVE; ARTERIAL BLD GAS O2 SATURATION 98.9 % (95-98); ARTERIAL BLOOD GAS BASE EXCESS 1.2 mmol/L (-2-2); ARTERIAL BLOOD GAS PO2 164.7 mmHg (80-100); ARTERIAL BLOOD GAS pH 7.314 (7.350-7.450)
[2023-12-06 15:21] LABS: VENT MODE S/T; VENT RATE 14
[2023-12-06] MEDS ORDERED: methylPREDNISolone NA SUCC 40 MG/1 ML VIAL ONE (17:57)
[2023-12-06] MEDS: methylPREDNISolone NA SUCC 40 MG/1 ML VIAL IVPUSH SCH (17:58)
[2023-12-06] MEDS: CALCIUM ACETATE 667 MG CAPSULE (FP) PO SCH (17:58)
[2023-12-07] MEDS ORDERED: PIPERACILLIN/TAZOB 2.25 GM 2.25 GM in DEXTROSE 5%-WATER - 50 ML IVPB SCH (02:00)
[2023-12-07] MEDS ORDERED: methylPREDNISolone NA SUCC 40 MG/1 ML VIAL ONE (02:24)
[2023-12-07] MEDS: methylPREDNISolone NA SUCC 40 MG/1 ML VIAL IVPUSH SCH ×2 (02:37→09:45)
[2023-12-07 07:32] LABS: BASO % 0.2 % (0-2.0); HEMOGLOBIN 12.9 GM/dL (11.7-16.9); LYMPH % 5.6 % (8-40); MCH 28.4 pg (25.7-33.7); MCHC 32.2 g/dl (32.0-35.9); MEAN CELL VOLUME 88.2 fl (80-96); MEAN PLT VOLUME 7.7 fl (7.5-11.1); MONO % 5.5 % (3.8-10.2); NEUT % 88.7 % (42.8-82.8); PLATELET COUNT 229 10^3/uL (134-434); RBC 4.53 M/mm3 (4.00-5.60); RDW 14.8 % (11.9-15.9); WHITE BLOOD COUNT 11.4 K/mm3 (4.0-10.0)
[2023-12-07 07:48] LABS: CHLORIDE 100 mmol/L (98-107); POTASSIUM 4.6 mmol/L (3.5-5.1); SODIUM 139 mmol/L (136-145)
[2023-12-07 08:03] LABS: ALBUMIN 3.2 g/dl (3.4-5.0); ANION GAP 13 mmol/L (4-13); BLOOD UREA NITROGEN 21.4 mg/dL (7-18); CO2 25 mmol/L (21-32)
[2023-12-07 08:04] LABS: GLUCOSE,RANDOM 107 mg/dL (74-106)
[2023-12-07 08:05] LABS: MAGNESIUM 2.2 mg/dL (1.8-2.4)
[2023-12-07 08:06] LABS: PHOSPHOROUS 8.3 mg/dL (2.5-4.9)
[2023-12-07 08:07] LABS: SGOT/AST 14 U/L (15-37)
[2023-12-07 08:08] LABS: BILIRUBIN,TOTAL 0.5 mg/dL (0.2-1); SGPT/ALT 9 U/L (13-61); TOT PROT 7.1 g/dl (6.4-8.2)
[2023-12-07 08:09] LABS: ALK PHOS 102 U/L (45-117)
[2023-12-07 08:21] LABS: CALCIUM 8.7 mg/dL (8.5-10.1); CREATININE 7.5 mg/dL (0.55-1.3)
[2023-12-07] MEDS: CALCIUM ACETATE 667 MG CAPSULE (FP) PO SCH ×2 (08:26→18:03)
[2023-12-07] MEDS: PANTOPRAZOLE SODIUM 40 MG VIAL IVPUSH SCH (09:45)
[2023-12-07] MEDS: metoPROLOL SUCCINATE 25 MG TAB.SR.24H (FP) PO SCH (09:45)
[2023-12-07] MEDS: ASPIRIN 81 MG CHEWABLE TABLETS PO SCH (09:45)
[2023-12-07] MEDS: PIPERACILLIN/TAZOB 2.25 GM 2.25 GM in DEXTROSE 5%-WATER - 50 ML IVPB SCH (22:04)
[2023-12-08] MEDS: PIPERACILLIN/TAZOB 2.25 GM 2.25 GM in DEXTROSE 5%-WATER - 50 ML IVPB SCH ×2 (03:11→10:03)
[2023-12-08] MEDS ORDERED: methylPREDNISolone NA SUCC 40 MG/1 ML VIAL IVPUSH SCH (10:00)
[2023-12-08] MEDS: PANTOPRAZOLE SODIUM 40 MG VIAL IVPUSH SCH (10:03)
[2023-12-08] MEDS: CALCIUM ACETATE 667 MG CAPSULE (FP) PO SCH ×2 (10:03→18:26)
[2023-12-08] MEDS: ASPIRIN 81 MG CHEWABLE TABLETS PO SCH (10:03)
[2023-12-08] MEDS: metoPROLOL SUCCINATE 25 MG TAB.SR.24H (FP) PO SCH (10:03)
[2023-12-08] MEDS ORDERED: SODIUM CHLORIDE 250 ML IV PRN (13:15)
[2023-12-08] MEDS: ALBUTEROL SO4 2.5/IPRATROPIUM 0.5 INH SOL 3 ML VIAL.NEB. NEB SCH ×2 (16:16→21:32)
[2023-12-09] MEDS: ALBUTEROL SO4 2.5/IPRATROPIUM 0.5 INH SOL 3 ML VIAL.NEB. NEB SCH ×4 (08:33→21:32)
[2023-12-09] MEDS: CALCIUM ACETATE 667 MG CAPSULE (FP) PO SCH ×2 (09:05→17:10)
[2023-12-09 09:48] LABS: HEMATOCRIT 36.9 % (35.4-49); HEMOGLOBIN 12.1 GM/dL (11.7-16.9); MCH 28.4 pg (25.7-33.7); MCHC 32.8 g/dl (32.0-35.9); MEAN CELL VOLUME 86.8 fl (80-96); MEAN PLT VOLUME 7.7 fl (7.5-11.1); PLATELET COUNT 237 10^3/uL (134-434); RBC 4.26 M/mm3 (4.00-5.60); RDW 14.7 % (11.9-15.9); WHITE BLOOD COUNT 5.5 K/mm3 (4.0-10.0)
[2023-12-09 10:02] LABS: CHLORIDE 103 mmol/L (98-107); POTASSIUM 3.9 mmol/L (3.5-5.1); SODIUM 133 mmol/L (136-145)
[2023-12-09 10:18] LABS: ANION GAP 5 mmol/L (4-13); CALCIUM 7.8 mg/dL (8.5-10.1); CO2 25 mmol/L (21-32); GLUCOSE,RANDOM 179 mg/dL (74-106)
[2023-12-09 10:19] LABS: ALBUMIN 2.8 g/dl (3.4-5.0)
[2023-12-09 10:22] LABS: SGOT/AST 8 U/L (15-37); SGPT/ALT 8 U/L (13-61)
[2023-12-09 10:23] LABS: BILIRUBIN,TOTAL 0.4 mg/dL (0.2-1); TOT PROT 6.5 g/dl (6.4-8.2)
[2023-12-09 10:24] LABS: ALK PHOS 80 U/L (45-117)
[2023-12-09 10:29] LABS: BLOOD UREA NITROGEN 61.8 mg/dL (7-18); CREATININE 12.7 mg/dL (0.55-1.3)
[2023-12-09] MEDS: PANTOPRAZOLE SODIUM 40 MG VIAL IVPUSH SCH (13:23)
[2023-12-09] MEDS: metoPROLOL SUCCINATE 25 MG TAB.SR.24H (FP) PO SCH (13:23)
[2023-12-09] MEDS: ASPIRIN 81 MG CHEWABLE TABLETS PO SCH (13:23)
[2023-12-10] MEDS: CALCIUM ACETATE 667 MG CAPSULE (FP) PO SCH ×2 (08:23→16:54)
[2023-12-10] MEDS: ALBUTEROL SO4 2.5/IPRATROPIUM 0.5 INH SOL 3 ML VIAL.NEB. NEB SCH ×4 (08:30→20:00)
[2023-12-10 09:50] VITALS: RESP 18
[2023-12-10] MEDS: PANTOPRAZOLE 40 MG TABLET PO SCH (10:03)
[2023-12-10] MEDS: ASPIRIN 81 MG CHEWABLE TABLETS PO SCH (10:03)
[2023-12-10] MEDS: metoPROLOL SUCCINATE 25 MG TAB.SR.24H (FP) PO SCH (10:03)
[2023-12-10 18:54] VITALS: TEMP 97.8
[2023-12-11] MEDS: ALBUTEROL SO4 2.5/IPRATROPIUM 0.5 INH SOL 3 ML VIAL.NEB. NEB SCH ×2 (07:25→11:35)
[2023-12-11] MEDS: CALCIUM ACETATE 667 MG CAPSULE (FP) PO SCH (08:27)
[2023-12-11] MEDS ORDERED: SODIUM CHLORIDE 250 ML IV PRN (09:36)
[2023-12-11] MEDS: metoPROLOL SUCCINATE 25 MG TAB.SR.24H (FP) PO SCH (13:02)
[2023-12-11] MEDS: PANTOPRAZOLE 40 MG TABLET PO SCH (13:04)
[2023-12-11] MEDS: ASPIRIN 81 MG CHEWABLE TABLETS PO SCH (13:04)
[2023-12-11 13:12] VITALS: BP 119/82; PULSE 101
== END 2023-12-11 14:36 | disposition home or self-care (01) | DRG 189 ==
LOC: JER 10:20 → JERBED 12:19 → J4W 12-07 03:58
PROVIDERS: ADMIT Family Medicine; ATTEND Family Medicine
PROC: 5A1D70Z Performance of Urinary Filtration, Intermittent, Less than 6 Hours Per Day (ICD-10-PCS; principal; 2023-12-08)
DX: J96.02 Acute respiratory failure with hypercapnia (principal); N18.6 End stage renal disease; I13.2 Hypertensive heart and chronic kidney disease with heart failure and with stage 5 chronic kidney disease, or end stage renal disease; I50.32 Chronic diastolic (congestive) heart failure; Z99.2 Dependence on renal dialysis; D64.9 Anemia, unspecified; K59.00 Constipation, unspecified; I25.10 Atherosclerotic heart disease of native coronary artery without angina pectoris; K21.9 Gastro-esophageal reflux disease without esophagitis; R50.9 Fever, unspecified; J96.01 Acute respiratory failure with hypoxia
CPT/HCPCS: 0241U-QW; 36415; 36600; 71045-TC-FY; 76604; 80053; 82803; 83036; 83605; 83690; 83735; 83880; 84100; 84443; 84484; 85025; 85027; 85610; 85730; 86704; 86803; 86850; 86900; 86901; 87040; 87340; 87517; 87633; 93005; 93010; 93308; 94640; 94660; 94761; 97116-GP; 97163-GP; 99285-25; G0480

== ENCOUNTER 2024-01-13 09:09 | Inpatient (IN) | payer OTHER ==
[2024-01-13] MEDS: FAMOTIDINE 20 MG/50 ML IVPB 20 MG/50 ML MG IVPB ONE (09:20)
[2024-01-13] MEDS: methylPREDNISolone NA SUCC 125 MG/2 ML VIAL IVPB ONE (09:25)
[2024-01-13] MEDS: TETRACAINE/BENZOCAINE/BUTAMBEN 20 GM SPR TP ONE (09:25)
[2024-01-13 10:05] LABS: EOS % 3.2 % (0-4.5); HEMOGLOBIN 12.6 GM/dL (11.7-16.9); LYMPH % 28.5 % (8-40); MCH 29.1 pg (25.7-33.7); MCHC 33.1 g/dl (32.0-35.9); MEAN CELL VOLUME 87.9 fl (80-96); MEAN PLT VOLUME 8.1 fl (7.5-11.1); MONO % 9.8 % (3.8-10.2); NEUT % 57.5 % (42.8-82.8); PLATELET COUNT 241 10^3/uL (134-434); RBC 4.33 M/mm3 (4.00-5.60); RDW 15.8 % (11.9-15.9); VENOUS O2 SATURATION 39.9 % (70-80); VENOUS PCO2 56.6 mmHg (38-52); VENOUS PH 7.276 (7.310-7.410)
[2024-01-13 10:22] LABS: CHLORIDE 101 mmol/L (98-107); POTASSIUM 4.9 mmol/L (3.5-5.1); SODIUM 138 mmol/L (136-145)
[2024-01-13 10:24] LABS: ALBUMIN 3.8 g/dl (3.4-5.0); ANION GAP 8 mmol/L (4-13); BLOOD UREA NITROGEN 28.1 mg/dL (7-18); CALCIUM 8.4 mg/dL (8.5-10.1); CO2 29 mmol/L (21-32); GLUCOSE,RANDOM 56 mg/dL (74-106); MAGNESIUM 2.6 mg/dL (1.8-2.4)
[2024-01-13 10:30] LABS: SGPT/ALT 14 U/L (13-61); TOT PROT 8.2 g/dl (6.4-8.2)
[2024-01-13 10:31] LABS: ALK PHOS 117 U/L (45-117); BILIRUBIN,TOTAL 0.6 mg/dL (0.2-1); SGOT/AST 30 U/L (15-37)
[2024-01-13 10:32] LABS: CREATININE 9.4 mg/dL (0.55-1.3)
[2024-01-13] MEDS ORDERED: KETAMINE HCL 200 MG/20 ML VIAL ONE (10:49)
[2024-01-13] MEDS ORDERED: RAPID SEQUENCE INTUBATION KIT NR ONE (10:49)
[2024-01-13] MEDS ORDERED: MIDAZOLAM HCL 2 MG/2 ML SINGLE DOSE VIAL ONE ×2 (10:59)
[2024-01-13] MEDS ORDERED: DEXTROSE 50%-WATER 25 GM/50 ML DISP.SYRIN ONE ×2 (11:19→18:09)
[2024-01-13] MEDS: MIDAZOLAM HCL 2 MG/2 ML SINGLE DOSE VIAL IVPUSH ONE ×2 (11:23)
[2024-01-13] MEDS: DEXTROSE 50%-WATER - 25 GM/50 ML VIAL IVPUSH ONE (11:23)
[2024-01-13] MEDS: KETAMINE HCL 200 MG/20 ML VIAL IVPUSH ONE (11:23)
[2024-01-13] MEDS: RACEPINEPHRINE IH SOL 2.25% 11.25 MG/0.5 ML VIAL IH ONE (11:24)
[2024-01-13] MEDS: PROPOFOL 200 MG/20 ML VIAL IVPUSH ONE ×3 (11:24→14:24)
[2024-01-13] MEDS ORDERED: MIDAZOLAM IN 0.9 % SOD.CHLORID 1 MG/1 ML PLAST..BAG ONE (11:27)
[2024-01-13] MEDS: MIDAZOLAM 100 MG in SODIUM CHLORIDE 100 ML IVPB SCH (11:30)
[2024-01-13] MEDS: MIDAZOLAM HCL 5 MG/1 ML Single Dose Vial IVPUSH ONE (11:51)
[2024-01-13] MEDS ORDERED: FENTANYL NS IVPB 500 MCG/100 ML BAG IVPB ONE (11:53)
[2024-01-13] MEDS: FENTANYL IVPB 500 MCG/100 ML BAG IVPB SCH (12:06)
[2024-01-13] MEDS ORDERED: PROPOFOL 1,000,000 MCG/100 ML VIAL ONE (12:48)
[2024-01-13] MEDS ORDERED: PROPOFOL 20 ML ONE (12:50)
[2024-01-13] MEDS ORDERED: HEPARIN NA (PORCINE) 5,000 UNITS/ML 1ML VIAL IVPUSH PRN (14:49)
[2024-01-13] MEDS: MIDAZOLAM IN 0.9 % SOD.CHLORID 100 MG/100 ML PLAST..BAG IVPB SCH (15:54)
[2024-01-13] MEDS: PANTOPRAZOLE SODIUM 40 MG VIAL IVPUSH SCH ×2 (15:55→21:06)
[2024-01-13] MEDS: HEPARIN INFUSION - 25,000 UNITS/500 ML INFUS.BAG IVPB SCH (15:58)
[2024-01-13] MEDS: HEPARIN NA (PORCINE) 5,000 UNITS/ML 1ML VIAL IVPUSH PRN (15:59)
[2024-01-13] MEDS: HEPARIN NA (PORCINE) 5,000 UNITS/ML 1ML VIAL SQ ONE (16:15)
[2024-01-13] MEDS: HEPARIN NA (PORCINE) 5,000 UNITS/ML 1ML VIAL SQ SCH (16:53)
[2024-01-13] MEDS: DEXTROSE 50%-WATER 25 GM/50 ML DISP.SYRIN IVPUSH ONE (18:22)
[2024-01-13] MEDS: FENTANYL NS IVPB 500 MCG/100 ML BAG IVPB SCH (18:35)
[2024-01-13] MEDS: MUPIROCIN 2% TOPICAL OINTMENT FOR DECOLONIZATION NS SCH (21:06)
[2024-01-13] MEDS: CHLORHEXIDINE GLUCONATE 4% CLEANSER FOR DECOLONIZATION TP SCH (21:06)
[2024-01-14] MEDS: HEPARIN INFUSION - 25,000 UNITS/500 ML INFUS.BAG IVPB SCH (01:18)
[2024-01-14 08:03] LABS: BASO % 1.3 % (0-2.0); EOS % 2.2 % (0-4.5); HEMATOCRIT 39.3 % (35.4-49); LYMPH % 21.4 % (8-40); MCH 29.1 pg (25.7-33.7); MEAN CELL VOLUME 88.4 fl (80-96); MEAN PLT VOLUME 8.3 fl (7.5-11.1); NEUT % 65.1 % (42.8-82.8); PLATELET COUNT 221 10^3/uL (134-434); RBC 4.45 M/mm3 (4.00-5.60); RDW 15.9 % (11.9-15.9); WHITE BLOOD COUNT 7.9 K/mm3 (4.0-10.0)
[2024-01-14 08:24] LABS: INR 1.08 (0.83-1.09); PROTHROMBIN TIME (PATIENT) 12.5 SEC (9.7-13.0)
[2024-01-14 08:27] LABS: ACTIVATED PTT 23.9 SECONDS (25.2-36.5); CHLORIDE 100 mmol/L (98-107); POTASSIUM 4.6 mmol/L (3.5-5.1); SODIUM 138 mmol/L (136-145)
[2024-01-14 08:29] LABS: CALCIUM 8.9 mg/dL (8.5-10.1)
[2024-01-14 08:30] LABS: ALBUMIN 3.4 g/dl (3.4-5.0); ANION GAP 12 mmol/L (4-13); CO2 27 mmol/L (21-32); GLUCOSE,RANDOM 63 mg/dL (74-106); MAGNESIUM 2.6 mg/dL (1.8-2.4)
[2024-01-14 08:32] LABS: SGPT/ALT 8 U/L (13-61)
[2024-01-14 08:33] LABS: SGOT/AST 18 U/L (15-37)
[2024-01-14 08:34] LABS: BILIRUBIN,TOTAL 0.6 mg/dL (0.2-1); TOT PROT 7.4 g/dl (6.4-8.2)
[2024-01-14 08:35] LABS: ALK PHOS 115 U/L (45-117)
[2024-01-14 08:37] LABS: CREATININE 11.3 mg/dL (0.55-1.3)
[2024-01-14] MEDS ORDERED: SODIUM CHLORIDE 250 ML IV PRN (09:29)
[2024-01-14] MEDS: DEXMEDETOMIDINE PREMIX 400 MCG/100 ML BAG IVPB SCH (14:00)
[2024-01-14 14:15] VITALS: BMI 24.6
[2024-01-14] MEDS ORDERED: ACETAMINOPHEN 1000 MG/100 ML BAG IVPB PRN (18:14)
[2024-01-14] MEDS ORDERED: ACETAMINOPHEN INJECTION 100 ML IVPB ONE (18:42)
[2024-01-14] MEDS ORDERED: RAPID SEQUENCE INTUBATION KIT NR ONE (19:47)
[2024-01-14] MEDS ORDERED: ROCURONIUM BROMIDE 50 MG/5 ML VIAL ONE (19:49)
[2024-01-14] MEDS ORDERED: PROPOFOL 1,000,000 MCG/100 ML VIAL ONE (19:50)
[2024-01-14] MEDS ORDERED: MIDAZOLAM IN 0.9 % SOD.CHLORID 1 MG/1 ML PLAST..BAG ONE (19:57)
[2024-01-14] MEDS: ETOMIDATE 40 MG/20 ML VIAL IVPUSH ONE (20:05)
[2024-01-14] MEDS: ROCURONIUM BROMIDE 50 MG/5 ML VIAL IV ONE (20:22)
[2024-01-14] MEDS: ETOMIDATE 20 MG/10 ML VIAL IVPUSH ONE (20:22)
[2024-01-14] MEDS: MIDAZOLAM 100 MG in SODIUM CHLORIDE 100 ML IVPB SCH (20:23)
[2024-01-14] MEDS ORDERED: PHENYLEPHRINE HCL 10 MG/1 ML SINGLE DOSE VIAL ONE (21:21)
[2024-01-14 21:29] LABS: ARTERIAL BLD GAS O2 SATURATION 76.6 % (95-98); ARTERIAL BLOOD GAS PO2 42.2 mmHg (80-100); ARTERIAL BLOOD GAS pH 7.374 (7.350-7.450)
[2024-01-14 21:38] LABS: ALLENS TEST POSITIVE; VENT MODE A/C
[2024-01-14 21:42] LABS: VENT RATE 16
[2024-01-14] MEDS: PHENYLEPHRINE NS PREMIX 50,000 MCG/500 ML BAG CVP SCH (22:13)
[2024-01-14] MEDS: MIDAZOLAM IN 0.9 % SOD.CHLORID 100 MG/100 ML PLAST..BAG IVPB SCH (22:13)
[2024-01-15 07:51] LABS: HEMATOCRIT 37.9 % (35.4-49); HEMOGLOBIN 12.3 GM/dL (11.7-16.9); MCH 28.5 pg (25.7-33.7); MCHC 32.4 g/dl (32.0-35.9); MEAN PLT VOLUME 8.1 fl (7.5-11.1); PLATELET COUNT 221 10^3/uL (134-434); RDW 15.1 % (11.9-15.9); WHITE BLOOD COUNT 9.9 K/mm3 (4.0-10.0)
[2024-01-15] MEDS ORDERED: PIPERACILLIN/TAZOB 2.25 GM 2.25 GM in DEXTROSE 5%-WATER - 50 ML IVPB SCH (10:00)
[2024-01-15] MEDS: VANCOMYCIN PREMIX 1.5 GM 1,500 MG/300 ML BAG IVPB ONE (12:36)
[2024-01-15] MEDS: PIPERACILLIN/TAZOB 2.25 GM 2.25 GM in DEXTROSE 5%-WATER - 50 ML IVPB SCH ×2 (12:48→18:27)
[2024-01-15] MEDS: methylPREDNISolone NA SUCC 40 MG/1 ML VIAL IVPUSH SCH (12:52)
[2024-01-15 14:23] LABS: ARTERIAL BLD GAS O2 SATURATION 95.3 % (95-98); ARTERIAL BLOOD GAS PO2 78.7 mmHg (80-100); ARTERIAL BLOOD GAS pH 7.363 (7.350-7.450)
[2024-01-15 14:24] LABS: ALLENS TEST POSITIVE
[2024-01-15 14:25] LABS: VENT MODE V-AC; VENT RATE 16
[2024-01-15] MEDS: ALBUTEROL SO4 2.5/IPRATROPIUM 0.5 INH SOL 3 ML VIAL.NEB. NEB SCH (14:41)
[2024-01-15] MEDS: DEXTROSE 5%-NORMAL SALINE 1,000 ML IV SCH (16:00)
[2024-01-15] MEDS: DEXTROSE 50%-WATER 25 GM/50 ML DISP.SYRIN IVPUSH ONE (16:10)
[2024-01-15 17:53] LABS: ALBUMIN 2.8 g/dl (3.4-5.0); ALK PHOS 94 U/L (45-117); ANION GAP 16 mmol/L (4-13); BILIRUBIN,TOTAL 0.7 mg/dL (0.2-1); BLOOD UREA NITROGEN 39.4 mg/dL (7-18); CALCIUM 8.3 mg/dL (8.5-10.1); CHLORIDE 101 mmol/L (98-107); CO2 21 mmol/L (21-32); GLUCOSE,RANDOM 115 mg/dL (74-106); MAGNESIUM 2.4 mg/dL (1.8-2.4); PHOSPHOROUS 8.3 mg/dL (2.5-4.9); POTASSIUM 4.6 mmol/L (3.5-5.1); SGOT/AST 21 U/L (15-37); SGPT/ALT 8 U/L (13-61); SODIUM 137 mmol/L (136-145); TOT PROT 6.3 g/dl (6.4-8.2)
[2024-01-15 18:13] LABS: ALBUMIN 2.7 g/dl (3.4-5.0); ALK PHOS 93 U/L (45-117); ANION GAP 15 mmol/L (4-13); BILIRUBIN,TOTAL 0.7 mg/dL (0.2-1); BLOOD UREA NITROGEN 39.7 mg/dL (7-18); CALCIUM 8.1 mg/dL (8.5-10.1); CHLORIDE 99 mmol/L (98-107); CO2 22 mmol/L (21-32); CREATININE 10.9 mg/dL (0.55-1.3); GLUCOSE,RANDOM 110 mg/dL (74-106); POTASSIUM 4.6 mmol/L (3.5-5.1); SGOT/AST 21 U/L (15-37); SGPT/ALT 6 U/L (13-61); SODIUM 136 mmol/L (136-145); TOT PROT 6.2 g/dl (6.4-8.2)
[2024-01-15] MEDS ORDERED: FENTANYL NS IVPB 500 MCG/100 ML BAG IVPB ONE (18:21)
[2024-01-15 19:30] VITALS: BP 107/66; PULSE 101; RESP 20; TEMP 100.3
[2024-01-15] MEDS ORDERED: PNEUMOC 20-VAL CONJ-DIP CRM/PF 0.5 ML SYRINGE IM ONE (22:44)
== END 2024-01-15 19:15 | disposition short-term general hospital (02) | DRG 314 ==
LOC: JER 09:09 → JERBED 11:22 → JICU 14:07
PROVIDERS: ADMIT Internal Medicine Pulmonary Disease; ATTEND Internal Medicine Pulmonary Disease
PROC: 0BH18EZ Insertion of Endotracheal Airway into Trachea, Via Natural or Artificial Opening Endoscopic (ICD-10-PCS; principal; 2024-01-14)
PROC: 5A1945Z Respiratory Ventilation, 24-96 Consecutive Hours (ICD-10-PCS; 2024-01-14)
PROC: 5A1D70Z Performance of Urinary Filtration, Intermittent, Less than 6 Hours Per Day (ICD-10-PCS; 2024-01-14)
PROC: 4A133B1 Monitoring of Arterial Pressure, Peripheral, Percutaneous Approach (ICD-10-PCS; 2024-01-15)
PROC: 4A133J1 Monitoring of Arterial Pulse, Peripheral, Percutaneous Approach (ICD-10-PCS; 2024-01-15)
PROC: 06HM33Z Insertion of Infusion Device into Right Femoral Vein, Percutaneous Approach (ICD-10-PCS; 2024-01-15)
PROC: B54BZZA Ultrasonography of Right Lower Extremity Veins, Guidance (ICD-10-PCS; 2024-01-15)
DX: T82.858A Stenosis of other vascular prosthetic devices, implants and grafts, initial encounter (principal); J18.9 Pneumonia, unspecified organism; J96.01 Acute respiratory failure with hypoxia; N18.6 End stage renal disease; I13.2 Hypertensive heart and chronic kidney disease with heart failure and with stage 5 chronic kidney disease, or end stage renal disease; J98.11 Atelectasis; I50.9 Heart failure, unspecified; K21.9 Gastro-esophageal reflux disease without esophagitis; R60.0 Localized edema; D64.9 Anemia, unspecified; K29.70 Gastritis, unspecified, without bleeding; Z99.2 Dependence on renal dialysis; K59.00 Constipation, unspecified; Z87.11 Personal history of peptic ulcer disease; K57.90 Diverticulosis of intestine, part unspecified, without perforation or abscess without bleeding; Y83.8 Other surgical procedures as the cause of abnormal reaction of the patient, or of later complication, without mention of misadventure at the time of the procedure
CPT/HCPCS: 0241U-QW; 36415; 36600; 70360-TC-FY; 70496-TC; 70498-TC; 71045-TC-FY; 71275-TC; 80053; 81241; 82803; 82962; 83090; 83735; 84100; 84484; 85025; 85027; 85240; 85300; 85303; 85520; 85610; 85613; 85730; 85732; 86704; 86803; 87040; 87340; 87517; 93005; 93010; 94002; 94640; 99285-25; J1644; Q9967

== ENCOUNTER 2024-04-14 13:18 | Emergency (ER) | payer OTHER ==
[2024-04-14 13:35] VITALS: BP 107/67; PULSE 100; RESP 17; TEMP 98.7; BMI 24.6
[2024-04-14] MEDS ORDERED: diphenhydrAMINE HCL 25 MG CAPSULE (FP) PO ONE (14:12)
[2024-04-14] MEDS ORDERED: FAMOTIDINE 20 MG TABLET ONE (14:12)
[2024-04-14] MEDS: diphenhydrAMINE HCL 25 MG CAPSULE (FP) PO ONE (14:14)
[2024-04-14] MEDS: FAMOTIDINE 20 MG TABLET PO ONE (14:14)
== END 2024-04-14 14:42 | disposition home or self-care (01) ==
LOC: JERFT 13:18
DX: L50.9 Urticaria, unspecified (principal)
CPT/HCPCS: 99283-25

== ENCOUNTER 2024-09-14 12:19 | Emergency (ER) | payer OTHER ==
[2024-09-14 12:44] VITALS: BP 139/72; PULSE 85; RESP 18; TEMP 97.6; BMI 27.1
[2024-09-14] MEDS ORDERED: AMOX TR/POT CLAV 500MG/125MG TABLETS (FP) ONE (13:45)
[2024-09-14] MEDS: AMOX TR/POT CLAV 500MG/125MG TABLETS (FP) PO ONE (13:47)
== END 2024-09-14 13:54 | disposition home or self-care (01) ==
LOC: JERFT 12:19
PROC: 0H96XZZ Drainage of Back Skin, External Approach (ICD-10-PCS; principal; 2024-09-14)
DX: L02.821 Furuncle of head [any part, except face] (principal)
CPT/HCPCS: 99283-25

== ENCOUNTER 2024-11-27 11:17 | Inpatient (IN) | payer OTHER ==
[2024-11-27 11:54] VITALS: BMI 23.6
[2024-11-27 12:23] LABS: BASO % 1.5 % (0-2.0); EOS % 5.1 % (0-4.5); HEMATOCRIT 37.6 % (35.4-49); HEMOGLOBIN 12.4 GM/dL (11.7-16.9); LYMPH % 8.9 % (8-40); MCH 29.3 pg (25.7-33.7); MEAN CELL VOLUME 88.7 fl (80-96); MEAN PLT VOLUME 7.3 fl (7.5-11.1); MONO % 14.4 % (3.8-10.2); NEUT % 70.1 % (42.8-82.8); PLATELET COUNT 233 10^3/uL (134-434); RBC 4.24 M/mm3 (4.00-5.60); RDW 15.3 % (11.9-15.9); WHITE BLOOD COUNT 5.2 K/mm3 (4.0-10.0)
[2024-11-27 12:44] LABS: CHLORIDE 98 mmol/L (98-107); SODIUM 132 mmol/L (136-145)
[2024-11-27 12:45] LABS: CALCIUM 8.6 mg/dL (8.5-10.1)
[2024-11-27 12:46] LABS: ALBUMIN 3.2 g/dl (3.4-5.0); BLOOD UREA NITROGEN 14.1 mg/dL (7-18); CO2 32 mmol/L (21-32); GLUCOSE,RANDOM 151 mg/dL (74-106)
[2024-11-27 12:49] LABS: CREATININE 5.9 mg/dL (0.55-1.3)
[2024-11-27 12:51] LABS: BILIRUBIN,TOTAL 0.4 mg/dL (0.2-1); TOT PROT 7.7 g/dl (6.4-8.2)
[2024-11-27 12:52] LABS: ALK PHOS 55 U/L (45-117)
[2024-11-27 12:54] LABS: N-TERMINAL BNP 7171.6 pg/ml (5-125)
[2024-11-27 12:55] LABS: ANION GAP 2 mmol/L (4-13); POTASSIUM 8.8 mmol/L (3.5-5.1); SGOT/AST 80 U/L (15-37); SGPT/ALT 20 U/L (13-61)
[2024-11-27 14:07] LABS: POTASSIUM 3.8 mmol/L (3.5-5.1)
[2024-11-27 14:09] LABS: CALCIUM 8.6 mg/dL (8.5-10.1)
[2024-11-27 14:10] LABS: BLOOD UREA NITROGEN 14.1 mg/dL (7-18)
[2024-11-27 14:13] LABS: CREATININE 6.1 mg/dL (0.55-1.3)
[2024-11-27] MEDS ORDERED: HEPARIN NA (PORCINE) 5,000 UNITS/ML 1ML VIAL SQ SCH (22:00)
[2024-11-27] MEDS: APIXABAN 5 MG TABLET PO SCH (22:10)
[2024-11-28] MEDS: CALCIUM ACETATE 667 MG CAPSULE (FP) PO SCH (09:48)
[2024-11-28] MEDS: metoPROLOL SUCCINATE 25 MG TAB.SR.24H (FP) PO SCH (09:48)
[2024-11-28] MEDS: ASPIRIN 81 MG CHEWABLE TABLETS PO SCH (09:48)
[2024-11-28] MEDS ORDERED: SODIUM CHLORIDE 250 ML IV PRN (13:22)
[2024-11-29 08:43] LABS: BASO % 1.3 % (0-2.0); EOS % 2.5 % (0-4.5); HEMATOCRIT 38.8 % (35.4-49); HEMOGLOBIN 12.3 GM/dL (11.7-16.9); LYMPH % 23.1 % (8-40); MCH 28.7 pg (25.7-33.7); MCHC 31.8 g/dl (32.0-35.9); MEAN CELL VOLUME 90.3 fl (80-96); MONO % 18.8 % (3.8-10.2); NEUT % 54.3 % (42.8-82.8); PLATELET COUNT 217 10^3/uL (134-434); RDW 14.8 % (11.9-15.9); WHITE BLOOD COUNT 5.6 K/mm3 (4.0-10.0)
[2024-11-29 09:06] LABS: CHLORIDE 101 mmol/L (98-107); POTASSIUM 4.9 mmol/L (3.5-5.1); SODIUM 139 mmol/L (136-145)
[2024-11-29 09:11] LABS: SGOT/AST 30 U/L (15-37)
[2024-11-29 09:12] LABS: ALBUMIN 3.3 g/dl (3.4-5.0)
[2024-11-29 09:16] LABS: ANION GAP 11 mmol/L (4-13); CO2 27 mmol/L (21-32); GLUCOSE,RANDOM 58 mg/dL (74-106); SGPT/ALT 11 U/L (13-61)
[2024-11-29 09:18] LABS: CREATININE 11.3 mg/dL (0.55-1.3); TOT PROT 6.8 g/dl (6.4-8.2)
[2024-11-29 09:19] LABS: ALK PHOS 54 U/L (45-117)
[2024-11-29 09:22] LABS: BILIRUBIN,TOTAL 0.5 mg/dL (0.2-1)
[2024-11-29] MEDS: FUROSEMIDE 40 MG/4 ML INJECTABLE VIAL IVPUSH SCH (10:11)
[2024-11-29] MEDS: CALCIUM ACETATE 667 MG CAPSULE (FP) PO SCH (17:54)
[2024-11-29] MEDS: APIXABAN 5 MG TABLET PO SCH (21:49)
[2024-11-30 08:12] LABS: EOS % 6.2 % (0-4.5); HEMATOCRIT 35.6 % (35.4-49); LYMPH % 30.5 % (8-40); MCH 29.9 pg (25.7-33.7); MCHC 33.7 g/dl (32.0-35.9); MEAN CELL VOLUME 88.7 fl (80-96); MEAN PLT VOLUME 8.1 fl (7.5-11.1); MONO % 17.8 % (3.8-10.2); NEUT % 44.5 % (42.8-82.8); PLATELET COUNT 217 10^3/uL (134-434); RBC 4.01 M/mm3 (4.00-5.60); RDW 14.8 % (11.9-15.9); WHITE BLOOD COUNT 4.6 K/mm3 (4.0-10.0)
[2024-11-30 08:34] LABS: CHLORIDE 100 mmol/L (98-107); POTASSIUM 5.2 mmol/L (3.5-5.1); SODIUM 140 mmol/L (136-145)
[2024-11-30 08:37] LABS: CALCIUM 8.8 mg/dL (8.5-10.1)
[2024-11-30 08:38] LABS: ANION GAP 9 mmol/L (4-13); BLOOD UREA NITROGEN 58.2 mg/dL (7-18); CO2 31 mmol/L (21-32); GLUCOSE,RANDOM 87 mg/dL (74-106)
[2024-11-30 08:41] LABS: SGOT/AST 21 U/L (15-37); SGPT/ALT 8 U/L (13-61)
[2024-11-30 08:42] LABS: BILIRUBIN,TOTAL 0.5 mg/dL (0.2-1)
[2024-11-30 08:43] LABS: TOT PROT 6.5 g/dl (6.4-8.2)
[2024-11-30 08:44] LABS: ALK PHOS 52 U/L (45-117)
[2024-11-30 08:53] LABS: CREATININE 13.7 mg/dL (0.55-1.3)
[2024-11-30] MEDS ORDERED: REGADENOSON 0.4 MG/5 ML PRE-FILLED SYRINGE IVPUSH ONE (08:54)
[2024-11-30] MEDS: REGADENOSON 0.4 MG/5 ML PRE-FILLED SYRINGE IVPUSH ONE (10:40)
[2024-11-30] MEDS: HEPARIN NA (PORCINE) 5,000 UNITS/ML 1ML VIAL IVPUSH ONE (11:40)
[2024-11-30] MEDS: SODIUM ZIRCONIUM CYCLOSILICATE (LOKELMA) 5 GM PACKET PO SCH (11:45)
[2024-11-30] MEDS: metoPROLOL SUCCINATE 25 MG TAB.SR.24H (FP) PO SCH (13:58)
[2024-11-30] MEDS: ASPIRIN 81 MG CHEWABLE TABLETS PO SCH (13:59)
[2024-11-30] MEDS: ALBUTEROL SO4 2.5/IPRATROPIUM 0.5 INH SOL 3 ML VIAL.NEB. NEB SCH (15:35)
[2024-12-01 09:26] VITALS: RESP 15
[2024-12-01] MEDS ORDERED: SODIUM CHLORIDE 250 ML IV PRN (12:22)
[2024-12-01 14:56] VITALS: BP 143/87; PULSE 70; TEMP 98.8
[2024-12-02] MEDS ORDERED: HEPARIN NA (PORCINE) 5,000 UNITS/ML 1ML VIAL IVPUSH ONE (12:22)
== END 2024-12-01 15:58 | disposition home or self-care (01) | DRG 640 ==
LOC: JER 11:17 → JERBED 15:17 → J7W 18:17 → J4S 21:56
PROVIDERS: ADMIT Family Medicine; ATTEND Family Medicine
PROC: 5A1D70Z Performance of Urinary Filtration, Intermittent, Less than 6 Hours Per Day (ICD-10-PCS; principal; 2024-11-30)
DX: E87.70 Fluid overload, unspecified (principal); N18.6 End stage renal disease; I13.2 Hypertensive heart and chronic kidney disease with heart failure and with stage 5 chronic kidney disease, or end stage renal disease; I24.89 Other forms of acute ischemic heart disease; E78.5 Hyperlipidemia, unspecified; Z99.2 Dependence on renal dialysis
CPT/HCPCS: 36415; 71045-TC-FY; 71250-TC; 78452-TC; 80048; 80053; 83880; 84484; 85025; 86705; 86803; 87340; 93005; 93010; 93017; 93306-TC; 94640; 99285-25; A9502; J1644; J2785

== ENCOUNTER 2024-12-16 10:56 | Emergency (ER) | payer OTHER ==
[2024-12-16 12:40] VITALS: RESP 18; TEMP 98; BMI 22.8
[2024-12-16 12:43] LABS: BASO % 1.3 % (0-2.0); EOS % 10.4 % (0-4.5); HEMOGLOBIN 10.1 GM/dL (11.7-16.9); LYMPH % 22.6 % (8-40); MCH 28.8 pg (25.7-33.7); MCHC 32.7 g/dl (32.0-35.9); MEAN CELL VOLUME 88.1 fl (80-96); MEAN PLT VOLUME 6.9 fl (7.5-11.1); MONO % 11.7 % (3.8-10.2); PLATELET COUNT 267 10^3/uL (134-434); RBC 3.52 M/mm3 (4.00-5.60); RDW 15.6 % (11.9-15.9); WHITE BLOOD COUNT 4.5 K/mm3 (4.0-10.0)
[2024-12-16 13:05] LABS: POTASSIUM 3.5 mmol/L (3.5-5.1)
[2024-12-16 13:06] LABS: CALCIUM 8.8 mg/dL (8.5-10.1)
[2024-12-16 13:07] LABS: ALBUMIN 3.1 g/dl (3.4-5.0); BLOOD UREA NITROGEN 13.4 mg/dL (7-18)
[2024-12-16 13:10] LABS: CREATININE 4.5 mg/dL (0.55-1.3)
[2024-12-16 13:12] LABS: BILIRUBIN,TOTAL 0.4 mg/dL (0.2-1); TOT PROT 6.8 g/dl (6.4-8.2)
[2024-12-16] MEDS ORDERED: FAMOTIDINE 20 MG TABLET ONE (13:23)
[2024-12-16] MEDS ORDERED: diphenhydrAMINE HCL 25 MG CAPSULE (FP) PO ONE (13:23)
[2024-12-16] MEDS: FAMOTIDINE 20 MG TABLET PO ONE (13:26)
[2024-12-16] MEDS: diphenhydrAMINE HCL 50 MG CAPSULE PO ONE (13:27)
[2024-12-16 14:50] VITALS: BP 139/84; PULSE 68
== END 2024-12-16 14:50 | disposition home or self-care (01) ==
LOC: JER 10:56
DX: L29.9 Pruritus, unspecified (principal); R21 Rash and other nonspecific skin eruption
CPT/HCPCS: 36415; 80053; 83735; 85025; 99283-25

== ENCOUNTER 2025-01-07 20:38 | Inpatient (IN) | payer OTHER ==
[2025-01-07] MEDS ORDERED: ALBUTEROL SO4 2.5/IPRATROPIUM 0.5 INH SOL 3 ML VIAL.NEB. NEB ONE ×2 (21:42→23:34)
[2025-01-07] MEDS ORDERED: methylPREDNISolone NA SUCC 125 MG/2 ML VIAL ONE ×2 (21:42→21:46)
[2025-01-07] MEDS: ALBUTEROL SO4 2.5/IPRATROPIUM 0.5 INH SOL 3 ML VIAL.NEB. NEB ONE ×2 (22:07→23:38)
[2025-01-07] MEDS: methylPREDNISolone NA SUCC 125 MG/2 ML VIAL IVPUSH ONE (22:07)
[2025-01-07 22:17] LABS: BASO % 0.9 % (0-2.0); HEMATOCRIT 37.4 % (35.4-49); HEMOGLOBIN 12.1 GM/dL (11.7-16.9); LYMPH % 8.5 % (8-40); MCH 28.8 pg (25.7-33.7); MCHC 32.3 g/dl (32.0-35.9); MEAN CELL VOLUME 89.1 fl (80-96); MEAN PLT VOLUME 8.1 fl (7.5-11.1); MONO % 12.9 % (3.8-10.2); NEUT % 74.7 % (42.8-82.8); PLATELET COUNT 250 10^3/uL (134-434); RBC 4.19 M/mm3 (4.00-5.60); RDW 16.1 % (11.9-15.9); WHITE BLOOD COUNT 8.2 K/mm3 (4.0-10.0)
[2025-01-07 22:27] LABS: INR 1.17 (0.83-1.09); PROTHROMBIN TIME (PATIENT) 12.9 SEC (9.7-13.0)
[2025-01-07 22:29] LABS: ACTIVATED PTT 34.7 SECONDS (25.2-36.5)
[2025-01-07 22:34] LABS: VENOUS BASE EXCESS 2.5 mmol/L (-2-2); VENOUS O2 SATURATION 42.1 % (70-80); VENOUS PCO2 60.6 mmHg (38-52); VENOUS PH 7.315 (7.310-7.410)
[2025-01-07 23:00] LABS: CHLORIDE 100 mmol/L (98-107); POTASSIUM 4.3 mmol/L (3.5-5.1); SODIUM 139 mmol/L (136-145)
[2025-01-07 23:01] LABS: BLOOD UREA NITROGEN 28.7 mg/dL (7-18); CALCIUM 9.2 mg/dL (8.5-10.1)
[2025-01-07 23:03] LABS: ALBUMIN 3.5 g/dl (3.4-5.0); ANION GAP 9 mmol/L (4-13); CO2 31 mmol/L (21-32); GLUCOSE,RANDOM 103 mg/dL (74-106); MAGNESIUM 2.1 mg/dL (1.8-2.4)
[2025-01-07 23:06] LABS: BILIRUBIN,TOTAL 0.5 mg/dL (0.2-1); SGOT/AST 15 U/L (15-37); SGPT/ALT 9 U/L (13-61)
[2025-01-07 23:07] LABS: TOT PROT 7.5 g/dl (6.4-8.2)
[2025-01-07 23:08] LABS: ALK PHOS 56 U/L (45-117)
[2025-01-07 23:09] LABS: CREATININE 10.3 mg/dL (0.55-1.3)
[2025-01-08] MEDS ORDERED: HEPARIN NA (PORCINE) 5,000 UNITS/ML 1ML VIAL IVPUSH PRN ×2 (00:28)
[2025-01-08] MEDS ORDERED: HEPARIN INFUSION - 25,000 UNITS/500 ML INFUS.BAG IVPB ONE (01:08)
[2025-01-08] MEDS: ALBUTEROL SO4 2.5/IPRATROPIUM 0.5 INH SOL 3 ML VIAL.NEB. NEB SCH ×2 (01:17→15:29)
[2025-01-08] MEDS: HEPARIN NA (PORCINE) 5,000 UNITS/ML 1ML VIAL IVPUSH ONE (01:17)
[2025-01-08] MEDS ORDERED: ALBUTEROL SO4 2.5/IPRATROPIUM 0.5 INH SOL 3 ML VIAL.NEB. NEB PRN (02:12)
[2025-01-08] MEDS: HEPARIN INFUSION - 25,000 UNITS/500 ML INFUS.BAG IVPB SCH (02:18)
[2025-01-08 08:38] LABS: CHOLESTEROL 124 mg/dL (50-200); HDL CHOLESTEROL 42 mg/dL (40-60); LDL CHOLESTEROL (ONLY SJRH) 72 mg/dL (5-100)
[2025-01-08] MEDS ORDERED: SODIUM CHLORIDE 250 ML IV PRN (10:54)
[2025-01-08] MEDS: metoPROLOL SUCCINATE 25 MG TAB.SR.24H (FP) PO SCH (11:06)
[2025-01-08] MEDS: ASPIRIN 81 MG CHEWABLE TABLETS PO SCH (11:06)
[2025-01-08] MEDS ORDERED: ALBUTEROL SO4 0.083% IH SOL 2.5 MG/3 ML VIAL.NEB. NEB PRN (13:28)
[2025-01-08 13:49] LABS: HEMATOCRIT 37.8 % (35.4-49); HEMOGLOBIN 12.6 GM/dL (11.7-16.9); MCH 28.9 pg (25.7-33.7); MCHC 33.2 g/dl (32.0-35.9); MEAN PLT VOLUME 7.9 fl (7.5-11.1); PLATELET COUNT 245 10^3/uL (134-434); RBC 4.34 M/mm3 (4.00-5.60); RDW 15.9 % (11.9-15.9); WHITE BLOOD COUNT 11.4 K/mm3 (4.0-10.0)
[2025-01-08 14:14] LABS: POTASSIUM 3.3 mmol/L (3.5-5.1)
[2025-01-08 14:16] LABS: CALCIUM 8.9 mg/dL (8.5-10.1)
[2025-01-08 14:17] LABS: ALBUMIN 3.8 g/dl (3.4-5.0); BLOOD UREA NITROGEN 21.8 mg/dL (7-18)
[2025-01-08 14:21] LABS: CREATININE 6.8 mg/dL (0.55-1.3)
[2025-01-08 14:22] LABS: BILIRUBIN,TOTAL 0.5 mg/dL (0.2-1); TOT PROT 7.8 g/dl (6.4-8.2)
[2025-01-08] MEDS: methylPREDNISolone NA SUCC 40 MG/1 ML VIAL IVPUSH SCH (17:48)
[2025-01-09] MEDS: PANTOPRAZOLE 40 MG TABLET PO SCH (10:42)
[2025-01-09 12:01] VITALS: BMI 20.9
[2025-01-09] MEDS: APIXABAN 5 MG TABLET PO SCH (21:23)
[2025-01-10] MEDS: VITAMIN B COMP W-C 1 EA TABLET (NEPHRO-VITE) PO SCH (10:03)
[2025-01-10] MEDS: predniSONE 20 MG TABLET (UD) PO SCH (10:03)
[2025-01-10] MEDS ORDERED: SODIUM CHLORIDE 250 ML IV PRN (12:46)
[2025-01-11 09:49] VITALS: RESP 18
[2025-01-11 12:05] VITALS: TEMP 97.8
[2025-01-11 15:17] VITALS: BP 121/67; PULSE 82
== END 2025-01-11 18:08 | disposition left against medical advice (07) | DRG 280 ==
LOC: JER 20:38 → JERBED 23:29 → J4W 01-08 02:05
PROVIDERS: ADMIT Student in an Organized Health Care Education/Training Program; ATTEND Family Medicine
PROC: 5A1D70Z Performance of Urinary Filtration, Intermittent, Less than 6 Hours Per Day (ICD-10-PCS; principal; 2025-01-11)
DX: I13.2 Hypertensive heart and chronic kidney disease with heart failure and with stage 5 chronic kidney disease, or end stage renal disease (principal); N18.6 End stage renal disease; I21.4 Non-ST elevation (NSTEMI) myocardial infarction; J44.1 Chronic obstructive pulmonary disease with (acute) exacerbation; J45.901 Unspecified asthma with (acute) exacerbation; E44.0 Moderate protein-calorie malnutrition; I73.9 Peripheral vascular disease, unspecified; Z99.2 Dependence on renal dialysis; Z68.21 Body mass index [BMI] 21.0-21.9, adult; I50.32 Chronic diastolic (congestive) heart failure
CPT/HCPCS: 36415; 70491-TC; 71045-TC-FY; 71046-TC-FY; 71250-TC; 74230-TC-FY; 80053; 80061; 82803; 83735; 83880; 84484; 85025; 85027; 85610; 85730; 87340; 92611-GN; 93005; 93010; 94640; 97116-GP; 97162-GP; 99285-25; J1644

== ENCOUNTER 2025-03-28 06:12 | Observation (INO) | payer OTHER ==
[2025-03-28 06:22] VITALS: BMI 23.6
[2025-03-28] MEDS: SODIUM CHLORIDE 0.9% 500 ML INFUS.BAG IV ONE (07:15)
[2025-03-28 09:15] LABS: VENOUS BASE EXCESS 2.4 mmol/L (-2-2); VENOUS O2 SATURATION 32.7 % (70-80); VENOUS PCO2 62.3 mmHg (38-52); VENOUS PH 7.303 (7.310-7.410)
[2025-03-28 09:20] LABS: ABSOLUTE IMMATURE GRANULOCYTES 0.03 x10^3/uL (0.0-0.031); BASOPHILS # 0.07 x10^3/uL (0.01-0.08); EOSINOPHIL % 19.1 % (0.8-7.0); EOSINOPHILS # 1.35 x10^3/uL (0.04-0.54); HEMATOCRIT 34.5 % (40.1-51.0); MCHC 31.9 g/dl (32.3-36.5); MEAN CELL VOLUME 90.6 fl (79.0-92.2); MEAN PLT VOLUME 9.4 fl (9.4-12.4); MONOCYTE # 0.67 x10^3/uL (0.30-0.82); MONOCYTE % 9.5 % (5.3-12.2); PLATELET COUNT 279 x10^3/uL (163-337); RDW 15.1 % (12.2-16.4)
[2025-03-28 09:39] LABS: CHLORIDE 102 mmol/L (98-107); POTASSIUM 4.2 mmol/L (3.5-5.1); SODIUM 142 mmol/L (136-145)
[2025-03-28 09:41] LABS: CALCIUM 9.6 mg/dL (8.5-10.1)
[2025-03-28 09:42] LABS: ALBUMIN 3.4 g/dl (3.4-5.0); ANION GAP 9 mmol/L (4-13); BLOOD UREA NITROGEN 33.4 mg/dL (7-18); CO2 31 mmol/L (21-32); GLUCOSE,RANDOM 53 mg/dL (74-106)
[2025-03-28 09:45] LABS: SGOT/AST 26 U/L (15-37); SGPT/ALT 14 U/L (13-61)
[2025-03-28 09:46] LABS: BILIRUBIN,TOTAL 0.4 mg/dL (0.2-1); TOT PROT 6.7 g/dl (6.4-8.2)
[2025-03-28 09:49] LABS: ALK PHOS 41 U/L (45-117); CREATININE 10.8 mg/dL (0.55-1.3)
[2025-03-28] MEDS ORDERED: SODIUM CHLORIDE 250 ML IV PRN (14:17)
[2025-03-29] MEDS: ALBUTEROL SO4 2.5/IPRATROPIUM 0.5 INH SOL 3 ML VIAL.NEB. NEB SCH (08:30)
[2025-03-29 09:45] LABS: HEMATOCRIT 39.4 % (40.1-51.0); MEAN CELL VOLUME 88.7 fl (79.0-92.2); MEAN PLT VOLUME 9.5 fl (9.4-12.4); PLATELET COUNT 323 x10^3/uL (163-337); RDW 14.6 % (12.2-16.4)
[2025-03-29 09:46] LABS: ABSOLUTE IMMATURE GRANULOCYTES 0.02 x10^3/uL (0.0-0.031); BASOPHILS # 0.08 x10^3/uL (0.01-0.08); EOSINOPHIL % 16.3 % (0.8-7.0); EOSINOPHILS # 1.27 x10^3/uL (0.04-0.54); HEMATOCRIT 39.2 % (40.1-51.0); HEMOGLOBIN 13.1 g/dL (13.7-17.5); MCHC 33.4 g/dl (32.3-36.5); MEAN CELL VOLUME 87.7 fl (79.0-92.2); MEAN PLT VOLUME 9.8 fl (9.4-12.4); MONOCYTE # 0.76 x10^3/uL (0.30-0.82); MONOCYTE % 9.8 % (5.3-12.2); PLATELET COUNT 337 x10^3/uL (163-337)
[2025-03-29 10:13] LABS: CHLORIDE 102 mmol/L (98-107); POTASSIUM 4.5 mmol/L (3.5-5.1); SODIUM 141 mmol/L (136-145)
[2025-03-29 10:38] LABS: CALCIUM 9.7 mg/dL (8.5-10.1)
[2025-03-29 10:39] LABS: ALBUMIN 3.6 g/dl (3.4-5.0); ANION GAP 11 mmol/L (4-13); BLOOD UREA NITROGEN 41.8 mg/dL (7-18); CO2 28 mmol/L (21-32); GLUCOSE,RANDOM 83 mg/dL (74-106)
[2025-03-29 10:43] LABS: SGOT/AST 23 U/L (15-37); SGPT/ALT 11 U/L (13-61)
[2025-03-29 10:44] LABS: BILIRUBIN,TOTAL 0.6 mg/dL (0.2-1); TOT PROT 7.2 g/dl (6.4-8.2)
[2025-03-29 10:45] LABS: ALK PHOS 52 U/L (45-117)
[2025-03-29 12:49] LABS: HEPATITIS B SURF AG NON-MATERN NON-REACTIVE (NONREACTIVE)
[2025-03-29 13:18] LABS: HCV DIAGNOSTIC IN-HOUSE W/RFLX NON-REACTIVE (NONREACTIVE)
[2025-03-29] MEDS: APIXABAN 5 MG TABLET PO SCH (14:13)
[2025-03-29] MEDS: metoPROLOL SUCCINATE 25 MG TAB.SR.24H (FP) PO SCH (14:13)
[2025-03-29] MEDS: ASPIRIN 81 MG CHEWABLE TABLETS PO SCH (14:13)
[2025-03-29] MEDS: EPOETIN ALFA-EPBX 4,000 UNIT/ML VIAL IVPUSH ONE (14:48)
[2025-03-29] MEDS: ACETAMINOPHEN 325 MG TABLET (FP) PO PRN (19:35)
[2025-03-30 06:58] VITALS: RESP 18
[2025-03-30] MEDS: PERMETHRIN (NIX CREAM SCALP RINSE) 59 ML 1% BOTTLE TP ONE (10:52)
[2025-03-30] MEDS: MINERAL OIL/PET HY-PHL TOPICAL OINTMENT 454 GM JAR TP SCH (10:53)
[2025-03-30] MEDS ORDERED: SODIUM CHLORIDE 250 ML IV PRN (11:36)
[2025-03-30 13:19] VITALS: BP 98/64; PULSE 75; TEMP 97.3
== END 2025-03-30 13:07 | disposition home or self-care (01) ==
LOC: JER 06:12 → JERBED 13:32 → J7W 17:19
PROVIDERS: ADMIT Internal Medicine; ATTEND Internal Medicine
DX: R55 Syncope and collapse (principal); S01.511A Laceration without foreign body of lip, initial encounter; W18.39XA Other fall on same level, initial encounter; Y93.89 Activity, other specified; Y92.811 Bus as the place of occurrence of the external cause; I12.0 Hypertensive chronic kidney disease with stage 5 chronic kidney disease or end stage renal disease; I27.20 Pulmonary hypertension, unspecified; N18.6 End stage renal disease; Z99.2 Dependence on renal dialysis; I73.9 Peripheral vascular disease, unspecified; D64.9 Anemia, unspecified; K21.9 Gastro-esophageal reflux disease without esophagitis; Z87.19 Personal history of other diseases of the digestive system; E78.5 Hyperlipidemia, unspecified; K27.9 Peptic ulcer, site unspecified, unspecified as acute or chronic, without hemorrhage or perforation; Z59.19 Other inadequate housing; Z79.01 Long term (current) use of anticoagulants; F17.210 Nicotine dependence, cigarettes, uncomplicated
CPT/HCPCS: 36415; 70450-TC; 70486-TC; 71045-TC-FY; 72125-TC; 72170-TC-FY; 73562-TC-RT-FY; 80053; 80307; 82803; 82962; 83690; 84484; 85025; 85027; 86704; 86707; 86803; 87340; 93005; 93010; 94640; 99285-25; G0378

== ENCOUNTER 2025-04-05 01:10 | Emergency (ER) | payer OTHER ==
[2025-04-05 01:21] VITALS: TEMP 96.8; BMI 23.6
[2025-04-05 01:52] LABS: ABSOLUTE IMMATURE GRANULOCYTES 0.03 x10^3/uL (0.0-0.031); BASOPHILS # 0.11 x10^3/uL (0.01-0.08); EOSINOPHIL % 15.4 % (0.8-7.0); EOSINOPHILS # 1.15 x10^3/uL (0.04-0.54); HEMATOCRIT 33.5 % (40.1-51.0); MCHC 32.8 g/dl (32.3-36.5); MEAN CELL VOLUME 89.6 fl (79.0-92.2); MONOCYTE # 0.89 x10^3/uL (0.30-0.82); MONOCYTE % 11.9 % (5.3-12.2); PLATELET COUNT 325 x10^3/uL (163-337); RDW 15.3 % (12.2-16.4); VENOUS BASE EXCESS 2.4 mmol/L (-2-2); VENOUS O2 SATURATION 32.3 % (70-80); VENOUS PCO2 68.6 mmHg (38-52); VENOUS PH 7.272 (7.310-7.410)
[2025-04-05 02:00] LABS: INR 0.99 (0.83-1.09); PROTHROMBIN TIME (PATIENT) 10.8 SEC (9.7-13.0)
[2025-04-05 02:03] VITALS: BP 128/87
[2025-04-05 02:03] LABS: ACTIVATED PTT 35.1 SECONDS (25.2-36.5)
[2025-04-05 02:51] LABS: CHLORIDE 102 mmol/L (98-107); POTASSIUM 4.8 mmol/L (3.5-5.1); SODIUM 143 mmol/L (136-145)
[2025-04-05 02:53] LABS: CALCIUM 9.2 mg/dL (8.5-10.1)
[2025-04-05 02:54] LABS: ALBUMIN 3.4 g/dl (3.4-5.0); ANION GAP 9 mmol/L (4-13); BLOOD UREA NITROGEN 41.8 mg/dL (7-18); CO2 32 mmol/L (21-32); GLUCOSE,RANDOM 75 mg/dL (74-106)
[2025-04-05 02:57] LABS: SGOT/AST 19 U/L (15-37); SGPT/ALT 12 U/L (13-61)
[2025-04-05 02:59] LABS: BILIRUBIN,TOTAL 0.4 mg/dL (0.2-1); TOT PROT 6.8 g/dl (6.4-8.2)
[2025-04-05 03:00] LABS: ALK PHOS 43 U/L (45-117)
[2025-04-05 03:02] LABS: N-TERMINAL BNP 9165.1 pg/ml (5-125)
[2025-04-05 03:14] LABS: CREATININE 11.7 mg/dL (0.55-1.3)
[2025-04-05 03:56] VITALS: PULSE 62; RESP 19
== END 2025-04-05 04:18 | disposition home or self-care (01) ==
LOC: JER 01:10
DX: R06.02 Shortness of breath (principal); R79.89 Other specified abnormal findings of blood chemistry
CPT/HCPCS: 0241U-QW; 36415; 71045-TC-FY; 80053; 82803; 83880; 84484; 85025; 85610; 85730; 86850; 86900; 86901; 93005; 93010; 99285-25